=== PATIENT | female | born 1950 | race African-American/Black ===

== ENCOUNTER 2020-05-01 12:38 | Inpatient (IN) | payer OTHER ==
[2020-05-01] MEDS ORDERED: SODIUM CHLORIDE 1,000 ML IV STA ×2 (12:49→18:01)
[2020-05-01] MEDS ORDERED: ONDANSETRON 4 MG/2 ML VIAL IVPUSH ONE (12:49)
--- NOTE | 2020-05-01 12:49 | PDOC ---
Rapid Medical Evaluation Time Seen by Provider: 05/01/20 12:45 Medical Evaluation: 05/01/20 12:46 The patient presents to the ER for dyspghia, vomiting and dehydration. She was sent by Dr. Ramirez to be admitted. She states that she has a thyroid nodule which was diagnosed at [place]. Exam: epigastric discomfort Orders: labs, EKG, fluids, cxr; defer other imaging to provider Pt to proceed to the ER for further evaluation Discharge Disposition - Diagnosis Vomiting - Referrals - Patient Instructions - Post Discharge Activity
[2020-05-01] MEDS ORDERED: PANTOPRAZOLE SODIUM 40 MG VIAL IVPUSH ONE (14:31)
--- NOTE | 2020-05-01 15:07 | PDOC ---
History of Present Illness - General History Source: Patient Exam Limitations: No Limitations - History of Present Illness Initial Comments: 05/01/20 15:02 70-year-old female presents to the emergency room for evaluation of dysphasia weight loss, and weakness. Patient states over the past 4 months has lost 30 pounds and has been to [facility] for evaluation and was given PPIs and was told she had a hiatal hernia that needed to be followed up. Patient otherwise has no complaints of headache, chest pain, shortness of breath, fever or chills. Patient also has no complaints of abdominal pain dysuria or diarrhea. Patient does state intermittent dizziness with standing especially in the evening hours. Patient states when she drinks it feels like it stuck and shortly after intake will vomit. Patient also states the same for solids patient was also told she had a thyroid nodule based on ultrasound but denies any recommended follow-up Is this a multiple visit Asthma Patient?: No Timing/Duration: getting worse Severity: moderate Associated Symptoms: reports: loss of appetite, weakness <Leticia Aldana - Last Filed: 05/01/20 19:27> <Jake Grayson - Last Filed: 05/11/20 13:19> - General Chief Complaint: Dysphagia Stated Complaint: SENT BY PCP/VOMITING.NAUSEA Time Seen by Provider: 05/01/20 12:45 Past History - Travel History Traveled outside of the country in the last 30 days: No Close contact w/someone who was outside of country & ill: No - Medical History Asthma: Yes Cardiac Disorders: Yes (angina) COPD: No GI Disorders: Yes (GERD) HTN: Yes Hypercholesterolemia: Yes Psychiatric Problems: Yes (Anxiety) Thyroid Disease: Yes (thyroid nodules) - Immunization History Immunization Up to Date: Yes - Psycho-Social/Smoking History Patient Lives Alone: No Lives with/in: spouse/SO Smoking History: Never smoked - Substance Abuse Hx (Audit-C & DAST Scrn) How often the patient has a drink containing alcohol: Never Score: In Men: 4 or > Positive; In Women: 3 or > Positive: 0 Screen Result (Pos requires Nsg. Audit-10AR): Negative <Leticia Aldana - Last Filed: 05/01/20 19:27> <Jake Grayosn - Last Filed: 05/11/20 13:19> - Medical History Allergies/Adverse Reactions: Allergies Allergy/AdvReac Type Severity Reaction Status Date / Time amlodipine [From Norvasc] Allergy Verified 05/01/20 12:54 amoxicillin Allergy Verified 05/01/20 12:54 atorvastatin [From Lipitor] Allergy Verified 05/01/20 12:54 latex Allergy Verified 05/01/20 12:54 omeprazole Allergy Verified 05/01/20 12:54 Penicillins Allergy Verified 05/01/20 12:54 prochlorperazine Allergy Verified 05/01/20 12:54 [From Compazine] propranolol Allergy Verified 05/01/20 12:54 shellfish derived Allergy Verified 05/01/20 12:54 Sulfa (Sulfonamide Allergy Verified 05/01/20 12:54 Antibiotics) lactose AdvReac Verified 05/04/20 13:09 Review of Systems - Review of Systems Able to Perform ROS?: No Is the patient limited Kazakh proficient: No Constitutional: Yes: Loss of Appetite, Weakness, Weight Stable HEENTM: No: Symptoms Reported Respiratory: No: Symptoms reported Cardiac (ROS): No: Symptoms Reported ABD/GI: No: Symptoms Reported : No: Symptoms Reported Musculoskeletal: No: Symptoms Reported Integumentary: No: Symptoms Reported Neurological: No: Symptoms reported Endocrine: No: Symptoms Reported Hematologic/Lymphatic: No: Symptoms Reported <Leticia Aldana - Last Filed: 05/01/20 19:27> *Physical Exam - Vital Signs Last Vital Signs Temp Pulse Resp BP Pulse Ox 98.1 F 86 20 140/79 100 05/01/20 12:54 05/01/20 12:54 05/01/20 12:54 05/01/20 12:54 05/01/20 12:54 - Physical Exam General Appearance: Yes: Appropriately Dressed, Thin. No: Apparent Distress HEENT: negative: Pale Conjunctivae Neck: positive: Supple Respiratory/Chest: positive: Lungs Clear, Normal Breath Sounds. negative: Res piratory Distress, Accessory Muscle Use Cardiovascular: positive: Regular Rhythm, Regular Rate. negative: Murmur Gastrointestinal/Abdominal: positive: Soft. negative: Tenderness Extremity: positive: Normal Inspection Integumentary: positive: Normal Color, Dry, Warm Neurologic: positive: Motor Strength 5/5 (ambulatory) <Leticia Aldana - Last Filed: 05/01/20 19:27> - Vital Signs Last Vital Signs Temp Pulse Resp BP Pulse Ox 98.7 F 79 18 151/91 100 05/04/20 14:05 05/04/20 14:05 05/04/20 14:05 05/04/20 14:05 05/04/20 14:05 <Jake Grayson - Last Filed: 05/11/20 13:19> Heart Score/ECG Review - ECG Intrepretation Rhythm: Regular Rhythm (nsr 79, with pvc) <Leticia Aldana - Last Filed: 05/01/20 19:27> ED Treatment Course - LABORATORY CBC & Chemistry Diagram: 05/01/20 15:48 05/01/20 15:50 - RADIOLOGY Radiology Studies Ordered: Category Date Time Status NECK SOFT TISSUE [RAD] Stat Radiology 05/01/20 13:42 Ordered <Leticia Aldana - Last Filed: 05/01/20 19:27> - LABORATORY CBC & Chemistry Diagram: 05/04/20 09:44 05/04/20 09:44 - ADDITIONAL ORDERS Additional order review: 05/01/20 15:50 Urine Culture - Final Urine - Urine Clean Catch Normal Urogenital Aishwarya 05/01/20 15:48 RBC 5.16 MCV 78.4 L MCHC 31.1 L RDW 19.5 H MPV 8.9 Neutrophils % 51.2 Lymphocytes % 37.0 Monocytes % 8.8 Eosinophils % 1.1 Basophils % 1.9 - Medications Given in the ED: ED Medications Discontinued Medications Generic Name Dose Route Start Last Admin Trade Name Freq PRN Reason Stop Dose Admin Diphenhydramine HCl 25 mg 05/01/20 23:24 05/01/20 23:55 Benadryl Oral Solution - PO 05/01/20 23:25 25 mg ONCE ONE Administration Diphenhydramine HCl 25 mg 05/02/20 11:00 05/04/20 10:42 Benadryl Oral Solution - PO 25 mg TID PRN Administration ALLERGIES Sodium Chloride 1,000 mls @ 1,000 mls/hr 05/01/20 12:49 05/01/20 15:27 Normal Saline - IV 05/01/20 13:48 1,000 mls/hr ASDIR STA Administration Ceftriaxone Sodium 1 gm/ 50 mls @ 100 mls/hr 05/01/20 17:22 05/01/20 17:40 Dextrose IVPB 05/01/20 17:51 100 mls/hr ONCE ONE Administration Sodium Chloride 1,000 mls @ 1,000 mls/hr 05/01/20 18:01 05/01/20 19:38 Normal Saline - IV 05/01/20 19:00 1,000 mls/hr ASDIR STA Administration Sodium Chloride 1,000 mls @ 75 mls/hr 05/01/20 19:45 05/03/20 04:45 Normal Saline - IV 75 mls/hr ASDIR ELVIE Administration Ceftriaxone Sodium 1 gm/ 50 mls @ 100 mls/hr 05/02/20 10:00 05/04/20 09:52 Dextrose IVPB 100 mls/hr DAILY ELVIE Administration Protocol Potassium Chloride 10 meq in 100 mls @ 100 mls/hr 05/02/20 09:30 05/02/20 12:42 Potassium Chloride 10 Meq Premix Ivpb - IVPB 05/02/20 12:29 100 mls/hr Q60M ELVIE Administration Famotidine/Sodium Chloride 20 mg in 50 mls @ 100 mls/hr 05/02/20 22:00 04/06 10/24 09:51 Pepcid 20 Mg Premixed Ivpb - IVPB 100 mls/hr BID ELVIE Administration Potassium Chloride/Sodium Chloride 20 meq in 1,000 mls @ 75 mls/hr 05/03/20 12:45 05/04/20 04:28 1/2ns+20meq Kcl IV 75 mls/hr ASDIR ELVIE Administration Lorazepam 0.5 mg 05/01/20 23:44 05/01/20 23:55 Ativan Injection - IVPUSH 05/01/20 23:45 0.5 mg ONCE ONE Administration Lorazepam 0.5 mg 05/02/20 11:03 05/02/20 22:09 Ativan Injection - IM 0.5 mg Q6H PRN Administration ANXIETY Lorazepam 0.5 mg 05/03/20 20:34 05/03/20 21:10 Ativan Injection - IVPUSH 0.5 mg Q6H PRN Administration ANXIETY Melatonin 5 mg 05/01/20 20:15 05/01/20 21:48 Melatonin PO 05/01/20 20:16 Not Given ONCE ONE Mometasone Furoate 1 puff 05/02/20 22:00 05/02/20 12:23 Asmanex 220mcg - IH 1 puff BID ELVIE Administration Mometasone Furoate 1 puff 05/02/20 22:00 05/03/20 21:10 Asmanex 220mcg - IH Not Given HS ELVIE Nitroglycerin 0.3 mg 05/02/20 10:00 05/02/20 14:34 Nitro-Dur Patch - TD 0.3 mg DAILY ELVIE Administration Nitroglycerin 0.3 mg 05/02/20 15:30 05/04/20 09:53 Nitro-Dur Patch - TD 0.3 mg DAILY ELVIE Administration Ondansetron HCl 4 mg 05/01/20 12:49 05/01/20 15:27 Zofran Injection IVPUSH 05/01/20 12:50 4 mg ONCE ONE Administration Ondansetron HCl 4 mg 05/02/20 11:03 05/04/20 08:12 Zofran Injection IVPUSH 4 mg Q8H PRN Administration NAUSEA Pantoprazole Sodium 40 mg 05/01/20 14:31 05/01/20 15:27 Protonix Iv IVPUSH 05/01/20 14:32 40 mg ONCE ONE Administration Pantoprazole Sodium 40 mg 05/04/20 12:00 05/04/20 12:25 Protonix - PO Not Given DAILY ELVIE Potassium Chloride 40 meq 05/04/20 12:30 05/04/20 13:40 Potassium Chloride Oral Liquid PO 05/04/20 12:31 40 meq ONCE ONE Administration <Jake Grayson - Last Filed: 05/11/20 13:19> Medical Decision Making - Medical Decision Making 05/01/20 15:10 Chief complaint weight loss, poor appetite vomiting weakness over the past 4 months. Recently told she had a thyroid nodule along with a hiatal hernia and increased acid reflux Exam: Patient appears thin otherwise normal vital signs no abdominal tenderness distention or other acute findings. Plan: Labs, EKG, fluids thyroid stimulating hormone, and soft tissue neck. Will contact Dr. Ramirez who is requesting admission 05/01/20 17:24 called placed to pcp. I v ceftriaxone ordered. + UTI, u cx sent 05/01/20 17:25 Laboratory Tests 05/01/20 05/01/20 05/01/20 15:48 15:48 15:48 WBC 7.0 Hgb 12.6 Hct 40.5 RDW 19.5 H Plt Count 342 Absolute Neuts (auto) 3.6 Lymphocytes % 37.0 Monocytes % 8.8 PT with INR Pending INR Pending Sodium Potassium Chloride Carbon Dioxide Anion Gap BUN Est GFR (CKD-EPI)NonAf Lactic Acid Calcium Alkaline Phosphatase Total Protein Albumin Lipase TSH Urine Protein 1+ H Urine Ketones 1+ H Urine Nitrite Positive H Urine Bilirubin 2+ H Urine Urobilinogen 4.0 e.u/dl H Ur Leukocyte Esterase 1+ H Urine WBC (Auto) 81 U Epithel Cells (Auto) >36 05/01/20 05/01/20 15:50 15:50 WBC Hgb Hct RDW Plt Count Absolute Neuts (auto) Lymphocytes % Monocytes % PT with INR INR Sodium 140 Potassium 3.8 Chloride 106 Carbon Dioxide 21 Anion Gap 13 BUN 4.8 L Est GFR (CKD-EPI)NonAf 93.00 Lactic Acid Pending Calcium 9.7 Alkaline Phosphatase 136 H Total Protein 8.1 Albumin 3.7 Lipase 33 L TSH 0.01 L Urine Protein Urine Ketones Urine Nitrite Urine Bilirubin Urine Urobilinogen Ur Leukocyte Esterase Urine WBC (Auto) U Epithel Cells (Auto) 05/01/20 18:03 Laboratory Tests 05/01/20 05/01/20 05/01/20 15:48 15:48 15:50 WBC 7.0 Hgb 12.6 Hct 40.5 Neutrophils % 51.2 Lactic Acid Calcium 9.7 Magnesium 2.4 Total Bilirubin 1.0 AST 31 Alkaline Phosphatase 136 H Total Protein 8.1 Albumin 3.7 Lipase 33 L TSH 0.01 L Urine Protein 1+ H Urine Ketones 1+ H Urine Nitrite Positive H Urine Bilirubin 2+ H Ur Leukocyte Esterase 1+ H Urine WBC (Auto) 81 Urine RBC (Auto) 2 Urine Casts (Auto) 40 U Epithel Cells (Auto) >36 05/01/20 15:50 WBC Hgb Hct Neutrophils % Lactic Acid 4.5 H* Calcium Magnesium Total Bilirubin AST Alkaline Phosphatase Total Protein Albumin Lipase TSH Urine Protein Urine Ketones Urine Nitrite Urine Bilirubin Ur Leukocyte Esterase Urine WBC (Auto) Urine RBC (Auto) Urine Casts (Auto) U Epithel Cells (Auto) Pt ordered for ivf, blood cx, and 2nd lactic acid, Elevation maybe from starvation and dehydration. Pt given IV cef for uti. Will admit to hospitalist 05/01/20 18:29 Case discussed with "suleiman " [facility] team and accepted to service <Leticia Aldana - Last Filed: 05/01/20 19:27> - Medical Decision Making The patient was seen and evaluated in conjunction with DOUGLAS Aldana under my direct supervision, ancillary studies were reviewed. I independently int erviewed and evaluated the patient and I agree with the plan as outlined by DOUGLAS Aldana. <Jake Grayson - Last Filed: 05/11/20 13:19> Discharge - Discharge Information Problems reviewed: Yes - Admission Yes <Leticia Aldana - Last Filed: 05/01/20 19:27> <Jake Grayson - Last Filed: 05/11/20 13:19> - Discharge Information Clinical Impression/Diagnosis: Vomiting, Recent unintentional weight loss over several months, Dehydration, UTI (urinary tract infection), Elevated lactic acid level Disposition: HOME
[2020-05-01] MEDS ORDERED: PANTOPRAZOLE SODIUM 40 MG/100 ML BAG IVPB ONE (15:26)
[2020-05-01 16:56] LABS: BASO % 1.9 % (0-2.0); EOS % 1.1 % (0-4.5); HEMATOCRIT 40.5 % (32.4-45.2); HEMOGLOBIN 12.6 GM/dL (10.7-15.3); MCH 24.4 pg (25.7-33.7); MCHC 31.1 g/dl (32.0-36.0); MEAN CELL VOLUME 78.4 fl (80-96); MEAN PLT VOLUME 8.9 fl (7.5-11.1); MONO % 8.8 % (3.8-10.2); NEUT % 51.2 % (42.8-82.8); PLATELET COUNT 342 K/MM3 (134-434); RBC 5.16 M/mm3 (3.60-5.2); RDW 19.5 % (11.6-15.6)
[2020-05-01 17:00] LABS: EPI CELLS >36 /uL (0-25.1); HYALINE CASTS 40 /uL (0-3.1); URINE APPEARANCE CLOUDY; URINE BILIRUBIN 2+ (NEGATIVE); URINE COLOR DK YELLOW; URINE GLUCOSE (UA) NEGATIVE (NEGATIVE); URINE KETONE 1+ (NEGATIVE); URINE LEUK ESTERASE 1+ (NEGATIVE); URINE NITRITE POSITIVE (NEGATIVE); URINE PROTEIN 1+ (NEGATIVE); URINE RBC 2 /uL (0-23.9); URINE UROBILINOGEN 4.0 E.U/dl mg/dL (0.2-1.0); URINE WBC 81 /uL (0-25.8)
[2020-05-01 17:13] LABS: ALBUMIN 3.7 g/dl (3.4-5.0); BLOOD UREA NITROGEN 4.8 mg/dL (7-18); CALCIUM 9.7 mg/dL (8.5-10.1); CREATININE 0.6 mg/dL (0.55-1.3); MAGNESIUM 2.4 mg/dL (1.8-2.4); POTASSIUM 3.8 mmol/L (3.5-5.1); TOT PROT 8.1 g/dl (6.4-8.2)
[2020-05-01] MEDS ORDERED: CEFTRIAXONE 1 GM in DEXTROSE 5%-WATER - 50 ML IVPB ONE (17:22)
--- NOTE | 2020-05-01 19:42 | HP ---
CHIEF COMPLAINT:weight loss,difficulty swallowing ,anorexia and weakness PCP:Dr. Ramirez HISTORY OF PRESENT ILLNESS: 70-year-old female with a past medical history of anigina, hypertension, asthma , acid reflux and hiatal hernia who presented to the emergency room for evaluation of dysphasia, weight loss of 30 pounds in 2 months and weakness. Patient states over the past 2 months she has lost 30 pounds and she has been to [facility] for evaluation about 2 weeks ago and she was given PPIs and she was told she has a hiatal hernia that needed to be followed up. Patient otherwise has no current complaints of a headache, chest pain, shortness of breath, fever or chills. Patient also has no complaints of abdominal pain dysuria or diarrhea at this time. Patient does state intermittent dizziness with standing especially in the evening hours. Patient states when she drinks it feels like it gets stuck and shortly after intake will vomit. Patient also states the same for solids. Patient was also told she had a thyroid nodule based on ultrasound but denies any recommended follow-up. She reports she only takes only a clear diet due to her diffciculty swallowing. ER coursenotable for: (1) UA w/ positive nitrite, 1+ leukoesterase. WBC 7.0, currently afebrile, no hypotension. She received a dose of IV Ceftriaxone 1 gm. Urine and blood cultures are pending. (2) Elevated lactic acid level 4.5 , repeat lactic acid level 1.1 after receiving IVF (3) TSH- .01 (low) Recent Travel: no PAST MEDICAL HISTORY: angina hypertension asthma acid reflux PAST SURGICAL HISTORY: none Social History: Smoking:no Alcohol:no Drugs: no Family History Father had diabetes and throat cancer. Mother had hypertension and colon cancer. Allergies amlodipine [From Norvasc] Allergy (Verified 05/01/20 12:54) amoxicillin Allergy (Verified 05/01/20 12:54) atorvastatin [From Lipitor] Allergy (Verified 05/01/20 12:54) latex Allergy (Verified 05/01/20 12:54) omeprazole Allergy (Verified 05/01/20 12:54) Penicillins Allergy (Verified 05/01/20 12:54) prochlorperazine [From Compazine] Allergy (Verified 05/01/20 12:54) propranolol Allergy (Verified 05/01/20 12:54) Sulfa (Sulfonamide Antibiotics) Allergy (Verified 05/01/20 12:54) HOME MEDICATIONS: nitropatch q24 flovent albuterol diltiazem REVIEW OF SYSTEMS CONSTITUTIONAL: Absent: fever, chills, diaphoresis, generalized weakness, malaise, loss of appetite, weight loss HEENT: Absent: rhinorrhea, nasal congestion, throat pain, throat swelling, difficulty swallowing, mouth swelling, ear pain, eye pain, visual changes CARDIOVASCULAR: Absent: chest pain, syncope, palpitations, irregular heart rate, lightheadedness, peripheral edema RESPIRATORY: Absent: cough, shortness of breath, dyspnea with exertion, orthopnea, wheezing, stridor, hemoptysis GASTROINTESTINAL: Absent: abdominal pain, abdominal distension, nausea, vomiting, diarrhea, constipation, melena, hematochezia GENITOURINARY: Absent: dysuria, frequency, urgency, hesitancy, hematuria, flank pain, genital pain MUSCULOSKELETAL: Absent: myalgia, arthralgia, joint swelling, back pain, neck pain SKIN: Absent: rash, itching, pallor HEMATOLOGIC/IMMUNOLOGIC: Absent: easy bleeding, easy bruising, lymphadenopathy, frequent infections ENDOCRINE: Absent: unexplained weight gain, unexplained weight loss, heat intolerance, cold intolerance NEUROLOGIC: Absent: headache, focal weakness or paresthesias, dizziness, unsteady gait, seizure, mental status changes, bladder or bowel incontinence PSYCHIATRIC: Absent: anxiety, depression, suicidal or homicidal ideation, hallucinations. PHYSICAL EXAMINATION Vital Signs - 24 hr 05/01/20 05/01/20 12:54 14:10 Temperature 98.1 F Pulse Rate 86 Respiratory 20 Rate Blood Pressure 140/79 O2 Sat by Pulse 100 100 Oximetry (%) Laboratory Results - last 24 hr 05/01/20 05/01/20 05/01/20 15:48 15:48 15:48 WBC 7.0 RBC 5.16 Hgb 12.6 Hct 40.5 MCV 78.4 L MCH 24.4 L MCHC 31.1 L RDW 19.5 H Plt Count 342 MPV 8.9 Absolute Neuts (auto) 3.6 Neutrophils % 51.2 Lymphocytes % 37.0 Monocytes % 8.8 Eosinophils % 1.1 Basophils % 1.9 Nucleated RBC % 0 PT with INR Cancelled INR Cancelled Sodium Potassium Chloride Carbon Dioxide Anion Gap BUN Creatinine Est GFR (CKD-EPI)AfAm Est GFR (CKD-EPI)NonAf Random Glucose Lactic Acid Calcium Magnesium Total Bilirubin AST ALT Alkaline Phosphatase Total Protein Albumin Lipase TSH Urine Color Dk yellow Urine Appearance Cloudy Urine pH 6.0 Ur Specific [place] 1.031 Urine Protein 1+ H Urine Glucose (UA) Negative Urine Ketones 1+ H Urine Blood Negative Urine Nitrite Positive H Urine Bilirubin 2+ H Urine Urobilinogen 4.0 e.u/dl H Ur Leukocyte Esterase 1+ H Urine WBC (Auto) 81 Urine RBC (Auto) 2 Urine Casts (Auto) 40 U Epithel Cells (Auto) >36 05/01/20 05/01/20 15:50 15:50 WBC RBC Hgb Hct MCV MCH MCHC RDW Plt Count MPV Absolute Neuts (auto) Neutrophils % Lymphocytes % Monocytes % Eosinophils % Basophils % Nucleated RBC % PT with INR INR Sodium 140 Potassium 3.8 Chloride 106 Carbon Dioxide 21 Anion Gap 13 BUN 4.8 L Creatinine 0.6 Est GFR (CKD-EPI)AfAm 107.79 Est GFR (CKD-EPI)NonAf 93.00 Random Glucose 92 Lactic Acid 4.5 H* Calcium 9.7 Magnesium 2.4 Total Bilirubin 1.0 AST 31 ALT 16 Alkaline Phosphatase 136 H Total Protein 8.1 Albumin 3.7 Lipase 33 L TSH 0.01 L Urine Color Urine Appearance Urine pH Ur Specific [place] Urine Protein Urine Glucose (UA) Urine Ketones Urine Blood Urine Nitrite Urine Bilirubin Urine Urobilinogen Ur Leukocyte Esterase Urine WBC (Auto) Urine RBC (Auto) Urine Casts (Auto) U Epithel Cells (Auto) ASSESSMENT/PLAN: 70-year-old female with a past medical history of anigina, hypertension, asthma , acid reflux and hiatal hernia who presented to the emergency room for evaluation of dysphasia, weight loss of 30 pounds in 2 months and weakness. She was found to have a UTI and TSH consistent with hyperthyroidism. She is being admitted to the Medicine Service for further medical management and evaluation by Gastroenterology and Endocrinology. 1. uti currently afebrile, WBC normal, initial lactic acid level 4.5, repeat 1.1 with IVF urine and blood culture pending c/w IV Ceftriaxone 1 gm daily consider ID consult 2. hyperthroidism TSH 0.01 has a thyroid nodule + weight loss no tachycardia pending free t3 and t4 labs in am Endocrinology- Dr. Raya consulted 3. dysphagia, abdominal pain, hiatal hernia GI consulted- Dr. Junior c/w with full liquid diet as tolerating and IVF NS @75cc/hr 4. hypertension controlled (not on meds) 5. hx angina currently asymptomatic c/w transdermal nitropatch q24hr 6. asthma no acute exacerbation c/w albuterol nebulaizer as needed prn Records from recent hospitalization at [facility] and [facility] will need to be obtained in the am for review of prior studies done recently. DVT Prophylaxis SCD's FEN IVF NS @75cc/hr BMP daily, replete electrolytes as needed full liquid diet Visit type - Medication Review Med list reviewed for High Risk Meds patients 65 and older: Yes - Emergency Visit Emergency Visit: Yes ED Registration Date: 05/01/20 Care time: The patient presented to the Emergency Department on the above date and was hospitalized for further evaluation of their emergent condition. - New Patient This patient is new to me today: Yes Date on this admission: 05/02/20 - Critical Care Critical Care patient: No
[2020-05-01] MEDS: SODIUM CHLORIDE 1,000 ML IV SCH (19:58)
[2020-05-01] MEDS ORDERED: MELATONIN 5 MG TABLETS PO ONE (20:15)
[2020-05-01] MEDS ORDERED: ALBUTEROL SO4 0.083% IH SOL 2.5 MG/3 ML VIAL.NEB. NEB PRN (20:45)
[2020-05-01] MEDS ORDERED: ALBUTEROL SO4 HFA INHALER IH PRN (21:01)
[2020-05-01] MEDS ORDERED: MELATONIN 5 MG TABLETS ONE (21:42)
[2020-05-01] MEDS ORDERED: diphenhydrAMINE HCL 12.5 MG/5 ML UNIT-DOSE CUPS PO ONE (23:24)
[2020-05-01] MEDS ORDERED: LORazepam 2 MG/ML SDV VIAL IVPUSH ONE (23:44)
[2020-05-02 00:14] VITALS: BMI 21.5
[2020-05-02 08:34] LABS: HEMATOCRIT 33.7 % (32.4-45.2); HEMOGLOBIN 10.6 GM/dL (10.7-15.3); MCH 24.1 pg (25.7-33.7); MCHC 31.6 g/dl (32.0-36.0); MEAN CELL VOLUME 76.3 fl (80-96); MEAN PLT VOLUME 8.2 fl (7.5-11.1); PLATELET COUNT 317 K/MM3 (134-434); RBC 4.41 M/mm3 (3.60-5.2); RDW 19.2 % (11.6-15.6); WHITE BLOOD COUNT 5.8 K/mm3 (4.0-10.0)
[2020-05-02 09:14] LABS: CALCIUM 8.6 mg/dL (8.5-10.1); CREATININE 0.5 mg/dL (0.55-1.3); MAGNESIUM 2.1 mg/dL (1.8-2.4)
[2020-05-02 09:16] LABS: BLOOD UREA NITROGEN 2.4 mg/dL (7-18); POTASSIUM 2.9 mmol/L (3.5-5.1)
--- NOTE | 2020-05-02 09:21 | EKG ---
Test Reason : Blood Pressure : / mmHG Vent. Rate : 065 BPM Atrial Rate : 065 BPM P-R Int : 156 ms QRS Dur : 078 ms QT Int : 418 ms P-R-T Axes : 047 -07 -15 degrees QTc Int : 434 ms SINUS RHYTHM WITH OCCASIONAL PREMATURE VENTRICULAR COMPLEXES OTHERWISE NORMAL ECG NO PREVIOUS ECGS AVAILABLE Confirmed by MD ANTONIO, YESY ([id number]) on 05/02/2020 9:20:32 AM Referred By: Confirmed By:YESY ALVAREZ MD
[2020-05-02] MEDS ORDERED: PT OWN MED DRAWER 7, Y5N ONE ×2 (09:25→14:06)
[2020-05-02] MEDS ORDERED: cefTRIAXone SODIUM 1 GM VIAL ONE (09:26)
[2020-05-02] MEDS ORDERED: DEXTROSE 5%-WATER - 50 ML IVPB ONE (09:26)
[2020-05-02] MEDS: KCL 10 MEQ IVPB 10 MEQ/100 ML INFUS.BAG IVPB SCH ×3 (09:33→12:42)
[2020-05-02] MEDS: CEFTRIAXONE 1 GM in DEXTROSE 5%-WATER - 50 ML IVPB SCH (09:33)
--- NOTE | 2020-05-02 10:21 | PN ---
Progress Note (short form) - Note Progress Note: 70 yo lady H GERD, anxiety, asthma, high cholesterol, HTN, MAURICIO, s/p thyroid surgery for benign nodule in 1980s has had long history of difficulty swallowing solids, pills on 02.22.20 had EGD at [facility] for esophageal dysmoltility and Schatzki ring, s/p balloon dilation and botulism toxin injection since then unable to eat and drink , vomits food/drink up within minutes of swallowing it since then has had severeal hospital visits: 02.26.20 er visit for dyspnea after EGD-CT neck showed thyroid nodules, CT chest with iv contrast was negative other than small hiatal hernia 03.07.[address] [place] [address] abd unremarkable 03.09.20-03.14.20 [facility] for same symptoms, but no work up was done due to acute asthma exacerbation 03.29.20 [place] hospital admission-HIDA scan negative, EGD again done-small hiatal hernia, multiple gastric polyps biopsied mild chronic gastritis and carditis, reflux esophagitis, all negative for metaplasia, dysplasia 04.24.20 thyroid us bilateral solid nodules max 2.8 cm, thyroid cyst 4.5x5mm now back since unable to swallow and everything comes up lost about 30 pounds in past months CBC, BMP 05/02/20 07:48 05/02/20 07:48 Vital Signs Period Temp Pulse Resp BP Sys/Black Pulse Ox Last 24 Hr 97.6 F-98.6 F 62-86 18-20 112-140/69-79 98-100 s1s2 rrr lungs cta abd soft non tender, upon pressing on epigastrium patient vomited clear yellow gastric material with some curdled material no edema, positive pulses aaox3 anxious but not terribly imp esophageal dysmoitility? achalasia esophagram requested give zofran before test GI follow up prn johann, h1 dale clear liquids for now hyperthyroidism endo consult requested hypokalemia replete
[2020-05-02] MEDS ORDERED: LORazepam 2 MG/ML SDV VIAL IM PRN (11:03)
[2020-05-02] MEDS: ONDANSETRON 4 MG/2 ML VIAL IVPUSH PRN (11:29)
[2020-05-02] MEDS: diphenhydrAMINE HCL 12.5 MG/5 ML UNIT-DOSE CUPS PO PRN ×2 (14:11→22:10)
[2020-05-02] MEDS: NITROGLYCERIN 0.3 MG/HOUR TD PATCH TD SCH ×3 (14:15→14:35)
--- NOTE | 2020-05-02 17:27 | CON.GI ---
Consult Consult Specialty:: Gi - History of Present Illness History of Present Illness: 70 y/o F with PMH of Achalasia s/p Botox and balloon dilation last February at [facility]. The reports are not available for review. She has perisistetn dysphagia , nausea and vomiting. Yesterday she tolerated clear liquids. - Smoking History Smoking history: Never smoked Home Medications - Allergies Allergies/Adverse Reactions: Allergies Allergy/AdvReac Type Severity Reaction Status Date / Time amlodipine [From Norvasc] Allergy Verified 05/01/20 12:54 amoxicillin Allergy Verified 05/01/20 12:54 atorvastatin [From Lipitor] Allergy Verified 05/01/20 12:54 latex Allergy Verified 05/01/20 12:54 omeprazole Allergy Verified 05/01/20 12:54 Penicillins Allergy Verified 05/01/20 12:54 prochlorperazine Allergy Verified 05/01/20 12:54 [From Compazine] propranolol Allergy Verified 05/01/20 12:54 shellfish derived Allergy Verified 05/01/20 12:54 Sulfa (Sulfonamide Allergy Verified 05/01/20 12:54 Antibiotics) - Home Medications Home Medications: Ambulatory Orders Famotidine [Pepcid -] 40 mg PO DAILY 05/01/20 Metoclopramide HCl 5 mg PO ASDIR 05/01/20 Physical Exam-GI Vital Signs: Vital Signs Temperature 97.7 F 05/02/20 14:24 Pulse Rate 69 05/02/20 14:24 Respiratory Rate 20 05/02/20 14:24 Blood Pressure 119/66 05/02/20 14:24 O2 Sat by Pulse Oximetry (%) 99 05/02/20 14:24 Constitutional: Yes: Well Nourished Eyes: Yes: Conjunctiva Clear, Occular Prosthesis Neck: Yes: Supple Cardiovascular: Yes: Regular Rate and Rhythm Respiratory: Yes: CTA Bilaterally ...Palpate: Yes: Soft. No: Firm/Rigid, Guarding, Hepatomegaly, Mass, Pulsatile Mass, Splenomegaly, Tenderness Labs: CBC, BMP 05/02/20 07:48 05/02/20 07:48 INR, PTT INR Cancelled 05/01/20 15:48 Problem List - Problems (1) Achalasia Assessment/Plan: R> will need to review previous endoscopy reports, if she failed both Botox and balloon dilation may need surgical evaluation for Hellers myotomy Code(s): K22.0 - ACHALASIA OF CARDIA (2) Dehydration Code(s): E86.0 - DEHYDRATION
[2020-05-02] MEDS ORDERED: MOMETASONE FUROATE 220 MCG/IH INHALER IH SCH (22:00)
[2020-05-02] MEDS: FAMOTIDINE 20 MG/50 ML IVPB 20 MG/50 ML MG IVPB SCH (22:09)
[2020-05-02] MEDS: MOMETASONE FUROATE 220 MCG/IH INHALER IH SCH (22:41)
[2020-05-02] MEDS: SODIUM CHLORIDE 1,000 ML IV SCH (22:41)
[2020-05-03] MEDS: SODIUM CHLORIDE 1,000 ML IV SCH (04:45)
[2020-05-03 08:40] LABS: BASO % 0.9 % (0-2.0); EOS % 3.7 % (0-4.5); HEMATOCRIT 34.2 % (32.4-45.2); HEMOGLOBIN 10.4 GM/dL (10.7-15.3); LYMPH % 36.8 % (8-40); MCH 23.7 pg (25.7-33.7); MCHC 30.3 g/dl (32.0-36.0); MEAN CELL VOLUME 78.1 fl (80-96); MEAN PLT VOLUME 8.2 fl (7.5-11.1); MONO % 9.3 % (3.8-10.2); NEUT % 49.3 % (42.8-82.8); PLATELET COUNT 285 K/MM3 (134-434); RBC 4.38 M/mm3 (3.60-5.2); RDW 19.5 % (11.6-15.6); WHITE BLOOD COUNT 6.3 K/mm3 (4.0-10.0)
[2020-05-03 09:03] LABS: ALBUMIN 2.6 g/dl (3.4-5.0); BILIRUBIN,TOTAL 1.2 mg/dL (0.2-1); CALCIUM 8.4 mg/dL (8.5-10.1); CREATININE 0.4 mg/dL (0.55-1.3); POTASSIUM 3.2 mmol/L (3.5-5.1)
[2020-05-03 09:04] LABS: TOT PROT 5.8 g/dl (6.4-8.2)
[2020-05-03] MEDS ORDERED: PT OWN MED DRAWER 7, Y5N ONE (09:40)
[2020-05-03] MEDS ORDERED: DEXTROSE 5%-WATER - 50 ML IVPB ONE (09:40)
[2020-05-03] MEDS ORDERED: cefTRIAXone SODIUM 1 GM VIAL ONE (09:40)
[2020-05-03] MEDS: FAMOTIDINE 20 MG/50 ML IVPB 20 MG/50 ML MG IVPB SCH ×2 (09:45→21:10)
[2020-05-03] MEDS: CEFTRIAXONE 1 GM in DEXTROSE 5%-WATER - 50 ML IVPB SCH (09:46)
[2020-05-03] MEDS: NITROGLYCERIN 0.3 MG/HOUR TD PATCH TD SCH (09:46)
--- NOTE | 2020-05-03 12:43 | PN ---
Progress Note (short form) - Note Progress Note: 70 yo lady PMH GERD, anxiety, asthma, high cholesterol, HTN, MAURICIO, s/p thyroid surgery for benign nodule in CBC, BMP 05/03/20 07:55 05/03/20 07:55 Vital Signs Period Temp Pulse Resp BP Sys/Black Pulse Ox Last 24 Hr 97.7 F-98.6 F 66-75 18-20 103-119/64-76 98-99 s1s2 rrr lungs cta abd soft non tender no edema, positive pulses aaox3 anxious but not terribly imp esophageal dysmoitility? achalasia esophagram report still pending prn rosalio helps will get records from [facility] regarding initial egd report and procedure hyperthyroidism endo consult requested hypokalemia replete tentative dc tomorrow if no further procedure planned and able to drink liquids with close outpt follow up
[2020-05-03] MEDS: diphenhydrAMINE HCL 12.5 MG/5 ML UNIT-DOSE CUPS PO PRN ×2 (14:05→21:10)
[2020-05-03] MEDS: SODIUM CHLORIDE 0.45%/POT 20 MEQ/1,000 ML INFUS.BAG IV SCH (14:12)
--- NOTE | 2020-05-03 16:24 | PN.GI ---
GI Progress Note Subjective: tolerating clear liquids, no nausea and vomiting, requested medical records from [facility] - Objective Vital Signs: Vital Signs Temperature 97.8 F 05/03/20 14:44 Pulse Rate 63 05/03/20 14:44 Respiratory Rate 05/03/20 14:44 Blood Pressure 131/68 05/03/20 14:44 O2 Sat by Pulse Oximetry (%) 100 05/03/20 14:44 Constitutional: Well Nourished Eyes: Yes: Conjunctiva Clear HENT: Yes: Atraumatic Neck: Yes: Supple Cardiovascular: Yes: Regular Rate and Rhythm Respiratory: Yes: CTA Bilaterally ...Palpate: Yes: Soft. No: Firm/Rigid, Guarding, Hepatomegaly, Tenderness Labs: CBC, BMP 05/03/20 07:55 05/03/20 07:55 INR, PTT INR Cancelled 05/01/20 15:48 Problem List - Problems (1) Achalasia Assessment/Plan: R> await medical records which was requested today Code(s): K22.0 - ACHALASIA OF CARDIA (2) Dehydration Assessment/Plan: continue IV hydration Code(s): E86.0 - DEHYDRATION
[2020-05-03] MEDS ORDERED: LORazepam 2 MG/ML SDV VIAL IVPUSH PRN (20:34)
[2020-05-03] MEDS: MOMETASONE FUROATE 220 MCG/IH INHALER IH SCH (21:10)
--- NOTE | 2020-05-03 22:35 | CONSULT ---
Consult Consult Specialty:: Endocrine Referred by:: Lucila BEGUM Reason for Consultation:: abnormal thyroid function - History of Present Illness Chief Complaint: nausea vomiting difficulty swallowing History of Present Illness: 70 y female,pmh thyroid nodule,achalasia,sp >30 lb weight loss,htn,asthma,angina,admitted with nausea vomiting and difficulty swallowing,found to have abnormal tfts,she states she had part of the thyroid removed and found to have a nodule on the thyroid in the past. denies family history of thyroid cancer.denies heat intolerance,or tremors. - Smoking History Smoking history: Never smoked Home Medications - Allergies Allergies/Adverse Reactions: Allergies Allergy/AdvReac Type Severity Reaction Status Date / Time amlodipine [From Norvasc] Allergy Verified 05/01/20 12:54 amoxicillin Allergy Verified 05/01/20 12:54 atorvastatin [From Lipitor] Allergy Verified 05/01/20 12:54 latex Allergy Verified 05/01/20 12:54 omeprazole Allergy Verified 05/01/20 12:54 Penicillins Allergy Verified 05/01/20 12:54 prochlorperazine Allergy Verified 05/01/20 12:54 [From Compazine] propranolol Allergy Verified 05/01/20 12:54 shellfish derived Allergy Verified 05/01/20 12:54 Sulfa (Sulfonamide Allergy Verified 05/01/20 12:54 Antibiotics) - Home Medications Home Medications: Ambulatory Orders Famotidine [Pepcid -] 40 mg PO DAILY 05/01/20 Metoclopramide HCl 5 mg PO ASDIR 05/01/20 Review of Systems - Review of Systems Constitutional: reports: Lethargy, Unintentional Wgt. Loss Eyes: reports: No Symptoms HENT: reports: No Symptoms Neck: reports: Swollen Glands Cardiovascular: reports: Shortness of Breath Respiratory: reports: Exercise Intolerance, SOB Gastrointestinal: reports: Bloating, Dysphagia, Indigestion, Vomiting Genitourinary: reports: No Symptoms Breasts: reports: No Symptoms Reported Musculoskeletal: reports: Muscle Weakness Integumentary: reports: No Symptoms Neurological: reports: Headache, Weakness Endocrine: reports: Unexplained Weight Loss Physical Exam Vital Signs: Vital Signs Temperature 98.4 F 05/03/20 21:09 Pulse Rate 77 05/03/20 21:09 Respiratory Rate 18 05/03/20 21:09 Blood Pressure 113/66 05/03/20 21:09 O2 Sat by Pulse Oximetry (%) 98 05/03/20 21:09 Neck: Yes: Trachea Midline, Tenderness Labs: CBC, BMP 05/03/20 07:55 05/03/20 07:55 Problem List - Problems (1) Thyroid nodule Problems reviewed: Yes Code(s): E04.1 - NONTOXIC SINGLE THYROID NODULE (2) Thyroid nodule Code(s): E04.1 - NONTOXIC SINGLE THYROID NODULE (3) Achalasia Code(s): K22.0 - ACHALASIA OF CARDIA (4) Dehydration Code(s): E86.0 - DEHYDRATION (5) Elevated lactic acid level Code(s): R79.89 - OTHER SPECIFIED ABNORMAL FINDINGS OF BLOOD CHEMISTRY (6) Recent unintentional weight loss over several months Code(s): R63.4 - ABNORMAL WEIGHT LOSS (7) UTI (urinary tract infection) Code(s): N39.0 - URINARY TRACT INFECTION, SITE NOT SPECIFIED Assessment/Plan Current Active Problems nontoxic thyroid nodule hyperthyroidism of hyperemises Achalasia (Acute) Dehydration (Acute) Elevated lactic acid level (Acute) Recent unintentional weight loss over several months (Acute) UTI (urinary tract infection) (Acute) Vomiting (Acute) Abnormal Lab Results 05/03/20 05/03/20 07:55 07:55 Hgb 10.4 L MCV 78.1 L MCH 23.7 L MCHC 30.3 L RDW 19.5 H Sodium 146 H Potassium 3.2 L Chloride 114 H BUN 1.0 L* Creatinine 0.4 L Calcium 8.4 L Total Bilirubin 1.2 H AST 12 L ALT 12 L Total Protein 5.8 L Albumin 2.6 L Laboratory Results - last 24 hr 05/01/20 05/02/20 05/03/20 21:30 07:48 07:55 WBC 6.3 RBC 4.38 Hgb 10.4 L Hct 34.2 MCV 78.1 L MCH 23.7 L MCHC 30.3 L RDW 19.5 H Plt Count 285 MPV 8.2 Absolute Neuts (auto) 3.1 Neutrophils % 49.3 Lymphocytes % 36.8 Monocytes % 9.3 Eosinophils % 3.7 D Basophils % 0.9 Nucleated RBC % 0 Sodium Potassium Chloride Carbon Dioxide Anion Gap BUN Creatinine Est GFR (CKD-EPI)AfAm Est GFR (CKD-EPI)NonAf Random Glucose Calcium Total Bilirubin AST ALT Alkaline Phosphatase Total Protein Albumin Free T3 3.2 COVID-19 (SUDHIR) Not detected 05/03/20 07:55 WBC RBC Hgb Hct MCV MCH MCHC RDW Plt Count MPV Absolute Neuts (auto) Neutrophils % Lymphocytes % Monocytes % Eosinophils % Basophils % Nucleated RBC % Sodium 146 H Potassium 3.2 L Chloride 114 H Carbon Dioxide 21 Anion Gap 11 BUN 1.0 L* Creatinine 0.4 L Est GFR (CKD-EPI)AfAm 123.17 Est GFR (CKD-EPI)NonAf 106.27 Random Glucose 80 Calcium 8.4 L Total Bilirubin 1.2 H AST 12 L ALT 12 L Alkaline Phosphatase 99 Total Protein 5.8 L Albumin 2.6 L Free T3 COVID-19 (SUDHIR) Laboratory Tests 05/01/20 05/02/20 05/02/20 15:50 07:48 07:48 TSH 0.01 L Free T4 1.18 Free T3 3.2 plan: once vomiting subsides repeat tsh free t4 as outpatient follow up sono neck outpatient euthyroid
[2020-05-04] MEDS: SODIUM CHLORIDE 0.45%/POT 20 MEQ/1,000 ML INFUS.BAG IV SCH (04:28)
[2020-05-04] MEDS: ONDANSETRON 4 MG/2 ML VIAL IVPUSH PRN (08:12)
--- NOTE | 2020-05-04 09:09 | PN ---
Progress Note (short form) - Note Progress Note: 70 yo lady PMH GERD, anxiety, asthma, high cholesterol, HTN, MAURICIO, s/p thyroid surgery for benign nodule in Vital Signs Period Temp Pulse Resp BP Sys/Black Pulse Ox Last 24 Hr 97.8 F-98.5 F 63-77 18-20 113-131/65-69 98-100 s1s2 rrr lungs cta abd soft non tender no edema, positive pulses aaox3 anxious but not terribly imp esophageal dysmoitility? achalasia esophagram shows GERD, small hiatal hernia with possible schatzki ring jose luis santamaria helps will get records from [facility] regarding initial egd report and procedure-called them again today hyperthyroidism endo consult appreciated, will follow as outpt hypokalemia repleted continue oral K at home tentative dc today after discussion with gi tolerating liquids without vomiting will need close follow up
[2020-05-04] MEDS ORDERED: PT OWN MED DRAWER 7, Y5N ONE (09:47)
[2020-05-04] MEDS ORDERED: cefTRIAXone SODIUM 1 GM VIAL ONE (09:47)
[2020-05-04] MEDS ORDERED: DEXTROSE 5%-WATER - 50 ML IVPB ONE (09:47)
[2020-05-04] MEDS: FAMOTIDINE 20 MG/50 ML IVPB 20 MG/50 ML MG IVPB SCH (09:51)
[2020-05-04] MEDS: CEFTRIAXONE 1 GM in DEXTROSE 5%-WATER - 50 ML IVPB SCH (09:52)
[2020-05-04] MEDS: NITROGLYCERIN 0.3 MG/HOUR TD PATCH TD SCH (09:53)
[2020-05-04] MEDS: diphenhydrAMINE HCL 12.5 MG/5 ML UNIT-DOSE CUPS PO PRN (10:42)
[2020-05-04 10:59] LABS: EOS % 5.6 % (0-4.5); HEMATOCRIT 34.5 % (32.4-45.2); HEMOGLOBIN 10.6 GM/dL (10.7-15.3); LYMPH % 30.1 % (8-40); MCH 24.2 pg (25.7-33.7); MCHC 30.9 g/dl (32.0-36.0); MEAN CELL VOLUME 78.4 fl (80-96); MEAN PLT VOLUME 8.5 fl (7.5-11.1); NEUT % 53.3 % (42.8-82.8); PLATELET COUNT 281 K/MM3 (134-434); RDW 19.1 % (11.6-15.6); WHITE BLOOD COUNT 5.9 K/mm3 (4.0-10.0)
[2020-05-04 11:32] LABS: ALBUMIN 2.8 g/dl (3.4-5.0); ALK PHOS 105 U/L (45-117); ANION GAP 8 MMOL/L (8-16); BILIRUBIN,TOTAL 0.4 mg/dL (0.2-1); CALCIUM 8.6 mg/dL (8.5-10.1); CHLORIDE 112 mmol/L (98-107); CO2 22 mmol/L (21-32); CREATININE 0.5 mg/dL (0.55-1.3); GLUCOSE,RANDOM 85 mg/dL (74-106); POTASSIUM 3.2 mmol/L (3.5-5.1); SGOT/AST 43 U/L (15-37); SGPT/ALT 26 U/L (13-61); SODIUM 143 mmol/L (136-145)
--- NOTE | 2020-05-04 11:49 | PN ---
Progress Note (short form) - Note Progress Note: Barium esophagram revealed a small hiatal hernia and possible schatzkis ring R> agree with possible discharge soft diet maintain on Pantoprazole 40mg bid and Reglan 5mg 30 min ac Problem List - Problems (1) Achalasia Code(s): K22.0 - ACHALASIA OF CARDIA (2) Dehydration Code(s): E86.0 - DEHYDRATION
[2020-05-04 11:58] LABS: BLOOD UREA NITROGEN < 1.0 mg/dL (7-18)
[2020-05-04] MEDS: PANTOPRAZOLE 40 MG TABLET PO SCH ×2 (12:17→12:25)
[2020-05-04] MEDS ORDERED: POTASSIUM CHLORIDE ORAL LIQUID 20 MEQ/15 ML PO ONE (12:30)
--- NOTE | 2020-05-04 12:31 | DS ---
Physical Examination Vital Signs: Vital Signs Temperature 97.7 F 05/04/20 09:43 Pulse Rate 76 05/04/20 09:43 Respiratory Rate 18 05/04/20 09:43 Blood Pressure 135/79 05/04/20 09:43 O2 Sat by Pulse Oximetry (%) 100 05/04/20 09:43 Constitutional: Yes: Calm, Thin Eyes: Yes: EOM Intact HENT: Yes: Normocephalic Neck: Yes: Trachea Midline Cardiovascular: Yes: Regular Rate and Rhythm Respiratory: Yes: CTA Bilaterally Gastrointestinal: Yes: Normal Bowel Sounds, Soft Labs: CBC, BMP 05/04/20 09:44 05/04/20 09:44 Discharge Summary Problems reviewed: Yes Reason For Visit: UTI Current Active Problems Achalasia (Acute) Dehydration (Acute) Elevated lactic acid level (Acute) Recent unintentional weight loss over several months (Acute) Thyroid nodule (Acute) Thyroid nodule (Acute) UTI (urinary tract infection) (Acute) Vomiting (Acute) Hospital Course: admitted for inability to eat and dehydration due to esophageal dysmoitility? achalasia feels better after iv hydration and diet is at full liquids at present esophagram shows GERD, small hiatal hernia with possible schatzki ring prn zofran helps will get records from [place] regarding initial egd report and procedure-can dc home with close outpt folow up and possible repeat egd hyperthyroidism-will need to recheck and monitor hypokalemia-repleted, continue oral K at home - Instructions Referrals: Yvonne Ramirez MD [Primary Care Provider] - Disposition: HOME - Home Medications Comprehensive Discharge Medication List: Ambulatory Orders Famotidine [Pepcid -] 40 mg PO DAILY 05/01/20 Ondansetron Oral Solution [Zofran Oral Solution -] 4 mg PO TID PRN #50 ml 05/04/20 Potassium Chloride [Potassium Chloride Oral Liquid] 20 meq PO ONCE #30 cup 05/04/20
[2020-05-04 14:06] VITALS: BP 151/91; PULSE 79; TEMP 98.7
[2020-05-04] MEDS ORDERED: METOCLOPRAMIDE HCL 10 MG TABLET (FP) PO SCH (16:30)
== END 2020-05-04 15:05 | disposition home or self-care (01) | DRG 392 ==
LOC: JER 12:38 → JERBED 18:34 → J6S 22:54
PROVIDERS: ADMIT Internal Medicine; ATTEND Internal Medicine
DX: K22.0 Achalasia of cardia (principal); N39.0 Urinary tract infection, site not specified; R63.4 Abnormal weight loss; Z68.21 Body mass index [BMI] 21.0-21.9, adult; K44.9 Diaphragmatic hernia without obstruction or gangrene; K21.9 Gastro-esophageal reflux disease without esophagitis; F41.9 Anxiety disorder, unspecified; E04.1 Nontoxic single thyroid nodule; E86.0 Dehydration; J45.909 Unspecified asthma, uncomplicated; I20.9 Angina pectoris, unspecified; E05.90 Thyrotoxicosis, unspecified without thyrotoxic crisis or storm; R13.10 Dysphagia, unspecified; G47.33 Obstructive sleep apnea (adult) (pediatric); E78.00 Pure hypercholesterolemia, unspecified; K22.2 Esophageal obstruction; E87.6 Hypokalemia; R79.89 Other specified abnormal findings of blood chemistry
CPT/HCPCS: 36415; 70360-TC-FY; 71046-TC-FY; 74220-TC-FY; 80048; 80053; 81003; 83605; 83690; 83735; 84439; 84443; 84481; 85025; 85027; 87040; 87086; 93005; 93010; 97116-GP; 97161-GP; 99285-25; J3480; U0003

== ENCOUNTER 2020-06-30 07:34 | Observation (INO) | payer OTHER ==
--- NOTE | 2020-06-30 07:49 | PDOC ---
History of Present Illness - General Chief Complaint: Chest Pain Stated Complaint: BACK/CHEST PAIN Time Seen by Provider: 06/30/20 07:49 Past History - Medical History Allergies/Adverse Reactions: Allergies Allergy/AdvReac Type Severity Reaction Status Date / Time amlodipine [From Norvasc] Allergy Verified 05/01/20 12:54 amoxicillin Allergy Verified 05/01/20 12:54 atorvastatin [From Lipitor] Allergy Verified 05/01/20 12:54 latex Allergy Verified 05/01/20 12:54 omeprazole Allergy Verified 05/01/20 12:54 Penicillins Allergy Verified 05/01/20 12:54 prochlorperazine Allergy Verified 05/01/20 12:54 [From Compazine] propranolol Allergy Verified 05/01/20 12:54 shellfish derived Allergy Verified 05/01/20 12:54 Sulfa (Sulfonamide Allergy Verified 05/01/20 12:54 Antibiotics) lactose AdvReac Verified 05/04/20 13:09 Home Medications: Ambulatory Orders Famotidine [Pepcid -] 40 mg PO DAILY 05/01/20 Ondansetron Oral Solution [Zofran Oral Solution -] 4 mg PO TID PRN #50 ml 05/04/20 Potassium Chloride [Potassium Chloride Oral Liquid] 20 meq PO ONCE #30 cup 05/04/20 Asthma: Yes Cardiac Disorders: Yes (angina) COPD: No GI Disorders: Yes (GERD) HTN: Yes Hypercholesterolemia: Yes Psychiatric Problems: Yes (Anxiety) Thyroid Disease: Yes (thyroid nodules) - Immunization History Immunization Up to Date: Yes - Psycho-Social/Smoking History Smoking History: Never smoked Have you smoked in the past 12 months: No - Substance Abuse Hx (Audit-C & DAST Scrn) How often the patient has a drink containing alcohol: Never Score: In Men: 4 or > Positive; In Women: 3 or > Positive: 0 Screen Result (Pos requires Nsg. Audit-10AR): Negative In the last yr the pt used illegal drug/Rx for NonMed reason: No Score: Yes response is considered Positive: 0 Screen Result (Positive result requires Nsg. DAST-10): Negative *Physical Exam - Vital Signs Last Vital Signs Temp Pulse Resp BP Pulse Ox 98.5 F 100 H 20 165/96 100 06/30/20 07:37 06/30/20 07:37 06/30/20 07:37 06/30/20 07:37 06/30/20 07:37
[2020-06-30] MEDS ORDERED: ACETAMINOPHEN 1000 MG/100 ML VIAL (NON FORMULARY) IVPB ONE ×2 (08:23→22:33)
--- NOTE | 2020-06-30 09:22 | PDOC ---
History of Present Illness - General Chief Complaint: Chest Pain Stated Complaint: BACK/CHEST PAIN Time Seen by Provider: 06/30/20 07:49 - History of Present Illness Initial Comments: 70 YOF h/o htn, asthma, achalasia, GERD w/ CP and back pain since 4 hours. Pain is located at sternum with radiation to back in between shoulder blades, described as feeling of tightness or spasms, 07/14, took aspirin and nitro w/o relief. Denies fever, chills, N/V/D, blood in urine, blood in stool. Constitutional: No Weight Change, No Fever, No Chills, No Night Sweats, No Fatigue, No Malaise ENT/Mouth: No Hearing Changes, No Ear Pain, No Nasal Congestion, No Sinus Pain, No Hoarseness, No sore throat, No Rhinorrhea, No Swallowing Difficulty Eyes: No Eye Pain, No Swelling, No Redness, No Foreign Body, No Discharge, No Vision Changes Cardiovascular: + Chest Pain, No SOB, No PND, No Dyspnea on Exertion, No Orthopnea, No Claudication, No Edema, No Palpitations Respiratory: No Cough, No Sputum, No Wheezing, No Smoke Exposure, No Dyspnea Gastrointestinal: No Nausea, No Vomiting, No Diarrhea, No Constipation, No Pain, No Heartburn, No Anorexia, No Dysphagia, No Hematochezia, No Melena, No Flatulence, No Jaundice Genitourinary: No Dysmenorrhea, No DUB, No Dyspareunia, No Dysuria, No Urinary Frequency, No Hematuria, No Urinary Incontinence, No Urgency, No Flank Pain, No Urinary Flow Changes, No Hesitancy Musculoskeletal: No Arthralgias, No Myalgias, No Joint Swelling, No Joint Stiffness, + Back Pain, No Neck Pain, No Injury History Skin: No Skin Lesions, No Pruritis, No Hair Changes, No Breast/Skin Changes, No Nipple Discharge Neuro: No Weakness, No Numbness, No Paresthesias, No Loss of Consciousness, No Syncope, No Dizziness, No Headache, No Coordination Changes, No Recent Falls Psych: No Anxiety/Panic, No Depression, No Insomnia, No Personality Changes, No Delusions, No Rumination, No SI/HI/AH/VH, No Social Issues, No Memory Changes, No Violence/Abuse Hx., No Eating Concerns Heme/Lymph: No Bruising, No Bleeding, No Transfusions History, No Lymphadenopathy Endocrine: No Polyuria, No Polydipsia, No Temperature Intolerance Past History - Medical History Allergies/Adverse Reactions: Allergies Allergy/AdvReac Type Severity Reaction Status Date / Time amlodipine [From Norvasc] Allergy Verified 05/01/20 12:54 amoxicillin Allergy Verified 05/01/20 12:54 atorvastatin [From Lipitor] Allergy Verified 05/01/20 12:54 latex Allergy Verified 05/01/20 12:54 omeprazole Allergy Verified 05/01/20 12:54 Penicillins Allergy Verified 05/01/20 12:54 prochlorperazine Allergy Verified 05/01/20 12:54 [From Compazine] propranolol Allergy Verified 05/01/20 12:54 shellfish derived Allergy Verified 05/01/20 12:54 Sulfa (Sulfonamide Allergy Verified 05/01/20 12:54 Antibiotics) lactose AdvReac Verified 05/04/20 13:09 Home Medications: Ambulatory Orders Ondansetron Oral Solution [Zofran Oral Solution 4 MG/5 ML -] 4 mg PO TID PRN #50 ml 05/04/20 Acetaminophen [Tylenol .Regular Strength -] 650 mg PO Q4H PRN tablet 07/01/20 Famotidine [Pepcid] 40 mg PO DAILY #1 bottle 07/01/20 Ondansetron Oral Solution [Zofran Oral Solution -] 4 mg PO Q6H #1 bottle 07/01/20 Asthma: Yes Cardiac Disorders: Yes (angina) COPD: No GI Disorders: Yes (GERD) HTN: Yes Hypercholesterolemia: Yes Psychiatric Problems: Yes (Anxiety) Thyroid Disease: Yes (thyroid nodules) - Immunization History Immunization Up to Date: Yes - Psycho-Social/Smoking History Smoking History: Never smoked Have you smoked in the past 12 months: No - Substance Abuse Hx (Audit-C & DAST Scrn) How often the patient has a drink containing alcohol: Never Score: In Men: 4 or > Positive; In Women: 3 or > Positive: 0 Screen Result (Pos requires Nsg. Audit-10AR): Negative In the last yr the pt used illegal drug/Rx for NonMed reason: No Score: Yes response is considered Positive: 0 Screen Result (Positive result requires Nsg. DAST-10): Negative *Physical Exam - Vital Signs Last Vital Signs Temp Pulse Resp BP Pulse Ox 98.5 F 88 20 143/92 100 06/30/20 07:37 06/30/20 08:00 06/30/20 08:00 06/30/20 08:00 06/30/20 08:00 - Physical Exam General Appearance: Yes: Nourished, Appropriately Dressed, Moderate Distress HEENT: positive: EOMI, ARNALDO, Normal ENT Inspection, Normal Voice, Symmetrical, TMs Normal, Pharynx Normal Respiratory/Chest: positive: Lungs Clear, Normal Breath Sounds Cardiovascular: positive: Regular Rhythm, Regular Rate, S1, S2 Gastrointestinal/Abdominal: positive: Flat, Soft, Other (belching with palpation of abdomen) ED Treatment Course - LABORATORY CBC & Chemistry Diagram: 07/01/20 07:05 07/01/20 07:05 - RADIOLOGY Radiology Studies Ordered: Category Date Time Status CHEST PA & LAT [RAD] Stat Radiology 06/30/20 08:23 Ordered Medical Decision Making - Medical Decision Making 70 YOF h/o htn, asthma, achalasia with chest and back pain - HR 100, vitals wnl - exam unremarkable - will do EKG, CBC, CMP, cardiac profile, CXR, CTA, maalox, pepcid, tylenol, viscous lidocaine, lido patch reassess: - labs unremarkable - EKG shows normal sinus rate and rythm - CTA reveals uterine fibroids, no acute pathology accounting for current sx - patients pain is still not well controlled - will admit patient for intractable pain 06/30/20 14:43 Discharge - Discharge Information Problems reviewed: Yes Clinical Impression/Diagnosis: Achalasia, Thyroid nodule Disposition: HOME - Follow up/Referral - Patient Discharge Instructions - Post Discharge Activity
[2020-06-30] MEDS ORDERED: ACETAMINOPHEN 650 MG/20.3 ML ORAL SOLUTION (CUPS) PO ONE (09:24)
[2020-06-30] MEDS ORDERED: LIDOCAINE VISCOUS 2% ORAL/TOP 20 ML UNIT-DOSE CUP MM ONE ×2 (09:26→10:07)
[2020-06-30] MEDS ORDERED: MAG HYDROX/AL HYDROX/SIMETH 30 ML UNIT-DOSE CUP PO ONE (09:26)
[2020-06-30] MEDS ORDERED: LIDOCAINE 5% TOPICAL PATCH TP ONE (09:27)
[2020-06-30] MEDS ORDERED: diazePAM CARPU-JECT 10 MG/2 ML DISP.SYRIN IM ONE (09:36)
[2020-06-30] MEDS ORDERED: LIDOCAINE VISCOUS 2% ORAL/TOP 20 ML UNIT-DOSE CUP ONE (09:48)
[2020-06-30] MEDS ORDERED: diazePAM CARPU-JECT 10 MG/2 ML DISP.SYRIN ONE (09:48)
[2020-06-30] MEDS ORDERED: ACETAMINOPHEN 650 MG/20.3 ML ORAL SOLUTION (CUPS) ONE (09:48)
[2020-06-30] MEDS ORDERED: MAG HYDROX/AL HYDROX/SIMETH 30 ML UNIT-DOSE CUP ONE (09:49)
[2020-06-30] MEDS ORDERED: LIDOCAINE 5% TOPICAL PATCH ONE (09:49)
[2020-06-30 09:57] LABS: BASO % 0.7 % (0-2.0); HEMATOCRIT 33.9 % (32.4-45.2); LYMPH % 25.2 % (8-40); MCH 25.1 pg (25.7-33.7); MCHC 32.6 g/dl (32.0-36.0); MEAN PLT VOLUME 8.2 fl (7.5-11.1); MONO % 8.9 % (3.8-10.2); NEUT % 63.2 % (42.8-82.8); PLATELET COUNT 283 K/MM3 (134-434); RDW 19.2 % (11.6-15.6); WHITE BLOOD COUNT 7.8 K/mm3 (4.0-10.0)
[2020-06-30 09:59] LABS: INR 1.18 (0.83-1.09); PROTHROMBIN TIME (PATIENT) 13.9 SEC (9.7-13.0)
[2020-06-30 10:02] LABS: ACTIVATED PTT 37.5 SECONDS (25.2-36.5)
[2020-06-30 10:23] LABS: ALBUMIN 3.5 g/dl (3.4-5.0); ALK PHOS 113 U/L (45-117); ANION GAP 10 MMOL/L (8-16); BILIRUBIN,TOTAL 0.8 mg/dL (0.2-1); BLOOD UREA NITROGEN 5.7 mg/dL (7-18); CHLORIDE 109 mmol/L (98-107); CO2 21 mmol/L (21-32); CREATININE 0.5 mg/dL (0.55-1.3); GLUCOSE,RANDOM 93 mg/dL (74-106); POTASSIUM 3.3 mmol/L (3.5-5.1); SGOT/AST 20 U/L (15-37); SGPT/ALT 16 U/L (13-61); SODIUM 140 mmol/L (136-145); TOT PROT 7.2 g/dl (6.4-8.2)
--- NOTE | 2020-06-30 12:16 | PDOC ---
Attending Attestation - Resident Resident Name: KellyChikaJoão - ED Attending Attestation I have performed the following: I have examined & evaluated the patient, The case was reviewed & discussed with the resident, I agree w/resident's findings & plan, Exceptions are as noted - HPI HPI: 06/30/20 12:03 70 F with h/o htn, asthma, achalasia, GERD presenting to ED w/ CP and back pain. Pt states that her pain started this morning at 3am. She states that her chest pain feels like the pain she chronically has due to her achalasia. However, pt reports the back pain is new. She denies any falls or injuries. Denies weakness/numbness in any extremity. States that she feels like she is having a muscle spasm in her back. The pain is worse with certain movements and positions. Denies SOB. - Physicial Exam PE: 06/30/20 12:16 See resident exam - Medical Decision Making 06/30/20 12:16 70 F with chest and back pain. Likely 2/2 achalasia. Possible msk pain. Dissection is unlikely as pt has equal pulses, no tearing chest pain. - Labs, trop - Consider CTA chest 06/30/20 13:52 Labs wnl Trop negative CTA negative for dissection Discharge - Discharge Information Problems reviewed: Yes Clinical Impression/Diagnosis: Achalasia, Thyroid nodule, Chest pain Disposition: HOME - Follow up/Referral - Patient Discharge Instructions - Post Discharge Activity
[2020-06-30] MEDS ORDERED: SODIUM CHLORIDE 0.9% 500 ML INFUS.BAG IV ONE (13:12)
[2020-06-30] MEDS ORDERED: KETOROLAC TROMETHAMINE 30 MG/1 ML VIAL IVPUSH ONE (13:12)
[2020-06-30] MEDS ORDERED: KETOROLAC TROMETHAMINE 30 MG/1 ML VIAL ONE (13:31)
[2020-06-30 15:07] LABS: LIPASE 33 U/L (73-393)
--- OUTSIDE RECORDS SUMMARY | 2020-06-30 15:44 | XMS ---
:[address] [facility] Care Team Providers Name Role Phone Vj LAFLEUR, Mariia Campbell Unavailable Unavailable Jaciel LAFLEUR, Physician H Unavailable Unavailable Lindy-Stanton Unavailable Unavailable Lindy-Stanton Unavailable Unavailable Mikaela Green MD Unavailable Unavailable Sue Unavailable Unavailable Jonathan Unavailable Jonathan Unavailable Jonathan Unavailable Jonathan Unavailable Jonathan Unavailable Jonathan Unavailable Iamele Unavailable Unavailable Iamele Unavailable Unavailable Iamele Unavailable Unavailable Wally LAFLEUR Unavailable Unavailable Efrain LAFLEUR, GKeaton Unavailable Unavailable Wilmer No, Physician Y Unavailable Unavailable Morejon Unavailable Unavailable Cassy LAFLEUR, Physician E Unavailable Unavailable ADAMS Unavailable Unavailable ADAMS Unavailable Unavailable ADAMS Unavailable Unavailable ADAMS Unavailable Unavailable ADAMS Unavailable Unavailable ADAMS Unavailable Unavailable Tanya Dodge PA-C Unavailable Unavailable Patria LAFLEUR, Physician Unavailable Unavailable Other Unavailable Unavailable Ziyad LAFLEUR, Physician J Unavailable Unavailable Tanya Alvarez MD Unavailable Unavailable Varunok, Rudy Unavailable Unavailable Varunok, Rudy Unavailable Unavailable Varunok, Rudy Unavailable Unavailable Varunok, Rudy Unavailable Unavailable Varunok, Rudy Unavailable Unavailable Varunok, Rudy Unavailable Unavailable Varunok, Rudy Unavailable Unavailable Varunok, Rudy Unavailable Unavailable Varunok, Rudy Unavailable Unavailable Varunok, Rudy Unavailable Unavailable Varunok, Rudy Unavailable Unavailable Varunok, Rudy Unavailable Unavailable Varunok, Rudy Unavailable Unavailable Varunok, Rudy Unavailable Unavailable Varunok, Rudy Unavailable Unavailable Varunok, Rudy Unavailable Unavailable Varunok, Rudy Unavailable Unavailable Varunok, Rudy Unavailable Unavailable Varunok, Rudy Unavailable Unavailable JOSEPH, DO Unavailable Unavailable JOSEPH, DO Unavailable Unavailable JOSEPH, DO Unavailable Unavailable JOSEPH, DO Unavailable Unavailable JOSEPH, DO Unavailable Unavailable JOSEPH, DO Unavailable Unavailable Rawley Unavailable Unavailable SARGIOS, N Unavailable Unavailable SARGIOS, N Unavailable Unavailable SARGIOS, N Unavailable Unavailable SARGIOS, N Unavailable Unavailable SARGIOS, N Unavailable Unavailable SARGIOS, N Unavailable Unavailable SARGIOS, N Unavailable Unavailable SARGIOS, N Unavailable Unavailable SARGIOS, N Unavailable Unavailable SARGIOS, N Unavailable Unavailable JOSEPH Unavailable Unavailable JOSEPH Unavailable Unavailable JOSEPH Unavailable Unavailable JOSEPH Unavailable Unavailable JOSEPH Unavailable Unavailable Keena Epperson MD Unavailable Unavailable MD JAMES Unavailable Unavailable MD JAMES Unavailable Unavailable MD JAMES Unavailable Unavailable MD JAMES Unavailable Unavailable MD JAMES Unavailable Unavailable MD JAMES Unavailable Unavailable MD JAMES Unavailable Unavailable MD JAMES Unavailable Unavailable MD JAMES Unavailable Unavailable INTMD BIANCA Unavailable Unavailable INTMD BIANCA Unavailable Unavailable INTMD BIANCA Unavailable Unavailable MD JAMES Unavailable Unavailable Deacon LAFLEUR RKeaton Unavailable Unavailable Brant Ba MD Unavailable Unavailable Patria Unavailable Unavailable Wally LAFLEUR, Physician Jimmy Unavailable Unavailable Ariel Unavailable Unavailable JUHI LAFLEUR MD Unavailable Unavailable Ede DO, P. Unavailable Unavailable Ede DO, P. Unavailable Unavailable Ede DO, P. Unavailable Unavailable Ronen BREWSTER Physician A Unavailable Unavailable Tanya Coffey MD Unavailable Unavailable Yesenia HENDERSON MD, MD Unavailable Unavailable Momeni Unavailable Unavailable Momeni Unavailable Unavailable Momeni Unavailable Unavailable Momeni Unavailable Unavailable Momeni Unavailable Unavailable Momeni Unavailable Unavailable Momeni Unavailable Unavailable Momeni Unavailable Unavailable Momeni Unavailable Unavailable Momeni Unavailable Unavailable Momeni Unavailable Unavailable Momeni Unavailable Unavailable Momeni Unavailable Unavailable Momeni Unavailable Unavailable Momeni Unavailable Unavailable Momeni Unavailable Unavailable Momeni Unavailable Unavailable Damir, J DO Unavailable Unavailable Damir, J DO Unavailable Unavailable Damir, J DO Unavailable Unavailable Damir, J DO Unavailable Unavailable Jonathan Unavailable Jonathan Unavailable Jonathan Unavailable Jonathan Unavailable Jonathan Unavailable Jonathan Unavailable Huchital Unavailable Unavailable Aba LAFLEUR, Physician U Unavailable Unavailable Chito LAFLEUR, Physician Z Unavailable Unavailable Helft Unavailable Unavailable Rhianna LAFLEUR, Physician Unavailable Unavailable BRYAN LAFLEUR MD Unavailable Unavailable STAS LAFLEUR MD Unavailable Unavailable Chriss Unavailable Unavailable Chriss Unavailable Unavailable Chriss Unavailable Unavailable Chriss Unavailable Unavailable Chriss Unavailable Unavailable Chriss Unavailable Unavailable Chriss Unavailable Unavailable Chriss Unavailable Unavailable Chriss Unavailable Unavailable Chriss Unavailable Unavailable Chriss Unavailable Unavailable Chriss Unavailable Unavailable Chriss Unavailable Unavailable Chriss Unavailable Unavailable Chriss Unavailable Unavailable U DO, S DO Unavailable Unavailable ER Unavailable Unavailable Huchital Unavailable Unavailable Chriss Unavailable Unavailable Chriss Unavailable Unavailable Chriss Unavailable Unavailable Chriss Unavailable Unavailable Chriss Unavailable Unavailable Chriss Unavailable Unavailable Chriss Unavailable Unavailable Chriss Unavailable Unavailable Chriss Unavailable Unavailable Chriss Unavailable Unavailable Chriss Unavailable Unavailable Chriss Unavailable Unavailable Chriss Unavailable Unavailable Chriss Unavailable Unavailable Chriss Unavailable Unavailable Stevenson LAFLEUR Unavailable Unavailable Ariel Hoyos MD, A. Unavailable Unavailable Mino Franco MD Unavailable Unavailable Sue LAFLEUR, Physician R. Unavailable Unavailable MD Neida Unavailable Unavailable MD Neida Unavailable Unavailable MD Neida Unavailable Unavailable MD Neida Unavailable Unavailable HHHVCC Unavailable Unavailable John MEYERS MD, MD Unavailable Unavailable REYES CANDY DIPPER, M Unavailable Unavailable REYES CANDY DIPPER, M Unavailable Unavailable REYES CANDY DIPPER, M Unavailable Unavailable REYES CANDY DIPPER, M Unavailable Unavailable REYES CANDY DIPPER, M Unavailable Unavailable REYES CANDY DIPPER, M Unavailable Unavailable REYES CANDY DIPPER, M Unavailable Unavailable REYES CANDY DIPPER, M Unavailable Unavailable REYES CANDY DIPPER, M Unavailable Unavailable Fabián Unavailable Unavailable MD Earl Unavailable Unavailable MD Earl Unavailable Unavailable MD Earl Unavailable Unavailable MD Earl Unavailable Unavailable MD Earl Unavailable Unavailable SHEIKH MIQUEL MD Unavailable Unavailable [place] Unavailable Unavailable [place] Unavailable Unavailable [place] Unavailable Unavailable [place] Unavailable Unavailable [place] Unavailable Unavailable [place] Unavailable Unavailable [place] Unavailable Unavailable [place] Unavailable Unavailable [place] Unavailable Unavailable [place] Unavailable Unavailable [place] Unavailable Unavailable [place] Unavailable Unavailable [place] Unavailable Unavailable [place] Unavailable Unavailable [place] Unavailable Unavailable [place] Unavailable Unavailable Re-disclosure Warning The records that you are about to access may contain information from federally- assisted alcohol or drug abuse programs. If such information is present, then the following federally mandated warning applies: This information has been disclosed to you from records protected by federal confidentiality rules (42 CFR part 2). The federal rules prohibit you from making any further disclosure of this information unless further disclosure is expressly permitted by the written consent of the person to whom it pertains or as otherwise permitted by 42 CFR part 2. A general authorization for the release of medical or other information is NOT sufficient for this purpose. The Federal rules restrict any use of the information to criminally investigate or prosecute any alcohol or drug abuse patient.The records that you are about to access may contain highly sensitive health information, the redisclosure of which is protected by Article 27-F of the [facility] Public Health law. If you continue you may haveaccess to information: Regarding HIV / AIDS; Provided by facilities licensed or operated by the [facility] Office of Mental Health; or Provided by the [facility] Office for People With Developmental Disabilities. If such information is present, then the following [facility] mandated warning applies: This information has been disclosed to you from confidential records which are protected by state law. State law prohibits you from making any further disclosure of this information without the specific written consent of the person to whom it pertains, or as otherwise permitted by law. Any unauthorized further disclosure in violation of state law may result in a fine or assisted sentence or both. A general authorization for the release of medical or other information is NOT sufficient authorization for further disclosure. Allergies and Adverse Reactions Type Description Substance Reaction Status Data Source(s) Food allergy Cranberry Cranberry [facility] Food allergy Grapes Grapes [facility] Drug allergy Lipitor Lipitor [facility] Drug [facility] Zithromax Zithromax [facility] Drug allergy Compazine Compazine [facility] Drug allergy sulfa drugs sulfa drugs [facility] Environmental Latex Latex [facility] Food allergy shellfish shellfish [facility] Drug allergy omeprazole omeprazole [facility] Drug allergy penicillin penicillin [facility] Drug allergy amoxicillin amoxicillin [facility] Drug allergy propranolol propranolol [facility] lysol Shortness of [facility] [facility]ath [facility] Drug allergy cranberry cranberry Itching U [facility] Drug allergy pneumococcal pneumococcal Hives U [facility] vaccine vaccine [facility] Drug allergy Bleach (Sodium Bleach (Sodium [facility] Hypochlorite) Breath [facility] Food allergy Cranberry Cranberry [facility] Food allergy Grapes Grapes [facility] Drug allergy Lipitor Lipitor [facility] Drug allergy [facility] Drug allergy Zithromax Zithromax [facility] Drug allergy Compazine Compazine [facility] Drug allergy sulfa drugs sulfa drugs [facility] Environmental Latex Latex [facility] Food allergy shellfish shellfish [facility] Drug allergy omeprazole omeprazole [facility] Drug allergy penicillin penicillin [facility] Drug allergy amoxicillin amoxicillin [facility] Drug allergy propranolol propranolol [facility] Food allergy Cranberry Cranberry [facility] Food allergy Grapes Grapes [facility] Drug allergy Lipitor Lipitor [facility] Drug allergy [facility] Drug allergy Zithromax Zithromax [facility] Drug allergy Compazine Compazine [facility] Drug allergy sulfa drugs sulfa drugs [facility] Environmental Latex Latex [facility] Food allergy shellfish shellfish [facility] Drug allergy omeprazole omeprazole [facility] Drug allergy penicillin penicillin [facility] Drug allergy amoxicillin amoxicillin [facility] flu vaccines Hives U [facility] Drug allergy shellfish derived shellfish derived Anaphylaxis U [facility] Drug allergy latex latex Anaphylaxis U [facility] Drug allergy atorvastatin atorvastatin Rash U [facility] Drug allergy amlodipine amlodipine Rash U [facility] Drug allergy azithromycin azithromycin Rash U [facility] Drug allergy omeprazole omeprazole Rash U [facility] Drug allergy prochlorperazine prochlorperazine Rash U [facility] Drug allergy Sulfa (Sulfonamide Sulfa (Sulfonamide Anaphylaxis U [facility] Antibiotics) Antibiotics) [facility] Drug allergy Penicillins Penicillins Anaphylaxis U [facility] Drug allergy No Known Allergies No Known Allergies [facility] Drug allergy azithromycin azithromycin [facility] Drug allergy azithromycin azithromycin [facility] Drug allergy azithromycin azithromycin [facility] Drug allergy penicillins penicillins [facility] Environmental Latex Exam Gloves Latex Exam Gloves [place] Allergy [facility] Drug allergy penicillins penicillins [facility] Environmental Latex Exam Gloves Latex Exam Gloves Nuvance Allergy [facility] Drug allergy penicillins penicillins [facility] Environmental Latex Exam Gloves Latex Exam Gloves Nuvance Allergy [facility] [id number] Synonym(s): RUBBER Weal Active [place] LATEX [INCI]; Health LATEX; POLYMER OF System CIS-1,4-POLYISOPRE NE: MOLECULAR WEIGHT 100,000 TO 1,000,000 WITH A FEW PERCENT OF OTHER MATERIALS; PROTEINS, FATTY ACIDS, RESINS AND INORGANICS; NATURAL RUBBER; LATEX [VANDF]; NATURAL RUBBER [HSDB]; NATURAL RUBBER LATEX; SORVA/SORVINHA; RUBBER [NM]; NATURAL LATEX; RUBBER [MART.]; NATURAL RUBBER [WHO-DD]; RUBBER LATEX [id number] Compazine Other See Active [facility] seizure Drug allergy flu vaccines flu vaccines [facility] Drug allergy flu vaccines flu vaccines [facility] Drug allergy flu vaccines flu vaccines [facility] Drug allergy Sulfa Drug allergy itch Active eCW3 ([facility]) Drug allergy Azithromycin Azithromycin Unknown Active eCW3 ([facility]) Drug allergy Penicillin Drug allergy rash Active eCW3 ([facility]) Drug allergy Compazine Drug allergy Unknown Active eCW3 ([facility]) Propensity to latex No known allergies hand rash Active eCW 3 ([place] adverse (situation) [facility] Care) Drug allergy Omeprazole Omeprazole diarrhea, Active eCW3 ([place] muscle ache [facility]) Drug allergy Norvasc Amlodipine Unknown Active eCW3 ([facility]) Drug allergy Lipitor atorvastatin Unknown Active eCW3 ([facility]) Drug allergy Sulfa Drug allergy itch Active eCW3 ([facility]) Drug allergy Penicillin Drug allergy rash Active eCW3 ([facility]) Drug allergy Compazine Drug allergy Unknown Active eCW3 ([facility]) Propensity to latex No known allergies hand rash Active eCW 3 ([place] adverse (situation) [facility] reactions [facility]) Drug allergy Sulfa Drug allergy itch Active eCW3 ([facility]) Drug allergy Penicillin Drug allergy rash Active eCW3 ([facility]) Drug allergy Compazine Drug allergy Unknown Active eCW3 ([facility] Care) Propensity to latex No known allergies hand rash Active eCW 3 ([place] adverse (situation) [facility] reactions [facility]) [id number] Aggrenox Unknown Active [facility] [id number] Flonase Unknown Active [facility] [id number] Hydrochlorothiazide Unknown Active [facility] [id number] Metoprolol Unknown Active [facility] [id number] Vasotec Unknown Active [facility] [id number] Kenalog Weal Active [facility] [id number] Enalapril Weal Active [facility] [id number] Norvasc Weal Active [facility] [id number] Lipitor Weal Active [facility] [id number] sulfacetamide sodium Weal Active [facility] [id number] penicillin Weal Active [facility] Drug allergy Omeprazole Omeprazole diarrhea, Active eCW3 ([place] muscle ache [facility]) Propensity to latex No known allergies hand rash Active eCW 3 ([place] adverse (situation) [facility] reactions Care) Drug allergy Compazine Drug allergy Unknown Active eCW3 ([facility]) Drug allergy Penicillin Drug allergy rash Active eCW3 ([facility] on [facility]) Drug allergy Sulfa Drug allergy itch Active eCW3 ([facility] on [facility]) Propensity to latex No known allergies hand rash Active eCW 3 ([place] adverse (situation) [facility] reactions Care) Drug allergy Compazine Drug allergy Unknown Active eCW3 ([facility]) Drug allergy Penicillin Drug allergy rash Active eCW3 ([facility] on [facility]) Drug allergy Sulfa Drug allergy itch Active eCW3 ([facility]) Encounters Encounter Providers Location Date Indications Data Source(s ) Outpatient Attender: Xiang 03/14/2020 Luke Banerjee 02:30:00 PM [facility] EDT - 03/14/2020 11:59:00 PM EDT Patient discharged. Inpatient Attender: MD Kellie Al 5T-5T 03/08/2020 [facility] [place] Edd[place]ielle 12:22:00 PM EDT - PAIN Rakesh LockwoodAttender: Doctor 03/14/2020 Son rodriguez OtherAdmitter: MD Hopkins 03:20:00 PM EDT Mikaela MullinsoConsultant: Cait Iamele ASTHMA & ABD PAIN Patient discharged. Inpatient Attender: OPAL ADAMS 03/03/2020 DYSPHAGIA, [place] MDAttender: Joey 04:47:00 AM EDT UNSPECIFIED [facility] Earl MDAdmitter: JOSEPH - 03/06/2020 [facility] BRYAN MDConsultant: Juan 05:35:00 PM EDT VarunokConsultant: MARY ADAMS DYSPHAGIA, UNSPECIFIED Patient discharged. Inpatient Attender: MORENO 02/26/2020 DYSPHAGIA, [place] MDAttender: 07:02:00 PM EDT - UNSPECIFIED Regional ROMARIO MEYERS 03/02/2020 [facility] MDAttender: SAMIA U 06:10:00 PM EDT DOAttender: GIOVANNY REYNAGA MDAdmitter: GIOVANNY REYNAGA MDReferrer: OPAL ADAMS MDConsultant: DOM FRANCO MD DYSPHAGIA, UNSPECIFIED Patient discharged. Emergency Attender: ERAttender: 02/26/[facility]43[facility] - 02/26/2020 Jaylen Vazquez MDAdmitter: Mariia 05:41:00 AM EDT [facility] Patient discharged. Inpatient Attender: Physician Hewitt 02/20/[facility]03[facility] Guillen M.[facility].Attender: Luis SANTOT - 02/25/2020 Arturo ADAMS-CAttender: Sidney 01:30:00 PM EDT [facility] NicktalAttender: ERAdmitter: Physician Marcelina Guillen M.D.Casino Manager: Isabel Pedersonultant: Berlin Epperson MD Patient discharged. Outpatient Attender: Alice 02/19/2020 04:40:00 PM NEXTGEN ([facility] PandyaAdmitter: [place] EDT [facility]) Outpatient Attender: Alice 02/18/2020 12:00:00 AM NEXTGEN ([facility] PandyaAdmitter: [place] EDT [facility]) Outpatient Attender: Xiang Banerjee 02/17/2020 09:15:00 AM [facility] EDT - 02/17/2020 Heart Ce nter 11:59:00 PM EDT Patient discharged. Outpatient 02/16/2020 12:00:00 AM NE XTGEN ([facility] EDT [facility] 12:00:00 AM NEXTGEN ([facility] PandyaAdmitter: [place] EDT [facility] dical - [facility]) Outpatient Attender: Physician 02/15/2020 03:00:00 PM [facility] Pedro Dale MD EDT - 02/15/2020 [facility] 11:59:00 PM EDT Patient discharged. [facility] 02/15/2020 02:46:00 PM NEXTGEN ([facility] PandyaAdmitter: [place] EDT [facility]) Inpatient Attender: [facility] 02/15/2020 03:01:10 AM [facility] JonathanAttender: NATALIIA EDT - 02/19/2020 Arturo JOSEPH DOAttender: Physician 04:53:00 PM EDT [facility] Jamaal Grissom MDAttender: ERAdmitter: Alice CastilloConsultant: SKYLER INTWALA MDConsultant: Jesse MuñozConsultant: Physician Lazaro Lo MDConsultant: Tree BaConsultant: Tree Ba MDConsultant: SAMI JOSEPHConsultant: Berlin Epperson MDConsultant: Physician Aristides Rogers MDConsultant: Reg George Jr. MDConsultant: Reg GeorgeConsultant: Dom Franco MD Patient discharged. Outpatient 02/14/2020 11:48:00 AM EDT - [facility] 02/14/2020 11:59:00 PM EDT Patient discharged. Emergency Attender: Joe Mera 02/13/2020 04:41:00 AM [facility] Attfior: EDT - 02/13/2020 Antoinette Vazquez ERAdmitter: Joe Mera 08:40:00 AM EDT [facility] DO Patient discharged. Emergency Attender: Gabriela Worthy 02/11/2020 07:36:00 A M [facility] KATIEttender: EDT - 02/11/2020 Antoinette Vazquez ERAdmitter: Gabriela 09:54:00 AM EDT [facility] Deacon LAFLEUR Patient discharged. Outpatient 02/09/2020 03:24:00 PM EDT - [facility] 02/09/2020 11:59:00 PM EDT Patient discharged. Unlisted evaluation 02/07/2020 08:05:00 NETSMART (Family and management service PM EDT [employer] [facility].) Outpatient Attender: Aristides 02/07/2020 02:15:00 [facility] 11:59:00 PM EDT Patient discharged. Outpatient Attender: Xiang Banerjee 02/07/2020 11:45:00 AM [facility] EDT - 02/07/2020 11:59:00 [facility] [place] Patient discharged. Emergency Attender: Amanuel 02/07/2020 10:37:00 AM [facility] AimeeAttender: EDT - 02/07/2020 Arturo Vazquez ERAdmitter: Amanuel Yu 11:34:00 AM EDT [facility] Patient discharged. Emergency Attender: Brie 02/06/2020 02:21:43 PM [facility] OswaldoParrish WILSONttender: EDT - 02/06/2020 Arturo Vazquez MD ERAdmitter: Brie 07:43:00 PM EDT [facility] OswaldoParrish LAFLEUR Patient discharged. Emergency Attender: Elsy May 02/06/2020 06:39:22 AM [facility] Attender: EDT - 02/06/2020 Antoinette Vazquez ERAdmitter: Elsy May DO 11:24:00 AM EDT Medical Center Patient discharged. Emergency Attender: ROMARIO MEYERS 02/03/2020 06:58:00 AN [facility] MDConsultant: MCCAIN AM EDT - 02/03/2020 [facility] SHEIKH MIQUEL 01:35:00 PM EDT ANXIETY Patient discharged. Emergency Attender: Neal Gamino 02/02/2020 01:48:27 P Raffy [facility] MDAttender: EDT - 02/02/2020 Antoinette Vazquez ERAdmitter: Neal 04:40:00 PM EDT [facility] Stevenson LAFLEUR Patient discharged. Emergency Attender: Sidney 01/31/2020 07:33:01 N [facility] NicktalAttender: Sidney EDT - [facility] 04:18:00 AM [facility] ERAdmitter: Sidney McclainConsultant: Physician Jerrell Hardwick DO Patient discharged. Outpatient Attender: Xiang Banerjee 01/31/2020 07:48:00 AM [facility] EDT - 01/31/2020 11:59:00 [facility] PM EDT Patient discharged. Outpatient Attender: Clary 12/20/2019 09:14:31 AM [facility] Jean-PierreAdmitter: [facility] - 12/20/2019 [facility] 11:59:00 PM EDT Medical enter Patient discharged. Outpatient Attender: YOLA QUIROZ 12/09/2019 07:57:00 AM [facility] FNPAdmitter: [facility] - 12/10/2019 [facility] 11:59:00 PM [facility] Patient discharged. Outpatient Attender: [id number] [facility] 11/22/2019 12:27:17 PM I ([facility]) Patient admitted. Emergency Attender: 10/07/2019 08:55:00 [facility] - ERAdmitter: ER PM [facility] Outpatient [facility] 07/04/2019 12:00:00 e CW3 ([facility] A28 AM EDT - 07/04/2019 [facility] 12:00:00 AM EDT Care) S Attender: Clary 06/23/2019 03:18:00 [facility] Jean-PierreAdmitter: PM EDT [facility] Ad[facility] cancelled. Disregard status an d admitted date. S Attender: Clary 05/30/2019 09:39:00 [facility] MorejonAdmitter: Clary Morejon [facility] Admission cancelled. Disregard status an d admitted date. Outpatient [facility] 05/14/2019 eCW3 ([facility] A28 12:00:00 AM EDT - [facility] 05/14/2019 Care) 12:00:00 AM EDT ([place] Laura) Dental [facility] 04/12/2019 eC W3 ([facility] A28 12:00:00 AM EDT - [facility] 04/12/2019 Care) 12:00:00 AM EDT S Attender: Clary 04/08/2019 Luke MorejonAdmitter 12:14:35 PM EDT [place] [facility] : Clary Morejon [facility] enter Admission cancelled. Disregard status an d admitted date. S Attender: Physician Rafael 03/15/2019 09:02:16 AM [facility]T [facility] Physician [facility] Rafael Madera MD Admission cancelled. Disregard status an d admitted date. Outpatient Attender: Physician 03/11/2019 11:48:42 AM [facility] Rafael Madera MDAdmitter: EDT - 03/15/2019 [facility] 11:59:59 PM EDT [facility] Patient discharged. S 01/29/2019 03:32:02 [facility] EDT [facility] Outpatient Attender: Darrel 01/07/2019 08:56:41 [facility] Efrain MDAdmitter: AM EDT - 01/07/2019 [place] [facility] Zuniga MD 11:59:59 PM EDT [facility] Outpatient [facility] 01/06/2019 12:00:00 e CW3 ([facility] A28 AM EDT - 01/06/2019 [facility] 12:00:00 AM EDT Care) Emergency Attender: 12/02/2018 01:01:00 [facility] - ERAttender: PM EST - 12/08/2018 Antoinettejohn Gamino 10:50:00 AM EST [facility] MDAttender: Physician Asim Troncoso MDAdmitter: ERConsultant: Xiang BanerjeeConsultant: Jesse MuñozConsultant: Jayro Carrasquillo MDConsultant: JUAN MANUEL DURANOSConsultant: Tara MaloneyConsult ant: Darrel Skeltonvonniealexandra MDConsultant: Physician Amanuel Lackey MDConsultant: Physician Jewell [place] MDConsultant: Silas TrevizomConsultant: Physician Silas [place] MDConsultant: Clari Lo MD Outpatient [facility] 11/25/2018 12:00:00 e CW3 ([facility] A28 AM EST - 11/25/2018 [facility] 12:00:00 AM EST Care) Emergency Attender: 11/21/2018 05:23:00 [facility] - ERAttender: Luis AM EST - 11/21/2018 Arturo Dodge 09:30:00 AM [facility] enter PA-CAdmitter: ER Emergency Attender: 11/17/2018 03:35:00 [facility] - ERAttender: Daniel PM EST - 11/17/2018 Arturo Alvarez MDAdmitter: 06:40:00 PM [facility] ER Immunizations Vaccine Date Status Description Data Source(s) New in 2011. completed influenza, injectable, quadr ivalent, preservative free Not Administered [place] IIV4 System Comments: patient stated she allergic re action to previous flu shot. Patient was offered Flu Blok but refused both.Not Ad ministered Reason: .Refusal Medications Medication Brand Start Product Dose Route Administrative Pharmacy [facility] Indications Reaction Description Data Name Date Form Instructions Instructions Source(s) Prednisone predni [id number] active Predni SONE [facility] 20 MG Oral SONE 2019 {tab( Health Tablet 20 mg 01:35: s)} System predniSONE oral 56 PM 20 mg oral tablet EDT tablet Ondansetron Zofran [id number] active Zofra n [facility] 4 MG Oral 4 mg 2019 {tab( Health Tablet oral 01:23: s)} System [Zofran] tablet 00 PM Zofran 4 mg EDT oral tablet Prednisone predni [id number] aborted Predn iSONE [facility] 20 MG Oral SONE 2019 {tab( Health Tablet 20 mg 01:21: s)} System predniSONE oral 09 PM 20 mg oral tablet EDT tablet 24 HR dilTIAZem 03/14/2020 1 [id number] active dilTIAZem 360 mg/24 hours oral capsule, extended release; 1 cap(s) orally once a day Ordered: 14-Mar-2020 Start: 14-Mar-2020 [facility] Diltiazem 360 mg/24 01:11:05 PM {cap(s)} Quantity: 0 [facility] Hydrochloride hours oral EDT Refil ls: 0 System 360 MG capsule, Extended extended Release Oral release Capsule dilTIAZem 360 mg/24 hours oral capsule, extended release buspirone busPIRone 03/14/2020 1 [id number] active busPIRone 15 mg oral tablet; 1 tab(s) orally 3 times a day Ordered: 14-Mar-2020 Start: 14-Mar-2020 [facility] hydrochloride 15 mg oral 01:10:15 PM {tab(s)} Quantity: 0 [facility] 15 MG Oral tablet EDT Refills: 0 System Tablet busPIRone 15 mg oral tablet potassium [id number] 02/26/2020 20.0 Oral Nu [place] chloride 20 05:24:00 AM meq 20 mEq, = 15 mL, Oral, Daily, # 600 mL, 0 Refill(s), [facility] [address] 15 mL Oral Daily Health - mEq/15 mL EDT [place] oral liquid [facility] Loratadine 1 Claritin 5 02/26/2020 10.0 mg Oral [place] MG/ML Oral mg/5 mL 05:24:00 AM 10 mg, = 10 mL, Oral, Daily, # 100 mL, 0 Refill(s), Pharmacy: [facility] 10 mL Oral Daily,x10 day(s) Health - Solution oral syrup EDT [place] Claritin 5 Brothers mg/5 mL oral Medical syrup Center Diltiazem diltiazem 02/25/2020 120.0 Oral [place] Hydrochloride 120 mg 12:10:00 PM mg 120 mg, = 1 tab, Oral, Once, # 1 tab, 0 Refill(s), Pharmacy: [facility]/pharmacy #[id number], 1 tab Oral Once Health - 120 MG Oral oral EDT Arturo Tablet tablet [place] diltiazem 120 Medica l mg oral Center tablet pantoprazole Protonix 02/24/2020 40.0 mg Oral [place] 40 MG Delayed 40 mg oral 04:50:00 PM 40 mg, = 1 tab, Oral, BID, # 28 tab, 0 Refill(s), Pharmacy: [facility]/pharmacy #[id number], 1 tab Oral BID,x14 day(s) Health - Release Oral delayed EDT [place] ar Tablet release [place] Protonix 40 tablet Medica l mg oral Center delayed release tablet aspirin [id number] 02/20/2020 Chew 81.0 mg Oral N uvance 05:24:00 PM able 81 mg, Oral, Daily, 0 Refill(s) Health - EDT Tabl Arturo et [facility] nitroglycerin [id number] 02/20/2020 1.0 Topical [place] 0.6 mg/hr 05:23:00 PM = 1 patc h(es), TOP, Daily, 0 Refill(s) Health - transdermal EDT [place] [facility] Medical release [place] Ondansetron 4 ondansetro 02/20/2020 4.0 mg Oral [place] MG n 4 mg 05:22:00 PM 4 mg, = 1 tab, Oral, TID, 0 Refill(s), allow tablet to dissolve on tongue Health - Disintegratin oral EDT [place] g Oral Tablet tablet, Bro thers ondansetron 4 disintegra Medical mg oral ting Center tablet, disintegratin g Lorazepam 1 lorazepam 02/20/2020 1.0 mg Oral [place] MG Oral 1 mg oral 05:22:00 PM 1 mg, = 1 tab, Oral, Daily, 0 Refill(s), as needed for anxiety Health - Tablet tablet EDT [place] lorazepam 1 Brothers mg oral Medical tablet [place] Alprazolam Xanax 0.25 02/19/2020 Tabl 0.25 mg Oral N[place]ance 0.25 MG Oral mg oral 03:56:00 PM et 0.25 mg, = 1 tab, Oral, TID, # 7 tab, 0 Refill(s), Pharmacy: [facility]/pharmacy #[id number], 1 tab Oral TID Health - Tablet Xanax tablet EDT [place] 0.25 mg oral [facility] s [facility] Pantoprazole [id number] 02/15/2020 40.0 mg Oral [place] 06:54:00 AM 40 mg, Oral, BID, 0 Refill(s) Health - EDT Arturo [facility] metoclopramid [id number] 02/15/2020 10.0 mg Oral Nuvance e 06:54:00 AM 10 mg, Oral, TID, 0 Refill(s) [facility]rum oral [id number] 02/15/2020 Oral Nuv[place] liquid 06:54:00 AM 1 dose, Ora l, Daily, 0 Refill(s) [facility] simvastatin [id number] 02/15/2020 40.0 mg Oral [place] 06:54:00 AM 40 mg, Oral, QHS, 0 Refill(s) [facility] Sertraline 25 Zoloft 02/15/2020 1.0 Oral acti NETSMART MG Oral 04:00:00 AM Tablet ve ([facility] Tablet [employer]T Services, [Zoloft] [employer] Diazepam 2 MG Valium 02/15/2020 2.0 Oral acti NETSMART Oral Tablet 04:00:00 AM Tablet ve ([facility] [Valium] [employer] Diazepam 2 MG Valium 2 02/11/2020 2.0 mg Oral [place] Oral Tablet mg oral 09:05:00 AM 2 mg, = 1 tab, Oral, QID, # 12 tab, 0 Refill(s), Spasm, Pharmacy: [facility]/pharmacy #[id number], 1 tab Oral QID,x3 day(s),PRN:Spasm Health - Valium 2 mg tablet EDT Arturo oral tablet [facility] Losartan losartan 02/07/2020 25.0 mg Oral [place] Potassium 25 25 mg oral 03:36:00 PM 25 mg, = 1 tab, Oral, Daily, # 90 tab, 1 Refill(s), Pharmacy: [facility]/pharmacy #[id number], 1 tab Oral Daily Health - MG Oral tablet EDT Arturo Tablet [place] losartan 25 Medical mg oral Center tablet Propranolol propranolo 02/07/2020 10.0 mg Oral [place] Hydrochloride l 10 mg 02:40:00 PM 10 mg, = 1 tab, Oral, BID, # 60 tab, 0 Refill(s), Pharmacy: [facility]/pharmacy #[id number], 1 tab Oral BID Health - 10 MG Oral oral EDT [place] Tablet tablet [place] propranolol Medical 10 mg oral Center tablet lansoprazole lansoprazo 02/06/2020 30.0 mg Oral [place] 30 MG le 30 mg 06:18:00 PM 30 mg, = 1 tab, Oral, Daily, # 7 tab, 0 Refill(s), Pharmacy: [facility]/pharmacy #[id number], 1 tab Oral Daily Health - Disintegratin oral EDT Arturo g Oral Tablet tablet, Bro thers lansoprazole disintegra M edical 30 mg oral ting Center tablet, disintegratin g Ondansetron 4 Zofran ODT 02/06/2020 4.0 mg Oral [place] MG 4 mg oral 06:16:00 PM 4 mg, = 1 tab, Oral, TID, # 10 tab, 0 Refill(s), Nausea/Vomiting, Pharmacy: [facility]/pharmacy #[id number], 1 tab Oral TID,PRN:Nausea/Vomiting Health - Disintegratin tablet, EDT Vas modesto g Oral Tablet disintegra George Zofran ODT 4 ting Medical mg oral Center tablet, disintegratin g Metoclopramid Metoclopra 02/06/2020 10.0 acti Metoclopramid eCW3 e 1 MG/ML mide HCl 12:00:00 AM {ml_bef ve e HCl 10 ([facility] Oral Solution 10 MG/10ML EDT ore_mea MG /10ML [place] Metoclopramid ls} Health e HCl 10 Care) MG/10ML Metoclopramid Metoclopra 02/06/2020 10.0 acti Metoclopramid eCW3 e 1 MG/ML mide HCl 12:00:00 AM {ml_bef ve e HCl 10 ([facility] Oral Solution 10 MG/10ML EDT ore_mea MG /10ML [place] Metoclopramid ls} Health e HCl 10 Care) MG/10ML Metoclopramid Metoclopra 02/06/2020 10.0 acti Metoclopramid eCW3 e 1 MG/ML mide HCl 12:00:00 AM {ml_bef ve e HCl 10 (Witt Oral Solution 10 MG/10ML EDT ore_mea MG /10ML [place] Metoclopramid ls} Health e HCl 10 Care) MG/10ML Diazepam 2 MG Valium 2 02/02/2020 4.0 mg Oral [place] Oral Tablet mg oral 04:23:00 PM 4 mg, = 2 tab, Oral, BID, # 6 tab, 0 Refill(s), for anxiety, only if needed. do not take wit other benzodiazepoimes, or alcohol, Pharmacy: [facility]/pharmacy #[id number], 2 tab Oral BID,x3 day(s),PRN:for anxiety,I Health - Valium 2 mg tablet EDT n str:only if needed. do not take wit other benzo... Arturo oral tablet [facility] Sucralfate Carafate 1 02/01/2020 1.0 g Oral [place] 100 MG/ML g/10 mL 03:53:00 AM 1 gm, = 10 mL, Oral, QID, X 10 day(s), # 400 mL, 0 Refill(s), Pharmacy: [facility]/pharmacy #[id number], 10 mL Oral QID,x10 day(s) Health - Oral oral EDT [place] Suspension suspension Bro thers Carafate 1 Medical g/10 mL oral Center suspension Azithromycin Zithromax 01/31/2020 12.5 acti Z ithromax 200 eCW3 40 MG/ML Oral 200 MG/5ML 12:00:00 AM {ml} ve MG/5ML ([facility] Suspension EDT [place] [Zithromax] Health Zithromax 200 Care) MG/5ML Azithromycin Zithromax 01/31/2020 12.5 acti Z ithromax 200 eCW3 40 MG/ML Oral 200 MG/5ML 12:00:00 AM {ml} ve MG/5ML ([place] Suspension EDT [place] [Zithromax] Health Zithromax 200 Care) MG/5ML Azithromycin Zithromax 01/31/2020 12.5 acti Z ithromax 200 eCW3 40 MG/ML Oral 200 MG/5ML 12:00:00 AM {ml} ve MG/5ML ([place] Suspension EDT [place] [Zithromax] Health Zithromax 200 Care) MG/5ML Losartan losartan 01/23/2020 25.0 mg Oral [place] Potassium 25 25 mg oral 02:01:00 PM 25 mg, = 1 tab, Oral, Daily, # 30 tab, 0 Refill(s), Pharmacy: [facility]/pharmacy #[id number], 1 tab Oral Daily Health - MG Oral tablet EDT Arturo Tablet Brothers losartan 25 Medical mg oral Center tablet Cholecalcifer Vitamin D3 01/23/2020 2000.0 Oral [place] ol 1999 intl 09:02:00 AM [iU] 2,000 IntUnit, = 1 tab, Oral, Daily, 0 Refill(s) Health - Oral Tablet units oral EDT Va ssar Vitamin D3 tablet Brother s 1999 intl Medical units oral Center tablet Cholecalcifer Vitamin D 01/18/2020 1.0 acti Vitamin D 50 eCW3 ol 1999 UNT 50 MCG 12:00:00 AM {tablet ve M CG (1999) ([facility] Oral Tablet (1999) EDT } Claire er Vitamin D 50 Health MCG (1999) Care) Cholecalcifer Vitamin D 01/18/2020 1.0 acti Vitamin D 50 eCW3 ol 1999 UNT 50 MCG 12:00:00 AM {tablet ve M CG (1999) ([facility] Oral Tablet (1999) EDT } [place] er Vitamin D 50 Health MCG (1999) Care) Cholecalcifer Vitamin D 01/18/2020 1.0 acti Vitamin D 50 eCW3 ol 1999 UNT 50 MCG 12:00:00 AM {tablet ve M CG (1999) ([facility] Oral Tablet (1999) EDT } [place] er Vitamin D 50 Health MCG (1999) Care) 120 ACTUAT Flovent 10/11/2019 1.0 acti Flove nt HFA eCW3 Fluticasone HFA 110 12:00:00 AM {puff} ve 1 10 MCG/ACT (Witt propionate MCG/ACT EST [place] 0.11 Health MG/ACTUAT Care) Metered Dose Inhaler [Flovent] Flovent HFA 110 MCG/ACT 120 ACTUAT Flovent 10/11/2019 1.0 acti Flove nt HFA eCW3 Fluticasone HFA 110 12:00:00 AM {puff} ve 1 10 MCG/ACT (Witt propionate MCG/ACT EST [place] 0.11 Health MG/ACTUAT Care) Metered Dose Inhaler [Flovent] Flovent HFA 110 MCG/ACT 120 ACTUAT Flovent 10/11/2019 1.0 acti Flove nt HFA eCW3 Fluticasone HFA 110 12:00:00 AM {puff} ve 1 10 MCG/ACT (Witt propionate MCG/ACT EST [place] 0.11 Health MG/ACTUAT Care) Metered Dose Inhaler [Flovent] Flovent HFA 110 MCG/ACT 200 ACTUAT Ventolin 10/11/2019 1.0 acti Vent xavi HFA eCW3 Albuterol HFA 108 12:00:00 AM {puff_a ve 10 8 (90 Base) (Witt 0.09 (90 Base) EST s_neede MCG/ACT Rive r MG/ACTUAT MCG/ACT d} Health Metered Dose Care) Inhaler [Ventolin] Ventolin HFA 108 (90 Base) MCG/ACT 200 ACTUAT Ventolin 10/11/2019 1.0 acti Vent xavi HFA eCW3 Albuterol HFA 108 12:00:00 AM {puff_a ve 10 8 (90 Base) (Witt 0.09 (90 Base) EST s_neede MCG/ACT Rive r MG/ACTUAT MCG/ACT d} Health Metered Dose Care) Inhaler [Ventolin] Ventolin HFA 108 (90 Base) MCG/ACT 200 ACTUAT Ventolin 10/11/2019 1.0 acti Vent xavi HFA eCW3 Albuterol HFA 108 12:00:00 AM {puff_a ve 10 8 (90 Base) (Witt 0.09 (90 Base) EST s_neede MCG/ACT Rive r MG/ACTUAT MCG/ACT d} Health Metered Dose Care) Inhaler [Ventolin] Ventolin HFA 108 (90 Base) MCG/ACT Methocarbamol Robaxin-75 10/08/2019 1500.0 Oral [place]uvance 750 MG Oral 0 oral 05:20:00 AM mg 1,500 mg, = 2 tab, Oral, TID, # 22 tab, 0 Refill(s), Pharmacy: [facility]/pharmacy #[id number], 2 tab Oral TID,x7 day(s) Health - Tablet tablet EST Arturo Robaxin-750 [place] oral tablet [facility] Lidoderm 5% [id number] 10/08/2019 1.0 Topical [place] topical film 05:19:00 AM 1 patch(es), TOP, Daily, # 30 patch(es), 0 Refill(s), Pain, Pharmacy: [facility]/pharmacy #[id number], 1 patch(es) TOP Daily,x7 day(s),PRN:Pain Health - EST [facility] Ibuprofen 600 ibuprofen 10/08/2019 600.0 Oral Nuvance MG Oral 600 mg 05:19:00 AM mg 600 mg, = 1 tab, Oral, q6hr (specified start), # 21 tab, 0 Refill(s), for pain, Pharmacy: [facility]/pharmacy #[id number], 1 tab Oral q6hr (specified start),PRN:for pain Health - Tablet oral EST Arturo ibuprofen 600 tablet Brot hers mg oral Medical tablet Center Vitamin D UNK 07/13/2019 acti Vitamin D eCW3 (Ergocalcifer 12:00:00 AM ve (Erg ocalcifer (Witt ol) [id number] EDT ol) [id number] [place] [facility] Care) Albuterol Albuterol 05/14/2019 3.0 acti Albu terol eCW3 0.83 MG/ML Sulfate 12:00:00 AM {ml_as_ ve S ulfate (2.5 ([facility] Inhalant (2.5 EDT needed} MG/3ML) [place] Solution MG/3ML) 0.083% Health Albuterol 0.083% Care) Sulfate (2.5 MG/3ML) 0.083% Diphenhydrami Diphenhist 04/01/2019 25.0 mg Oral [place]uv[place] ne 25 mg oral 03:21:00 PM 25 mg, = 1 tab, Oral, BID, 0 Refill(s), as needed Health - Hydrochloride tablet EDT [place] ar 25 MG Oral [facility] Medical Diphenhist 25 Center mg oral tablet lansoprazole [id number] 04/01/2019 30.0 mg Oral [place] 30 mg oral 03:21:00 PM 30 mg, = 1 cap, Oral, Daily, 0 Refill(s) Health - delayed EDT [facility] simvastatin [id number] 04/01/2019 Tabl 40.0 mg Oral Nuvance 03:21:00 PM et 40 mg, Oral, Daily, 0 Refill(s) Health - EDT [facility] buspirone busPIRone 04/01/2019 15.0 mg Oral [place] hydrochloride 15 mg oral 03:21:00 PM 15 mg, = 1 tab, Oral, TID, 0 Refill(s) Health - 15 MG Oral tablet [facility] [place] Tablet [place] busPIRone 15 Medical mg oral Center tablet aspirin [id number] 03/11/2019 Chew 81.0 mg Oral N uvance 09:59:00 AM able 81 mg, Oral, Daily, 0 Refill(s) [facility] Tabl [facility] Ventolin HFA [id number] 03/11/2019 2.0 Inhalati Nuvance 09:59:00 AM on 2 puff(s), IN H, QID, 0 Refill(s) [facility] Claritin 5 Claritin 5 01/06/2019 acti Cl aritin 5 eCW3 MG/5ML MG/5ML 12:00:00 AM ve MG/5ML ([facility]) Claritin 5 Claritin 5 01/06/2019 acti Cl aritin 5 eCW3 MG/5ML MG/5ML 12:00:00 AM ve MG/5ML ([facility]) Claritin 5 Claritin 5 01/06/2019 acti Cl aritin 5 eCW3 MG/5ML MG/5ML 12:00:00 AM ve MG/5ML ([facility]) Claritin 5 Claritin 5 01/06/2019 acti Cl aritin 5 eCW3 MG/5ML MG/5ML 12:00:00 AM ve MG/5ML ([facility]) Simethicone simethicon 12/08/2018 Oral 40.0 mg Oral [place]uv[place] 66.7 MG/ML e 40 10:26:00 AM Solu 40 mg, = 0.6 mL, Oral, TID, X 5 day(s), # 30 mL, 0 Refill(s), Gas, Pharmacy: [facility]/pharmacy #[id number], 0.6 mL Oral TID,x5 day(s),PRN:Gas Health Oral mg/0.6 mL EST tion Arturo Suspension [facility] simethicone liquid Medica l 40 mg/0.6 mL Center oral liquid POLYETHYLENE polyethyle 12/08/2018 17.0 g Oral [place] GLYCOL 3350 ne glycol 10:26:00 AM 17 gm =, Oral, Daily, X 12 day(s), # 12 EA, 0 Refill(s), Pharmacy: [facility]/pharmacy #[id number], 17 gm Oral Daily,x12 day(s) Health - 142 MG/ML 3350 oral EST [place] Oral Solution powder for Brothers polyethylene reconstitu M edical glycol 3350 [facility] oral powder for reconstitutio n pantoprazole Protonix 12/08/2018 Pack 40.0 mg Oral [place] 40 MG Oral 40 mg oral 08:55:00 AM et 40 mg, = 1 EA, Oral, BID, # 60 abs, 0 Refill(s), Pharmacy: [facility]/pharmacy #[id number], 1 EA Oral BID,x30 day(s) Health - Granules granule, EST Arturo Protonix 40 enteric Broth ers mg oral coated Medical granule, Center enteric coated Metoclopramid Reglan 10 12/08/2018 Tabl 10.0 mg Oral [place]uvance e 10 MG Oral mg oral 08:55:00 AM et 10 mg, = 1 tab, Oral, Before meals, X 30 day(s), # 90 tab, 0 Refill(s), Pharmacy: [facility]/pharmacy #[id number], 1 tab Oral Before meals,x30 day(s) Health - Tablet Reglan tablet EST [place] ar 10 mg oral Brothers tablet Medical Center Blood Blood 11/25/2018 acti Blood eCW3 Pressure Pressure 12:00:00 AM ve Press ure ([facility] Monitor - Monitor - EST Monitor [facility]) Blood Blood 11/25/2018 acti Blood eCW3 Pressure Pressure 12:00:00 AM ve Press ure (Microtask Monitor - Monitor - EST Monitor - [facility]) Blood Blood 11/25/2018 acti Blood eCW3 Pressure Pressure 12:00:00 AM ve Press ure ([place] Monitor - Monitor - EST Monitor [facility]) Nebulizer - Nebulizer 11/25/2018 acti Ne bulizer - eCW3 - 12:00:00 AM ve ([facility]) Nebulizer - Nebulizer 11/25/2018 acti Ne bulizer - eCW3 - 12:00:00 AM ve ([facility]) Nebulizer - Nebulizer 11/25/2018 acti Ne bulizer - eCW3 - 12:00:00 AM ve ([facility]) Blood Blood 11/25/2018 acti Blood eCW3 Pressure Pressure 12:00:00 AM ve Press ure ([place] Monitor - Monitor - EST Monitor [facility]) Nebulizer - Nebulizer 11/25/2018 acti Ne bulizer - eCW3 - 12:00:00 AM ve ([facility]) Nebulizer - Nebulizer 11/25/2018 acti Ne bulizer - eCW3 - 12:00:00 AM ve ([facility]) Blood Blood 11/25/2018 acti Blood eCW3 Pressure Pressure 12:00:00 AM ve Press ure ([place] Monitor - Monitor - EST Monitor - [facility]) Prednisone 20 predniSONE 11/21/2018 40.0 mg Oral Nuvance MG Oral 20 mg oral 09:17:00 AM 40 mg, = 2 tab, Oral, Daily, X 5 day(s), # 10 tab, 0 Refill(s), with food or milk, Pharmacy: [facility]/pharmacy #[id number], 2 tab Oral Daily,x5 day(s),Instr:with food or milk Health - Tablet tablet EST Arturo predniSONE 20 [place] rs mg oral Medical tablet Center pantoprazole Protonix 10/07/2018 acti Pr otonix 40 eCW3 40 MG Delayed 40 mg 12:00:00 AM ve mg (Witt Release Oral EST [place] Tablet Health [Protonix] Care) Protonix 40 mg pantoprazole Protonix 10/07/2018 susp Pr otonix 40 eCW3 40 MG Delayed 40 mg 12:00:00 AM ende mg (Witt Release Oral EST d [place] Tablet Health [Protonix] Care) Protonix 40 mg pantoprazole Protonix 10/07/2018 acti Pr otonix 40 eCW3 40 MG Delayed 40 MG 12:00:00 AM ve MG (Witt Release Oral EST [place] Tablet Health [Protonix] Care) Protonix 40 MG pantoprazole Protonix 10/07/2018 acti Pr otonix 40 eCW3 40 MG Delayed 40 MG 12:00:00 AM ve MG (Witt Release Oral EST [place] Tablet Health [Protonix] Care) Protonix 40 MG pantoprazole Protonix 10/07/2018 acti Pr otonix 40 eCW3 40 MG Delayed 40 MG 12:00:00 AM ve MG (Witt Release Oral EST [place] Tablet Health [Protonix] Care) Protonix 40 MG Albuterol 1 Albuterol 04/08/2018 1.0 acti Al buterol eCW3 MG/ML Sulfate (5 12:00:00 AM {ml_as_ ve Sul fate (5 (Witt Inhalant MG/ML) EDT needed} MG/ML) 0.5% [place] Solution 0.5% Health Albuterol Care) Sulfate (5 MG/ML) 0.5% Diphenhydrami Diphenhydr 03/05/2018 acti DiphenhydrAMI eCW3 ne AMINE HCl 12:00:00 AM ve NE HCl 2 5 MG (Witt Hydrochloride 25 MG EDT [place] 25 MG Oral Health Capsule Care) DiphenhydrAMI NE HCl 25 MG Diphenhydrami Diphenhydr 03/05/2018 acti DiphenhydrAMI eCW3 ne AMINE HCl 12:00:00 AM ve NE HCl 2 5 MG (Witt Hydrochloride 25 MG EDT [place] 25 MG Oral Health Capsule Care) DiphenhydrAMI NE HCl 25 MG Diphenhydrami Diphenhydr 03/05/2018 acti DiphenhydrAMI eCW3 ne AMINE HCl 12:00:00 AM ve NE HCl 2 5 MG (Witt Hydrochloride 25 MG EDT [place] 25 MG Oral Health Capsule Care) DiphenhydrAMI NE HCl 25 MG Diphenhydrami Diphenhydr 03/05/2018 acti DiphenhydrAMI eCW3 ne AMINE HCl 12:00:00 AM ve NE HCl 2 5 MG (Witt Hydrochloride 25 MG EDT [place] 25 MG Oral Health Capsule Care) DiphenhydrAMI NE HCl 25 MG Diphenhydrami Diphenhydr 03/05/2018 acti DiphenhydrAMI eCW3 ne AMINE HCl 12:00:00 AM ve NE HCl 2 5 MG (Witt Hydrochloride 25 MG EDT [place] 25 MG Oral Health Capsule Care) DiphenhydrAMI NE HCl 25 MG Loratadine 10 Claritin 01/27/2018 susp C laritin 10 eCW3 MG Oral 10 mg 12:00:00 AM ende mg (Hud son Tablet EDT d [place] [Claritin] Health Claritin 10 Care) mg Prednisone 50 predniSONE 01/10/2018 50.0 mg Oral Nuvance MG Oral 50 mg oral 08:46:00 PM 50 mg, = 1 tab, Oral, Daily, # 5 tab, 0 Refill(s), Pharmacy: [facility]/pharmacy #[id number], 1 tab Oral Daily,x5 day(s) Health - Tablet tablet EDT Arturo predniSONE 50 [place] rs mg oral Medical tablet Center Nitroglycerin Nitroglyce 12/22/2017 acti Nitroglycerin eCW3 0.6 MG/HR rin 0.6 12:00:00 AM ve 0.6 M G/HR ([facility]itt MG/HR [facility]) Nitroglycerin Nitroglyce 12/22/2017 acti Nitroglycerin eCW3 0.6 MG/HR rin 0.6 12:00:00 AM ve 0.6 M G/HR ([facility]/HR [facility] [place] Nitroglycerin Nitroglyce 12/22/2017 acti Nitroglycerin eCW3 0.6 MG/HR rin 0.6 12:00:00 AM ve 0.6 M G/HR ([facility] [place]) Nitroglycerin Nitroglyce 12/22/2017 acti Nitroglycerin eCW3 0.6 MG/HR rin 0.6 12:00:00 AM ve 0.6 M G/HR ([facility] [place]) Nitroglycerin Nitroglyce 12/22/2017 acti Nitroglycerin eCW3 0.6 MG/HR rin 0.6 12:00:00 AM ve 0.6 M G/HR ([facility] [place]) Vitamin D Vitamin D 11/17/2017 susp Rachel min D eCW3 2000 UNIT 2000 UNIT 12:00:00 AM ende 200 0 UNIT ([facility]) lansoprazole [id number] 09/22/2017 30.0 mg Oral [place] 30 mg oral 02:11:00 PM 30 mg, = 1 cap, Oral, Daily, # 30 cap, 0 Refill(s), [facility]acy: [id number], 1 cap Oral Daily Health - delayed EST Arturo release [facility] 24 HR diltiazem 09/22/2017 360.0 Oral Nu noriega Diltiazem 360 mg/24 02:11:00 PM mg 360 mg, = 1 cap, Oral, Daily, # 30 cap, 0 Refill(s), Pharmacy: [facility]/pharmacy #[id number], 1 cap Oral Daily Health - Hydrochloride hours oral EST Arturo 360 MG capsule, [place] Extended extended Medical Release Oral release Cent er Capsule diltiazem 360 mg/24 hours oral capsule, extended release Albuterol albuterol 09/22/2017 2.5 mg Nebulize [place] 0.83 MG/ML 2.5 mg/3 02:11:00 PM d 2.5 mg, = 3 mL, NEB, q6hr (specified start), # 25 EA, 0 Refill(s), for wheezing, Pharmacy: [facility]/pharmacy #[id number], 3 mL NEB q6hr (specified start),PRN:for wheezing Health - Inhalant mL EST inhalati Arturo Solution (0.083%) on Brother s albuterol 2.5 inhalation Medical mg/3 mL solution Center (0.083%) inhalation solution nitroglycerin [id number] 09/22/2017 1.0 Topical [place] 0.6 mg/hr 02:10:00 PM = 1 patch(es), TOP, Daily, # 30 patch(es), 0 Refill(s), Pharmacy: [facility]/pharmacy #[id number], 1 patch(es) TOP Daily Health - transdermal EST [place] film, [place] extended Medical release Center buspirone busPIRone 09/08/2017 1 [id number] abor Bu sPIRone [facility] hydrochloride 15 mg oral 12:08:36 PM {tab(s) nayeli Hydrochloride Health 15 MG Oral tablet EST } System Tablet busPIRone 15 mg oral tablet It is very important that you take or us e this exactly as directed. Do not skip doses or discontinue unless directed by your doctor.May cause drowsiness or dizziness.May cause drowsiness. Alcohol may intensify this effect. Use care when operating dangerous machinery.Obtain med ica advice before taking any non-prescription drugs as some may affec t the action of this medication. BuSpar 09/08/2017 15 [id number] aborted BuSpar; 15 milligram(s) orally 3 times a day, As Needed for anxiety Ordered: 08-Sep-2017 Start: 08-Sep-2017 End: 08-Oct-2017 [facility] 12:07:52 PM mg Quantity: 60 Chiki Fernandez Status: Discontinued Health EST Refills: 0 System Ibuprofen ibuprofen 09/08/2017 1 [id number] aborted Ibuprofen [facility] 600 MG Oral 600 mg oral 12:07:42 PM {tab(s)} Health Tablet tablet EST System ibuprofen 600 mg oral tablet Do not take this drug if you are pregnan t.It is very important that you take or use this exactly as directed. Do not skip d oses or discontinue unless directed by your doctor.May cause drowsiness or dizziness .Obtain medical advice before taking any non-prescription drugs as some may affec t the action of this medication.Take with food or milk. Prednisone 20 Deltasone 09/07/2017 2 [id number] aborted Deltasone [facility] MG Oral 20 mg oral 09:23:08 PM {tab(s)} Health Tablet tablet EST System [Deltasone] Deltasone 20 mg oral tablet It is very important that you take or us e this exactly as directed. Do not skip doses or discontinue unless directed by your doctor.Obtain medical advice before taking any non-prescription drugs as callie e may affect the action of this medication.Take with food or milk. Azithromycin Zithromax 07/17/2017 1 [id number] completed Zithromax [facility] 250 MG Oral 250 mg 10:15:37 AM {tab(s)} Health Tablet oral EDT System [Zithromax] tablet Zithromax 250 mg oral tablet Do not take dairy products, antacids, or iron preparations within one hour of this medication.Finish all this medication un less otherwise directed by prescriber. 24 HR Nitro-Dur 07/17/2017 1 [id number] aborted Nitro-Dur 0.6 mg/hr transdermal film, extended release; 1 patch transdermally once a day Ordered: 17-Jul-2017 Start: 17-Jul-2017 End: 13-Nov-2017 [facility] Nitroglycerin 0.6 mg/hr 10:12:05 AM {PATCH} Quantity: 30 Inderjit Hallman Status: Discontinued Health 0.6 MG/HR transdermal EDT Refills: 3 Generic Substitution Allowed System Transdermal film, Co mments: Do not drink alcoholic beverages when taking this medication.For external use only.It is very important that you take or use this exactly as directed. Do not skip doses or discontinue unless directed b Patch extended [Nitro-Dur] release Nitro-Dur 0.6 mg/hr transdermal film, extended release Do not drink alcoholic beverages when ta anabell this medication.For external use only.It is very important that you take or use t his exactly as directed. Do not skip doses or discontinue unless directed by your d octor.Remove old patch prior to applying a new patch. lansoprazole lansoprazole 07/17/2017 1 [id number] active Lansoprazole [facility] 30 MG Delayed 30 mg oral 10:11:55 AM {cap(s)} Health Release Oral delayed EDT Syst em Capsule release lansoprazole capsule 30 mg oral delayed release capsule 24 HR DilTIAZem 07/17/2017 1 [id number] aborted Dil TIAZem [facility] Diltiazem Hydrochloride 10:11:44 AM {cap(s)} (Eqv-Tiazac) Health Hydrochloride ER 360 mg/24 EDT System 360 MG hours oral Extended capsule, Release Oral extended Capsule release DilTIAZem Hydrochloride ER 360 mg/24 hours oral capsule, extended release It is very important that you take or us e this exactly as directed. Do not skip doses or discontinue unless directed by your doctor.Some non-prescription drugs may aggravate your condition. Read all labe ls carefully. If a warning appears, check with your doctor before taking.Swallow w hole. Do not crush. Diphenhydramine Benadryl 07/17/2017 1 [id number] active Benadryl [facility] Hydrochloride 25 25 mg 10:11:25 AM {cap(s)} Health MG Oral Capsule oral EDT Syst em [Benadryl] capsule Benadryl 25 mg oral capsule May cause drowsiness. Alcohol may inten sify this effect. Use care when operating dangerous machinery.Obtain medical advic e before taking any non-prescription drugs as some may affect the action of this medic ation. Aspirin Aspirin 07/17/2017 1 [id number] aborted Aspirin Enter[facility] Coated 81 mg oral delayed release tablet; 1 tab(s) orally once a day Ordered: 17-Jul-2017 Start: 17-Jul-2017 End: 13-Nov-2017 [facility] 81 MG Enteric 10:11:17 AM {tab(s)} Quant ity: 30 Inderjit Hallman Status: Discontinued Health Delayed Coated EDT Refills: 3 Generic Substitution Allowed System Release 81 mg Oral oral Tablet delayed Aspirin release Enteric tablet Coated 81 mg oral delayed release tablet Swallow whole. Do not crush.Take with f ood or milk. Simvastatin Zocor 40 07/17/2017 1 {tab(s)} [id number] active Zocor [facility] 40 MG Oral mg oral 10:11:05 AM Health Tablet tablet EDT System [Zocor] Zocor 40 mg oral tablet Avoid grapefruit and grapefruit juice wh ile taking this medication.Do not take this drug if you are .It is very impo rtant that you take or use this exactly as directed. Do not skip doses or disconti nue unless directed by your doctor.Obtain medical advice before taking any non-pre scription drugs as some may affect the action of this medication.Take with food or mil k. Ventolin HFA [id number] 07/17/2017 2 [id number] active Ventolin [facility] 90 mcg/inh 10:10:35 AM {puff(s)} HF A Health inhalation EDT System aerosol For inhalation only.It is very important that you take or use this exactly as directed. Do not skip doses or disconti nue unless directed by your doctor.Obtain medical advice before taking any non-pre scription drugs as some may affect the action of this medication.Shake well before use . Albuterol albuterol 07/07/2017 3 mL [id number] aborted Albuterol [facility] 0.83 MG/ML 2.5 mg/3 mL 10:03:08 AM [place] [facility] Inhalant (0.083%) EDT System Solution inhalation albuterol solution 2.5 mg/3 mL (0.083%) inhalation solution For inhalation only.It is very important that you take or use this exactly as directed. Do not skip doses or disconti nue unless directed by your doctor.Obtain medical advice before taking any non-pre scription drugs as some may affect the action of this medication. montelukast montelukast 07/07/2017 1 [id number] active Singulair [facility] 10 MG Oral 10 mg oral 09:51:14 AM {tab(s)} Health Tablet tablet EDT System montelukast 10 mg oral tablet It is very important that you take or us e this exactly as directed. Do not skip doses or discontinue unless directed by your doctor. Azithromycin Azithromycin 07/07/2017 1 [id number] aborted Azithromycin [facility] 500 MG Oral 3 Day Dose 09:50:18 AM {tab(s)} 3 Day Dose Health Tablet Pack 500 mg EDT Pack System Azithromycin oral tablet 3 Day Dose Pack 500 mg oral tablet Do not take dairy products, antacids, or iron preparations within one hour of this medication.Finish all this medication un less otherwise directed by prescriber. Codeine Phosphate 2 promethazine-codeine 06/26/2017 10 [id number] active promethazine-codeine 6.25 mg-10 mg/5 mL oral syrup; 10 milliliter(s) orally every 6 hours Ordered: 07-Jul-2017 Start: 26-Jun-2017 End: 12-Jul-2017 Marino mike MG/ML / Promethazine 6.25 mg-10 mg/5 mL 10:45:12 AM mL Quantity: 200 Raymon Penaloza Generic Substitution Allowed Health Hydrochloride 1.25 oral syrup EDT Refills: 0 Comments: Caution federal law prohibits the transfer of this drug to any person other than the person for whom it was prescribed.May cause drowsiness. Alcohol may intensify this effect. Use care when operating System MG/ML Oral Solution promethazine-codeine 6.25 mg-10 mg/5 mL oral syrup Caution federal law prohibits the transf er of this drug to any person other than the person for whom it was prescribed.May ca use drowsiness. Alcohol may intensify this effect. Use care when operating [employer].Obtain medical advice before taking any non-prescription drugs as callie e may affect the action of this medication. benzonatate benzonatate 06/26/2017 1 [id number] aborted benzonatate 100 mg oral capsule; 1 cap(s) orally 3 times a day, As Needed -PRN COUGH Ordered: 07-Jul-2017 Start: 26-Jun-2017 [facility] 100 MG Oral 100 mg oral 10:08:39 AM {cap(s)} Quantity: 21 Iftikhar-Claudiagh, Ali Status: Discontinued Health Capsule capsule EDT Refills: 3 Generic Substitution Allowed System benzonatate 100 mg oral capsule May cause drowsiness. Alcohol may inten sify this effect. Use care when operating dangerous machinery.Swallow whole. Do n ot crush. Azithromycin azithromycin 06/26/2017 5 [id number] completed Azithromycin [facility] 40 MG/ML Oral 200 mg/5 mL 10:04:30 AM mL Health Suspension oral liquid EDT Sy stem azithromycin 200 mg/5 mL oral liquid Do not take dairy products, antacids, or iron preparations within one hour of this medication.Expires Fin marilyn all this medication unless otherwise directed by prescriber.Shake well before use. Bisacodyl 5 bisacodyl 5 05/21/2017 1 [id number] completed Bisacodyl [facility] MG Delayed mg oral 11:27:30 AM {tab(s)} Health Release delayed EDT System Oral Tablet release bisacodyl 5 tablet mg oral delayed release tablet Swallow whole. Do not crush. POLYETHYLENE GoLYTELY oral 05/21/2017 240 [id number] completed GoLYTELY [facility] GLYCOL 3350 59 powder for 11:10:34 AM mL Health MG/ML / reconstitution EDT Sy stem Potassium Chloride 0.01 MEQ/ML / Sodium Bicarbonate 0.02 MEQ/ML / Sodium Chloride 0.025 MEQ/ML / sodium sulfate 0.04 MEQ/ML Oral Solution GoLYTELY oral powder for reconstitution Dilute this medication with liquid befor e administration.It is very important that you take or use this exactly as directed . Do not skip doses or discontinue unless directed by your doctor. hydrocortisone Anusol-HC 25 05/14/2017 1 [id number] completed Anusol-HC [facility] acetate 25 MG mg rectal 12:53:32 PM {SUPP(s)} Health Rectal suppository EDT System Suppository [Anusol HC] Anusol-HC 25 mg rectal suppository For rectal use only.Keep in refrigerator . Do not freeze. 24 HR nitroglycerin 05/14/2017 1 [id number] completed nitroglycerin 0.6 mg/hr transdermal film, extended release; 1 patch transdermal once a day Ordered: 14-May-2017 Start: 14-May-2017 End: 11-Aug-2017 [facility] Nitroglycerin 0.6 mg/hr 12:03:48 PM {PATCH} Quantity: 30 Bull, Leslie Status: Completed Health 0.6 MG/HR transdermal EDT Refills: 2 Generic Substitution Allowed System Transdermal film, extended Comments: Do not drink alcoholic beverages when taking this medication.For external use only.It is very important that you take or use this exactly as directed. Do not skip doses or discontinue unless directed b Patch release nitroglycerin 0.6 mg/hr transdermal film, extended release Do not drink alcoholic beverages when ta anabell this medication.For external use only.It is very important that you take or use t his exactly as directed. Do not skip doses or discontinue unless directed by your d octor.Remove old patch prior to applying a new patch. Hydrocortisone Anusol-HC 05/14/2017 1 [id number] complet ed Anusol-HC 2.5% topical cream; Apply topically to affected area 2 times a day Ordered: 07-Jul-2017 Start: 14-May-2017 End: 06-Aug-2017 [facility] 25 MG/ML 2.5% 11:53:42 AM {sheri} Quantity : 1 Raymon Hays Status: No Longer Active Health Topical Cream topical EDT Refills: 0 Generic Substitution Allowed System Anusol-HC 2.5% cream topical cream For external use only. Docusate Diocto 10 05/14/2017 10 mL [id number] active Diocto [facility] Sodium 10 mg/mL 11:52:26 AM He alth System MG/ML Oral oral EDT Suspension liquid Diocto 10 mg/mL oral liquid Medication should be taken with plenty o f water. Azithromycin Azithromycin 04/17/2017 1 [id number] comple nayeli Azithromycin 5 Day Dose Pack; 1 tab(s) orally once a day use as instructed; first day 2 tabs Ordered: 17-Apr-2017 Start: 17-Apr-2017 End: 22-Apr-2017 [facility] Azithromycin 5 Day Dose 09:42:54 AM {tab(s)} Quantity: 6 Chiki Fernandez Status: No Longer Active Health 5 Day Dose Pack EDT Refills: 0 System Pack Acetaminophen Tylenol 325 04/04/2017 2 [id number] aborte d Tylenol 325 mg oral tablet; 2 tab(s) orally every 8 hours, As Needed Ordered: 04-Apr-2017 Start : 04-Apr-2017 [facility] 325 MG Oral mg oral 04:46:11 PM {tab(s)} Quantity: 30 Felix Tam Status: Discontinued Health Tablet tablet EDT Refills: 0 Generic Substitution Allowed System [Tylenol] Tylenol 325 mg oral tablet This product contains acetaminophen. Do not use with any other product containing acetaminophen to prevent possible liver damage. doxycycline doxycycline 04/04/2017 1 [id number] aborted Vibramycin [facility] hyclate 100 hyclate 100 04:44:32 PM {cap(s)} Health MG Oral mg oral EDT System Capsule capsule doxycycline hyclate 100 mg oral capsule Avoid prolonged or excessive exposure to direct and/or artificial sunlight while taking this medication.Do not take this drug if you are .Finish all this medication unless otherwise directed by prescriber.Medication should be taken with plenty of water. Ibuprofen IBU 400 03/05/2017 1 {tab(s)} [id number] aborted IBU [facility] 400 MG Oral mg oral 11:36:15 AM Health Tablet [Ibu] tablet EDT Syste m IBU 400 mg oral tablet Do not take this drug if you are pregnan t.It is very important that you take or use this exactly as directed. Do not skip d oses or discontinue unless directed by your doctor.May cause drowsiness or dizziness .Obtain medical advice before taking any non-prescription drugs as some may affec t the action of this medication.Take with food or milk. albuterol [id number] 03/05/2017 2 [id number] aborted Proventil [facility] CFC free 90 11:36:02 AM {puff(s)} H FA Health mcg/inh EDT System inhalation aerosol Cyclobenzap cyclobenzapr 02/25/2017 1 {tab(s)} [id number] aborte d Cyclobenza [facility] rine ine 10 mg 08:43:59 AM vasquez He alth hydrochlori oral tablet EDT Hydroc hlor System de 10 MG leonela Oral Tablet cyclobenzap rine 10 mg oral tablet May cause drowsiness. Alcohol may inten sify this effect. Use care when operating dangerous machinery.Obtain medical advic e before taking any non-prescription drugs as some may affect the action of this medic ation. Ibuprofen ibuprofen 01/30/2017 1 [id number] completed ibuprofen 400 mg oral tablet; 1 tab(s) orally 3 times a day, As Needed - PRN PAINtake with food Ordered: 30-Jan-2017 Start: 30-Jan-2017 End: 09-Feb-2017 [facility] 400 MG 400 mg 02:51:14 PM {tab(s)} Quant ity: 30 Nakul sEcamilla Status: No Longer Active Health Oral oral EDT Refills: 0 Gene liz Substitution Allowed System Tablet tablet Commen ts: Do not take this drug if you are .It is very important that you take or use this exactly as directed. Do not skip doses or discontinue unless directed by your doctor.May cause drowsiness or diz ibuprofen 400 mg oral tablet Do not take this drug if you are pregnan t.It is very important that you take or use this exactly as directed. Do not skip d oses or discontinue unless directed by your doctor.May cause drowsiness or dizziness .Obtain medical advice before taking any non-prescription drugs as some may affec t the action of this medication.Take with food or milk. Diphenhydramine diphenhydrAMINE 01/30/2017 1 [id number] completed DiphenhydrAMINE [facility] Hydrochloride 50 50 mg oral 02:51:07 PM {tab(s)} Hydrochloride Health MG Oral Tablet tablet EDT Sys tem diphenhydrAMINE 50 mg oral tablet May cause drowsiness. Alcohol may inten sify this effect. Use care when operating dangerous machinery.Obtain medical advic e before taking any non-prescription drugs as some may affect the action of this medic ation. Albuterol 0.833 MG/ML ipratropium-albuterol 01/30/2017 3 [id number] completed ipratropium-albuterol 0.5 mg-2.5 mg/3 mLinhalation solution; 3 milliliter(s) inhaled 4 times a day as needed Ordered: 30-Jan-2017 Start: 30-Jan-2017 End : 06-Feb-2017 [facility] / Ipratropium [place] 0.5 mg-2.5 mg/3 02:50:27 PM mL Quantity: 90 Nakul Escamilla Status: No Longer Active Health 0.167 MG/ML Inhalant mLinhalation solution EDT Refills: 0 Generic Substitution Allowed System Solution Commen ts: For inhalation only.It is very important that you take or use this exactly as directed. Do not skip doses or discontinue unless directed by your doctor.Obtain medical advice before taking any non-presc ipratropium-albuterol 0.5 mg-2.5 mg/3 mLinhalation solution For inhalation only.It is very important that you take or use this exactly as directed. Do not skip doses or disconti nue unless directed by your doctor.Obtain medical advice before taking any non-pre scription drugs as some may affect the action of this medication. Meclizine meclizine 11/27/2016 1 [id number] completed meclizine 25 mg oral tablet; 1 tab(s) orally 2 times a day, As Needed for dizziness Ordered: 27-Nov-2016 Start: 27-Nov-2016 End: 26-Mar-2017 [facility] Hydrochloride 25 mg oral 05:14:06 PM {tab(s)} Quantity: 60 Vandana, Toan Status: No Longer Active Health 25 MG Oral tablet EST Refills: 3 Generic Substitution Allowed System Tablet meclizine 25 mg oral tablet May cause drowsiness. Alcohol may inten sify this effect. Use care when operating dangerous machinery. Cholecalciferol Aqueous 11/27/2016 3 [id number] completed Aqueous [facility] 400 UNT/ML Oral Vitamin D 05:13:57 PM mL Vitamin D Health Solution Aqueous 400 intl EST System Vitamin D 400 units/mL intl units/mL oral liquid oral liquid Multivitamin Multiple 11/27/2016 10 [id number] completed Vi-Sunitha [facility] preparation Vitamins 05:13:48 PM mL Health Multiple Vitamins oral liquid EST System oral liquid Calcium Carbonate Calcium 11/27/2016 1 [id number] completed Calcium [facility] 1250 MG Oral Oyster 05:09:08 PM {ta [address] ter Health Tablet Calcium Shell 1250 EST b(s Sandy l System Oyster Shell 1250 mg (500 mg )} mg (500 mg elemental elemental calcium) calcium) oral oral tablet tablet Budesonide 0.16 Symbicort 11/27/2016 2 [id number] completed Symbicort [facility] MG/ACTUAT / 160 mcg-4.5 05:08:53 PM {pu Health formoterol mcg/inh EST ff( System fumarate 0.0045 inhalation s)} MG/ACTUAT Metered aerosol Dose Inhaler Symbicort 160 mcg-4.5 mcg/inh inhalation aerosol Check with your doctor before becoming p regnant.For inhalation only.Rinse mouth thoroughly after use. lansoprazole lansoprazole 11/27/2016 1 [id number] completed Lansoprazole [facility] 30 MG Delayed 30 mg oral 05:08:43 PM {cap(s)} Health Release Oral delayed EST Syst em Capsule release lansoprazole capsule 30 mg oral delayed release capsule It is very important that you take or us e this exactly as directed. Do not skip doses or discontinue unless directed by your doctor.Obtain medical advice before taking any non-prescription drugs as callie e may affect the action of this medication.Swallow whole. Do not crush. Take medication on an empty stomach 1 hour before or 2 to 3 hours after a meal unle ss otherwise directed by your doctor. Simvastatin simvastatin 11/27/2016 1 [id number] completed Simvastatin [facility] 40 MG Oral 40 mg oral 05:08:36 PM {tab(s)} Health Tablet tablet EST System simvastatin 40 mg oral tablet Avoid grapefruit and grapefruit juice wh ile taking this medication.Do not take this drug if you are .It is very impo rtant that you take or use this exactly as directed. Do not skip doses or disconti nue unless directed by your doctor.Obtain medical advice before taking any non-pre scription drugs as some may affect the action of this medication.Take with food or mil k. 24 HR Minitran 0.6 11/27/2016 1 [id number] completed Minitran [facility] Nitroglycerin mg/hr 05:08:26 PM {PATCH} Health 0.6 MG/HR transdermal EST Sys tem Transdermal film, Patch extended [Minitran] release Minitran 0.6 mg/hr transdermal film, extended release Do not drink alcoholic beverages when ta anabell this medication.For external use only.It is very important that you take or use t his exactly as directed. Do not skip doses or discontinue unless directed by your d octor.Remove old patch prior to applying a new patch. 24 HR Cardizem 11/27/2016 1 [id number] completed Ca rdizem [facility] Diltiazem CD 360 05:08:16 PM {cap(s)} CD Health Hydrochloride mg/24 EST Syste m 360 MG hours Extended oral Release Oral capsule, Capsule extended [Cardizem] release Cardizem CD 360 mg/24 hours oral capsule, extended release It is very important that you take or us e this exactly as directed. Do not skip doses or discontinue unless directed by your doctor.Some non-prescription drugs may aggravate your condition. Read all labe ls carefully. If a warning appears, check with your doctor before taking.Swallow w hole. Do not crush. Cholecalciferol Mathur D 11/27/2016 0.027 [id number] aborted Mathur [facility] 14736 UNT/ML Oral 1000 intl 05:08:04 PM mL D Health Solution Mathur units/drop EST System D 1000 intl oral units/drop oral solution solution Multi-Delyn [id number] 11/27/2016 5 [id number] complete d Multi-Delyn oral liquid; 5 milliliter(s) orally once a dayDispense 16 oz bottle Ordered: 27-Nov-2016 Start: 27-Nov-2016 End: 26-Mar-2017 [facility] oral liquid 05:07:57 PM mL Quanti ty: 1 Vandana Toan Status: No Longer Active Health EST Refills: 3 System fluticasone [id number] 11/27/2016 1 [id number] completed Fluticasone [facility] 50 mcg/inh 05:03:53 PM {spray(s)} P ropionate Health nasal spray EST System For the nose.It is very important that y ou take or use this exactly as directed. Do not skip doses or discontinue unless dir ected by your doctor. Azithromycin azithromycin 11/27/2016 1 [id number] completed Azithromycin [facility] 500 MG Oral 500 mg oral 05:03:07 PM {tab(s)} Health Tablet tablet EST System azithromycin 500 mg oral tablet Do not take dairy products, antacids, or iron preparations within one hour of this medication.Finish all this medication un less otherwise directed by prescriber. Azithromycin azithromycin 11/07/2016 1 [id number] completed Azithromycin [facility] 500 MG Oral 500 mg oral 02:39:31 PM {tab(s)} Health Tablet tablet EST System azithromycin 500 mg oral tablet Do not take dairy products, antacids, or iron preparations within one hour of this medication.Finish all this medication un less otherwise directed by prescriber. Levofloxacin Levaquin 10/16/2016 1 [id number] completed Levaquin [facility] 750 MG Oral 750 mg 03:33:51 PM {tab(s)} Health Tablet oral EST System [Levaquin] tablet Levaquin 750 mg oral tablet Avoid prolonged or excessive exposure to direct and/or artificial sunlight while taking this medication.Do not take dairy products, antacids, or iron preparations within one hour of this medication.Finis h all this medication unless otherwise directed by prescriber.May cause drowsin ess or dizziness.Medication should be taken with plenty of water. buspirone busPIRone 10/16/2016 1 [id number] completed BusPIRone [facility] hydrochloride 15 mg oral 03:25:31 PM {tab(s)} Hydrochloride Health 15 MG Oral tablet EST System Tablet busPIRone 15 mg oral tablet It is very important that you take or us e this exactly as directed. Do not skip doses or discontinue unless directed by your doctor.May cause drowsiness or dizziness.May cause drowsiness. Alcohol may intensify this effect. Use care when operating dangerous machinery.Obtain med ical advice before taking any non-prescription drugs as some may affec t the action of this medication. 60 ACTUAT Advair 10/16/2016 1 [id number] aborted Ad vair [facility] Fluticasone Diskus 250 03:25:01 PM {puff(s)} Diskus Health propionate mcg-50 mcg EST Sys tem 0.25 inhalation MG/ACTUAT / powder salmeterol 0.05 MG/ACTUAT Dry Powder Inhaler Advair Diskus 250 mcg-50 mcg inhalation powder Check with your doctor before becoming p regnant.For inhalation only.Obtain medical advice before taking any non-prescriptio n drugs as some may affect the action of this medication.Rinse mouth thoroughly after use. Meclizine meclizine 10/16/2016 1 [id number] completed meclizine 12.5 mg oral tablet; 1 tab(s) orally 3 times a day, As Needed Ordered: 16-Oct-2016 Start : 16-Oct-2016 End: 15-Nov-2016 [facility] Hydrochloride 12.5 mg 03:24:09 PM {tab(s)} Quantity: 90 Iman Cabrera Status: No Longer Active Health 12.5 MG Oral oral EST Refills: 0 Generic Substitution Allowed System Tablet tablet meclizine 12.5 mg oral tablet May cause drowsiness. Alcohol may inten sify this effect. Use care when operating dangerous machinery. Sodium Deep 10/16/2016 2 {spray(s)} [id number] completed Deep [facility] Chloride Sea 03:23:34 PM Sea Heal th 0.111 Nasal EST Nasal System MEQ/ML 0.65% [place] Nasal nasal [place] spray [Deep Sea] Deep Sea Nasal 0.65% nasal spray For the nose. Dextromethorphan Robitussin 09/04/2016 10 [id number] comp leted Robitussin DM To Go 20 mg-200 mg/10 mL oral liquid; 10 milliliter(s) orally 3 times a day Ordered: 04-Sep-2016 Start: 04-Sep-2016 End: 11-Sep-2016 [facility] Hydrobromide 2 DM To Go 20 02:07:40 PM mL Quantity: 210 Jhon De León Status: No Longer Active Health MG/ML / mg-200 EST Refills: 0 Generic Substitution Allowed System Guaifenesin 20 mg/10 mL MG/ML Oral oral liquid Solution Robitussin DM To Go 20 mg-200 mg/10 mL oral liquid Check with your doctor before becoming p regnant.Medication should be taken with plenty of water. lansoprazole lansoprazole 09/04/2016 1 [id number] completed Lansoprazole [facility] 30 MG Delayed 30 mg oral 02:03:31 PM {cap(s)} Health Release Oral delayed EST Syst em Capsule release lansoprazole capsule 30 mg oral delayed release capsule It is very important that you take or us e this exactly as directed. Do not skip doses or discontinue unless directed by your doctor.Obtain medical advice before taking any non-prescription drugs as callie e may affect the action of this medication.Swallow whole. Do not crush. Take medication on an empty stomach 1 hour before or 2 to 3 hours after a meal unle ss otherwise directed by your doctor. Meclizine meclizine 09/04/2016 1 [id number] completed meclizine 25 mg oral tablet; 1 tab(s) orally 3 times a day , as needed Ordered: 04-Sep-2016 Star t: 04-Sep-2016 End: 11-Sep-2016 [facility] Hydrochloride 25 mg oral 02:01:21 PM {tab(s)} Quantity: 21 Jhon De León Status: No Longer Active Health 25 MG Oral tablet EST Refills: 0 Generic Substitution Allowed System Tablet meclizine 25 mg oral tablet May cause drowsiness. Alcohol may inten sify this effect. Use care when operating dangerous machinery. Zithromax [id number] 09/04/2016 1 [id number] completed Zithromax [facility] Z-[place] 250 01:57:52 PM {tab(s)} Z-Pa k Health mg oral EST System tablet Do not take dairy products, antacids, or iron preparations within one hour of this medication.Finish all this medication un less otherwise directed by prescriber. lansoprazole 30 lansoprazole 30 08/18/2016 1 [id number] abort ed Lansoprazole [facility] MG mg oral tablet, 02:55:50 PM {tab(s)} Health Disintegrating disintegrating EST System Oral Tablet lansoprazole 30 mg oral tablet, disintegrating It is very important that you take or us e this exactly as directed. Do not skip doses or discontinue unless directed by your doctor.Obtain medical advice before taking any non-prescription drugs as callie e may affect the action of this medication.Take medication on an empty s tomach 1 hour before or 2 to 3 hours after a meal unless otherwise directed by your d octor. 24 HR Diltiazem Cardizem 07/21/2016 1 [id number] aborted Cardizem [facility] Hydrochloride [place] 360 12:14:36 PM {tab(s)} LA Health 360 MG Extended mg/24 EDT Sys tem Release Oral hours oral Tablet tablet, [Cardizem] extended Cardizem [place] 360 release mg/24 hours oral tablet, extended release It is very important that you take or us e this exactly as directed. Do not skip doses or discontinue unless directed by your doctor.Some non-prescription drugs may aggravate your condition. Read all labe ls carefully. If a warning appears, check with your doctor before taking.Swallow w hole. Do not crush. buspirone busPIRone 07/21/2016 1 [id number] completed BusPIRone [facility] hydrochloride 15 mg oral 12:14:02 PM {tab(s)} Hydrochloride Health 15 MG Oral tablet EDT System Tablet busPIRone 15 mg oral tablet 24 HR nitroglycerin 07/21/2016 1 [id number] completed nitroglycerin 0.2 mg/hr transdermal film, extended release; 1 patch transdermal once a day Ordered: 21-Jul-2016 Start: 21-Jul-2016 End: 20-Aug-2016 [facility] Nitroglycerin 0.2 mg/hr 12:13:54 PM {PATCH} Quantity: 30 Naomie Avalos Status: No Longer Active Health 0.2 MG/HR transdermal EDT Refills: 0 Generic Substitution Allowed System Transdermal film, extended Comments: Do not drink alcoholic beverages when taking this medication.For external use only.It is very important that you take or use this exactly as directed. Do not skip doses or discontinue unless directed b Patch release nitroglycerin 0.2 mg/hr transdermal film, extended release Do not drink alcoholic beverages when ta anabell this medication.For external use only.It is very important that you take or use t his exactly as directed. Do not skip doses or discontinue unless directed by your d octor.Remove old patch prior to applying a new patch. Diphenhydramine Allergy Relief 07/21/2016 10 [id number] c ompleted Allergy Relief [facility] Hydrochloride 2.5 (Diphenhydramine 12:13:39 PM mL (diphenhydramine Health MG/ML Oral HCl) 12.5 mg/5 mL EDT H Cl) System Solution Allergy oral liquid Relief (Diphenhydramine HCl) 12.5 mg/5 mL oral liquid May cause drowsiness. Alcohol may inten sify this effect. Use care when operating dangerous machinery.Obtain medical advic e before taking any non-prescription drugs as some may affect the action of this medic ation. Dextromethorphan Robitussin 07/21/2016 10 [id number] comp leted Robitussin DM To Go 20 mg-200 mg/10 mL oral liquid; 10 milliliter(s) orally every 6 hours, As Needed Ordered: 21-Jul-2016 Start: 21-Jul-2016 End: 10-Aug-2016 [facility] Hydrobromide 2 DM To Go 20 12:09:20 PM mL Quantity: 1 Naomie Avalos Status: No Longer Active Health MG/ML / mg-200 EDT Refills: 0 Generic Substitution Allowed System Guaifenesin 20 mg/10 mL MG/ML Oral oral liquid Solution Robitussin DM To Go 20 mg-200 mg/10 mL oral liquid Check with your doctor before becoming p regnant.Medication should be taken with plenty of water. Azithromycin Azithromycin 07/21/2016 1 [id number] completed Azithromycin [facility] 250 MG Oral 5 Day Dose 12:08:19 PM {tab(s)} 5 Day Dose Health Tablet Pack 250 mg EDT Pack System Azithromycin oral tablet 5 Day Dose Pack 250 mg oral tablet Do not take dairy products, antacids, or iron preparations within one hour of this medication.Finish all this medication un less otherwise directed by prescriber. Flonase [id number] 04/11/2016 1 [id number] completed Flonase [facility] 50 11:31:04 AM {spray(s)} He alth mcg/inh EDT System nasal spray For the nose.It is very important that y ou take or use this exactly as directed. Do not skip doses or discontinue unless dir ected by your doctor. Ventolin HFA [id number] 03/31/2016 2 [id number] aborted Ventolin [facility] 90 mcg/inh 02:19:10 PM {puff(s)} HF A Health inhalation EDT System aerosol For inhalation only.It is very important that you take or use this exactly as directed. Do not skip doses or disconti nue unless directed by your doctor.Obtain medical advice before taking any non-pre scription drugs as some may affect the action of this medication.Shake well before use . Diphenhydramine Benadryl 03/31/2016 1 [id number] aborted Benadryl [facility]ide 25 25 mg 02:18:53 PM {tab(s)} Health MG Oral Tablet oral EDT Syste m [Benadryl] tablet Benadryl 25 mg oral tablet May cause drowsiness. Alcohol may inten sify this effect. Use care when operating dangerous machinery.Obtain medical advic e before taking any non-prescription drugs as some may affect the action of this medic ation. buspirone busPIRone 03/31/2016 1 [id number] aborted BusPIRone [facility] hydrochloride 15 mg oral 02:18:39 PM {tab(s)} Hydrochloride Health 15 MG Oral tablet EDT System Tablet busPIRone 15 mg oral tablet It is very important that you take or us e this exactly as directed. Do not skip doses or discontinue unless directed by your doctor.May cause drowsiness or dizziness.May cause drowsiness. Alcohol may intensify this effect. Use care when operating dangerous machinery.Obtain med [facility] advice before taking any non-prescription drugs as some may affec t the action of this medication. 24 HR nitroglycerin 03/31/2016 1 [id number] aborted nitroglycerin 0.6 mg/hr transdermal film, extended release; 1 patch transdermal once a day Ordered: 31-Mar-2016 Start: 31-Mar-2016 End: 28-Jun-2016 [facility] Nitroglycerin 0.6 mg/hr 02:18:32 PM {PATCH} Quantity: 1 Marcin Mueller Status: Discontinued Health 0.6 MG/HR transdermal EDT Refills: 2 Generic Substitution Allowed System Transdermal film, extended Comments: Do not drink alcoholic beverages when taking this medication.For external use only.It is very important that you take or use this exactly as directed. Do not skip doses or discontinue unless directed b Patch release nitroglycerin 0.6 mg/hr transdermal film, extended release Do not drink alcoholic beverages when ta anabell this medication.For external use only.It is very important that you take or use t his exactly as directed. Do not skip doses or discontinue unless directed by your d octor.Remove old patch prior to applying a new patch. Aspirin aspirin 03/31/2016 1 {tab(s)} [id number] aborted Halfprin [facility] 81 MG 81 mg 02:17:53 PM Health Oral oral EDT System Tablet tablet aspirin 81 mg oral tablet Take with food or milk. Meclizine meclizine 02/28/2016 1 [id number] aborted meclizine 25 mg oral tablet; 1 tab(s) orally 2 times a day Ordered: 28-Feb-2016 Start: 28-Feb-20 16 End: 27-May-2016 [facility] Hydrochloride 25 mg oral 11:22:14 AM {tab(s)} Quantity: 60 Stas Muñiz Status: Discontinued Health 25 MG Oral tablet EDT Refills: 2 Generic Substitution Allowed System Tablet meclizine 25 mg oral tablet May cause drowsiness. Alcohol may inten sify this effect. Use care when operating dangerous machinery. Sodium Deep 12/31/2015 2 {spray(s)} [id number] aborted Deep [facility] Chloride Sea 12:54:54 PM Sea Heal th 0.111 Nasal EDT Nasal System MEQ/ML 0.65% [place] Nasal nasal [place] spray [Deep Sea] Deep Sea Nasal 0.65% nasal spray For the nose. Prednisone predniSONE 12/31/2015 2 [id number] aborted PredniSONE [facility] 20 MG Oral 20 mg oral 12:54:20 PM {tab(s)} Health Tablet tablet EDT System predniSONE 20 mg oral tablet It is very important that you take or us e this exactly as directed. Do not skip doses or discontinue unless directed by your doctor.Obtain medical advice before taking any non-prescription drugs as callie e may affect the action of this medication.Take with food or milk. Loratadine Alavert 12/31/2015 1 {tab(s)} [id number] completed Alavert [facility] 10 MG Oral 10 mg 12:53:40 PM H ealth Tablet oral EDT System [Alavert] tablet Alavert 10 mg oral tablet May cause drowsiness. Alcohol may inten sify this effect. Use care when operating dangerous machinery.Obtain medical advic e before taking any non-prescription drugs as some may affect the action of this medic ation. Docusate Colace 12/24/2015 1 {cap(s)} [id number] completed Colace [facility] Sodium 100 100 mg 10:04:03 AM Health MG Oral oral EDT System Capsule capsule [Colace] Colace 100 mg oral capsule Medication should be taken with plenty o f water. Meclizine meclizine 12/24/2015 1 [id number] aborted meclizine 25 mg oral tablet; 1 tab(s) orally 2 times a day, As Needed Ordered: 24-Dec-2015 Start : 24-Dec-2015 End: 22-Mar-2016 [facility] Hydrochloride 25 mg oral 10:03:43 AM {tab(s)} Quantity: 60 Deysi Govea Status: Discontinued Health 25 MG Oral tablet EDT Refills: 2 Generic Substitution Allowed System Tablet meclizine 25 mg oral tablet May cause drowsiness. Alcohol may inten sify this effect. Use care when operating dangerous machinery. Diphenhydramine Benadryl 12/24/2015 1 [id number] aborted Benadryl [facility] Hydrochloride 25 25 mg 10:03:05 AM {tab(s)} Health MG Oral Tablet oral EDT Syste m [Benadryl] tablet Benadryl 25 mg oral tablet May cause drowsiness. Alcohol may inten sify this effect. Use care when operating dangerous machinery.Obtain medical advic e before taking any non-prescription drugs as some may affect the action of this medic ation. Hydralazine hydrALAZINE 12/14/2015 1 [id number] aborted HydrALAZINE [facility] Hydrochloride 10 mg oral 11:35:39 AM {tab(s)} Hydrochloride Health 10 MG Oral tablet EST System Tablet hydrALAZINE 10 mg oral tablet It is very important that you take or us e this exactly as directed. Do not skip doses or discontinue unless directed by your doctor.Some non-prescription drugs may aggravate your condition. Read all labe ls carefully. If a warning appears, check with your doctor before taking. Simvastatin simvastatin 12/14/2015 1 [id number] aborted Simvastatin [facility] 40 MG Oral 40 mg oral 11:35:11 AM {tab(s)} Health Tablet tablet EST System simvastatin 40 mg oral tablet Avoid grapefruit and grapefruit juice wh ile taking this medication.Do not take this drug if you are .It is very impo rtant that you take or use this exactly as directed. Do not skip doses or disconti nue unless directed by your doctor.Obtain medical advice before taking any non-pre scription drugs as some may affect the action of this medication.Take with food or mil k. Diltiazem diltiazem 12/14/2015 360 aborted diltiazem 24 hour extended release; 360 milligram(s) once a day Ordered: 14-Dec-2015 Start: 14-Dec-19 End: 10-Jun-2016 [facility] diltiazem 24 hour 11:35:05 AM mg Quant ity: 30 Naomie Avalos Status: Discontinued Health 24 hour extended EST Refills: 5 System extended release release Albuterol albuterol 12/14/2015 3 mL C aborted albuterol 2.5 mg/3 mL (0.083%) inhalation solution; 3 milliliter(s) inhaled 4 times a day, As Needed - PRN WHEEZING Ordered: 14-Dec-2015 Start: 14-Dec-2015 End: 10-Jun-2016 [facility] 0.83 MG/ML 2.5 mg/3 11:34:48 AM 3 Ronald ntity: 100 Naomie Avalos Status: Discontinued Health Inhalant mL EST 8 Refills: 5 Generic Substitution Allowed System Solution (0.083%) 2 Co mments: For inhalation only.It is very important that you take or use this exactly as directed. Do not skip doses or discontinue unless directed by your doctor.Obtain medical advice before taking a [place] non-presc albuterol inhalation 1 2.5 mg/3 solution 6 mL (0.083%) inhalation solution For inhalation only.It is very important that you take or use this exactly as directed. Do not skip doses or disconti nue unless directed by your doctor.Obtain medical advice before taking any non-pre scription drugs as some may affect the action of this medication. Dextromethorphan Hydrobromide dextromethorphan-guaiFENesin 11/28/2015 5 [id number] completed dextromethorpha n-guaiFENesin 5 mg-100 mg/5 mL oral liquid; 5 milliliter(s) orally every 6 hours, As Needed for cough Ordered: 28-Nov-2015 Start: 28-Nov-2015 End: 08-Dec-2015 [facility] 1 MG/ML / Guaifenesin 20 5 mg-100 mg/5 mL oral liquid 12:04:28 PM mL Quantity: 100 Toan Ross Status: No Longer Active Health MG/ML Oral Solution EST Refil ls: 0 Generic Substitution Allowed System dextromethorphan-guaiFENesin 5 mg-100 mg/5 mL oral liquid Medication should be taken with plenty o f water. Zithromax [id number] 11/28/2015 0 [id number] completed Zithromax [facility]-[place] 250 11:52:19 AM Z-[place] He alth mg oral EST System tablet Do not take dairy products, antacids, or iron preparations within one hour of this medication.Finish all this medication un less otherwise directed by prescriber. benzonatate benzonatate 11/04/2015 1 [id number] aborted benzonatate 200 mg oral capsule; 1 cap(s) orally 3 times a day Ordered: 04-Nov-2015 Start: 04-Nov-2015 [facility] 200 MG Oral 200 mg oral 06:24:53 PM {cap(s)} Quantity: 30 Audie Jose M Mejia Status: Discontinued Health Capsule capsule EST Refills: 0 Generic Substitution Allowed System benzonatate 200 mg oral capsule May cause drowsiness. Alcohol may inten sify this effect. Use care when operating dangerous machinery.Swallow whole. Do n ot crush. Azithromycin Azithromycin 11/04/2015 1 [id number] completed Azithromycin [facility] 500 MG Oral 3 Day Dose 06:24:17 PM {tab(s)} 3 Day Dose Health Tablet Pack 500 mg EST Pack System Azithromycin oral tablet 3 Day Dose Pack 500 mg oral tablet Do not take dairy products, antacids, or iron preparations within one hour of this medication.Finish all this medication un less otherwise directed by prescriber. Hydrochlorothiazide hydrochlorothiazide 10/29/2015 1 [id number] completed Hydrochlorothiazide [facility] 12.5 MG Oral Tablet 12.5 mg oral tablet 03:08:11 PM {tab(s)} Health hydrochlorothiazide EST System 12.5 mg oral tablet Azithromycin Azithromycin 10/17/2015 1 [id number] comple nayeli Azithromycin 5 Day Dose Pack 250 mg oral tablet; 2 tabs po x first day,then 1 tab po x next 4 days Ordered: 17-Oct-2015 Start: 17-Oct-2015 End: 22-Oct-2015 [facility] 250 MG Oral 5 Day Dose 02:28:10 PM {dose} Quantity: 1 Best Lo Status: No Longer Active Health Tablet Pack 250 mg EST Refills: 0 Generic Substitution Allowed System Azithromycin oral tablet 5 Day Dose Pack 250 mg oral tablet Do not take dairy products, antacids, or iron preparations within one hour of this medication.Finish all this medication un less otherwise directed by prescriber. Calcium calcium 10/16/2015 1 [id number] completed calcium carbonate 500 mg (200 mg elemental calcium) oral tablet, chewable; 1 tab(s) orally once a day Ordered: 16-Oct-2015 Start: 16-Oct-2015 End: 13-Jan-2016 [facility] Carbonate carbonate 11:55:25 AM {tab(s)} Quantity: 30 Marcelo Méndez Status: No Longer Active Health 500 MG 500 mg EST Refills: 2 Generic Substitution Allowed System Chewable (200 mg Tablet elemental calcium calcium) carbonate oral 500 mg tablet, (200 mg chewable elemental calcium) oral tablet, chewable Chew tablets before swallowing Cholecalciferol cholecalciferol 10/16/2015 3 [id number] compl eted Enfamil [facility] 400 UNT/ML Oral 400 intl 11:54:53 AM mL [facility] Solution units/mL oral EST Sy stem cholecalciferol liquid 400 intl units/mL oral liquid pantoprazole pantoprazole 10/16/2015 1 [id number] aborte d pantoprazole 40 mg oral delayed release tablet; 1 tab(s) orally once a day Ordered: 16-Oct-2015 Start: 16-Oct-2015 End: 13-Jan-2016 [facility] 40 MG Delayed 40 mg oral 11:54:10 AM {tab(s)} Quantity: 30 Marcelo Méndez Status: Discontinued Health Release Oral delayed EST Refills: 2 System Tablet release pantoprazole tablet 40 mg oral delayed release tablet Albuterol albuterol-ipr 10/15/2015 3 mL [id number] complete albuterol- ipratropium 2.5 mg-0.5 mg/3 mL inhalation solution; 3 milliliter(s) inhaled 2 times a day as needed Ordered: 15-Oct-2015 Start: 15-Oct-2015 End: 12-Jan-2016 [facility] 0.833 MG/ML / atropium 2.5 12:38:14 PM d Quantity: 60 Manoj, Sorayajulia Status: No Longer Active Health Ipratropium mg-0.5 mg/3 EST Refill s: 2 Generic Substitution Allowed System [place] 0.167 mL inhalation Comments: For inhalation only.It is very important that you take or use this exactly as directed. Do not skip doses or discontinue unless directed by your doctor.Obtain medical advice before taking a [place] non-presc MG/ML solution Inhalant Solution albuterol-ipr atropium 2.5 mg-0.5 mg/3 mL inhalation solution For inhalation only.It is very important that you take or use this exactly as directed. Do not skip doses or disconti nue unless directed by your doctor.Obtain medical advice before taking any non-pre scription drugs as some may affect the action of this medication. Docusate Sodium docusate-senna 10/15/2015 2 [id number] aborte d Senna S [facility] 50 MG / 50 mg-8.6 mg 12:00:00 AM Health sennosides, [facility] oral tablet EST System 8.6 MG Oral Tablet docusate-senna 50 mg-8.6 mg oral tablet Ondansetron 8 MG ondansetron 8 mg 10/15/2015 1 [id number] com pleted Ondanse [facility] Disintegrating oral tablet, 12:00:00 AM {t [facility] Oral Tablet disintegrating EST ab Hyd roch System ondansetron 8 mg (s loride oral tablet, )} disintegrating Clonazepam 0.5 MG clonazePAM 0.5 10/15/2015 1 [id number] comp leted KlonoPI [facility] Oral Tablet mg oral tablet 12:00:00 AM {t N Health clonazePAM 0.5 mg EST ab Sy stem oral tablet (s )} Hydrochlorothiazi hydrochlorothiaz 10/15/2015 1 [id number] co mpleted Hydroch [facility] de 12.5 MG Oral leonela 12.5 mg oral 12:00:00 AM {c lorothi Health Capsule capsule EST ap azide System hydrochlorothiazi (s de 12.5 mg oral )} capsule Psyllium psyllium psyllium 6 g 10/15/2015 1 [id number] comple nayeli Konsyl [facility] 6 g oral powder oral powder for 12:00:00 AM {P Health for reconstitution EST KT Syste m reconstitution (S )} Amoxicillin 500 MG / amoxicillin-clavulanate 10/15/2015 1 [id number] completed amoxicillin-clavulanate 500 mg-125 mg oral tablet; 1 tab(s) orally 3 times a day Ordered: 15-Oct-2015 Start: 15-Oct-2015 End: 20-Oct-2015 [facility] Clavulanate 125 MG Oral 500 mg-125 mg oral 12:00:00 AM {tab(s)} Quantity: 15 Chayo Aranda Status: No Longer Active Health Tablet tablet EST Refills: 0 System amoxicillin-clavulanate 500 mg-125 mg oral tablet Docusate docusate 10/05/2015 5 mL [id number] aborted D ocusate [facility] Sodium 10 10 mg/mL 07:10:40 PM [facility] MG/ML Oral oral EST System Suspension liquid docusate 10 mg/mL oral liquid Medication should be taken with plenty o f water. Sodium Nasal 09/06/2015 2 completed Nasal Saline; 2 spray(s) 2 times a day Ordered: 06-Sep-2015 Start: 06-Sep-2015 End: 04-Dec-2015 [facility] Chloride Saline 12:28:25 PM {spray(s)} Q uantity: 120 Marcelo Méndez Status: No Longer Active Health Nasal EST Refills: 2 System Product Nasal Saline Ibuprofen IBU 600 09/06/2015 1 {tab(s)} [id number] aborted IBU [facility] 600 MG Oral mg oral 12:25:05 PM Health Tablet [Ibu] tablet EST Syste m IBU 600 mg oral tablet Do not take this drug if you are pregnan t.It is very important that you take or use this exactly as directed. Do not skip d oses or discontinue unless directed by your doctor.May cause drowsiness or dizziness .Obtain medical advice before taking any non-prescription drugs as some may affec t the action of this medication.Take with food or milk. lansoprazole lansoprazole 09/06/2015 1 [id number] aborted Lansoprazole [facility] 30 MG Delayed 30 mg oral 12:16:54 PM {cap(s)} Health Release Oral delayed EST Syst em Capsule release lansoprazole capsule 30 mg oral delayed release capsule It is very important that you take or us e this exactly as directed. Do not skip doses or discontinue unless directed by your doctor.Obtain medical advice before taking any non-prescription drugs as callie e may affect the action of this medication.Swallow whole. Do not crush. Take medication on an empty stomach 1 hour before or 2 to 3 hours after a meal unle ss otherwise directed by your doctor. Diphenhydramine Benadryl 09/06/2015 1 [id number] aborted Benadryl [facility] Hydrochloride 25 25 mg 12:13:04 PM {tab(s)} Health MG Oral Tablet oral EST Syste m [Benadryl] tablet Benadryl 25 mg oral tablet May cause drowsiness. Alcohol may inten sify this effect. Use care when operating dangerous machinery.Obtain medical advic e before taking any non-prescription drugs as some may affect the action of this medic ation. 200 ACTUAT ProAir HFA 09/06/2015 2 [id number] completed ProAir HFA 90 mcg/inh inhalation aerosol; 2 puff(s) inhaled 4 times a day Ordered: 06-Sep-2015 St art: 06-Sep-2015 End: 02-Feb-2016 [facility] Albuterol 90 mcg/inh 12:05:37 PM {puff(s)} Quantity: 120 Marcelo Méndez Status: No Longer Active Health 0.09 inhalation EST Refills: 4 Generic Substitution Allowed System MG/ACTUAT aerosol Co mments: For inhalation only.It is very important that you take or use this exactly as directed. Do not skip doses or discontinue unless directed by your doctor.Obtain medical advice before taking any non-presc Metered Dose Inhaler [ProAir] ProAir HFA 90 mcg/inh inhalation aerosol For inhalation only.It is very important that you take or use this exactly as directed. Do not skip doses or disconti nue unless directed by your doctor.Obtain medical advice before taking any non-pre scription drugs as some may affect the action of this medication.Shake well before use . 24 HR nitroglycerin 09/06/2015 1 [id number] aborted nitroglycerin 0.2 mg/hr transdermal film, extended release; 1 patch transdermal once a daym prn Ordered: 06-Sep-2015 Start: 06-Sep-2015 End: 02-Feb-2016 [facility] Nitroglycerin 0.2 mg/hr 12:05:30 PM {PATCH} Quantity: 30 Marcelo Méndez Status: Discontinued Health 0.2 MG/HR transdermal EST Refills: 4 Generic Substitution Allowed System Transdermal film, extended Comments: Do not drink alcoholic beverages when taking this medication.For external use only.It is very important that you take or use this exactly as directed. Do not skip doses or discontinue unless directed b Patch release nitroglycerin 0.2 mg/hr transdermal film, extended release Do not drink alcoholic beverages when ta anabell this medication.For external use only.It is very important that you take or use t his exactly as directed. Do not skip doses or discontinue unless directed by your d octor.Remove old patch prior to applying a new patch. Spironolactone spironolactone 09/06/2015 1 [id number] aborted Spironolactone [facility] 25 MG Oral 25 mg oral 12:05:17 PM {tab(s)} Health Tablet tablet EST System spironolactone 25 mg oral tablet It is very important that you take or us e this exactly as directed. Do not skip doses or discontinue unless directed by your doctor.May cause drowsiness or dizziness. 24 HR Diltiazem diltiazem 08/27/2015 1 [id number] aborted Cardizem [facility] Hydrochloride 360 mg/24 02:11:12 PM {cap(s)} CD Health 360 MG Extended hours oral EST System Release Oral capsule, Capsule extended diltiazem 360 release mg/24 hours oral capsule, extended release It is very important that you take or us e this exactly as directed. Do not skip doses or discontinue unless directed by your doctor.Some non-prescription drugs may aggravate your condition. Read all labe ls carefully. If a warning appears, check with your doctor before taking.Swallow w hole. Do not crush. Meclizine meclizine 08/15/2015 1 [id number] aborted meclizine 25 mg oral tablet; 1 tab(s) orally 3 times a day Ordered: 15-Aug-2015 Start: 15-Aug-20 End: 13-Oct-2015 [facility] Hydrochloride 25 mg oral 11:47:55 AM {tab(s)} Quantity: 90 Mesfin Navarrete Status: Discontinued Health 25 MG Oral tablet EST Refills: 1 Generic Substitution Allowed System Tablet meclizine 25 mg oral tablet May cause drowsiness. Alcohol may inten sify this effect. Use care when operating dangerous machinery. Sodium [place] Sal[place] 08/15/2015 2 {gtt} [id number] completed [place] [facility] Chloride 0.65% 11:21:09 AM Saline H ealth 0.111 nasal EST Nasal System MEQ/ML solution Nasal Solution [[place] Sal[place] Nasal] [place] Saline 0.65% nasal solution For the nose. 24 HR Metoprolol 08/15/2015 1 [id number] aborted Me toprolol [facility] metoprolol Succinate 11:13:38 AM {tab(s)} Succinate Health succinate 25 ER 25 mg EST ER Sys tem MG Extended oral Release Oral tablet, Tablet extended Metoprolol release Succinate ER 25 mg oral tablet, extended release It is very important that you take or us e this exactly as directed. Do not skip doses or discontinue unless directed by your doctor.May cause drowsiness. Alcohol may intensify this effect. Use care whe n operating dangerous machinery.Some non-prescription drugs may aggravate you r condition. Read all labels carefully. If a warning appears, check with your docto r before taking.Swallow whole. Do not crush.Take with food or milk.This drug m ay impair the ability to drive or operate machinery. Use care until you become fa miliar with its effects. Nasonex [id number] 08/15/2015 2 {spray(s)} [id number] aborted Nasonex [facility] 50 11:08:34 AM Health mcg/inh EST System nasal spray For the nose.It is very important that y ou take or use this exactly as directed. Do not skip doses or discontinue unless dir ected by your doctor.Shake well before use. Meclizine meclizine 08/10/2015 1 [id number] completed meclizine 25 mg oral tablet; 1 tab(s) orally 4 times a day, As Needed for dizziness Ordered: 10-Aug-2015 Start: 10-Aug-2015 End: 15-Aug-2015 [facility] Hydrochloride 25 mg oral 07:56:10 PM {tab(s)} Quantity: 20 Oscar Bunn Status: No Longer Active Health 25 MG Oral tablet EST Refills: 0 Generic Substitution Allowed System Tablet meclizine 25 mg oral tablet May cause drowsiness. Alcohol may inten sify this effect. Use care when operating dangerous machinery. Acetaminophen 300 MG / acetaminophen-codeine 07/31/2015 1 [id number] completed acetaminophen-codeine 300 mg-30 mg oral tablet; 1 tab(s) orally every 6 hours, As Needed - PRN PAIN - PRN PAIN or TEMP > 100.4 Deg F Ordered: 31-Jul-2015 Start: 31-Jul-2015 End: 07-Aug-2015 [facility] Codeine Phosphate 30 300 mg-30 mg oral 03:03:43 PM {tab(s)} Quantity: 28 Chiki Fernandez Status: No Longer Active Health MG Oral Tablet tablet EDT Refills: 0 Generic Substitution Allowed System acetaminophen-codeine Comments: Caution federal law prohibits the transfer of this drug to any person other than the person for whom it was prescribed.May cause drowsiness. Alcohol may intensify this effect. Use care when operating 300 mg-30 mg oral tablet Caution federal law prohibits the transf er of this drug to any person other than the person for whom it was prescribed.May ca use drowsiness. Alcohol may intensify this effect. Use care when operating dangero us machinery.This product contains acetaminophen. Do not use with any oth er product containing acetaminophen to prevent possible liver damage.Using more of this medication than prescribed may cause serious breathing problems. Amoxicillin 875 MG / amoxicillin-clavulanate 07/31/2015 875 C38 [id number] completed Amoxicillin-Clavulanate [facility] Clavulanate 125 MG Oral 875 mg-125 mg oral 03:03:16 PM mg Health Tablet tablet EDT System amoxicillin-clavulanate 875 mg-125 mg oral tablet Finish all this medication unless otherw ise directed by prescriber.Take with food or milk. Ventolin [id number] 07/13/2015 2 [id number] completed Ventolin [facility] HFA 90 11:04:01 AM {puff(s)} HFA H ealth mcg/inh EDT System inhalation aerosol For inhalation only.It is very important that you take or use this exactly as directed. Do not skip doses or disconti nue unless directed by your doctor.Obtain medical advice before taking any non-pre scription drugs as some may affect the action of this medication.Shake well before use . 24 HR Cardizem 07/13/2015 1 [id number] completed Ca rdizem [facility] Diltiazem CD 360 11:01:29 AM {cap(s)} CD Health Hydrochloride mg/24 EDT Syste m 360 MG hours Extended oral Release Oral capsule, Capsule extended [Cardizem] release Cardizem CD 360 mg/24 hours oral capsule, extended release It is very important that you take or us e this exactly as directed. Do not skip doses or discontinue unless directed by your doctor.Some non-prescription drugs may aggravate your condition. Read all labe ls carefully. If a warning appears, check with your doctor before taking.Swallow w hole. Do not crush. Diphenhydramine Allergy 07/13/2015 1 [id number] completed Allergy [facility] Hydrochloride 25 25 mg 10:40:28 AM {tab(s)} Health MG Oral Tablet oral EDT Syste m Allergy 25 mg tablet oral tablet May cause drowsiness. Alcohol may inten sify this effect. Use care when operating dangerous machinery.Obtain medical advic e before taking any non-prescription drugs as some may affect the action of this medic ation. Calcium Carbonate calcium (as 07/13/2015 1 [id number] aborted Os-Tc [facility] 1250 MG / carbonate)-vitamin 10:38:35 AM {tab(s)} 500 + D Health Cholecalciferol D 500 mg-400 intl EDT System 0.01 MG Chewable units oral tablet, Tablet calcium (as chewable carbonate)-vitamin D 500 mg-400 intl units oral tablet, chewable Take with food or milk. buspirone busPIRone 07/13/2015 1 [id number] completed BusPIRone [facility] hydrochloride 15 mg oral 10:36:21 AM {tab(s)} Hydrochloride Health 15 MG Oral tablet EDT System Tablet busPIRone 15 mg oral tablet It is very important that you take or us e this exactly as directed. Do not skip doses or discontinue unless directed by your doctor.May cause drowsiness or dizziness.May cause drowsiness. Alcohol may intensify this effect. Use care when operating dangerous machinery.Obtain med ical advice before taking any non-prescription drugs as some may affec t the action of this medication. Erythromycin erythromycin 07/13/2015 1 [id number] completed Erythromycin [facility] 500 MG Oral 500 mg oral 10:34:32 AM {tab(s)} Base Health Tablet tablet EDT System erythromycin 500 mg oral tablet Finish all this medication unless otherw ise directed by prescriber.Take medication on an empty stomach 1 hour before or 2 to 3 hours after a meal unless otherwise directed by your doctor. Claritin-D 07/13/2015 1 completed Cla ritin-D 24 Hour; 1 once a day prn Ordered: 13-Jul-2015 Start: 13-Jul-2015 End: 23-Jul-2015 [facility] 24 Hour 10:34:00 AM Quantity: 10 [place], Min Status: No Longer Active Health EDT Refills: 0 System Simvastatin simvastatin 07/13/2015 1 [id number] aborted Simvastatin [facility] 40 MG Oral 40 mg oral 10:33:52 AM {tab(s)} Health Tablet tablet EDT System simvastatin 40 mg oral tablet Avoid grapefruit and grapefruit juice wh ile taking this medication.Do not take this drug if you are .It is very impo rtant that you take or use this exactly as directed. Do not skip doses or disconti nue unless directed by your doctor.Obtain medical advice before taking any non-pre scription drugs as some may affect the action of this medication.Take with food or mil k. lansoprazole lansoprazole 07/13/2015 1 [id number] aborted Lansoprazole [facility] 30 MG Delayed 30 mg oral 10:33:44 AM {cap(s)} Health Release Oral delayed EDT Syst em Capsule release lansoprazole capsule 30 mg oral delayed release capsule It is very important that you take or us e this exactly as directed. Do not skip doses or discontinue unless directed by your doctor.Obtain medical advice before taking any non-prescription drugs as callie e may affect the action of this medication.Swallow whole. Do not crush. Take medication on an empty stomach 1 hour before or 2 to 3 hours after a meal unle ss otherwise directed by your doctor. POLYETHYLENE ClearLax oral 05/01/2015 238 [id number] completed ClearLax [facility] GLYCOL 3350 142 powder for 03:26:04 PM g Health MG/ML Oral reconstitution EDT System Solution [ClearLax] ClearLax oral powder for reconstitution Dilute this medication with liquid befor e administration.It is very important that you take or use this exactly as directed . Do not skip doses or discontinue unless directed by your doctor. POLYETHYLENE polyethylene 05/01/2015 17 [id number] completed Polyethylene [facility] GLYCOL 3350 142 glycol 3350 03:25:09 PM g Glycol 3350 Health MG/ML Oral oral powder for EDT System Solution reconstitution polyethylene glycol 3350 oral powder for reconstitution Dilute this medication with liquid befor e administration.It is very important that you take or use this exactly as directed . Do not skip doses or discontinue unless directed by your doctor. Erythromycin erythromycin 04/10/2015 1 [id number] completed Erythromycin [facility] 500 MG Oral 500 mg oral 10:04:45 AM {tab(s)} Base [facility] Tablet tablet EDT System erythromycin 500 mg oral tablet Finish all this medication unless otherw ise directed by prescriber.Take medication on an empty stomach 1 hour before or 2 to 3 hours after a meal unless otherwise directed by your doctor. Azithromycin azithromycin 04/05/2015 1 [id number] completed Azithromycin [facility] 500 MG Oral 500 mg oral 06:47:17 PM {tab(s)} Health Tablet tablet EDT System azithromycin 500 mg oral tablet Do not take dairy products, antacids, or iron preparations within one hour of this medication.Finish all this medication un less otherwise directed by prescriber. Sodium sodium 04/05/2015 1 {spray(s)} [id number] completed Simply [facility] Chloride chloride 06:22:53 PM Salin e Health 0.154 0.9% nasal EDT System MEQ/ML spray Nasal [place] sodium chloride 0.9% nasal spray For the nose. Oxymetazoline Afrin 04/05/2015 2 [id number] completed Afrin [facility] hydrochloride 0.05% 06:20:10 PM {spray(s)} Health 0.5 MG/ML Nasal nasal EDT Sys tem [place] [Afrin] spray Afrin 0.05% nasal spray For the nose. Azithromycin azithromycin 04/05/2015 1 [id number] completed Azithromycin [facility] 250 MG Oral 250 mg oral 06:17:35 PM {tab(s)} Health Tablet tablet EDT System azithromycin 250 mg oral tablet Do not take dairy products, antacids, or iron preparations within one hour of this medication.Finish all this medication un less otherwise directed by prescriber. Azithromycin azithromycin 04/05/2015 1 [id number] aborted Azithromycin [facility] 500 MG Oral 500 mg oral 06:14:00 PM {tab(s)} Health Tablet tablet EDT System azithromycin 500 mg oral tablet Do not take dairy products, antacids, or iron preparations within one hour of this medication.Finish all this medication un less otherwise directed by prescriber. Diphenhydramine diphenhydrAMINE 03/29/2015 1 [id number] completed DiphenhydrAMINE [facility] Hydrochloride 50 50 mg oral 11:13:40 AM {tab(s)} Hydrochloride Health MG Oral Tablet tablet EDT Sys tem diphenhydrAMINE 50 mg oral tablet May cause drowsiness. Alcohol may inten sify this effect. Use care when operating dangerous machinery.Obtain medical advic e before taking any non-prescription drugs as some may affect the action of this medic ation. Flonase [id number] 03/29/2015 1 [id number] completed Flonase [facility] 50 11:11:15 AM {spray(s)} He alth mcg/inh EDT System nasal spray For the nose.It is very important that y ou take or use this exactly as directed. Do not skip doses or discontinue unless dir ected by your doctor. Docusate Doc-Q-Lace 03/09/2015 10 [id number] completed Doc-Q-Lace 10 mg/mL oral liquid; 10 milliliter(s) orally 2 times a day Ordered: 10-Apr-2015 Start: 09-Mar-2015 End: 08-Jul-2015 [facility] Sodium 10 10 mg/mL 09:53:57 AM mL Yovanny tity: 600 Maximo Rojas Status: No Longer Active Health MG/ML Oral oral liquid EDT Refills : 2 Generic Substitution Allowed System Suspension Doc-Q-Lace 10 mg/mL oral liquid Medication should be taken with plenty o f water. Albuterol albuterol 03/09/2015 3 [id number] aborted albuterol 2.5 mg/3 mL (0.083%) inhalation solution; 3 milliliter(s) inhaled 4 times a day, As Needed - PRN WHEEZING Ordered: 10-Apr-2015 Start: 09-Mar-2015 End: 08-Jul-2015 [facility] 0.83 MG/ML 2.5 mg/3 mL 09:50:15 AM mL Quantity: 100 Maximo Rojas Status: Discontinued Health Inhalant (0.083%) EDT Refills: 2 Generic Substitution Allowed System Solution inhalation Comments: For inhalation only.It is very important that you take or use this exactly as directed. Do not skip doses or discontinue unless directed by your doctor.Obtain medical advice before taking a [place] non-presc albuterol solution 2.5 mg/3 mL (0.083%) inhalation solution For inhalation only.It is very important that you take or use this exactly as directed. Do not skip doses or disconti nue unless directed by your doctor.Obtain medical advice before taking any non-pre scription drugs as some may affect the action of this medication. Spironolactone spironolactone 03/09/2015 1 [id number] complet ed Spironolactone [facility] 50 MG Oral 50 mg oral 09:47:49 AM {tab(s)} Health Tablet tablet EDT System spironolactone 50 mg oral tablet It is very important that you take or us e this exactly as directed. Do not skip doses or discontinue unless directed by your doctor.May cause drowsiness or dizziness. Docusate Doc-Q-Lax 03/09/2015 1 [id number] aborted Doc-Q-Lax [facility] Sodium 50 MG 50 mg-8.6 09:39:54 AM {tab(s)} Health / sennosides, mg oral EDT Sys tem [facility] 8.6 MG tablet Oral Tablet Doc-Q-Lax 50 mg-8.6 mg oral tablet Medication should be taken with plenty o f water. buspirone busPIRone 03/09/2015 1 [id number] completed BusPIRone [facility] hydrochloride 15 mg oral 09:39:45 AM {tab(s)} Hydrochloride Health 15 MG Oral tablet EDT System Tablet busPIRone 15 mg oral tablet It is very important that you take or us e this exactly as directed. Do not skip doses or discontinue unless directed by your doctor.May cause drowsiness or dizziness.May cause drowsiness. Alcohol may intensify this effect. Use care when operating dangerous machinery.Obtain med ica advice before taking any non-prescription drugs as some may affec t the action of this medication. Metronidazole Flagyl 01/08/2015 1 {tab(s)} [id number] aborted Flagyl [facility] 500 MG Oral 500 mg 02:17:26 PM Health Tablet [Flagyl] oral EDT Syst em Flagyl 500 mg tablet oral tablet Do not drink alcoholic beverages when ta anabell this medication.Finish all this medication unless otherwise directed by prescriber.May discolor urine or feces. Azithromycin azithromycin 01/08/2015 1 [id number] aborted Azithromycin [facility] 500 MG Oral 500 mg oral 02:16:41 PM {tab(s)} Health Tablet tablet EDT System azithromycin 500 mg oral tablet Do not take dairy products, antacids, or iron preparations within one hour of this medication.Finish all this medication un less otherwise directed by prescriber. Flonase [id number] 01/06/2015 1 [id number] aborted Flonase 50 mcg/inh nasal spray; 1 spray(s) nasal 2 times a day Ordered: 06-Jan-2015 Start: End: 13-Jan-2015 [facility] 50 07:14:14 AM {spray(s)} Quantit y: 1 Yves Tee Status: Discontinued Health mcg/inh EDT Refills: 0 G eneric Substitution Allowed System nasal spray For the nose.It is very important that y ou take or use this exactly as directed. Do not skip doses or discontinue unless dir ected by your doctor. Prednisone predniSONE 01/06/2015 1 [id number] aborted PredniSONE [facility] 50 MG Oral 50 mg oral 07:13:07 AM {tab(s)} Health Tablet tablet EDT System predniSONE 50 mg oral tablet It is very important that you take or us e this exactly as directed. Do not skip doses or discontinue unless directed by your doctor.Obtain medical advice before taking any non-prescription drugs as callie e may affect the action of this medication.Take with food or milk. Erythromycin erythromycin 01/06/2015 1 [id number] aborted Erythromycin [facility] 500 MG Oral 500 mg oral 06:43:22 AM {tab(s)} [facility] Tablet tablet EDT System erythromycin 500 mg oral tablet Finish all this medication unless otherw ise directed by prescriber.Take medication on an empty stomach 1 hour before or 2 to 3 hours after a meal unless otherwise directed by your doctor. Ibuprofen IBU 600 01/06/2015 1 {tab(s)} [id number] aborted IBU [facility] 600 MG Oral mg oral 06:42:04 AM Health Tablet [Ibu] tablet EDT Syste m IBU 600 mg oral tablet Do not take this drug if you are pregnan t.It is very important that you take or use this exactly as directed. Do not skip d oses or discontinue unless directed by your doctor.May cause drowsiness or dizziness .Obtain medical advice before taking any non-prescription drugs as some may affec t the action of this medication.Take with food or milk. Clindamycin clindamycin 11/24/2014 1 [id number] completed Cleocin [facility] 150 MG Oral 150 mg oral 09:41:27 AM {cap(s)} HCl Health Capsule capsule EST System clindamycin 150 mg oral capsule Finish all this medication unless otherw ise directed by prescriber.Medication should be taken with plenty of water. Clindamycin clindamycin 11/24/2014 1 [id number] completed Cleocin [facility] 300 MG Oral 300 mg oral 09:40:27 AM {cap(s)} HCl Health Capsule capsule EST System clindamycin 300 mg oral capsule Finish all this medication unless otherw ise directed by prescriber.Medication should be taken with plenty of water. Prednisone predniSONE 11/24/2014 1 [id number] completed PredniSONE [facility] 50 MG Oral 50 mg oral 09:40:08 AM {tab(s)} Health Tablet tablet EST System predniSONE 50 mg oral tablet It is very important that you take or us e this exactly as directed. Do not skip doses or discontinue unless directed by your doctor.Obtain medical advice before taking any non-prescription drugs as callie e may affect the action of this medication.Take with food or milk. Naproxen Naprosyn 11/24/2014 1 [id number] completed Naprosyn 500 mg oral tablet; 1 tab(s) orally 2 times a day with food Ordered: 10-Apr-2015 Start: 24-Nov-2014 End: 24-Apr-2015 [facility] 500 MG 500 mg 09:39:38 AM {tab(s)} Quant ity: 10 Maximo Rojas Status: No Longer Active Health Oral oral EST Refills: 2 Gene liz Substitution Allowed System Tablet tablet Naprosyn 500 mg oral tablet Check with your doctor before becoming p regnant.May cause drowsiness or dizziness.Obtain medical advice before t aking any non-prescription drugs as some may affect the action of this medication.Galdino e with food or milk. Metronidazole MetroGel-Vaginal 11/16/2014 1 co mpleted MetroGel-Vaginal; 1 application vaginally once a day (in the evening) Ordered: 16-Nov-2014 Star t: 16-Nov-2014 End: 05-Dec-2014 [facility] Topical Product 01:30:09 PM {sheri} Q uantity: 7 Jefe Aleman Status: No Longer Active Health MetroGel-Vaginal EST Refills: 3 System Spironolactone spironolactone 11/10/2014 1 [id number] complet ed Spironolactone [facility] 50 MG Oral 50 mg oral 03:48:35 PM {tab(s)} Health Tablet tablet EST System spironolactone 50 mg oral tablet It is very important that you take or us e this exactly as directed. Do not skip doses or discontinue unless directed by your doctor.May cause drowsiness or dizziness. 24 HR nitroglycerin 11/10/2014 1 [id number] aborted nitroglycerin 0.2 mg/hr transdermal film, extended release; 1 patch transdermal once a day Ordered: 10-Nov-2014 Start: 10-Nov-2014 End: 07-Feb-2015 [facility] Nitroglycerin 0.2 mg/hr 03:09:27 PM {PATCH} Quantity: 30 Maite Fernandez Status: Discontinued Health 0.2 MG/HR transdermal EST Refills: 2 Generic Substitution Allowed System Transdermal film, extended Comments: Do not drink alcoholic beverages when taking this medication.For external use only.It is very important that you take or use this exactly as directed. Do not skip doses or discontinue unless directed b Patch release nitroglycerin 0.2 mg/hr transdermal film, extended release Do not drink alcoholic beverages when ta anabell this medication.For external use only.It is very important that you take or use t his exactly as directed. Do not skip doses or discontinue unless directed by your d octor.Remove old patch prior to applying a new patch. Ibuprofen IBU 600 11/10/2014 1 {tab(s)} [id number] completed IBU [facility] 600 MG Oral mg oral 03:08:36 PM Health Tablet [Ibu] tablet EST Syste m IBU 600 mg oral tablet Do not take this drug if you are pregnan t.It is very important that you take or use this exactly as directed. Do not skip d oses or discontinue unless directed by your doctor.May cause drowsiness or dizziness .Obtain medical advice before taking any non-prescription drugs as some may affec t the action of this medication.Take with food or milk. Diphenhydramine diphenhydrAMINE 11/10/2014 1 [id number] compl eted Twilite [facility] Hydrochloride 50 50 mg oral 03:06:20 PM {tab(s)} Health MG Oral Tablet tablet EST Sys tem diphenhydrAMINE 50 mg oral tablet May cause drowsiness. Alcohol may inten sify this effect. Use care when operating dangerous machinery.Obtain medical advic e before taking any non-prescription drugs as some may affect the action of this medic ation. buspirone busPIRone 11/10/2014 1 [id number] completed BusPIRone [facility] hydrochloride 15 mg oral 03:05:25 PM {tab(s)} Hydrochloride Health 15 MG Oral tablet EST System Tablet busPIRone 15 mg oral tablet It is very important that you take or us e this exactly as directed. Do not skip doses or discontinue unless directed by your doctor.May cause drowsiness or dizziness.May cause drowsiness. Alcohol may intensify this effect. Use care when operating dangerous machinery.Obtain med ica advice before taking any non-prescription drugs as some may affec t the action of this medication. Aspirin Aspirin 11/10/2014 1 [id number] aborted Aspirin Enteric Coated; 1 tab(s) orally once a day Ordered: 09-Mar-2015 Start: 10-Nov-2014 End: 06-Jun-2015 [facility] Aspirin Enteric 03:05:08 PM {tab(s)} Ronald ntity: 30 Mesfin Navarrete Status: Discontinued Health Enteric Coated EST Refills: 2 System Coated Spironolactone Aldactone 11/10/2014 1 [id number] completed Aldactone [facility] 50 MG Oral 50 mg oral 03:04:49 PM {tab(s)} Health Tablet tablet EST System [Aldactone] Aldactone 50 mg oral tablet albuterol [facility] [id number] 11/10/2014 2 [id number] completed Proventil [facility] free 90 mcg/inh 1 03:04:26 PM {puff(s)} HFA Health inhalation EST System aerosol For inhalation only.It is very important that you take or use this exactly as directed. Do not skip doses or disconti nue unless directed by your doctor.Obtain medical advice before taking any non-pre scription drugs as some may affect the action of this medication.Shake well before use . Calcium calcium-vitamin 11/10/2014 1 [id number] completed Os-Tc [facility] Carbonate 1250 D 500 mg-200 03:04:14 PM {tab(s)} Calcium+D3 Health MG / intl units oral EST Syst em Cholecalciferol tablet 200 UNT Oral Tablet calcium-vitamin D 500 mg-200 intl units oral tablet Calcium calcium-vitamin 08/30/2014 1 [id number] completed Os-Tc [facility] Carbonate 1250 D 500 mg-200 11:41:55 AM {tab(s)} Calcium+D3 Health MG / intl units oral EST Syst em Cholecalciferol tablet 200 UNT Oral Tablet calcium-vitamin D 500 mg-200 intl units oral tablet Ibuprofen 600 MG IBU 600 mg oral 08/30/2014 1 [id number] comp leted IBU [facility] Oral Tablet tablet 11:37:24 AM {tab(s)} Health [Ibu] IBU 600 mg EST Sys tem oral tablet Do not take this drug if you are pregnan t.It is very important that you take or use this exactly as directed. Do not skip d oses or discontinue unless directed by your doctor.May cause drowsiness or dizziness .Obtain medical advice before taking any non-prescription drugs as some may affec t the action of this medication.Take with food or milk. albuterol [id number] 08/30/2014 2 [id number] completed Proventil [facility] free 90 11:33:50 AM {puff(s)} H FA Health mcg/inh EST System inhalation aerosol For inhalation only.It is very important that you take or use this exactly as directed. Do not skip doses or disconti nue unless directed by your doctor.Obtain medical advice before taking any non-pre scription drugs as some may affect the action of this medication.Shake well before use . lansoprazole lansoprazole 08/30/2014 1 [id number] completed Lansoprazole [facility] 30 MG Delayed 30 mg oral 11:33:04 AM {cap(s)} Health Release Oral delayed EST Syst em Capsule release lansoprazole capsule 30 mg oral delayed release capsule It is very important that you take or us e this exactly as directed. Do not skip doses or discontinue unless directed by your doctor.Obtain medical advice before taking any non-prescription drugs as callie e may affect the action of this medication.Swallow whole. Do not crush. Take medication on an empty stomach 1 hour before or 2 to 3 hours after a meal unle ss otherwise directed by your doctor. Simvastatin simvastatin 08/30/2014 1 [id number] completed Simvastatin [facility] 40 MG Oral 40 mg oral 11:31:54 AM {tab(s)} Health Tablet tablet EST System simvastatin 40 mg oral tablet Avoid grapefruit and grapefruit juice wh ile taking this medication.Do not take this drug if you are .It is very impo rtant that you take or use this exactly as directed. Do not skip doses or disconti nue unless directed by your doctor.Obtain medical advice before taking any non-pre scription drugs as some may affect the action of this medication.Take with food or mil k. Diphenhydramine diphenhydrAMINE 08/30/2014 1 [id number] compl eted Twilite [facility] Hydrochloride 50 50 mg oral 11:30:06 AM {tab(s)} Health MG Oral Tablet tablet EST Sys tem diphenhydrAMINE 50 mg oral tablet May cause drowsiness. Alcohol may inten sify this effect. Use care when operating dangerous machinery.Obtain medical advic e before taking any non-prescription drugs as some may affect the action of this medic ation. Aspirin Aspirin 08/30/2014 1 [id number] completed Aspirin Enteric Coated; 1 tab(s) orally once a day Ordered: 30-Aug-2014 Start: 30-Aug-2014 End: 27-Nov-2014 [facility] Aspirin Enteric 11:27:41 AM {tab(s)} Ronald ntity: 30 Deandre Sage Status: No Longer Active Health Enteric Coated EST Refills: 2 System Coated Spironolactone Aldactone 08/30/2014 1 [id number] completed Aldactone [facility] 50 MG Oral 50 mg oral 11:24:03 AM {tab(s)} Health Tablet tablet EST System [Aldactone] Aldactone 50 mg oral tablet 24 HR Diltiazem Cardizem 08/30/2014 1 [id number] completed Cardizem [facility] Hydrochloride 360 mg/24 11:23:38 AM {tab(s)} [facility] 360 MG Extended hours oral EST System Release Oral tablet, Tablet Cardizem extended 360 mg/24 hours release oral tablet, extended release Codeine codeine-gu 10/24/2013 10 mL [id number] completed Codeine [facility] Phosphate 2 aiFENesin 12:04:50 PM P hosphate- Health MG/ML / 10 mg-200 EST GuaiFENesi S ystem Guaifenesin 40 mg/5 mL n MG/ML Oral liquid Solution codeine-guaiFEN esin 10 mg-200 mg/5 mL liquid Azithromycin azithromyc 10/24/2013 1 I20000 completed Azithromyc [facility] 500 MG Oral in 500 mg 12:01:56 PM {tab(s)} in Health Tablet tablet EST System azithromycin 500 mg tablet Erythromycin Justice-Tab 07/03/2013 1 [id number] completed Justice-Tab 500 mg oral delayed release tablet; 1 tab(s) orally 4 times a day x 7 days Ordered: 03-Jul-2013 Start: 03-Jul-2013 End: 09-Jul-2013 [facility] 500 MG 500 mg 11:02:45 AM {tab(s)} Quant ity: 28 Sheldon Steinberg Status: No Longer Active Health Delayed oral EDT Refills: 0 G eneric Substitution Allowed System Release Oral delayed Tablet release [Justice-Tab] tablet Justice-Tab 500 mg oral delayed release tablet Finish all this medication unless otherw ise directed by prescriber.Swallow whole. Do not crush. Ibuprofen ibuprofen 03/28/2013 1 [id number] completed ibuprofen 600 mg oral tablet; 1 tab(s) orally 4 times a day as needed with food Ordered: 28-Mar-2013 Start: 28-Mar-2013 End: 28-Mar-2013 [facility] 600 MG 600 mg 11:28:12 AM {tab(s)} Quant ity: 30 Jayro Herbert Status: No Longer Active Health Oral oral EDT Refills: 0 Gene liz Substitution Allowed System Tablet tablet Commen ts: Do not take this drug if you are .It is very important that you take or use this exactly as directed. Do not skip doses or discontinue unless directed by your doctor.May cause drowsiness or diz ibuprofen 600 mg oral tablet Do not take this drug if you are pregnan t.It is very important that you take or use this exactly as directed. Do not skip d oses or discontinue unless directed by your doctor.May cause drowsiness or dizziness .Obtain medical advice before taking any non-prescription drugs as some may affec t the action of this medication.Take with food or milk. Simethicone 66.7 Gas Relief active Gas Relief eCW3 ([facility] MG/ML Oral Drops Infants Drops [facility] Suspension Gas 20 MG/0.3ML 20 MG/0.3ML Care) Relief Drops Infants 20 MG/0.3ML Ibuprofen 600 MG Ibuprofen 600 active Ibuprofen 600 eCW3 ([facility] Oral Tablet MG MG [facility]) Aspirin 81 MG Aspirin 81 mg active Aspirin 81 mg eCW3 ([facility] Chewable Tablet [facility] Aspirin 81 mg Care) BuSpar 15 MG UNK active BuSpar 15 MG eCW3 ([facility]) Vitamin A & D Vitamin A & D active Vitamin A & D eCW3 ([facility] 5000-400 UNIT 5000-400 UNIT 50 00-400 UNIT [facility]) Aspirin 81 MG Aspirin 81 mg active Aspirin 81 mg eCW3 ([place] Chewable Tablet Rive r [facility] Aspirin 81 mg Care) Ibuprofen 600 MG Ibuprofen 600 suspended Ibuprofen 600 eCW3 ([place] Oral Tablet MG [facility]) Simethicone 66.7 Gas Relief active Gas Relief eCW3 ([place] MG/ML Oral Drops Infants Drops Infants [facility] Suspension Gas 20 MG/0.3ML 20 MG/0.3ML Care) Relief Drops Infants 20 MG/0.3ML 24 HR Diltiazem Diltiazem HCl active Diltiazem HCl eCW3 ([place] Hydrochloride 360 ER Beads 360 ER Beads 360 [facility] MG Extended MG MG Care) Release Oral Capsule Diltiazem HCl ER Beads 360 MG Simvastatin 40 MG simvastatin 40 1 C38 completed Simvastatin [facility] Oral Tablet mg oral tablet {[address] simvastatin 40 mg (s)} Sy stem oral tablet Albuterol 0.83 Albuterol 3.0 active Alb uterol eCW3 ([facility] MG/ML Inhalant Sulfate (2.5 {ml_ Florez lfate (2.5 [facility] Solution MG/3ML) 0.083% as_n MG/3ML ) Care) Albuterol Sulfate eede 0.083% (2.5 MG/3ML) d} 0.083% BuSpar 15 MG UNK active BuSpar 15 MG eCW3 ([facility]) Metoclopramide 10 Reglan 10 mg active Reglan 10 mg eCW3 ([facility] MG Oral Tablet [facility] [Reglan] Reglan Care ) 10 mg BuSpar 15 MG UNK active BuSpar 15 MG eCW3 ([facility]) Simvastatin 40 MG Zocor 40 mg active Zocor 40 mg eCW3 ([facility] Oral Tablet [facility] [Zocor] Zocor 40 Car e) mg 24 HR Diltiazem Diltiazem HCl active Diltiazem HCl eCW3 ([facility] Hydrochloride 360 ER Beads 360 ER Beads 360 [facility] MG Extended MG MG Care) Release Oral Capsule Diltiazem HCl ER Beads 360 MG BuSpar 15 MG UNK active BuSpar 15 MG eCW3 ([place] [facility]) Aspirin 81 MG Aspirin 81 mg active Aspirin 81 mg eCW3 ([place] Chewable Tablet [facility] Aspirin 81 mg Care) Simvastatin 40 MG Zocor 40 MG active Zocor 40 MG eCW3 ([facility] Oral Tablet [facility] [Zocor] Zocor 40 Car e) MG Ibuprofen 600 MG Ibuprofen 600 suspended Ibuprofen 600 eCW3 ([facility] Oral Tablet MG MG [facility]) Aspirin 81 MG Aspirin 81 mg active Aspirin 81 mg eCW3 ([place] Chewable Tablet [facility] Aspirin 81 mg Care) Albuterol 0.83 Albuterol 3.0 active Alb uterol eCW3 ([facility] MG/ML Inhalant Sulfate (2.5 {ml_ Florez lfate (2.5 [facility] Solution MG/3ML) 0.083% as_n MG/3ML ) Care) Albuterol Sulfate eede 0.083% (2.5 MG/3ML) d} 0.083% Simethicone 66.7 Gas Relief active Gas Relief eCW3 ([facility] MG/ML Oral Drops Infants Drops Infants [facility] Suspension Gas 20 MG/0.3ML 20 MG/0.3ML Care) Relief Drops Infants 20 MG/0.3ML Albuterol 0.83 Albuterol 3.0 active Alb uterol eCW3 ([facility] MG/ML Inhalant Sulfate (2.5 {ml_ Florez lfate (2.5 [facility] Solution MG/3ML) 0.083% as_n MG/3ML ) Care) Albuterol Sulfate eede 0.083% (2.5 MG/3ML) d} 0.083% Ibuprofen 600 MG Ibuprofen 600 suspended Ibuprofen 600 eCW3 ([facility] Oral Tablet MG MG [facility]) Albuterol 0.83 Albuterol 3.0 active Alb uterol eCW3 ([facility] MG/ML Inhalant Sulfate (2.5 {ml_ Florez lfate (2.5 [facility] Solution MG/3ML) 0.083% as_n MG/3ML ) Care) Albuterol Sulfate eede 0.083% (2.5 MG/3ML) d} 0.083% Aspirin 81 MG Aspirin 81 mg active Aspirin 81 mg eCW3 ([place] Chewable Tablet [facility] Aspirin 81 mg Care) 120 ACTUAT Flovent HFA 1.0 active Flove nt HFA eCW3 ([facility] Fluticasone 110 MCG/ACT {puf 110 MC G/ACT [facility] propionate 0.11 f} Care ) MG/ACTUAT Metered Dose Inhaler [Flovent] Flovent HFA 110 MCG/ACT Simvastatin 40 MG Zocor 40 MG active Zocor 40 MG eCW3 ([facility] Oral Tablet [facility] [Zocor] Zocor 40 Car e) MG Motrin 0 [id number] completed Motrin; or ally Ordered: 03-May-2014 Status: No Longer Active [facility] Quantity: 0 [email or web address], [employer] Refills: 0 System BuSpar 15 MG UNK suspended BuSpar 15 MG eCW3 ([facility]) BuSpar 0 completed BuSpar Ordere d: 03-May-2014 Status: No Longer Active [facility] Quantity: 0 [email or web address], [facility] Refills: 0 200 ACTUAT VENTOLIN HFA 2.0 {puffs} active VENTOLIN HFA eCW3 Albuterol 0.09 108 (90 Base) 1 08 (90 Base) ([facility] MG/ACTUAT MCG/ACT MCG/ACT Rive r Metered Dose Health Inhaler Care) [Ventolin] VENTOLIN HFA 108 (90 Base) MCG/ACT lansoprazole Prevacid 1 [id number] aborted Prevacid 30 mg oral delayed release capsule; 1 cap(s) orally once a day Ordered: 03-May-2014 Status: Discontinued [facility] 30 MG Delayed 30 mg {cap(s)} Quanti ty: 0 [email or web address], [employer] [facility] Release Oral oral Refills: 0 System Capsule delayed [Prevacid] release Prevacid 30 capsule mg oral delayed release capsule Benadryl 0 [id number] complete Benadryl; orally Ordered: 03-May-2014 Status: No Longer Active [facility] d Quantity: 0 [email or web address], [facility] Refills: 0 System Simethicone 66.7 Gas Relief active Gas Relief eCW3 ([facility] MG/ML Oral Drops Infants Drops [facility] Suspension Gas 20 MG/0.3ML 20 MG/0.3ML Care) Relief Drops Infants 20 MG/0.3ML 24 HR Diltiazem Diltiazem HCl active Diltiazem HCl eCW3 ([place] Hydrochloride 360 ER Beads 360 ER Beads 360 [facility] MG Extended Release MG MG Care) Oral Capsule Diltiazem HCl ER Beads 360 MG Simvastatin 40 MG Zocor 40 MG active Zocor 40 MG eCW3 ([facility] Oral Tablet [Zocor] [facility] Zocor 40 MG Care) Albuterol Sulfate Albuterol 2.0 active Albuterol eCW3 ([facility] HFA 108 (90 Base) Sulfate HFA {puff Sulfate HFA [facility] MCG/ACT 108 (90 Base) s_as_ 108 (90 Base) Care) MCG/ACT neede MCG/ACT d} 24 HR Diltiazem Diltiazem HCl active Diltiazem HCl eCW3 ([place] Hydrochloride 360 ER Beads 360 ER Beads 360 [facility] MG Extended Release MG MG Care) Oral Capsule Diltiazem HCl ER Beads 360 MG 200 ACTUAT VENTOLIN HFA 2.0 active VENT XAVI HFA eCW3 ([facility] Albuterol 0.09 108 (90 Base) {puff 108 (90 Base) [facility] MG/ACTUAT Metered MCG/ACT s} MCG/ ACT Care) Dose Inhaler [Ventolin] VENTOLIN HFA 108 (90 Base) MCG/ACT Simvastatin 40 MG Zocor 40 mg active Zocor 40 mg eCW3 ([facility] Oral Tablet [Zocor] [facility] Zocor 40 mg Care) 24 HR Diltiazem Diltiazem HCl active Diltiazem HCl eCW3 ([facility] Hydrochloride 360 ER Beads 360 ER Beads 360 [facility] MG Extended Release MG MG Care) Oral Capsule Diltiazem HCl ER Beads 360 MG lansoprazole 30 MG Prevacid 30 MG 1.0 active Prevacid 30 MG eCW3 ([facility] Delayed Release {caps [facility] Oral Capsule [facility]le} Care) [Prevacid] Prevacid 30 MG Insurance Providers Payer name Policy type Policy ID Covered Covered constitution party's Policy P chio / Coverage constitution party ID relationship to Andrade Inf ormation type andrade MEDICAID [id number] SP [id number] MEDICARE [id number] SP [id number] Medicare Part Medicare [id number] 1 [id number] Medicare Part Medicare [id number] 1 [id number] B Outpatient Medicaid Medicaid [id number] Medicaid Medicaid [id number] MCAID [id number] Self [id number] MCARE [id number] Self [id number] MEDICAID [id number] SP [id number] MEDICARE PART [id number] SP [id number] MEDICAID [id number] SP [id number] MCAID [id number] Self [id number] MCARE [id number] Self [id number] MEDICARE PART [id number] SP [id number] MEDICAID [id number] SP [id number] MCAID [id number] Self [id number] MCARE [id number] Self [id number] [id number] MCAID [id number] Self [id number] MCARE [id number] Self [id number] A37 MCAID [id number] Self [id number] MCARE [id number] Self [id number] [id number] MCAID [id number] Self [id number] MCARE [id number] Self [id number] A37 [id number] [id number] Self [id number] MCARE [id number] Self [id number] [id number] MCAID [id number] Self [id number] MCARE [id number] Self [id number] [id number] MCAID [id number] Self [id number] MCARE [id number] Self [id number] A37 MCAID [id number] Self [id number] MCARE [id number] Self [id number] A37 MCAID [id number] Self [id number] MCARE [id number] Self [id number] A37 MCAID [id number] Self [id number] MCARE [id number] Self [id number] A37 MCAID [id number] Self [id number] MCARE [id number] Self [id number] [id number] Problems, Conditions, and Diagnoses Code Display Name Description Problem Type Effective Data Dates Source(s) R13.10 Dysphagia Dysphagia 51668-5 03/08/2020 [facility] 12:00:00 AM Health System EDT R10.13 Epigastric pain Epigastric pain 88018-1 03/08/2020 [facility] determined by determined by 12:00:00 AM Health System examination examination EDT R63.4 Weight loss Weight loss 56976-7 03/08/2020 [facility] 12:00:00 AM Health System EDT D25.9 Uterine leiomyoma Uterine leiomyoma 55843-6 03/08/2020 [facility] 12:00:00 AM Health System EDT [id number] Adjustment disorder Adjustment disorder Complaint 020 NETSMART with mixed anxiety with mixed anxiety 07:40:00 PM (Family and depressed mood and depressed mood [facility]T [facility] [employer] [id number] Generalized anxiety Generalized anxiety Complaint 020 NETSMART disorder disorder 02:15:00 PM (Family EDT - Services, 02/21/2020 Inc.) 04:00:00 AM EDT R13.10 Dysphagia, Dysphagia, Problem 02/06/2020 eCW3 ([facility] unspecified type unspecified type 12:00:00 AM [facility] EDT Care) Z90.09 History of partial History of partial Problem 9 eCW3 ([facility] thyroidectomy thyroidectomy 12:00:00 AM [facility] EDT Care) Z90.09 History of partial History of partial Problem 9 eCW3 ([facility] thyroidectomy thyroidectomy 12:00:00 AM [facility] EDT Care) J45.20 Mild intermittent Mild intermittent Problem 07/04/2019 eCW3 ([facility] asthma without asthma without 12:00:00 AM [facility] complication complication EDT Care) J45.20 Mild intermittent Mild intermittent Problem 07/04/2019 eCW3 ([facility] asthma without asthma without 12:00:00 AM [facility] complication complication EDT Care) J45.20 Intermittent Intermittent Problem 05/14/2019 eCW3 ([place] asthma, unspecified asthma, unspecified 12:00:0 0 AM [facility] asthma severity, asthma severity, EDT Ca re) unspecified whether unspecified whether complicated complicated R92.8 Abnormal Abnormal Problem 01/06/2019 eCW3 ([facility] mammography mammography 12:00:00 AM [facility] EDT Care) J32.9 Sinusitis, Sinusitis, Problem 11/25/2018 eCW3 ([facility] unspecified unspecified 12:00:00 AM [facility] chronicity, chronicity, EST Care) unspecified unspecified location location J45.30 Mild persistent Mild persistent Problem 11/25/2018 eCW3 ([facility] asthma without asthma without 12:00:00 AM [facility] complication complication EST Care) F45.8 Aerophagia Aerophagia Problem 11/25/2018 eCW3 ([facility] 12:00:00 AM [facility] EST Care) J32.9 Sinusitis, Sinusitis, Problem 11/25/2018 eCW3 ([facility] unspecified unspecified 12:00:00 AM [facility] chronicity, chronicity, EST Care) unspecified unspecified location location J45.30 Mild persistent Mild persistent Problem 11/25/2018 eCW3 ([facility] asthma without asthma without 12:00:00 AM [facility] complication complication EST Care) F45.8 Aerophagia Aerophagia Problem 11/25/2018 eCW3 ([facility] 12:00:00 AM [facility] EST Care) J45.30 Mild persistent Mild persistent Problem 11/25/2018 eCW3 ([facility] asthma without asthma without 12:00:00 AM [facility] complication complication EST Care) E55.9 Vitamin D Vitamin D Problem 04/08/2018 eCW3 ([facility] deficiency deficiency 12:00:00 AM [facility] EDT Care) G47.30 Sleep apnea in Sleep apnea in Problem 04/08/2018 eCW3 ( [place] adult adult 12:00:00 AM [facility] EDT Care) E55.9 Vitamin D Vitamin D Problem 04/08/2018 eCW3 ([facility] deficiency deficiency 12:00:00 AM [facility] EDT Care) R92.8 Abnormal finding on Abnormal finding on Problem 018 eCW3 ([facility] mammography mammography 12:00:00 AM [facility] EDT Care) G47.30 Sleep apnea in Sleep apnea in Problem 04/08/2018 eCW3 ( [facility] adult adult 12:00:00 AM [facility] EDT Care) E55.9 Vitamin D Vitamin D Problem 04/08/2018 eCW3 ([facility] deficiency deficiency 12:00:00 AM [facility] EDT Care) K21.9 Gastroesophageal Gastroesophageal Problem 01/27/2018 eC W3 ([facility] reflux disease reflux disease 12:00:00 AM [facility] without esophagitis without esophagitis EDT Care) K21.9 Gastroesophageal Gastroesophageal Problem 01/27/2018 eC W3 ([facility] reflux disease reflux disease 12:00:00 AM [facility] without esophagitis without esophagitis EDT Care) K21.9 Gastroesophageal Gastroesophageal Problem 01/27/2018 eC W3 ([facility] reflux disease reflux disease 12:00:00 AM [facility] without esophagitis without esophagitis EDT Care) I10 Essential (primary) Essential (primary) Problem 018 eCW3 ([facility] hypertension hypertension 12:00:00 AM [facility] EST Care) E78.5 Hyperlipidemia, Hyperlipidemia, Problem 11/16/2017 eCW3 ([facility] unspecified unspecified 12:00:00 AM [facility] hyperlipidemia type hyperlipidemia type EST Care) F41.9 Anxiety Anxiety Problem 11/16/2017 eCW3 ([facility] 12:00:00 AM [facility] EST Care) I20.8 Stable angina Stable angina Problem 11/16/2017 eCW3 ([place] pectoris pectoris 12:00:00 AM [facility] EST Care) I10 Essential (primary) Essential (primary) Problem 018 eCW3 ([facility] hypertension hypertension 12:00:00 AM [facility] EST Care) E78.5 Hyperlipidemia, Hyperlipidemia, Problem 11/16/2017 eCW3 ([facility] unspecified unspecified 12:00:00 AM [facility] hyperlipidemia type hyperlipidemia type EST Care) I20.8 Stable angina Stable angina Problem 11/16/2017 eCW3 ([place] pectoris pectoris 12:00:00 AM [facility] EST Care) F41.9 Anxiety Anxiety Problem 11/16/2017 eCW3 ([facility] 12:00:00 AM [facility] EST Care) I10 Essential (primary) Essential (primary) Problem 018 eCW3 ([facility] hypertension hypertension 12:00:00 AM [facility] EST Care) I20.8 Stable angina Stable angina Problem 11/16/2017 eCW3 ([place] pectoris pectoris 12:00:00 AM [facility] EST Care) E78.5 Hyperlipidemia, Hyperlipidemia, Problem 11/16/2017 eCW3 ([place] unspecified unspecified 12:00:00 AM [facility] hyperlipidemia type hyperlipidemia type EST Care) J45.31 Mild persistent Mild persistent Problem 10/12/2017 eCW3 ([place] asthma with acute asthma with acute 12:00:00 AM [facility] exacerbation exacerbation EST Care) J45.31 Mild persistent Mild persistent Problem 10/12/2017 eCW3 ([place] asthma with acute asthma with acute 12:00:00 AM [facility] exacerbation exacerbation EST Care) J45.31 Mild persistent Mild persistent Problem 10/12/2017 eCW3 ([place] asthma with acute asthma with acute 12:00:00 AM [facility] exacerbation exacerbation EST Care) E78.5 Hyperlipidemia Hyperlipidemia 19357-1 07/13/2015 [facility] 12:00:00 AM [facility] EDT I10 Hypertension Hypertension 71732-0 07/13/2015 [facility] 12:00:00 AM [facility] EDT J01.90 Acute sinusitis Acute sinusitis 84493-4 07/13/2015 [facility] 12:00:00 AM [facility] EDT 401.9 UNSPECIFIED HTN (hypertension) Diagnosis 05/29/2020 [facility] ESSENTIAL 01:30:34 PM [place] HYPERTENSION [facility] E78.5 Hyperlipidemia, Hyperlipidemia Diagnosis 05/29/2020 [facility] [place] unspecified 01:30:34 PM [facility] I10 Essential (primary) Hypertension Diagnosis 05/29/2020 S - [facility] hypertension 01:30:34 PM [facility] 300.00 ANXIETY STATE Anxiety Diagnosis 05/29/2020 [facility] [place] UNSPECIFIED 01:30:34 PM [facility] J01.90 Acute sinusitis, Acute sinusitis Diagnosis 05/29/2020 [facility] [place] unspecified 01:30:34 PM [facility] E43 Unspecified severe Severe Diagnosis 03/08/2020 S - [facility] protein-calorie protein-calorie 07:02:00 PM [facility] non malnutrition malnutrition [facility] J45.901 Unspecified asthma Asthma with acute Diagnosis 03/08/2020 S - [facility] with (acute) exacerbation 07:02:00 PM [place] exacerbation [facility] R10.9 Unspecified Abdominal pain Diagnosis 03/08/2020 S - [place] abdominal pain 07:02:00 PM [facility] Z53.09 Procedure and Procedure or Diagnosis 03/08/2020 S - [place] treatment not treatment not 07:02:00 PM Rakesh carried out because carried out because EDT Hospital of other of other contraindication contraindication B96.89 Other specified Other specified Diagnosis 03/08/2020 [facility] - [place] bacterial agents as bacterial agent as 07:02:00 PM Rakesh the cause of cause of disease EDT Hospit al diseases classified classified elsewhere elsewhere I20.8 Other forms of Other forms of Diagnosis 03/08/2020 [facility] - [place] angina pectoris ang[facility] F32.9 Major depressive Major depressive Diagnosis 03/08/2020 [facility] - [place] disorder, single disorder with 07:02:00 PM Misael on episode, single episode T Hospital unspecified Z79.82 skilled nursing (current) skilled nursing current Diagnosis 0 S - [facility] use of aspirin use of aspirin 07:02:00 PM [facility] n T [facility] D25.9 Leiomyoma of Uterine leiomyoma Diagnosis 03/08/2020 S - [place] uterus, unspecified 07:02:00 PM [facility] on T Hospital Z91.040 Latex allergy Allergy to latex Diagnosis 03/08/2020 S - [place] status 07:02:00 PM [facility] E87.6 Hypokalemia Hypokalemia Diagnosis 03/08/2020 [facility] - [place] 07:02:00 PM [facility] K21.9 Gastro-esophageal Gastroesophageal Diagnosis 03/08/2020 [facility] - [place] reflux disease reflux disease 07:02:00 PM [place] without esophagitis without esophagitis T [facility] K29.70 Gastritis, Gastritis without Diagnosis 03/08/2020 S - [place] unspecified, bleeding 07:02:00 PM Rakesh without bleeding T [facility] R10.13 Epigastric pain Epigastric pain Diagnosis 03/08/2020 S - [place] determined by 07:02:00 PM [place] examination T [facility] R13.10 Dysphagia, Dysphagia Diagnosis 03/08/2020 S - [place] unspecified 07:02:00 PM [facility] K44.9 Diaphragmatic Diaphragmatic Diagnosis 03/08/2020 S - [place] [facility] hernia without hernia without 07:02:00 PM [place] obstruction or obstruction and EDT Hospi rose gangrene without gangrene Z68.21 Body mass index Body mass index Diagnosis 03/08/2020 [facility] (BMI) 21.0-21.9, (BMI) of 21.0 to 07:02:00 PM [place] adult 21.9 in adult EDT Hospital ASTHMA & ABD PAIN ASTHMA & ABD PAIN Diagnosis 03/08/2020 [facility] 07:02:00 PM [facility] F41.9 Anxiety disorder, Anxiety disorder Diagnosis 03/08/2020 [facility] - [place] unspecified 07:02:00 PM [facility] Z88.2 Allergy status to History of allergy Diagnosis 03/08/2020 [facility] sulfonamides status to sulfonamides 07:02:00 PM [facility] Z88.0 Allergy status to History of allergy Diagnosis 03/08/2020 S - [place] penicillin to penicillin 07:02:00 PM [facility] R93.89 Abnormal findings Abnormal findings Diagnosis 03/08/2020 [facility] on diagnostic on diagnostic 07:02:00 PM [place] imaging of other imaging of other EDT spital specified body specified body structures structures R63.4 Abnormal weight Weight loss Diagnosis 03/08/2020 [facility] [place] [facility] loss 12:00:00 AM [facility] Z88.2 Allergy status to ALLERGY STATUS TO Diagnosis [facility] sulf[facility] SULFONAMIDES [facility] Z88.7 Allergy status to ALLERGY STATUS TO [facility] SER[facility] AND VACCINE 11:34:00 AM [facility] status STATUS EDT Hospital [facility] Z88.0 Allergy status to ALLERGY STATUS TO Diagnosis 03/04/2020 [facility] penicillin PENICILLIN 11:34:00 [facility] Z91.040 Latex allergy LATEX ALLERGY [facility]:34[facility]00 AM [facility] [place] Z88.1 Allergy status to ALLERGY STATUS TO Diagnosis 03/04/2020 [facility] other antibiotic OTHER ANTIBIOTIC 11:34:00 AM R egional agents status AGENTS STATUS EDT [facility] Z88.8 Allergy status to ALLERGY STATUS TO Diagnosis 03/04/2020 [facility] other drugs, OTH DRUG/MEDS/BIOL 11:34:00 AM Reg ional medicaments and SUBST [facility]US [facility] substances status Z85.850 Personal history of PERSONAL HISTORY OF Diagnosis [place] malignant neoplasm MALIGNANT NEOPLASM 11:34:00 AM Regional thyroid THYROID EDT Hospital [facility] 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 [place] use of aspirin USE OF ASPIRIN 11:34:00 AM Regio nal EDT [facility] Z79.899 Other senior care OTHER PHOTOGRAMMETRIST Diagnosis 03/04/2020 [facility] (current) drug (CURRENT) DRUG 11:34:00 AM Regio nal therapy THERAPY EDT [facility] E87.6 Hypokalemia HYPOKALEMIA Diagnosis 03/04/2020 [place] 11:34:00 AM [facility] EDT [facility] E86.0 Dehydration DEHYDRATION Diagnosis 03/04/2020 [place] 11:34:00 AM [facility] EDT [facility] I10 Essential (primary) ESSENTIAL (PRIMARY) Diagnosis [place] hypertension HYPERTENSION 11:34:00 AM [facility] EDT [facility] F41.9 Anxiety disorder, ANXIETY DISORDER, Diagnosis 03/04/2020 [facility] unspecified UNSPECIFIED 11:34:00 AM [facility] EDT [facility] K22.2 Esophageal ESOPHAGEAL Diagnosis 03/04/2020 [facility] obstruction OBSTRUCTION 11:34:00 AM [facility] EDT [facility] 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 03/04/2020 [facility] esophagitis ESOPHAGITIS 11:34:00 AM [facility] EDT [facility] R13.10 Dysphagia, DYSPHAGIA, Diagnosis 02/26/2020 [facility] unspecified UNSPECIFIED 07:02:00 PM [facility] EDT [facility] R13.10 Dysphagia, Dysphagia, Diagnosis 02/20/2020 [place] unspecified unspecified 06:39:00 PM Health - EDT [facility] K21.9 Gastro-esophageal GASTRO-ESOPHAGEAL Diagnosis 02/03/2020 [facility] reflux disease REFLUX DISEASE 06:58:00 AM Regio nal without esophagitis WITHOUT ESOPHAGITIS EDT [facility] E78.5 Hyperlipidemia, HYPERLIPIDEMIA, Diagnosis 02/03/2020 [facility] unspecified UNSPECIFIED 06:58:00 AM [facility] EDT [facility] F41.8 Other specified OTHER SPECIFIED Diagnosis 02/03/2020 [facility] anxiety disorders ANXIETY DISORDERS 06:58:00 AM [facility] [place] Z12.31 Encounter for Encounter for Diagnosis 12/20/2019 [place] screening mammogram screening mammogram 09:14:0 0 AM [facility] malignant for malignant EDT [place] neoplasm of breast neoplasm of breast [facility] J45.909 Unspecified asthma, Unspecified asthma, Diagnosis 019 [place] uncomplicated uncomplicated 09:07:07 AM Health - EDT [facility] R06.02 Shortness of breath Shortness of breath Diagnosis 019 [place] 08:02:31 AM Health - EDT [facility] K31.84 Gastroparesis Gastroparesis Diagnosis 12/02/2018 [place] 01:01:00 PM [facility] R07.9 Chest pain, Chest pain, Diagnosis 11/17/2018 [place] unspecified unspecified 03:35:00 PM [facility] Surgeries/Procedures Procedure Description Date Indications Data Source(s) Standard chest X-ray 03/14/2020 [facility] (procedure) 07:09:00 AM System EDT - 03/14/2020 07:09:00 AM EDT CBC w/Auto Differential- MV 03/13/2020 [facility] Only 06:00:00 AM System EDT - 03/13/2020 06:01:00 AM EDT US Pelvic Doppler US Pelvic 03/09/2020 [facility] Doppler 03:01:00 PM System EDT - 03/09/2020 03:01:00 PM EDT US Abdomen Complete US 03/09/2020 [facility] Abdomen Complete 03:01:00 PM System EDT - 03/09/2020 03:01:00 PM EDT XR Chest Single AP view XR 03/08/2020 [facility] Chest Single AP view 07:51:00 PM System EDT - 03/08/2020 07:51:00 PM EDT Electrocardiographic 03/08/2020 [facility] procedure (procedure) 07:43:09 PM System EDT - 03/08/2020 01:10:[address] Abdomen and Pelvis with IV 03/08/2020 [facility] and Gastrografin Contrast & 05:41:[address] Abdomen and Pelvis EDT - with IV and Gastrografin 03/08/2020 [facility] Recons 05:41:00 PM EDT EGD - SN (None) 02/22/2020 [facility] - 12:01:00 PM [facility] auto-populated from documented surgical case EGD - SN (None) 02/15/2020 02:44:00 PM EDT [facility] auto-populated from documented surgical case EGD - SN (None) 12/02/2018 06:34:00 PM EST [facility] auto-populated from documented surgical case XR Chest PA and Left Lateral XR 06/26/2017 09:12:00 AM [facility] Chest PA and Left Lateral EDT - 06/26/2017 System 09:12:00 AM EDT XR Lumbar Spine AP + Lateral XR 04/04/2017 03:37:00 PM [facility] Lumbar Spine AP + Lateral EDT - 04/04/2017 System 03:37:00 PM EDT XR Chest PA and Left Lateral XR 04/04/2017 03:37:00 PM [facility] Chest PA and Left Lateral EDT - 04/04/2017 System 03:37:00 PM EDT XR Chest AP and Left Lateral XR 02/25/2017 06:58:00 AM [facility] Chest AP and Left Lateral EDT - 02/25/2017 System 06:58:00 AM EDT Electrocardiographic procedure 02/25/2017 06:19:00 AM [facility] (procedure) EDT - 02/25/2017 System 06:35:00 AM EDT US Breast Unilateral-Left US 11/18/2016 11:39:00 AM [facility] Breast Unilateral-Left EST - 11/18/2016 S ystem 11:39:00 AM EST US Breast Unilateral-Right US 11/18/2016 11:39:00 AM [facility] Breast Unilateral-Right EST - 11/18/2016 System 11:39:00 AM EST MG Mammography Diagnostic-Right MG 11/18/2016 10:24:00 AM [facility] Mammography Diagnostic-Right EST - 11/18/2016 System 10:24:00 AM EST MG Mammography Screening- 11/18/2016 09:38:00 AM [facility] Bilateral EST - 11/18/2016 System 09:43:33 AM EST MG Mammography Screening Left 11/18/2016 09:38:00 AM [facility] EST - 11/18/2016 System 09:38:00 AM EST XR Elbow Complete-Right XR Elbow 11/07/2016 03:31:00 P M [facility] Complete-Right EST - 11/07/2016 System 03:31:00 PM EST Radiography of nasal sinuses 11/07/2016 03:31:00 PM [facility] (procedure) EST - 11/07/2016 System 03:31:00 PM EST XR Elbow AP + Lateral-Right 11/07/2016 03:31:00 PM [facility] EST - 11/07/2016 System 03:31:00 PM EST Venipuncture 10/10/2016 09:43:33 AM [facility] EST - 10/10/2016 System 11:00:05 AM EST XR Chest PA and Left Lateral XR 09/12/2016 10:23:00 AM [facility] Chest PA and Left Lateral EST - 09/12/2016 System 10:23:00 AM EST Computerized tomography, bone 09/12/2016 10:19:00 AM [facility] density study (procedure) EST - 09/12/2016 System 10:19:00 AM EST Electrocardiographic procedure 07/24/2016 07:59:00 PM [facility] (procedure) EDT - 07/24/2016 System 08:10:00 PM EDT Venipuncture 03/31/2016 03:24:52 PM [facility] EDT - 03/31/2016 System 05:00:06 PM EDT US Doppler Venous, Lower 03/31/2016 02:46:00 PM [facility] Extremity-Left US Doppler Venous, EDT - 03/31/2016 System Lower Extremity-Left 02:46:00 PM EDT Venipuncture 02/21/2016 07:26:45 AM [facility] EDT - 02/21/2016 System 09:00:04 AM EDT Hepatitis C Viral RNA Quantitative 02/21/2016 07:26:00 AM [facility] Hepatitis C Viral RNA Quantitative EDT - 02/21/2016 System 07:26:00 AM EDT Hepatitis C Viral RNA Hepatitis C 02/21/2016 07:26:00 AM [facility] Viral RNA EDT - 02/21/2016 System 07:26:00 AM EDT US Breast Unilateral-Right US 02/14/2016 08:31:00 AM [facility] Breast Unilateral-Right EDT - 02/14/2016 System 08:31:00 AM EDT US Breast Unilateral-Left US 02/08/2016 09:02:00 AM [facility] Breast Unilateral-Left EDT - 02/08/2016 S ystem 09:02:00 AM EDT MG Mammography Screening- 02/08/2016 08:46:00 AM [facility] Bilateral MG Mammography EDT - 02/08/2016 System Screening- Bilateral 08:46:00 AM EDT XR Chest PA and Left Lateral XR 12/31/2015 11:20:00 AM [facility] Chest PA and Left Lateral EDT - 12/31/2015 System 11:20:00 AM EDT Electrocardiographic procedure 12/31/2015 10:51:00 AM [facility] (procedure) EDT - 12/31/2015 System 11:19:00 AM EDT US Doppler Venous, Lower 12/20/2015 08:54:00 AM [facility] Extremities-Bilateral US Doppler EDT - 12/20/2015 System Venous, Lower 08:54:00 AM EDT Extremities-Bilateral US Abdomen Complete US Abdomen 12/20/2015 08:54:00 AM [facility] Complete EDT - 12/20/2015 System 08:54:[address] Angiogram Aortic Arch Panel 12/14/2015 03:51:00 PM [facility] [id number] CT Angiogram Aortic Arch EST - 12/14/2015 System Panel [id number] 03:51:00 PM EST Venipuncture 11/28/2015 12:58:11 PM [facility] EST - 11/28/2015 System 02:00:05 PM EST Standard chest X-ray (procedure) 11/21/2015 03:37:00 A M [facility] EST - 11/21/2015 System 03:37:00 AM EST Electrocardiographic procedure 11/21/2015 02:55:02 AM [facility] (procedure) EST - 11/21/2015 System 04:29:14 AM EST XR Chest PA and Left Lateral XR 11/04/2015 05:09:00 PM [facility] Chest PA and Left Lateral EST - 11/04/2015 System 05:09:00 PM EST XR Chest AP and Left Lateral 11/04/2015 04:43:56 PM [facility] EST - 11/04/2015 System 04:43:00 PM EST US Renal US Renal 10/12/2015 03:30:00 PM [facility] EST - 10/12/2015 System 03:30:00 PM EST Echocardiography, real-time with 10/11/2015 07:40:00 P M [facility] image documentation with M-mode EST - 10/12/2015 System recording, complete (procedure) 11:27:00 AM EST Cortisol, Serum 10/11/2015 [facility] - 10[facility]2015 System 06:15:00 AM EST Metanephrines Urine 10/11/2015 12:00:00 AM [facility] EST - 10/12/2015 System 02:31:00 PM EST US Renal US Renal 10/10/2015 06:01:00 PM [facility] EST - 10/10/2015 System 06:01:00 PM EST Lactic Acid, Plasma *[place] 10/10/2015 04:29:20 PM [facility] ONLY* EST - 10/11/2015 System 06:21:00 AM EST XR Chest PA and Left Lateral XR 10/10/2015 02:06:00 PM [facility] Chest PA and Left Lateral EST - 10/10/2015 System 02:06:00 PM EST Electrocardiographic procedure 08/26/2015 07:30:00 AM [facility] (procedure) EST - 08/26/2015 System 10:36:00 AM EST Echocardiography, real-time with 08/25/2015 07:32:00 P M [facility] image documentation with M-mode EST - 08/26/2015 System recording, complete (procedure) 11:58:00 AM EST XR Chest Single AP view XR Chest 08/25/2015 05:11:00 P M [facility] Single AP view EST - 08/25/2015 System 05:11:00 PM EST Electrocardiographic procedure 08/25/2015 04:51:10 PM [facility] (procedure) EST - 08/25/2015 System 05:01:00 PM EST Computerized axial tomography of 08/10/2015 06:15:00 P M [facility] brain (procedure) EST - 08/10/2015 System 06:15:00 PM EST US Breast Unilateral-Left US 07/03/2015 10:27:00 AM [facility] Breast Unilateral-Left EDT - 07/03/2015 S ystem 10:27:00 AM EDT US Breast Unilateral-Right US 07/03/2015 10:27:00 AM [facility] Breast Unilateral-Right EDT - 07/03/2015 System 10:27:00 AM EDT MG Mammography Diagnostic-Right MG 07/03/2015 09:49:00 AM [facility] Mammography Diagnostic-Right EDT - 07/03/2015 System 09:49:00 AM EDT XR Esophagram Barium XR Esophagram 04/23/2015 08:57:00 AM [facility] Barium EDT - 04/23/2015 System 08:57:00 AM EDT XR Esophagram Gastrografin 04/23/2015 08:57:00 AM [facility] EDT - 04/23/2015 System 08:57:00 AM EDT Venipuncture 2015 07:25:44 AM [facility] EDT - 2015 System 09:00:07 AM EDT XR Neck Soft Tissue XR Neck Soft 04/11/2015 02:11:00 P M [facility] Tissue EDT - 04/11/2015 System 02:11:00 PM EDT XR Ankle Complete 3 Views-Left XR 03/14/2015 09:07:00 AM [facility] Ankle Complete 3 Views-Left EDT - 03/14/2015 System 09:07:00 AM EDT XR Foot AP + Lateral + 03/14/2015 09:07:00 AM [facility] Oblique-Left XR Foot AP + Lateral EDT - 03/14/2015 System + Oblique-Left 09:07:00 AM EDT Electrocardiographic procedure 03/14/2015 08:43:00 AM [facility] (procedure) EDT - 03/14/2015 System 08:44:00 AM EDT Computed tomography of soft 01/06/2015 04:52:00 AM [facility] tissues of neck (procedure) EDT - 01/06/2015 System 04:52:00 AM EDT US Breast Bilateral US Breast 10/18/2014 09:00:00 AM [facility] Bilateral EST - 10/18/2014 System 09:00:00 AM EST MG Mammography Diagnostic-Right MG 10/18/2014 08:54:00 AM [facility] Mammography Diagnostic-Right EST - 10/18/2014 System 08:54:00 AM EST MG Mammography Screening- 09/05/2014 02:39:00 PM [facility] Bilateral MG Mammography EST - 09/05/2014 System Screening- Bilateral 02:39:00 PM EST Venipuncture 08/25/2014 08:31:15 AM [facility] EST - 08/25/2014 System 10:00:04 AM EST Venipuncture 01/09/2014 08:26:30 AM [facility] EDT - 01/09/2014 System 12:00:00 AM EDT XR Chest PA and Left Lateral XR 11/01/2013 03:12:00 PM [facility] Chest PA and Left Lateral EST - 11/01/2013 System 03:12:00 PM EST Bordetella Pertussis Antigen 10/24/2013 11:54:50 AM [facility] EST - 10/24/2013 System 12:04:00 PM EST US Doppler Venous, Lower 04/05/2013 02:59:00 PM [facility] Extremity-Left US Doppler Venous, EDT - 04/05/2013 System Lower Extremity-Left 02:59:00 PM EDT XR Knee 2 Views-Left XR Knee 2 04/05/2013 02:56:00 PM [facility] Views-Left EDT - 04/05/2013 System 02:56:00 PM EDT XR Pelvis SP Complete XR Pelvis SP 03/28/2013 09:33:00 AM [facility] Complete EDT - 03/28/2013 System 09:33:00 AM EDT XR Hip 2 Views-Left XR Hip 2 03/28/2013 09:33:00 AM [facility] Views-Left EDT - 03/28/2013 System 09:33:00 AM EDT Electrocardiographic procedure 03/06/2013 07:48:16 AM [facility] (procedure) EDT - 03/06/2013 System 08:20:00 AM EDT XR Chest Single AP view XR Chest 03/06/2013 07:48:00 A M [facility] Single AP view EDT - 03/06/2013 System 07:48:00 AM EDT Electrocardiographic procedure 03/02/2013 01:24:04 PM [facility] (procedure) EDT - 03/02/2013 System 01:30:00 PM EDT XR Chest Single AP view XR Chest 03/02/2013 01:24:00 P M [facility] Single AP view EDT - 03/02/2013 System 01:24:00 PM EDT US Breast Bilateral US Breast 01/11/2013 08:18:00 AM [facility] Bilateral EDT - 01/11/2013 System 08:18:00 AM EDT MG Mammography Screening- 01/11/2013 08:17:00 AM [facility] Bilateral MG Mammography EDT - 01/11/2013 System Screening- Bilateral 08:17:00 AM EDT Electrocardiographic procedure 01/11/2013 07:32:00 AM [facility] (procedure) EDT - 01/11/2013 System 11:20:00 AM EDT Computerized axial tomography of 11/30/2012 10:20:00 A M [facility] brain (procedure) EST - 11/30/2012 System 10:20:[address] Maxillofacial without Contrast 11/30/2012 10:18:[address] [facility] CT Maxillofacial without Contrast EST - 11/30/2012 System 10:18:00 AM EST US Breast Unilateral-Right US 05/14/2012 05:04:00 PM [facility] Breast Unilateral-Right EDT - 05/14/2012 System 05:04:00 PM EDT US Breast Bilateral 05/14/2012 05:04:00 PM [facility] EDT - 05/14/2012 System 05:19:25 PM EDT US Pelvis Transvaginal US Pelvis 05/07/2012 03:49:00 P M [facility] Transvaginal EDT - 05/07/2012 System 03:49:00 PM EDT US Pelvis Non-obstetric 05/07/2012 03:49:00 PM [facility] EDT - 05/07/2012 System 04:11:57 PM EDT US Breast Bilateral US Breast 05/07/2012 03:48:00 PM [facility] Bilateral EDT - 05/07/2012 System 03:48:00 PM EDT Electrocardiographic procedure 10/17/2011 11:12:00 AM [facility] (procedure) EST - 10/17/2011 System 11:14:00 AM EST MG Mammography Screening- 10/17/2011 08:44:00 AM [facility] Bilateral MG Mammography EST - 10/17/2011 System Screening- Bilateral 08:44:00 AM EST thyroid nodule removed [facility] Results ID Date Data Source [id number] 05/01/2020 09:30:00 PM EDT [facility] Name Value Range Interpretation Description Data Sup porting Code Source(s) Document(s ) SARS [facility] coronavirus 2 RNA This lab was ordered by [facility] and reported by [facility]. ID Date Data Source [id number] 04/16/2020 08:18:00 PM EDT [facility] Name Value Range Interpretation Description Data Sup porting Code Source(s) Document(s ) SARS [facility] coronavirus 2 RNA This lab was ordered by Nereida Shukla and reported by [facility]. ID Date Data Source [id number] 03/19/2020 03:08:00 PM EDT [facility] Name Value Range Interpretation Description Data Sup porting Code Source(s) Document(s ) SARS [facility] coronavirus 2 RNA This lab was ordered by Nereida Shukla and reported by [facility]. ID Date Data Source [id number] 03/17/2020 04:10:48 PM EDT [facility] System Name Value Range Interpretation Description Data Sup porting Code Source(s) Document(s ) Leukocytes 8.9 Normal (applies WBC Count [facility] [#/volume] in {10^3_uL to non-numeric Health Unspecified } results) System specimen by Automated count Erythrocytes 4.72 Normal (applies RBC Count [facility] [#/volume] in {10^6_uL to non-numeric Health Blood by } results) System Automated count Hemoglobin 13.3 Normal (applies Hemoglobin [facility] [Mass/volume] in {gm/dL} to non-numeric Health Blood results) System Hematocrit 41.3 % Normal (applies Hematocrit [facility] [Volume to non-numeric Health Fraction] of results) System Blood Erythrocyte mean 87.5 fl Normal (applies MCV [facility] corpuscular to non-numeric Health volume [Entitic results) System volume] by Automated count Erythrocyte mean 28.2 pg Normal (applies [facility] corpuscular to non-numeric Health hemoglobin results) System [Entitic mass] by Automated count Erythrocyte mean 32.2 Below low normal [facility] corpuscular {gm/dL} Health hemoglobin System concentration [Mass/volume] by Automated count Erythrocyte 14.1 % Normal (applies RDW-CV [facility] distribution to non-numeric Health width [Entitic results) System volume] by Automated count Platelets 343 Normal (applies Platelet [facility] [#/volume] in {10^3_uL to non-numeric Count Health Plasma by } results) System Automated count Platelet mean 9.4 fl Normal (applies MPV [facility] volume [Entitic to non-numeric Health volume] in Blood results) System by Automated count Monocytes 0.6 Normal (applies Monocyte # [facility] [#/volume] in {10^3_uL to non-numeric Health Blood by Manual } results) System count Eosinophils 0.35 Above high normal Eosinophil # [facility] [#/volume] in {10^3_uL Health Blood } System Neutrophils 5.8 Normal (applies Neutrophil # [facility] [#/volume] in {10^3_uL to non-numeric Health Body fluid } results) System Basophils 0.03 Normal (applies Basophil # [facility] [#/volume] in {10^3_uL to non-numeric Health Blood by } results) System Automated count Lymphocyte 2.1 Normal (applies Lymphocyte # [facility] percent {10^3_uL to non-numeric Health differential } results) System count (procedure) Neutrophils/100 65.2 % Normal (applies Neutrophil % [place] [facility] leukocytes in to non-numeric Health Blood by results) System Automated count Monocytes/100 6.8 % Normal (applies Monocyte % [facility] leukocytes in to non-numeric Health Blood results) System Eosinophils/100 3.9 % Above high normal Eosinophil % [facility] leukocytes in Health Unspecified System specimen Basophils/100 0.3 % Normal (applies Basophil % [facility] leukocytes in to non-numeric Health Unspecified results) System specimen by Manual count Lymphocytes 23.8 % Normal (applies Lymphocyte % [facility] [#/volume] in to non-numeric Health Blood by results) System Automated count ID Date Data Source [id number] 03/17/2020 04:10:48 PM EDT [facility] Name Value Range Interpretation Description Data Sup porting Code Source(s) Document(s ) Thyrotropin 1.078 Normal (applies Thyroid [facility] [Mass/volume] {mIU/mL} to non-numeric Stimulating Health Sy stem in Serum or results) Hormone, Serum Plasma ID Date Data Source [id number] 03/17/2020 04:10:48 PM EDT [facility] Name Value Range Interpretation Description Data Sup porting Code Source(s) Document(s ) Sodium 139 Normal (applies Sodium, Serum [facility] [Moles/volume] in mmol/L to non-numeric Health Serum or Plasma results) System Potassium 4.3 Normal (applies Potassium, [facility] [Mass/volume] in mmol/L to non-numeric Serum Health Serum or Plasma results) System Chloride 106 Normal (applies Chloride, [facility] [Moles/volume] in mmol/L to non-numeric Serum Health Serum or Plasma results) System Carbon dioxide, 20.0 Below low normal CO2, Serum [facility] total mmol/L [facility] [Moles/volume] in System Serum or Plasma TotalProtein 7.0 Normal (applies Total Protein [facility] mg/dl to non-numeric Health results) System Glucose 91 Normal (applies Glucose, [facility] [Mass/volume] in mg/dL to non-numeric Serum Health Serum or Plasma results) System Urea nitrogen 9 mg/dl Normal (applies Blood Urea [facility] [Mass/volume] in to non-numeric Nitrogen, Health Serum or Plasma results) Serum System Creatinine 0.70 Normal (applies Creatinine, [facility] [Mass/volume] in mg/dl to non-numeric Serum Health Serum or Plasma results) System Alkaline 149 Above high Alkaline [facility] phosphatase {IU/L} normal Phosphatase, Health isoenzymes Serum System [Enzymatic activity/volume] in Serum or Plasma by Heat stability Bilirubin.total 0.4 Normal (applies Bilirubin, [facility] [Mass/volume] in mg/dl to non-numeric Serum Total Health Serum or Plasma results) System DirectBilirubin 0.2 Normal (applies Direct [facility] mg/dl to non-numeric Bilirubin Health results) System Aspartate 18 Normal (applies Aspartate [facility] aminotransferase {IU/L} to non-numeric Transaminase, Heal th [Enzymatic results) Serum System activity/volume] in Serum or Plasma by With P-5'-P Albumin 3.8 Below low normal Albumin, [facility] [Mass/volume] in {gm/dl} Serum Health Serum or Plasma System I.Phosphorus 3.5 Normal (applies I. Phosphorus [facility] mg/dl to non-numeric Health results) System Alanine 13 Normal (applies Alanine [facility] aminotransferase {IU/L} to non-numeric Aminotransfer Heal th [Enzymatic results) ase, Serum System activity/volume] in Serum or Plasma Calcium 9.2 Normal (applies Calcium, [facility] [Mass/volume] in mg/dl to non-numeric Total Serum Health Serum or Plasma results) System A/GRatio 1.19 Normal (applies A/G Ratio [facility] to non-numeric Health results) System Urate 4.9 Normal (applies Uric Acid, [facility] [Mass/volume] in mg/dl to non-numeric Serum Health Serum or Plasma results) System Anion gap in Serum 13.00 Above high Anion Gap [facility] or Plasma mmol/L normal Health System Glomerular 84.13 Normal (applies GFR [facility] filtration to non-numeric Health rate/1.73 sq results) System M.predicted [Volume Rate/Area] in Serum or Plasma by Creatinine-based formula (CKD-EPI) eGFR will provide clinicians with a more accurate indicator of renal function then the serum creatinine. The eGFR is automa tically calculated from an empiric formula (endorsed by the [employer] ion) which incorporates age, sex, and race.Clinicians may notice surprisingly low GFR's with serum creatinine valueswithin normal range- particularly in elderly wo men (with low muscle mass).In the hospital setting, the eGFR should add an element of safety in drug dosing, in assessing the risk of IV contrast administration, and in assessing vascular risk.The NKF staging system is as follows:Normal: eGFR >90 with no kidney markersStage 1: eGFR >90 with kidney markers*Stage 2: eGFR 60- 89Stage 3: eGFR 30-59Stage 4: eGFR 15-29Stage 5: eGFR <15 (usually requir ing dialysis)*Markers include: Proteinuria, Hematuria, abnormal imaging-studies, or other blood or urine test abnormalities ID Date Data Source [id number] 03/17/2020 04:10:48 PM EDT [facility] Name Value Range Interpretation Description Data Sup porting Code Source(s) Document(s ) TroponinIQuantitative 0.01 Normal (applies Troponin I [facility] ng/ml to non-numeric Quantitative Health results) System ID Date Data Source [id number] 03/17/2020 04:10:48 PM EDT [facility] Name Value Range Interpretation Description Data Sup porting Code Source(s) Document(s ) aPTT in Blood 28.2 Normal (applies Activated [facility] by Coagulation {Seconds to non-numeric Partial Health assay } results) Thromboplastin System Time ID Date Data Source [id number] 03/17/2020 04:10:48 PM EDT [facility] Name Value Range Interpretation Description Data Sup porting Code Source(s) Document(s ) Prothrombintim 11.20 Normal (applies Prothrombin [facility](PT) {seconds to non-numeric time (PT) Health System } results) INR in Blood 1.07 Normal (applies INR Result [facility] by Coagulation {Ratio} to non-numeric Health Sys tem assay results) Normal = 0.7-1.1Therapeutic = 2.0-3.0Mec hanical Heart = 3.0-4.5 ID Date Data Source [id number] 03/17/2020 04:10:48 PM EDT [facility] Name Value Range Interpretation Description Data Sup porting Code Source(s) Document(s ) Basophil%. 1 % Normal (applies Basophil %. [facility] to non-numeric Health System results) Polys 66 % Normal (applies Polys [facility] to non-numeric Health System results) Bands 1 % Below low normal Bands [facility] Lymphocyte%. 23 % Normal (applies Lymphocyte %. [facility] to non-numeric [facility] System results) Platelets Adequate Normal (applies Platelet Count [facility] [#/volume] to non-numeric Estimate Health System in Blood by results) Estimate Monocyte%. 7 % Normal (applies Monocyte %. [facility] to non-numeric [facility] System results) Eosinophils% 2 % Normal (applies Eosinophils %. [facility] . to non-numeric [facility] System results) NORM Yes Normal (applies NORM [facility] to non-numeric Health System results) ID Date Data Source [id number] 03/17/2020 04:10:48 PM EDT [facility] Name Value Range Interpretation Description Data Sup porting Code Source(s) Document(s ) Leukocytes 13.4 Above high normal WBC Count [facility] [#/volume] in {10^3_uL Health Unspecified } System specimen by Automated count Erythrocytes 5.27 Above high normal RBC Count [facility] [#/volume] in {10^6_uL Health Blood by } System Automated count Hemoglobin 14.9 Normal (applies Hemoglobin [facility] [Mass/volume] in {gm/dL} to non-numeric Health Blood results) System Hematocrit 45.1 % Normal (applies Hematocrit [facility] [Volume to non-numeric Health Fraction] of results) System Blood Erythrocyte mean 85.6 fl Normal (applies MCV [facility] corpuscular to non-numeric Health volume [Entitic results) System volume] by Automated count Erythrocyte mean 28.3 pg Normal (applies MCH [facility] corpuscular to non-numeric Health hemoglobin results) System [Entitic mass] by Automated count Erythrocyte mean 33.0 Normal (applies MCHC [facility] corpuscular {gm/dL} to non-numeric Health hemoglobin results) System concentration [Mass/volume] by Automated count Erythrocyte 14.2 % Normal (applies RDW-CV [facility] distribution to non-numeric Health width [Entitic results) System volume] by Automated count Platelets 399 Normal (applies Platelet [facility] [#/volume] in {10^3_uL to non-numeric Count Health Plasma by } results) System Automated count Platelet mean 8.9 fl Normal (applies MPV [facility] volume [Entitic to non-numeric Health volume] in Blood results) System by Automated count ID Date Data Source [id number] 03/17/2020 04:10:48 PM EDT [facility] Name Value Range Interpretation Description Data Sup porting Code Source(s) Document(s ) Sodium 135 Below low normal Sodium, Serum [facility] [Moles/volume] in mmol/L Health Serum or Plasma System Potassium 5.3 Above high Potassium, [facility] [Mass/volume] in mmol/L normal Serum Health Serum or Plasma System Chloride 101 Normal (applies Chloride, [facility] [Moles/volume] in mmol/L to non-numeric Serum Health Serum or Plasma results) System Carbon dioxide, 20.0 Below low normal CO2, Serum [facility] total mmol/L [facility] [Moles/volume] in System Serum or Plasma TotalProtein 8.7 Above high Total Protein [facility] mg/dl normal Health System Glucose 111 Above high Glucose, [facility] [Mass/volume] in mg/dL normal Serum Health Serum or Plasma System Urea nitrogen 12 Normal (applies Blood Urea [facility] [Mass/volume] in mg/dl to non-numeric Nitrogen, Health Serum or Plasma results) Serum System Creatinine 0.90 Normal (applies Creatinine, [facility] [Mass/volume] in mg/dl to non-numeric Serum Health Serum or Plasma results) System Alkaline 188 Above high Alkaline [facility] phosphatase {IU/L} normal Phosphatase, Health isoenzymes Serum System [Enzymatic activity/volume] in Serum or Plasma by Heat stability Bilirubin.total 0.9 Normal (applies Bilirubin, [facility] [Mass/volume] in mg/dl to non-numeric Serum Total Health Serum or Plasma results) System DirectBilirubin 0.4 Normal (applies Direct [facility] mg/dl to non-numeric Bilirubin Health results) System Aspartate 15 Normal (applies Aspartate [facility] aminotransferase {IU/L} to non-numeric Transaminase, Heal th [Enzymatic results) Serum System activity/volume] in Serum or Plasma by With P-5'-P Albumin 4.7 Normal (applies Albumin, [facility] [Mass/volume] in {gm/dl} to non-numeric Serum Health Serum or Plasma results) System I.Phosphorus 4.4 Normal (applies I. Phosphorus [facility] mg/dl to non-numeric Health results) System Alanine 7 Normal (applies Alanine [facility] aminotransferase {IU/L} to non-numeric Aminotransfer Heal th [Enzymatic results) ase, Serum System activity/volume] in Serum or Plasma Calcium 10.2 Normal (applies Calcium, [facility] [Mass/volume] in mg/dl to non-numeric Total Serum Health Serum or Plasma results) System A/GRatio 1.18 Normal (applies A/G Ratio [facility] to non-numeric Health results) System Urate 5.3 Normal (applies Uric Acid, [facility] [Mass/volume] in mg/dl to non-numeric Serum Health Serum or Plasma results) System Anion gap in Serum 14.00 Above high Anion Gap [facility] or Plasma mmol/L normal Health System Glomerular 62.93 Normal (applies GFR [facility] filtration to non-numeric Health rate/1.73 sq results) System M.predicted [Volume Rate/Area] in Serum or Plasma by Creatinine-based formula (CKD-EPI) eGFR will provide clinicians with a more accurate indicator of renal function then the serum creatinine. The eGFR is automa tically calculated from an empiric formula (endorsed by the National Kidney [employer] ion) which incorporates age, sex, and race.Clinicians may notice surprisingly low GFR's with serum creatinine valueswithin normal range- particularly in elderly wo men (with low muscle mass).In the hospital setting, the eGFR should add an element of safety in drug dosing, in assessing the risk of IV contrast administration, and in assessing vascular risk.The NKF staging system is as follows:Normal: eGFR >90 with no kidney markersStage 1: eGFR >90 with kidney markers*Stage 2: eGFR 60- 89Stage 3: eGFR 30-59Stage 4: eGFR 15-29Stage 5: eGFR <15 (usually requir ing dialysis)*Markers include: Proteinuria, Hematuria, abnormal imaging-studies, or other blood or urine test abnormalities ID Date Data Source [id number] 03/17/2020 04:10:48 PM EDT [facility] Name Value Range Interpretation Description Data Sup porting Code Source(s) Document(s ) Bacteria NO GROWTH Culture [facility] identified in Bacteria Blood Health Syst em Blood by [facility] culture ID Date Data Source [id number] 03/17/2020 04:10:48 PM EDT [facility] Name Value Range Interpretation Description Data Sup porting Code Source(s) Document(s ) Bacteria NO GROWTH Culture [facility] identified in Bacteria Blood Health Syst em Blood by [facility] culture ID Date Data Source [id number] 03/17/2020 04:10:48 PM EDT [facility] Name Value Range Interpretation Description Data Source(s ) Supporting Code Document(s ) ReninLev 22.15 Above high normal Renin Level, [facility] el,Serum ng/mL/h Serum Health System Test performed by: [facility] [address] [id number] Test Performed at: [facility], [facility], [address] [place] [address] Dr. Tylor vigil ID Date Data Source [id number] 03/17/2020 04:10:48 PM EDT [facility] Name Value Range Interpretation Description Data Sup porting Code Source(s) Document(s ) Aldosterone 2 ng/dL Normal (applies Aldosterone, [facility] [Mass/volume] to non-numeric Serum Health Syst em in Serum or results) Plasma --1 hour post XXX challenge Unable to flag abnormal result(s), p lease refer to reference range(s) below: Adult Reference Ranges for Aldosterone, LC/MS/MS: Upright 8:00 - 10:00 am < or = 28 ng/dL Upright 4:00 - 6:00 pm < or = 21 ng/dL Supine 8:00 - 10:00 am 3 - 16 ng/dL This test was performed at: [facility] [address] [address] Test Performed at: [employer] [facility], [address] [place] [id number] Hardeep Slater M.D., Ph.D. ID Date Data Source [id number] 03/17/2020 04:10:48 PM EDT [facility] Name Value Range Interpretation Description Data Sup porting Code Source(s) Document(s ) Leukocytes 11.6 Above high normal WBC Count [facility] [#/volume] in {10^3_uL Health Unspecified } System specimen by Automated count Erythrocytes 5.28 Above high normal RBC Count [facility] [#/volume] in {10^6_uL Health Blood by } System Automated count Hemoglobin 14.8 Normal (applies Hemoglobin [facility] [Mass/volume] in {gm/dL} to non-numeric Health Blood results) System Hematocrit 45.1 % Normal (applies Hematocrit [facility] [Volume to non-numeric Health Fraction] of results) System Blood Erythrocyte mean 85.4 fl Normal (applies MCV [facility] corpuscular to non-numeric Health volume [Entitic results) System volume] by Automated count Erythrocyte mean 28.0 pg Normal (applies MCH [facility] corpuscular to non-numeric Health hemoglobin results) System [Entitic mass] by Automated count Erythrocyte mean 32.8 Below low normal MCHC [facility] corpuscular {gm/dL} Health hemoglobin System concentration [Mass/volume] by Automated count Erythrocyte 14.2 % Normal (applies RDW-CV [facility] distribution to non-numeric Health width [Entitic results) System volume] by Automated count Platelets 416 Above high normal Platelet [facility] [#/volume] in {10^3_uL Count Health Plasma by } System Automated count Platelet mean 9.1 fl Normal (applies MPV [facility] volume [Entitic to non-numeric Health volume] in Blood results) System by Automated count Monocytes 0.8 Normal (applies Monocyte # [facility] [#/volume] in {10^3_uL to non-numeric Health Blood by Manual } results) System count Eosinophils 0.17 Normal (applies Eosinophil # [facility] [#/volume] in {10^3_uL to non-numeric Health Blood } results) System Neutrophils 8.0 Normal (applies Neutrophil # [facility] [#/volume] in {10^3_uL to non-numeric Health Body fluid } results) System Basophils 0.03 Normal (applies Basophil # [facility] [#/volume] in {10^3_uL to non-numeric Health Blood by } results) System Automated count Lymphocyte 2.6 Normal (applies Lymphocyte # [facility] percent {10^3_uL to non-numeric Health differential } results) System count (procedure) Neutrophils/100 69.0 % Normal (applies Neutrophil % [place] leukocytes in to non-numeric Health Blood by results) System Automated count Monocytes/100 6.9 % Normal (applies Monocyte % [facility] leukocytes in to non-numeric Health Blood results) System Eosinophils/100 1.5 % Normal (applies Eosinophil % [place] leukocytes in to non-numeric Health Unspecified results) System specimen Basophils/100 0.3 % Normal (applies Basophil % [facility] leukocytes in to non-numeric Health Unspecified results) System specimen by Manual count Lymphocytes 22.3 % Normal (applies Lymphocyte % [facility] [#/volume] in to non-numeric Health Blood by results) System Automated count ID Date Data Source [id number] 03/17/2020 04:10:48 PM EDT [facility] Name Value Range Interpretation Description Data Sup porting Code Source(s) Document(s ) Thyrotropin 0.811 Normal (applies Thyroid [facility] [Mass/volume] {mIU/mL} to non-numeric Stimulating Health Sy stem in Serum or results) Hormone, Serum Plasma ID Date Data Source [id number] 03/17/2020 04:10:48 PM EDT [facility] Name Value Range Interpretation Description Data Sup porting Code Source(s) Document(s ) Sodium 133 Below low normal Sodium, Serum [facility] [Moles/volume] in mmol/L Health Serum or Plasma System Potassium 5.2 Above high Potassium, [facility] [Mass/volume] in mmol/L normal Serum Health Serum or Plasma System Chloride 103 Normal (applies Chloride, [facility] [Moles/volume] in mmol/L to non-numeric Serum Health Serum or Plasma results) System Carbon dioxide, 17.0 Below low normal CO2, Serum [facility] total mmol/L Health [Moles/volume] in System Serum or Plasma TotalProtein 8.3 Above high Total Protein [facility] mg/dl normal Health System Glucose 152 Above high Glucose, [facility] [Mass/volume] in mg/dL normal Serum Health Serum or Plasma System Urea nitrogen 14 Normal (applies Blood Urea [facility] [Mass/volume] in mg/dl to non-numeric Nitrogen, Health Serum or Plasma results) Serum System Creatinine 0.90 Normal (applies Creatinine, [facility] [Mass/volume] in mg/dl to non-numeric Serum Health Serum or Plasma results) System Alkaline 179 Above high Alkaline [facility] phosphatase {IU/L} normal Phosphatase, Health isoenzymes Serum System [Enzymatic activity/volume] in Serum or Plasma by Heat stability Bilirubin.total 1.2 Normal (applies Bilirubin, [facility] [Mass/volume] in mg/dl to non-numeric Serum Total Health Serum or Plasma results) System DirectBilirubin 0.5 Above high Direct [facility] mg/dl normal Bilirubin Health System Aspartate 14 Normal (applies Aspartate [facility] aminotransferase {IU/L} to non-numeric Transaminase, Heal th [Enzymatic results) Serum System activity/volume] in Serum or Plasma by With P-5'-P Albumin 4.4 Normal (applies Albumin, [facility] [Mass/volume] in {gm/dl} to non-numeric Serum Health Serum or Plasma results) System I.Phosphorus 5.5 Above high I. Phosphorus [facility] mg/dl normal Health System Alanine 8 Normal (applies Alanine [facility] aminotransferase {IU/L} to non-numeric Aminotransfer Heal th [Enzymatic results) ase, Serum System activity/volume] in Serum or Plasma Calcium 10.1 Normal (applies Calcium, [facility] [Mass/volume] in mg/dl to non-numeric Total Serum Health Serum or Plasma results) System A/GRatio 1.13 Normal (applies A/G Ratio [facility] to non-numeric Health results) System Urate 6.0 Normal (applies Uric Acid, [facility] [Mass/volume] in mg/dl to non-numeric Serum Health Serum or Plasma results) System Anion gap in Serum 13.00 Above high Anion Gap [facility] or Plasma mmol/L normal Health System Glomerular 62.93 Normal (applies GFR [facility] filtration to non-numeric Health rate/1.73 sq results) System M.predicted [Volume Rate/Area] in Serum or Plasma by Creatinine-based formula (CKD-EPI) eGFR will provide clinicians with a more accurate indicator of renal function then the serum creatinine. The eGFR is automa tically calculated from an empiric formula (endorsed by the National Kidney [employer] ion) which incorporates age, sex, and race.Clinicians may notice surprisingly low GFR's with serum creatinine valueswithin normal range- particularly in elderly wo men (with low muscle mass).In the hospital setting, the eGFR should add an element of safety in drug dosing, in assessing the risk of IV contrast administration, and in assessing vascular risk.The NKF staging system is as follows:Normal: eGFR >90 with no kidney markersStage 1: eGFR >90 with kidney markers*Stage 2: eGFR 60- 89Stage 3: eGFR 30-59Stage 4: eGFR 15-29Stage 5: eGFR <15 (usually requir ing dialysis)*Markers include: Proteinuria, Hematuria, abnormal imaging-studies, or other blood or urine test abnormalities ID Date Data Source [id number] 03/17/2020 04:10:48 PM EDT [facility] System Name Value Range Interpretation Description Data Source(s ) Supporting Code Document(s ) LacticAc 1.66 Normal (applies to Lactic Acid, [facility] id,Plasm {mEq/L} non-numeric Plasma *[facility] RAK[facility]* CAMILA Y* ID Date Data Source [id number] 03/17/2020 04:10:48 PM EDT [facility] Name Value Range Interpretation Description Data Sup porting Code Source(s) Document(s ) Leukocytes 9.5 Normal (applies WBC Count [facility] [#/volume] in {10^3_uL to non-numeric Health Unspecified } results) System specimen by Automated count Erythrocytes 5.21 Above high normal RBC Count [facility] [#/volume] in {10^6_uL Health Blood by } System Automated count Hemoglobin 14.5 Normal (applies Hemoglobin [facility] [Mass/volume] in {gm/dL} to non-numeric Health Blood results) System Hematocrit 45.6 % Normal (applies Hematocrit [facility] [Volume to non-numeric Health Fraction] of results) System Blood Erythrocyte mean 87.5 fl Normal (applies MCV [facility] corpuscular to non-numeric Health volume [Entitic results) System volume] by Automated count Erythrocyte mean 27.8 pg Normal (applies MCH [facility] corpuscular to non-numeric Health hemoglobin results) System [Entitic mass] by Automated count Erythrocyte mean 31.8 Below low normal MCHC [facility] corpuscular {gm/dL} Health hemoglobin System concentration [Mass/volume] by Automated count Erythrocyte 14.3 % Normal (applies RDW-CV [facility] distribution to non-numeric Health width [Entitic results) System volume] by Automated count Platelets 372 Normal (applies Platelet [facility] [#/volume] in {10^3_uL to non-numeric Count Health Plasma by } results) System Automated count Platelet mean 9.2 fl Normal (applies MPV [facility] volume [Entitic to non-numeric Health volume] in Blood results) System by Automated count Monocytes 1.0 Above high normal Monocyte # [facility] [#/volume] in {10^3_uL Health Blood by Manual } System count Eosinophils 0.28 Normal (applies Eosinophil # [facility] [#/volume] in {10^3_uL to non-numeric Health Blood } results) System Neutrophils 4.8 Normal (applies Neutrophil # [facility] [#/volume] in {10^3_uL to non-numeric Health Body fluid } results) System Basophils 0.05 Normal (applies Basophil # [facility] [#/volume] in {10^3_uL to non-numeric Health Blood by } results) System Automated count Lymphocyte 3.3 Normal (applies Lymphocyte # [facility] percent {10^3_uL to non-numeric Health differential } results) System count (procedure) Neutrophils/100 50.9 % Normal (applies Neutrophil % [place] [facility] leukocytes in to non-numeric Health Blood by results) System Automated count Monocytes/100 10.6 % Above high normal Monocyte % [place] leukocytes in [facility] Blood System Eosinophils/100 3.0 % Normal (applies Eosinophil % [place] leukocytes in to non-numeric Health Unspecified results) System specimen Basophils/100 0.5 % Normal (applies Basophil % [place] leukocytes in to non-numeric [facility] Unspecified results) System specimen by Manual count Lymphocytes 35.0 % Normal (applies Lymphocyte % [place] [#/volume] in to non-numeric Health Blood by results) System Automated count ID Date Data Source [id number] 03/17/2020 04:10:48 PM EDT [facility] Name Value Range Interpretation Description Data Sup porting Code Source(s) Document(s ) Sodium 136 Below low normal Sodium, Serum [facility] [facility] [Moles/volume] in mmol/L Health Serum or Plasma System Potassium 4.8 Normal (applies Potassium, [facility] [Mass/volume] in mmol/L to non-numeric Serum Health Serum or Plasma results) System Chloride 101 Normal (applies Chloride, [facility] [Moles/volume] in mmol/L to non-numeric Serum Health Serum or Plasma results) System Carbon dioxide, 25.0 Normal (applies CO2, Serum [facility] [facility] total mmol/L to non-numeric Health [Moles/volume] in results) System Serum or Plasma TotalProtein 7.7 Normal (applies Total Protein [place] mg/dl to non-numeric Health results) System Glucose 112 Above high Glucose, [facility] [Mass/volume] in mg/dL normal Serum Health Serum or Plasma System Urea nitrogen 15 Normal (applies Blood Urea [place] [Mass/volume] in mg/dl to non-numeric Nitrogen, Health Serum or Plasma results) Serum System Creatinine 0.97 Normal (applies Creatinine, [facility] [Mass/volume] in mg/dl to non-numeric Serum Health Serum or Plasma results) System Alkaline 165 Above high Alkaline [facility] phosphatase {IU/L} normal Phosphatase, Health isoenzymes Serum System [Enzymatic activity/volume] in Serum or Plasma by Heat stability Bilirubin.total 1.0 Normal (applies Bilirubin, [place] [Mass/volume] in mg/dl to non-numeric Serum Total Health Serum or Plasma results) System DirectBilirubin 0.4 Normal (applies Direct [place] mg/dl to non-numeric Bilirubin [facility] results) System Aspartate 16 Normal (applies Aspartate [facility] aminotransferase {IU/L} to non-numeric Transaminase, [facility]al [facility] [Enzymatic results) Serum System activity/volume] in Serum or Plasma by With P-5'-P Albumin 4.2 Normal (applies Albumin, [facility] [Mass/volume] in {gm/dl} to non-numeric Serum Health Serum or Plasma results) System I.Phosphorus 5.5 Above high I. Phosphorus [facility] mg/dl normal [facility] System Alanine 7 Normal (applies Alanine [facility] aminotransferase {IU/L} to non-numeric Aminotransfer [facility] [Enzymatic results) ase, Serum System activity/volume] in Serum or Plasma Calcium 9.8 Normal (applies Calcium, [facility] [Mass/volume] in mg/dl to non-numeric Total Serum [facility] Serum or Plasma results) System A/GRatio 1.20 Normal (applies A/G Ratio [facility] to non-numeric Health results) System Urate 6.2 Normal (applies Uric Acid, [facility] [Mass/volume] in mg/dl to non-numeric Serum Health Serum or Plasma results) System Anion gap in Serum 10.00 Normal (applies Anion Gap [place] or Plasma mmol/L to non-numeric Health results) System Glomerular 57.72 Normal (applies GFR [facility] filtration to non-numeric Health rate/1.73 sq results) System M.predicted [Volume Rate/Area] in Serum or Plasma by Creatinine-based formula (CKD-EPI) eGFR will provide clinicians with a more accurate indicator of renal function then the serum creatinine. The eGFR is automa tically calculated from an empiric formula (endorsed by the [employer]) which incorporates age, sex, and race.Clinicians may notice surprisingly low GFR's with serum creatinine valueswithin normal range- particularly in elderly wo men (with low muscle mass).In the hospital setting, the eGFR should add an element of safety in drug dosing, in assessing the risk of IV contrast administration, and in assessing vascular risk.The NKF staging system is as follows:Normal: eGFR >90 with no kidney markersStage 1: eGFR >90 with kidney markers*Stage 2: eGFR 60- 89Stage 3: eGFR 30-59Stage 4: eGFR 15-29Stage 5: eGFR <15 (usually requir ing dialysis)*Markers include: Proteinuria, Hematuria, abnormal imaging-studies, or other blood or urine test abnormalities ID Date Data Source [id number] 03/17/2020 04:10:48 PM EDT [facility] Name Value Range Interpretation Description Data Source(s ) Supporting Code Document(s ) CREATINI 0.97 Normal (applies to CREATININE, 24 [place],24HRU non-numeric HR URINE [facility] System RINE results) VMA,24HR 9.4 Normal (applies to VMA, 24HR URINE [place] URINE {mg/24_ho non-numeric Health System ur} results) Creatini 0.97 Below low normal Creatinine, [facility] ne,Urine Urine. Health System . ID Date Data Source [id number] 03/17/2020 04:10:48 PM EDT [facility] Name Value Range Interpretation Description Data Sup porting Code Source(s) Document(s ) Leukocytes 9.0 Normal (applies WBC Count [facility] [#/volume] in {10^3_uL to non-numeric Health Unspecified } results) System specimen by Automated count Erythrocytes 5.26 Above high normal RBC Count [place] [#/volume] in {10^6_uL [facility] Blood by } System Automated count Hemoglobin 14.7 Normal (applies Hemoglobin [facility] [Mass/volume] in {gm/dL} to non-numeric Health Blood results) System Hematocrit 45.6 % Normal (applies Hematocrit [facility] [Volume to non-numeric Health Fraction] of results) System Blood Erythrocyte mean 86.7 fl Normal (applies MCV [place] corpuscular to non-numeric Health volume [Entitic results) System volume] by Automated count Erythrocyte mean 27.9 pg Normal (applies MCH [place] corpuscular to non-numeric Health hemoglobin results) System [Entitic mass] by Automated count Erythrocyte mean 32.2 Below low normal MCHC [place] corpuscular {gm/dL} Health hemoglobin System concentration [Mass/volume] by Automated count Erythrocyte 13.9 % Normal (applies RDW-CV [facility] distribution to non-numeric Health width [Entitic results) System volume] by Automated count Platelets 360 Normal (applies Platelet [facility] [#/volume] in {10^3_uL to non-numeric Count Health Plasma by } results) System Automated count Platelet mean 9.1 fl Normal (applies MPV [facility] volume [Entitic to non-numeric Health volume] in Blood results) System by Automated count Monocytes 0.6 Normal (applies Monocyte # [facility] [#/volume] in {10^3_uL to non-numeric Health Blood by Manual } results) System count Eosinophils 0.36 Above high normal Eosinophil # [place] [#/volume] in {10^3_uL Health Blood } System Neutrophils 5.1 Normal (applies Neutrophil # [place] [#/volume] in {10^3_uL to non-numeric Health Body fluid } results) System Basophils 0.02 Normal (applies Basophil # [facility] [#/volume] in {10^3_uL to non-numeric Health Blood by } results) System Automated count Lymphocyte 2.9 Normal (applies Lymphocyte # [facility] percent {10^3_uL to non-numeric Health differential } results) System count (procedure) Neutrophils/100 56.8 % Normal (applies Neutrophil % [place] leukocytes in to non-numeric Health Blood by results) System Automated count Monocytes/100 6.9 % Normal (applies Monocyte % [place] leukocytes in to non-numeric [facility] Blood results) System Eosinophils/100 4.0 % Above high normal Eosinophil % [place] [facility] in [facility] Unspecified System specimen Basophils/100 0.2 % Normal (applies Basophil % [place] leukocytes in to non-numeric Health Unspecified results) System specimen by Manual count Lymphocytes 32.1 % Normal (applies Lymphocyte % [place] [#/volume] in to non-numeric Health Blood by results) System Automated count ID Date Data Source [id number] 03/17/2020 04:10:48 PM EDT [facility] Name Value Range Interpretation Description Data Sup porting Code Source(s) Document(s ) Sodium 136 Below low normal Sodium, Serum [place] [facility] [Moles/volume] in mmol/L Health Serum or Plasma System Potassium 5.1 Above high Potassium, [facility] [Mass/volume] in mmol/L normal Serum Health Serum or Plasma System Chloride 99 Normal (applies Chloride, [facility] [Moles/volume] in mmol/L to non-numeric Serum Health Serum or Plasma results) System Carbon dioxide, 26.0 Normal (applies CO2, Serum [place] total mmol/L to non-numeric Health [Moles/volume] in results) System Serum or Plasma TotalProtein 7.8 Normal (applies Total Protein [place] mg/dl to non-numeric Health results) System Glucose 112 Above high Glucose, [facility] [Mass/volume] in mg/dL normal Serum Health Serum or Plasma System Urea nitrogen 11 Normal (applies Blood Urea [place] [facility] [Mass/volume] in mg/dl to non-numeric Nitrogen, Health Serum or Plasma results) Serum System Creatinine 0.87 Normal (applies Creatinine, [facility] [Mass/volume] in mg/dl to non-numeric Serum Health Serum or Plasma results) System Alkaline 156 Above high Alkaline [facility] phosphatase {IU/L} normal Phosphatase, Health isoenzymes Serum System [Enzymatic activity/volume] in Serum or Plasma by Heat stability Bilirubin.total 0.7 Normal (applies Bilirubin, [place] [Mass/volume] in mg/dl to non-numeric Serum Total Health Serum or Plasma results) System DirectBilirubin 0.3 Normal (applies Direct [place] mg/dl to non-numeric Bilirubin Health results) System Aspartate 19 Normal (applies Aspartate [facility] aminotransferase {IU/L} to non-numeric Transaminase, [facility] [Enzymatic results) Serum System activity/volume] in Serum or Plasma by With P-5'-P Albumin 4.3 Normal (applies Albumin, [facility] [Mass/volume] in {gm/dl} to non-numeric Serum Health Serum or Plasma results) System I.Phosphorus 4.8 Above high I. Phosphorus [facility] mg/dl normal [facility] System Alanine 15 Normal (applies Alanine [facility] aminotransferase {IU/L} to non-numeric Aminotransfer [facility] [Enzymatic results) ase, Serum System activity/volume] in Serum or Plasma Calcium 10.2 Normal (applies Calcium, [facility] [Mass/volume] in mg/dl to non-numeric Total Serum Health Serum or Plasma results) System A/GRatio 1.23 Normal (applies A/G Ratio [facility] to non-numeric Health results) System Urate 6.7 Normal (applies Uric Acid, [facility] [Mass/volume] in mg/dl to non-numeric Serum Health Serum or Plasma results) System Anion gap in Serum 11.00 Normal (applies Anion Gap [place] or Plasma mmol/L to non-numeric Health results) System Glomerular 65.44 Normal (applies GFR [facility] filtration to non-numeric Health rate/1.73 sq results) System M.predicted [Volume Rate/Area] in Serum or Plasma by Creatinine-based formula (CKD-EPI) eGFR will provide clinicians with a more accurate indicator of renal function then the serum creatinine. The eGFR is automa tically calculated from an empiric formula (endorsed by the [employer]) which incorporates age, sex, and race.Clinicians may notice surprisingly low GFR's with serum creatinine valueswithin normal range- particularly in elderly wo men (with low muscle mass).In the hospital setting, the eGFR should add an element of safety in drug dosing, in assessing the risk of IV contrast administration, and in assessing vascular risk.The NKF staging system is as follows:Normal: eGFR >90 with no kidney markersStage 1: eGFR >90 with kidney markers*Stage 2: eGFR 60- 89Stage 3: eGFR 30-59Stage 4: eGFR 15-29Stage 5: eGFR <15 (usually requir ing dialysis)*Markers include: Proteinuria, Hematuria, abnormal imaging-studies, or other blood or urine test abnormalities ID Date Data Source [id number] 03/17/2020 04:10:48 PM EDT [facility] System Name Value Range Interpretation Description Data Sup porting Code Source(s) Document(s ) Leukocytes 14.1 Above high normal WBC Count [facility] [#/volume] in {10^3_uL Health Unspecified } System specimen by Automated count Erythrocytes 4.91 Normal (applies RBC Count [facility] [#/volume] in {10^6_uL to non-numeric Health Blood by } results) System Automated count Hemoglobin 13.8 Normal (applies Hemoglobin [facility] [Mass/volume] in {gm/dL} to non-numeric Health Blood results) System Hematocrit 42.5 % Normal (applies Hematocrit [facility] [Volume to non-numeric Health Fraction] of results) System Blood Erythrocyte mean 86.6 fl Normal (applies MCV [facility] [facility] corpuscular to non-numeric Health volume [Entitic results) System volume] by Automated count Erythrocyte mean 28.1 pg Normal (applies MCH [place] [facility] corpuscular to non-numeric Health hemoglobin results) System [Entitic mass] by Automated count Erythrocyte mean 32.5 Below low normal [facility] [place] corpuscular {gm/dL} Health hemoglobin System concentration [Mass/volume] by Automated count Erythrocyte 13.9 % Normal (applies RDW-CV [facility] distribution to non-numeric Health width [Entitic results) System volume] by Automated count Platelets 276 Normal (applies Platelet [facility] [#/volume] in {10^3_uL to non-numeric Count Health Plasma by } results) System Automated count Platelet mean 8.8 fl Normal (applies MPV [facility] volume [Entitic to non-numeric Health volume] in Blood results) System by Automated count Monocytes 0.6 Normal (applies Monocyte # [facility] [#/volume] in {10^3_uL to non-numeric Health Blood by Manual } results) System count Eosinophils 0.02 Below low normal Eosinophil # [place] [#/volume] in {10^3_uL Health Blood } System Neutrophils 12.6 Above high normal Neutrophil # [place] [#/volume] in {10^3_uL Health Body fluid } System Basophils 0.03 Normal (applies Basophil # [facility] [#/volume] in {10^3_uL to non-numeric Health Blood by } results) System Automated count Lymphocyte 0.9 Below low normal Lymphocyte # [place] percent {10^3_uL [facility] differential } System count (procedure) Neutrophils/100 89.3 % Normal (applies Neutrophil % [place] leukocytes in to non-numeric Health Blood by results) System Automated count Monocytes/100 4.1 % Below low normal Monocyte % [place] leukocytes in [facility] Blood System Eosinophils/100 0.1 % Below low normal Eosinophil % [place] [facility] leukocytes in [facility] Unspecified System specimen Basophils/100 0.2 % Normal (applies Basophil % [place] leukocytes in to non-numeric Health Unspecified results) System specimen by Manual count Lymphocytes 6.3 % Below low normal Lymphocyte % [place] [#/volume] in Health Blood by System Automated count ID Date Data Source [id number] 03/17/2020 04:10:48 PM EDT [facility] System Name Value Range Interpretation Description Data Sup porting Code Source(s) Document(s ) Sodium 135 Below low normal Sodium, Serum [facility] [facility] [Moles/volume] in mmol/L Health Serum or Plasma System Potassium 4.8 Normal (applies Potassium, [facility] [Mass/volume] in mmol/L to non-numeric Serum Health Serum or Plasma results) System Chloride 101 Normal (applies Chloride, [facility] [Moles/volume] in mmol/L to non-numeric Serum Health Serum or Plasma results) System Carbon dioxide, 19.0 Below low normal CO2, Serum [facility] total mmol/L [facility] [Moles/volume] in System Serum or Plasma TotalProtein 7.4 Normal (applies Total Protein [facility] mg/dl to non-numeric Health results) System Glucose 164 Above high Glucose, [facility] [Mass/volume] in mg/dL normal Serum Health Serum or Plasma System Urea nitrogen 7 mg/dl Normal (applies Blood Urea [facility] [facility] [Mass/volume] in to non-numeric Nitrogen, Health Serum or Plasma results) Serum System Creatinine 0.76 Normal (applies Creatinine, [facility] [Mass/volume] in mg/dl to non-numeric Serum Health Serum or Plasma results) System Alkaline 136 Above high Alkaline [facility] phosphatase {IU/L} normal Phosphatase, Health isoenzymes Serum System [Enzymatic activity/volume] in Serum or Plasma by Heat stability Bilirubin.total 0.5 Normal (applies Bilirubin, [place] [Mass/volume] in mg/dl to non-numeric Serum Total Health Serum or Plasma results) System DirectBilirubin 0.3 Normal (applies Direct [place] mg/dl to non-numeric Bilirubin Health results) System Aspartate 21 Normal (applies Aspartate [facility] aminotransferase {IU/L} to non-numeric Transaminase, [facility]al [facility] [Enzymatic results) Serum System activity/volume] in Serum or Plasma by With P-5'-P Albumin 4.1 Normal (applies Albumin, [facility] [Mass/volume] in {gm/dl} to non-numeric Serum Health Serum or Plasma results) System I.Phosphorus 2.2 Below low normal I. Phosphorus [facility] mg/dl [facility] Alanine 19 Normal (applies Alanine [facility] aminotransferase {IU/L} to non-numeric Aminotransfer [facility] [Enzymatic results) ase, Serum System activity/volume] in Serum or Plasma Calcium 9.7 Normal (applies Calcium, [facility] [Mass/volume] in mg/dl to non-numeric Total Serum Health Serum or Plasma results) System A/GRatio 1.24 Normal (applies A/G Ratio [facility] to non-numeric Health results) System Urate 4.7 Normal (applies Uric Acid, [facility] [Mass/volume] in mg/dl to non-numeric Serum Health Serum or Plasma results) System Anion gap in Serum 15.00 Above high Anion Gap [facility] or Plasma mmol/L normal Health System Glomerular 76.47 Normal (applies GFR [facility] filtration to non-numeric Health rate/1.73 sq results) System M.predicted [Volume Rate/Area] in Serum or Plasma by Creatinine-based formula (CKD-EPI) eGFR will provide clinicians with a more accurate indicator of renal function then the serum creatinine. The eGFR is automa tically calculated from an empiric formula (endorsed by the [employer]) which incorporates age, sex, and race.Clinicians may notice surprisingly low GFR's with serum creatinine valueswithin normal range- particularly in elderly wo men (with low muscle mass).In the hospital setting, the eGFR should add an element of safety in drug dosing, in assessing the risk of IV contrast administration, and in assessing vascular risk.The NKF staging system is as follows:Normal: eGFR >90 with no kidney markersStage 1: eGFR >90 with kidney markers*Stage 2: eGFR 60- 89Stage 3: eGFR 30-59Stage 4: eGFR 15-29Stage 5: eGFR <15 (usually requir ing dialysis)*Markers include: Proteinuria, Hematuria, abnormal imaging-studies, or other blood or urine test abnormalities ID Date Data Source [id number] 03/17/2020 04:10:48 PM EDT [facility] Name Value Range Interpretation Code Description Data [place] rce(s) Supporting Document(s ) Lipase 6 U/L Below low normal Lipase, Serum [facility] [Enzymatic [facility] System activity/vo lume] in Serum or Plasma ID Date Data Source [id number] 03/17/2020 04:10:48 PM EDT [facility] Name Value Range Interpretation Description Data Sup porting Code Source(s) Document(s ) Amylase 98 {IU/L} Normal (applies to Amylase, Serum [facility] [Enzymatic non-numeric Health System activity/vo results) lume] in Serum or Plasma ID Date Data Source [id number] 03/17/2020 04:10:48 PM EDT [facility] Name Value Range Interpretation Description Data Sup porting Code Source(s) Document(s ) Leukocytes 9.6 Normal (applies WBC Count [facility] [#/volume] in {10^3_uL to non-numeric Health Unspecified } results) System specimen by Automated count Erythrocytes 4.72 Normal (applies RBC Count [facility] [#/volume] in {10^6_uL to non-numeric Health Blood by } results) System Automated count Hemoglobin 13.2 Normal (applies Hemoglobin [facility] [Mass/volume] in {gm/dL} to non-numeric Health Blood results) System Hematocrit 41.4 % Normal (applies Hematocrit [facility] [Volume to non-numeric Health Fraction] of results) System Blood Erythrocyte mean 87.7 fl Normal (applies MCV [facility] [facility] corpuscular to non-numeric Health volume [Entitic results) System volume] by Automated count Erythrocyte mean 28.0 pg Normal (applies MCH [facility] [facility] corpuscular to non-numeric Health hemoglobin results) System [Entitic mass] by Automated count Erythrocyte mean 31.9 Below low normal [facility] [place] corpuscular {gm/dL} Health hemoglobin System concentration [Mass/volume] by Automated count Erythrocyte 14.6 % Above high normal RDW-CV [facility] distribution Health width [Entitic System volume] by Automated count Platelets 397 Normal (applies Platelet [facility] [#/volume] in {10^3_uL to non-numeric Count Health Plasma by } results) System Automated count Platelet mean 8.8 fl Normal (applies MPV [facility] volume [Entitic to non-numeric Health volume] in Blood results) System by Automated count Monocytes 0.6 Normal (applies Monocyte # [facility] [#/volume] in {10^3_uL to non-numeric Health Blood by Manual } results) System count Eosinophils 0.16 Normal (applies Eosinophil # [facility] [facility] [#/volume] in {10^3_uL to non-numeric Health Blood } results) System Neutrophils 6.8 Normal (applies Neutrophil # [facility] [facility] [#/volume] in {10^3_uL to non-numeric Health Body fluid } results) System Basophils 0.02 Normal (applies Basophil # [facility] [#/volume] in {10^3_uL to non-numeric Health Blood by } results) System Automated count Lymphocyte 2.1 Normal (applies Lymphocyte # [facility] percent {10^3_uL to non-numeric Health differential } results) System count (procedure) Neutrophils/100 70.1 % Normal (applies Neutrophil % [place] leukocytes in to non-numeric Health Blood by results) System Automated count Monocytes/100 6.3 % Normal (applies Monocyte % [facility] [facility] leukocytes in to non-numeric [facility] Blood results) System Eosinophils/100 1.7 % Normal (applies Eosinophil % [place] leukocytes in to non-numeric Health Unspecified results) System specimen Basophils/100 0.2 % Normal (applies Basophil % [facility] [facility] leukocytes in to non-numeric Health Unspecified results) System specimen by Manual count Lymphocytes 21.7 % Normal (applies Lymphocyte % [facility] [#/volume] in to non-numeric Health Blood by results) System Automated count ID Date Data Source [id number] 03/17/2020 04:10:48 PM EDT [facility] Name Value Range Interpretation Description Data Sup porting Code Source(s) Document(s ) Sodium 143 Normal (applies Sodium, Serum [facility] [Moles/volume] in mmol/L to non-numeric Health Serum or Plasma results) System Potassium 4.5 Normal (applies Potassium, [facility] [Mass/volume] in mmol/L to non-numeric Serum Health Serum or Plasma results) System Chloride 111 Above high Chloride, [facility] [Moles/volume] in mmol/L normal Serum Health Serum or Plasma System Carbon dioxide, 22.0 Normal (applies CO2, Serum [facility] total mmol/L to non-numeric Health [Moles/volume] in results) System Serum or Plasma TotalProtein 7.0 Normal (applies Total Protein [facility] mg/dl to non-numeric Health results) System Glucose 96 Normal (applies Glucose, [facility] [Mass/volume] in mg/dL to non-numeric Serum Health Serum or Plasma results) System Urea nitrogen 7 mg/dl Normal (applies Blood Urea [facility] [Mass/volume] in to non-numeric Nitrogen, Health Serum or Plasma results) Serum System Creatinine 0.70 Normal (applies Creatinine, [facility] [Mass/volume] in mg/dl to non-numeric Serum Health Serum or Plasma results) System Alkaline 118 Normal (applies Alkaline [facility] phosphatase {IU/L} to non-numeric Phosphatase, Health isoenzymes results) Serum System [Enzymatic activity/volume] in Serum or Plasma by Heat stability Bilirubin.total 0.4 Normal (applies Bilirubin, [facility] [Mass/volume] in mg/dl to non-numeric Serum Total Health Serum or Plasma results) System DirectBilirubin 0.2 Normal (applies Direct [facility] mg/dl to non-numeric Bilirubin Health results) System Aspartate 17 Normal (applies Aspartate [facility] aminotransferase {IU/L} to non-numeric Transaminase, Heal th [Enzymatic results) Serum System activity/volume] in Serum or Plasma by With P-5'-P Albumin 3.8 Below low normal Albumin, [facility] [Mass/volume] in {gm/dl} Serum Health Serum or Plasma System I.Phosphorus 4.0 Normal (applies I. Phosphorus [facility] mg/dl to non-numeric Health results) System Alanine 14 Normal (applies Alanine [facility] aminotransferase {IU/L} to non-numeric Aminotransfer Heal th [Enzymatic results) ase, Serum System activity/volume] in Serum or Plasma Calcium 9.3 Normal (applies Calcium, [facility] [Mass/volume] in mg/dl to non-numeric Total Serum Health Serum or Plasma results) System A/GRatio 1.19 Normal (applies A/G Ratio [facility] to non-numeric Health results) System Urate 5.2 Normal (applies Uric Acid, [facility] [Mass/volume] in mg/dl to non-numeric Serum Health Serum or Plasma results) System Anion gap in Serum 10.00 Normal (applies Anion Gap [place] m[facility] or Plasma mmol/L to non-numeric Health results) System Glomerular 84.07 Normal (applies GFR [facility] filtration to non-numeric Health rate/1.73 sq results) System M.predicted [Volume Rate/Area] in Serum or Plasma by Creatinine-based formula (CKD-EPI) eGFR will provide clinicians with a more accurate indicator of renal function then the serum creatinine. The eGFR is automa tically calculated from an empiric formula (endorsed by the National Kidney [employer] ion) which incorporates age, sex, and race.Clinicians may notice surprisingly low GFR's with serum creatinine valueswithin normal range- particularly in elderly wo men (with low muscle mass).In the hospital setting, the eGFR should add an element of safety in drug dosing, in assessing the risk of IV contrast administration, and in assessing vascular risk.The NKF staging system is as follows:Normal: eGFR >90 with no kidney markersStage 1: eGFR >90 with kidney markers*Stage 2: eGFR 60- 89Stage 3: eGFR 30-59Stage 4: eGFR 15-29Stage 5: eGFR <15 (usually requir ing dialysis)*Markers include: Proteinuria, Hematuria, abnormal imaging-studies, or other blood or urine test abnormalities ID Date Data Source [id number] 03/17/2020 04:10:48 PM EDT [facility] Name Value Range Interpretation Description Data Sup porting Code Source(s) Document(s ) TroponinIQuantitative 0.01 Normal (applies Troponin I [facility] ng/ml to non-numeric Quantitative Health results) System ID Date Data Source [id number] 03/17/2020 04:10:48 PM EDT [facility] Name Value Range Interpretation Description Data Sup porting Code Source(s) Document(s ) Cortisol 13.5 Normal (applies Cortisol, [facility] [Mass/volume {mcg/dL} to non-numeric Serum Health Syste m ] in Serum results) or Plasma REFERENCE RANGE Cortisol AM 4.0 - 22.0 mcg/dL Cortisol PM 3.0 - 17.0 mcg /dL Test Performed at: [facility], [place] [address] Zach Hough M.D. ID Date Data Source [id number] 03/17/2020 04:10:48 PM EDT [facility] Name Value Range Interpretation Description Data Source(s ) Supporting Code Document(s ) TotalVol 2500.00 Normal (applies to Total Volume [facility] ume(mL) mL non-numeric (mL) Health System results) This test was performed at:[facility] [address] [id number] Pe rformed at:[facility], [address] [place] [id number] Slater M.D., Ph.D. [id number] see noteResults Normal Epinephrine 2 4 Hr [facility] are below the (applies to Urine Health reportable non-numeric System range for results) thisanalyte, which is 2.0 mcg/L. [id number] 26.00 Normal Norepinephrine 2 4 [facility] {mcg/24_h} (applies to Hr Urine Health non-numeric System results) CalculatedTotal(E+NE) 26.00 Normal Calculated Total M [facility] {mcg/24_h} (applies to (E+NE) Health non-numeric System results) [id number] 140.00 Normal Dopamine 24 Hour [facility] {mcg/24_h} (applies to Urine Health non-numeric System results) This test was performed at:[facility] [id number] Pe rformed at:[employer] [facility] [address] [address]Pqmrldpmohit Slater M.D., Ph.D. ID Date Data Source [id number] 03/17/2020 04:10:48 PM EDT [facility] Name Value Range Interpretation Description Data Sup porting Code Source(s) Document(s ) TotalVol 24.00 Normal (applies to Total Volume... [place] mike ume... non-numeric Health System results) Metaneph 127.00 Normal (applies to Metanephrines [facility] rinesUri non-numeric Urine. Health System ne. results) Normetan 290.00 Normal (applies to Normetaneprine, [place] mike eprine,U {mcg24_h} non-numeric Urine Health System rine results) Metaneph 417.00 Normal (applies to Metanephrines, [facility] rines,To non-numeric Total Urine Health System talUrine results) ID Date Data Source [id number] 03/17/2020 04:10:48 PM EDT [facility] Name Value Range Interpretation Description Data Sup porting Code Source(s) Document(s ) Leukocytes 9.5 Normal (applies WBC Count [facility] [#/volume] in {10^3_uL to non-numeric Health Unspecified } results) System specimen by Automated count Erythrocytes 5.20 Normal (applies RBC Count [facility] [#/volume] in {10^6_uL to non-numeric Health Blood by } results) System Automated count Hemoglobin 14.6 Normal (applies Hemoglobin [facility] [Mass/volume] in {gm/dL} to non-numeric Health Blood results) System Hematocrit 44.8 % Normal (applies Hematocrit [facility] [Volume to non-numeric Health Fraction] of results) System Blood Erythrocyte mean 86.2 fl Normal (applies MCV [facility] corpuscular to non-numeric Health volume [Entitic results) System volume] by Automated count Erythrocyte mean 28.1 pg Normal (applies MCH [facility] corpuscular to non-numeric Health hemoglobin results) System [Entitic mass] by Automated count Erythrocyte mean 32.6 Below low normal MCHC [facility] corpuscular {gm/dL} Health hemoglobin System concentration [Mass/volume] by Automated count Erythrocyte 14.8 % Above high normal RDW-CV [facility] distribution Health width [Entitic System volume] by Automated count Platelets 368 Normal (applies Platelet [facility] [#/volume] in {10^3_uL to non-numeric Count Health Plasma by } results) System Automated count Platelet mean 9.8 fl Normal (applies MPV [facility] volume [Entitic to non-numeric Health volume] in Blood results) System by Automated count Monocytes 0.7 Normal (applies Monocyte # [facility] [#/volume] in {10^3_uL to non-numeric Health Blood by Manual } results) System count Eosinophils 0.33 Above high normal Eosinophil # [facility] [#/volume] in {10^3_uL Health Blood } System Neutrophils 5.4 Normal (applies Neutrophil # [facility] [#/volume] in {10^3_uL to non-numeric Health Body fluid } results) System Basophils 0.04 Normal (applies Basophil # [facility] [#/volume] in {10^3_uL to non-numeric Health Blood by } results) System Automated count Lymphocyte 3.0 Normal (applies Lymphocyte # [facility] percent {10^3_uL to non-numeric Health differential } results) System count (procedure) Neutrophils/100 57.1 % Normal (applies Neutrophil % [place] m[place] leukocytes in to non-numeric Health Blood by results) System Automated count Monocytes/100 7.6 % Normal (applies Monocyte % [facility] leukocytes in to non-numeric Health Blood results) System Eosinophils/100 3.5 % Above high normal Eosinophil % [facility] leukocytes in Health Unspecified System specimen Basophils/100 0.4 % Normal (applies Basophil % [facility] leukocytes in to non-numeric Health Unspecified results) System specimen by Manual count Lymphocytes 31.4 % Normal (applies Lymphocyte % [facility] [#/volume] in to non-numeric Health Blood by results) System Automated count ID Date Data Source [id number] 03/17/2020 04:10:48 PM EDT [facility] Name Value Range Interpretation Description Data Sup porting Code Source(s) Document(s ) Sodium 138 mmol/L Normal (applies Sodium, [facility] [Moles/volume] in to non-numeric Serum Health Serum or Plasma results) System Potassium Cancelled Potassium, [facility] [Mass/volume] in specimen Serum Health Serum or Plasma grossly System hemolysed Chloride 103 mmol/L Normal (applies Chloride, [facility] [Moles/volume] in to non-numeric Serum Health Serum or Plasma results) System Carbon dioxide, 20.0 mmol/L Below low CO2, Serum [facility] total normal Health [Moles/volume] in System Serum or Plasma TotalProtein 9.8 mg/dl Above high Total [facility] normal Protein Health System Glucose 93 mg/dL Normal (applies Glucose, [facility] [Mass/volume] in to non-numeric Serum Health Serum or Plasma results) System Urea nitrogen 9 mg/dl Normal (applies Blood Urea [facility] [Mass/volume] in to non-numeric Nitrogen, Health Serum or Plasma results) Serum System Creatinine 0.84 mg/dl Normal (applies Creatinine, [facility] [Mass/volume] in to non-numeric Serum Health Serum or Plasma results) System Alkaline 144 {IU/L} Above high Alkaline [facility] phosphatase normal Phosphatase, Health isoenzymes Serum System [Enzymatic activity/volume] in Serum or Plasma by Heat stability Bilirubin.total 0.4 mg/dl Normal (applies Bilirubin, [facility] [Mass/volume] in to non-numeric Serum Total Health Serum or Plasma results) System DirectBilirubin 0.1 mg/dl Normal (applies Direct [facility] to non-numeric Bilirubin Health results) System Aspartate 60 {IU/L} Above high Aspartate [facility] aminotransferase normal Transaminase Health [Enzymatic , Serum System activity/volume] in Serum or Plasma by With P-5'-P Albumin 4.5 {gm/dl} Normal (applies Albumin, [facility] [Mass/volume] in to non-numeric Serum Health Serum or Plasma results) System I.Phosphorus 5.7 mg/dl Above high I. [facility] normal Phosphorus Health System Alanine 22 {IU/L} Normal (applies Alanine [facility] aminotransferase to non-numeric Aminotransfe Healt h [Enzymatic results) rase, Serum System activity/volume] in Serum or Plasma Calcium 10.3 mg/dl Above high Calcium, [facility] [Mass/volume] in normal Total Serum Health Serum or Plasma System A/GRatio 0.85 Normal (applies A/G Ratio [facility] to non-numeric Health results) System Urate 4.7 mg/dl Normal (applies Uric Acid, [facility] [Mass/volume] in to non-numeric Serum Health Serum or Plasma results) System Anion gap in Serum 15.00 Above high Anion Gap [facility] or Plasma mmol/L normal Health System Glomerular 68.11 Normal (applies GFR [facility] filtration to non-numeric Health rate/1.73 sq results) System M.predicted [Volume Rate/Area] in Serum or Plasma by Creatinine-based formula (CKD-EPI) eGFR will provide clinicians with a more accurate indicator of renal function then the serum creatinine. The eGFR is automa tically calculated from an empiric formula (endorsed by the National Kidney [employer] ion) which incorporates age, sex, and race.Clinicians may notice surprisingly low GFR's with serum creatinine valueswithin normal range- particularly in elderly wo men (with low muscle mass).In the hospital setting, the eGFR should add an element of safety in drug dosing, in assessing the risk of IV contrast administration, and in assessing vascular risk.The NKF staging system is as follows:Normal: eGFR >90 with no kidney markersStage 1: eGFR >90 with kidney markers*Stage 2: eGFR 60- 89Stage 3: eGFR 30-59Stage 4: eGFR 15-29Stage 5: eGFR <15 (usually requir ing dialysis)*Markers include: Proteinuria, Hematuria, abnormal imaging-studies, or other blood or urine test abnormalities ID Date Data Source [id number] 03/17/2020 04:10:48 PM EDT [facility] Name Value Range Interpretation Description Data Sup porting Code Source(s) Document(s ) TroponinIQuantitative 0.00 Normal (applies Troponin I [facility] ng/ml to non-numeric Quantitative Health results) System ID Date Data Source [id number] 03/17/2020 04:10:48 PM EDT [facility] Name Value Range Interpretation Description Data Sup porting Code Source(s) Document(s ) Leukocytes 8.7 Normal (applies WBC Count [facility] [#/volume] in {10^3_uL to non-numeric Health Unspecified } results) System specimen by Automated count Erythrocytes 4.83 Normal (applies RBC Count [facility] [#/volume] in {10^6_uL to non-numeric Health Blood by } results) System Automated count Hemoglobin 13.5 Normal (applies Hemoglobin [facility] [Mass/volume] in {gm/dL} to non-numeric Health Blood results) System Hematocrit 41.5 % Normal (applies Hematocrit [facility] [Volume to non-numeric Health Fraction] of results) System Blood Erythrocyte mean 85.9 fl Normal (applies MCV [facility] corpuscular to non-numeric Health volume [Entitic results) System volume] by Automated count Erythrocyte mean 28.0 pg Normal (applies MCH [facility] corpuscular to non-numeric Health hemoglobin results) System [Entitic mass] by Automated count Erythrocyte mean 32.5 Below low normal MCHC [facility] corpuscular {gm/dL} Health hemoglobin System concentration [Mass/volume] by Automated count Erythrocyte 14.4 % Normal (applies RDW-CV [facility] distribution to non-numeric Health width [Entitic results) System volume] by Automated count Platelets 323 Normal (applies Platelet [facility] [#/volume] in {10^3_uL to non-numeric Count Health Plasma by } results) System Automated count Platelet mean 8.7 fl Normal (applies MPV [facility] volume [Entitic to non-numeric Health volume] in Blood results) System by Automated count Monocytes 0.7 Normal (applies Monocyte # [facility] [#/volume] in {10^3_uL to non-numeric Health Blood by Manual } results) System count Eosinophils 0.36 Above high normal Eosinophil # [facility] [#/volume] in {10^3_uL Health Blood } System Neutrophils 5.1 Normal (applies Neutrophil # [facility] [#/volume] in {10^3_uL to non-numeric Health Body fluid } results) System Basophils 0.05 Normal (applies Basophil # [facility] [#/volume] in {10^3_uL to non-numeric Health Blood by } results) System Automated count Lymphocyte 2.5 Normal (applies Lymphocyte # [facility] percent {10^3_uL to non-numeric Health differential } results) System count (procedure) Neutrophils/100 58.9 % Normal (applies Neutrophil % [place] m[place] leukocytes in to non-numeric Health Blood by results) System Automated count Monocytes/100 7.7 % Normal (applies Monocyte % [facility] leukocytes in to non-numeric Health Blood results) System Eosinophils/100 4.1 % Above high normal Eosinophil % [facility] leukocytes in Health Unspecified System specimen Basophils/100 0.6 % Normal (applies Basophil % [facility] leukocytes in to non-numeric Health Unspecified results) System specimen by Manual count Lymphocytes 28.7 % Normal (applies Lymphocyte % [facility] [#/volume] in to non-numeric Health Blood by results) System Automated count ID Date Data Source [id number] 03/17/2020 04:10:48 PM EDT [facility] Name Value Range Interpretation Description Data Sup porting Code Source(s) Document(s ) Sodium 141 Normal (applies Sodium, Serum [facility] [Moles/volume] in mmol/L to non-numeric Health Serum or Plasma results) System Potassium 4.0 Normal (applies Potassium, [facility] [Mass/volume] in mmol/L to non-numeric Serum Health Serum or Plasma results) System Chloride 109 Above high Chloride, [facility] [Moles/volume] in mmol/L normal Serum Health Serum or Plasma System Carbon dioxide, 22.0 Normal (applies CO2, Serum [facility] total mmol/L to non-numeric Health [Moles/volume] in results) System Serum or Plasma TotalProtein 6.8 Normal (applies Total Protein [facility] mg/dl to non-numeric Health results) System Glucose 102 Normal (applies Glucose, [facility] [Mass/volume] in mg/dL to non-numeric Serum Health Serum or Plasma results) System Urea nitrogen 6 mg/dl Below low normal Blood Urea [facility] [Mass/volume] in Nitrogen, Health Serum or Plasma Serum System Creatinine 0.73 Normal (applies Creatinine, [facility] [Mass/volume] in mg/dl to non-numeric Serum Health Serum or Plasma results) System Alkaline 127 Above high Alkaline [facility] phosphatase {IU/L} normal Phosphatase, Health isoenzymes Serum System [Enzymatic activity/volume] in Serum or Plasma by Heat stability Bilirubin.total 0.4 Normal (applies Bilirubin, [facility] [Mass/volume] in mg/dl to non-numeric Serum Total Health Serum or Plasma results) System DirectBilirubin 0.1 Normal (applies Direct [facility] mg/dl to non-numeric Bilirubin Health results) System Aspartate 17 Normal (applies Aspartate [facility] aminotransferase {IU/L} to non-numeric Transaminase, Heal th [Enzymatic results) Serum System activity/volume] in Serum or Plasma by With P-5'-P Albumin 3.7 Below low normal Albumin, [facility] [Mass/volume] in {gm/dl} Serum Health Serum or Plasma System I.Phosphorus 3.1 Normal (applies I. Phosphorus [facility] mg/dl to non-numeric Health results) System Alanine 15 Normal (applies Alanine [facility] aminotransferase {IU/L} to non-numeric Aminotransfer Heal th [Enzymatic results) ase, Serum System activity/volume] in Serum or Plasma Calcium 9.4 Normal (applies Calcium, [facility] [Mass/volume] in mg/dl to non-numeric Total Serum Health Serum or Plasma results) System A/GRatio 1.19 Normal (applies A/G Ratio [facility] to non-numeric Health results) System Urate 5.5 Normal (applies Uric Acid, [facility] [Mass/volume] in mg/dl to non-numeric Serum Health Serum or Plasma results) System Anion gap in Serum 10.00 Normal (applies Anion Gap [place] mike or Plasma mmol/L to non-numeric Health results) System Glomerular 80.07 Normal (applies GFR [facility] filtration to non-numeric Health rate/1.73 sq results) System M.predicted [Volume Rate/Area] in Serum or Plasma by Creatinine-based formula (CKD-EPI) eGFR will provide clinicians with a more accurate indicator of renal function then the serum creatinine. The eGFR is automa tically calculated from an empiric formula (endorsed by the National Kidney [employer] ion) which incorporates age, sex, and race.Clinicians may notice surprisingly low GFR's with serum creatinine valueswithin normal range- particularly in elderly wo men (with low muscle mass).In the hospital setting, the eGFR should add an element of safety in drug dosing, in assessing the risk of IV contrast administration, and in assessing vascular risk.The NKF staging system is as follows:Normal: eGFR >90 with no kidney markersStage 1: eGFR >90 with kidney markers*Stage 2: eGFR 60- 89Stage 3: eGFR 30-59Stage 4: eGFR 15-29Stage 5: eGFR <15 (usually requir ing dialysis)*Markers include: Proteinuria, Hematuria, abnormal imaging-studies, or other blood or urine test abnormalities ID Date Data Source [id number] 03/17/2020 04:10:48 PM EDT [facility] System Name Value Range Interpretation Description Data Sup porting Code Source(s) Document(s ) TroponinIQuantitative 0.00 Normal (applies Troponin I [facility] ng/ml to non-numeric Quantitative Health results) System ID Date Data Source [id number] 03/17/2020 04:10:48 PM EDT [facility] [place] [facility] System Name Value Range Interpretation Description Data Sup porting Code Source(s) Document(s ) Creatine 67 {IU/L} Normal (applies Creatine [facility] kinase.MB to non-numeric Kinase, Serum Health Syst em [Mass/volume results) ] in Serum or Plasma ID Date Data Source [id number] 03/17/2020 04:10:48 PM EDT [facility] [place] [facility] System Name Value Range Interpretation Description Data Sup porting Code Source(s) Document(s ) TroponinIQuantitative 0.00 Normal (applies Troponin I [facility] ng/ml to non-numeric Quantitative Health results) System ID Date Data Source [id number] 03/17/2020 04:10:48 PM EDT [facility] alth System Name Value Range Interpretation Description Data Sup porting Code Source(s) Document(s ) TroponinIQuantitative 0.00 Normal (applies Troponin I [facility] ng/ml to non-numeric Quantitative Health results) System ID Date Data Source [id number] 03/17/2020 04:10:48 PM EDT [facility] System Name Value Range Interpretation Description Data Sup porting Code Source(s) Document(s ) HepatitisCRati 0.02 {Ratio} Normal (applies Hepatitis C [facility] o to non-numeric Ratio Health results) System HepatitisBSurf DNRTest Normal (applies Hepatitis B [facility] aceAntigenNeut Performed to non-numeric [facility] at:[employer] results) Antigen Neut [facility], [place], [place] Rickie Hough M.D. HepatitisBCore Non Normal (applies Hepatitis B [facility] AntibodyIgM ReactiveReferen to non-numeric [facility] ce Range: Non results) Antibody IgM System Reactive Hepatitis A NonreactiveRefe Normal (applies Hepatitis A [facility] IgM antibody rence Range: to non-numeric IgM Antibody Health test NonreactiveTest results) System (procedure) Performed at:[facility], [place], [place] [address]PsslsrxsElizabeth Hough M.D. HepatitisBSurf Non Normal (applies Hepatitis B [facility] aceAntigen. ReactiveReferen to non-numeric [facility] ce Range: Non results) Antigen. System Reactive HepatitisCVira Non Normal (applies Hepatitis C [facility] lAntibody ReactiveReferen to non-numeric [facility] ce Range: Non results) Antibody System Reactive ID Date Data Source [id number] 03/17/2020 04:10:48 PM EDT [facility] Name Value Range Interpretation Description Data Sup porting Code Source(s) Document(s ) Sodium 139 Normal (applies Sodium, Serum [facility] [Moles/volume] in mmol/L to non-numeric Health Serum or Plasma results) System Potassium 4.7 Normal (applies Potassium, [facility] [Mass/volume] in mmol/L to non-numeric Serum Health Serum or Plasma results) System Chloride 108 Above high Chloride, [facility] [Moles/volume] in mmol/L normal Serum Health Serum or Plasma System Carbon dioxide, 19.0 Below low normal CO2, Serum [facility] total mmol/L Health [Moles/volume] in System Serum or Plasma TotalProtein 7.3 Normal (applies Total Protein [facility] mg/dl to non-numeric Health results) System Glucose 98 Normal (applies Glucose, [facility] [Mass/volume] in mg/dL to non-numeric Serum Health Serum or Plasma results) System Urea nitrogen 10 Normal (applies Blood Urea [facility] [Mass/volume] in mg/dl to non-numeric Nitrogen, Health Serum or Plasma results) Serum System Creatinine 0.80 Normal (applies Creatinine, [facility] [Mass/volume] in mg/dl to non-numeric Serum Health Serum or Plasma results) System Alkaline 135 Above high Alkaline [facility] phosphatase {IU/L} normal Phosphatase, Health isoenzymes Serum System [Enzymatic activity/volume] in Serum or Plasma by Heat stability Bilirubin.total 0.5 Normal (applies Bilirubin, [facility] [Mass/volume] in mg/dl to non-numeric Serum Total Health Serum or Plasma results) System DirectBilirubin 0.2 Normal (applies Direct [facility] mg/dl to non-numeric Bilirubin Health results) System Aspartate 17 Normal (applies Aspartate [facility] aminotransferase {IU/L} to non-numeric Transaminase, Heal th [Enzymatic results) Serum System activity/volume] in Serum or Plasma by With P-5'-P Albumin 4.2 Normal (applies Albumin, [facility] [Mass/volume] in {gm/dl} to non-numeric Serum Health Serum or Plasma results) System I.Phosphorus 3.4 Normal (applies I. Phosphorus [facility] mg/dl to non-numeric Health results) System Alanine 13 Normal (applies Alanine [facility] aminotransferase {IU/L} to non-numeric Aminotransfer Heal th [Enzymatic results) ase, Serum System activity/volume] in Serum or Plasma Calcium 9.7 Normal (applies Calcium, [facility] [Mass/volume] in mg/dl to non-numeric Total Serum Health Serum or Plasma results) System A/GRatio 1.35 Normal (applies A/G Ratio [facility] to non-numeric Health results) System Urate 4.3 Normal (applies Uric Acid, [facility] [Mass/volume] in mg/dl to non-numeric Serum Health Serum or Plasma results) System Anion gap in Serum 12.00 Normal (applies Anion Gap [place] mike or Plasma mmol/L to non-numeric Health results) System Glomerular 72.01 Normal (applies GFR [facility] filtration to non-numeric Health rate/1.73 sq results) System M.predicted [Volume Rate/Area] in Serum or Plasma by Creatinine-based formula (CKD-EPI) eGFR will provide clinicians with a more accurate indicator of renal function then the serum creatinine. The eGFR is automa tically calculated from an empiric formula (endorsed by the National Kid[employer] ion) which incorporates age, sex, and race.Clinicians may notice surprisingly low GFR's with serum creatinine valueswithin normal range- particularly in elderly wo men (with low muscle mass).In the hospital setting, the eGFR should add an element of safety in drug dosing, in assessing the risk of IV contrast administration, and in assessing vascular risk.The NKF staging system is as follows:Normal: eGFR >90 with no kidney markersStage 1: eGFR >90 with kidney markers*Stage 2: eGFR 60- 89Stage 3: eGFR 30-59Stage 4: eGFR 15-29Stage 5: eGFR <15 (usually requir ing dialysis)*Markers include: Proteinuria, Hematuria, abnormal imaging-studies, or other blood or urine test abnormalities ID Date Data Source [id number] 03/17/2020 04:10:48 PM EDT [facility] Name Value Range Interpretation Description Data Sup porting Code Source(s) Document(s ) aPTT in Blood 28.2 Normal (applies Activated [facility] by Coagulation {Seconds to non-numeric Partial Health assay } results) Thromboplastin System Time ID Date Data Source [id number] 03/17/2020 04:10:48 PM EDT [facility] Name Value Range Interpretation Description Data Sup porting Code Source(s) Document(s ) Prothrombintim 10.10 Normal (applies Prothrombin [facility](PT) {seconds to non-numeric time (PT) Health System } results) INR in Blood 1.00 Normal (applies INR Result [facility] {Ratio} to non-numeric Health Sys tem assay results) Normal = 0.7-1.1Therapeutic = 2.0-3.0Mec hanical Heart = 3.0-4.5 ID Date Data Source [id number] 03/17/2020 04:10:48 PM EDT [facility] Name Value Range Interpretation Description Data Sup porting Code Source(s) Document(s ) Leukocytes 12.2 Above high normal WBC Count [facility] [#/volume] in {10^3_uL Health Unspecified } System specimen by Automated count Erythrocytes 5.12 Normal (applies RBC Count [facility] [#/volume] in {10^6_uL to non-numeric Health Blood by } results) System Automated count Hemoglobin 13.6 Normal (applies Hemoglobin [facility] [Mass/volume] in {gm/dL} to non-numeric Health Blood results) System Hematocrit 42.4 % Normal (applies Hematocrit [facility] [Volume to non-numeric Health Fraction] of results) System Blood Erythrocyte mean 82.8 fl Normal (applies MCV [facility] corpuscular to non-numeric Health volume [Entitic results) System volume] by Automated count Erythrocyte mean 26.6 pg Normal (applies MCH [facility] corpuscular to non-numeric Health hemoglobin results) System [Entitic mass] by Automated count Erythrocyte mean 32.1 Below low normal MCHC [facility] corpuscular {gm/dL} Health hemoglobin System concentration [Mass/volume] by Automated count Erythrocyte 14.6 % Above high normal RDW-CV [facility] distribution Health width [Entitic System volume] by Automated count Platelets 371 Normal (applies Platelet [facility] [#/volume] in {10^3_uL to non-numeric Count Health Plasma by } results) System Automated count Platelet mean 9.1 fl Normal (applies MPV [facility] volume [Entitic to non-numeric Health volume] in Blood results) System by Automated count Monocytes 0.7 Normal (applies Monocyte # [facility] [#/volume] in {10^3_uL to non-numeric Health Blood by Manual } results) System count Eosinophils 0.15 Normal (applies Eosinophil # [facility] [#/volume] in {10^3_uL to non-numeric Health Blood } results) System Neutrophils 8.7 Above high normal Neutrophil # [facility] [#/volume] in {10^3_uL Health Body fluid } System Basophils 0.04 Normal (applies Basophil # [facility] [#/volume] in {10^3_uL to non-numeric Health Blood by } results) System Automated count Lymphocyte 2.5 Normal (applies Lymphocyte # [facility] percent {10^3_uL to non-numeric Health differential } results) System count (procedure) Neutrophils/100 71.8 % Normal (applies Neutrophil % [place] mike leukocytes in to non-numeric Health Blood by results) System Automated count Monocytes/100 5.8 % Below low normal Monocyte % [facility] leukocytes in [facility] Blood System Eosinophils/100 1.2 % Normal (applies Eosinophil % [place] mike leukocytes in to non-numeric Health Unspecified results) System specimen Basophils/100 0.3 % Normal (applies Basophil % [facility] leukocytes in to non-numeric [facility] Unspecified results) System specimen by Manual count Lymphocytes 20.9 % Below low normal Lymphocyte % [facility] [#/volume] in Health Blood by System Automated count ID Date Data Source [id number] 03/17/2020 04:10:48 PM EDT [facility] Name Value Range Interpretation Code Description Data Mairana rce(s) Supporting Document(s ) HbA1C 5.5 % Normal (applies to HbA1C [facility] non-numeric results) System ID Date Data Source [id number] 03/17/2020 04:10:48 PM EDT [facility] Name Value Range Interpretation Description Data Source(s ) Supporting Code Document(s ) 25Hydrox 37 ng/mL Normal (applies to 25 Hydroxy [facility] yVitamin non-numeric Vitamin D Health System D results) 25Hydrox 37 ng/mL Normal (applies to 25 Hydroxy D3 [facility] yD3 non-numeric [facility] System results) 25Hydrox < 4 Normal (applies to 25 Hydroxy D2 [facility] yD2 non-numeric [facility] System results) 25-OHD3 indicates both endogenous produc tion andsupplementation. 25-OHD2 is an indicator of exogenoussources such as di et or supplementation. Therapy is based onmeasurement of Total 25-OHD, with leve ls <20 ng/mL indicativeof Vitamin D deficiency, while levels between 20 ng/m L and30 ng/mL suggest insufficiency. Optimal levels are> or = 30 ng/mL.Test Performed at:[facility] [employer], [place], [place] [address]Yzcqpdgvradha vigil M.D. ID Date Data Source [id number] 03/17/2020 04:10:48 PM EDT [facility] Name Value Range Interpretation Description Data Sup porting Code Source(s) Document(s ) Color YELLOW Normal (applies Color [facility] to non-numeric [facility] results) System Appearance of CLEAR Normal (applies Urine [facility] Urine to non-numeric Appearance Health results) System Specific gravity 1.015 Normal (applies Urine Specific [facility] of Urine to non-numeric [facility] results) System pH.. 8.5 Above high pH.. [facility] {pH_units} normal [facility] System Glucose,UA NEGATIVE Normal (applies Glucose, UA [facility] to non-numeric Health results) System Protein NEGATIVE Normal (applies Protein [facility] [Mass/volume] in to non-numeric Health Serum or Plasma results) System BilirubinUrine NEGATIVE Normal (applies Bilirubin [facility] to non-numeric Urine Health results) System Urobilinogen 2.0 mg/dL Normal (applies Urobilinogen [facility] [Mass/volume] in to non-numeric UA Health Urine results) System Ketones NEGATIVE Normal (applies Ketones UA [facility] [Mass/volume] in to non-numeric Health Urine results) System Nitrate+Nitrite NEGATIVE Normal (applies Nitrite [facility] [Mass/volume] in to non-numeric Health Unspecified results) System specimen Leukocyte NEGATIVE Normal (applies Leukocyte [facility] esterase to non-numeric Esterase Health [Units/volume] results) Concentration System in Urine Leukocytes 2 {/HPF} Normal (applies White Blood [facility] [#/volume] in to non-numeric Cells Health Unspecified results) System specimen by Automated count RedBloodCells 1 {/HPF} Normal (applies Red Blood [facility] to non-numeric Cells Health results) System Epithelial cells 5 {/HPF} Normal (applies Epithelial [facility] [Presence] in to non-numeric Cells Health Unspecified results) System specimen by Wet preparation Bacteria 1+ Abnormal Bacteria [facility] [Presence] in (applies to Health Unspecified non-numeric System specimen results) UrineBlood NEGATIVE Normal (applies Urine Blood [facility] to non-numeric Health results) System ID Date Data Source [id number] 03/17/2020 04:10:48 PM EDT [facility] Name Value Range Interpretation Description Data Sup porting Code Source(s) Document(s ) Leukocytes 8.6 Normal (applies WBC Count [facility] [#/volume] in {10^3_uL to non-numeric Health Unspecified } results) System specimen by Automated count Erythrocytes 4.97 Normal (applies RBC Count [facility] [#/volume] in {10^6_uL to non-numeric Health Blood by } results) System Automated count Hemoglobin 12.5 Normal (applies Hemoglobin [facility] [Mass/volume] in {gm/dL} to non-numeric Health Blood results) System Hematocrit 41.2 % Normal (applies Hematocrit [facility] [Volume to non-numeric Health Fraction] of results) System Blood Erythrocyte mean 82.9 fl Below low normal MCV [facility] corpuscular Health volume [Entitic System volume] by Automated count Erythrocyte mean 25.2 pg Below low normal MCH [facility] corpuscular Health hemoglobin System [Entitic mass] by Automated count Erythrocyte mean 30.3 Below low normal MCHC [facility] corpuscular {gm/dL} Health hemoglobin System concentration [Mass/volume] by Automated count Erythrocyte 14.8 % Above high RDW-CV [facility] distribution normal Health width [Entitic System volume] by Automated count Platelets 342 Normal (applies Platelet Count [facility] [#/volume] in {10^3_uL to non-numeric Health Plasma by } results) System Automated count Platelet mean 9.6 fl Normal (applies MPV [facility] volume [Entitic to non-numeric Health volume] in Blood results) System by Automated count Monocytes 0.8 Normal (applies Monocyte # [facility] [#/volume] in {10^3_uL to non-numeric Health Blood by Manual } results) System count Eosinophils 0.71 Above high Eosinophil # [facility] [#/volume] in {10^3_uL normal Health Blood } System Neutrophils 4.2 Normal (applies Neutrophil # [facility] [#/volume] in {10^3_uL to non-numeric Health Body fluid } results) System Basophils 0.06 Normal (applies Basophil # [facility] [#/volume] in {10^3_uL to non-numeric Health Blood by } results) System Automated count Lymphocyte 2.9 Normal (applies Lymphocyte # [facility] percent {10^3_uL to non-numeric Health differential } results) System count (procedure) Neutrophils/100 49.0 % Below low normal Neutrophil % [facility] leukocytes in Health Blood by System Automated count Monocytes/100 8.7 % Normal (applies Monocyte % [facility] leukocytes in to non-numeric Health Blood results) System Eosinophils/100 8.2 % Above high Eosinophil % [facility] leukocytes in normal Health Unspecified System specimen Basophils/100 0.7 % Normal (applies Basophil % [facility] leukocytes in to non-numeric Health Unspecified results) System specimen by Manual count Lymphocytes 33.2 % Normal (applies Lymphocyte % [facility] [#/volume] in to non-numeric Health Blood by results) System Automated count ImmatureGranuloc 0.2 % Normal (applies Immature [facility] ytes% to non-numeric Granulocytes % Health results) System Nucleated 0.0 Normal (applies NRBC % [facility] erythrocytes {/100_WB to non-numeric Health [#/volume] in C} results) System Body fluid ImmatureGranuloc 0.02 Normal (applies Immature [facility] ytes# {10^3_uL to non-numeric Granulocytes # Health } results) System NRBC# 0.00 Normal (applies NRBC # [facility] {10^3_uL to non-numeric Health } results) System ID Date Data Source [id number] 03/17/2020 04:10:48 PM EDT [facility] Name Value Range Interpretation Description Data Sup porting Code Source(s) Document(s ) Thyrotropin 0.580 Normal (applies Thyroid [facility] [Mass/volume] {mIU/mL} to non-numeric Stimulating Health Sy stem in Serum or results) Hormone, Serum Plasma ID Date Data Source [id number] 03/17/2020 04:10:48 PM EDT [facility] Name Value Range Interpretation Description Data Sup porting Code Source(s) Document(s ) Sodium 140 Normal (applies Sodium, Serum [facility] [Moles/volume] in mmol/L to non-numeric Health Serum or Plasma results) System Potassium 4.8 Normal (applies Potassium, [facility] [Mass/volume] in mmol/L to non-numeric Serum Health Serum or Plasma results) System Chloride 108 Above high Chloride, [facility] [Moles/volume] in mmol/L normal Serum Health Serum or Plasma System Carbon dioxide, 24.0 Normal (applies CO2, Serum [facility] total mmol/L to non-numeric Health [Moles/volume] in results) System Serum or Plasma TotalProtein 7.4 Normal (applies Total Protein [facility] mg/dl to non-numeric Health results) System Glucose 97 Normal (applies Glucose, [facility] [Mass/volume] in mg/dL to non-numeric Serum Health Serum or Plasma results) System Urea nitrogen 10 Normal (applies Blood Urea [facility] [Mass/volume] in mg/dl to non-numeric Nitrogen, Health Serum or Plasma results) Serum System Creatinine 0.78 Normal (applies Creatinine, [facility] [Mass/volume] in mg/dl to non-numeric Serum Health Serum or Plasma results) System Alkaline 171 Above high Alkaline [facility] phosphatase {IU/L} normal Phosphatase, Health isoenzymes Serum System [Enzymatic activity/volume] in Serum or Plasma by Heat stability Bilirubin.total 0.6 Normal (applies Bilirubin, [facility] [Mass/volume] in mg/dl to non-numeric Serum Total Health Serum or Plasma results) System DirectBilirubin 0.2 Normal (applies Direct [facility] mg/dl to non-numeric Bilirubin Health results) System Aspartate 17 Normal (applies Aspartate [facility] aminotransferase {IU/L} to non-numeric Transaminase, Heal th [Enzymatic results) Serum System activity/volume] in Serum or Plasma by With P-5'-P Albumin 4.2 Normal (applies Albumin, [facility] [Mass/volume] in {gm/dl} to non-numeric Serum Health Serum or Plasma results) System I.Phosphorus 3.4 Normal (applies I. Phosphorus [facility] mg/dl to non-numeric Health results) System Alanine 11 Normal (applies Alanine [facility] aminotransferase {IU/L} to non-numeric Aminotransfer Heal th [Enzymatic results) ase, Serum System activity/volume] in Serum or Plasma Calcium 9.5 Normal (applies Calcium, [facility] [Mass/volume] in mg/dl to non-numeric Total Serum Health Serum or Plasma results) System A/GRatio 1.31 Normal (applies A/G Ratio [facility] to non-numeric Health results) System Urate 4.2 Normal (applies Uric Acid, [facility] [Mass/volume] in mg/dl to non-numeric Serum Health Serum or Plasma results) System Anion gap in Serum 8.00 Normal (applies Anion Gap [place] mike or Plasma mmol/L to non-numeric Health results) System Glomerular 74.00 Normal (applies GFR [facility] filtration to non-numeric Health rate/1.73 sq results) System M.predicted [Volume Rate/Area] in Serum or Plasma by Creatinine-based formula (CKD-EPI) eGFR will provide clinicians with a more accurate indicator of renal function then the serum creatinine. The eGFR is automa tically calculated from an empiric formula (endorsed by the National Kidney [employer] ion) which incorporates age, sex, and race.Clinicians may notice surprisingly low GFR's with serum creatinine valueswithin normal range- particularly in elderly wo men (with low muscle mass).In the hospital setting, the eGFR should add an element of safety in drug dosing, in assessing the risk of IV contrast administration, and in assessing vascular risk.The NKF staging system is as follows:Normal: eGFR >90 with no kidney markersStage 1: eGFR >90 with kidney markers*Stage 2: eGFR 60- 89Stage 3: eGFR 30-59Stage 4: eGFR 15-29Stage 5: eGFR <15 (usually requir ing dialysis)*Markers include: Proteinuria, Hematuria, abnormal imaging-studies, or other blood or urine test abnormalities ID Date Data Source [id number] 03/17/2020 04:10:48 PM EDT [facility] System Name Value Range Interpretation Description Data Sup porting Code Source(s) Document(s ) Triglyceride 83 mg/dl Normal (applies Triglycerides, [facility] [Mass/volume] to non-numeric Serum Health in Serum or results) System Plasma Optimal = < 100 mg/dLBoderline High = 15 0 - 199 mg/dLHigh = 200 - 499 mg/dLVery High = > 500 mg/dL Cholesterol 184 mg/dl Normal (applies Cholesterol, Serum [facility] [Mass/volume] in to non-numeric Health S ystem Serum or Plasma results) <200 mg/dL = [id number] - 239 md/dL = Borderline>240 mg/dL = High Risk Cholesterol in HDL 64.0 mg/dL Normal (applies HDL Cholestero l, [facility] [Mass/volume] in to non-numeric Serum Health S ystem Serum or Plasma results) Cholesterol in LDL 103.4 mg/dL Normal (applies Low Density [facility] [Mass/volume] in to non-numeric Lipoprotein, Healt h System Serum or Plasma results) Calculated OPTIMAL: LESS THAN 100 mg/dLNEAR OPTIMAL : 100 - 129 mg/dLBODERLINE HIGH: 130 - 150 mg/dL Cholesterol in VLDL 16.6 Normal (applies to VLDL, Serum [facility] [Mass/volume] in Serum non-numeric results) System or Plasma CHDRisk 2.88 Normal (applies to CHD Risk [facility] non-numeric results) System ID Date Data Source [id number] 03/17/2020 04:10:48 PM EDT [facility] Name Value Range Interpretation Code Description Data Mariana rce(s) Supporting Document(s ) HbA1C 5.5 % Normal (applies to HbA1C [facility] non-numeric results) System ID Date Data Source [id number] 03/17/2020 04:10:48 PM EDT [facility] Name Value Range Interpretation Description Data Source(s ) Supporting Code Document(s ) Blood,Oc POSITIVE Normal (applies to Blood, Occult [facility] cultFece non-numeric Feces [facility] System s results) ID Date Data Source [id number] 03/17/2020 04:10:48 PM EDT [facility] Name Value Range Interpretation Description Data Sup porting Code Source(s) Document(s ) Prothrombintim 10.50 Normal (applies Prothrombin [facility](PT) {seconds to non-numeric time (PT) Health System } results) INR in Blood 1.02 Normal (applies INR Result [facility] by Coagulation {Ratio} to non-numeric Health Sys tem assay results) Normal = 0.7-1.1Therapeutic = 2.0-3.0Mec hanical Heart = 3.0-4.5 ID Date Data Source [id number] 03/17/2020 04:10:48 PM EDT [facility] Name Value Range Interpretation Description Data Sup porting Code Source(s) Document(s ) Leukocytes 6.4 Normal (applies WBC Count [facility] [#/volume] in {10^3_uL to non-numeric Health Unspecified } results) System specimen by Automated count Erythrocytes 4.77 Normal (applies RBC Count [facility] [#/volume] in {10^6_uL to non-numeric Health Blood by } results) System Automated count Hemoglobin 11.9 Below low normal Hemoglobin [facility] [Mass/volume] in {gm/dL} Health Blood System Hematocrit 38.6 % Normal (applies Hematocrit [facility] [Volume to non-numeric Health Fraction] of results) System Blood Erythrocyte mean 80.9 fl Below low normal MCV [facility] corpuscular Health volume [Entitic System volume] by Automated count Erythrocyte mean 24.9 pg Below low normal MCH [facility] corpuscular Health hemoglobin System [Entitic mass] by Automated count Erythrocyte mean 30.8 Below low normal [facility] corpuscular {gm/dL} Health hemoglobin System concentration [Mass/volume] by Automated count Erythrocyte 15.9 % Above high RDW-CV [facility] distribution normal Health width [Entitic System volume] by Automated count Platelets 338 Normal (applies Platelet Count [facility] [#/volume] in {10^3_uL to non-numeric Health Plasma by } results) System Automated count Platelet mean 9.1 fl Normal (applies MPV [facility] volume [Entitic to non-numeric Health volume] in Blood results) System by Automated count Monocytes 0.5 Normal (applies Monocyte # [facility] [#/volume] in {10^3_uL to non-numeric Health Blood by Manual } results) System count Eosinophils 0.23 Normal (applies Eosinophil # [facility] [#/volume] in {10^3_uL to non-numeric Health Blood } results) System Neutrophils 3.4 Normal (applies Neutrophil # [facility] [#/volume] in {10^3_uL to non-numeric Health Body fluid } results) System Basophils 0.04 Normal (applies Basophil # [facility] [#/volume] in {10^3_uL to non-numeric Health Blood by } results) System Automated count Lymphocyte 2.3 Normal (applies Lymphocyte # [facility] percent {10^3_uL to non-numeric Health differential } results) System count (procedure) Neutrophils/100 52.2 % Below low normal Neutrophil % [facility]ash [facility] leukocytes in Health Blood by System Automated count Monocytes/100 8.1 % Normal (applies Monocyte % [facility] leukocytes in to non-numeric Health Blood results) System Eosinophils/100 3.6 % Normal (applies Eosinophil % [place] mike leukocytes in to non-numeric Health Unspecified results) System specimen Basophils/100 0.6 % Normal (applies Basophil % [facility] leukocytes in to non-numeric Health Unspecified results) System specimen by Manual count Lymphocytes 35.2 % Normal (applies Lymphocyte % [facility] [#/volume] in to non-numeric Health Blood by results) System Automated count ImmatureGranuloc 0.3 % Normal (applies Immature [facility] ytes% to non-numeric Granulocytes % Health results) System Nucleated 0.0 Normal (applies NRBC % [facility] erythrocytes {/100_WB to non-numeric Health [#/volume] in C} results) System Body fluid ImmatureGranuloc 0.02 Normal (applies Immature [facility] ytes# {10^3_uL to non-numeric Granulocytes # Health } results) System NRBC# 0.00 Below low normal NRBC # [facility] {10^3_uL Health } System ID Date Data Source [id number] 03/17/2020 04:10:48 PM EDT [facility] Name Value Range Interpretation Description Data Sup porting Code Source(s) Document(s ) Sodium 140 Normal (applies Sodium, Serum [facility] [Moles/volume] in mmol/L to non-numeric Health Serum or Plasma results) System Potassium 4.4 Normal (applies Potassium, [facility] [Mass/volume] in mmol/L to non-numeric Serum Health Serum or Plasma results) System Chloride 109 Above high Chloride, [facility] [Moles/volume] in mmol/L normal Serum Health Serum or Plasma System Carbon dioxide, 23.0 Normal (applies CO2, Serum [facility] total mmol/L to non-numeric Health [Moles/volume] in results) System Serum or Plasma TotalProtein 7.4 Normal (applies Total Protein [facility] mg/dl to non-numeric Health results) System Glucose 106 Above high Glucose, [facility] [Mass/volume] in mg/dL normal Serum Health Serum or Plasma System Urea nitrogen 11 Normal (applies Blood Urea [facility] [Mass/volume] in mg/dl to non-numeric Nitrogen, Health Serum or Plasma results) Serum System Creatinine 0.80 Normal (applies Creatinine, [facility] [Mass/volume] in mg/dl to non-numeric Serum Health Serum or Plasma results) System Alkaline 156 Above high Alkaline [facility] phosphatase {IU/L} normal Phosphatase, Health isoenzymes Serum System [Enzymatic activity/volume] in Serum or Plasma by Heat stability Bilirubin.total 0.4 Normal (applies Bilirubin, [facility] [Mass/volume] in mg/dl to non-numeric Serum Total Health Serum or Plasma results) System DirectBilirubin 0.2 Normal (applies Direct [facility] mg/dl to non-numeric Bilirubin Health results) System Aspartate 14 Normal (applies Aspartate [facility] aminotransferase {IU/L} to non-numeric Transaminase, Heal th [Enzymatic results) Serum System activity/volume] in Serum or Plasma by With P-5'-P Albumin 4.0 Normal (applies Albumin, [facility] [Mass/volume] in {gm/dl} to non-numeric Serum Health Serum or Plasma results) System I.Phosphorus 3.5 Normal (applies I. Phosphorus [facility] mg/dl to non-numeric Health results) System Alanine 9 Normal (applies Alanine [facility] aminotransferase {IU/L} to non-numeric Aminotransfer Heal th [Enzymatic results) ase, Serum System activity/volume] in Serum or Plasma Calcium 9.7 Normal (applies Calcium, [facility] [Mass/volume] in mg/dl to non-numeric Total Serum Health Serum or Plasma results) System A/GRatio 1.18 Normal (applies A/G Ratio [facility] to non-numeric Health results) System Urate 4.2 Normal (applies Uric Acid, [facility] [Mass/volume] in mg/dl to non-numeric Serum Health Serum or Plasma results) System Anion gap in Serum 8.00 Normal (applies Anion Gap [place] mike or Plasma mmol/L to non-numeric Health results) System Glomerular 71.78 Normal (applies GFR [facility] filtration to non-numeric Health rate/1.73 sq results) System M.predicted [Volume Rate/Area] in Serum or Plasma by Creatinine-based formula (CKD-EPI) eGFR will provide clinicians with a more accurate indicator of renal function then the serum creatinine. The eGFR is automa tically calculated from an empiric formula (endorsed by the National [employer] ion) which incorporates age, sex, and race.Clinicians may notice surprisingly low GFR's with serum creatinine valueswithin normal range- particularly in elderly wo men (with low muscle mass).In the hospital setting, the eGFR should add an element of safety in drug dosing, in assessing the risk of IV contrast administration, and in assessing vascular risk.The NKF staging system is as follows:Normal: eGFR >90 with no kidney markersStage 1: eGFR >90 with kidney markers*Stage 2: eGFR 60- 89Stage 3: eGFR 30-59Stage 4: eGFR 15-29Stage 5: eGFR <15 (usually requir ing dialysis)*Markers include: Proteinuria, Hematuria, abnormal imaging-studies, or other blood or urine test abnormalities ID Date Data Source [id number] 03/17/2020 04:10:48 PM EDT Tory gerardo System Name Value Range Interpretation Description Data Sup porting Code Source(s) Document(s ) Color YELLOW Normal (applies Color [facility] to non-numeric Health results) System Appearance of CLEAR Normal (applies Urine [facility] Urine to non-numeric Appearance Health results) System Specific gravity 1.010 Normal (applies Urine Specific [place] [facility] of Urine to non-numeric [facility] results) System pH.. 6.0 Normal (applies pH.. [facility] {pH_units} to non-numeric Health results) System Glucose,UA NEGATIVE Normal (applies Glucose, UA [facility] to non-numeric Health results) System Protein NEGATIVE Normal (applies Protein [facility] [Mass/volume] in to non-numeric Health Serum or Plasma results) System BilirubinUrine NEGATIVE Normal (applies Bilirubin [facility] to non-numeric Urine [facility] results) System Urobilinogen 0.2 mg/dL Normal (applies Urobilinogen [facility] [Mass/volume] in to non-numeric UA Health Urine results) System Ketones NEGATIVE Normal (applies Ketones UA [facility] [Mass/volume] in to non-numeric Health Urine results) System Nitrate+Nitrite NEGATIVE Normal (applies Nitrite [facility] [Mass/volume] in to non-numeric Health Unspecified results) System specimen Leukocyte NEGATIVE Normal (applies Leukocyte [facility] esterase to non-numeric Esterase Health [Units/volume] results) Concentration System in Urine Leukocytes 4 {/HPF} Normal (applies White Blood [facility] [#/volume] in to non-numeric Cells Health Unspecified results) System specimen by Automated count RedBloodCells 2 {/HPF} Normal (applies Red Blood [facility] to non-numeric Cells Health results) System Epithelial cells 2 {/HPF} Normal (applies Epithelial [facility] [Presence] in to non-numeric Cells Health Unspecified results) System specimen by Wet preparation Bacteria 0 {/HPF} Abnormal Bacteria [facility] [Presence] in (applies to Health Unspecified non-numeric System specimen results) UrineBlood TRACE-LYSE Abnormal Urine Blood [facility] D (applies to Health non-numeric System results) ID Date Data Source [id number] 03/17/2020 04:10:48 PM EDT [facility] System Name Value Range Interpretation Description Data Sup porting Code Source(s) Document(s ) HepatitisCRati 0.01 {Ratio} Normal (applies Hepatitis C [facility] to non-numeric Ratio Health results) System HepatitisCVira Non Normal (applies Hepatitis C [facility] lAntibody ReactiveReferen to non-numeric Viral [facility] ce Range: Non results) Antibody System ReactiveHCV antibody was non-reactive. There is no laboratoryevide nce of HCV infection.In most cases, no further action is required. However,if recent HCV exposure is suspected, a test for HCV RNA(test code 660045A) is suggested.Test Performed at:[facility], [place], [place] [id number] Hough M.D. ID Date Data Source [id number] 03/17/2020 04:10:48 PM EDT [facility] System Name Value Range Interpretation Description Data Sup porting Code Source(s) Document(s ) Leukocytes 10.5 Normal (applies WBC Count [facility] [#/volume] in {10^3_uL to non-numeric Health Unspecified } results) System specimen by Automated count Erythrocytes 5.41 Above high RBC Count [facility] [#/volume] in {10^6_uL normal Health Blood by } System Automated count Hemoglobin 12.8 Normal (applies Hemoglobin [facility] [Mass/volume] in {gm/dL} to non-numeric Health Blood results) System Hematocrit 41.6 % Normal (applies Hematocrit [facility] [Volume to non-numeric Health Fraction] of results) System Blood Erythrocyte mean 76.9 fl Below low normal MCV [facility] corpuscular Health volume [Entitic System volume] by Automated count Erythrocyte mean 23.7 pg Below low normal MCH [facility] corpuscular Health hemoglobin System [Entitic mass] by Automated count Erythrocyte mean 30.8 Below low normal MCHC [facility] corpuscular {gm/dL} Health hemoglobin System concentration [Mass/volume] by Automated count Erythrocyte 19.9 % Above high RDW-CV [facility] distribution normal Health width [Entitic System volume] by Automated count Platelets 304 Normal (applies Platelet Count [facility] [#/volume] in {10^3_uL to non-numeric Health Plasma by } results) System Automated count Platelet mean 10.6 fl Above high MPV [facility] volume [Entitic normal Health volume] in Blood System by Automated count Monocytes 0.8 Normal (applies Monocyte # [facility] [#/volume] in {10^3_uL to non-numeric Health Blood by Manual } results) System count Eosinophils 0.09 Normal (applies Eosinophil # [facility] [#/volume] in {10^3_uL to non-numeric Health Blood } results) System Neutrophils 7.3 Normal (applies Neutrophil # [facility] [#/volume] in {10^3_uL to non-numeric Health Body fluid } results) System Basophils 0.01 Normal (applies Basophil # [facility] [#/volume] in {10^3_uL to non-numeric Health Blood by } results) System Automated count Lymphocyte 2.3 Normal (applies Lymphocyte # [facility] percent {10^3_uL to non-numeric Health differential } results) System count (procedure) Neutrophils/100 69.3 % Normal (applies Neutrophil % [place] mike leukocytes in to non-numeric Health Blood by results) System Automated count Monocytes/100 7.7 % Normal (applies Monocyte % [facility] leukocytes in to non-numeric [facility] Blood results) System Eosinophils/100 0.9 % Normal (applies Eosinophil % [place] leukocytes in to non-numeric Health Unspecified results) System specimen Basophils/100 0.1 % Normal (applies Basophil % [facility] leukocytes in to non-numeric Health Unspecified results) System specimen by Manual count Lymphocytes 21.3 % Normal (applies Lymphocyte % [facility] [#/volume] in to non-numeric Health Blood by results) System Automated count ImmatureGranuloc 0.7 % Normal (applies Immature [facility] ytes% to non-numeric Granulocytes % Health results) System Nucleated 0.0 Normal (applies NRBC % [facility] erythrocytes {/100_WB to non-numeric Health [#/volume] in C} results) System Body fluid ImmatureGranuloc 0.07 Normal (applies Immature [facility] ytes# {10^3_uL to non-numeric Granulocytes # Health } results) System NRBC# 0.00 Below low normal NRBC # [facility] {10^3_uL Health } System ID Date Data Source [id number] 03/17/2020 04:10:48 PM EDT [facility] Name Value Range Interpretation Description Data Source(s ) Supporting Code Document(s ) Lipase 20 U/L Normal (applies to Lipase, Serum [facility] [Enzymatic non-numeric Health System activity/vo results) lume] in Serum or Plasma ID Date Data Source [id number] 03/17/2020 04:10:48 PM EDT [facility] Name Value Range Interpretation Description Data Sup porting Code Source(s) Document(s ) Sodium 141 Normal (applies Sodium, Serum [facility] [Moles/volume] in mmol/L to non-numeric Health Serum or Plasma results) System Potassium 3.2 Below low normal Potassium, [facility] [Mass/volume] in mmol/L Serum Health Serum or Plasma System Chloride 108 Above high Chloride, [facility] [Moles/volume] in mmol/L normal Serum Health Serum or Plasma System Carbon dioxide, 14.0 Below low normal CO2, Serum [facility] total mmol/L Health [Moles/volume] in System Serum or Plasma TotalProtein 7.3 Normal (applies Total Protein [facility] mg/dl to non-numeric Health results) System Glucose 120 Above high Glucose, [facility] [Mass/volume] in mg/dL normal Serum Health Serum or Plasma System Urea nitrogen 8 mg/dl Normal (applies Blood Urea [facility] [Mass/volume] in to non-numeric Nitrogen, Health Serum or Plasma results) Serum System Creatinine 0.60 Below low normal Creatinine, [facility] [Mass/volume] in mg/dl Serum Health Serum or Plasma System Alkaline 123 Normal (applies Alkaline [facility] phosphatase {IU/L} to non-numeric Phosphatase, [facility] isoenzymes results) Serum System [Enzymatic activity/volume] in Serum or Plasma by Heat stability Bilirubin.total 1.2 Normal (applies Bilirubin, [facility] [Mass/volume] in mg/dl to non-numeric Serum Total Health Serum or Plasma results) System DirectBilirubin 0.6 Above high Direct [facility] mg/dl normal Bilirubin Health System Aspartate 18 Normal (applies Aspartate [facility] aminotransferase {IU/L} to non-numeric Transaminase, Heal th [Enzymatic results) Serum System activity/volume] in Serum or Plasma by With P-5'-P Albumin 3.9 Normal (applies Albumin, [facility] [Mass/volume] in {gm/dl} to non-numeric Serum Health Serum or Plasma results) System I.Phosphorus 1.9 Below low normal I. Phosphorus [facility] mg/dl [facility] System Alanine 17 Normal (applies Alanine [facility] aminotransferase {IU/L} to non-numeric Aminotransfer Heal th [Enzymatic results) ase, Serum System activity/volume] in Serum or Plasma Calcium 8.8 Normal (applies Calcium, [facility] [Mass/volume] in mg/dl to non-numeric Total Serum Health Serum or Plasma results) System A/GRatio 1.15 Normal (applies A/G Ratio [facility] to non-numeric Health results) System Urate 3.8 Normal (applies Uric Acid, [facility] [Mass/volume] in mg/dl to non-numeric Serum Health Serum or Plasma results) System Anion gap in Serum 19.00 Above high Anion Gap [facility] or Plasma mmol/L normal Health System Glomerular > 90 Normal (applies GFR [facility] filtration to non-numeric Health rate/1.73 sq results) System M.predicted [Volume Rate/Area] in Serum or Plasma by Creatinine-based formula (CKD-EPI) eGFR will provide clinicians with a more accurate indicator of renal function then the serum creatinine. The eGFR is automa tically calculated from an empiric formula (endorsed by the National Kid[employer] ion) which incorporates age, sex, and race.Clinicians may notice surprisingly low GFR's with serum creatinine valueswithin normal range- particularly in elderly wo men (with low muscle mass).In the hospital setting, the eGFR should add an element of safety in drug dosing, in assessing the risk of IV contrast administration, and in assessing vascular risk.The NKF staging system is as follows:Normal: eGFR >90 with no kidney markersStage 1: eGFR >90 with kidney markers*Stage 2: eGFR 60- 89Stage 3: eGFR 30-59Stage 4: eGFR 15-29Stage 5: eGFR <15 (usually requir ing dialysis)*Markers include: Proteinuria, Hematuria, abnormal imaging-studies, or other blood or urine test abnormalities ID Date Data Source [id number] 03/17/2020 04:10:48 PM EDT Tory Hidalgo [facility] System Name Value Range Interpretation Description Data Source(s ) Supporting Code Document(s ) Troponin 0.03 Normal (applies to Troponin I [facility] IQuantit ng/mL non-numeric Quantitative - Health System ative-MV results) MV Only Only ID Date Data Source [id number] 03/17/2020 04:10:48 PM EDT [facility] System Name Value Range Interpretation Description Data Sup porting Code Source(s) Document(s ) Prothrombintim 16.40 Above high normal Prothrombin [place] mike e(PT) {seconds time (PT) Health System } INR in Blood 1.57 Above high normal INR Result [facility] by Coagulation {Ratio} Health System assay Normal = 0.7-1.1Therapeutic = 2.0-3.0Mec hanical Heart = 3.0-4.5 ID Date Data Source [id number] 03/17/2020 04:10:48 PM EDT [facility] Name Value Range Interpretation Description Data Sup porting Code Source(s) Document(s ) 36571-7 NEGATIVE Testing Normal (applies COVID-19.. [facility] was performed to non-numeric Health Syst em using Chavez ID results) NOW COVID-19, an isothermal nucleic acid amplification technology for the qualitative detection of nucleic acid from the SARS-CoV-2 viral RNA in respiratory specimens. The ID NOW COVID-19 test has been approved by the Food and Drug Administration (FDA) under an Emergency Use Authorization for use by authorized laboratories. Reference Range: NEGATIVE . ID Date Data Source [id number] 03/17/2020 04:10:48 PM EDT [facility] Name Value Range Interpretation Description Data Sup porting Code Source(s) Document(s ) Leukocytes 10.9 Above high WBC Count [facility] [#/volume] in {10^3_uL normal Health Unspecified } System specimen by Automated count Erythrocytes 5.07 Normal (applies RBC Count [facility] [#/volume] in {10^6_uL to non-numeric Health Blood by } results) System Automated count Hemoglobin 12.0 Normal (applies Hemoglobin [facility] [Mass/volume] in {gm/dL} to non-numeric Health Blood results) System Hematocrit 40.1 % Normal (applies Hematocrit [facility] [Volume to non-numeric Health Fraction] of results) System Blood Erythrocyte mean 79.1 fl Below low normal MCV [facility] corpuscular Health volume [Entitic System volume] by Automated count Erythrocyte mean 23.7 pg Below low normal MCH [facility] corpuscular Health hemoglobin System [Entitic mass] by Automated count Erythrocyte mean 29.9 Below low normal MCHC [facility] corpuscular {gm/dL} Health hemoglobin System concentration [Mass/volume] by Automated count Erythrocyte 19.3 % Above high RDW-CV [facility] distribution normal Health width [Entitic System volume] by Automated count Platelets 351 Normal (applies Platelet Count [facility] [#/volume] in {10^3_uL to non-numeric Health Plasma by } results) System Automated count Platelet mean 10.1 fl Normal (applies MPV [facility] volume [Entitic to non-numeric Health volume] in Blood results) System by Automated count Monocytes 1.0 Above high Monocyte # [facility] [#/volume] in {10^3_uL normal Health Blood by Manual } System count Eosinophils 0.19 Normal (applies Eosinophil # [facility] [#/volume] in {10^3_uL to non-numeric Health Blood } results) System Neutrophils 7.4 Normal (applies Neutrophil # [facility] [#/volume] in {10^3_uL to non-numeric Health Body fluid } results) System Basophils 0.00 Normal (applies Basophil # [facility] [#/volume] in {10^3_uL to non-numeric Health Blood by } results) System Automated count Lymphocyte 2.3 Normal (applies Lymphocyte # [facility] percent {10^3_uL to non-numeric Health differential } results) System count (procedure) Neutrophils/100 67.7 % Normal (applies Neutrophil % [place] m[place] leukocytes in to non-numeric Health Blood by results) System Automated count Monocytes/100 9.3 % Above high Monocyte % [facility] leukocytes in normal Health Blood System Eosinophils/100 1.7 % Normal (applies Eosinophil % [place] leukocytes in to non-numeric Health Unspecified results) System specimen Basophils/100 0.0 % Normal (applies Basophil % [facility] leukocytes in to non-numeric Health Unspecified results) System specimen by Manual count Lymphocytes 20.7 % Below low normal Lymphocyte % [facility] [#/volume] in Health Blood by System Automated count ImmatureGranuloc 0.6 % Normal (applies Immature [facility] ytes% to non-numeric Granulocytes % Health results) System Nucleated 0.0 Normal (applies NRBC % [facility] erythrocytes {/100_WB to non-numeric Health [#/volume] in C} results) System Body fluid ImmatureGranuloc 0.07 Normal (applies Immature [facility] ytes# {10^3_uL to non-numeric Granulocytes # Health } results) System NRBC# 0.00 Below low normal NRBC # [facility] {10^3_uL Health } System ID Date Data Source [id number] 03/17/2020 04:10:48 PM EDT [facility] Name Value Range Interpretation Description Data Sup porting Code Source(s) Document(s ) Sodium 136 Below low normal Sodium, Serum [facility] [Moles/volume] in mmol/L Health Serum or Plasma System Potassium 4.2 Normal (applies Potassium, [facility] [Mass/volume] in mmol/L to non-numeric Serum Health Serum or Plasma results) System Chloride 106 Normal (applies Chloride, [facility] [Moles/volume] in mmol/L to non-numeric Serum Health Serum or Plasma results) System Carbon dioxide, 20.0 Below low normal CO2, Serum [facility] total mmol/L [facility] [Moles/volume] in System Serum or Plasma TotalProtein 6.4 Normal (applies Total Protein [facility] mg/dl to non-numeric Health results) System Glucose 154 Above high Glucose, [facility] [Mass/volume] in mg/dL normal Serum Health Serum or Plasma System Urea nitrogen 4 mg/dl Below low normal Blood Urea [facility] [Mass/volume] in Nitrogen, Health Serum or Plasma Serum System Creatinine 0.60 Below low normal Creatinine, [facility] [Mass/volume] in mg/dl Serum Health Serum or Plasma System Alkaline 112 Normal (applies Alkaline [facility] phosphatase {IU/L} to non-numeric Phosphatase, Health isoenzymes results) Serum System [Enzymatic activity/volume] in Serum or Plasma by Heat stability Bilirubin.total 1.0 Normal (applies Bilirubin, [facility] [Mass/volume] in mg/dl to non-numeric Serum Total Health Serum or Plasma results) System DirectBilirubin 0.6 Above high Direct [facility] mg/dl normal Bilirubin Health System Aspartate 16 Normal (applies Aspartate [facility] aminotransferase {IU/L} to non-numeric Transaminase, Heal th [Enzymatic results) Serum System activity/volume] in Serum or Plasma by With P-5'-P Albumin 3.6 Below low normal Albumin, [facility] [Mass/volume] in {gm/dl} Serum Health Serum or Plasma System I.Phosphorus 2.9 Normal (applies I. Phosphorus [facility] mg/dl to non-numeric Health results) System Alanine 15 Normal (applies Alanine [facility] aminotransferase {IU/L} to non-numeric Aminotransfer Heal th [Enzymatic results) ase, Serum System activity/volume] in Serum or Plasma Calcium 8.3 Below low normal Calcium, [facility] [Mass/volume] in mg/dl Total Serum Health Serum or Plasma System A/GRatio 1.29 Normal (applies A/G Ratio [facility] to non-numeric Health results) System Urate 3.4 Normal (applies Uric Acid, [facility] [Mass/volume] in mg/dl to non-numeric Serum Health Serum or Plasma results) System Anion gap in Serum 10.00 Normal (applies Anion Gap [place] m[place] or Plasma mmol/L to non-numeric Health results) System Glomerular > 90 Normal (applies GFR [facility] filtration to non-numeric Health rate/1.73 sq results) System M.predicted [Volume Rate/Area] in Serum or Plasma by Creatinine-based formula (CKD-EPI) eGFR will provide clinicians with a more accurate indicator of renal function then the serum creatinine. The eGFR is automa tically calculated from an empiric formula (endorsed by the National Kid[employer] ion) which incorporates age, sex, and race.Clinicians may notice surprisingly low GFR's with serum creatinine valueswithin normal range- particularly in elderly wo men (with low muscle mass).In the hospital setting, the eGFR should add an element of safety in drug dosing, in assessing the risk of IV contrast administration, and in assessing vascular risk.The NKF staging system is as follows:Normal: eGFR >90 with no kidney markersStage 1: eGFR >90 with kidney markers*Stage 2: eGFR 60- 89Stage 3: eGFR 30-59Stage 4: eGFR 15-29Stage 5: eGFR <15 (usually requir ing dialysis)*Markers include: Proteinuria, Hematuria, abnormal imaging-studies, or other blood or urine test abnormalities ID Date Data Source [id number] 03/17/2020 04:10:48 PM EDT Tory gerardo System Name Value Range Interpretation Code Description Data Mariana rce(s) Supporting Document(s ) [id number] 124.96 Normal (applies to [id number] [facility] non-numeric results) Health Sy stem tHbWB 3292.41 Normal (applies to tHbWB [facility] non-numeric results) Health Sy stem %HbA1C 5.62 % Normal (applies to %HbA1C [facility] non-numeric results) Health Sy stem ID Date Data Source [id number] 03/17/2020 04:10:48 PM EDT [facility] Name Value Range Interpretation Description Data Sup porting Code Source(s) Document(s ) Leukocytes 10.8 Above high WBC Count [facility] [#/volume] in {10^3_uL normal Health Unspecified } System specimen by Automated count Erythrocytes 5.07 Normal (applies RBC Count [facility] [#/volume] in {10^6_uL to non-numeric Health Blood by } results) System Automated count Hemoglobin 12.2 Normal (applies Hemoglobin [facility] [Mass/volume] in {gm/dL} to non-numeric Health Blood results) System Hematocrit 39.8 % Normal (applies Hematocrit [facility] [Volume to non-numeric Health Fraction] of results) System Blood Erythrocyte mean 78.5 fl Below low normal MCV [facility] corpuscular Health volume [Entitic System volume] by Automated count Erythrocyte mean 24.1 pg Below low normal MCH [facility] corpuscular Health hemoglobin System [Entitic mass] by Automated count Erythrocyte mean 30.7 Below low normal MCHC [facility] corpuscular {gm/dL} Health hemoglobin System concentration [Mass/volume] by Automated count Erythrocyte 19.6 % Above high RDW-CV [facility] distribution normal Health width [Entitic System volume] by Automated count Platelets 354 Normal (applies Platelet Count [facility] [#/volume] in {10^3_uL to non-numeric Health Plasma by } results) System Automated count Platelet mean 10.7 fl Above high MPV [facility] volume [Entitic normal Health volume] in Blood System by Automated count Monocytes 0.9 Normal (applies Monocyte # [facility] [#/volume] in {10^3_uL to non-numeric Health Blood by Manual } results) System count Eosinophils 0.26 Normal (applies Eosinophil # [facility] [#/volume] in {10^3_uL to non-numeric Health Blood } results) System Neutrophils 7.2 Normal (applies Neutrophil # [facility] [#/volume] in {10^3_uL to non-numeric Health Body fluid } results) System Basophils 0.01 Normal (applies Basophil # [facility] [#/volume] in {10^3_uL to non-numeric Health Blood by } results) System Automated count Lymphocyte 2.4 Normal (applies Lymphocyte # [facility] percent {10^3_uL to non-numeric Health differential } results) System count (procedure) Neutrophils/100 66.6 % Normal (applies Neutrophil % [place] m[place] leukocytes in to non-numeric Health Blood by results) System Automated count Monocytes/100 8.3 % Normal (applies Monocyte % [facility] leukocytes in to non-numeric Health Blood results) System Eosinophils/100 2.4 % Normal (applies Eosinophil % [place] m[place] leukocytes in to non-numeric Health Unspecified results) System specimen Basophils/100 0.1 % Normal (applies Basophil % [facility] leukocytes in to non-numeric Health Unspecified results) System specimen by Manual count Lymphocytes 22.0 % Normal (applies Lymphocyte % [facility] [#/volume] in to non-numeric Health Blood by results) System Automated count ImmatureGranuloc 0.6 % Normal (applies Immature [facility] ytes% to non-numeric Granulocytes % Health results) System Nucleated 0.0 Normal (applies NRBC % [facility] erythrocytes {/100_WB to non-numeric Health [#/volume] in C} results) System Body fluid ImmatureGranuloc 0.07 Normal (applies Immature [facility] ytes# {10^3_uL to non-numeric Granulocytes # Health } results) System NRBC# 0.00 Below low normal NRBC # [facility] {10^3_uL Health } System ID Date Data Source [id number] 03/17/2020 04:10:48 PM EDT [facility] gerardo System Name Value Range Interpretation Description Data Sup porting Code Source(s) Document(s ) Sodium 139 Normal (applies Sodium, Serum [facility] [Moles/volume] in mmol/L to non-numeric Health Serum or Plasma results) System Potassium 3.8 Normal (applies Potassium, [facility] [Mass/volume] in mmol/L to non-numeric Serum Health Serum or Plasma results) System Chloride 106 Normal (applies Chloride, [facility] [Moles/volume] in mmol/L to non-numeric Serum Health Serum or Plasma results) System Carbon dioxide, 17.0 Below low normal CO2, Serum [facility] total mmol/L [facility] [Moles/volume] in System Serum or Plasma TotalProtein 6.5 Normal (applies Total Protein [facility] mg/dl to non-numeric Health results) System Glucose 87 Normal (applies Glucose, [facility] [Mass/volume] in mg/dL to non-numeric Serum Health Serum or Plasma results) System Urea nitrogen 3 mg/dl Below low normal Blood Urea [facility] [Mass/volume] in Nitrogen, Health Serum or Plasma Serum System Creatinine 0.70 Normal (applies Creatinine, [facility] [Mass/volume] in mg/dl to non-numeric Serum Health Serum or Plasma results) System Alkaline 114 Normal (applies Alkaline [facility] phosphatase {IU/L} to non-numeric Phosphatase, Health isoenzymes results) Serum System [Enzymatic activity/volume] in Serum or Plasma by Heat stability Bilirubin.total 1.4 Above high Bilirubin, [facility] [Mass/volume] in mg/dl normal Serum Total Health Serum or Plasma System DirectBilirubin 0.8 Above high Direct [facility] mg/dl normal Bilirubin [facility] Aspartate 13 Normal (applies Aspartate [facility] aminotransferase {IU/L} to non-numeric Transaminase, [facility] [Enzymatic results) Serum System activity/volume] in Serum or Plasma by With P-5'-P Albumin 3.7 Below low normal Albumin, [facility] [Mass/volume] in {gm/dl} Serum Health Serum or Plasma System I.Phosphorus 1.9 Below low normal I. Phosphorus [facility] mg/dl [facility] Alanine 19 Normal (applies Alanine [facility] aminotransferase {IU/L} to non-numeric Aminotransfer [facility] [Enzymatic results) ase, Serum System activity/volume] in Serum or Plasma Calcium 9.0 Normal (applies Calcium, [facility] [Mass/volume] in mg/dl to non-numeric Total Serum Health Serum or Plasma results) System A/GRatio 1.32 Normal (applies A/G Ratio [facility] to non-numeric Health results) System Urate 3.5 Normal (applies Uric Acid, [facility] [Mass/volume] in mg/dl to non-numeric Serum Health Serum or Plasma results) System Anion gap in Serum 16.00 Above high Anion Gap [facility] or Plasma mmol/L normal Health System Glomerular 82.98 Normal (applies GFR [facility] filtration to non-numeric Health rate/1.73 sq results) System M.predicted [Volume Rate/Area] in Serum or Plasma by Creatinine-based formula (CKD-EPI) eGFR will provide clinicians with a more accurate indicator of renal function then the serum creatinine. The eGFR is automa tically calculated from an empiric formula (endorsed by the [employer]) which incorporates age, sex, and race.Clinicians may notice surprisingly low GFR's with serum creatinine valueswithin normal range- particularly in elderly wo men (with low muscle mass).In the hospital setting, the eGFR should add an element of safety in drug dosing, in assessing the risk of IV contrast administration, and in assessing vascular risk.The NKF staging system is as follows:Normal: eGFR >90 with no kidney markersStage 1: eGFR >90 with kidney markers*Stage 2: eGFR 60- 89Stage 3: eGFR 30-59Stage 4: eGFR 15-29Stage 5: eGFR <15 (usually requir ing dialysis)*Markers include: Proteinuria, Hematuria, abnormal imaging-studies, or other blood or urine test abnormalities ID Date Data Source [id number] 03/17/2020 04:10:48 PM EDT [facility] Name Value Range Interpretation Description Data Sup porting Code Source(s) Document(s ) Leukocytes 10.3 Normal (applies WBC Count [facility] [#/volume] in {10^3_uL to non-numeric Health Unspecified } results) System specimen by Automated count Erythrocytes 4.71 Normal (applies RBC Count [facility] [#/volume] in {10^6_uL to non-numeric Health Blood by } results) System Automated count Hemoglobin 11.1 Below low normal Hemoglobin [facility] [Mass/volume] in {gm/dL} Health Blood System Hematocrit 37.9 % Normal (applies Hematocrit [facility] [Volume to non-numeric Health Fraction] of results) System Blood Erythrocyte mean 80.5 fl Below low normal MCV [facility] corpuscular Health volume [Entitic System volume] by Automated count Erythrocyte mean 23.6 pg Below low normal MCH [facility] corpuscular Health hemoglobin System [Entitic mass] by Automated count Erythrocyte mean 29.3 Below low normal MCHC [facility] corpuscular {gm/dL} Health hemoglobin System concentration [Mass/volume] by Automated count Erythrocyte 19.9 % Above high RDW-CV [facility] distribution normal Health width [Entitic System volume] by Automated count Platelets 360 Normal (applies Platelet Count [facility] [#/volume] in {10^3_uL to non-numeric Health Plasma by } results) System Automated count Platelet mean 10.2 fl Normal (applies MPV [facility] volume [Entitic to non-numeric Health volume] in Blood results) System by Automated count Monocytes 1.0 Above high Monocyte # [facility] [#/volume] in {10^3_uL normal Health Blood by Manual } System count Eosinophils 0.47 Above high Eosinophil # [facility] [#/volume] in {10^3_uL normal Health Blood } System Neutrophils 6.2 Normal (applies Neutrophil # [facility] [#/volume] in {10^3_uL to non-numeric Health Body fluid } results) System Basophils 0.01 Normal (applies Basophil # [facility] [#/volume] in {10^3_uL to non-numeric Health Blood by } results) System Automated count Lymphocyte 2.6 Normal (applies Lymphocyte # [facility] percent {10^3_uL to non-numeric Health differential } results) System count (procedure) Neutrophils/100 60.2 % Normal (applies Neutrophil % [place] leukocytes in to non-numeric Health Blood by results) System Automated count Monocytes/100 9.5 % Above high Monocyte % [facility] leukocytes in normal Health Blood System Eosinophils/100 4.6 % Above high Eosinophil % [facility] leukocytes in normal Health Unspecified System specimen Basophils/100 0.1 % Normal (applies Basophil % [facility] leukocytes in to non-numeric Health Unspecified results) System specimen by Manual count Lymphocytes 24.8 % Normal (applies Lymphocyte % [facility] [#/volume] in to non-numeric Health Blood by results) System Automated count ImmatureGranuloc 0.8 % Normal (applies Immature [facility] ytes% to non-numeric Granulocytes % Health results) System Nucleated 0.0 Normal (applies NRBC % [facility] erythrocytes {/100_WB to non-numeric Health [#/volume] in C} results) System Body fluid ImmatureGranuloc 0.08 Normal (applies Immature [facility] ytes# {10^3_uL to non-numeric Granulocytes # Health } results) System NRBC# 0.00 Below low normal NRBC # [facility] {10^3_uL Health } System ID Date Data Source [id number] 03/17/2020 04:10:48 PM EDT [facility] Name Value Range Interpretation Description Data Sup porting Code Source(s) Document(s ) Sodium 140 Normal (applies Sodium, Serum [facility] [Moles/volume] in mmol/L to non-numeric Health Serum or Plasma results) System Potassium 3.9 Normal (applies Potassium, [facility] [Mass/volume] in mmol/L to non-numeric Serum Health Serum or Plasma results) System Chloride 110 Above high Chloride, [facility] [Moles/volume] in mmol/L normal Serum Health Serum or Plasma System Carbon dioxide, 20.0 Below low normal CO2, Serum [facility] total mmol/L Health [Moles/volume] in System Serum or Plasma TotalProtein 5.6 Below low normal Total Protein [facility] mg/dl [facility] Glucose 98 Normal (applies Glucose, [facility] [Mass/volume] in mg/dL to non-numeric Serum Health Serum or Plasma results) System Urea nitrogen 6 mg/dl Below low normal Blood Urea [facility] [Mass/volume] in Nitrogen, Health Serum or Plasma Serum System Creatinine 0.60 Below low normal Creatinine, [facility] [Mass/volume] in mg/dl Serum Health Serum or Plasma System Alkaline 104 Normal (applies Alkaline [facility] phosphatase {IU/L} to non-numeric Phosphatase, [facility] isoenzymes results) Serum System [Enzymatic activity/volume] in Serum or Plasma by Heat stability Bilirubin.total 0.8 Normal (applies Bilirubin, [facility] [Mass/volume] in mg/dl to non-numeric Serum Total Health Serum or Plasma results) System DirectBilirubin 0.5 Above high Direct [facility] mg/dl normal Bilirubin [facility] System Aspartate 12 Normal (applies Aspartate [facility] aminotransferase {IU/L} to non-numeric Transaminase, [facility] [Enzymatic results) Serum System activity/volume] in Serum or Plasma by With P-5'-P Albumin 3.3 Below low normal Albumin, [facility] [Mass/volume] in {gm/dl} Serum Health Serum or Plasma System I.Phosphorus 4.8 Above high I. Phosphorus [facility] mg/dl normal Health System Alanine 18 Normal (applies Alanine [facility] aminotransferase {IU/L} to non-numeric Aminotransfer [facility] [Enzymatic results) ase, Serum System activity/volume] in Serum or Plasma Calcium 8.5 Normal (applies Calcium, [facility] [Mass/volume] in mg/dl to non-numeric Total Serum Health Serum or Plasma results) System A/GRatio 1.43 Normal (applies A/G Ratio [facility] to non-numeric Health results) System Urate 2.8 Normal (applies Uric Acid, [facility] [Mass/volume] in mg/dl to non-numeric Serum Health Serum or Plasma results) System Anion gap in Serum 10.00 Normal (applies Anion Gap [place] or Plasma mmol/L to non-numeric Health results) System Glomerular > 90 Normal (applies GFR [facility] filtration to non-numeric Health rate/1.73 sq results) System M.predicted [Volume Rate/Area] in Serum or Plasma by Creatinine-based formula (CKD-EPI) eGFR will provide clinicians with a more accurate indicator of renal function then the serum creatinine. The eGFR is automa tically calculated from an empiric formula (endorsed by the [employer]) which incorporates age, sex, and race.Clinicians may notice surprisingly low GFR's with serum creatinine valueswithin normal range- particularly in elderly wo men (with low muscle mass).In the hospital setting, the eGFR should add an element of safety in drug dosing, in assessing the risk of IV contrast administration, and in assessing vascular risk.The NKF staging system is as follows:Normal: eGFR >90 with no kidney markersStage 1: eGFR >90 with kidney markers*Stage 2: eGFR 60- 89Stage 3: eGFR 30-59Stage 4: eGFR 15-29Stage 5: eGFR <15 (usually requir ing dialysis)*Markers include: Proteinuria, Hematuria, abnormal imaging-studies, or other blood or urine test abnormalities ID Date Data Source [id number] 03/17/2020 04:10:48 PM EDT [facility] System Name Value Range Interpretation Description Data Sup porting Code Source(s) Document(s ) 42305-2 NEGATIVE Testing Normal (applies COVID-19.. [facility] was performed to non-numeric Health Syst em using [facility] ID results) NOW COVID-19, an isothermal nucleic acid amplification technology for the qualitative detection of nucleic acid from the SARS-CoV-2 viral RNA in respiratory specimens. The ID NOW COVID-19 test has been approved by the Food and Drug Administration (FDA) under an Emergency Use Authorization for use by authorized laboratories. Reference Range: NEGATIVE . ID Date Data Source [id number] 03/17/2020 04:10:48 PM EDT [facility] Name Value Range Interpretation Description Data Sup porting Code Source(s) Document(s ) Type O Normal (applies Type [facility] to non-numeric Health results) System D Ab [Titer] in Positive Normal (applies Rh [facility] Serum or Plasma to non-numeric Health results) System AntibodyScreen Negative Normal (applies Antibody [facility] to non-numeric Screen Health results) System ID Date Data Source [id number] 03/17/2020 04:10:48 PM EDT [facility] Name Value Range Interpretation Description Data Sup porting Code Source(s) Document(s ) Sodium 139 Normal (applies Sodium, Serum [facility] [Moles/volume] in mmol/L to non-numeric Health Serum or Plasma results) System Potassium 3.5 Below low normal Potassium, [facility] [Mass/volume] in mmol/L Serum Health Serum or Plasma System Chloride 109 Above high Chloride, [facility] [Moles/volume] in mmol/L normal Serum Health Serum or Plasma System Carbon dioxide, 18.0 Below low normal CO2, Serum [facility] total mmol/L Health [Moles/volume] in System Serum or Plasma TotalProtein 5.9 Below low normal Total Protein [facility] mg/dl [facility] System Glucose 109 Above high Glucose, [facility] [Mass/volume] in mg/dL normal Serum Health Serum or Plasma System Urea nitrogen 5 mg/dl Below low normal Blood Urea [facility] [Mass/volume] in Nitrogen, Health Serum or Plasma Serum System Creatinine 0.60 Below low normal Creatinine, [facility] [Mass/volume] in mg/dl Serum Health Serum or Plasma System Alkaline 108 Normal (applies Alkaline [facility] phosphatase {IU/L} to non-numeric Phosphatase, Health isoenzymes results) Serum System [Enzymatic activity/volume] in Serum or Plasma by Heat stability Bilirubin.total 0.6 Normal (applies Bilirubin, [facility] [Mass/volume] in mg/dl to non-numeric Serum Total Health Serum or Plasma results) System DirectBilirubin 0.3 Normal (applies Direct [facility] mg/dl to non-numeric Bilirubin Health results) System Aspartate 13 Normal (applies Aspartate [facility] aminotransferase {IU/L} to non-numeric Transaminase, [facility] [Enzymatic results) Serum System activity/volume] in Serum or Plasma by With P-5'-P Albumin 3.3 Below low normal Albumin, [facility] [Mass/volume] in {gm/dl} Serum Health Serum or Plasma System I.Phosphorus 2.3 Below low normal I. Phosphorus [facility] mg/dl [facility] System Alanine 16 Normal (applies Alanine [facility] aminotransferase {IU/L} to non-numeric Aminotransfer Heal [Enzymatic results) ase, Serum System activity/volume] in Serum or Plasma Calcium 8.1 Below low normal Calcium, [facility] [Mass/volume] in mg/dl Total Serum Health Serum or Plasma System A/GRatio 1.27 Normal (applies A/G Ratio [facility] to non-numeric Health results) System Urate 2.9 Normal (applies Uric Acid, [facility] [Mass/volume] in mg/dl to non-numeric Serum Health Serum or Plasma results) System Anion gap in Serum 12.00 Normal (applies Anion Gap [place] or Plasma mmol/L to non-numeric Health results) System Glomerular > 90 Normal (applies GFR [facility] filtration to non-numeric Health rate/1.73 sq results) System M.predicted [Volume Rate/Area] in Serum or Plasma by Creatinine-based formula (CKD-EPI) eGFR will provide clinicians with a more accurate indicator of renal function then the serum creatinine. The eGFR is automa tically calculated from an empiric formula (endorsed by the [employer]) which incorporates age, sex, and race.Clinicians may notice surprisingly low GFR's with serum creatinine valueswithin normal range- particularly in elderly wo men (with low muscle mass).In the hospital setting, the eGFR should add an element of safety in drug dosing, in assessing the risk of IV contrast administration, and in assessing vascular risk.The NKF staging system is as follows:Normal: eGFR >90 with no kidney markersStage 1: eGFR >90 with kidney markers*Stage 2: eGFR 60- 89Stage 3: eGFR 30-59Stage 4: eGFR 15-29Stage 5: eGFR <15 (usually requir ing dialysis)*Markers include: Proteinuria, Hematuria, abnormal imaging-studies, or other blood or urine test abnormalities ID Date Data Source [id number] 03/17/2020 04:10:48 PM EDT [facility] Name Value Range Interpretation Description Data Sup porting Code Source(s) Document(s ) aPTT in Blood 25.2 Normal (applies Activated [facility] by Coagulation {Seconds to non-numeric Partial Health assay } results) Thromboplastin System Time ID Date Data Source [id number] 03/17/2020 04:10:48 PM EDT [facility] Name Value Range Interpretation Description Data Sup porting Code Source(s) Document(s ) Sodium 141 Normal (applies Sodium, Serum [facility] [Moles/volume] in mmol/L to non-numeric Health Serum or Plasma results) System Potassium 3.4 Below low normal Potassium, [facility] [Mass/volume] in mmol/L Serum Health Serum or Plasma System Chloride 110 Above high Chloride, [facility] [Moles/volume] in mmol/L normal Serum Health Serum or Plasma System Carbon dioxide, 19.0 Below low normal CO2, Serum [facility] total mmol/L Health [Moles/volume] in System Serum or Plasma TotalProtein 6.0 Below low normal Total Protein [facility] mg/dl [facility] System Glucose 108 Above high Glucose, [facility] [Mass/volume] in mg/dL normal Serum Health Serum or Plasma System Urea nitrogen 3 mg/dl Below low normal Blood Urea [facility] [Mass/volume] in Nitrogen, Health Serum or Plasma Serum System Creatinine 0.60 Below low normal Creatinine, [facility] [Mass/volume] in mg/dl Serum Health Serum or Plasma System Alkaline 107 Normal (applies Alkaline [facility] phosphatase {IU/L} to non-numeric Phosphatase, [facility] isoenzymes results) Serum System [Enzymatic activity/volume] in Serum or Plasma by Heat stability Bilirubin.total 0.5 Normal (applies Bilirubin, [facility] [Mass/volume] in mg/dl to non-numeric Serum Total Health Serum or Plasma results) System DirectBilirubin 0.4 Normal (applies Direct [facility] mg/dl to non-numeric Bilirubin Health results) System Aspartate 11 Normal (applies Aspartate [facility] aminotransferase {IU/L} to non-numeric Transaminase, [facility]al [facility] [Enzymatic results) Serum System activity/volume] in Serum or Plasma by With P-5'-P Albumin 3.5 Below low normal Albumin, [facility] [Mass/volume] in {gm/dl} Serum Health Serum or Plasma System I.Phosphorus 2.8 Normal (applies I. Phosphorus [facility] mg/dl to non-numeric Health results) System Alanine 12 Normal (applies Alanine [facility] aminotransferase {IU/L} to non-numeric Aminotransfer Heal th [Enzymatic results) ase, Serum System activity/volume] in Serum or Plasma Calcium 8.6 Normal (applies Calcium, [facility] [Mass/volume] in mg/dl to non-numeric Total Serum Health Serum or Plasma results) System A/GRatio 1.40 Normal (applies A/G Ratio [facility] to non-numeric Health results) System Urate 3.0 Normal (applies Uric Acid, [facility] [Mass/volume] in mg/dl to non-numeric Serum Health Serum or Plasma results) System Anion gap in Serum 12.00 Normal (applies Anion Gap [place] or Plasma mmol/L to non-numeric Health results) System Glomerular > 90 Normal (applies GFR [facility] filtration to non-numeric Health rate/1.73 sq results) System M.predicted [Volume Rate/Area] in Serum or Plasma by Creatinine-based formula (CKD-EPI) eGFR will provide clinicians with a more accurate indicator of renal function then the serum creatinine. The eGFR is automa tically calculated from an empiric formula (endorsed by the [employer] ion) which incorporates age, sex, and race.Clinicians may notice surprisingly low GFR's with serum creatinine valueswithin normal range- particularly in elderly wo men (with low muscle mass).In the hospital setting, the eGFR should add an element of safety in drug dosing, in assessing the risk of IV contrast administration, and in assessing vascular risk.The NKF staging system is as follows:Normal: eGFR >90 with no kidney markersStage 1: eGFR >90 with kidney markers*Stage 2: eGFR 60- 89Stage 3: eGFR 30-59Stage 4: eGFR 15-29Stage 5: eGFR <15 (usually requir ing dialysis)*Markers include: Proteinuria, Hematuria, abnormal imaging-studies, or other blood or urine test abnormalities ID Date Data Source [id number] 03/17/2020 04:10:48 PM EDT [facility] [place] [facility] System Name Value Range Interpretation Description Data Sup porting Code Source(s) Document(s ) Triglyceride 119 Normal (applies Triglycerides, [facility] [Mass/volume] mg/dl to non-numeric Serum Health in Serum or results) System Plasma Optimal = < 100 mg/dLBoderline High = 15 0 - 199 mg/dLHigh = 200 - 499 mg/dLVery High = > 500 mg/dL Cholesterol 174 mg/dl Above high Cholesterol, Serum [facility] [Mass/volume] in normal System Serum or Plasma <200 mg/dL = [id number] - 239 md/dL = Borderline>240 mg/dL = High Risk Cholesterol in HDL 57.0 mg/dL Normal (applies HDL Cholestero l, [facility] [Mass/volume] in to non-numeric Serum Health S ystem Serum or Plasma results) CHDRisk 3.05 Normal (applies CHD Risk [facility] to non-numeric Health System results) Cholesterol in LDL 93.2 mg/dL Normal (applies Low Density [facility] [Mass/volume] in to non-numeric Lipoprotein, Healt h System Serum or Plasma results) Calculated OPTIMAL: LESS THAN 100 mg/dLNEAR OPTIMAL : 100 - 129 mg/dLBODERLINE HIGH: 130 - 150 mg/dL Cholesterol in VLDL 23.8 Normal (applies to VLDL, Serum [facility] [Mass/volume] in Serum non-numeric results) System or Plasma ID Date Data Source [id number] 03/17/2020 04:10:48 PM EDT [facility] Name Value Range Interpretation Description Data Sup porting Code Source(s) Document(s ) Creatine 75 {IU/L} Normal (applies Creatine [facility] kinase.MB to non-numeric Kinase, Serum Health Syst em [Mass/volume results) ] in Serum or Plasma ID Date Data Source [id number] 03/17/2020 04:10:48 PM EDT [facility] Name Value Range Interpretation Description Data Sup porting Code Source(s) Document(s ) Erythrocytes 4.83 Normal (applies RBC Count [facility] [#/volume] in {10\\S\\6_ to non-numeric Health Blood by uL} results) System Automated count Leukocytes 8.1 Normal (applies WBC Count [facility] [#/volume] in {10\\S\\3_ to non-numeric Health Unspecified uL} results) System specimen by Automated count Erythrocyte mean 84.9 fl Normal (applies MCV [facility] corpuscular to non-numeric Health volume [Entitic results) System volume] by Automated count Hematocrit 41.0 % Normal (applies Hematocrit, [facility] [Volume to non-numeric Whole Blood Health Fraction] of results) System Blood Hemoglobin 12.6 Normal (applies Hemoglobin, [facility] [Mass/volume] in {gm/dL} to non-numeric Whole Blood Health Blood results) System Erythrocyte mean 30.7 Below low normal MCHC [facility] corpuscular {gm/dL} Health hemoglobin System concentration [Mass/volume] by Automated count Erythrocyte 14.0 % Normal (applies RDW [facility] distribution to non-numeric Health width [Entitic results) System volume] by Automated count Erythrocyte mean 26.1 pg Normal (applies MCH [facility] corpuscular to non-numeric Health hemoglobin results) System [Entitic mass] by Automated count Platelets 309 Normal (applies Platelet [facility] [#/volume] in {10\\S\\3_ to non-numeric Count Health Plasma by uL} results) System Automated count Platelet mean 9.1 fl Normal (applies MPV [facility] volume [Entitic to non-numeric Health volume] in Blood results) System by Automated count Eosinophils 0.4 Normal (applies Eosinophil [facility] [#/volume] in {10\\S\\3} to non-numeric Count Blood Health Blood results) System Monocytes 0.5 Normal (applies Monocyte [facility] [#/volume] in {10\\S\\3_ to non-numeric Count Health Blood by Manual uL} results) System count Lymphocyte 3.0 Normal (applies Lymphocyte [facility] percent {10\\S\\3_ to non-numeric Absolute Health differential uL} results) System count (procedure) Basophils 0.03 Normal (applies Basophil [facility] [#/volume] in {10\\S\\3_ to non-numeric Count Health Blood by uL} results) System Automated count Neutrophils 4.3 Normal (applies Absolute [facility] [#/volume] in {10\\S\\3_ to non-numeric Neutrophil Health Body fluid uL} results) Count System Monocytes/100 5.7 % Below low normal Monocyte % [facility] leukocytes in Health Blood System Eosinophils/100 4.3 % Above high normal Eosinophil % [facility] leukocytes in Health Unspecified System specimen Neutrophils/100 52.9 % Normal (applies Neutrophil % [place] leukocytes in to non-numeric Health Blood by results) System Automated count Lymphocytes 36.7 % Normal (applies Lymphocyte % [facility] [#/volume] in to non-numeric Health Blood by results) System Automated count Basophils/100 0.4 % Normal (applies Basophil % [facility] leukocytes in to non-numeric Health Unspecified results) System specimen by Manual count ID Date Data Source [id number] 03/17/2020 04:10:48 PM EDT [facility] Name Value Range Interpretation Description Data Sup porting Code Source(s) Document(s ) Sodium 141 mmol/L Normal (applies Sodium, [facility] [Moles/volume] to non-numeric Serum Health in Serum or results) System Plasma Chloride 107 mmol/L Normal (applies Chloride, [facility] [Moles/volume] to non-numeric Serum Health in Serum or results) System Plasma Potassium 4.7 mmol/L Normal (applies Potassium, [facility] [Mass/volume] to non-numeric Serum Health in Serum or results) System Plasma Carbon dioxide, 23.0 mmol/L Normal (applies CO2, Serum [place] total to non-numeric Health [Moles/volume] results) System in Serum or Plasma TotalProtein 7.5 mg/dl Normal (applies Total [facility] to non-numeric Protein Health results) System Urea nitrogen 13 mg/dl Normal (applies Blood Urea [facility] [Mass/volume] to non-numeric Nitrogen, Health in Serum or results) Serum System Plasma Glucose 92 mg/dL Normal (applies Glucose, [facility] [Mass/volume] to non-numeric Serum Health in Serum or results) System Plasma Creatinine 0.80 mg/dl Normal (applies Creatinine, [facility] [Mass/volume] to non-numeric Serum Health in Serum or results) System Plasma Alkaline 152 {IU/L} Above high Alkaline [facility] phosphatase normal Phosphatase, Health isoenzymes Serum System [Enzymatic activity/volume ] in Serum or Plasma by Heat stability Aspartate 17 {IU/L} Normal (applies Aspartate [facility] aminotransferas to non-numeric Transaminase Health e [Enzymatic results) , Serum System activity/volume ] in Serum or Plasma by With P-5'-P Bilirubin.total 0.3 mg/dl Normal (applies Bilirubin, [facility] [Mass/volume] to non-numeric Serum Total Health in Serum or results) System Plasma I.Phosphorus 3.0 mg/dl Normal (applies I. [facility] to non-numeric Phosphorus Health results) System Albumin 4.3 {gm/dl} Normal (applies Albumin, [facility] [Mass/volume] to non-numeric Serum Health in Serum or results) System Plasma Alanine 17 {IU/L} Normal (applies Alanine [facility] aminotransferas to non-numeric Aminotransfe Health e [Enzymatic results) rase, Serum System activity/volume ] in Serum or Plasma Calcium 9.9 mg/dl Normal (applies Calcium, [facility] [Mass/volume] to non-numeric Total Serum Health in Serum or results) System Plasma Anion gap in 11.00 mmol/L Normal (applies Anion Gap [facility] Serum or Plasma to non-numeric Health results) System A/GRatio 1.34 Normal (applies A/G Ratio [facility] to non-numeric Health results) System Urate 5.0 mg/dl Normal (applies Uric Acid, [facility] [Mass/volume] to non-numeric Serum Health in Serum or results) System Plasma Glomerular Greater than Normal (applies GFR [facility] filtration 60 eGFR will to non-numeric Health rate/1.73 sq provide results) System M.predicted clinicians [Volume with a more Rate/Area] in accurate Serum or Plasma indicator of by renal function Creatinine-base then the serum d formula creatinine. (CKD-EPI) The eGFR is automatically calculated from an empiric formula (endorsed by the [employer]) which incorporates age, sex, and race.Clinician s may notice surprisingly low GFR's with serum creatinine valueswithin normal range- particularly in elderly women (with low muscle mass).In the hospital setting, the eGFR should add an element of safety in drug dosing, in assessing the risk of IV contrast administration , and in assessing vascular risk.The NKF staging system is as follows:Normal : eGFR >90 with no kidney markersStage 1: eGFR >90 with kidney markers*Stage 2: eGFR 60-89Stage 3: eGFR 30-59Stage 4: eGFR 15-29Stage 5: eGFR <15 (usually requiring dialysis)*Xiang ers include: Proteinuria, Hematuria, abnormal imaging-studie s, or other blood or urine test abnormalities ID Date Data Source [id number] 03/17/2020 04:10:48 PM EDT Tory gerardo System Name Value Range Interpretation Description Data Sup porting Code Source(s) Document(s ) Cholesterol 170 Normal (applies Cholesterol, [facility] [Mass/volume] mg/dl to non-numeric Serum Health Syst em in Serum or results) Plasma <200 mg/dL = [id number] - 239 md/dL = Borderline>240 mg/dL = High Risk Triglyceride 81 mg/dl Normal (applies Triglycerides, Serum [facility] [Mass/volume] in to non-numeric Health S yste Serum or Plasma results) Optimal = < 100 mg/dLBoderline High = 15 0 - 199 mg/dLHigh = 200 - 499 mg/dLVery High = > 500 mg/dL Cholesterol in LDL 98.8 mg/dL Normal (applies Low Density [facility] [Mass/volume] in to non-numeric Lipoprotein, Healt h System Serum or Plasma results) Calculated OPTIMAL: LESS THAN 100 mg/dLNEAR OPTIMAL : 100 - 129 mg/dLBODERLINE HIGH: 130 - 150 mg/dL Cholesterol in HDL 55.0 mg/dL Normal (applies HDL Cholestero l, [facility] [Mass/volume] in to non-numeric Serum Health S yste Serum or Plasma results) Cholesterol in VLDL 16.2 Normal (applies VLDL, Serum [facility] [Mass/volume] in to non-numeric Health S yste Serum or Plasma results) CHDRisk 3.09 Normal (applies CHD Risk [facility] to non-numeric Health System results) ID Date Data Source [id number] 03/17/2020 04:10:48 PM EDT [facility] System Name Value Range Interpretation Description Data Source(s ) Supporting Code Document(s ) Cytology See report Normal (applies to Cytology,Thinpr [facility] ,Thinpre non-numeric ep Pap Health System pPap results) ID Date Data Source [id number] 03/17/2020 04:10:48 PM EDT [facility] System Name Value Range Interpretation Description Data Sup porting Code Source(s) Document(s ) Human papilloma See Normal (applies Human [facility] virus DNA report to non-numeric Papilloma [facility] [Presence] in results) Virus DNA System Unspecified Detection specimen by Probe and signal amplification method ID Date Data Source [id number] 03/17/2020 04:10:48 PM EDT [facility] System Name Value Range Interpretation Description Data Sup porting Code Source(s) Document(s ) Deprecated Micro Result Normal (applies Aerobic [facility] Bacteria Final Culture to non-numeric Culture, Health identified Reading results) Urine System in Urine by Note::"MULTIPL Aerobe E BACTERIAL culture MORPHOTYPES PRESENT, POSSIBLE CONTAMINATION, SUGGEST RECOLLECTION IF CLINICALLY INDICATED". ID Date Data Source [id number] 03/17/2020 04:10:48 PM EDT [facility] System Name Value Range Interpretation Description Data Sup porting Code Source(s) Document(s ) N.Gono DNR Test Performed Normal (applies N. [place] mike rrhoea at: [facility] to non-numeric Gonorrhoeae Health [facility], One results) [place] [address] Yaz Hayes M.D. Chlamy Not Normal (applies Chlamydia, [facility] yecenia,DN DetectedReference to non-numeric DNA Probe Health AProbe Range: Not Detected results) System Effective April 21, 2012 test code 281A, Chlamydia trachomatis/Neisser ia gonorrhoeae, Endocervical or Male Urethra, DNA Dual Probe with Reflex will no longer be offered. The planisher of the test reagents will stop production of the assay as well as specimen collection devices mid-Summer of 2011. We recommend ordering test code 15128M, Chlamydia trachomatis/Neisser ia gonorrhoeae DNA, SDA which is a nucleic acid amplified assay superior in terms of sensitivity and is also the methodology recommended by the Centers for Disease Control and Prevention. C.Trac DNR Normal (applies C. [facility] homati to non-numeric Trachomatis Health sDNAPr results) DNA Probe System obe ID Date Data Source [id number] 03/17/2020 04:10:48 PM EDT [facility] System Name Value Range Interpretation Description Data Sup porting Code Source(s) Document(s ) Color YELLOW Normal (applies Color [facility] to non-numeric Health results) System Specific 1.020 Normal (applies Urine [facility] gravity of to non-numeric Specific Health Urine results) Dafter System Appearance of CLEAR Normal (applies Urine [facility] Urine to non-numeric Appearance Health results) System pH.. 8.5 Above high normal pH.. [facility] {pH_units} [facility] System Glucose,UA NEGATIVE Normal (applies Glucose, UA [facility] to non-numeric Health results) System Negative Protein NEGATIVE Normal (applies Protein [facility] [Mass/volume] in to non-numeric Health S yste Serum or Plasma results) BilirubinUrine NEGATIVE Normal (applies Bilirubin Urine [facility] to non-numeric Health System results) Urobilinogen 1.00 {eu/dL} Normal (applies Urobilinogen UA [facility] [Mass/volume] in to non-numeric Health S yste Urine results) Nitrate+Nitrite NEGATIVE Normal (applies Nitrite [facility] [Mass/volume] in to non-numeric Health S yste Unspecified specimen results) Negative Ketones [Mass/volume] NEGATIVE Normal (applies to Ketones U A [facility] in Urine non-numeric results) System Negative Leukocyte esterase NEGATIVE Normal (applies Leukocyte Carleen ase [facility] [Units/volume] in to non-numeric Concentration Hea lt System Urine results) Negative Leukocytes [#/volume] 0-1 Normal (applies White Blood [facility] in Unspecified specimen to non-numeric Cells H ealth System by Automated count results) RedBloodCells 0-1 Normal (applies Red Blood Cells [facility] to non-numeric Health System results) Epithelial cells few Normal (applies Epithelial Cells [facility] [Presence] in to non-numeric Health Syst em Unspecified specimen by results) Wet preparation Bacteria [Presence] in large Normal (applies Bacteria [facility] Unspecified specimen to non-numeric Heal th System results) AmorphousCrystals mod Normal (applies Amorphous [facility] to non-numeric Crystals Health System results) UrineBlood NEGATIVE Normal (applies Urine Blood [facility] to non-numeric Health System results) ID Date Data Source [id number] 03/17/2020 04:10:48 PM EDT [facility] System Name Value Range Interpretation Description Data Sup porting Code Source(s) Document(s ) Leukocytes 10.3 Normal (applies WBC Count [facility] [#/volume] in {10\\S\\3_ to non-numeric Health Unspecified uL} results) System specimen by Automated count Erythrocytes 5.10 Normal (applies RBC Count [facility] [#/volume] in {10\\S\\6_ to non-numeric Health Blood by uL} results) System Automated count Hemoglobin 13.8 Normal (applies Hemoglobin, [facility] [Mass/volume] in {gm/dL} to non-numeric Whole Blood Health Blood results) System Hematocrit 42.9 % Normal (applies Hematocrit, [facility] [Volume to non-numeric Whole Blood Health Fraction] of results) System Blood Erythrocyte mean 84.1 fl Normal (applies MCV [facility] corpuscular to non-numeric Health volume [Entitic results) System volume] by Automated count Erythrocyte mean 27.1 pg Normal (applies MCH [facility] corpuscular to non-numeric Health hemoglobin results) System [Entitic mass] by Automated count Erythrocyte mean 32.2 Below low normal MCHC [facility] corpuscular {gm/dL} Health hemoglobin System concentration [Mass/volume] by Automated count Erythrocyte 14.3 % Normal (applies RDW [facility] distribution to non-numeric Health width [Entitic results) System volume] by Automated count Platelet mean 9.4 fl Normal (applies MPV [facility] volume [Entitic to non-numeric Health volume] in Blood results) System by Automated count Platelets 341 Normal (applies Platelet [facility] [#/volume] in {10\\S\\3_ to non-numeric Count Health Plasma by uL} results) System Automated count Monocytes 0.7 Normal (applies Monocyte [facility] [#/volume] in {10\\S\\3_ to non-numeric Count Health Blood by Manual uL} results) System count Eosinophils 0.2 Normal (applies Eosinophil [facility] [#/volume] in {10\\S\\3} to non-numeric Count Blood Health Blood results) System Neutrophils 6.3 Normal (applies Absolute [facility] [#/volume] in {10\\S\\3_ to non-numeric Neutrophil Health Body fluid uL} results) Count System Basophils 0.03 Normal (applies Basophil [facility] [#/volume] in {10\\S\\3_ to non-numeric Count Health Blood by uL} results) System Automated count Neutrophils/100 61.5 % Normal (applies Neutrophil % [place] mike leukocytes in to non-numeric Health Blood by results) System Automated count Lymphocyte 3.0 Normal (applies Lymphocyte [facility] percent {10\\S\\3_ to non-numeric Absolute Health differential uL} results) System count (procedure) Eosinophils/100 2.3 % Normal (applies Eosinophil % [place] mike leukocytes in to non-numeric Health Unspecified results) System specimen Basophils/100 0.3 % Normal (applies Basophil % [facility] leukocytes in to non-numeric Health Unspecified results) System specimen by Manual count Monocytes/100 6.6 % Normal (applies Monocyte % [facility] leukocytes in to non-numeric Health Blood results) System Lymphocytes 29.3 % Normal (applies Lymphocyte % [facility] [#/volume] in to non-numeric Health Blood by results) System Automated count ID Date Data Source [id number] 03/17/2020 04:10:48 PM EDT [facility] System Name Value Range Interpretation Description Data Sup porting Code Source(s) Document(s ) Sodium 141 Normal (applies Sodium, Serum [facility] [Moles/volume] in mmol/L to non-numeric Health Serum or Plasma results) System Potassium 5.1 Above high Potassium, [facility] [Mass/volume] in mmol/L normal Serum Health Serum or Plasma System Chloride 106 Normal (applies Chloride, [facility] [Moles/volume] in mmol/L to non-numeric Serum Health Serum or Plasma results) System Carbon dioxide, 24.0 Normal (applies CO2, Serum [facility] total mmol/L to non-numeric Health [Moles/volume] in results) System Serum or Plasma TotalProtein 8.0 Normal (applies Total Protein [facility] mg/dl to non-numeric Health results) System Glucose 101 Normal (applies Glucose, [facility] [Mass/volume] in mg/dL to non-numeric Serum Health Serum or Plasma results) System Urea nitrogen 14 Normal (applies Blood Urea [facility] [Mass/volume] in mg/dl to non-numeric Nitrogen, Health Serum or Plasma results) Serum System Creatinine 1.00 Normal (applies Creatinine, [facility] [Mass/volume] in mg/dl to non-numeric Serum Health Serum or Plasma results) System Bilirubin.total 0.5 Normal (applies Bilirubin, [facility] [Mass/volume] in mg/dl to non-numeric Serum Total Health Serum or Plasma results) System Alkaline 162 Above high Alkaline [facility] phosphatase {IU/L} normal Phosphatase, Health isoenzymes Serum System [Enzymatic activity/volume] in Serum or Plasma by Heat stability Aspartate 12 Normal (applies Aspartate [facility] aminotransferase {IU/L} to non-numeric Transaminase, Heal th [Enzymatic results) Serum System activity/volume] in Serum or Plasma by With P-5'-P Albumin 4.2 Normal (applies Albumin, [facility] [Mass/volume] in {gm/dl} to non-numeric Serum Health Serum or Plasma results) System I.Phosphorus 4.5 Normal (applies I. Phosphorus [facility] mg/dl to non-numeric Health results) System Alanine 8 Normal (applies Alanine [facility] aminotransferase {IU/L} to non-numeric Aminotransfer Heal th [Enzymatic results) ase, Serum System activity/volume] in Serum or Plasma A/GRatio 1.11 Normal (applies A/G Ratio [facility] to non-numeric Health results) System Calcium 10.5 Above high Calcium, [facility] [Mass/volume] in mg/dl normal Total Serum Health Serum or Plasma System Urate 4.7 Normal (applies Uric Acid, [facility] [Mass/volume] in mg/dl to non-numeric Serum Health Serum or Plasma results) System Anion gap in Serum 11.00 Normal (applies Anion Gap [place] mike or Plasma mmol/L to non-numeric Health results) System Glomerular 56.23 Normal (applies GFR [facility] filtration to non-numeric Health rate/1.73 sq results) System M.predicted [Volume Rate/Area] in Serum or Plasma by Creatinine-based formula (CKD-EPI) eGFR will provide clinicians with a more accurate indicator of renal function then the serum creatinine. The eGFR is automa tically calculated from an empiric formula (endorsed by the National Kidney [employer] ion) which incorporates age, sex, and race.Clinicians may notice surprisingly low GFR's with serum creatinine valueswithin normal range- particularly in elderly wo men (with low muscle mass).In the hospital setting, the eGFR should add an element of safety in drug dosing, in assessing the risk of IV contrast administration, and in assessing vascular risk.The NKF staging system is as follows:Normal: eGFR >90 with no kidney markersStage 1: eGFR >90 with kidney markers*Stage 2: eGFR 60- 89Stage 3: eGFR 30-59Stage 4: eGFR 15-29Stage 5: eGFR <15 (usually requir ing dialysis)*Markers include: Proteinuria, Hematuria, abnormal imaging-studies, or other blood or urine test abnormalities ID Date Data Source [id number] 03/17/2020 04:10:48 PM EDT Tory gerardo System Name Value Range Interpretation Description Data Sup porting Code Source(s) Document(s ) Triglyceride 82 mg/dl Normal (applies Triglycerides, [facility] [Mass/volume] to non-numeric Serum Health in Serum or results) System Plasma Optimal = < 100 mg/dLBoderline High = 15 0 - 199 mg/dLHigh = 200 - 499 mg/dLVery High = > 500 mg/dL Cholesterol 185 mg/dl Normal (applies Cholesterol, Serum [facility] [Mass/volume] in to non-numeric Health S ystem Serum or Plasma results) <200 mg/dL = [id number] - 239 md/dL = Borderline>240 mg/dL = High Risk Cholesterol in HDL 49.0 mg/dL Normal (applies HDL Cholestero l, [facility] [Mass/volume] in to non-numeric Serum Health S ystem Serum or Plasma results) Cholesterol in LDL 119.6 mg/dL Normal (applies Low Density [facility] [Mass/volume] in to non-numeric Lipoprotein, Healt h System Serum or Plasma results) Calculated OPTIMAL: LESS THAN 100 mg/dLNEAR OPTIMAL : 100 - 129 mg/dLBODERLINE HIGH: 130 - 150 mg/dL Cholesterol in VLDL 16.4 Normal (applies to VLDL, Serum [facility] [Mass/volume] in Serum non-numeric results) System or Plasma CHDRisk 3.78 Normal (applies to CHD Risk [facility] non-numeric results) System ID Date Data Source [id number] 03/17/2020 04:10:48 PM EDT [facility] System Name Value Range Interpretation Description Data Sup porting Code Source(s) Document(s ) Creatine 64 {IU/L} Normal (applies Creatine [facility] kinase.MB to non-numeric Kinase, Serum Health Syst em [Mass/volume results) ] in Serum or Plasma ID Date Data Source [id number] 03/17/2020 04:10:48 PM EDT [facility] System Name Value Range Interpretation Description Data Sup porting Code Source(s) Document(s ) INR in Blood Cancelled INR Result [facility] by Coagulation Health assay System Prothrombintim Cancelled Prothrombin [facility] e(PT) hemolysed time (PT) Health System ID Date Data Source [id number] 03/17/2020 04:10:48 PM EDT [facility] System Name Value Range Interpretation Description Data Sup porting Code Source(s) Document(s ) Leukocytes 10.0 Normal (applies WBC Count [facility] [#/volume] in {10\\S\\3_ to non-numeric Health Unspecified uL} results) System specimen by Automated count Erythrocytes 5.13 Normal (applies RBC Count [facility] [#/volume] in {10\\S\\6_ to non-numeric Health Blood by uL} results) System Automated count Hemoglobin 13.8 Normal (applies Hemoglobin, [facility] [Mass/volume] in {gm/dL} to non-numeric Whole Blood Health Blood results) System Hematocrit 42.9 % Normal (applies Hematocrit, [facility] [Volume to non-numeric Whole Blood Health Fraction] of results) System Blood Erythrocyte mean 83.6 fl Normal (applies MCV [facility] corpuscular to non-numeric Health volume [Entitic results) System volume] by Automated count Erythrocyte mean 26.9 pg Normal (applies MCH [facility] corpuscular to non-numeric Health hemoglobin results) System [Entitic mass] by Automated count Erythrocyte 14.3 % Normal (applies RDW [facility] distribution to non-numeric Health width [Entitic results) System volume] by Automated count Erythrocyte mean 32.2 Below low normal MCHC [facility] corpuscular {gm/dL} Health hemoglobin System concentration [Mass/volume] by Automated count Platelets 317 Normal (applies Platelet [facility] [#/volume] in {10\\S\\3_ to non-numeric Count Health Plasma by uL} results) System Automated count Platelet mean 9.9 fl Normal (applies MPV [facility] volume [Entitic to non-numeric Health volume] in Blood results) System by Automated count Monocytes 0.7 Normal (applies Monocyte [facility] [#/volume] in {10\\S\\3_ to non-numeric Count Health Blood by Manual uL} results) System count Eosinophils 0.3 Normal (applies Eosinophil [facility] [#/volume] in {10\\S\\3} to non-numeric Count Blood Health Blood results) System Basophils 0.04 Normal (applies Basophil [facility] [#/volume] in {10\\S\\3_ to non-numeric Count Health Blood by uL} results) System Automated count Neutrophils 6.0 Normal (applies Absolute [facility] [#/volume] in {10\\S\\3_ to non-numeric Neutrophil Health Body fluid uL} results) Count System Lymphocyte 2.9 Normal (applies Lymphocyte [facility] percent {10\\S\\3_ to non-numeric Absolute Health differential uL} results) System count (procedure) Neutrophils/100 60.3 % Normal (applies Neutrophil % [place] mike leukocytes in to non-numeric Health Blood by results) System Automated count Monocytes/100 7.3 % Normal (applies Monocyte % [facility] leukocytes in to non-numeric Health Blood results) System Eosinophils/100 2.8 % Normal (applies Eosinophil % [place] mike leukocytes in to non-numeric Health Unspecified results) System specimen Basophils/100 0.4 % Normal (applies Basophil % [facility] leukocytes in to non-numeric Health Unspecified results) System specimen by Manual count Lymphocytes 29.2 % Normal (applies Lymphocyte % [facility] [#/volume] in to non-numeric Health Blood by results) System Automated count ID Date Data Source [id number] 03/17/2020 04:10:48 PM EDT [facility] System Name Value Range Interpretation Description Data Sup porting Code Source(s) Document(s ) Sodium 141 mmol/L Normal (applies Sodium, [facility] [Moles/volume] in to non-numeric Serum Health Serum or Plasma results) System Chloride 104 mmol/L Normal (applies Chloride, [facility] [Moles/volume] in to non-numeric Serum Health Serum or Plasma results) System Potassium Cancelled Potassium, [facility] [Mass/volume] in spec. Serum Health Serum or Plasma hemolyzed System Carbon dioxide, 17.0 mmol/L Below low CO2, Serum [facility] total normal Health [Moles/volume] in System Serum or Plasma Glucose 104 mg/dL Normal (applies Glucose, [facility] [Mass/volume] in to non-numeric Serum Health Serum or Plasma results) System TotalProtein 9.2 mg/dl Above high Total [facility] normal Protein Health System Creatinine 0.90 mg/dl Normal (applies Creatinine, [facility] [Mass/volume] in to non-numeric Serum Health Serum or Plasma results) System Urea nitrogen 12 mg/dl Normal (applies Blood Urea [facility] [Mass/volume] in to non-numeric Nitrogen, Health Serum or Plasma results) Serum System Bilirubin.total 0.5 mg/dl Normal (applies Bilirubin, [facility] [Mass/volume] in to non-numeric Serum Total Health Serum or Plasma results) System Alkaline 163 {IU/L} Above high Alkaline [facility] phosphatase normal Phosphatase, Health isoenzymes Serum System [Enzymatic activity/volume] in Serum or Plasma by Heat stability Aspartate 35 {IU/L} Normal (applies Aspartate [facility] aminotransferase to non-numeric Transaminase Healt h [Enzymatic results) , Serum System activity/volume] in Serum or Plasma by With P-5'-P Albumin 4.4 {gm/dl} Normal (applies Albumin, [facility] [Mass/volume] in to non-numeric Serum Health Serum or Plasma results) System I.Phosphorus 3.8 mg/dl Normal (applies I. [facility] to non-numeric Phosphorus Health results) System Calcium 9.9 mg/dl Normal (applies Calcium, [facility] [Mass/volume] in to non-numeric Total Serum Health Serum or Plasma results) System Alanine 15 {IU/L} Normal (applies Alanine [facility] aminotransferase to non-numeric Aminotransfe Healt h [Enzymatic results) rase, Serum System activity/volume] in Serum or Plasma A/GRatio 0.92 Normal (applies A/G Ratio [facility] to non-numeric Health results) System Anion gap in Serum 20.00 Above high Anion Gap [facility] or Plasma mmol/L normal Health System Urate 4.5 mg/dl Normal (applies Uric Acid, [facility] [Mass/volume] in to non-numeric Serum Health Serum or Plasma results) System Glomerular 63.46 Normal (applies GFR [facility] filtration to non-numeric Health rate/1.73 sq results) System M.predicted [Volume Rate/Area] in Serum or Plasma by Creatinine-based formula (CKD-EPI) eGFR will provide clinicians with a more accurate indicator of renal function then the serum creatinine. The eGFR is automa tically calculated from an empiric formula (endorsed by the National [employer] ion) which incorporates age, sex, and race.Clinicians may notice surprisingly low GFR's with serum creatinine valueswithin normal range- particularly in elderly wo men (with low muscle mass).In the hospital setting, the eGFR should add an element of safety in drug dosing, in assessing the risk of IV contrast administration, and in assessing vascular risk.The NKF staging system is as follows:Normal: eGFR >90 with no kidney markersStage 1: eGFR >90 with kidney markers*Stage 2: eGFR 60- 89Stage 3: eGFR 30-59Stage 4: eGFR 15-29Stage 5: eGFR <15 (usually requir ing dialysis)*Markers include: Proteinuria, Hematuria, abnormal imaging-studies, or other blood or urine test abnormalities ID Date Data Source [id number] 03/17/2020 04:10:48 PM EDT [facility] System Name Value Range Interpretation Description Data Sup porting Code Source(s) Document(s ) TroponinIQuantitative 0.01 Normal (applies Troponin I [facility] ng/ml to non-numeric Quantitative Health results) System ID Date Data Source [id number] 03/17/2020 04:10:48 PM EDT [facility] System Name Value Range Interpretation Description Data Sup porting Code Source(s) Document(s ) Creatine 100 Normal (applies Creatine [facility] kinase.MB {IU/L} to non-numeric Kinase, Serum Health Syst em [Mass/volume results) ] in Serum or Plasma ID Date Data Source [id number] 03/17/2020 04:10:48 PM EDT [facility] Name Value Range Interpretation Description Data Sup porting Code Source(s) Document(s ) Leukocytes 9.9 Normal (applies WBC Count [facility] [#/volume] in {10\\S\\3_ to non-numeric Health Unspecified uL} results) System specimen by Automated count Erythrocytes 4.68 Normal (applies RBC Count [facility] [#/volume] in {10\\S\\6_ to non-numeric Health Blood by uL} results) System Automated count Hemoglobin 12.7 Normal (applies Hemoglobin, [facility] [Mass/volume] in {gm/dL} to non-numeric Whole Blood Health Blood results) System Hematocrit 39.3 % Normal (applies Hematocrit, [facility] [Volume to non-numeric Whole Blood Health Fraction] of results) System Blood Erythrocyte mean 83.8 fl Normal (applies MCV [facility] corpuscular to non-numeric Health volume [Entitic results) System volume] by Automated count Erythrocyte mean 27.1 pg Normal (applies MCH [facility] corpuscular to non-numeric Health hemoglobin results) System [Entitic mass] by Automated count Erythrocyte mean 32.3 Below low normal [facility]C [facility] corpuscular {gm/dL} Health hemoglobin System concentration [Mass/volume] by Automated count Erythrocyte 14.2 % Normal (applies RDW [facility] distribution to non-numeric Health width [Entitic results) System volume] by Automated count Platelet mean 7.3 fl Below low normal MPV [facility] volume [Entitic Health volume] in Blood System by Automated count Platelets 297 Normal (applies Platelet [facility] [#/volume] in {10\\S\\3_ to non-numeric Count Health Plasma by uL} results) System Automated count Monocytes 0.8 Below low normal Monocyte [facility] [#/volume] in {10\\S\\3_ Count Health Blood by Manual uL} System count Eosinophils 0.1 Normal (applies Eosinophil [facility] [#/volume] in {10\\S\\3} to non-numeric Count Blood Health Blood results) System Basophils 0.00 Normal (applies Basophil [facility] [#/volume] in {10\\S\\3_ to non-numeric Count Health Blood by uL} results) System Automated count Neutrophils 7.7 Below low normal Absolute [facility] [#/volume] in {10\\S\\3_ Neutrophil Health Body fluid uL} Count System Lymphocyte 1.3 Below low normal Lymphocyte [facility] percent {10\\S\\3_ Absolute Health differential uL} System count (procedure) Neutrophils/100 77.6 % Above high normal Neutrophil % [facility] leukocytes in Health Blood by System Automated count Monocytes/100 7.7 % Normal (applies Monocyte % [facility] leukocytes in to non-numeric Health Blood results) System Eosinophils/100 1.4 % Normal (applies Eosinophil % [place] mike leukocytes in to non-numeric Health Unspecified results) System specimen Basophils/100 0.3 % Normal (applies Basophil % [facility] leukocytes in to non-numeric Health Unspecified results) System specimen by Manual count Lymphocytes 13.0 % Below low normal Lymphocyte % [facility] [#/volume] in Health Blood by System Automated count ID Date Data Source [id number] 03/17/2020 04:10:48 PM EDT [facility] Name Value Range Interpretation Description Data Sup porting Code Source(s) Document(s ) Sodium 137 Normal (applies Sodium, Serum [facility] [Moles/volume] in mmol/L to non-numeric Health Serum or Plasma results) System Potassium 4.3 Normal (applies Potassium, [facility] [Mass/volume] in mmol/L to non-numeric Serum Health Serum or Plasma results) System Chloride 106 Normal (applies Chloride, [facility] [Moles/volume] in mmol/L to non-numeric Serum Health Serum or Plasma results) System Carbon dioxide, 21.6 Normal (applies CO2, Serum [facility] total mmol/L to non-numeric Health [Moles/volume] in results) System Serum or Plasma TotalProtein 7.5 Normal (applies Total Protein [facility] mg/dl to non-numeric Health results) System Glucose 123 Above high Glucose, [facility] [Mass/volume] in mg/dL normal Serum Health Serum or Plasma System Urea nitrogen 14 Normal (applies Blood Urea [facility] [Mass/volume] in mg/dl to non-numeric Nitrogen, Health Serum or Plasma results) Serum System Creatinine 0.96 Normal (applies Creatinine, [facility] [Mass/volume] in mg/dl to non-numeric Serum Health Serum or Plasma results) System Alkaline 133 Above high Alkaline [facility] phosphatase {IU/L} normal Phosphatase, Health isoenzymes Serum System [Enzymatic activity/volume] in Serum or Plasma by Heat stability Bilirubin.total 0.4 Normal (applies Bilirubin, [facility] [Mass/volume] in mg/dl to non-numeric Serum Total Health Serum or Plasma results) System Aspartate 25 Normal (applies Aspartate [facility] aminotransferase {IU/L} to non-numeric Transaminase, Heal th [Enzymatic results) Serum System activity/volume] in Serum or Plasma by With P-5'-P Albumin 4.3 Normal (applies Albumin, [facility] [Mass/volume] in {gm/dl} to non-numeric Serum Health Serum or Plasma results) System Alanine 14 Normal (applies Alanine [facility] aminotransferase {IU/L} to non-numeric Aminotransfer Heal th [Enzymatic results) ase, Serum System activity/volume] in Serum or Plasma I.Phosphorus 3.1 Normal (applies I. Phosphorus [facility] mg/dl to non-numeric Health results) System Calcium 9.5 Normal (applies Calcium, [facility] [Mass/volume] in mg/dl to non-numeric Total Serum Health Serum or Plasma results) System A/GRatio 1.34 Normal (applies A/G Ratio [facility] to non-numeric Health results) System Urate 5.6 Normal (applies Uric Acid, [facility] [Mass/volume] in mg/dl to non-numeric Serum Health Serum or Plasma results) System Anion gap in Serum 9.40 Normal (applies Anion Gap [place] miek or Plasma mmol/L to non-numeric Health results) System Glomerular 58.90 Normal (applies GFR [facility] filtration to non-numeric Health rate/1.73 sq results) System M.predicted [Volume Rate/Area] in Serum or Plasma by Creatinine-based formula (CKD-EPI) eGFR will provide clinicians with a more accurate indicator of renal function then the serum creatinine. The eGFR is automa tically calculated from an empiric formula (endorsed by the National Kidney [employer] ion) which incorporates age, sex, and race.Clinicians may notice surprisingly low GFR's with serum creatinine valueswithin normal range- particularly in elderly wo men (with low muscle mass).In the hospital setting, the eGFR should add an element of safety in drug dosing, in assessing the risk of IV contrast administration, and in assessing vascular risk.The NKF staging system is as follows:Normal: eGFR >90 with no kidney markersStage 1: eGFR >90 with kidney markers*Stage 2: eGFR 60- 89Stage 3: eGFR 30-59Stage 4: eGFR 15-29Stage 5: eGFR <15 (usually requir ing dialysis)*Markers include: Proteinuria, Hematuria, abnormal imaging-studies, or other blood or urine test abnormalities ID Date Data Source [id number] 03/17/2020 04:10:48 PM EDT [facility] Name Value Range Interpretation Description Data Sup porting Code Source(s) Document(s ) TroponinIQuantitative 0.02 Normal (applies Troponin I [facility] ng/ml to non-numeric Quantitative Health results) System ID Date Data Source [id number] 03/17/2020 04:10:48 PM EDT [facility] Name Value Range Interpretation Description Data Sup porting Code Source(s) Document(s ) C.Trac Not Normal (applies C. [facility] homati DetectedReference to non-numeric Trachomatis Healt h sAmp Range: Not Detected results) Amp System N.Gono Not Normal (applies N. Gonorrhea [facility] rrheab DetectedReference to non-numeric by [facility] Health yLCR Range: Not Detected results) System This test was performed using the BD ProbeT[employer](TM) Chlamydia trachomatis and Neisseria gonorrhoeae Amplified DNA Assays. Test Performed at: [facility] [employer] [facility], [place] [address] Yaz Hayes M.D. ID Date Data Source [id number] 03/17/2020 04:10:48 PM EDT [facility] Name Value Range Interpretation Description Data Sup porting Code Source(s) Document(s ) ReportStatus FINAL Normal (applies Report Status [facility] to non-numeric Health results) System STATEMENTOFA SEE Normal (applies STATEMENT OF [facility] DEQUACY NOTESATISFAC to non-numeric ADEQUACY Health TORY FOR results) System EVALUATION NUMBEROFSLID 1 Normal (applies NUMBER OF SLIDES Vikash [facility] ES to non-numeric Health results) System INTERPRETATI SEE Normal (applies INTERPRETATION/RE [facility] ON/RESULT1 NOTENegative to non-numeric SULT 1 Health for results) System intraepithel ial lesion or malignancy. GENERALCATEG DNR Normal (applies GENERAL [facility] ORIZATION to non-numeric CATEGORIZATION Health results) System INTERPRETATI DNR Normal (applies INTERPRETATION/RE [facility] ON/RESULT2 to non-numeric SULT 2 Health results) System CYTOTECHNOLO SEE NOTEEMA, Normal (applies EMR ANALYST [facility] GIST CT(ASCP) to non-numeric Health results) System COMMENTCYTO DNR Normal (applies COMMENT CYTO [facility] to non-numeric Health results) System REVIEWCYTOTE DNR Normal (applies REVIEW [facility] CHNOLOGIST to non-numeric EMR ANALYST Health results) System HPVHIGHRISK NOT Normal (applies HPV HIGH RISK [facility] DETECTEDRefe to non-numeric Health rence Range: results) System Not DetectedTest ed for High Risk types 16,18,31,33, 35,39,45,51, 52,56,58,59, 68.The analytical performance characterist ics of thisassay, when used to test Surepath or Vaginalspeci mens, have been determined by [employer].Methodo logy: Hybrid Capture with signalamplif ication. Test Performed at: [facility], [place] [address] Yaz Hayes M.D. PATHOLOGIST. DNR Normal (applies PATHOLOGIST. Mina re to non-numeric Health results) System ID Date Data Source [id number] 03/17/2020 04:10:48 PM EDT [facility] Name Value Range Interpretation Description Data Sup porting Code Source(s) Document(s ) Color YELLOW Normal (applies Color [facility] to non-numeric Health System results) Appearance of CLEAR Normal (applies Urine [facility] Urine to non-numeric Appearance Health System results) Specific 1.020 Normal (applies Urine Specific [facility] gravity of to non-numeric [facility] Urine results) Glucose,UA NEGATIVE Normal (applies Glucose, UA [facility] to non-numeric Health System results) Negative pH.. 6.5 {pH_units} Normal (applies pH.. [facility] to non-numeric Health System results) Protein NEGATIVE Normal (applies Protein [facility] [Mass/volume] in to non-[facility] Health S yste Serum or Plasma results) BilirubinUrine NEGATIVE Normal (applies Bilirubin Urine [facility] to non-numeric Health System results) Urobilinogen 0.20 {eu/dL} Normal (applies Urobilinogen UA [facility] [Mass/volume] in to non-[facility] Health S yste Urine results) Ketones NEGATIVE Normal (applies Ketones UA [facility] [Mass/volume] in to non-[facility] Health S yste Urine results) Negative Nitrate+Nitrite NEGATIVE Normal (applies to Nitrite [place] [facility] [Mass/volume] in non-numeric results) Sy stem Unspecified specimen Negative Leukocyte esterase TRACE Normal (applies to Leukocyte Es terase [facility] [Units/volume] in non-numeric Concentration Health System Urine results) Negative Leukocytes 2-5 Normal (applies to White Blood Cells [facility] [#/volume] in non-numeric Health System Unspecified specimen results) by Automated count RedBloodCells 2-5 Normal (applies to Red Blood Cells [facility] non-numeric Health System results) Epithelial cells few Normal (applies to Epithelial Lico ls [facility] [Presence] in non-numeric Health System Unspecified specimen results) by Wet preparation Bacteria [Presence] few Normal (applies to Bacteria [facility] in Unspecified non-numeric Health System specimen results) UrineBlood TRACE-LYSE Normal (applies to Urine Blood [facility] D non-numeric Health System results) ID Date Data Source [id number] 03/17/2020 04:10:48 PM EDT [facility] Name Value Range Interpretation Description Data Sup porting Code Source(s) Document(s ) Leukocytes 11.2 Above high normal WBC Count [facility] [#/volume] in {10\\S\\3_ Health Unspecified uL} System specimen by Automated count Hemoglobin 13.6 Normal (applies Hemoglobin, [facility] [Mass/volume] in {gm/dL} to non-numeric Whole Blood Health Blood results) System Erythrocytes 5.18 Normal (applies RBC Count [facility] [#/volume] in {10\\S\\6_ to non-numeric Health Blood by uL} results) System Automated count Hematocrit 43.4 % Normal (applies Hematocrit, [facility] [Volume to non-numeric Whole Blood Health Fraction] of results) System Blood Erythrocyte mean 26.3 pg Normal (applies MCH [facility] corpuscular to non-numeric Health hemoglobin results) System [Entitic mass] by Automated count Erythrocyte mean 83.8 fl Normal (applies MCV [facility] corpuscular to non-numeric Health volume [Entitic results) System volume] by Automated count Erythrocyte mean 31.3 Below low normal [facility] corpuscular {gm/dL} Health hemoglobin System concentration [Mass/volume] by Automated count Erythrocyte 14.6 % Above high normal RDW [facility] distribution Health width [Entitic System volume] by Automated count Platelets 345 Normal (applies Platelet [facility] [#/volume] in {10\\S\\3_ to non-numeric Count Health Plasma by uL} results) System Automated count Platelet mean 9.2 fl Normal (applies MPV [facility] volume [Entitic to non-numeric Health volume] in Blood results) System by Automated count Monocytes 0.7 Normal (applies Monocyte [facility] [#/volume] in {10\\S\\3_ to non-numeric Count Health Blood by Manual uL} results) System count Eosinophils 0.5 Above high normal Eosinophil [facility] [#/volume] in {10\\S\\3_ Count Blood Health Blood uL} System Neutrophils 6.1 Normal (applies Absolute [facility] [#/volume] in {10\\S\\3_ to non-numeric Neutrophil Health Body fluid uL} results) Count System Basophils 0.1 Normal (applies Basophil [facility] [#/volume] in {10\\S\\3_ to non-numeric Count Health Blood by uL} results) System Automated count Lymphocyte 3.9 Normal (applies Lymphocyte [facility] percent {10\\S\\3_ to non-numeric Absolute Health differential uL} results) System count (procedure) Neutrophils/100 54.9 % Normal (applies Neutrophil % [place] mike leukocytes in to non-numeric Health Blood by results) System Automated count Eosinophils/100 4.0 % Above high normal Eosinophil % [facility] leukocytes in Health Unspecified System specimen Monocytes/100 6.1 % Normal (applies Monocyte % [facility] leukocytes in to non-numeric Health Blood results) System Basophils/100 0.4 % Normal (applies Basophil % [facility] leukocytes in to non-numeric Health Unspecified results) System specimen by Manual count Lymphocytes 34.6 % Normal (applies Lymphocyte % [facility] [#/volume] in to non-numeric Health Blood by results) System Automated count ID Date Data Source [id number] 03/17/2020 04:10:48 PM EDT [facility] Name Value Range Interpretation Description Data Sup porting Code Source(s) Document(s ) Sodium 145 Normal (applies Sodium, Serum [facility] [Moles/volume] in mmol/L to non-numeric Health Serum or Plasma results) System Chloride 108 Above high Chloride, [facility] [Moles/volume] in mmol/L normal Serum Health Serum or Plasma System Potassium 4.6 Normal (applies Potassium, [facility] [Mass/volume] in mmol/L to non-numeric Serum Health Serum or Plasma results) System Carbon dioxide, 23.0 Normal (applies CO2, Serum [facility] total mmol/L to non-numeric Health [Moles/volume] in results) System Serum or Plasma TotalProtein 7.9 Normal (applies Total Protein [facility] mg/dl to non-numeric Health results) System Glucose 113 Above high Glucose, [facility] [Mass/volume] in mg/dL normal Serum Health Serum or Plasma System Urea nitrogen 9 mg/dl Normal (applies Blood Urea [facility] [Mass/volume] in to non-numeric Nitrogen, Health Serum or Plasma results) Serum System Creatinine 0.80 Normal (applies Creatinine, [facility] [Mass/volume] in mg/dl to non-numeric Serum Health Serum or Plasma results) System Alkaline 155 Above high Alkaline [facility] phosphatase {IU/L} normal Phosphatase, Health isoenzymes Serum System [Enzymatic activity/volume] in Serum or Plasma by Heat stability Bilirubin.total 0.4 Normal (applies Bilirubin, [facility] [Mass/volume] in mg/dl to non-numeric Serum Total Health Serum or Plasma results) System Aspartate 14 Normal (applies Aspartate [facility] aminotransferase {IU/L} to non-numeric Transaminase, Heal th [Enzymatic results) Serum System activity/volume] in Serum or Plasma by With P-5'-P I.Phosphorus 3.6 Normal (applies I. Phosphorus [facility] mg/dl to non-numeric Health results) System Albumin 4.2 Normal (applies Albumin, [facility] [Mass/volume] in {gm/dl} to non-numeric Serum Health Serum or Plasma results) System Alanine 13 Normal (applies Alanine [facility] aminotransferase {IU/L} to non-numeric Aminotransfer Heal th [Enzymatic results) ase, Serum System activity/volume] in Serum or Plasma Calcium 10.2 Normal (applies Calcium, [facility] [Mass/volume] in mg/dl to non-numeric Total Serum Health Serum or Plasma results) System A/GRatio 1.14 Normal (applies A/G Ratio [facility] to non-numeric Health results) System Urate 4.7 Normal (applies Uric Acid, [facility] [Mass/volume] in mg/dl to non-numeric Serum Health Serum or Plasma results) System Glomerular 72.61 Normal (applies GFR [facility] filtration to non-numeric Health rate/1.73 sq results) System M.predicted [Volume Rate/Area] in Serum or Plasma by Creatinine-based formula (CKD-EPI) eGFR will provide clinicians with a more accurate indicator of renal function then the serum creatinine. The eGFR is automa tically calculated from an empiric formula (endorsed by the National Kidney Found[employer] ion) which incorporates age, sex, and race.Clinicians may notice surprisingly low GFR's with serum creatinine valueswithin normal range- particularly in elderly wo men (with low muscle mass).In the hospital setting, the eGFR should add an element of safety in drug dosing, in assessing the risk of IV contrast administration, and in assessing vascular risk.The NKF staging system is as follows:Normal: eGFR >90 with no kidney markersStage 1: eGFR >90 with kidney markers*Stage 2: eGFR 60- 89Stage 3: eGFR 30-59Stage 4: eGFR 15-29Stage 5: eGFR <15 (usually requir ing dialysis)*Markers include: Proteinuria, Hematuria, abnormal imaging-studies, or other blood or urine test abnormalities Anion gap in Serum 14.00 mmol/L Above high normal Anion Gap [facility] or Plasma System ID Date Data Source [id number] 03/17/2020 04:10:48 PM EDT [facility] [place] [facility] Name Value Range Interpretation Description Data Sup porting Code Source(s) Document(s ) Influenza Negative Normal (applies Influenza A [facility] virus A Ag to non-numeric Antigen, Serum Health [Presence] in results) System Unspecified specimen Influenza Negative Normal (applies Influenza B [facility] virus B Ag to non-numeric Virus Antigen, Health [Presence] in results) serum System Unspecified specimen Method: ChromatographicNote: Because the sensitivity of rapid flu test varies with the type of antigen and type of specimen , it could produce false negative results. Viral (cell) culture testing should be c onsidered to confirm the results and to assist in detecting other viruses that c an produce similar clinical symptoms. ID Date Data Source [id number] 03/17/2020 04:10:48 PM EDT [facility] System Name Value Range Interpretation Code Description Data Mariana rce(s) Supporting Document(s ) Microalbu 6 Normal (applies to Microalbumin, [facility] min,Urine non-numeric Urine. Health System . results) UNITS: mcg/mg Creat The ADA defi kacie abnormalities in albumin excretion as follows: Category: Result (mcg/mg creatinine) Normal <30 Microalbum inuria 30-299 Clinical albuminuria > or = 300 The A DA recommends that at least two of three specimens collected within a 3-6 month period be abnormal before considering a patient to be within a yecenia gnostic category. Microalbumin 1.0 mg/dL Normal (applies Microalbumin, Urine [facility] [Mass/volume] in to non-numeric Health S ystem Urine results) Reference Range: Not Established Creatinine,Urine. 168.00 mg/dL Normal (applies Creatinine, [facility] to non-numeric Urine. Health System results) Test Performed at: [employer] , [address] Abigail, M.D. ID Date Data Source [id number] 03/17/2020 04:10:48 PM EDT [facility] [place] [facility] Name Value Range Interpretation Description Data Sup porting Code Source(s) Document(s ) D31,2 58 pg/mL Normal (applies D3 1,25 [facility] 5 to non-numeric Health results) System D2,12 Less than 8 Vitamin D3, Normal (applies D2, 125 [facility] 5 1,25(OH)2 indicates both to non-numeric Health endogenousproduction and results) Syste m supplementation. Vitamin D2, 1,25(OH)2is an indicator of exogeous sources, such as diet orsupplementation. Interpretation and therapy are basedon measurement of Vitamin D,1,25(OH)2, Total.This test was developed and its performancecharacteristi cs have been determined by [employer] [place], [place].Performance characteristics refer to theanalytical performance of the test. This test was performed at: [employer] [address] Test Performed at: [facility] [employer] [facility], [address] [place] [address] Selvin Gibson MD,PhD 1,25D 58 pg/mL Normal (applies 1,25Dihydrox [facility] ihydr to non-numeric y Vit-D Health oxyVi results) System t-D ID Date Data Source [id number] 03/17/2020 04:10:48 PM EDT [facility] [place] [facility] Name Value Range Interpretation Description Data Sup porting Code Source(s) Document(s ) 25Hydrox 18 ng/mL Below low normal 25 Hydroxy [facility] yVitamin Vitamin D Health System D 25Hydrox 18 ng/mL Normal (applies 25 Hydroxy D3 [facility] yD3 to non-numeric Health System results) 25Hydrox Less than 4 Normal (applies 25 Hydroxy D2 [facility] yD2 25-OHD3 to non-numeric Health System indicates results) both endogenous production and supplementati on. 25-OHD2 is an indicator of exogenous sources such as diet or supplementati on. Therapy is based on measurement of Total 25-OHD, with levels <20 ng/mL indicative of Vitamin D deficiency, while levels between 20 ng/mL and 30 ng/mL suggest insufficiency . Optimal levels are > or = 30 ng/mL. Test Performed at: [employer] [facility], [place] [address] Yaz Hayes M.D. ID Date Data Source [id number] 03/17/2020 04:10:48 PM EDT [facility] Name Value Range Interpretation Description Data Sup porting Code Source(s) Document(s ) Leukocytes 8.3 Normal (applies WBC Count [facility] [#/volume] in {10^3_uL to non-numeric Health Unspecified } results) System specimen by Automated count Hemoglobin 13.8 Normal (applies Hemoglobin, [facility] [Mass/volume] in {gm/dL} to non-numeric Whole Blood Health Blood results) System Erythrocytes 5.15 Normal (applies RBC Count [facility] [#/volume] in {10^6_uL to non-numeric Health Blood by } results) System Automated count Hematocrit 43.9 % Normal (applies Hematocrit, [facility] [Volume to non-numeric Whole Blood Health Fraction] of results) System Blood Erythrocyte mean 85.2 fl Normal (applies MCV [facility] corpuscular to non-numeric Health volume [Entitic results) System volume] by Automated count Erythrocyte mean 31.4 Below low normal [facility] corpuscular {gm/dL} Health hemoglobin System concentration [Mass/volume] by Automated count Erythrocyte mean 26.8 pg Normal (applies [facility]CH [facility] corpuscular to non-numeric Health hemoglobin results) System [Entitic mass] by Automated count Erythrocyte 14.6 % Above high normal RDW [facility] distribution Health width [Entitic System volume] by Automated count Platelets 323 Normal (applies Platelet [facility] [#/volume] in {10^3_uL to non-numeric Count Health Plasma by } results) System Automated count Monocytes 0.5 Normal (applies Monocyte [facility] [#/volume] in {10^3_uL to non-numeric Count Health Blood by Manual } results) System count Platelet mean 9.4 fl Normal (applies MPV [facility] volume [Entitic to non-numeric Health volume] in Blood results) System by Automated count Eosinophils 0.2 Normal (applies Eosinophil [facility] [#/volume] in {10^3_uL to non-numeric Count Blood Health Blood } results) System Basophils 0.0 Normal (applies Basophil [facility] [#/volume] in {10^3_uL to non-numeric Count Health Blood by } results) System Automated count Lymphocyte 2.9 Normal (applies Lymphocyte [facility] percent {10^3_uL to non-numeric Absolute Health differential } results) System count (procedure) Neutrophils 4.7 Normal (applies Absolute [facility] [#/volume] in {10^3_uL to non-numeric Neutrophil Health Body fluid } results) Count System Neutrophils/100 56.5 % Normal (applies Neutrophil % [place] m[place] leukocytes in to non-numeric Health Blood by results) System Automated count Monocytes/100 6.3 % Normal (applies Monocyte % [facility] leukocytes in to non-numeric Health Blood results) System Basophils/100 0.2 % Normal (applies Basophil % [facility] leukocytes in to non-numeric Health Unspecified results) System specimen by Manual count Eosinophils/100 1.9 % Normal (applies Eosinophil % [place] leukocytes in to non-numeric Health Unspecified results) System specimen Lymphocytes 35.1 % Normal (applies Lymphocyte % [facility] [#/volume] in to non-numeric Health Blood by results) System Automated count ID Date Data Source [id number] 03/17/2020 04:10:48 PM EDT [facility] System Name Value Range Interpretation Description Data Sup porting Code Source(s) Document(s ) Potassium 4.7 Normal (applies Potassium, [facility] [Mass/volume] in mmol/L to non-numeric Serum Health Serum or Plasma results) System Sodium 141 Normal (applies Sodium, Serum [facility] [Moles/volume] in mmol/L to non-numeric Health Serum or Plasma results) System Chloride 105 Normal (applies Chloride, [facility] [Moles/volume] in mmol/L to non-numeric Serum Health Serum or Plasma results) System Carbon dioxide, 23.0 Normal (applies CO2, Serum [facility] total mmol/L to non-numeric Health [Moles/volume] in results) System Serum or Plasma TotalProtein 7.7 Normal (applies Total Protein [facility] mg/dl to non-numeric Health results) System Glucose 89 Normal (applies Glucose, [facility] [Mass/volume] in mg/dL to non-numeric Serum Health Serum or Plasma results) System Urea nitrogen 12 Normal (applies Blood Urea [facility] [Mass/volume] in mg/dl to non-numeric Nitrogen, Health Serum or Plasma results) Serum System Alkaline 161 Above high Alkaline [facility] phosphatase {IU/L} normal Phosphatase, Health isoenzymes Serum System [Enzymatic activity/volume] in Serum or Plasma by Heat stability Creatinine 0.90 Normal (applies Creatinine, [facility] [Mass/volume] in mg/dl to non-numeric Serum Health Serum or Plasma results) System Bilirubin.total 0.6 Normal (applies Bilirubin, [facility] [Mass/volume] in mg/dl to non-numeric Serum Total Health Serum or Plasma results) System Aspartate 14 Normal (applies Aspartate [facility] aminotransferase {IU/L} to non-numeric Transaminase, Heal th [Enzymatic results) Serum System activity/volume] in Serum or Plasma by With P-5'-P Albumin 4.1 Normal (applies Albumin, [facility] [Mass/volume] in {gm/dl} to non-numeric Serum Health Serum or Plasma results) System I.Phosphorus 3.5 Normal (applies I. Phosphorus [facility] mg/dl to non-numeric Health results) System Calcium 9.8 Normal (applies Calcium, [facility] [Mass/volume] in mg/dl to non-numeric Total Serum Health Serum or Plasma results) System Alanine 11 Normal (applies Alanine [facility] aminotransferase {IU/L} to non-numeric Aminotransfer Heal th [Enzymatic results) ase, Serum System activity/volume] in Serum or Plasma A/GRatio 1.14 Normal (applies A/G Ratio [facility] to non-numeric Health results) System Urate 4.6 Normal (applies Uric Acid, [facility] [Mass/volume] in mg/dl to non-numeric Serum Health Serum or Plasma results) System Anion gap in Serum 13.00 Above high Anion Gap [facility] or Plasma mmol/L normal Health System Glomerular 63.28 Normal (applies GFR [facility] filtration to non-numeric Health rate/1.73 sq results) System M.predicted [Volume Rate/Area] in Serum or Plasma by Creatinine-based formula (CKD-EPI) eGFR will provide clinicians with a more accurate indicator of renal function then the serum creatinine. The eGFR is automa tically calculated from an empiric formula (endorsed by the National Kidney [employer] ion) which incorporates age, sex, and race.Clinicians may notice surprisingly low GFR's with serum creatinine valueswithin normal range- particularly in elderly wo men (with low muscle mass).In the hospital setting, the eGFR should add an element of safety in drug dosing, in assessing the risk of IV contrast administration, and in assessing vascular risk.The NKF staging system is as follows:Normal: eGFR >90 with no kidney markersStage 1: eGFR >90 with kidney markers*Stage 2: eGFR 60- 89Stage 3: eGFR 30-59Stage 4: eGFR 15-29Stage 5: eGFR <15 (usually requir ing dialysis)*Markers include: Proteinuria, Hematuria, abnormal imaging-studies, or other blood or urine test abnormalities ID Date Data Source [id number] 03/17/2020 04:10:48 PM EDT Tory gerardo System Name Value Range Interpretation Description Data Sup porting Code Source(s) Document(s ) Triglyceride 85 mg/dl Normal (applies Triglycerides, [facility] [Mass/volume] to non-numeric Serum Health in Serum or results) System Plasma Optimal = < 100 mg/dLBoderline High = 15 0 - 199 mg/dLHigh = 200 - 499 mg/dLVery High = > 500 mg/dL Cholesterol 184 mg/dl Normal (applies Cholesterol, Serum [facility] [Mass/volume] in to non-numeric Health S ystem Serum or Plasma results) <200 mg/dL = [id number] - 239 md/dL = Borderline>240 mg/dL = High Risk Cholesterol in HDL 50.0 mg/dL Normal (applies HDL Cholestero l, [facility] [Mass/volume] in to non-numeric Serum Health S ystem Serum or Plasma results) Cholesterol in LDL 117 mg/dL Normal (applies Low Density [facility] [Mass/volume] in to non-numeric Lipoprotein, Healt h System Serum or Plasma results) Calculated OPTIMAL: LESS THAN 100 mg/dLNEAR OPTIMAL : 100 - 129 mg/dLBODERLINE HIGH: 130 - 150 mg/dL Cholesterol in VLDL 17 Normal (applies to VLDL, Serum [facility] [Mass/volume] in Serum non-numeric results) System or Plasma CHDRisk 3.68 Normal (applies to CHD Risk [facility] non-numeric results) System ID Date Data Source [id number] 03/17/2020 04:10:48 PM EDT [facility] System Name Value Range Interpretation Description Data Sup porting Code Source(s) Document(s ) ReportStatus FINAL Normal (applies Report Status [facility] to non-numeric Health System results) NUMBEROFSLIDES 1 Normal (applies NUMBER OF [facility] to non-numeric SLIDES Health System results) Previously released as 1 on 08/17/2014, 02:04 PM by P - Previously released as 1 on 08/17/2014, 02:02 PM by P - Previously r eleased as 1 on 08/17/2014, 02:00 PM by P - Previously released as 1 on 08/17/2014, 01:57 PM by P - Previously released as 1 on 08/17/2014, 01:55 PM by P - STATEMENTOFADEQUACY SEE NOTESatisfactory for Normal STATE MENT [facility] evaluation.Endocervical/transformation (applies to OF Health zone componentpresent. Previously non-numeric ADEQ UACY System released as (1) on 08/17/2014, 02:04 PM results) by P - (1) - SEE NOTESatisfactory for evaluation.Endocervical/transformation zone componentpresent.Previously released as (2) on 08/17/2014, 02:02 PM by P - (2) - SEE NOTESatisfactory for evaluation.Endocervical/transformation zone componentpresent.Previously released as (3) on 08/17/2014, 02:00 PM by P - (3) - SEE NOTESatisfactory for evaluation.Endocervical/transformation zone componentpresent.Previously released as (4) on 08/17/2014, 01:57 PM by P - (4) - SEE NOTESatisfactory for evaluation.Endocervical/transformation zone componentpresent.Previously released as (5) on 08/17/2014, 01:55 PM by P - (5) - SEE NOTESatisfactory for evaluation.Endocervical/transformation zone componentpresent. GENERALCATEGORIZATIO DNR Previously released as (1) on Nor mal GENERAL [facility] N 08/17/2014, 02:04 PM by P - (1) - (applies to [facility] DNRPreviously released as (2) on non-numeric TION System 08/17/2014, 02:02 PM by P - (2) - results) DNRPreviously released as (3) on 08/17/2014, 02:00 PM by P - (3) - DNRPreviously released as (4) on 08/17/2014, 01:57 PM by P - (4) - DNRPreviously released as (5) on 08/17/2014, 01:55 PM by P - (5) - DNR INTERPRETATION/RESUL SEE NOTENegative for intraepithelial Normal INTERPRETA [facility] T1 lesion or malignancy. Previously (applies to TION/ RESUL Health released as (1) on 08/17/2014, 02:04 PM non-numeri c T 1 System by P - (1) - SEE NOTENegative for results) intraepithelial lesion or malignancy.Previously released as (2) on 08/17/2014, 02:02 PM by P - (2) - SEE NOTENegative for intraepithelial lesion or malignancy.Previously released as (3) on 08/17/2014, 02:00 PM by P - (3) - SEE NOTENegative for intraepithelial lesion or malignancy.Previously released as (4) on 08/17/2014, 01:57 PM by P - (4) - SEE NOTENegative for intraepithelial lesion or malignancy.Previously released as (5) on 08/17/2014, 01:55 PM by P - (5) - SEE NOTENegative for intraepithelial lesion or malignancy. INTERPRETATION/RESUL DNR Previously released as (1) on Nor mal INTERPRETA [facility] T2 08/17/2014, 02:04 PM by P - (1) - (applies to TION /RESUL Health DNRPreviously released as (2) on non-numeric T 2 System 08/17/2014, 02:02 PM by P - (2) - results) DNRPreviously released as (3) on 08/17/2014, 02:00 PM by P - (3) - DNRPreviously released as (4) on 08/17/2014, 01:57 PM by P - (4) - DNRPreviously released as (5) on 08/17/2014, 01:55 PM by P - (5) - DNR COMMENTCYTO DNR Previously released as (1) on Normal COMM ENT [facility] 08/17/2014, 02:04 PM by P - (1) - (applies to CYTO Health DNRPreviously released as (2) on non-numeric System 08/17/2014, 02:02 PM by P - (2) - results) DNRPreviously released as (3) on 08/17/2014, 02:00 PM by P - (3) - DNRPreviously released as (4) on 08/17/2014, 01:57 PM by P - (4) - DNRPreviously released as (5) on 08/17/2014, 01:55 PM by P - (5) - DNR EMR ANALYST SEE NOTECMP, CT(ASCP) Previously [facility] ([facility] on 08/17/2014, 02:04 PM (applies t o LOGIST Health by P - (1) - SEE NOTECMP, non-numeric System CT(ASCP)Previously released as (2) on results) 08/17/2014, 02:02 PM by P - (2) - SEE NOTECMP, CT(ASCP)Previously released as (3) on 08/17/2014, 02:00 PM by P - (3) - SEE NOTECMP, CT(ASCP)Previously released as (4) on 08/17/2014, 01:57 PM by P - (4) - SEE NOTECMP, CT(ASCP)Previously released as (5) on 08/17/2014, 01:55 PM by P - (5) - SEE NOTECMP, CT(ASCP) REVIEWCYTOTECHNOLOGI DNR Previously released as (1) on Nor mal REVIEW [facility] ST 08/17/2014, 02:04 PM by P - (1) - (applies to CYTO TECHNO Health DNRPreviously released as (2) on non-numeric LOGIS T System 08/17/2014, 02:02 PM by P - (2) - results) DNRPreviously released as (3) on 08/17/2014, 02:00 PM by P - (3) - DNRPreviously released as (4) on 08/17/2014, 01:57 PM by P - (4) - DNRPreviously released as (5) on 08/17/2014, 01:55 PM by P - (5) - DNR PATHOLOGIST. DNR Previously released as (1) on Normal PAT HOLOGIS [facility] 08/17/2014, 02:04 PM by P - (1) - (applies to T. Health DNRPreviously released as (2) on non-numeric System 08/17/2014, 02:02 PM by P - (2) - results) DNRPreviously released as (3) on 08/17/2014, 02:00 PM by P - (3) - DNRPreviously released as (4) on 08/17/2014, 01:57 PM by P - (4) - DNRPreviously released as (5) on 08/17/2014, 01:55 PM by P - (5) - DNR HPV Not DetectedReference Range: NOT Normal HPV [facility] DETECTEDREFERENCE RANGE: NOT (applies to Health DETECTEDThis test was performed using non-numeric System the APTIMA HPV Assay([employer] results) This assay detects E6/E7 viralmessenger RNA (mRNA) from 14 high-risk HPV types(16,18,31,33,35,39,45,51,52,56,58, 59,66,68). Test Performed at: [facility], [place] [address] Yaz Hayes M.D. Previously released as (1) on 08/17/2014, 02:04 PM by P - (1) - Not DetectedReference Range: NOT DETECTEDREFERENCE RANGE: NOT DETECTEDThis test was performed using the APTIMA HPV Assay([employer]). This assay detects E6/E7 viralmessenger RNA (mRNA) from 14 high-risk HPV types(16,18,31,33,35,39,45,51,52,56,58, 59,66,68). Test Performed at: [facility], [place] [address]Shahnaz Hayes M.D.Previously released as (2) on 08/17/2014, 02:02 PM by P - (2) - Not DetectedReference Range: NOT DETECTEDREFERENCE RANGE: NOT DETECTEDThis test was performed using the APTIMA HPV Assay([employer]). This assay detects E6/E7 viralmessenger RNA (mRNA) from 14 high-risk HPV types(16,18,31,33,35,39,45,51,52,56,58, 59,66,68). Test Performed at: [facility], [place] [address] Yaz Hayes M.D.Previously released as (3) on 08/17/2014, 02:00 PM by P - (3) - Not DetectedReference Range: NOT DETECTEDREFERENCE RANGE: NOT DETECTEDThis test was performed using the APTIMA HPV Assay([employer]). This assay detects E6/E7 viralmessenger RNA (mRNA) from 14 high-risk HPV types(16,18,31,33,35,39,45,51,52,56,58, 59,66,68). Test Performed at: [facility], [place] [address] Yaz Hayes M.D.Previously released as (4) on 08/17/2014, 01:57 PM by P - (4) - Not DetectedReference Range: NOT DETECTEDREFERENCE RANGE: NOT DETECTEDThis test was performed using the APTIMA HPV Assay([employer]). This assay detects E6/E7 viralmessenger RNA (mRNA) from 14 high-risk HPV types(16,18,31,33,35,39,45,51,52,56,58, 59,66,68). Test Performed at: [facility], [place] [address] Yaz Hayes M.D.Previously released as (5) on 08/17/2014, 01:55 PM by - (5) - Not DetectedReference Range: NOT DETECTEDREFERENCE RANGE: NOT DETECTEDThis test was performed using the APTIMA HPV Assay([employer]). This assay detects E6/E7 viralmessenger RNA (mRNA) from 14 high-risk HPV types(16,18,31,33,35,39,45,51,52,56,58, 59,66,68). Test Performed at: [facility], [place] [address] Yaz Hayes M.D. ID Date Data Source [id number] 03/17/2020 04:10:48 PM EDT [facility] System Name Value Range Interpretation Description Data Sup porting Code Source(s) Document(s ) Leukocytes 8.9 10 Normal (applies WBC Count [facility] [#/volume] in to non-numeric Health Unspecified results) System specimen by Automated count Erythrocytes 5.33 10 Above high normal RBC Count [facility] [#/volume] in Health Blood by System Automated count Hemoglobin 14.6 Normal (applies Hemoglobin [facility] [Mass/volume] in {gm/dL} to non-numeric Health Blood results) System Hematocrit 45.4 % Normal (applies Hematocrit [facility] [Volume to non-numeric Health Fraction] of results) System Blood Erythrocyte mean 27.4 pg Normal (applies MCH [facility] corpuscular to non-numeric Health hemoglobin results) System [Entitic mass] by Automated count Erythrocyte mean 85.2 fl Normal (applies MCV [facility] corpuscular to non-numeric Health volume [Entitic results) System volume] by Automated count Erythrocyte mean 32.2 Below low normal MCHC [facility] corpuscular {gm/dL} Health hemoglobin System concentration [Mass/volume] by Automated count Erythrocyte 14.3 % Normal (applies RDW-CV [facility] distribution to non-numeric Health width [Entitic results) System volume] by Automated count Platelets 365 10 Normal (applies Platelet [facility] [#/volume] in to non-numeric Count Health Plasma by results) System Automated count Platelet mean 9.9 fl Normal (applies MPV [facility] volume [Entitic to non-numeric Health volume] in Blood results) System by Automated count Monocytes 0.5 10 Normal (applies Monocyte # [facility] [#/volume] in to non-numeric Health Blood by Manual results) System count Eosinophils 0.32 10 Above high normal Eosinophil # [facility] [#/volume] in Health Blood System Neutrophils 4.7 10 Normal (applies Neutrophil # [facility] [#/volume] in to non-numeric Health Body fluid results) System Basophils 0.04 10 Normal (applies Basophil # [facility] [#/volume] in to non-numeric Health Blood by results) System Automated count Lymphocyte 3.4 10 Normal (applies Lymphocyte # [facility] percent to non-numeric Health differential results) System count (procedure) Neutrophils/100 52.8 % Normal (applies Neutrophil % [place] m[place] leukocytes in to non-numeric Health Blood by results) System Automated count Monocytes/100 5.6 % Below low normal Monocyte % [facility] leukocytes in Health Blood System Eosinophils/100 3.6 % Above high normal Eosinophil % [facility] leukocytes in Health Unspecified System specimen Basophils/100 0.4 % Normal (applies Basophil % [facility] leukocytes in to non-numeric Health Unspecified results) System specimen by Manual count Lymphocytes 37.6 % Normal (applies Lymphocyte % [facility] [#/volume] in to non-numeric Health Blood by results) System Automated count ID Date Data Source [id number] 03/17/2020 04:10:48 PM EDT [facility] System Name Value Range Interpretation Description Data Sup porting Code Source(s) Document(s ) Thyrotropin 0.844 Normal (applies Thyroid [facility] [Mass/volume] to non-numeric Stimulating Health Sy stem in Serum or results) Hormone, Serum Plasma ID Date Data Source [id number] 03/17/2020 04:10:48 PM EDT [facility] System Name Value Range Interpretation Description Data Sup porting Code Source(s) Document(s ) Sodium 139 Normal (applies Sodium, Serum [facility] [Moles/volume] in mmol/L to non-numeric Health Serum or Plasma results) System Potassium 4.4 Normal (applies Potassium, [facility] [Mass/volume] in mmol/L to non-numeric Serum Health Serum or Plasma results) System Chloride 109 Above high Chloride, [facility] [Moles/volume] in mmol/L normal Serum Health Serum or Plasma System Carbon dioxide, 18.0 Below low normal CO2, Serum [facility] total mmol/L Health [Moles/volume] in System Serum or Plasma TotalProtein 8.7 Above high Total Protein [facility] mg/dl normal Health System Glucose 79 Normal (applies Glucose, [facility] [Mass/volume] in mg/dL to non-numeric Serum Health Serum or Plasma results) System Urea nitrogen 11 Normal (applies Blood Urea [facility] [Mass/volume] in mg/dl to non-numeric Nitrogen, Health Serum or Plasma results) Serum System Creatinine 0.90 Normal (applies Creatinine, [facility] [Mass/volume] in mg/dl to non-numeric Serum Health Serum or Plasma results) System Alkaline 169 Above high Alkaline [facility] phosphatase {IU/L} normal Phosphatase, Health isoenzymes Serum System [Enzymatic activity/volume] in Serum or Plasma by Heat stability Bilirubin.total 0.8 Normal (applies Bilirubin, [facility] [Mass/volume] in mg/dl to non-numeric Serum Total Health Serum or Plasma results) System DirectBilirubin 0.3 Normal (applies Direct [facility] mg/dl to non-numeric Bilirubin Health results) System Aspartate 14 Normal (applies Aspartate [facility] aminotransferase {IU/L} to non-numeric Transaminase, Heal th [Enzymatic results) Serum System activity/volume] in Serum or Plasma by With P-5'-P Albumin 4.4 Normal (applies Albumin, [facility] [Mass/volume] in {gm/dl} to non-numeric Serum Health Serum or Plasma results) System I.Phosphorus 2.4 Below low normal I. Phosphorus [facility] mg/dl Health System Calcium 10.0 Normal (applies Calcium, [facility] [Mass/volume] in mg/dl to non-numeric Total Serum Health Serum or Plasma results) System Alanine 9 Normal (applies Alanine [facility] aminotransferase {IU/L} to non-numeric Aminotransfer Heal th [Enzymatic results) ase, Serum System activity/volume] in Serum or Plasma A/GRatio 1.02 Normal (applies A/G Ratio [facility] to non-numeric Health results) System Urate 4.4 Normal (applies Uric Acid, [facility] [Mass/volume] in mg/dl to non-numeric Serum Health Serum or Plasma results) System Anion gap in Serum 12.00 Normal (applies Anion Gap [place] m[place] or Plasma mmol/L to non-numeric Health results) System Glomerular 63.15 Normal (applies GFR [facility] filtration to non-numeric Health rate/1.73 sq results) System M.predicted [Volume Rate/Area] in Serum or Plasma by Creatinine-based formula (CKD-EPI) eGFR will provide clinicians with a more accurate indicator of renal function then the serum creatinine. The eGFR is automa tically calculated from an empiric formula (endorsed by the National Kidney Foundat ion) which incorporates age, sex, and race.Clinicians may notice surprisingly low GFR's with serum creatinine valueswithin normal range- particularly in elderly wo men (with low muscle mass).In the hospital setting, the eGFR should add an element of safety in drug dosing, in assessing the risk of IV contrast administration, and in assessing vascular risk.The NKF staging system is as follows:Normal: eGFR >90 with no kidney markersStage 1: eGFR >90 with kidney markers*Stage 2: eGFR 60- 89Stage 3: eGFR 30-59Stage 4: eGFR 15-29Stage 5: eGFR <15 (usually requir ing dialysis)*Markers include: Proteinuria, Hematuria, abnormal imaging-studies, or other blood or urine test abnormalities ID Date Data Source [id number] 03/17/2020 04:10:48 PM EDT Tory gerardo System Name Value Range Interpretation Description Data Sup porting Code Source(s) Document(s ) Triglyceride 97 mg/dl Normal (applies Triglycerides, [facility] [Mass/volume] to non-numeric Serum Health in Serum or results) System Plasma Optimal = < 100 mg/dLBoderline High = 15 0 - 199 mg/dLHigh = 200 - 499 mg/dLVery High = > 500 mg/dL Cholesterol 169 mg/dl Normal (applies Cholesterol, Serum [facility] [Mass/volume] in to non-numeric Health S [employer] Serum or Plasma results) <200 mg/dL = [id number] - 239 md/dL = Borderline>240 mg/dL = High Risk Cholesterol in HDL 50.0 mg/dL Normal (applies HDL Cholestero l, [facility] [Mass/volume] in to non-numeric Serum Health S English [employer] Serum or Plasma results) Cholesterol in LDL 99.6 mg/dL Normal (applies Low Density [facility] [Mass/volume] in to non-numeric Lipoprotein, Healt h System Serum or Plasma results) Calculated OPTIMAL: LESS THAN 100 mg/dLNEAR OPTIMAL : 100 - 129 mg/dLBODERLINE HIGH: 130 - 150 mg/dL Cholesterol in VLDL 19.4 Normal (applies to VLDL, Serum [facility] [Mass/volume] in Serum non-numeric results) System or Plasma CHDRisk 3.38 Normal (applies to CHD Risk [facility] non-numeric results) System ID Date Data Source [id number] 03/17/2020 04:10:48 PM EDT [facility] System Name Value Range Interpretation Description Data Sup porting Code Source(s) Document(s ) Bacteria NO GROWTH Culture [facility] identified in Bacteria Blood Health Syst em Blood by [facility] culture ID Date Data Source [id number] 03/17/2020 04:10:48 PM EDT [facility] System Name Value Range Interpretation Description Data Sup porting Code Source(s) Document(s ) Bacteria NO GROWTH Culture [facility] identified in Bacteria Blood Health Syst em Blood by [employer] culture ID Date Data Source [id number] 03/17/2020 04:10:48 PM EDT [facility] System Name Value Range Interpretation Description Data Sup porting Code Source(s) Document(s ) Leukocytes 9.7 10 Normal (applies WBC Count [facility] [#/volume] in to non-numeric Health Unspecified results) System specimen by Automated count Erythrocytes 4.90 10 Normal (applies RBC Count [facility] [#/volume] in to non-numeric Health Blood by results) System Automated count Hemoglobin 13.6 Normal (applies Hemoglobin [facility] [Mass/volume] in {gm/dL} to non-numeric Health Blood results) System Hematocrit 43.1 % Normal (applies Hematocrit [facility] [Volume to non-numeric Health Fraction] of results) System Blood Erythrocyte mean 88.0 fl Normal (applies MCV [facility] corpuscular to non-numeric Health volume [Entitic results) System volume] by Automated count Erythrocyte mean 27.8 pg Normal (applies MCH [facility] corpuscular to non-numeric Health hemoglobin results) System [Entitic mass] by Automated count Erythrocyte mean 31.6 Below low normal [facility] corpuscular {gm/dL} Health hemoglobin System concentration [Mass/volume] by Automated count Erythrocyte 14.2 % Normal (applies RDW-CV [facility] distribution to non-numeric Health width [Entitic results) System volume] by Automated count Platelets 317 10 Normal (applies Platelet [facility] [#/volume] in to non-numeric Count Health Plasma by results) System Automated count Platelet mean 9.8 fl Normal (applies MPV [facility] volume [Entitic to non-numeric Health volume] in Blood results) System by Automated count Monocytes 0.5 10 Normal (applies Monocyte # [facility] [#/volume] in to non-numeric Health Blood by Manual results) System count Eosinophils 0.76 10 Above high normal Eosinophil # [facility] [#/volume] in Health Blood System Neutrophils 5.5 10 Normal (applies Neutrophil # [facility] [#/volume] in to non-numeric Health Body fluid results) System Basophils 0.04 10 Normal (applies Basophil # [facility] [#/volume] in to non-numeric Health Blood by results) System Automated count Lymphocyte 3.0 10 Normal (applies Lymphocyte # [facility] percent to non-numeric Health differential results) System count (procedure) Neutrophils/100 56.5 % Normal (applies Neutrophil % [place] m[place] leukocytes in to non-numeric Health Blood by results) System Automated count Monocytes/100 5.0 % Below low normal Monocyte % [facility] leukocytes in Health Blood System Eosinophils/100 7.8 % Above high normal Eosinophil % [facility] leukocytes in Health Unspecified System specimen Basophils/100 0.4 % Normal (applies Basophil % [facility] leukocytes in to non-numeric Health Unspecified results) System specimen by Manual count Lymphocytes 30.3 % Normal (applies Lymphocyte % [facility] [#/volume] in to non-numeric Health Blood by results) System Automated count ID Date Data Source [id number] 03/17/2020 04:10:48 PM EDT [facility] Name Value Range Interpretation Description Data Sup porting Code Source(s) Document(s ) Sodium 144 Normal (applies Sodium, Serum [facility] [Moles/volume] in mmol/L to non-numeric Health Serum or Plasma results) System Potassium 4.5 Normal (applies Potassium, [facility] [Mass/volume] in mmol/L to non-numeric Serum Health Serum or Plasma results) System Chloride 108 Above high Chloride, [facility] [Moles/volume] in mmol/L normal Serum Health Serum or Plasma System Carbon dioxide, 23.0 Normal (applies CO2, Serum [facility] total mmol/L to non-numeric Health [Moles/volume] in results) System Serum or Plasma TotalProtein 7.9 Normal (applies Total Protein [facility] mg/dl to non-numeric Health results) System Glucose 102 Normal (applies Glucose, [facility] [Mass/volume] in mg/dL to non-numeric Serum Health Serum or Plasma results) System Urea nitrogen 9 mg/dl Normal (applies Blood Urea [facility] [Mass/volume] in to non-numeric Nitrogen, Health Serum or Plasma results) Serum System Creatinine 0.80 Normal (applies Creatinine, [facility] [Mass/volume] in mg/dl to non-numeric Serum Health Serum or Plasma results) System Alkaline 134 Above high Alkaline [facility] phosphatase {IU/L} normal Phosphatase, Health isoenzymes Serum System [Enzymatic activity/volume] in Serum or Plasma by Heat stability Bilirubin.total 0.3 Normal (applies Bilirubin, [facility] [Mass/volume] in mg/dl to non-numeric Serum Total Health Serum or Plasma results) System DirectBilirubin 0.1 Normal (applies Direct [facility] mg/dl to non-numeric Bilirubin Health results) System Aspartate 15 Normal (applies Aspartate [facility] aminotransferase {IU/L} to non-numeric Transaminase, Heal th [Enzymatic results) Serum System activity/volume] in Serum or Plasma by With P-5'-P Albumin 4.3 Normal (applies Albumin, [facility] [Mass/volume] in {gm/dl} to non-numeric Serum Health Serum or Plasma results) System I.Phosphorus 3.5 Normal (applies I. Phosphorus [facility] mg/dl to non-numeric Health results) System Alanine 12 Normal (applies Alanine [facility] aminotransferase {IU/L} to non-numeric Aminotransfer Heal th [Enzymatic results) ase, Serum System activity/volume] in Serum or Plasma Calcium 9.7 Normal (applies Calcium, [facility] [Mass/volume] in mg/dl to non-numeric Total Serum Health Serum or Plasma results) System A/GRatio 1.19 Normal (applies A/G Ratio [facility] to non-numeric Health results) System Urate 4.4 Normal (applies Uric Acid, [facility] [Mass/volume] in mg/dl to non-numeric Serum Health Serum or Plasma results) System Anion gap in Serum 13.00 Above high Anion Gap [facility] or Plasma mmol/L normal Health System Glomerular 72.26 Normal (applies GFR [facility] filtration to non-numeric Health rate/1.73 sq results) System M.predicted [Volume Rate/Area] in Serum or Plasma by Creatinine-based formula (CKD-EPI) eGFR will provide clinicians with a more accurate indicator of renal function then the serum creatinine. The eGFR is automa tically calculated from an empiric formula (endorsed by the National Kidney [employer] ion) which incorporates age, sex, and race.Clinicians may notice surprisingly low GFR's with serum creatinine valueswithin normal range- particularly in elderly wo men (with low muscle mass).In the hospital setting, the eGFR should add an element of safety in drug dosing, in assessing the risk of IV contrast administration, and in assessing vascular risk.The NKF staging system is as follows:Normal: eGFR >90 with no kidney markersStage 1: eGFR >90 with kidney markers*Stage 2: eGFR 60- 89Stage 3: eGFR 30-59Stage 4: eGFR 15-29Stage 5: eGFR <15 (usually requir ing dialysis)*Markers include: Proteinuria, Hematuria, abnormal imaging-studies, or other blood or urine test abnormalities ID Date Data Source [id number] 03/17/2020 04:10:48 PM EDT [facility] System Name Value Range Interpretation Description Data Source(s ) Supporting Code Document(s ) Microalb 15 Normal (applies to Microalbumin: [facility] umin:CRR {mcg/mg_C non-numeric CR Ratio Health System atio re} results) UNITS: mcg/mg Creat The ADA defi kacie abnormalities in albumin excretion as follows: Category: Result (mcg/mg creatinine) Normal <30 Microalbuminuria 30-299 Clinical albuminuria > or = 300 The ADA recommends that at least two of three specimens collected within a 3-6 month period be abnormal before considering a p atient to be within a diagnostic category. Microalbumin 5.3 mg/dL Normal (applies Microalbumin, Urine [facility] [Mass/volume] in to non-numeric Health S ystem Urine results) Reference Range: Not Established The ADA defines abnormalities in albumin excretion as follows: Category: Result (mcg/mg creatinine) No rmal <30 Microalbuminuria 30-299 Clinical albuminuria > or = 300 The ADA recommends that at least two o f three specimens collected within a 3-6 month period be abnormal before considering a patient to be within a diagnostic category. Test Performed at: [employer], [place] [address] Zach Hough M.D. Creatinine,Urine. 345.00 mg/dL Above high Creatinine, Urine. [facility] [facility] Test Performed at: [employer], [place] [address] Zach Hough M.D. ID Date Data Source [id number] 03/17/2020 04:10:48 PM EDT [facility] System Name Value Range Interpretation Description Data Source(s ) Supporting Code Document(s ) [id number] 1.20 Normal (applies to T4 Free [facility] alysis ng/dL non-numeric Dialysis Health System results) This test was performed at: [employer] [address] Test Performed at: [facility], [address] [place] [address] Hardeep jung M.D., Ph.D. ID Date Data Source [id number] 03/17/2020 04:10:48 PM EDT [facility] System Name Value Range Interpretation Description Data Source(s ) Supporting Code Document(s ) 25Hydrox 19 ng/mL Below low normal 25 Hydroxy [facility] yVitamin Vitamin D Health System D 25Hydrox 19 ng/mL Normal (applies to 25 Hydroxy D3 [facility] yD3 non-numeric Health System results) 25Hydrox < 4 Normal (applies to 25 Hydroxy D2 [facility] yD2 non-numeric Health System results) 25-OHD3 indicates both endogenous produc tion and supplementation. 25- OHD2 is an indicator of exogenous source s such as diet or supplementation. Therapy is based on measurement of Total 25 -OHD, with levels <20 ng/mL indicative of Vitamin D deficiency, while levels b etween 20 ng/mL and 30 ng/mL suggest insufficiency. Optimal levels are > or = 30 ng/mL. Test Performed at: [facility] [employer], [place] [address] Zach Hough M.D. ID Date Data Source [id number] 03/17/2020 04:10:48 PM EDT [facility] System Name Value Range Interpretation Description Data Sup porting Code Source(s) Document(s ) Color YELLOW Normal (applies Color [facility] to non-numeric Health results) System Appearance of CLEAR Normal (applies Urine [facility] Urine to non-numeric Appearance Health results) System Specific gravity > =1.030 Normal (applies Urine Specific [facility] of Urine to non-numeric [facility] results) System pH.. 6.0 Normal (applies pH.. [facility] {pH_units} to non-numeric Health results) System Glucose,UA NEGATIVE Normal (applies Glucose, UA [facility] to non-numeric Health results) System Protein 30 mg/dl Normal (applies Protein [facility] [Mass/volume] in to non-numeric Health Serum or Plasma results) System BilirubinUrine SMALL Abnormal Bilirubin [facility] (applies to Urine Health non-numeric System results) Urobilinogen 1.0 mg/dL Normal (applies Urobilinogen [facility] [Mass/volume] in to non-numeric UA Health Urine results) System Ketones 15 Abnormal Ketones UA [facility] [Mass/volume] in {Tr_to_Lg} (applies to Health Urine non-numeric System results) Nitrate+Nitrite NEGATIVE Normal (applies Nitrite [facility] [Mass/volume] in to non-numeric Health Unspecified results) System specimen Leukocyte MODERATE Abnormal Leukocyte [facility] esterase (applies to Esterase Health [Units/volume] non-numeric Concentration System in Urine results) Leukocytes 10-20 Normal (applies White Blood [facility] [#/volume] in to non-numeric Cells Health Unspecified results) System specimen by Automated count RedBloodCells 5-10 Normal (applies Red Blood [facility] to non-numeric Cells Health results) System Epithelial cells mod Normal (applies Epithelial [facility] [Presence] in to non-numeric Cells Health Unspecified results) System specimen by Wet preparation Mucus mod Normal (applies Mucus [facility] to non-numeric Health results) System Bacteria few Normal (applies Bacteria [facility] [Presence] in to non-numeric Health Unspecified results) System specimen UrineBlood MODERATE Normal (applies Urine Blood [facility] to non-numeric Health results) System ID Date Data Source [id number] 03/17/2020 04:10:48 PM EDT [facility] Name Value Range Interpretation Description Data Sup porting Code Source(s) Document(s ) Leukocytes 11.3 Above high normal WBC Count [facility] [#/volume] in {10^3_uL Health Unspecified } System specimen by Automated count Erythrocytes 5.22 Above high normal RBC Count [facility] [#/volume] in {10^6_uL Health Blood by } System Automated count Hemoglobin 14.4 Normal (applies Hemoglobin [facility] [Mass/volume] in {gm/dL} to non-numeric Health Blood results) System Hematocrit 44.0 % Normal (applies Hematocrit [facility] [Volume to non-numeric Health Fraction] of results) System Blood Erythrocyte mean 84.3 fl Normal (applies MCV [facility] corpuscular to non-numeric Health volume [Entitic results) System volume] by Automated count Erythrocyte mean 27.6 pg Normal (applies MCH [facility] corpuscular to non-numeric Health hemoglobin results) System [Entitic mass] by Automated count Erythrocyte mean 32.7 Below low normal [facility] corpuscular {gm/dL} Health hemoglobin System concentration [Mass/volume] by Automated count Erythrocyte 14.4 % Normal (applies RDW-CV [facility] distribution to non-numeric Health width [Entitic results) System volume] by Automated count Platelets 367 Normal (applies Platelet [facility] [#/volume] in {10^3_uL to non-numeric Count Health Plasma by } results) System Automated count Platelet mean 9.4 fl Normal (applies MPV [facility] volume [Entitic to non-numeric Health volume] in Blood results) System by Automated count Monocytes 0.7 Normal (applies Monocyte # [facility] [#/volume] in {10^3_uL to non-numeric Health Blood by Manual } results) System count Eosinophils 0.11 Normal (applies Eosinophil # [facility] [#/volume] in {10^3_uL to non-numeric Health Blood } results) System Neutrophils 7.0 Normal (applies Neutrophil # [facility] [#/volume] in {10^3_uL to non-numeric Health Body fluid } results) System Basophils 0.02 Normal (applies Basophil # [facility] [#/volume] in {10^3_uL to non-numeric Health Blood by } results) System Automated count Lymphocyte 3.4 Normal (applies Lymphocyte # [facility] percent {10^3_uL to non-numeric Health differential } results) System count (procedure) Neutrophils/100 62.3 % Normal (applies Neutrophil % [place] leukocytes in to non-numeric Health Blood by results) System Automated count Monocytes/100 6.5 % Normal (applies Monocyte % [facility] leukocytes in to non-numeric Health Blood results) System Eosinophils/100 1.0 % Normal (applies Eosinophil % [place] leukocytes in to non-numeric Health Unspecified results) System specimen Basophils/100 0.2 % Normal (applies Basophil % [facility] leukocytes in to non-numeric Health Unspecified results) System specimen by Manual count Lymphocytes 30.0 % Normal (applies Lymphocyte % [facility] [#/volume] in to non-numeric Health Blood by results) System Automated count ID Date Data Source [id number] 03/17/2020 04:10:48 PM EDT [facility] Name Value Range Interpretation Description Data Sup porting Code Source(s) Document(s ) Thyrotropin 1.099 Normal (applies Thyroid [facility] [Mass/volume] to non-numeric Stimulating Health Sy stem in Serum or results) Hormone, Serum Plasma ID Date Data Source [id number] 03/17/2020 04:10:48 PM EDT [facility] Name Value Range Interpretation Description Data Sup porting Code Source(s) Document(s ) Sodium 140 Normal (applies Sodium, Serum [facility] [Moles/volume] in mmol/L to non-numeric Health Serum or Plasma results) System Potassium 5.1 Above high Potassium, [facility] [Mass/volume] in mmol/L normal Serum Health Serum or Plasma System Chloride 106 Normal (applies Chloride, [facility] [Moles/volume] in mmol/L to non-numeric Serum Health Serum or Plasma results) System Carbon dioxide, 18.0 Below low normal CO2, Serum [facility] total mmol/L Health [Moles/volume] in System Serum or Plasma TotalProtein 8.4 Above high Total Protein [facility] mg/dl normal Health System Glucose 103 Normal (applies Glucose, [facility] [Mass/volume] in mg/dL to non-numeric Serum Health Serum or Plasma results) System Urea nitrogen 15 Normal (applies Blood Urea [facility] [Mass/volume] in mg/dl to non-numeric Nitrogen, Health Serum or Plasma results) Serum System Creatinine 1.10 Normal (applies Creatinine, [facility] [Mass/volume] in mg/dl to non-numeric Serum Health Serum or Plasma results) System Alkaline 164 Above high Alkaline [facility] phosphatase {IU/L} normal Phosphatase, Health isoenzymes Serum System [Enzymatic activity/volume] in Serum or Plasma by Heat stability Bilirubin.total 0.9 Normal (applies Bilirubin, [facility] [Mass/volume] in mg/dl to non-numeric Serum Total Health Serum or Plasma results) System DirectBilirubin 0.3 Normal (applies Direct [facility] mg/dl to non-numeric Bilirubin Health results) System Aspartate 15 Normal (applies Aspartate [facility] aminotransferase {IU/L} to non-numeric Transaminase, Heal th [Enzymatic results) Serum System activity/volume] in Serum or Plasma by With P-5'-P Albumin 4.8 Normal (applies Albumin, [facility] [Mass/volume] in {gm/dl} to non-numeric Serum Health Serum or Plasma results) System I.Phosphorus 3.3 Normal (applies I. Phosphorus [facility] mg/dl to non-numeric Health results) System Alanine 11 Normal (applies Alanine [facility] aminotransferase {IU/L} to non-numeric Aminotransfer Heal th [Enzymatic results) ase, Serum System activity/volume] in Serum or Plasma Calcium 10.5 Above high Calcium, [facility] [Mass/volume] in mg/dl normal Total Serum Health Serum or Plasma System A/GRatio 1.33 Normal (applies A/G Ratio [facility] to non-numeric Health results) System Urate 5.7 Normal (applies Uric Acid, [facility] [Mass/volume] in mg/dl to non-numeric Serum Health Serum or Plasma results) System Anion gap in Serum 16.00 Above high Anion Gap [facility] or Plasma mmol/L normal Health System Glomerular 50.00 Normal (applies GFR [facility] filtration to non-numeric Health rate/1.73 sq results) System M.predicted [Volume Rate/Area] in Serum or Plasma by Creatinine-based formula (CKD-EPI) eGFR will provide clinicians with a more accurate indicator of renal function then the serum creatinine. The eGFR is automa tically calculated from an empiric formula (endorsed by the National Kidney Found[employer] ion) which incorporates age, sex, and race.Clinicians may notice surprisingly low GFR's with serum creatinine valueswithin normal range- particularly in elderly wo men (with low muscle mass).In the hospital setting, the eGFR should add an element of safety in drug dosing, in assessing the risk of IV contrast administration, and in assessing vascular risk.The NKF staging system is as follows:Normal: eGFR >90 with no kidney markersStage 1: eGFR >90 with kidney markers*Stage 2: eGFR 60- 89Stage 3: eGFR 30-59Stage 4: eGFR 15-29Stage 5: eGFR <15 (usually requir ing dialysis)*Markers include: Proteinuria, Hematuria, abnormal imaging-studies, or other blood or urine test abnormalities ID Date Data Source [id number] 03/17/2020 04:10:48 PM EDT [facility] System Name Value Range Interpretation Description Data Sup porting Code Source(s) Document(s ) Triglyceride 94 mg/dl Normal (applies Triglycerides, [facility] [Mass/volume] to non-numeric Serum Health in Serum or results) System Plasma Optimal = < 100 mg/dLBoderline High = 15 0 - 199 mg/dLHigh = 200 - 499 mg/dLVery High = > 500 mg/dL Cholesterol 188 mg/dl Normal (applies Cholesterol, Serum [facility] [Mass/volume] in to non-numeric Health [place] Serum or Plasma results) <200 mg/dL = [id number] - 239 md/dL = Borderline>240 mg/dL = High Risk Cholesterol in HDL 57.0 mg/dL Normal (applies HDL Cholestero l, [facility] [Mass/volume] in to non-numeric Serum Health S [place] Serum or Plasma results) Cholesterol in LDL 112.2 mg/dL Normal (applies Low Density [facility] [Mass/volume] in to non-numeric Lipoprotein, Healt h System Serum or Plasma results) Calculated OPTIMAL: LESS THAN 100 mg/dLNEAR OPTIMAL : 100 - 129 mg/dLBODERLINE HIGH: 130 - 150 mg/dL Cholesterol in VLDL 18.8 Normal (applies to VLDL, Serum [facility] [Mass/volume] in Serum non-numeric results) System or Plasma CHDRisk 3.30 Normal (applies to CHD Risk [facility] Health non-numeric results) System ID Date Data Source [id number] 03/17/2020 04:10:48 PM EDT [facility] System Name Value Range Interpretation Code Description Data Mariana rce(s) Supporting Document(s ) HbA1C 5.9 % Normal (applies to HbA1C [facility] Health non-numeric results) System ID Date Data Source [id number] 03/17/2020 04:10:48 PM EDT [facility] System Name Value Range Interpretation Description Data Sup porting Code Source(s) Document(s ) Deprecated Micro Result Normal (applies Aerobic [facility] Bacteria Final Culture to non-numeric Culture, Health identified Reading results) Urine System in Urine by Note::"MULTIPL Aerobe E BACTERIAL culture MORPHOTYPES PRESENT, POSSIBLE CONTAMINATION, SUGGEST RECOLLECTION IF CLINICALLY INDICATED". ID Date Data Source [id number] 03/17/2020 04:10:48 PM EDT [facility] Name Value Range Interpretation Description Data Sup porting Code Source(s) Document(s ) Color YELLOW Normal (applies Color [facility] to non-numeric Health results) System Appearance of CLEAR Normal (applies Urine [facility] Urine to non-numeric Appearance Health results) System Specific gravity 1.015 Normal (applies Urine Specific [facility] of Urine to non-numeric [facility] results) System pH.. 8.0 Normal (applies pH.. [facility] {pH_units} to non-numeric Health results) System Glucose,UA NEGATIVE Normal (applies Glucose, UA [facility] to non-numeric Health results) System Protein NEGATIVE Normal (applies Protein [facility] [Mass/volume] in to non-numeric Health Serum or Plasma results) System BilirubinUrine NEGATIVE Normal (applies Bilirubin [facility] to non-numeric Urine Health results) System Urobilinogen 0.2 mg/dL Normal (applies Urobilinogen [facility] [Mass/volume] in to non-numeric UA Health Urine results) System Ketones NEGATIVE Normal (applies Ketones UA [facility] [Mass/volume] in to non-numeric Health Urine results) System Nitrate+Nitrite NEGATIVE Normal (applies Nitrite [facility] [Mass/volume] in to non-numeric Health Unspecified results) System specimen Leukocyte NEGATIVE Normal (applies Leukocyte [facility] esterase to non-numeric Esterase Health [Units/volume] results) Concentration System in Urine UrineBlood NEGATIVE Normal (applies Urine Blood [facility] to non-numeric Health results) System ID Date Data Source [id number] 03/17/2020 04:10:48 PM EDT [facility] Name Value Range Interpretation Description Data Sup porting Code Source(s) Document(s ) Leukocytes 9.2 Normal (applies WBC Count [facility] [#/volume] in {10^3_uL to non-numeric Health Unspecified } results) System specimen by Automated count Erythrocytes 4.94 Normal (applies RBC Count [facility] [#/volume] in {10^6_uL to non-numeric Health Blood by } results) System Automated count Hemoglobin 14.0 Normal (applies Hemoglobin [facility] [Mass/volume] in {gm/dL} to non-numeric Health Blood results) System Hematocrit 42.7 % Normal (applies Hematocrit [facility] [Volume to non-numeric Health Fraction] of results) System Blood Erythrocyte mean 86.4 fl Normal (applies MCV [facility] corpuscular to non-numeric Health volume [Entitic results) System volume] by Automated count Erythrocyte mean 28.3 pg Normal (applies MCH [facility] corpuscular to non-numeric Health hemoglobin results) System [Entitic mass] by Automated count Erythrocyte mean 32.8 Below low normal [facility] [facility] corpuscular {gm/dL} Health hemoglobin System concentration [Mass/volume] by Automated count Erythrocyte 14.3 % Normal (applies RDW-CV [facility] distribution to non-numeric Health width [Entitic results) System volume] by Automated count Platelets 357 Normal (applies Platelet [facility] [#/volume] in {10^3_uL to non-numeric Count Health Plasma by } results) System Automated count Platelet mean 8.9 fl Normal (applies MPV [facility] volume [Entitic to non-numeric Health volume] in Blood results) System by Automated count Monocytes 0.6 Normal (applies Monocyte # [facility] [#/volume] in {10^3_uL to non-numeric Health Blood by Manual } results) System count Eosinophils 0.19 Normal (applies Eosinophil # [facility] [#/volume] in {10^3_uL to non-numeric Health Blood } results) System Neutrophils 5.6 Normal (applies Neutrophil # [facility] [#/volume] in {10^3_uL to non-numeric Health Body fluid } results) System Basophils 0.02 Normal (applies Basophil # [facility] [#/volume] in {10^3_uL to non-numeric Health Blood by } results) System Automated count Lymphocyte 2.8 Normal (applies Lymphocyte # [facility] percent {10^3_uL to non-numeric Health differential } results) System count (procedure) Neutrophils/100 61.4 % Normal (applies Neutrophil % [place] leukocytes in to non-numeric Health Blood by results) System Automated count Monocytes/100 6.1 % Normal (applies Monocyte % [facility] leukocytes in to non-numeric Health Blood results) System Eosinophils/100 2.1 % Normal (applies Eosinophil % [place] leukocytes in to non-numeric Health Unspecified results) System specimen Basophils/100 0.2 % Normal (applies Basophil % [facility] leukocytes in to non-numeric Health Unspecified results) System specimen by Manual count Lymphocytes 30.2 % Normal (applies Lymphocyte % [facility] [#/volume] in to non-numeric Health Blood by results) System Automated count ID Date Data Source [id number] 03/17/2020 04:10:48 PM EDT [facility] Name Value Range Interpretation Description Data Sup porting Code Source(s) Document(s ) Sodium 142 Normal (applies Sodium, Serum [facility] [Moles/volume] in mmol/L to non-numeric Health Serum or Plasma results) System Potassium 4.8 Normal (applies Potassium, [facility] [Mass/volume] in mmol/L to non-numeric Serum Health Serum or Plasma results) System Chloride 107 Normal (applies Chloride, [facility] [Moles/volume] in mmol/L to non-numeric Serum Health Serum or Plasma results) System Carbon dioxide, 21.0 Below low normal CO2, Serum [facility] total mmol/L [facility] [Moles/volume] in System Serum or Plasma TotalProtein 7.9 Normal (applies Total Protein [facility] mg/dl to non-numeric Health results) System Glucose 100 Normal (applies Glucose, [facility] [Mass/volume] in mg/dL to non-numeric Serum Health Serum or Plasma results) System Urea nitrogen 8 mg/dl Normal (applies Blood Urea [facility] [Mass/volume] in to non-numeric Nitrogen, Health Serum or Plasma results) Serum System Creatinine 0.74 Normal (applies Creatinine, [facility] [Mass/volume] in mg/dl to non-numeric Serum Health Serum or Plasma results) System Alkaline 147 Above high Alkaline [facility] phosphatase {IU/L} normal Phosphatase, Health isoenzymes Serum System [Enzymatic activity/volume] in Serum or Plasma by Heat stability Bilirubin.total 0.4 Normal (applies Bilirubin, [facility] [Mass/volume] in mg/dl to non-numeric Serum Total Health Serum or Plasma results) System DirectBilirubin 0.2 Normal (applies Direct [facility] mg/dl to non-numeric Bilirubin Health results) System Aspartate 14 Normal (applies Aspartate [facility] aminotransferase {IU/L} to non-numeric Transaminase, Heal th [Enzymatic results) Serum System activity/volume] in Serum or Plasma by With P-5'-P Albumin 4.4 Normal (applies Albumin, [facility] [Mass/volume] in {gm/dl} to non-numeric Serum Health Serum or Plasma results) System I.Phosphorus 3.4 Normal (applies I. Phosphorus [facility] mg/dl to non-numeric Health results) System Alanine 8 Normal (applies Alanine [facility] aminotransferase {IU/L} to non-numeric Aminotransfer Heal th [Enzymatic results) ase, Serum System activity/volume] in Serum or Plasma Calcium 10.0 Normal (applies Calcium, [facility] [Mass/volume] in mg/dl to non-numeric Total Serum Health Serum or Plasma results) System A/GRatio 1.26 Normal (applies A/G Ratio [facility] to non-numeric Health results) System Urate 4.6 Normal (applies Uric Acid, [facility] [Mass/volume] in mg/dl to non-numeric Serum Health Serum or Plasma results) System Anion gap in Serum 14.00 Above high Anion Gap [facility] or Plasma mmol/L normal Health System Glomerular 78.92 Normal (applies GFR [facility] filtration to non-numeric Health rate/1.73 sq results) System M.predicted [Volume Rate/Area] in Serum or Plasma by Creatinine-based formula (CKD-EPI) eGFR will provide clinicians with a more accurate indicator of renal function then the serum creatinine. The eGFR is automa tically calculated from an empiric formula (endorsed by the [employer] ion) which incorporates age, sex, and race.Clinicians may notice surprisingly low GFR's with serum creatinine valueswithin normal range- particularly in elderly wo men (with low muscle mass).In the hospital setting, the eGFR should add an element of safety in drug dosing, in assessing the risk of IV contrast administration, and in assessing vascular risk.The NKF staging system is as follows:Normal: eGFR >90 with no kidney markersStage 1: eGFR >90 with kidney markers*Stage 2: eGFR 60- 89Stage 3: eGFR 30-59Stage 4: eGFR 15-29Stage 5: eGFR <15 (usually requir ing dialysis)*Markers include: Proteinuria, Hematuria, abnormal imaging-studies, or other blood or urine test abnormalities ID Date Data Source [id number] 03/17/2020 04:10:48 PM EDT [facility] Name Value Range Interpretation Description Data Sup porting Code Source(s) Document(s ) TroponinIQuantitative 0.01 Normal (applies Troponin I [facility] ng/ml to non-numeric Quantitative Health results) System ID Date Data Source [id number] 03/17/2020 04:10:48 PM EDT [facility] Name Value Range Interpretation Description Data Sup porting Code Source(s) Document(s ) Creatine 56 {IU/L} Normal (applies Creatine [facility] kinase.MB to non-numeric Kinase, Serum [facility] Syst em [Mass/volume results) ] in Serum or Plasma ID Date Data Source [id number] 03/17/2020 04:10:48 PM EDT [facility] Name Value Range Interpretation Description Data Sup porting Code Source(s) Document(s ) Prothrombintim 10.00 Normal (applies Prothrombin [facility](PT) {seconds to non-numeric time (PT) Health System } results) INR in Blood 0.96 Normal (applies INR Result [facility] by Coagulation {Ratio} to non-numeric Health Sys tem assay results) Normal = 0.7-1.1Therapeutic = 2.0-3.0Mec hanical Heart = 3.0-4.5 ID Date Data Source [id number] 03/17/2020 04:10:48 PM EDT [facility] Name Value Range Interpretation Description Data Sup porting Code Source(s) Document(s ) Leukocytes 8.9 Normal (applies WBC Count [facility] [#/volume] in {10^3_uL to non-numeric Health Unspecified } results) System specimen by Automated count Erythrocytes 5.03 Normal (applies RBC Count [facility] [#/volume] in {10^6_uL to non-numeric Health Blood by } results) System Automated count Hemoglobin 14.2 Normal (applies Hemoglobin [facility] [Mass/volume] in {gm/dL} to non-numeric Health Blood results) System Hematocrit 44.1 % Normal (applies Hematocrit [facility] [Volume to non-numeric Health Fraction] of results) System Blood Erythrocyte mean 87.7 fl Normal (applies MCV [facility] corpuscular to non-numeric Health volume [Entitic results) System volume] by Automated count Erythrocyte mean 28.2 pg Normal (applies MCH [facility] corpuscular to non-numeric Health hemoglobin results) System [Entitic mass] by Automated count Erythrocyte mean 32.2 Below low normal MCHC [facility] corpuscular {gm/dL} Health hemoglobin System concentration [Mass/volume] by Automated count Erythrocyte 14.1 % Normal (applies RDW-CV [facility] distribution to non-numeric Health width [Entitic results) System volume] by Automated count Platelets 348 Normal (applies Platelet [facility] [#/volume] in {10^3_uL to non-numeric Count Health Plasma by } results) System Automated count Platelet mean 9.1 fl Normal (applies MPV [facility] volume [Entitic to non-numeric Health volume] in Blood results) System by Automated count Monocytes 0.7 Normal (applies Monocyte # [facility] [#/volume] in {10^3_uL to non-numeric Health Blood by Manual } results) System count Eosinophils 0.36 Above high normal Eosinophil # [facility] [#/volume] in {10^3_uL Health Blood } System Neutrophils 5.5 Normal (applies Neutrophil # [facility] [#/volume] in {10^3_uL to non-numeric Health Body fluid } results) System Basophils 0.02 Normal (applies Basophil # [facility] [#/volume] in {10^3_uL to non-numeric Health Blood by } results) System Automated count Lymphocyte 2.4 Normal (applies Lymphocyte # [facility] percent {10^3_uL to non-numeric Health differential } results) System count (procedure) Neutrophils/100 61.6 % Normal (applies Neutrophil % [place] leukocytes in to non-numeric Health Blood by results) System Automated count Monocytes/100 7.6 % Normal (applies Monocyte % [facility] leukocytes in to non-numeric Health Blood results) System Eosinophils/100 4.0 % Above high normal Eosinophil % [facility] leukocytes in [facility] Unspecified System specimen Basophils/100 0.2 % Normal (applies Basophil % [facility] leukocytes in to non-numeric Health Unspecified results) System specimen by Manual count Lymphocytes 26.6 % Normal (applies Lymphocyte % [facility] [#/volume] in to non-numeric Health Blood by results) System Automated count ID Date Data Source [id number] 03/17/2020 04:10:48 PM EDT [facility] Name Value Range Interpretation Description Data Sup porting Code Source(s) Document(s ) Natriuretic < 10.0 Normal (applies B-Type [facility] peptide B to non-numeric Natriuetic Health System [Mass/volume] results) Peptide in Serum or Plasma ID Date Data Source [id number] 03/17/2020 04:10:48 PM EDT [facility] Name Value Range Interpretation Description Data Sup porting Code Source(s) Document(s ) Sodium 142 Normal (applies Sodium, Serum [facility] [Moles/volume] in mmol/L to non-numeric Health Serum or Plasma results) System Potassium 4.4 Normal (applies Potassium, [facility] [Mass/volume] in mmol/L to non-numeric Serum Health Serum or Plasma results) System Chloride 106 Normal (applies Chloride, [facility] [Moles/volume] in mmol/L to non-numeric Serum Health Serum or Plasma results) System Carbon dioxide, 22.0 Normal (applies CO2, Serum [facility] total mmol/L to non-numeric Health [Moles/volume] in results) System Serum or Plasma TotalProtein 8.2 Normal (applies Total Protein [facility] mg/dl to non-numeric Health results) System Glucose 111 Above high Glucose, [facility] [Mass/volume] in mg/dL normal Serum Health Serum or Plasma System Urea nitrogen 9 mg/dl Normal (applies Blood Urea [facility] [Mass/volume] in to non-numeric Nitrogen, Health Serum or Plasma results) Serum System Creatinine 0.75 Normal (applies Creatinine, [facility] [Mass/volume] in mg/dl to non-numeric Serum Health Serum or Plasma results) System Alkaline 153 Above high Alkaline [facility] phosphatase {IU/L} normal Phosphatase, Health isoenzymes Serum System [Enzymatic activity/volume] in Serum or Plasma by Heat stability Bilirubin.total 0.3 Normal (applies Bilirubin, [facility] [Mass/volume] in mg/dl to non-numeric Serum Total Health Serum or Plasma results) System DirectBilirubin 0.1 Normal (applies Direct [facility] mg/dl to non-numeric Bilirubin Health results) System Aspartate 20 Normal (applies Aspartate [facility] aminotransferase {IU/L} to non-numeric Transaminase, Heal th [Enzymatic results) Serum System activity/volume] in Serum or Plasma by With P-5'-P Albumin 4.4 Normal (applies Albumin, [facility] [Mass/volume] in {gm/dl} to non-numeric Serum Health Serum or Plasma results) System I.Phosphorus 3.4 Normal (applies I. Phosphorus [facility] mg/dl to non-numeric Health results) System Alanine 16 Normal (applies Alanine [facility] aminotransferase {IU/L} to non-numeric Aminotransfer Heal th [Enzymatic results) ase, Serum System activity/volume] in Serum or Plasma Calcium 10.1 Normal (applies Calcium, [facility] [Mass/volume] in mg/dl to non-numeric Total Serum Health Serum or Plasma results) System A/GRatio 1.16 Normal (applies A/G Ratio [facility] to non-numeric Health results) System Urate 4.7 Normal (applies Uric Acid, [facility] [Mass/volume] in mg/dl to non-numeric Serum Health Serum or Plasma results) System Anion gap in Serum 14.00 Above high Anion Gap [facility] or Plasma mmol/L normal Health System Glomerular 77.70 Normal (applies GFR [facility] filtration to non-numeric Health rate/1.73 sq results) System M.predicted [Volume Rate/Area] in Serum or Plasma by Creatinine-based formula (CKD-EPI) eGFR will provide clinicians with a more accurate indicator of renal function then the serum creatinine. The eGFR is automa tically calculated from an empiric formula (endorsed by the National [employer] ion) which incorporates age, sex, and race.Clinicians may notice surprisingly low GFR's with serum creatinine valueswithin normal range- particularly in elderly wo men (with low muscle mass).In the hospital setting, the eGFR should add an element of safety in drug dosing, in assessing the risk of IV contrast administration, and in assessing vascular risk.The NKF staging system is as follows:Normal: eGFR >90 with no kidney markersStage 1: eGFR >90 with kidney markers*Stage 2: eGFR 60- 89Stage 3: eGFR 30-59Stage 4: eGFR 15-29Stage 5: eGFR <15 (usually requir ing dialysis)*Markers include: Proteinuria, Hematuria, abnormal imaging-studies, or other blood or urine test abnormalities ID Date Data Source [id number] 03/17/2020 04:10:48 PM EDT [facility] Name Value Range Interpretation Description Data Sup porting Code Source(s) Document(s ) TroponinIQuantitative 0.00 Normal (applies Troponin I [facility] ng/ml to non-numeric Quantitative Health results) System ID Date Data Source [id number] 03/17/2020 04:10:48 PM EDT [facility] Name Value Range Interpretation Description Data Sup porting Code Source(s) Document(s ) Triglyceride 97 mg/dl Normal (applies Triglycerides, [facility] [Mass/volume] to non-numeric Serum Health in Serum or results) System Plasma Optimal = < 100 mg/dLBoderline High = 15 0 - 199 mg/dLHigh = 200 - 499 mg/dLVery High = > 500 mg/dL Cholesterol 209 mg/dl Above high Cholesterol, Serum [facility] [Mass/volume] in normal System Serum or Plasma <200 mg/dL = [id number] - 239 md/dL = Borderline>240 mg/dL = High Risk Cholesterol in HDL 67.0 mg/dL Normal (applies HDL Cholestero l, [facility] [Mass/volume] in to non-numeric Serum Health S ystem Serum or Plasma results) Cholesterol in LDL 122.6 mg/dL Normal (applies Low Density [facility] [Mass/volume] in to non-numeric Lipoprotein, Healt h System Serum or Plasma results) Calculated OPTIMAL: LESS THAN 100 mg/dLNEAR OPTIMAL : 100 - 129 mg/dLBODERLINE HIGH: 130 - 150 mg/dL Cholesterol in VLDL 19.4 Normal (applies to VLDL, Serum [facility] [Mass/volume] in Serum non-numeric results) System or Plasma CHDRisk 3.12 Normal (applies to CHD Risk [facility] non-numeric results) System ID Date Data Source [id number] 03/17/2020 04:10:48 PM EDT [facility] Name Value Range Interpretation Code Description Data Mariana rce(s) Supporting Document(s ) HbA1C 6.1 % Normal (applies to HbA1C [facility] non-numeric results) System ID Date Data Source [id number] 03/17/2020 04:10:48 PM EDT [facility] Name Value Range Interpretation Description Data Sup porting Code Source(s) Document(s ) TroponinIQuantitative 0.01 Normal (applies Troponin I [facility] ng/ml to non-numeric Quantitative Health results) System ID Date Data Source [id number] 03/17/2020 04:10:48 PM EDT [facility] Name Value Range Interpretation Description Data Sup porting Code Source(s) Document(s ) Color YELLOW Normal (applies Color [facility] to non-numeric Health results) System Appearance of CLEAR Normal (applies Urine [facility] Urine to non-numeric Appearance Health results) System Specific gravity 1.010 Normal (applies Urine Specific [facility] of Urine to non-numeric [facility] results) System pH.. 7.0 Normal (applies pH.. [facility] {pH_units} to non-numeric Health results) System Glucose,UA NEGATIVE Normal (applies Glucose, UA [facility] to non-numeric Health results) System Protein NEGATIVE Normal (applies Protein [facility] [Mass/volume] in to non-numeric Health Serum or Plasma results) System BilirubinUrine NEGATIVE Normal (applies Bilirubin [facility] to non-numeric Urine Health results) System Urobilinogen 0.2 mg/dL Normal (applies Urobilinogen [facility] [Mass/volume] in to non-numeric UA Health Urine results) System Ketones NEGATIVE Normal (applies Ketones UA [facility] [Mass/volume] in to non-numeric Health Urine results) System Nitrate+Nitrite NEGATIVE Normal (applies Nitrite [facility] [Mass/volume] in to non-numeric Health Unspecified results) System specimen Leukocyte SMALL Abnormal Leukocyte [facility] esterase (applies to Esterase Health [Units/volume] non-numeric Concentration System in Urine results) Leukocytes 0-2 Normal (applies White Blood [facility] [#/volume] in to non-numeric Cells Health Unspecified results) System specimen by Automated count RedBloodCells 0-2 Normal (applies Red Blood [facility] to non-numeric Cells Health results) System Epithelial cells 0-2 Normal (applies Epithelial [facility] [Presence] in to non-numeric Cells Health Unspecified results) System specimen by Wet preparation UrineBlood NEGATIVE Normal (applies Urine Blood [facility] to non-numeric Health results) System ID Date Data Source [id number] 03/17/2020 04:10:48 PM EDT [facility] Name Value Range Interpretation Description Data Sup porting Code Source(s) Document(s ) Amphetamine Negative Normal (applies Amphetamine [facility] [Mass/volume] to non-numeric Level, Urine Health in Urine results) System Cut-off = 1000 ng/mL Barbiturates Negative Normal (applies to Barbiturate [facility] [Mass/volume] in non-numeric Screen, Urine Health System Urine by Screen results) method Cut-off = 200 ng/mL Benzodiazepines Negative Normal (applies Benzodiazepines, [facility] [Mass/volume] in to non-numeric Urine Health S yste Urine results) Cut-off = 200 ng/mL Cocaine Negative Normal (applies Cocaine [facility] metabolites.other to non-numeric Metabolite Health System [Mass/volume] in Urine results) Screen, Urine Cut-off = 300 ng/mL Methadone Negative Normal (applies to Methadone Level, [facility] [Mass/volume] in non-numeric Urine System Urine results) Cut-off = 300 ng/mL [id number],Urine Negative Normal (applies to Opiate 300, [facility] non-numeric results) Urine System Cut-off = 300 ng/mL Phencyclidine Negative Normal (applies Phencyclidine, Urine [facility] [Mass/volume] in to non-numeric Health S yste Urine results) Cut-off = 25 ng/mL THC Negative Normal (applies to non-numeric resul ts) [facility] Cutt-off = 50These results are for medic al treatment only. The positive findings are unconfirmed. Request confirmatory/quanti tative test if needed. ID Date Data Source [id number] 03/17/2020 04:10:48 PM ED[facility] Name Value Range Interpretation Description Data Source(s ) Supporting Code Document(s ) 25Hydrox 31 ng/mL Normal (applies to 25 Hydroxy [facility] yVitamin non-numeric Vitamin D Health System D results) 25Hydrox 31 ng/mL Normal (applies to 25 Hydroxy D3 [facility] yD3 non-numeric Health System results) 25Hydrox Less than Normal (applies to 25 Hydroxy D2 [facility] yD2 4 non-numeric Health System results) ID Date Data Source [id number] 03/17/2020 04:10:48 PM EDT [facility] Name Value Range Interpretation Description Data Sup porting Code Source(s) Document(s ) Erythrocytes 4.88 Normal (applies RBC Count [facility] [#/volume] in {10\\S\\6_ to non-numeric Health Blood by uL} results) System Automated count Leukocytes 10.1 Normal (applies WBC Count [facility] [#/volume] in {10\\S\\3_ to non-numeric Health Unspecified uL} results) System specimen by Automated count Erythrocyte mean 27.5 pg Normal (applies MCH [facility] corpuscular to non-numeric Health hemoglobin results) System [Entitic mass] by Automated count Erythrocyte mean 87.1 fl Normal (applies MCV [facility] corpuscular to non-numeric Health volume [Entitic results) System volume] by Automated count Hemoglobin 13.4 Normal (applies Hemoglobin, [facility] [Mass/volume] in {gm/dL} to non-numeric Whole Blood Health Blood results) System Hematocrit 42.5 % Normal (applies Hematocrit, [facility] [Volume to non-numeric Whole Blood Health Fraction] of results) System Blood Erythrocyte 14.1 % Normal (applies RDW [facility] distribution to non-numeric Health width [Entitic results) System volume] by Automated count Erythrocyte mean 31.5 Below low normal [facility] corpuscular {gm/dL} Health hemoglobin System concentration [Mass/volume] by Automated count Platelets 323 Normal (applies Platelet [facility] [#/volume] in {10\\S\\3_ to non-numeric Count Health Plasma by uL} results) System Automated count Platelet mean 9.8 fl Normal (applies MPV [facility] volume [Entitic to non-numeric Health volume] in Blood results) System by Automated count Monocytes 0.5 Normal (applies Monocyte [facility] [#/volume] in {10\\S\\3_ to non-numeric Count Health Blood by Manual uL} results) System count Eosinophils 0.3 Normal (applies Eosinophil [facility] [#/volume] in {10\\S\\3} to non-numeric Count Blood Health Blood results) System Neutrophils/100 61.2 % Normal (applies Neutrophil % [place] leukocytes in to non-numeric Health Blood by results) System Automated count Neutrophils 6.2 Normal (applies Absolute [facility] [#/volume] in {10\\S\\3_ to non-numeric Neutrophil Health Body fluid uL} results) Count System Lymphocyte 3.0 Normal (applies Lymphocyte [facility] percent {10\\S\\3_ to non-numeric Absolute Health differential uL} results) System count (procedure) Basophils 0.03 Normal (applies Basophil [facility] [#/volume] in {10\\S\\3_ to non-numeric Count Health Blood by uL} results) System Automated count Monocytes/100 5 % Below low normal Monocyte % [facility] leukocytes in Health Blood System Basophils/100 0 % Normal (applies Basophil % [facility] leukocytes in to non-numeric Health Unspecified results) System specimen by Manual count Eosinophils/100 3 % Above high normal Eosinophil % [facility] leukocytes in Health Unspecified System specimen Lymphocytes 30 % Normal (applies Lymphocyte % [facility] [#/volume] in to non-numeric Health Blood by results) System Automated count ID Date Data Source [id number] 03/17/2020 04:10:48 PM EDT [facility] Name Value Range Interpretation Description Data Sup porting Code Source(s) Document(s ) Chloride 103 Normal (applies Chloride, [facility] [Moles/volume mmol/L to non-numeric Serum Health Syst em ] in Serum or results) Plasma Potassium 4.7 Normal (applies Potassium, [facility] [Mass/volume] mmol/L to non-numeric Serum Health Syst em in Serum or results) Plasma Sodium 141 Normal (applies Sodium, Serum [facility] [Moles/volume mmol/L to non-numeric Health Syst em ] in Serum or results) Plasma Urea nitrogen 13 mg/dl Normal (applies Blood Urea [facility] [Mass/volume] to non-numeric Nitrogen, Health Syst em in Serum or results) Serum Plasma Glucose 94 mg/dL Normal (applies Glucose, Serum [facility] [Mass/volume] to non-numeric Health Syst em in Serum or results) Plasma Creatinine 0.80 Normal (applies Creatinine, [facility] [Mass/volume] mg/dl to non-numeric Serum Health Syst em in Serum or results) Plasma Carbon 24.0 Normal (applies CO2, Serum [facility] dioxide, mmol/L to non-numeric Health System total results) [Moles/volume ] in Serum or Plasma Anion gap in 14.00 Above high normal Anion Gap [facility] Serum or mmol/L Health System Plasma Calcium 9.9 Normal (applies Calcium, Total [facility] [Mass/volume] mg/dl to non-numeric Serum Health Syst em in Serum or results) Plasma ID Date Data Source [id number] 03/17/2020 04:10:48 PM EDT [facility] Name Value Range Interpretation Description Data Sup porting Code Source(s) Document(s ) Albumin 4.4 Normal (applies Albumin, [facility] [Mass/volume] in {gm/dl} to non-numeric Serum Health Serum or Plasma results) System Aspartate 17 Normal (applies Aspartate [facility] aminotransferase {IU/L} to non-numeric Transaminase, Heal th [Enzymatic results) Serum System activity/volume] in Serum or Plasma by With P-5'-P Bilirubin.total 0.5 Normal (applies Bilirubin, [facility] [Mass/volume] in mg/dl to non-numeric Serum Total Health Serum or Plasma results) System Alanine 8 Normal (applies Alanine [facility] aminotransferase {IU/L} to non-numeric Aminotransfer Heal th [Enzymatic results) ase, Serum System activity/volume] in Serum or Plasma DirectBilirubin 0.2 Normal (applies Direct [facility] mg/dl to non-numeric Bilirubin Health results) System Alkaline 175 Above high Alkaline [facility] phosphatase {IU/L} normal Phosphatase, Health isoenzymes Serum System [Enzymatic activity/volume] in Serum or Plasma by Heat stability TotalProtein 7.9 Normal (applies Total Protein [facility] mg/dl to non-numeric Health results) System ID Date Data Source [id number] 03/17/2020 04:10:48 PM EDT [facility] Name Value Range Interpretation Description Data Sup porting Code Source(s) Document(s ) Prothrombintim 12.60 Above high normal Prothrombin Mar[facility] mike e(PT) {seconds time (PT) Health System } INR in Blood 1.20 Above high normal INR Result [facility] by Coagulation {Ratio} Health System assay Normal = 0.7-1.1Therapeutic = 2.0-3.0Mec hanical Heart = 3.0-4.5 ID Date Data Source [id number] 03/17/2020 04:10:48 PM EDT [facility] Name Value Range Interpretation Description Data Source(s ) Supporting Code Document(s ) B-TypeNa 20.9 Normal (applies to B-Type [facility] triuetic pg/mL non-numeric [facility] Peptide- results) Peptide - MV MVOnly Only ID Date Data Source [id number] 03/17/2020 04:10:48 PM EDT [facility] Name Value Range Interpretation Description Data Sup porting Code Source(s) Document(s ) Leukocytes 11.0 Above high WBC Count [facility] [#/volume] in {10^3_uL normal Health Unspecified } System specimen by Automated count Erythrocytes 4.62 Normal (applies RBC Count [facility] [#/volume] in {10^6_uL to non-numeric Health Blood by } results) System Automated count Hemoglobin 11.2 Below low normal Hemoglobin [facility] [Mass/volume] in {gm/dL} Health Blood System Hematocrit 35.9 % Below low normal Hematocrit [facility] [Volume Health Fraction] of System Blood Erythrocyte mean 77.7 fl Below low normal MCV [facility] corpuscular Health volume [Entitic System volume] by Automated count Erythrocyte mean 24.2 pg Below low normal MCH [facility] corpuscular [facility] hemoglobin System [Entitic mass] by Automated count Erythrocyte mean 31.2 Below low normal MCHC [facility] corpuscular {gm/dL} Health hemoglobin System concentration [Mass/volume] by Automated count Erythrocyte 19.7 % Above high RDW-CV [facility] distribution normal Health width [Entitic System volume] by Automated count Platelets 381 Normal (applies Platelet Count [facility] [#/volume] in {10^3_uL to non-numeric Health Plasma by } results) System Automated count Platelet mean 10.3 fl Normal (applies MPV [facility] volume [Entitic to non-numeric Health volume] in Blood results) System by Automated count Monocytes 0.8 Normal (applies Monocyte # [facility] [#/volume] in {10^3_uL to non-numeric Health Blood by Manual } results) System count Eosinophils 0.15 Normal (applies Eosinophil # [facility] [#/volume] in {10^3_uL to non-numeric Health Blood } results) System Neutrophils 7.8 Normal (applies Neutrophil # [facility] [#/volume] in {10^3_uL to non-numeric Health Body fluid } results) System Basophils 0.02 Normal (applies Basophil # [facility] [#/volume] in {10^3_uL to non-numeric Health Blood by } results) System Automated count Lymphocyte 2.1 Normal (applies Lymphocyte # [facility] percent {10^3_uL to non-numeric Health differential } results) System count (procedure) Neutrophils/100 71.0 % Normal (applies Neutrophil % [facility] mike leukocytes in to non-numeric Health Blood by results) System Automated count Monocytes/100 7.5 % Normal (applies Monocyte % [facility] leukocytes in to non-numeric Health Blood results) System Eosinophils/100 1.4 % Normal (applies Eosinophil % [facility] mike leukocytes in to non-numeric Health Unspecified results) System specimen Basophils/100 0.2 % Normal (applies Basophil % [facility] leukocytes in to non-numeric Health Unspecified results) System specimen by Manual count Lymphocytes 19.4 % Below low normal Lymphocyte % [facility] [#/volume] in Health Blood by System Automated count ImmatureGranuloc 0.5 % Normal (applies Immature [facility] ytes% to non-numeric Granulocytes % Health results) System Nucleated 0.0 Normal (applies NRBC % [facility] erythrocytes {/100_WB to non-numeric Health [#/volume] in C} results) System Body fluid ImmatureGranuloc 0.06 Normal (applies Immature [facility] ytes# {10^3_uL to non-numeric Granulocytes # Health } results) System NRBC# 0.00 Below low normal NRBC # [facility] {10^3_uL Health } System ID Date Data Source [id number] 03/17/2020 04:10:48 PM EDT [facility] Name Value Range Interpretation Description Data Sup porting Code Source(s) Document(s ) Magnesium 1.6 Normal (applies Magnesium, [facility] [Mass/volume] {mEq/L} to non-numeric Serum Health Syst em in Serum or results) Plasma ID Date Data Source [id number] 03/14/2020 07:09:00 AM EDT [facility] STUDY: X-RAY CHESTREASON FOR EXAM: Haim marsh, 69 years old. intermittent coughwith thick sputum, N/V;TECHNIQUE: portable APCOMPARISON: March. __FINDINGS:The trachea is midline.The cardiac,mediastinal and pulmonary vascul ar shadows arenormal. Aorta is calcified.There is no focal consolidatio nor significant effusion.Osseous structures appearintact. IMPRESSION:Normal x-ray examination of thechest. No significant changeElect ronically Signed:Sachin Ramirez, at 8:43 [phone], Service florez pport , [phone] Name Value Range Interpretation Code Description Data Mariana rce(s) Supporting Document(s ) ID Date Data Source [id number] 03/12/2020 02:45:00 PM EDT [facility] Name Value Range Interpretation Code Description Data Mariana rce(s) Supporting Document(s ) COVID-19.. [facility] This lab was ordered by [facility] and reported by [facility]. ID Date Data Source [id number] 03/09/2020 03:01:00 PM EDT [facility] Examination:Complete sonogram of the fe male pelvis, nonobstetric.Indication:Female, 69 years old. pelvic mass;Technique:Tra nsvaginal grayscale and Doppler sonography of thefemalepelvis.Comparison:CT scan of [facility] abdomen03/08/2020 Findings:Uterus: 10. 5 x 7.5 x 11 cm. Multiplecalcified andnoncalcified i ntramural, subserosal, submucosal fibroids areseen, the largest measuring 3.8 x 3.5 cm.The endometrium measures 1.7 cm in thickness.Right ovary: Not visualizedLef t ovary: NotvisualizedAdnexa: No mass seen.Free fluid: None seen.Additional findings:None. IMPRESSION:Enlarged uterus with multiplefibroid-like masses and athicken ed endometrium. An endometrial carcinoma cannotbeexcluded.Ovaries not visualized. Electronically Signed:Hood Witt,at 15:57 EDTTel , Service support , [phone] Name Value Range Interpretation Code Description Data Mariana rce(s) Supporting Document(s ) ID Date Data Source [id number] 03/09/2020 03:01:00 PM EDT [facility] Examination:Abdominal sonogramIndication :Female, 69 years old. Nausea -T- Vomiting;Technique:Transabdominal ultras ound was performed with real-time andstatic bueno scaleimaging.Comparison:03/08/2020 CT of t he abdomen andpelvis ____Findings:Liver: Normal in size and echotexture,measuring 11 cmlongitudinall y.Gallbladder: Sludge filled, normal in size. No wall thicknessorpericholecystic fluid.Common Bile Duct : 5 mm caliber.Pancreas: Normal echotexture of the head andbody. Tail notwell visualiz ed.Spleen: Normal in size and echotexture, measuring 7 x 3 x 4cm.Right Kidney: Normal in size and e chotexture, measuring 9 cm inlength.Left Kidney: Normal insize and echotexture, measuring 9.5 cm inlength.Aorta: 2.2 cm caliber upper abdominalsegmentI.V.C.: Patent intrahep atic segmentAdditional findings:None IMPRESSION:Sludge-filledgallblad derElectronically Signed:Hood Witt, at 15:51 EDTTel ,Service support , [phone] Name Value Range Interpretation Code Description Data Mariana rce(s) Supporting Document(s ) ID Date Data Source [id number] 03/08/2020 07:51:00 PM EDT [facility] Chest radiograph (one view)CLINICAL INF ORMATION: dysphagia;TECHNIQUE: Portable view of the chest was obtained.FINDINGS: No previous examinations are available for review.The lungs are clear. Nopleural a bnormality is seen.The heart size is normal. The mediastinum appears intact.IMPRESSIO N:No evidence of active chest disease.Electronically Signed:Asim lucero, at 20:13EDTTel , Service support , [phone] Name Value Range Interpretation Code Description Data Mariana rce(s) Supporting Document(s ) ID Date Data Source [id number] 03/08/2020 05:41:00 PM EDT [facility] CT Abdomen and Pelvis with IV contrastCL INICAL INFORMATION: Generalized abdominal pain. TECHNIQUE:Contiguous axial 5 mm i mages were obtained from a single helicalacquisition through the abdomen a ndpelvis during theintravenous administration of 100 ml of Omnipaque 300. Oralcontrast was also administered.Sagittal and coronalreformatted images were also obta ined. This scan was performedusing automatic exposurecontrol (radiation dose reductio nsoftware) to obtain a diagnostic image quality scan with patientdose as asreaso nably achievable. The DLP is 583 mGy-cm.FINDINGS: No previous examination s are available forreview.The lung bases are clear. There is a moderate hiatal herni a.The liver demonstrateshomogeneous attenuation without focallesion or abnor mal enhancement. Hepatic size and contours aremaintained.Hepatic and portal veins a re patent and displaced. The intrahepatic ducts are not dilated. There ismilddila tation of the common bile duct and pancreatic duct. Nofocal pancreatic lesions are se en. Thegallbladder is intactwithout calcified calculi or wall thickening. T he spleen isnormal in size.Theadrenal glands are intact. There is mild righthydronep hrosis. Left kidney appears unremarkable..Nosuspicious renal mass is found. No renal, ureteral, or bladderstones are seen. The bladder isunremarkable. The uterus isenlarged and demonstrates multiple fibroids some which arecalcifie d. There issuggestion of a 3 cm endometrial massversus submucosal fibroid.No enlarge d lymph nodes are found. Noascites is present.There is mild thickening of the ascending, transverse, anddescending colon.. No boweldilatation is seen. No signific antinfiltration is found adjacent to bowel. No obstruction,perforation orabscess is recognized. 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 There are no worrisome osseous lesions.IMPRESS ION:Moderate hiatal hernia. Mild dilatation of thecommon bile duct and pancreatic du ct. Abdominal ultrasoundmaybe obtained. Mild right hydronephrosis likely related to anenlarged myomatous uterus. Suggestion of anendometrial massversus submucosal f ibroid. Pelvic ultrasound is recommended. Mild thickening of theascending, transve rse and descendingcolon which may be related to underdistention. Mild colitis isnote xcluded.Electronically Signed:Asim Marcus, at 18:34 EDTTel , Servicesupport , [phone] Name Value Range Interpretation Code Description Data Mariana rce(s) Supporting Document(s ) ID Date Data Source [id number] 03/08/2020 05:38:00 PM EDT [facility] Name Value Range Interpretation Code Description Data Mariana rce(s) Supporting Document(s ) COVID-19.. [facility] This lab was ordered by [facility] and reported by [facility]. ID Date Data Source [id number] 03/08/2020 02:05:00 AM EDT [facility] Name Value Range Interpretation Description Data Sup porting Code Source(s) Document(s ) SARS [facility] coronavirus 2 RNA This lab was ordered by Nereida márquez/Zach and reported by [facility]. ID Date Data Source [id number] 02/26/2020 05:14:00 AM EDT [facility] Patient Name: JAVED GARCIAGOODJHONATAN ANEMRN: [id number] Computed TomographyACCESSIO N EXAM DATE/TIME PROCEDURE ORDERING PROVIDER [facility]-20- [id number] 02/26/2020 05:[address] Soft Tissue Neck Laurenceglzoe LAFLEUR, Auth (V erified) W Mariia Reed son For Exam(CT Soft Tissue Neck W) Other (Add Reason to Special Instructions)Repo rtPROCEDURE: Computed Tomography Soft Tissue Neck With ContrastCLINICAL HISTORY: Nec k Pain, Trouble Swallowing After Esophageal DilationCOMPARISON: None.TECHNIQUE:Comp uted Tomography of the soft tissues of the neck was performed following the intrave nous administration of contrast. Two dimensional reformatted imaging was obta ined in sagittal and coronal planes.FINDINGS:CRANIAL VAULT:The visual ized intracranial soft tissues are unremarkable.SKULL BASE/MASTOIDS:The sku ll base structures and mastoid air cells are unremarkable.ORBITS:The visualized orbit al soft tissues are unremarkable.PARANASAL SINUSES/NASAL FOSSA:The visualized paran melanie sinuses are clear.The visualized nasal fossa structures are unremarkable.SALIVA RY:The salivary glands are symmetric.ORAL CAVITY/PHARYNX/LARYNX:The oropharynx, ba se of tongue, and floor of mouth structures are within normal limits.The hypopharynx , larynx and subglottic airway are within normal limits.THYROID:The right lobe of the thyroid gland is asymmetrically larger. The patient has a prior CT neck from 01/06 at which time the right lobe of the thyroid was also similarly asymmetricall y larger, with nodularity which is not well visualized currently likely due to diffe rences in technique.LYMPH NODES/VASCULATURE:There is no suspicious cervical lymphadenopathy.The vasculature is normal in caliber and enhancement.BONES: There are degenerative changes in the cervical spine including severe disc spa ce narrowing at C5-C6.TRACHEA/LUNG APICES:The visualized portions of the trachea and l mary apices are unremarkable.IMPRESSION:No acute process identified in the soft tis sues of the neck.Thank you for allowing us to participate in the evaluation of this pa tient. Final Dictated: Yas Hines MD 02/26/20 05:09Signed: Yas Woods MD 02/26/20 05:14Transcribed by: NAC Name Value Range Interpretation Code Description Data Mariana rce(s) Supporting Document(s ) ID Date Data Source [id number] 02/26/2020 05:09:00 AM EDT [facility] Patient Name: JHONATAN OROZCO ANEMRN: [id number] Computed TomographyACCESSIO N EXAM DATE/TIME PROCEDURE [facility] [id number] 02/26/2020 05:[address] Chest W Vj LAFLEUR, Auth (Phillip adkins) Mariia CampbellReason For Exam(CT Chest W) Other (Add Reason to Special Instructions)ReportPROCEDURE: C omputed Tomography Chest With ContrastCLINICAL HISTORY: Chest Pain Af ter Esophageal DilationCOMPARISON: None.TECHNIQUE:Computed Tomography of th e chest was performed with intravenous administration of contrast. Two dimensio nal reformatted imaging was obtained in sagittal and coronal planes.FINDINGS:ERICH T OF NECK:The right lobe of the thyroid gland is asymmetrically larger, nonspecific.ARGELIA NGS/PLEURA:There is mild respiratory motion artifact.There is a minimal scattered at electasis.There is no evidence of pneumonia.There is no pleural effusion o r pneumothorax.TRACHEA/BRONCHI:The trachea and central bronchi are patent.LYMPH NOD ES:There is no significant axillary, mediastinal or hilar lymphadenopathy.HEA RT/VASCULATURE:The heart is normal in caliber. The pericardium is unremarkabl e.Coronary artery calcification is not present. Please note that mild coronary artery calcification can be obscured by the presence of IV contrast and non-gated te chnique.The thoracic aorta is normal in course and caliber.ESOPHAGUS:There is a small hiatal hernia. There is no detectable periesophageal fat stranding or fluid.TARUN KACIE:The bones are grossly unremarkable.UPPER ABDOMEN:There is a 1.4 cm hyperenhancing nodule in the left lateral segment of the liver on axial image 44 which is unchang ed from 12/14/2015 and therefore considered benign and statistically most likely a h epatic hemangioma. Other etiologies including hepatic adenoma or focal nodular hyperpl eda could also be considered.IMPRESSION:Small hiatal herni a.No acute process identified in the chest.Thank you for allowing us to parti cipate in the evaluation of this patient. Final Dictated: Yas Lucas MD 02/26/20 05:03Signed: Donny LAFLEUR, Yas Brink 02/26/20 05:09 Transcribed by: NAC Name Value Range Interpretation Code Description Data Mariana rce(s) Supporting Document(s ) ID Date Data Source [id number] 02/26/2020 02:55:00 AM EDT [facility] Added by Discern Rule GLB_ADD_GFR_CMP Name Value Range Interpretation Code Description Data Mariana rce(s) Supporting Document(s ) eGFR-AA >90 >=60 NO [facility] mL/min/[address] The MDRD 4-Variable IDMS traceable Equat ion for non- individuals is used to calculate the estimated glomerul ar filtration rate (GFR). To estimate the GFR for Americans, multiply the prov ided GFR result by 1.16. The MDRD 4-Variable IDMS traceable Equation is validated in individuals 18 years of age or older. It is less accurate in patients with extremes of muscle mass, restriction of dietary protein, ingestion of creatine, extra-re nal metabolism of creatinine, or treatment with medications that affect renal tubul ar creatinine secretion.GFR Categories in Chronic Kidney Disease (CKD)GFR Category : GFR (mL/min/1.73 m2): Interpretation: G1 90 or greater Normal or high* G2 60-89 Mild decrease*G3a 45-59 Mild to moderate [id number] 30-44 Moderate to severe decreaseG4 15-29 Severe decreaseG5 14 or less Kidney failure eGFR-SUDHIR >90 mL/min/1.73m2 >=60 NO [facility] The MDRD 4-Variable IDMS traceable Equat ion for non- individuals is used to calculate the estimated glomerul ar filtration rate (GFR). To estimate the GFR for Americans, multiply the prov ided GFR result by 1.16. The MDRD 4-Variable IDMS traceable Equation is validated in individuals 18 years of age or older. It is less accurate in patients with extremes of muscle mass, restriction of dietary protein, ingestion of creatine, extra-re nal metabolism of creatinine, or treatment with medications that affect renal tubul ar creatinine secretion.GFR Categories in Chronic Kidney Disease (CKD)GFR Category : GFR (mL/min/1.73 m2): Interpretation: G1 90 or greater Normal or high* G2 60-89 Mild decrease*G3a 45-59 Mild to moderate [id number] 30-44 Moderate to severe decreaseG4 15-29 Severe decreaseG5 14 or less Kidney failure ID Date Data Source [id number] 02/26/2020 03:23:00 AM EDT [facility] Name Value Range Interpretation Code Description Data Mariana rce(s) Supporting Document(s ) INR 1.3 ratio 0.9-1.2 [facility] Indications INRProphylaxis of venous thromo-embolism: Non-hip surgery..... ..........................1.5 - 2.5 Hip surgery................................. ..2.0 - 3.0Deep Vein Thrombosis or Pulmonary Embolism........2.0 - 3.0Prevention of s ystemic embolism in valvular heart disease, tissue prosthetic heart valvesor acute NM.......................................2.0 - 3.5Prevention of embolism in mechanical heartvalves or recurrent systemic embolism.............3.0 - 4.5 PT 14.6 second(s) 10.2-12.9 [facility] ID Date Data Source [id number] 02/26/2020 03:03:00 AM EDT [facility] Name Value Range Interpretation Description Data Sup porting Code Source(s) Document(s ) Glucose Lvl 126 65-99 [place] mg/dL [facility] BUN 2.6 6.0-20.0 [place] mg/dL [facility] Creatinine 0.63 0.40-1.0 [place] mg/dL 0 [facility] BUN/Creat 4.1 7.0-29.0 [place] Ratio ratio [facility] Sodium Lvl 139 136-145 [place] mmol/L [facility] Potassium Lvl 3.3 3.5-5.1 [place] mmol/L [facility] Chloride 109 98-107 [place] mmol/L [facility] CO2 19 23-29 [place] mmol/L [facility] AGAP 11 5-15 NO [facility] Calcium Lvl 9.4 8.6-10.0 [place] mg/dL [facility] Total Protein 6.9 6.0-8.3 [place] gm/dL [facility] Albumin Lvl 3.6 3.5-5.0 [place] gm/dL [facility] Glob 3.3 2.0-4.5 [place] gm/dL [facility] A/G Ratio 1.1 1.0-2.2 [place] ratio [facility] Bili Total 0.9 0.3-1.2 [place] mg/dL [facility] Alk Phos 115 IU/L 38-126 NO [facility] AST 24 IU/L 15-41 NO [facility] ALT 15 IU/L 7-40 NO [facility] ID Date Data Source [id number] 02/26/2020 02:57:00 AM EDT [facility] Name Value Range Interpretation Description Data Sup porting Code Source(s) Document(s ) Neut Auto 67.1 % 50.0-80.0 NO [facility] Lymph Auto 20.2 % 14.0-44.0 NO [facility] [place] Auto 9.3 % 0.0-12.0 NO [facility] Eos Auto 2.3 % 0.0-7.0 NO [facility] Baso Auto 1.1 % 0.0-3.0 NO [facility] Neut 4.7 2.0-8.4 [place] Absolute x10(3)/[facility] Lymph 1.4 0.6-4.8 [place] Absolute x10(3)/[facility] [place] 0.7 0.0-1.1 [place] Absolute x10(3)/[facility] Eos Absolute 0.2 0.0-0.5 [place] x10(3)/[facility] Baso 0.1 0.0-0.3 [place] Absolute x10(3)/[facility] ID Date Data Source [id number] 02/26/2020 02:57:00 AM EDT [facility] Name Value Range Interpretation Description Data Sup porting Code Source(s) Document(s ) WBC 7.1 4.0-10.5 [place] x10(3)/[facility] RBC 4.99 3.80-5.20 [place] x10(6)/[facility] Hgb 11.8 11.4-15.1 [place] gm/dL [facility] Hct 37.0 % 36.0-46.0 NO [facility] MCV 74 fL 80-98 [facility] MCH 23.7 pg 26.0-34.0 [facility] MCHC 31.9 32.0-36.0 [place] gm/dL [facility] RDW 19.2 % 11.0-15.0 [facility] Platelet 291 150-400 NO Health System x10(3)/[facility] MPV 7.9 fL 8.5-13.0 [facility] ID Date Data Source [id number] 02/26/2020 02:44:00 AM EDT [facility] Patient Name: JHONATAN OROZCO ANEMRN: [id number] General DiagnosticACCESSION EXAM DATE/TIME PROCEDURE ORDERING PROVIDER [id number] 02/26/2020 02:25 EDT XR Chest Portable Vj LAFLEUR, Auth (Ve rified) Mariia Mckeon on For Exam(XR Chest Portable) CoughReportPROCEDURE: Radiograph Portab le Chest 1 ViewCLINICAL HISTORY: CoughCOMPARISON: Chest radiograph 2019TECHNIQUE:Anteroposterior radiographic view of the chest was performed.FINDINGS :The lungs are clear.There is no evidence for pleural effusion.There is no evidence fo r pneumothorax.The heart is unremarkable.The mediastinum and hilar soft tissues are u nremarkable.The bony thorax is unremarkable.There is oral contrast in t he colon in the left upper quadrant. This was also present previously.IMPRESSION:No ev idence of acute pulmonary process.Oral contrast in the splenic flexure of the c olon, also present on prior radiograph 02/18/2020. Correlate for delayed colonic transit or interval administration of oral contrast.Thank you for allowing us to pa rticipate in the evaluation of this patient. Final Dictated: Yas Lucas MD 02/26/20 02:41Signed: Yas Hines MD 02/26/20 02:44 Transcribed by: NAC Name Value Range Interpretation Code Description Data Mariana rce(s) Supporting Document(s ) ID Date Data Source [id number] 02/26/2020 05:27:00 AM EDT [facility] [id number]} [facility] Patient: MARIELA ROME Age: 69 years Sex: Female : 1950 Associated Diagnoses: Dysphagia Author : Pablo Montaño Basic Information History source: Patient, EMS. Arrival mo de: Ambulance. History limitation: None. Additional information: Chief Complaint from Nursing Triage Note : Chief Complaint 02/26/2020 1:47 EDT Chief Complaint Chief Complaint . History of Present Illness 69 y.o.f pt w/ a PMHx of GERD, HLD, HTN, MAURICIO, asthma, and anxiety presents to the ED via EMS for evaluatio n of trouble swallowing and SOB secondary to mucus accumulation in her throat with as sociated right sided neck tenderness that onset earlier this month. The patient lema s been unable to swallow or cough up the sputum collection in her throat. The pat josefina has been evaluated several times in the ED this month due to the symptoms in the aforementioned. The patient denies headache, fever, dizziness, LOC, chills, sweats, n umbness, tingling, congestion, chest pain, abdominal pain, nausea, vomiting, diarrh ea, urinary issues, and any other associated symptoms. FULL PPE WAS WORN DURING EACH ENCOUNTER WITH THE PATIENT Review of Systems Constitutional symptoms: No fev er, no chills, no sweats, no weakness, no fatigue. Skin symptoms: No rash, Eye symptoms: Vision unchanged. ENMT symptoms: No sore throat, no nasal congestion. Re spiratory symptoms: Shortness of breath, cough, Sputum production: Yellow. Cardi ovascular symptoms: No chest pain, no palpitations. Gastrointestinal symptoms : No abdominal pain, no nausea, no vomiting, no diarrhea. Genitourinary symptoms: N o dysuria, no hematuria, no excessive urination, no urinary incontinence, no u rinary retention. Musculoskeletal symptoms: Muscle pain (Right sided neck pain), No back pain, Neurologic symptoms: No headache, no dizziness, no altered level of consciousness, no numbness, no tingling, no weakness. Psychiatric symptoms: Neg ative except as documented in HPI. Endocrine symptoms: Negative except as documented in HPI. Hematologic/Lymphatic symptoms: Negative except as documented in HPI. Al lergy/immunologic symptoms: Negative except as documented in HPI. Health Status All ergies: Allergic Reactions (Selected)Severity Not DocumentedAmoxici llin- No reactions were documented.Azithromycin ophthalmic- No r eactions were documented.Compazine- No reactions were documented.Cranberry- No reactions were documented.Flu vaccines- Pneumonia.Grapes- No reactions were docu mented.Latex- No reactions were documented.Latex Exam Gloves MISC- No re actions were documented.Lipitor- No reactions were documented.Norvasc- Tachycardia.Ome prazole- No reactions were documented.Penicillin- Rash.Propranolol- Asthma.Shellfish- Rash.Sulfa drugs- Rash.Zithromax- No reactions were docume nted.. Medications: (Selected) Documented MedicationsDocumentedVentolin HFA: 2 puf f(s), INH, QID, 0 Refill(s)Vitamin D3 2000 intl units oral tablet: 2,000 IntUnit, 1 tab, Oral, Daily, 0 Refill(s)aspirin: 81 mg, Oral, Daily, 0 Refill(s)busPIRone 15 mg oral tablet: 15 mg, 1 tab, Oral, TID, 0 Refill(s)lorazepam 1 mg oral tablet: 1 m g, 1 tab, Oral, Daily, PRN: as needed for anxiety, 0 Refill(s)nitroglycerin 0.6 mg /hr transdermal film, extended release: 1 patch(es), TOP, Daily, 0 Refill(s)ondans etron 4 mg oral tablet, disintegratin mg, 1 tab, Oral, TID, allow tablet to dissol ve on tongue, 0 Refill(s), per nurse's notes. Immunizations: Per nurse's notes. Past Medical/ Family/ Social History Medical history: No active or resolved past med ical history items have been selected or recorded., GERD, HLD, HTN, MAURICIO, asthma, and anxiety . Surgical history: EGD - SN (None) on 02/22/2020 at 69 Years.Comments :02/22/2020 12:28 EDKylie Barajas RN-populated from documented surg ical caseEGD - SN (None) on 02/15/2020 at 69 Years.Comments:02/15/2020 14:56 EDPerfecto Rosas RN-populated from documented surgical caseEGD - SN (None) on 12/02/2018 at 68 Years.Comments:12/02/2018 18:54 ELIESER Isaacs RN, Kiersten Walterciera lateal from documented surgical casethyroid nodule removed.. Family history: Cancer MotherFatherBrotherSister. Social history: single. Problem list: Active Problems ( 10)Acid reflux Angina pectoris Anxiety Asthma Chest pain Hyperlipidemia Hypertension O bstructive sleep apnea Pre-operative cardiovascular examination Shortness of breath , per nurse's notes. Physical Examination Vital Signs Vital Signs 02/26/2020 1:47 EDT Temperature Oral 98.9 DegF Systolic Blood Pressure 146 m mHg HI Diastolic Blood Pressure 96 mmHg >HHI Heart Rate Monitored 94 bpm Respi ratory Rate 18 br/min . Measurements 02/26/2020 1:47 EDT Clinical Weight 59 kg Body Mass Index Measured 24.56 kg/m2 Body Mass Index Measured 24.56 kg/m2 Height/ Length Measured 155 cm . Basic Oxygen Information 02/26/2020 1:47 EDT SpO2 100 % Oxygen Therapy Room air . General: Alert, anxious, no acute distress . Skin: War m, dry, normal for ethnicity. Head: Normocephalic, atraumatic. Neck: Suppl e, trachea midline, no tenderness. Eye: Pupils are equal, round and reactive to light, extraocular movements are intact. Ears, nose, mouth and throat: Oral muco sa moist, no pharyngeal erythema or exudate. Cardiovascular: Regular rate and rhythm , No murmur, Normal peripheral perfusion, No edema. Respiratory: Lungs are clear to auscultation, breath sounds are equal, Symmetrical chest wall expansion, Respir ations: Tachypneic, Cough: Mild, productive (yellow sputum). Gastrointestinal: Sof t, Nontender, Non distended. Back: Normal range of motion. Musculoskeletal: Yamileth l ROM, no deformity. Neurological: Alert and oriented to person, place, time, and situation, No focal neurological deficit observed, normal speech observed. Psych iatric: Cooperative, appropriate mood and affect. Medical Decision Making Docume nts reviewed: Emergency department nurses' notes, emergency department records, luis or records. Orders Launch Order Profile (Selected) Inpatient OrdersOrderedNS Jackson us: 1,000 mL, IV Infusion, OnceSaline Lock: Ordered (Dispatched)ABO/Rh: Antibody Scr een Gel: CBC w/ Auto Diff: Comprehensive Metabolic Panel: PT/INR: Ordered (Exam O rdered)CT Chest W: CT Soft Tissue Neck W: XR Chest (CXR) Portable: . Results review: Lab results : Lab View 02/26/2020 2:30 EDT WBC 7.1 x10(3)/mcL RBC 4.99 x10(6)/mcL Hgb 11.8 gm/dL Hct 37.0 % MCV 74 fL LOW MCH 23.7 pg LOW MCHC 31.9 gm/dL LOW RDW 19.2 % HI Platelet 291 x10(3)/mcL MPV 7.9 fL LOW Neut Auto 67.1 % Lymph Au to 20.2 % [place] Auto 9.3 % Eos Auto 2.3 % Baso Auto 1.1 % Neut Absolute 4.7 x10 (3)/mcL Lymph Absolute 1.4 x10(3)/mcL [place] Absolute 0.7 x10(3)/mcL Eos Absolute 0. 2 x10(3)/mcL Baso Absolute 0.1 x10(3)/mcL INR 1.3 ratio HI PT 14.6 second(s) HI Glucose Lvl 126 mg/dL HI BUN 2.6 mg/dL LOW Creatinine 0.63 mg/dL eGFR-AA >90 mL/min/1.73m2 eGFR-SUDHIR >90 mL/min/1.73m2 BUN/Creat Ratio 4.1 ratio LOW Sodium L vl 139 mmol/L Potassium Lvl 3.3 mmol/L LOW Chloride 109 mmol/L HI CO2 19 mmol/L LOW AGAP 11 Calcium Lvl 9.4 mg/dL ALT 15 IU/L AST 24 IU/L Alk Phos 115 IU/L To rose Protein 6.9 gm/dL Albumin Lvl 3.6 gm/dL Glob 3.3 gm/dL A/G Ratio 1.1 ratio Osvaldo i Total 0.9 mg/dL . Radiology results: Interpretation: Reason For ExamCoughRep ortPROCEDURE: Radiograph Portable Chest 1 ViewCLINICAL HISTORY: CoughCOMPARISON: Chest radiograph 02/18/2020TECHNIQUE:Anteroposterior radio graphic view of the chest was performed.FINDINGS:The lungs are clear.T here is no evidence for pleural effusion.There is no evidence for pneumo thorax.The heart is unremarkable.The mediastinum and hilar soft tissues are u nremarkable.The bony thorax is unremarkable.There is oral contrast in t he colon in the left upper quadrant. This was also present previously.IMPRESSION:No ev idence of acute pulmonary process.Oral contrast in the splenic flexure of the c olon, also present on prior radiograph 02/18/2020. Correlate for delayed colonic transit or interval administration of oral contrast.Thank you for allowing us to pa rticipate in the evaluation of this patient.Signature Line Final D ictated: Yas Hines MD 02/26/20 02:41Signed: Yas Hines MD 02/26/20 02:44Transcribed by: Scott document has an image Result type: XR Chest PortableResult date: February 26, 2020 2:25 EDTResult status: Auth (Verified)Result title: XR Chest PortablePerformed by: Yas Hines MD on February 26, 2020 2:41 EDTVer ified by: Yas Hines MD on February 26, 2020 2:44 EDTEncounter info: [id number], [facility] [place] . Radiology results: Interpretation: Reason For Ex amOther (Add Reason to Special Instructions)ReportPROCEDURE: Computed Tomography Soft Tissue Neck With ContrastCLINICAL HISTORY: Neck Pain, Tr ouble Swallowing After Esophageal DilationCOMPARISON: None.TECHNIQUE:Comp uted Tomography of the soft tissues of the neck was performed following the intrave nous administration of contrast. Two dimensional reformatted imaging was obta ined in sagittal and coronal planes.FINDINGS:CRANIAL VAULT:The visual ized intracranial soft tissues are unremarkable.SKULL BASE/MASTOIDS:The sku ll base structures and mastoid air cells are unremarkable.ORBITS:The visualized orbit al soft tissues are unremarkable.PARANASAL SINUSES/NASAL FOSSA:The visualized paran melanie sinuses are clear.The visualized nasal fossa structures are unremarkable.SALIVA RY:The salivary glands are symmetric.ORAL CAVITY/PHARYNX/LARYNX:The oropharynx, ba se of tongue, and floor of mouth structures are within normal limits.The hypopharynx , larynx and subglottic airway are within normal limits.THYROID:The right lobe of the thyroid gland is asymmetrically larger. The patient has a prior CT neck from 01/06 at which time the right lobe of the thyroid was also similarly asymmetricall y larger, with nodularity which is not well visualized currently likely due to diffe rences in technique.LYMPH NODES/VASCULATURE:There is no suspicious cervical lymphadenopathy.The vasculature is normal in caliber and enhancement.BONES: There are degenerative changes in the cervical spine including severe disc spa ce narrowing at C5-C6.TRACHEA/LUNG APICES:The visualized portions of the trachea and l mary apices are unremarkable.IMPRESSION:No acute process identified in the soft tis sues of the neck.Thank you for allowing us to participate in the evaluation of this pa tient.Signature Line Final Dictated: Yas Hines MD 0 02/26/20 05:09Signed: Yas Hines MD 02/26/20 05:14Transcribed by: NACREPREYNALDO TThis document has an image Result type: CT Soft Tissue Neck WResult date: February 25 020 5:01 EDTResult status: Auth (Verified)Result title: CT Soft Tissue N freddie WPerformed by: Yas Hines MD on February 26, 2020 5:09 EDTVerified by: Yas Hines MD on February 26, 2020 5:14 EDTEncounter info: [id number], [facility] [place] . Radiology results: Interpretation: Reason For ExamOther (A dd Reason to Special Instructions)ReportPROCEDURE: Computed Tomography Chest With Contrast CLINICAL HISTORY: Chest Pain After Esophageal Di lationCOMPARISON: None.TECHNIQUE:Computed Tomography of the chest was performed wi th intravenous administration of contrast. Two dimensional reformatted imaging was obtained in sagittal and coronal planes.FINDINGS:ROOT OF NECK: The right lobe of the thyroid gland is asymmetrically larger, nonspecific.LUNGS/PLEURA:There i s mild respiratory motion artifact.There is a minimal scattered atelectasis.There is n o evidence of pneumonia.There is no pleural effusion or pneumothorax.TRACHEA/BRONCHI :The trachea and central bronchi are patent.LYMPH NODES:There is no significa nt axillary, mediastinal or hilar lymphadenopathy.HEART/VASCULATURE:The he art is normal in caliber. The pericardium is unremarkable.Coronary artery calcificati on is not present. Please note that mild coronary artery calcification can be obs cured by the presence of IV contrast and non-gated technique.The thoracic aorta i s normal in course and caliber.ESOPHAGUS:There is a small hiata l hernia. There is no detectable periesophageal fat stranding or fluid.TARUN KACIE:The bones are grossly unremarkable.UPPER ABDOMEN:There is a 1.4 cm hyperenhancing nodule in the left lateral segment of the liver on axial image 44 which is unchang ed from 12/14/2015 and therefore considered benign and statistically most likely a h epatic hemangioma. Other etiologies including hepatic adenoma or focal nodular hyperpl eda could also be considered.IMPRESSION:Small hiatal herni a.No acute process identified in the chest.Thank you for allowing us to parti cipate in the evaluation of this patient.Signature Line Final D ictated: Yas Hines MD 02/26/20 05:03Signed: Yas Hines MD 02/26/20 05:09Transcribed by: Scott document has an image Result type: CT Chest WResult date: February 26, 2020 5:01 EDTResult status: Auth (Verified)Result title: CT Chest WPerformed by: Yas Hines MD on February 26, 2020 5:03 EDTVerifie d by: Yas Hines MD on February 26, 2020 5:09 EDTEncounter info: [id number], [facility] [place], [place] . Notes: FULL PPE WAS WORN DURING EACH ENCOUNTER WITH THE PATIENT . Reexamination/ Reevaluation Time: 02/26/2020 05:21:00 . Vital signs per reji hudson's notes Course: improving. Pain status: decreased. Assessment: exam improved. No ally: Patient is lying in bed well-appearing and with improved symptoms. The patient states she is swallowing better and she is able to tolerate her secretions. Discuss ed lab results and imaging results with the patient and informed her of the unremark able findings. Discussed plan to d/c the patient home with a rx for Claritin and potassium chloride and instructed the patient to follow up w/ her PCP and GI MD in 3-5 days. Additional verbal discharge instructions discussed with patient incl uding strict return precautions. Patient understands and agrees with plan of care . All questions answered.. Impression and Plan Diagnosis Dysphagia - [id number] R13. 10, Discharge Plan Condition: Improved, Stable. Disposition: Discharged: Time 02/26/2020 05:27:00, to home. Prescriptions: Launch Meds List (Selected) Prescription sPrescribedClaritin 5 mg/5 mL oral syrup: 10 mg, 10 mL, Oral, Daily, for 10 day(s), 1 00 mL, 0 Refill(s)potassium chloride 20 mEq/15 mL oral liquid: 20 mEq, 15 mL, Or al, Daily, 600 mL, 0 Refill(s). Patient was given the following educational material s: Dysphagia (Adult). Follow up with: Jesse Muñoz Within 3 to 5 days Please follow -up with your GI doctor for further evaluation and additional treatment of y our difficulty swallowing. In the meantime we recommend trialing Claritin, 10mL onc e a day to see if this helps dry up some of the mucus in your secretions. Additiona lly your potassium level was low, we do recommend taking 15 mL's of potassium on ce a day. Please return to the emergency department if you develop worsening symp toms, unable to swallow, unable to eat or drink, return of your trouble breathing, any new symptoms or any other concerns.; Clary Morejon Within 3 to 5 days. Couns eled: Patient, Regarding diagnosis, Regarding diagnostic results, Regarding treatment plan, Regarding prescription, Patient indicated understanding of instructions. Addendum Attestation: Scribe Attestation: Pablo Montaño, 02/26/2020 01:55:00, Scr ibing for and in the presence of,, Mariia Zabala MD02/26/2020 02:22:04 Comm ent by: Odalys Daily reg was done verbaly w/ shannon lan consent to all in cluding telehealth, Ins pcp and pharmacuy verified.no to pt portal Odalys Daily [address] [place] [address] [id number] edicaid AJIT [id number] sign ed by Pablo Montaño 02/26/2020 05:27 EDT Vj LAFLEUR Mariia HookerKeaton Name Value Range Interpretation Code Description Data Mariana rce(s) Supporting Document(s ) ID Date Data Source [id number] 02/24/2020 02:26:00 PM EDT [facility] Name Value Range Interpretation Code Description Data Supporting Source(s) Document(s ) Discharge Luke [id number] QKJeL [facility] - [id number] G9iag [place] [id number] eXBlL [place] 2J2jPTaE6J 5cGUv Medical Cg4osM3BBL NlRm9 Passadumkeag yjW1BDZq9Q XRpY2 KfUW7bl2Nv bmcvV 4smON5xfGM uY29k qN2eJn8UZJ 5kb2J qCjIgMCBvY moKPD wvRmlsdGVy L0ZsY XMzAVUeo3W lL0xl ufp4cLUjUP 4+c3R yZWFtCnicK +QCAA GyNUcNBP1c c3RyZ WFtCmVuZG9 iagoz YFZqd0QjJn w8L0Z ofZCgor4Hr GF0ZU UgG75cTQ6B ZW5nd GggNzA+PnN 0cmVh zBp6lBXF2A rk0o/ INFQwNFAIS eNyCu EyVDAAQkMF I1MLP XNTBQtDPQs jhZBc Oc0UxGVHHN OF/DQ TC58JVS1ZE K5ALg M4dI8MFyBh ZHN0c mVhbQplbmR vYmoK FLKoSI1ufk o8PC9 ExIe6FAQmB mxhdG VEZWNvZGUv TGVuZ 5JrDROpHy8 zdHJl XT8NrVne2C IAAO4 AfAplbmRzd HJlYW 3CPZ6sk8Ng CjUgM CBvYmoKPDw vRmls aGKsM2DsNI RlRGV vw7VhO8ubz md0aC A3MD4+c3Ry ZWFtC nicUwjkKuT Sj8g0 UuP3UBiX51 IK4TJ UMABCQwUjU ws9c1 UFF4T9VbQJ kFwuj ERT9KZOB9T 8NAVj zZAsLtcQrk AuALT XZyOWLG0wz 3RyZW LcVnLwEA4p ago2I RObb7CdCla 8L0Zp fMAgsb9UzO F0ZUR nE06rKJ0HI W5ndG ggMTA+PnN0 cmVhb Fd2ySsfFnL A7gB8 KyHbLVK4vy VhbQp lbmRvYmoKN yAwIG 3oylt9XH9N aWx0Z XIvRmxhdGV EZWNv ZGUvTGVuZ3 RoIDY 4Fp7gvGOxY W0KeJ oSQVQh3RAF yDRQM DRQCEnjcgr hMlQw AEJDBSNTCz 1zUwU HAc2PP8GZK C6NgM F2XST8kjvC sWZIF pdrCFcgFwC 0Rg3Q SmClJVI6am VhbQp lbmRvYmoKO CAwIG 7vgjh5HQ4R YWdlT N1sIT2Qs5R Ob25l F63jmCTpHE kgMCB XX2W5pSAtW 2F0YW jiBz7ZbVBa aW5lc yAxMCAwIFI vUGFn ZXMgMTEgMC BSL1Z pZXdlclByZ WZlcm UpG5LqJNHj IDAgU j4+CmVuZG9 iagox ZSLtLO5syo o8PC9 LaWRzWzEzI DAgUl 1eKGorYU3C YWdlc z9Wy6AhqZV zL0lU BUKePz5eHp cpPj4 CTJ2jl5PxN jEwID Qko5QsYjo5 L0Nvd Y39VQNpSta yc3Qg MTQgMCBSL0 xhc3Q gMTQgMCBSP j4KZW 2tf4FcOjE9 IDAgb 2JqClsvSUN DQmFz ZWQgMTYgMC BSXQp lbmRvYmoKM TYgMC BvYmoKPDwv Rmlsd DJaX3ZrUZW lRGVj j1AnI7bgoc d0aCA aRPw3H63hQ z4+c3 RyZWFtCnic nZZ3V FPZFofPvTe 9UJIQ tvTAk4nKCm gNvUi RLioxCRBKw JAAIj ZEVHBEUZGm CDIo4 SDfN0SvDsq FAVGx 6wQZRNRxcB Qblkl krRnfvHnvz ZvfH/ d+a5+9z91n 733Wu gCQ/IMFwkx YCYAM xYwQ4vrInO 2LZ2A HAQzwAANsA OBws7 NCFvhGApkC fNiMb JkT+Be9ug4 g+fsq 0z+MwQD/n5 S5WSI xAFCYjOfy+ NlcGR tZTN6LpHG1 T8mYt jRNzjBKziJ ZgjJW c3YeFGx53f llDzn uBpB7Oewyr uJl8O TcJ+ONORK+ jJFgG DidIPt2Ep9 mY4N0 SYZAxm/ksR l8TjY AKJLcLuZzU 2RsLW OSKDKCLeN5 AOBIy V/v3i0VhJ0 Tyw/F zsxaLhIkp4 gZJlx Dxt7MN5cra 89N54 qEsKZMP33y 4jHYm RlZHOFyAGb P/FkU dO0EfjO49F g5ODB tLW2+KNR/X fybkv g4qv1Ka+4Z RB/4w /ZXfpkNALC mZbXZ +odtaRUAXe sBULv 8c38oPhFRh r51Dn 2sBqp9DeHH 4ixnK 4bl8SfNKB2 rKS/o 7/mfIq9JM9 zPUr7 d7+VhePOTO JJ0MU PrS41vgrWI xMjO4 rG3WIhua/g fB/51 HhYR/CS+iC +URUT EyfymVEq1X 8gTiA WZQoZA+J+a +A/D/ vUPeDdR5ir R0JZY AqUhGkB+Hg AoKhE mOBpjG2Kga QvGRw G3pWdSaAlj +8+C/ n1XuEz+yBY kf45j V5YkkKOAvq ya/Fo CNCAARUAD6 kAb6A JOxJN4nKN2 AA/gA wJBKIgEcWA x4IIU kAFEIBcUgL WgGJS HiLUfjHG0r BE0gz ZwGHSBY+A0 OAcug ctgBNwBUjA OnoAp 8ArMQBCEhc gQFVK HdCBDyByyh ViQG+ QDBUMRUByU CCVDQ kgCFUDroFK oHKqG 0qBg0XqlPV QaugA JW7vbVRxX+ hV6By MwCabBWrAR bAWzY G09KH7DI1L J8DI4 Uw1Jd4UIqU N8EO6 CZ4VG5TJAJ j+Bpx KAFJR5kbdw ERbCR kKReCQJESG rkBKk OzwY8oFcrI +5iki Fn3jwJBLMB TFQTJ HEhg3KyqKo lqFWo TajqlEHUJ2 oPtRV 1ChqCvURTU Zros3 VzncMrIx6S Z2LLk ZXoJvQHeiz 6BH0O CsKBbYoA2i xjhh/ TBwmFbMCsx mzG9O OOYUZxoxhp rFYrD rWHOuKDcVy sGJsM zMIvjC4Qyf FO459 shOolJS1GF 9cPE6 DP5TM4OlhR 3BXcB A6DdwT0xEp jA/F8 /QW4FL0Kpy Pfgg/ im2jTNXMWk 6ESEI jNZ6kkcYKX Eu4S3 bCIZC3iY2N cKKAu IZYSTxEPE8 cJb4l UUhmJDYpgS QhbSH pJ34o6TZ1D JPJRm ZBvtoWMX4A biafI c3ui6MnVtb qBCjw LMTj5Xr4Vm xReKa YZyIH8OLap JivWK E5OYWV9cyE XslIi f6HSBdqISD 0VOmG 0rQyVdlGOV Q5Q3m zcovyBeVHF CzFiO QW5UQNFMsz ZyhjV COcV8ECurR 11Ebq Bgn9YAPbhe XQUmm wuM8sc0MsY YqKnU x7Ck2Beriv FSkdo RvRA+jp9DL 6Yfp1 +jtVLVVPVb 7qJtU 65Ajyc7Vss Hmo8d FV4RwKLlAi qTPUf sLL1Zjsi7g f00Bp mGmEa+Rq7N E4q/F 1Is8Naouuq JI5h+ bp6vZ3aCMi NFdo7 aOa0PjZ7pp y08rS qtI6o/VUm6 7toZ2 ghMD0wWawD lXHTU pbc4GadU9p hgrDk 1GLgLC7YwU 0NXX9 mFZ15psZqs N6xnp XzqK47Oy38 An6LP 0k/L93iqmS BjoGI CEBXv1Rmb2 xhizD WNDarl6Ci9 2MjWK WLqi3RF3tR jMOMM 43bjW+a0I2 cTdZZ jZcus7CO1j yTTPd bXrZDDazN0 sxqzE bMofNHcwF5 rvNhy 6AFj3WKdsT ixtME tOTmcNsZY5 a0i2D LQstuyyfWR lYxVt ts+q3+mhtb 51u3W o0y5HpI3iH aNNj8 3ttsQ6Ncft 22lzy XN+5q+d2z3 1uZ27 Aj9nzd5Lxj h9iv8 G+1/6Dg6OD yKHNY dLRwDHRsdb xBovG HwEcPr92Il t5Oa1 1Hod97siUD ex82P sPM0VXogoU y6N5x hP43cyzvrf quXJc 059cehi0WF e9blJ 7CPmUj4E3I w99D5 1Lc6tGh9pg qudBz 5nr8t4zyz0 v12xn 9kr2KW/E28 +7xHv Qh+AS0BTcy 99Xzz sYl5F1xc/e b4XfK X+0f5D/Nv8 bAVoB 1YQbyEuXe4 CVgX1 BpKAFQdVBD 4LNgk XBPSFwSGDI 9pC78 w3nC+d3hYL QgNDt offCjMOWhX 0fjgk AC21JsvquC 1EQ0b +AumDJgpYF ryK9I oyn63OGDNv ieqMV kqSue8Cfc7 jHlMd JG34xP4Jlr tOIE8 Y0o9Xso+Ob 4qcX+ wgljIC2wN9 hOOH6 IuNFeYsuLN ZYnL7 4+BLFJZwlR xLRiT GJLYnvOaGc Bs700 oCltUunuGz uLu4T ngdvB2+S78 ov508 woYvPQk9Po k3enj vT9z9KozDW wBZUC 56n+qfWpb5 OC03b n/HgTBc2NJ OXkZh lRHcRrsp1S rUz8z GJc5wjmwMx y5yX7 Ac1CAeHTVG D2Yuy u8U02c/UgM REsl4 sshIFS1YvQ jc690 csfc4dn9M4 2fJNy yfyffO/XoF awV3R T7LxfVUxdB Xnyvp A0Ozos4vV0 68uWj 2+xm/NgbWE tWlrf zw6JzygtRk uZl1P rOrMhyDr2W 7rW4s UttPDFzw5o KjbiN hc3Zx0hr6c qk0fS 8psJ5dxXyo K32/m al06gj0ApC 992pK 0ZbDMoWzPV sxW4d xg15c5NKkI Ls8vH 4wgvm3aK2I HyY6X N7nteNZtS4 G3i7B LsktaGVzZX WVQtb YhoNFT8YsE V017r CjfifbMz7l 7r+zx 1VMMq8RCRx dur2D vzXq/+s4Go 4aKfZ d1GjcjUfN8 9n/N+ ef1SpQdcRm DfuF+ 2FRNV61Hfw 3NLZo sVo7ys9X96 mDCwc vfeH/T3cZs q2+nt 3fgIzxgzh9 /m/jt 3iXRq0rFdH 60fWf 6VQ6ApbJtM +pc3j kLhvFp1J1z Hj4ae MS9e5Oo30x L7/cf 8z5Jm2msqA kJwom gE58R6m+cP pV16u wr4MIacDq9 75yJP JIpA0pb4Dt Q2fPn fM+i6atbQ4 ne9fy oR01Wpw3eM ey65H Cpc8B+oOMH +x86B b4CT6hfy6s vO13u WG48mNTV+5 XTV72 ogkhDeX8Av PyR4e tR12/eSLgh vcm7+ ehW+q3nt3N uz9xZ cxd9t+Se0r 2K+5r 3G340/bFd6 iA9Pu j6MzDdeQZ0 Y9yxJ z9l//R+vOg h+WHF lZ6G8gBxA0 cmfSc gW766nIxO0 pOZp8 U/K/9c+8zk 2Xe/e GwvWCJ6Cb9 c9PzT r5tfqL/Y/9 LuZe9 21CD0ScikE l6XvF F/c+At623/ u5h3E rC798HrLj+ Yfuj5 ZWPw2hoYI6 9+A/e E8/uQCE7nk 3RyZW LsKsHuFR7s agoxN oYvLF9ugux 8PC9D b9edhlRvXC NlL0R ldmljZUdyY XkvSG LrA5c2QPX4 L1N1Y eF4xFAnBH8 hZ2Uv RmlsdGVyL0 ZsYXR yLYQtt7DiQ 1R5cG BeBT8cbgFp dC9Xa CM1jSCgXQV vQml0 v1UpvuEevG BvbmV xsPD4S3wwr md0aC AyOD4+c3Ry ZWFtC qph3mIpFNZ AAMKg /qlnDB+gAA AAAAA jRayrht6ZN W5kc3 RyZWFtCmVu ZG9ia goxOCAwIG9 iago8 FT7Xm9icrf NwYWN kZl0AK1EQF XNlZC AxNiAwIFJd L0hla WdodCAyOS9 TdWJ0 rEPwV5elXI dlL0Z biARavd3Yi GF0ZU TeH75kQU1G eXBlL 3iXIokmH8J vRGVj n1AlEHTobX M8PC9 Ya7a5mS1sQ DE4Mi 5Te1rmsyJd My9Qc jEfxOU4o0M gMTUv Bsu0j8Yhcm NvbXB szqNlbHY9H j4vV2 lkdGggMTgy L1NNY GHnNAG4PZS gUi9C aXRzUGVyQ2 9tcG9 hFJ68UOwmK W50ZX Hup7fgdFRv dHJ1Z Y0TWR2qvUg gNDA0 NT4+c3RyZW FtCnj y2NfFXCWP9 sdv4i MqVgO8Qelw mrVlc 8EljhPjxEh CjIor rnJ4SjU9VZ 0CGgI oqLQGoQM9c qqAgD yD1GfPQfTE wyYBZ VERUFFBQEC URWCq biJy8YLN3I 9+x3f c4tJddj5M8 frVvf 507yt4v2eN RQ/K+ csbyYa7TYX 1WMXk xJXyh6+uf9 dv18W pC7SxF5NvH 9x7+K jn/4gE1vhO 9E2DP Denice++wHfC4 xC9M3 PTVpmVdPz7 O+RpE SheZUzEu6f IjaRK I/Y54QDUjD 2HEs/ fD5lMoFTIQ 44yQo LDNCT2LXvV 7OLLi 9/tdIUKeCJ hMU6S SLvHVrt3hr x6sPh sOkozDNec6 2gDWW 8TNN/eBDB1 B02eo Qg8h+4xHJL a1lC3 VEkN59hDum 09jCv Edy3lM4jop 5mppX tdryLKgzQZ 8PJO7 dMo4SamH0g xpedf /qm1q/2COE qVQw9 HXJK6Xvc+r 2XeQE UKeAngDmeQ GROea M6ZvshSoVi EImn8 Mueller+GmLQyxM JoMSO SA+/81GRPy XmVMc 1IAIu9xStK hca10 qupp7SoCns 6+zl4 5xy8WNAcBY Q+RC7 nVZP03+mg+ zPcYc kZUHooHABC Vqam6 F1AZk/wwgM GA6zd X/9zcFiKFm 7EWEd rIQtDnoZAT mDXO/ 9sYAmOUBKv T2jvb L8LNzpomSJ CALkS /7YMr4t8z2 11aQj xrg9LWo54j G+dDg 2PukDtNsye 5g0BG goJNRWPHX5 8PMKd sl90qfuSf2 5YsRo frnDvMIzbV CmCUA Zfrr7/2yXV Ggx5O KyAqLCJhGt uH/Ie tebkiRSMeM GSJ3a +tBgQxzPGH ByNoI wSHE1MNI5y 9xPsx pCTCVst0+9 SUROf 1/hci/d0pH ZOX+G FBjISdxzEd mz9lC iLh6NDFa8Z oE+si wfS6tl1Jnn NU+AU VwpJfdgrL/ snzsp mrHcmgo9c1 n9FeL vQ18dnm4hK EGFSZ pjxV2LqJSi tHDPd FbfF8tC2Xz galk0 KcbbgvKLam WHxEj 7tcH6N6p5I yB4da w/q1HT5JS6 bndIT Jph5oQUNmb PVi+7 zToMoDoRlh 1Ii7z mvzWfNL+BJ Rc8Us JFJRwjdg+9 9ptlI ghl/PuYkmX E5RYM H8Nv1ClXEV orb5v vC/Drd0f3d faxmb Jd1Zyhv0b3 WCS/Q gOPGWgj4zi vaPtP 3OHLRPYy1f gwmEw LI95R1u/rq DrWVt vfCHHwjTRi GYLSO uEFvRssRl3 OKaFp 7gBM5TKXii CBOcP a9XdUJ0ZRa j89Mc QkCedxWC8i HFCdi fx3TwNWA+I vPis6 78JzoMmHa+ 2qeRL xdXyIBKYUP yVeZy pdTK+Plugt Va4/l RPsxAC2Uvo p5jTi TeGInLzTjN 2PFZn IrUcCZVo79 PeiCT DGXe1eCKQT Cj+OT hszfIgrPaV NynQc sEZGYFeKco Bc69V q2dLp8HmrY PgY5p V26pYjo2+m R8uE4 THH9soZ18Q 0Afae FWVBDtA8FT WUPHc DSTDBFdYwO jp6Ri 0aK/fAQUXI DrHZJ DFz9KmEOe0 d5QkO gc3neof8oL /Re1w SANdHszxIK wI2vB rrxmRLvGLv jpmiM zbFgyqjPHL eBLXi Sa+oMpetid k4MWY pHDN1yYoT3 XnZ91 QYPSs8kMJF wPkDz KaWm8bflXR x8k3b 1QQj0Eocah Fee6g TubGpVY9qG Ihu2q hgTwC3XS3V TjLOd /Xx7Ws5hJt b4utv GUh1VX+WOZ rcVjB 2LwLfwiAyc 5oPvD CHWJMetDvo OmGoh j+ukJ6aDlB ZBclC IDoZQfI1Zl /FA1q nI++EAyiUx +Nl+M TlS/JzWQXZ nDhoJ cIhQkhj64E aARnr fkmKI7QECP RoQRm ggpK/9yqH9 RL/JS DxlG8pDRzt vtBvw 9NSMnw6PSQ +Es+3 pKI3sUpxGV HpKHp qRgRG/7lER BBObO GC+XkJckwj CyOfI k6O/hckTzz PeNrX 1vRl8lFEca lpWpf lIgq/iabqO fRqhV 02biCIMMlf 74nBN 6lJYS7ljbP mKDGD ftTJdNIb5k NoEpD 3rdV4M2hNC V3ket WiqJIbE3et H/sKq HexIiMJFfn eEwxO tUkkFSS8YS /uab3 4E1D1f5/+V JHBUQ qkm/EtX7SA mE7rg 5X5U51XSHy SbxcD R/wzvq72Nk kP4fI FMZ9z7iGD3 FEjVV ccX/or5V36 1AMQp LlpBvTE4jH 52Dat NgeZwvlRGS 7Qwp2 4/qCf+4U9l 1cdfA sHqwMRArLa 8QyXA DXxQd3HODC +gzpf QVoR2cw++n e9Zlz V0hjUq97d4 iJlvG GI5at37qOm B7fxD LK62wJ+3TR wJMlO v2iy6Z+6YP d4+BR +cUXoCWIBu PofUl 5opweUA0BA gQ+11 rq4J3vQfeI 3XL6F SJCZJZVSd8 6EVmH 91/5h2Omjp IZXMR xqL2dhkVDh UdEiB my1PhO3z93 wSkNT KnxEUvxH5U qUwKR t4hnL2VLXN Ryf7S Y7bsQhPZA9 8xOFE AvHVRKyX3p jDAuu KSD1rZRu5F tpPVS As3K/ZF4Xj XY+FLOREZ 1kuK/rW2Tb aRYB4 9e8KWaIO/Z HvJKE DCG6TeX6eH YJBci H7vdA9NTRs Hbi6S KvAj/s51n+ y7uOJ j9XLIRvobA 4xqEi KPPJTRSdFE QKvnq N23zlk6xIQ JiBaN E7bv+CzMJo 4Yuqj L0UezsdNh7 WUReQ O7jmilcVbG 6MckJ iTJBIBD8hf u28L4 dymiwtppOR eFmmC ut3TAgRdVY hlzsp m6duWsn2xG ak8S1 L9SWtlora5 /ivS1 dnulvMXIi0 tgkBZ HNtolYNiFT zyAPM vW7dvD+ERh PxqZG JzgOfNTyfc E41iN fgqZphtt/H MNfNy JZmn7TDToF x+2to 63YFJTfNdo TjqQJ WpoMYbbet4 HYjb8 ZBrqwh9fcm 8jag9 FIeCJvt/5g jJzDn GHsjRWuNsd tgHlf AJGNKMPXxU Y4l3V yKCl0AC7XD TekCD UcDB0kQ4Ap V7wwI meaWDZqn5r LEJkF pXXyd/rarb sTlwv g/rMlPE8zo WvqzZ y/y3K0gzr0 vMiJm RBqXHF59uQ jvrx1 EWUKXvqqtL Kqey/ lRWxEXkSL4 xte1D Ssw5wHbTCx uGK1O 2rFgsd1vwf PRWSH H9pItFNJLi ETqyi 8aaO5tvXgC p/Ywl nKUfK6As1j o8FyV yAM3afPbVm PnohN xn97xOTA3C 1ygqg WqUjtfNYxY uPknH En09VGfC5h JFAcR CeQ4HISptN I9Jft Iu3nfZcT1H k5Jfe 61QFZ2YY5j he0WN aqrXB6h0eF MoIub 1Ye8CiyGfB wBZvA zUGGUI0l9/ Xb92E dUJTUFGQ7D PO3hY i+O5NYp7bE 1zOc+ uvwtjskviQ i3zue z2VSajcG4G rW5jo evzhiYyNzU alNjc 1NQNLI24ka wEwu4 fPos7OF6oX S8RyR /jzxWuUDnN EgsTy PJk8/i2/W3 rorZc llI3FdPp8T 8o0qH AN3IrVX9At ol9Ii Wuuk7/Tiug iiUoW GzUsxXD5yf 0QcFN VYeSWSVQow FJUcC X9JIOuGjVk JoQcU aEjBLDYLlP VGjrB YjEjpsEnv9 0eT5F 6XAqXAsC8C JDlV7 junCt09Y01 ySKst ggcaXlH4JK GG7JD tA5JBHXt8A nG1xt 5jUCnhgyWe WNZos y16O6if9Vn 7I+ds CZY+ZFUaXq XC/AE TAb5sg8Pu0 9IRcQ vIEyNCCxxO i6itP dUTZiT8fuW JwOu8 h1py4DBAzm 56p7Z epl07n/XLP U32md LYXnD7Pt9Z VNH2G EKkU+Lez36 MwA6G IGX1/G0xV2 Q1pqz 3ugddFk/Gl bIamY jo8b+xiJbf Y0dnl IH6joSjrWi ItBpu LwhGXjwT0j 94gp4 DWVHx3wMsa PDHLf yxnw5/h5Ok 7D1zv scDubKa7kK 9QB5U rcktrcTpzD xvUCK f+22xLee8C W/R/c pLAxWytIlo A6Ibm jgzmG0yMRL TfyxT BT2lA5YuTg L8YeL gH7OlwINg6 OqqBi sl/4bET1/t jcb5N 1pYqtTfeKk Dt0Ar co7t8acG5T cfP2k T6BEi8TogM m7xnl MvCrSgLLQi 47JL8 EemWhxBmCS p8Ino 0JNssWNn77 Df2sV ny7Bd19AxC agy9d HsFhvA0ILU wqUsA LZkeq2EnQW rVHGd cjITPsYpPT 2ofy1 8l6SRF0hw2 jAQG6 wTgMiAGZQr 5Q+k2 5NIwcqRyLR iXSiv rCuravCPK1 Jc4Y1 MuIm7BhdQo BaMNt 2CecErvPBp e69kO YKMqUjDNyp TvnOI uK3zhN5hEe fQT+W AOvlkXAleu qFF8D EWMHr21LT3 ppA2W DCoDPErLx0 0sdBZ axPWd/FubS Mc9cl nqx1OJVdlL Z1Kbs cYO62bLyx/ u9zC6 e2r1XwJJ/f Euy2o DgF3OQtGD9 Jg/NW G5obMAWCk9 pB4eA ELBhx2kuuG eCOK4 ILflU90H7p zA+ab dqfUkWV8CU /TKRQ Fx/2L/dwBU jHL6v TR944xzYBA 3Hl4i WQQFWVQ33S Qq1G8 9ZaZM5Ssy3 /2Pa2 tDSlWJ/xxl xpddZ X/zmMXFYyP A1ihn 3QGyg2W6if E7iVx AqY9bY6z63 RvMA0 +Q8mvgk263 HgysC yga6/3t2Sl NTS3y CbMfp0CmEs gPNlo b0hHR+9U0Y N/BwP +p3PWgZL6+ IRVUy /qs4lu5IeW 7oLHq 68TT2gRGdG pMIfe 0Db3ktqHQO eMPpE TY6coEo7kq GTxjr iCcxMtLmig bqNAx semVqfARCf 46Kjx /sWFCfd4Ve KuwkQ RPFT9mT3x0 uoUBb 5mI/MQmOAG c+mtT a8McI6Le5t fqM6a auRjdjRNe1 0g/P0 uaILoa5Z0T T2770 T/KRf7LRrd F97fZ H1+DyWzr80 vtKxt H9UmLrY3CC qbW3Z Dqs016rLNd Qp13C JFeY7VcClc upfx7 N8/uWZcN3f GWHn8 eHz/Jm1pVf 17i3l o/U4z8vPgz Fh9r9 nUOvln1/5X 76Nmb qQLDG1rbMp v0l1C WMgGZTdYwF t3MPa +yLGvsUzc5 ZzRd+ 8B9+zvHdMs Gb3Rn NMr0Rx9oJ+ oWX0N fiZnrD+UVN f4dFT uhHryjwlLv eF9K4 Pmf8n9ZXRC Sz8i1 217GZ1ANZj Y6Y+/ zNWiIlfvEd EraWt qW2A+by89J TVPlr gbrFhbUK56 QJeK/ 1nUUg1eGMM gSxIx Bzm2brYw0A 8/9cQ fD/rsFQn5o K4MYJ fGYqId9xjd aRX2z tkhuQ5x0fi 7wqru 6BQI90Vutw v3HpV BJkT2rfj5O k0KaL ozxW508pz1 FpFXd dyoeghKVJy V6LGO nchsa3/6Fp G3h+R R3/rP1oTPw MaKge K2nirDCoiD 3wSZr NA/0lpSiz1 kvEXk 0CHNZ68FyQ XAdQg Rww4wQLdSb mRLTv Kb0v+3iLwu mfKgO euePKnbh3b frJ7/ R0rnBg4ZUH 5kc3R yZWFtCmVuZ G9iag hhZCObDM1g ago8P S4Lsq06zWu 8L1Mv VHJhbnNwYX JlbmN 2Q6oyrAM6N S9LIG WwmHDaQ0WV IDE1I DAgUj4+L0N vbnRl bnRzWzYgMC BSIDI pFOGjCsG0A DAgUl 7vYUpqOF6K YWdlL 3Wsg902hhU lczw8 J5NqrS8uX4 BhY2U 0II5EYTYbz Wx0Uk pQWDC1TCBr Uj4+L 8Dbv1AXMLZ gWy9Q FHGhM0RoyU QgL0l tYWdlQiAvS W1hZ2 YUYA7NnADt ZUldL 1mUWcmjV5Z 8PC90 NvM9LNQ6IR AyMSA fAALtjN5sE DEyND cgMTggMCBS Pj4vR u2xgIx0J6w lQm8g MjIgMCBSL0 hlbHY gMjMgMCBSL 1hpMC QyULYuSm5N ZU9iI ZH2GIXmLr9 UaVJv MCC6GNJpVb 4+Pj4 vJPGbIP09P DEzID DeBi6ILAHe YUJve FswIDAgNjE yIDc5 Ml0+Pgplbm RvYmo KMTMgMCBvY moKPD mkJ3ybg8cz OSAwI FIgMjYgMCB SIDI3 CPGoVr8mYL lwZS9 NBLyqfm8Nm 3VudC WxL3TisoCh dCAxM SAwIFI+Pgp lbmRv YmoKMjEgMC BvYmo TBVrsZ0Kem XA8PC 6ND1DkYW1s cGFyZ N2vzX0LY6p vSUND QmFzZWQgMT YgMCB SXT4+L1N1Y nR5cG RpQt2tkH9N aWx0Z XIvRmxhdGV EZWNv YWPmZJY9iw l4WzE gMCAwIDEgM CAwXS 7KpAOwJ4eK YmplY 0OnYp6knQA 5cGUg AV7SUZGjsF JjZXM 4BP2Kqd5uD 2V0Wy 1EYDIdONU1 dC9Jb WFnZUMvSW1 hZ2VC P9xyJJfnAA 0vWE9 cczQncOv7B 2ltMT YmBuV0JZP8 IDAgU j4+Mt2zRxA veFsw IDAgMTgyID I5XS9 DUN5bsUliV jA+Pn B6asHlbSw7 nNPPz IZ4FPHzAYy wyQcA FBgDDAplbm RzdHJ eKC2HRX4cu 2JqCj ZcVEIwc1It Cjw8L 8PcnOHsrp0 GbGF0 QVXyX08cAI 9MZW5 ndGggMzIxN z4+c3 RyZWFtCnic xVtbb 6z0SX3tZmT gDzsG PcsVBi9T1Z l1XMS r82sccjfMP pboGT CrdGHG7ag/ fQ8pi aSuHkkBmiC xbuQ5 ZIiiAUNS7u 3BjqY g+Jg3hpIag mJrlm mtzeh6aq+/ yLbYw JrhKstE+fs v9HP2 ZSV2YEx4ar ga1hH D9HFwztLkL fF/x6 9u5ILiHqg8 3bzwc Ug1y7DbHwR Cymb/ q9D4030wd/ 6tbP7 5t4TbYu33e Oiuap s/bH3WK5w7 NbefG G6Nrku2GZl jE31X MGqQsVXsMB JXvp/ zlDaoaUe6o yyG1m WheaQcwzYQ xr0ES a5i8OdO9W6 zxUYL G927J4Bh17 OS7cg abx9qQQT3A lTd3p D1P2nh8k0d 6NPqa zb09toYP1l hTw8P e4z6k6q3JY 1e3l1 9XvXyYermX Nn8dg vrBBT5B1E7 NIDs6 Of6mSpZB9M LSHXz GHl+P1km5T lUlw/ XQ/1zc19nH 9XEEg I7RtNQ6TqU 1ovQX OFZTiWvtzN FA2V5 YLeDurJcfb pFPJ4 pJlok+Xb3t SBHDm kIKsOmMMvP /6yus IPwsL54bx3 ox1kc cVn0zRA3fX vm7uH zUCiyaIidR Wt9o/ +1WptuG/x6 Obw8B 42Acti7df3 T9cDS GXsttR6S5e I7Fxr SUL/tQG6aS WR5t7 48qDE3ykjP kuI4q qVNpPBEDgk N4wZa ZCKofMtJym /vlv3 UIfXCGucwY Nkmdi 9eaH7fJ29o 8EiXB 10APc2IzS5 5GbnY kYmWc0LDnS Momxe oCmrL8g0Pb Yarm9 SnZ1YHU9k5 1Y9qg LDboGuphqU xwptd qDMnqHz6em js4Sd b3xUiIl5/h AF8EI z7yoLjOTqC xi8sr KMK6stXXh7 ncfX2 dRf6O/4pn/ cAkID 4ksjzOCAcM JR5kj 9KQLP5uJ/m A9YZK Jt1mFcd9b1 nioUW SltPz5awR4 I+z5E PjRO+EgApY lEZAY 0UnwLAaqJ1 qjZVC UfihwcqRh7 mDxHx UlJThN/F2k fiRRk D8w5a5C+92 NsSWc GCbaOrs9me e/zqC 6VQ67mXaKp o9rkO VqoOmqMJjm Bj17V XbAZMa0U62 4wAFO b9oz6KUCwz IbmH5 3JoNUDDpmr YDoKn 60LTR2O8X1 N/5x2 7NFUaaE7sl wOBvL R3fAW95dp2 Rfh1x j8ZAWTKFmy 0VXNd Za+EeVPX3l Omukp U3RU/ourr4 v9I2c HUr8o/lBhM wOL/n s9dxqewR2b uuDrH jorZDJgNfV XWlME CxUR7e0UVh iFR6a 7jOjbnOZIf VqyxM RXbvXyaBlY tGAjp CLHJ+e1Mjm Wx7ev ZoBE6gyzL5 0KelF XNaDZ1Pe6z TeO0r w1SPMYBYW8 DGeIV 77rSYcxtl1 PZTzQ XXiPXwVNh+ c3v96 iWIo6fp+6H 4AL6C RTHeWUtqdm zKK9p hQdw+o+7m5 WAklA NPXbNw4wQ2 L27/p ynFH0YDglg OjWvI 2VH6cdR+vd PsFjI cxfx702g+k oIv6/ cKaBEUa6MI HwJB3 InrNOEsmEO jcfV0 28PT/c8C36 md6fV LWg+9VUUh9 tkz8q 4E47nk5/XD GZ8OF orjiW62tG8 fCdya jq4tIGe+HL Gy6A6 mcEFOXieyk 7lvW3 Yog69KK7c0 wLL+u 0620CPabR7 mzCQV cBIAUdrYvP yEq0+ 29rC3CT481 Rtzgt KQ09O4pnA4 HqMeR GnV/YNc7Uv 0Umud htOU40Hpmd funi3 Zx4UbnZfWG AUL7f TWM233/dHA iZIKP mCfF/Re2ZS eGsJS 3y1MqTxtm+ o5Mqk Nrcd24EOn3 OX+NT 0adIGILLEu qGKf0 sD9vN8uDos F8N1A eE45kWerMe eGRap F649h5w4x5 Rw8YT 1Hof9mct4Q DPhXX LlR+953zfw Ct3wc mvRzqbJ1Wx HLsJp 0uNtdifC3d DbJXn RYrxaaBs19 uR0Us Q7U6JzZ03t wOOTi Od/9D6N1nr Ef7Ix hBugVPdLM+ +8NP4 1K+7v5MThx nMcUI pxugON0Zue CjMhN 9/LRcneKds j2cv9 bG8qgoHWiA b8eQA 3Mt3E1QJLl qJIpz gqzLHMs7DH W2NyL /geSlNLrGc J55V0 Ck5xIkDwqk KJWG6 s64mwGiLJX lRG4G HZMcwonF7F vBvU5 R4ixKQb5bw U9Km2 si0fnwR6uI XfQaf 08RiLOV93o PXJus UvNedScLtI Cg9Ce QHIWVJfIz5 X3S5Z S7FjdYmUBE hhyCx 1x7cqsEk4h NWkpS 5vdw2g88nM +bMsZ vtJdR4E22h K8nZw Vs3HOx2l5+ xMtA/ PA+ayioifH ZOYbk pRLD8pgE4z wh1IO waUzMhyp/H wn1F/ BtnATiMzjZ XGMAh 3L4fnqxIwC PO6az V8/v+iSt0x Z1nUz 9OmbpvTjep 9PF4p mkK2tcwfiA aEbpo jEZVuYsluv xV41E H3HyMANkPB YakI2 c6qDd5NPGJ tvr5Z u50AiHdrBi iGV87 UuZvjpbkx4 EtHsx ICM52txx26 Or8K9 jPg5oL5CC6 KjQGa Gg0LtmMocE Cvm9p VZWW9uOboz tI2Tv UiIyr3rvvr NjZUT 1oGhOVpMKK bqaDq lVEtXdv8WH xBgK4 Xr3YMywnEj jDecq S3KyF+6Ici Fi+Pr RAKBn1cQbQ IQZAj 2ESOHHlOLm 8KlLE Q60c9avVTS 2z2Rn ChufbUOqu2 k5YSg HX42BGjRyA yZeB1 4Sw2NxsWux s1LYz BV+OjpObIL tYdJe qSUHVCvB0G gk1zz pU4rV7DEuK pE9cG H2DrOIOjXf rHY8L dt7z5ooRwo qFjwD kpGRMYNQer NmBYT t46mQlKH2J 8TW85 5/o25kzqcx IX6UB CB1H54GN0y X390B 0QxgW8N9S9 A3Vgf 8dgVPXwdvV UnpPr xSt1T6c+Benji XDAWH BNgak2lZJ4 4YeDw Be/EAa9GxD TZMj2 +D5UHsJUiL BVP5H YpoGPoxRkj k1yta Ba3WA0ITTv B7WQF hCya4Tmbqd Yfnsv Hx7BmHOSJR LVWgz 4KKPeea3X5 Tdl5V ojPgHUCE3K P3xil FgI6S4KBtX pGO6L pvoKN8odlu NqZZL pAdS/I78TN KEmhw SbdYo1OuMN IXZG5 6mAil3fG8t 2eniw J4Te5X9uOm tMauX I0S5xWxJBK dUst5 pjD2z8mzAm t3Vlz eTxhX2cxbJ M4kRw tdpFnXEyYz TnWGW ppJXgN8jdl i4xwR 1nOfd5omJS 8ipkg HcU0hj5hS6 zEObN eC5pj7sXVP qKN3x OAM2/8zsoq PvxeY u+zxRlLCLV 6lXQ6 c/tm7qiwwy B9YyR iOaNREqQwh Pi6Oh uZKH9fxuIY m7COH XTdy9gCPzl KxsT4 UtUG4CMSzK pj4cj kUB+SOE6oF EzAkw F67nB7NGqq K6zDi TL2fzsRd+o OePhR OpFImZCzUp pmJLe hleLTeCC3s tOsJ1 XTdiKtbYyJ Yxtry HhkW1R0OB9 JyYuT Zz5SaFDztB QGiSt uBnkMSkCEx lSYEK 2+pSoeigPx NhlJa BY1xbcv+n9 KCmUE WEDr9TjEDH HIiaa VYdivSz/Ci luoCO pJ8xVSJYAt xHbBF zdo1EHes/J T4lNw LAy8cebIVs uTy2Z CX8PLZm0YQ 5oytO j9ZV/DPpC9 ffFbt Wvf5XiY0Rh hs2Il zJqlJt9QKE H+KL7 mRifH8fC2z rwFXy CW4yiTkDkB PhzFn uMz6/tqnXW snHxM vGSB+7xpRM Tfldd rhebGUaR6m 85M4h Yet75Kwyoa fXM9s 9UoutIkHcS Pgdya ZmXeMv1H2F /bAZj fpynscXtgs jIpOA fBo5MC8QAy q7sJQ IzFR0hiYVx 09M41 H4LQ+DVGJc nMeVt vC5xZee234 5Q7m/ XyMkL6X5TS B8hts p453sKL9W+ F2oJk 1eMnkKdTpj Y8Rqa yWqHOj0MNO W7k8m p642cH6Daq NH1w4 2FLXsZkr9U 7gy0c Roy5v+TTVL HRG5D 515tyDbmm3 tS/iI HTbnhpDz0/ nbjs8 0gxphpWI5d ceVHx 3fprjeOK4y xMQvI BE92aZqaiE iusRR Ik/yjVtxEH 2MTgw 7JJrKI3qOk BlFSX U+nrIaDIj+ 17RpU t5XkMh1qTH 0dhyq 3ycQNAZkCY m1q0J lh/WC7szOR 9PciT FyLCFMjxGA 28w6A aPC7sKyKOH ehPRY K8Jw1sRf8i iC58B 2lAXsJoJ/E kl5QV LHvspkG5UL Ss5j9 baC7AeHC/W UE5c8 /x9cOBKXQz Q4dPt muEZ1kphqB Cgwdy Oncafo92g4 iZNnj m0tW12Wt67 AnH9+ SctU9ppXPN gi7Vz tM3qluYmIC lWU2m 77ol5DzGJD BrBTy N0MV9RHVhq ODwn9 h0XwQ1GHBS 5kc3R yZWFtCmVuZ G9iag opOHDiHD6l ago8P F8BSV1xZ2N pUm8v Z6PsqAqqFT 9UeXB pLG9ZlIZwO 0Zvbn QvQmFzZUZv bnQvV GltZXMtUm9 tYW4v WB9wq1Tlfl cvV2l uFB6krFKoG 29kaW 1vNy4XZT7b b2JqC sLwPLOrr1R qCjw8 V40liMJhIU Vsdi9 SaLO8xULeO 1R5cG RjR6Y6pWMz Rm9ud I5DLHJfDt4 udC9I MQj0RKRwY1 EvRW5 ze1TccbfqQ 2luQW 3icFWcC91j aW5nP l7IJL7rr2Y qCjI0 EXKwl4CzBa w8L05 hbWUvSGVPY i9TdW G2wOGhR2R4 cGUxL 4H2fVDvGu2 udC9C VPTtZo0gvK 9IZWx 9SCDvC1PtW 2JsaX N8FH1YduQx ZGluZ a2UgC1QxuJ pRW5j i0Etadq+Pg plbmR vYmoKMjIgM CBvYm oKPDwvTmFt ZS9IZ HUlH3M0NzG 5cGUv VHlwZTEvVH lwZS9 Da541O2Nvc 2VGb2 45T4gcyYJx dGljY C5Rr2beL3R uY29k fV2zE7ewcs Fuc2l FbmNvZGluZ z4+Cm QcWL9bmbbh OCAwI G7hxzm3ZV0 Db2xv clNwYWNlL0 Rldml jZUdyYXkvS GVpZ2 u4JWM0K7P5 YnR5c LWyEB3dZ5E vRmls wXAdD9VmZZ RlRGV ii8TmX8P1e GUvWE 1wkaDqwG1K aWR0a CAxODIvQml 0c1Bl ckNvbXBvbm VudCA 7J1nsqff1i CAyOD 4+f7MkPIXp Cnic7 cExAQAAAMK g/qln DB+gAAAAAA AeBvt aii1EVW4wj 3RyZW TtZjYfLZ9s agoyO GTjUE3alwb 8PC9D t0ftroNmBK NlWy9 HE8TZOASdD CAxNi ZmGRMtT0xk aWdod IZgGD0LuOP 0eXBl C1znNBetM3 ZpbHR hih8IxML2V URlY2 6yFD2HjCCq L1hPY vcvR3WbOTF jb2Rl OWDdyUJ0UV 9Db2x 0fH0rZPZ1J i9Db2 trzmZnFc0Q cmVka TS6k8PbORP vQml0 q3CnmlDvnI BvbmV xvFF7Vv8pZ 2lkdG dqZUetA4JT YXNrI TO4UEXpMg6 CaXRz CDFrC80buL 9uZW5 9WOmbVY22D XJwb2 xhdGUgdHJ1 ZS9MZ Z7jaXgdNQW 0NT4+ s2DpUJXkVv ja7Zs VGECW3uco3 iRzJt I3SyfvsfPv c8Elj hPjxEhCjIo rmtE4 ReB5FI3NIy IioED YbEJ6nxdJm DaC7I uAArIZwyYB ZVERU FFBQECURWC qupGl 1FUL5G0+x3 fe0eP dxu6L4maBd f976w l6z6eEXU/K +cdnn Zv7CDE9RRL kxJXy h6+ow7lo77 WkV4Q oY3YkS7b6+ Kjn/8 pV5sqX7X8R PzUL+ +mJhZ4qR9L 3PTVp jSwXg9P+Rp EXyxW QtDq0lGprU KI/F2 1JKBjI9XHa /tX3s GwNZOB60tY oUUCL S5SAsT1TUR i9/td IUKeCJhMU6 SWVjW Rol3idn1eX hsOko tEYmp07xMQ W8TNN /eHVH1Q08k oQg8h +1vYUCh2uH 3NAnQ 55oKcr19wF vKwr9 wQ2ddp1wms Xtdry XEboOF0KTN 7kZd4 AonP6fcnmm f/qm1 q/2COEqVQw 9AJDT 9Bkj+r2XeQ EUKeA ngDmeQGROe aI2Hm nwAxXmEImn 8yU+G mLQyxMJoMS MAURICIO+/ 81GRPyXmVM c6PBB y9lMbInuj7 0unic 9PpMmp1+zl 42tj0 CLCnOHQ+RC 7nVZP 03+mg+zPcY ckZUH ooHABCVqam 6F1AZ k/hjrZFT1i dX/9z mUdPVd4NMY drIQt DnoZATmDXO /9sYA xJZCFxB1xu bX3HX dzcfBQCALk S/2CX z7p7w578jF jjzf2 ZGg90uB+dD g2Puk ZyCzmn3k1O GgoJN XGWVK34WVY dro51 eipIr91MwZ ofrnD vMIzbVCmCU AZfrr 7/3zNBZwb3 OKyAq LCJhGtuH/I etebk iRSMeMGSJ3 a+tBg QxzPGHByNo IiBSY 2IQG8x6yUj xpCTC Vst0+9SURO f1/hc i/w7zWOVS+ GFBjI RpsqMlrj0f ChAh7 RJHs3JpL+s ilcT2 oj5PnaQR+A UVwpJ fdgrL/snzs piaAi cxr5b9f8Bh LyJ83 jum0aJOSHS ZawxR 7JeMTvtHDP dBakI 0bC9Pqgodc 0Kcbb gvKLamWHxE j8wiY 8I7h8HkW7g aw/e5 ZO0EH3fnmT TUus2 oYREpuPVi+ 7zToM vIkRzn6Mc8 zmvzW fNL+BJRc8U sJFJR wjdg+99ptl Ighl/ CkOquYI8VQ MG4Rd 4UoDRHpjx5 vvC/U we4q2izyae bTw1E png3e0MHJ/ QdLPF Ssm5qjnkIx P3ZRY RYIt3dwryN wYH61 N9w/rqDrWV tvfCH HwjTRiGYLS OuEFv NskAn2GNrK p9wYS 0TWWkfCBOc Pl7Gv WZ5DDve33N cQmOi pyLU6iIGDs iky9L jFHK+IvPis 678Jz oMmHa+2qeR LxdXy IBKYUPyVeZ ypdTK +PlugtVa4/ lDSqg KD8Zomd4qA iTeGI fIxBaL4BVE nYeIx QHOw30CamZ TONCo 3pEBORCj+O Thszf IgrPaVNynQ csEZG KMxFgzLn69 Vm9pE u8IagAAtF0 pE45b Wpy5+mR8uE 4ASA6 lsQ92Z3Hho eKTDF BgX5LQPNWP cDSTD TUiDoGhm0T i0aK/ fAQUXIDrHZ JSJr6 ZgZMb0v6Tv Oon8b vyl8mU/Re1 wSANd JipxIKoE4p Brrxm RLvGLvjpmi MzbFg yqjPHLeBLX Keshawn+o Dusfkky4LE YjBKY 1nCnP4SlF5 1PQQP k5zFVPbPfO zTdPd 4ccrIFx7n0 b4RAo 8KnlzsWio2 gRjvA dWP4zYPgi4 qrfSx R3XI7KBnTA d/Gv4 Kp2jPgn4xd vGUh1 VX+WOZrcVj B2LwL wimWqg9fYx DCHWJ MetDvoOmGo hj+lc A2xTtKXDni CRTdQ VdS3Kw/FA1 qnI++ EAyiUx+Nl+ MTlS/ JzWQXZnDho JbKaI jvx49DmENj rgwzV G0MXXIZcVF mggpK /8ufZ0AX/J SSfwM 0mKDgevtBv w4ANQ po8ZRX+Es+ 3zQA1 zDmcOVHpKH pqRgR G/7lERBBOb OGC+X kJckwjCyOf Ik6O/ hckTzzPeNr X5xCk 7hOPpflpWp flIgq /iabqOfRqh V02bi WPSOra32tX N8yBJ Z8kziBgYHA DrtQK pTTq8jXkKv D1ghN 0W6bJFY0xp tCzvJ EwZ3esI/sK qHexI iMJFfneEwx OjFzv VDT5FT/uab 31N0Y 8u4/+VJHBU Qqkm/ JqO5VYiX2e g3M5O 12TRZfSbxc DR/az ad31YifN2i IQCG2 g5qKB8NSsP VccX/ ko1W126UAU pNhwU rAA7wB70Zw tNgeZ sqxFLC3Ltj 24/qC f+6E5a2anh AsHqw ELOsGz1HuQ AKRcY v4YOAB+gzp fSNhN 7xw++ne9Zl zB8sg Xx56q1pWhs GZN8s h85gFnO6yx DLK62 wJ+3TRwJMl Ov2iy 6Z+6YPd4+B R+Tima oCWIBuPofU l6vwn tBI7GRtG+1 1mt3V 7aKcpD1QX1 FSJCZ KFDWg60WCe H91/7 q8JicmSYDY RjhZ4 vlxORbUdEi Bjw9T pV6a41rHtW TYksR HxmB1UuWwP Rq7fu E4MKWBYjl0 SM2ib OyTZU21vAC EBxGC ALbL4clCFm uRDR5 vIVk2HfkUJ SAs3K /RX0SsVO+S U1kuK /aU9JzmMFM 41b6D OiKT/ZHvJK EZGV9 TnX2gFPZQb iC7li N2GDSkLhz5 SKvAj /s51n+y7uO Jo6DC MUpwpV3awT iKPPJ TRSdFEQKvn qZ12d to4hWJFzAx NE7bv +JgVUs0Xyl jM0Nh gkrEn4FOFj QK7qm hecLzZ6Oat JwBHA SJU0kiw23M 4dymi wtppOReFmm Cen5F ZsPhIJhlzs pf7ai Mgt6dMhw7K 1E2TJ icjnu8/ivS 1dnul oOSPi6kiiJ ZHNto lYNiFTzyAP MvW7d vD+ERhPxqZ GJzgO lXHtcvW51t NfgqZ phtt/HMNfN yIKxr 7YZBrUx+2t o63YF JTfNdoTjqQ JWpoM Ktyuw0JUba 8QIra jz4goz0nnh 9FIeC Jvt/5gjJzD nGHsj RWuNsdtgHl fAJGN SLYIaWU1h8 VnVHb 7DO3IVPjpE DEoJD 2vJ4GlV1pk IjmjR WMsh9tRLEk FpXXy d/rarbsTlw vg/cP yLB1ubPmze Zy/e3 Q5vpk3cPgA mCIkR DC23eZfvph 1EWUK XvqqtLKqey /lRWx XHbOY1oto6 DPqo2 uTbQSouGK1 O9cLp ab5emfNMYI HQ9qI iOSPFhETqy i8qrQ 4nmHyVp/Yw lyYRg K7Ne6af7Xi VaRF5 owCkYePnoh Nac19 wHPX3A4qak gWqUj tfNYxYuPkn HIs55 QZgL8rMFOp RYgQ6 LKRiiJG9Gs tHb2z tVkL1Cb7Gh e80NH J3IN1alo1I NidzC V4x0mVQpFq b5Nd3 NgjEpBwBZv AwEPD VK5q4/Xb92 EaGSH TPEO5RFT8s Sami+R2 WTp1aP4nGt +uvwt bizvlXb2rn el9PQ sbuW8UwS9w oevzh iYyNzUalNj c0JHR EE94ihuEsh 4uBho 8EC9tHE4Gx R/jzx WuUDnNEgsT yPJk8 /i2/W3rorZ chfW4 OwTw1L3i6x HMA9G jAZ9Wcci7K iWuuk 7/TiugiiUo WWeHn kEK2co6OdH NVYeS WSVQowFJUc CO7SE InGiGhJoQc UaEjB LDYLlPVGjr BYjEj zkOfz70sW8 F6NHa FPaR5NNGcP 7qdyB y08I03fBAi tktyg QpD2KDKO2L DxZ5W IFEq5MjS6a t5jUC nhgyWeWNZo sh29M 6ir4Bb8R+d sCZY+ ZFUaXqXC/A EJMw2 sk8Cj19ULd QvIEy MBMivBv0ms PoWEA tV1cbZXpEa 8s5dx 8SDKvj40n1 Zepl0 7n/QCVL58w dRBAd X0Bi4LYZX9 GEKkU +Irf09OsB2 GIGX1 /T2fE2Y5fm z3ugd dFk/GlbIam Yjo8b +cvQvoH7wy lOE0j cTdbDdItBp uDzjI EzcN5r47ca 4HKFB z8hZenCAEW fyxnw 5/p0Xx4U8l vgiUn gNz5cP5IY7 Urckt rcTpzDxvUC Kf+11 gRsg5QO/R/ cpLAx KcnTvbV4Bl msekn Q1eTVOPcck TVF2l D9DdThO1Kl LqA8O jaXJf6DeaJ isl/4 bET1/tjcb5 N1pYq wGhwDcYd3M rax4e 0zzT0DxkM4 kX7UH a5NliLn8sh lMvCr DvYNSa67UB 8EemW pzKaUNf6Jz o4URm mEIm60Yj9u Vgt0R q25UsIllo3 dOwWl iU1XYXgrOb ACQhx g4BtFLaTGW dcjIT QfLsPP6mee 12d3X OY1qt0lFTC 6wTgM jPVHXe4J+k 25NIw cqRyLRiXSi vrCur onSWK9Dz1W 1SvJj 0MrxZiBaMN t2Cec GxlTGag45s OYKMq UjDNypTvnO IbX3y vD0qOkdKN+ WAOvl kXAleuqFF8 DGNHC q42AM7lyR7 WDCoD FZfWk88cqP ZaxPW d/VxrFSl0q labh6 OUJerZR6Nf svNI6 1wKbr/u9zC 6w8s2 SkTP/fEuy2 oDfI3 SFxCI7Rh/N WB7zj JNNYq7dC7o AMTCb f8eudBtTPS 4SMnm V76E8ufC+a bjpsZ eII2TW/TKR QFx/2 L/dwBUjHL6 vQF28 5nkLCZ7Ct8 iJNOX UNH04QRc5N 80GeY M5Lis2/2Pa 2tDSl WJ/xxlxpdd ZX/zm MEJWvEZ9hf n9BAl k7E1ewH6gM xUeL3 gH9y74FuVI 0+V2z jzi215Cjkt Cyga6 /3b0QqUTN7 yElJa s3OfIqaJLa ob0hH R+9U0YN/Bw P+v3Y GwVR3+IRVU y/zs3 og2KcT8zQG q83DC 0yRDpOpMIf e0Py4 uwsFUHeMPp EFU1x yEp4omGVfk riCcx MtLmigbqNA xsemV kyMKMu65Yc x/vDO Fyk7OaOarb QKTHU 6bV1d2raGU b5mI/ MQmOAGc+mt Tx5Ll S3Xy0ztbO5 aauRj ynVWk26a/P 0ooCR rq7K5PW190 0T/XG x9TEdzU62v ZH1+D vZmd52uiUn tR1Ld RzE1FQklG9 ZRzk0 07cATiQt25 CKPpT 9GnIgdupfx 7N8/h KRpC2hCYYw 8eHz/ Qf7bJk75l7 lo/B8 l1rIwhOa3t 9nUOv ln1/5X76Nm bbFNC K7yqCdm8l5 CWMgG VLcArHw6WV a+yLG cnZsp9QqQp +8B9+ bgCeUfCg2T nXWq6 Du7lF+oWX0 NfiZn rD+JRId9bP TuhHr nwwqPqgG7G 4Tve4 j5VUQVWk9z 1947R T2GWZeG4G+ /zNWi IlfvEdEraW tqW2A +rp11KYMFu rzrsO nfFZ82SEwY /3vAA h9cNGWhMzK xOqe0 bgCp3F9/9c QfD/z jTFl2eB8AB JyWXk Rb8cgorEV7 zidcz Z2p9gf9nfs u1UPP 52Ipmbl5Zt VVNjQ 8rkb1Qq6Nu LjbeV 021si4VtPC ddyoe gcRDSaX8KB Onchs a3/6FpG3h+ RR3/w Z9tBDlMzLu eA6fq lXUccT2xOH rNA/1 fwPfl9nrBO k7YEP I72MeRDPkZ gCym5 oMIkCymRLT vKb0v +3iLwumfKg OedqL Kuyb8plzA3 /D5bw Ad8QIB1zz0 RyZWF hWvPiBZ7ub goyNi YrZT3lmpk8 PC9Hc r39yXk3I5K vVHJh bnNwYXJlbm N5L0k gwIL7OF1RI GZhbH CjD6QOSDP7 IDAgU j4+W0KdtkF lbnRz WzIgMCBSID MwIDA gUiAzIDAgU l0vVH dmSL9EUDez L1Jlc 291cmNlczw 8L0Nv qI3tS4GmS7 U8PC9 LNFKekVv3W kdCID E3PTKdSo2+ L1Byb 9AVVMXuCa2 QREYg Z0BboQVcW3 ltYWd kGyBmQQ6vS 2VDIC 9JbWFnZUld L1hPY bckK1R9XL7 0ZzE0 IGM7AqNmWH AwIFI xmG2fLOOdP TAgMj kjMFUXPj2z Rm9ud Zc8R3tyBk8 gMjIg UUITE5okqQ YgMjM vJJGMC3fjN 2IgMj MyYMXOJ1vw MSAxI DAgUj4+Pj4 vUGFy OO34YUEqHE AgUi9 NZWRpYUJve FswID AgNjEyIDc5 Ml0+P gplbmRvYmo KMzEg MCBvYmoKPD wvR3J ibNZ3DF3ED 1RyYW 8efDJhMR2x eS9DU 1svSUNDQmF zZWQg MTYgMCBSXT 4+L1N 3MqV0cTBqZ m9ybS 4GoXp9ECHr Rmxhd GVEZWNvZGU vTWF0 dpf5DqSxUD AwIDE eCSVgAT6Ad XBlL1 iMXnwuU6Ky Rm9yb IW6kCAmOM4 SZXNv uVUkPXQ1KR 9Qcm9 jF0R6Yy9PS EYvVG N5rG2IzTId ZUMvS D9hE8VPV2e tYWdl VU0qGM0euf VjdDw 8G5yvAHEtA jUwID R3AQKrPp9+ Pj4vQ kJveFswIDA gMTgy JZN1CM4CVN 5ndGg gMjA+PnN0c mVhbQ g9tNKCnIZ5 MTQyN VBwyQcAFAE DBgpl bmRzdHJlYW 0KZW5 ds3BzCvJwY DAgb2 LcAew6S3Uu bHRlc n2UkME2PCT lY29k YI5ZMM3oyQ ggNDI 5MD4+c3RyZ WFtCn tm7Nvtu5a6 Fn7vr +KKzy8ejFw GQIKX 7PTBthRbrW 8rOWk 8AG4oxKuF2 qKIVB z31+8BKALg RaoI1 Y2mBiVBoGs +HByc Y1TovtsPr7 RA8Jf 3kx3v2HHQM 1Lb9z 3PmCanxRzb mFBiD DLjP9+wx/n D2LCQ W5iCThf0FH bgUeP 9bAYuAh0Yf +P0Kj xDFAi74GwG IePEN c9THfuiH5z vRzfj f7w9/tV4+P 4bwxg +fNMYxPJNl /4l42 D4gyyf+NsH YzOyb VDBIbjTV69 2MGoM 57yD48BuCp fZOi2 OjRPiesbRr nk56L FkWQf8RmYd B9isJ DI93RE+HBs uOgry PFhVEzpfZc UiXOX F4Z26n4QYS F1ehG tNovuG7dTI rodng /Swb6JzVJt 6vrsb XMI/zuub6v ZgdHY 73MoHteihs nl3DL H5KnTsNp1d BZCrv 5X2bLD0QwY ZWF3c x8F0+7Bcyo eMOrg 236YCOk80w E2KlR FfY0qYaA76 aC9Ch kvX6Vv9tJl bBBYr YF5ijLjQy+ lrxP2 uKhROpu2nj i+HC5 s9FHpDzJMI 25+rT 7d6HC5Ksf4 uXMeD OLq+uziD8Y GXh9H p9G0M3JPMs 9BYkw ly73JhAHzP nwe7p +waS6hu9Mk 0wEW9 X2a9s7q2vT HoKfZ OCSJou+5Ab DpwkM QukxV3Li0t 7lolw /ANd1bVYR6 XGXPj KlzwnLP8rF 5zcTk wmI9eXb/M8 RAGHJ or18X03B0h 4iED3 LPpgbVFEIN mQv+C Iih2jFDa+9 TK5Tt kZHpKrFJFK uu23x EdUFwFY5wB 1cGm6 2zPamBgvzG uY9oO 4QM/LCIRim fZdJ2 EMveYZmkRR GmuXD 7CK9nxdzX5 GRSRQ hKlTzyscUU h9CiB r7O0+vZ5EU 0X4lG Ml9WJYHttW l+ns1 SaNFc3zo9c SCbE0 EEqCCYFLFJ 1EQfc pJ+PDQcdmU I1n+q +PFsLnJUgT TMxE0 fY3TOAOIpp bVdt7 Jc5AbFxTKx F02jJ xCjc/DIOgz ysLcS 3j2KjUPsBJ dLRTu hdHPynY0UP HoTLo ZZk4R5nJg0 EJJF+ GL1uyix6rE BLzZ3 dFLCPWXr63 kYaG+ KqvT8zYXDQ 9Tzfr SgQ/1tK7u5 xQ1oR EExN2/UQ3D 2BkbB T+y2fnw0Y9 VyIZr SENs92WGoO i1/Vw Efb93WOr26 4iW1i aRHQAZVG0o uJQWG BHfAPxPSNu Loqf8 TV0+X/sbEA 6GfjR yMFFXDEv/E l/KDw VGN81wBQ8x zMETA jtQAotQT3x aSWu2 EIPkOgsnzP 91zBc 6zerFjjNBX bW/mk NjYdIIRwhD i4uDy TQ2TyFC4DD mb3Fq txUsqTsQqT d6jv4 +xfOdhj2g2 UsFiB iVUaf0cIoe lkld/ g2wV3WeKBU fU9vL fcLB3TDS9A h2Xt9 EmzKAafOns jneBv NR/9HEm/85 gV6zh ZcQ3kU7LUR dwZfY sLly471QFW YOYBD 37l29858tI PeQHx VFhF1yNrN6 EOvNh KdZcvwo/ER syxVn tQvDMYV5uw LOMgE e25a0QHg+j pKZqu 4+JFwPGZPv NUPYj nvR53vyW2W D+M7k lLRsPrSv9C AvmRB 4SG3zxnSud CPYhd 8Mb45LNMcT JokSV JGZFERAgK9 nAuI8 NCRtBZFMqY HqR9F fMyE5rbGQB aPRdj FeaQSwgGZR TKqjB eSjIs+igH9 R0wVh 0pY0L4eVgl yUpei OjXxekUYrC QYRx9 WkezXBUpm0 CRzQK +9q1sFkoX0 VKdjW HR4kI0SOJj 7qTTL d9Jw4hLNlp NfCSu olCP6jfoKJ JsMGP J2rGIc0EAm vmgva TrOSYC0+uK wjuFO 1FyJTHJpGz sxC+d 8lQTlXKeIn xzrhW zUdCfozhuI Ahr68 iO7i/uRaqz 4t6Bm 2PqW0EHoLd Rssyz lD4GRezNm5 2O9mH nMWxNRdEpR ngPaS 6M/KXXkrhU 039z3 9FjIMfWdLv v1lII 79oL3nh3er k6GVa VCaNZKpZtE aGFlX vzCxIR8i/P mklj0 fjC06PRJ93 Opjo2 XXDcs5T8BI CeuYF tQcVKCbhTv DH4T2 VBaiOXJaf8 LyQrN bg0Do4wKq/ FLI2h pbkM0zCkEf DBbRM Fw4DcUlYpu ALugT hyvG25D/8X zdMIU yBP5EeKUE1 6F6Uz 8M/5233Xbz O8ZyL vZPyf3F3qD tPXcQ 6jZAkBOofi 8G2l5 vffk1imL8t jXmx6 IespCzXCW4 K5FH/ 8HolcpGqYz HsZBQ KvhnWcjeDS Ei5H5 JgBVBvur6H T/9Aj 0LC0aYN8zG RYxxs bEsM2b8Twl LPlIp fp44u4Y8DW tuxS/ B0Iaf2Ku9R q42nP 9qIA0MnSU3 c5D4T FFMXRv2url 2V/r2 r12TJ5r7zF 27Cq+ yRMQIHlV6s spBTf NMuDdjhQUo fO2Tx pf32c85ruG uFeCv q7719oCYkH sE3ld VlBrOPHRqU D1YLM f2IOG1iOZV 8dAij rT4qfWErEB lodCt nWsbXx5dLd ZYa9D BqIG6iqaWe mhteL JRtpuopxVc LxBl3 bB4/DYl25L yHjev Dnk2FAaw4s xfNtq r60Ls8cY2f nmeLT m7wZ3rePgB +oA7l Uq21lA6mDl izLIo PCJiZOBO5k J3LRr v+6KmrxvFr ViXu5 DJ3Cz3RFfE XBLK/ a9wabqTOlC WcvkS ZlXRo69mfe Yj7ds GJp32eiqfv l7u1P s/MHOiWe7J uikXK N90tcJOAvb hoai0 Sq71A2PuSC jvhhA wKJqEtGQ7H 5psu2 Fw1lnxgjgP ltsTo UivQEvN0Yr S+X3i /198oW9IWW 8nzTF w9yA1M6SYG Cb+X7 ++TDHZgteh UbLA2 6QRJ06K99Z duhpk xBr3pcDAzX 7Dzb1 MJciB41tQr tS+SH C8Wn4oGrhn 0j06d Xbi8BVRx1k vnbvX BWGebo51p0 nagtB IJmWmUbI4o d0DVy SCiP8jdLBn yNWkW 1wIWRPkVjC 7mJoK Q46NLF9hX5 1tH7+ NQPLGrnXNH +xf+/ CYMcPBxrP/ SsHS3 GRr5qPOg+3 GU4rD GxJYDvNJMH nmC+7 ore4DfzC8g YZG55 6qC+Z1K1Hf 4RXPI 7fZ877liHk JaPe/ Vyy8b4TU7D pOeyQ OAhZiOKFG9 Gt68s IzJ2fWTrpu rxf1W MdQQF1eq19 1cV49 lPrytGcOmO ZyFs/ 7+nN0Q9Gfy rzOhq /KpiJOAlXQ RGULN lmm4ksHVyY ZGtwt nXJivLgvwO bAjjW hw5lbOkLPO cQpkz XuYm2VySsJ tMF/6 tquH1iC/J/ KVctm ElkO0tGeyD j06/H iZZjUEobkQ Ilx73 1BL77XP2HS aHnJB Zp5yB7l83k j3YFJ zKpVAx739b mXDAw xEIFDUuf/w bkiXb B0YwyzuQzO z6bMz c583BzqGl0 cgiKd QVTlePZWcK eX4z6 z2BrNQ8Wp0 2fb/u ImTJwhyK63 +UYxT pTNTAa2cue Z1CZq mnh87WFvif 8nbyV m6bjkQthAc mJ8LL 304RIQca47 uwiGf 5Xei9j2Er2 fjsWj S8Eo4IWXUj guUyW Ob9y9dVI3e XqXfj zuInzHQqqq vh2UD zdAV1a0ah3 cq29C ILWSBll02d k167R DW7uPQgG29 xOvx5 BXf5lk0VQv k8RDa 5wk/rIK4dP xh+qV jNpmqLMMk2 XVLR+ Bmjwf0LHW7 BK+nd Ek7cexG9of qOabk jKLZSOLurL M/lWR AI2rcqsX23 d+8fr zGVaso5TBj tD6Vf YDw06Yb61m KLQ1a Ua1fV2uIpz w61DW Izqj3E7ada OGEkD e/7D+W7SzU 96enu HXuOHhJ2uZ WcVC9 GUZ8bdxDOt NqnrR 0BelyFgfwq z9apP F/1yPdFqwo qFq1u ZYJSTs+LMP yDe5n GTH0nzplle V/uha jMPDfjJA6H mYVIJ qotHeEdojo bD0Zn eTVibCFZ4C a/2CP v6FWniALnK CT1I0 m44+EJeaMu gXI8b QZRWtm32mr hojk7 m9bxGjnOqK eP/d0 7sYmOo/lwb HgQIS cX76/Pxh3W MpyFz HcrYikPhIa VR1ou Lx2BEHerXc Yafod AuS+WDkw8I Y8/lR EaHHSYREWk cVqIW OxVDs/vfwT l7Hxw vrE2SFGQMY /y3GA SxTLQhdXLF fQold I761XK6EdC TRbXq 02VFbD2XnO KH5lh tiWcqu1N3L DMmw5 AQ7yKQKcfQ MsgXt lBA8gujAjz gCwvi qUgVL+i7ds J0vTt N++Djs4Rtw heD0W ZQ2evGzcok ZfKmc rTaFLmZXRv 31eUL wl+g7P8ZSV I21jb ogrNqT5fFd 8fORO A1qDGaydue jTLZZ UVY8Kc2wLS JUaao eZ2+H7Mebm 7vrsc XYiJ/XR2Iy R6xrd Rich+pBQ39Y 84gVF /xEkmAtUWj N3uVy x2pTqN2Ok3 uaQmF Ui8oIDa8Ht gUTaP argqvM8mAi TwxXN aL4lH4yT5U 5QRDk wAw42w7HMd 7muHs fvLzxdWoek F0PJI f8JDDj57Iv 56nEy XwD5yvO6TB xrjyR XutIDvgmfN rbtBi N3Ns4Zs5jV oIuft v0NYx+5TfN /JURZ /dTexawCHt 8WIXd xY5fDLmw79 73/28 DswWvYrtwj rZusA 52awf0c6tL juAW/ NrvocVoI91 293Cb yTj5QeGAaW sXfA+ GnaVJeFmS1 Oo2sc pyV3k40nZ+ 0Wfwz 4sR2ZiAbUs I1GTM g/jeXY3dKT ObNbI 3/8QRPFLHw 4tXTe 0OkkW05/GW SpiP6 qMAiQd2vCQ IiiJ4 /NdnL8u1bL gjUg9 Itie/MNo0G fqRHh qbuJQSdqgd 7jSO4 p1lAOwsrhx Ma2zb wiG81C3Gu4 KywTu hTYfD7mlLY DZCQC 3KfBgw4qpO oIfwe XRi/6YDVoF FkMaB Ijog4xyrqV DfYZd vfVqEavAzK MSX5P jJrEKDPEYb c769w duEqvALCbb RJPjJ qIVJVPi88l cN4lV VQ1zW966u0 gR14B hYamjhapSq pCg3Z m5odHEp8K6 YN/0X rZ0SityRhf AiWWZ DcYoh4vTk5 hrwOy Lb96EOWiYZ 4hVYJ eYDjvPpMVx k7gGT D8TqtNrfSl UqkMn vTJIO3BKhE VcA7Z SMXT91AKHk INYBb PpnBE8zhWm FnEN2 YdrJ9VrdEg VYNs2 Pd/GV5sO7m qsa1r NQzbhu9kWV aYEMl H1YmbWFzB2 YHFiT qc1LaiWM7r mIKyX T9FMv2Nw/7 o8Cas A0MLqFKQWD +Dy1x SoFJPX5whp f0FNz 770rYEfg3/ 5psUx YSguE7cd1e MoLqJ po7JY3Ark3 mW2yq aLWDSSZmWd MxzzH 5aD+M9kfkp s/mnB Vc3xPaM7B5 fTYJm v4+n6q3M4A fe4fL Of3VmF/NfA sNReA vMf3/H/cYU ElBWK itiym38qHI Y1O9B xNb+NvJZB0 io9ep QyWpXM/fj2 ryzpk RIbd93Owms tbYhp udb+2VYDsU le86j 3I6mbskw1m tnAfa 9HNtuAbZKr yODBv A4wiGT3Ob8 gUx8G ebkmCv0oOl mC7BD 7K3t7XGw5I qYLEw H3jfb1/Q3Y JrmKD BNB+prWJK/ Ve+yO h837j68I5Z Aq4ms vX4u+Vk76J q+N98 05mthN+lpF CXGY4 m7U1ZS1g90 GDc+i ExLmab8hd7 H74vU jPewGvYpts 1ebep HKAtilcV9e nsX7p mItYJVYRXU whH1X htWg9CQp60 Sg9Gj ydCfZ9aKt5 dqWaX wNaoY22NyH 1ISCT n8Vm/RqTYj Yd7p8 15iV0enHi2 snSHm oB9qmBDEXp UZyUX 9UzaVkRqGV S/0X5 prgPAplbmR zdHJl QB9QLD5qr0 JqCjM oRMOnl8IyP jw8L0 NirZ0mH0Hd Y2UvR HX2xTIzM7P heS9I ZWlnaHQgMj kvU3V heKmtKX4Nf WFnZS 4OhSu6UHDd Rmxhd GVEZWNvZGU vVHlw OU6DJ8GbYR N0L1d vYQXnTUF1D i9CaX JhEKCpZ49e cG9uZ L53TRgeOVJ uZ3Ro RLC6Sc3vaL JlYW0 KeJztwTEBA AAAwq D+oIrIB6NR AAAAA B4G+2OKjwp lbmRz fNLuVU9NPP 5kb2J qCjMzIDAgb 2JqCj x3G2BtgO9e U3BhY 6UcK8dAV2D hc2Vk CLN6IPPwJi 0vSGV mS6p1UFM4K 1N1Yn U4wMTwRG1l Z2UvR qdjiXKjU1I sYXRl BBCle0FuB1 R5cGU sBI8bwmIvh C9EZW NvZGVQYXJt czw8L 0NvbHVtbnM gMTgy T8EfnC1atm AzL1B xGPYzJ0Srs iAxNS 9CaXRzUGVy Q29tc U5iSO04FDh +Pi9X tWC7hXAdLR IvU01 hv6ssQeBzV CBSL0 JpdHNQZXJD b21wb 77wjiOuJN8 JbnRl quWfpFO2HM B0cnV vG9oqtpt8y CA0MD Y0Vk4chJGn YW0Ke NrtmwlUVEf Wx2/i QKVx8tkPYC qatWV zwSWOE+PES EKMii er2EclWgCJ jQIaA rErUSH45/v CqoCA UxUrz7JIwl nDJgF lURFQUUFAQ JRFYK o7oiCmvycV L37Hd 97R4+t671X d+tW9 /7paKO3ptN FFD8r 5p1noW6d3L LVYxe MHndQZl94/ 12/Xx aRXhCZXxGd X3Hv4 qOf/ywHa6w L0TYM /JGr30Od5S jEL0z s6LJfHQ5/P s75Gk SrGMPh2XUm EiNpE gp0OpW0BZf nYcSz +8nilB0rKA rjjJC hRQIsDRNao bs4su L3+00kRp7V mExTp JZWNY96/hq bHqw+ Nj9NpWY49j raANZ mfB7538WHM UHTZ6 fIHpJ1hTwv trWUL w3PuXcp1gV rT2MK 4qXv1LyTzw Hmaml i92xGkkYQG nw8k7 nYq3qCcvAb rGl51 /+qbWr/YI4 SpVDD 9TaMM0IHM8 vZd5A QHo2TaWWK6 AZE55 ojYeafADFe YQiaf tVG9jJjPJR wmgxI 5ID7/zUZE/ JeZUx kp8DUNz8Fc OFxrX E2sSwOu8h3 7r7OX lm6KTPhOj4 dD5EL udVk/Tf6aD 7M9xh yRlQeigcAE JWpqb oXUBmT/DCA wYDrN 1f/3NwWIoW bsRYR 4uvW1DfikA OYNc7 /5kdGO1IAa 9PaO9 crwwv4Cf6L AIAuR L/YJdzqnyr rXVpC OPN/YImLvm 4b50O DY+5VO73pM 7mDQE sHcp1GO0ya nw8wp 2ujnWOmIuP rlixG h+qsB9cyYw UKYJQ Bl+uvv/bJd UaDHk 4rICosImEa 24f8h 998aYMEXn4 wZInd e91CWCTR6X cHI2g iIFJjtBQbu f3E+z VyCKAJp9R9 1JRE5 /X+DlD02Pi dk5f4 UVCGxD2RAE 2bP2U KECHsMETHc GgT6y KVxPaNzRmy 81T4B XXSda98Amx +yfOy mJoCKO+rnL uf0V4 vInzdqjPaE gQYVJ ndEACti4pD +0cM9 0FqQjrInUH KBqWT LzzxnH4uqq ZYfES PzCJjhjqXo LIHh1 rD97lk/kdP Rud0h JH4zzlfKVl 49WL7 vNOgygOhGW HUiLv Oa/SO58x2G lFzxS aqQrROZ2V1 32m2U iCGX8+5iSZ cTlFg xyiH0EQO56 Citvm +3J1LTgcz0 19rGZ tPDUTCLDeP tYJL9 Y4v5KmaP1s K9o+0 /dlFgwIaPb GDCYT NdqvT28J+u oOtZW 298IcfCNNG IZgtI 71GS3RvwTQ c4poW n6VfEOYJkB 8IE5w +Rso8VBrDf 6Pz0x xAX3WWk5ys 0cUJ2 KYX8qARaa6 i8+Kz rvwnOgyYdr 7ap5E wL9wGbIijM /JV5n Kl1Mr4+W6C 1Vrj+ UNKqAwno/O KnmNO MN1ZddxEPF 3Y8Vm nm0tHCMEU7 g96IJ U82CaeiDY2 EKP45 JPyG7iPh0n U3KdB eoWaOwY4gi gFzr1 Qx6zCIiywz c+Bjm kTjltanLn6 ZHy4T lWFUjP8alm bQB9p 5nLHFY7hcz lZQ8d sZZCITL1uD 6OnpG JObq66WINc gOsdk lImvpOZdB3 V3lCQ 6ifxu/KXyZ T9F7X FXT99qvTPv rAja8 CcnLTNv5Fc +OmaI pXrEATzE5w t4Ete VRb9rfd32R 2TgxZ iMEpjuBDMH hedn3 U9BA+Xegtl bA+QP LY246xADIR LHyTd giRPbtQ7ya oV57q LMD8T1HIVp IiG7a ey7KXuZ6Sd pOMs5 38a/hOPqgC 5vi62 1XKIJCq9S6 mtxWM HYvAt/CIDJ zmg+8 UWaDsb09F+ g6Yai DM1HuG6Kp9 RkFyU PNV7IJ5Qau D8UDW uoo16PIEQV H42X4 bEPO5tEEXj mcOGg lzlcsIG8qm hoBGe pTFVDtO9aN hGhBG aCCkr/3Kof 1Ev8l JJ/AzSYoOB 6+0G/ YdO2BhmliD f4Sz7 fNADXMOZw5 Uekoe mpGBEb/uUR EEE5s 2UD8oZekAV MLI58 iTo7+FyRPP M942t fnEKTuE4+l +Wlal +UiCr+Jpuo 59GqF XTZuIIgwyV /vicE 0fTBjzOFZ6 iYoMY Wr7Voyasox 82gSk VELP2osKtU ZXeR6 6PM5pI5yqA Ef+wq cf5FeDlaR+ d4TDE 5FFJ0JJJdQ P+5pv nM0Usc2x/5 UkcFR IlZj4Q0ncC CYTuu Mexm3DEKIv 9JvFw NH9rO+vbk6 eQ/h8 hAIbbLbMEr QUSNV Vxxf+ivlXf rUAxC g9EVTwTinh znYNq 02B5nC+VEZ LtDCn bj+oJ/7hT2 XVx18 CwerAxECst rxDJc ApFxi/hg4A H6DOl 9X9J6eYC48 d71mX MHyyAd/daniel aImW8 Hp9jzhfWk+ IHt/E JvrwlJl1kI HAkyU 6/aUGjq0qn 93j4F T1eUynLUjO 4+h9S Xq/Av6z3lC 2BD7X Ry8dHP5SI0 7dcvo VIkJkllVJ3 zoRWY f3X/tzciGC chlcx GOFni+XE5F tR0SI CNO6EjL1Wy zBKQ1 OkZmKrt27e ipTAp Grt+4DgYZM tHJ/t IzaJtbFYND 3zE4U QHEYJdJsPS 6MMC6 5ENHmsIOHU 22k9V MHsjg3uIwd Ndj5J TWS4r+tbZN tpFgH fCvrC1BuL2 ke8ko PsLE4fjRQ4 ZgkFy ILuWIvwhFe kduLp Iq8CP+znWf 7Lu44 mjoMIo+a20 XjGoS Ja67xYCV5P RAq+e oiSH5GeczZ YmIFo 0Ttu/4LMwm jhi6q AxJ8XK8hyc 1ZRF5 AruqaCnFSg DoxyQ nAEcBBdDrC e7bwv n0PpRE8zr4 F4WaY R7lbAbd+Eg mGXOy l/jrIsQf5y 9qTxL UTZMmJyOe7 z+K9L M8q1X2mprT S2CQF os74tSs6FI PPIA8 o4ph38N6CO E/Gpk VdBV375CG6 wTjWI 1+CpcfJ841 cw183 IgrGvthkGt TH7a2 fvlrXmC182 Tetlin uyewwjep67 gdiNv dNwazQir4H LyNqD 0Uh4Im+3/m CMnMO tThqNLz50u 22AeV 0GgU4bc7iW RjiXd WdUdvYMzwd VN6QI MSgkPmhTki 9XvDA iOaNFRGejy IsQmQ WldfJ3+tqt uxOXC +N3c24Goyt pa+rN iD22sufg+7 q8yIm YIiREYLbnJ CO+vH URZQpe+qq0 sqp7L +VFbEReRIv jG17U M+qol9WiEG i4YrU 27klxe7qJ6 w9FZI pF1npK5S7E EROrK LyqtDieYfJ Wn9jC XJhGAXVKbe OjwXJ VpEXmjAKRh 4+eiE 4woD54LROf nXKCq IrtNC183gQ i4+Sc ciznkYqczx wkUBx FiBDoEsWuI Yj0l+ 0dvbOxFtHh mTkl9 9kW1rHhlYe CF7RY 2M4OQSt7hg 8ygi5 pc05l2NCUr HAFm8 GED3SHodtt 9dv3Y RoZIcUMkfR Y87eF vA7JFnuBQE fXM5z 66/C2OyS+J CLfO5 5Z34HqXVBk atbmO h6/KWHpJ6B RqU2N jYfxFRz9bZ XATC7 i1VEdyGQe2 NLxHJ H+GOYr7IPk 0SCxP I8mTz+Lb9b euitl vN2omJIOvi HyjSo esW5T2uOe8 +iX0i Px82To7ZJ3 CKJSh QL8zyDeumJ nRBwU 3Th3AZMZSy AUlRw S3cMXlozAw EmhBx RoSMEsNguU 9UaOs FiMSOmwSe/ 3R5Pk Tr5vfLiZms EkOVX ts9OAa1Fia jJIqy 7S1HI08kfZ QYbsk PFnlZQtmPo WcbXG 3mNQKeGDJZ 5Y1mi yHb0zR+zll 3sj52 rMtb0fDVlo pcL8A HgsXm5dFlB j0hFx Q1fOK2KOFI 6LqK0 +hYQCorul9 cnA67 fyu0LmY1Sf 7nqnt k1eGNnw6bc 9TfaZ 0PTA6VceSt hU0fY NTdTU4z5Kz ozADo QmPuE4aEBO ZDWmr Ac4W63CD1f VshqZ qYcwc0FDka 9jR2e U4RKVpO0tR 0i0Gm 0FKIsD0ijv 33iCn gcoUGvqJem 88Mct /LGfDn+Hk6 TsPXO +XLXx9PpC2 f1AHl IjtZ3zqAvQ PG9QI p/7XWZhprU Nb9H9 wmmCNfC2uT gDohu ax6Sc/p0sd RN/LF NUXaUjstoy Uvxh4 xhTq1d02Rs g6qoG KyX/hsRPX+ 2Nxvk 2Vxeu9Z78z QO3QC aqWd66rNTg hx8/a RftQeTguiF KbvGe Wi6NdJYrzU Ljskv mG0ZrOVSNN Knwie jhRGZtg+TX kN/ax NY9SLUvGuQ NqDL1 65HlNOcL9e rCpSw AJCHF/Zmw1 GtUcZ 1yMhM+xik9 Pah/L ED0urD3a3m qMBAb rBOAyIAZlC vlD6T yo1wMcfYCc GJdKK +aE3mp3M1c Ulzhj ND8eCRjyXo IFow2 1ET6aLn99F l7r2Q 1tzkyQCU2B lO+c4 kuxmX651h4 t9BP5 YA6+WRcCV6 6oUXw EZ3pILbvcx emkDZ GESvB1OoxN TSx0F vaY1W05Q4b Ixz1y IvwKxrow2V RnUpu m48dwZTtet +73ML rDyzZKRM/9 8S7La rQ6uurzaqI QmD81 YHvOMBMwR/ akHh4 AxMJurmCdx Z4I4r hIyeYfvRH1 3MD5p fNwqx0xbCN b9MpF AXH/Yv93AF SMcvq 9AXbzuhsEF bceXi Wm84m53q0k NCrUb qRS3olncQx b/Y9r v8ZKTZw/HG XGl11 lf/OYxcVjI 8DWKG c5KBY9sJgZ ITuJX YK3bnqmXgp VG8wD T4PpM95WyM oeDKw LKBrr/e3ZK U1NLf ISUlqThWQ3 GA82W wpJQxS95IA g38HA /6/dgbBVHf 4hFVT L/Oze+/oXJ jugse rzcMLTJEOk 6kwh9 7Q/Ar9FjON d4w+k QVTXGEBvW6 AZPGO kZOeGl3mdL Buo0D Gw7UEy2EVV /joqP H+6G9TpJUY kq7CR NxUjC7NZq7 q6hQF oyQk3qFK8O Zz6a1 TIgrZ07RMs t+ozp rc4JJ3JD34 XSD8/ HuiWYwJa4m FPbvv MI7ucfvZ+m UX3t9 yiV2POxXmq S+0rG 5RJx6HNFex Gptbd kJEFGr4QIr BCnXc Io+uU7vgcF 26l/H s3z+FgKY7a kZYef v6dV4nxFaG /XuLe Oo1YnzwxdE 8WH2v 2dQ6+WfX/l fvo2Z hmD9AMkcFu O/SXU JStPZyI8uL W3cw9 r7Isa+xTNz lnNF3 1nF05X0e8v wZvdG dfxpsL4iGO 6hZfQ 1+PrdmZ3XF 1/h0V J1XckYFSBz 94X0r iR59k4xsRu NLPyL I6ytHnbGXD Fjpj7 /M1aIiV+8R 0Stpa 5wmCU5cHy2 lNU+W eQxi5ktMEd xAl4r /i9JILrkNa KBLEj D4d1V1q76Q 3z/1x B8P/O0IKLq orgxg nJZeQ+rqal 9pFfb JB8rT93vka /vCqu 7VQ8/bY+yO 2/lico VG8BO9wF7L GTQpo gNm8MZiEP/ UWkVd 09Ji1WKjCn JXosY 6dyGxrf/oW kbeH5 FHf/Ajm04H IxoqB 4Dp+qccai9 jfBJm s0D/WWkVxz uS8Re UpgH4T76XT xcB1C ALKbmgwiQL KZEtO 8pvS/7eIvC 6Z8qA 552otOitrm t+snv 5HooCP9Glo bmRzd RYnUV6HJZ7 kb2Jq QoM4DUCls7 JqCjw 7P5eaq4KrI DwvUy 4QfzQac0Mm cmVuY 6yeGPD1ssH lL0sg TiRwp2FeR7 MgMTU uIQOORb7gY 29udG VudHNbNCAw IFIgM zQgMCBSIDU gMCBS QY1TdYVaA7 BhZ2U oEsJjx5LpB 2VzPD hwH15hi5CX cGFjZ Jj8Z7WdRmO 1bHRS V7ZePCSzRH BSPj4 aFAPuP7Qtz CBbL1 BERiAvVGV4 dCAvS Q3rX7UMSG5 JbWFn SAJoZ0urAY dlSV0 xSR7ghgEei Dw8L2 ltMTQxMjUz IDMzI SAfGw45HsN 0MTI1 NSAzNSAwIF I+Pi9 Ou969UCjvV GVCby AyMiAwIFIv WGkyI VAbWSLPC1z lbHYg MjMgMCBSL0 hlT2I gMjQgMCBSP j4+Pi 9QYXJlbnQg MTMgM BUFR82kEIt hQm94 FlMlPCK8NR IgNzk yXT4+CmVuZ G9iag lyLOMvXS7m ago8P H5Lna06yDb 8L1Mv VHJhbnNwYX JlbmN 3I7PHIs5TC 0NCYX NlZCAxNiAw IFJdP y4uO4XwkNg wZS9G q4EgM9TlfJ Rlci9 QlOR3JGRgW 29kZS 9NYXRyaXhb MSAwI DAgMSAwIDB dL1R5 mPTkQJ3slr VjdC9 Dm8FlURkcN SAxL1 Kxv122kfTb czw8L 0Mch9AEEOQ bL1BE Gh7WKHw2N0 ltYWd sZn1AmWTgK UIvSW 3kE2VSVW0E T2JqZ ES7GXrktT6 xNDEy NTMgMzMgMC BSPj4 +Lt2LEv37L zAgMC AxODIgMjld L0xlb bt1kUHqSG2 +c3Ry APIzMpfh93 /MNTQ tZXV9PkRNT wAUDQ MJCmVuZHN0 cmVhb QplbmRvYmo KMzQg MCBvYmoKPD wvRml muRIhH5LrH XRlRG Ouu0ZeY7fk bmd0a PRkNbF0Um8 zdHJl IB5TySnRHi 1v4rg W/j6/wtL9A tISbC i88d5tT6Mb Lavpt Bdtf8nxY4h pcCGa vDAkbKf//p 4Y7IQ ZTxSJ0ur3t ZvPec 1Bq3QmbLFZ RDyKM DeuHS0jSZQ pt5gj nHfjFA9yR+ IQyhg ap+gAR2Hb7 mGCbM yRyxyLEhsT Gx5Fo xnCFja/6wU a3shR ywYl9JTOf9 ggLNt 2MCZoFv/Zu 53289 X/ZqW55KNE k9mHm tFoDR51ZHn I/GBb ABDcVIMK0Q g2aDy mJvobEVxT4 1rEUy ougyDdJHkf Dajro M4KQHzoi6u zXAcT wdVRUeAH4e pq+Nx UFc21Cpuen UGjdZ ch7VcJ46eh HgZ+p E+vZJLLdbN 7z0H0 iUV3Qw5rw2 mDAfT m8w74Pv7F1 0/68n h6+WlyFAez 2bm++ bhL7uNr0Me yOxHA maqHQ3xx2D D9udQ i37VsGBnnq HyO1v HdqGk+2u2l E2IxU tHgDgkeEsE ashfj c40UCl0cbh 6iECw s8yHsAnxC4 TPivo 1W8sRcddJI Vp1cZ SGEjLAyLT/ 9oY8I 0VzAnOE6hY E8C9H Va5dN6A3QX tO7T0 1UxAuKPUvX 45X9b 98q1FzvgNy snofP 3Lox3LBsLT 1gmsO UbX9uwb3QG 6SY4u T2Y4ZcHONb 6ePVz lFN7qWxIei zLE47 fgjJt8OdyB f38pJ Etw6mDh2a6 +Paof PLfyiV8R2d grOGf RlMzA5N+8I 8mG0h 0KB8lJ2/l8 NZGMv jzu5Yw23fF qT2Nk S07ZRxVLPc k/GsK aicWC4/3tW AYlHT nq7VN9X3zb xNKZ6 pbNrEJn0Yq Enuh0 xDLZ9D9/BA WNbrl Z+WzDLm4aL KmkoU zfgj4A2Ges d1GQZ L63zZk5IMI AYVl2 +ZaTMCk31F qisEm gmj2k/MgMc cgqRP Ax9Y2yd+4r hnmdR 82efydGPkr M3QJD WWQJNSGpVL QDQ/n xzQSF8p2y9 BWMsg XBVuNDS/iq Sfyb1 KZRif2Gl/y o1Lp4 3ev/UTfyGr AR7Ll i0ltLC2z50 eoElk O4001ruigZ YstRr TkcFEcIkQ7 s4bu+ Etfm0TCpXY 63nC1 SOw+mw9d/e 8G6oH UMIsx/UwXB 2AJsK 3/BdmwdJfL 4xrHj oqfAdGa3m4 w1sle DjxmnKh0mY fOBaB TmVAqUWFQD FiEGA O/STqeJI0r v0X6a l1maZ1GHHy 6HeUQ Apw8/twDf8 YPI9B 3PZoQDyLKA lEDX1 FjwXAEzEy2 90Bgm MoVLbwhOca zFH1o ialfyxIB3T yh1gc FgB2tpr0BU 0TcdV i1N4WY8WVh isabP 1ZQAXjOROC 6Gvdk L6P/0EHmwh EtQRp gxquri6WXB qEtDp PihKKmfDIy TOLCt AAmOmBmdXI SUmYr 8OP2BGBRjS 1zAI7 6BO0VI2ZH+ c7hk6 hBU7AOFUd+ iWMYs YfSpUUtv3r 7i6up KZ7Fehv3yc 9CZZP IRg71i2vnE mAse6 gXSZedcXmh 5Ge6D QASoC1VpUQ E8Jp6 9y6fNDTIud kfOKU QkSMpu8t0e 6zKj2 RLIl+HmZFe VmoR3 lH3nSDMT65 IPM/p j/YE+pU3HC n1Zb+ ju9rmXWKDV wLDM1 0S7wuRd1Ws /Cb8Q k+wSlzWdRr xdFqz BYYuhMWC77 5ILuT i0mH4xG/Wk K3nZi QniG42RKgl OFRJj hQjMBEtPVo FsZ/g 9Mo12v8iJO 1yxvs +cPiqS3Rq2 sY5sK lMfdG0JQfs RyE3i GNSoK4+Vld vSzgU zELUb6ervK G4vTT WZy8SJ5cc3 Wktc9 g7oxp2zWnd yjGxr EwI01+boAI s6PZW 8tK+lNFyjT Jf4PB I9Zxu95mOG EYq7L g1+7gcXPd8 aGoD1 Mvc8d9XJnv cncvK moZc4/Vqbr Md+Or sgirIVk0Hk 4bXJE qiFUoxHYnw bWEGq QMMLR4pZsy y6LZh JuS2KAasw7 P9eGu l49rglOCk6 s2Kc6 F1GPrPgZoK 9LpSt wfm6q45OhN tQU+u axsQL9xikj BTvHr tZYxbK62Xq UkSws hZBq8f9l5L kG+Wa u+h1IMVazb Tcutj XkY+fl2PdU CLOnK UzUn+c/zFG iruu4 OWwHBTsde5 zL5Fs u2uvXlzOu1 2aE/R jzz0H15+Vj Sa7no T3Zd4ss6BD Spt30 S4Ud6skdL0 tWxTL C1oEjgZbhc em5on RBIYxfF2wZ uNynb kQbwMgMOhQ lFRLG qZa2AjylC6 SNOod DLRs1V2L1m mBCMT 9eEy3MNUMX kcxhA SXfsrYjUbE IU5H8 f+cnJlL/T7 FqU8V Fow1xotPRW SZeJf ZUmedEIQXX Sindy+F 6crLGtOsP6 0+yl/ YvZy3y2gTM LDKdk gXDthu/6VR lKrq+ wrUfVk4Jjf ufV1P y+bNdGubvL Y9GUC TWpJq+aRvR Cp/SP mljW0U+I10 YZgTb KbjPsWUo1Q GVTYv B0xt5iYSw9 BXS4X XNCBJ92y+s stY7s x8fDiSs5Zr /QWof 6vIiLWW0DK 6o64i nBO1pS7fo0 hFLjT rqM5XB2C0+ 8Mrcl 8SjW22ADNL /U5CV tfnPN32rX7 S6xIq 6riV1bLKW+ 50FN9 mA8Gzx9Drd tt/Vw uHBF7bLwwI jpVtW C8a3DyTtq5 ru7X7 XhJ3KtlfGG /0D88 luq9bVQbPV QJ1qT +2EXgnvaER 8AQ0A xpQj7QD4yr 3AnAG C0zrgfa5mX ReAvh +5kHvQjoVo 5s0bp Ymoe2wJmor ssnxg uHVQDHLdRw F6k/y g9dMei6Fg/ KVYFn sZTJPsyBdb Nish+c 3RBUA1be2Z RfkCr LbT9+jHoRl hXhRi NqR4/10suc CuPin chH2bLQKdZ d+9Gb b8wub5YtBF 1Upwj xPCRVJulf0r zxxEIR0D10 H4b6u rVvXP8HqSh g5Jwk Uaq37J+ON2 NHpUT wuWg8IaU40 EfloN Sc1JUf4dWy T3MHh 3r+e2t9QFq npWRv 3AUDJyVlJd p5V9/ 1Em79Mm/c1 uY/R5 2MBY8dLry3 H8H/d 0gxaHFJ2vh 3RyZW LpDxXeTN3g agoxM sVbEP1kcnt 8PD4+ OyAkUN6czu o5IDA iz0UcTnw8V 0Rlc3 UqVLS0MRHc Uj4+C yHpXM6vbsf zNyAw ZB8loxl1BV 9EWzI 0WGThFx1WH VogMz VkOLA1ZT88 bGxdP r7XGN0hx1Z qCjM4 NOBeq6FfFr w8L0R bMjYgMCBSL 1hZWi GaHqV7EJSa bnVsb F0+PgplbmR vYmoK MzkgMCBvYm oKPDw vRFsyNiAwI FIvWF wuTHR1DDPw NCBud WxsXT4+CmV uZG9i hwj7AGWrJH 9iago 0YY2SNyW2B DAgUi 9YWVogMzYg MzgzI N69eIkiUv9 KZW5k y1YnRaSdNW Agb2J sKgc4G3KrB jcgMC NCE3rAXwZ6 MyA0N DYgbnVsbF0 +Pgpl bmRvYmoKND IgMCB vYmoKPDwvR FsyNy AwIFIvWFla IDM2I YB6DdIsxAh sXT4+ EhSnNR8lzl o0MyA aEP1jrpw3W C9EWz A7MVJfNa6C WVogM zYgNDQwIG5 1bGxd Ea0MUX3nd1 JqCjQ 0PRUlg4RmD jw8L0 RbMjcgMCBS L1hZW iAzNiAzODM gbnVs bF0+Pgplbm RvYmo KNDUgMCBvY moKPD wvRFsyNiAw IFIvW GmpYME8PPF xNCBu dWxsXT4+Cm VuZG9 mzvl4OeMcH G9iag l3IY0NTgT2 IDAgU v0TBKunIhE gNDAz JB36gOcnHu 4KZW5 bd5WwWkQ9S DAgb2 NrMlj6L4Am MjYgM JXGQ4lYLwD zNiAy MjMgbnVsbF 0+Pgp lbmRvYmoKN DggMC BvYmoKPDwv RFsxO SAwIFIvWFl aIDM2 IDQwNSBudW xsXT4 +JpHnGM0ob go0OS HoAI0grye9 PC9EW gP7WBYpKm3 YWVog SCViBJD6VF 51bGx eIl4GTV5wl 2JqCj SlGZKkf0Sv Cjw8L 0RbMjcgMCB SL1hZ FqP5WuN5VM cgbnV sbF0+Pgplb mRvYm oKNTEgMCBv YmoKP DwvRFsyNyA wIFIv MWozTLL3SC YwOSB udWxsXT4+C mVuZG 1svaa7VtQd IG9ia or0AV1MXuZ 2IDAg Cn0NLKwuNm YgNjg mGP34uEaiP j4KZW 7kx8RbCtLh IDAgb 4JgSga3V1S bMjYg JBCQX5mBSh AzNiA zOTEgbnVsb F0+Pg plbmRvYmoK NTQgM CBvYmoKPDw vRFsy NiAwIFIvWF laIDM 3XEC3MLKsz WxsXT 4+SaEcJA6o ago1N XXyBG0lmgx 8PC9E GnR1APPbKz 9YWVo gMzYgNDAyI G51bG ufVt1PXD1g b2JqC yM0IVLcn2D qCjw8 C7AmRZwdGD BSL1h XOiBwGlC4X TAgbn VsbF0+Pgpl bmRvY moKNTcgMCB vYmoK PDwvRFsyNi AwIFI iWTymXQS9N DY4MC BudWxsXT4+ CmVuZ X5xrga5RCX wIG9i wcw7VB0SAv I3IDA qXx1USMypP zYgNj E6NA60gPuz Pj4KZ U3hj0AqQqM 5IDAg f3QoBtq4S0 RbMTk jZYJQW7lXT iAzNi F8SPjvebHb bF0+P gplbmRvYmo KNjAg MCBvYmoKPD wvRFs yNyAwIFIvW FlaID Y2ZNN6QUZh dWxsX T4+CmVuZG9 iago2 HAFnEN3qmd o8PC9 KYdZ3KCHqD i9YWV ogMzYgNjgw IG51b IlqNv7ZDG2 kb2Jq CjYyIDAgb2 JqCjw 1Q3XdXcAxN CBSL1 nYPpB2XzV0 Nzggb nVsbF0+Pgp lbmRv YmoKNjMgMC BvYmo KPDwvRFsxO SAwIF IvWFlaIDM2 IDMzM SBudWxsXT4 +CmVu NL8qpmk8LJ AwIG9 jnst9CV0EV zI3ID WnTl6VEWgb MzYgN zR4ZN31nOe dPj4K PK8ju2XvUo Y1IDA jj3DrFjs5D 0RbMj IvCNSJV4fX WiAzN wB5JTVidnI sbF0+ PgplbmRvYm oKNjY gMCBvYmoKP DwvRF syNiAwIFIv WFlaI PB8TSUjNRW udWxs XT4+CmVuZG 9iago 6JoYbHJ8uc go8PC 2UWgV6DGHr Ui9YW VogMzYgNDA 1IG51 yVhpZo8ZOW 5kb2J wYnT5BYSlh 2JqCj u6U4TkRdSy MCBSL 1hZWiAzNiA 0MTQg bnVsbF0+Pg plbmR vYmoKNjkgM CBvYm oKPDwvRFsy NiAwI FIvWFlaIDM 2IDQx NCBudWxsXT 4+CmV qAQ9ncdq5A CAwIG 9yrub4TJ5G WzI2I NRnYi8DRTu gNDMg RHM0GN69dJ xdPj4 PII8pi3XlO jcxID Eke8OwBkz7 L0RbM qOcVYIAT2w ZWiAz UnQ6AKSasm VsbF0 +PgplbmRvY moKNz IgMCBvYmoK PDwvR FsyNyAwIFI vWFla SBS9TZDuSX BudWx sXT4+CmVuZ G9iag x0VaQwQC9w ago8P V4BHwG7LTS gUi9Y WVogMzYgMz kxIG5 9dBgcFj5ZZ W5kb2 CgBpi2ITDy b2JqC jf2K4AcFhQ gMCBS F7gXMeCiQj A0MTQ gbnVsbF0+P gplbm RvYmoKNzUg MCBvY moKPDwvRFs yNiAw IFIvWFlaID M2IDM 5MSBudWxsX T4+Cm HqVP1udiv1 NiAwI K6olyu2JU6 EWzE5 JLBhTi3MZV ogMzY bYJZnTY73t GxdPj 3CGV2cx1Sc CjM2I HXmn5IdBzg 8L05h bWVzWyhfOT U0NDA wYTYtYWVkN C00Nz O7EKT5YUJa ZmZiN QYfZKV3SHj kKSAz NyAwIFIoX2 U4NjR aBznrKFN4C jUtND g6TC1fIsip LWViY yqlCKt0ECE 0NSkg MzggMCBSKF 81OTE oDrY6Sk3kS WFjLT QxYjMtYWQ1 Ny1mZ eA5IbPxQVQ hYzMp OEI7TQNxFe hfZGM 5O7U3ONcoH TJlYi 00ZDYzLWEz MzgtN TljNGNhZDI 4YmY1 VOK4OHJpKL IoXzA aNgY4JFR1B TVjMz IpGPd3VQ1f NmJjL WFjZDNiNTJ mNjcy OSkgNDEgMC BSKF9 sZmw1EHDfJ y0wYj VkLTRmNDYt YTQyO M68RNDiDXD 4NmNj ZmUpIDQyID AgUih fMzExNTEyM TAtZD z9GJ75YjSt LTk2O DMtODJmODA wOTI1 VuDyUIA2Ok AwIFI lBqY2KlUYR TFBLT C6BYTnUWBy My1CQ TkyLTkyNUY 0NzYx MTZGQykgND QgMCB BGM1mYOo9O WE0ZC 05ZWYxLTQw MDgtY JGiLU8uGMC 1N2Rj NjVjOTApID Q1IDA zZnikU4B9I mE2Zj JoJWFxYc64 YTE0L TljZTEtZmJ hZWM2 XLHwVwq6MA A0NiA wIFIoXzNlN 2VjMD UoJIG8Elzb NGQ4M Z74YyVkJMB jNGFl NmMzNmFiMi kgNDc sQJMOJK3mR WFiYT W7Fi7qInL2 LTQxZ DktYjZjNS0 1ZDk3 KPY4UwW0V0 UpIDQ 4IDAgUihfM WQyMm NhZmMtZGI3 Ny00Z NguISD3BqY tZTI2 OlSnNNI3BU I2KSA 0OSAwIFIoX zM3Yj JlMWFiLTJm MmYtN GX9RU6mZDU 0LTk4 DsE1THBnDj lmYik gNTAgMCBSK F80ZD J0OlI7JK1x ODcyL NP2DfWaKKB jMS01 RROyVWE5FC M4NjA pIDUxIDAgU ihfOW RlZDViZWMt MzdhO R65LlDsWWT mZTQt MWJjOGUxOD E3ODg 3TKK4QuArS FIoX2 AwJOw3OrVl LTIxZ TUtNDFiYy1 iODQ5 GNmsPiL4Gp BhOTd kZCkgNTMgM CBSKF 3wWiOeGTA4 MS04N fhvSMN3YdV tYWNj VJ3uJeN7Or QwZTZ eZHBmVRR5Z DAgUi suAnJ4HKyu NDYtY yNlYj75EhH 5LWI1 ZjktYzhlMm Y3OWM rJdfeFZB3G SAwIF IoZmFmMjQ5 MDctM 1BnXb71LTD zLWE2 CjZcRjY9ZI RiYTk 8GcQsOTV0D iAwIF IoXzkzOGYw MjVkL TRjZDItNDU 5Ny05 YTAyLThmNT JhMGN eLKN9XodlZ TcgMC FFSS0yVCU8 MzU4O G8aBTEkBII hY2Mt VJDeLW0rZj U3MGI zNTZmNzcpI DU4ID CpStzSW21H LSBEa FWayQCgE6N gU3Vt bWFyeSkgNT kgMCB JUZ19RLD1M zkzYy 2gNUjgRBN3 YmUtO AC0Mc4nMEX yY2Iw MTIzYjMpID YwIDA gUihfNWRmZ DE5ZW GiUKOcXM00 OGI4L So1FIPyXGO yMzA4 EVWwVrR8RV A2MSA cKKUoQok5C zdhYj VrESG3AbIk NDA2Y g6dJsR1MAX wZDY5 LvY9Fhs2Gn kgNjI vQUFDRV53L GEyYW DqXj2cYLRf LTQ3O BKcHlS7SJ2 2ODRj NmUyMWZiZW EpIDY zIDAgUihfN jkzM2 MyYTYtNjQ5 NS00Z CX7ZPxrJPC tYzEw WAC5FoB5GD MzKSA 2NCAwIFIoX zlhOW YwNjAwLTg3 ODQtN FX0Oe7uOtD wLTM0 HJGqJEu1Ls EwMik gNjUgMCBSK F81NG PbKNTvKA0z NzZmL TQxODQtOWV hOS1k CoH6KcOwUY NmZDc rUKM5UPFbK ihfND FlODgxYWUt ODBhM k78ICVhSZX hMzAt Z8ZhO2RyTD g4NWY oPCX2SkCgM FIoX2 UzYTJiMGMz LTgzM 6FeHPR0HJ3 4YTNh ALI0FzK4N2 Y2OWU xNykgNjggM CBSKF 19YvTsGKH0 NC1iM jYwLTRmNzk tODBi TE0xAsR0FG RmMGY 8PxYqKKY5J DAgUi prR9PqNdZg YTgtO CWsHZ95MvS iLThl MGQtNDNhNm Y4MmQ dNUCpJDX6Y CAwIF ZwZ9KoGIS3 ZWViL HD5AAWhEIN lYy04 P3B8LZD9Mq BmNDl iCAH7SItdA zEgMC IDAY79SGq6 Yjk4M U73TSxwAJN 4Nzkt VLS3CF8zM8 EyOTQ 4YjAwMjIpI DcyID AgUihfNWU4 NDhlN 9FbAqGwIw3 0NDVk LThjZTMtNj U3YTU hKxe4YwTsJ SA3My TaYIXoR3R5 OTIzM sWkLFG2C3I tNDIy DA4bWTBsMX FmZTU yMTEzNDAwZ CkgNz AmFNBDFB75 NzI5M RJ8QU4mAvM kLTRk OTItODVmMS 1hOWY zNmQyYmRmM GMpID x6JMKqYjzq MjM3Z YFlXx1wPAM hLTQ1 NGPlGFR0Fd 05Yzc 3LgLuWyL0O 2MpID p6TXHsGh2+ Pgplb mRvYmoKMTQ gMCBv YmoKPDwvRG VzdCh XQ25NRGTPe XNjaG HjS6NdB0Dz bWFye SkvUGFyZW5 0IDEw NWIrRw9DjI RsZTx mPFJuCKU1G DAwNj kwMDczMDA2 MzAwN jgwMDYxMDA 3MjAw LyexJVY1LZ AyMDA yVYClCFa9R DA2ZD AwNmQwMDYx MDA3M jAwNzk+Pj4 KZW5k s8VgQox8OL Agb2J yLkf8F74rX ERhdG UoRDoyMDIw MDUyM dQ6NgEiSz3 wNCcw UYiaP2NyQW F0aW9 nOSO1KSqMK jIwMj AwNTIzMTQy MTI3K f66AsWgNpd vUHJv ZHVjZXIoSW JleCB QWKTjB2CkM XRvci Y9GokbYM5g NS84N LD4TWgFYBF BXVAv ZxumzV9nnW ZpZWQ gdXNpbmcga VRleH JwYy7nHipm YnkgM VQzWFQpPj4 KZW5k w0VdXjvcPL YKMCA 3OAowMDAwM DAwMD LeDWT7BFC8 IGYgC jAwMDAwMDA wMTUg MDAwMDAgbi AKMDA wMDAwMDEwM yAwMD AwMCBuIAow MDAwM RUtELy0LMO wMDAw YA8yNhQpXI AwMDA zMTUgMDAwM DAgbi AKMDAwMDAw MDM5M SAwMDAwMCB uIAow MDAwMDAwNT I3IDA uARAwYU0pE jAwMD YnHBN5MNVr MDAwM DAgbiAKMDA wMDAw MDczOCAwMD AwMCB uIAowMDAwM DI5ND gzIDAwMDAw IG4gC jAwMDAwMDA 5MTkg MDAwMDAgbi AKMDA cSLOaWLv5V CAwMD AwMCBuIAow MDAwM VB7MZYhOIA wMDAw NK9zAnCpOV AwMDg 1MTcgMDAwM DAgbi AKMDAwMDAz MzI0O SAwMDAwMCB uIAow MDAwMDAwOT czIDA uTVEzCT0qP jAwMD AwMDEwMDgg MDAwM DAgbiAKMDA wMDAw ExD3WxTaFJ AwMCB uIAowMDAwM DAzOD YwIDAwMDAw IG4gC jAwMDAwMDg xNjgg MDAwMDAgbi AKMDA gJQGxYHc1L yAwMD AwMCBuIAow MDAwM UL3OJs6KDL wMDAw XE3iNdRyHN AwMTI 0ODAgMDAwM DAgbi AKMDAwMDAx MjI3N CAwMDAwMCB uIAow MDAwMDEyMz czIDA iMHUsMS6fG jAwMD AwMTIxNzMg MDAwM DAgbiAKMDA wMDAx SzH4OSCiXG AwMCB uIAowMDAwM DI2NT UxIDAwMDAw IG4gC jAwMDAwMTI 1ODQg MDAwMDAgbi AKMDA oOVIeFvk0G yAwMD AwMCBuIAow MDAwM XJ6RtGcQVO wMDAw XM5oCyFjXX AwMTc 0MTIgMDAwM DAgbi AKMDAwMDAy MjA2M CAwMDAwMCB uIAow MDAwMDIyMj QzIDA pLIEtAS1lC jAwMD AwMjcxNzcg MDAwM DAgbiAKMDA wMDAy Pdz3AMFqIK AwMCB uIAowMDAwM DMxMz s8JPBvCQAu IG4gC jAwMDAwMjk 1MTYg MDAwMDAgbi AKMDA hEKYhCHK0Y yAwMD AwMCBuIAow MDAwM DQ0OwAtDEP wMDAw DO7wYaQrYM AwMjk 2NTcgMDAwM DAgbi AKMDAwMDAy OTcwN CAwMDAwMCB uIAow GEMgINS9Nc UxIDA uOJQkQX1rT jAwMD CkWti2IPsr MDAwM DAgbiAKMDA wMDAy LZx6KLKeDN AwMCB uIAowMDAwM DI5OD kyIDAwMDAw IG4gC jAwMDAwMjk 5Mzkg MDAwMDAgbi AKMDA pTLUkCUm2H iAwMD AwMCBuIAow MDAwM DMwMDMzIDA wMDAw BQ8iQpPaPA AwMzA wODAgMDAwM DAgbi AKMDAwMDAz MDEyN yAwMDAwMCB uIAow MDAwMDMwMT c0IDA mMLJpZV4hN jAwMD AwMzAyMjEg MDAwM DAgbiAKMDA wMDAz NTN1JOQkSW AwMCB uIAowMDAwM DMwMz M3VVIwOJGg IG4gC jAwMDAwMzA zNjIg MDAwMDAgbi AKMDA wMDAzMDQwO SAwMD AwMCBuIAow MDAwM KOyXAQ5CGX wMDAw OT8sNmWpGN AwMzA 1MDMgMDAwM DAgbi AKMDAwMDAz MDU1M CAwMDAwMCB uIAow MDAwMDMwNT k3IDA wKUToQL1hA jAwMD IrXeJ1PHWn MDAwM DAgbiAKMDA wMDAz RCR3WRDbVC AwMCB uIAowMDAwM DMwNz A0CHCeGRGj IG4gC jAwMDAwMzA 3ODUg MDAwMDAgbi AKMDA wMDAzMDgzM iAwMD AwMCBuIAow MDAwM VSvQYm5JLQ wMDAw MG5bNqPaXO AwMzA 5MjYgMDAwM DAgbi AKMDAwMDAz MDk3M yAwMDAwMCB uIAow MDAwMDMxMD IwIDA zJMVpQL9yU jAwMD AwMzEwNjcg MDAwM DAgbiAKMDA wMDAz MTExNCAwMD AwMCB uIAowMDAwM DMxMT YxIDAwMDAw IG4gC jAwMDAwMzE yMDgg MDAwMDAgbi AKMDA qLBWjSGZ1M SAwMD AwMCBuIAow MDAwM DMxMzAyIDA wMDAw LB4eMtEtEA AwMzE zNDkgMDAwM DAgbi AKMDAwMDAz MzM5N CAwMDAwMCB uIAp0 cmFpbGVyCj w8L0l vVi5aDqghS CBSL0 zOGPn1AJmq MjEyZ jBiNTlhOGN iYjAx HFD2JOR5ZJ JiZDl mMGQ+PGUzN jhiYT FaLEU5MFKy MmE1Z GJiNjNkZjM xMjQ4 VLPdUe1vAv 9vdCA 8UPOxKy8Sv XplID s7Dl4Oq0Fs cnR4c mVmCjMzNTc 0CiUl [id number]== ID Date Data Source {[id number] 02/22/2020 12:18:00 PM EDT [facility] [id number]} [facility] Patient: MARIELA ROME Age: 69 years Sex: Female : 1950 Associated Diagnoses: None Author: Hood Brooks CRNA Basic Information Allergies: Allergic Reactions (Selecte d)Severity Not DocumentedAmoxicillin- No reactions were documented.Azithromycin o phthalmic- No reactions were documented.Compazine- No reactions were documented.Cranberry- No reactions were documented.Flu vaccines- Pneumonia.Grape s- No reactions were documented.Latex- No reactions were documented.Latex Exam Barb ves MISC- No reactions were documented.Lipitor- No reactions were do cumented.Norvasc- Tachycardia.Omeprazole- No reactions were documented.Penicillin- Ra sh.Propranolol- Asthma.Shellfish- Rash.Sulfa drugs- Rash.Zithromax- No reactions were documented.. Medications Current medications: (Selected) Inpatient Medic ationsOrderedAtivan: 0.5 mg, 0.25 mL, IV, q6hr, PRN: AnxietyBotox (obsolete): 200 unit, 2 EA, ENDO, OnceCardizem: 10 mg, 2 mL, IV, Once, PRN: Elevated Heart [id number] wi th 0.45% NaCl 1,000 mL: 50 mL/hr, IV Infusion, Stop: 03/22/20 16:20:00 EDTNit ro-Dur: 0.6 mg, 1 patch(es), TD, DailyProtonix IV: 40 mg, IV, [id number] Flush 0.9%: 5 mL, IV, DailySaline Flush 0.9%: 5 mL, IV, q12hr, PRN: Otherheparin : 5,000 unit, 1 mL, Subcutaneous, [id number] MedicationsDocumentedDilt iazem Hydrochloride ER 360 mg/24 hours oral capsule, extended release: 360 mg, 1 cap , Oral, Daily, 0 Refill(s)Pantoprazole: 40 mg, Oral, BID, 0 Refill(s)Ventolin HFA: 2 puff(s), INH, QID, 0 Refill(s)Vitamin D3 2000 intl units oral tablet: 2,000 IntUn it, 1 tab, Oral, Daily, 0 Refill(s)aspirin: 81 mg, Oral, Daily, 0 Refill(s)busPIRone 15 mg oral tablet: 15 mg, 1 tab, Oral, TID, 0 Refill(s)lorazepam 1 mg oral tablet: 1 mg, 1 tab, Oral, Daily, PRN: as needed for anxiety, 0 Refill(s)losartan 25 mg oral tablet: 25 mg, 1 tab, Oral, Daily, 30 tab, 0 Refill(s)nitroglycerin 0.6 mg/hr transde rmal film, extended release: 1 patch(es), TOP, Daily, 0 Refill(s)ondansetron 4 mg oral tablet, disintegratin mg, 1 tab, Oral, TID, allow tablet to dissolve on t ongue, 0 Refill(s)simvastatin: 40 mg, Oral, QHS, 0 Refill(s). VS/Measurements Vital Signs 02/22/2020 10:44 EDT Temperature Oral 97.8 DegF Systolic Blood Pressure 111 m mHg Diastolic Blood Pressure 72 mmHg Mean Arterial Pressure, Cuff 85 mmHg Heart R ate Monitored 82 bpm 02/22/2020 5:50 EDT Temperature Oral 97.9 DegF Systolic Blo od Pressure 126 mmHg Diastolic Blood Pressure 83 mmHg Mean Arterial Pressure , Cuff 97 mmHg Blood Pressure Site Right arm Heart Rate Monitored 77 bpm Respirator y Rate 20 br/min 02/22/2020 2:28 EDT Temperature Oral 98.1 DegF Systolic Blo od Pressure 111 mmHg Diastolic Blood Pressure 71 mmHg Mean Arterial Pressure , Cuff 84 mmHg Blood Pressure Site Right arm Heart Rate Monitored 77 bpm Respirator y Rate 20 br/min 02/21/2020 21:39 EDT Temperature Oral 97.6 DegF Systolic Blo od Pressure 104 mmHg Diastolic Blood Pressure 66 mmHg Mean Arterial Pressure , Cuff 79 mmHg Heart Rate Monitored 85 bpm Respiratory Rate 18 br/min , Vital Sig ns (last 24 hrs) Last Charted Temp Oral 97.8 Deg F (FEBRUARY 21 10:44)Resp Rate 20 br/min (FEBRUARY 21 05:50)SBP 111 mmHg (FEBRUARY 21:44)DBP 72 mmHg (FEBRUARY 21:)SpO2 100 % (FEBRUARY 21:) Past Medical Hi story/Problems: All ProblemsAngina pectoris / [id number] / ConfirmedAnxiety / [id number] / ConfirmedAsthma / [id number] / ConfirmedChest pain / [id number] / Confirm edShortness of breath / [id number] / ConfirmedPre-operative cardiovascular ex amination / Z01.810 / ConfirmedAcid reflux / [id number] / ConfirmedHyperlipidemia / [id number] / ConfirmedHypertension / [id number] / ConfirmedObstructive sleep apnea / [id number] / Confirmed. Procedure history: EGD - SN (None) on 02/15/2020 at 69 Years.Comme nts:02/15/2020 14:56 BOBBY - Perfecto Del Angel RN-populated from documented surgical caseEGD - SN (None) on 12/02/2018 at 68 Years.Comments:12/02/2018 18:54 ELIESER Isaacs RN, Kiersten Walter-populated from documented surgical casethyroid nodule r emoved.. Social History Social and Psychosocial AiwoowOtjmmcn45/28/2020 Lema s the patient smoked? Never smoker Concerns about tobacco use in household: No2019 Has the patient smoked? Never smoker Concerns about tobacco use in household: No02/13/2020 Has the patient smoked? Never smoker Concerns about tobacco use in ho usehold: No02/20/2020 Has the patient smoked? Never smoker Concerns about tob acco use in household: NoBlood Zbvosbtswz65/28/2020 Blood Management L evel Accepts blood02/06/2020 Blood Management Level Level 2: Blood Conserva ti02/15/2020 Blood Management Level Accepts blood02/20/2020 Blood Management Level Level 2: Blood Conservati. Results review: Lab results (data) 02/22/2020 5:48 EDT WB C 5.0 x10(3)/mcL RBC 4.55 x10(6)/mcL Hgb 11.0 gm/dL LOW Hct 34.5 % LOW MCV 76 fL LOW MCH 24.2 pg LOW MCHC 31.9 gm/dL LOW RDW 19.3 % HI Platelet 269 x10(3) /mcL MPV 8.0 fL LOW Neut Auto 45.6 % LOW Lymph Auto 37.0 % [place] Auto 13.0 % HI Eos Auto 3.8 % Baso Auto 0.6 % Neut Absolute 2.3 x10(3)/mcL Lymph Absolute 1.9 x10(3)/mcL [place] Absolute 0.7 x10(3)/mcL Eos Absolute 0.2 x10(3)/mcL Baso Absolu te 0.0 x10(3)/mcL Glucose Lvl 93 mg/dL BUN <1.0 mg/dL LOW Creatinine 0.53 mg/dL eGFR-AA >90 mL/min/1.73m2 eGFR-SUDHIR >90 mL/min/1.73m2 BUN/Creat Ratio 0.5 ratio LOW Sodium Lvl 140 mmol/L Potassium Lvl 4.2 mmol/L Chloride 110 mmol/L HI CO2 24 mmol/L AGAP 6 Calcium Lvl 8.9 mg/dL 02/21/2020 4:51 EDT WBC 5.5 x10(3)/mcL R BC 4.71 x10(6)/mcL Hgb 11.2 gm/dL LOW Hct 35.0 % LOW MCV 74 fL LOW MCH 23.8 pg LOW MCHC 32.1 gm/dL RDW 18.8 % HI Platelet 301 x10(3)/mcL MPV 7.9 fL LOW Neut Auto 55.1 % Lymph Auto 30.3 % [place] Auto 10.8 % Eos Auto 3.2 % Baso Auto 0.6 % Neut Absolute 3.0 x10(3)/mcL Lymph Absolute 1.7 x10(3)/mcL [place] Absolute 0 .6 x10(3)/mcL Eos Absolute 0.2 x10(3)/mcL Baso Absolute 0.0 x10(3)/mcL Glucose Lv l 126 mg/dL HI BUN 3.1 mg/dL LOW Creatinine 0.53 mg/dL eGFR-AA >90 mL/mi n/1.73m2 eGFR-SUDHIR >90 mL/min/1.73m2 BUN/Creat Ratio 5.9 ratio LOW Sodium L vl 141 mmol/L Potassium Lvl 4.5 mmol/L Chloride 111 mmol/L HI CO2 23 mmol/L AGAP 7 Calcium Lvl 9.1 mg/dL ALT 16 IU/L AST 16 IU/L Alk Phos 115 IU/L Total Pr otein 6.4 gm/dL Albumin Lvl 3.2 gm/dL LOW Glob 3.2 gm/dL A/G Ratio 1.0 ratio Osvaldo i Total 0.8 mg/dL Magnesium 1.7 mg/dL 02/20/2020 17:01 EDT Rapid COVID-19 Negat alfie Rapid COVID-19 Interp Rapid COVID-19 Interp COVID Source [employer] Swab 02/20/2020 1 6:58 EDT WBC 7.1 x10(3)/mcL RBC 5.11 x10(6)/mcL Hgb 12.1 gm/dL Hct 37.8 % MCV 74 fL LOW MCH 23.6 pg LOW MCHC 31.9 gm/dL LOW RDW 19.3 % HI Platelet 315 x10(3)/mcL MPV 7.8 fL LOW Neut Auto 57.9 % Lymph Auto 28.4 % [place] Auto 9.7 % E os Auto 2.4 % Baso Auto 1.6 % Neut Absolute 4.1 x10(3)/mcL Lymph Absolute 2.0 x10(3)/mcL [place] Absolute 0.7 x10(3)/mcL Eos Absolute 0.2 x10(3)/mcL Baso Absolu te 0.1 x10(3)/mcL INR 1.3 ratio HI PT 14.6 second(s) HI APTT 39.5 second(s) HI Glucose Lvl 140 mg/dL HI BUN 2.8 mg/dL LOW Creatinine 0.57 mg/dL eGFR-AA >90 mL/m in/1.73m2 eGFR-SUDHIR >90 mL/min/1.73m2 BUN/Creat Ratio 5.0 ratio LOW Sodium L vl 138 mmol/L Potassium Lvl 3.3 mmol/L LOW Chloride 107 mmol/L CO2 21 mmol/L LOW AGAP 11 Calcium Lvl 9.5 mg/dL ALT 17 IU/L AST 18 IU/L Alk Phos 124 IU/L Total Pr otein 7.0 gm/dL Albumin Lvl 3.6 gm/dL Glob 3.4 gm/dL A/G Ratio 1.1 ratio Bili Tot al 0.9 mg/dL Magnesium 1.6 mg/dL 02/19/2020 6:28 EDT WBC 5.8 x10(3)/mcL RBC 4.60 x1 0(6)/mcL Hgb 10.8 gm/dL LOW Hct 34.8 % LOW MCV 76 fL LOW MCH 23.4 pg LOW M CHC 31.0 gm/dL LOW RDW 19.0 % HI Platelet 276 x10(3)/mcL MPV 8.0 fL LOW Neut A uto 49.6 % LOW Lymph Auto 32.5 % [place] Auto 12.8 % HI Eos Auto 4.4 % Baso Auto 0 .7 % Neut Absolute 2.9 x10(3)/mcL Lymph Absolute 1.9 x10(3)/mcL [place] Absolute 0 .7 x10(3)/mcL Eos Absolute 0.3 x10(3)/mcL Baso Absolute 0.0 x10(3)/mcL Glucose Lv l 98 mg/dL BUN <1.0 mg/dL LOW Creatinine 0.48 mg/dL eGFR-AA >90 mL/min/1.73m2 e GFR-SUDHIR >90 mL/min/1.73m2 BUN/Creat Ratio -999.0 ratio LOW Sodium Lvl 140 mmol/L Potassium Lvl 3.2 mmol/L LOW Chloride 108 mmol/L HI CO2 22 mmol/L LOW AGAP 10 Calcium Lvl 8.6 mg/dL ALT 15 IU/L AST 20 IU/L Alk Phos 98 IU/L Total Protein 5. 8 gm/dL LOW Albumin Lvl 2.8 gm/dL LOW Glob 3.0 gm/dL A/G Ratio 0.9 ratio LOW Bili Total 0.5 mg/dL 02/18/2020 5:03 EDT WBC 5.1 x10(3)/mcL RBC 4.77 x10(6)/mcL Hgb 11.3 gm/dL LOW Hct 36.3 % MCV 76 fL LOW MCH 23.7 pg LOW MCHC 31.1 gm/dL LOW RDW 19.1 % HI Platelet 313 x10(3)/mcL MPV 7.9 fL LOW Neut Auto 57.0 % Lymph Au to 27.5 % [place] Auto 10.6 % Eos Auto 4.2 % Baso Auto 0.7 % Neut Absolute 2.9 x10 (3)/mcL Lymph Absolute 1.4 x10(3)/mcL [place] Absolute 0.5 x10(3)/mcL Eos Absolute 0. 2 x10(3)/mcL Baso Absolute 0.0 x10(3)/mcL Glucose Lvl 109 mg/dL HI BUN <1.0 mg/d L LOW Creatinine 0.59 mg/dL eGFR-AA >90 mL/min/1.73m2 eGFR-SUDHIR >90 mL/min/1.73m 2 BUN/Creat Ratio 0.2 ratio LOW Sodium Lvl 142 mmol/L Potassium Lvl 3.6 mmol/L Ch loride 109 mmol/L HI CO2 25 mmol/L AGAP 8 Calcium Lvl 9.0 mg/dL ALT 16 IU/L AST 22 IU/L Alk Phos 104 IU/L Total Protein 6.1 gm/dL Albumin Lvl 3.1 gm/dL LOW Glob 3.0 gm/dL A/G Ratio 1.0 ratio Bili Total 0.7 mg/dL Magnesium 1.7 mg/dL 02/17/2020 5:39 EDT WBC 5.5 x10(3)/mcL RBC 4.51 x10(6)/mcL Hgb 10.7 gm/dL LOW Hct 34. 1 % LOW MCV 76 fL LOW MCH 23.6 pg LOW MCHC 31.3 gm/dL LOW RDW 18.7 % HI Pl atelet 299 x10(3)/mcL MPV 7.7 fL LOW Neut Auto 56.5 % Lymph Auto 28.7 % [place] Aut o 10.5 % Eos Auto 3.4 % Baso Auto 0.9 % Neut Absolute 3.1 x10(3)/mcL Lymph Abs olute 1.6 x10(3)/mcL [place] Absolute 0.6 x10(3)/mcL Eos Absolute 0.2 x10(3)/mcL Baso Absolute 0.0 x10(3)/mcL Glucose Lvl 112 mg/dL HI BUN <1.0 mg/dL LOW Crea tinine 0.56 mg/dL eGFR-AA >90 mL/min/1.73m2 eGFR-SUDHIR >90 mL/min/1.73m2 BUN/Creat Ra tara 0.4 ratio LOW Sodium Lvl 140 mmol/L Potassium Lvl 3.4 mmol/L LOW Chloride 110 mmol/L HI CO2 24 mmol/L AGAP 7 Calcium Lvl 8.8 mg/dL 02/16/2020 5:07 EDT WBC 6.8 x10(3)/mcL RBC 4.66 x10(6)/mcL Hgb 11.0 gm/dL LOW Hct 35.4 % LOW MCV 76 fL LOW MCH 23.7 pg LOW MCHC 31.2 gm/dL LOW RDW 19.1 % HI Platelet 309 x10(3) /mcL MPV 7.9 fL LOW Neut Auto 68.6 % Lymph Auto 20.5 % [place] Auto 8.6 % Eos Auto 1.6 % Baso Auto 0.7 % Neut Absolute 4.7 x10(3)/mcL Lymph Absolute 1.4 x10(3 )/mcL [place] Absolute 0.6 x10(3)/mcL Eos Absolute 0.1 x10(3)/mcL Baso Absolute 0 .0 x10(3)/mcL Glucose Lvl 90 mg/dL BUN 1.9 mg/dL LOW Creatinine 0.62 mg/dL eGFR- AA >90 mL/min/1.73m2 eGFR-SUDHIR >90 mL/min/1.73m2 BUN/Creat Ratio 3.1 ratio LOW Sodium Lvl 140 mmol/L Potassium Lvl 3.9 mmol/L Chloride 107 mmol/L CO2 20 mmol/L LOW AGAP 13 Calcium Lvl 9.1 mg/dL ALT 12 IU/L AST 16 IU/L Alk Phos 106 I U/L Total Protein 6.5 gm/dL Albumin Lvl 3.2 gm/dL LOW Glob 3.3 gm/dL A/G Ratio 1. 0 ratio Bili Total 1.0 mg/dL Magnesium 1.8 mg/dL 02/15/2020 13:09 EDT Type and Cross Match Completed N/A Type and Screen Completed N/A 02/15/2020 6:26 EDT UA [place] r Yellow UA Appear Clear UA pH 5.5 UA Spec Grav 1.010 UA Glucose Negative mg/dL U A Ketones 80 (3+) mg/dL UA Urobilinogen 0.2 EU/mL UA Bili Negative UA Blood Negati ve UA Protein Negative mg/dL UA Nitrite Negative UA Leuk Est Negative 02/15/2020 5:29 EDT pH [place] 7.31 pCO2 [place] 30 mmHg LOW pO2 [place] 72 mmHg HCO3 [place] 15.1 mmol/L L OW BE(B) [place] -9.8 mmol/L LOW CO2 Totl [place] 16 LOW sO2m [place] 97 % vol HI [employer] Name: KATIA Draw Date: [id number] Draw Time: 519 Analyzed Date 02/15/2020 Analyzed Time 52702/15/2020 4:34 EDT Rapid COVID-19 Negative Rapid COVID-19 Interp Rapid CO VID-19 Interp COVID Source [employer] Swab 02/15/2020 4:05 EDT WBC 9.6 x10(3)/mcL RBC 5.13 x1 0(6)/mcL Hgb 12.2 gm/dL Hct 38.8 % MCV 76 fL LOW MCH 23.8 pg LOW MCHC 31.5 gm/ dL LOW RDW 18.9 % HI Platelet 362 x10(3)/mcL MPV 7.4 fL LOW Neut Auto 70.8 % Lymph Auto 18.7 % [place] Auto 8.5 % Eos Auto 0.5 % Baso Auto 1.5 % Neut Absolute 6.8 x10(3)/mcL Lymph Absolute 1.8 x10(3)/mcL [place] Absolute 0.8 x10(3)/mcL Eos Absolute 0.0 x10(3)/mcL Baso Absolute 0.1 x10(3)/mcL INR 1.2 ratio PT 14.5 s econd(s) HI Glucose Lvl 97 mg/dL BUN 3.5 mg/dL LOW Creatinine 0.74 mg/dL eGFR- AA >90 mL/min/1.73m2 eGFR-SUDHIR 78 mL/min/1.73m2 BUN/Creat Ratio 4.7 ratio LOW Sodium Lvl 137 mmol/L Potassium Lvl 3.7 mmol/L Chloride 104 mmol/L CO2 17 mmol/L LOW AGAP 16 HI Calcium Lvl 9.3 mg/dL Phosphorus 2.8 mg/dL ALT 16 IU/L AST 30 IU/L Alk Phos 140 IU/L HI Total Protein 7.7 gm/dL Albumin Lvl 4.0 gm/dL Glob 3.7 gm/dL A/G Ratio 1.1 ratio Bili Total 1.5 mg/dL HI Lactic Acid Lvl 1.8 mmol/L Lipase Lvl 31 IU/L Magnesium 1.9 mg/dL Troponin-I <0.03 ng/mL 02/06/2020 1 4:34 EDT WBC 9.1 x10(3)/mcL RBC 5.15 x10(6)/mcL Hgb 12.1 gm/dL Hct 38.3 % MCV 74 fL LOW MCH 23.6 pg LOW MCHC 31.7 gm/dL LOW RDW 18.3 % HI Platelet 387 x10(3)/mcL MPV 7.1 fL LOW Neut Auto 68.6 % Lymph Auto 20.8 % [place] Auto 8.9 % E os Auto 0.9 % Baso Auto 0.8 % Neut Absolute 6.3 x10(3)/mcL Lymph Absolute 1.9 x10(3)/mcL [place] Absolute 0.8 x10(3)/mcL Eos Absolute 0.1 x10(3)/mcL Baso Absolu te 0.1 x10(3)/mcL INR 1.2 ratio PT 14.2 second(s) HI Glucose Lvl 118 mg/dL HI BUN 6.1 mg/dL Creatinine 0.67 mg/dL eGFR-AA >90 mL/min/1.73m2 eGFR-SUDHIR 88 m L/min/1.73m2 BUN/Creat Ratio 9.1 ratio Sodium Lvl 139 mmol/L Potassium Lvl 4.2 mmol/L Chloride 109 mmol/L HI CO2 22 mmol/L LOW AGAP 8 Calcium Lvl 9.5 mg/ dL ALT 12 IU/L AST 17 IU/L Alk Phos 129 IU/L HI Total Protein 7.6 gm/dL Album in Lvl 4.0 gm/dL Glob 3.6 gm/dL A/G Ratio 1.1 ratio Bili Total 0.6 mg/dL Troponi n-I <0.03 ng/mL ABO/Rh O POS ABSC Gel Negative ABSC 02/06/2020 8:55 EDT UA Color Dk Yellow UA Appear Cloudy UA pH 7.0 UA Spec Grav 1.026 UA Glucose Negative mg/ dL UA Ketones 80 (3+) mg/dL UA Urobilinogen 1.0 EU/mL UA Bili Small (1+) UA Blood Negative UA Protein Negative mg/dL UA Nitrite Negative UA Leuk Est Negative UA WBC 0-5 /HPF UA RBC 2-5 /HPF UA Bacteria None Seen /HPF UA Epithelial Moderate / HPF UA Mucous Moderate /LPF 02/06/2020 7:50 EDT WBC 7.2 x10(3)/mcL RBC 4.98 x10(6)/ mcL Hgb 11.9 gm/dL Hct 36.8 % MCV 74 fL LOW MCH 23.8 pg LOW MCHC 32.2 gm/dL RDW 18.2 % HI Platelet 393 x10(3)/mcL MPV 7.0 fL LOW Neut Auto 65.5 % Lymph Au to 22.5 % [place] Auto 10.3 % Eos Auto 0.9 % Baso Auto 0.8 % Neut Absolute 4.7 x10 (3)/mcL Lymph Absolute 1.6 x10(3)/mcL [place] Absolute 0.7 x10(3)/mcL Eos Absolute 0. 1 x10(3)/mcL Baso Absolute 0.1 x10(3)/mcL INR 1.3 ratio HI PT 14.6 second(s) HI Glucose Lvl 123 mg/dL HI BUN 7.9 mg/dL Creatinine 0.73 mg/dL eGFR-AA >90 mL/mi n/1.73m2 eGFR-SUDHIR 80 mL/min/1.73m2 BUN/Creat Ratio 10.9 ratio Sodium Lvl 1 37 mmol/L Potassium Lvl 3.1 mmol/L LOW Chloride 104 mmol/L CO2 21 mmol/L LOW AGAP 12 Calcium Lvl 9.4 mg/dL ALT 13 IU/L AST 17 IU/L Alk Phos 111 IU/L Total Pr otein 7.6 gm/dL Albumin Lvl 3.9 gm/dL Glob 3.7 gm/dL A/G Ratio 1.1 ratio Bili Tot al 0.7 mg/dL Lipase Lvl 21 IU/L LOW Troponin-I <0.03 ng/mL 02/02/2020 14:40 E DT WBC 9.8 x10(3)/mcL RBC 5.00 x10(6)/mcL Hgb 11.7 gm/dL Hct 37.5 % MCV 75 fL L OW MCH 23.5 pg LOW MCHC 31.4 gm/dL LOW RDW 18.6 % HI Platelet 370 x10(3)/mcL MPV 7.4 fL LOW Neut Auto 68.7 % Lymph Auto 22.9 % [place] Auto 7.0 % Eos Auto 0 .8 % Baso Auto 0.6 % Neut Absolute 6.7 x10(3)/mcL Lymph Absolute 2.2 x10(3)/mc L [place] Absolute 0.7 x10(3)/mcL Eos Absolute 0.1 x10(3)/mcL Baso Absolute 0.1 x10(3) /mcL Glucose Lvl 123 mg/dL HI BUN 9.6 mg/dL Creatinine 0.82 mg/dL eGFR-AA 83 mL/min/1.73m2 eGFR-SUDHIR 69 mL/min/1.73m2 BUN/Creat Ratio 11.7 ratio Sodium Lvl 1 35 mmol/L LOW Potassium Lvl 4.1 mmol/L Chloride 103 mmol/L CO2 18 mmol/L LOW AGAP 14 Calcium Lvl 9.5 mg/dL ALT 15 IU/L AST 32 IU/L Alk Phos 121 IU/L Total Pr otein 7.8 gm/dL Albumin Lvl 3.9 gm/dL Glob 3.9 gm/dL A/G Ratio 1.0 ratio Bili Tot al 1.0 mg/dL Troponin-I <0.03 ng/mL 01/31/2020 22:28 EDT UA Color Yellow UA Appear Clear UA pH 6.5 UA Spec Grav 1.016 UA Glucose Negative mg/dL UA Ketones 40 (2+) mg/dL UA Urobilinogen 1.0 EU/mL UA Bili Negative UA Blood Negative UA Pro tein Negative mg/dL UA Nitrite Negative UA Leuk Est Negative 01/31/2020 22:00 EDT WB C 11.9 x10(3)/mcL HI RBC 5.64 x10(6)/mcL HI Hgb 13.1 gm/dL Hct 42.3 % MCV 75 f L LOW MCH 23.2 pg LOW MCHC 30.9 gm/dL LOW RDW 18.7 % HI Platelet 427 x10(3) /mcL HI MPV 7.1 fL LOW Neut Auto 71.5 % Lymph Auto 19.6 % [place] Auto 6.7 % Eos Auto 0.7 % Baso Auto 1.5 % Neut Absolute 8.5 x10(3)/mcL HI Lymph Absolute 2.3 x 10(3)/mcL [place] Absolute 0.8 x10(3)/mcL Eos Absolute 0.1 x10(3)/mcL Baso Absolute 0 .2 x10(3)/mcL Glucose Lvl 134 mg/dL HI BUN 8.2 mg/dL Creatinine 0.73 mg/dL eGFR-A A >90 mL/min/1.73m2 eGFR-SUDHIR 79 mL/min/1.73m2 BUN/Creat Ratio 11.1 rati o Sodium Lvl 139 mmol/L Potassium Lvl 4.1 mmol/L Chloride 106 mmol/L CO2 21 mmol /L LOW AGAP 12 Calcium Lvl 10.0 mg/dL ALT 11 IU/L AST 18 IU/L Alk Phos 138 IU/L HI Total Protein 8.7 gm/dL HI Albumin Lvl 4.4 gm/dL Glob 4.3 gm/dL A/G Ratio 1.0 ratio Bili Total 0.7 mg/dL . Assessment Review of Systems Constitutional: No fev ers, infections or nightime sweating. Cardiovascular: No changes in METS or an ginal symptoms from baseline. Pulmonary: No changes in shortness of breath, cough, d yspnea on exertion or auxillary oxygen requirements from baseline. Gastrointe stinal: No change in reflux symptoms from baseline. Hematologic: No changes in b ruising or bleeding from baseline. Musculoskeletal: No changes in cervical motion instability, myalgias, or extremity range of motion from baseline. Physica l Exam Cardiovascular: Regular rate/rhythm. Respiratory: Lungs clear to auscultation bilaterally. Airway Assessment Dentition: Risks of possible dental trauma discusse d with patient and/or guardian. Agrees to proceed with anesthesia as planned.. T eeth: Loose, lower incisor. Airway: No abnormalities noted. Mallampati Classi fication: III. Anesethesia Evaluation Anesthesia History: Patient History No S ignificant History, Family History No Significant History. Pre-op Informatio n Reviewed: All current medications, pertinent results/ documents reviewed. Risks / Benefits: Risks, benefits, and alternatives discussed with patient/guar nandini who wishes to proceed with plan.. Functional Information: Sleep Apnea. M ental Status: Alert and Oriented X3. NPO: 6 hours. Discussed Anesthesia Plan (s): MAC. ASA Classification: III.02/20/2020 14:12:36 Comment by: Laurence Witt pt gave verbal consent -----Laurence Witt[address] [id number] [facility] [id number] DONEcons doneR13.10Dysphagia, unspecifie d0.000.00 Name Value Range Interpretation Code Description Data Mariana rce(s) Supporting Document(s ) ID Date Data Source [id number] 02/22/2020 07:31:00 AM EDT [facility] Name Value Range Interpretation Description Data Sup porting Code Source(s) Document(s ) Neut Auto 45.6 % 50.0-80.0 LO [facility] Lymph Auto 37.0 % 14.0-44.0 NO [facility] [place] Auto 13.0 % 0.0-12.0 HI [facility] Eos Auto 3.8 % 0.0-7.0 NO [facility] Baso Auto 0.6 % 0.0-3.0 NO [facility] Neut 2.3 2.0-8.4 NO [place] Absolute x10(3)/[facility] Lymph 1.9 0.6-4.8 NO [place] Absolute x10(3)/[facility] [place] 0.7 0.0-1.1 NO [place] Absolute x10(3)/[facility] Eos Absolute 0.2 0.0-0.5 NO [place] x10(3)/[facility] Baso 0.0 0.0-0.3 NO [place] Absolute x10(3)/[facility] ID Date Data Source [id number] 02/22/2020 07:31:00 AM EDT [facility] Name Value Range Interpretation Description Data Sup porting Code Source(s) Document(s ) WBC 5.0 4.0-10.5 NO [place] x10(3)/[facility] RBC 4.55 3.80-5.20 NO [place] x10(6)/[facility] Hgb 11.0 11.4-15.1 LO [place] gm/dL [facility] Hct 34.5 % 36.0-46.0 [facility] MCV 76 fL 80-98 LO [facility] MCH 24.2 pg 26.0-34.0 [facility] MCHC 31.9 32.0-36.0 LO [place] gm/dL [facility] RDW 19.3 % 11.0-15.0 [facility] Platelet 269 150-400 [facility] x10(3)/[facility] MPV 8.0 fL 8.5-13.0 [facility] ID Date Data Source [id number] 02/22/2020 07:28:00 AM EDT [facility] Added by Discern Rule GLB_ADD_GFR_BMP Name Value Range Interpretation Code Description Data Mariana rce(s) Supporting Document(s ) eGFR-AA >90 >=60 [facility] mL/min/[address] The MDRD 4-Variable IDMS traceable Equat ion for non- individuals is used to calculate the estimated glomerul ar filtration rate (GFR). To estimate the GFR for Americans, multiply the prov ided GFR result by 1.16. The MDRD 4-Variable IDMS traceable Equation is validated in individuals 18 years of age or older. It is less accurate in patients with extremes of muscle mass, restriction of dietary protein, ingestion of creatine, extra-re nal metabolism of creatinine, or treatment with medications that affect renal tubul ar creatinine secretion.GFR Categories in Chronic Kidney Disease (CKD)GFR Category : GFR (mL/min/1.73 m2): Interpretation: G1 90 or greater Normal or high* G2 60-89 Mild decrease*G3a 45-59 Mild to moderate [id number] 30-44 Moderate to severe decreaseG4 15-29 Severe decreaseG5 14 or less Kidney failure eGFR-SUDHIR >90 mL/min/1.73m2 >=60 [facility] The MDRD 4-Variable IDMS traceable Equat ion for non- individuals is used to calculate the estimated glomerul ar filtration rate (GFR). To estimate the GFR for Americans, multiply the prov ided GFR result by 1.16. The MDRD 4-Variable IDMS traceable Equation is validated in individuals 18 years of age or older. It is less accurate in patients with extremes of muscle mass, restriction of dietary protein, ingestion of creatine, extra-re nal metabolism of creatinine, or treatment with medications that affect renal tubul ar creatinine secretion.GFR Categories in Chronic Kidney Disease (CKD)GFR Category : GFR (mL/min/1.73 m2): Interpretation: G1 90 or greater Normal or high* G2 60-89 Mild decrease*G3a 45-59 Mild to moderate [id number] 30-44 Moderate to severe decreaseG4 15-29 Severe decreaseG5 14 or less Kidney failure ID Date Data Source [id number] 02/22/2020 07:28:00 AM EDT [facility] Name Value Range Interpretation Description Data Sup porting Code Source(s) Document(s ) Glucose Lvl 93 mg/dL 65-99 NO [facility] BUN <1.0 6.0-20.0 LO [place] mg/dL [facility] Creatinine 0.53 0.40-1.0 NO [place] mg/dL 0 [facility] BUN/Creat 0.5 7.0-29.0 LO [place] Ratio ratio [facility] Sodium Lvl 140 136-145 NO [place] mmol/L [facility] Potassium Lvl 4.2 3.5-5.1 NO [place] mmol/L [facility] Chloride 110 98-107 HI [place] mmol/L [facility] CO2 24 23-29 NO [place] mmol/L [facility] AGAP 6 5-15 NO [facility] Calcium Lvl 8.9 8.6-10.0 NO [place] mg/dL [facility] ID Date Data Source [id number] 02/21/2020 12:30:00 PM EDT [facility] Name Value Range Interpretation Code Description Data Supporting Source(s) Document(s ) Physician Luke [id number] QKJeL [id number] [id number] [place] [id number] 5cGUv [facility] [id number] NlRm9 Passadumkeag bjM0JFBp6L XRpY2 RuJP8xe4Tb bmcvV 9npNU0ilMC uY29k xQ0iRj4STI 5kb2J qCjIgMCBvY moKPD wvRmlsdGVy L0ZsY XMvRVYza5S lL0xl gti2iWBpUU 4+c3R yZWFtCnicK +QCAA LqXZuHEX1x c3RyZ WFtCmVuZG9 iagoz FAZfa3EkVz w8L0Z wlIMbjk8Dx GF0ZU DhT44dHK0P ZW5nd GggNzA+PnN 0cmVh vKs9oDFC5H rk0o/ INFYwNFAIS eNyCu EyVDAAQkMF I1MLP XNTBQtDPQs jhZBc Cy7PeKBBIA OF/DQ PQ99WIZ5LV K5ALg F8EF6DKrZn ZHN0c mVhbQplbmR vYmoK VIUpMH4fax o8PC9 EhZj7NSScG mxhdG VEZWNvZGUv TGVuZ 2QnYAEjRy0 zdHJl MX2WvZud0M IAAO4 AfAplbmRzd HJlYW 9RKH0tp8Sl CjUgM CBvYmoKPDw vRmls gUYyU5RrCV RlRGV xb1KrR5cjw md0aC A3MD4+c3Ry ZWFtC nicUwjkKuT Sj8g0 LwC5SKkO22 IK4TJ UMABCQwUjU ws9c1 VLX0Q4RmQO kFwuj OYY8HDLK0T 8NAUT zZAsLtcQrk AuALT bMpHBPS1yi 3RyZW XiOdDrGD0h ago2I CEkg6DkSaq 8L0Zp aRWkof3LkT F0ZUR rK03lIN4FS W5ndG ggMTA+PnN0 cmVhb Ff6qAofLhM A7gB8 DtChSHL4cc VhbQp lbmRvYmoKN yAwIG 1ddcl0DN2Q aWx0Z XIvRmxhdGV EZWNv ZGUvTGVuZ3 RoIDc cUh4wqDOrV W0KeJ jJADWw0BCE yDRUM DRQCEnjcgr hMlQw AEJDBSNTCz 1zUwU ZHn0HQ7EIH C6NgM W3GSUonbu0 BRPNk Bds1tStAX8 AtJcN 0wplbmRzdH JlYW0 FJV4vm9BlS jggMC BvYmoKPDwv Rmlsd EIaM4PdIFS lRGVj g6MrZ0vlfb d0aCA xMD4+c3RyZ WFtCn icK+QCAADu AHwKZ J3le6OpCVB tCmVu DG3tmbi8LN Agb2J xLep9P8Jim HRlci 4QnXG3EBXa Y29kZ K0HOK9hbHt gNjk+ DvV4znWhmG p4nFM G1Mtx8n/IN FAwNF AISeNyCuEy VDAAQ bNSM9ETUOK TBQtD PQsjhZBcLo 2AxPR UoHh+moKJZ kgWl2 sIVyAXALRQ DdEKZ A6ye4UgRGM tCmVu HN9pswsjLC AwIG9 mcaq4HJ7VJ WdlTW 5jRF2He1SM b25lL 05hbWVzIDE xIDAg Dw9ZdZLcM1 NhdGF yi4fsD2P4h GluZX MgMTIgMCBS L1BhZ 2VzIDEzIDA gUi9W fLL0MPHEeo VmZXJ lbmNlcyAxN CAwIF I+PgplbmRv YmoKM TMgMCBvYmo KPDwv N6ron9dyLG AwIFJ zP8T5wHEtD GFnZX AxS946luQj NC9JV FhUKDIuMS4 3KT4+ OaQoDJ8aqz oxMiA jMG8bsym3G C9Db3 FhnAUeX8So cnN0I PH5YSCqKg9 MYXN0 PEY3INKrYg 4+CmV iMW6qhcjiB yAwIG 8gfozfV4hW Q0Jhc 2JhBJC3HNV gUl0K WB6be0IzSa E4IDA nm2RgKqo6A 0ZpbH Zgcm2FhHQ5 ZURlY 03oOG9TZF7 ndGgg AbV5Qt5CFB M+PnN 0smLebCb5m J2Wd1 QY2IqJc153 vVCSE TvC7OklJxE IDb1I wY3fBPsLQl CQACI 2RFRwRFGRp ggyKO RDb5QNcZIM hQFRs esEGUTUcXA UG5ZJ AV4Q95x474 2b3x/ 3fmufvc/dZ +991r oAkPyDBcJM WAmAD KFYFOHnxYi Ni2dg XqOO1GZKpQ DgcLO tVks7MvUJM nzYjG yZE/gXvboO IPn7K tM/jMEA/5+ UuVki FUEMkVpk4p jZXBk RtZw7M8qts 0/JmL S6Gt6yXw1a WYIyV vTq4kwfaRh ZZQ85 2iIQCZwOd8 7iZfD n3KvqmKhLg oyRYB aT8uc9uFH+ JmODd CrSUIYg6MB ZfE42 MVfQ8M3no0 NkbC1 uvwqzkr7ij QDgSM yf5AHzNTgU E8sPx i3LOy8NLFu IGSZc N0lZxnRU1y /PTee LxcwwDjeNI +Ix2J kZWRzhcgBm z/xZF JzoCzXaS8u 4OTgw oL6qrsaXw2 38m5L 3dpZehH/uG UQf+M H3A32IXPMq pmW12 fqHbWkVAF3 rAVC7 /BtCPB9Qwu K+dQ5 5bE85tC4Pb OIsZy qz6BfaNkWy aykv6 O/6nw5/Q19 8z1K+ 3e/lYXjzkz iSdDF DXjduZnqmR MTIzu Jw+Jaha0e3 Hwf+d H7FRddttvl vlEVE r4VUABeMaL vIE4g FmUKGQPifm vgPw/ 8u2fdMqac4 EdCWW AKlIRpAfh4 AKCoR CIa0SJjE39 0Lxkc D+f0R4QzXr fvPgv 59V7hM/sgW JH+OY 7oZYkmOUa6 smvxa AjQgAEVAA+ pAG+g TT9EPtpAYa AAP4A MCQSiIBHFg MeCCF JABRCAXFIC 1oBiU ae5kY9rIwt ARNIM 8jNm9hKAjL DgHLo HLYATcAVIw Dp6AK fAKzEAQhIX IEBVS z9QnC6wcth VYkBv kAwVDEVAcl AglQ0 MNLfIO16LD qByqh ajlGkbn0Gs 0GroA NDM1vOMtGr oVegc jMAmmwVqwE WwFs2 BPOAiOhBfB yfAyO I5nbigDoXZ DfBDu hE/Dl+ARWA o/gac RgBAROqKLM BEWwk ZCkXgkCREh q5ASp AJpQNqQHqQ fuYpI kafIWxQGRU UxUEy TP5scHYFtc pahVq S8s3tZU5Ba qD7UV nJxlpv0QG9 Ga6LN 3f2vOHCgPe mdiy5 NZ9Hq9T0ac +gR9D b5OVjKlUUD MY4Yf 0wcJhWzArM ZsxvT jjmFGcaMYa axWKw 93nrqag2Vc rBibD F9JmlJiaD1 BTuOf LMi3zOpjwc fXDxO iCvEVeBacC dwV3A OxPx6Jl9A3 4wPxf Pwy/Fl+EZ8 D34IP 46fISgTjAm uhEhC KmEtoZLQRj hLuEt 7PALG3QbGn HCigL sPZFg9KXbK HCW+J GKFVwZ9NOG kIW0h 2DluSb7odG CTyUZ uE5D0FTfyC m4mny WvX83JaGdW KgQo8 TSNQ1SqcPv cUXim xRx4RPDAJL yYr1i heERxSPGpE l7JSI mtxFFapVSj dFTph rX9SbTPFqh UOUN5 z0VT1cLeXz QsxYj iQ+CNleh7Y GcoY1 PUvd2wC6uT ddRG6 ccxPU2DG5A F0FJp xcMjhGD8RI WKip1 OcNcpJi3Ab RUpHa Ry1KPs2hOc +mH6d rf0WE1SF1I +6ibV NtUrqq/V5q h5qPH GKcVi5MyG3 qkz1H 8Y00C1hWco 39NAa ZhphGvkauz ROKvx tG8xswvz9n ySOYf k3AqNUa80M zRXaO 9QYJOt6vQY 8tPK0 mdDDsO8QCo u7aGd qr1D+4T2pA 5Vx01 OnLIJ61ARY 4YKw5 PUzhca4EXp dDV1/ WQbdzY1y3i zesZ6 JYaWai942/ QJ+iz 9JP0d+r36U wY6Bi EGBQatBrcN 8YYsw nPIFSy1gi+ NjI1i sQQGiSl2Xm YzDjD AP820xikYL nE3WW bSYHLNFGPK Mk0z3 S175Jy5nuz LMasx QoMAjO9OOf a7zYc e2PCURtUGO osbTB DDv3qOwBOS WtItg p6XCdzst6f ZWMVb bbPqt/pobW +dbt1 ofceGYhNoU 2jTY/ ZjhDsr16oJ 9tpc8 lzfuavnds9 9bmdu o3sjP0qVxd ofYr/ Bvtf+g4Ojg 8ihzW WN1kAu2uGH 8QaLx ymvhTwom3A 7eTmt jfdj3UvBsH nsfNj 7PeavZ3jRz 8ujec bz+DKl4993 6rlyX AjqfR5Dg1D 3vW5S e803riwL+w MPfQ+ bZ1DZuBfyR 6rnQc 3fLiCpEx0E r9dsZ /PI7fbkqDr Pu8R7 0IfiE+VT7X PfV88 98uyLq5iV1 m+F3y l/tH+Q/zb/ GwFaA ifU3uOvLCa AlYF9 QaSgBUHVQQ +CzYJ OoM2rcBvbc PaQu/ KW3xbaa0UG 0IDQ7 eH4qgsRfwO 9H44J AucfMF2KEH NRENG /gLpgyYKWB a8ivS JTYm5ArUQT onqjF jRLoznoH0g 4x5TH SGOtYlfGXo rTiBP Sstyy69Jgc +KnF/ ze2EpzCSS+ oTjh+ iLjRXmLLiz WWJy+ +PgSxSWcJU cS0Yk uwE0E7sfoy AbO9N EKisBOy7nd 7i7uE 54Hbwdvku/ KL+dP GZkohXu4Pe ZN3p4 8meKeUpHyV MAWVA uep/qn1qW+ TgtN2 5/8GH7nbS5 Dl5GY cVRIEaYJ+z K1M/M ng7HCg9lep Mucl+ 1cNiUKEjVl Q9mLs giKEMgP4PK ERLJe TjrqcuAM7e Y3Ovd MjtNhQP5mo dnyTc fr9c1yc22B WsFd0 RwdF6V1KNE l58r6 NaSilgn4K+ uvLlo 3thLpeUF8l LVpa3 4pvE4cK5d8 LmZdT 2SC1CmnaxW +61uL XXzKvRv9gI yo24j fLYu9zFzck qpNH0 z3XMwGzSgo St9v5 m6++JXNV5V ffdqS tGWwzKFsz1 bMVuH O42naog8wG y7PLx /zVqH7igrz R8mOl tzJ9NgVDXr Rt4uw Z0QHGnci3P 1lULW 80k25MnFRs VdNe6 7e8ang99a0 u6/s8 bbVWjiPM1s 3bq9g 7816v/rOBq OGin2 JpVn5KeMYY /Z/zf t5sSwuvpZd w37hf riHlZZ6rK9 NzS2a LWWtcKukdf JgwsH L33h/093Gb Ktvp7 eXHgKHJIce f5v47 gGSOCx9j8X OtH1n +J1kE9MyqG PqXN4 66MAXKh5G3 x4+Gn x5f0koe+N7 y+/3H 5H8JcRh0Us ZCcKJ ohOfTuafnD 6Vder s8kJEU62Ib u+ciT 1zrS+8b/Bs 0Nnz5 5dYwjc10M5 53vX8 sGkCX20xFZ 3suuR wqXPAfqDjB /sfOg YdBjuHHIe6 Lztd7 uemN4dgczl V01e9 e154QjKq6k j8keH hObro9uh2G b3Ju/ krLxib40xl bs/cW XMXfbfkntK 9ivua 9xt+NP2xXe ogPT7 qPTrwYMGDO 2PcsS c/Zf/0frzo Iflhx PGOZFDw88s HJn0n Lz9e+Hj8Sd aTmaf FPyv/XPvM5 Nl3v3 b1SxDUIcU+ XPT80 6+bX6i/2P/ S7mXv dNj0/VcZr2 Zel7x Ig8ZbMuun/ 7uYdx Mzue+x7ys/ mH7o+ Xf82a5mnB+ ffgP3 qDM4FyFwBM N0cmV hbQplbmRvY moKMT kgMCBvYmoK PDwvQ 53rl8XKjDF jZS9E WHImR1LXbd F5L0h laWdodCAyO S9TdW C1wGBbI5xm YWdlL 5SxoKLfzb7 GbGF0 QQNwM21gTD 9UeXB tR6hIUghtF 3QvV2 lkdGggMTgy L0xlb zh3fTOcTY3 CaXRz NMMyE69bhA 9uZW5 0IDg+PnN0c mVhbQ l8pR7LEPSU AADCo G4qZngzbDJ AAAAA Bic4N5aTEw VuZHN 0cmVhbQplb mRvYm oKMjAgMCBv YmoKP XshW76ng9K TcGFj ZVsvSUNDQm FzZWQ gMTggMCBSX S9TdW L9yAMoA1yh YWdlL 0hlaWdodCA yOS9G vIf4LJQcIm xhdGV EZWNvZGUvV HlwZS 1MF7QlDWZ4 L0RlY 75wCXLmsh7 zPDwv R22ifJ9wpv AxODI eA24qq9QcW DMvUH NxXGgwmM0q IDE1L 0JpdHNQZXJ Db21w c35kgxVgOE 4+L1d rGPOkHAL4F i9TTW FzayAxOSAw IFIvQ pp6o7UurzR vbXBv vrHdhBY4V1 ludGV hwF6sAUSmL HRydW DvUQVfZ3Ke IDQwN DU+DxF6cpL hbQp4 6o1vTNZGO2 bHb+I kcybRuEZZG pq1ZX EUNH3I13AS QoyKK 5rROBpiNBG NAhoC EyKQ26TH+8 KqgIA 2guyLgAKyG cMmAW VREVBRQUBA lEVgq rqRpemGRtE vfsd3 6qJq26svCc 361b3 /e+sJPW/M0 UUPyv bNI3dAbhi4 tVjF5 TWP3jynfo/ Xb9fF pFeEJlfEZ1 fce/i o5//LAdrrA vRNgz 81C/vsB3wu MQvTN d73nQhKF3+ zvkaR L3kMlE7Lj4 SI2kS uFwdeA9A2D dhxLP 8P13AtyAec uOMkK CLCbkFW9zg uziy4 nh2RVVDppu YTFOk rlU5w0q+Gp serD4 bDpKMwzXnO toA1l aXfQu8mNcc QdNnq EIPIfuMRyS 2tZQt lZK7Ngar3m tPYwr ysK/cGNmps eZqaV 0Kd7rsnY8L fDyTu 7ZDuUufcY0 saXnX /1voip8sga KlUMP QCQ0/QZI/q 9l3kB FThdG8A9ks BkTnm oAi9y3XLK2 hCJp/ AxEskd7MmW CaDEj kgPv/NRkT8 l5lTH MhrIRz5h0w 4XGtd Bv3hYJsuqv uvs5e ReB8Cffvym 0PkQu 51WT9N/poP sz3GH ADLE5GSyUK lampu epGHZC0BFA BgOs3 V//l4ZSokP uxFhH hpJOW93ASN 5g1zv /bGAJjlASr 09o72 93v11s8VuG AgC5E p9tc0CbnBk tdWkI 4839giYu+b hvnQ4 Cd5iI0GgYj uYNAR oKCTUVjx1+ fDzCn a1LlR1Ix8+ uWLEa C24q0mXO61 QpglA GX66+/9sl1 RoMeT isgKiwiYRr bh/yH aUv0FqCqMe Bkid2 vrQYEMczxh wcjaC HzStV0ETi4 /cT7M aQkwlbLdPv UlETn 6p5JXk2wPO 2Tl/h hQYyEnccxH Zs/ZQ oQIewwRMdw aBPrI tFU7l3GUvS zVPgF MqPZS4NNf/ 7J87K JaqQz53lfn 5/RXi 9wuK3rZ1kD BBhUm WsMUeyXjE7 7Rwz3 QWpCOsidQc oGpZN UyN50Yhd2q lh8RI /MImOGOpeg sgeHW sP3uWT+R09 G53SE 1LrNqGERKb j1Yvu 323BCD8GJS dSIu8 1e57zyF/gS UXPFL FFDZqV1ETf fabZS VVAma3sCGf xOUWD MbBXcf0jlm KK2+b 2wd0EKcHsN X2sZm 33YKCRkR9+ 1gkv0 PMlrA0YEfi r2j7T 85XICKkc2h YMJhM GB+tTfclb g7pdy0B42Z hmC0j kjGo2tJNMt zimha eqXVwH8bkT wgTnD 5exr1U+EF3 o/PTH EJjopmziOb RxQnY qAkG8iIpur Lz4rO u/Xm8AAz3d tqnkS 4NV7nKKsZE 8lXmc nKIzyb2dmC VWuP5 M7igCOco76 qeY04 g2fcXa275k djxWZ 2HiMVBkYPe D3ogk arAyB4AWXd Qo/jk 8dV9kKCd5o Tcp0H LBGRmBXinK AXOvV ObiZZB2I9l z4GOa PAIM4nbdoq kfLhO AEgOpXRtu1 tAH2n ikwxRnmOmW VlDx3 V2cetXPCUB o6ekY lKgx5yFEWf A6x2S Uia+k5l0Hd XeUJD qJ/D14dqJg P0Xtc ZjURT1D6VZ sCNrw c54XyN2zc4 46Zoj C3wSNqfkfd 3gS14 kmvqDKXrYn ZODFm ObDmA8RTlj F52fd B4IU0m3J8Q sD5A8 83H4olWVMJ sfJN2 +EGNKKCj7r hXnuo GE1fMlAomY iIbtq k85lRdKt/C k4yzn fxr+E4+qAL m+Lrb xlIdVV/ljm a3FYw xt8W63WbJu OaD7w bn6oFBqG19 DphqI Y/pXEPcyXR GQXJQ aK6JGXCref PxQNa pyPvhAMolM fjZfj D7Lwxc2kT5 Zw4aC WymiJcnePG GgEZ6 9CB8DqkPUB EaEEZ oIKSv/cqh/ [place]/Mueller gs7OCXuk8M r7Qb8 OADUKaPGUV /hLPt 79SFwn8mIl R6Sh6 akYERv+5RE QQTmz echg3ZXCDY wsjny BTiz8UCL89 z3ja1 +lYlG3Ej9M 5aVqX 6BMWg6za6v n0aoV dRt4soGDDK ++JwT fMgSRtIJby Jigxg 36QRkrv6XO zaBKQ 8DVSm8OkgU ld5Hr Df5hPyPe8M R/7Cq j4lBLnJFO4 3hMMT qul63D2+RU /7mm9 9TdGPLuP/l SRwVE KpJvxLV+0g JhO64 FdDMhrw4VC 0m8XA 6o6l439xBz 5D+Hy EAhtstswSt BRI1V XHF/6K+Vd+ tQDEK TYcFKkytqz Odg2r FFOotT7FLv u0MKd uP6gn/uFPZ dXHXw NP5nYUPSx5 vEMlw CkXGL+GDgA foM6X 5gSHo3uXkm 3vWZc wfLIB3+Nqd oiZbx mTfLKutGj4 ge38Q pesckMnt78 cCTJT y6zwohvybZ 3ePgU biIY2YsuRp j6H1J ur3V6sruym YEPtd Lxo1rYDRxy t1y+h UiQmSWVUnf OhFZh /df+3NyIYJ yGVzE V7UpP7aNbF 1HRIg A3FI6dABj/ MEpDU 8APFEt0lnY KlMCk to09nVKhxj 0cn+0 iVsz8uPs7S fMThR HeDze5jd9G owwLr rN1kqmb9mE baT1U kAYin0OcA7 12Pkl WJErj99cc0 2kWAe NW+gzoik/2 R7ySh GRlfSKEdnh mCQXI gu5Yi/CEV6 R24uk irwI/7OdZ/ su7ji wZokjp2qaJ eMahI yxiaH5CzXZ ECr56 mddnY6+6UB iYgWj RO27/gszCa OGLqo dGLSfo3iuz VlEXk Zk2rjJkTXB OjHJC xLJtVO0EmI 7tvC+ HcposLaaTk XhZpg engine lathe set up operator tool+DNaR4DZ YZc7K X+2oiorPbD 2pPEt DBraXfN81w P4r0t GJ2nirKiKi LYJAW RzbaJWDYhU 88gDz L1u3bw/hEY T8amR lx3UhkL4t3 BONYj C6IhuCfjlc zDXzc iCsa+2GQa1 Mftra Qx5ZWS7nCp E46kC FbiNFG07tx B2I2/ GJX9itmaH9 vI2oP GSOfmg9q+Y Iycw5 eb6P2NvyeQ bYB5X xXNvCvZ76K GOJd1 C7F30jtIZ6 U3pAg xKCQ+aFOSL 1e8MC L7d9SMQ4GF ixCZB mQ05ue67u0 7E5cL 7V9I44gifo lr6s2 sl4jatAq3p rzIiZ giJERgtuck I768d ODxMw10lgO yqnsv 4BDdYD6Wf+ MbXtQ f7pEml48Bz LhitT kGQ4p7aqBo D0Vkh 0PaiIjkjxY RE6so cXt8DL9s1x af2MJ cmEYBdUpt4 6PBcl WkReaMApGH j56IT WnNfXlEkuW dcoKo VnqO6AhKBL Lj5Jx yLOeRipzPH CRQHE TMYEfMny3c iPSX7 L04x1YU2gG ZOSX3 bVAZ2KaouT IXtFj Jlfyrk4e7Z zKCLm +TXdzYIxKQ cAWbw MAAg2RqplS 12/dh FrmrxKxN6Y jzt4W Bcthvb72ZM 9cznP gb2XF7WF4c It87n adL0Uubh/F q1uY6 Ck46WlQcv9 GpTY3 WUP8DUaj6d cBMLu CaMeQNSD8K 0vEck q902TiiU0a RILE8 tyYFD0oa1m 66K2X GX0tO6RAck fKNKh zAPRn10+jn 6JfSI lrrpO/04ro IolKF rde39D1fB9 dEHBT VWHklklUKM BSVHA ld0vSRbxdy SaEHF VsKxKy9E7O 1Ro6w AAwB6bKP2/ dHk+R knQ1oAcOVz SQ5Ve 6ncgbPdCuO MkirL ZLcoDnmewl BhuyQ 0PzRhG1H+h Zxtcb tT9Qy8MFxr ljWaL YqkXIM1WXX eyPnb AmWPmRVGl6 lwvwB CTMNrXNF4+ PSEXE LyBMjQgscT ouorT 6EuIDsl8T6 ycDrv LOXcfEDUaL ueqe2 XqZdO5/1yz 1N9pn UQQHVOzIfC FTR9h fAtAYc8j3+ jMAOh oUy8cwjUWv kNaas 97oHXRZPxp WyGpm I6PG/sYiW3 2NHZ5 PyLJ5P0Wu6 SLQab m45lM8z7/L feIKe ByhQa+ol6b zwxy3 9wV3Iz4oGu Ow9c7 5MqS0jlpVz /UAeV E2JQl5Z2ux 8b1Ai n/tdZmGmtQ 1v0f3 KSwMVsrSJa AOiG5 rHpJz+nSx1 E38sU 3YciVLs8tX S/GHi 6gPDqXTQZu DqqgY rJf+GxE9f7 Y3G+T wtWHeF00hi A7dAK 2seHvbMgPG HHz9p F+0K8WY9EJ pu8Z5 HAkv3gVr6A uOyS/ BHplocQZgk qfCJ6 NIVLk7J8Jq Q39rF HNdCTu2bDX 2oMvX AzYeqw9TgG sKlLA XwSpR7pzWR a1Rxn KCvEz3KFY8 9qH8t oxa6flcPwc owEBu zL6JSdOlOU +UPpN uTSMHKkci0 Yl0or 8upd6uxayo SXOGN AjpF3VP8TB gWjDb ojfbUD4hbr XuvZD mCjKlIwzcq U75zi K168iEinZN 30E/l hIp3KNjOQc qhRfA xiUhgiv4Rk 6aQNl xidAlhFm7m NLHQW YpJ2aaubv9 jHPXJ Xi1plaITaQ GdSm7 LzSOtcCm6/ 7vcwu sPLNkpEz/3 xLstq H4wNuNzaWQ CYPzV se31mNzHH8 qQeHg YAxx7oNO6J ngjiu EjJ5h+9EfX cwPmm 98yQSzISg4 v0ykU Bcf9i/3cAV Ixy+r 0KplP0HrZE tx5eI iTTlzjifeA 0KtRv MNveGXP4sZ v9j2t tA1eMvu7mL caXXW V/85jFxWMj wNYoZ /QQJbvFeJI hO4lc TTk759vKYZ UbzAN Htwi1zWwbA h4MrA apOmh26myw TU0t8 hJSWpOFZDc YDzZa D5FQ8euRFK DfwcD /n94CmOUw/ iEVVM v87N77+hcm O6Cx6 iSkzmHbV5T qTCH3 eQ3tOiVGQY 3jD6R WTHcTMB8jd Bk8Y6 5njUGGQ2oa G6jQM bHplanwEQn +Oio8 l5bqw946uV SrsJE Gol8JgyI3l rqFAW +ZiPzEJjgB nPprU 5sX7AkEOOJ 36jOm hdhZ2N0NKp dIPz9 ZLFrQ1ffkv U9u+9 E/3dwNEq9E Rfe32 C9gp6ni2/N L7Ssb HjW8OYiLdw am1t2 Uc5NN/ZBDI EKddw ij6U/RpyIH bqX8e huX8MKyoox Rlh5/ Hh8/yZtaVX 9e4t5 yZumGJOw50 xYfa/ P1Sb7G2i+V ++jZm 2jEAiFDRT9 79JdQ arVEuM1XBP bdzD2 zqobk2GP4L Wc0Xf xFbrn9q6DV Bm90Z 59exb7s0Oz qFl9D X4mZ6w/lFT X+HRU 2rN61y9TN6 3hfSu P25xAzRU9G 0s/It ccN9EYaWKC WOmPv 3nLflPE8rH RK2lr orbeTk2kCO U1T5a 867DmpxFN/ ECXiv 97wAI+WlSU oEsSM TqntHqzbdT fP/XE Hw/87Qgouq iuDGC eln5I2hplF 2kV9s 4pMNdmGP9T +8Kq7 iVCt0sa9E2 b9x6V CPV3QO2Jdh ZNCmi 594irhJTC2 RaRV3 XcqHoISlSc leixj p3IbGt/+lema Rt4fk Ud/8CObTgc jGioH hDk4bshgO0 N8Ema hHZ5ZgVOJE 5LxF5 M0ONgbuWSp FwHUI AspuaDCJAs pkS07 ym9L/t4i8L pnyoD dafy43Y0nz 36ye/ w+Q9OrpBmX uZHN0 cmVhbQplbm RvYmo KMjEgMCBvY moKPD yeC2ZfkNV6 PC9TL 5RhZC3txTX yZW5j qD6VLSDsyD UvSyB wUVuvDD7OH yAxNy AwIFI+Pi9D b250Z L74n4m9REU gUiAy MiAwIFIgOS AwIFJ mN3T9gECaR GFnZS 9SZXNvdXJj ZXM8P V1Jp1gaqzV wYWNl PDwvRGVmYX VsdFJ HQiAxNyAwI FI+Pi 9Yio4eU3U0 IFsvU KMKBY5SPIq 0IC9J bWFnZUIgL0 ltYWd gPuYdTO6gS 2VJXS 8Or245QCyu SGVCb yAyMyAwIFI vSGVs diAyNCAwIF IvWGk wIDEgMCBSL 0hlT2 IgMjUgMCBS Pj4vW A4xzgNtfVr 8L3Rn PYR6GrMjVL I2IDA kOa0xxDZ7T DY5OS AyMCAwIFI+ Pj4+L 1BhcmVudCA xNSAw IFIvTWVkaW FCb3h bMCAwIDYxM iA3OT OkFe1CQQ9s b2JqC eD0EUCmo5R qCjw8 K7dxOYNpMp EgMCB GLGS4LPEzW iAyOC AwIFIgMjkg MCBSX I2GbSEoF7J hZ2Vz Q0BuqS81JL QvUGF dAZ18OJKnN DAgUj 4+RhXdGM1o agoyN aDoRR5cutp 8PC9H zf43wUs1C6 MvVHJ hbnNwYXJlb mN5L0 ZUIa3XT0MA YXNlZ CAxOCAwIFJ dPj4v A4YvqZgdDS 9Gb3J mT6QwwGHsj i9GbG R9FWElG07u ZS9Ue UMiB0rNAch lY3Qv JLY8syx1Tm EgMCA wIDEgMCAwX S9Gb3 JtVHlwZSAx L1Jlc 291cmNlczw 8L1By f0QCIFElC8 BERi9 NCRs0J6ayE WdlQy 9JbWFnZUIv SW1hZ 0LGTZ4OI7Q qZWN0 IPwesP5tSB Q2OTk gMjAgMCBSP j4+Pi 3ATr96EnJt MCAxO WTbKmbxS3s lbmd0 aCAyMD4+c3 RyZWF tCnic08/MN TQ1Mb C6DAHALrSI bgMbC hKlPKA6mcO hbQpl bmRvYmoKMj IgMCB vYmoKPDwvR mlsdG QxQ6CbOYZb RGVjb 0AiL9lrytm 0aCA0 MhV1Uq2rtG JlYW0 RaVk6PCgb7 7i13/ dXcOZOp/Y0 pgG+u Z14HptGNs2 jRy3t djo3/YBQsM S7FKm S7Aoqg71Fl IDg0w JecARK5QJr wnkfg Pf4NvVlwQQ 4Y/ia 7dg35ttFin u+73l asL/Mtti2X IS1Ra U99rr59+LH WDORo 1j3jMkAJGr En2rv 4urPLe901L qXH+n 1TQHq9567X dIufN 04BZLf0/v/ O7t9/ J8fz/+jrf/ +g6Yt 0m06bHu+7t qvggf Vi5r4OO6yZ ePItH XEPI9baB7V MOqgc XXsFSiugiD J4+xc uoXjXixd0x tBp6H wYGfBSL4nl HYS6Z 4qhl/ONRed kTQlx 0dw60rg70D jWr+/ nEuoJMS79u rGGT1 Oi/zEfl1os xbvl+ l65sBG4Ym+ fvEB/ ha0vqs/Xtx c3S1H 6bBN+1TZ/H QO3Jz RPYnoCzuAX PU9tu yaoUdKNrR+ 8xCRY BxtIeVTsC7 u30/Z oykPHWPdxg IG9xK jS+vuD6pT5 KnCc7 xaXt/ONQM2 i4DeT s4H07hwBtS wrtno BZb2a79KvV SQhrB j3X9Q6f0b2 StsOA gqoN7uBz7t SRR9u r++AvxAy/r m/m7K QHxOxV6Wy3 Vt/rX mzXQt/noxz Z6HTv G3t5xjmXXk CdYsh +3rKWjsS+x dGshA 47oDselEJI ub1fX En4eGv9ru3 jxPdw xFDI/0kDA3 bqGzr EArA4Hl8ba 3i3Hs AFfWk7TDoC wTY0g pJiPiKQgeG HtgbS JVeM7GG8TV y3W4p +Dncwr4JpB QEb9U XB5pN9u+/W a5WE9 vypK62lnEc gCx38 Qo2LZkLEqJ u5CH4 j7V1Xvk9U5 BEmck jFPh/VO4gR +ETbw +kCwUloTxU xHWCk Wl7VT5rV2O 9bfPu wVC4O6xxYb ICWgg iYvGL7SbUN WcLD7 YyXwx8VVaW 1YZbF Q2VzQEKV+f aw460 0baQlP9pGW zOEe+ TR29N4HvAT xlFCj blSf8swQP8 w3VTT jSIDwwMXI3 f4goS EquP7Cj8x7 SEmVc lPnH4d2sAy lScYM F9QOglgH/J /zVZ0 gS7c/n9VvL dC9M0 NT3Ov7bYVU X+75b SaNSfoPxP7 ICslj G7449QXv+l JK7/1 ItrRcYhqFb voewo 19BFvezeH1 dwfq3 NAxCwnm+Tu I0j7I euaJ/1z3HZ Ql+m+ 5PZ8tUgQlN MsP3t b1mw/4CRmz ovhbV 78p/ovrX5f 8jbQe gn7V/aTFog MP/Pn 3Sl3i4RZRp 5asL7 Wp4tWSQqt/ aihE4 w8msxIoS2Z XEKdP 3fM/lNEfih zVpxZ cy5NS5jYdr DiyEa YFQ3HsoyDU LYtu3 iRkgdrZYtY tSnox JJM5raZ/Xn 6lR2t //QQHzHYg6 CjJFK 5n2EmxHN2E UimZi +JS29k8qpf Vf/3y 7vFvzXPLqd ipbQK djlDPKVkhz T0K8Y vUdJNO/3Fw vm0QS gnKxJd0aZk 5vXmT /RCoGozp/8 1JUR/ ZJyB+Xq58/ AbMQM /fLt7Db01A Qfl69 IIATabgqtj 9vItR w6pKdYEvIh dZTSD cQXybkYENR cZIOL h9/un+85TH yjr2b H0Af11BvTE uS1uV vN0vlRdKJi uzD+t Mr/YqG0MIz +IK4P Tbd9lk7vYV V1Ymo 31hWrmbbUL MjuyH 4hUyFrWBeH oKAwV R7Pyl6pAmH evEHH DwEB7v+OGJ e33aH PXofnLhUhG jrCJh FYWDbj46C4 zWUgH aStPfJRHp7 vQvp0 /xIjk1ew7+ IoKTI akXqaMiIzB 3ZXbI tXN41lnMS6 mQmvi I3beXRI4iI 5FBGs FeHEv2J3GY HShGy Nq46ug1yFV 0eI6E sdBUviWF9l Da/5Z hJUwgEJBaK EloA+ a7G3wyHlFU VxVFT MQ0MsAKGcd ksEHL UuW0hRSiGh eqO4y MwcUlxbngV R1q2z akReJsQyJb yX+2L thDyn5g5FN bvmt2 J+I0LESFCi DyFil UG29A4XlWk gfQR9 om2inxgbGm fMsaZ pumE4Vkblb a2DV9 4dkR28kIBi PF6hq uIeV1BvQkl puGpS 1S1JsGKVpg XsFgO scNqigk7Tp UO3oC 8lkebt9Yqn FyR3R X9AeYrGCOK HIS92 cxCIZ56A7Q PGuXi P5yJqX6Gnn tdWJ4 F1ZKOEkRql ar0rL lBrQuwvViE aummZ tdJqe4v0xb BNmSD siUQ4WuY94 tFqDa wImHDPcDd9 aJFgP MwLXt+8tAG LmMRr NozmmqPGUP VHw7j rWgbMmZh+V DFM7M sIzap7raI/ 0UnVv 2IbzPVtW4H W3GwE GBHYgjWkW9 JaHUH Zm+7RVwR6v keswe 6zSn2LcHbr thhB3 PbssoNcQ4A qbuwu +vFjNjVHeR CwqwI x8hokD0z3D G+Ot2 99aKlYyi/D FMVuI ylfwzTrGgy Y5baM stOygT/4Uh T1khm r2+iKKZpKm XsjqH 7YOycopdNx 0YQv7 3yoImUsYuT j+YVq P196bVz+l4 kEc/v u9YjuB5tm7 2DY1d SdiN66MySg +Vj55 xMTcLOB1EI 0ap1H 0tf7TwXTaS +PaRZ RH4gEhhcT/ 6axNs qFv6twYkbu byBpN xzPobZz6Pi QOsJA i4NYTeKk8w SJAoP 3KtkU9OPhy 7x5H5 HuPD/NlOKN E1YBk AttmKO5MHV shx0k OFIIQfLUxm 5GBOR u6N0r7BAwD 7CiJT VB0ve1CNeZ 9pWpe RY/Uuo3jNB 0JgFy 5qtb/tDluz Tvgg2 dRLHgxWDIs MsVo2 SsoggJVerH h+Khm 17wHgUhtBc LFESb 2O3540wqcm UaFh+ ol4A1TQmWy dJljW Up3CkMNFAg lcVOq 9+2cRuvsRM 31H0a QfS6OE+Demi di7tV XvxkkNjK9e bEZup XKWayYaug+ E4bM8 uDwin+2hTf HddVN M52oJEgkR0 wyeTA seXS9pIYFg 8Fl9K gmDHr47DSK RlnZ3 pYUOF116BV umabN e0oXLIwvUt q/W9a J1Pigu6TFJ oejM1 1qmSPBNU52 Lkf9u XqGNYJz1mQ sJF// NkQdFl3Av6 ePy+x 1WnFM05nCM /HpPk cNqfSkgONC 7Vhf+ +4UAuPKgyy N0lcn fgzz99mCti oFAd6 bDXKIFQXmv yeHI8 0y/4sExNMR 7WVyD bzfPqsXk8Y PW6af UkaxvDLMAq DjtDC aQHKpfo98l iz0LT 8Quotyfcda IVuVR rGvytPZEiI w1ZtB bk54kRXVl9 sSMZz t4SMsoq8gc MG8OE kyhrBVMoj2 lhpJ2 Az6XziwEoq yolw6 POrNe7p5tR lzWGV Z3w1TYOka7 U5WUE 98PCY3DHoK fPpyZ RrGb7tWAEP PIj1X VNLIEOBtCu ZTZiC 1cxg2WTUO6 7jbJO V21Qi8cUBs PCexM meZqJmtJVI NHIeV KGYNAM8l8u LZ3uG GuYh/7rK+1 NQz5H 8tVdU6Gqvw nTTEq LQqTmt2Zw5 IdnGS ZsZntdrA9f ScW0+ KUK2zr2wUU yUiif lL9o0ZC7jJ haaxy CrqFuIgLCL bWlY/ aLY0kDCFCD Zkz8K MKTR4CsQkt Qy4sF I0R+Xo4CW3 +trTE aqGUUvSRfC b8Ex5 LunIXkpn9G q5l4o a8qAsnhKla IhxQ3 3sHFihikhO cP3FV 22kQFVa21E w23l5 81pC7TkdoY RJelA RnSJmwV0EX muOpg ywOrv3UIkp 5hdcz /dTYDFLHQl lYYbn qfossuhXeE uhwd2 tZaVmsSlew ijqI5 g40CjcYsdL 480G5 ApFhw66g1R YG9xu 0EnHTo3Evj bcHdx l7YyRkKl9c bg3uJ 0z6RBNvQql dgKhO 9sDyFTHrDc mKr0F 2SLxxieY6o 6BjFu Z6ToX4lUC+ e35wx HNZqxUUEWZ jlL/E s3J38yLHEW lbCdH QQRscW6S4a 7tjlt Z4l/mfRMkv Zn2Ko jpcHgKT2mQ qUm6U 6KClPVvS/r fGeIF BoIOeNvYSq UYWJO 1cfm3zvnpD 8b6Ez pu4HqrPYzY eNZZE twcAqz6Jlg BaX2l f3urYLkhH9 oMRLf 9dlJW+HpmJ BMig/ fyCZJf7xZW LzIpg O8ZFV+cUya hKGzM bLqjNzinI8 /dBh7 6qYFmLCW4V lJgzy eF3dssanJx 0dkVQ M4bbTEDiH1 ENb5P +0BXyiZui6 JuS7P bNhco5/BfD lSKBP yNflIi18OX 0r/KP aiUik9qdSA f4C0C DQkzopZrOB OUyo0 qdqZpazeYN dSNNU OGZrBTDe1X ia2BB JQ/iWwEJ1j qVjgb z70VIwRMuW 0GwxG /8+Nv4TnsQ QVXqJ ZkyhvQ2L+7 mh+ZE 2KMBigEAqW DQl2C acbAO8iFEU tnSVK hRC2ijDRkd w607R 11/TmZqDjs HtwRB oltH95gyX4 gaMLR 3iI60kemTO n1OM4 aiRqr8Bpkb 1ln8D RhdOaWiMdd P10Rv xMHjoD7bMi D96ns IRGnRjgT1y 9PDen R9NbghcxJA 49+1J 5Uja5GWH/K Uyzy4 cy/R0TuZi2 z569b o3v52f/Ir1 SR3It VFLAmuK9Cc YKnnq WNozClfFS9 /E2YX FHeNBe6ZVi AFLgO F+NPcd7EnZ TtVdB k+cd6VOU// 62hBv G+HHJacKLY wo82a NBpYGsyf+2 LGBWR 7cq6bMwOns xpsQi 0vb6kxsk4e bEsqN 3biX76G8T8 pZuV7 V0/jhwvOVt SXdUe 8Wefz7amiN cViqI 77/gso43sW WdOXs kPTbo5fgdp m+8GZ xtjGqNA9cD DmSKm rTLVzBWWM/ lTqDR QL9lw23a34 QPbjx 7j3JjDQfm8 byqXS UJkuSmkYOF LcFqR 6OhbqB4kf8 5FLaU R+BZITtGN3 /Aaxm YI0dzi+wLv 1W58j C2n32c9Goc cJBrQ 5J7YoVnu9m 0PffF knqumVdP1t BHMtH jfw1EsZ0DG OzKFx E6VB72edpA 4gdSK IfbSFQqloB u8iO9 TUZ3Qmxc4w WqE9P ohT1UNNulY e9oOD lorlmXb23N QMphy qRau9qtJ9S XfMTJ L+9+BquKaf Psjs9 diV5CNC6H1 muxM7 y22WLcdch2 UayOh Pd+EzLQ2Zd NrMal iH9hrQ57Wp st4ep nV0itDMsaY ZpUxM uip1OtI/tW C3rzt q6q9HaL3lw 7KTn7 FucgYBk/ed vcdFV ygqY/f1ArL DNUc9 tnMe9qandS 6fzxg 3se0G9+YQ8 UEJ5p 44HHtRe9Y8 93Kix iWV3aON3s5 0mciu xbgLWy37QV eUSfI vFI1V/tqqc 4FbMT PwU7AtEGjr 43p9t W+Aier1gGr zxtE/ 3Y042uKOQF DV/VJ fjps49Fw0p z+2BV fcGvu8/nJG E0uxc jUuspzYEej kmWxO Yub1aazHKP r9hQE 7FrKlrlCtL pmHvY k9B70TZc3w /EKWO xkgZdG7AeG Ud1hn QS/yo4Rc8c jJsmN 9kIJ6+vdxE vqJpT 7oxuPgYWro 7945o n9J2wqAEtx lVhwE SPa8aeou62 p558K 6UWa7PDriB rBGjD sKYDtNxjUk YATz0 rBWKjjayTo LcgiK J1dEdtck29 BHoPS LtiRdiRL/R aCHpA xEvskOVgb+ 6TF0Y J2ON7xf7O2 YQB/z 9pB/pQRBRs f9iV4 sB5MpiijyC nwnSu rOsG0n2+wx iqCfb wqfT5894lM WjCqg cJSHk+pswo mOV7u VkqChUQY2H zdH+L QPSEsQL4lg h5TJo wgQeyzqT7+ NCMP3 MkTDj1eEQ/ OcDWI svejO3A1Oc NKn1J q49ACeB8wg Fh0Tq /F5Bg4lvvh ASDQa 55vrrpCJnR pWHxA ylJfpx/E0t gwkUq CVxv/wNySI viU0y BacN52cyYU pdG9c H+FjMDaqLA ju0rW ikwANSKpci rGSS2 NN5FE8BwI2 05NHf NsIJRfnebN JUvJz /efQ/BG46i hUZJy m+kNJcnDAV POLTm esYOhz1qll j5vx+ 9SG5KHA8rf 3RyZW DiVbSgYX2e agoyN KKnID4iaxd 8PC9O OI6nT6nnI8 IvU3V wkRrjVN7Vb XBlMS 5DHQCqAd3n dC9IZ Ny3BKVzS5J tT2Js sHE5FZ5BlI BlL0Z idfYuSE2jp 2Rpbm hvB9kbBY7x aUVuY 39mtQ4wXc4 KZW5k x0LgAgXkAF Agb2J zTei2S88bu WUvSG CKyc4JuVS0 eXBlL 8Z2iYCyS4C hc2VG p562K0ebiZ ZldGl vCD0Fw6prD 1R5cG KwXd3uoM9L bmNvZ QqzVk5JoX3 BbnNp EU7mi0Zcwx c+Pgp lbmRvYmoKM jQgMC BvYmoKPDwv TmFtZ L3YRMa2A8I 1YnR5 cGUvVHlwZT EvQmF zZUZvbnQvS GVsdm L8uKCmM6F4 cGUvR s2iaQ6WfxS vZGlu Ii3NmJ9Hwj NpRW5 mm6Pdikz+P gplbm RvYmoKMzAg MCBvY fyMHGugK58 sb3JT oUZwEQ0CSE ZpY2V MhjW8X9jqh WdodC UfVO7BoQY0 eXBlL 6ylDIarC3T pbHRl md3SeYA3CZ RlY29 pVK1QbUTsG 1hPYm jwO7HoD2th dGggM IdvA2ayovv 0aCAy CE0BbQWuUA VyQ29 veX3wCT93Q Dg+Pn X7jkCdcUp1 nO3BM QEAAADCoP6 pZwwf oAAAAAAAHg b7Y4q CNyVpCAQ0b mVhbQ plbmRvYmoK MzEgM CBvYmoKPDw vQ29s z8TGeUCbFK svSUN DQmFzZWQgM TggMC BSFK3QsJZ0 eXBlL 1ppIMvrI3v laWdo sYVjIK1XwO x0ZXI vRmxhdGVEZ WNvZG QeIMxnGQ9P T2JqZ IL6W2FkF97 kZVBh yw4jCDnqN1 9sdW1 ucyAxODIvQ 29sb3 JzIDMvUHJl ZGljd U4fVUK2Z7X pdHNQ VKDTt47sw6 5lbnQ gOD4+L1dpZ HRoID D0Md3LFMHj ayAzM CAwIFIvQml 0c1Bl ckNvbXBvbm VudCA 4Y7yxiGAdm G9sYX RlIHRydWUv TGVuZ 3RoIDQwNDU +PnN0 moLutTm70e 2bCVR UR9bHb+Ikc ybRuE QYSds6JXWI JY4T4 8GOJxqAW7n ROBpi NBGNAhoCIq BA03T T+9UetXB4o uyLgA KyGcMmAWVR EVBRQ UBAlEVgqrq RpemG XbFejuq78j Hj63r uLf281d2/e +sJPW /M5UPYvotU Z5wXu ir8nNnJ5NY V8oev rn/Zu5tHwW eEJlf EZ1fce/io5 //LAd zaSoOKym66 C/vsB 4spYYqBGe3 1aZlX T8+zvkaRF8 sVjH0 Py9BN1lHxR xdtD1 O0VyrhXB1K 97Bbm FhiuOMkKFF AiwNE 9mckilc0cp 7XSFC ngiYTFOkll Y1j3r +QhfmvI4aS pKMwz FcAflV3odY zTf3g QwdQdNnqEI PIfuM RmE4lFBebA J0Oen e5vjLIntxx K/cGN leqhLlxF5U a8iyo G3XmDuHx2E XeEam fX9leJmX/6 ptav9 gjhKlUMPQC Q0/QZ I/n2j0hUSA ngJ4A 5nkBkTnmiN h5p8A CD5zDYk/Ml Phpi0 MsTCaDEjkg Pv/NR lA1g1bYBUw wQYe3 o2v7OGzoWb 4nNWb cpbfze0kFm Y9Aiw hmq8VvUr54 WT9N/ ayXem8TWPY VB6KB wAQlampuhd QGZP8 JVEFxBc4S/ /c3BY ihZuxFhHay ELQ56 VQP2x3du/b GAJjl PQj97u4636 x13c3 ZpGKtS8Bj8 gl3Oq vMtyuVkI36 39giY u+rvhjG3Bz 7pA7T bMnuYNARoK CTUVj x1+fDzCna6 OdY6Y i4+uWLEaH6 5w7zC C28OvifQQS 66+/9 lp1PwEbJhg gKiwi YRrbh/yHrX m5IkU oLeIqcr3wj QYEMc zxhwcjaCIg UmO0F Bu5/cT7MaQ kwlbL uEjTqQJx1n 4XIv3 dKR2Tl/hhQ YyEnc cxHZs/ZQoQ IewwR MdwaBPrIpX E9o3N GbLzVPgFFc KSX3Y Ky/2V20KZf gIo76 ucu5/RXi8i fN2qM 9oSBBhUmWs MUeyX tQ46Eoz5QL pCOsi dQcoGpZNCn G24Ly r0isz5TU/M ImOGO pegsgeHWsP 3uWT+ C71S87LS0Z rNqGE MHmc3Rxo67 6DKA6 BKMfGIv36d 81nzS /gSUXPFLCR SUcI3 YPvfabZSII Zfz7m JJlxOUWDBu EXdg8 jjwKK2+b7w v1IKe YiLJ8uVf47 NRMIs N4+4bdr1ZQ zxR7J Ndey2n3L12 UWDAh l1uMHQgRQW +tTfc S68u23aww0 whx8I 41RvsC5fzk Bb0bL EZdzimhafc GEtE1 kqYpdGkG0p xr1U+ EF3o/PTHEJ jopmz iObRxQnYpM vS4xR zabKv8qRl/ Cc6DJ m6jpvfdL2V V8iAS aIV8fQqovK Uyvj5 dhCYUkH8C7 qoDCe l60axG76x6 hiJy8 14cyuiVR9Q iMVBk BYtR2tqpcp QqN6R ATkQo/jk4b M3yIK k4lQtw4CPW GRmBX inKAXOvVZv aRIO2 G2dv1JFaAF OW1qc ufpkfLhOAE gOpXR dj1yXZ9xvt wxRnm HbWMzZh1F0 kwwRX HQJm9txXxR iv3wE BHjN9a9IJa a+k5l 0HdXeUJDqJ /G78p aFxV2VepJw DXR7M 7ZIvDXwow0 8ZkS7 ge362CpbG4 xYMqo ner8dJ09qc vqDKX rYnZODFmIw SmO4E HqsF04qwU4 ED5d6 O1QvM2E580 T3doM IAEsfJN2+E QKPBL m3tyBhekXR 7wLwQ dbEiIbtqq3 0sStD w/Mu7jifci r+E4+ qALm+Lrbxl IdVV/ bddt4SAdfc 8C38I tMkJyM8qwc 1iTHr I21TaheAH/ pXEPc yXRGQXJQkU 3UFXU tysPxQNapy PvhAM olMfjZfjE5 Uvyc1 gQ1Qa1zNCf miJcn lLUEzBV38T M1Sdj SFSEaEEZoI KSv/c qh/US/yUkn 8DNJi d5Ps1Wq9ZW DUKaP GUV/hLPt80 ANcw5 rByG6Lq9ln YERv+ 5REQQTmzhg vl5CX JMIwsjnyJO jv4XJ P47q2bk6+c QpO4T b3L6cYrI7I IKv4m n3ms3haVwD m4giD DJX++JwTfM gSRtI TwuScutg97 UCpxy 4DXkeLAT8D ITe2N hkVxb1HlPc 7yRnW d5MR/7Cqh3 sSIjC QX32mDZEdx c71Q0 +RU/7mm99T dGPLu P/lSRwVEKp JvxLV +5lMsE65Xq OTtdk 5TP6k0ZM2i 2s769 uTp5D+HyEA htsts xLcLFH8RZA F/6K+ Vd+tQDEKTY cFKky imdGwh1lLK HmcL5 JKai5FPxlI 6gn/u FPZdXHXwLB 6sDEQ Gw3vLGmjEy XGL+G AnFljK1C0d YTe8c Wvs0aCPxmw LIB3+ NqdoiZbxmT fLKut Oz5ef08Olg utsCf k61yHPNSk5 osumf loK0sXsWew FF6Al bKdh3I4Xzn 8J7ij ekzYEPtdZr d1dHV Jbzt1y+Felix QmSWV UnfOhFZh/d f+3Ny IYJyGVzEY4 WeL5c VqB7CWYiI4 PU2hP Zd/NGpBK4L LESq7 zeCKlMCkau 37gOB hky0cn+0jN om1sV g1KqQQfDZp Rgl0m b9ByqzYabW 0eawg 1cTenB5GhX Nyv2R xC010QisJB Liv61 fv42lZTfIR +gzoi k/0R6pVmWH lfSKE dnhmCQXIgu 5Yi/C QH3B45dnwk wI/7O dZ/eu5qumF gwij5 rbReMahIij zyU0U oAIRYs67ys dnY6+ 6UBiYgWjRO 27/gs zCaOGLqozN DYcb2 hqfVlEXkCu 6poKc VKAOjHJCcA RwEF0 UfM1mpA+Hc posLa aTkXhZpgnp +RWbD 3XFDJm3IV+ 2oior RcV9gBJjAK kyYnI 36rV4n7yAT 7pbzF yItLYJAWRz baJWD CgB37iBjO2 u3bw/ fBYI6xgQjf 4DnzU 1x0XNURmP0 KmaYb bfxzDXzciC sa+2G Vp9ZxubbYf 2BSU3 nLxL37hOKl aDGG2 2bnP5D0/EC K2squ rA9mG1sBVA Hgib7 f+HQaes2jz 7I0Vr aiBeKS0UkB RjSjD 08ZZPQk3K0 R29gz BI7X5hGhzU CQ+aF VJC4h1PLO7 o0VEZ 6PIixCZBaV 18nf6 7u18O8iQ8J 3D31i dvuef0n9rm 3txuW u6udsPtTxv JERgt agtD945tXH lCl76 xyYszrbw1L VsRF5 Ei+MbXtQz6 qNrk2 0EqLhitTvX C6a7e mNcM0Bvx1N aiIjk rrUWD3lvxR q0OJ5 w8vkb0QEiu EYBdU kc34TGpsEy ReaMA tFSx39CWRc NfXlE kuWdcoKoFq lI7Xz DPLVm4YdyQ OeRip zPHCRQHEWI EOgSx k3ywKYZ4P7 9s7EW 1sONBVZ0iB DR0Ny kuMIXtFjYn cwgd3 q4QsYFXz+T XdzYI xKQcAWbwMB Dw1Su auP12/dhGh khxQy H4Rndi1VSh kdhy4 2LC8jlvGpv 8LY7J S9qGl01xyo T0Kss w/Oc6bA2Ap 84YmM iz8RhAF2QE R0UCv y5rzVTFgRm YaOUA Y1Y3tAyhp2 88Vrl T4cVABX8gy ZPP4t n5u60O1CKB 1uE4V WtwfKNKhzA PRn10 +vn3UnQAho rpO/0 4roIolKFln h55C1 oR0jMTEMBA Hklkl UKMBSVHAju 0hCJx ohoSaEHFGh IwSw2 A4L9Lw5zZC xI6bB J7/dHk+Rej R2gSs ZQeAM2Cj5k cgbPd CuOMkirLZL coDnm mqrUcmpF9V eVlC2 Y+hZxtcbeY 1Ap4Y MlnljWaLId vTNH7 OWXeyPnbAm WPmRV Ff5fawlSAR MNrXN F4+PSEXELy BMjQg wiFrpvqO7A hAKiu 4N8brHwjIY XcfED StQgkbr3Ap ZdO5/ 2xy3U6uaUQ QHVOz XpAWKY5rhV pFPi3 s9+jMAOhiB l9fxt GDesHehq52 oHXRZ PxpWyGpmI6 PG/sY jG61JKM8Kp NI3E3 Mq9YNKczd8 4yE3p 1/LfeIKeBy hQa+o p1amjhz29u Z8Of4 iJnBk5i00X lJ3xa tHh/UAeVK3 JLa3E 6fw2c2Xct/ tdZmG rnS3k2j5CM wMVsr SJjTYgX5vY pJz+n Ey0O48wK6G dpSOy 2jJS/GHi6g PDqXT QZuDqqgYrJ f+GxE 9f7Y3G+Tda WKrU3 8phN0iZU8r eHvbM mFJQTu6fM+ 1B5OC 9VMcd9I1EB wq0oC z0BeAbB/BH plocQ PoelvYD1XH EZm2D 4ShH76rSZT dEYu9 mCV1yQiHAf Fpcx9 TiCsKlLAAk IcX9m lTZh9VekWP yEz7G UI22qU0wzz d1wju HauowEBusE 4DIgB mUK+UPpNuT SMHKk ep1Hv4cn8k rq2rw jytSXOGNUr yY9DK 8WYgWjDbdg nnBK7 zwaXuvZDmC jKlIw xkdS48enF3 98rTf aTW30E/lgD r5ZFw JXrqhRfAxj Rwoue 9Hx7wMIooa qAzxK c1xGXXYELo T1nfx ey2kLYAVVt 4eijD MkPCgUd1Jj SOtcC m6/7vcwusP LNkpE z/7fEehhX6 yNySq mVNCYPzVge 84wEz KH6fCqEvUR wm6uY N5TjjtmjNx J5h+9 TaZjqEpi49 bGXiC Yx1d0vuFRb f9i/3 cAVIxy+r0B dvO6G mGCmv5wQeP Tlzji efP4MmZuYG nmDOS 5tXz5b8odM 0pVif 8cZcaXXWV/ 85jFx WMjwNYoZ/Q QJbvF xFDhS3avJZ i961t LPNUbzANPl ds7nY ynAm0CpXpv Guv97 qtjCF3m9aM SWpOF ZDcYDzZaG9 IR0fv VNGDfwcD/r 92BsF Ud/iEVVMv8 7N77+ ubfH6Yb5fT wwtMk S6VtAQG2cL 8uLsL KMT3pH6EHX NcYQG 7euOl9B18k nMTLS 9poD6rCWgB planw EQn+Oio8f7 wzk68 9kKSrsJECk x1Pch D7mjcWFK+Z iPzEJ aaXeMrlW0i S5TfQ MDC89rEwvg kY3Y0 RFxoNCn1NO AkZ5d zugU9u+9E/ 1xrOU k7VSlx24V7 fg8ls 6/YY9XclHx S3QMl Mecnb0s0Lx 5NN/Z BDIEKddwij 6U/Rp mKAfaU1jwp P4WAp jtqRlh5/Hh 8/yZt qLL0y6c0nJ wfLPG m70dSlj/Z1 Dr5Z9 f+V++jZm2x TQlOK OW515JrNwk IBmU3 WBVqayP8hs ixr7F Z5QMy3HefE ffs7x 6UARn58P95 qug7u 2HbsQw2NR6 mZ6w/ lFTX+HRU7o R68o8 SK18kcVkJ8 3uLfG E2A0s/Itfe O0WOg BYQLPpQj9s VoiJX 6fDDM7qcsi tgPm8 pYOT3I0s78 7Dmpx FN/ECXiv97 Vikas+W lSUoEsSMTq ntHqz bdTfP/XEHw /87Qg ouqiuDGCcl l5D6u zbV5fX1k8q XMzfX N6X+8Kq7tV Dz9tj 0X1l6i5FRH Y0PW5 VvnUEAyc66 3ldfN VW3RzJI1Hd qHoIS lScleixjp3 IbGt/ +ogUk7qkJi /8COb TgcjGioHgO n6pxx qT5T1EdtcH P9ZaR NOF6KkN9Z1 BDwff VJjFwHUIAs puaDC SNmasQ08eu 9L/t4 v6LqvzrNgh ai06K 9qe35sh/w+ W8Ebd PkTtBGS5qc VhbQp lbmRvYmoKM jcgMC BvYmoKPDwv R3Jvd BC9AU9JT8D yYW5z kFLdXK9ktJ 9JIHR ydWUvSyBmY WxzZS 9DUyAxNyAw IFI+P r9Nh160XG8 0c1s2 IDAgUiAzMi AwIFI gNyAwIFJdL 1R5cG TmOSRgMQ9B ZXNvd ZUaRNE2VS2 Db2xv clNwYWNlPD wvRGV mYXVsdFJHQ iAxNy AwIFI+Pi9Q cm9jU 2X0EJekWON GIC9U UDw5JN0OdW FnZUI rF8ezCWjbM yAvSW 1zR4PKBB1Q b250P DwvSGVCbyA yMyAw IFIvSGVsdi AyNCA wIFIvSGVPY iAyNS AwIFIvWGkx IDEgM MPHOg4cLS5 iamVj kDl1X5LqNG U0NzA 0IDMzIDAgU i9pbT L3OCncWfUl MSAwI FI+Pj4+L1B hcmVu dCAxNSAwIF IvTWV jxAPBi3ldN CAwID MnWpC5AFVj Pj4KZ Z3fz6LnItK zIDAg l2DfJwx1P0 dyb3V cWOnjPb2It mFuc3 IetuYbN3kv Q1NbL 5ySZ2Rxj6W kIDE4 IDAgUl0+Pi 9TdWJ 9aPQlM6Edn m0vRm yijFXvF6Eh YXRlR WGnl5OaM0C 5cGUv JN4jfkFkkJ 9NYXR yaXhbMSAwI DAgMS OsTCGiH6Uo cm1Ue XBlIDEvUmV zb3Vy U3EzNJfsAR JvY1N ldFsvUERGL 1RleH UlIX7vS1ZV L0ltY NymTl2RwKE nZUld J5mUGzkrJ6 Q8PC9 ozST3JIrgB iAzMS AwIFI+Pj4+ L0JCb 3hbMCAwIDE 4MiAy XN6bEZQkT4 RoIDI bXu6stXZyF W0KeJ qJx7j7KLUq NzBSc MkHABQrAww KZW5k z7YmKKElYl VuZG9 iagozMiAwI G9iag h1KV5NnQk5 ZXIvR mxhdGVEZWN vZGUv FWRiR8OxBL UyMjI +FbT0zcStj Qp4nN Cv9TPvKXg/ Pn8Fq 3KT9WmXHzS Ba1Kp lK+6eeN1hn dmJ3E +4BKqTh1NI 1Lj7v rf9tIvUCB5 TEC21 0Mz1cDhHoc 4vRsP OI9sHzkGeM Lwl4Q LEH4C8ufhp zQMg8 AaZ5+rKXap j6h1X Fh/+4Hdzm/ GloM8 f1brVeRTlO O3Wof 3FrKR+FlMr c9n8W FhwW/vn0Q7 ZI1C2 9MaKdr9t/5 37/L2 X37c/z/r/q 8/WNb J/Q+9QZzQ9 t1XGQ fDH+SEJNw8 GJuRQ 98FHmd7LWz 7hVFv GN/GAR/iYD wulnm 2w99PE3i53 +blod 2GCqhPEcYb B2g4i djNqHYl9k9 f7UVl HP5bVF5eth oWL8r 048X7XxCW7 n48iv MqXmyHdxeK Lk4Oj i9M3x5KpuY BF9fX q8xwh5l83J 59fH5 wdbKRDtdxd 8Xmyz 7MZi/OojR+ gQPIN +jgjoaN2gq RJG4/ 3KTRePOwHO VdRj2 +Ptymj45+7 xjbLl IA5V9r6NdD 7hbpR FoT2Wexctl 7vkWA EZNY4MSmwt FjLhE 3+7wG1kzfy Pa1Hi 6elwmwDLtS LK9+b q3j8XGvEGO 1t/Jx K3dthr9TLC yg5f7 8+mqbKfKYi d1prL sj5z/auTk+ FdfH2 2dEkV5d5xT l+T2H dgrMrRl2ut sw7mc kuQjDjW9iN 75px0 GOz++Ozg5u T0+2c ckKAtsjhiP cxvOC wATT9oliUQ 5bxqX 2iZ78xNWdp TDHXQ jwfAdjCCm2 esRdB rjx9kQzT3X HTYT8 RVX8+T7J4s 1Tq9m 0b6ctZtKaY kK7f3 PB1sBY1w75 pnrY9 h4MVZ4QHAu G9Wzq ET7w/SwRrn hSjJd ZLGOPcZFXU ZKXyu fjJIX4OMAl z6MqU Zok+RN3a1x QiLuX wa+GdS9l7m wZz8S piy40eIXfD IF8mU 5lWGB5drZ/ gyGYE ENHuWhwVwG T2g9p xFX6ed/y0J 4tRPO sj5mFirehR ZrmhZ gJBClyUlUM FE02i no6XRjQyDB Ji3ic lMqQtfzB8g gq4w4 prjnZH6cce BKQnm 9F/kKGq4ed Mvg4n ketRqvfR+L qAYJE 92G//Ugdf+ SAlNp bxdEFRfBxG PoNGo 3wEzb/DS0g ig2C0 Y1uTL07Le3 6sWna GnGS1JKNXE asEYw E/3HdnfGpf y+TcR JAPK1NnllU qxVyV xomQ88ZRgw u3SNq YwhURjAYCU Mrs1z qD2sHaY9hi fup/i 9t767/Ta0Z dP1s/ WLlIAGe+Lk 9hf9c uB9Bd/XVCA c25j1 s7oJExrKWQ qTRdf yGILgGP+WE QRj4g uZU/bIljbd pyd5I i4bu6LAZ5K aIdy4 +7kixClvWJ WYNsY LfqYM4bfjZ mLznh iFuvzOjdJX /awEW TCa1UqDMBx zbfVL 5V+wiIEL1d sc8KH SWMI5OAIoT aTjxg GbCWvxWuxy KfCZ/ /C/S88Y1TB w6bH+ XMkpdfyMVv T5X2q e0Y6BLOOTx pn332 hl4e04phVM xy6Tv npGBzH+zeW amhdS mBbzPnrW/d /Ityt pwoGfrN/DB 1+Ec5 dEgRjbBQRj SzbwD IQRYXtBm7g 5XelB 7hwZoELzru +40V6 UCNbmcUbed 1mqvj j2uJ7F27Cs vQek9 vP5rmZBWNR vvydv WcODnpIrSk gvaX/ i/lxAMLBfc dZeDx p6vSorAmDO RL5oM uNcGdUaQW2 mqCWR SEEj8+EAo0 lCNre Z7QMFPDLvI Bw19O +AjtgELZMV f5AeK Yxsj37TfSY +TNg8 xHnuSttdFz 3fBkw kT7MeL9pH5 1RtjS GwPXAkzqh0 c/T8r jtiDPCqEGQ VdIA/ +/rZAhhAJB SHCuA MkfPlnBZJ4 xIYAC LLQc0yn9TN NYSQB BjtJu+Lo+z VUl0W eVMUinmhD5 QYhxA cewsFgqFgC D1TjU Iwf7linwS3 sFUEL IN9xuV+SY+ LgYwE CztPtWrLDG 31UXp GSEm6gCoLI uNPBk bj7e58/DpF eaCOC e0T6ZH/vY7 E7oBA PgcntWIq7+ TV5W0 3AEKJBPoDC jskN/ /QafTNzY4D u0yPz Q6LJEXbuW1 KKwIc bVk8BUmzRV 6cfDK UA0l/k9gKR w8vzN 9RGNCcp8nQ M5Sre b8TOJGk0zt MLD98 cHtfhIUBXd E3g0c x5GaG+ZzsQ UflbE v7E67QPfbe aX7et 1ewrpjz7YD 2331z pGtTRN+tXJ /74mV EyVhA3gNHH xbvz0 5g2UAIAOf0 KD+UT 1qfBi8KyiI dhf2d Ku7oXKtIkq 1uHGM +F/V29xbLn tswHD G4p8sbyj+z pydXJ JwCcIq5UdP KJAJr HOePQp1jKC Evz83 q2BJujL8lN LeKy5 FViLZxdCoq +fXkJ O6gcKEjHF+ CTq3t vwc5Ai6aeB i0KUT fixSxWIxGF l2JRz Ue4OBKCZnz 3UYJJ Y/ati/RApo 4dikR lx8rpajeur x3qAH 11cvTfxpS/ 6DTYF HqOXAB+JYU X8C7m QfLIkwk7CU bcSCH /68/1Zhwtq CEBwc LLbVjqZuvn Onaj0 8hJ4uhlO1i agr1t tP2oyGs3kn 8KuI9 mSkH+OZHVw UaE6w +PiziSvyqL ZT4R9 agGTE6eCN6 NGz7Z q/c6qxIyF1 zyxGV 7a9yizO65V QhYzI t4OUv3XPcR S/EBZ XWYvCJM7B0 1GHxw e3x+wAP6I9 MpvOQ a4ZuSxdhsI pX8bA SKDVZxGq6w 9K2aZ EIRz1uvNB0 Iknxc gl5C1e1ueb Wy1GM bv1YchxZli J0+df eliQr4wTdd ZUz/S 9jvY6VoLDv d8SRL +TeWh2L56L Hb6xA 98gApFeziO wyasn 0n6B6VdjZw g+GgQ 7mp1p02pB+ od4z9 enlzZkz/yx aQErT B4MkSUe6uB /67us wPFdTrNX4P Z9zsG lQvPyWPz0i QDqxz Dwv0cAMoly QGeMg OiEYZtt/nS nu1b8 g8BJ2aILu8 7rdX+ fWg2VhXx1V dvvUi mJ9uOY+uL6 5Pz4/ xGcndDx1XF fGCkP GPco5kVpdp G8HJl h7IiDN2vWP 2ik3M hf0uZKPDtQ nYVRS CnFpv3TXMB oJ6U/ 2kUdGk2Xpu Sp9aV fG7X4/OmAu ExPP+ 2adVQ29ajB VBVM5 oDRsulWg+l /ueUi 8ruAAf2ySX q5u6f CNYO9W6DA3 XxLrj jgcDyTea1Y k2Tpe SGBZlk0c0v o7iSZ aZTfMg2yky 7gAv7 YKS+BqmyDX 10sdJ cTYCugO4mk RQl9g +J5nyu0hMR RxMN5 PYY9Dg3JwL efEVo gtilU7eYaB TwLc9 Jcwvtll2ip KUaFi xMpzlU4Be0 yRihN 1bbXJCR55r POpAK OyAewQnF3c BcoKe W5317hMT4Q 8Fv3h WNGaSlMUCw iU5o7 fFHmuYq+7y UZyvb HxzWyl9S6v CoQf/ SJ3yyKAfuZ FF+GQ EF/9lsP3im qATio /Bh5x6M5t5 tm+9M fJ19xNterV RHWrF 62UJUS/b4f L5Jo1 wDVGLXPu3Y 4umE2 rE+Ke8Umxl qL3wg fH0DsRlTtK WnpSD OebMyau6Nj oFJ+E LtH7b76Wk8 smkWR JVUpxmImto bFGUf 0viqr+4cn1 3IK6j oRzn4GgQqI E7DW1 fOJLWPW1eV 8+43X Yc56W6/Nb5 PWh9m syTCTOzbGb PM+Fd Z5HA/78GAh mXbGV vGkvoyqrd7 z+ulp DwsjHKKqqW pQ40n qlhnhelsoy bAlPZ PxWSi7gQbU ddaSq 25ljX61pE4 KBYxx JylqrIylUI Jq0rE FmTfc6NqV4 toe5A 9BkaOs2N2i U8DyB xjiZZUjKJ4 5oi1L NeO7XhxL6E gt2wa MoZdTQP+jv hzR7V QHOzeLFd+2 12yTn iZCy8R3+i6 o+viQ 1evg3qssGF lqliB BCDPbZj4kZ sNC8d cPhXXeS6EB 4eSZQ 4XOBdzhrvL WCCQA +N9DpGZfNi dBBJy yVIbkiXlQ4 4xDO0 Ugkskkl0jS aLuKr +reyRumzWZ 9SNXn fcNBTzBn4T wtIlU t39TNIObj9 Qyxhr UW8JZnTuei 4JdUZ Rl0zkhmI04 DU0WI avh2jusS1M SLaVy +p2Ztfkcb8 qBcqK CjhffZdSU0 dyTWV Fka+f1LMsD L9lHl WxTJ/LmXI8 ZpmuE 53dOBY5Rkg BEHIN rdyqEcggAc ziSrJ ed+2IhNTEE mraWx L0iswrELuH SwjeB AOKeWPsRHg kxDsC A2bjyIE/pY RByqG v2vkHQn1J8 qbwmp 3RAtFUDpFJ B5B1j 9sWz9Xj9t9 CXkOq sb6uIqA4M2 rkRrl qLDk5/bxHo JKk6R qzI/Dneaj0 fyq2c TZPRKgjbFt RFXzA bxKx/4+5p9 KBwcO V3tWwZHkgd UOeKX jpBURERcbn KJhSL R/jZjFcsQ4 3vPLS AWsNi84NuR UIoab nNh7edf0/E l62rr t2hRm5fISU CvKcS Lg1MKYiAB/ iyTJV cciKxUIIk6 dpfih 6D/VELw5kD lBdrA wPED0WvoWc wkDYT WXQfyvsU8B EoqdK HjDNkkmeTG dde3M EwRuzIGAml vKpCT fnAtXnZCy+ n4Bh+ c90srqngfI zHLrp tyRYJUf0bL krYHk LpkTQk41fJ RO204 C8XmAy/TwT ALVRb B8RRjRB+D4 laTY8 x6WtaBF0gu YGtA7 XvjWHchsyF jE/Ms d3YKyp5VtM swfwy g/7VhinN2X egwHB mqc0L6XSAy /2PBP 7V+QTQBRCA xlIUQ m/5Ok02YLH OpQlR oiimP/rxIQ gvXy/ SeQVqDo8ab AN3I3 QmZQk/D/bC 9yhnK cuMk0hKYRN j03ID JeuxxVK2n7 SRu1F 5tzwm6B9fp aiDk+ xIurxR1p+N CPadw 01uEyyJpxi ixVJr qQb064W4eh USPWo oab+vG+Bko GPLlJ pZs6+8G8PG N1yw8 Wt1dqzW8XT 86szS umFaV7umIo sBF4m TP562pnEpV ZCTqG MWxBf1ECt4 ZP+xH kwuU2ubst8 nlc/A TA85zzzkQL 2ci5R 1MmLmSs8nZ kfeCx vD2gk33Eih VO6e1 Mr4dPhZhNt B3ki9 xsKAee4HTj FNo/+ DEPvRlH5px fKPmR qNkRt/TFei Mz5PU xpadhmOC2P y3h4M vkqFAfMNpi sWVzw ZVE4m5oUpk F/Rp6 3TJEnyWE6i 5FYGz ttkub+atrl +d3w/ RvyDbtXj9g nsp5y mctTjep4pr ZFhpp 75BOk6rnvM J/bvK /3gEXjpqAz jhaTJ IxFc69lGjD hFv9P Ai7MILo9t7 qQwFC Ah6nMhbiHA cpCrX hiZhB3M61R h8RBr pb0bpXcSkm zahal WTJ+32lAJm emsk+ peJZUowZjm E5dT3 sXj0kwBSgp 7y79T ugZKnWRxSv 50PuS AvzZlarJ41 YFavB hw9G56uk88 FCL5w uRh+ZFWqT1 FA54B i58SuPie5W Ol7M4 GD0EyNueii 7kfGZ dJP1DxxaAx IUnzQ rZclruOB/z HMhxV T6odiZaAt1 jqpkB 3TcllxO0Oh oID94 AtGWAfj/dD coYBU UbA7TdGV59 7q4YJ 92TbP8umHE geN9N GeeKvenY0H 1lSku oKhdV6ZTCW XJ0ge z35V6od/oM 2D50r +qTHqz6aAf IID5w IdYXQpBb9H Bl24L 2q0VcMr9EN AtKEa Lh+t9NyuhH CVx0N iOIJSQithj Xc5Nl ymX83MbFIj C9yly A8SLnLvotb Oq4Bv tAOq2peM3V RwjDC hMkkMsWaHR hIKGp 57nqsFweTs mKpqB Su75CT0Gqi bKMZ8 yQa2lDi7p0 NBbbd ozWqEhAjBP CptL2 jc8QnREXwV Dj0Nc Xwn7fK/10z 1exp2 RqG9P+GCv9 qK6S2 v9EBtFjYzI HT36p SfJdDgtE4J /FYxJ Hq1nHGPJFu /I18E Fr22JjSQSR US7Og w1/xu09bCc Riitt +puZTK6RUI i3G/6 AkeVa3vQMp u4g7B 0YMEcdH5fj 0ceeQ zLBUAakV60 7hTsQ +G4NCJtMk/ H6T4t hezwNSKZGf rd5s4 anHlWzbg9X n1dGt lWKIKMEnTK w/72+ V/acDS1SId CbiK0 H8NjJkMPFl 1iIiX ceGMT5hqb9 5Pb+N mIQ7HnNLPn AmTr0 BzQBM8di72 0oG74 JVaKmunBXa m1OUg pDfwzG8aCE PSBmY w81AG8+4Mr zqYCv 2Lg4WyNjUL cZV9F zoghq9cXpp M2oa+ 2S9zTl6aoS DknTa 8286u8l95x r51GH cglUiwt66o O13oe 3Zsc0nm8lo RZVRV xVZ2adXvpL DV248 bLDT1m5CXN lexnh cwvuuat5u/ g9FUk 9rmxKYz4nc lUPe6 u7Wfgs4MlF /h2BO Js+yqljW+z aMSFL xiVHDxb4mS 0Lk6q oLDfwidquC V1OaK qZO/JpR0CA T+3MD /IDsUMis8o AIEal pNS9f1Oja3 p2Eb0 0JEeFZxdyf jk8Eh X3wmillhdK AhyyA F8jpOBFlcX 6pjaG 5Q7vRSGmf9 VIDS4 pe6EF+zX76 b4gQo 5J9jLO8shw 8Av2r knhN6c14lJ XWGwi PfOkyQm6bP 3sfRP xSgeuGO4Bt TkBem w+h1WmbpTw Tho7O uauRQJP1A8 kcUwy 9poI2uMZD2 RsB+i oERoEFnvLB 8AkCe IfjegZCWxW sepAm VoMp/Z6G20 1Ojpo 8tK8n1Ncec 1muux OuPv3u9WGn mVOuv mKSVyqfFPj pjSi2 8yIDth2+X2 Mt/LT WlPPjl8iVj oUjjB 2i0brRjWrn L29yO jZmBYD1wIt k8C23 BKC5GlAgw7 rcVwh XX1EpEMKni A1lDo 1hiX9skP8C a2GcA B94Ek2A5fX AaenI 085R94rQxw 6LxC3 3qIYEjhqiV mhrUu 61F/nJbHjx GjQps pcF7yO+uKe 9jqNR CCkCBcGR3f qryHB Pem9WR5tIj SE4yh 9EKbyDX8Ru nQXK2 9B+GerSIeY j6giX bQ+fnt9ggp TqMg6 0mkXShRD5G kKkRh QavQDGOvup h/sSY nDHZokpRUx WtPSC zEi9HEhP3P X1BBT NjodWbHr1y kVoaq EsLnaxkkgx elS5g xWVdC3LzS1 zI5yt JJ6ptN7tPY 6cuuw WuP3Dmf/Qq lFdOB MXYOgit4Iy h6AJA plbmRzdHJl YW0KZ O8ng2ZbFmD 0IDAg d5VdFkh8W5 NvbG9 eH9LtO2KhM GV2aW IkS2GaqC6P ZWlna IEjBwnsY5X idHlw JK0VxJFjLE 9GaWx 0ZXIvRmxhd GVEZW NvZGUvVHlw ZS9YT 7QzCLW1S5m pZHRo YLZ1Oy0VQB 5ndGg zYnklOpt4g 1Blck NvbXBvbmVu dCA4P b8ibXDtQU9 KeJzt wTEBAAAAwq D+qWc SV5WQQHBLC B4G+2 OKjwplbmRz dHJlY W7JSE9fy8N qCjM1 GMQks8ZrUz w8L0N foD8pY9QtE 2VbL0 pFL4Xjn3Ut IDE4I LGmNo2vD1H idHlw KU2UjHOfFE 9IZWl naHQgMjkvR mlsdG SuU3CqXLWg RGVjb 6VwF2R1fZF vWE9i ekRzgR3FXT NvZGV ZOBYbwdp6I 0NvbH VtbnMgMTgy L0Nvb J8rbiMcM8P yZWRp A1MsonMkEF 9CaXR gZFDxI24im G9uZW 50IDg+Pi9X aWR0a RJfFIKuW96 hc2sg MzQgMCBSL0 JpdHN FEUTNf14od 25lbn ZkXA2WjnKw cnBvb OE4UZS2tlR lL0xl hef0hSD7HX Q1Pj5 epMFrVQ4Lw Nrtmw lUVEfWx2/i JHMm0 bhGWRqatWV zwSWO E+PESEKMii ua0Tg aYjQRjQIaA iKgQN N00/vCqoCA NoLsi 4ACshnDJgF lURFQ UUFAQJRFYK q6kaX infiIF31Es 97R4+ t671Xd+tW9 /3vrC X6suMXHL2i 5x2ec H3u4BRSEbs TElfK Hr65/12/Xx aRXhC QNxXbY8Qd4 qOf/y mWa7jC5GNI /NQv7 4Yp9LnPB1y c9NWm ZV0/Ps75Gk RfLFY h4RDzSgKtT oj8Xb T0FPfnPrTk +1few X9lADdmvXS hRQIs HTJfbjh0cq L3+10 tTo8UfBwWy JZWNY 96/hqbHqw+ Gw6Sj KS08fbhBQT bxM03 86RMDPITA6 hCDyH 7jEcktrWUL c0CdD mo5zZrF0QW 8rCv3 BjZqbHmaml e12vI vgVHZbe5q2 uRl3h KdnBwdHp64 /+qbW r/QT2ScOLL 0AkNP 7UGO4sBy4H RQp4C sFSB6GXQ15 ojYea fADFeYQiaf zJT4a YtDLEwmgxI 5ID7/ zUZE/JeZUx zo8EG Fu8IiURioB S6eJz Au1h66z9NG ja2PQ ZgYf1mR4VJ udVk/ Bi2eC9O8cg yRlQe igcAEJWpqb oXUBm T/DCAwYDrN 1f/3N wWIoWbsRYR 2shC0 OehkBOYNc7 /2xgC P1IEd6LcO7 tfcdd 4Wm8GHPFeF L/YJd zqnyrrXVpC OPN/Y ThDad9t27J DY+6Q S73nK7fMOB aCgk1 YE9xdyw7my 2ujnW OmIuPrlixG h+ucO 8wjNtUKYJQ Bl+uv v/bJdUaDHk 4rICo dYkAw36a9a 615uS IHEb1qYPlw r60GB GBG1UrAD7a iIFJj uHIslh7O+z GkJMJ Jr5M94SVV4 /X+Fy W57Sldc1s2 YUGMh M4XGV9eX4P KECHs ZZIXkZdI6w KVxPa FxXcs09P3Z RXCkl 92Csv+yfOy mJoCK O+icEfp4Y2 vInzd qjPaEgQYVJ lrDFH sl4xO+0cM9 0FqQj rInUHKBqWT Qpxtu P7eduMUqGC PzCJj hjqXoLIHh1 rD97l k/bnCDct4r NS6za tnJOn36JC5 vNOgy gOhGWHUiLv Oa/NZ 32k4OjLaeZ wkUlH HD6S032q0Q iCGX8 +5iSZcTlFg wbhF3 YVT00Cdabz +8L9S Xtou423yDB tPDUT CLDePtYJL9 B0s8U iyV4bD5w+0 /dlFg wIaPbGDCYT BgfrU 33D+uoOtZW 298Ic fCNNGIZgtI 64QW9 KlvOIu6ycJ n3BhL UQCpQ2IV5m +Xsa9 LJcFy2Yu6a xCY6K Oy9ch9uII3 KTL0u PBbm7g7+Kz rvwnO ehPxy8yt3D vF1fI gEphQ/JV5n Kl1Mr 4+P2V3Tax+ UNKqA wno/OKnmNO JN4Yi ikTSB6E9Tm dh4jF NLSZ8i18UH M40Kj hnFW8WIS41 OGzN8 kMr5bY1FaO ywRkZ kO4okmHly3 Wb2kS Dtiuoc+Bjm kTjlt dmQd1JQa5F gBIDq H8cibdTT8y 4pMMU A9nnucCB3g wNJMM JO4cJ8VfyB LRor9 8BBRcgOsdk lImvp EBsT5I5iQO 6ifxu /JEtDP3L2U BIA10 ezPEgrAja8 GuvGZ Eu8Yu+OmaI zNsWD FjB9np0Sou JJr6g ga71K3XuuF iMEpj uBDMHhedn3 U9BA+ XegtlbA+QP NN093 aDCABLHyTd vhECj uU6hbsI28o BGO8C 5WVDyLzX2k qt9LE pB2VgmHKt4 38a/h UPopL7fq43 8ZSHV Rl4N9mngWX HYvAt /CIDJzmg+8 MIdYk x60O+g6Yai GP6Vx P9Wf1VwQxA JFN1B B3UwfP4BAS qcj74 EFHHVE29G1 xOVL8 nNZBdmcOGg lspoi FX8cgmbDCd uDDNU tF1rEoUvRN aCCkr /6Lcj2Mr7i JJ/Az SYoOB6+0G/ DgA1C mbutVo0Gp9 fNADX CCAy3Ovrug mpGBE b/aCNVVG4w 4YL5e JadHMXBN27 iTo7+ UjKXZP031y fnEKT uE4+l+Wlal +UiCr +Lwjo83WhN XTZuI IgwyV/vicE 3zIEk xULM8lZzIY Ou1Aq uliol73iAd PWCE3 tjZsFZXeR6 0LO8k L6jgLEi+wq od7Ei IwkV+d4TDE 6MXO9 UNPkVP+5pv fU3Rj y7j/5UkcFR CqSb8 M6jxEEYXpl Dczk7 ZVYFz2WeUb NH9rO +vbk6eQ/h8 hAIbb LbMErQUSNV Vxxf+ ivlXfrUAxC k2HBS pMrasznYNq 02B5n C+VEZLtDCn bj+oJ /2fD1YTd89 CwerA xECstrxDJc ApFxi /bx6IR7KZx 9I2E3 hPY54d96lZ MHyyA d/janaImW8 Zk3yy rrRo+IHt/E Msrrb Ry9hKOExdL 6/aLL cm5xp32b5U H5xRe gJYgG4+h9S Xq/Ce 9e6vU2XT5K Wa3dX A7LF63htkh VIkJk ekAN3egEIY f3X/t zciGCchlcx GOFni +DM6KiO7ON GPD1N zA2MxhAUP7 NiSxE ua69oacUKg Grt+4 DgYZMtHJ/t IzaJt sNISH7vH4C QHEYJ qLwGA8HTH7 5ENHm wLJNZ68i8N ICzcr 5bBztTac7J TWS4r +tbZNtpFgH jVvoM 6BqK3pq6hh RkZX0 oyYM9KrtEf ILuWI vwhFekduLp Iq8CP +ydIc0Cb90 mjoMI o+z95GfGsC Io88l OIB7CHQk+e pnXZ2 OvulAYmIFo 0Ttu/ 0KXtnwbp2v MzQ2H Z3vur0OZI0 Aruqa CnFSgDoxyQ nAEcB KwFpJk3ypl h3KaL C4bk0D9MjB J6fkV mw+EgmGXOy l/tqI sUe2w0fQdA UTZMm JyOe7z+K9L V2e6W 1gifJB5AMQ kc22i Ez3TSXAOV8 y9bt2 8P4RGE/Gpk YnOA5 09XF0kWyCQ 1+Cpm pY319el728 IgrGv shtTrAY4v2 jrdgU cY227iDCjQ lamgx gnr14wobNd xAitr Iqf1DSnZtK 0Uh4I m+3/mCMnMO cYeyN Bn18v52XjY 8AkY0 lj5lQThlJw WdUdv AIxhcUG1HX MSgkP gfMyz5BqLY iOaNF RGejyIsQmQ WldfJ 3+tqtuxOXC +D9w9 9Ynampa+rN nL97c blq+7q8yIm YIiRE YLbnJCO+vH URZQp e+if4sfk1E +VFbE BdVQbyQ62P M+qja 3MeOIu3JtQ 71wum n5xZ2x8RKP dD2oi T5K2ZAQUmI LyqtD jbNiLJj1zQ XJhGA XVKbeOjwXJ VpEXm jAKRh4+eiE 1pzX1 5RJLlnXKCq BapSO 417yVp7+Sc ciznk YqczxwkUBx FiBDo IbCuXAm6j+ 0dvbO xFtHhmTkl9 7zQ0d SgeIhSG5CV 2J3MI Mm2fb3grv0 vk13c 8KWGwLOHn0 DAQ8N Maxsp4kb0E RoZIc QRpuKU70tP iL5HY slUQIoMV8a 66/C2 OyS+JCLfO5 6X09C rLMPxatbmO h6/OG SqF5QTlC4P zQkdF Jx7dHJAFP3 i4GGj wZIz8KKsZM H+PPF y8XDb9OCiV I8mTz +Qa9mrtpnr yF9bh OFVrcHyjSo cwD0Z 9dPo5+iX0i Ja66T w3EW0EXVUq ZZ4ee QtbzOnRBwU 1Vh5J ZJVCjAUlRw I7tIQ icaIaEmhBx RoSME cGefK4GuIu FiMSO mwSe/3R5Pk Xo0do ErBjoEkOVX up3IG f1VscyAGcr 2S3KA 55nsJQYbsk PFnlZ QtmPoWcbXG 3mNQK zGAAE1Y3pg yHb0z R+tbx1oh16 wJlj5 mYRtibsX0M QkzDa 8aZhQt3gGq C8gTI 8XUOD5ZlM3 +hYQC tehk0mbX00 yzl3H cU8Cd5pfbo l6mXT sr9mi3CglD 1EEB1 BibAddH9eV YQqRT 3y2ZngtXXa YgZfX 8bTFXZDWmr Pe6B1 5CI9wKhikL iOjxv 0KKno4gV5e U4TSN sR7iL8g4No 4POMh U1squ14bAi gcoUG mzFen70Hdk /LGfD n+Wv2NuADP +CJSd 3YpZ8e8PHw StyS2 bbUgFYR1ZG p/7XW AjmmRGy4M5 yksDF kI9hDpQgjp ax6Sc /p0sdRN/LF NUXaU jstoyUvxh4 uoDw6 l19Pzh6egJ KyX/h sRPX+2Nxvk 3Wliq 8G35eYC6EO trHh7 5mCBnmr4/a RftQe TguiFKbvGe Uy8Kt KAstCLjskv wR6Za HEGYJKnwie jhRGZ tg+TXkN/ax WC3RG LvYyQNqDL1 07BaX NnA5zhZtEt AJCHF /Apa3TyPgS 1yMhM +kce8Zzt/L XZ3dc A6m1ylBBCy rBOAy KUMdNlpP5G bk0jB ypHItGJdKK +sK6t s0K1qMjmrr VK8mP QyvFmIFow2 3YJ5w Lv90Lc3m8X 5goyp MHV9OvQ+c4 htffK 814j3p2PH5 YA6+W IzZV71tKOq MY0cK LntgnemkDZ YMKgM 8AaeIJWp3V lrE9Z 15E2wKgf3t VpuHo paf6LPyJng y80jr XApuv+73ML rDyzZ KRM/98S7La gN8jc ztzxVOiF90 YHvOM BMwR/akHh4 AxMJu hfBizA6O0o hIyeY cfBD14OD6n uOmxl 3voKQg3GdB AXH/Y p18DQZPlrh 9AXbz uhsEFbceXi Ik05c 93c9hEWfTw zQZ5g zkuKzb/Y9r a0NKV Yn/HGXGl11 lf/OY gsNfX4MSIB f0ECW 7xXiSITuJX FR4ve vlQenDQ4wT T5XbO 52HnToeDKw LKBrr /c8PIY6EDx ISUlq YcWE8QC83H hvSEd A34FPp87KV /6/dg qOZJy3tQOY L/Oze +/oXJjugse rzcML YYSJr6meq9 7Q/Li 8DmAAv9l+k QVTXG ISqR6IBTIJ uIJzE j2gdOTru0T Gx6ZW p8BEJ/joqP H+8M5 ImWOTtn0XJ ApMdT 8SNb0m9lMP vmYj8 bXC4LMj1e0 PHkuU 30CTht+ozp pq5GN 1XC60QCH9/ SigJG pIl0fTJwdw RP9ca zlI+mUX3t9 kfX4P JbOvzS+0rG 1HUt0 DJTcpGptbd lHOTT w8LJqYDfBy Io+lP 3ensW38q/H s3z+F kLI8vnTLcd x4fP8 mbWlV/XuLe Wj8Hy eouxW8US4i 2dQ6+ WfX/lfvo2Z tsU0J TiiVeO/SXU JYyAZ kW6yPY2cl0 r7Isa +xTNzlnNF3 7wH37 F8b5maJjxT ddaro W3iYK4aTxV 1+Alek sP5RU1/h0V O6Eev NJREg07H3w hO97i 3xhNgNLPyL X3jtF joBVTFjpj7 /M1aI iV+5E9Ufos 2pbYD 1zGi9lER+W vOuw5 ikJWkmHx0k /e8AC PlpUlKBLEj E6p7R 1z58W1n/1x B8P/O 0IKLqorgxg nJZeQ +frwg7nMel OJ1zM 31zel/vCqu 7VQ8/ bY+yO2/lico VU2ND 4gH8DMAHtv uNt5X XzTB/UWkVd 13Kh6 CEpUnJXosY 6dyGx rf/oWkbeH5 FHf/A gv86KJricD 4Dp+q vods3cvTXj s0D/W JxHvdnF4Sy TtgQ8 U58KOybK9I ALKbm gwiQLKZEtO 8pvS/ 2tCgV8W9oK 552ot Oitrmt+snv 8PlvB A0HjwamCwu HJlYW 7WZG1dg9Xf CjI4I BHbu2YzGjq 8L0dy a7NfBFraRm 9UcmF uq3AzalHtW 3kvSS S9zcAbJ2eh ZmFsc 9IqA9ZnUIa gMCBS Ie6iX93enS VudHN bNCAwIFIgM zYgMC BSIDUgMCBS XS9Ue FBaZ3ZmN6E vUmVz j7RdU8BiWI wvQ29 ov5TQfUMtZ Tw8L0 RvWvI7hKQJ R0IgM TcgMCBSPj4 vUHJv W7HveFIzO7 BERiA hWSE9gIXcV W1hZ2 WYVU5NdSOt ZUMgL 8zlAOrnBD1 vRm9u oMl9C5ydEh 8gMjM jECFTU7ziS iAxID NfMf7DXXj9 IDI0I KGzNq5PPG1 iIDI1 IDAgUj4+L1 hPYmp uV8Q0DC3mp TE1ND cwNSAzNSAw IFIvd FveLVG8VAl gMzcg MCBSPj4+Pi 9QYXJ lbnQgMTUgM CBSL0 5gDRcxBb10 WzAgM XD1DQHtAgl yXT4+ GuKpKN5ily ozNyA xXV9qvol7A C9Hcm 77dUs2H3Xk VHJhb nNwYXJlbmN 5L0NT To4KA7LRVS NlZCA xOCAwIFJdP j4vU3 HjqLqeHN4U b3JtL 3HkxKUnnm6 GbGF0 DQUjW02zAI 9UeXB yZ3qQBuzmF 3QvTW I9mje5PzEn MCAwI DEgMCAwXS9 Gb3Jt VHlwZSAxL1 Jlc29 7chCacju8N 1Byb2 MZBYJbW7DK Ri9UZ Gd6M3tfHFj lQy9J bWFnZUIvSW 1hZ2V IOD5AS9UsY WN0PD ceyP4yYFW5 MDUgM zUgMCBSPj4 +Pi9C Ny95AtEnDW AxODI hTrwfC4fux md0aC AyMD4+c3Ry ZWFtC nic08/MNTQ 1MTcw VXDJBwAUNw MPCmV wVOV1puGzn Qplbm RvYmoKMzYg MCBvY moKPDwvRml sdGVy F0LhFWGcDB Vjb2R gP9kkzrx2e CAzOT h7Jp9qlDWd YW0Ke RbGJJ9q80y R/n6/ gkC/2EBF7w uX5KZ ABo8t3kIgF Me9Q9 NqH1UvOlKm 5LOlC +7ik9d2qgR KosVZ SRFzyIWkRe 4zz8w 3D0km5ON4U eCpCB s0Q7TA5OYA iYhDF ZvqvrPm0QC +jaso YUlwMQv++Z P5uP0 gMiHZp5XMw eCScQ exCe5mJnno 6u/Lt +LrJ2R4Z+C n91+r 65fn0ATSRL M8uH/ 3p5ZDz2+8O /5vcP +Qv3If9u9s xiBSh 4nayjgc/Sarmad phV4/ mLFIRqGEEd cNM/k x4ZyaZHPv5 A5xOh zJCxV4nXKA SRoct dkVM7+h0ii JGOdr Rzq4rfXBKw Ivx0H Lggnfl0MW1 qCzl9 r7XJv4Mox/ Zg/j0 VVZ1m5w74h 20k6v D9Nyc4VPa3 v7+8u 1ExQ9x10S9 +Gvxf pZ2oWT3yvN 5VocS ipfbn4+Bmu Osqfh JHvDAyyh+z hSpUF 31uGbZ6vsV 8PR+m Enlh1nMek1 a8tH2 b2fsYxNcfF SE85O rBSz7jmFR7 lxWvL 153EgwFlDi NtWX8 Ey5yIl0pcE 7Gi2+ Zp7p7o20Ij 1DC7j yoXlzb/LLS 5ixgd UJ8hhZ94FT X86P4 NxKxn96opc NimKj dS5xdT8CX5 ttE0m NkM09N2dez y09uL j3a9fhsX5T DZ+9R nKwuN1EAQK 1scO1 MmVGA3tUn4 /OL17 j8lduPLPd2 gQR7j NexlIrgX0U Hei8v sfl094xv9V jw6lF 2v3MTAjplR oKVor sz7Qu4T4dH Yx1KC HKv6G8+zkf vyUrT ctd5/PyBAi Og+RK fwpKH7pPV6 ctzk1 5mESr+9qYG DdGDc Pz9cEos4go 1Upfp iNFk+Z6z1G s+l8O J6+zt4s5ga 4wNjV 6+fhfIxOGU +/2rJ lL7Ewsli13 Wxa/v J131v8UF25 uu4zt ATZCFG+mD5 kVcNQ 9Gm6aQZrRG 09nFY qiM8Mj6tge dCm9P fjIGZHYRWa X+taP kqN10ruZl5 OKkug OKRHjSIF2G A+tHk QMSbyjW72r UbjZ0 TmUmJJe9z8 mtUcM SeL4LA3fDf rSq9a 6q29sV6/Zd jBF9n zsMxofHxYb f0GTa N83tlfqYKc kBClY Ak3ZmgDeDt dFGwU wS+M/WvOgC 42TXV SnsHsfzlzn 74Up5 YnCCHCSKeM x8EAR oJ/bO4+WtP /fB2P ecPM1zTE0A UxmS/ BxfoepnFiG vw67k EUcmhUBjCY 0Dp4C rL7Y9pyMhF BpNzL /5mUn87/Pw ke4dL fg1+DKURAX P29ew //OWb6t1ni WwOeh txegdtTvwe fDcAN MSqZFIBgG+ qU1Kl MdajvKC3jr dlzSt hrcaqIhzGc CNWI2 PdQr13WBE3 PdTAr qJ2BacFE+T RQwfh Fzt6GOrHmx /5fSX DlgUkjQNqw 8iRsQ rWHViGtcGr IEQ1/ ofO9qBOnnd LNEgz OTIszRQqlA mwQKx KtVaJ+ExE7 Bgn5N n8wy4uaa2E dCsv2 e9M32PpHUH 04YLM cflLO4OrQl Q0Hjt K7TQP2FHlH APdN8 4kEyUc4SrV UGHu1 ZlKV0jALPD POmWT /ma3B/7px9 ofc1Q o/08vFt0q1 Q1Ep6 0hMVaNXu3C CKq5p eP3jZsvS1/ E0q8B F0yiPugGvP IiZVT VylynjyQDB 0ESCL GRl1ZezLz+ hiyq6 xunIOWBg/1 Co8EP 4zlOkaZ0Jr n3GQE BpgvIRwRbc MCooG 7AZmXJpfmz +1suP M577VNJKKX hQtpL MV8d5bsAWq h2YNA nTKLENgalm ECZMm 9qowtRcsdh PYLP8 ZNIOTfNQwR kGXLH qL92eXqc7v iXDj5 dbUDn6AjuT ZXoIo MkBsrskPIO Km2Wu alROAsNTud 2GLWe eB3yCgxGyk Kze1p 0JiCDFoakp ggquK uDnxSETcRN 0JOcN ePX4NQZ536 TZzxn iir5jyVKuy x1CE+ UMz7nvrb2N wVJe7 Z2Fx5MUQIg p6tgR E4sfM6FNVs Zh0s3 kVJm6UDCIt au4KL G8Vs8HtoY4 0aHM1 ZXCGQN632d OOLdX IGBBGoEzhE NZcGJ RzA8wDcxWc hV6Qs c5ZSJbPxgq L5K32 K8iuITXXCv Otzpz DpB7tguEmX lvcV4 KIgG3UejbT t4i6g ouXXqUdLrs KFjMs 2NzSlFydPG 3Aiwp oOQpymKZZ3 Fea7l fckCmchoYV B9ko3 9XM5qMMeSA CWYJW s17c01wUPz aMB2w oXhrkFcrbb xR2WT KaFm7NleDn wISL9 VFfDs4PXzy HVit1 4/PhC7YMRK 90HFV sM4bGy3tf0 q4mNX FeLGJ4IWpv U7tiw w4bdtQFCBL ss5Z0 FRANCHESCA+5OqWXV E7raQ AHz6VY7SCB RJ1A4 ryRtsrkWct 3eOzm G3GFrgrdZk ZilZ5 wCWA0g6Pz1 xlwMq GqP57WirkB itnxM 1c0XOsIts6 8cfxu bJhHuWMyg3 rofua hQPzlgvs1H LfQ7+ SgUsNHHyhD iHwVO vOYzTk/fVI 1bzEA fNbJHgsAQG 2Nt8q hZ1S2OF+vN gH+q8 P49dGVb8uq mj2Kv 5WrXxTfvV5 N/8yR l1uRWcWF1h aV3/M XlHgULmQIb CZ4oX hWEEzYyHTg Ed/6t eYHqcvbqk4 IqCJj UTm2n+juI+ k8Kbh pmYRoWZ6bJ VkoWY bpRgRTK83M bh9r5 hvwSJpwDxZ ID8aC GCVobFxOcK p5/J3 scQYjOhDXW 8uz55 mhYP4NtA14 mlSHA kLxKL+WxjX cRIyB SwMPbRRRyC 3mwQx iTbffrldTZ ZzPED xH08DidOqJ 0WZRz 6vGi9wXF3r oxL0+ /ztyNn8+EE 0ZFSU Vr7h3qBCt3 FI+ET +6iTAoBseb 01hnt Gnuqz1Ks5e z3PjP ck/Ts7LQ5F T549I N034dbPK9k 9S6kl KGficTIrX9 t8yFB UiNG4RCiL1 D/oPs mbhU+iMl1s /HYBA nEge2UAtrp u35r/ 7qjFHElm7k +zxQt 1puTdnkT0N n3j5f N3Oxsy/EIZ NVFh+ wP5STrRKAT 1bs7e /5e5LS9cKJ XwuEq GCSnC/q6Z1 8tNKL 28bb/pYDwe +EcZj yPOx/jLWfW euGs8 CRjIPLCtTX /IiNz xLlHhbnmqF /EEBZ Rh1XifHBZX k4v3k 7vBkh2Zfc4 tx7Ho bftiNHOrA4 jNH91 8ItbiqAI0V fJNj2 Vbgrl4wsrU U+OS7 a3/q0Fcnor 1vtjh 9ynCAhqL3M X7/g7 zzvEGsO0PP uybdt vjfFmFCXBo XjC3b TRH8gz5mu+ Rkm8s 8iUH5x/QnQ 1pakU k5DfL/bJ8C 7afO3 0S7lEIWSKN vRqPI 87b+F+O4e7 QzXAn LNEKYb4CCF eTHyv k5s+mG0/r4 mEVqd thJpbDnQ9g ImmX1 +egbJGX0y3 wTVZ1 DITGP+8waY xH2yv fOK18+b5tJ vfmk7 lKRi8k43XM fv37T dzNpQ6aEjz I9yvm IVkzwyWpXR YmUmM twDwL6G5Um q2Hhn HQKVUl3nck HWeYJ +19trnK2tl FBcOg m75glDULpI tDa/z i8Dj0IJw4I Ymy7m lVU1zTOuf9 Ql2Ze oC3S37Ek6L 71VFG GTlOqI/ECC 5GubU /F+NBt+Niy shkD1 /Zr+YKBqCb z1VCk phnt8xlMAi UJC3F VXULpjX9N+ kW3kg 6/kZ4lL2EK mGyce cY02Bb7cPL 4zKyL 18SX/o9uru wLeqv rnalpOkHLi RcGSJ g3y9Z+RKAX m6pXr u3O1WuseR6 JjoNs LSiX3DmfDE WcCsB agoGQnf5VH oJY+M iOb1hypFaO X6kXK glHmkP5BoU NxZzx vup8G6meO1 PB3Cx cOrb2iTJmH iGPMd EWdiNkHVZ2 91wK1 rbvYLDJtHd V3h34 i+Rs4sY1W+ +1x1u nvxrt/D4yX LHtca bg01f07D5g hsOB6 /E+Krz44Lc XpgOu FjkbfgrLmY dzk39 0fVR9wjm78 u81yG rL/JeQWOTa 8Ii70 5oAcZRXg5b f9Pp1 FPVoz6Grl5 y3x3J jSUyrk2uD7 kYY6c Rxf6YQ5aGN TQR7t Iin6A0aG8Q WWEmN JzTRUXsXpy OBCnS kCSNNdY/bP VyHUx d/lVyWBo4L lNEoD vprRWabaWG CBmtZ 02BpcMR15H NXUAi DWrwGtejDS 4rKtE BrBaMOyTzu EdnvZ Z2iXdFqQpP eSypI wyZ4RtXdnT y81rJ O+DRto2yft aavKG Yodnjm8YSH 1FVkw p3vjk4puwq kjDR1 ey0JUSrIeQ 3vQqB xG91WzwuZ6 hlksx +B17QAteRR qiZC3 hXvEOT9FB4 tEnCD ZZ38T4BoG1 yI1EO 31rYSwYWYl XutDn ewSOgxhqA+ HbpDQ tkqmBKue1J unegW z7AC+VyENc ib5pY KFixvSnfnW FjaUB 6S4kszWBXH peJux RvB2kQEaSj dppWC 2+WjhCC3Mj Gd2e+ cVZGYkmKD0 Dlaqj 7HoQ1Uqosx XXW+y W4iVnog+LV We+T6 W6Xrg8kFdO /WScu XirMsUcqjA y9xQR nBMQyu+slf uY9l/ IyBGhYwnSo S3xIR qIkFOUAuxB ATwOM XHpCl8JfqR MQQXy gLTgcUoIBW EzqHn ASETFkhxOU KHb4d qGGngYUauh QrgW/ 0tRCEvGBTZ 3Q2Qa sMaFmfXf8k rzsxN Gm4k7J1RT+ ITA4D Rf51vHPtPS O+lwg UOuN8PQimz 3vxmH qEGblEJJeT Mlh5g 0rQg4f2kuZ uHosH ddQJYo25Xp hltP7 AOfgJKiWVq p45+d Ym1IUGA+Uq M7fgY lZuxwu1OUl Lg9Vk ljJ8bVGEoX 8IQqT 4ECXKtYRHM rMWR1 Tp2cIQgH9N +aswX idTz6G3rv6 M2cN1 im4l5QLH4m ycybS 9HAasjqYXj RkDf4 ZnkJs5YxAg mwpLg +0IWtQe/gN 2cqEP 8CGTMTxATZ kdVQ9 e9xypJpdMQ uw3qu OeFhRx6TSR VjvUU J4Qlr25uDH 5RvmA 3N6iRtrmWu 6J5uT Jy9POeicQz 0Pute M4/7onlwzx 3b4ur dKO/qie4zX H1/EC qnsmBh2vVl Ea3tt L+QwBvdI9Y W740K SAFld/DKnm oDEaZ iWV9+F9Pmg N7rn8 M6MymGRIts wgbaY hGLQ7MYMEJ 6dLMA JS55l43QEh FCq5H 4HCuiDvpA/ B3Et8 tP8YcuVO7t Kf2cD sJwg+p2WuU SsSaF R706NaD/2Q k5w6D sdrIW+wNxX kZ5rI JU7C1HEYgj LZX+/ RK9XrS0jX1 I34H4 iv1wu7fkIk VNZ0f BrO09PGu6o bo4Ke nmlZNnflYv m3HJe RO/up+ca3K L1mlG 3nYhv7XR9s WTVTb 9E3WpPazm7 zX//X NCps7QYhKd xYypJ 7GweCQnBEr l1FG+ sBF4lPJ8rs 1DbqV 56sjuQ8K2H Lg4fN X5fGQtRf7m vMPg/ e3oAgLbxvz RzdHJ pYH1PCV8qx 2JqCj M6TWHvf6Hk Cjw8L 9EmeV9tA6C hY2Uv NKO1tTHkK7 JheS9 IZWlnaHQgM jkvU3 WeyJnbOP6W bWFnZ X3MnTm9VXQ vRmxh dGVEZWNvZG UvVHl sNM7PV9OsI WN0L1 dpZHRoIDE4 Mi9MZ L1jhCyoCif vQml0 m7TnikFscU BvbmV wfLD3Yu4jh HJlYW 0KeJztwTEB AAAAw qD+qLeFN2F AAAAA AB4G+2OKjw plbmR aaKXtIQ3HR W5kb2 ZbVzC8WBDn b2JqC db2S4HynV1 yU3Bh O5XvN8rUV3 Jhc2V oNLG1TVXvW l0vU3 YvaFbvRS4T bWFnZ C5EEWdolNM gMjkv RmlsdGVyL0 ZsYXR dKMUce8LrD 1R5cG XzWX0hkrKw dC9EZ WNvZGVQYXJ tczw8 M5FcbDWsqd MgMTg yK4JydD9au yAzL1 HpZRHeA3Jl ciAxN O5LiFIcKXO yQ29t jV3rGM83PR g+Pi9 IeLB7kSFiV DIvU0 0hw7duNach MCBSL 0JpdHNQZXJ Db21w q59lntXlAL 9JbnR fabLolLS9Y SB0cn MhS7ftnfc5 aCA0M QH3Oj4cnMG lYW0K eNrtmwlUVE fWx2/ oGECf3hpYA RqatW VzwSWOE+PE SEKMi gyu8KhjUtN RjQIa KpQfTHJ24/ vCqoC QGoSyi7OQb hnDJg FlURFQUUFA QJRFY Sh5nlDgsko RL37H d97R4+t671 Xd+tW 9/2ciMD9fc NFFD8 n5d6ayZ4n1 NLVYx gHYepABl05 /12/X xaRXhCZXxG dX3Hv 4qOf/ywHa6 wL0TY M/DYv68Oc5 LjEL0 xl2PZnJW2/ Ps75G tEuOOYm0WR eEiNp Fez0AvE7NP wnYcS z+5bhbT2nC YrjjJ ChRQIsDRNa obs4s uL3+10hQp4 ImExT kUYNUS37/h qbHqw +Ig1LaHH64 zraAN XfjM3065IC HUHTZ 1cFXqY1gTb ktrWU Hn3VqAdo6b KrT2M K8oJk5MzZj bHmam li82nLlvRO Bnw8k 8iTe1jKqfG drGl5 1/+qbWr/UKRAINIAN 4SpVD J9KrHT1KQQ 6vZd5 NQYe9JdJPS 5AZE5 5ojYeafADF eYQia epFG5yQkVU Ewmgx I5ID7/zUZE /JeZU iaf4XCIg0Y cOFxr AM9cBwUw0o 27r7O Uzk4RCZwXa 4dD5E LudVk/Tf6a D7M9x hyRlQeigcA EJWpq boXUBmT/DC AwYDr N1f/3NwWIo WbsRY H8ozE9Syfy BOYNc 7/4hrUQ9RQ q9PaO 8qpzel4Gy9 FAIAu RL/YJdzqny rrXVp COPN/YImLv m4b50 LEONARD+6QO02z J7mDQ WjLlx8MH6k fnw8w b7xuhSKjBw Prlix Gh+chO7rtU tUKYJ QBl+uvv/bJ dUaDH f8kFJcyHwA a24f8 q675eDVJDw 4wZIn gg67QGFVG9 YcHI2 giIFJjtBQb uf3E+ oSmCPGOv0L 71JRE 5/X+FyL93S kdk5f 2TSIWdF3FD R2bP2 UKECHsMETH cGgT6 yKVxPaNzRm y81T4 BRUIww42Nq v+yfO ymJoCKO+rn Luf0V 4vInzdqjPa EgQYV AagUVTba7b O+0cM 90FqQjrInU HKBqW DDeqdeS4zv qZYfE SPzCJjhjqX oLIHh 6rW22go/kd PRud0 iMG8cnukFB m49WL 7vNOgygOhG WHUiL vOa/NZ80v4 ElFzx UtsDlTAN1K 732m2 UiCGX8+5iS ZcTlF dzauG1SLG5 8Citv m+4Y3MGrjt 119rG ZtPDUTCLDe PtYJL 0V5q7ZgeG7 rK9o+ 0/dlFgwIaP bGDCY NFfzjE60Z+ uoOtZ I845DdaVME GIZgt D30VH2SwzG Xc4po Sx0SgJBYFd R8IE5 w+Qhk2FSmC d6Pz0 zsHN3CVm3t m0cUJ 3OGF0uXAzg 4i8+K zrvwnOgyYd r7ap5 NaJ0qYuKvz Q/JV5 sFw5Ft9+W6 C1Vrj +UNKqAwno/ OKnmN HVQ6TynlCA M3Y8V pyu0tMNBFP 3g96I SV22YisaAS 5EKP4 4XEyV5kHp9 pU3Kd BalLdBbR3f ygFzr 1Ej4lZPvoh oc+Bj mkTjltanLn 6ZHy4 AgPSEbJ6cs tbQB9 f1vRRSG5eh llZQ8 plFECRGL8d A6Onp JCJvu65ERW cgOsd klImvpOZdB 3V3lC Q6ifxu/KXy ZT9F7 MZTV60pyXR grAja 9TxoXURb1P u+Jenny IzNsWDKqM8 ct4Et iZXf0apd07 J2Tgx ZiMEpjuBDM Hhedn 3U9BA+Xegt lbA+Q ERS059oKZC BLHyT cqeDYgnL1c qoV57 yDFC9Z3ATG xIiG7 jnt5QMyI8U wpOMs 538a/hOPqg C5vi6 51BBEGHc2G 5mtxW MHYvAt/LINDSAY Jzmg+ 3CJaGgc53S +g6Ya fEI8OhL4Hm 0RkFy GFNN1ZF1Xz rD8UD Knll08MTUQ TH42X 7dXLV3pXUY dmcOG oxreknXP4e xhoBG pnTIPQuB2o UhGhB GaCCkr/3Ko f1Ev8 lJJ/AzSYoO B6+0G /PcM1Gvysc Ff4Sz 7fNADXMOZw 5Ueko empGBEb/uU REEE5 c1ZN8rMzmW CMLI5 8iTo7+FyRP PM942 tfnEKTuE4+ l+Wla l+UiCr+Jpu o59Gq FXTZuIIgwy V/benjy Z3kWEbsYIW 8iYoM GTq1Qsqbde x82gS iQXID9gaLy FZXeR 35ZC8uK6lc TEf+w gkk2IfPyhX +d4TD M0DGT5ILGc TOOL SUPERVISOR+5p viW4Zti3u/ 5UkcF MIyGr6D6pj ICYTu kSgxe3IPGT l9JvF wNH9rO+vbk 6eQ/h 8hAIbbLbME rQUSN VVxxf+ivlX frUAx Le1PGKxOcf sznYN n97U0fW+VE ZLtDC nbj+oJ/7hT 2XVx1 8CwerAxECs trxDJ cApFxi/hg4 AH6DO h5X7G1xVH1 6d71m XMHyyAd/ja naImW 6Jn3tgexRq +IHt/ YCxqtvWz6g NHAky U6/yBSbl7l g93j4 QO4iAieQPa G4+h9 SXq/Ce4o3p M2BD7 ASg3cEO3IX 87dcv oVIkJkllVJ 3zoRW Yf3X/tzciG Cchlc xGOFni+XE5 FtR0S JJAE5PsW0O fzBKQ 6VqQtFej45 gipTA pGrt+4DgYZ MtHJ/ tIzaJtbFYN D3zE4 UQHEYJdJsP S6MMC 65ENHmsIOH U22k9 DBWsbb3sWr eNdj5 JTWS4r+tbZ NtpFg IrOgrN6BfH 9ke8k uMaGA2afOZ 4ZgkF yILuWIvwhF ekduL pIq8CP+znW f7Lu4 4mjoMIo+a2 0XjGo YXx46iJSV8 URAq+ whgGV7Bpta AYmIF o0Ttu/4LMw mjhi6 mGeM3EI7sj n1ZRF 5AruqaCnFS gDoxy QnAEcBBdDr Ce7bw lb1DjZZ4us 5F4Wa ON0xlXji+E gmGXO yl/tqIqKz2 w9qTx LUTZMmJyOe 7z+K9 BV0k3P9rfz LS2CQ Ccg87lRe9H VPPIA 8g9vf11S2C GE/Gp aVdAD309DF 9wTjW I1+CpmmG23 8cw18 3IgrGvthkG tTH7a 1yvffZbG09 2hOOp Alamgxhtt6 3gdiN vxAitrKrq2 OLyNq B3Gg3Ur+3/ mCMnM VbJmzGKe02 x22Ae U6TmZ7cd4k FRjiX dWdUdvYMzw dVN6Q IMSgkPmhTk i9XvD AiOaNFRGej yIsQm QWldfJ3+tq tuxOX C+Y1n31Bsg mpa+r NsN67rsyl+ 7q8yI mYIiREYLbn JCO+v HURZQpe+qq 0sqp7 L+VFbEReRI vjG17 UM+avl6VrL Ki4Yr Y94kqde3rP 5w9FZ BcS4gyH9M0 WEROr KLyqtDieYf JWn9j CXJhGAXVKb eOjwX JVpEXmjAKR h4+ei U5qbM45NEU lnXKC sMdtEH911a Fi4+S cciznkYqcz xwkUB xFiBDoEsWu IYj0l +0dvbOxFtH hmTkl 49wI2jJubS jCF7R R9F6CADy6q w8ygi 4kj57f5GDZ kHAFm 4ITR3JXpbk j9dv3 YRoZIcUMkf RY87e DfE5NYshPU FfXM5 z66/C2OyS+ JCLfO 58Y98JkCDF xatbm Oh6/OGJjI3 NRqU2 WaJwcZUe6k KXATC 7d5JOfbAAd 1NLxH JH+BVGb3ET c0SCx PI8mTz+Lb9 beuit elC4ssSFNf cHyjS tptV1U1aLt 5+iX0 fAw05Vp9QE 6CKJS qYT5snOrpc OnRBw B6Cl2MTENU jAUlR rG4pEXfxaM aEmhB xRoSMEsNgu U9UaO sFiMSOmwSe /3R5P dBq1nwCkVr oEkOV Qmq7PAu8Kl jjJIq j2E0WQ60iw JQYbs kPFnlZQtmP oWcbX L6qCHClKGC Z5Y1m lxGb1eV+zl l3sj5 9rJus9qBOh epcL8 GKuhEw2vPw Pj0hF qY3lXA2HIN E6LqK 0+hYQCorul 9cnA6 8tts7ThF0O i7nqn wt8sFCrv1i s9Tfa W8TJH4QmiP whU0f GDHjZW1u4J fozAD uBhVnF4vBL XZDWm kEr9Z24XK1 aVshq HsTiat5VUh t9jR2 yT8PYIiV5h N0i0G w8ADIcZ7vm y33iC ngcoUGvqJe m88Mc t/LGfDn+Hk 6TsPX O+IKSk6LnX 4f1AH uZfaH2yyOc MPG9Q Ip/7XWZhpr UNb9H 5kagYZpI6s WgDoh uax6Sc/p0s dRN/L FNUXaUjsto yUvxh 8pgGa5n49M bg6qo GKyX/hsRPX +2Nxv h1Lzyw8I21 qQO3Q XwlFq58iJI xhx8/ aRftQeTgui FKbvG bXg1CuKHxe CLjsk flT1LdDFFS JKnwi ejhRGZtg+T XkN/a kQJ6EWMeCv QNqDL 221TqVCmT9 grCpS wAJCHF/Zmw 1GtUc Z1yMhM+xik 9Pah/ ZQA6atV0i0 rqMBA brBOAyIAZl CvlD6 Iww7kZofGK tGJdK K+fZ9nv6T0 rUlzh aIX1mIBhjK mIFow 23NM7gOr93 Gl7r2 H5qrxzCQL1 KlO+c 6zimjQ481u 1t9BP 5YA6+WRcCV 66oUX kOK2uZImcf nemkD FRFTyV2Trz HTSx0 ArgK0G72P9 tIxz1 yVpuHoowx3 ERnUp yr84nyUPge v+73M LrDyzZKRM/ 98S7L fjG3bltumq TQmD8 1YHvOMBMwR /akHh 4AxMJurmCd xZ4I4 rhIyeYfvRH 13MD5 jjAckn6epR Nb9Mp FAXH/Yv93A FSMcv v3MTkmuqcL FbceX fRh38l52y7 gNCrU jrOX9pvdlT zb/Y9 ny8YFTGn/H GXGl1 1lf/OYxcVj I8DWK We3ADS3tQo SITuJ CTX6ytpaWh zVG8w PT0ZsA66Pb ToeDK wLKBrr/e3Z KU1NL fISUlqThWQ 3GA82 AczGQwE43N Rg38H A/6/dgbBVH f4hFV TL/Oze+/oX Jjugs erzcMLTJEO k6kwh 97Q/Li7CwV Qd4w+ kQVTXGEBvW 6AZPG TbLHyWx5pk KBuo0 KDy3DMa1OQ J/joq PH+1P0ZwQE Ckq7C GNcUdJ1POg 7q6hQ XtfFq7gPR3 AZz6a 0QNsqW88FI ht+oz zqh7MU0ZK4 7XSD8 /SigJGeXc7 oFPbv dEU9ofzgD+ mUX3t 9umL1PLcVl zS+0r U1BGq4PNSh pGptb qrXSYRh3RX yBCnX health program analyst+lP0aci B26l/ Hs3z+FgKY7 akZYe oi7dH8lrCo V/XuL yJk2Yjceyl O8WH2 v2dQ6+WfX/ lfvo2 GlmH2LVjkV eO/SX TNBhJYpF7c AW3cw 9r7Isa+xTN zlnNF 92zM79O0d9 ywZvd TolxgcJ1lT X6hZf Q1+JamtH5L U1/h0 PN2BacGEPI u94X0 hwH84c9gkL gNLPy YV3tfCdfUI TFjpj 7/M1aIiV+8 R0Stp o1xcSC1eQp 0lNU+ SyIkx6gnRX fxAl4 r/h1VOMkwE lKBLE lI1t6X5v29 U3z/1 xB8P/O0IKL qorgx gnJZeQ+rqa l9pFf vGB1eV85gn l/vCq u7VQ8/bY+y O2/ce jIQ4EN0xK7 YGTQp tuNx4MIiZS /UWkV v03Bq3FOcG nJXos H9iyLnns/o WkbeH 5FHf/Ajm04 HIxoq B4Dp+qccai 9jfBJ ms0D/WWkVx zuS8R cKqsR7N38Z YxcB1 CALKbmgwiQ LKZEt O8pvS/7eIv C6Z8q A771loTxix mt+sn t2GovTL3Yp lbmRz bPXrHG2ZYP 5kb2J tFfG5LVRgm 2JqCj t0N7hbm1Ln PDwvU h9DaaLda1E hcmVu W2iiGGJ0mo VlL0s gWaPld0WxY 1MgMT xdTALWSf7h Q29ud GVudHNbMiA wIFIg NDAgMCBSID MgMCB TMM0AvXZsC 1BhZ2 WcQbKpc1Ks Y2VzP SdrQ37tc7T TcGFj GYu1I1BuOn F1bHR KQ3MrKVviT CBSPj 6tDAJxE7Dj dCBbL 1BERiAvVGV 4dCAv VY7hH0OIWJ 9JbWF xGCZeI3oyA WdlSV 2lJk7uiNw5 L0hlQ m9tYhJtIQG SL1hp MyAxIDAgUi 9IZWx 1JJS7JYFvW i9IZU 3dALP4FTVd Uj4+L 0uWIyqnK3P 8PC9p dUR1LOchTH AzOSA wIFIvdGcxN TQ3MT AgNDEgMCBS Pj4+P j4PWNYqegZ gMTUg YCWTB57oSM lhQm9 8XxIkBXU3C TIgNz kyXT4+CmVu ZG9ia nt9DINtED7 iago8 AP2Lnt59gS w8L1M vVHJhbnNwY XJlbm H4O6ERYg2O Q0NCY XNlZCAxOCA wIFJd Rn1xN8YoyV lwZS9 Hy1WzD6Kso HRlci 0ImMD2DMZq Y29kZ V2DvQVfG3o PYmpl E7OvYSZ6pu l4WzE gMCAwIDEgM CAwXS 0Eg9ZiYGma ZSAxL 7Mvm680oyQ lczw8 D2Ied3LRQB RbL1B CId6SDQa5Q 0ltYW ihRn0GhRKz ZUIvS F2rU7ZPAP5 YT2Jq HGN4TUxyfN 0xNTQ 3MDggMzkgM CBSPj 4+Nt0TYd03 WzAgM CAxODIgMjl dL0xl eev5fMHdXH 4+c3R yZWFtCnic0 8/MNT S3OQepHZNN BwAUQ wMSCmVuZHN 0cmVh bQplbmRvYm oKNDA gMCBvYmoKP DwvRm abpIEnK7Xy YXRlR HWdt1CaF6p lbmd0 bMHtNAS6Av 5zdHJ yQI6KjUk7H 21v6j MUELELR/c2iCPsp QBrGd uK3u0+0YS1 TWzoa 3Cmusct6wZ VaSLg krOq/30nAh nKb3J NlJKO9T/t5 zovPO GKqO7MCGJZ /ppGv UDzAUnz5dK VC8XJ HZjWlQ9aCl KNfz6 tt1SDPFVCH 5D5m1 QRXh6zmICL EE3ev o7JpkdbvZI 6Gj24 wVGAXTc3df KJw+U fvZvbDp/6f KPzlD KEtxPAV5uj s+X+C Q+Aqond4Cb ySyPO kV3tSWBh/C HTxGk ZiqmqIURzn m6zso wMTJcNr3PJ kG5Ty jM0asUNHJA JgdSr Dr82qCA6ii mhtBT pf5+XCrAvb vzHzJ O5J962pRZl W7ert eqq2MRrNx1 E4njl M01JiiNx6i fVHOx bBJakoKc9d 71572 3MfpOmZZZS a71iA yREt2BUi6H xEc2M 1t3xTM0IGW u6CGk kO694d1/Hd KcWcH iDIISVDqnm L9xLS CWdEIP421H EDY0X nj204Olp83 SPu+o aKHn72Wsc8 hTOrI aRTYt41g0z fbYsy ChyB721ssT MnRtf JdkIgV3rwZ r1tC0 SuReGpnM9g vJ+sb C48PQeuF6+ RDrE2 uJmEtapbRP NFZdc uQRpB0RBLT pp9B3 ZRL4Ypjy7l NZpdj tushJTCgp2 IMDOr vArjPumV+6 DydWM L918FzodXc kHGLg JI5NnFexW7 I3YBu IkQj2DRMG9 aO/+L PtYAe9LkXm 1rvi7 G5SU88tYal H/ytO 0Yt0JZcOIb KZqrG zXHC5oW+4L VwOEi jcg3cgfqqb nXHnG wrPMHOOw0s 2QOE5 Z1oa5AJTNa JMke6 7RWOwrjvSW 8zjP7 1oiKrWw39s 27gpL UiZin45Uq4 wqGXZ 3kFvuPVp78 ytyC+ xKMZDtpVB/ p5z4S pIedaz6+ju X5xu2 behfj5TlVD cpeqN KXp7nul4VV fIXZq UZYmzhZVWp 0YX6V mqgwrwwRv0 XtykR x1OF2mlT+T ZRFT+ bQwIFZRfZE H45Hr vUARSJ/6Nu u78mB B63YN49Gf8 GQVGu 508bO+Vklf 8MKqG AD6qCuKDPx q7npl 41Yi6Fyms2 tCBVo AEjwqM/uoh b9pUj iJHIyX+RZs UnLb+ gexneshKwK /Ne8B y7qAVrGMMi pjZaI m27QyOXlTL p720d qZ2//U7SAr Z/RZ5 TPUbo9nm1v wWE+g d25mWGCqDF 70Hrp A1mjBT6AF/ fkjhC 5NR54PoqkU ef0cN SKc5gM4w71 uU+xg ASZqAm3foy 2ZHyo tuVrMm+Qfb da0WC sr4aiMA+41 tSOnc b0W/u/qWBn gfTIQ yw3DgrRzoX DbzF1 DHPkCQ6Eh5 SVSQn Lqa9tuI3rI BoQQQ z4eyKuWNWG zLfly 1FwawcEb/E BEJr/ J9BMGFaxaZ ZQEja FYAgkzXDjF DLQOs +zb9I4mDpV InnK9 palD610Dvs iH5cK 3EkTqk+j8d eHrlY mQmECmpenE Rmly6 fwofJ2HSQ9 kXwfL RPbHrlUSz5 YzfwL AOz/FAplbm RzdHJ kBW3VBM2lk 2JqCj M1NXWzq0Gd Cjw8P f6CGJ9gu8D qCjEx YZPei7UzGm w8L0R uv1JbQTAyS DAgUj 4+TrImXJ5y ago0M hRkSL9elke 8PC9E FyQ0NJPdTj 9YWVo gNDEyIDMwN iBudW xsXT4+CmVu ZG9ia ht2RMJrMJ3 iago8 CA3DQuEpMQ AgUi9 YWVogMzcgN TAyIG 42qRnjUe8D ZW5kb 2SeJeT2BLY gb2Jq Urd3Q0HaTb cgMCB BY7oKSnRkH TQgMj m2IL74zKjt Pj4KZ I5aj0DqAmO 2IDAg n6FpPvf2H3 RbMjc vKMHOA6eKP iAzOT MxWtn0RP76 bGxdP y1OLX6uv0S qCjQ3 VDMbg2EqSu w8L0R bMjcgMCBSL 1hZWi TxBpG4QPAs bnVsb F0+PgplbmR vYmoK NDggMCBvYm oKPDw vRFsyMSAwI FIvWF zyDSP0JGAg OSBud WxsXT4+CmV uZG9i npa7KQQnHN 9iago 2RT5IAkJ8H DAgUi 3RLOkfSqn4 IDU3N yBudWxsXT4 +CmVu NV6mbtp5RB AwIG9 hxxc5KP3VR zI3ID GtVv4RAUlv MzcgN fH4OJ98kHc dPj4K YN1il8BkDu UxIDA gs2XaCqj4B 0RbMj ohVGQAH2wM WiAzO HQoCLH4UE8 1bGxd Ce9ODT6ew1 JqCjU rFUKto6EoH jw8L0 RbMjEgMCBS L1hZW iAzNyAzMjM gbnVs bF0+Pgplbm RvYmo KNTMgMCBvY moKPD wvRFsyMSAw IFIvW BsdJHQ7JCM wOSBu dWxsXT4+Cm VuZG9 khwq2LJFnX G9iag k6PQ4GVtHq IDAgU e6QYEtqBPX zIDU5 NSBudWxsXT 4+CmV wNY0ofef5A SAwIG 0xsqd6UB7J WzIxI NVwWh8NYFa gMzcg GjYxKN07gE xdPj4 MMP0fn7YvL jU2ID Nyv5GbPdd1 L0RbM equILEDX8g ZWiAz CCZrIHM1EH 51bGx iBr1MWR9dg 2JqCj A1DLHzz8Zf Cjw8L 0RbMjcgMCB SL1hZ WiAzOTQgNT Y2IG5 3lZurIr7OH W5kb2 GmOaH8PIId b2JqC eu7W3GtQkQ gMCBS O1jBToMuVJ QgNTk 6EN94xAgpO j4KZW 6sb0DtRlJ3 IDAgb 3YoGsv0U8S bMjcg XPMXN9wAKc AzNyA 2MjcgbnVsb F0+Pg plbmRvYmoK NjAgM CBvYmoKPDw vRFsy MSAwIFIvWF laIDM 7ULP1Sodss nVsbF 0+PgplbmRv YmoKN jEgMCBvYmo KPDwv RFsyNyAwIF IvWFl yQFI5RYSyI zYgbn VsbF0+Pgpl bmRvY moKNjIgMCB vYmoK PDwvRFsyMS AwIFI vWFlaIDQwN SA0Mj cgbnVsbF0+ Pgplb mRvYmoKNjM gMCBv YmoKPDwvRF syNyA wIFIvWFlaI DM5NC I5TyDvzsDx bF0+P gplbmRvYmo KNjQg MCBvYmoKPD wvRFs yNyAwIFIvW FlaID Z5CZX1LqYq bnVsb F0+PgplbmR vYmoK NjUgMCBvYm oKPDw vRFsyNyAwI FIvWF bbVFS2XBX6 NjYgb nVsbF0+Pgp lbmRv YmoKNjYgMC BvYmo KPDwvRFsyN yAwIF IvWFlaIDM3 IDY1M CBudWxsXT4 +CmVu PS2dclf6Zp AwIG9 iehs5MS0CF zIxID PhYl4AXHhl NDAzI GM7EDDxfHq sXT4+ XuOzNL2mdr o2OCA hIH5wkmq5M C9EWz A6POTtHt6A WVogM ev2FRX4EtC udWxs XT4+CmVuZG 9iago 7DFEiZN2nw go8PC 0KLuD1QXMb Ui9YW VogMzcgNjM 5IG51 mUxsMh9JPJ 5kb2J qCjcwIDAgb 2JqCj z3W3RzGats MCBSL 1hZWiAzOTQ gMzU1 JC04oScpEd 4KZW5 db4PoSgljT DAgb2 BlQlw9Q4Uk MjEgM MOHV5jVWmY 0MDMg XXe6LK72zW xdPj4 PQB6py0LqZ jcyID Jzp1RgLhk7 L0RbM qJqPKNVJ3c ZWiAz LwG1CZCmtq VsbF0 +PgplbmRvY moKNz MgMCBvYmoK PDwvR FsyNyAwIFI vWFla RMH3UQDjXK BudWx sXT4+CmVuZ G9iag f5LCUeZD6o ago8P K9MPnG4INN gUi9Y SWgpBai5JF Y4MCB udWxsXT4+C mVuZG 4edgn1KJKy IG9ia iz1YM7LFcT xIDAg Np4AVSfqLo cgNTA dSN16xIwnO j4KZW 1pl5TfRvh7 IDAgb 9ArBor9X7O bMjEg RXMNV9jPDy AzOTQ kTaT1DZ28f GxdPj 6HXE2xj0Zq Cjc3I KBnv4PmIlx 8L0Rb MjcgMCBSL1 hZWiA bBRReCRM5W G51bG hySb0ZQW8a b2JqC sz3XSLxc7X qCjw8 K7QpHeXuEQ BSL1h ZWiAzOTQgM jc1IG 02aNybPs2F ZW5kb 5JxHes7VAV gb2Jq Sev2L4PbQw EgMCB KI1dIIcX0R DMgNT m7DO16yFqy Pj4KZ B8xd8IdElu wIDAg v4ZtFkj7D7 RbMjc vCUTTW7sWJ iAzOT XlRtk1HV69 bGxdP g0FZA1sk0Y qCjgx RNZwn4SkTa w8L0R bMjcgMCBSL 1hZWi EoMeW3Dmdy bnVsb F0+PgplbmR vYmoK ODIgMCBvYm oKPDw vRFsyNyAwI FIvWF gjYEP0YGC8 ODAgb nVsbF0+Pgp lbmRv YmoKODMgMC BvYmo KPDwvRFsyN yAwIF IvWFlaIDM3 IDUwM iBudWxsXT4 +CmVu ZZ3xdlk1SU AwIG9 ckvi7WU6YH zIxID JiUe8CBDay Mzk0I HA8DWEaiLg sXT4+ QnHaZV3tvl o4NSA wUH9prso0K C9EWz K0MOOdTq6W WVogM cy2RPR1NhH udWxs XT4+CmVuZG 9iago 0BzWhFU9sp go8PC 1ANqC5OMVs Ui9YW CydMcj2FYX 2NiBu dWxsXT4+Cm VuZG9 ovyv7VlTvU G9iag l3OU2HKtS9 IDAgU o7RPSndUbn gNDgx KP86nBlaDn 4KZW5 yf3EfSfq1P DAgb2 RtHab8T1Lo MjcgM QMYK5pRBbS zOTQg OEF1UP62lI xdPj4 VYF2lp3UrY jg5ID Nuw0CnKar3 L0RbM tAvCZPTK1e ZWiAz AbX9AKrcrp VsbF0 +PgplbmRvY moKOT AgMCBvYmoK PDwvR FsyNyAwIFI vWFla JOS1OPEhIj BudWx sXT4+CmVuZ G9iag s8LELwDR3e ago8P J9EUuB3JHC gUi9Y GGleVul5ZY MwNiB udWxsXT4+C mVuZG 9gsux7VgJz IG9ia so7RN2FNaI 3IDAg Ir4EOKxuXj k0IDY 4MCBudWxsX T4+Cm PqCP0tnon3 MyAwI P5nalk5PL4 EWzIx FQZhAw1EQK ogMzc kMQF6VI23i GxdPj 4RSZ9jk6Ur Cjk0I NDkb0XyBip 8L0Rb MjcgMCBSL1 hZWiA xJpL4EUOti nVsbF 0+PgplbmRv YmoKO TUgMCBvYmo KPDwv RFsyMSAwIF IvWFl qSYKmZuP9W TUgbn VsbF0+Pgpl bmRvY moKOTYgMCB vYmoK PDwvRFsyNy AwIFI iKMeyFMM5O DY1MC BudWxsXT4+ CmVuZ B9qowr3EhT wIG9i yvs3HQ9ZHw IxIDA gHg0QMLrjL zcgNT DhNQ34gHfr Pj4KZ R8wn4JuWew 4IDAg o5JmZtn9H3 RbMjE fWHZDR2mTR iAzNy E6RZWwoaNd bF0+P gplbmRvYmo KOTkg MCBvYmoKPD wvRFs yMSAwIFIvW FlaID WgIFU8Kqsh bnVsb F0+PgplbmR vYmoK MTAwIDAgb2 JqCjw 4X2ZwVjglL CBSL1 tPSiC7BMGc MzA2I P57vIvpBc4 KZW5k b6IbHbVoUO AwIG9 vsiz9IX2KZ zIxID RbWm0FDVhe Mzk0I DYwOSBudWx sXT4+ XvHxWT6wgw oxMDI gMCBvYmoKP DwvRF syMSAwIFIv WFlaI LP7ISYmCGx gbnVs bF0+Pgplbm RvYmo KMTAzIDAgb 2JqCj e1X7OgEkbe MCBSL 1hZWiAzNyA 0ODEg bnVsbF0+Pg plbmR qRtpDEHV9G DAgb2 EuTaa6N1Lb MjcgM UEHB8qOUvQ zNyA2 NTAgbnVsbF 0+Pgp lbmRvYmoKM TA1ID Bsm1LoMik8 L0RbM pirRNSZU1b ZWiAz YbK9Ogxmsi VsbF0 +PgplbmRvY moKMT H5YYRlb7Dd Cjw8L 0RbMjcgMCB SL1hZ WiAzOTQgNT Y2IG5 0tTsnAx1PJ W5kb2 JqCjEwNyAw IG9ia wa6DO3UQkY 3IDAg Gt5QRAgkNj k0IDU 2NiBudWxsX T4+Cm VtKW3mqdgp MDggM CBvYmoKPDw vRFsy NyAwIFIvWF laIDM 3IDYzOSBud WxsXT 4+OoHwDN7b agoxM DkgMCBvYmo KPDwv RFsyMSAwIF IvWFl aVWYrYOL7B jcgbn VsbF0+Pgpl bmRvY moKMTEwIDA gb2Jq Jmz4C7EwWs EgMCB XB7qBKlX5F DMgNT c6AD56fMox Pj4KZ R5ma6CrJtS xMSAw QG1tbgp9FP 9EWzI 9HXKdIp8SR VogMz xbRuizXR06 bGxdP w2HTR3kv4I qCjEx JnAwXW2gvi o8PC9 CLzA1POUkZ i9YWV wsLcd1NSC4 MCBud WxsXT4+CmV uZG9i agoxMTMgMC BvYmo KPDwvRFsyN yAwIF IvWFlaIDM5 NCA1N jYgbnVsbF0 +Pgpl bmRvYmoKMT E0IDA oi2BnGhv4F 0RbMj HqJHHZF3gH WiA0M NJnVEd8EQ0 1bGxd Uf2VVI6zu7 JqCjE kHOWwEV4vr go8PC 9EWzIxIDAg Ui9YW JfmTpz1DWY wOSBu dWxsXT4+Cm VuZG9 iagoxMTYgM CBvYm oKPDwvRFsy NyAwI FIvWFlaIDM 3IDYz OSBudWxsXT 4+CmV tVM8olofpN TcgMC BvYmoKPDwv RFsyM SAwIFIvWFl aIDM2 IDcwOCBudW xsXT4 +SmReDZ8ky goxMT ggMCBvYmoK PDwvR FsyNyAwIFI vWFla EEW2IUK9JR BudWx sXT4+CmVuZ G9iag oxMTkgMCBv YmoKP DwvRFsyMSA wIFIv FWekNDV5AB A2MDk gbnVsbF0+P gplbm RvYmoKMTIw IDAgb 5UpOjl3I8W bMjEg DVCPZ8kABg A0MDM nMRi9MP15k GxdPj 7GKA3yj1Ue CjEyM BMyER8sesq 8PC9E FwV1LVEjMv 9YWVo uWtb9WKO2A iBudW xsXT4+CmVu ZG9ia goxMjIgMCB vYmoK PDwvRFsyNy AwIFI vWFlaIDQxM iAzMD YgbnVsbF0+ Pgplb mRvYmoKMTI zIDAg b6DfKxk8R3 RbMjc tOJHPO1rBG iAzOT OxWRV4UB30 bGxdP l6LLB6ti2O qCjEy DCRbWN2iqr o8PC9 XJbZ4VVKmW i9YWV ogNDEyIDMw NiBud WxsXT4+CmV uZG9i agoxMjUgMC BvYmo KPDwvRFsyN yAwIF IvWFlaIDM5 NCAzN zYgbnVsbF0 +Pgpl bmRvYmoKMT I2IDA ck2GbZdq2O 0RbMj bfLDBYU5lS WiAzO BZwApY0LK5 1bGxd Wy2MWO3vl6 JqCjE zQeEkSS6ax go8PC 9EWzIxIDAg Ui9YW VogMzcgNTA yIG51 qFboMz8MPK 5kb2J qCjEyOCAwI G9iag b8ID1PFrL7 IDAgU q0JDRfbFvt gNjM5 MD42mSnaNr 4KZW5 lx6XgDdQtV SAwIG 2gxse0DW3N WzIxI DNzLe7ECLu gMzcg RbJxJV38tE xdPj4 TWU5cm8YwB jEzMC HdES8qfmo2 PC9EW nD0TGMzKs5 YWVog MzcgNDkxIG 51bGx zCe8KEP1fj 2JqCj ZbKSMlYV1g ago8P G5UMoY1WFF gUi9Y WVogMzcgND UzIG5 4eLkvOr4JJ W5kb2 JqCjEzMiAw IG9ia do4KI0EJnM 3IDAg Kl4XYMrhXj cgNjM 2KQ97cLtiD j4KZW 3lk4LyNxGk MyAwI A7zspc1RT7 EWzI3 UHNmXd5YNQ ogMzc tJuyqJM45m GxdPj 1ASW5fo7Zr CjEzN UVfQG9goqq 8PC9E WzIxIDAgUi 9YWVo pYtmfIeL7I G51bG zoAt0LBZ9k b2JqC jEzNSAwIG9 iago8 VO4NEbYbCK AgUi9 YWVogMzcgM zEyIG 56eUutYd7J ZW5kb 2JqCjEzNiA wIG9i dnv9JC4XLf I3IDA jTz4TLMuvE zcgNj w1QS69rOue Pj4KZ O9xl9EzQjG zNyAw MH2xric9DY 9EWzI 8ZTHbNy5KT VogMz l9AHM4NdAq dWxsX T4+CmVuZG9 iagox MzggMCBvYm oKPDw vRFsyNyAwI FIvWF rkOAA0ASJ8 MSBud WxsXT4+CmV uZG9i agoxMzkgMC BvYmo KPDwvRFsyN yAwIF IvWFlaIDM3 IDY1M CBudWxsXT4 +CmVu AU0xnlxxRS AgMCB vYmoKPDwvR FsyMS AwIFIvWFla IDQwM yR2CVLuveJ sbF0+ PgplbmRvYm oKMTQ lCNMht0QuK jw8L0 RbMjEgMCBS L1hZW pOmMxP9OFy gbnVs bF0+Pgplbm RvYmo KMTQyIDAgb 2JqCj k4E8NsNcKq MCBSL 1hZWiAzNyA 1NDAg bnVsbF0+Pg plbmR vYmoKMTQzI DAgb2 WlObq3T2Lr MjEgM HRPJ1eXLcV zOTQg SgN3SN08dM xdPj4 RUP0pj0VxC jE0NC IeGE1ykkq0 PC9EW zIxIDAgUi9 YWVog UCThFTP1KM BudWx sXT4+CmVuZ G9iag oxNDUgMCBv YmoKP DwvRFsyNyA wIFIv KJorOOU3RH YyNyB udWxsXT4+C mVuZG 4bvyg5ZkNs IG9ia ut5LC2NKC7 lc1so Z5LvGWMtOo RmLTk wNWYtNDRkM y05ZG R4YEBjIKYw YTZmM 0Q2XKzpWCI gMCBS EB1rOPCaVN FhYS0 wODdkLTRhZ jMtYm ZyXw6wPCBa Y2MxN zkyMmEpIDQ 0IDAg LjyxVqR3Lj ZlNTk sZgniSM15B Tk3LW B9TMKpXzDr NDkyZ WNjODQyKSA 0NSAw KVYmK0A1EQ E5MWZ hWLJ1EyVeJ GY2Yi 09FNPoNBA1 ZGUyM zBkNDJmOSk gNDYg CBKFYU77JS VkYWN xEB61RtplX TRlNG PwEROoQD31 MjQ2M dX2TeJmJBL pIDQ3 IDAgUihfYj YwM2J vYxSiHrH4M S00OW QyLThmZTEt NmFjN uLoJVD0MOU jKSA0 OCAwIFIoX2 E4OTh vRCTyBBZ6L 2EtND T1AQ9cQyTr LTBlZ YL0SAF6Lsw yZikg NDkgMCBSKF 82Yjk 0MBYiJN90M GMxLT H4UteySTBm ZC0xN lciEMI9RGE xMTgp IDUwIDAgUi hfZTh vYYD4MCWoS TZlNC 61VwVqCOe3 NTEtZ GFjOTVjNGF mZDA4 VCC0GLNnAF IoXzI zNWRkOTllL TM4MD UoDWGhKZ81 NWZiL RcdBBm0DVM 4YTdl MikgNTIgMC BSKF9 aJBWwKFR6M y1kNT GsSYS0AOil YTNiM p1kCQQvObE yMGEx P5UpYGQdZA AgUih pGXP9HeRxD DItMG OlWO49PUDa LTljZ DAtZmMzNjQ yMjRk KxE9VUX8MA AwIFI zZ3S1SsWwU jRmLT FmNzYtNDJl OS1iN yV4ZDRbLME wZjY3 MOD5GPjuAZ UgMCB KWJ2pAIBaO WY3Yi 1iZjcwLTQw ZmYtY Bo6Od2dPMd wMzMy MzQxMzcpID U2IDA bXgywCSH1N zhmOG WtBlDaQf75 NjQzL WIzNzktNTl lZGQ2 Cme8ILZ2RH A1NyA rBLCtM1AaJ TgxMj P8WNGeI5Lg NDk0M h42NKJtCKY 1Y2I3 MTBlZDYwOC kgNTg mQPNQKX5lX ThlYz YuUH3dNdLl LTQ0Z IVvJSZ2PU7 1MzQx TvP9ZNW0RL kpIDU 5IDAgUihfM 2RkZG ExYzUtYTVl OC00M DcwLWJjZWQ tZGYx KRU2WaO5Ik U3KSA 2MCAwIFIoX 2Q3ZG JiNDVjLWJj NTYtN CKlRH19NEU jLTJm MMY2EGNfTJ IwMyk gNjEgMCBSK F9iMT OmMGq2Ij73 YWUwL TQwODgtOWR iOC00 ZDIyZTBiY2 EwYmQ pIDYyIDAgU ihfZT JiZjAxNGUt NGI4M R94SmJlIMh jMzYt PWJmKQo4Mj ZkYmZ lDHW9ThSnP FIoX2 PgQOX4UQT2 LTA2M ALnDWU7Qp4 4OTI3 CQH8Gme8P6 NjNTc 0YSkgNjQgM CBSKF 3kAIZ6GTY2 Ny1hY zMzLTQyODE tODY0 KY4kCiOxYV JlOGQ 8YoLkWNY4Q DAgUi voQFt1SeQs N2QtZ ZVcOg29WHQ 2LWI2 FIpqPrI3Bc gzMjZ yKFZmYMC7W iAwIF GlQ6T8NSOi MTA3L Pc8AfVqTXZ xMy05 MBvsSAE3Jm E4ZmZ hMjdkYykgN jcgMC LWVK4dGBjr OTU3N a08GSd3TSQ 5YzIt LJEuBq35LE ZmYjU 3ZGIzNzUpI DY4ID AgUihfZGY0 MTZlM tNjQLS3Lk2 0MjJm ZAH5ApWxRE E3YTN iFhNfLKB6S SA2OS AwIFIoXzc5 YzkxM 2FjLWNjZmQ tNDFj XI69BPUsGJ c0Y2U zMmFhMWEzN CkgNz LwRLDGWE2v ZDg1Y qUrIa7mX2C 5LTQ4 YmUtYTgyYS 1jYTk 3NzlmMmVhO TgpID cxIDAgUihf MjkxM VYjO0TbPrR xZi00 GwRuZYV3OV ItZGM 0VUf5CXEvU WMxKS D9LrQdPFJa X2RhZ jBiZDZjLTc 2YjAt RLX4JZ7lRp VlLTg fGfS3VXBcN mUxZS kgNzMgMCBS KF9hM bI7JBW9IC2 mNjEz LTQxNDctOG Q1OC1 wZdFrEMI8S jZiZm LsRFh0DITv UihfN zRlMWFiNzE tYTYx RC29EBT6NZ kwZjk tOTYyNjkxN mQ0OG F5RXR0MZAa IFIoX 2R1N3D7JZR 0LTNh RVOcVSI7IG 05MzY xETUhTFU9G TFjZT hjZSkgNzYg MCBSK Y0kKZLuCEG 4NS0y OGJhLTQwMm ItOGU bAl5lQVOtJ WFmYj RkNGQpIDc3 IDAgU uyhX1EhAFv 4MmIt UpM3Nk71QE NmLWI 4N0LuJOZ8E TY5MT E6CQraCLZ4 OCAwI FIoXzYwOTV kMTY4 EPGvY3TwMO VlMC1 fDuQ1ZDKoN jg2NT Z3MbM4EFot NzkgM JMNCO3uEEA 1Zjk1 Vp32A6V1DF RlZTE mPTPzQz41P jI4Yz Z0RvHoCYLv IDgwI DAgUihfMGN mYTU5 ZDUtZDMyYS 00MjM 4KYG2XpQiZ jdjZj B9CpCxTDI3 KSA4M JNhDWJwC6D 3NDhm BVRcWDG4Me YtNDR uRb36AbK0T ThjZW YlHAFuH7Lt MikgO DIgMCBSKF8 0MDAw GGO7Ct81Ru MwLTR jNDgtYTdlM C01N2 TbYFG1DDtk MTApI DgzIDAgUih fZTIx YmIyODctOD g2Mi0 4R0RzFZg3N TUtZT U9ZSfnFvI1 YzUyK VB3DBBdXXD oXzM2 WrH0P4AkRP IyODM cDPIbJy92W DE3LT DxAVE5YvSg YmFhM CkgODUgMCB SKF80 FuL7Qpq3Ig 1mYTk 1DTW9OJZlJ TUzNS 38EII6RZVb NTM1Z DOvFRk7UJB gUihf WAQ4HTX6Cz QtZTJ rKk84VSVwC WIzMz YtNjhjMWY3 ZmNkZ nWvYDL1PwM wIFIo MwI8QAIeFp gwLWR tAWMyJFH0H y04YT P6USSyQMqc YjJkN ThkMykgODg gMCBS EU50IlZxJa QxMC0 1NjMzLTRhM zQtYj ObZW5bHVR7 MzUwO ON1VeKnSJa 5IDAg DzzpWYP1Gx M2ZTc lYNR6Td51I Tk2LW Y2SPqsHcIl OGM3Z mFlYTdmKSA 5MCAw IFIoXzljNT A5Mzk fPYT0F1QcX GI4Zi 05ZDQxLTBj NjkwN GRkNWViZCk gOTEg HGLTKL82Ba dlZjU sMi43BggjD TQ0ND HdEaZtTK6l ZjkxZ nMmTxO9GLP pIDky IDAgUihfNz UyYjA 5R3CbGRO6I C00M2 OxJKs1Azhe ODgwN XLmHWc7AYD 5KSA5 MyAwIFIoXz A3ZjR aKrS5EKK0R 2QtNG S6ZO03GcQf LWI3O Hx2QaYjFMF 4Yikg OTQgMCBSKF 80ZDA 5GhdlGb2aS jE2LT QzNzgtOWUw NS0zO Iy6VdOdLQQ jZGMp LRe6FFKpCz hfZTR jNzFhMDEtM WYzZS 00NmNkLTll NGQtM WMwNTkyZDg 5NDM5 SIG8TiSoZG IoX2I zMTNmZGMzL WY4Yz OsSOHaEw78 NDVmL RO0TLxjBZZ 0YjBi ZSkgOTcgMC BSKF8 1NDFlNGJlY y03MG ZjLTRhMmQt ODBlN o15YmVqAmq 3ZDBm LxOjVAw6ZD AgUih uLoB8KQM1A zMtNz oxDH83FTBw LTgxY HQgXiXjU1A 0MDhi Bws1LPF7GD AwIFI zIzh8XVM8N GZkLT J7CnAuPEK6 ZS04M SWxIGVyE9L iNWE5 NjUzYikgMT AwIDA gUihfMzVkM Dc4OT nvCkFfAr24 M2NmL ThlNTgtMTY xMzA1 NGMzNTljKS AxMDE lYKQRJN80F TI4NG PdSm74B9Fn LTQwO GMtODhkMC0 xNjFl IGY7JYuzQY ApIDE wMiAwIFIoX zFkND keNfl5SJG2 OWMtN SIrOo8pZMM hLWIw ZePqTdO2EH dlNik gMTAzIDAgU ihfZj JiNDMzYTUt NmJhY B24MJBcZTd 3MzEt NJY5UCR4TO ZjYWU 2KSAxMDQgM CBSKF 2mKvDwSar3 ZC1hZ yd2NAGzNSV tYWU2 Xo34PgN3NL BjMGZ lZDYpIDEwN SAwIF LtV7A1LYKt NzcyL TVkZTctNGU 0Yy1h HGH6NOp6CK E4NjI 4ODMyNykgM TA2ID AgUihfZTVk OWMxY kvlVhX1QW4 0YWVl LWIxNjYtYj IxNzc 6X5G9LvZtO SAxMD jgPSJHLA6k YWQxO VQfNw9cSgM zLTRj QeJrXyS4Bn 00MjA 4OGZhZDJmN mMpID EwOCAwIFIo X2FkY zUzYTRmLTZ lODgt URJ8GN35UF hjLTQ 4YmZjODIzO GZiYS khFYB3YMMo UihfY jFlOTliMTc tNTc5 KL32CmJ2FF JmMGQ gRcRxOAC7O jBmOW ExKSAxMTAg MCBSK R8uXMHfQnA 2Mi01 NzdiLTRjND YtOTM 6PP0gTrFvX zBkYm RkOTQpIDEx MSAwI FIoXzhmMTl jYTRm ILU5JKnfHA I2Ni1 hGUMlUAX2W Dc1NT YqH7IqNLfi MTEyI DAgUihfNzU wMGFj PYfwGmO2QA 00ZTA eFAy4E5JoR WZiYW A9GEXpODNg KSAxM TMgMCBSKF9 jOWE1 ZQH6KG7jPM EwLTR rM7TdDFQhZ C01ND VgGUJ5L0X1 MWQpI DExNCAwIFI oX2U0 OKr7LXddVM I4MWU vGBKoPN01D WI3LT djSCY1MKFg ZWIxZ VnkSWW9KCA gUihf KkjlEUR3Ht YtNTQ 3Lw07Rjb5W Tk5Zm EtNDhiNDJi ZDkyY TJmKSAxMTY gMCBS KX5GRVynGS h5c2l jaWFuIENvb nN1bH QpIDExNyAw IFIoX 8K8ZWMePvW 2LTVj YmUtNDJiZC 1iZjh hMTH6HnFfK 2EyYT kxMikgMTE4 IDAgU ihfNTdjOTR lMzYt XpXrSO70WQ k4LWF hZmItNmIwN WFlOW QzMDAzKSAx MTkgM JMNPF0wAby zNTli Oj19A8MwYV Q1ZjA bARG9Kh0fD 2ZlYj lfFXQ0PGZs IDEyM CAwIFIoXzZ mNjgy SOT6MCLvN7 QtNDd gLj94OFt0B TkxZD IxMTkxYWE4 YykgM TIxIDAgUih fNGMx ZDRjNDUtNz QxMy0 4WCI7MQAfI WItM2 AaIOe0GgWr ZWM0K SAxMjIgMCB SKF84 YjEwYmYyYS 0yZTk kOLF9CAZtH jkzMy 1hOTNkZDNl OWI0M TIpIDEyMyA wIFIo XzZhYTJkNj BmLTQ 1YzctNDkxZ i05Nj gyLWEyOGI3 MThmY zkyOSkgMTI 0IDAg UihfMzJhNW U1ZTk jAzDdCj70I GNhLT ljNmItNzk3 NDVhN zgyZDAzKSA xMjUg YGBIDH2aZx Q0Mzk mEk1mDkZuR TRmYT acXxn5IH02 N2Y1O QYhMDQ8CTI pIDEy NiAwIFIoX2 NlNzd iFQY5CYU5D GEtNG P7SZ0mYKCr LTVlM TFjOWQzMTM wOSkg NNE8ZVYeXn hfYTh mYzAwYWEtZ WY3Yi 06QFX8IUp8 NDctZ VB3Eyv4KcF kNzY2 KSAxMjggMC BSKF8 0ROS9NHEyW C1hZj VmLTQzYTkt YWIxN K95YBJ2EgW kNzZl YjUpIDEyOS AwIFI vRdR1PYn7K DE4LT b8Z3PuNEae ZC05N GRkLWRjMmN lN2Mz MmIzMCkgMT MwIDA gUihfYTYxO WFkOW BbZcCcFE10 MGQ1L WIwNTYtZTU 5MjE1 OGJkMjNhKS AxMzE gDITOPJ38S zhiNz MjQD5iEOYg LTRjZ TYtYmJjNy1 jMTJh ODFkMzNiNG YpIDE zMiAwIFIoX 2E3ZD QwMDIzLWEw MjItN EKxUc59QwA lLWYw SPx7M3Z1Op Y0Yyk gMTMzIDAgU ihfMj T7HoNuNsVi MzM2Y E15RkVnVYl wNjgt KBg2PxN0R2 MyNTA 0KSAxMzQgM CBSKF 18IQT1FBx7 MS04N DhlTXM6HTA tYjFi Ij98ZFXgAP kzNWM 3ZDcpIDEzN SAwIF IoXzQyNjM1 MGY3L WMyOWItNDg 3MS1h Eyt4DLw4J9 IxZjd iODZkNCkgM TM2ID AgUihfNGM3 MTVlN OEdJTI9YY9 0NzA5 TQl7JdMoIB YxODV iIPU7SjO2Z SAxMz ieTTDZCK68 ZDEyZ GZsME52EQX lLTRk RDObJWH9XC 04NjF jMzdlZDRkZ mEpID EzOCAwIFIo Xzg0O GUyNzJiLTc 1N2Mt YLV4EW82LH g2LTh lZTcwNjIyZ DUxOC nmZOR2ELAx UihfZ JL6NWJ5BPQ tMzdm Ce23PMnpOF FiYTk tNWQwYzNiN mQ1YW QxKSAxNDAg MCBSK W98KSMpTlU 3Ni00 MGVkLTQwZW QtYTE 9Nv5vFCRoD jRkZG YyMjcpIDE0 MSAwI HSfTaV2YWP kNDRk LTMwZDQtND E0YS1 iNjgxLTZlZ jEwNj zuNTX8Sawx MTQyI QDkVxqsN2M 3MWFi EVBgW4X0Xe 00NzM 9HZj9BpFxM jEzNm C3R3GuDPQ2 KSAxN DMgMCBSKF8 2N2U3 VEDhIS77HD FhLTQ 5ZjktYTRhO C1mOD Q2K7E2BVTw MzIpI YZ3WDPqYBA oXzEy GrF4TYEcAK E1ODI cTJXfDE56X WMxLT i7AwTyIFXs ZDY0O MexQGH4PGC gUl0+ PgplbmRvYm oKMTY gMCBvYmoKP DwvRG VzfCyEB46A LVBoe OEbO5owpoW Db25z wDi2WU3VsK RsZTx mNBKgZLG9D DAwNj ibSWm2IGB6 MzAwN jkwMDYzMDA 2OTAw NjEwMDZlMD AyMDA wNDMwMDZmM DA2ZT AwNzMwMDc1 MDA2Y zAwNzQ+L1B hcmVu dCAxMiAwIF I+Pgp lbmRvYmoKM TQ2ID Oys3RwYdg5 L01vZ ERhdGUoRDo yMDIw MDUxOTEyMz kyMS0 wNCcwMCcpL 0NyZW B8mU0aJMG0 ZShEO jIwMjAwNTE 5MTIz GDZxQq50Fm AwJyk vUHJvZHVjZ XIoSW JleCBQREYg Q3JlY BYfnoP3Zbo uMC4x UE17HCZ0EQ tKQVZ BXVAvUjsgb W9kaW ZpZWQgdXNp bmcga VRleHQgMi4 xLjcg YnkgMVQzWF QpPj4 LUO4na3CfU nhyZW YKMCAxNDcK MDAwM DAwMDAwMCA 2NTUz NSBmIAowMD AwMDA zOYL9GHHiN DAwIG 4gCjAwMDAw MDAxM DMgMDAwMDA gbiAK MDAwMDAwMD E3OSA wMDAwMCBuI AowMD AwMDAwMzE1 IDAwM TNwPV1dArC wMDAw MDAzOTEgMD AwMDA gbiAKMDAwM DAwMD UyNyAwMDAw MCBuI AowMDAwMDA wNjAz IDAwMDAwIG 4gCjA mKHBzJGE2X zkgMD AwMDAgbiAK MDAwM DAwMDgxNSA wMDAw MCBuIAowMD AwMDA wOTUwIDAwM DAwIG 4gCjAwMDAw Mzk3M zMgMDAwMDA gbiAK MDAwMDAwMT EzMyA wMDAwMCBuI AowMD AwMDAxMDY4 IDAwM SKvZJ5zRcX wMDAw Pir0ZAIfVN AwMDA gbiAKMDAwM DAwOD cxOSAwMDAw MCBuI AowMDAwMDQ 5NTA5 IDAwMDAwIG 4gCjA wMDAwMDExO DcgMD AwMDAgbiAK MDAwM DAwMTIyMiA wMDAw MCBuIAowMD AwMDA zODkxIDAwM DAwIG 4gCjAwMDAw MDQwN zQgMDAwMDA gbiAK MDAwMDAwOD M4MiA wMDAwMCBuI AowMD CwCYX6CVu1 IDAwM GSjLU9rPzU wMDAw NJB9KiesDS AwMDA gbiAKMDAwM DAxMz p9ThMfRGTa MCBuI AowMDAwMDE zNTMy IDAwMDAwIG 4gCjA wQWMcOKc9I DcgMD AwMDAgbiAK MDAwM DAxODMzMyA wMDAw MCBuIAowMD AwMDI 4NzQxIDAwM DAwIG 4gCjAwMDAw Mzc5M DMgMDAwMDA gbiAK MDAwMDAxMz g0MiA wMDAwMCBuI AowMD DsYVL4YAU8 IDAwM NUsBD8kVnV wMDAw OIk8BNzyYY AwMDA gbiAKMDAwM DAxOD L5WMAlDLLj MCBuI AowMDAwMDI 0MjUw IDAwMDAwIG 4gCjA lWDZmCbA4T zMgMD AwMDAgbiAK MDAwM SZsJWF5MxX wMDAw MCBuIAowMD AwMDI 3AYl0BRCsQ DAwIG 4gCjAwMDAw MzM0M TIgMDAwMDA gbiAK MDAwMDAzMz U5NSA wMDAwMCBuI AowMD GjUPX8OHO9 IDAwM YXtWQ1iCxB wMDAw MzgyNDAgMD AwMDA gbiAKMDAwM DA0ND cxMSAwMDAw MCBuI AowMDAwMDM 5NzY3 IDAwMDAwIG 4gCjA xAHJhNur3C TUgMD AwMDAgbiAK MDAwM NFsYLr6AfO wMDAw MCBuIAowMD AwMDM 5OTEwIDAwM DAwIG 4gCjAwMDAw Mzk5N TggMDAwMDA gbiAK XLTpXVD2OD AwNSA wMDAwMCBuI AowMD AwMDQwMDUy IDAwM BQpXV9gFpP wMDAw NDAxMDAgMD AwMDA gbiAKMDAwM DA0MD I1NnOiZKBg MCBuI AowMDAwMDQ wMTk1 IDAwMDAwIG 4gCjA wMDAwNDAyN DIgMD AwMDAgbiAK MDAwM TP1KSM6CPX wMDAw MCBuIAowMD AwMDQ fNzR9YLXdN DAwIG 4gCjAwMDAw NDAzO DQgMDAwMDA gbiAK XYUjBEJ5PS QzMiA wMDAwMCBuI AowMD AwMDQwNDgw IDAwM VYcSW5dAqS wMDAw VBU4RhqqOS AwMDA gbiAKMDAwM DA0MD R0PHXqRVUz MCBuI AowMDAwMDQ wNjIz IDAwMDAwIG 4gCjA dWVHzNKX7O zEgMD AwMDAgbiAK MDAwM BT4OJfhZUH wMDAw MCBuIAowMD AwMDQ qLzP0BTVeW DAwIG 4gCjAwMDAw NDA4M TUgMDAwMDA gbiAK TXWjJLF9RQ g2MyA wMDAwMCBuI AowMD AwMDQwOTEw IDAwM VJoWS0oOvD wMDAw LAN5WKwnAY AwMDA gbiAKMDAwM DA0MT AwNiAwMDAw MCBuI AowMDAwMDQ xMDUz IDAwMDAwIG 4gCjA wMDAwNDExM DEgMD AwMDAgbiAK MDAwM VD7LWP2UEA wMDAw MCBuIAowMD AwMDQ mIDh8YXPlX DAwIG 4gCjAwMDAw NDEyN DMgMDAwMDA gbiAK AFKqEVC8KY I5MSA wMDAwMCBuI AowMD AwMDQxMzM4 IDAwM KMhXK1oMtY wMDAw NDEzODYgMD AwMDA gbiAKMDAwM DA0MT QzNCAwMDAw MCBuI AowMDAwMDQ xNDgy IDAwMDAwIG 4gCjA nFSBjLIC6D zAgMD AwMDAgbiAK MDAwM TZ0MLS2FOY wMDAw MCBuIAowMD AwMDQ xFuA2HMPaQ DAwIG 4gCjAwMDAw NDE2N zMgMDAwMDA gbiAK AJEhZPA6NN cyMCA wMDAwMCBuI AowMD AwMDQxNzY4 IDAwM JCbCQ0rQrF wMDAw CVX7GCTgML AwMDA gbiAKMDAwM DA0MT l2VRNnYSWk MCBuI AowMDAwMDQ xOTEx IDAwMDAwIG 4gCjA pFWLlXCO6L TkgMD AwMDAgbiAK MDAwM SU1WvDiJpH wMDAw MCBuIAowMD AwMDQ yMDUzIDAwM DAwIG 4gCjAwMDAw NDIxM DEgMDAwMDA gbiAK FRPzOGJ5Hd E0OSA wMDAwMCBuI AowMD AwMDQyMTk2 IDAwM WQqKK2dHiR wMDAw NDIyNDMgMD AwMDA gbiAKMDAwM DA0Mj U7HRUaVXCq MCBuI AowMDAwMDQ yMzM4 IDAwMDAwIG 4gCjA wMDAwNDIzO DUgMD AwMDAgbiAK MDAwM YP1PySgGvH wMDAw MCBuIAowMD AwMDQ yNDgwIDAwM DAwIG 4gCjAwMDAw NDI1M jkgMDAwMDA gbiAK QMJvGDX8Cu U3OCA wMDAwMCBuI AowMD AwMDQyNjI3 IDAwM KPpHB5yYrV wMDAw XQC5KyTdVS AwMDA gbiAKMDAwM DA0Mj cyMyAwMDAw MCBuI AowMDAwMDQ yNzcx IDAwMDAwIG 4gCjA rGAAtQGH9R jAgMD AwMDAgbiAK MDAwM EX9Fex7YAR wMDAw MCBuIAowMD AwMDQ qOBQ5TTLwV DAwIG 4gCjAwMDAw NDI5N jYgMDAwMDA gbiAK ZODbVVI0Qd AxNSA wMDAwMCBuI AowMD AwMDQzMDYz IDAwM SNpPS2mSuG wMDAw NDMxMTIgMD AwMDA gbiAKMDAwM DA0Mz G9GWXgIKNo MCBuI AowMDAwMDQ zMjEw IDAwMDAwIG 4gCjA wMDAwNDMyN TkgMD AwMDAgbiAK MDAwM ZD1TfAtMcX wMDAw MCBuIAowMD AwMDQ kTaP9XZPcX DAwIG 4gCjAwMDAw NDM0M DMgMDAwMDA gbiAK ZHLvIKN9St Q1MiA wMDAwMCBuI AowMD AwMDQzNTAx IDAwM QKoRB9pQwT wMDAw VSD2SVLnHI AwMDA gbiAKMDAwM DA0Mz P7UDDfSAOp MCBuI AowMDAwMDQ zNjQ4 IDAwMDAwIG 4gCjA mNNOjGAJ2Q TcgMD AwMDAgbiAK MDAwM VV4Opf8FbL wMDAw MCBuIAowMD AwMDQ kPch6KXLrE DAwIG 4gCjAwMDAw NDM4N DMgMDAwMDA gbiAK APEfNUO7Pb g5MSA wMDAwMCBuI AowMD AwMDQzOTM5 IDAwM UGeNL6mFbX wMDAw EMM0VZkoGL AwMDA gbiAKMDAwM DA0ND AzNSAwMDAw MCBuI AowMDAwMDQ 0MDgz IDAwMDAwIG 4gCjA wMDAwNDQxM zEgMD AwMDAgbiAK MDAwM KV9UZS6MME wMDAw MCBuIAowMD AwMDQ 8LzS8NPArS DAwIG 4gCjAwMDAw NDQyN zUgMDAwMDA gbiAK CYWbVIW3JO MyNCA wMDAwMCBuI AowMD IzWTG9Bvff IDAwM ZOsLD6uXiD wMDAw GVG0CxIsRU AwMDA gbiAKMDAwM DA0ND F1VGJxAKCc MCBuI AowMDAwMDQ 0NTE3 IDAwMDAwIG 4gCjA vPEMbVXZ4M jUgMD AwMDAgbiAK MDAwM VR2IDUrPGG wMDAw MCBuIAowMD AwMDQ 0NjYzIDAwM DAwIG 4gCjAwMDAw NDk2N TMgMDAwMDA gbiAK dHJhaWxlcg o8PC9 QyuMiXNZ9B iAwIF IvSUQgWzxi ZDhmN qDnG6E7Vcq zNWI1 YmExODBkNG VkYzN mQyDyWO14X jEzNz d0ELFaZabx NTA0Z OY3FKRyKME mYjkw EpU6S6Z+XS 9Sb29 0IDEwIDAgU i9TaX whMYE8Uy9+ CnN0Y CB2vNLbWss 0OTgz NAolJUVPRg o= ID Date Data Source [id number] 02/21/2020 06:36:00 AM EDT [facility] Added by Discern Rule GLB_ADD_GFR_CMP Name Value Range Interpretation Code Description Data Mariana rce(s) Supporting Document(s ) eGFR-AA >90 >=60 NO [facility] mL/min/1.[address] [place] [address] The MDRD 4-Variable IDMS traceable Equat ion for non- individuals is used to calculate the estimated glomerul ar filtration rate (GFR). To estimate the GFR for Americans, multiply the [facility] ided GFR result by 1.16. The MDRD 4-Variable IDMS traceable Equation is validated in individuals 18 years of age or older. It is less accurate in patients with extremes of muscle mass, restriction of dietary protein, ingestion of creatine, extra-re nal metabolism of creatinine, or treatment with medications that affect renal tubul ar creatinine secretion.GFR Categories in Chronic Kidney Disease (CKD)GFR Category : GFR (mL/min/1.73 m2): Interpretation: G1 90 or greater Normal or high* G2 60-89 Mild decrease*G3a 45-59 Mild to moderate fxxcxzfeY1t 30-44 Moderate to severe decreaseG4 15-29 Severe decreaseG5 14 or less Kidney failure eGFR-SUDHIR >90 mL/min/1.73m2 >=60 NO [place] [facility] The MDRD 4-Variable IDMS traceable Equat ion for non- individuals is used to calculate the estimated glomerul ar filtration rate (GFR). To estimate the GFR for Americans, [facility] the [facility] result by 1.16. The MDRD 4-Variable IDMS traceable Equation is validated in individuals 18 years of age or older. It is less accurate in patients with extremes of muscle mass, restriction of dietary protein, ingestion of creatine, extra-re nal metabolism of creatinine, or treatment with medications that affect renal tubul ar creatinine secretion.GFR Categories in Chronic Kidney Disease (CKD)GFR Category : GFR (mL/min/1.73 m2): Interpretation: G1 90 or greater Normal or high* G2 60-89 Mild decrease*G3a 45-59 Mild to moderate cftgxpvrG8f 30-44 Moderate to severe decreaseG4 15-29 Severe decreaseG5 14 or less Kidney failure ID Date Data Source [id number] 02/21/2020 06:36:00 AM EDT [facility] Name Value Range Interpretation Description Data Sup porting Code Source(s) Document(s ) Glucose Lvl 126 65-99 [place] mg/dL [facility] BUN 3.1 6.0-20.0 [place] mg/dL [facility] Creatinine 0.53 0.40-1.0 [place] mg/dL 0 [facility] BUN/Creat 5.9 7.0-29.0 [place] Ratio ratio [facility] Sodium Lvl 141 136-145 [place] mmol/L [facility] Potassium Lvl 4.5 3.5-5.1 [place] mmol/L [facility] Chloride 111 98-107 [place] mmol/L [facility] CO2 23 23-29 [place] mmol/L [facility] AGAP 7 5-15 [place] [facility] Calcium Lvl 9.1 8.6-10.0 [place] mg/dL [facility] Total Protein 6.4 6.0-8.3 [place] gm/dL [facility] Albumin Lvl 3.2 3.5-5.0 [place] gm/dL [facility] Glob 3.2 2.0-4.5 [place] gm/dL [facility] A/G Ratio 1.0 1.0-2.2 [place] ratio [facility] Bili Total 0.8 0.3-1.2 [place] mg/dL [facility] Alk Phos 115 IU/L 38-126 NO [facility] AST 16 IU/L 15-41 NO [facility] ALT 16 IU/L 7-40 NO [facility] ID Date Data Source [id number] 02/21/2020 06:34:00 AM EDT [facility] Name Value Range Interpretation Description Data Sup porting Code Source(s) Document(s ) Magnesium 1.7 mg/dL 1.6-2.6 NO [facility] ID Date Data Source [id number] 02/21/2020 06:04:00 AM EDT [facility] Name Value Range Interpretation Description Data Sup porting Code Source(s) Document(s ) Neut Auto 55.1 % 50.0-80.0 NO [facility] Lymph Auto 30.3 % 14.0-44.0 NO [facility] [place] Auto 10.8 % 0.0-12.0 [facility] Eos Auto 3.2 % 0.0-7.0 NO [facility] Baso Auto 0.6 % 0.0-3.0 NO [facility] Neut 3.0 2.0-8.4 NO [place] Absolute x10(3)/[facility] Lymph 1.7 0.6-4.8 NO [place] Absolute x10(3)/[facility] [place] 0.6 0.0-1.1 NO [place] Absolute x10(3)/[facility] Eos Absolute 0.2 0.0-0.5 [place] x10(3)/[facility] Baso 0.0 0.0-0.3 [place] Absolute x10(3)/[facility] ID Date Data Source [id number] 02/21/2020 06:04:00 AM EDT [facility] Name Value Range Interpretation Description Data Sup porting Code Source(s) Document(s ) WBC 5.5 4.0-10.5 [place] x10(3)/[facility] RBC 4.71 3.80-5.20 [place] x10(6)/[facility] Hgb 11.2 11.4-15.1 [place] gm/dL [facility] Hct 35.0 % 36.0-46.0 [facility] MCV 74 fL 80-98 [facility] MCH 23.8 pg 26.0-34.0 [facility] MCHC 32.1 32.0-36.0 [place] gm/dL [facility] RDW 18.8 % 11.0-15.0 [facility] Platelet 301 150-400 [place] x10(3)/[facility] MPV 7.9 fL 8.5-13.0 [facility] ID Date Data Source [id number] 02/23/2020 07:05:00 PM EDT [id number] Patient: MARIELA ROME Age: 69 years Sex: Female : 1950 Associated Diagnoses: Swallowing disor jaelyn Author: Kim LAFLEUR, Daniel Jackson Basic Information Time seen: 02/20/2020, 13:13. History source: Patient. Arrival mode: Private vehicle, walking. History limita tion: None. Additional information: Chief Complaint from Nursing Triage Note : Chi ef Complaint 02/20/2020 13:12 EDT Chief Complaint had endoscopy on 02/02 3 and again today. unable to eat, cannot even tolerate water. saw dr epperson. not ab le to get medications in, only nitropatch (Modified) . History of Present Illness 69 year old female with a medical history of anxiety, asthma, HLD, and HTN presents t o the ED for the evaluation of throat spasms and decreased PO intake. The patient was admitted on 02/14 for dysphagia and being unable to tolerate PO. She had an endosc opy on 02/14 which showed abnormal esophageal motility. She was discharged yesterday b jess Epperson and scheduled for an endoscopy with Botox injection today, wh ich was unsuccessful. She was referred to come back to the ED for further manageme nt as she is still unable to tolerate PO. She reports that she vomits immediately any time she tries to eat or drink. Patient denies fever, chills, chest pain, shortn ess of breath, lightheadedness, abdominal pain, diarrhea, diaphoresis, syncope, ur inary symptoms or any other symptoms at this time. PCP: Clary Grajeda: [employer] Constitutional symptoms: No fever, no chills, no sweats. Skin sympt oms: No jaundice, no rash. Eye symptoms: Vision unchanged. ENMT symptoms: Throat pain, No ear pain, Respiratory symptoms: No shortness of breath, no orthopnea. C ardiovascular symptoms: No chest pain, no palpitations. Gastrointestinal symptoms : Nausea. Genitourinary symptoms: No dysuria, no hematuria. Musculoskeletal symptoms: No back pain, Neurologic symptoms: No headache, no dizziness. Health Status Allergies: Allergic Reactions (Selected)Severity Not DocumentedAmoxici llin- No reactions were documented.Azithromycin ophthalmic- No r eactions were documented.Compazine- No reactions were documented.Cranberry- No reactions were documented.Flu vaccines- Pneumonia.Grapes- No reactions were docu mented.Latex- No reactions were documented.Latex Exam Gloves MISC- No re actions were documented.Lipitor- No reactions were documented.Norvasc- Tachycardia.Ome prazole- No reactions were documented.Penicillin- Rash.Propranolol- Asthma.Shellfish- Rash.Sulfa drugs- Rash.Zithromax- No reactions were docume nted.. Past Medical/ Family/ Social History Medical history: Reviewed as documented in chart. Surgical history: EGD - SN (None) on 02/15/2020 at 69 Years.Comments: 020 14:56 EDT - Perfecto Del Angel RN-populated from documented surgical caseEGD - SN (None) on 12/02/2018 at 68 Years.Comments:12/02/2018 18:54 Kiersten Jones RN-populated from documented surgical casethyroid nodule r emoved.. Family history: CancerMotherFatherBrotherSister. Social history: . Problem list: Active Problems (10)Acid reflux Angina pectoris Anxiety Asthma Chest pain Hyperlipidemia Hypertension Obstructive sleep apnea Pre -operative cardiovascular examination Shortness of breath . Physical Examinat ion Vital Signs Vital Signs 02/20/2020 16:45 EDT Temperature Oral 98. 1 DegF Systolic Blood Pressure 130 mmHg Diastolic Blood Pressure 92 mmHg >HHI Mean Arterial Pressure, Cuff 104 mmHg Heart Rate Monitored 68 bpm Respiratory Rate 18 br/min 02/20/2020 13:17 EDT Temperature Oral 98.1 DegF Systolic Blood Pressure 130 mmHg Diastolic Blood Pressure 86 mmHg Mean Arterial Pressure, Cuff 101 mmHg H eart Rate Monitored 101 bpm HI Respiratory Rate 18 br/min . General: Alert, No acu te distress. Skin: Warm, dry, intact. Head: Normocephalic, atraumatic. Eye: Pupils are equal, round and reactive to light, normal conjunctiva. Ears, nose, mouth and throat: Oral mucosa moist, no pharyngeal erythema or exudate, No uvula r swelling. Cardiovascular: Normal peripheral perfusion. Respiratory: [place] th sounds are equal, Symmetrical chest wall expansion. Gastrointestinal: Non diste nded. Musculoskeletal: No deformity. Neurological: Alert and oriented to per son, place, time, and situation, No focal neurological deficit observed. Psychiat liz: Cooperative, appropriate mood and affect. Medical Decision Making Differ ential Diagnosis: Throat pain, Anxiety, Throat spasms. Rationale: The patient is a 69 year old female that presents to the ED for the evaluation of throat spasms a nd decreased PO intake. Mariela Garciagood was evaluated in the ED on 02/02 05/24 for the symptoms described in the HPI. Patient was evaluated in the context of the global COVID-19 pandemic, which necessitated consideration that the disha ent might be at risk for infection with the SARS-CoV-2 virus that causes COVID-19. I nstitutional protocols and algorithms that pertain to the evaluation of patients at risk for COVID-19 are in a state of rapid change based on information released by multiple regulatory bodies including the CDC and Federal and State Organizations. The se policies and algorithms were followed during the patient's care in the ED, inc luding PPE. O The plan is to order a blood work up and a rapid COVID and reassess t he patient frequently. The patient understands and agrees with the plan of care. . Documents reviewed: Emergency department nurses' notes. Orders Launch Order Profile (Selected) Inpatient OrdersOrdered (In-Lab).Glomerular Filtra tion Rate: APTT: CBC w/ Auto Diff: Comprehensive Metabolic Panel: Different ial, Automated: Magnesium Level: PT/INR: Rapid COV19: . Results review: Lab resu lts : Lab View 02/20/2020 17:01 EDT Rapid COVID-19 Interp Rapid COVID-19 Negativ e COVID Source [employer] Swab 02/20/2020 16:58 EDT WBC 7.1 x10(3)/mcL RBC 5.11 x10(6)/mcL Hgb 12.1 gm/dL Hct 37.8 % MCV 74 fL LOW MCH 23.6 pg LOW MCHC 31.9 gm/dL LOW RDW 19.3 % HI Platelet 315 x10(3)/mcL MPV 7.8 fL LOW Neut Auto 57.9 % Lymph Au to 28.4 % [place] Auto 9.7 % Eos Auto 2.4 % Baso Auto 1.6 % Neut Absolute 4.1 x10 (3)/mcL Lymph Absolute 2.0 x10(3)/mcL [place] Absolute 0.7 x10(3)/mcL Eos Absolute 0. 2 x10(3)/mcL Baso Absolute 0.1 x10(3)/mcL INR 1.3 ratio HI PT 14.6 second(s) HI APTT 39.5 second(s) HI Glucose Lvl 140 mg/dL HI BUN 2.8 mg/dL LOW Creatinin e 0.57 mg/dL eGFR-AA >90 mL/min/1.73m2 eGFR-SUDHIR >90 mL/min/1.73m2 BUN/Creat Ra tara 5.0 ratio LOW Sodium Lvl 138 mmol/L Potassium Lvl 3.3 mmol/L LOW Chloride 107 mmol/L CO2 21 mmol/L LOW AGAP 11 Calcium Lvl 9.5 mg/dL ALT 17 IU/L AST 18 IU/L Alk Phos 124 IU/L Total Protein 7.0 gm/dL Albumin Lvl 3.6 gm/dL Glob 3.4 g m/dL A/G Ratio 1.1 ratio Bili Total 0.9 mg/dL Magnesium 1.6 mg/dL . Reexaminat ion/ Reevaluation Time: 02/20/2020 18:09:00 . Vital signs Basic Oxygen Information 02/02 16:45 EDT SpO2 100 % 02/20/2020 13:17 EDT SpO2 99 % 02/19/2020 15:48 EDT SpO2 9 9 % 02/19/2020 7:49 EDT SpO2 100 % 02/19/2020 0:07 EDT SpO2 98 % Notes: Patient was r eassessed. I discussed the ED course, lab results, and diagnosis of dysphagia with patient. I conveyed that, given the aforementioned, patient would likely req uire admission/observation in the hospital for further care. Time was given to answ er questions and address concerns. She voiced understanding and was agreeable to plan of care and admission/observation.. Impression and Plan Diagnosis Swallowing disorder - [id number] R13.10, Discharge Calls-Consults - 02/20/2020 17:35:00 , Yesenia miner MD, CHING Deutsch, phone call, consult, Discussed patient and patient's conditio n. He requested the patient is admitted to medicine for hydration. He will likely d o an EGD tomorrow.. - 02/20/2020 18:00:00 , Torrie LAFLEUR, Nathalia Wren, Hospitalist, ph one call, consult, Discussed patient and patient's condition including their hist ory, presentation, and ED course. Discussed plan for patient to remain in the hospit al. Agrees to take patient into their care.. Plan Condition: Stable. Disposition: Ad reynaldo time 02/20/2020 18:09:00, Nathalia Brownlee MD Counseled: Patient, Juanin g diagnosis, Regarding treatment plan, Patient indicated understanding of instr uctions. Addendum Attestation: Scribe Attestation: Daina Love, 02/20/2020 17: 16:00, Scribing for and in the presence of,, Daniel Alvarez MD, Provider Attestati on: I personally performed the services described in the documentation, reviewed and edited the documentation which was dictated to the scribe in my presence an d it accurately records my words and actions., Daniel Alvarez MD02/20/2020 14:12:36 Comment by: Laurence Witt pt gave verbal consent Laurence Witt[address] [id number] Memorial [id number] DONEcons doneR13.10Dysphagia, unspecifie d0.000.00Electronically signed by Daniel Alvarez MD 02/21/2020 00:31 EDTElectronically signed by Daina Love 02/20/2020 18:27 EDTElectronically signed by Daina Love 02/23/2020 19:05 EDT Name Value Range Interpretation Code Description Data Mariana rce(s) Supporting Document(s ) ID Date Data Source [id number] 02/20/2020 06:01:00 PM EDT [facility] Name Value Range Interpretation Code Description Data Mariana rce(s) Supporting Document(s ) Rapid Negative [facility] COVID-19 [facility] ID NOW COVID-19 assay performed on the [employer] ID NOW Instrument is a rapid molecular in vitro diagnostic test utilizing an is othermal nucleic acid amplification technology intended for the qualitative detection of nucleic acid from the SARS-CoV-2 viral RNA. CD:[id number] [facility] CD:[id number] [facility] GLB_RAPID_COV_SOURCE ID Date Data Source [id number] 02/20/2020 05:37:00 PM EDT [facility] Name Value Range Interpretation Code Description Data Mariana rce(s) Supporting Document(s ) APTT 39.5 27.4-38.2 [facility]() [facility] ID Date Data Source [id number] 02/20/2020 05:37:00 PM EDT [facility] Name Value Range Interpretation Code Description Data Mariana rce(s) Supporting Document(s ) INR 1.3 ratio 0.9-1.2 [facility] Indications INRProphylaxis of venous thromo-embolism: Non-hip surgery..... ..........................1.5 - 2.5 Hip surgery................................. ..2.0 - 3.0Deep Vein Thrombosis or Pulmonary Embolism........2.0 - 3.0Prevention of s ystemic embolism in valvular heart disease, tissue prosthetic heart valvesor acute NM.......................................2.0 - 3.5Prevention of embolism in mechanical heartvalves or recurrent systemic embolism.............3.0 - 4.5 PT 14.6 second(s) 10.2-12.9 HI [facility] ID Date Data Source [id number] 02/20/2020 05:30:00 PM EDT [facility] Name Value Range Interpretation Description Data Sup porting Code Source(s) Document(s ) Magnesium 1.6 mg/dL 1.6-2.6 NO [facility] ID Date Data Source [id number] 02/20/2020 05:30:00 PM EDT [facility] Name Value Range Interpretation Description Data Sup porting Code Source(s) Document(s ) Glucose Lvl 140 65-99 [place] mg/dL [facility] BUN 2.8 6.0-20.0 LO [place] mg/dL [facility] Creatinine 0.57 0.40-1.0 [place] mg/dL 0 [facility] BUN/Creat 5.0 7.0-29.0 [place] Ratio ratio [facility] Sodium Lvl 138 136-145 [place] mmol/L [facility] Potassium Lvl 3.3 3.5-5.1 [place] mmol/L [facility] Chloride 107 98-107 [place] mmol/L [facility] CO2 21 23-29 [place] mmol/L [facility] AGAP 11 5-15 NO [facility] Calcium Lvl 9.5 8.6-10.0 [place] mg/dL [facility] Total Protein 7.0 6.0-8.3 [place] gm/dL [facility] Albumin Lvl 3.6 3.5-5.0 [place] gm/dL [facility] Glob 3.4 2.0-4.5 [place] gm/dL [facility] A/G Ratio 1.1 1.0-2.2 NO [place] ratio [facility] Bili Total 0.9 0.3-1.2 [place] mg/dL [facility] Alk Phos 124 IU/L 38-126 NO [facility] AST 18 IU/L 15-41 NO [facility] ALT 17 IU/L 7-40 NO [facility] ID Date Data Source [id number] 02/20/2020 05:25:00 PM EDT [facility] Name Value Range Interpretation Description Data Sup porting Code Source(s) Document(s ) Neut Auto 57.9 % 50.0-80.0 NO [facility] Lymph Auto 28.4 % 14.0-44.0 NO [facility] [place] Auto 9.7 % 0.0-12.0 NO [facility] Eos Auto 2.4 % 0.0-7.0 NO [facility] Baso Auto 1.6 % 0.0-3.0 NO [facility] Neut 4.1 2.0-8.4 [place] Absolute x10(3)/[facility] Lymph 2.0 0.6-4.8 [place] Absolute x10(3)/[facility] [place] 0.7 0.0-1.1 NO [place] Absolute x10(3)/[facility] Eos Absolute 0.2 0.0-0.5 [place] x10(3)/[facility] Baso 0.1 0.0-0.3 [place] Absolute x10(3)/[facility] ID Date Data Source [id number] 02/20/2020 05:25:00 PM EDT [facility] Tech was advised by RN to wait until pt gets a room and a line for blood work02/20/2020 14:42:49 EDT [facility] Name Value Range Interpretation Description Data Sup porting Code Source(s) Document(s ) WBC 7.1 4.0-10.5 [place] x10(3)/[facility] RBC 5.11 3.80-5.20 [place] x10(6)/[facility] Hgb 12.1 11.4-15.1 [place] gm/dL [facility] Hct 37.8 % 36.0-46.0 NO [facility] MCV 74 fL 80-98 [facility] MCH 23.6 pg 26.0-34.0 [facility] MCHC 31.9 32.0-36.0 [place] gm/dL [facility] RDW 19.3 % 11.0-15.0 [facility] Platelet 315 150-400 [place] x10(3)/[facility] MPV 7.8 fL 8.5-13.0 [facility] ID Date Data Source [id number] 02/20/2020 05:22:00 PM EDT [facility] Added by Discern Rule GLB_ADD_GFR_CMP Name Value Range Interpretation Code Description Data Mariana rce(s) Supporting Document(s ) eGFR-AA >90 >=60 NO [facility] mL/min/1.[address] The MDRD 4-Variable IDMS traceable Equat ion for non- individuals is used to calculate the estimated glomerul ar filtration rate (GFR). To estimate the GFR for Americans, multiply the prov ided GFR result by 1.16. The MDRD 4-Variable IDMS traceable Equation is validated in individuals 18 years of age or older. It is less accurate in patients with extremes of muscle mass, restriction of dietary protein, ingestion of creatine, extra-re nal metabolism of creatinine, or treatment with medications that affect renal tubul ar creatinine secretion.GFR Categories in Chronic Kidney Disease (CKD)GFR Category : GFR (mL/min/1.73 m2): Interpretation: G1 90 or greater Normal or high* G2 60-89 Mild decrease*G3a 45-59 Mild to moderate agbchnatG3a 30-44 Moderate to severe decreaseG4 15-29 Severe decreaseG5 14 or less Kidney failure eGFR-SUDHIR >90 mL/min/1.73m2 >=60 NO [facility] The MDRD 4-Variable IDMS traceable Equat ion for non- individuals is used to calculate the estimated glomerul ar filtration rate (GFR). To estimate the GFR for Americans, multiply the prov ided GFR result by 1.16. The MDRD 4-Variable IDMS traceable Equation is validated in individuals 18 years of age or older. It is less accurate in patients with extremes of muscle mass, restriction of dietary protein, ingestion of creatine, extra-re nal metabolism of creatinine, or treatment with medications that affect renal tubul ar creatinine secretion.GFR Categories in Chronic Kidney Disease (CKD)GFR Category : GFR (mL/min/1.73 m2): Interpretation: G1 90 or greater Normal or high* G2 60-89 Mild decrease*G3a 45-59 Mild to moderate [id number] 30-44 Moderate to severe decreaseG4 15-29 Severe decreaseG5 14 or less Kidney failure ID Date Data Source {[id number] 02/20/2020 01:19:00 PM EDT [id number]: MARIELA ROME Age: 69 years Sex: Female : 1950 Associated Diagnoses: None Author: Luis Parrish PA-C Basic Information Vital Signs Vital Signs 02/20/2020 13:17 EDT Temperature Oral 98.1 DegF Systolic Blood Pressure 130 mmHg Diasto lic Blood Pressure 86 mmHg Mean Arterial Pressure, Cuff 101 mmHg Heart Rate Alicia tored 101 bpm HI Respiratory Rate 18 br/min 02/19/2020 15:48 EDT Temperature Oral 98. 3 DegF Systolic Blood Pressure 109 mmHg Diastolic Blood Pressure 74 mmHg Mean A rterial Pressure, Cuff 85 mmHg Blood Pressure Site Right arm Heart Rate Alicia tored 95 bpm Respiratory Rate 18 br/min 02/19/2020 7:49 EDT Temperature Oral 98.5 DegF Systolic Blood Pressure 149 mmHg HI Diastolic Blood Pressure 92 mmHg >HHI Mean Arterial Pressure, Cuff 111 mmHg Heart Rate Monitored 92 bpm Respiratory Rate 20 br/min 02/19/2020 0:07 EDT Temperature Oral 97.9 DegF Systolic Blood Pressure 104 m mHg Diastolic Blood Pressure 67 mmHg Mean Arterial Pressure, Cuff 80 mmHg Blood P ressure Site Right arm Heart Rate Monitored 92 bpm Respiratory Rate 16 br/min . Elvia surements 02/20/2020 13:12 EDT Clinical Weight 59 kg Body Mass Index Measured 24.56 kg /m2 Body Mass Index Measured 24.56 kg/m2 Height/Length Measured 155 cm . Basic Ox ygen Information 02/20/2020 13:17 EDT SpO2 99 % 02/19/2020 15:48 EDT SpO2 99 % 0 7:49 EDT SpO2 100 % 02/19/2020 0:07 EDT SpO2 98 % . History of Present Illness Chief Complaint PT had endoscopy recently, and still having difficulty swallowing. La unch Order Profile (Selected) Inpatient OrdersOrderedED Consult to Utilization M anagement: ED PIT Process Initiated: Prior Admission in Last 30 Days: Ordered (Disp atched)APTT: CBC w/ Auto Diff: Comprehensive Metabolic Panel: Magnesium Level: PT/INR : Future (On Hold)Complete PFT.: Follow Up Lab: [facility] Digital Diagnostic Bilateral W C AD: [facility] Digital Screen Bilateral W CAD: Routine Exercise Treadmill: US Breast Co mplete OSVALDO: US Breast Complete OSVALDO: XR Chest (CXR) 2 Views: . Physical Examination General: Alert, general appearrance in no acute distress, Not ill-appearing, Skin : Intact, no rash. Neurological: No focal neurological deficit observed, normal mo tor observed, normal speech observed. Focused Exam: non labored breathing.Elec tronically signed by Luis Dodge PA-C 02/20/2020 13:19 EDT Name Value Range Interpretation Code Description Data Mariana rce(s) Supporting Document(s ) ID Date Data Source [id number] 02/19/2020 04:40:00 PM EDT [facility] Name Value Range Interpretation Code Description Data Supporting Source(s) Document(s ) [facility] TRCVXh0gNk QKJeL [facility] - ow0TCAUPnW G9iag [place] k0LC8IiHV8 eXBlL [place] 3F7uCNeE0I 5cGUv Medical Cp1wyI0JRZ NlRm9 [place] exJ9IRTz1H XRpY2 YqIB2cf8Uz bmcvV 4jxXE7mmLU uY29k wO5uMw5WIQ 5kb2J qCjIgMCBvY moKPD wvRmlsdGVy L0ZsY JAqOVFsm6Y lL0xl onm4fRAxBW 4+c3R yZWFtCnicK +QCAA OgCAlSGE8i c3RyZ WFtCmVuZG9 iagoz AUJxf4JzCk w8L0Z yaTXfid5Hy GF0ZU HqA68lFL2K ZW5nd GggNzA+PnN 0cmVh lRn9wSEY8B rk0o/ INFQwNFAIS eNyCu EyVDAAQkMF I1MLP XNTBQtDPQs jhZBc Il2PqFPQHB OF/DQ NQ84SQA3OK K5ALg O4wk6IQuMf ZHN0c mVhbQplbmR vYmoK CNBjGM4sur o8PC9 DvIx1DAWtA mxhdG VEZWNvZGUv TGVuZ 2ExKQHyLp9 zdHJl OS6KoPxn7J IAAO4 AfAplbmRzd HJlYW 1NFP2oa3Fj CjUgM CBvYmoKPDw vRmls fZPtS0CsXO RlRGV en8IqE3cbw md0aC A2OT4+c3Ry ZWFtC nicUwjkKuT Sj8g0 BRJ5KDcY21 IK4TJ UMABCQwUjU ws9c1 XDJ7P7AoLE kFwuj KGE3SVtiG1 agolm SBaXawhXIB cAtFA N0QirwoQen HJlYW 8QBM4ps9Nz CjYgM CBvYmoKPDw vRmls kRDvG8ZkML RlRGV gz1OjX8vdp md0aC AxMD4+c3Ry ZWFtC Sakina+QCAAD uAHwK UV7fo2UhOZ FtCmV dAG3pndv0O DAgb2 KlWpn1K9Yt bHRlc d6NeAP2LUD lY29k BZ1GHW8qsB ggNzA +JtS2buJmw Qp4nF SK3Jux4w/I NFYwN FAISeNyCuE yVDAA TfIHS9FBPJ NTBQt DPQsjhZBcL o2AxP RUBROF/DQF E82QL L0CKL0BLcM 1JQ3X PpWmOFQ7he VhbQp lbmRvYmoKO CAwIG 4uedd9LI2U aWx0Z XIvRmxhdGV EZWNv ZGUvTGVuZ3 RoIDE cGb6tgXZwW W0KeJ ud0SXDCX5U fAplb mRzdHJlYW0 KZW5k j5FbOltnJY BvYmo KPDwvRmlsd GVyL0 ZsYXRlRGVj b2RlL 9uioca2bBP 3MD4+ b7IqCWDzWt icUwj yKhHEj6b5D jA0UA nX35MC8XAK MABCQ gWyOmu5r8W FC0M9 CyOFkFwujY DE9FQ SE8L4HBYGq ZAsLt cQrkAuALTe DdUKZ S3oq6MlGCB tCmVu SN3gxcaiVX AwIG9 smdz9CE0ZJ WdlTW 5xAL7Hb8BV b25lL 05hbWVzIDE xIDAg Bk8MwNCdB2 NhdGF ab5poK3G6p GluZX MgMTIgMCBS L1BhZ 2VzIDEzIDA gUi9W fAK4CESCsr VmZXJ lbmNlcyAxN CAwIF I+PgplbmRv YmoKM TMgMCBvYmo KPDwv H5grg0bfFQ AwIFJ qF6Y8sPMnE GFnZX HpI722bhMo NC9JV FhUKDIuMS4 3KT4+ RcQcJO5lrz oxMiA sJP6lgpd2W C9Db3 JkdHIqY5Ee cnN0I ZA2RKYnCx7 MYXN0 SYD4IDKwNf 4+CmV sMB3yjhxgX yAwIG 9rzmrcA0rU Q0Jhc 8PgCAB1QJA gUl0K TW0nh7PaBh E4IDA ja2XrDma5R 0ZpbH Hacv7YuXQ6 ZURlY 46yIN7NSH5 ndGgg IeY2Ek6ISA M+PnN 3cdVovNc8d J2Wd1 TF2JhHb312 vVCSE RdI5FxwDzU IDb1I nB3pOToSJn CQACI 2RFRwRFGRp ggyKO ZEb9LBwKYF hQFRs esEGUTUcXA UG5ZJ JL5I40s842 2b3x/ 3fmufvc/dZ +991r oAkPyDBcJM WAmAD KFYFOHnxYi Ni2dg CqZT3OJSxL DgcLO gTdz5YnGLU nzYjG yZE/gXvboO IPn7K tM/jMEA/5+ UuVki XVGHfJds7b jZXBk IuDw4G6giq 0/JmL F5Ez2bNs4a WYIyV mDe2enscZd ZZQ85 9qNMFBgDm9 7iZfD t6SkmqEqVr oyRYB tI6kw2zFQ+ JmODd TbSMXZn7MS ZfE42 SAdX0X8xf5 NkbC1 tslfgbi2ld QDgSM no0SFfHXrM E8sPx u6XBn2DBLp IGSZc E3yEyeGS0n /PTee LxcwwDjeNI +Ix2J kZWRzhcgBm z/xZF VbjQdXsH2c 4OTgw yZ8cofmBk1 38m5L 3dpZehH/uG UQf+M M9Y51AKIRd pmW12 fqHbWkVAF3 rAVC7 /FbQIS0Hay K+dQ5 8uQ80pL8Vr OIsZy uj0BstZpTz aykv6 O/6nw5/Q19 8z1K+ 3e/lYXjzkz iSdDF DXjduZnqmR MTIzu Jw+Wjpj9b5 Hwf+d S3XNcnonqw vlEVE f5YQYWaUwD vIE4g FmUKGQPifm vgPw/ 7v2vwLucu3 EdCWW AKlIRpAfh4 AKCoR JVh0IOyR16 0Lxkc D+g5Q1NbTx fvPgv 59V7hM/sgW JH+OY 7jOKqjPBg2 smvxa AjQgAEVAA+ pAG+g YA4UPavERw AAP4A MCQSiIBHFg MeCCF JABRCAXFIC 1oBiU zl0sT2zGpc ARNIM 0sXs2tCSwM DgHLo HLYATcAVIw Dp6AK fAKzEAQhIX IEBVS a8TnS5ulfx VYkBv kAwVDEVAcl AglQ0 QXUbNZ33RS qByqh ziaYxwn5Tg 0GroA UXD9bXSxOu oVegc jMAmmwVqwE WwFs2 BPOAiOhBfB yfAyO U5bdrgRlIK DfBDu hE/Dl+ARWA o/gac RgBAROqKLM BEWwk ZCkXgkCREh q5ASp AJpQNqQHqQ fuYpI kafIWxQGRU UxUEy TD2usZPBef pahVq L4g9hEC3Bs qD7UV iLghwl1SG3 Ga6LN 9x4oCBTmQm mdiy5 EJ3Gy1N3fr +gR9D l3PGaJqDQI MY4Yf 0wcJhWzArM ZsxvT jjmFGcaMYa axWKw 91unsrj9Gr rBibD C5QdiLbeY3 BTuOf MMw9wPugqi fXDxO iCvEVeBacC dwV3A LdTa8Jb3U3 4wPxf Pwy/Fl+EZ8 D34IP 46fISgTjAm uhEhC KmEtoZLQRj hLuEt 5FUKG4OlWl HCigL cOSYs3ILvF HCW+J DDIAwT6PYP kIW0h 4EsmEj0loQ CTyUZ fG0P9HAtxI m4mny WcX18DtRyK KgQo8 QIFD2WzyPl cUXim tZt5DCVLZF yYr1i heERxSPGpE l7JSI mtxFFapVSj dFTph iV3PzMKSjy UOUN5 n4UT6yRqHa QsxYj iQ+YYcyb0W GcoY1 TFdi6lG0iV ddRG6 nqsPA3CZ1P F0FJp kmXjuEO4LE WKip1 VwUwePe6Ba RUpHa By4DOt5dGz +mH6d gq5MI8GM1X +6ibV NtUrqq/V5q h5qPH RNkXk4HoK7 qkz1H 5O27I3zFnj 39NAa ZhphGvkauz ROKvx yB9bbqvp3l ySOYf g6XrLLi29G zRXaO 2YWZIu6cWP 8tPK0 zkPNpF9ARl u7aGd qr1D+4T2pA 5Vx01 OqMEN49YMA 4YKw5 CCvvhs3ZYj dDV1/ SAifsF2h7l zesZ6 RMsXdd396/ QJ+iz 9JP0d+r36U wY6Bi EGBQatBrcN 8YYsw uASYAn7dk+ NjI1i wQGIpLv4Kk YzDjD RC824kqdWM nE3WW bSYHLNFGPK Mk0z3 Q620Vi1qbm LMasx AjOUyI0HZo a7zYc q2YVSSsGCZ osbTB EEw1wOdEDS WtItg b7BOnmxz1l ZWMVb bbPqt/pobW +dbt1 ofceGYhNoU 2jTY/ DfvFco42bS 9tpc8 lzfuavnds9 9bmdu d4ceU2aRhs ofYr/ Bvtf+g4Ojg 8ihzW KF8cOo5oAD 8QaLx mrqcBctk0Q 7eTmt sfkb4EjUlB nsfNj 0QiqsI9kNg 8ujec bz+AJr9723 6rlyX WxeeL0Sr7E 3vW5S h863ouoM+w MPfQ+ uV7GFlHpcO 6rnQc 6sVaUeXx5A r9dsZ /YO0nsfpIc Pu8R7 0IfiE+VT7X PfV88 16edAc7nY1 m+F3y l/tH+Q/zb/ GwFaA kwK5uCfLQv AlYF9 QaSgBUHVQQ +CzYJ JjU7xvJbhc PaQu/ YY9unet6HS 0IDQ7 zJ7hvaOubP 9H44J IckqHT3GPR NRENG /gLpgyYKWB a8ivS ZCOb2DxDZD onqjF aGQvwlbX4x 4x5TH SGOtYlfGXo rTiBP Rwmvf68Xah +KnF/ ew3CwpNGZ+ oTjh+ iLjRXmLLiz WWJy+ +PgSxSWcJU cS0Yk yaZ8J6ulkv AbO9N SPzsCMo1qh 7i7uE 54Hbwdvku/ KL+dP AUcfgMs1Aq ZN3p4 8meKeUpHyV MAWVA uep/qn1qW+ TgtN2 5/7PL2vsR5 Dl5GY cVRIEaYJ+z K1M/M oo0HCz1zfm Mucl+ 1cNiUKEjVl Q9mLs mhVEVbM1AQ ERLJe BsyybcLT3t Y3Ovd SihSmMD5al dnyTc ti1h1wu81L WsFd0 LerK1U9PXG l58r6 XcMyihv5W+ uvLlo 0ncIzfKT3s LVpa3 1zjF4vD8s9 LmZdT 4OT6DvlfnF +61uL UAdZnPd1zQ yo24j bBEy7uCuup qpNH0 h7IQyKdJrb St9v5 m6++JXNV5V ffdqS tGWwzKFsz1 bMVuH Q57dcht9wD y7PLx /lJiK0faza R8mOl vyT7BnCTUk Rt4uw A0GQAkcg1X 1lULW 56u97NsGPc VdNe6 0w4dwd12v2 u6/s8 yhLDfxPA8e 3bq9g 7816v/rOBq OGin2 GxJf3SfTGJ /Z/zf y0oJoulsRe w37hf yxNnJE0iP5 NzS2a LWWtcKukdf JgwsH L33h/093Gb Ktvp7 eXHgKHJIce f5v47 jLDUFv8b7A OtH1n +Q6lH4QzbZ PqXN4 28ZONYa3J2 x4+Gn l9z3vdd+N7 y+/3H 2C6UaRp1Sa ZCcKJ ohOfTuafnD 6Vder e9sDRQ59Rp u+ciT 1zrS+8b/Bs 0Nnz5 5gRrva24V7 53vX8 uGrEL18yVC 3suuR wqXPAfqDjB /sfOg YdBjuHHIe6 Lztd7 gabT0hdlnn V01e9 q546IqTt0f j8keH aKcvy4md3T b3Ju/ wgYdia27th bs/cW XMXfbfkntK 9ivua 9xt+NP2xXe ogPT7 qPTrwYMGDO 2PcsS c/Zf/0frzo Iflhx CTZFNKz75x HJn0n Lz9e+Hj8Sd aTmaf FPyv/XPvM5 Nl3v3 e5GhEISyV+ XPT80 6+bX6i/2P/ S7mXv dNj0/VcZr2 Zel7x Mr0FaRzpj/ 7uYdx Mzue+x7ys/ mH7o+ Pc33s2rfJ+ ffgP3 cXY1TcBfVV N0cmV hbQplbmRvY moKMT kgMCBvYmoK PDwvQ 72pa1KDwBD jZS9E WEZaY6DJfl F5L0h laWdodCAyO S9TdW B3kAJqI4bh YWdlL 7PayWDzjx3 GbGF0 KLCuI32sZN 9UeXB eN4dTBxokH 3QvV2 lkdGggMTgy L0xlb ph3bCBuUU9 CaXRz ENZpT06ipE 9uZW5 0IDg+PnN0c mVhbQ j1kG3MUTVX AADCo K1rTglkeII AAAAA Mgv2W2nMFq VuZHN 0cmVhbQplb mRvYm oKMjAgMCBv YmoKP EhvK36rq1F TcGFj ZVsvSUNDQm FzZWQ gMTggMCBSX S9TdW J2aRVcB3kz YWdlL 0hlaWdodCA yOS9G bWv5FWPdHz xhdGV EZWNvZGUvV HlwZS 6OE2UhHVA1 L0RlY 72kHVHqpr2 zPDwv S81leT4kqa AxODI oA97ol9RtL DMvUH GxBXpqyO8k IDE1L 0JpdHNQZXJ Db21w r58xazJdGV 4+L1d zCYNdUIE6R i9TTW FzayAxOSAw IFIvQ xa5e0TxzrS vbXBv mdHzlIV8D9 ludGV keD5zVTAuS HRydW WbPDAdW9Vj IDQwN DU+MxU1ctM hbQp4 3i3lIADXU6 bHb+I kcybRuEZZG pq1ZX MEZN1T13GQ QoyKK 5rROBpiNBG NAhoC MvEO73TW+8 KqgIA 2guyLgAKyG cMmAW VREVBRQUBA lEVgq rqRpemGRtE vfsd3 3uYm39xdUd 361b3 /e+sJPW/M0 UUPyv kJE3tNjks7 tVjF5 BQK2yzgjs/ Xb9fF pFeEJlfEZ1 fce/i o5//LAdrrA vRNgz 81C/vsB3wu MQvTN c33dGkSX2+ zvkaR M5xJbG6Xx0 SI2kS oDdtaS0X7D dhxLP 7R15KzfDgj uOMkK SDJypWJ5dq uziy4 rw8XIHGohs YTFOk vmL4r6g+Gp serD4 bDpKMwzXnO toA1l gSrXn4pAdz QdNnq EIPIfuMRyS 2tZQt dLV8Upvi6c tPYwr ysK/cGNmps eZqaV 2Nu7uteE3W fDyTu 5GGhDwnaH3 saXnX /8fabh9ulb KlUMP QCQ0/QZI/q 9l3kB PUjlU6X8bt BkTnm rDs6f4IWY9 hCJp/ FgPxkh6JgR CaDEj kgPv/NRkT8 l5lTH UckOXp1c3y 4XGtd Wz9vRYnnpx uvs5e HiE4Rcejsk 0PkQu 51WT9N/poP sz3GH ORKB7GMqKY lampu ycUHSP6OUM BgOs3 V//j1RFitD uxFhH reMPY51QHS 5g1zv /bGAJjlASr 09o72 57p88q0SpR AgC5E b0cn8KzlGo tdWkI 4839giYu+b hvnQ4 Ji3zP4SjEc uYNAR oKCTUVjx1+ fDzCn q4EgU2Zt6+ uWLEa K29u7tBM03 QpglA GX66+/9sl1 RoMeT isgKiwiYRr bh/yH wTv6ZbNbOm Bkid2 vrQYEMczxh wcjaC IwWxK3NEp3 /cT7M aQkwlbLdPv UlETn 7i1ZFk3lTG 2Tl/h hQYyEnccxH Zs/ZQ oQIewwRMdw aBPrI lHC6t9XHgB zVPgF WlVTO2LAa/ 7J87K DdnFp34twi 5/RXi 7zoQ5nO5gJ BBhUm WsMUeyXjE7 7Rwz3 QWpCOsidQc oGpZN RkB90Iqz9e lh8RI /MImOGOpeg sgeHW sP3uWT+R09 G53SE 1LrNqGERKb j1Yvu 570ZPV6IMS dSIu8 9z29tvY/gS UXPFL MHQChC7TGq fabZS NUSth8iURm xOUWD McBPqt4bjk KK2+b 9yd1CPkQtI X2sZm 97ZNWKsI7+ 1gkv0 LGoeR1RZrn r2j7T 07UJOZhs1d YMJhM GB+tTfclb t8moh7I22L hmC0j gkHq9fJXJp zimha gnYIeQ5wkM wgTnD 5exr1U+EF3 o/PTH EJjopmziOb RxQnY fBwF4oZvbv Lz4rO u/Qg9TKs8n tqnkS 4AH1aFNjJX 8lXmc zVMqnz2yxI VWuP5 N5xmEDre36 qeY04 d7jdDl094l djxWZ 2HiMVBkYPe D3ogk oeTfT4KRUp Qo/jk 4oG4nNFu7l Tcp0H LBGRmBXinK AXOvV IxeUFS5I3y z4GOa JLGE8rnyab kfLhO AEgOpXRtu1 tAH2n ikwxRnmOmW VlDx3 M5qapVNELE o6ekY tHtz6vMHCj A6x2S Uia+k5l0Hd XeUJD qJ/E18tkYu P0Xtc LxCMP7U2YF sCNrw u90UlU4kb2 46Zoj C9vHUzkron 3gS14 kmvqDKXrYn ZODFm GdExP9JOzq F52fd T6EH3p3B9I sD5A8 44E6ykJFAB sfJN2 +IZUPPCx1j hXnuo RG5gDpXcgP iIbtq a37cXiMz/C k4yzn fxr+E4+qAL m+Lrb xlIdVV/ljm a3FYw jw6L31CpLj OaD7w vc9cWBcY02 DphqI Y/pXEPcyXR GQXJQ mU3MDTWzme PxQNa pyPvhAMolM fjZfj E3Bxuh2gT4 Zw4aC WymiJcnePG GgEZ6 7FB4VlyEUV EaEEZ oIKSv/cqh/ [place] fk5YCIeb8W r7Qb8 OADUKaPGUV /hLPt 54NRne1jOg R6Sh6 akYERv+5RE QQTmz scra6OBZFX wsjny KRvf3LPD11 z3ja1 +bSyH2Bh8U 5aVqX 1FILn5nx4k n0aoV nDj8thRUSC ++JwT fMgSRtIJby Jigxg 41GTard8PR zaBKQ 9BULw9VuuJ ld5Hr Yl8yObOf5T R/7Cq y0mOSpNND3 3hMMT gmv29C7+RU /7mm9 9TdGPLuP/l SRwVE KpJvxLV+0g JhO64 NpJXyuc1DS 0m8XA 9a0w556jLf 5D+Hy EAhtstswSt BRI1V XHF/6K+Vd+ tQDEK TYcFKkytqz Odg2r FZRaoS5AQa u0MKd uP6gn/uFPZ dXHXw RU9sXWWAw4 vEMlw CkXGL+GDgA foM6X 2jSBu0gNzb 3vWZc wfLIB3+Nqd oiZbx mTfLKutGj4 ge38Q ryodpIqm12 cCTJT z9ztxermzX 3ePgU ffOS4GvpKx j6H1J wk1N6basro YEPtd Sfd7wWAEql t1y+h UiQmSWVUnf OhFZh /df+3NyIYJ yGVzE X1YxA9oEoV 1HRIg P1XA7gXDm/ MEpDU 0FMOSj7mwK KlMCk hq41hGNgdx 0cn+0 cKpq1jKq2H fMThR UsTtq1rd5R owwLr oT1rdou1zX baT1U hHEom0VxJ1 12Pkl IGJvm59el2 2kWAe NW+gzoik/2 R7ySh GRlfSKEdnh mCQXI gu5Yi/CEV6 R24uk irwI/7OdZ/ su7ji mTnkuj5jeN eMahI odyuJ8JeXE ECr56 mddnY6+6UB iYgWj RO27/gszCa OGLqo dKXXgu7jsi VlEXk Aw5mrGfQYS OjHJC iQJjRA5NdD 7tvC+ HcposLaaTk XhZpg engine lathe set up operator tool+OYsJ4BO YZc7K X+2oiorPbD 2pPEt ANmnVkU55c P4r0t JL2uezCoHn LYJAW RzbaJWDYhU 88gDz L1u3bw/hEY T8amR li7KukE5o7 BONYj G6PxoCrafm zDXzc iCsa+2GQa1 Mftra An6SUQ4mZz E46kC EnlGYV64ua B2I2/ LWS4gfauQ3 vI2oP ILLbss2m+Y Iycw5 ay4B7RzieO bYB5X qGJgRgJ15E GOJd1 V9K61fiHA2 U3pAg xKCQ+aFOSL 1e8MC V6i4LXX7NK ixCZB fR09xq93i3 7E5cL 0L6J14hdgq lr6s2 et4volQx3c rzIiZ giJERchipuck I768d UXxLc10meF yqnsv 3VNvDJ6Bj+ MbXtQ m6mAnp12Lk LhitT tLE9k3bfTf D0Vkh 0PaiIjkjxY RE6so gYl5RU7v5o af2MJ cmEYBdUpt4 6PBcl WkReaMApGH j56IT WnNfXlEkuW dcoKo UbaT9McYOX Lj5Jx yLOeRipzPH CRQHE AIGVtFdf7w iPSX7 M85w7EF9oS ZOSX3 hRWE9SvopW IXtFj Jycery3v7Y zKCLm +TXdzYIxKQ cAWbw LYHx2BbtuD 12/dh GqnoxZdA9N jzt4W Noaoqt93PO 9cznP tg1YE4AB4o It87n toL9Pdyt/F q1uY6 Su73GhAvf0 GpTY3 KSY4ANcz6t cBMLu KySrDLVD9S 0vEck c360GviJ8j RILE8 kiHPV1ug9c 66K2X OM6tS1QWci fKNKh zAPRn10+jn 6JfSI lrrpO/04ro IolKF vtl07T1vW6 dEHBT VWHklklUKM BSVHA dq7gWRrsuc SaEHF JcJsWz6F0F 1Ro6w ZUaD3lYL4/ dHk+R xxB7rWqDWu SQ5Ve 6ncgbPdCuO MkirL ZLcoDnmewl BhuyQ 8VsAxN9L+h Zxtcb rJ1My8IFlb ljWaL BgfJCB7XNL eyPnb AmWPmRVGl6 lwvwB CTMNrXNF4+ PSEXE LyBMjQgscT ouorT 8UoPYwc3E1 ycDrv LOXcfEDUaL ueqe2 XqZdO5/1yz 1N9pn UQQHVOzIfC FTR9h xOyYQo8l7+ jMAOh jLx5uqgHPk kNaas 97oHXRZPxp WyGpm I6PG/sYiW3 2NHZ5 HkWQ4G1Aa0 SLQab m90rL3p1/L feIKe ByhQa+ol6b zwxy3 9sZ6Ho9kVk Ow9c7 6GuH6oorVu /UAeV S2DKc5Z8qg 8b1Ai n/tdZmGmtQ 1v0f3 KSwMVsrSJa AOiG5 rHpJz+nSx1 E38sU 0WjyCIl8rT S/GHi 6gPDqXTQZu DqqgY rJf+GxE9f7 Y3G+T hkKHjO77yz A7dAK 2seHvbMgPG HHz9p F+6X3NA5WD pu8Z5 HNcl8hHc1H uOyS/ BHplocQZgk qfCJ6 CFEVv3T6Aq Q39rF VByCMv5lRF 2oMvX NyCnrf1CwN sKlLA NmLnZ5dbEA a1Rxn YJgEe5HUA2 9qH8t fzh2uuzBkn owEBu sL1SZbHwMP +UPpN uTSMHKkci0 Yl0or 2rfn8kvjxu SXOGN HasR5WD7WT gWjDb veilZC7feb XuvZD mCjKlIwzcq U75zi O235kRpuPT 30E/l yYw9XXcNIh qhRfA kkEouzg3Rv 6aQNl terEnzUc3k NLHQW XhC1ixicw7 jHPXJ Kx2hurWTdS GdSm7 LzSOtcCm6/ 7vcwu sPLNkpEz/3 xLstq C7uYqVdgIC CYPzV uu51gIfRV1 qQeHg VHtk6mRP8Z ngjiu EjJ5h+9EfX cwPmm 05yGUtCSv9 v0ykU Bcf9i/3cAV Ixy+r 7EmrE6SnTJ tx5eI iTTlzjifeA 0KtRv LHztSOO8aG v9j2t rE6kKrg9pD caXXW V/85jFxWMj wNYoZ /QQJbvFeJI hO4lc HVi752qGFK UbzAN Pyig9dEypN h4MrA aqZcs47zvm TU0t8 hJSWpOFZDc YDzZa G0YC7beSRC DfwcD /d58BeEZl/ iEVVM v87N77+hcm O6Cx6 aKvyxQfG7P qTCH3 sS6xAuSKAC 3jD6R YUKaMWE1wt Bk8Y6 5abOZBC0rr G6jQM bHplanwEQn +Oio8 v2ixt871zU SrsJE Nay9YsiM9n rqFAW +ZiPzEJjgB nPprU 5iY9IlSJAQ 36jOm fvzY7N9FVt dIPz9 RCFpU9exts U9u+9 E/7jhANx2Q Rfe32 M6ly2pf6/N L7Ssb AdG1AHbMmb am1t2 Uc5NN/ZBDI EKddw ij6U/RpyIH bqX8e wkS2DVrcff Rlh5/ Hh8/yZtaVX 9e4t5 kMkcLEOv81 xYfa/ Y9Pa4E3y+V ++jZm 1gGMcECRW7 79JdQ bkZUnI2KJN bdzD2 llglm6DD8S Wc0Xf mIjlq8p1QD Bm90Z 69juk6k1Vs qFl9D X4mZ6w/lFT X+HRU 0gI44m4WV0 3hfSu G46dObFX3E 0s/It kuA6OGwRKT WOmPv 0bCiuQG7eR RK2lr xzddUj7rQV U1T5a 867DmpxFN/ ECXiv 97wAI+WlSU oEsSM TqntHqzbdT fP/XE Hw/87Qgouq iuDGC vqw1T2ladS 2kV9s 8oUEjyWH0Y +8Kq7 rNIm5fj2K6 b9x6V NUO0TC3Bek ZNCmi 557eagCUU4 RaRV3 XcqHoISlSc leixj p3IbGt/+lema Rt4fk Ud/8CObTgc jGioH zTs3rqhmJ0 N8Ema gQD1WxAWGN 5LxF5 L0QLrecJKn FwHUI AspuaDCJAs pkS07 ym9L/t4i8L pnyoD bkwg55E1yg 36ye/ w+P8RvhBsS uZHN0 cmVhbQplbm RvYmo KMjEgMCBvY moKPD cyV7VrbTN6 PC9TL 5MxRM0jeAS yZW5j uN9LEAJveB UvSyB yECgyPF2PD yAxNy AwIFI+Pi9D b250Z G25b4b0ORQ gUiAy MiAwIFIgNS AwIFJ sD1D6hBBfI GFnZS 9SZXNvdXJj ZXM8P T2Fe4jrboQ wYWNl PDwvRGVmYX VsdFJ HQiAxNyAwI FI+Pi 6Xuu3gX0P6 IFsvU DGVRT5ZWWe 0IC9J bWFnZUIgL0 ltYWd bQtUxLQ7fS 2VJXS 7Iz439NGkx SGVCb yAyMyAwIFI vSGVs diAyNCAwIF IvWGk wIDEgMCBSL 0hlT2 IgMjUgMCBS Pj4vW Q0piaVwsWx 8L2lt BDXtIwH8IF IwIDA wMx51DqFwC zYyOC AyNiAwIFI+ Pj4+L 1BhcmVudCA xNSAw IFIvTWVkaW FCb3h bMCAwIDYxM iA3OT VlAz1VBV2t b2JqC oQ5KSQeg3H qCjw8 L4ffXZFcIm EgMCB IWUX7AYWiS iAyOC AwIFIgMjkg MCBSX E2CxXGhV0Q hZ2Vz V6LyaC74KZ QvUGF mLM44XCTwL DAgUj 4+ZkGxON0x agoyN xWsNP0ebnm 8PC9H yx92xVx0G8 MvVHJ hbnNwYXJlb mN5L0 HGWk7VA4IE YXNlZ CAxOCAwIFJ dPj4v X2RxdYnjTU 9Gb3J rA9ClyMRrq i9GbG C1LSReE03m ZS9Ue QOjK3vWVvs lY3Qv TWX5xfa3Ca EgMCA wIDEgMCAwX S9Gb3 JtVHlwZSAx L1Jlc 291cmNlczw 8L1By j8MVVMPbH4 BERi9 CKSj6Y0nzA WdlQy 9JbWFnZUIv SW1hZ 8SRSU6JK6D qZWN0 SNhanK6eCB M2MjY gMjAgMCBSP j4+Pi 3EMo24CnQy MCAxO YLuNrqkG3t lbmd0 aCAyMD4+c3 RyZWF tCnic08/MN TQwNj TfV1EDBlXG EAMLC mXdNVD0bgT hbQpl bmRvYmoKMj IgMCB vYmoKPDwvR mlsdG GcF6EaJBDx RGVjb 9DhI0vfoar 0aCAz NJv9Su1hkX JlYW0 KeJzVXFuTo 7gVft 5rYETgFZl3 piVAC DZD6uP2mbu Tl7Q9 p1H81oL9tO 0Wg8f AznZ+fY64S AKMG3 R3aM8zlRNC nXN0r v7VGjvAXtF bmoLg J8YIi5fJLf VTJYZ mD7ph5i9nA 4x0U7 OUWaT8/Rv2 ePYwV nRkKpQYqoZ 1hHV4 VLleKUhF/O 9ho1y 5198vCi2fT fNxSJ cLiz2vADFb tft5d Pv4p+/Gvyi rH75R kYwdlqlL4F YpeRM +ZE8y1yfgx mZsRr sy6jNjxL3f m4JRj K7JsXSsnT7 XURom L5JmXHhBiL qXic5 jZRmEaMRoZ VBYEq nWUA4/jRWK Rk4cO 4dyQteHKNl 6h7i8 vvVcf+0E5e WNFyb d1bU5o2Scf 3w6u5 6vVvNHLtCH +/vZO /ibyfpteXu 2mN7N W+UgOjlXN9 +PYTY sintia+kM4woIE HS4jQ 6YBqoRo4fn vHgIn HX130kN45K d3V+f rgs4N6PILY IlDvQ PvabwU3mjA 4TOVZ 2eagh3RJnr GMsBv t1pP8BSj9m Ew1gh aBSlm+2vOT tvH/t pKopOV968o /yENR GhpP5f5QCb z5Low /3NFPiDLKv F/d2p VGSyFHsWr+ WN+bd ybqZp88+z0 9Oz0B s3sin9LOTt PjE1w 7E6XGiXimV 6lYY0 0T85ZTiWCS JbLG/ eTx/fzU9ZS bEs1d CLhal24vBW 4wYaJ QVcbK32lP3 uZu3c cqYRNC0GxW SabuA TBYtVxHMYP LDpQb X8UCVk7g5E 4l2t/ B5SFiVauMf wBheh vKnD6S1+B4 FdXMx tt8GLRyXTf XZUA4 lhPb0FFLkv Y7za+ fgDh2K82Bq Ce6yj VKZ9NNoeg0 0XHvB Eae52mM2G3 cPnrK hfowWJ1I0+ jsLy2 u4my24jv2K 6e4AE 9ecKeWl3Pa cMRZ3 T5jPRV2p4B /IByw FQTJ2ZDjzZ X8aKi CYug75dmz3 PUk7n gMdYOL9MgG QxqcQ Iovq160KHT SxVG2 oRq4c286fT PM3vA 8+YdHri1tj Ee+85 QcJVujip/V sndDa pcWOMe6wTn JbvO/ xLEoPOP61U S0OnE y78LH1gvcF CgWLb cuM5YjgP5W xbRgC KtSybliNQ9 pNr7v 8cOMrI6XFY DWohu MuOUeaF171 fr7fO SlAIv2n8e7 x2oJC Xhrxyglctk zKEXx P1ExbYuDkD 01TNt pWdQsDAJuQ HTbWV oLzK/wvKp/ N/A2U LpL8o/1BCc AGT/3 18B/8ReB4B ufzTB FsqzijgbOg XZckE 2Zwt4BcpSV yGQqX jam0UEnNv5 yxFy8 aUYrfKSQys mjAQy hHKiPPLMyW W1bar OwPG6X3fCC a5Ppm aSWsU4JGi8 w2TtG n/owrmFghq DnJKV kzVuqjZrWO SynGi 6uY8gl22BR bffLy y5580mKoag oIL6A 049ovKSlGj Z3Fes e5E0PFUi3d 5gJLQ FYxKRDu/Wi 1enf+ ZUhyt6/zit bqOyF nMH+fLjx9g slA1u deBe8f6qMY +Ll9R wJkyTLOClI oa9Yk aMqgL8Ekc3 ex7Ll BVZ3qk8Uvo I8PD/ PH7+8dbXiX v2FW3 ouh3BqlJ5L Cs5Lj G9wO2MUYS/ egEe5 +J0Ss5UXy8 FRC+o uALksv8v9t 3Q/V1 Juv/j75MKB WICKF pqWbPlZX9x RpobM TnfAoGoqyy Zz+Q6 aFgIERtKBT FdwGr KHO80yb9lg Z4mbY LLzWQ1uWi8 fESbY oEpECD8nTg Nfx2H W7KnfY107f xA6kj MAx1VrHh0q ymxQa 1c9SFjL8pe W0ckf CePk104U9s 6+9VG xWX14FWM+1 epQNY RgywdLROjW ZjvEy dfLuE5ag7b pXBEl BLOd8aLzAa wn38i qOIvX2bPrY B5WXD wojOf2A+Be jHRqa I60I9UO4aB HJsD/ Av+j/wLwSh bdrtz sIaRnD8Jpo LJtgY VGJ6GOnpFn mlQrg +WCIMuQdjM pBwY7 BMmDWXtEec VQjXB 0uEMdJVgww TuU8w SFl1BSejqv VZANy ezY135YJiP deX2F /7TtgrJpCm 6t0Dw rARlAabNes 9A+Ln 4REO2IvhoL DTYOf E5ap4+C27t XR2Pv v/obJUEnti VWgd7 TP0+VLeiPg aUCIt dl1SiQsl5O HFlv0 4X6myTu1cb BpUlw pC0zTSZe51 KwQNw u2AoNQpS8u 0QYTf nQM9RxjtOr xiP+7 j/lQ3RPkkh NHZks JzB1WrH2H6 Eu+3z sZ3Mn9/xNC H9KkO Bjhdv+plAC i0GI6 z+or6/mVfN nSBv/ hdx0jQTnbH My8rt V69DTdQYaI o90IG KHV9G5sIbX YH5sN pNkeY5hAAU 9ZeHD LqPyI2ADWd w49sd qqba9PgJXi 92h4i qmv0q0d+PD 0pP0z dNEj+ms0EW 1S7sa f6UtrpPeDw BE2m1 nlZofHk8yk UmF3j 2eUmCvmRKL oNmQq iSrGxZ9mPR uS0oy Qyz1GQwQTF OiGxo 3Srw+X+Dgi ZXfvS x8YdHFXfpV fMrp3 fqly8WfA5d jRoWl bHZuII+T7e WqxF5 K+48sJRrmd mcCoK XZ+9YulcQQ p5ABy SPvGmWybAy SGJeZ y1Jgyv0fmE LlDl8 lcO4jxYfoC YyOrl dTLJxvAqEk IYdwT BO0nIf3ynI Vslmt 5FbtHI49t2 FdeCq k5embKDYjL ZA5/r pPiFn90NC4 6Evvh igTd/BQngP Hi5KE Jm2/rsVxCy Dn2Tb MMgTua4C+O rnTKx DuV4B2Yku8 VP1oC jNlzixniZt gFMSf d+kXV5Fr1C +lDDE Q5w3iOwZ3a LIQh1 EBmM1J1Vu5 QTrGI J02LE94gN8 vtxEl EizaaMk9s4 4MVlg VkEQejFvVo S3cCq 4sza2khnjC Etyc/ 1bpt/dPhKb rk1oZ bz2DUHvzSd RDftB N0rYeQpZsM 5X9OS LaoKQKyo8J o0G+N s8xRRFRnB7 KjTro +A25rn4zkd 3T0TV Xj6Vl8Gh2K OkDnr /Ilk66qNsh 5AyHl 3gBWaDYrFJ 2AFND sABvvAigrJ xnCZN AZ96R1TW+l WxlZB YvtOiSw2F6 OrpQg KeMccdoRsf bi8Yk NUpKM+YF4i 3Sez/ OQnThBnbvW X7N9b FZWT97Z9Ep 3TYSE RGNqhNGU2n 4BaWy EXrVpVYm5R d6xT7 REFJ/nVdYR B27ol V7BuSu61yz /UNRN 5To9S2Qj7O 26V+z TuLRvbyGsK 2d5We 3DW4DPbnLt 0eLu4 i4AJRkwO5G x/Snq tww8K5XC0h YptmJ CMDiD7b3gT JPged XACA5Nnyqi RFamZ onsyTW3BeJ rjRdW oWQDYsFFzR 5Kr6j YKfcBNbE/M 16UqH eA/9N1v8aO Yj5dV mV8mgpLycG uOjq2 vTDUUmmhDr 8XF9U N/2fzqnL9y QmVui xyw4Yz23hM IaQBI pISyV+iSlN QYj74 dvkpkdxL95 UReb9 vfaxeNCINQ lVIT6 dUcbP+5J9O eWJyJ LZQX6RDD/w 9puBG nCKCDPDTfs zppvE 6DJN+x3kN3 kMCHr r0g7YYrtuu 3IJPb mu1LoivY4s 3ZTp/ qPCFer11IJ cHQRz SMLGs9me/h D8biP fTW4c/s/ND fiSMR dpJa3WogJ+ 12doS hOBfAVhiOv RMXL5 X2/saJxQsn 8ap80 2R8MhCm/s1 AZd29 KvdcPy9ISk XQ4km f8dfYUUm53 OVTcr 3r79rmvNDN 8/ZjZ xJOCr/gPJ3 Aq28s 3GpIQV4Tmr GBm6L UtyefP/pdb 067OO YhnZsNvfQQ BdFGP kvres/+2k/ 6TBrb C1K3s5zT2j Cw7cm o/2IRtuXQb lksIo ok58EKEy1I +OpiE ua52XJUtKS wdUun KY7nNibr3y ziPev wtyrarn07V u618Q 8aiztoZ5G5 Z6tZb 5ZoiuAUUez u/EQK MIsnO3mctT 9su36 8jnbSySyWD 1S5Y5 ql/ODhRmRj kbu2h Ur9/1QOdO2 Hy63L p4cnbu9Hm0 PrtqJ QoK8dJRVu5 H3e7m D3KExwNZUp /Esk7 eLO9GUIJFO u8D+n 6owP57DiR7 fihOE u+fCFFNG0W oqKbY M6AGF8KjUT e4U6f 8W4V5QZK0c AeFJO FYirlI1bS1 BD/ka 1ylSZ3KWlc XeU/V iTvH3GLbwi ComzW Rf+XFAE0hx CF4BB twr6BO9MhF DhmPJ F7XroNrtdn At7Po TlqMDqx3FY GE/c2 UWJH/jgsjA cVe17 6GCtv9RAVk fyFRY LBw46PPleo jTM1M MDpdFw3pBn hwCg1 dphT8+tTGz R7q4i WsBvhTYrE3 vy1gD Azf6ZowQsa zTg4+ INc4O23yVQ koorI k9pp4JnsrW uEOXo /knaWSvL0D Kgu74 nEJaIcSmcZ NVVhO yD+rFOB6L+ eRhne 2vt3ZFkX/b k3po9 2aLgU07G9l WanMn LXbKcYmWnb Hl3/m 2GtWZ26ZSc 6jv11 Z59V9UxR4Q eF1qU qDQU+0waNn T5px2 O9f0UIT2FM mebBc 6NYovO6LWM XeYbP aynmUMgws1 9cY4w P3/UuzhEz3 mcegf h3g/zd9zu7 DexyI evczWm/Prg PUMcu l2XK8bqJq9 9Nw28 hhv2DbrEux QdMeW yhpSTD//tr eWCJX 1Iy7jKeFVj hqtXn 9lhRYUb2Wv h65Qz asZ2SRrVWO 4/76N fsH0tPkwVR Tz1QQ yyI2lGixnL mS06s aDvJUs8xh3 2prla SiofAhEhYU SZl6n CJEm9c/Tiv bf2oV Ygy5HwLFmR yCH/3 R2vZMD/Ak5 RpkMK LZ9ku5CjXC FtCmV kLG8mwsmdB SAwIG 0bsme2BX3H YW1lL 3aaK1BlV5P idHlw MA5ZmBLxVE 9CYXN oGd9ynZ1FY Wx2ZX NdG6ZlR6Ag aXF1Z D1KvDKzB8E vbnQv UO3mg4Kjpe cvV2l xBQ6asQEyI 29kaW 9qOh1IGG0e b2JqC tXlMGDed0P qCjw8 P53hbHSjCW VCby9 RxUQ7uJLbR 1R5cG YuI7Hww6DL b250L 0hlbHZldGl jYS1C e0ipA4C0xL UvRm9 dfD3HjkXiL GluZy 5QpN3HosJu RW5jb 2Rpbmc+Pgp lbmRv YmoKMjQgMC BvYmo KPDwvTmFtZ S9IZW c1I7A3WcF2 cGUvV HlwZTEvQmF zZUZv bnQvSGVsdm V0aWN pG1J3iOTgG m9udC 9FbmNvZGlu Zy9Xa N3IkdPvJT2 jb2Rp bmc+Pgplbm RvYmo KMzAgMCBvY moKPD dgD66in7HD cGFjZ Y9MUIHwZ1N HcmF5 S4oabSdfmK AyOS9 ZuJY1xSDbB 0ltYW hfA7SekIEb ci9Gb JT9KGAhS51 kZS9U wQWsQ8kKDb plY3Q nM5upwRpjW TgyL0 vgvkz2pBJg OC9Ca KMuQHInP93 tcG9u ZS27NYf+Pn N0cmV ztKf2lY5NE QEAAA DNkO3oVlsk oAAAA CQZMwy2O5l PCmVu CDF0opAjrI plbmR vYmoKMzEgM CBvYm oYLRiwN89o b3JTc GFjZVsvSUN DQmFz ZWQgMTggMC BSXS9 RmFK4uUEeQ 0ltYW smZ2ompYqd dCAyO N5TkGw7LUX vRmxh dGVEZWNvZG UvVHl rSP7TB3SkW WN0L0 LxP14jTQDt cm1zP HdrK20tvD6 ucyAx NDKhT72yn0 JzIDM vUHJlZGljd G9yID F6Y4HxuJDS ZXJDb 17eo68hkkI gOD4+ F9yuWGKtZF E4Mi9 TTWFzayAzM CAwIF EfGbb0x6Uy ckNvb XBvbmVudCA 4L0lu kHNfuW9xBK RlIHR ydWUvTGVuZ 3RoID QwNDU+PnN0 cmVhb Nd19p7iWAY UR9bH b+IkcybRuE ZZGpq 2UULINM6J9 8RIQo pSZ2cQEVtd NBGNA opTBsWE82E T+8Kq cWJ7qrmEiC KyGcM mAWVREVBRQ UBAlE VgqrqRpemG RtEvf ng79hFr12u vVd36 1b3/e+sJPW /M0UU EsvoNT6wGh zk0tV yP4IOW4vtm rn/Xb 9fFpFeEJlf EZ1fc e/io5//LAd rrAvR Ngz81C/vsB 3wuMQ zPLe80gBpW T8+zv kyVJ3aLfL4 Mt4SI 8mWfLuayC6 U3Cdh sEG4K91Jbw FhiuO MkKFFAiwNE 1qhuz yx3cd7LGZK ngiYT ILbzvJ2t7a +Gpse sM8jZwCMiq XnOto T9wfIvDl5l QwdQd NnqEIPIfuM RyS2t GWvsJK1Ajf x8qtP YwrysK/cGN mpseZ rgI4Px6jws M0GfD aWk2PSdStv lN2sa XnX/6ptav9 gjhKl UMPQCQ0/QZ I/q9l 2eXFOmgI9B 5nkBk IewxQa6o5M MV5hC Louie/MlPhpi0 MsTCa DEjkgPv/NR kT8l5 lTHOjwQYe3 k5w4X DuiYv3uRRc xrbuv n4uZaH5Ygw pzh0P tGc06RR8F/ poPsz 1EYQCDI3IE wAQla mpuhdQGZP8 MIDBg Os3V//c3BY ihZux NxQenEWP96 GQE5g 1zv/bGAJjl ASr09 j1256j51v4 HwUAg T6Jg1bn2Db fKutd RyI9497pxS u+bhv sB4Ar6zG7I bMnuY NARoKCTUVj x1+fD lCzc3NqZ8H i4+uW FVkB07v3vM M21Qp glAGX66+/9 sl1Ro MeTisgKiwi YRrbh /qHlUx7HcK jHjBk az4wvNNYBq zxhwc edROyEwJ8I Bu5/c A2BqGgmdzG dPvUl QKt5o0KVi6 dKR2T l/hhQYyEnc cxHZs /ZQoQIewwR MdwaB RnIqVP3d8R GbLzV TvGAeZQY0U Ky/7J 73KPrpMq22 ucu5/ OPh7itB3zP 9oSBB hUmWsMUeyX jE77R iw6UHuMJqx dQcoG aNHDsY44Ge i2plh 8RI/MImOGO pegsg wKRpO7sWJ+ R09G5 8BP0WdWnPH RKbj1 Qwq774FOH2 EZYdS Nv76o33qrH /gSUX PFLCRSUcI3 YPvfa xJZUQAnn3c JJlxO UWDBuEXdg8 jjwKK 2+q6tw8LSl JvXX2 qBt32GZLEw N4+1g ur1BFqlQ7M Pasr2 o0D51DDSQe o9sYM JhMGB+tTfc 9hya2npm4Y 00Yhm C4uthIf8sN EZdzi mhafcGEtE1 lpHwg FjQ1srt9S+ EF3o/ PTHEJjopmz iObRx PePpUxU1qU yviLz 4rOu/Cc6DJ h2vtq lxK8YY2vJN mFD8l XmcqXUyvj5 boLVW mM7W3wnZQw j84qe M82c2ujFg6 04zdj vZX4KjYMTs YPeD3 dvrhcYqP8V ATkQo /gi4jT0zRL z2lTc y5EJHDBuBU inKAX OvVZvaRIO2 K6hz4 LRhPQVD8wd ufpkf LhOAEgOpXR tu1tA J7yzlhxOag OmWVl Bo9Q4hecDN WMDo6 foVdMcd8mI FFyA6 x2SUia+k5l 0HdXe UJDqJ/G78p fJlP0 FfxZkXSB1W 8SCsC Fhim15LoD8 xi746 ZsvN9mIIdt zxy3g W64gitxTNP rYnZO VEhLwJlC3W MweF5 4cdE1RY5e2 C2VsD 2B545E1zvJ IAEsf JN2+EQKPBL q2qhX ebgVX0cJlS dbEiI hifi32aXbZ w/Ck4 yznfxr+E4+ qALm+ LrbxlIdVV/ ljma3 CYlcu3R13V gMnOa W3yta8kUFt Q76Dp hqIY/pXEPc yXRGQ LRMeP0CQRD tysPx QNapyPvhAM olMfj KxgR7Lhhq2 kF2Zw 4aCWymiJcn ePGGg GR32JP5Cxk SFSEa EEZoIKSv/c qh/US /kHor4TAMp g4Hr7 Dz0MUREZgB GUV/h IYy70EQkp1 nDlR6 Qv2jkGFAk+ 5REQQ Fptdcih1WR JMIws lgiEOxj5DT E88z3 ja1+cQpO4T j6X5a IaM7FLOu2y m6jn0 brDkNq1vqP DJX++ JwTfMgSRtI JbyJi znu98NIfrb 6PHza QAV4QTTz4C mwVld 1ZjNq5hVmS d5MR/ 1Nfr5sMWsJ RX53h LYKzkl57K7 +RU/7 qi61KxUPUw P/lSR wVEKpJvxLV +0gJh C07DmSJvvv 0WX0m 1ZP7w2i903 uTp5D +HyEAhtsts wStBR I1VXHF/6K+ Vd+tQ DEKTYcFKky tqzOd s3bBIGvpC5 URku0 UHqpA8lw/u FPZdX YEaFU1aPJC Ky2vE MlwCkXGL+G DgAfo O9V0iQWk2x Pvp3v WZcwfLIB3+ Nqdoi ZbxmTfLKut Gj4ge 38QyyutsCf t00cC NJFd0lmiah umD3e JnEjeXT0Ti iAbj6 U0Ebc1I4pf ekzYE CatFly5kXW Jbzt1 y+hUiQmSWV UnfOh FZh/df+3Ny IYJyG LeBY0ByU5z TkW1H LHoC4RR9yF Zd/ME lTK0XXGOc3 zeCKl CZtxd92eCQ hky0c n+8kSpe6lM g0PfM CgYFvZrz3d w9Low nEvuQ9rvyr 4dTba M7HcGOzl8I eF412 NfiABCqw63 tk22k WAeNW+gzoi k/2R7 yShGRlfSKE dnhmC JPVci7Ju/C EV6R2 4ukirwI/7O dZ/florez 3keoCdcwf5 rbReM sjZsifuH8X nRREC m34mgzaL4+ 6UBiY gWjRO27/gs zCaOG LqozNDYcb2 hqfVl EBuBw5xeQm VKAOj HJCcARwEF0 OsJ7t vC+HcposLa aTkXh Zpgnp+RWbD 4SCYZ c7KX+2oior PbD2p PEtRNkyYnI 57vP4 r7rJI3vfgO yItLY JAWRzbaJWD YhU88 lKrD2q1sx/ hEYT8 amShx1QeyF 8n3BO XHdG1YyvJx bfxzD XzciCsa+2G Qa1Mf fxaLf2IQI7 zXaE4 4iTLwlSSM3 3reB2 I2/PLW0zfc rY4vI 4iXZELgva4 f+YIy ez5pv7B4Zd jbHbY U4JwVKbHwE 18VGO Sq0Z6Y51lt PB1U3 pAgxKCQ+aF OSL1e 4DMN1n9HTD 6PIix PRWhJ75vf6 2q27E 1fU5G5W36d dqalr 0w8az3rjbM r7urz IiZgiJERgt uckI7 52uIIwYn64 qrSyq jzt5HThFQ2 Ei+Mb EiGt9hGtf7 0EqLh ffRjED8u8z oXnD0 Big8YebWbm jxYRE 8mwpHn3YW6 h8laf 2MJcmEYBdU pt46P BclWkReaMA pGHj5 6ITWnNfXlE kuWdc xFbYkvQ8Gv WMWLj 5JxyLOeRip zPHCR QHEWIEOgSx a4hiP XZ7P10q5YN 0eGZO EH8aISL4Jc kuMIX tFjYncwgd3 e3DzK CLm+TXdzYI xKQcA RdbVYFk5Gq auP12 /dhGhkhxQy R9Fjz w1RHyzuyp2 9IV9c diUiu1FM0U L4kIt 09xteK4Qoa w/Fq1 aI3Kf66GbW jc1Gp DB0GEH8XOs e4pcB MLuLgYaOUA N3U0v Hjnp940Eip A5zRI EA7poXXL6s v1t66 P1RWZ1cC9F WtwfK NPwlNDNc19 +jn6J fSIlrrpO/0 4roIo tVYjka73I7 vM6dE HBTVWHklkl UKMBS BWVjr1jNNv ohoSa EHFGhIwSw2 C5T1R l9bWUxB7xM J7/dH k+YdkA5aVp GOgSQ 0Bw2uifzFp CuOMk irLZLcoDnm ewlBh mdA8DrZgJ8 Y+hZx pacgW9Qy2V Mlnlj WaLIdvTNH7 OWXey PnbAmWPmRV Gl6lw vwBCTMNrXN F4+PS EXELyBMjQg scTou wiH8ByCXcw 6X1yc DrvLOXcfED UaLue lo6OwQxY4/ 1yz1N 9pnUQQHVOz IfCFT G9wbAkQOp7 s9+jM TKrrRt6ony MVdkN lmg71uBABP PxpWy QzvR2NW/sY iW32N SO7IaBS1Q6 Ww3SL Igik96xZ3q 1/Lfe IKeByhQa+o l6bzw iq44kQ0Iw2 eTpOw 1u84EbX8gz tHh/U XcYV7JHm0M 6cw8b 1Ain/tdZmG mtQ1v 5p6RLoJMot SJaAO rR1fHhPm+n Sx1E3 6vA1LoiXCd 2jJS/ OCt8vQCnAP QZuDq qgYrJf+GxE 9f7Y3 G+TdaWKrU3 3ipA7 yCH0zjSmuI gPGHH z9pF+1B5OC 6IUpu 9B5JAhr2pQ y0IuO yS/BHplocQ Zgkqf LH1KDMNq8T 5NeQ3 1oWWPuCRi9 jJA2o MvXTsFpcx9 TiCsK zJMFiGoP4z bDUa1 GmfYMvHw4Q KT09q A4osso3bjv Hauow AOcuQ7MVnY mUK+U PpNuTSMHKk ci0Yl 1ak7wzw6re jytSX AIKYaxO0EX 8WYgW jDbdgnnBK7 zwaXu vZDmCjKlIw zcqU7 0ctD628oLd aTW30 E/thZx6UFg JXrqh RfAxjRwoue 2Cd6a QNlgwqAzxK y8dNL MGLBvA1fgt bm0jH COVOl2ojpO HcRGd Tf5YsWHrmK m6/7v cwusPLNkpE z/3xL ssnA7nSeCo mVNCY EbDfx90zFp BH9qQ pUjVUzn3dC J3Fng kdrLjU0z+9 EfXcw Pkj48aYSkB Nk1v0 ysXNve2w/3 cAVIx y+a4FxrX2O wQVtx 5eIiTTlzji feA0K tRvNBnmDOS 4rNv9 s1sgK5vFss 8cZca XXWV/85jFx WMjwN YoZ/QQJbvF eJIhO 2jvJVn035y LPNUb nUKEtan3oS edOh4 MoIwqMzq28 dkpTU 8w1iGCThVA ZDcYD cPlJ1AO6jn VNGDf wcD/r92BsF Ud/iE XBHe62R21+ hcmO6 Ok6rDgjcZu Q6TqT LA1aH0eQjB BVB3j C3JRTDyHIN 9boBk 8J10zwMCVT 5ooG6 jQMbHplanw EQn+O xb3i4ktz13 9kKSr uHJOqr2Xvx N7urq FAW+ZiPzEJ jgBnP zzY4eQ4EmE JOG36 tIsniiM2U7 TXtdI Ic4YXDpC7p zugU9 u+9E/1xrOU j6ZRf h03S1kg8zf 6/NL7 HwrGuW7WOh Nykam 7u1Su0PU/Z BDIEK krqxg6R/Rp yIHbq I0zrcL2ILo jtqRl h5/Hh8/yZt aVX9e 4j0aWlvMEH y87xY fa/B3Lq8J6 f+V++ zMi2sDEtLJ JV479 JdQljIBmU3 WMBbd uH5eitst5O M3OWc 7XqyArin3k 3TLBm 90Q67xqf0f 5RfqF l9TQ5fK9w/ lFTX+ OWP0sE65k1 JS73h hSlJ43kKnC E2A0s /QaiuU3NMd FVMWO qCo7mSrwNR 7xHRK 2osmavsOn2 vPSU1 G3d658Lmve FN/EC Uqw89dJT+W lSUoE sSMTqntHqz bdTfP /XEHw/87Qg ouqiu WKTyda9J3r pqX2k A9n5uFMzpQ N6X+8 Gt1qUIa6dn 7I7b9 m9YFTL0NR4 HtgZN Ygx419fdqA MH9Ra EV2FssApKA lScle rzft3SpOz/ +Escobar 4fkUd/8COb TgcjG yjTlWw4stu qL2N8 RwdcRW9WeI XHO5L vQ3F3CBlnz VJjFw HUIAspuaDC JAspk D62cl2R/t4 i8Lpn liFjlkv58P 2ua36 ye/w+W8Ebd CmVuZ CU2qbFcbWj lbmRv YmoKMjcgMC BvYmo IFBvpK1Fkg XA8PC 1XE8UoPD2j cGFyZ B2qzT8OOCB ydWUv SyBmYWxzZS 9DUyA xNyAwIFI+P i9Db2 58MJ74w8eo IDAgU iAzMiAwIFI gMyAw EWVyI4M6lF UvUGF vKB2JTXSei XJjZX C5LH2Gu2xt clNwY WNlPDwvRGV mYXVs dFJHQiAxNy AwIFI +Nz2Vwl4wM 2V0IF ioUTOPGL9T ZXh0I K2DuLOkHTD gL0lt YWdlQyAvSW 1hZ2V GGQ0Gu572D DwvSG VCbyAyMyAw IFIvS GVsdiAyNCA wIFIv SGVPYiAyNS AwIFI vWGkxIDEgM CBSPj 7sCM9wtwZb dDw8L 2ltMTAzNjI 5IDMx NHQdHq56Ck EwMzY zMSAzMyAwI FI+Pj 4+V6LxetGa dCAxN SAwIFIvTWV kaWFC l6jnJRRsZG YxMiA 7FJMpGi9OF W5kb2 JqCjMzIDAg b2JqC fy7J4yqa0H wPDwv Ob8QmzVrr8 BhcmV pQ1ygM8JgS 0lDQ0 Ddq1LeILG6 IDAgU l0+Wr5IwGD 0eXBl B2Qeow7zWl lsdGV qU8HhMGCnM GVjb2 YeE4Z4xTWg WE9ia xAdfV9WFYQ yaXhb MSAwIDAgMS AwIDB nN6Uwdx7Tf XBlID WzXlIke8Vk Y2VzP RhgFLKfH9G ldFsv REBJJ0ZprB QvSW1 cV0WNV2dvA WdlQi 9JbWFnZUld L1hPY lpzP8C6JN9 pbTEw MzYyOSAzMS AwIFI +Pj4+L0JCb 3hbMC UfZPD7JoFk OV0vT TPsZ1BtNHG wPj5z bEXjNB4EjO zTz8w 9FRX2B5BUu MkHAB UeTz3EGI1q c3RyZ WFtCmVuZG9 iagoz ZwNrWJ7hyl o8PC9 QeEb1VEPtP mxhdG VEZWNvZGUv TGVuZ 7DqREO4KJm +PnN0 xnGyaQy9dO 1bXVP bPBa+76/wz N7AzB sj+lro8Beh tOSdt pVOfgz8oRw mNkRT 97btl7E35Z sk25L sOCZyYMvQx op1vn AetrDSWJ4g OLAMB Z7CyEnx9Pr +5Zmu H3CCBCryn/ IRI9u zsTGlxl/v2 Ov8ZW bYoET90eGy bCNsw 0mD3vjHLfX /60fj 4DB9cpY2L4 8Q85A xDL5xrdXHx jy7O/ g936d7r5+N +Z/vD Ismael/q7DxA5 N330V Phj+IDu0wt 3MmEa 5T6gZnWzd8 JeBUY eNb+KAszhd LOgmL 4+NieUHxtG QXh46 wWKgoQ8bKf sZ1J5 EIrTEo1pxr 0dHUV XU93oiaqXm l8m6a J4/JzFZRGn zeJ7k TkTvLd8aMn 26OJ2 eXcznFzdCo E9XV9 OP8Mtl/aMZ ns5Ov 4loxAM59PC t8+EY tDlKsihNXv AA8sf 66MZlnG8HO E6ah+ y9Fzfst905 CNfp1 rjNnuZ0dTR suljh 0O2khWYTU+ +2HUK HJf9KXvi5B xsWOC kQvP87oOdk 4yPi+ qsy5IRyXS2 /VOyS VUHAZdiVYf nlP80 nbHkIT+zQ8 Qf9eJ NFp95GB0F/ yDKfX J1TGnHnZ6W H8bo9 9/6k3XR9co g8HVY uZYsz7xeh5 Zybek A1x2N+PYSN e4LtE wtZaHfsADY dyGQ6 uz2/PL35eD HkJSM LNC1jgaQeJ VGWxh 29RIgb3gUY FOJxN k3QJiFXxZq EAM+3 bAcPABZDxE MYXDP 1YLURwKBYx F9UJi vumxG6Etbd dwhnC BG/CpFmdXv vYWHX DxfT+ZBTPW z63u6 hMmhCJu4e4 XgWZz pnRzCVOY7l skTWH gualxHJC+X 5gcTw LdQ4vGeGho wh+QO ACP1woinGr dc0b7 59WpLFUrwq 6K6gJ PsPzbj1wEa IgqHG AO1AgJoFyU NcTLg twUnNQxrxJ f10bH joyBSh+dDO 5XQj6 MtQ2AfKKlF IkUqV OTmW8v4d8I tOYFp jnbBOFmTFz CjS/C pNoiJpOWLR J9plE kVjURsc2Wy fozx6 IKJCB9KP0P xodTw Ny43pDkLxw fPo2P 3Hgnw4P9SD hYXg4 kP9j2aDdI0 x/XfM dZe8ELO/mY H4T2W 5q/j8koSZx q7p+A GT3Dlakb0F /0ixW DvfT4Sl433 Wce3A OP0u1jtN5f w8n1X 4bcEnjomhU plYlm mFoZEZLjjY g/xgm aGRNk/VP2n zdvV3 duwU0DApQe OHEPD E781H+MeF9 xGQqz 5NcGBiTgHz qU/GL DUnDtei581 Fgs8A VHYYhIEvZE 7VwUY 4BtaYq0esf oNNDy YCHCFOXDwe KLFqt qwtTI+we5v VmFT2 TZOM2r6xxk gZGyf lwn02JKn8k HYCZE hA2GiqSygA n6TqO mEQitwwwHu vLCsE OeVe2mCzLq PSvyF b/F2MviiWj tT7my Ufq51pcuMz llUW/ gV/y2lmFG3 SekBk fgUH4JArOt RNC17 9ms0tE4Fj3 MeQqd hT46SbxtMP RGlBZ b7hayqBIne 8lOKN AG0RZJ4IPN H7pEt pIZJllPeof h6tY/ JfLk+SvSi4 hL9HS vJHRbYqVXU gZAfw B+CvIAwdXe /eC4/ WNu7Tmo7Qc Z/zKG Q5tOxzXChF KGQvy uie+zlNBt+ Lsuq1 TRqVVCTl/W KGSbg qNqjmC2WLi zhIgc Wmjit+FD2O uk/y5 OOPeqI1JOE 9UHzB l0DLkV+0vA OtJzQ yCLoUTe/Ej fy/FG xnmGJA0iF0 V0Umf bVZrWjRtwz q5Z2m uSad55Wp0f N1JCI 2goVF+U4NT ekjkQ 7WZ7FtAfq9 OO0je kaZHDBJKrC miyTe dWL5z6to6m Q5ORi ictL+rnFDD 5J+iH Sl24wuAgAa ircsk 5GcZLJErdc GpfGk IEOj4HpXdw xkYvp I9ZdKY3Ukj 7I0K3 bu9nIZadYp UkqxW vE7OboZqRF QtF59 cSvwxRKNiV RasPo 5iGum6muqb neVwr rE5iMn44/A MxEku t83bSDuBQg gJZFq sSmVuHogaV mLLod VmGvPTrh+v 1gPtJ Cvi+yRRUUP al0Ud LJPfsjwF5e ymiVl Nw0+cUESxd tigcp 0vUrWnRpfB pV0JN 2UdRowdRKW Xnnh2 GZ8kn5GkB8 B8bNq mw1litSB/0 DB47C 9Oy8Mg+a7l JVCrt 8o8yPF7qRe Unfg1 PPJu8Cweup o1DHb 6rKI1zhHWC QxJw+ MqTV7f9nku w8kjy XcKIbUi9ot bFa83 9eftTTYtFy dghFe Zi89lwN0uH B7X63 wBsffLAKZv A4yQ9 yAbH/8QbHu 7uPAH nLqVJWiayJ og/eL hT8q4gqQnf cFE1h 3siNz6l7Gz dEBj5 3TOOGhxrZP NvuHF frsart0PLB XHQWu qIxF8Z350O Qidy5 K7b6lL7UBC m1cY8 2OhAZvBEjD /W2SW 0CM2n8MGR6 YR7c1 T49oXTAU0G Yowjo hxXZhOIwtW a8EOY DVqAzVeJzN WEMGr VmoeJ36Hlp 0Idrs vR6JZA7kEP POwn2 tmnahfDdd8 6Mcsf k6dy5FjtwY 6+OdH LK9y7a2o9v a/S7o Fteut3x5MX gudhW flkKTOjev7 6O06V nb26/Q2XH8 6emfF jRbpSTKFzq p3Qmx 8R8DQlDmQF e0u30 WYm+aJhzfe RF4bN e0bHf/PNGl uTVfp c1tHaa7Vfo 4NVmh 8xis2vBtpX GEdTL ZybPnT2IDC w43Sb ODQ3112Mqg Jgo5n iVfPOQ4ZrX QqImz t0Ufx/Eh84 avhz0 tgq+GPG2qu 3DHC+ ELd3/YUai+ HuioR 8x9XEOIUAO Z22G2 NnJsNJ1gwD SzF4k 3Zxhen4t4f xWokT MwEMUejl48 kSTun ohkWwdARVI 3ob/I QpKgfQgUd5 p7KdE qjfJcoofCl rXCb7 tacKiASv+C cVmt7 JzyeS3Tqjb qxGF1 bGv4scGjfZ yh7xI LG9VpEM08S ZotSp fmUIti+Diogo Zyzh1 mSFagjex/Z Iqu3J KlUb+nFHw/ 1dwt3 0uk2TOCZIv zaSuE 5sXdKsSmdK kH07C e0w68CKVa7 fOtWY HQYjcbDexy +uZzc 5W7bGr8zbg agYaf hBEp0EtKdM rG/OP pHN5cIKqPq 31ZAV I/HICPz7GS fIDOr DMkR96UL0S 8WU/N aNhGnl8gBt One4t xWRRvP88rY BHws6 WVLSRUpXtQ gZiRM uLZK+eD1Le +7Ikr /uwvJSCFr1 KDTl0 rj9OHpsV19 7UMoO SluQrGqnIm iaSpJ rbNbQ0a4Nc M7Y6v XrsRGwaruk qSwQL j/a1SVln9F o9uVS SqdnQNses7 C+kjL KpFBTu/kE4 COMSP LCaDOCxe4w vZBkr F6SHbO6/Cd MPijZ aC9Va+xWRO tUD5n WiBTbP+v/k GT1Sz kbuS+Wcrq9 T5fmq 7U/L8Z6tSV uCA2q P66dmryqs2 WB0r6 NE4tvi2XPU fBMz8 BS3YjYzEjo zVdpg lUXKOd6b6d 0u/Nb e5z+YcS3Cb Soh6C WxlbONvUuA ZW67c YE1YZ4h468 qG8Ra ZYgvwWcR3y 9S0Cl 7iET+2C2ff uBNvV T4CG4wYK0/ EGUy3 lqwQYjUf26 9gNs5 Xq0A1EI9v8 4scem YIn7PEaETA dLpkV kMXs6ph27y UDhue eYbJ9yHSeG vDEVh rtRD3bTZCI pFwc3 lVryaLEoSF GS7g2 f0oSejqr7A 6IUUT UiXlBvJLFL shqqu Q2bmZHOPgf mjjfy dori/2aLeWw tRzv9 DlnLBoJAbQ G9pRt jzlY5D58pE wy/7i MXqnAn5uoy k9+ba +5U4Cbl5lr af992 ebwfM7sQTQ UTWOu MyK4gC9NZF svlFU u8wFoLkImC nYttS Xu0r6KWDxc teLIC ch4T6ITFRj +SS0L QEUoPX3KqS MqJcN w3lyBNT26c HZthH F7UPX1UA7J EBdk4 foZfqpmKSr Vh411 oJPPX96BHR kSGoq 5J46uup4S8 4LZIF ryJea5KPaz K6kle h7abeTK4w0 +RjnK cSRjf5Gqfk Dcg3N wo3IcklGM/ uSUrK HpvkySMtiX LzDiC PoEeWoe7NF x3Qag plbmRzdHJl YW0KZ Y7ck5WiPaZ 0IDAg k4OfRvt3K0 NvbG9 eK3XmF4GkQ GV2aW QpH7DztE3H ZWlna XBgUfrbW4R idHlw WR9VyJMcQN 9GaWx 0ZXIvRmxhd GVEZW NvZGUvVHlw ZS9YT 9UbXAX6K0e pZHRo YRY2Xi1CGZ 5ndGg mHbeqDjy8t 1Blck NvbXBvbmVu dCA4P h0xfYQkHL7 KeJzt wTEBAAAAwq D+qWc AK8LVVAFAS B4G+2 OKjwplbmRz dHJlY N4QRK7ax5G qCjM1 XSWtj6EoKn w8L0N jcQ9eK3LaX 2VbL0 aUH1Idb7Rf IDE4I FPkPf6kM2E idHlw NF3QgQMeEI 9IZWl naHQgMjkvR mlsdG HiY1OeIYPp RGVjb 7WvC7Y3mTJ vWE9i ygTpcX7PFW NvZGV QXWPdepw1J 0NvbH VtbnMgMTgy L0Nvb U7tnfCrL8Y yZWRp U0SlerNyAR 9CaXR qLSCtZ87xk G9uZW 50IDg+Pi9X aWR0a NVfWPCrB44 hc2sg MzQgMCBSL0 JpdHN AEVQGf56ea 25lbn EdRU2MhdRz cnBvb NT5UQI7gtT lL0xl ukh7qRE4MI Q1Pj5 kiDZpUO6Tf Nrtmw lUVEfWx2/i JHMm0 bhGWRqatWV zwSWO E+PESEKMii ua0Tg aYjQRjQIaA iKgQN N00/vCqoCA NoLsi 4ACshnDJgF lURFQ UUFAQJRFYK q6kaX neixFZ45Tr 97R4+ t671Xd+tW9 /3vrC B1hqWHVT4c 5x2ec M0h5TZCAsv TElfK Hr65/12/Xx aRXhC TFjAoE9Ib1 qOf/y yGm2kO3MLA /NQv7 2Nz8VqFR1l c9NWm ZV0/Ps75Gk RfLFY g0GBxWuXtX oj8Xb T3HHuuFeKg +1few J7hBQesrAZ hRQIs FIOpguj8nb L3+10 fXz6BbZlFk JZWNY 96/hqbHqw+ Gw6Sj LO53sbhNFI bxM03 96WYUVVBV3 hCDyH 7jEcktrWUL c0CdD vw4sZcD6TV 8rCv3 BjZqbHmaml e12vI gtWBMux3d0 uRl3h JpnXbfIg18 /+qbW r/BT4SyQBJ 0AkNP 3LHW9pBz1V RQp4C oBPH4MCF81 ojYea fADFeYQiaf zJT4a YtDLEwmgxI 5ID7/ zUZE/JeZUx zo8EG Aq3KnPBkjK S6eJz Sx2d02o4HU ja2PQ PgVx3uJ7UM udVk/ Pm9qH2O7yk yRlQe igcAEJWpqb oXUBm T/DCAwYDrN 1f/3N wWIoWbsRYR 2shC0 OehkBOYNc7 /2xgC Z3WCe4XiY9 tfcdd 5Zw5VOQIrG L/YJd zqnyrrXVpC OPN/Y UoQsg2c92H DY+6Q F71gE6uNHK aCgk1 EY4wvxi2ju 2ujnW OmIuPrlixG h+ucO 8wjNtUKYJQ Bl+uv v/bJdUaDHk 4rICo mNoQi08y1t 615uS HUMq2iNKgz r60GB JAM9ZhGD9c iIFJj jRHtgj4Q+z GkJMJ Og9R26VIB6 /X+Fy N79Wdlk0k4 YUGMh Q8GXT1pC7Q KECHs YADAqRbC2w KVxPa ZqGjj05L6K RXCkl 92Csv+yfOy mJoCK O+zaXfp3A9 vInzd qjPaEgQYVJ lrDFH sl4xO+0cM9 0FqQj rInUHKBqWT Qpxtu X8pcbZSgFP PzCJj hjqXoLIHh1 rD97l k/idDYbj6k NS6za ghVHa24WQ0 vNOgy gOhGWHUiLv Oa/NZ 87p1NfIetQ wkUlH ED9U878p4Y iCGX8 +5iSZcTlFg wbhF3 IXN49Likcf +8L9S Bawc524eEA tPDUT CLDePtYJL9 B0s8U jrL9qF2v+0 /dlFg wIaPbGDCYT BgfrU 33D+uoOtZW 298Ic fCNNGIZgtI 64QW9 CgcYNk7egL n3BhL QDDiY5RP5n +Xsa9 DRbZa8Xt6v xCY6K Ku4hu5kUE5 KTL0u SVlt7o5+Kz rvwnO phBlw2sx5G vF1fI gEphQ/JV5n Kl1Mr 4+Q2Q0Zwv+ UNKqA wno/OKnmNO JN4Yi niISD4R5Rr dh4jF QEHE3o03MQ M40Kj wrRN8FOL42 OGzN8 qNq0yP5ZuQ ywRkZ hK8phtYod4 Wb2kS Dtiuoc+Bjm kTjlt nmXs2EFy9D gBIDq E2npsfPH7k 4pMMU M2cxnbVP5k wNJMM FX6yF6FqgA LRor9 8BBRcgOsdk lImvp GZwN1R5zYG 6ifxu /QJqLA0W2J BIA10 ezPEgrAja8 GuvGZ Eu8Yu+OmaI zNsWD QjM8ab9Mog JJr6g mq74U0QiyN iMEpj uBDMHhedn3 U9BA+ XegtlbA+QP NN093 aDCABLHyTd vhECj qB2rjaV85g BGO8C 0CEIuAaB4r qt9LE hM7VghGIg9 38a/h AJaiN2da72 8ZSHV Wg5S6diiCS HYvAt /CIDJzmg+8 MIdYk x60O+g6Yai GP6Vx N1Iy0VcKzU JFN1B H7PfyX3LDU qcj74 EKXLFP00L1 xOVL8 nNZBdmcOGg lspoi KH5aqlhGOp uDDNU qB4eFoKcAZ aCCkr /2Lel3He9k JJ/Az SYoOB6+0G/ DgA1C fsfeEk0Br5 fNADX UWVw1Jiuvc mpGBE b/yLFEYK6l 4YL5e VhzLSEGC11 iTo7+ NmAHAZ651v fnEKT uE4+l+Wlal +UiCr +Xkgy13PoB XTZuI IgwyV/vicE 3zIEk pMQX3wIfGJ Ou1Aq aakkv44nCc PWCE3 tjZsFZXeR6 0LO8k J3xcAOx+wq od7Ei IwkV+d4TDE 6MXO9 UNPkVP+5pv fU3Rj y7j/5UkcFR CqSb8 G7rkBHHEqm Dczk7 ULQBj5OmEo NH9rO +vbk6eQ/h8 hAIbb LbMErQUSNV Vxxf+ ivlXfrUAxC k2HBS pMrasznYNq 02B5n C+VEZLtDCn bj+oJ /9gP4RCd92 CwerA xECstrxDJc ApFxi /tz1SF2BWk 9I2E3 pAT53f04nX MHyyA d/janaImW8 Zk3yy rrRo+IHt/E Msrrb Ad1uEADfnE 6/aLL al4gq59g2X H5xRe gJYgG4+h9S Xq/Ce 8e8uR9BL0A Wa3dX W7PU66rgcw VIkJk yeWN9dbXNM f3X/t zciGCchlcx GOFni +XA4OgZ2QR GPD1N vH6CseFKV2 NiSxE iq66fxzFNo Grt+4 DgYZMtHJ/t IzaJt iSQLH6wR5K QHEYJ qRxPU4FSX6 5ENHm oNIXR16x8Y ICzcr 5gPbxZpg0Q TWS4r +tbZNtpFgH jVvoM 3YvT7as4sc RkZX0 yyLU4ZceYb ILuWI vwhFekduLp Iq8CP +qhCq0Cm60 mjoMI o+r04KeVhV Io88l FOK6MTUk+e pnXZ2 OvulAYmIFo 0Ttu/ 1EHapodr3w MzQ2H X3xmp1VKQ5 Aruqa CnFSgDoxyQ nAEcB GtTqJu0fno h3KaL L7yf2U6NpM J6fkV mw+EgmGXOy l/tqI hZd0p7fItA UTZMm JyOe7z+K9L V2e6W 6tylEY0WFA kc22i Lx2DXWXEF1 y9bt2 8P4RGE/Gpk YnOA5 40DL0cJxTQ 1+Cpm qY850gq667 IgrGv lyeAiUU6f4 jrdgU xR246zGAxL lamgx nnw60nzvBo xAitr Zff7PLcIuH 0Uh4I m+3/mCMnMO cYeyN Qi66w08YnF 8AkY0 js9eDHgvVg WdUdv ZGqiwRO8KF MSgkP vpSjz9XmQF iOaNF RGejyIsQmQ WldfJ 3+tqtuxOXC +D9w9 9Ynampa+rN nL97c blq+7q8yIm YIiRE YLbnJCO+vH URZQp e+cj4rrp1C +VFbE PlKGrpZ28J M+qja 1IvGXe6LvJ 71wum p0yM1n0FGR dD2oi M1V0BZTVeI LyqtD nyLeUCo9pU XJhGA XVKbeOjwXJ VpEXm jAKRh4+eiE 1pzX1 5RJLlnXKCq BapSO 144zJy1+Sc ciznk YqczxwkUBx FiBDo ZqUuOHr7q+ 0dvbO xFtHhmTkl9 7zQ0d GjbHsIJ7ZI 2J3MI Kt2cb8fzw2 vk13c 7BLDdVXDm7 DAQ8N Bdwst9vy0Z RoZIc UYeqJT18vC iL5HY akYTIePN0u 66/C2 OyS+JCLfO5 6X09C rLMPxatbmO h6/OG AoV7ESyT3T zQkdF Yo7iVVBAV6 i4GGj vUXl0BReVH H+PPF d2IVe6BWrY I8mTz +Tu1sibxxm yF9bh OFVrcHyjSo cwD0Z 9dPo5+iX0i Ja66T b5QD2ATJDi ZZ4ee QtbzOnRBwU 1Vh5J ZJVCjAUlRw I7tIQ icaIaEmhBx RoSME iKjqH0KkUy FiMSO mwSe/3R5Pk Xo0do ErBjoEkOVX up3IG k4JkqiTDyv 2S3KA 55nsJQYbsk PFnlZ QtmPoWcbXG 3mNQK cUCGP3H5nf yHb0z R+hqm9sh07 wJlj5 fBNecsuU3U QkzDa 5sFhXh7fEo C8gTI 3HOPW9VcT4 +hYQC vktd9jpY56 yzl3H vD9Tf8usul l6mXT hd8xj2IgzI 1EEB1 SwgOwkZ4xQ YQqRT 8o8SbkxIHk YgZfX 8bTFXZDWmr Pe6B1 5ET2dUpvlR iOjxv 4KNyq3rW6t U4TSN yU0gE0z1Kf 4POMh G8ncy16qWz gcoUG yaPci03Nyr /LGfD n+Gn9YlGCH +CJSd 4PlV8o1ISq StyS2 naAuBPD8MY p/7XW RufqYEo5X4 yksDF lZ3yOlIzgq ax6Sc /p0sdRN/LF NUXaU jstoyUvxh4 uoDw6 e80Ijj2qsY KyX/h sRPX+2Nxvk 3Wliq 6I29iVM8AP trHh7 7tUFarg8/a RftQe TguiFKbvGe Uy8Kt KAstCLjskv wR6Za HEGYJKnwie jhRGZ tg+TXkN/ax WC3RG LvYyQNqDL1 07BaX MjB8inYlJs AJCHF /Uiw8PrMjO 1yMhM +uuu5Frv/L XZ3dc P3a2dzNBMc rBOAy EUEhXxyU2M bk0jB ypHItGJdKK +sK6t w2W8jKvxjl VK8mP QyvFmIFow2 3YJ5w Bw99Qt4y4A 5goyp JKO2VcT+c4 htffK 994o3p3TO0 YA6+W AnQP26pSZf MY0cK LntgnemkDZ YMKgM 4TjeKKWj7R lrE9Z 56B5sUtq3p VpuHo nsg5IYbDgo y80jr XApuv+73ML rDyzZ KRM/98S7La gN8jc ydjgVIvW49 YHvOM BMwR/akHh4 AxMJu gnFfrB8W2j hIyeY laZN75EJ9x uOmxl 7rgBYc9QyA AXH/Y r15WKPWsei 9AXbz uhsEFbceXi Ik05c 93z7pUDmFw zQZ5g zkuKzb/Y9r a0NKV Yn/HGXGl11 lf/OY npFyS6CVOB f0ECW 7xXiSITuJX FR4ve jnGxjEP0yJ T5XbO 52HnToeDKw LKBrr /p0PGX6CQg ISUlq LtZL4PC54T hvSEd W79KTs22UN /6/dg aVFFf8pHIZ L/Oze +/oXJjugse rzcML IJAEg2wrf1 7Q/Li 5VdXNg7y+k QVTXG UBhR2HEETQ uIJzE g8yrWPfi0M Gx6ZW p8BEJ/joqP H+8M5 CxCXTpi2EJ ApMdT 7IXb9b6rWW vmYj8 tOW4BAi6k6 PHkuU 30CTht+ozp pq5GN 2UE83LZB8/ SigJG cOh0yKWjhi RP9ca zlI+mUX3t9 kfX4P JbOvzS+0rG 1HUt0 DJTcpGptbd lHOTT n3WVoGUpNi Io+lP 6yheX42r/H s3z+F vQR2pjBVot x4fP8 mbWlV/XuLe Wj8Hy pypgO7IP5f 2dQ6+ WfX/lfvo2Z tsU0J TiiVeO/SXU JYyAZ wL8uJJ7lu9 r7Isa +xTNzlnNF3 7wH37 B8c9urMnoJ ddaro R3rQU7hCmL 1+Alek sP5RU1/h0V O6Eev ZZWXy73H4l hO97i 3xhNgNLPyL X3jtF joBVTFjpj7 /M1aI iV+3C4Ztbo 2pbYD 1cLx9lUZ+W vOuw5 rrWTdwCl8o /e8AC PlpUlKBLEj E6p7R 0a68O2g/1x B8P/O 0IKLqorgxg nJZeQ +looz9pRoe OJ1zM 31zel/vCqu 7VQ8/ bY+yO2/lico VU2ND 9gR7OUECgx uNt5X XzTB/UWkVd 13Kh6 CEpUnJXosY 6dyGx rf/oWkbeH5 FHf/A rl11FYlqzQ 4Dp+q rtve9moKNe s0D/W GbCqlvL2Nu TtgQ8 J90ZRlbC3W ALKbm gwiQLKZEtO 8pvS/ 1lWhT1G4iH 552ot Oitrmt+snv 8PlvB G8PgnhdWpu HJlYW 0FAH6uy7Gu CjI4I YZpe3EwHxk 8L0dy o5QyRGfmFs 9UcmF sf5QxnvZpD 3kvSS U1xtYlV8af ZmFsc 1WjM6TbVHu gMCBS Pg1uT21qoO VudHN bOCAwIFIgM zYgMC BSIDkgMCBS XS9Ue IGmV1AqS8A vUmVz l5NiA0WcDT wvQ29 ut3TGsJSqQ Tw8L0 EbSgY4sCJO R0IgM TcgMCBSPj4 vUHJv H1JkrIIzN0 BERiA fSDK6zDSzL W1hZ2 RFYF2LePIg ZUMgL 7hnNBfsIE3 vRm9u tZw3P3ttEz 8gMjM hAJZKH5zuA iAxID PaIn5UGYk4 IDI0I JXzBg2ZOW7 iIDI1 IDAgUj4+L1 hPYmp mZ8O3AH6tv TEwMz YzMiAzNSAw IFIvd WxcJXO9BwN gMzcg MCBSPj4+Pi 9QYXJ lbnQgMTUgM CBSL0 4yJNvqBz49 WzAgM NL3PCHyRuh yXT4+ PbSjTK8vgl ozNyA nGQ1lmxw0P C9Hcm 46hHc1B0Lv VHJhb nNwYXJlbmN 5L0NT Zz1GN1QOAR NlZCA xOCAwIFJdP j4vU3 ZtdVdqQI7H b3JtL 9DlxDZimi8 GbGF0 MCFcA56wON 9UeXB cI1dXBgrzC 3QvTW V7fwn2MeQe MCAwI DEgMCAwXS9 Gb3Jt VHlwZSAxL1 Jlc29 6ioXaggo9R 1Byb2 LAMZPdD3PQ Ri9UZ Us9X0fzWLj lQy9J bWFnZUIvSW 1hZ2V VCK3ZY9IbG WN0PD hrlA1oGML9 MzIgM zUgMCBSPj4 +Pi9C Zl92HeHtDU AxODI fCawwC8aep md0aC AyMD4+c3Ry ZWFtC nic08/MNTQ wNjM2 UnDJBwAUBQ MICmV bXRG3ouZkg Qplbm RvYmoKMzYg MCBvY moKPDwvRml sdGVy X7JeSLBkUL Vjb2R qJ1uvsxy6f CAxOD D8Xf5rdXNf YW0Ke Es8Mfwct4X Ufs+v 2Jm+SDMV3g u7sOm TbKmxWttyL bWdTN MLVK0mmZPx Aur63 /cAYkGKoQH Fikcx IJZzzne+c1 uM0N+ IuBRh+KES2 dLiyK ER3ntRcrhF m4t4R TATzEajEP3 yLr09 f7arpaRrvE 1RwjB cfRv0uHAhK fPZrd DFtboMEXw7 fzLrM CmFlyJgM2W mmz96 tw/fve//ie Y/vUN uJR90CURXi +HfRA 0Vv8yOWgdC pRYx2 4EzaH3F/w8 i+EiM GfL7QjFbRF IkiPt fTS0Z7CrxY vg0Ua 4ZWfH8kFV3 J7Hld aNqAi44tPk Fkbcr DZadrkMu2o Li/FY b6lVgp3BmD cRq1w zvKRrdjIej y/F8P b1oEx1Nc8Y P8Ml0 /a40PFtA25 a1enD UW5Ajek0O2 1Mbz1 f/4wHsdPex zQuDH iB9RSIFxq1 t6sVm SU0gdHH8pA pH1v7 vkRakSTH5B wRfEM lJPXYYnwqe cAu8X wlBntX10N2 jr4Rk 7Sfu98lf13 Jktf6 wf7AxDFWMC C9pef exOCJUYDJg 0nYa/ XiSRjfTqyH IB13m k+ldUyoSaY o9Sdb fXfyB0EqPA MejZv CrzYSjFl8V 5hnUD abZIvXrKWL 4BWEX XDDdwq2kKI cKGU1 cH7vXnh/jJ i8h17 BL0MxyEU8W NI3bu BeXSeXvREX mdDKq pb4dL9r7VX HhUGa ThoKVVsRTB Nyn5k A9hylGR6Y/ L1YXc 65P5mgg1pp FMlDE nSrKKFl2W2 G9Pxm G0h6KCdVnN H1XA4 SumGfn8LLz gudrb ZjgYtomA1G 2Hosw fO1yYFUcQ3 2EG3R Pv6dzdSoQe PCUlb HPBIL4CrM9 GBTfP q/2Kb2pXn/ dQkug GqYMt2UnEJ Owr5P ZFQLNhBHtB WbBLA YnFSe+l4X0 cx8J3 YZKVP7Rk2v YmOfs zNIgNJZAk1 IaFSv QaFlPbeIg2 7VoVy dy2NAcGbjU mt/6y ggKlKCDs3i 2rTw/ NpBOGtG/9Q Jvpao RYzjaW3V02 bpnjj 6lTeKnfnFq M2fAg XMMZo81WLI DpHT2 hJmBX1L7v8 ZAF+u 53teU5OyrR 276uF 6hTZRNZ4aj Yrg6A OzU3DiFL7p 1t1sZ aGbJZpNZB4 C8fKF vNcFbrnDSD v9Q8Y FtEehUBpRa VEq0Q RwcLCA/UEs ivzjL f/nF3fn/Pl rDo5/ V5jvUMlwaa fgAvz jcj+Fx+dGA uBbJn dVdjb9vwra 4lTpy 5uwVgmMoVE y60nW Kdw15EwDtd qZQu1 ZPbhNLwEIo Rzh7u Nb8WiIerGb DZV5R 2dnmHYBdn4 RVMF5 wKUlxrZumX /r/VY CNB/wjgjTp ShzrW WBx4yywSbB kLaGY I5d0aTQKXT MAGY/p KZDXmpE/UL vqVo2 sJZ1LdIBqC abcVt F33i4uQvhy cH+t/ IEnznjquK1 AmKhl lP06BAlB5O dLgb2 WJiPWjDmO9 iNrYA qRRkDNK1mv 3BY1L SfrBsQq1of 7CYPC cGeK5pc9V0 aPyKn Y3XDGYGcvc vZZ/v 3wBUg9Lc1s EjzVU xcLSpyTIqF C2A77 h4OvwcOLFl 5j747 DsWHTQRmVh dyR2W 1m150r3F0G ohuH+ zwQh0ZcPpV ddtgd ykQhMjN5Ws s8G0U hyMM55ob9s E6jVJ yWq3lcJzET ITSRc cq6tx0CBe9 K/bJS Vs3AaotC5W OUdoD E1+qx9v2w/ A6WW7 6q4sgYSeTW ED4Ex q7MVAlPXt7 8nNzf jkdlE+PVhN rn70M pGzCyHnCEM bAnlk 9QPapjbd6N hNvE3 xVIB70y2xR hFKoo OmtxgeVFS4 CqdAl tn0XXfa2uc b78pH T8ArmVoHyk ZhX64 qq5qWiUoAY 9AKKe B+dXXfF5Oq gT7PU 9cSTkOfmtn M7cjJ vhoWD3BaNr NAx2H B3AGcDgMXY PFwTx 4nPADVczN+ wXZTv offA9ytsPq amsa9 LcdeNxWChY d2foW PFGTR45h0d nS0KI w77wo47e5o LU7Un o086dXOVpa D1msX 4am3msxgM/ aKObY 46k9LTQeGA 0uNzr DHRhRk2Or3 VE6kB Ba2cWf/WIO S/pMb gxi67898Ea ztTBO c3FryF47hv J9uXe bQV53dI2iv tGmlz wJ1Jn9n/bM 1taiF F4iBr7KHbo Ud+Rr dQ5+o0LGsD xDEqb R6LmGwtYvM QzrhX nz/S8MjEEi qOA65 9dg5SLodLX XcEKz C56SQTe1Fk WlnHs v/LQpx14HG flG8q bQNhK56XSe 3oVpd fQLL1UV6M6 S3ytD Td2p0qBfLm he2sw w2P4tbYts5 ijrOj sgkrnDj8Ll QgHad aSlahpu0Fx PWVtB h3H+3rx8AP nXyjt +5/hjlig97 Sdlte wXTE77O7AZ BRDpy LQGWPJMqSp /ReP7 Ok6ik/AgTt cRrC0 cojcB7YEO9 fR+dJ b50X3F76vu 251mo Ody9ejd/Hr 8cGB3 A8GJlZyeQc MLTAI o3/y1Q+udR oLT11 eAQfudxuuP s8nV8 MbUH/DE8P5 jlo2a S89/7zQbqg plbmR slLCwOH0HH W5kb2 YcGvK3TGPv b2JqC gb4L6VrmN6 yU3Bh P2RtCMR1gZ NlR3J slC4DSClqx HQgMj dhQ4IhgAce ZS9Jb UCiCG3ScAu 0ZXIv RmxhdGVEZW NvZGU hYXntXR3MQ 2JqZW L7W3olXSNy IDE4M d2SUK0rlOt gMjgv Zji8l2Koes NvbXB cktWtoSD5E j5zdH QwNB7JgDon wTEBA AAAwqD+qWc MH6AA JPTBFB5E+2 OKjwp lbmRzdHJlY W0KZW 3kf6RfOfZ3 IDAgb 2TaGtj6Y5C vbG9y F5TcC1ZpK5 lDQ0J eq9YuOIO1E DAgUl 9oP1LpeRem ZS9Jb NCmRG5UZBj naHQg MjkvRmlsdG VyL0Z sYXRlRGVjb 2RlL1 Z6uHJpWR9o amVjd K4AGJMbHAK QYXJt xvc0U0YtcX VtbnM wXAgeJ1Khs G9ycy RgG4RdJSTx Y3Rvc pZlHC3YpVJ zUGVy U11ytV7fSH 50IDg +Oi0QcQI4v CAxOD XwX20iu9jd MzggM MFOJ6NtvFB QZXJD j55dw15mjs QgOC9 JbnRlcnBvb GF0ZS E2neHvW9km bmd0a FC0HHC0Fi0 zdHJl LE0BtBvgsh lUVEf Wx2/iJHMm0 bhGWR qatWVzwSWO E+PES TMWugcn9Hk aYjQR jQIaAiKgQN N00/v CqoCANoLsi 4ACsh nDJgFlURFQ UUFAQ HPWFGj4sbO phkbR E84Bo06Y8+ t671X d+tW9/3vrC T1vzN AUE9k3w7wu F7s5N LVYxeTElfK Hr65/ 12/XxaRXhC ZXxGd Q6Ss1mXr/y wHa6w L0TYM/NQv7 7Ad8L fZL6rg6SUo ZV0/P a05JbZnSMD x9DLe RmShZdj0Dh Q9VNw nYcSz+1few W5hYY rjjJChRQIs DRNao rg3lhE3+10 hQp4I mExTpJZWNY 96/hq bHqw+Gw6Sj MM15z onKSMxvC28 94EMH NGZZ7mEEaT 7jEck daPKQj5JvB np8fK uM2QQ5fPj8 BjZqb Gvdwgz97vD sqDNB pz1w7gKc9n GppTd rGl51/+qbW r/YI4 IlEZQ9KsRI 0GSP6 jWw2XCAk6C eAOZ5 JOE81lnHda fADFe PHdxnmQJ3a YtDLE avevO5VY4/ zUZE/ EnAWgia9KP Ht5Oc EXfiGA8cLn Vm8a2 7t0ANhn2JT IsKc4 rM6BYhnDc/ Tf6aD 1W6sdiDiOs igcAE JWpqboXUBm T/DCA yQPwM6r/3N wWIoW fwEOY6vaQ8 OehkB OYNc7/2xgC Y5QEq 3SrM3cilfe 3Nx8F AIAuRL/YJd zqnyr rXVpCOPN/Y ImLvm 9v23WAZ+6Q O02zJ 4jCYBpFcj7 FY8df hn2il7mltY OmIuP rlixGh+ucO 8wjNt UKYJQBl+uv v/bJd PrWWx6bWQd sImEa 33s4x521tA JFIx4 aKEdtc54SD DHM8Y jYZ1xxCZNo tBQbu f3E+zGkJMJ Wy3T7 1JRE5/X+Fy L93Sk bo1g7KNMVf J3HMR 8rB8ITQAFn METHc ZyK0kUWeMz NzRmy 15I5QYEJvh 92Csv +yfOymJoCK O+rnL hx1T5cTjab qjPaE gQYVJlrDFH sl4xO +9fU47WtFj rInUH KBqWTQpxtu C8otq ZYfESPzCJj hjqXo MFKr0oX41f k/kdP Gdd3xRY8zc hhESm 07JB6kJNio gOhGW HUiLvOa/NZ 80v4E lFzxSwkUlH CN2D7 10r9BeMUS4 +5iSZ cTlFgwbhF3 YPI48 Citvm+8L9S Cnib1 19rGZtPDUT CLDeP iBKR7X7h8S eyT2r K9o+0/dlFg wIaPb GDCYTBgfrU 33D+u bVyFX628Cp fCNNG XNstH27WE7 GyxGX d5caIx5JzQ RNZaR 8IE5w+Xsa9 VPhBd 1Xh3iiKX9L Zs4jm 0dRO6MSI3h MUcr4 i8+KzrvwnO gyYdr 6fo6YqX4pX gEphQ /BD1zTa4Lm 4+W6C 1Vrj+UNKqA wno/O BzwOMMU8Cl cvNOM 9C9Rcdb8hK QZGD3 r67SXE27Nr ekQE5 MBP55HYjQ4 iCs9p A0QcGybBjN gV4py iAwv0Bx6mA Dtiuo c+BjmkTjlt anLn6 KMw7RkLDTc V0bbt nCK6o1sTOV Z5jpl wPF9vqPLAC EV1jA 6HdlAZUlx9 8BBRc gOsdklImvp OZdB3 I5dEG9bdyl /KXyZ Z9W3AAEX57 ezPEg oEse4HbpFM Eu8Yu +OmaIzNsWD KqM8c n9SxuUCr4s yl62J 2TgxZiMEpj uBDMH shfs8Y7RS+ Xegtl bA+JFTY424 aDCAB LHyTdvhECj wS6tq rF93cFHO4X 8EHWx AtS7wht9HK rQ8Pw cRCz185v/h OPqgC 0ec573DSSP Vf5Y5 mtxWMHYvAt /CIDJ zmg+8MIdYk x60O+ o3TxsDV6Rt D3Ml0 FvYlWKAO9D V1Lcr C1BTWlbb13 QDKJT Q76H2nGYY7 nNZBd mcOGglspoi XJ3jx hoBGeuDDNU nY0hU hGhBGaCCkr /3Kof 1Ey5lBZ/Az SYoOB 6+0G/DgA1C mjxlF v0Uq7sUKSK MOZw5 UekoempGBE b/uUR EYC4i1AN8b QlyTC HCR24jFb9+ FyRPP L179aehRPW uE4+l +Wlal+UiCr +Jpuo 59GqFXTZuI IgwyV /fnrC3iQWp bSCW8 tAeYLGv5Vw ccujx 92pZqHODY5 tjZsF PPfW52PA3c Z1neT Ef+xqvd8Iq IwkV+ y8AWY8MTL4 UNPkV P+2njeK3Ea y7j/5 UkcFRCqSb8 S1ftI CYTuuDczk7 XZNFl 1EfXeBS4bN +vbk6 eQ/m9eKBhk LbMEr QUSNVVxxf+ ivlXf zOXrDs0DFV pMras yeNDq41R8l C+VEZ LtDCnbj+oJ /7hT2 TEb88VozpB xECst rxDJcApFxi /hg4A P0WSs5I2N4 vHD76 i46gRXWloF d/daniel aEwQ2Rq4lz rrRo+ IHt/EMsrrb An7dN HAkyU6/aLL pn7pg 31b4BE8fCy gJYgG 4+h9SXq/Ce 4o3pM 8AE5RBl2hC R1SW8 7dcvoVIkJk llVJ3 nqLAPc9E/t zciGC chlcxGOFni +XE5F eB4EAHWM6A oT2Xf jJES1WjZyH qu83g ipTApGrt+4 DgYZM tHJ/tIzaJt bFYND 7yW2ECIIAD dJsPS 5OTZ17WEZf sIOHU 80o4RYGrqd 9kXhe Olb6XUUX9v +tbZN tpFgHjVvoM 6IpP9 ri4ycNnLM1 ihHZ4 ZgkFyILuWI vwhFe tzvOcSp7PD +znWf 0Zm99azeZQ o+a20 DpTjAUv31r NFJ0U RAq+epnXZ2 OvulA TnADg8Ccs/ 4LMwm ewt9mPsW3C G9oan 1PLG3Pewtf CnFSg DoxyQnAEcB BdDrC x2nrvn7QyL C2mk5 X7UaGJ9ssM mw+Eg mGXOyl/tqI qKz2w 9qTxLUTZMm JyOe7 z+B9IF6p7Z 8xciL O5BDVhn60p Vg2IV LEXF2w9on3 8P4RG E/GpkYnOA5 81PJ9 wTjWI1+Cpm mG238 xe482BkaQo thkGt MI4f7gznyI lN812 hOOpAlamgx htt63 gdiNvxAitr Krq2O PkDhE7Ni4S m+3/m CMnMOcYeyN Fa42x 15ZiF0WnM3 ow9fF RjiXdWdUdv YMzwd TS9QCRXoxH mhTki 9XvDAiOaNF RGejy IsQmQWldfJ 3+tqt uxOXC+D9w9 9Ynam pa+hKvR49b blq+7 u8qCcGKeXZ YLbnJ CO+vHURZQp e+qq0 sqp7L+VFbE ReRIv jG17UM+qja 5NtBK i5YsT66pcp u3qF5 j8THUaO2lj I5I8W EROrKLyqtD ieYfJ Hj5mBSNjAY XVKbe OjwXJVpEXm jAKRh 4+lnW8mcA5 5RJLl nXKCqBapSO 181jF i4+Scciznk Yqczx wkUBxFiBDo EsWuI Yj0l+0dvbO xFtHh aCqh14eJ8r DcpLj IS3ID3O0LU Hd3tw 5cus9wt51t 2CMSk QAPq4POW3W Urmrj 7dy2KSiRDh UMkfR Y83nMiP7MH cuPSF rRN0l76/C2 OyS+J RIeO84L31V rLMPx atbmOh6/OG JjI3N BvD1MvFojG Ar3uK ZYCO2h7OWn lADd1 NLxHJH+PPF a5QOc 0KIyFK4kLm +Lb9b irltulX2cn OFVrc YteSrekU9G 9dPo5 +tJ8sTl40T v9OK6 CCQTbQH6nx QtbzO nMTsC6Ev1U ZJVCj ADpGiI9sDT icaIa EmhBxRoSME sNguU 9UaOsFiMSO mwSe/ 7K8QqUy3id ErBjo AlIXSrk8MQ z3Qrj wAZgu9R6FP 55nsJ QYbskPFnlZ QtmPo PgvBP8gZJA eGDJZ 0T1qezPp6o R+zll 3sd88mLrt6 kVRpe pxN4XYhbMh 1zReP b1wDwP3kET 0ILHE 6LqK0+hYQC orul9 fgB80fcu8W xA1Gi 6peory3aVP uf9cs 6MkhH5DLW8 TsyHw xT5nNLQnLO 4t7Pf ozADoYgZfX 8bTFX PBXpvDw3O4 0WT8a VshqZiOjxv 7GIlt 6dY3uK6TCO xN1sN 3g9Aj1OWBh N6dfy 33iCngcoUG vqJem 88Mct/LGfD n+Hk6 TsPXO+CJSd 8WrR4 l3RTmSdaH8 txOnM PG9QIp/7XW ZhprU Je5N2yfaAJ bK0iW gBuktfe1Ae /p0sd RN/LFNUXaU jstoy Njli2kvLs1 l00Gb t3clKMlV/h sRPX+ 0Usxk8Kabb 1N94q NX0DXiiPf1 2zIDx hx8/aRftQe TguiF ZadSkRl9Ih KAstC FlbceeN5Zj HEGYJ KnwiejhRGZ tg+TX kN/gfOK2UL LvYyQ ZbQE241TpD MfU4g rCpSwAJCHF /Zmw1 CbNxV2pQlM +xik9 Pah/LXZ3dc I7h2r qMBAbrBOAy IAZlC asX1Soi0eV ypHIt GJdKK+sK6t q8I8r KrnolYG6jK QyvFm KHam75LX3y Su88G h6p6Q6ywux SMM3K lO+y1riqpP 032k1 v0IR9NG3+W RcCV6 9uXCuCM1nX Lntgn emkDZYMKgM 8SsvH HCg3CukS1S 38W5t Ein1rBjaIv owx3E OqRgna36pa XApuv +73MLrDyzZ KRM/9 7V8TydN8pf kqplT HuV70RFkKE BMwR/ yaNw1CkRTi rmCdx L5N3btFasR fvRH1 0FM4qtDzcn 4gjZN w6JoBTMB/Y v93AF PTeev2FAif uhsEF okyGyHh20s 44n3g KSlYifJB7l zkuKz b/C3es9YIN Yn/HG GNv39bx/OY xcVjI 0BHDKf4UIJ 7xXiS MQzQQAT4ev tbSzz AZ5pRO6ScR 52HnT oeDKwLKBrr /e3ZK P5BDdVWXjc ThWQ3 DU89YwzSYg H71TR g38HA/6/dg bBVHf 4hFVTL/Oze +/oXJ jugserzcML TJEOk 6pom74X/Li 7CwVQ d4w+kQVTXG EBvW6 AZPGOuIJzE y0uaK Vdq8WQr9UM p8BEJ /joqPH+8M5 OvPZC sl7AJKnIsQ 3ITe7 d3xHNwgDp5 xCY4A Yf0s4KLykU 30CTh t+tedjr1PN 2NE17 XSD8/SigJG eXc7o OQcsjVZ3sb zlI+m UQ7t9fbH5A JbOvz S+3bM3UEq2 DJTcp GptbdlHOTT f2QQy BCnXcIo+lP 0aciB 26l/Hs3z+F gKY7a ePMpso7bX6 mbWlV /IkGiVg7Lt zxsvO 8TK0y5sR0+ WfX/l kfk6BdjB7A TiiVe O/SXUJYyAZ lN1jA P9gm1m4Grw +xTNz fqZU98rC12 O8d0y wZvdGddaro O7uUX 6hZfQ1+Alek sP5RU 1/t3OY4Uzw KPCUu 14R0kkW89b 3xhNg YDIxLD0wrT joBVT Fjpj7/M1aI iV+8R 0Cuhx3qtZU 5vLz0 lNU+WvOuw5 qcRTf xAl4r/e8AC PlpUl GATGzX6z2D 6s23U 3z/1xB8P/O 0IKLq orgxgnJZeQ +rqal 5jNexJL1rQ 31zel /yJlw9UP3/ bY+yO 2/haqSU4DE 1uR7Y QYQjfmPd9Y XzTB/ GQfBh52Wf3 CEpUn ONlmF6puCz rf/oW hkuU6QTv/A jm04H YxrhR3Le+q ccai9 jePNhp9S/W WkVxz zD3BgRdaQ4 H31SY eoR6GVGWta gwiQL VEXhH3npR/ 7eIvC 3G3hF103us Oitrm t+fkl1UatI G3Qpl bmRzdHJlYW 0KZW5 ce8FkUwS1B DAgb2 FzWri1Z4ks b3VwP FunVo1KkfU uc3Bh heNdT6crVU B0cnV iC6hoEzWmk 2UvQ1 MgMTcgMCBS Pj4vQ 29udGVudHN bNiAw IFIgNDAgMC BSIDc iMEZRYB1Qs XBlL1 IjI9VdCgRe b3VyY 6AxHAcxG51 sb3JT sIEkXSv5X6 RlZmF 2dXAAM9LpH TcgMC DYQg9gJMIm Y1Nld TQyA8VUSoW vVGV4 yYXfGV6mM4 VCIC9 JbWFnZUMgL 0ltYW ecKJ7nZs8p dDw8L 7chGq7eBrO gMCBS Q9zaSfYdAP AgUi9 HUWf0BIO7R DAgUi 0FMX9qCJK8 IDAgU j4+T3pURcz lY3Q8 IN71DoGlXl YzNyA 0MSAwIFIva W0xMD R5LyUtQwui MCBSP j4+Qt0JKJI lbnQg MTUgMCBSL0 1lZGl rMj64HjAhF CA2MT IgNzkyXT4+ CmVuZ Q1uxmf6GCT wIG9i tnr2WH1Mij 91cDw 0T5CvTARjh nNwYX VpnuE2E6XT Wy9JQ 0NCYXNlZCA xOCAw IMSlJr4eV2 VidHl pZC6Zn5XsX 0ZpbH Poxq3UxMM0 ZURlY 55wBW1UmQU lL1hP EbecZ4VbPQ F0cml 4WzEgMCAwI DEgMC RbUG2Vh0Ws VHlwZ CWcM7Xbt27 1cmNl aaa1K4Mkm7 NTZXR xT8YMAz4WU Xh0L0 hvMHpaIj8F bWFnZ FPsWP7kQ4Y JXS9Y B3XjMQD2WC wvaW0 gIVH4FnCwV zkgMC BSPj4+Pi9C Qm94W zAgMCAxODI gMjld W9jlgmt8bC AyMD4 +e7NjRFSfH nic08 /MNTQwNjM2 VXDJB wAUEQMLCmV uZHN0 cmVhbQplbm RvYmo KNDAgMCBvY moKPD wvRmlsdGVy L0ZsY FKdKTHow6X lL0xl lwx6eVVhJB MxPj5 phBIbYJ7Nl JzVWm 1zmzgQ/t5f oZn7Y s+ciSQQSLl Pju02 viZxzvFdp9 N2bih SxXEwaTU5t 39/Cx aNHHQQIU9t MmkMQ eyzu8++SUX oGyKc IgzfVCBDaA xZ1NS YIQTnyFmdR QuCdV K72DUGk9aT H08eJ kjHJrKYoVG iY6LD o+igjgEU8s 9mgc4 d8WCW9X+ze 7UOo5 4YoE2QuJDP 6lPne vrLefcLmv3 +BqHR 5H2yVX8oSj sROQS +dB2iBMvUc 6Qbmg 9Mh7M41vMD e2Isj rGCUL1wfw8 fdVGP Ssa9gdBboP tR3GC IGfXIjU2EP ONNJf gCXPbu9NQs bzKFL jZBtJSbMLu +lnPX bk0elkT0JH 6qzds M3mErE0zDz WajqQ H5LKcF25JI gvXX7 VGj4D7TbqE gOmtr y4ok5SLaF2 Ynf+A XhMJ1ncVdy abSns di7cranUDl iZXbS E8HOlxkEt/ /dkI0 RgoSrDOCz4 hgpNx 1NFv8ttmuc z12EQ Ii5sPhQx+Z Qm/Oi NsuYrgTbBf Lf1Jx io717HWGms refMw +CRev2pNIB VX6sR Yyz1fzV/IB y2w8u alKRWacYlv JuhuY i8K7hvPSp5 fV6nH dLckVr5ixa NQVqh sz3Ma4PycZ 0c8op axeQ5SjRdz Zju8G l/1zd7VDsl Dnmkk bSpjKdRCnc QN3oj rbaJqHAV3E h+XSo iSGlt3OyEc VDVJR uQCH9UlUrm weRJs LNWiu+GdH8 mzmrm D3vuq59adK ilgpR xQgAp6rrVo Xo+Gs evtq6OxitZ sBwWJ MkqzCCf2Bo 5auKs MgfZfdVM57 OIEf2 f8xFs3i6Rl 84Ob1 bv2HoxDQ72 8nZS0 vOdJyYng22 LO/Pi ufB4qqBn2n Q0sgn YLJt/5cqoZ hVyeT OxTeVXEp3p WCuwi xqY22hgCAF 11k4o 6mqHn/NJcH W/Wej BrfT1wWtAC ypSIJ uNhr1PVYVn hGmzp iXx43SWbZs fm1J+ 1QPnGEcwja pbS9S Aq0DRk3d9p 3F7Lo 2BDh31uDP+ /b6tP yaYe73Q5tF d3q6c BSrZKODALB IkJYO 5ojwH1y/Ut WQBfL etVkKMv4Bu 03+bp qbb4ehLwAb THc7Y QgHum1qc2l pb1ZK NPcbVerRDs wyOMz pVLJo1JTow v8p8B 7hkagU+lRq lEh0A oxcLAJ+YFq AnnZV ucCp82J//X QEl79 kI4aSfheqn /pO/j Q3DgEi5m/9 QjXSP VZufh2KVou wCMxM pipUkDwGQq VLrjg bcVjIP5n6B I1Gex SnMwgmgkLo Rzh5O XqsiXiotlW T8EcA Gy3EZStxZb MFZQ3 mMVxt0kX1R P/HzS x5xW7I5Wer MTS9q Ifjh8oPeYH XEIxE 5wcHVlUgAT ATA9E VmVO+kyNrF /Zy2Y yHOdYUb4PT VdQPw bmXUiYI6AA 9f3Wd +SXsjf4ohy 3HTcK DxSBZbBSwR /aaSa D8XU7JyJ7k kPyZ1 BEtmlqrKEg DBLQl mLoOV/Xkky YQEiB iagraLbMau RabiP JTb3Bz7ixW o4Lpq 4DhZsaBqce Sssvq wYQXzB9Hl2 nkNfv 3uV4b1BzWV kOUGU 2ovOE95TG8 OjG43 FCyRpKmEbD CKhrL iQ9DVB383N KztK5 jamR91e7VW 0MkLm akbSusjptR sH+8K yS5huYyJif ZQRGA eET3WisLpa kMPjz YsmMEoB0y2 T07uf KXI6m/duPC YHP6x nX18uCFjBY Q0D9I 03o+T+pBAa nGold y1/wfpvA5S oR9pO St5R7hwWFI Jv5d7 lg5wTiLfND SE3iF HnYgNREGuX hskKd ErNYrdXIF6 hhdAX jcrInmBJYv iTqff pZgF0EFgpy J356s O8ofhBCn8u YFBht olE5KWl0z9 gHdRL HlEI+zitXt r/Y2g l4YwyYrXpz WSd0P BpdiPIofkl Pwdzf MFx/prMqUR /nr0G w8N3I/d7KS 3WMRw qHMPTSca1j zqtdD 0GeQbIHS1H dDyaD fv63qJv41W bT93W XvX7A8X4IL q0bQu P1a/VV4C8U O2W2b af2/QpbkzC S+DWb 0JjzNjh3F9 Qw5Rp t1FuOk+1ka OSe7F TseJ0IgXDU jG8hV oMLj6OfkZ1 4Mnx9 6tEEDf31Nf l7Obk fjI1vUAwti JVX3U 0/Ufa3FhvQ dMxPU JuwL482UAb po6ny mo5Yvd1zP8 j5HjV 0p3c/aNnLE 7iriO FLOZfzV/c/ teJz5 tgY0ZGlAw0 YW8Zu YBTYUXmd22 e2UfF j7g2VVbncO xntKC J8LpKd8iTd 2UVN4 8D7ICWMMKh pUF61 V5oE3ACabi MI46D mktPoCrG4A DCvDL /UURFyJolV 1F/bl hXwWoi4ggQ MoGLE XsnzmrCIiG sGzw9 mae6jGb0H3 Bt50o i2KanWx5S9 Qnfh5 j96xeHZ7iL ZIgy+ T6Aqsku61z clEsv aa1/qIUljH DJdeu hux5M5yd5l 9N721 tjk8O2rRd9 5NPwf Un/DHQplbm RzdHJ aWO1NUN5cd 2JqCj N9XBVbd1Dn Cjw8P h2IHK4fa4D qCjEx PDDqd4DgZb w8L0R dw0LwUZCcC DAgUj 4+FlFpSC3d ago0M sXdND1bdjk 8PC9E WzIxIDAgUi 9YWVo gMzYgNTEwI G51bG ynKb8NKR3d b2JqC dR9QUAwr7G qCjw8 O4FvQnGpWZ BSL1h ZWiAzNiAzM zYgbn VsbF0+Pgpl bmRvY moKNDUgMCB vYmoK PDwvRFsyNy AwIFI kLCimEHT4U DY4MC BudWxsXT4+ CmVuZ X6oqqy8PrJ wIG9i usg2VE8LWd IxIDA xIo1HARqjO zYgMz F8CI30cQff Pj4KZ H8vd0HiWaW 3IDAg v3DgKjz4L0 RbMjk sKVUJW5mBQ iAzNi V1CLBprsAr bF0+P gplbmRvYmo KNDgg MCBvYmoKPD wvRFs yOSAwIFIvW FlaID D9EOT5EJMr dWxsX T4+CmVuZG9 iago0 RGEeSV6tep o8PC9 EWzIxIDAgU i9YWV ogMzYgMzM2 IG51b DbtRg5DIG8 kb2Jq CjUwIDAgb2 JqCjw 6X3ZrWbfyT CBSL1 hZWiAzNiA2 ODAgb nVsbF0+Pgp lbmRv YmoKNTEgMC BvYmo KPDwvRFsyM SAwIF IvWFlaIDM2 IDMzN iBudWxsXT4 +CmVu PH3herg8Tk AwIG9 ealu1IG6MK zI3ID AnFh6FYFji MzYgN eqpCS99mYm dPj4K TY0wc2VlYq UzIDA uw8LfXos0H 0RbMj TqZFOFK6qS WiAzN kA4QTPexcN sbF0+ PgplbmRvYm oKNTQ gMCBvYmoKP DwvRF syMSAwIFIv WFlaI MW6ANM9ZkM udWxs XT4+CmVuZG 9iago 6OPOwUC4dk go8PC 3WWfW9ZTLp Ui9YW VogMzYgNjg wIG51 zEybDr8GGB 5kb2J gAaY8IPHcp 2JqCj t6E6UpAhNd MCBSL 1hZWiAzNiA zMzYg bnVsbF0+Pg plbmR vYmoKNTcgM CBvYm oKPDwvRFsy MSAwI FIvWFlaIDM 2IDYx MCBudWxsXT 4+CmV oAH4cofo1X CAwIG 7woiv8ME8G WzIxI TThEf5MUVu gMzYg OtAxRM31cH xdPj4 FHW2xx0SrD jU5ID Gmh2OpSzw8 L0RbM uRrXDVNZ0c ZWiAz JuF5JQByuo VsbF0 +PgplbmRvY moKNj AgMCBvYmoK PDwvR FsyNyAwIFI vWFla LJM2VDB9At BudWx sXT4+CmVuZ G9iag y9HBClES9q ago8P G0FNwU3TTM gUi9Y WVogMzYgMz U2IG5 0iScqBo3NT W5kb2 JqCjYyIDAg b2JqC yy4V9SgMwW gMCBS A1fHUjOhHi A1MTA gbnVsbF0+P gplbm RvYmoKNjMg MCBvY moKPDwvRFs yOCAw IFIvWFlaID QzIDU 4NyBudWxsX T4+Cm IpDF3raez8 NCAwI P1nrxr0IF6 EWzIx LVLaKm7JIR ogMzY jZtZnVO89o GxdPj 1MNJ0wv2Ec CjY1I MRrr5CnNqf 8L0Rb MjEgMCBSL1 hZWiA 0MyAzNDcgb nVsbF 0+PgplbmRv YmoKN jYgMCBvYmo KPDwv RFsyMSAwIF IvWFl nGAB3BUPgX CBudW xsXT4+CmVu ZG9ia yg9LoWnBP6 iago8 NM0RXcWaZG AgUi9 YWVogMzYgN TEwIG 91lUgbBt3M ZW5kb 7LtYdR3TNA gb2Jq Wqv3T2WpKv cgMCB QF1pSXwPnF iA2OD AgbnVsbF0+ Pgplb mRvYmoKNjk gMCBv YmoKPDwvRF syNyA wIFIvWFlaI DM2ID B8ZPXndXae XT4+C mMhMD7wpdp 3MCAw HU4hcuq8KG 9EWzI fDHUoTe5UV VogMz LmYfAlMY61 bGxdP h8MOJ0ti7F qCjcx LJNel6AsSp w8L0R bMjEgMCBSL 1hZWi AzNiAzNjMg bnVsb F0+PgplbmR vYmoK NzIgMCBvYm oKPDw vRFsyNyAwI FIvWF zpAHJ2LDUf NiBud WxsXT4+CmV uZG9i dxy3HoEvVC 9iago 3KD3INfNeZ DAgUi 9YWVogMzYg NTI0I Z78jImpKo5 KZW5k a5PlIsb8RJ Agb2J kSad7B9VkO jcgMC MTC4gRFhT3 MyA2M jEgbnVsbF0 +Pgpl bmRvYmoKNz UgMCB vYmoKPDwvR FsyNy AwIFIvWFla IDM2I AY8FhJvyEs sXT4+ IqTdKO8zwp o3NiA dXB1qvkp3T C9EWz CsZBEtVo0R WVogM zYgNjEwIG5 1bGxd Rl4TSM9ju8 JqCjc 8DKPoh6NlE jw8L0 RbMjEgMCBS L1hZW iAzNiAzMjQ gbnVs bF0+Pgplbm RvYmo KNzggMCBvY moKPD wvRFsyOSAw IFIvW FlaIDQzIDQ yMiBu dWxsXT4+Cm VuZG9 glgq5WTJyP G9iag k8BB7ZVwTe IDAgU g3XBZnxKdD gNzA4 SX72nCxeNt 4KZW5 cw7HmYrzcO DAgb2 BgGqu5N6Qd MjkgM JBUM4pAOlK 0MyAz MjIgbnVsbF 0+Pgp lbmRvYmoKO DEgMC BvYmoKPDwv RFsyN yAwIFIvWFl aIDM2 IHJ7XsDofA xsXT4 +PiDaZR3ln go4Mi ZfCU1gmbb9 PC9EW zIxIDAgUi9 YWVog KTYuHZM6GY 51bGx bMl9AHV4ys 2JqCj ypJXJov6Qy Cjw8L 0RbMjcgMCB SL1hZ WiAzNiAzND YgbnV sbF0+Pgplb mRvYm oKODQgMCBv YmoKP DwvRFsyMSA wIFIv HNdhAYY2UP MyNCB udWxsXT4+C mVuZG 8fwjz5XACk IG9ia qo6RT9YFuA xIDAg Tp1RWRrgIr YgMzY iVR42kUfiN j4KZW 8iq5VxEzy3 IDAgb 1EfYsz1C7T bMjkg ARXKS0eARq A0MyA 1MDUgbnVsb F0+Pg plbmRvYmoK ODcgM CBvYmoKPDw vRFsy OSAwIFIvWF laIDM 9WPD3FQDhl WxsXT 4+HbQfZE2l ago4O BZjZN0pghx 8PC9E BpO1NOZdCo 9YWVo gMzYgNjgwI G51bG tkGk0JKT8b b2JqC sj5EXSii6N qCjw8 Q1RiQaddVG BSL1h HFrHsYgG3C DAgbn VsbF0+Pgpl bmRvY moKOTAgMCB vYmoK PDwvRFsyMS AwIFI aBSrnBGQ4P DUyNC BudWxsXT4+ CmVuZ F2uyck4AMU wIG9i kcr4FF3ZVe I3IDA cAv0CLCjjC DMgMz SuPZ33zJxq Pj4KZ D5ig0RvGay yIDAg m4LnLbj7N6 RbMjE cEUCGD8qDF iA0My S6GrWamwIa bF0+P gplbmRvYmo KOTMg MCBvYmoKPD wvRFs yMSAwIFIvW FlaID E9NRBeOcJi dWxsX T4+CmVuZG9 iago5 FYCoWY2ase o8PC9 EWzIxIDAgU i9YWV ogMzYgMzM2 IG51b QfgBo4XQM1 kb2Jq Jww9RLKjl2 JqCjw 1M5AiIlndN CBSL1 eICuY6EkSa NTkgb nVsbF0+Pgp lbmRv YmoKOTYgMC BvYmo KPDwvRFsyO SAwIF IvWFlaIDM2 IDY4M CBudWxsXT4 +CmVu TB9dfin8Ux AwIG9 hdde9RD9UA zIxID CkVu3RFEiv MzYgN FE8FO74eAj dPj4K UK8eb1XpJn k4IDA fw3IzBdo8E 0RbMj StCTKFE9vV WiAzN iAzMjQgbnV sbF0+ PgplbmRvYm oKOTk gMCBvYmoKP DwvRF syMSAwIFIv WFlaI MC2XJVjEwK udWxs XT4+CmVuZG 9iago xMDAgMCBvY moKPD wvRFsyNyAw IFIvW LweXTT5SLN 4MCBu dWxsXT4+Cm VuZG9 iagoxMDEgM CBvYm oKPDwvRFsy OSAwI FIvWFlaIDQ zIDM2 MSBudWxsXT 4+CmV sDD7xgjlhJ DIgMC BvYmoKPDwv RFsyO SAwIFIvWFl aIDQz JSS0LOXiqE xsXT4 +QvHdKN2nu goxMD MgMCBvYmoK PDwvR FsyNyAwIFI vWFla EZN6FBW0RR BudWx sXT4+CmVuZ G9iag oxMDQgMCBv YmoKP DwvRFsyMSA wIFIv IFxxSHP7AL I0MiB udWxsXT4+C mVuZG 9iagoxMDUg MCBvY moKPDwvRFs yMSAw IFIvWFlaID M2IDY xMCBudWxsX T4+Cm LsPK0vsjwr MDYgM CBvYmoKPDw vRFsy MSAwIFIvWF laIDM 2IDUxMCBud WxsXT 4+DnEsHB7l agoxM DcgMCBvYmo KPDwv RFsyMSAwIF IvWFl dEUW4MMTyE iBudW xsXT4+CmVu ZG9ia goxMDggMCB vYmoK PDwvRFsyMS AwIFI vXPspWNN1J DU3OS BudWxsXT4+ CmVuZ D2vheviLXn gMCBv YmoKPDwvRF syMSA wIFIvWFlaI DM2ID Q4RRLqsSde XT4+C hQsIO0arvk xMTAg MCBvYmoKPD wvRFs yMSAwIFIvW FlaID Q0MGCkCiGl dWxsX T4+CmVuZG9 iagox MTEgMCBvYm oKPDw vRFsyNyAwI FIvWF lkICQ9GES8 MCBud WxsXT4+CmV uZG9i agoxMTIgMC BvYmo KPDwvRFsyM SAwIF IvWFlaIDM2 IDUxM CBudWxsXT4 +CmVu AB7imdfxYS MgMCB vYmoKPDwvR FsyNy AwIFIvWFla IDM2I TY4DVJzaSk sXT4+ PqWzGP2fdq oxMTQ gMCBvYmoKP DwvRF syNyAwIFIv WFlaI OQ4IIM5HDX udWxs XT4+CmVuZG 9iago 9HsUoEC2bo go8PC 4SMT4cc7ee XzIzY SN2EEyiPLS yZGIt OWG1QF30R7 MzLTE 4GROwTFW7Y zExOC kgNDMgMCBS KF81Y ob9YsrqXM9 kN2Q4 LTRlZjEtYm Q4NS1 jXHJvQAK1S GE0ZT LkQTR2GOTj UihfM 2NiYzNhOTE tZTUz OR78F5W9MC I3MWQ uNTR0UqOaY jZhMz HeCOJ9IEWd IFIoX tD3ViPjEgt xLTcx ZRqkKSt9AF 1iMjc uVFTjBGD9J WM2Yj MyMykgNDYg MCBSK F82TxEtIjL 4YS01 DzC5HJIpM8 QtODU 5Ki34JVYcN DNkND cyMDYpIDQ3 IDAgU olsISRrQ2G lN2Yt USVdSX35XN gzLTh lMjItMWMyM GJhMT HhGHJ2ACF8 OCAwI NGjFyU7MPU iYWRi UDQ7LeMoEC I5Zi0 5AAX3HZMoP WQ3N2 G1CBNiPWhp NDkgM MDMCS45RPU 0NzA5 KE4nSDEhXA Q4ODc zRNZ2Tr7qV GI0Y2 Z9VkOuBhHb IDUwI DAgUihfMTA xNDhh MnVqKLO2VD 00Yjg yLTlmNzgtZ DdiZT nfToC8KEGb KSA1M OZvIYZfI3C mYTg0 MzcxLWZiMz ktNGU mVp29MzAbD TNkMD RiNDljOGIz ZCkgN TIgMCBSKF9 kZTcx TuX7RY7pHH QwLTR mNzctYTIwO S03MT k7LKU9VGE5 ODQpI DUzIDAgUih fODNj OFTpY5YnON M1My0 0MaCnEZp9Q mItYm QzNmYxMDQ2 ZWYzK GA0OZPtYLQ oXzFh RIHgRLP2YE k1YjQ vXAR5Zv94X WQxLT M4MJs3Mse3 YjYyM CkgNTUgMCB SKF8x NPB8ZYs6JB 1jNjQ 2LTQwYTctO DNiNC 40NNT7PMe0 ZjdlM 2EqZDP6DFG gUihf YjFlYWVjND ktOWM 5PT23HqwgS WI3Nj ItODIyNjU3 NmViM QRgBQH0YgG wIFIo Q0UwCqVgHv I5LTB kZTYtNGMyY S04OW B0ADN5VFVz Yzk4N lF1YBkqWWb gMCBS BT77XJv6AI FkZC1 bYNScKNI8R DUtYT cwJl4kRjO9 ZDhiO BM5HOWvXMZ 5IDAg VyveUcm2Xm hiMzc mRPcyQX00M TQ4LT q2IBBxTxJh YTA4Z wVxHVU5NIO 2MCAw IFIoXzkyNj AxOWQ 4KNg2BMukN DM2MC 2hVDe7PSKx NDIxO MXjAeM1APx gNjEg XDHYHZ3vUX U2OGM sWT8tVcXiY TRiNz HbCAC4ER73 OTc3Z XIcKPN8GwD pIDYy IDAgUihfMj FlNmE xZWYtMGZjN S00NT IzLWIwNDQt MTMxM iE8TuK9STb 1KSA2 MyAwIFIoXz AyNTI yQSU3UILmA DEtND T0JQ86Q6U2 LTJkY TBjZmMzMjh iYSkg NjQgMCBSKF 8wMDN oADsuDW9aM GZlLT RjYTctYWEy ZC05N GEzNWRkZWE 3ZjQp GHE8JJPhDh hfYjU zZDVkMWEtM TIzYy 59QNK0MCar MjctZ oQ0LFReWoR 0YzI0 AZU8AzSpTB IoXzF fW6BnKVOvW WZhYj blWUo8FH0g Y2Y0L PPpShR4PKG 4ZDli MikgNjcgMC BSKF9 kODAyNWUyM C02Yj O5ONM2Rypr ODYyO W51ILYuGEO 5MzMx TcPlGNU5VK AgUih hJ9OgWyctA zktNz OzEK18U6Tp LTgxN xifRPdwK1I xYTgz DGf0AKL7ES AwIFI yNeOzR9LmH DFmLT EwZmQtNDQz Ny04Z Nx5XGUrR5Y jOTM0 ZjliYykgNz AgMCB OBD2iGlo8P TQ0ZC 9mCUN9SBNs ZWEtY TX4Hv21ACo 1NTRm M3UzCUYhMX cxIDA gUihfNWIxM DkzND RvZOR0ZW24 MDdiL XV9NFGqICz 4ZTkz STi2AAGqCQ A3MiA aUUKkL2C1S jU3MT YnXUK8WJgj NGFmY y82PQYeJTQ hMjJm Plu1VwdvZU kgNzM yEPNKNR1xW TVlZW FqMh01LuB0 LTQzZ GQtODdmOS1 iYWZl ZIJ9YHMqMB kpIDc 0IDAgUihfN WI2Zj czFAybJ7E4 ZC00M pRrFXY4BTn tZGFl P5E8XrxjGe Y5KSA 3NSAwIFIoX 2Q1Zj YyMDIwLTVi ZTktN UKqJt3zGSV kLTgz YWFkZjQxNG ZlZSk gNzYgMCBSK F9mMz FpA9K7Rx4j MDQ4L TQzZDYtOGE 1MC03 ZmJhZjUwMz I1MjY wVXu3AIYiQ ihfM2 FhYWZlNjct ZThhY p88WJW7ADR kNDQt EFa9KaYlGf VjMmQ 3VYY2DVGrJ FIoTU bSQn5tDUpa Y2hhc qpuMYO3dV1 hcnkp QZe2AJAcZo hfYjF lMzhlNzEtZ mU5Yi 00MmRmLWEz M2EtY pA8RhXvRbZ lZjA5 GPF0ZSGoZG IoX2E aTSV0BsTkP WI2Nj wrNSegJs59 Yzg3L CY6VLMzOyD jZjU5 OCkgODEgMC BSKF9 fRRC2DLe5J C01N2 UwLTRiYTct YjEzY l7fSUY9T8T lY2Vk MDApIDgyID AgUih xPIN4WJC9O zUtYT IqRW58RBq7 LTlmO TctMTRiODE 2MTdl NlExDHM5Hl AwIFI oXzdhMjlhN zc2LT h2RhGpVUJr MS05O EC5JHKuNnk 2MWU4 NDAyMykgOD QgMCB DYZ6uLvGlJ 2MxNS 3pP3QbHCJn NGEtY sQ2Wr3fZeI jNTEz YzJlZGEpID g1IDA gUihfYjkxN DY4Yj TiBOZtAp02 Y2I4L Dw4ZLAjXGD jNDYy MGMxYjRkKS A4NiA zTKWbTsf2V DQ2NT kyLTMyNzAt NDNhY t0xYvn9IAA 5OTdm VOCyQ0P3FA kgODc pVZIQQZ16N WQxND N1YC89H2Ls LTRjN OSoCvN9Oj8 mYTlj QCB2FDZyFQ MpIDg 4IDAgUihfY WExNm YzNjItMDY2 Yy00Z Us2IRjiJ5W tYjYx YjcyNzhkOT VmKSA 4OSAwIFIoX zAyOW RjOWQzLTUx ODItN NAnVk4rSMx zLTE2 QEV8DIV9OX M4OSk gOTAgMCBSK F84MD A9QoQjXg9y Y2I4L UJ0KZrjLZY 0ZC1k JQOzZHN6TW Q3MTU pIDkxIDAgU ihfYj VvLkK0VrSw OTFhY d60EZa2CDW yMmMt MQM5DUZyIR k2N2V tHDC3LnUaP FIoXz SqUKj0JkD4 LWU4N BbzQJR2KG3 4ODE2 JRv6SvVmE8 FjNTZ iMikgOTMgM CBSKF 80KbLiMnk7 ZS0wM jViLTQxYTU tODFk De4nShUkFO QzMGV fFAEyXXx3Y DAgUi clHUWeV1S0 NWEtO IIkAw11VwH 4LWFi R6PzDDIgHr BlOTQ yGBPkDHV5N SAwIF IoXzkxMmMw ZWY2L TQwNzctNGF mNC05 QPI4WNGjMl EyODB mNDcxNykgO TYgMC QREF6rFNL0 Y2Q2M T4rMEA7GSX 0NjUt DHAkDH4uYE ZjYWV mZjFmMTMpI Dk3ID AgUihfYWU4 MzNhN oqeHfH9OQ7 0YTM5 LWIwNWItZT YxOTJ mQEulYNC4N SA5OC AwIFIoXzdk M2RkM 3H8SXN6Rjn tNDQ3 MP31BHVxQO EzYTV bVGj0FibzY ikgOT dnMHXHDE4n MTA0N cHyAJ9hEGx kLTQy YxLzREG6TR 00NTk tURPvNow3K DApID EwMCAwIFIo Xzk3O GZhNDhmLTI zNzkt QPX4Au35Kd BmLWJ iOSOkFNE5S GJjZi kgMTAxIDAg UihfM WYyODQyNjg tNmQ1 Ql34XOR7ZO JlMDI qPTi1YEAdC DMwZj A1YEKaIFFy MCBSK B6hHgT0CSK mMS04 HLM9XXV5N9 UtOTM kJR66DKYtO TQyMT r6NrNpZNLi MyAwI TWfM8Q0Pky 5ZTk5 LWFmMGMtND M2Mi0 2QdSuQTH6P zhkOD skYvF7DCmg MTA0I DAgUihfMzN jYmYz AYQuCjW1Du 00YTM 2LThiYTctY zNlZD JlZDdhMjFh KSAxM DUgMCBSKF8 3ZTg0 PIFhAI6tLH U3LTQ 5OGEtODQxZ i1kMD g7BcS3WzUh YjApI DEwNiAwIFI oXzFk HgMuPCB6SI cxMTM dFCE4RT3mT DEwLT DvP8EeMwZ5 NTAyY hjfYOM4WHL gUihf OTMzZjRjNm QtODY uUm02XKvoF Tk2MT AtZDQzZTZm ZGJmN jNjKSAxMDg gMCBS BF5oVEL8Xy ExZi0 kFkeeSNY0A GYtOD U8OS25ZyCl NzFkN MAqB6LuZYP wOSAw WNVhMcI5Lt E2ZjB mLTUyNmYtN DllYi 36OZHkDYo2 YjYxM FQmCZH9Evs gMTEw IDAgUihfMz kxOWJ tW7EmJFU2V C00ND QlGZD9BKUt NTgyM QEkGSC6NDO hKSAx MTEgMCBSKF 81YzQ 1UnJxHQ0wH mNmLT Y1KHQbKSUy Yi0xZ DQwZmRkMjV hM2Yp IDExMiAwIF IoXzZ pECT8OLTqB TFhMz JlZASqPz7v MDdjL JRmDCY5VuU iZmI5 ZCkgMTEzID AgUih fMTIzMzVlM jgtNT etJd05XhTn LWE2Y TktZGJlNTh kYTll MjIzKSAxMT QgMCB SXT4+CmVuZ G9iag zxGlCnBF6z ago8P J8QTHD3QI7 LTUct HITnt9DuOE JnZSB WvB9nJPE8J S9UaX RsZTxmZWZm MDA0N DAwNjkwMDc zMDA2 MzAwNjgwMD YxMDA 3MjAwNjcwM DY1MD AyMDAwNTMw MDc1M GS1ZYMmAhD wMDYx YHB7WxHeLk k+L1B hcmVudCAxM iAwIF I+PgplbmRv YmoKM EM9SLUoi6B qCjw8 D43bWNSalE UoRDo yMDIwMDUxN zE2ND kcPB3fCOfc MCcpL 1UuKRX7vN1 uRGF0 ZShEOjIwMj AwNTE 5NLF4WlYjL y00Jz AwJykvUHJv ZHVjZ XIoSWJleCB QREYg L4WeUJXbnc A0Ljk eFA5oNA66H DM4IF tKQVZBXVAv Ujsgb E9riNDzXGN gdXNp bmcgaVRleH QgMi4 xLjcgYnkgM VQzWF SvBu9GRT9u b2JqC nhyZWYKMCA xMTYK MDAwMDAwMD AwMCA 2NTUzNSBmI AowMD AwMDAwMDE1 IDAwM SMzLP4oChF wMDAw MDAxMDMgMD AwMDA gbiAKMDAwM DAwMD C7IQVpNNNt MCBuI AowMDAwMDA wMzE1 IDAwMDAwIG 4gCjA wMDAwMDAzO TEgMD AwMDAgbiAK MDAwM DAwMDUyNiA wMDAw MCBuIAowMD AwMDA wNjAyIDAwM DAwIG 4gCjAwMDAw MDA3M zggMDAwMDA gbiAK MDAwMDAwMD gxNCA wMDAwMCBuI AowMD AwMDAwOTUw IDAwM UEwQU0iCsB wMDAw MzUyMzMgMD AwMDA gbiAKMDAwM DAwMT EzMyAwMDAw MCBuI AowMDAwMDA xMDY4 IDAwMDAwIG 4gCjA wMDAwMzUyM TIgMD AwMDAgbiAK MDAwM DAwODcxOSA wMDAw MCBuIAowMD AwMDQ cNAD0XKXiQ DAwIG 4gCjAwMDAw MDExO DcgMDAwMDA gbiAK MDAwMDAwMT IyMiA wMDAwMCBuI AowMD AwMDAzODkx IDAwM QAzLB0yKgI wMDAw MDQwNzQgMD AwMDA gbiAKMDAwM DAwOD K6ZiUqLMNv MCBuI AowMDAwMDA 5MDk2 IDAwMDAwIG 4gCjA qWUNaSZB9N jkgMD AwMDAgbiAK MDAwM QYfRor7TnP wMDAw MCBuIAowMD AwMDE yNjYyIDAwM DAwIG 4gCjAwMDAw MDg4M DcgMDAwMDA gbiAK MDAwMDAxNz Q2MyA wMDAwMCBuI AowMD QtXLA9ReG8 IDAwM RJrPV1dJgA wMDAw EvX8GQIaTB AwMDA gbiAKMDAwM DAxMj c1PjOwFCGt MCBuI AowMDAwMDE zMTU1 IDAwMDAwIG 4gCjA wMDAwMTgwO DkgMD AwMDAgbiAK MDAwM DAxNzgwMCA wMDAw MCBuIAowMD AwMDI zWEZ4QWBwJ DAwIG 4gCjAwMDAw MjEzM jggMDAwMDA gbiAK MDAwMDAyNj I2MiA wMDAwMCBuI AowMD RdVLQ3SWex IDAwM JWrZG1lPdR wMDAw MjgxOTUgMD AwMDA gbiAKMDAwM DAyOD E4KQEbQBCu MCBuI AowMDAwMDM zMzEy IDAwMDAwIG 4gCjA wMDAwMzMwM jMgMD AwMDAgbiAK MDAwM JDkEJO6OhO wMDAw MCBuIAowMD AwMDM 6GrP1LXPeH DAwIG 4gCjAwMDAw MzUzM TQgMDAwMDA gbiAK MDAwMDAzNT M2MSA wMDAwMCBuI AowMD MtJLE1DHR3 IDAwM RFnQM7dIcD wMDAw CpX1XJAhVU AwMDA gbiAKMDAwM DAzNT UwMiAwMDAw MCBuI AowMDAwMDM 1NTQ5 IDAwMDAwIG 4gCjA jSBEzAjD7R TYgMD AwMDAgbiAK MDAwM LUbTKK6EwN wMDAw MCBuIAowMD AwMDM 1NjkwIDAwM DAwIG 4gCjAwMDAw MzU3M zcgMDAwMDA gbiAK MDAwMDAzNT c4NCA wMDAwMCBuI AowMD MiBQX0QBNg IDAwM XRiSP2zMxQ wMDAw YiN2OnnrMK AwMDA gbiAKMDAwM DAzNT kyNSAwMDAw MCBuI AowMDAwMDM 1OTcy IDAwMDAwIG 4gCjA wMDAwMzYwM TkgMD AwMDAgbiAK MDAwM ZPiZiF2WhE wMDAw MCBuIAowMD AwMDM 2MTEzIDAwM DAwIG 4gCjAwMDAw MzYxN jAgMDAwMDA gbiAK MDAwMDAzNj IwNyA wMDAwMCBuI AowMD WxMZR5JiZ8 IDAwM LTiQW8yAcP wMDAw MzYzMDEgMD AwMDA gbiAKMDAwM DAzNj S9NTZdXCQr MCBuI AowMDAwMDM 2Mzk1 IDAwMDAwIG 4gCjA oCHPiPlL1M DIgMD AwMDAgbiAK MDAwM AHcJfM0EFW wMDAw MCBuIAowMD AwMDM 6VOO5HQDbF DAwIG 4gCjAwMDAw MzY1O DMgMDAwMDA gbiAK MDAwMDAzNj YzMCA wMDAwMCBuI AowMD ZhOWZ0Xcy3 IDAwM NNlCY3jTvS wMDAw YoR8DcRjZO AwMDA gbiAKMDAwM DAzNj i1YEYcNKSw MCBuI AowMDAwMDM 2ODE4 IDAwMDAwIG 4gCjA sUWTxBzF8P jUgMD AwMDAgbiAK MDAwM DAzNjkxMiA wMDAw MCBuIAowMD AwMDM 9MPB0GBBlS DAwIG 4gCjAwMDAw MzcwM DYgMDAwMDA gbiAK MDAwMDAzNz A1MyA wMDAwMCBuI AowMD MdABX7OLZt IDAwM RTcRW8lWiH wMDAw MzcxNDcgMD AwMDA gbiAKMDAwM DAzNz K5WOObGVCs MCBuI AowMDAwMDM 3MjQx IDAwMDAwIG 4gCjA wMDAwMzcyO DggMD AwMDAgbiAK MDAwM DAzNzMzNSA wMDAw MCBuIAowMD AwMDM 3MzgyIDAwM DAwIG 4gCjAwMDAw Mzc0M jkgMDAwMDA gbiAK MDAwMDAzNz Q3NiA wMDAwMCBuI AowMD FuPZH6FFPo IDAwM NDkRO7mKiT wMDAw Ryl9QzQxYF AwMDA gbiAKMDAwM DAzNz YxNyAwMDAw MCBuI AowMDAwMDM 3NjY0 IDAwMDAwIG 4gCjA rURMnHop0N TEgMD AwMDAgbiAK MDAwM NZkJes0RCK wMDAw MCBuIAowMD AwMDM 9VXW1NDFgC DAwIG 4gCjAwMDAw Mzc4N TIgMDAwMDA gbiAK MDAwMDAzNz g5OSA wMDAwMCBuI AowMD WpCDM3JYS2 IDAwM DIuGT7gLvV wMDAw Zqk6USUjAJ AwMDA gbiAKMDAwM DAzOD I1TyYfFXGk MCBuI AowMDAwMDM 4MDkw IDAwMDAwIG 4gCjA wMDAwMzgxM zggMD AwMDAgbiAK MDAwM VHnMIE3RtA wMDAw MCBuIAowMD AwMDM 9RqD7XOEqF DAwIG 4gCjAwMDAw MzgyO DIgMDAwMDA gbiAK MDAwMDAzOD MzMCA wMDAwMCBuI AowMD LxXZQ1Fhp1 IDAwM ILnYE4uFqG wMDAw Tah2SjYcQC AwMDA gbiAKMDAwM DAzOD Z3VIJkNXTi MCBuI AowMDAwMDM 4NTIy IDAwMDAwIG 4gCjA mAXWmYvu0P zAgMD AwMDAgbiAK MDAwM DAzODYxOCA wMDAw MCBuIAowMD AwMDQ yMTUzIDAwM DAwIG 4gCnRyYWls ZXIKP FhmCE3xbdQ xMTUg FWGGJ7cNOZ s8MzE uIac8UKB7M Tg3NT FhZWQyOGEw ZTEzN DVmYTQwZTU +PGZh QPUoYSN1JA c3MDU 0MzJkNzVhN jc4Yj BlYzFkOTY1 Pl0vU y6uxXFvRRV wIFIv G7r4RUUdFA Y+Pgp zdGFydHhyZ WYKND IzMzQKJSVF T0YK ID Date Data Source [id number] 02/19/2020 07:22:00 AM EDT [facility] Name Value Range Interpretation Description Data Sup porting Code Source(s) Document(s ) Glucose Lvl 98 mg/dL 65-99 NO [facility] BUN <1.0 6.0-20.0 [place] mg/dL [facility] Creatinine 0.48 0.40-1.0 [place] mg/dL 0 [facility] BUN/Creat -999.0 7.0-29.0 [place] Ratio ratio [facility] Sodium Lvl 140 136-145 [place] mmol/L [facility] Potassium Lvl 3.2 3.5-5.1 [place] mmol/L [facility] Chloride 108 98-107 [place] mmol/L [facility] CO2 22 23-29 [place] mmol/L [facility] AGAP 10 5-15 [facility] Calcium Lvl 8.6 8.6-10.0 [place] mg/dL [facility] Total Protein 5.8 6.0-8.3 [place] gm/dL [facility] Albumin Lvl 2.8 3.5-5.0 [place] gm/dL [facility] Glob 3.0 2.0-4.5 [place] gm/dL [facility] A/G Ratio 0.9 1.0-2.2 [place] ratio [facility] Bili Total 0.5 0.3-1.2 [place] mg/dL [facility] Alk Phos 98 IU/L 38-126 NO [facility] AST 20 IU/L 15-41 NO [facility] ALT 15 IU/L 7-40 [facility] ID Date Data Source [id number] 02/19/2020 07:22:00 AM EDT [facility] Added by Discern Rule GLB_ADD_GFR_CMP Name Value Range Interpretation Code Description Data Mariana rce(s) Supporting Document(s ) eGFR-AA >90 >=60 NO [facility] mL/min/1.[address] The MDRD 4-Variable IDMS traceable Equat ion for non- individuals is used to calculate the estimated glomerul ar filtration rate (GFR). To estimate the GFR for Americans, multiply the prov ided GFR result by 1.16. The MDRD 4-Variable IDMS traceable Equation is validated in individuals 18 years of age or older. It is less accurate in patients with extremes of muscle mass, restriction of dietary protein, ingestion of creatine, extra-re nal metabolism of creatinine, or treatment with medications that affect renal tubul ar creatinine secretion.GFR Categories in Chronic Kidney Disease (CKD)GFR Category : GFR (mL/min/1.73 m2): Interpretation: G1 90 or greater Normal or high* G2 60-89 Mild decrease*G3a 45-59 Mild to moderate [id number] 30-44 Moderate to severe decreaseG4 15-29 Severe decreaseG5 14 or less Kidney failure eGFR-SUDHIR >90 mL/min/1.73m2 >=60 NO [facility] The MDRD 4-Variable IDMS traceable Equat ion for non- individuals is used to calculate the estimated glomerul ar filtration rate (GFR). To estimate the GFR for Americans, multiply the prov ided GFR result by 1.16. The MDRD 4-Variable IDMS traceable Equation is validated in individuals 18 years of age or older. It is less accurate in patients with extremes of muscle mass, restriction of dietary protein, ingestion of creatine, extra-re nal metabolism of creatinine, or treatment with medications that affect renal tubul ar creatinine secretion.GFR Categories in Chronic Kidney Disease (CKD)GFR Category : GFR (mL/min/1.73 m2): Interpretation: G1 90 or greater Normal or high* G2 60-89 Mild decrease*G3a 45-59 Mild to moderate [id number] 30-44 Moderate to severe decreaseG4 15-29 Severe decreaseG5 14 or less Kidney failure ID Date Data Source [id number] 02/19/2020 06:37:00 AM EDT [facility] Name Value Range Interpretation Description Data Sup porting Code Source(s) Document(s ) Neut Auto 49.6 % 50.0-80.0 LO [facility] Lymph Auto 32.5 % 14.0-44.0 NO [facility] [place] Auto 12.8 % 0.0-12.0 HI [facility] Eos Auto 4.4 % 0.0-7.0 NO [facility] Baso Auto 0.7 % 0.0-3.0 NO [facility] Neut 2.9 2.0-8.4 NO [place] Absolute x10(3)/[facility] Lymph 1.9 0.6-4.8 NO [place] Absolute x10(3)/[facility] [place] 0.7 0.0-1.1 NO [place] Absolute x10(3)/[facility] Eos Absolute 0.3 0.0-0.5 [place] x10(3)/[facility] Baso 0.0 0.0-0.3 NO [place] Absolute x10(3)/[facility] ID Date Data Source [id number] 02/19/2020 06:37:00 AM EDT [facility] Name Value Range Interpretation Description Data Sup porting Code Source(s) Document(s ) WBC 5.8 4.0-10.5 [place] x10(3)/[facility] RBC 4.60 3.80-5.20 [place] x10(6)/[facility] Hgb 10.8 11.4-15.1 [place] gm/dL [facility] Hct 34.8 % 36.0-46.0 [facility] MCV 76 fL 80-98 [facility] MCH 23.4 pg 26.0-34.0 [facility] MCHC 31.0 32.0-36.0 LO [facility] gm/dL [facility] RDW 19.0 % 11.0-15.0 [facility] Platelet 276 150-400 NO [facility] x10(3)/[facility] MPV 8.0 fL 8.5-13.0 [facility] ID Date Data Source [id number] 02/18/2020 04:59:00 PM EDT [facility] Patient Name: JHONATAN OROZCO ANEMRN: [id number] General DiagnosticACCESSION EXAM DATE/TIME PROCEDURE ORDERING PROVIDER [id number] 02/18/2020 16:42 EDT XR Chest Portable Jonathan LAFLEUR, Alice Auth (Ve rified) N.Reason For Exam (XR Chest Portable) Dyspnea SOBReportPROCEDURE: Radiograph Portable Chest 1 ViewCLINICAL HISTORY: PainSCRIPT INFORMATION: painCOMPARISON: Chest x-ra y 02/15/2020TECHNIQUE:Anteroposterior radiographic view of the chest was perfo rmed.FINDINGS:The lungs are clear.There is no evidence for pleural effusion.There is n o evidence for pneumothorax.The heart is unremarkable.The mediastinum and hilar s oft tissues are unremarkable.The bony thorax is unremarkable.IMPRESSION:Clear lungs.T genesis you for allowing us to participate in the evaluation of this patient. Fin al Dictated: Rolan Michel MD 02/18/20 16:57Signed: João Michel MD 02/18/20 16:59Transcribed by: ADM Name Value Range Interpretation Code Description Data Mariana rce(s) Supporting Document(s ) ID Date Data Source [id number] 02/18/2020 07:12:00 AM EDT [facility] Added by Discern Rule GLB_ADD_GFR_CMP Name Value Range Interpretation Code Description Data Mariana rce(s) Supporting Document(s ) eGFR-AA >90 >=60 NO [facility] mL/min/1.[address] The MDRD 4-Variable IDMS traceable Equat ion for non- individuals is used to calculate the estimated glomerul ar filtration rate (GFR). To estimate the GFR for Americans, multiply the prov ided GFR result by 1.16. The MDRD 4-Variable IDMS traceable Equation is validated in individuals 18 years of age or older. It is less accurate in patients with extremes of muscle mass, restriction of dietary protein, ingestion of creatine, extra-re nal metabolism of creatinine, or treatment with medications that affect renal tubul ar creatinine secretion.GFR Categories in Chronic Kidney Disease (CKD)GFR Category : GFR (mL/min/1.73 m2): Interpretation: G1 90 or greater Normal or high* G2 60-89 Mild decrease*G3a 45-59 Mild to moderate [id number] 30-44 Moderate to severe decreaseG4 15-29 Severe decreaseG5 14 or less Kidney failure eGFR-SUDHIR >90 mL/min/1.73m2 >=60 NO [facility] The MDRD 4-Variable IDMS traceable Equat ion for non- individuals is used to calculate the estimated glomerul ar filtration rate (GFR). To estimate the GFR for Americans, multiply the prov ided GFR result by 1.16. The MDRD 4-Variable IDMS traceable Equation is validated in individuals 18 years of age or older. It is less accurate in patients with extremes of muscle mass, restriction of dietary protein, ingestion of creatine, extra-re nal metabolism of creatinine, or treatment with medications that affect renal tubul ar creatinine secretion.GFR Categories in Chronic Kidney Disease (CKD)GFR Category : GFR (mL/min/1.73 m2): Interpretation: G1 90 or greater Normal or high* G2 60-89 Mild decrease*G3a 45-59 Mild to moderate [id number] 30-44 Moderate to severe decreaseG4 15-29 Severe decreaseG5 14 or less Kidney failure ID Date Data Source [id number] 02/18/2020 07:12:00 AM EDT [facility] Name Value Range Interpretation Description Data Sup porting Code Source(s) Document(s ) Glucose Lvl 109 65-99 [place] mg/dL [facility] BUN <1.0 6.0-20.0 [place] mg/dL [facility] Creatinine 0.59 0.40-1.0 [place] mg/dL 0 [facility] BUN/Creat 0.2 7.0-29.0 [place] Ratio ratio [facility] Sodium Lvl 142 136-145 [place] mmol/L [facility] Potassium Lvl 3.6 3.5-5.1 [place] mmol/L [facility] Chloride 109 98-107 [place] mmol/L [facility] CO2 25 23-29 [place] mmol/L [facility] AGAP 8 5-15 [facility] Calcium Lvl 9.0 8.6-10.0 [place] mg/dL [facility] Total Protein 6.1 6.0-8.3 [place] gm/dL [facility] Albumin Lvl 3.1 3.5-5.0 [place] gm/dL [facility] Glob 3.0 2.0-4.5 [place] gm/dL [facility] A/G Ratio 1.0 1.0-2.2 [place] ratio [facility] Bili Total 0.7 0.3-1.2 [place] mg/dL [facility] Alk Phos 104 IU/L 38-126 NO [facility] AST 22 IU/L 15-41 NO [facility] ALT 16 IU/L 7-40 NO [facility] ID Date Data Source [id number] 02/18/2020 07:09:00 AM EDT [place] [facility] Name Value Range Interpretation Description Data Sup porting Code Source(s) Document(s ) Magnesium 1.7 mg/dL 1.6-2.6 NO [facility] ID Date Data Source [id number] 02/18/2020 06:19:00 AM EDT [facility] Name Value Range Interpretation Description Data Sup porting Code Source(s) Document(s ) WBC 5.1 4.0-10.5 [place] x10(3)/[facility] RBC 4.77 3.80-5.20 [place] x10(6)/[facility] Hgb 11.3 11.4-15.1 [facility] gm/dL [facility] Hct 36.3 % 36.0-46.0 NO [facility] MCV 76 fL 80-98 [facility] MCH 23.7 pg 26.0-34.0 [facility] MCHC 31.1 32.0-36.0 [facility] gm/dL [facility] RDW 19.1 % 11.0-15.0 [facility] Platelet 313 150-400 [facility] MPV 7.9 fL 8.5-13.0 [facility] ID Date Data Source [id number] 02/18/2020 06:19:00 AM EDT [facility] Name Value Range Interpretation Description Data Sup porting Code Source(s) Document(s ) Neut Auto 57.0 % 50.0-80.0 NO [facility] Lymph Auto 27.5 % 14.0-44.0 NO [facility] [place] Auto 10.6 % 0.0-12.0 [facility] Eos Auto 4.2 % 0.0-7.0 NO [facility] Baso Auto 0.7 % 0.0-3.0 NO [facility] Neut 2.9 2.0-8.4 NO [place] Absolute x10(3)/[facility] Lymph 1.4 0.6-4.8 NO [place] [facility] x10(3)/[facility] [place] 0.5 0.0-1.1 NO [place] [facility] x10(3)/[facility] Eos Absolute 0.2 0.0-0.5 [place] x10(3)/[facility] Baso 0.0 0.0-0.3 NO [place] Absolute x10(3)/[facility] ID Date Data Source [id number] 02/17/2020 06:24:00 AM EDT [facility] Added by Discern Rule GLB_ADD_GFR_BMP Name Value Range Interpretation Code Description Data Mariana rce(s) Supporting Document(s ) eGFR-AA >90 >=60 NO [facility] mL/min/1.[address] [place] [address] The MDRD 4-Variable IDMS traceable Equat ion for non- individuals is used to calculate the estimated glomerul ar filtration rate (GFR). To estimate the GFR for Americans, multiply the [facility] GFR result by 1.16. The MDRD 4-Variable IDMS traceable Equation is validated in individuals 18 years of age or older. It is less accurate in patients with extremes of muscle mass, restriction of dietary protein, ingestion of creatine, extra-re nal metabolism of creatinine, or treatment with medications that affect renal tubul ar creatinine secretion.GFR Categories in Chronic Kidney Disease (CKD)GFR Category : GFR (mL/min/1.73 m2): Interpretation: G1 90 or greater Normal or high* G2 60-89 Mild decrease*G3a 45-59 Mild to moderate [id number] 30-44 Moderate to severe decreaseG4 15-29 Severe decreaseG5 14 or less Kidney failure eGFR-SUDHIR >90 mL/min/1.73m2 >=60 NO [facility] The MDRD 4-Variable IDMS traceable Equat ion for non- individuals is used to calculate the estimated glomerul ar filtration rate (GFR). To estimate the GFR for Americans, multiply the [facility] G[facility] result by 1.16. The MDRD 4-Variable IDMS traceable Equation is validated in individuals 18 years of age or older. It is less accurate in patients with extremes of muscle mass, restriction of dietary protein, ingestion of creatine, extra-re nal metabolism of creatinine, or treatment with medications that affect renal tubul ar creatinine secretion.GFR Categories in Chronic Kidney Disease (CKD)GFR Category : GFR (mL/min/1.73 m2): Interpretation: G1 90 or greater Normal or high* G2 60-89 Mild decrease*G3a 45-59 Mild to moderate [id number] 30-44 Moderate to severe decreaseG4 15-29 Severe decreaseG5 14 or less Kidney failure ID Date Data Source [id number] 02/17/2020 06:24:00 AM EDT [facility] Name Value Range Interpretation Description Data Sup porting Code Source(s) Document(s ) Glucose Lvl 112 65-99 [place] mg/dL [facility] BUN <1.0 6.0-20.0 [place] mg/dL [facility] Creatinine 0.56 0.40-1.0 [place] mg/dL 0 [facility] BUN/Creat 0.4 7.0-29.0 [place] Ratio ratio [facility] Sodium Lvl 140 136-145 [place] mmol/L [facility] Potassium Lvl 3.4 3.5-5.1 [place] mmol/L [facility] Chloride 110 98-107 [place] mmol/L [facility] CO2 24 23-29 [place] mmol/L [facility] AGAP 7 5-15 NO vance [facility] Calcium Lvl 8.8 8.6-10.0 [place] mg/dL [facility] ID Date Data Source [id number] 02/17/2020 06:17:00 AM EDT [facility] Name Value Range Interpretation Description Data Sup porting Code Source(s) Document(s ) Neut Auto 56.5 % 50.0-80.0 NO [facility] Lymph Auto 28.7 % 14.0-44.0 NO [facility] [place] Auto 10.5 % 0.0-12.0 NO [facility] Eos Auto 3.4 % 0.0-7.0 NO [facility] Baso Auto 0.9 % 0.0-3.0 NO [facility] Neut 3.1 2.0-8.4 NO [place] Absolute x10(3)/[facility] Lymph 1.6 0.6-4.8 NO [place] Absolute x10(3)/[facility] [place] 0.6 0.0-1.1 NO [place] Absolute x10(3)/[facility] Eos Absolute 0.2 0.0-0.5 [place] x10(3)/[facility] Baso 0.0 0.0-0.3 NO [place] Absolute x10(3)/[facility] ID Date Data Source [id number] 02/17/2020 06:17:00 AM EDT [facility] Name Value Range Interpretation Description Data Sup porting Code Source(s) Document(s ) WBC 5.5 4.0-10.5 [place] x10(3)/[facility] RBC 4.51 3.80-5.20 [place] x10(6)/[facility] Hgb 10.7 11.4-15.1 [place] gm/dL [facility] Hct 34.1 % 36.0-46.0 LO [facility] MCV 76 fL 80-98 [facility] MCH 23.6 pg 26.0-34.0 [facility] MCHC 31.3 32.0-36.0 [facility] gm/dL [facility] RDW 18.7 % 11.0-15.0 [facility] Platelet 299 150-400 NO [facility] x10(3)/[facility] MPV 7.7 fL 8.5-13.0 [facility] ID Date Data Source [id number] 02/16/2020 05:40:00 PM EDT [facility] Patient Name: JHONATAN OROZCO ANEMRN: [id number] General DiagnosticACCESSION EXAM DATE/TIME PROCEDURE ORDERING PROVIDER [id number] 02/16/2020 16:43 EDT XR Abdomen 1 View Riley CANDY DIPPER, Auth (Veri fied) Portable PaulinaReason For Exam(XR Abdomen 1 View Portable) Bowel ObstructionReportPROCEDURE: Radiograph Abdomen 1 ViewCLINICAL HISTORY: Bowel ObstructionSCRIPT INFORMATION: Bowel Obs tructionCOMPARISON: 01/07/2019TECHNIQUE:A single supine radiographic view of the a susie was performed.FINDINGS:The bowel gas pattern is nonspecific with no obstructi on identified.Enteric contrast in the transverse colon. Trace amount of enteri c contrast in distal small bowel of the pelvis. Evaluation for free air is limit ed on supine view.The visualized lung bases are clear.IMPRESSION:Nonspecific nonobst ructive bowel gas pattern.Thank you for allowing us to participate in the evalua tion of this patient. Final Dictated: Albertina Tam MD 0 02/16/20 17:38Signed: Albertina Tam MD 02/16/20 17:40Transcribed by: SRINIVASA Name Value Range Interpretation Code Description Data Mariana rce(s) Supporting Document(s ) ID Date Data Source [id number] 02/16/2020 10:43:00 AM EDT [facility] Patient Name: JHONATAN OROZCO ANEMRN: [id number] General DiagnosticACCESSION EXAM DATE/TIME PROCEDURE ORDERING PROVIDER [id number] 02/16/2020 09:15 EDT XR DRE Epperson MD, [place] [facility] (Verified) A.Reason Fo r Exam(XR ESOPHOGUS) DysphagiaReportPROCEDURE: Radiograph Eso phagusCLINICAL HISTORY: DysphagiaSCRIPT INFORMATION: dysphagiaCOMPARISON: None. TECHNIQUE:Images following the ingestion of barium under real-time fluoroscopic guid ance were performed. The study is limited, as the patient became nauseated during t he procedure and requested to stop.FINDINGS:The esophagus is normal in course, caliber and mucosal contour.Tertiary contractions are noted.No gastroesophage al reflux is observed.No hiatal hernia is present.QUALITY MEASURE:Total Fluoroscop y Procedure Exposure Time: 2.7 minutesNumber of Fluoroscopy Images: 10IMPRESSION:Limi nayeli study. Tertiary contractions noted. No evidence for hiatal hernia or Schatzki's ring.Thank you for allowing us to participate in the evaluation of this pa tient. Final Dictated: Hood Renee MD 02/16/20 10:40Signed: Hood Hopkins MD 02/16/20 10:42Transcribed by: JANNA Name Value Range Interpretation Code Description Data Mariana rce(s) Supporting Document(s ) ID Date Data Source [id number] 02/16/2020 06:54:00 AM EDT [facility] Name Value Range Interpretation Description Data Sup porting Code Source(s) Document(s ) Magnesium 1.8 mg/dL 1.6-2.6 NO [facility] ID Date Data Source [id number] 02/16/2020 06:54:00 AM EDT [facility] Name Value Range Interpretation Description Data Sup porting Code Source(s) Document(s ) Glucose Lvl 90 mg/dL 65-99 NO [facility] BUN 1.9 6.0-20.0 [place] mg/dL [facility] Creatinine 0.62 0.40-1.0 [place] mg/dL 0 [facility] BUN/Creat 3.1 7.0-29.0 [place] Ratio ratio [facility] Sodium Lvl 140 136-145 [place] mmol/L [facility] Potassium Lvl 3.9 3.5-5.1 [place] mmol/L [facility] Chloride 107 98-107 [place] mmol/L [facility] CO2 20 23-29 [place] mmol/L [facility] AGAP 13 5-15 NO [facility] Calcium Lvl 9.1 8.6-10.0 [place] mg/dL [facility] Total Protein 6.5 6.0-8.3 [place] gm/dL [facility] Albumin Lvl 3.2 3.5-5.0 [place] gm/dL [facility] Glob 3.3 2.0-4.5 [place] gm/dL [facility] A/G Ratio 1.0 1.0-2.2 [place] ratio [facility] Bili Total 1.0 0.3-1.2 [place] mg/dL [facility] Alk Phos 106 IU/L 38-126 NO [facility] AST 16 IU/L 15-41 NO [facility] ALT 12 IU/L 7-40 NO [facility] ID Date Data Source [id number] 02/16/2020 06:48:00 AM EDT [facility] Added by Discern Rule GLB_ADD_GFR_CMP Name Value Range Interpretation Code Description Data Mariana rce(s) Supporting Document(s ) eGFR-AA >90 >=60 NO [facility] mL/min/1.[address] The MDRD 4-Variable IDMS traceable Equat ion for non- individuals is used to calculate the estimated glomerul ar filtration rate (GFR). To estimate the GFR for Americans, multiply the prov ided GFR result by 1.16. The MDRD 4-Variable IDMS traceable Equation is validated in individuals 18 years of age or older. It is less accurate in patients with extremes of muscle mass, restriction of dietary protein, ingestion of creatine, extra-re nal metabolism of creatinine, or treatment with medications that affect renal tubul ar creatinine secretion.GFR Categories in Chronic Kidney Disease (CKD)GFR Category : GFR (mL/min/1.73 m2): Interpretation: G1 90 or greater Normal or high* G2 60-89 Mild decrease*G3a 45-59 Mild to moderate [id number] 30-44 Moderate to severe decreaseG4 15-29 Severe decreaseG5 14 or less Kidney failure eGFR-SUDHIR >90 mL/min/1.73m2 >=60 NO [facility] The MDRD 4-Variable IDMS traceable Equat ion for non- individuals is used to calculate the estimated glomerul ar filtration rate (GFR). To estimate the GFR for Americans, multiply the prov ided GFR result by 1.16. The MDRD 4-Variable IDMS traceable Equation is validated in individuals 18 years of age or older. It is less accurate in patients with extremes of muscle mass, restriction of dietary protein, ingestion of creatine, extra-re nal metabolism of creatinine, or treatment with medications that affect renal tubul ar creatinine secretion.GFR Categories in Chronic Kidney Disease (CKD)GFR Category : GFR (mL/min/1.73 m2): Interpretation: G1 90 or greater Normal or high* G2 60-89 Mild decrease*G3a 45-59 Mild to moderate [id number] 30-44 Moderate to severe decreaseG4 15-29 Severe decreaseG5 14 or less Kidney failure ID Date Data Source [id number] 02/16/2020 06:45:00 AM EDT [facility] Name Value Range Interpretation Description Data Sup porting Code Source(s) Document(s ) Neut Auto 68.6 % 50.0-80.0 NO [facility] Lymph Auto 20.5 % 14.0-44.0 NO [facility] [place] Auto 8.6 % 0.0-12.0 NO [facility] Eos Auto 1.6 % 0.0-7.0 NO [facility] Baso Auto 0.7 % 0.0-3.0 NO [facility] Neut 4.7 2.0-8.4 NO [place] Absolute x10(3)/[facility] Lymph 1.4 0.6-4.8 NO [place] Absolute x10(3)/[facility] [place] 0.6 0.0-1.1 NO [place] Absolute x10(3)/[facility] Eos Absolute 0.1 0.0-0.5 [place] x10(3)/[facility] Baso 0.0 0.0-0.3 NO [place] [facility] x10(3)/[facility] ID Date Data Source [id number] 02/16/2020 06:45:00 AM EDT [facility] Name Value Range Interpretation Description Data Sup porting Code Source(s) Document(s ) WBC 6.8 4.0-10.5 [place] x10(3)/[facility] RBC 4.66 3.80-5.20 [place] x10(6)/[facility] Hgb 11.0 11.4-15.1 [place] gm/dL [facility] Hct 35.4 % 36.0-46.0 LO [facility] MCV 76 fL 80-98 LO [facility] MCH 23.7 pg 26.0-34.0 [facility] MCHC 31.2 32.0-36.0 [place] gm/dL [facility] RDW 19.1 % 11.0-15.0 [facility] Platelet 309 150-400 NO [place] x10(3)/[facility] MPV 7.9 fL 8.5-13.0 LO [facility] ID Date Data Source [id number] 02/15/2020 04:37:00 PM EDT [facility] [id number]} [facility] Patient: MARIELA ROME Age: 69 years Sex: Female : 1950 Associated Diagnoses: None Author: Jeramy dove Jr, MD, [facility] Procedure Assessment Anesthesia Post Anesthesia Ev aluation: Mental Status: Patient Participation: Awake. Airway Paten cy: Satisfactory. Oxygen:: Room Air. Vital Signs: Vitals from Flowsheet 15:20 EDT Heart Rate Monitored 84 bpm Respiratory Rate 18 br/min Systolic Blood Pressure 130 mmHg (Modified) Diastolic Blood Pressure 83 mmHg (Modified) Mean Arterial Pressure, Cuff 99 mmHg (Modified) Blood Pressure Site Right arm SpO2 100 % . Juan Score From Flowsheet: Juan Score: 02/15/2020 15:20 EDT 10 . Hydration Status: Satisfactory. Nausea/Vomiting: None noted. 0 04:10:27 Comment by: Michelle Albrecht all info up to date, insurance active, ok to tx and bill insurance Michelle Mendes [address] [place] [address] [id number] [facility] JAVED [id number] [id number], unspecified0.000.00 Name Value Range Interpretation Code Description Data Mariana rce(s) Supporting Document(s ) ID Date Data Source [id number] 02/17/2020 04:29:00 PM EDT [facility] [place], [place] [address]Phone: Fax: [phone] Borden M.D., Director of PathologySURGICAL PATHOLOGY REPORTPatien t: MARIELA OROZCO LAccession #: [id number]: 02/15/2020 14:54Rec eived: 02/15/2020 15:45Reported: 02/16/2020 11:02Clinical Diagnosis and HistoryDysph agia.Specimen(s) ReceivedA:Random gastric bxB:Gastric polyp bxC:Distal esophagus b xD:Mid esophagus bxFINAL MICROSCOPIC DIAGNOSISA. Stomach, biopsy:- Chronic ga stritis. - Negative for helicobacter organisms.- Negative for intestinal meta plasia. B. Stomach, body, biopsy:- Consistent with fundic gland polyp. C. 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 - Negative for dysplasia. D. Esophagus, mid, biopsy:- Fragments of benign esophageal squamous mucosa with mild chronic inflammation. - Negative for reflux esop hagitis. - Negative for Yee's esophagus. - Negative for dysplasia. Case CommentCa se interpreted at [facility], [address] [place], [place] [address]Electronically Signed By: Braulio Singh/Time Reported: 02/16/2020 11:02:13Gross DescriptionA. Labeled with the patient's name, date of , random gastric biopsy and received in formalin are three fischer tissues that rang e from 0.3 x 0.1 x 0.1 cm to 1.1 x 0.1 x 0.1 cm. Submitted in toto in one cassette.B . Labeled with the patient's name, date of , biopsy gastric polyp and recei maykel in formalin are two fischer tissues that average 0.9 x 0.3 x 0.1 cm. Submitted i n toto in one cassette.C. Labeled with the patient's name, date of , dista l esophagus biopsy and received in formalin are three white-red tissues that average 0.5 x 0.2 x 0.1 cm. Submitted in toto in one cassette.D. Labeled with the pat ient's name, date of , mid esophagus biopsy and received in formalin are four white-red tissues that average 0.2 x 0.2 x 0.1 cm. Submitted in toto in one casset te.ax/02/15/2020Cherelle ADAMS, ([facility]) Name Value Range Interpretation Code Description Data Mariana rce(s) Supporting Document(s ) ID Date Data Source {[id number] 02/15/2020 03:47:00 PM EDT [facility] [employer] [facility] [id number]} [facility] Patient: MARIELA ROME Age: 69 years Sex: Female : 1950 Associated Diagnoses: None Author: Kecia Tipton CRNA Assessment Review of Systems Constitutional: No fevers, infec tions or nightime sweating. Cardiovascular: No changes in METS or anginal symptoms f rom baseline. Pulmonary: No changes in shortness of breath, cough, dyspnea on e xertion or auxillary oxygen requirements from baseline. Gastrointestinal: No change in reflux symptoms from baseline. Hematologic: No changes in bruising or b leeding from baseline. Musculoskeletal: No changes in cervical motion instability, myalgias, or extremity range of motion from baseline. Physical Exam Cardiovascular : Regular rate/rhythm, No murmur/ gallop. Respiratory: Lungs clear to auscultation bilaterally, Breath Sounds Equal. Airway Assessment Dentition: Risks of possible dental trauma discussed with patient and/or guardian. Agrees to proceed with anesthe nora as planned., Poor. Teeth: Chipped, Missing, Loose. Airway: No abnormaliti es noted, Decreased ROM neck/mandible. Mallampati Classification: III. Aneset hesia Evaluation Anesthesia History: Patient History No Significant History, Family H istory No Significant History. Pre-op Information Reviewed: All current medica tions, pertinent results/ documents reviewed. Risks / Benefits: Risks, benefits, and alternatives discussed with patient/guardian who wishes to proceed with plan.. Ment al Status: Alert and Oriented X3. NPO: Since midnight. Discussed Anesthesia P chio (s): MAC. ASA Classification: II.02/15/2020 04:10:27 Comment by: Michelle Albrecht all info up to date, insurance active, ok to tx and bill insurance ---- Michelle Albrecht [id number] 1 [id number] [facility] [id number] Dysphagia, [id number] Name Value Range Interpretation Code Description Data Mariana rce(s) Supporting Document(s ) ID Date Data Source [id number] 02/15/2020 12:15:00 PM EDT [facility] Name Value Range Interpretation Code Description Data Supporting Source(s) Document(s ) Physician Luke MarquezIYVMTw7dKa QKJeL [facility] - im0VMGBIsX G9iag [place] f6JZ8QgAH4 eXBlL [place] 1L0rFKdT8T 5cGUv Medical Ov1tjS0IPX NlRm9 [facility] wiE2IMTu1E XRpY2 RnYV5fq7Gl bmcvV 6muKZ9ydAC uY29k vA3aIy3GKA 5kb2J qCjIgMCBvY moKPD wvRmlsdGVy L0ZsY WEvFNInn6X lL0xl hep4wOPxWC 4+c3R yZWFtCnicK +QCAA NuEXsTQS5h c3RyZ WFtCmVuZG9 iagoz LFPir7SaVp w8L0Z feHLjtc7Ot GF0ZU MiE98eFV4D ZW5nd GggNjk+PnN 0cmVh iMy0tFYA7I rk0o/ INFAwNFAIS eNyCu EyVDAAQkMF I1MLP XNTBQtDPQs jhZBc Bn8JlSKAlR h+Michelle fHsdZf6mKM yAXAL SUXdFRBH0u c3RyZ WFtCmVuZG9 iago0 FHVxd9BlJv w8L0Z dyWNood9Sm GF0ZU ElM34dTV0S ZW5nd GggMTA+PnN 0cmVh hEh8uWvqBl AA7gB 4VhNmELT2x mVhbQ plbmRvYmoK NSAwI R3ucle5NE5 GaWx0 ZXIvRmxhdG VEZWN vZGUvTGVuZ 3RoID pdMt5ljUIf YW0Ke TvTIFOz5SH PyDRU MDRQCEnjcg rhMlQ wAEJDBSNTC z1zUw IQQf8RO3LU XC6Ng PK2DCTlsno 0BWPN sNcu8nFmMJ 4AtI0 F8bnnhzGcu HJlYW 0WBP9nr0Zs CjYgM CBvYmoKPDw vRmls wEXmX4FgSJ RlRGV iv4AiD3ymg md0aC AxMD4+c3Ry ZWFtC Sakina+QCAAD uAHwK KS0dw0XwKH FtCmV dZV7jlpb3K DAgb2 XgOqv8R3Qw bHRlc f4MgUQ4DOU lY29k ZG1CUR0vrF ggNzA +BoO0qeUxu Qp4nF VX1Wmz7j/I NFIwN FAISeNyCuE yVDAA VyDSR9ZTBI NTBQt DPQsjhZBcL o2AxP RUBWOF/DQF Y82QL V6DOV8BIpW 01A3U JkYeYHX2es VhbQp lbmRvYmoKO CAwIG 9nhpy9QF7H YWdlT U0uQL1Ad4Y Ob25l Z35nmDCeOQ kgMCB QZ1D7vXUaY 2F0YW aeUz6YqONr aW5lc yAxMCAwIFI vUGFn ZXMgMTEgMC BSL1Z pZXdlclByZ WZlcm TaM4MlZTQs IDAgU j4+CmVuZG9 iagox FTJcRA1cni o8PC9 LaWRzWzEzI DAgUl 9fYYveFA9J YWdlc e1Vz4QocHY zL0lU KMIfLo6fAl cpPj4 BAI1wm7ToW jEwID Jzv2BhQpg4 L0Nvd H95KSWhStz yc3Qg MTQgMCBSL0 xhc3Q gMTQgMCBSP j4KZW 3gg6PlAlP3 IDAgb 2JqClsvSUN DQmFz ZWQgMTYgMC BSXQp lbmRvYmoKM TYgMC BvYmoKPDwv Rmlsd WVsD3YgFXB lRGVj p9IrN6yavt d0aCA eLBs4F19kD z4+c3 RyZWFtCnic nZZ3V FPZFofPvTe 9UJIQ fbCTg5vKRq gNvUi RLioxCRBKw JAAIj ZEVHBEUZGm CDIo4 DYeX8ZoPth FAVGx 6wQZRNRxcB Qblkl krRnfvHnvz ZvfH/ d+a5+9z91n 733Wu gCQ/IMFwkx YCYAM cGmH1neCtM 2LZ2A HAQzwAANsA OBws7 NCFvhGApkC fNiMb JkT+Be9ug4 g+fsq 0z+MwQD/n5 S5WSI xAFCYjOfy+ NlcGR rIBS2LrTI2 T8mYt jRNzjBKziJ ZgjJW o9KqSGh94r llDzn kWeS7Cmlcc uJl8O TcJ+ONORK+ jJFgG IwtQAf5Fz9 mY4N0 SYZAxm/ksR l8TjY AKJLcLuZzU 2RsLW OSKDKCLeN5 AOBIy V/y3e8WhF5 Tyw/F zsxaLhIkp4 gZJlx Tho1NL6mlt 89N54 hBuGQKN88a 4jHYm RlZHOFyAGb P/FkU qY7AwjJ78K g5ODB tLW2+KNR/X fybkv m8ab7Iz+4Z RB/4w /ZXfpkNALC mZbXZ +odtaRUAXe sBULv 2k39uQxMEr r51Dn 6lTbq9JyDR 4ixnK 2sz5LbDWH7 rKS/o 7/blAu9TF3 zPUr7 d7+VhePOTO JJ0MU AcD59qiaON xMjO4 kL9OGvlc/g fB/51 HhYR/CS+iC +URUT BihgfRGj8M 8gTiA WZQoZA+J+a +A/D/ oQRoTwS3ff R0JZY AqUhGkB+Hg AoKhE qJIuxW9New QvGRw U6qHbMgWon +8+C/ n1XuEz+yBY kf45j Q6UdlWJNjx ya/Fo CNCAARUAD6 kAb6A ZCvJZ9aJY1 AA/gA wJBKIgEcWA x4IIU kAFEIBcUgL WgGJS DoDLudJF7d BE0gz ZwGHSBY+A0 OAcug ctgBNwBUjA OnoAp 8ArMQBCEhc gQFVK HdCBDyByyh ViQG+ QDBUMRUByU CCVDQ kgCFUDroFK oHKqG 0jFq0XmlWH QaugA LP3kdEQbB+ hV6By MwCabBWrAR bAWzY V53JV6IP0G J8DI4 Aa0Uf1OUoZ N8EO6 CF9KF7OBZT j+Bpx OBQJE5mqom ERbCR kKReCQJESG rkBKk XjsM2wNmdI +5iki Cz9xfMLRMY TFQTJ MPtr7WfnGf lqFWo TajqlEHUJ2 oPtRV 1ChqCvURTU Zros3 IxkhJmXe8P Z2LLk ZXoJvQHeiz 6BH0O OlHHwCuI7f xjhh/ TBwmFbMCsx mzG9O OOYUZxoxhp rFYrD rWHOuKDcVy sGJsM jBWglG0Lrt FO459 mvMxkMI8FP 9cPE6 TY2PJ4IpuC 3BXcB X0MdmD6tGj jA/F8 /FT0GJ8Kfh Pfgg/ xe0kTAHEHa 6ESEI pJU1oeeCPY Eu4S3 dGBJS9zZ8G cKKAu IZYSTxEPE8 cJb4l UUhmJDYpgS QhbSH tF12i4ZG1R JPJRm VYrpjARF6J biafI z8qt0GrWel qBCjw XGEy5Dr2Qm xReKa QAqHH7GAyf JivWK N7HVUB2ovK XslIi x7ZBHwgQYB 0VOmG 0rQyVdlGOV Q5Q3m zcovyBeVHF CzFiO TC2HLGPDeq ZyhjV YOzH5FRurW 11Ebq Tac9IUMmpn XQUmm mkI6ae8TkA YqKnU z4Ne7Bqsmi FSkdo RvRA+jp9DL 6Yfp1 +jtVLVVPVb 7qJtU 46Mbdn3Tqw Hmo8d HM7YiPSsIt qTPUf qJP7Txzc3e f00Bp mGmEa+Rq7N E4q/F 6Yk1Cwdvil JI5h+ mo3rB4sIQl NFdo7 oRn2WwV5iv y08rS qtI6o/VUm6 7toZ2 ehCZ6oXcvA lXHTU wqh7ZmsH8o hgrDk 4BJvOK7CiT 0NXX9 qDL46kwMib N6xnp JlaD08Jn81 An6LP 0k/T22ykdE BjoGI BJPFz4Nar7 xhizD GNLkjx3Ad0 2MjWK BQzs9HZ8nH jMOMM 43bjW+a0I2 cTdZZ zLogl7CQ2w yTTPd bXrZDDazN0 sxqzE bMofNHcwF5 rvNhy 8QMi5PSwkQ ixtME tOTmcNsZY5 a0i2D LQstuyyfWR lYxVt ts+q3+mhtb 51u3W u8w7QcL5wL aNNj8 2bvhF7Hjxg 22lzy XN+5q+d2z3 1uZ27 Sy2pei9Ilg h9iv8 G+1/6Dg6OD yKHNY dLRwDHRsdb xBovG OyUwUk19Ij t5Oa1 1Cvy91ihFH ex82P qCL7CQllnJ y6N5x nY95wiurqb quXJc 802icvb4CL e9blJ 4XDxCi0A8I w99D5 4Zw2jXk4gd qudBz 3ay5m0yda7 v12xn 9kr2KW/E28 +7xHv Qh+LI9PWll 99Xzz ySv2L1as/e b4XfK X+0f5D/Nv8 bAVoB 8UWptZoVs4 CVgX1 BpKAFQdVBD 4LNgk XBPSFwSGDI 9pC78 w3nC+d3hYL QgNDt offCjMOWhX 0fjgk CP07MzrdnH 1EQ0b +AumDJgpYF ryK9I ncy17TFMJa ieqMV muEfg8Hnx2 jHlMd GL15vT6Lep tOIE8 W9k5Cci+Ob 4qcX+ vekyAM0aN7 hOOH6 IuNFeYsuLN ZYnL7 4+BLFJZwlR xLRiT GJLYnvOaGc Bs700 oCltUunuGz uLu4T ngdvB2+S78 ov508 ugDqCLh2Sk k3enj yG3r0FxyXJ wBZUC 56n+qfWpb5 OC03b n/YgQHr2AE OXkZh uXHeWefq8M rUz8z USw5ycslHa y5yX7 Vu9YToMCUS D2Yuy u8U02c/UgM REsl4 xchYSF9KfK jc690 kmit6nr6G3 2fJNy yfyffO/XoF awV3R G1RuvKIcoI Xnyvp W9Jlsw6sL7 68uWj 2+xm/NgbWE tWlrf qj7JnyxxMa uZl1P aIdNhdXs5M 7rW4s IpsRVOzy8x KjbiN oi4Cc9fi4n qk0fS 1nrU7maMpg K32/m dw14rl8HrJ 992pK 0ZbDMoWzPV sxW4d rb60p0BUoW Ls8vH 9izxf6sJ8Q HyY6X P2agmJGiR3 G3i7B LsktaGVzZX WVQtb QnzBIQ3QwB V017r DqnsurOb1q 7r+zx 4QCPt4QTWz dur2D vzXq/+s4Go 4aKfZ l5XxbzFaH2 9n/N+ cc9DxYzbYm DfuF+ 2UKOJ17Hec 3NLZo kQb5nm8H15 mDCwc vfeH/T3cZs q2+nt 1niYcqcyc1 /m/jt 8eNLg1xVuI 60fWf 7NX6LwkDyO +pc3j aZqtLu4Y3e Hj4ae LQ3j8Tk81s L7/cf 6b5Mg8aboK kJwom fO63J1n+cP pV16u ix2BTwkFl1 75yJP MNbT5sq3Tm Q2fPn fM+e1mufV5 ne9fy bX68Hto8fD ey65H Cpc8B+oOMH +x86B l9KJ0tzv2j vO13u OS37nUAD+5 XTV72 vwytXjX9Ys PyR4e tR12/eSLgh vcm7+ ehW+q3nt3N uz9xZ cxd9t+Se0r 2K+5r 3G340/bFd6 iA9Pu q3BaIiwXM0 Y9yxJ z9l//R+vOg h+WHF wC9G9mZlH7 cmfSc rP189mVkX6 pOZp8 U/K/9c+8zk 2Xe/e BeyPOY9Fw2 c9PzT r5tfqL/Y/9 LuZe9 50XQ1GeczM l6XvF F/c+At623/ u5h3E dI162LoVi+ Yfuj5 QMZb1lqCX7 9+A/e E8/dRLX7yq 3RyZW TeTfGfAX8s agoxN tKlOA8itdm 8PC9D x5muqkNaPW NlL0R ldmljZUdyY XkvU3 HsiGvoON8A bWFnZ X2KFZmrvUM gMjkv RmlsdGVyL0 ZsYXR rYRQes3JfB 1R5cG NmOD9qidEq dC9Xa AK9eJFmTJN vQml0 z3CsxjItsX BvbmV ztKF2X0ypi md0aC AyOD4+c3Ry ZWFtC edn3xJbLTY AAMKg /qlnDB+gAA AAAAA gGqzrly3BY W5kc3 RyZWFtCmVu ZG9ia goxOCAwIG9 iago8 UQ0Wn3wxjd NwYWN rKs3YT3UBI XNlZC AxNiAwIFJd L1N1Y xP8wMUoHU8 hZ2Uv YNKqU1y1QJ I5L0Z poBYlbk5Qc GF0ZU HqX72oIC7Y eXBlL 4hZPjuhO2U vRGVj b6FiXHCvaN M8PC9 Ek6r3wE6aA DE4Mi 8Yg8fkxnAt My9Qc xNbeBX4x0S gMTUv Qef8o5Mqiy NvbXB hakSssMH8S j4vV2 lkdGggMTgy L1NNY BEoNHL9PMH gUi9J bnRlcnBvbG F0ZSB 7jkIwN3mun md0aC E9VUZ4W1At dHNQZ XAUi48hh97 lbnQg OD4+c3RyZW FtCnj u2VjNDPZS6 sdv4i JeZyE3Dxkn mrVlc 8EljhPjxEh CjIor fnC5OlS6HC 0CGgI xpAWYhKU0e qqAgD aV0MmCVeAK wyYBZ VERUFFBQEC URWCq nnIg9HXU2S 9+x3f f1wTvay0U6 frVvf 031uw5m8nR RQ/K+ euwlIe1CBY 1WMXk xJXyh6+uf9 dv18W oB5IcP9DjA 9x7+K jn/7cX8vrE 9E2DP Denice++wHfC4 xC9M3 PTVpmVdPz7 O+RpE HteRVnAs6i IjaRK I/K77SQWtQ 2HEs/ oR7fYbYTRR 44yQo XJSRG8HEhL 7OLLi 9/tdIUKeCJ hMU6S VBqZRcs9jj x6sPh sOkozDNec6 2gDWW 8TNN/eBDB1 B02eo Qg8h+4xHJL a1lC3 BBlN14hOfg 09jCv Mes3bL5rqz 5mppX tdryLKgzQZ 8PJO7 kTe0BzvU5j xpedf /qm1q/2COE qVQw9 RFJA5Zvm+r 2XeQE UKeAngDmeQ GROea C5TkcsRcGy EImn8 Mueller+GmLQyxM JoMSO SA+/81GRPy XmVMc 4IXGa4lXnU hca10 kltr3ZrMkv 6+zl4 4nc5JRDnJG Q+RC7 nVZP03+mg+ zPcYc kZUHooHABC Vqam6 F1AZk/wwgM GA6zd X/9zcFiKFm 7EWEd rIQtDnoZAT mDXO/ 9sYAmOUBKv T2jvb S6HCotfkQQ CALkS /1BLu5y4v3 11aQj kux6MGp93q G+dDg 2PukDtNsye 5g0BG goJNRWPHX5 8PMKd kx20eeuIm9 5YsRo frnDvMIzbV CmCUA Zfrr7/2yXV Ggx5O KyAqLCJhGt uH/Ie tebkiRSMeM GSJ3a +tBgQxzPGH ByNoI oBIJ3MGQ6b 9xPsx pCTCVst0+9 SUROf 1/hci/d0pH ZOX+G FBjISdxzEd mz9lC rSr3DPHs1O oE+si xwT6lo4Ufy NU+AU VwpJfdgrL/ snzsp tmPjhqa3x8 n9FeL fB88grt3yM EGFSZ sznO6BlYJo tHDPd QmnW8hZ3Or galk0 KcbbgvKLam WHxEj 5ipW7N3t6K yB4da w/a8NS2BG7 bndIT Ttu9lZBWem PVi+7 zToMoDoRlh 1Ii7z mvzWfNL+BJ Rc8Us JFJRwjdg+9 9ptlI ghl/PuYkmX E5RYM E9Gn8YbGZC orb5v vC/Vwg4e3n faxmb Qz5Juzn8h5 WCS/Q sGIYXdb7gv vaPtP 2JBIVZBl2f gwmEw IR39N2y/rq DrWVt vfCHHwjTRi GYLSO uEFvRssRl3 OKaFp 6wSY1WNMpo CBOcP w2JkIY7BRl j89Mc ZwRdmwTR7m HFCdi cl2CjSFC+I vPis6 78JzoMmHa+ 2qeRL xdXyIBKYUP yVeZy pdTK+Plugt Va4/l IKwiFG9Nba p5jTi TeGInLzTjN 2PFZn VjKjBTGx64 PeiCT YWKt7hAFGU Cj+OT hszfIgrPaV NynQc sEZGYFeKco Bc69V c8eIw2OasU PgY5p D51pOuc5+m R8uE4 WBL9rgM46O 0Afae QYSQTyJ3HP WUPHc DSTDBFdYwO jp6Ri 0aK/fAQUXI DrHZJ OUk4BmQNc8 d5QkO sr1touk7gD /Re1w SANdHszxIK wI2vB rrxmRLvGLv jpmiM zbFgyqjPHL eBLXi Sa+oMpetid k4MWY yPJX5rJeM2 XnZ91 XLXBt2uDXA wPkDz MxBn6gunMY x8k3b 0SUh7Bbqke Fee6g WftHvQC6iI Ihu2q kpDiQ9UJ1D TjLOd /Dt5Yp0jSe b4utv GUh1VX+WOZ rcVjB 2LwLfwiAyc 5oPvD CHWJMetDvo OmGoh j+hgV1tLvE ZBclC AGdDWkF6Oz /FA1q nI++EAyiUx +Nl+M TlS/JzWQXZ nDhoJ uRcMvtz71Z aARnr ipePG2KUJV RoQRm ggpK/9yqH9 RL/JS OqoH3bNAow vtBvw 6ZHDwa8MFO +Es+3 tZR5uLniNL HpKHp qRgRG/7lER BBObO GC+XkJckwj CyOfI k6O/hckTzz PeNrX 9eEu6nTMvf lpWpf lIgq/iabqO fRqhV 02biCIMMlf 74nBN 4lHSN9iqwL mKDGD cdIVaYRm9j NoEpD 4naJ6N0wEL V3ket UxjETdU0em H/sKq HexIiMJFfn eEwxO rAmqNAX9TL /uab3 0L6K0c6/+V JHBUQ qkm/EtX7SA mE7rg 5T1R21DKUs SbxcD R/mvpi29Av kP4fI OVE3c3oPV0 FEjVV ccX/or5V36 1AMQp CpmEfEO1rY 52Dat NgeZwvlRGS 7Qwp2 4/qCf+4U9l 1cdfA sHqwMRArLa 8QyXA VLeVm4ZLSV +gzpf ETkX5zy++n e9Zlz L5bnKd12u6 iJlvG TB0ku14sTz B7fxD LK62wJ+3TR wJMlO v2iy6Z+6YP d4+BR +cUXoCWIBu PofUl 4lrcmTH7PA gQ+11 fj9S8cZpbX 3XL6F SJCZJZVSd8 6EVmH 91/6d5Rmoa IZXMR koM0ytvILs UdEiB lz3MaV8m93 wSkNT LevBFelO0K qUwKR o5kjO8DRCB Ryf7S E6frMzWUJ5 8xOFE AfUZMWbZ0e jDAuu VZO8lDBd3O tpPVS As3K/ZF4Xj XY+FLOREZ 1kuK/rW2Tb aRYB4 3v3YRbDS/Z HvJKE UVN7VtI9iD YJBci I3orI3FSQv Hbi6S KvAj/s51n+ y7uOJ m1SMGCersO 4xqEi KPPJTRSdFE QKvnq W11ziq9iIS JiBaN E7bv+CzMJo 4Yuqj E4VazbrRf6 WUReQ F4jhflxFgU 6MckJ aGMRDPN0dy u28L4 dymiwtppOR eFmmC fm3EFcXePC hlzsp k1kxWep6wQ ak8S1 S5RWeakhm0 /ivS1 dnulvMXIi0 tgkBZ HNtolYNiFT zyAPM vW7dvD+ERh PxqZG JzgOfNTyfc E41iN fgqZphtt/H MNfNy XBne1SJEkL x+2to 63YFJTfNdo TjqQJ WpoMYbbet4 HYjb8 LFgmjz2rzm 8jag9 FIeCJvt/5g jJzDn GHsjRWuNsd tgHlf AJGNKMPXxU Y4l3V oEYk3OD8LT TekCD KhEI9yM7Yd V7wwI czhFKBjv8g LEJkF pXXyd/rarb sTlwv g/gWeDJ0zb WvqzZ y/e1D9vev6 vMiJm ZGqYBN54mT jvrx1 EWUKXvqqtL Kqey/ lRWxEXkSL4 xte1D Zkd3uKqOXb uGK1O 1hSxiw9zim PRWSH M2zZySATFs ETqyi 6hqP1zeCuX p/Ywl gAAvK6Oo1e o8FyV tCJ9stCjKw PnohN kn05jFAP5B 1ygqg WqUjtfNYxY uPknH Hv07EOxT6i JFAcR GzS3PIVfiA I9Jft Gy9qoBpH6P k5Jfe 59PDI7BA4i he0WN bwiIR5x3qW MoIub 8Ro1VupIfO wBZvA tAVGLG8s7/ Xb92E sXPOYJGW7L PO3hY i+F9EKd1mH 1zOc+ uvwtjskviQ i3zue n0CGidmW8P rW5jo evzhiYyNzU alNjc 1PHUSL67sk wEwu4 uGjw5XC5rQ S8RyR /jzxWuUDnN EgsTy PJk8/i2/W3 rorZc kqW7KpUr9Z 8o0qH DK9EhGA2Lr ol9Ii Wuuk7/Tiug iiUoW CqRnvOV4ac 0QcFN VYeSWSVQow FJUcC V8UNAfZdVa JoQcU aEjBLDYLlP VGjrB YjEjpsEnv9 0eT5F 9KEfFMeA0W JDlV7 ctaMt49R00 ySKst ejfwRdE7AQ GG7JD dL3OCMEq7I nG1xt 5jUCnhgyWe WNZos b99R9en2Gs 7I+ds CZY+ZFUaXq XC/AE ORy5pd7Yf3 9IRcQ vIEyNCCxxO i6itP mJOKbM5xqG JwOu8 d4bj4JVNhb 56p7Z epl07n/XLP U32md NFFzB0Wg0J VNH2G EKkU+Lez36 MwA6G IGX1/G0xV2 Q1pqz 3ugddFk/Gl bIamY jo8b+xiJbf Y0dnl DV1qiJwgUn ItBpu NnkXXvfU3u 94gp4 EJBLn2pWrx PDHLf yxnw5/h5Ok 7D1zv cuYouFu2vN 9QB5U rcktrcTpzD xvUCK f+26yZph5F W/R/c pLAxWytIlo A6Ibm kdnkV5pCZR TfyxT OE2mB9GrOb L8YeL dV1BomPJn6 OqqBi sl/4bET1/t jcb5N 1pYqtTfeKk Dt0Ar cf4d1hmQ7F cfP2k N2EYj5EnyN m7xnl MvCrSgLLQi 47JL8 EemWhxBmCS p8Ino 8BSskZLr28 Df2sV tf2Wf54UbG agy9d NxRocE5PRO wqUsA BXzmy5VoPZ rVHGd cjITPsYpPT 2ofy1 6e0ZAW8bu5 jAQG6 wTgMiAGZQr 5Q+k2 5NIwcqRyLR iXSiv rCuravCPK1 Jc4Y1 EyWq7CewLr BaMNt 2CecErvPBp e69kO YKMqUjDNyp TvnOI cX2fgS3hQb fQT+W AOvlkXAleu qFF8D WKQGx02SV6 ppA2W DCoDPErLx0 0sdBZ axPWd/FubS Mc9cl pen5EBKfpQ Z1Kbs pLZ30pCfm/ u9zC6 v1e9FxKB/f Euy2o UxD2NWmXV3 Jg/NW A0ahDECKs8 pB4eA WYTzw7kmdO eCOK4 IEgmA37X4k zA+ab rniKhSM3PI /TKRQ Fx/2L/dwBU jHL6v NE491qdDVM 3Hl4i OLALEIQ80W Qq1G8 8DmNA4Oor7 /2Pa2 tDSlWJ/xxl xpddZ X/zmMXFYyP A1ihn 5AJev8W7xb E7iVx MrE4rO5p16 RvMA0 +K4iqbj494 HgysC yga6/3t2Sl NTS3y CpMzy0IhIq gPNlo b0hHR+9U0Y N/BwP +d3GHbHM2+ IRVUy /nw4lq9IyE 7oLHq 56IX1zEKiE pMIfe 9Gi8pjmOSY eMPpE RG8wqPo0sk GTxjr iCcxMtLmig bqNAx semVqfARCf 46Kjx /vDBChk7Wr KuwkQ VIMU2nV4l8 uoUBb 5mI/MQmOAG c+mtT l4SjK4Gx7n fqM6a auRjdjRNe1 0g/P0 ayNEuz1Y8M T2770 T/ECf5OWce F97fZ H1+DyWzr80 vtKxt T0YsDrY0AU qbW3Z Rhp405gOUz Qp13C SPtV1JsPul upfx7 N8/qVHhQ3q GWHn8 eHz/Jm1pVf 17i3l o/F2i3fSao Fh9r9 nUOvln1/5X 76Nmb kHYDQ1awKc v0l1C WMgGZTdYwF t3MPa +yLGvsUzc5 ZzRd+ 8B9+zvHdMs Gb3Rn TBj8El5zI+ oWX0N fiZnrD+UVN f4dFT uhHryjwlLv eF9K4 Pnl2f5UOKE Sz8i1 326YG5ZRUx Y6Y+/ zNWiIlfvEd EraWt qW2A+by89J TVPlr vmzPnmWS48 QJeK/ 5eRWh6uLIO gSxIx Wid1ryUq4A 8/9cQ fD/oyRYj8n K4MYJ qPZhCs7uot aRX2z rtmyK3y4od 7wqru 3ONS77Yelb v3HpV KNwC6hkt2P k0KaL sssN637pc4 FpFXd dyoeghKVJy V6LGO nchsa3/6Fp G3h+R R3/wS7sCBn MaKge Q8xxoFFxiQ 3wSZr NA/4ysRjq9 kvEXk 1EPXZ62SdZ XAdQg Yzu8sDSyAq mRLTv Kb0v+3iLwu mfKgO nqmRWtfr6l frJ7/ U4sjXa0NIX 5kc3R yZWFtCmVuZ G9iag dzEDHnTP3k ago8P V0Csh74fRl 8L1Mv VHJhbnNwYX JlbmN 8I0yaoNS3Y S9LIG ImcOFdT6HM IDE1I DAgUj4+L0N vbnRl bnRzWzIgMC BSIDI wIDAgUiAzI DAgUl 9vBGbiZK7Q YWdlL 1Qmv523ckN lczw8 S7PunX9hA2 BhY2U 1MM1QTDFjo Wx0Uk kCLRB8SQLb Uj4+L 9Kjm1NROGS gWy9Q GSPuL1DubW QgL0l tYWdlQiAvS W1hZ2 VHJA6LrUUe ZUldL 6HkcbH8VW2 IZUJv IDIxIDAgUi 9IZWx 2IDIyIDAgU i9YaT AgMSAwIFIv SGVPY iAyMyAwIFI +Pi9Y I7NwHEQ2VU wvaW0 lSjh8NGCbO CAwIF IvdGcxMzg3 MCAyN CAwIFI+Pj4 +L1Bh cmVudCAxMy AwIFI vTWVkaWFCb 3hbMC AwIDYxMiA3 OTJdP d9PGG5pm9C qCjEz MXLic3CnIf w8L0t pZHNbMTkgM CBSID E7WNUwFgUz NiAwI NHsK8A3fHK vUGFn KXYlI638ck QgMy9 QYXJlbnQgM TEgMC PERl2AKX9y b2JqC xA1NFLgu4S qCjw8 B7lmq1OuTN wvUy9 VigAie2Ynq mVuY3 ofW0ZsQ3uQ Q0Jhc 4LbMHQ6HZR gUl0+ Fo1UdTL2zO BlL0Z qrk4yHcxlz GVyL0 ZsYXRlRGVj b2RlL 2Y9gANkDF4 iamVj bL0MRKCejV hbMSA wIDAgMSAwI DBdL0 Clzk0LhIPj IDEvU wCgh4OfM5R zPDwv BPDyR3VxlI svUER KO3XlmPGjJ W1hZ2 VZM4vlROhb Qi9Jb JGlBFdtE0z PYmpl R7M8BF4xqQ EzODY 8AXH6YKGeY j4+Pj 3eCILaU2Zy IDE5L 2UTx4zdOPC wIDE4 MiAyOV0+Pn N0cmV hcTg7xTZCs DU0tj CzUHDJBwAR gQLjC kXyJSY8rhX hbQpl bmRvYmoKMj AgMCB vYmoKPDwvR mlsdG QjP1WbKIBt RGVjb 0XvE7wyxgt 0aCA0 AIKbHv3ryA JlYW0 KeJzdXVlz2 7iWfu 9fwbpTPWXX tGmAO lSXMxTg9qX LS0r6 Uu1hdbAunY cUqYh kEvevnwMuA EiKMg ElmczElVgL gXPw4 dBpWYA38EK GPUND 6VV8ayIoha Yajm5 vjw15Nms4f 1fY9F ykXafaH7/Q p8tns ZJuJ1GiOmc wibAJ U9jNWa5rhY 3drbT gK4XMytEo7 pm1Q9 hFf7spsBEU Fpv/O rmd/cub0// WFn// TdVpp023WE xfd+1 sOmzKO8N7y j9MjI 3QnUYPCX3O iT9rG OWXgAn9CtF XYZgW PW3obIwhw4 0cGpe DjiPlWbZt2 NYggX yfsu7yHixz qrnoJ ZkmQTxG1XP X5muy g7g0c6UWuU HcvL0 iSU52h+E9h qN3k4 wxu4ddSGth ht7d3 1+/eg4lp10 1H19P L+3oe5aIbl 0sNr+ fwmhOyCaIy SszgF z1OiplNzAu EixJ8 +YhDsJhsiX Kx1C9 vd50pH6V+d 4x1m0 sUHDPMTrHv o2HsU ZyHIJdm4Cz 5VQzY LICkNuDc+X 4prpE PJxqNjpJi9 X6Y0W ObLMIpgzbX Czv/r L0nR8A6NSM t9yD8 3gUR+/ury6 APvCy rX4lQDORPi WxR9G aXzn/3ozNc Xz2+v sz2Ts5oK93 vp0uS yqFOW1w5Vp eQ8Y+ x+e2aPo1KV tgm44 ewc3jH60df N5ODs 9B8nc9DwiE mJFtS rX2tE3xndV +FSRj o3hIb0XV5U IYj2H AcTFykeUct IjHEH fhq4TZUuBC WjL5C 0Dafrh3RGs o1fQd B4jJTOvjp5 DfvJl mUs7DekD62 xn2ao Vn36Ef8NRl lIQX6 8jE4mVtXpw CfY8w TfIgSjLh/X O0hAc ibq+3QR4JT aLkuT UvknTF7ccA vk6T5 vma9ufem6b Zv1tw MPswWY7yQ1 Ichtp Anc6zdQRB2 SBhDe R1SZVmFx2K Jf3lV WJDaz9H99l ty9OC 9bNjTZOUjQ ScFD6 ejHODb4ZTu q5meb qsOmn9TdDm CiNT8 9uYBBlpTUS 4j7Ub NuA7z6V9KG 3bIAl WNSobj9XHe hUtfh 6wV4/USXw8 bd5ap tivqnZzA9M RhoXg Os61heTv0Q fo+Ad ojIyiao4wy EDlT4 Xc/VPdtGlg GIZu+ I1TlvNIvPY XuXbX 5dBfsiiMAj bmqzT JijjvsSvqd 91zXO rgt/k+s3QM jsoZE VT3F0qgOsb vUMSG 4tmg5807UJ dPV// G2hq6/qL9q SUgAQ 49H6jCe4c5 HkF31 wcr9Yg03KH XTb9o h6epCO1t22 0Zgtd us2ww6m2J2 RyLHz xrwR4nctz4 tC2sO 9EOrNIlC2z vj+RY fD5YTeXJy3 Nh1c4 qPCmrMHjH9 n3cfK bGaX/+9wLM ZiDuC AxsTdMiq2x tP9rH qbhMDB++Rr 6HVb3 yq/r7u7wC7 yUvbg 95C+h4inKL smXS3 CYUz8e9B02 0h+nV hDuSEBOcNP 7s5Hw wxRU1D6St2 6qzgO o8n34vj5jB JvP37 2UqOKVFyN0 X1egb VN6XRwXhHO 4uyuk woPM7iXqSV 8x542 i4U8WQ5rMB DjYEF JzJ2NT8+/3 sltnI O/puXFSDjq c+TfI vZQQXULekN sRNqu FkXiRJ+e0L m6HSO dFPAalXfcJ XcPPw cUto+vZOFb QjSf9 xrmOqtr0FO LI556 /3InOW5aev Fgza4 iG6Ccb22FG XP6Dy wVzYzccxtQ O2u1/ E77gYs6j52 jqCQS Ns6v63dyW0 ayh12 nHbLtMDDu/ VOiLP pyfaKdiCzT aGICN vJKojKgOYO 7KzZF iN8PM7ub+r B33z5 795wyOclW5 66Zid EBOzeCbj/v k6YJ8 KscUTIcwYB k+l8M zcJI54foh0 w1MWD s6QxMvb+Uh 0+Joaquin WeerNEpWzZ uvBov SdibQdD753 CtE+h IzYZq64/gI Fr0kr iuyY+GbEMm tSR27 JKQTOzj9IB tl+6A NOpk8hNgth 2xP11 sQs7/xmK5D sQqsd inHXGhaIUx ILBCK rwnTZ6LjvS ysbA+ Ii99uen7uQ SBhnG RGv4BRiQZG 9GxLg o/M50qoo1P MgumM 8r9HjHKdcX Pkt4x PxScO5QveY LEkZM ukfQeCvNal 1re0F kaOjhx/WAW bWEe+ 6HQNKnN8jE 32Gos zk7uSGUCCp 62WQp cQFiDfUOS1 11js2 AKKtoTVaHX cbSya DIheEARRoy 2H2HG jxnLzz4UCp EWOe4 1HdlOPY0Zw lXqWs TX1UTtUmay U7ktp 2aCD0G2eJI 1z5et cBMzdz8FWE N3XYF r31fVh+Bhavin g7bZZ 6oPahsHnbH Nj7M0 7qrEcvuqMS sRd/R BCTPVsWlv8 a0bSG hkyPRPtEog GAgDn oVqzNqjYaE 6jtyS RuOTJIvShN nh1ve fsELaEt4ET gp+k8 XB6xRfTFMm 23WwI fbLNy8A2BQ veIIx e8K37YjBUZ vp6JZ LGXzp3Ktdq YlyIR gLBX2ykaam iSg4C 4PdMkrjdMX AC6uA cjOuZg0QVo XcXXd s99eeyn895 4XPm0 6I5WfhCAnb 7TxyT WDL24Nvaww 2ydim RAGS6DiYTy XHRbv elZkAZtJug 3pmPs sx6NUu2MXs DFJo3 IR5XpJnxqt 5X8GN N/fZQBjyKP irHAR ewqbuWRk2s JQvgy h+is0iwXK4 Z3AAW Z1Mj9tPh7h sAS+4 VUuSRERwmm pkJQC mtUS1nYDpO Fqt8z MfmD7QWtje uWX01 19R/+NwLew 4UaeO P49NvIvy6A LqtGG f9qghYnXwo z/cXf gv1WyuId+Z fUxKm lwf42Wm2MB YWFhR +RLQYUFrzu 6TAen cClPF7TXl5 JMIbh re4W6enrFv ysVH6 VZITKs0X3y XKC32 bnYEx3LPiz fcM83 7yw7zuqCzu +CQgr OIGKbmUL3N Bmm9C NxSTSMy51H KTAvl UIR1VPLEsi 9+SSk olD4z6l3kr 57IMo w86TYXX2YY LvOSE eWtz51EH2O a85FA LxxFoe8bPP Em6Mp EPrJUh6g8P Q5CbF HGW7zA4zUu gDLBN oMiADL5OeU kC9bw iYRBIWBOkT YEHhv xqqSYTRYPv Vf18i SIZxv2Tc6a ACC+L PMIonPUWH9 uOdtm 0JpXU1CdeJ I9Id2 1zPERSavDX uN29G TNgc51Nr04 G4uhD gaiEgmyVse 9xu0Y ylCGotdYDH XgO9t DyJTvWCYgm VXu0e l2uBtEKMES X7Kcb LAaWDV8AiS Q01M1 hXTTKI/ygq 6UIH7 XhXeF96JAO YLyIJ H881u3EPyt K57x4 pa/NvnUKeH OQNbk WHMVqVSo8R xjlAw Mrq5/yNZ9v suSSq btSFP/UKvk jzzlE 66DZEUymaH YqqZk XarE8cY1sa x+jjK wLmL3W4m02 0ZhAi hCmW0vv0UL YfuZD jLuWUHcBWD mYiBK eKVryzXlc5 WlO8F +8WVy0VPIW 8XPni TLNGSZYzIw uDW3k 88xCBrpeNH rINq1 96O2cLra6A 3SSAh ybgVR3NbED UmUoX Uw9UstFWtQ uPFkB gEhWF4XjSL 2FHXA cDYtxU8vAK Py5t+ ol2MIh4KYj 1/WhN QuggxnyFZc 0m/Bi KosOTXm6hD qOHha phv6/V5UE+ rB8RC irvg6rjryn dgPAp y95Iu3vUXw +i3L0 zSWgMLwLUU 98RZG mEeOE5LQPN 7AZM+ VmC1fgZAnL jahPM PgJWOtZIHg 5Ii05 BrgiijomBu IVXOa q3pMdiGn0i GWgLs s9WOAslnXU RVVw2 3FVLHfSJ8t yQfF9 21GknQQ4vO ESzVX xgtk5RtVAi gxFFX DQ/YSrqOAJ xf3IE 1jdZK/9Jle kjLko kZWglcbKyq LO1Ls OuLQMTckWA bhmgx mfboDqIPuz ZP4NV Jd1g4w24hS jLJMz Kfe+XCQ5Og mBN6j K0Oid630Pm /gzlj W+A2WXt/d9 kLfjq 39wsHB0pDf 9y0Te 9ByMKMqBwP bQCOO yddgIxNuGA ASRg6 ovRwe7S9IR mAYPD 0P4UjVMBAn e4P9L nuVra5hmYR K2D39 loc6a3X6KC zb77P WiT8Ow03hE S7v6b pgSLyxc3Yh opEhf kspSB7bBDz 1OCvF 6l/Cu98MFB NLdGd ifExbcWDA9 /boqN JU8LMaj8g4 j14Ri qPT8csIlsw sgkP0 hrovHVp8ZT K+J2b xHg0H/c7fW Ojx5L 2vpT31gmvV 1w1Qr 9TfbfIew3x wRUaZ KpJsmY7xhG cEQYK x7SJk//8AE duGjs H0tSC8+Mf3 FULP1 LFbbfKLGOr u/1UU DcvVXeSWpx AEH3j 9BTA2QGvfs Y2G0x sKn6VwwMCv O1pQK 8kEhpmwKFb WWKyw QuD6TmTtQy cgpSE 6SKsvabpVl 6lwmo bxcwFCS3+o aeccX j7Io/JNWez iCG6/ TatyLJFLUB 2nJ+c /J3GVbgLAw 5j0/N ZTf1m4rDaq mh0DM t/nH232VBS wysDn A58yMpg9w9 GDwaV Iedqd8970t 0gOIB sMu+fSZIJA 2fYpz Y+rnwwlzwD Nb3cM 6SRl2ShdIO ALqHY XmGHqvvVzw WOYWH vuLQ8kfc2e vi88N vadby7e1lL WHVh2 mv8yCBiXsn RX0Cs +JfikDw2qs 4t3LC 3k4E5f8ZJi l0V53 ioubjJQwlY ZT5Ql SNyOSyxg4b LKcpq PwcvM21BxO kg2HB dslk2osxBo ZMiaY 8ZeTSsrHP2 Cduap WLoPD6XiK7 dDGS4 fAcexL4eU2 u39+8 UN4/E2jYS6 ySrdF aZZIMMLuPf 2WIey s93h8Zm/9i DGU/n /SHx9wucRs SeJID 3nXn7gtRZx ORkGu dUwc3GZjMu VUZ4N NYlfNjBbS6 CxDZr 9pSpTLpNzx XRTf+ uN0mSmnDIP d/YF6 5n3uGWjIwJ t27CN fKxdreV5Ui GCdxM sUuSW76sD8 bQ6iX fFuJ+R1jQ2 Tarun+rV NrVmOdrqTI UbCDF upznwfZ4G1 +jZ/K VdBbvR17LU 3M2gj +z0dWCXxtp WJOUP 4hH3GRLheA +Maz2 poMkzcQDFM VT2fh J3Ikqa/Bkx g1xp6 KjtYm2rd+d 3O3TW ZGUU87llut WmSKv XI3UFEhnQQ UVBny hbzBP2tceY jgx8B 49Xt/SaT0L rCrZp OfO8kPsjXx tu6Y3 wqHbwW7zP+ 0ku2H bbXYQS2w7+ xFPSt u21WbpU/nD NHr9t E9j+N7oYx4 HaHT7 xR8xPYNbmh 7yMUy g55TDcoqH/ OjzH4 eodDsSqViu bvt4b OnVEBWpnZB ddQlJ wZ8teutR8z /A+J8 /DNTBPV4af Jdss6 Z0emC9dxoC r9S5S QuZrGXr/OT AEoUo p0V3DCCqnl /vk+p r24w4jkoBn AAaHY eD0FNewS57 XoTc5 9wU73f7+mM ZVz5s eJGsooRVTW 9JWEs sSy0rU6aTf bmjJ+ /XAtFq5T+U WaRa5 nhRVan/SGY tX7VY 8apbOfVj+X ZVKxN v9hwU+7GsO 6rliT e9s1Q/lnFb qfzw/ qekogs7ctq WC6eF A3o+58eOyV ItN3z IacR457qN4 htXOF NIAHA3Iu+m ajFhc 1ED9aDyN9c cDNVK w/maBcqtWi B2PqI 3Zw8bJDlYo uNgYb FYcMAJojcG jT0eM Hi8vEXfAtR tBwtG Ya7vSxbY0f iCv7N Mgu6P34+KI I6eX4 KC7NYQy6rN 3yKKN D1xGe+fHZp ExxAH OJKOfrfvXj /tcxw zblHCiJ9Nj j+tuA sbH2YTp1lL VCKWk DzYPTal1iU TkLjV t4tOTM+DqX c4b+O w8bYSfmzc0 3bixb DHrxlwOSx5 mu1a/ BvutIkL88Z Orlp6 mMnefr1klE xBxrn agNvpfBK0b 0Zob5 aq5fiuOtGH R0J7f laTSEs9usB pHz1I 0kVX5wM0HK NaY4n g8q2NU1ZIo OzXTz m6gzhpE6E8 1LfMs z8llo1chr1 JhG16 x4bNCY+HQ+ 0gSxB XheRFTnYpy 3kCq5 57O1l2Rc4F Z1gK1 9CFI/CDT81 K+Vl8 ctbj7/ERxq N8aOU GXGGUczX31 /V4yo +sz+5U2FM+ jfLtE J/e3XTB/mN 6rTIY 5RZd77BAFC n9IEl Z5OQu2bI0h LiPH6 sK84qshIfM KHCrd sLjoglxAs4 o2jvT H+hVgcLWar moWgc x1cRY/fwHn +x6CN 29AWRvhV02 bfTB/ +EnqaEU8yR f9TLM HqazNOkcms B7JqH I3CBxmnenI CmP4z VH2BkX/ih0 FdWwY aHhwwmHryJ pXZ7C NOCJftnK2D QqC3F F3cCU570Df 6a8Yq TsZ6qk9m3D RXHAf rnpIZ+Jres ZYtAi HT3XGepSBb zUJ0r YTe+d46d0Y /IbQo 47aUX8E+W7 9Oy66 Le97YJ2qQ+ 6/62M Pxw5YbupTD bldhW /cAhTSBO6g 4EHv5 R/1naRBZgp +N3Bq TmE5XtYR/R hl+Zp Us2qcCmeiL grT4E 6yOPn1YgUK Je[facility] [place] eot2sPR8WN dP/XF xY1x0yHr4T 4sWMr rtqj+FfG2l bdF5y ny6hgd+lcr WOWG+ PX8FC+RfGo Y/A0L sT/LwH/hhC Xp3fj m6UUihPfqf g2aNZ MJs+F1LlNg QXTUF xtH9pK+trk NlFEZ ixn97BWqZW pKOj/ AQlIZeYKZW 5kc3R yZWFtCmVuZ G9iag qnKcNqWJ4m ago8P Y7WBZ6fH8u lT2Iv E3AleNznIX 9UeXB jNV4PtEMfN 0Zvbn QvQmFzZUZv bnQvS AFnjmW4fQN hLU9i bGlxdWUvRW 5jb2R dltkuM4atM W5zaU NmR59lmL3m Pj4KZ A9gv5QiSyJ yIDAg o1FbDjn6N3 5hbWU nLYMacw7Df WJ0eX NnC9C0aBAv L1R5c HEeIi3kqU5 CYXNl Xz2kkJ6JMR x2ZXR eJ7InBB6ze 2Rpbm usP3lqUP7b aUVuY 85lqY6xUy0 KZW5k q0VaQeGfFE Agb2J uYdp0B28wi WUvSG VYfa7AiRT8 eXBlL 2O6eXIhV1U 5cGUv Sk8spT2IFF NlRm9 ruM7GDXl5K XRpY2 CgFb3qOI9K bmNvZ RjdPh8SaI9 BbnNp MT2vz0Ztvi c+Pgp lbmRvYmoKM jcgMC BvYmoKPDwv Q29sb 7TAuXPiEL9 EZXZp F6VSyzM3Q8 N1YnR 7pQKyKS0pV 2UvSG BiF6x8TFQ5 L0Zpb FQejo1EiYL 0ZURl S65aLE4MaJ BlL1h ZAbvtD8XoD 2lkdG kdCHmzY3Sf dHNQZ XNSa26aq34 lbnQg MO3YVZ0rrD ggMjg +JjE3nxSfs Qp4nO 3BMQEAAADC oP6pZ wwfoAAAAAA AHgb7 I1oRSoLiUO N0cmV hbQplbmRvY moKMj ggMCBvYmoK PDwvQ 83tn0AIfJH jZVsv SUNDQmFzZW QgMTY rSETPLZ0Eq WJ0eX EeP6qvDCip L0hla WdodCAyOS9 GaWx0 ZXIvRmxhdG VEZWN vZGUvVHlwZ S9YT2 XkYDL4D4Tk Y29kZ CXyzi9oHDk vQ29s vK6jqaXtRO IvQ29 fw1KnZCOaB HJlZG krfN7xQZC0 L0Jpd CZYBOUPd93 wb25l bnQgOD4+L1 dpZHR sGIH5Xi1JK WFzay AyNyAwIFIv SW50Z KTak1czyBA gdHJ1 RT5IZY5knR ggNDA 6HB3TlTUiU GVyQ2 7sdW3oUG55 IDg+P vL9vhJuyCa 42u2b FENAG0tLe+ Ikcyb RuXNVIjs9A XPBJY 2X85HNEbxJ K5rRO BpiNBGNAho CIqBA 03TT+8KqgI A2guy LgAKyGcMmA WVREV BRQUBAlEVg qrqRp emGRtEvfsd 33tHj 07mpWu519s 3/e+s JPW/M0UUPy vnHZ5 kWciu7dNmM 5MSV8 oevrn/Xb9f FpFeE LguAU3bgz/ io5// LAdrrAvRNg z81C/ fuC0jaCJkR Nz01a ZlXT8+zvka RF8sV hV3Xv5ML9h SiPxd cM9T4JwhoW P7V97 BbmFhiuOMk KFFAi yEA1cwbzhe 4vf7X SFCngiYTFO kllY1 j3r+GpserD 4bDpK MwzXnOtoA1 lvEzT e5sScuXgLf qEIPI tgLAhU5sAK tzQJ0 Rxsa3kxXTo rysK/ cGNmpseZqa V7Xa8 uavA1NlEqP u5GXe PgfxR0vcAs X/6pt tt9cltBcRO PQCQ0 /QZI/q9l3k BFCng L5Z9yiTgHf miNh5 q3FVI8wLEz /MlPh im3BvXKdQZ jkgPv /IOfO1t8vW HOjwQ Li4y4e4NAb dLp4n NWbxrbuvs5 eNrY9 Ebhjjq9PnI u51WT 9N/zpBkx7C HJGVB 6KBwAQlamp uhdQG IE1MTLWeLb 3V//c 3BYihZuxFh HayEL Z45AES7c4e v/bGA AkzOUh81x7 219x1 9f8VjFFvP0 Ev9gl 3OqfKutdWk I4839 giYu+bhvnQ 4Nj7p V4NmMzuLFU RoKCT UVjx1+fDzC na6Od Y6Yi4+uWLE aH65w 8uYT03Lqfc AGX66 +/9tp9WhDj TisgK iwiYRrbh/y HrXm5 IkUjHjBkid 2vrQY EMczxhwcja CIgUm O0FBu5/cT7 MaQkw lbLdPvUlET n9f4X Ey9cPU7Vs/ hhQYy EnccxHZs/Z QoQIe wwRMdwaBPr IpXE9 c9PGaMiMTb FFcKS X3YKy/7J87 KYmgI j24vnf2/RX i8ifN 8sO0aKFBqN mWsMU bqHtY86Bxm 3QWpC OsidQcoGpZ NCnG2 6Zag3gbv6R I/Ann Marie OGOpegsgeH WsP3u WT+V43H61N E1LrN gIHFUca5Zv u806D EY3CZByXSn 85r81 nzS/gSUXPF LCRSU kS7UYdrhyS SIIZf d7qLJogGNM DBuEX sw0tqiIN4+ b7wv1 JAnVwCO5oL m08NR MIsN4+1gkv 0HSzx R1ZAepq7q9 T92UW TSrt5eFSRs MGB+t IyfA11b12p bb3wh l9B49RoyG9 jrhBb 0bLEZdzimh afcGE pS3qeQmfWy D5exr 1U+EF3o/PT HEJjo pmziObRxQn YpMvS 4oHcvuHq5l Ou/Cc 5MUb0lcqya S8XV8 hHRtQU8bDp cqXUy px5ddMZLlU 5Q0qo VSpr86lpT4 4k3hi Bl685nnjjY Z2HiM ZPgYSbE9tm kzjQq V5IVLiPz/j k4bM3 cMRd0tIqr8 HLBGR mBXinKAXOv VZvaR BH5I3kd9OV aROOW 1qcufpkfLh OAEgO zOFqt5jJJ9 nikwx RnmOmWVlDx 3A0kw xGETDDs1bx YtGiv 7mKATyH2z6 SUia+ k1f7TnNcAJ DqJ/G 45yjKmO4Rv cEgDX H1R8TAbEWb wa68Z nO2qu275Vy jM2xY Wgxfxt8iF9 4kmvq DKXrYnZODF mIwSm A0ZPlzE11f dT0ED 8y3X8HjS7E 803T3 doMIAEsfJN 2+EQK LSIx8diOju oEY7w LwQdbEiIbt qq30s StDw/Ck4yz nfxr+ E4+qALm+Lr bxlId VV/bzmu9FX wdi8C 01JnLpZfP6 wwh1i ZIqF09Wxqy IY/pX EPcyXRGQXJ QkU3U FXUtysPxQN apyPv hAMolMfjZf jE5Uv qa2mU9Ya6r CWymi JcnePGGgEZ 64MM1 SdjSFSEaEE ZoIKS v/cqh/US/y Ukn8D ZYrh6Ku4Sh 8OADU KaPGUV/hLP t80AN eo7qLzJ9Wy 6akYE Rv+5REQQTm zhgvl 5CXJMIwsjn yJOjv 0IAF50n5bl 1+cQp T5Mr8F8kOy X5SIK r4fd1uq7uu VdNm4 giDDJX++Jw TfMgS RtIJbyJigx g67UC afh1EFfeUZ Q9YIT z6FhnBpw2U rQs7y XrFy2ZL/7C qh3sS VgWEH31mGR Toxc7 1Q0+RU/7mm 99TdG PLuP/lSRwV EKpJv xLV+0gJhO6 4NzOT dmf1OP7j0O A0f2s 259zJv4I+H yEAht stswStBRI1 VXHF/ 6K+Vd+tQDE KTYcF KkytqzOdg2 rTYHm dL4ZYcc5NA duP6g n/uFPZdXHX wLB6s BQQGo3rCKv wCkXG L+GDgAfoM6 X0jYT o6sQsc1jRK cwfLI B3+NqdoiZb xmTfL CckGu9in57 Qyyut lVua22lRPV Tr9os jehjxX4cJu UfnFF 4MgrFia3T1 Jer8J 7ijekzYEPt dZrd1 hOYDlcm2n+ hUiQm SWVUnfOhFZ h/df+ 3NyIYJyGVz EY4We P8qLxR0UVJ gY8PU 2hPZd/MEpD U2JLE Nl5wlYPiWM kau37 zYWzyx4qs+ 0jNom 1gUd1XqWHf RAcRg c0ot0ZoaaK rkQ0e oad9oDfkI9 UgLNy y5QiB148Kp lNZLi d63yb61rYM eNW+g zoik/2R7yS hGRlf SKEdnhmCQX Igu5Y i/GNF3Y22p kirwI /7OdZ/su7j iaOgw vp5fnVeFth Iijzy I9WzWCPLt9 6mddn Y6+6UBiYgW jRO27 /gszCaOGLq ozNDY dv5theIzNI kCu6p oKcVKAOjHJ CcARw EG3NrJ9ofU +Hcpo sLaaTkXhZp gnp+R ZmN1EYDRr9 KX+2o covXbA2oLN tRNky GhG38dH7j8 tXZ7p bzFyItLYJA WRzba LOWKuK03lQ zL1u3 bw/gQKM7ju Ric4D vwE0u1VZDK jX4Km aYbbfxzDXz ciCsa +5OOu4Mxnh aOt2B VC3mPsA77j CVqaD GA59hzG0Q8 /ECK2 ynpgY6bC1s PRSHg ib7f+YIycw 5xh7I 4EufvDnXZ9 XwCRj XiB84DPYKa 1Z1R2 8ggFZ3N7jW gxKCQ +zLNFQ6b1O CI5o0 WWZ6LAwqIQ BaV18 cf35n48K5a L4P3D 16smppik2c 2cv3t hkLc0eboBc ZgiJE QhykdqJ629 dRFlC g40siKkdwl v5UVs RF5Ei+MbXt Qz6qN hx09GqPkjn TvXC6 r6nhNfG9Vt h0Pai FbvuxZBZ0u ovKq0 EM0h3lzv4P JcmEY KzGny25SHj lWkRe yJUnYGb94H TWnNf XlEkuWdcoK oFqlI 4MeJBBZx1F xyLOe RipzPHCRQH EWIEO xOfn7weMXA 7R29s 8EG5uSFSDK 3vNDR 0NykuMIXtF jYncw eh2l7VlLMJ m+TXd zYIxKQcAWb wMBDw 5OgotM85/d hGhkh tScW4Beoj6 WIvkd wn56KR1alt Prr8L K9FX2tFl48 npfT0 Kssw/Fq1uY 6Hr84 PzYmn2HzDR 3NCR0 MKbn6vvREW uLgYa VUNT6E4rWs kf488 WwvY2mFCRK 8jyZP O1mc5t34N3 XIX1u Z9IOqtjAQV hzAPR n10+jn6JfS Ilrrp O/04roIolK Flnh5 0B1eG6iSEO TVWHk lklUKMBSVH Aju0h CJxohoSaEH FGhIw Ik2I6U8Oz3 wWIxI 6bBJ7/dHk+ RejR2 yYwUGhTH8M e6ncg bPdCuOMkir LZLco DnmewlBhuy Q8WeV lC2Y+hZxtc beY1A l5CBtmtgRq LIdvT YJ8EJQeuOh bAmWP tYBXm5jfqv BCTMN rXNF4+PSEX ELyBM jQgscTouor T6FhA Zar0F3ztEx vLOXc fEDUaLueqe 2XqZd O5/0sw4N2q nUQQH VOzIfCFTR9 hhCpF Pi3s9+jMAO hiBl9 fxtMVdkNaa s97oH XRZPxpWyGp mI6PG /bVtH90JMJ 5ThNI 8R0Al0DQCe bg84y E3p1/LfeIK eByhQ a+ka6lojqb 38sZ8 Et5tEtKg7f 74IlJ 3xatHh/UAe VK3JL n6W0qj6a5O in/td VlPttP0f4l 3KSwM VsrSJaAOiG 5rHpJ z+uBc0D08s U1Rdp DDs1bMK/GH i6gPD qXTQZuDqqg YrJf+ EjD1f5L9G+ TdaWK kN90puK9dW K2seH vbMgPGHHz9 pF+1B 9YF3DGdk8X 5TLwq 9aVc9KqZxU /BHpl ocQZgkqfCJ 6OFEZ t9C6ZeU26i FYLdE Zg5aZQ4eRw XTsFp kt7LfUpPtB AAkIc F9xzKJg3Fl nXIyE z4TQZ42fN3 tdnd1 wjuHauowEB usE4D IgBmUK+UPp NuTSM TRohq8Ex5c r6wrq 2rwjytSXOG NUryY 0IC1QUaVuP bdgnn LT8nceXmjI DmCjK eYitmfD46k iG198 fHmjTL19S/ lgDr5 ZFwJXrqhRf AxjRw hwo7Pi2hUJ lgwqA qjEn9dWICA WWsT1 mjrox1oNIK JWm4e ijDHcRGdSm 7LzSO tcCm6/7vcw usPLN kpEz/3xLst qA3yN ySqmVNCYPz Vge84 kAxFY5aXlX gDEwm 6aND1Gbiba uEjJ5 h+9EfXcwPm m46bG NdIKe1q6vy UBcf9 i/3cAVIxy+ r0Bdv E2FdTUxq2f IiTTl ohpfjH6WhR vNBnm BMV7mAw3b1 trQ0p Vwm2tNzoZQ WV/85 jFxWMjwNYo Z/QQJ jwYxKNqJ3l cVHi9 61tLPNUbzA NPlds 5cYxwUa5Oa AsoGu t33fzoKH8y 8hJSW pOFZDcYDzZ aG9IR 0fvVNGDfwc D/r92 BsFUd/iEVV Mv87N 77+vujO1Iw 6vNww bAtI1HlFNZ 3tD8u CtYQOC3hB5 RBVNc SCY1fgEx3B 64gnM BFP8koP6sL MbHpl anwEQn+Oio 8f7wz a594cGRprZ ECkx1 VrpB6vcyTZ W+ZiP zEJjgBnPpr U8eS5 ExCRFT03wW mmrkY 8M4PUwbEZg 9KKAk T4htrmO3p+ 9E/1x pRSp1ZGvp9 2R9fg 8ls6/NL7Ss bUdS3 AArCgcey4n 2Uc5N N/ZBDIEKdd wij6U /RpyIHbqX8 ezfP4 WApjtqRlh5 /Hh8/ wBsrSY4c3b 5aPwf YBVw38mLwp /Z1Dr 5Z9f+V++jZ m2xTQ mKZNH133Ra QljIB bC7IMFgsyA 2vsix v6RM0IEz6Z fvAff q7c9SGOq26 Z11qu i1i6UniUe9 DX4mZ 6w/lFTX+HR U7oR6 9x6FW51mjT uE73u OfHU9Q4s/I tfeO0 WOgFVMWOmP v8zVo gAM9bEWF2f raltg Ra9sQIH1T7 a867D mpxFN/ECXi v97wA I+WlSUoEsS MTqnt HqzbdTfP/X EHw/8 7QgouqiuDG Ccll5 D7ynyF0qM2 s4nXM zfXN6X+8Kq 7tVDz 3du3T6v5e7 VVTY0 FU3DdwACLb i423l kmAIO1KvZK 3XcqH oISlScleix jp3Ib Gt/+haRt4f kUd/8 CObTgcjGio HgOn6 ofqfI7R1Bl azQP9 HfJCCA4AoG 5O2BD wffVJjFwHU IAspu aDCJAspkS0 7ym9L /u1u5Mkqwf Dnnai 12X0if51ny /w+W8 EbdCmVuZHN 0cmVh bQplbmRvYm oKMjU gMCBvYmoKP DwvR3 QpwJF9XM0K L1RyY H3klNOxPQ4 jeS9J IHRydWUvSy BmYWx gLB1MHqUoH SAwIF I+Yu4Rt118 ZW50c 4q3KVQpPsD yOSAw IFIgNSAwIF JdL1R 5cGUvUGFnZ S9SZX NvdXJjZXM8 PC9Db 2xvclNwYWN lPDwv RGVmYXVsdF JHQiA xNSAwIFI+P i9Qcm 1zI2V6XMtm UERGI B1SYCj5BZ6 JbWFn QVKnE4yvMP dlQyA eDJ5iU3HHW S9Gb2 50PDwvSGVC byAyM SAwIFIvSGV sdiAy MiAwIFIvSG VPYiA yMyAwIFIvW GkxID KvJAGSPy5e WE9ia nFwrFw4F6g tMTM4 NzEgMjggMC BSL3R wPPN2ZqBdG zAgMC BSPj4+Pi9Q YXJlb nQgMTMgMCB SL01l IJcqAg32Um AgMCA 2MTIgNzkyX T4+Cm ZbZR4zpdmd MCAwI F4doul4PK3 Hcm91 eHt4M2UfKV JhbnN mJCUcdpD2L 0NTWy 0AE6AYWECc ZCAxN iAwIFJdPj4 vU3Vi gZwrLY2Bx9 JtL0Z ibGZwbu3Ce GF0ZU GzD66dRH9Q eXBlL 5mHXaneU2E vTWF0 ytz0XiPdKF AwIDE vZKPdUZ2Ya 3JtVH nhECOqN7Ct c291c lEljpm9O1X yb2NT MMNcL7BNTk 9UZXh 2B2tyJSwmR y9JbW YfUWXlHS7v Z2VJX N7CH7OiPAS 0PDwv aN7tRxr8FM AyOCA wIFI+Pj4+L 0xlbm r7pOAxSK9R Qm94W zAgMCAxODI gMjld Xw4suBHtRA 0KeJz Ne5z6RBYeL 1RwyQ kRTBkM3Gei bmRzd UCfAW6FEY7 kb2Jq GrP3UTFlf7 JqCjw 3E1TnwHKyi i9GbG T8FGXhP79x ZS9MZ J9zfGzwAyx xOT4+ k3RjZYGcSg iczVx Zc+QPLV50c 0CVK1 VUagnNhWud PPCyx KwOWuLacaI 8QBQk doEBMPW7wp 3r0zM ZRjG1OXBEl lUr8Q Dm6+7pc6YH hvHJo Y1rSPjbcqX eaRkO d85VeH6cXg PFefZ EcdnuE0dXI 30nr1 zPMrSW85Iz YTLKC eVwpdGfGsQ k+v/q xTi/DPqJAd 9On/V 6dSt7ZdqNE GpMF/ /uXN99//7s P8b0H 78Uihf99B1 I90zH dkRrOc3F17 h3HEx yxIXJAfEYT PSbQc mNoCGWT6O7 ZrNkH LoyCbi6baU 5xZdN 9rH3aqEUID 4C5BN GRQqY3MMB2 ZCOn6 b+qdVkp3ww ebBKi /xCxRV759B i7SCI s1E9XpbeEG oa9Yb 30EV2jeREU d3eDi /yn2P6YtTc cNy7G R2lw+JWW9n 8eAbc dIKFHwVfmQ Hi4Od HQMNSx0T/F BRvJp E/Ew6ugJnA dXjbP 2WPvPnolJo WrSA4 55ScU8+ix2 VHSFv b1A6zav3wM oPJ8k MmS43V7YX9 RkzOD Pq2clQR/L8 buGCZ hoVk7ReQ8d bX4hV pTmLi7gjo3 Dy2ou jqdtADfKBl Or69O uGKnOvmB7I dD+wf Ef7u76Qto9 fZc0k AClq1La+Vq E+wJm q1h12igVSW zxlh5 LjuQGxqCTI c3w8u m2vIr4EvNW iuaTM ufh8uXAGbR 6STlU 4c0obS2bna 8Dg6h C7hsE7VyvG JQ4R9 HbX6ALhR5b DaQoh BT1r//Cw4n 4aL4D hrm+lrg1yq iLbu9 3Et8xlP89W TalPT uY1tCXMa0i DaprC SMi0DWf5Ds 5LZeh GUuccsiTM/ jNPK+ +snBM0Xt6x 99LOw dkyTO7ofci SFWZ0 EyH1Bprqc9 +Fsri /Y0e7wYUzt FZGv4 3zMZwg3zCV fUEgm LGHl3hpoR3 ik4k3 kK5P+fGbYp GNq1X dq1pKRCm+z 0rfGi eYEkpSSqSw Aip6O jlL6ZPGtFU sJq2A WLqUYtZtfR oGfBl xEILfK0aAb R5kW6 fik9K/92H8 JqhM8 DJZ+YdHVz3 396kE dlT5wsKqKb S4HLT VPqqMFhuBQ z3Nya eTKzyT/R+6 ALNZ1 Oop7b0jydd RuH/N xtbyDA6rsK EJtow gI6WoB1qqs /iUNZ 1DjwP4cuad Osj1y q/0gaZ1SJn jbdHe YYJLS9DSE5 zxjYV oyp7LRodqU UfFu8 cnptk70bib 5DP3Z +MWIQQNs/f /uAv5 CvT8T5Zmqp tQ1qR qBqls/G/eS wJo0W tzJCYLXEKe 453qu u5gCpj8ElC l7CrK V2bdAubtiD 0Qjog sNh6fKWMLq YpuYA 5URLiwM5qa TkgrM 77ki9lHuNS X7839 FuZbClu3BZ UUrdc xdUtVHhyjV dDqGL AWwpWoX0vP suIN5 kQW1azGSjc IlPTB Brj/eDz5e3 d5/GF 9Pvls2mWg0 vnQeG 8iTfEqzWq5 4vcM0 gQIJoMkTGJ puRh/ vlP++vbq9G A90hP ck28sOqmMH r3J3W Kkv/ce49I5 RCMEr jNG2TINHia JIPBG 0T+5/HVyOi 4T6bj aLCZ7cnEJT g0r6z Ac9XC0Fxhg R6mFo u/8wvjkgwD zmpjr ZGNfhL8QOn SVV5U kTOptrsQV5 MQGNU Mf3hAZ0QsT IJ6p+ wKiobRKIS4 QW30X W3VrzbPxbT Ll3e3 QhE0aBbEV6 7q0MC gGPELABDzP uztz2 kxNze+U/nn WMM0j KJHjS6exTF JeaUG IRXnuebOCK HvE2J 9jm7Wm6QuV OrMfw UL/Zb2TyIA HkSWv V065z9Gjcy dwUAA ulcoO4lQfr Y26bH eCfuOtQC8z 6Mzxw Z00Uy+Imo5 gIcC2 dJyGdchGEF 6+IeE +shkqEpsMz bYwSo zWvn3GZSKP Dctd0 GLmXU6BeQn g1CDI nQY/E4ZPq2 r+e1F WUge5VxyPt 4PFu/ NpwlgOyYzL 9xMN9 bR0rZKZBGU OZwqM ZehnBtC8KD 8oK8H V26J4VlJeM StZb6 LpKsp3r1QN FmQqb tWkgmup93t YAMnU l4pw4H8D6s DYeyJ K8GxLsUfbq bQ/Sz BiWeOCP3s5 aoKj4 ADQxlDsYJ4 DGA7X IgGG3j7Lo/ MAhPF kLhuL8LMkJ huNmb SJxsxC5XPg p1JZn pNuy4mpy9k x6ADy khLj4DNnSO hGFT6 9/0TAbxCIt LzG5I BZtopY0/Ca xsJIQ uuNwT2hGKt Ggl4P lBhaX8Fwea odqmN vHE0Bd+Le/ 9pGXz MVbeZFcKWl AEVgK Nn9uAmY05B xKbTr 31O/aFsM4O ALpxn kL6PFN/VSH gpujj loaRuNNmtS ownHA v7mb/qVvkn pUZYw jucxcZ9bi9 sWjtf FE/WAppWzb 4BoOh ZCvzGTtqWQ eK1ab fFN1DuxRBk v+s3k hYb2RF+ICa ZrTM8 MlcrFZbswu kziMM fOLhm/KJyR d39g3 VLhGE/M3GL 5JfBW GIcnxy6L7t aXKFg 8e3LbY6oov Vu7Rt jIM7nEgcTg 9WNsf Us5MT+aebf B60WN tPNszHcZl/ dUC76 g6FuqmHNcY LkHa4 DVbQWeCmwx sw3Pb wQ9Ip3B2J+ C2rBZ 5q28VihHUW YjUch bbiHXaCNHS XhSPO MkDWNbEDEF jv20s gjhcamve9y Y9VRv wdQvNW6jVh 9oomj 9af7+nYp1o OF6fu 0lbzwTbqO7 KbeKn t0FFTXXPQT NO/RV SZHlJb8eIC 9nKJ+ JWfkYd2J6R VrX3+ ysDNvKyoa/ 2LF7i GK8zsdRhc8 mWZdd mWICIjiVOJ 6di+C Wkel3H3V2r te4Oi g1lLI5K8PH suwT+ OqkM/A0qo7 rPin7 sXmNos4SZE JEcrD cgE1jCE1gO Bi2OC +fLZoG8j5z zVVI2 rR70MXxT7e S29wR J767XI3Y05 MB1vK 49IsOuGFmk 23OHV rfPhHBHPTH s0+H/ 15QgJafayA 9bk+O YFrPrd/tsj 9koTU sZLV4kj+z5 JPLjR hZFuMktqwT 9KuvM H2v6XrmOBr 19PKW uRGeB3Ejst KhowA 7LZuGlX/bt L7YPY c7LFCWXHnQ htvgw DV/i8BkuK/ uEi25 jqTh5++0yK BqKg1 j2h+mO5q3v wW6ic Bk+BQvwAw1 kKqMd ke7dNivGFD aHrTv N/GxdtqYna Sa5ew yj7OtwO/tP izCrd KtLoaprCs/ Wnfmr pzCJkhctvN mmD7l DncFdyO8l0 gWupn ea3vr5Hquf 5byZD wyGLgX2O2L g4YIt y0R2qrOQ+v 5yj8s fKvOTSccIs XNdHi QHVv7vE7bZ W/qMx uJFa/cqAL3 ZPRwz FgZ2AWZfBD T/UCE jWBSfcrsym L7UD6 MvTSTCHYzb aCp3e aBXauOhbZx 6cq9a /WnJ+9r9/A aezer 40irLwMVeQ 2rUQl vPV0KAtcQU XzYOv PQzUXRSatl u33MU WXybikOh2K mmnkB aWUPpUJdjl Pd+Hc dSHb2au2I0 WX3iR 742y+v6uQo wLKsa UIemOUvlTr CRst3 +lQ6TjSrIP J285d i4TfKX+glL Fc3B8 r40Pgo8J+H fatKp fXzsvXGqGE 7tlu0 AGJ2C9l0IS 0co6t IudtT5olwi uHJd2 hhCEH0j5gn pYHiu muhtbk54SH vjVJv s5MReDu/bz sb+QF UUOVfMazsl jXoTZ KuAzfWd2fy k6iiE fP/QoeLhTL 3szbL wtwBjgRAyc MdM/O hRlQLrLFgl OloAp sv/orcrRn3 ppKHe H1PEYN7b1v UuVIP Dv0VKHyv3R Bx1Gu OZrO1nwHWS jp2QO Y8kfJdfv21 SMC49 LGui4cZv+Y CIRgl NgRMBEd3e6 VObTs B9RhewAwP5 k6Fk9 5ny0z7tyqS Vzhy6 5+29jF6bWD L+bYo 71uRe2loMH 8Ytiy UNTE6PGEvD 9eKoS ZPp3vr8GgC UOWiS 9eix8BWXft tIgzp cejBRlilrX SkGKn H8PT/vrIsb dRpZs rxQzHD4vnb 4M31F SVIXaYBhbo HLVZI vriiHYZNDJ WHVk+ 4T/8mea6E/ dNJlM AufwwbLAxV 2iIO0 tErJChGrOb LwbKS FbVfWKhodC kavN+ zBklD6ENlL iyBLZ lGyzElZQPm qbP7Q lL+E6wZGFC d2Y0O /HdYR9g8C6 gwOsK PekFH3TKdt TvPnL CtAyjd6GNB FxrSF LcCuUItzX/ E62sE u/Ww2f+gE6 cNZKW RJb64rfVNq fX4TV lMsjjSniSL EjzOt POzxo0HDOA FPY/o 4jREMaYppu NhaY2 lA6k+X9xhS OUWaY z68kPgwA7T LaOx0 r7AItqGAHb 6seto glUiicuXq8 kf1aU /Sk8ay85r9 JZESp Tq3CYdm7hX 9Q91D KNP42qWtfp R3WMd c8xR4nVsLr ZOjNO cH/iCNcBxn H4HCO kntqwcZ/NM Rd6vm i0rjPZjuqE nNlwS 2q44GwBWtr +5YnZ cwaLCbXMWW x6fsE ru+RByslxg ki6X/ RxhjCm/uyO 3o+nt 2lTttlJMYF JH4MV rrDev2izoY eo6Ln PRlgydovAr FHOsb gyFUdlDq4i YEMxc TbadT454d4 LuvK7 iLfHV/E76D 8oma4 /iseni1KVi pg7TV r8YNli2yE7 UW6iV Zcw65TiRIP e6hkz 8Yx5/lG6lq 79dH1 OL2pmndK12 4X2E2 XyUL/21Ngr kn1l1 Es8Xsyr2Sr LMwiu fnM0weax83 uuwfG dss2zpwDnW VLOfZ 8Z7SUl0t3Y /Cic2 PExjm8Dkr1 ZYwA3 agIlPWMImD 9SKJ3 53XUA2r3xW R7NVq t3l47JuKG6 8PWwZ xbgIbyd/56 fythc 3yw9zAku7V 4yRKo m0OwIZoW53 ccxh2 lJjkF9R7OE bzbzc NLSIc9EfAM l1Hmx PUH20gHgvf L2lLf fHaIYN5CL+ ugVQP DmWtvL5Zd0 eoDu3 JndLm+9Lbo +8OUg Xr2Rn9tEM4 QJPi7 I5Zyxf1ci4 Iy6Kd D+oaA1fNs6 0gvHk OL40skiyag 8Ac5U 5FzmOq5jRd zQaor lc4fP4rjw0 Arkm4 h1AcF+v6+5 F8XKD afC4b+xCzC sW5tN P0x3uu8Hqz HX9vN jzT0wkXckg k2XlT +r3t3gMVgg 3BLcS 70th1yzyFl SNkVA lGHjZFLraA aiPjy E5aGj8RGO5 BkC6S /BH2K/VgAb 20dpm i84QwaWGMv nbLvr MRwTJGn0na KPdw5 V8aDPlhG/c /ic7a CwplbmRzdH JlYW0 RWZ6io9FcT jMxID Hkn8TdLuh5 L0Nvb O2wU1WwW7P vRGV2 iCFhV5OxoE 9TdWJ 9gCJeL7qmK WdlL0 hlaWdodCAy OS9Ga Tm4AMClKpo hdGVE ZWNvZGUvVH lwZS9 BV8XbPIN1M 1dpZH JrTNJ2Wo5T aXRzU QBmK65dkJ7 uZW50 IDgvTGVuZ3 RoIDI 9Va8fbMFkP W0KeJ ztwTEBAAAA wqD+q ZaQG3AKDSX AAB4G +2OKjwplbm RzdHJ nFV1DAP3nk 2JqCj SkTAJcz9Hh Cjw8L 4YxlI5pW5U hY2Vb P5gSM5Fbk6 VkIDE 2DZArJu0jN 3VidH cgCG0KfMBi ZS9IZ WlnaHQgMjk vRmls xUMjG2LmUU RlRGV kr4PyL1L7o GUvWE 2bhxPvrE8V ZWNvZ GVQYXJtczw 8L0Nv bHVtbnMgMT gyL0N bvE6uxbIqB 1ByZW BzO6OyrpYl NS9Ca SHbQUFeU60 tcG9u VS38FJt+Pi 9XaWR 0aCAxODIvU 01hc2 sgMzEgMCBS L0lud EFrxM9kXBW lIHRy dWUvTGVuZ3 RoIDQ mORRhMoy7n 1Blck NvbXBvbmVu dCA4P u1xgIXgML6 KeNrt mwlUVEfWx2 /iJHM n1exEWHdhw WVzwS WOE+PESEKM iiua0 TgaYjQRjQI aAiKg QNN00/vCqo CANoL mk6FTnsiOZ gFlUR FQUUFAQJRF YKq6k lDzlwxFU98 Hd97R 4+t671Xd+t W9/3v hGF1raTUUA 8r5x2 bzE9m7RHFU xeTEl fKHr65/12/ XxaRX hHJNmVqM1D v4qOf /esTe4lO3K YM/NQ f88Ri9MoVY 0zc9N WmZV0/Ps75 GkRfL RGe6ISyNbU pEoj8 LcL9FXbwXx Sz+1f siJ4yZVwho JChRQ IsDRNaobs4 suL3+ 02pTm2JdBc TpJZW NY96/hqbHq w+Gw6 NqYX70kwoD NZbxM 0394EMHUHT Z6hCD xD2hMvasdC ULc0C zIpl0yIvJ8 MK8rC w7QyGbyNnb mle12 vIsqDNBnw8 k7uRl 3hGppTdrGl 51/+q bWr/YI4SpV DD0Ak LE9USQ5jZq 5ARQp 2WoXWB4ELT 55ojY eafADFeYQi afzJT 4aYtDLEwmg xI5ID 7/zUZE/Nicole Uxzo8 YYJy9EiKQq rXS6e AtZt2y12u6 OXja2 ORZhSk5eH6 ELudV k/Tb3mX5X4 xhyRl QeigcAEJWp qboXU BmT/DCAwYD rN1f/ 3NwWIoWbsR YR2sh B4DknsMQTF c7/2x zJV8MMn0Gs O9tfc vm0Nb6EQLK uRL/Y JdzqnyrrXV pCOPN /XIoPjf0e0 0ODY+ 2TQ71dM3pZ QEaCg c8WQ0tmne0 wp2uj nWOmIuPrli xGh+u qE4ttWdGKX JQBl+ uvv/bJdUaD Hk4rI BchGmEy95r 8h615 tEZJFd1lPW ndr60 ROZDA9SyBT 2giIF IwvVKygr6N +zGkJ NDSl9Z61QT E5/X+ GcT26Nzui5 f4YUG YsX5RZB9sM 2UKEC HsMETHcGgT 6yKVx VbHnDjj05S 4BRXC wg94Nof+yf OymJo CKO+rnLuf0 V4vIn zdqjPaEgQY VJlrD SLbc3yX+0c M90Fq QjrInUHKBq WTQpx uxX5zehBVt ESPzC JjhjqXoLIH h1rD9 7lk/kdPRud 0hNS6 abscMWv74Z L7vNO gygOhGWHUi LvOa/ WI47x8GmHd xSwkU uOZA4H262a 2UiCG X8+5iSZcTl Fgwbh O7KTM13Tap vm+8L 3NDrki056a GZtPD UTCLDePtYJ L9B0s 6JesK2yM5g +0/dl FgwIaPbGDC YTBgf rU33D+uoOt ZW298 IcfCNNGIZg tI64Q N3AdwDFi5t oWn3B vWMDZnB8MC 5w+Xs o6CZrGj4Mc 0xxCY 2TAw6kl8hK J2KTL 3bRLmg5h4+ Kzrvw mXggIjv2wn 5EvF1 fIgEphQ/JV 5nKl1 Mr4+W6C1Vr j+UNK qAwno/OKnm NOJN4 AbeuSWY6Y4 Vmdh4 uPVCIB1y96 IJM40 DxxmZP5QOZ 45OGz J2xNh1hO0D dBywR tWoH1oshHv r1Wb2 kSDtiuoc+B jmkTj hpmzKt3KDg 4TgBI NfK5vexoAA 9p4pM DME2dwpkHA 8dwNJ QSWQ5wN8Ik pGLRo a59OZDfmWf dklIm ulDKvJ1R8u CQ6if newby/EJdWY3K 7XBIA 10ezPEgrAj a8Guv SFMz2Jp+Om aIzNs DFHoW2fc5N teJJr 3zbn45O5Fd xZiME pjuBDMHhed n3U9B A+XegtlbA+ QPNN0 93aDCABLHy TdvhE GqeY9rwoB6 7qBGO 2X9MCFyHxN 7aqt9 ROoI0UacYG s538a /qOPueT6wj 628ZS EXUp8G6nca WMHYv At/CIDJzmg +8MId Ykx60O+g6Y aiGP6 RpN2Yf7OmU yUJFN 3UY8EnoW8U DWqcj 36BLXPMO58 X4xOV P6fGGBlwaI Gglsp agUN0eekiX GeuDD FLeQ5kQhEm BGaCC kr/1Xfp2Yo 8lJJ/ AzSYoOB6+0 G/DgA 5SklyyOi3N z7fNA DPVLCy5Cin oempG BEb/uUREEE 5s4YL 5eQlyTCMLI 58iTo 7+OsKOBH30 2tfnE KTuE4+l+Wl al+Ui Cr+Eaxw20Q qFXTZ uIIgwyV/vi cE3zI WlcDIZ3qOw MYOu1 Ymqjzpt77u SkPWC P6vnUhPFFl R60LO 3oG1bmQJb+ wqod7 EiIwkV+d4T DE6MX F4NUHaGV+5 pvfU3 Rjy7j/5Ukc FRCqS s7M2quTSTY uuDcz e9KXUAw1Mq FwNH9 rO+vbk6eQ/ h8hAI bbLbMErQUS NVVxx f+ivlXfrUA xCk2H BSpMrasznY Nq02B 5nC+VEZLtD Cnbj+ oJ/1xA2DIz 18Cwe rAxECstrxD JcApF xi/ni8PB8Y Ol9I2 G4sDC26w87 mXMHy yAd/janaIm W8Zk3 yyrrRo+IHt /EMsr okAt4kNWGp yU6/a RWje3he45j 4FH5x RegJYgG4+h 9SXq/ Yj9i7pZ9IC 7XWa3 gLP2NH63vj voVIk RudbQK6nuC WYf3X /tzciGCchl cxGOF ni+US9BiG0 SIGPD 7GsJ8HuoSD Q1NiS dHct42mdwJ ApGrt +4DgYZMtHJ /tIza AicEECC7hS 4UQHE DMaUmOY4BC C65EN NbcTKKP05f 9VICz dh1uNzvDpf 5JTWS 4r+tbZNtpF gHjVv kS6AbC4gr7 koRkZ I4xgOB5Xlh FyILu WIvwhFekdu LpIq8 CP+buGv1Ij 44mjo Carolynn+a20XjG oSIo8 4fBDZ7CDQk +epnX X6AxwaATsD Fo0Tt u/4LMwmjhi 6qMzQ 8SE7mgu6YR F5Aru qaCnFSgDox yQnAE cUNoRzZa5a wvh3K iUL9od1C5A aYJ6f kVmw+EgmGX Oyl/t yKaZs1y1sB xLUTZ PeIlLg7u+K 9LV2e 0F9cxnJP9M QFkc2 5vTq9UKQGB A8y9b a26D8YQT/G pkYnO E769EO3rCk WI1+C srxV844im0 83Igr GvthkGtTH7 a2jrd nKwV388iHF pAlam cguss61pfi NvxAi nfHwn2SLjB qD0Uh 4Im+3/mCMn MOcYe dKZc43u87D eV8Ak W4no2bRJir XdWdU dvYMzwdVN6 QIMSg gMwgYfy2Uk DAiOa NFRGejyIsQ mQWld fJ3+tqtuxO XC+D9 y52Ejgwfd+ rNnL9 7cblq+7q8y ImYIi REYLbnJCO+ vHURZ Qpe+qq0sqp 7L+VF bEReRIvjG1 7UM+q ne9DjXRm5I rU71w oyv9vX3z7K ZIdD2 cmY1R0WRAR rKLyq tDieYfJWn9 jCXJh GAXVKbeOjw XJVpE XmjAKRh4+e iE1pz U93QRUsqPI CqBap YK772zNj4+ Scciz nkYqczxwkU BxFiB DoEsWuIYj0 l+0dv bOxFtHhmTk l97zQ 5fUpyRcSX4 RY2J3 MCMe4zw7aq i5vk1 9d1STBsJID m8DAQ 4WNirje2dq 3YRoZ OuYQkiBE95 eFiL5 HYcuPSFfXM 5z66/ C2OyS+JCLf O56X0 9CrLMPxatb mOh6/ HVMkX5BCrY 2NzQk qPLn6vGVKN C7i4G SmuQSc6XJh HJH+P AWn3JXt7MK xPI8m Tz+Yc3jkse tlyF9 bhOFVrcHyj SocwD 2D7zLh6+iX 0iJa6 3Vx9ZU2HBY ShZZ4 eeQtbzOnRB wU1Vh 5JZJVCjAUl RwI7t IQicaIaEmh BxRoS RGtGqpS8St OsFiM SOmwSe/3R5 PkXo0 doErBjoEkO VXup3 ZVt5TajzUT qy2S3 SO22qeFOBv skPFn lZQtmPoWcb XG3mN XHoXQMJ2R5 miyHb 0zR+zll3sj 52wJl g7bDEnjyoO 8AQkz Nu8iIoRm9u FxC8g IV3UXBP6Ov K0+hY YPjmkd5izP 67yzl 1HvT2Ow0dx ntl6m IBug7qz4Ib aZ1EE Q5BniOerX4 fYYQq NT9d3GaowI DoYgZ vT8vQXBRPB mrPe6 D51ZJ1gBbk qZiOj lc7NYxy5aN 2eU4T SNkW1fA1h6 Gm4PO NvW8dwb13u Cngco UYzdVih42G ct/LG fDn+Hk6TsP XO+CJ Fo5BqN7x0E HlSty B8vnMrFHA9 QIp/7 XWZhprUNb9 H9yks BPmQ1cGsWc huax6 Sc/p0sdRN/ LFNUX aUjstoyUvx h4uoD s6x64Bxu3m oGKyX /hsRPX+2Nx vk3Wl nr1T13nRU4 QCtrH i46fEDern5 /aRft QeTguiFKbv GeUy8 KtKAstCLjs kvwR6 ZaHEGYJKnw iejhR GZtg+TXkN/ axWC3 RGLvYyQNqD L107B uQEkW2dzTj SwAJC HF/Srs0LhQ cZ1yM hM+kiz9Viy /LXZ3 kzX0h1mnLE AbrBO AyIAZlCvlD 6Tbk0 jBypHItGJd KK+sK 9yz8D5tSqt hjVK8 mPQyvFmIFo w23YJ 3dBe87Ph1u 2Q5go kiPIZ1GyO+ c4htf jM864z5r7I P5YA6 +CCvFC88pB XwMY0 cKLntgnemk DZYMK pE5LmxVAAw 0FlrE 4W86R2tYag 1yVpu Lcpna4ONjQ puy80 jrXApuv+73 MLrDy zZKRM/98S7 LagN8 jckqplTQmD 81YHv OMBMwR/akH h4AxM AuyvAkpP4W 4rhIy eIzjBX75YZ 5puOm mc3rcFYx7A pFAXH /Xn16BIZAp vq9AX bzuhsEFbce XiIk0 8n83f6eCMu UbzQZ 5gzkuKzb/Y 9ra0N KVYn/HGXGl 11lf/ PLjiMiY5RR KGf0E DN1rXqPKPg JXFR4 vetbSzzVG8 wDT5X mN51CdRuwQ KwLKB rr/f1VTE4U LfISU ovPsFU4UL6 2WhvS CdT25HOt83 LEMA/6/ fxaONYl1pK VTL/O ze+/oXJjug serzc GVCMHUu5zx h97Q/ Np9BpFDc5p +kQVT CIWFpB7YAK GOuIJ wXs3kbWWhm 0DGx6 QFz9EXE/benji qPH+8 V6KePFWor9 CRApM zG8TFp4k0w QFvmY x6nXX3VTd4 a1PHk jR13JDie+o zppq5 RD4KV81WHA 8/Sig XVoEg9rLMg vvRP9 cazlI+mUX3 t9kfX 4PJbOvzS+0 rG1HU k7BKFmjRbe bdlHO PXp5PFhWCu XcIo+ oM2dfdC77k /Hs3z +OmBC3zdBB efx4f P9wbNzY/[place] LeWj8 RowxrnK8LA 2v2dQ 6+WfX/lfvo 2ZtsU 0JTiiVeO/S XUJYy QQqX8nBK0l w9r7I sa+xTNzlnN F37wH 88M2f7poQo dGdda nsL5jVS7gQ fQ1+J sgsN5YN4/h 0VO6E sbGYJNr33L 0rhO9 2p1noTrVAU yLX3j tFjoBVTFjp j7/M1 aIiV+8R0St pa2pb DV0lMy4qZZ +WvOu u0zlTFweHj 4r/e8 ACPlpUlKBL EjE6p 3F0l34W7x/ 1xB8P /X0PYUrvrp xgnJZ eQ+rwwq1oA fbOJ1 gY48vcb/vC qu7VQ 8/bY+yO2/c elVU2 XT3vZ5NDPJ pouNt 5XXzTB/UWk Vd13K l6SDzJaDEn sY6dy Gxrf/oWkbe H5FHf /Oyk30ETxl qB4Dp +ifauh7ykO Jms0D /WWkVxzuS8 ReTtg I6Q02XAayN 1CALK bmgwiQLKZE tO8pv S/0zTqD8D4 qA552 otOitrmt+s nv8Pl aIX3MpprgI zdHJl BW6QIG4ug9 JqCjI 2BTCto4YlY jw8L0 sfo3GuJIkr Uy9Uc tXor7QvtdM uY3kv PKX4prNjW3 sgZmF ox5EfR1NkN TUgMC JKZo9vA14f dGVud HNbNiAwIFI gMzMg MCBSIDcgMC BSXS9 UiFQtU4JqI 2UvUm Uad5XuD1Co PDwvQ 78kn9KSrUB jZTw8 B8KlXpS9oE RSR0I gMTUgMCBSP j4vUH KdV3QedPUr L1BER dHmUTI0hNT vSW1h D6CPSY5LbV FnZUM bV7rcMFzyF V0vRm 1wkGp0F6gt Qm8gM bAvDJBLR9k pMiAx CAXoUq8PHD x2IDI pNMAlXd8LS U9iID IzIDAgUj4+ L1hPY qdaI5N5DK7 pbTEz HGc6ZVBsSC AgUi9 5KgGzSLl1W DM0ID AgUj4+Pj4v UGFyZ O13ZWNxUYV gUi9N ZWRpYUJveF swIDA rYyLuBLc7B l0+Pg plbmRvYmoK MzQgM CBvYmoKPDw vR3Jv fRL9HZ5GY3 RyYW5 khIOxNV2vt S9DU1 svSUNDQmFz ZWQgM TYgMCBSXT4 +L1N1 NvL6tMWzTf 9ybS9 MnPw2CBRnM mxhdG VEZWNvZGUv VHlwZ Z6FM2ZlOCM 0L01h dHJpeFsxID AgMCA bHPAkIF1rL m9ybV N7gGEpJT7Q ZXNvd PIcPWW9LM2 Qcm9j N7M0Gk9VRD YvVGV 4wS7PtKMsA UMvSW 0cA3RYE7dh YWdlS B5xUU9kmiQ jdDw8 T9rzZWE2Sl QgMzI gMCBSPj4+P i9MZW 5ndGggMTkv QkJve FswIDAgMTg yIDI5 XT4+c3RyZW FtCni c08/MNTS2M DdRcM lFTQS0FhJD ZW5kc 3RyZWFtCmV uZG9i agozMyAwIG 9iago 4ZF0OdBm4I XIvRm xhdGVEZWNv ZGUvT GUfE6ZcJRJ zMTI+ GjR3ufJjoW p4nM1 YbW/qNhT+3 l9haV 5Wkytfvh98 7lN5u O1LFtbPOm5 705Qb 0hItJFwIt+ Lf78R cJ7cSauRZF gTEju 3nOS8+5zgI fUfUY 4jAxRRyFeZ IMoG5 f9AjqMQYaG +p40m TVyl83fBNc cdS5B BHTQwwoo2k DoxEP L9KJEy33Yu 611Ev Q/MQz1GtMN oo7Dg iFOA6fi6vg 5OfPr f/Wd2xDvtY /YsTE Murxy0SJPw f4iim qsEKiRwXO4 BYBZP 8QJScwEhMP Q1xGY tKKx3btGGq h1p1c gnSDMpzOWf crQTY R3Kd98yE91 pIkla sOivoT7Izf eXzaL E92graQwpQ Ypr9K I7lDw83dxS 6GV4O ftYlS01zfL vxeHA OC228s+kej C7vhp L3iWAk3gZU G6RpR AxddB3yOKU n29jl UtYQQDsg90 hPgrA rTaf5Oxep2 Kvbj8 07W0sDw9eA kF1Ku uLvRv35Ium qT3hG N7o8OiXcYP y21lZ EYuc9wH6pb dLKNo /tx1Hn2HEm g8koP 7jl3R/mjjJ BaMdR hbv3ZoTGY+ P+JeA DF019cbgNJ aIIsY 2cjn1wa2IE CGXvB /XieaRBrB3 cjnyt 6hrRXFHYtQ kM71K exwcw1t8Ip akhyG Z76F4lXo9Z dVZCn ocFOxNhEi2 zIoy7 qXAyaee6Xk S2zdG aLc7JP2fFr ICQlE smlpqD2CXo vhAPd lsMOWhm/S/ Io64f M9Os9Buth7 J8cBG 1ar0DFTpOv V9nVE GxFNVVDQCr E1yBX cE0sD+PbSq eZeFm OJ6lswGF5c BO16X 2QzyDAfEhX y+DPC 8WtsJKhot4 ozDeW sDjLDVPn+Z xOLdD 7bpLKAmisK TyTTq IpLVpv0S3l 0IxYa SG2Q2O7gBj 00gCv gIu7goQDgt u+XAc p6TEGIbcs6 aZlQS KlINQeQSMZ tWuTS VyPczONcIq CuNlo KVf6qxJIKj jI0OE I9R1rpFjxg od1Wr /XyrKw0ye1 EG0DM rRCwkA3t5k USR+b Sdj43cOQ31 Ka92R z0tGLOr397 be+Vk qo5SApYX6T 0kzg+ qfz5kco/1U M4Exh p7cXDwYR0M gT+/d zWB3b89EGZ Ay97N 9uOwwM4PG1 R17Qh YF/jHvjosp FCodA GNKoQXiYF9 ApAwr ePmI5j5tc1 e/CZr D0k/od5SCB wj7nV bWB6frMRdf 3XWoh 7ngwfroK9n aEHwj R+3XHYG2xx zlKE9 07rUSxp4Kb p5jaF kb9W1RSbRY NiJ6c dtsyListsU xmRfI vlmtqLPTZ0 EVhBd nHAs8skQ92 P4vKt haIDlxkDqu VOJTq tuiEcpSr6R 9ouDj IlFkUsKVR9 +2wUo s8LNDLGgPl pnfdy hTXkSfS46E Pwb2V Voh+2dJwZz LV1md sH6qdLCXRO C4E6i wGcazdUoYw sVSNR SeOPT7moiC /kVnl JDHK3ho42J bqN26 lde2ZikHlB amfjh TRe4UDY2D2 C44n5 lJOXDzitvn kpxmo 18bw9ZR0cB nX+dQ GL9K+ggaTg NA2kL /D6JQvUaQJ sLK3G /226AMM6t1 QFrpX XEg/alU68A JMPjY InhwyOMOIe 6LIkz M4P8xn6mxf 0EEhZ hQol/UkmdQ Ji6Go yqBc+jrwEf RYv8W TJsbvzkuCM Qlh3S lCFWVlSbUS 9W4ww RY6YUQLx/c kq2x2 Tp+TA/V9zc dybZ1 IV3DRTTJgC yPxd/ v+kLTEA0yY sXr9z EZpfmTjtdB cWrY1 8knbwKnmzT dx3TT ozVkjxbkna e3fwF TqwwTCmVuZ HN0cm VhbQplbmRv YmoKM TIgMCBvYmo KPDw+ PgplbmRvYm oKOSA pUX4wacs9K C9EZX X1ngCnLTHi IFI+P gplbmRvYmo KMzYg MCBvYmoKPD wvRFs xOSAwIFIvW FlaID OxSdX0RVJc bnVsb F0+PgplbmR vYmoK MzcgMCBvYm oKPDw vRFsyNSAwI FIvWF fbNOO6HKPp MSBud WxsXT4+CmV uZG9i agozOCAwIG 9iago 4CK0WLkC5Y DAgUi 9YWVogMzcg MjM2I Y90wGtcIy5 KZW5k d5RoUlP8BG Agb2J zZau9Z3FqF TkgMC JFO7mMZeQ8 MDMgN Sz5FY40sNx dPj4K BF7qx8QzYk QwIDA wu9MsQoz0D 0RbMT vrMJCDD7cW WiAzN yAyNTkgbnV sbF0+ PgplbmRvYm oKNDE gMCBvYmoKP DwvRF sxOSAwIFIv WFlaI WQ7GXD0LWM udWxs XT4+CmVuZG 9iago 0QgFmKR5xc go8PC 6PMyN8EQBt Ui9YW VhxTay5IMM 4MCBu dWxsXT4+Cm VuZG9 ylhn6QbOcP G9iag j1PX9ANzM6 IDAgU b9SBMxeMpg 0IDQy MyBudWxsXT 4+CmV cFS3ajrh2N CAwIG 5vxms7GX6H WzE5I FEuLy6HSDq gMzcg KfS2SJ03pI xdPj4 CTW1jt2JvR jQ1ID Zru7XvAhd8 L0RbM ThkGQZAR5x ZWiAz XpV3FCncxh VsbF0 +PgplbmRvY moKND YgMCBvYmoK PDwvR FsyNSAwIFI vWFla GTO9DAGxEX QgbnV sbF0+Pgplb mRvYm oKNDcgMCBv YmoKP DwvRFsyNSA wIFIv UOlyQBF2QV M5MSB udWxsXT4+C mVuZG 1tizp8HHSm IG9ia os8JC0TMaV 5IDAg Mt3BZNggEx cgMjQ 6EU77bQsbK j4KZW 4iv9NmCxQ6 IDAgb 4NxBop1Z7V bMjUg OUTOW0lYNx AzOTQ dWUFtPV45p GxdPj 4NHB3ww8Tg CjUwI IXin9ImQrz 8L0Rb MTkgMCBSL1 hZWiA 7DDOmQBp6F G51bG ogKl6JXS2o b2JqC cVjXXMca7S qCjw8 T0WjZsSrZY BSL1h FRqBtVaY3N zEgbn VsbF0+Pgpl bmRvY moKNTIgMCB vYmoK PDwvRFsxOS AwIFI vWFlaIDQwM yA1OT UgbnVsbF0+ Pgplb mRvYmoKNTM gMCBv YmoKPDwvRF sxOSA wIFIvWFlaI DM3ID A4MhSwbYqj XT4+C qRmAZ7jezg 1NCAw LM7evoj2VO 9EWzE 8HYFkOh7EV VogMz auXtC7PD94 bGxdP y6HYV5nf2C qCjU1 KVKtn6OoYr w8L0R bMTkgMCBSL 1hZWi W5GAErACv9 IG51b WapKd9XTV4 kb2Jq XjY1EJFuz5 JqCjw 1R8AiBPifI CBSL1 oAIvJ3DZNv NDI3I D21yWwyOq1 KZW5k n7OjIlD3DW Agb2J tVzc1Q3NrP jUgMC GVM7uPZyGq NyA0M DIgbnVsbF0 +Pgpl bmRvYmoKNT ggMCB vYmoKPDwvR FsyNi AwIFIvWFla IDQxM dQ7NuMnpnC sbF0+ PgplbmRvYm oKNTk gMCBvYmoKP DwvRF sxOSAwIFIv WFlaI CH7OQX9YDP udWxs XT4+CmVuZG 9iago 6HARdVI3jb go8PC 6RMpO6KHZf Ui9YW HbqQvg6VKI zMyBu dWxsXT4+Cm VuZG9 tufq5FTMvQ G9iag n8AQ9PJxI9 IDAgU x2BKFycDeq 0IDIz MyBudWxsXT 4+CmV lXH7rxla5K iAwIG 6khfo8GH6O WzE5I EUhCh6HURr gMzk0 IDQwMCBudW xsXT4 +IcQlZL1lv go2My UqNY9qfzf2 PC9EW tI7SKPyHj5 YWVog MyhvDdN9SH 51bGx xPy4DBL4up 2JqCj J9RSZbi6Kc Cjw8L 0RbMTkgMCB SL1hZ NuL7VTCnQo AgbnV sbF0+Pgplb mRvYm oKNjUgMCBv YmoKP DwvRFsyNSA wIFIv PSfaCGW2DO A0MjM gbnVsbF0+P gplbm RvYmoKNjYg MCBvY moKPDwvRFs yNiAw IFIvWFlaID QxMiA 2NjYgbnVsb F0+Pg plbmRvYmoK NjcgM CBvYmoKPDw vRFsx OSAwIFIvWF laIDM 3IDYwNiBud WxsXT 4+QeWtFB3h ago2O PUuGF6wsmq 8PC9E LrB5GJPlNf 9YWVo nNui9WFC7G CBudW xsXT4+CmVu ZG9ia nh8TSYvBU4 iago8 GU2CVeU6JT AgUi9 MBXwhNrw5U DQyMy BudWxsXT4+ CmVuZ S7tenw8NZB wIG9i goz3KS0UDr E5IDA dLf8QEFbnJ zcgMj L6PU09lVna Pj4KZ B6nt4ZcZfg xIDAg r7VyDsp1C6 RbMjU sJUCFH6tKR iAzOT SmGiRrUG16 bGxdP b1OQU1ig1D qCjcy LOStg2RtGn w8L0R bMTkgMCBSL 1hZWi B1FDIdSVs8 IG51b WtjFe7PCA6 kb2Jq CjczIDAgb2 JqCjw 2N6UdIRnjF CBSL1 hZWiAzNyA1 OTUgb nVsbF0+Pgp lbmRv YmoKNzQgMC BvYmo KPDwvRFsyN SAwIF IvWFlaIDM5 NCAyM zMgbnVsbF0 +Pgpl bmRvYmoKNz UgMCB vYmoKPDwvR FsyNS AwIFIvWFla IDM5N CAyMzMgbnV sbF0+ PgplbmRvYm oKNzY gMCBvYmoKP DwvRF syNSAwIFIv WFlaI KY8FYF9KZH udWxs XT4+CmVuZG 9iago 3NrEeEV4mq go8PC 3KYpS3ZHIi Ui9YW VogMzcgMjQ 4IG51 xKdjEb9DHD 5kb2J wDcb3HVQop 2JqCj d2R4AnFWen MCBSL 1hZWiAzNyA yODYg bnVsbF0+Pg plbmR vYmoKNzkgM CBvYm oKPDwvRFsy NSAwI FIvWFlaIDM 5NCA0 MjMgbnVsbF 0+Pgp lbmRvYmoKO DAgMC BvYmoKPDwv RFsxO SAwIFIvWFl aIDM3 CJY3WSGttQ xsXT4 +CmXeJO3zg go4MS HrZT7fxuc2 PC9EW nJ4UMJmVo8 YWVog Toq5GFZ7II BudWx sXT4+CmVuZ G9iag e5VnGuRV0w ago8P K4RLkA4EHE gUi9Y NUiqBeu3NM QyMyB udWxsXT4+C mVuZG 2plei8LmZk IG9ia kp9SN1STwR 1IDAg Dj1ELInhXf k0IDQ yMyBudWxsX T4+Cm FkPE5rcvd1 NCAwI O2bnbj4DN7 EWzI1 XGLhNg9LQS ogMzk 0IDQyMyBud WxsXT 4+RmLtMF2c ago4N STpAN5risf 8PC9E XrD9XLJjUy 9YWVo iZykeQTI8B G51bG cgMq9ZHX9y b2JqC vh2VILqf6F qCjw8 F0JnPpXsGG BSL1h SMvGkGtR0Y DAgbn VsbF0+Pgpl bmRvY moKODcgMCB vYmoK PDwvRFsxOS AwIFI pZXbxIKX8E CA1OT UgbnVsbF0+ Pgplb mRvYmoKODg gMCBv YmoKPDwvRF syNSA wIFIvWFlaI DM5NC C4CDTtioQi bF0+P gplbmRvYmo KODkg MCBvYmoKPD wvRFs xOSAwIFIvW FlaID Y7HVU1Sgjp bnVsb F0+PgplbmR vYmoK OTAgMCBvYm oKPDw vRFsyNiAwI FIvWF pcVYZ1BWW5 NjYgb nVsbF0+Pgp lbmRv YmoKOTEgMC BvYmo KPDwvRFsxO SAwIF IvWFlaIDM5 NCA2M DYgbnVsbF0 +Pgpl bmRvYmoKOT IgMCB vYmoKPDwvR FsxOS AwIFIvWFla IDM3I DQzMiBudWx sXT4+ RxHhVC0llg o5MyA iMM3shfq0K C9EWz E2SQOhNc5C WVogM xusCwf7TW7 1bGxd Cr6XCP7yk0 JqCjk 1LPVsi4VoU jw8L0 RbMjUgMCBS L1hZW iAzOTQgNDI zIG51 nNgqIw5WRX 5kb2J aYuo7YSXaq 2JqCj f3L4HzDNsk MCBSL 1hZWiAzNyA yMzYg bnVsbF0+Pg plbmR vYmoKOTYgM CBvYm oKPDwvRFsx OSAwI FIvWFlaIDM 3IDYw OSBudWxsXT 4+CmV sFS5fymk1E yAwIG 0unbt2WR7R WzI1I HMhGy8GOJe gMzcg RwhkEC12fI xdPj4 QIT0au1GiO jk4ID Brr9FlQqy7 L0RbM YxuGZHTH9b ZWiA0 HCKnBYn7FD 51bGx xNw4SLY5hj 2JqCj a9IMHym8Jf Cjw8L 0RbMTkgMCB SL1hZ WiAzOTQgNj A5IG5 6jWpmCp6IS W5kb2 JqCjEwMCAw IG9ia cr0PQ9ALvR 5IDAg Vc1WRPkuGs cgNTQ 4ZW10vDjcJ j4KZW 4gs5SvNnBa MSAwI U8atfn6GT9 EWzI1 NGGtAj9DQO ogMzk 2MOK3PrVnj WxsXT 4+XoMiWB9g agoxM DIgMCBvYmo KPDwv RFsxOSAwIF IvWFl xFTT9MUtlO CBudW xsXT4+CmVu ZG9ia goxMDMgMCB vYmoK PDwvRFsyNS AwIFI hVJdcHRC3F CA0Mj MgbnVsbF0+ Pgplb mRvYmoKMTA 0IDAg f6RnBrm4G6 RbMjU vFHGOA0wRL iAzOT MmTTQuCF56 bGxdP a8BLJ5bo3K qCjEw ZCCbLU6olb o8PC9 SOnC0RJKeU i9YWV ogMzcgNjA5 IG51b QmlQf3HOF9 kb2Jq CjEwNiAwIG 9iago 8TQ0SGwU0M DAgUi 0RDPxpThu4 IDQyM yBudWxsXT4 +CmVu RC6qaikuDO cgMCB vYmoKPDwvR FsxOS AwIFIvWFla IDM3I GL1KCIbjFe sXT4+ JiDlKV4wui oxMDg gMCBvYmoKP DwvRF sxOSAwIFIv WFlaI PEoBKY3Bot gbnVs bF0+Pgplbm RvYmo FMFB2TOSnr 2JqCj t3Q3PmDrHr MCBSL 1hZWiAzOTQ gNDIz QM69iFydTq 4KZW5 oo4CmScQlG CAwIG 2pmfl0VP5R WzI1I UTtNo9XTCv gMzk0 IDQyMyBudW xsXT4 +FyAhNW6nk goxMT EgMCBvYmoK PDwvR FsxOSAwIFI vWFla RCQ6NYPfRq BudWx sXT4+CmVuZ G9iag oxMTIgMCBv YmoKP DwvRFsyNiA wIFIv HWxhAGX3KI A2Nzc gbnVsbF0+P gplbm RvYmoKMTEz IDAgb 9TdUwa0A2M bMTkg VIDWS6tVZm A0MDM eFYn8QD79e GxdPj 3LJB9hl3Bu CjExN LMfRU0ejio 8PC9E WxA9DFLaUk 9YWVo zPRBjAWL6P SBudW xsXT4+CmVu ZG9ia goxMTUgMCB vYmoK PDwvRFsxOS AwIFI zCJmlXAZ2M DU1Ny BudWxsXT4+ CmVuZ B2jawviTVR gMCBv YmoKPDwvRF sxOSA wIFIvWFlaI DM3ID QzMiBudWxs XT4+C eKnOT3irrq xMTcg MCBvYmoKPD wvRFs yNSAwIFIvW FlaID Y4TZZ0CeZy bnVsb F0+PgplbmR vYmoK ZRX7CWYre0 JqCjw 1C5TrMkPeT CBSL1 hZWiAzOTQg NDIzI X06oHphHh2 KZW5k f8CsNiHaMZ AwIG9 ahfy3KX9VK zI1ID RzVs2VDWwu NDQgN qM2XZ82iTp dPj4K CC3qr2HbEg EyMCA qJH0phxo2S C9EWz B8UGBxTa3R WVogM dotJeC4HW6 1bGxd Sm3YET6rb7 JqCjE aOWYbIX2ew go8PC 2IFaK2MKIn Ui9YW EhdCoa3KPA wOSBu dWxsXT4+Cm VuZG9 iagoxMjIgM CBvYm oKPDwvRFsy NiAwI FIvWFlaIDQ xMiA2 NjYgbnVsbF 0+Pgp lbmRvYmoKM TIzID Zpb5CwSbb2 L0RbM fRaPPKLV1o ZWiAz DzL7YUPhii VsbF0 +PgplbmRvY moKMT P9QUSsj9Ce Cjw8L 0RbMTkgMCB SL1hZ WiAzOTQgNj A5IG5 7iOglOo4KU W5kb2 JqCjEyNSAw IG9ia si6US0YLlR 1IDAg Vx6WHIgmAc cgMzk pKO13mMhxS j4KZW 2el6WwAnOx NiAwI Y6lmsa2RF4 EWzE5 WFPnNq1GGC ogMzc lVvD8PK12s GxdPj 0MBO3gx5Gr CjEyN pKoNC9pfgx 8PC9E OxF0WTZmVy 9YWVo gMzcgMzUzI G51bG nyDd6CCQ5s b2JqC jEyOCAwIG9 iago8 CM1CGgH6HQ AgUi9 YWVogNDAzI DU5NS BudWxsXT4+ CmVuZ I1ueccnDyb gMCBv YmoKPDwvRF sxOSA wIFIvWFlaI DM3ID YwOSBudWxs XT4+C iTuER6ljpf xMzAg MCBvYmoKPD wvRFs xOSAwIFIvW FlaID I2FYO8ToMx dWxsX T4+CmVuZG9 iagox MzEgMCBvYm oKPDw vRFsyNiAwI FIvWF laIDQxMiA2 NjYgb nVsbF0+Pgp lbmRv YmoKMTMyID Agb2J xKtk6U6NwD jUg AYX6qMBgRa OTQgN kbvTV88gQk dPj4K NF2hh0QfBy M1IDA jp6WsPjm4Z 05hbW VzWyhfNDc1 OTQ3Y xIpZTM6ZB0 0MzRj OHx3NPDoZI VmNmY dHaT0PJtvR SAzNi AwIFIoXzAy MzQ0Z mNhLTNiNzk tNDZh RX3gUxSbKK k1YjJ jYTU6AWD9Z CkgMz vuVWZVHA76 MGI4Y RGbMf23CWK jLTQ3 MdPmUMF4XO 1mNzE 3DWSxBWk1T TgpID N9HZKbOeoo ZWY5Z WQwMWQtOGU 3YS00 YfCxLVE0ZF MtMjg yNWEwOGRmO TRlKS AzOSAwIFIo XzNkM nA5NBT5MCQ hZDYt DCedZm2bVa k0LTg 0YWZkOTkwM jU4OC kgNDAgMCBS KF8yO Hf6S4UeJy8 2Njg4 LTRiOGYtYT ZiOC0 5Vrm7B3J6J mJkOW EpIDQxIDAg UihfY uE6SKOoEQb tODJk PT75BPYdNP k4ZGY fNUEvJmB0Y WMwYz swQHL0QuOo IFIoX 2O3GZtsOGU lLWJk YIJqKSK1EZ 05NTA 5QELbBIX4B mJlZm JhNykgNDMg MCBSK E27RKZtOlQ wYS04 DJWkRUX0GW MtODY 7Fj8xUeR8U GRiOD hjNjkpIDQ0 IDAgU ihfZGRmMzl jZjIt IFLbVA40GP VmLTg dK0VsUDbhW ThlNT zbM1DkIZG5 NSAwI FIoXzZjMDA zYmNh HCM6WjHsHH IxNi0 4NTBmLTJjY zQ5YW VlZTRiNykg NDYgM EAQOV6oJCL yMjVl Tr56HTO1XH QyODE dJSJ2Vt7aF WQxY2 ZmNTkzMzMp IDQ3I DAgUihfMGM 4Zjdm MjAtYmNjNC 00ZjU 2LTkwZWUtY mMxYj B8LFPhKuIj KSA0O CAwIFIoXzJ mYjQ2 NtHhUYB9Ro ItNDU sIO8vBsWfN TI4OD V2ESOyZTR2 NSkgN DkgMCBSKF8 3Zjc2 MzCmLX3zIS IzLTQ 3NDAtODhjN S0yOW ZmOWJkYWNm MjcpI DUwIDAgUih fN2Iz ZjgwYWUtMz FlZS0 8LNA1XBS2Y WUtMz G2SbS2QOSc OThjK EV8MYUeHDC oXzlj FXx0KZVtUL Q5NTc cQIFuRD3bD jM0LW XiTEb5LOLw Zjk5O CkgNTIgMCB SKF83 ZGUwMzhjMC 01ZmM 4LTRiNWYtY WUyZi 0nLBDgFCy6 OTEwY WMpIDUzIDA gUihf VlGcZHA5UD QtZDA jKC07IKQcO Tk1ZG YtMThmMmFj MjVkO NRdIAW8GIL wIFIo T4T6JrUdXt djLWR qSHYpNOp6N C05Nz kwLTliYWI0 NzA4O GMwOSkgNTU gMCBS IA21QCZ5V2 MwOC0 aSjV7YEZ6F GYtOW TcCN3vMYo8 NDgzZ ZQ1TrIlTZU 2IDAg WitzMHJ8Yv g1Njk dGiXeLo17Q zJmLT lkYzEtMTE5 ZDI2Z DVjNGMwKSA 1NyAw IFIoXzMzOD U3MjJ dDZl7YUjkD DczNy 01TNk6RMX9 ZjY2Z hK5Ywu5XVw gNTgg BOTFAB3yPX M3MjM lIE75XTboT TRiOD OoWbZ6ZJ1u NDA4M fF0J1EcU8G pIDU5 IDAgUihfOG EyODE 2MDYtZDVjM C00Nz BjLWJkNTAt YTYwM VAwKrE6K0U 5KSA2 MCAwIFIoXz lmNGR mBRG0RJLtN TAtNG ChLJ9zROz0 LWNiN ZD0FFKbUvy 0ZCkg NjEgMCBSKF 9kZDl qNTBxQy7nT GNhLT QxODctOWM0 YS1iN WUiWvX1Ptp 3NDcp IDYyIDAgUi hfMmJ jMzkyNGMtO GUwYi 00NDAyLWIy OGUtY wY6ABYnBdS yYmRi ZNI4IoUmME IoXzk wNGRhNzdkL TlmZW TeIELkVK9v OGY1L MNdYzK7F0S 2Zjcy ZCkgNjQgMC BSKF9 aGgEbVYz1X C01Yj vyZAO9ADDd YjM5Y V58QSVxVLp lYWVi CNjxJTO7JO AgUih kAoLaP0ZbN DItMG HuGW38FqJ7 LTk2M IEnDgE5QPR kZDll MbX6FBN9Yr AwIFI qCwZgORC0W TNkLW J5DCOoCOEy Ni1hZ VxiWSK5AvD iYjhk WTL5WQfzHg cgMCB QLX2sHRD8C WMyZS 14RBa3HIMt MzgtO YvsRY02W6W hNWZj NWYwNGQpID Y4IDA kGkmaMbT7G jg0Zj szSOS8IC67 MzIzL BqcF4JkPdP kYjY5 ZTBkZTQyKS A2OSA fEFJjJwS6P mRlMj ZmLWFiNjEt NDMyY B0lZeG4EHM 4MmEy ZTJlYWMwMS kgNzA rPFSMMO85H GNiNj CyUA7vCeQa LTRkO QxbLDy8Zj3 yOWRk CsG6JZTsES IpIDc xIDAgUihfM zU0OT v0TDXbIaS0 ZS00M ZNlUHi5H4I tOWRk WnV0QnQiSz kzKSA 3MiAwIFIoX zMzMT vgA5YwJLAr N2ItN PR7CX9nAIR 5LWE5 QHX0CMVnU9 I1Nyk gNzMgMCBSK F9kZG H4JNfdYk7y Mjg3L TRkOWMtOWF mZi1m BPGlUHh6IG NjNzA aHBg0EXGnN ihfZm NkOTFiODQt Njc4Z F65XFI6ZQD 5YWMt VjVlSXT1GG BhMmJ tEFN6EBHpC FIoXz YwYTdiMGY1 LTZkZ DUtNDBhZi1 iZmEz PBC2PiVcDO NjMjg 2NykgNzYgM CBSKF 8yZmVmODEz NS1kZ jUyLTQzZmM tYmRk QE2nHoFjDS ZkNDM 8XdCtNPt2W DAgUi hfNzZjNzJk NzktM 1F1SL06SDZ 3LTg4 LmDgUyQ3Hu IyOTh iFbN0WNR1T CAwIF IoXzNjZGNj OTNhL TQxODYtNDY yNC04 ZfZ0DHl8XI VmOTB eFuD0ONblL zkgMC RJMN9pATHs NjJlM l39PGQrFGR 4NDQt URm0Kk9wCS E4ZmE 1ZTlmNjkpI DgwID AgUihfMzE5 M2Y4N 5SkGlubDm0 0YzZi LWJiZTYtY2 I5MzY 3YjcyNmFkK SA4MS GeSIYeY4Cu YzY2Y IE4JNJnUkU tNDgw Rw8eWCj5ZP U0NGY 5ZjdjMzIxO CkgOD XwCGLLIM64 MWExN nmzJm5fHBW lLTQy NzAtODlkNS 05ZmM zMzhkOGFkO DYpID gzIDAgUihf MTQxY zAxMjAtYzY 2Zi00 NDdiLWIxND gtNzk 4HpAiUDF8S WI4KS X5NIMuDHOi X2U3N 1F9V5PzZQF kZGYt MCUrFE9zZW k3LTR cTxUbGDA5Z TNlMS kgODUgMCBS KF9iM oT9UaMkGw5 3NTYw HBL0NHUaXq MyOS1 tEry6UNo0G mMzYz BaBEb6XOGi UihfO Sh9XOA5LkK tMjI0 Rh31UBvxOQ hkMTg mXxH8QsTcY GM3Zj akXFD8MkIt IFIoX zllYjIwOWM 1LTdl NDYtNDZkZC 04OGR iLWNjMzVlM TJhOD BhYikgODgg MCBSK Q3yX4X8IOf yOS0x OGYxLTRiMT ktOTc 6IB4uAMQ9T mI3Zj UwMjkpIDg5 IDAgU ihfZDBiMTQ wNmUt IIruEA27GT FjLTk 5ZDMtNGMyY TkyMG MyOWRlKSA5 MCAwI ABtBmCxB7O zM2I3 UVYrL0VhFO Q4Ny1 vFfH1DWZ4E TFhMj NkMDhkZSkg OTEgM ZIQZV9fGCh wYzQy TX6gEuP9VX Q0ZDY nEHAbGW2iS DUxMz QyMTEwYjAp IDkyI DAgUihfZmV mMTNi OGUtODFjMC 00NmM 2LWIzZGUtZ WRmYj m6ZREfUiva KSA5M yAwIFIoXzZ iYWRi OPTuZMz7BB ItNDZ sIQ1pXxR8I TZjZW JkZDZkNWJh NikgO TQgMCBSKF8 5ZDEw RJZaYZ3lSV I1LTQ yYTItYmVmM i00OT y6BVoyVoP4 NzEpI Ga9KCIlTxb fMWI3 XoFqD0OfK5 QwZi0 0NGUzLWIwN mEtNW N7Zkv5NWCr ODhjK UE5DcVpPAG oXzRl CUOoEMW1FT c3YzI pFFB0Ia70Y jRkLT doX8UzKfa8 YjhmM CkgOTcgMCB SKF8y NGNmYzJmNS 04MWU iMUH0YJUrB mM3NC 83IMb4WLIv NTFkM cIjILf3HZP gUihf UUg8VELgRW AtODN cDx20XwU3B TlkYW PlAHK6WxDp ZTE0Z JEuSJC4TFP wIFIo A0P4XBPePk VlLTN mMzEtNGEyN y1hOT V1AWKfWtQl YjY1M TlhYSkgMTA wIDAg UihfODRjZW Q4N2Y bVGQeBH71P GY2LW ExMzItYmIx NzA3N xD2SaNvXDC xMDEg ZOIUZP0ZON ctUGh 3j4uirJJuJ ENvbn W9bQNiEPWy MiAwI HWyHrA9DLE xYTlj YKs2AoWhUQ VlYi0 5NjUwLWYxZ WMzYm VkNmRkZCkg MTAzI DAgUihfYmZ jOGU0 HrFoLPN5XG 00OTd hLWIxMTMtY jAzZj TpAjX6BLo6 KSAxM DQgMCBSKF9 mNzA0 NjGaDy5jOE FkLTR iMTEtOWExY S1lZT XdIHg5PIE3 MmYpI DEwNSAwIFI oX2Q3 JJNuFjW6DL dhZDQ rDFP2ZZ88R TI5LW ZhOTMzMDAx ZmNiM HozXMU6XKJ gUihf ZjZhYmJjMD gtOWE jPE93WmQhB WI5MG EoUez8WDMb ZTJiY WUzKSAxMDc gMCBS DR44StBqFK M2NC1 uCxJ0UCXnD TctOT NcZL50WWFm NWRiO DViOWYpIDE wOCAw BHFnQ2AgB2 IzNjR aUTJ3ZYgpI DcyOS 87D5SkVCJg MGZlM PG2YYN7Waa gMTA5 IDAgUihfYz kyNjQ 3MDktMmNmO S00Mj JjLTkwMGMt NDhiM TllNTZlYWN iKSAx MTAgMCBSKF 9kYjF jJRKyGK7kE jdhLT S0XkvxAXBf MS00Z jEyNWVkYWI 1MzEp IDExMSAwIF IoX2E gMCIxKAQ1I TFkMG SmNFrhWT3u OGM1L TRmNWEzYjB jMTEy NCkgMTEyID AgUih zGmViGOJ3F TAtY2 O2MU38YlLw LTk5M IKcXjQ9HMs 2ZmU2 YTZhKSAxMT MgMCB BTZ3cECB6J jRjYi 3nCjOcXYC6 NmItO OWnJv5tHyH jMjY1 T7RrKGLoIN ExNCA wIFIoXzczZ jA0OG Z0USB5VKTa NDJlO L4aHfg4YEL mYTU3 Ced7KQTxVI kgMTE 1IDAgUihfY 2Y1M2 IzNmItYmFm OC00M ZDwDYA2GMQ tZWZm RZSiXzM2UE MzKSA xMTYgMCBSK F9kMm AlOBM7RG98 MGYxL TRkNzctYjc 3NC01 RjXdYAX3GG JjNDc pIDExNyAwI FIoXz VsMzV3PHE6 LThhO YCoWCA9BY9 4YzVm MTS0KxmhLV U2N2Y fLDerTBZ5X DAgUi scDBL1IDif YmItN YVzHV80Ipa 3LWEw MzMtMDRmYW NhNTV jMjFiKSAxM TkgMC UHDW6kARS1 MTEwM Y7rL1C1JPI yODMt RrL7Zb60Gp FkMmJ iMTllYmYpI DEyMC AwIFIoXzMz MWYxO DgxLTJkNWI tNGIy Uc79ClwlKR BjYzc 5EFj2NmZ0U CkgMT IxIDAgUihf NTQwO OB6HdVuUcE mNi00 Ifi1AVFbCb MtNDQ 6NOGcPXF6W GY4KS AxMjIgMCBS KF8zM Zf7JiXjON8 1MTI0 KGP1XyHsBm E2NC0 1MWEwNTIzN TVjM2 YpIDEyMyAw IFIoX zZiMDNlOGJ hLWZk NDQtNDZkNC 05OTV mLTZlZGFiM DlkOT E1VdalZKJ4 IDAgU ihfYTNlYjB lYjgt FiHoDu08WF NmLWE 2AVvcNOK8N DMzOT cwNDdhKSAx MjUgM VEEKR1nNPY yMjBi Co14DPZtDS QwMzQ sBDU6IZ20D WRhZD d9WbQwCFNq IDEyN uBrPIAzR5O 4MmJh BWO8JWL3NQ UtNGI 3XE7eJJf9K TVjNz QzZGVkZDQ3 ZSkgM BR8RRIgLgz fY2Zm SXF4CTHtG2 VlMi0 0MjgwLWFiM zMtND JkODdhZjEw Y2I0K SAxMjggMCB SKF8z YzZiZTJlMy 1hMDQ 0DTC2BoFtV ThhZi 9nIMH6FuVm YjkzN zYpIDEyOSA wIFIo R5NgCcAjD2 ViLTN tDkNxPUX1C y05Nz x7BXN0TGPw ZDdjN zBmYSkgMTM wIDAg UihfZDcyNm IyMDk mBgLcOW68J mU2LW FiNjgtNDFi M2YyO ThlNzBjKSA xMzEg KLPOOH1nIR MyMmN qEE0hEAvrH TQ1Y2 KuEUKoHO19 NTFhM 2FlZTUwOTk pIDEz MiAwIFJdPj 4KZW5 js1KfHlY3W DAgb2 CtMjm7B5Pm c3QoT PtKMi5BoZr zaWNp MV7yB63ch0 VsdCk kPLAaCH29N DEwID SxYk9IoCTx ZTxmZ NVvNUX6ZTL wNjgw KIv9KGB1Rd AwNjk jQVPbFQQ9L TAwNj EwMDZlMDAy MDAwN DMwMDZmMDA 2ZTAw FlQkZCn4WF A2YzA wNzQ+Pj4KZ W5kb2 JqCjEzMyAw IG9ia vz1OC9Ix7Q EYXRl HIR6DeHnRG A1MTM dOzL8UtIwM DQnMD VjLS4SjlNa dGlvb kRhdGUoRDo yMDIw MDUxMzEyMT kzNis tNCcwMCcpL 1Byb2 Z6N1PcGAtn ZXggU ERGIENyZWF 0b3Ig PU88SlLhOR UvODQ zOCBbSkFWQ V1QL1 U3FH0zNEtu aWVkI EWewN6zDHn UZXh0 KFYzCO48OR J5IDF DU3dIEX9+C mVuZG 1veku9vvEh CjAgM DU3HpNmNHQ wMDAw KEHyGmG3Ep UgZiA KMDAwMDAwM DAxNS AwMDAwMCBu IAowM DAwMDAwMTA zIDAw SEBaFO4iFz AwMDA wMDAxNzkgM DAwMD AgbiAKMDAw MDAwM DMxNCAwMDA wMCBu IAowMDAwMD AwMzk wIDAwMDAwI G4gCj AwMDAwMDA1 MjYgM DAwMDAgbiA KMDAw MDAwMDYwMi AwMDA wMCBuIAowM DAwMD ZgSyI7GJPi MDAwI S2pMsVtLFP wMjk2 MTkgMDAwMD AgbiA KMDAwMDAwM DkxOS AwMDAwMCBu IAowM DAwMDAwODU 0IDAw IDLjAP3iHr AwMDA rNqh4UMeoC DAwMD AgbiAKMDAw MDAwO DUwMyAwMDA wMCBu IAowMDAwMD M4ODA 2IDAwMDAwI G4gCj AwMDAwMDA5 NzMgM DAwMDAgbiA KMDAw MDAwMTAwOC AwMDA wMCBuIAowM DAwMD EtVwb1YVDp MDAwI M6vSxRuLBX wMDM4 NjAgMDAwMD AgbiA KMDAwMDAwO DE2OC AwMDAwMCBu IAowM SEyGGU8PFp xIDAw MYPgJP2jGs AwMDA dMZF9FYnzI DAwMD AgbiAKMDAw MDAxM zkwMCAwMDA wMCBu IAowMDAwMD EzNzk zIDAwMDAwI G4gCj AwMDAwMDg1 ODQgM DAwMDAgbiA KMDAw DFDwWZC6YE AwMDA wMCBuIAowM DAwMD W8BSg3UKTn MDAwI X4tDmTuAVX wMTQx MDMgMDAwMD AgbiA KMDAwMDAxN DI4Ni AwMDAwMCBu IAowM OKjVCW8NvJ 2IDAw VFNvWE4gOl AwMDA lYXf9CfjwY DAwMD AgbiAKMDAw MDAyM zEwNCAwMDA wMCBu IAowMDAwMD IzMjg 3IDAwMDAwI G4gCj AwMDAwMjgy MTcgM DAwMDAgbiA KMDAw MDAyNzkzMC AwMDA wMCBuIAowM DAwMD N5Rfw6QKBq MDAwI T8fYaMxUAH wMjk2 NTIgMDAwMD AgbiA KMDAwMDAyO TcwMC AwMDAwMCBu IAowM UHlAEX3YdG 3IDAw MPYaEG5dDf AwMDA kVui0VCSkE DAwMD AgbiAKMDAw MDAyO Ol9UgOzGNS wMCBu IAowMDAwMD I5ODg 5IDAwMDAwI G4gCj AwMDAwMjk5 MzYgM DAwMDAgbiA KMDAw CSVhHGn5HJ AwMDA wMCBuIAowM DAwMD MwMDMyIDAw MDAwI F4qApRjYSN wMzAw NzkgMDAwMD AgbiA KMDAwMDAzM DEyNi AwMDAwMCBu IAowM DAwMDMwMTc 0IDAw RBRlKA3xZq AwMDA wMzAyMjEgM DAwMD AgbiAKMDAw MDAzM GD4CZUpDBX wMCBu IAowMDAwMD MwMzE 2IDAwMDAwI G4gCj AwMDAwMzAz NjQgM DAwMDAgbiA KMDAw MDAzMDQxMS AwMDA wMCBuIAowM DAwMD VhEDT3VUZe MDAwI O9sCqPrINU wMzA1 MDYgMDAwMD AgbiA KMDAwMDAzM DU1My AwMDAwMCBu IAowM DAwMDMwNjA xIDAw EVEhGR6gGw AwMDA zFwT5FKskR DAwMD AgbiAKMDAw MDAzM NU1PuEnJZN wMCBu IAowMDAwMD MwNzQ 0IDAwMDAwI G4gCj AwMDAwMzA3 OTEgM DAwMDAgbiA KMDAw MDAzMDgzOS AwMDA wMCBuIAowM DAwMD BjOIe2LGUy MDAwI C7cXqKcNML wMzA5 MzUgMDAwMD AgbiA KMDAwMDAzM Dk4Mi AwMDAwMCBu IAowM DAwMDMxMDI 5IDAw ECOvRM2pGa AwMDA wMzEwNzcgM DAwMD AgbiAKMDAw MDAzM TEyNSAwMDA wMCBu IAowMDAwMD MxMTc yIDAwMDAwI G4gCj AwMDAwMzEy MjAgM DAwMDAgbiA KMDAw CZLcOSI8UB AwMDA wMCBuIAowM DAwMD EyIyZ6PSLb MDAwI C0oWoTqHXL wMzEz NjMgMDAwMD AgbiA KMDAwMDAzM TQxMS AwMDAwMCBu IAowM DAwMDMxNDU 4IDAw CROoAS8xCt AwMDA lOzR0XQYhB DAwMD AgbiAKMDAw MDAzM JQ2HDCjXLI wMCBu IAowMDAwMD MxNjA xIDAwMDAwI G4gCj AwMDAwMzE2 NDggM DAwMDAgbiA KMDAw EZJkRGM0JG AwMDA wMCBuIAowM DAwMD MxNzQzIDAw MDAwI F3bRxYqEAO wMzE3 OTAgMDAwMD AgbiA KMDAwMDAzM TgzOC AwMDAwMCBu IAowM DAwMDMxODg 2IDAw DYJnLG4sHp AwMDA nYsR3WgUrV DAwMD AgbiAKMDAw MDAzM Jd5QbZkPPN wMCBu IAowMDAwMD MyMDI 5IDAwMDAwI G4gCj AwMDAwMzIw NzYgM DAwMDAgbiA KMDAw MDAzMjEyNC AwMDA wMCBuIAowM DAwMD MyMTcyIDAw MDAwI S5qDcYbMBO wMzIy MjAgMDAwMD AgbiA KMDAwMDAzM jI2OC AwMDAwMCBu IAowM DAwMDMyMzE 2IDAw COVbCU1uXe AwMDA wMzIzNjMgM DAwMD AgbiAKMDAw MDAzM jQxMCAwMDA wMCBu IAowMDAwMD MyNDU 4IDAwMDAwI G4gCj AwMDAwMzI1 MDUgM DAwMDAgbiA KMDAw MEUtLhH5Py AwMDA wMCBuIAowM DAwMD InQSz2AVXs MDAwI W5kYmCvADD wMzI2 NDcgMDAwMD AgbiA KMDAwMDAzM jY5NS AwMDAwMCBu IAowM DAwMDMyNzQ zIDAw QREcPJ1pVb AwMDA bTqO5VZTkF DAwMD AgbiAKMDAw MDAzM ug1AQEsXOM wMCBu IAowMDAwMD MyODg 5IDAwMDAwI G4gCj AwMDAwMzI5 MzggM DAwMDAgbiA KMDAw IBLuBuu1Gi AwMDA wMCBuIAowM DAwMD UhZDD2BIUv MDAwI M6qLzRfFYH wMzMw ODMgMDAwMD AgbiA KMDAwMDAzM zEzMi AwMDAwMCBu IAowM DAwMDMzMTg xIDAw ARHrUN5dPy AwMDA wMzMyMzAgM DAwMD AgbiAKMDAw MDAzM cT2YGPjLLZ wMCBu IAowMDAwMD MzMzI 3IDAwMDAwI G4gCj AwMDAwMzMz NzYgM DAwMDAgbiA KMDAw MDAzMzQyNS AwMDA wMCBuIAowM DAwMD MzNDczIDAw MDAwI G1rReXaIBR wMzM1 MjEgMDAwMD AgbiA KMDAwMDAzM zU3MC AwMDAwMCBu IAowM DAwMDMzNjE 5IDAw GOTcEY9lKo AwMDA zMlZ1HayrO DAwMD AgbiAKMDAw MDAzM zcxNSAwMDA wMCBu IAowMDAwMD MzNzY 0IDAwMDAwI G4gCj AwMDAwMzM4 MTMgM DAwMDAgbiA KMDAw JQLsAto1GV AwMDA wMCBuIAowM DAwMD MzOTEwIDAw MDAwI P3aBvTxBBV wMzM5 NTggMDAwMD AgbiA KMDAwMDAzN DAwNi AwMDAwMCBu IAowM MWsQUD7ZOC 0IDAw TWBwXV1kOd AwMDA wMzQxMDMgM DAwMD AgbiAKMDAw MDAzN KB6GIVlKPZ wMCBu IAowMDAwMD M0MTk 5IDAwMDAwI G4gCj AwMDAwMzQy NDggM DAwMDAgbiA KMDAw ZUTlBXh4US AwMDA pPWWdAAf5e mFpbG YsEdj1G4nx Zm8gM TMzIDAgUi9 JRCBb RWR4TpGgRK ExYWI 0NmNjMjcwN jQzNj hhYmIxOGUy YTMwP mkpHJL1YUH kNDgz MTkxZTRjYz Q4ZTR jSFFoWCq1S TUyOT 2tL0Scq8Xl OCAwI NXqA9n9GOQ xMzQ+ PgpzdGFydH hyZWY KMzkxMzEKJ SVFT0 YK ID Date Data Source [id number] 02/15/2020 11:00:00 AM EDT [facility] Name Value Range Interpretation Code Description Data Supporting Source(s) Document(s ) Physician Luke MarquezSKBGOj1kGg [facility]Je[facility] rz0DWUBMpT G9iag [place] r1OW5VyFU5 [facility] 5Q0wNThR8I 5cGUv Medical Vr4ltU3NYT NlRm9 Passadumkeag hhV8CGFs2A XRpY2 MaKW6mw7Pt bmcvV 5htBV2deVW uY29k pX9cIx6UUE 5kb2J qCjIgMCBvY moKPD wvRmlsdGVy L0ZsY PXaBNYut5A lL0xl qtd9fBUtWP 4+c3R yZWFtCnicK +QCAA TtDOoMHU8t c3RyZ WFtCmVuZG9 iagoz QSFfl9WnNl w8L0Z pyDMndw4Mo GF0ZU LxN40vZT7I ZW5nd GggNzA+PnN 0cmVh hXp0pVYS0S rk0o/ INFIwNFAIS eNyCu EyVDAAQkMF I1MLP XNTBQtDPQs jhZBc Rv4KlMFJIL OF/DQ Nj26PQB3KW K5ALg C0/M1IThKx ZHN0c mVhbQplbmR vYmoK NYSyZO3ozt o8PC9 CuMy0JKClU mxhdG VEZWNvZGUv TGVuZ 2GzDYUtVf4 zdHJl JD5WkNxn9R IAAO4 AfAplbmRzd HJlYW 3BPF3it8Tf CjUgM CBvYmoKPDw vRmls bVErI8HhDH RlRGV ye3PtZ9rkq md0aC A3MD4+c3Ry ZWFtC nicUwjkKuT Sj8g0 CBJ7ZCpT01 IK4TJ UMABCQwUjU ws9c1 MNK3F6YsTP kFwuj ELU7ROCG9I 8NAVz zZAsLtcQrk AuALX KWe4BRJ2qc 3RyZW UtYcOyRE4e ago2I ZWgz0GdXtq 8L0Zp uHNzgk3IeG F0ZUR yL30jEC0NA W5ndG ggMTA+PnN0 cmVhb Ui1sFbvHcC A7gB8 YcZmHDS4cd VhbQp lbmRvYmoKN yAwIG 3uypn5LA4X aWx0Z XIvRmxhdGV EZWNv ZGUvTGVuZ3 RoIDc aVn5szYOmM W0KeJ eEKPTg3KLA yDRTM DRQCEnjcgr hMlQw AEJDBSNTCz 1zUwU IMh9BN5YEA C6NgM C1UGYqzjh1 BXPNk Yiv2bReIM1 AthgN 4AplbmRzdH JlYW0 TTP6la8ZkU jggMC BvYmoKPDwv Rmlsd YIjI3CzUPO lRGVj m3SeO3senh d0aCA xMD4+c3RyZ WFtCn icK+QCAADu AHwKZ T1ra5XxPCF tCmVu CK1sbgu2RA Agb2J xTxk9S4Aoh HRlci 2CjQU4OJTe Y29kZ G6TLY4rcNn gNzA+ BzR4ccHdcW p4nFM H1Crj9b/IN FYwNF AISeNyCuEy VDAAQ sXGW4YWYCA TBQtD PQsjhZBcLo 2AxPR UBROF/DQFc 82QLC 1KVG4YUgJ0 Qw3aC rAuQAU2rsE hbQpl bmRvYmoKMT AgMCB vYmoKPDwvR mlsdG RqB8VpABCx RGVjb 8EyX2hggdp 0aCAx MD4+c3RyZW FtCni cK+QCAADuA HwKZW 0ay9PjMUXl CmVuZ U0xbatwABO wIG9i oei9UQ9XwO x0ZXI vRmxhdGVEZ WNvZG LhLUPsJ7Bd IDY5P t5icPYvPD1 KeJxT MTRn4QLYzV RQMDR QCEnjcgrhM lQwAE MGMDMEBm2a UwULQ w8PH2NRMF6 NgMT0 AAX7bjlFlV ZIFpd aRBbjMrQ2o g3UCm TlMOL6duOa bQplb mRvYmoKMTI gMCBv YmoKPDwvRm lsdGV jJ9JpPSZoT GVjb2 MmA9xasyz6 aCAxM D4+j8JyKXV tCnic K+QCAADuAH wKZW5 qv9AeCNClF mVuZG 9iagoxMyAw IG9ia ji0MY7PdIw 0ZXIv RmxhdGVEZW NvZGU yLTFrO0JuY DcwPj 9wgYZpRX4R eJxTC YKm1QSMaWA UMDRQ CEnjcgrhMl QwAEJ SAOBCLv7lS wULQz 6HF5OMXF8B gMT0V EFiivf5RMF NkCwu 4oOeSD8GvT UN1gp lbmRzdHJlY W0KZW 2dy9AnHzM7 IDAgb 8LhCks7E0M pbHRl xh7RaTF9OA RlY29 pCW2CGT0oc GggMT A+RwL1mfIy bQp4n ErvElNW4mN 8CmVu PHJ6ezGmaB plbmR vYmoKMTUgM CBvYm oKPDwvRmls dGVyL 0ZsYXRlRGV jb2Rl V1jvmmh5qG A3MD4 +c5VtJGPuZ nicUw mtEgQFo1c6 UTA0U CpE84IB7AT UMABC DuWxEsu8q4 MFC0M 9CyOFkFwuj YDE9F WMT1N5DCHq zZAsL tcQrkAuALW KDdwK KX7dx0NvAI FtCmV xDW0uophoE iAwIG 3xaug8PE7I YWdlT Y4nCO2Hg4P Ob25l G99nfPEcSL E3IDA yBh1VuEQwT 0NhdG Oib0saR6H3 bGluZ XMgMTggMCB SL1Bh F7RgHLF6FC AgUi9 LtPE3BNIMh mVmZX JlbmNlcyAy MCAwI FI+PgplbmR vYmoK MTkgMCBvYm oKPDw yM1sgj6ojM SAwIF ZuF2B9jZHc UGFnZ XTvS316xqB gNy9J VFhUKDIuMS 43KT4 +AcPrCF7rl goxOC IuLC1nrvw4 PC9Db 9KgrJGbU2Q pcnN0 IDIyIDAgUi 9MYXN 0IDIyIDAgU j4+Cm ClQG4ccytd MyAwI L4ttrkqI8f DQ0Jh b7GaKQS8TB AgUl0 HIL6ja0XaT jI0ID Juk9NfNsa4 L0Zpb CQlay9JzBP 0ZURl H22zOR7IGO 5ndGg fOvG4Fr6ZR DM+Pn H4wmHejSy5 nJ2Wd 6EM6BhFm93 3vVCS RUmR8JvrQi JIDb1 CzV7uIJrQK sCQAC F7WTIdDGAK pggyK FJTx4RMsYF KhQFR sesEGUTUcX AUG5Z AHI3L98v79 82b3x /3fmufvc/d Z+991 roAkPyDBcJ MWAmA DKFYFOHnxY iNi2d fKkPH8VIZp ADgcL FtDbw7XiGO AnzYj GyZE/gXvbo OIPn7 KtM/jMEA/5 +UuVk iMQBQmIzn8 vjZXB jDcXu7S8pz t0/Jm IE0Pm7mGe2 iWYIy KaKf8mczbG aZZQ8 58zKEPBnLc 87iZf Xo9KopaYdH voyRY PgL6gy6nLO +JmOD aSbPMVEk1Z EZfE4 4ZVtW6M6bl 1NkbC 2aoantqx4o eQDgS Ujt1SSpJQc PE8sP cq1NKj3CLA eIGSZ qA8uZfdJW1 c/PTe eLxcwwDjeN I+Ix2 JkZWRzhcgB mz/xZ FHltGbIiO9 g4OTg reS0wlukTa 138m5 C9trPctL/u GUQf+ JV5D68CNCA wpmW1 2fqHbWkVAF 3rAVC 7/ZuSWZ7Gp rK+dQ 36aJ96sM0I xOIsZ rxb8CujBkF faykv 6O/6nw5/Q1 98z1K +3e/lYXjzk ziSdD FDXjduZnqm RMTIz uJw+Qzmn4f 4Hwf+ tE5ZQypgif gvlEV Ar8ABZZcNn VvIE4 gFmUKGQPif mvgPw /8o2ojYfwq 4EdCW WAKlIRpAfh 4AKCo RIRh7BNpM8 30Lxk cD+n0O2HdX nfvPg u34X8nK/sg WJH+O G2dRCfpYKa 7smvx aAjQgAEVAA +pAG+ xEO7JUsoTL uAAP4 AMCQSiIBHF gMeCC FJABRCAXFI C1oBi Sfd9yC3bSq aARNI Z3cSp6yHTt NDgHL oHLYATcAVI wDp6A KfAKzEAQhI XIEBV Qz4WmT3arh oVYkB vkAwVDEVAc lAglQ 7EONnRS88J SqByq rvwaFeiz1L h0Gro NOZS4lAXgH voVeg cjMAmmwVqw EWwFs 2BPOAiOhBf ByfAy AH3ilzyAgQ ADfBD uhE/Dl+ARW Ao/ga cRgBAROqKL MBEWw kZCkXgkCRE hq5AS pAJpQNqQHq QfuYp IkafIWxQGR UUxUE zCP3buLZYq opahV fR7n3iQG6T dqD7U LvDygfe5CW 1Ga6L X2y2uUNNxH hmdiy 7UE3Jj8Q0c s+gR9 Rg9MMpGaDO MMY4Y u6pfByYwZb MZsxv TjjmFGcaMY aaxWK f35qqgwx9D crBib YD5TokDgzN 7BTuO tBZu2jPovz hfXDx OiCvEVeBac CdwV3 NTkPc5Iu5X 74wPx fPwy/Fl+EZ 8D34I U29nCFrBlS muhEh CKmEtoZLQR jhLuE u6DXVW5XxO xHCig EjUGKg3TRj PHCW+ INVBPyZ7JP EkIW0 o4WsmHx4fu SCTyU GoG2C5LSyp Qm4mn jJcD09AnDs YKgQo 6RGMR5BuoG pcUXi yaHu7WMHDL KyYr1 iheERxSPGp El7JS ImtxFFapVS jdFTp msF3CjTYZc lUOUN 5r2RX9wNfT xQsxY jiQ+FRiij7 KGcoY 7QVtk8kR2r UddRG 5ebtPZ4RV9 YF0FJ mgkAuuUQ1D RWKip 0VpGkzNx2P cRUpH wYt0SDd8iX y+mH6 iua5GW5QH9 W+6ib VNtUrqq/V5 qh5qP TONuAw2MzQ 3qkz1 B0H00X3wEw p39NA aZhphGvkau zROKv cyM6fyutt8 pySOY gk9SlVMd07 IzRXa V8FSOMx9lJ W8tPK 4wrYHpE5LD uu7aG dqr1D+4T2p A5Vx0 9HqAKA03FU Y4YKw 4RHdbop2CK mdDV1 /ZYqkhV0x5 ozesZ 3ZSuJsr741 /QJ+i z9JP0d+r36 UwY6B iEGBQatBrc N8YYs euELEId4me +NjI1 deJMPyWu5X lYzDj ARP378nlgH NnE3W WbSYHLNFGP KMk0z 3P939Xy5tp dLMas oIrDJrP9ZH ea7zY px3OLDQyFD BosbT EVSd7yNfRI OWtIt ja0CLhewc6 kZWMV bbbPqt/pob W+dbt 1ofceGYhNo U2jTY /DgyWia72z G9tpc 8lzfuavnds 99bmd la8lkM6zZo mofYr /Bvtf+g4Oj g8ihz SZI8zBc9zU W8QaL xgpjbWadd0 I7eTm cmhaa1VqVj VnsfN s7RkwpC6rP i8uje cbz+NFn062 56rly TRujlJ4Tj0 S3vW5 Wk533dwcO+ wMPfQ +cN8GGoBwa Z6rnQ g4cOkWvGz3 Or9ds Z/FE8lywnC vPu8R 70IfiE+VT7 XPfV8 924mxYg2aB 3m+F3 yl/tH+Q/zb /GwFa AeiQ9dSfOW fAlYF 9QaSgBUHVQ Q+CzY WTcS8qkKqn yPaQu /VQ7neix2V C0IDQ 6hG8yptMnx V9H44 XHbbtMK2AB RNREN G/gLpgyYKW Ba8iv CXWXc5TpKG Jonqj FaMTopujX8 d4x5T HSGOtYlfGX orTiB RJdzvq95Ux m+KnF /tc7XjzBJS +oTjh +iLjRXmLLi zWWJy ++PgSxSWcJ UcS0Y ulfA7J4gfv nAbO9 VSKpyDXg6z s7i7u G34Hxvefhb /KL+d TRLwhwEw3R nZN3p 48meKeUpHy VMAWV Auep/qn1qW +TgtN 25/3BS2cmP 0Dl5G YcVRIEaYJ+ zK1M/ Kwe6SAc1tc pMucl +1cNiUKEjV lQ9mL grtVTLjD3A DERLJ eMprjllOT8 yY3Ov uJbuThJO2p udnyT yir7e9ct09 BWsFd 7RhlB8Q5GB Sl58r 1WuCbudg7X +uvLl t8khIvfGM5 hLVpa 99ppI2lO3z 5LmZd H6IW2Lykkc V+61u KWEdRzZh0i Gyo24 ykYEs4xZvu pqpNH 8t6XEgCmEo rSt9v 5m6++JXNV5 Vffdq StGWwzKFsz 1bMVu YT70bvwm2l Vy7PL x/iInB7gge jR8mO ntlI2MoBYG dRt4u eU7FLFiyt2 V1lUL R14c84WrPH jVdNe 85c0zqt39q 5u6/s 7owBBmqYH0 r3bq9 b0045i/Magnolia qOGin 0RbPs0AdLM N/Z/z cq1fJknliT pw37h zgbNmJU6oO 7NzS2 aLWWtcKukd fJgws HL33h/093G bKtvp 7eXHgKHJIc ef5v4 4oJRGTw8v8 COtH1 n+G4gN0Hbx BPqXN 927PBGBx0Y 6x4+G wk2k5ohv+N 7y+/3 J4M6SxSe6B jZCcK JohOfTuafn D6Vde ec0vNAE93D eu+ci T1zrS+8b/B s0Nnz 45nJwbd37I 953vX 0rLxXP49iF F3suu RwqXPAfqDj B/sfO gYdBjuHHIe 6Lztd 7fklL5kyng uV01e 5u720NoVk3 sj8ke DjOqmj1ug4 Ib3Ju /waLhjp48u zbs/c WXMXfbfknt K9ivu a9xt+NP2xX eogPT 7qPTrwYMGD O2Pcs Sc/Zf/0frz oIflh xSNKYTNc97 fHJn0 nLz9e+Hj8S daTma fFPyv/XPvM 5Nl3v 2p6YwVQGzX +XPT8 06+bX6i/2P /S7mX vdNj0/VcZr 2Zel7 zUn0EvLmpw /7uYd xMzue+x7ys /mH7o +Ds63f1ymI +ffgP 5aHB4OsGjX HN0cm VhbQplbmRv YmoKM jUgMCBvYmo KPDwv T14tj6VPgZ FjZS9 GYDCzH7BMu mF5L1 L7NqM7lIBk SW1hZ 8QyBIArZ3t 0IDI5 P1GqyMTmpn 9GbGF 2TZArH15fN S9UeX AeQ6uCTloi Y3QvV 2lkdGggMTg yL0Jp dHNQZXJDb2 1wb25 xszYkFO8CZ W5ndG ggMjg+PnN0 cmVhb Tv9mX6WGMO AAADC kP9gTwiayO AAAAA ONxd8C6sYP mVuZH Q0veAaqWbc bmRvY moKMjYgMCB vYmoK GLufD55ch8 JTcGF jZVsvSUNDQ mFzZW QgMjQgMCBS XS9Td GA9iAWfM3w tYWdl P7iqtFbuiT AyOS9 UsNk1AUKaB mxhdG VEZWNvZGUv VHlwZ G4OE3AeNPP 0L0Rl D80uBDVgih 1zPDw uE64snQ1de yAxOD YkO59wd4Nx IDMvU HJlZGljdG9 yIDE1 Y1FzsPTBST JDb21 iy60gwhEsV D4+L1 dpZHRoIDE4 Mi9TT WFzayAyNSA wIFIv BG32EGQdf0 xhdGU ogJV2GG0LU W5ndG akJET8LP4Z aXRzU GUoK22rqO0 uZW50 IDg+PnN0cm VhbQp 10w2wJHPCF 9bHb+ IkcybRuEZZ Gpq1Z ILKFB8Z16K IQoyK X5bXWMknZY GNAho YLyHF85TI+ 8KqgI S2wvdUrWKm GcMmA WVREVBRQUB AlEVg qrqRpemGRt Evfsd 62zMh49prJ d361b 3/e+sJPW/M 0UUPy niSD2jHvlg 0tVjF 6BDR7daohx /Xb9f FpFeEJlfEZ 1fce/ io5//LAdrr AvRNg z81C/vsB3w uMQvT Cq09zHgYR6 +zvka YS4jZrK2Ra 4SI2k DfZflrG7K1 CdhxL K5Q85DngWw iuOMk HRVGusMV2g huziy 7cj9GHDJkp iYTFO jvtM9w0s+G pserD 4bDpKMwzXn OtoA1 gtUnIi6oSt dQdNn qEIPIfuMRy S2tZQ ueIE5Nmsj8 qtPYw rysK/cGNmp seZqa W5Em1ezdA1 GfDyT j1AVcKjfjW 2saXn X/9tkud3pg hKlUM PQCQ0/QZI/ q9l3k OLPyvS5Q4s kBkTn udAd4o1AUE 5hCJp /ZjCddg2Ws TCaDE jkgPv/NRkT 8l5lT VKinUWt4j3 w4XGt gNp3mRPbht buvs5 xFtX2Tfdxo h0PkQ h28DW6V/po Psz3G THHZZ2TSvE Qlamp wrvAKSC4II DBgOs 3V//c3BYih ZuxFh JjtNPN33WH E5g1z v/bGAJjlAS r09o7 253h61k6Wq UAgC5 Xo4eh8CuwZ utdWk W4473cnDs+ bhvnQ 8Hj0rC5PkN nuYNA RoKCTUVjx1 +fDzC xc3GcF0Lx4 +uWLE gR91t5iLJ5 1Qpgl AGX66+/9sl 1RoMe TisgKiwiYR rbh/y AzSh9SqJjW jBkid 2vrQYEMczx hwcja DEhNbJ6DZu 5/cT7 MaQkwlbLdP vUlET y6v7APr0gI R2Tl/ hhQYyEnccx HZs/Z QoQIewwRMd waBPr BgMU7w8JZx LzVPg QOuFPK4WGb /7J87 XJjdCt26go u5/RX o8fgI1iQ2u SBBhU mWsMUeyXjE 77Rwz 3QWpCOsidQ coGpZ OOzY34Lpr5 plh8R I/MImOGOpe gsgeH BdY8wNP+R0 9G53S S5RnTnEMKG bj1Yv o606GCZ3QX YdSIu 22m94sbT/g SUXPF TICICkM0CE vfabZ BNYIvm3yIA lxOUW PCsXSef6kp wKK2+ x6ig0IBgNu XX2sZ d38HZNNdG2 +1gkv 7COocM3GQq sr2j7 Z22WQPBur1 sYMJh MGB+tTfcP6 6g61l uh1zdl2H87 YhmC0 tgaFw6cTNV dzimh hzcAPwY8pr HwgTn B2ttg9C+EF 3o/PT HEJjopmziO bRxQn CvOdQ8bMpb iLz4r Ou/Yj3SIy3 vtqnk K2HQ0dFTzP D8lXm esPRajk4im LVWuP 4P4xfOTyf1 4qeY0 6b4jfWn539 zdjxW Q2CoBGFzGT eD3og xaoVwC0MCS kQo/j l3bH6qUOz0 lTcp0 HLBGRmBXin KAXOv TLahVVL2V5 hz4GO gMLYJ3tpyh pkfLh OAEgOpXRtu 1tAH2 nikwxRnmOm WVlDx 5G4rfxSDIU Do6ek LhGzz2sQTE yA6x2 SUia+k5l0H dXeUJ DqJ/G78pfJ lP0Xt sZtNHD1I7Z CsCNr hf40GiI0pw 746Zo rE4cSMcjgt y3gS1 4kmvqDKXrY nZODF tUzFnE9NRc eF52f zD4QT0j5I4 VsD5A 884Z6fqZDO EsfJN 2+EQKPBLq2 qhXnu jIL8sQdXio EiIbt co16uNvHz/ Ck4yz nfxr+E4+qA Lm+Lr bxlIdVV/lj ma3FY znk6Y81EvT nOaD7 hym7eEXnB4 6Dphq IY/pXEPcyX RGQXJ EmA5WZFZht sPxQN apyPvhAMol MfjZf eQ8Sjps7oC 2Zw4a CWymiJcneP GGgEZ 27SI0MkuXI SEaEE ZoIKSv/cqh /US/y Rxw5PYGha3 Hr7Qb 8OADUKaPGU V/hLP k15REjt1yJ lR6Sh 6akYERv+5R EQQTm hrpvn7DHLS Iwsjn gSPcq1THK4 8z3ja 1+gEaU4Fp3 X5aVq L7ESOm4av7 jn0ao DpQq3rwOGY X++Jw TfMgSRtIJb yJigx o42MLcdi6N HzaBK R4UNUw0Fwl Vld5H aZo1vOoJm3 MR/7C bp7dMVvADN 53hMM Zvku19L6+R U/7mm 99TdGPLuP/ lSRwV EKpJvxLV+0 gJhO6 8DaXDxwn4J X0m8X W7a3x417eO p5D+H yEAhtstswS tBRI1 VXHF/6K+Vd +tQDE KTYcFKkytq zOdg2 yEEJrmI4RE ku0MK duP6gn/uFP ZdXHX zQK4hIWOHv 2vEMl wCkXGL+GDg AfoM6 V5rMEg5yPw p3vWZ cwfLIB3+Nq doiZb xmTfLKutGj 4ge38 QyyutsCft0 0cCTJ Ku3zshcfde D3ePg KzoLJ6IrxE bj6H1 Cgy6J0djva zYEPt nXaz1eXTPi zt1y+ hUiQmSWVUn fOhFZ h/df+3NyIY JyGVz TT1AqR8mVo W1HRI rV5UR5uISu /MEpD V6AUHHw2us CKlMC qds64iYLtn y0cn+ 9iWsk6mCm1 PfMTh CCtHiz4vb4 LowwL ytX0fsxb7y TbaT1 MvDRee4VgO 412Pk rRPGkl02cl 22kWA eNW+gzoik/ 2R7yS hGRlfSKEdn hmCQX Igu5Yi/CEV 6R24u kirwI/7OdZ /su7j vmBctsl2ei ReMah MwwlxM1PaA RECr5 1cjvxK2+6U BiYgW jRO27/gszC aOGLq ubEWQem5sv fVlEX yOl4wxUoPH AOjHJ CaKOjVD7Kc J7tvC +HcposLaaT kXhZp gnp+RWbD4S CYZc7 KX+2oiorPb D2pPE tCLwaFfJ10 vP4r0 iGF7syrOgI tLYJA WRzbaJWDYh U88gD fM7f4zg/hE YT8am Wtb7HjkW4y 3BONY sF7BpuItbf xzDXz ciCsa+2GQa 1Mftr qZf5LSX8mC aE46k TDhxNTD43q eB2I2 /MHL6yvoeU 4vI2o JWHHrcb1y+ YIycw 1tw3G2Rseb HbYB5 PbCZrEkU15 VGOJd 4M5N72yhYD 1U3pA gxKCQ+aFOS L1e8M OP1l7MFC3F IixCZ TyR04kx59o 27E5c P3C1F43kyx alr6s 3wv8bwpJg9 urzIi ZgiJERgtuc kI768 kMAbOg07ov Syqns d3FSsSV8Vf +MbXt Kl9kUys61D qLhit YePM1n7vtZ nD0Vk j2LqmAzxkf YRE6s cxAl0BR1m5 laf2M JcmEYBdUpt 46PBc lWkReaMApG Hj56I TWnNfXlEku WdcoK xWhgB8DgZS WLj5J xyLOeRipzP HCRQH EWIEOgSxa4 hiPSX 9G86w8LM9i GZOSX 7cJPJ9Frgd MIXtF nItlocd5j4 DzKCL m+TXdzYIxK QcAWb nURNc5Gckf P12/d hGhkhxQyR9 Fjzt4 FNyimxs75J V9czn Mie5TX5PL7 kIt87 eqfV3Scuv/ Fq1uY 4Gz99HuMvu 1GpTY 4QMA0ZApj1 pcBML uLgYaOUAN3 U0vEc jk726IjxZ2 zRILE 8hoBNU0dm4 t66K2 BAH3hC0IEy wfKNK mkBKBq91+j n6JfS IlrrpO/04r oIolK Xjrn41T0eB 6dEHB TVWHklklUK MBSVH Ogf1cUKdkj oSaEH GKdIjFv2U9 T1Ro6 kVUxX1mLD0 /dHk+ AjqP2dRuSB gSQ5V b8hoceWlBj OMkir LZLcoDnmew lBhuy I9OpIzH2G+ hZxtc xvH6Xc0EJq nljWa EYfgTJZ3FL XeyPn bAmWPmRVGl 6lwvw BCTMNrXNF4 +PSEX ELyBMjQgsc Touor M7CoAHzx3B 1ycDr vLOXcfEDUa Lueqe 9EkKrF8/1y z1N9p nUQQHVOzIf CFTR9 vjUqPYu2z8 +jMAO exVm3jneNX dkNaa t91hPGVVUi pWyGp mI6PG/sYiW 32NHZ 0QxGU5J2Kn 3SLQa vq42vO4i4/ LfeIK eByhQa+ol6 bzwxy 26xB1Ka2oN pOw9c 77CkW1evfV h/UAe EX6GVq5X2c w8b1A in/tdZmGmt Q1v0f 3KSwMVsrSJ aAOiG 5rHpJz+nSx 1E38s J3NozLVp2v JS/GH x5oRZaPVNH uDqqg YrJf+GxE9f 7Y3G+ KbzUOlT33v pA7dA P4zmDylNyT GHHz9 pF+0O1OU1B Upu8Z 3IOir4wOo6 IuOyS /BHplocQZg kqfCJ 6BQESw7V7Z eQ39r MUGgZNa2uY A2oMv ZTnJtpw2Zj CsKlL TDaZqZ2pvQ Ua1Rx gPKxVt4EVP 09qH8 zjqs6gmtLo uowEB ilS6UUeAeC K+UPp NuTSMHKkci 0Yl0o h3rnw9cflj tSXOG HBkvH6TF6K YgWjD vlzdkTV3ej aXuvZ DmCjKlIwzc qU75z hL955hQkrM W30E/ rnYj2AWkSN rqhRf XzlLkacf5W d6aQN lgwqAzxKy8 dNLHQ NWpI6jinne 0jHPX IIv7ihqZDs RGdSm 7JwKRywTl3 /7vcw usPLNkpEz/ 3xLst nK3dCmOrcW NCYPz Mzw22eIrUQ 9qQeH oAFai7rLG1 Fngji uEjJ5h+9Ef XcwPm y13kOLyGHy 1v0yk UBcf9i/3cA VIxy+ u2CxnF8GpB Vtx5e IiTTlzjife A0KtR aBOtaZBA7b Nv9j2 uiN9dNxi3n ZcaXX WV/85jFxWM jwNYo Z/QQJbvFeJ IhO4l aTHl878fYU NUbzA EDasb0dBrx Oh4Mr ZgmUen93ft pTU0t 8hJSWpOFZD cYDzZ nX5SP3sxVL GDfwc D/u10ZyGLk /iEVV Zv71Z02+hc mO6Cx 2pGjdpJtN2 TqTCH 1iO8fTwFLT B3jD6 LMNDyVXF5o oBk8Y 67dzMYDR6s oG6jQ MbHplanwEQ n+Oio 0t2zjn476d KSrsJ OWjd1NhcT6 urqFA W+ZiPzEJjg BnPpr Q4mY3IkFJR G36jO hwzgP6J7TF tdIPz 6IKQnY2fro gU9u+ 9E/8pbLOe1 ZRfe3 8W1mw1ql5/ NL7Ss wEdH2MSqGw kam1t 2Uc5NN/ZBD IEKdd wij6U/RpyI HbqX8 uknG0RIgze qRlh5 /Hh8/yZtaV X9e4t 9cPnsYSSn4 7xYfa /P0Yf1A6b+ V++jZ l5eYWbAALN 479Jd VwgGUhY9RR BbdzD 2nsnei4TR8 OWc0X cjVsmw2a0L LBm90 P15uxk8j0Z fqFl9 UW6jP2k/lF TX+HR E4sJ36x9MH 73hfS aF48mDnVQ6 A0s/I bqeS1JHdDU MWOmP r7wQhbPV1i HRK2l pogvsXc8fV SU1T5 d114HpdqRQ /ECXi v97wAI+WlS UoEsS MTqntHqzbd TfP/X EHw/87Qgou qiuDG Czlc7B7fxy X2kV9 e1gJLpgTE6 X+8Kq 1nALt6xh1K 7b9x6 EDMM7WB9Td gZNCm e850ogpUQZ 9RaRV 3XcqHoISlS cleix cy4ThRo/+h aRt4f kUd/8CObTg cjGio SaEb5vrrgE 2N8Em fkPA7TvUQQ O5LxF 5I6GHdieUM jFwHU IAspuaDCJA spkS0 7ym9L/t4i8 Lpnyo Wsiwx65C3n a36ye /w+C8AzzDp VuZHN 0cmVhbQplb mRvYm oKMjcgMCBv YmoKP SptG0PkqGC 8PC9T C9RhXQ9cxC FyZW5 osF3CPXOwp WUvSy ZcHSadMC8D UyAyM yAwIFI+Pi9 Db250 WQ74k7joOE AwIFI gMjggMCBSI DExID CpMf5jDRua ZS9QY NaqW5Krp84 1cmNl zwx5H6WlbA 9yU3B yD9Z6IQ1UY WZhdW p5VtkMENWp IDAgU j4+Q0Lhj8T TZXQg Dv7CPZSuK2 RleHQ uR5pxJNliC iAvSW 8sX3DMBK5Z bWFnZ DhrT8LsqfL 8PC9I TQEnJMA7TE AgUi9 XHIx5WCNbL DAgUi 9YaTAgMSAw IFIvS GVPYiAzMSA wIFIv VGlSbyAzMi AwIFI +Xm2VJ2JiB WN0PD wvdGcxNDAw OSAzM yAwIFIvaW0 xNDAw NyAyNiAwIF I+Pj4 +I7KsyfAev CAyMS AwIFIvTWVk aWFCb 3hbMCAwIDY xMiA3 FGOfUy1CAJ 5kb2J qCjIxIDAgb 2JqCj p0X3zwIELb MjcgM VKZVZW0GTN gUiAz NSAwIFIgMz YgMCB INDU4GJJvC iAzOC AwIFIgMzkg MCBSX D0GqVQdP8I hZ2Vz V0MgbQ00JV cvUGF rUT64TOI9T DAgUj 4+ObQkPL6d agozM wLdRK6uyrl 8PC9H yl52vMk2Y9 MvVHJ hbnNwYXJlb mN5L0 DSSs9EJ9KP YXNlZ CAyNCAwIFJ dPj4v L2UofObtCF 9Gb3J eP9CfaPNzu i9GbG B5ZXLhM68d ZS9Ue KKhW1sADmu lY3Qv FFF8qzt1Nx EgMCA wIDEgMCAwX S9Gb3 JtVHlwZSAx L1Jlc 291cmNlczw 8L1By f8MWYAOgK8 BERi9 CQZz1C1stB WdlQy 9JbWFnZUIv SW1hZ 9UWMP9WF6K qZWN0 JWfjhG3mNK AwNyA yNiAwIFI+P j4+L0 jjalh4aKCs OS9CQ p17KqRlXYF xODIg OqpmBq5ftZ JlYW0 TyVaDz1g6V DEwMF dwyQcAETYC 1Qplb mRzdHJlYW0 KZW5k i1WrFmI7VQ Agb2J bCbn3R5Qkm HRlci 1EyQJ7DFMe Y29kZ R7EWJ2hcUr gMjIx Nj4+c3RyZW FtCni czVpbc+I4F n7vX+ GqfYGqiZF8 V+8TA XeaHUKyQDL Vtb0P usOX7f1hbd lU9tf vkcGyuTlgs 1Ubii SDan7zV7oD ovypY FnQKEz8kiz ENRVb f8MJULZrIH /sZW/ GMXout4l11 xfxdP 4sVnRkKbZp qBrWE dbhSeV+Daniella VyXfy pvS+s/tYgb vzpVy ZdKpo2lhai ZV5+K /O4/RvX7v/ Vub/+ SSb7koJVWZ dqLZ5 EzoY/pBONH KemJB KL4FeBV1nS /ylYH GVowrun8Kd e168i bKucqfZjtK pk8tC 4Ho0igzdst GWwA5 MqNeYMmr0U Rt1aJ rSpBDoPomz FUvSY p6YzB1FlAg OWJSx aG44lBljm/ 3hvTu cd2IL3Ymcw fgA75 vD26fVj5R/ 4p7lw 1JHwex56dK pOiyk JyoNHOZ3j0 gwC4G mjPqsmDwH1 DtPNt djU9iCr/s6 f9Sv3 n2m8pWLRtY Pox4m Qt7kO4NsOs 9yCn1 9dBUNwKJgt 7VYWU RvbhHPXcVE nXjzt ax7GwbEWUa IsFma 5eRHMcKahf CdTgy 1JjsTML0mP n2gD7 zMR0+TulBk iRDbi nXvUW15nO2 yiBwP 22UyCFwFR7 wczXN S89zkDOLZV mTMHt Y7KgEVwcyQ 3NSSy TC1O2tgHx/ cOpQU c1TorHCWWX vHIow bqJOVQeXPD UvldD C7Nv7PR9yS hgHLx siGbFybEds QeBbi gbdxyEG+tD +asd6 ch+l7pPy06 lAuTU M427nlXw99 OK8D1 aGpnZ3zkzP wOaBr nHll8ZCsJu 5TsR9 6k1EDdHsWK xnlUV wAC1lNT/Ay X69px jyYwOTA14j uKJrZ NiD9TWZ639 fcW8l B5r6nMEpLX 1H5Jv HVBQj9kWE/ gqGYk KRpJBfMMgC pmAQ0 d+a2qiVtnm pNc7k fy+ZV9WqWY 6NYSg JFSilUxoAj /7xpY 1sxHFVrCkL CPL4W brCgqu0opd I9ILx OsW9eRAabR ke12n +nKF9pZRHP bE0Lj 01ki7H2FzQ JP7vF 7KFeZq7mXG 01RxM qbyjY1Kcr2 IxfE/ KfWQFVrOMQ u1iB8 tdWc0+L3dJ igaZp seSifM9tPx jBR+6 5r5j5t5B5l EqZB3 HEtcOlyF4n fFcdy xYF/j7fd4a KoVC5 E3HbQQkpvS AvUMS aSpSgmG0/g uLp7f 1TDxZV47ij SgQWY Mn39AE+THg ewXbb 1P68MNbvjD Ol78p PYUoub1Ht5 xiCMe QpnTjEsSXP QfViw Vq+pmD7LJ+ mgVUL VzQ5Xzibwp qS46r tbl1aHqG6e VqVu6 0+BasgvGUS gotrz Tg9xv+kgiU CwYGB 3RIOgdHN3k zSKU6 wciMHzD0Cd 5tW5Y VLB9bnb5Ed /7GuW dGlCX9vwTr pzW5F tGl7CpcqV3 cDtyw koSfoFPWs2 5uPPh W/JRfHWR1/ RXLyW MCVWbzuE5y 2MgZh IWdKxGfzrf SFEl5 mnyigJQ+Ps c+XvC AxseubKH0w bMydf nuaPsocOBG zy7oW 6S01BdimFo RrZao zUsL0Sxkh2 mpf7U SARMAD/bTU+9mV vc/B7 rWCOLgdVFe xDHZs 3hJuq1UFXi rMRg+ TcyI7TW3/A 6/ZLh T9L+HVD4NE pXoTR 6xgfvikBO3 0FP4m ETsmaa406Y voQPl 89yGgB66oS K169/ cEgxo1iQH3 1SQXB utXe47OenO M0CFO 38op88RarG YVxDj SUmVpRUtQZ pFtaf qyr5euOiDF JgJ+0 X7eBWOT0qC DOeov /Nkrfx3Fh2 E+ti2 TxH4p7k8Sm Hd9lB iOXiXUB/Z1 Wibkq II7rfXm17a yHE0e IPF2qVXPzG ogCzU aW52MCAWR5 oPxmJ 3+rQ5KkW6V bgsBk NxRu0hOjmL N+t/Q gP+CKG1d51 R0aBK WeFmMsnJZs Ineiv HEwcC4j5H6 YjTJT fT0Ynn4vQJ zrVfl nbE139nGw1 nwUUw 3UcJCmvyii 4Cp1+ jEArcXLuA0 0UnJT mmUtBhoqrR zT0qQ vhftb4aQeF N3iGJ /Y6uGC48EA Dqhx5 X7qYA3hF+t 5H6LB ApxGC4wfeK IzkCc WMkrc2RjV7 XxEcf 7LGQrKrdeU bluUQ u1fzIlnsUD Yw0s7 /s2Y4MJQ1P ztDep avOOuo2u35 wTvjt FEDdpGMZvC Q3Tky itEBum5IcO KY88d gU2Gmp4d67 xopgs m9sHznnaoy iHrat mI2uHQtpUI cTpSK kB9FutNr6b k0av7 hRzNKBmJ4C gAFKl Znb+yr9UYM kxglG qvAAJzK9UN tg6YU 5sDToecM2y 2bkGI U0Z2MkNUcP 0PBat aOTxMmhCAV Haan5 +gijqRo5Q3 opIlY fgzaWptS3N Sp2Ux Yd8n65tRoX tnHPu GxupbhmNkv T9aDz bTkzkfY6ve ZyzH7 O5+0kL9okC aeoin vA10NKnvZc k/modesto oOXzgGb5+e fFsDi jKH5nONDli 0AHa7 wnIF1KialW xDfKr p3ldC9GYIk sAur7 p/e6Fzezo2 h3xn9 akk1EmzwRU 89j15 90anoP8Zv0 yWDq9 i+v+rA40Be g4joW biysRrRGvl qxgBS XRTkAkc7Th GbbN/ bnkAf+sdPW VsRri W3KkVBfb/q +LIvl 10zbqo+mGy iHpOD w7oVYlN/Ls qOM8l D1vxz3UmOd 44pIy N+aTv55nOV blIJt Ml2g3RxacA n6uUh kh6WPRMuYu PrVYP vVV5ar7hTD s97vo +HE/XFVS6X pRlO/ eig22JQMPi V5os1 pbOEaauuDv 7gfbX +04DGYyzE0 RVZqY xwR7Ka5kpj /IfeZ Ht2T7jsJZy yMxTE mpd26j0Z6E O5q4h prSXXe0pUO 8kJUa +gIVWMUJy4 8qpys lWnl1yzfc3 o6PVl e41Jh9ADHI Ftnz5 tiyRYz4EkT /VMeQ /7xw4cYSwm 3Pgv6 vHvYNkiiTy iD+rL lbGQQMxF3i POn35 m8Ei/SLIFk dE3dK STCpKnDtZZ ombBy fZQlVBwfZX HEKob MLzG+/wKIk MWdCm BiBPA6tdPz bQplb mRvYmoKMzI gMCBv YmoKPDwvTm FtZS9 TuAJqH8P4P nR5cG UvVHlwZTEv VHlwZ N8Go910Q3Q hc2VG k854D8EknC VzLVJ pnHJuM3FoS 29kaW 6gI0qruaIc c2lFb mNvZGluZz4 +CmVu GW9vmhnrHL AwIG9 xkmr2LA2BZ W1lL0 jkB3MqH5Gh dHlwZ O5DmGLnDN9 UeXBl I2MjanVlKd FzZUZ vbnQvSGVsd mV0aW KnWM7bdBhm dWUvR J0fu1Ntfjf vV2lu WW3wgMWtS4 9kaW5 mPi9QCK3yn 2JqCj FkOSPqb7Rw Cjw8L 05hbWUvSGV sdi9T lHC7uWVsI0 R5cGU vY6M7iEMgC m9udC 1ZIPDgOw3r dC9IZ Hj9AXDzV7A vRW5j u4ClgtyiJ9 luQW5 wmIBcR73co W5nPj 7QNL9kt9Ny CjI5I GRhm8ShDwe 8L05h bWUvSGVCby 9TdWJ 6pWLeF6J9s GUxL1 V6bOBcHx5a dC9CY POyMo2nlU6 IZWx2 HIAjD4AmRd 9sZC9 FbmNvZGluZ y9XaW 2ZlaRkAB0i b2Rpb mc+PgplbmR vYmoK NDAgMCBvYm oKPDw bY22bs7SEn GFjZS 6PFMIsH1LH cmF5L 1R5JdJ6nFG vSW1h I8NeZREoJ9 h0IDI 4N3XctZScj i9GbG M1PTSxU01i ZS9Ue FSwH0dEFaj lY3Qv X0tdaFjpAO gyL0J pdHNQZXJDb 21wb2 3pnkShYW8I ZW5nd GggMjg+PnN 0cmVh nJo8mZ3NQI EAAAD AaR1tGqkwc AAAAA WOXjy8T4oK CmVuZ SO3cfHhvUg lbmRv YmoKNDEgMC BvYmo IMVxoZ31hd 3JTcG FjZVsvSUND QmFzZ WQgMjQgMCB SXS9T lRD6hBXgV2 ltYWd xG5ppjCgvm CAyOS 7NkBp7LIAw Rmxhd GVEZWNvZGU vVHlw DZ3MD4LoMD N0L0R qX78uFPNzr m1zPD tuW35bsR2l cyAxO NUsA53tf8M zIDMv UHJlZGljdG 9yIDE 7L4PxvZEYZ XJDb2 6ui74kfeJl OD4+L 1dpZHRoIDE 4Mi9T IYXtinC2CF AwIFI hGF19WJSbv 2xhdG UxjOD7DE0U ZW5nd EfrKYE2AJ9 CaXRz MSKxC63fpG 9uZW5 0IDg+PnN0c mVhbQ x99x8xFIJE R9bHb +IkcybRuEZ ZGpq1 KVCYCZ4K33 RIQoy OE2sGHQkaD BGNAh tDHwNQ72OL +8Kqg WU2vofFyTT yGcMm AWVREVBRQU BAlEV gqrqRpemGR tEvfs y12oJr24vp Vd361 b3/e+sJPW/ M0UUP uwdMD0eUnh k0tVj E2NJH7eceq n/Xb9 fFpFeEJlfE Z1fce /io5//LAdr rAvRN gz81C/vsB3 wuMQv LZc21lJyOB 8+zvk cUW5yDzU2M t4SI2 gZmCzhjM4D 3Cdhx TI3I94DzaG hiuOM kKFFAiwNE1 qhuzi i4se3EYTDo giYTF LegzC2z4f+ Gpser K8dJxODwcW nOtoA 8nnRlKo9lL wdQdN nqEIPIfuMR yS2tZ UljQN9Gmkb 8qtPY wrysK/cGNm pseZq gI5Bz2ujdT 0GfDy Nq8YLoRctj N2saX nX/5gifx3l jhKlU MPQCQ0/QZI /q9l3 pERQqwA2L2 nkBkT yibDy4o8PZ V5hCJ p/GfNopf1N sTCaD EjkgPv/NRk T8l5l MYEahEBj8f 5w4XG ecHu8gEMui rbuvs 4sLbI3Hcep zh0Pk Vm61AX3Y/p oPsz3 SZSQSO4GPi AQlam phipZLBW3K IDBgO s3V//c3BYi hZuxF aKowLZO55Q QE5g1 zv/bGAJjlA Sr09o 8313r61w8O wUAgC 3Ns0jq0Rsi KutdW iC2806zgXu +bhvn B0Zz2uY6Ae MnuYN ARoKCTUVjx 1+Humaira Qlk8EzY5Nr 4+uWL XaN41g0nNN 21Qpg lAGX66+/9s l1RoM eTisgKiwiY Rrbh/ gZjPm5DqPe HjBki q8lrMABYag xhwcj rGLsBkL2TV u5/cT 7MaQkwlbLd PvUlE Wx6e7EXe2m KR2Tl /hhQYyEncc xHZs/ ZQoQIewwRM dwaBP cVcDV1o8CV bLzVP qOZyHKI1KG y/7J8 0MZxxJv49y cu5/R Cv6hvR6gM7 oSBBh UmWsMUeyXj E77Rw j3LPvNHach QcoGp CHFiL35Qtm 2plh8 RI/MImOGOp egsge ONaQ3oCE+R 09G53 SO0KzEsIUR Kbj1Y fg013WTO9F ZYdSI n14w73gcR/ gSUXP YCGAUWoP2N Pvfab AIHLPsl4rD JlxOU BUQwKQdo8w jwKK2 +n4xi4HPcD vXX2s Vr87MXTGbD 4+1gk d0DZisJ4KH asr2j 1S42LCPOut 9sYMJ hMGB+tTfcP 66g61 ppr5jxq5W2 0YhmC 1aaeMz3dXT Zdzim frzhFYvJ4p pHwgT nV3btr7V+E F3o/P THEJjopmzi ObRxQ xRlRvH0fTa viLz4 rOu/Cc6DJh 2vtqn gR2YP0kXYv FD8lX pefJFgzb8h oLVWu G0G4flTYzc 84qeY 02v4hwFl82 4zdjx WD6VuOXJgS PeD3o vrzfFzN2AQ TkQo/ fu4fO9qLFt 2lTcp 0HLBGRmBXi nKAXO pWLybWPV1W 6hz4G WpFFYK5xor fpkfL hOAEgOpXRt u1tAH 2nikwxRnmO mWVlD n1H4hvdMBG MDo6e yNiAqb3sGS FyA6x 2SUia+k5l0 HdXeU JDqJ/G78pf JlP0X isZjNAL7Q7 SCsCN dfe59InS6j i746Z dlX0zEMscr xy3gS 14kmvqDKXr YnZOD AbTxKwY4WI weF52 hkW2OQ6r6S 2VsD5 C313M4ehXR AEsfJ N2+EQKPBLq 2qhXn wgYE5bWcNf bEiIb myl63pYdJj /Ck4y znfxr+E4+q Yousuf+L rbxlIdVV/l jma3F Lprg2P68Qh MnOaD 1yth2oUNcK 76Dph qIY/pXEPcy XRGQX NCiR0BZKRu ysPxQ NapyPvhAMo lMfjZ yrX1Wnzt7d F2Zw4 aCWymiJcne PGGgE C67AB2HgmS FSEaE EZoIKSv/cq h/US/ vOvo4RBVew 4Hr7Q x0PIRRRdUP UV/hL Di20ULde5k DlR6S a2vvJOUo+5 REQQT tcbybc9IYM MIwsj suJDco0OYJ 88z3j a1+hFuU0Nr 6X5aV rA2PPPn6gy 6jn0a aXsMz9njLL JX++J wTfMgSRtIJ byJig ma20TKsbe2 PHzaB UA6KNKc9Jp wVld5 XlJn6lFiZj 5MR/7 Ccc4wJHaNM X53hM RYrbf75H4+ RU/7m u06MdVNOoO /lSRw VEKpJvxLV+ 0gJhO 93SbVMryw8 WX0m8 KK4g0e392e Tp5D+ HyEAhtstsw StBRI 1VXHF/6K+V d+tQD EKTYcFKkyt qzOdg 7rDIGrhD4S Rku0M EhyN3ic/uF PZdXH RqOZ0zVTQC y2vEM lwCkXGL+GD gAfoM 8P1jUHt5mX vp3vW ZcwfLIB3+N qdoiZ bxmTfLKutG j4ge3 8QyyutsCft 00cCT ZDv3fytfse mD3eP gDtgRX7Whx Abj6H 3Ipi7D8tot kzYEP dfLoe1rUAB bzt1y +hUiQmSWVU nfOhF Zh/df+3NyI YJyGV oAN7DfX1tE kW1HR IoO9JX1wLF d/MEp QV8JOENa6i eCKlM Dudb37mWAb ky0cn +3pZyw8kMh 0PfMT kOHfAci3xb 9Loww LucK6lqfd7 dTbaT 1GxJUls3Mh F412P fmIMPrq77g k22kW AeNW+gzoik /2R7y ShGRlfSKEd nhmCQ XJvn3Jn/CE V6R24 ukirwI/7Od Z/su7 rplXmabs1y bReMa aPmzwxA1Ka RRECr 02djonD9+6 UBiYg WjRO27/gsz CaOGL zhkZVGpj2v qfVlE UsAi1svKdA KAOjH TGdQTsCS7L sJ7tv C+HcposLaa TkXhZ pgnp+RWbD4 SCYZc 7KX+2oiorP bD2pP EtRNkyYnI5 7vP4r 1cRR4qwhDp ItLYJ AWRzbaJWDY hU88g DxP5k6cz/h EYT8a xJsm1GoyM9 n3BON LoC1KqzCma fxzDX zciCsa+2GQ a1Mft jaIx0WHO7m XaE46 hKWtgTLV02 reB2I 2/FWE1xgxo Y4vI2 vPJELngs6l +YIyc u2zp7E6Vuq bHbYB 3NtXTpYkR5 8VGOJ r9U5P55pnP B1U3p AgxKCQ+aFO SL1e8 TSD3o3BMW6 PIixC UFaF27sg08 q27E5 zD5F2Q37ha qalr6 s1cx4jdqCz 7urzI iZgiJERgtu ckI76 8sZWnWo31u rSyqn vu2HBvUY3F i+MbX qGx9lFyt14 EqLhi uEiOI2q2cq XnD0V hf1BjrYlld xYRE6 qxaFq0PE7m 8laf2 MJcmEYBdUp t46PB clWkReaMAp GHj56 ITWnNfXlEk uWdco AbImrK1GvJ MWLj5 JxyLOeRipz PHCRQ HEWIEOgSxa 4hiPS N3Q56g1ZX8 eGZOS G8mUXX0Krv uMIXt JnBrofmk7u 3DzKC Lm+TXdzYIx KQcAW mwOGPg0Ncb uP12/ dhGhkhxQyR 9Fjzt 1OVntfnu05 IV9cz tBdc2FY4SO 4kIt8 1jbzD7Wxpx /Fq1u U9Zm11SbNm c1GpT C1CZC6AKhs 4pcBM LuLgYaOUAN 3U0vE mai482RbdI 5zRIL E6nhXSR8bb 1t66K 0IGG3nC1XU twfKN MgdTMSc85+ jn6Jf SIlrrpO/04 roIol GVtao03R4t M6dEH BTVWHklklU KMBSV GNcd8gQMrx hoSaE GWJiViNm8H 5T1Ro 7iHVjO4sRR 7/dHk +WpuO9tPjJ OgSQ5 Vu4zpynQlX uOMki rLZLcoDnme wlBhu pF5JmFnV2V +hZxt rkzD7Uh1AQ lnljW yONnzFKY1F WXeyP nbAmWPmRVG l6lwv wBCTMNrXNF 4+PSE XELyBMjQgs cTouo mB2TsEDsn7 X1ycD rvLOXcfEDU aLueq x0ZnGaG0/1 yz1N9 pnUQQHVOzI fCFTR 0igVnIZg4q 9+jMA QtfTf5lwdK VdkNa ys51uPTBNY xpWyG pmI6PG/sYi W32NH S5GlAR0R6J w3SLQ dso00wU6c2 /LfeI KeByhQa+ol 6bzwx z05hK2Di2s TpOw9 w79RqC1nuu Hh/UA cVH3KLk5J5 cw8b1 Ain/tdZmGm tQ1v0 v9WWgJXtrL JaAOi V1aHgDt+nS x1E38 cU1YwiXMx2 jJS/G Cx1pZFpHAI ZuDqq gYrJf+GxE9 f7Y3G +ToyIXtP19 ipA7d HA1rtEsxEe PGHHz 9pF+1B5OC6 IUpu8 U9XBoo0dKc 0IuOy S/BHplocQZ gkqfC W0RIXTp9R2 NeQ39 zYUJtCZc3e JA2oM tAIhFsjj1Z iCsKl SOHfFfN1dj DUa1R wjEZjPe6FN T09qH 0spmv2ldrD auowE AxmK3WAeCu +UP pNuTSMHKkc i0Yl0 zf3ezn3tus ytSXO CYPmiU3MY6 WYgWj HtsrqjUP1p waXuv ZDmCjKlIwz cqU75 rbG192lEzk TW30E /nbYp4JYqH XrqhR fAxjRwoue2 Cd6aQ NlgwqAzxKy 8dNLH JKGkH9eppt m0jHP DKRl1hnxUI cRGdS r8BpPPpdUw 6/7vc wusPLNkpEz /3xLs hfR7yCkIsr VNCYP uPuc36mQsX H9qQe EkFRxm1iHQ 3Fngj dnDwN8z+9E fXcwP yn40iQKuDR k1v0y vXJbv5b/3c AVIxy +t1UlwD0Ch QVtx5 eIiTTlzjif eA0Kt RvNBnmDOS4 rNv9j 3vsJ3wTqh9 cZcaX XWV/85jFxW MjwNY oZ/QQJbvFe JIhO4 ioDGz809sP PNUbz LOPhik4jBk dOh4M ePkpEdj53l kpTU0 l4iJPFfTNF DcYDz YzG3OO4ozB NGDfw cD/j62QzSX d/iEV SVw17V81+h cmO6C e2wCvofCxX 6TqTC W8eS3wZvIK VB3jD 1FRRYhBRF9 boBk8 Q74zcJVGE2 ooG6j QMbHplanwE Qn+Oi u7o9xkm869 kKSrs IWElx0GbsC 7urqF AW+ZiPzEJj gBnPp dW1vG4RhWQ OG36j BzqxoP5F7T XtdIP n5YJSaZ0dv ugU9u +9E/1xrOUj 6ZRfe 06J4ra7mj5 /NL7S zwSzB9ULxD ykam1 m7Af2VI/ZB DIEKd dwij6U/Rpy IHbqX 2mihP5OMxi tqRlh 5/Hh8/yZta VX9e4 b3eRegSMRz 87xYf a/D8Br3A7y +V++j Tp3tZDlEZT V479J pFwuGBdW6R MBbdz X9eyutm1MK 3OWc0 KgfHerw5r3 TLBm9 7H42tgi9c2 RfqFl 1OE3hS9j/l FTX+H SB2qT17w7Q S73hf VoN13pViKF 2A0s/ TrgjH9CGuG VMWOm Va8sYwaNE8 xHRK2 pfrujgLm7q PSU1T 9f792LiybN N/ECX qq72lPF+Wl SUoEs SMTqntHqzb dTfP/ XEHw/87Qgo uqiuD HEsbh5D4mn qX2kV 6d5vFXxlON 6X+8K j5zECs0yc2 I7b9x 0OJBS3EX2C tgZNC qw738pqaXW H9RaR Q3PolMlEWg Sclei sml8GsCk/+ haRt4 fkUd/8CObT gcjGi hGlGw1fwfk L2N8E uoaNN8QtCJ HO5Lx T0A8GTrftI JjFwH UIAspuaDCJ AspkS 07ym9L/t4i 8Lpny gQomgi16X3 ua36y e/w+W8EbdC mVuZH D8suJiyCnv bmRvY moKMzQgMCB vYmoK WYppL1FxhW A8PC9 VO7AwZP6io GFyZW 0dsE7KMYBq dWUvS yBmYWxzZS9 DUyAy MyAwIFI+Pi 9Db25 1ES35k5ohF iAwIF IgNDIgMCBS IDEzI AJcJo2aQEh wZS9Q HKbgZ0Lec2 91cmN aztp9I7Ria G9yU3 PaV0S4WJ5I ZWZhd Kn9ZjlRQUE zIDAg Uj4+L1Byb2 NTZXQ oZr5WANQfK 1RleH DuK3fhKZye QiAvS A6eU3MORX4 JbWFn XCglL4Maeb Q8PC9 DZUQkTGZ1E DAgUi 2MRYd8KLNv IDAgU v8BMG4tOPN xIDAg Cw9PdBAfTJ MyIDA fQj1FfBCxN SAwIF I+Xe7FW2Ef ZWN0P DwvdGcxNDA xMiA0 MyAwIFIvaW 0xNDA mIUT6EQAoM FI+Pj 4+N1LslqHh dCAyM SAwIFIvTWV kaWFC b9pbRWDgXW YxMiA 8WIAtRd1RG W5kb2 JqCjQzIDAg b2JqC sn5B7bcj3T wPDwv Wn4QreWcp3 BhcmV rZ4yuU2DkU 0lDQ0 Bqk8QpWVQ9 IDAgU l0+Nf5TbLZ 0eXBl B6Zssc6wAv lsdGV hH2FcSDIaP GVjb2 MmE6E4gTVt WE9ia jQtdJ6UYMB yaXhb MSAwIDAgMS AwIDB iC4Tfjh5Hb XBlID NwDvYca1Wf Y2VzP LlkJPIyV4V ldFsv SGOEV6MfnF QvSW1 jF8HZL8hsF WdlQi 9JbWFnZUld L1hPY cqrT6Y0DM9 pbTE0 MDEwIDQxID AgUj4 +Vf5cNJCwD 3RoID F3R5SXr4aq MCAwI AR4YjVcFH5 +PnN0 iuRpxXk2eN PPzDU 9OGL2LENEW wARHw LPCmVuZHN0 cmVhb QplbmRvYmo KNDIg MCBvYmoKPD wvRml esHJkZ5KtY XRlRG Clz7DnD8dj bmd0a QArJMb1Jc7 zdHJl SM7QoKb5Yb lv4zg Fce8kFcd+O EBbJn Ie3czWFr5W 5NrYs 1LW6QPBg6q ttA63 ijgc47rLHM R9SLG sbBIkFiWx7 vqqSF rTfmrYMzQE vwbRL FBrydt9qa1 R4nma V36bWmPENl RJov3 7G61deHl3K zmaa1 l8pV4XQSwU u5xrS DhpV96ff2/ sMtHg 6fxJzkPakO imaSG EtXn05+D28 R+/Xv ylzf/1SdOm 8097T Eyiu/a78MH wg0xi qPHnUYHH7h 3g2MQ m/FvDaI+Nq 2NPsB j7flLE+YU2 NFxPG 7Tp5aB+Angel Ltg3b amSwdSTSvX M5/Od Bh8JXWmtDY 4Uu0y RfszSrxrds Gfg0r XTBBP8K7y0 ePhLd TMeTy+l8Pn 2UAt3 c30++wJ+Q9 XN1e3 Y1vbi3jpMg dl/b/ KTU9hcOYJM 2hgeQ c90PWofN0C HRJas IPvR9e3dQV /fhOr m/bMtHszt1 jHUbK xzcEUYjTGz cbDuE +gkZ2Bh4nN 5oBji LQty2+soh5 vkR8X Rq7CkOYIs2 j5Id2 2QBuAzbdVj efauu gSGaWBNJ6a b6sZd EN/dXY+APs syv7+ /aoMjhENuL 1+zK+ Welm+MQeT1 pV89D QgK7uks4M9 ZuUc1 yuF/7sLFH2 BwZyE IPvMV7dIqX yfXs6 tt31gi5iKb a5+mO eVkID5TXXC xbaJD XoPKzYJkcX k+auU NjJQ42PCT3 GLlQj TzgZp4BP3d 9yLYA atBSxh/N2W geRKx XioI7aSuVU SKz+1 sZoi05Bs4d qoN11 5tnwgNg0dE r6JZj AChvoEAL1Y Lxi4j VvYefxDkN4 kwZPw VLeCGo6/WG 5oEyJ YifRFkTgWL Ygwge Q5K40Wvo+G v5qqS 7gZaA+YrJi 3jJZM OwrZPiDoZm QrKms Dasr2UN6GF kIqWf LzQHDXQZmk +7WJ4 Vuk4bo5nR9 ASalF qpnIFEy+bQ xq5me wweerTK2el bbkYJ 01kZ9EosFQ I/Jtp DAfSujqV88 fq3NK Aobme0fwo1 ymj1P nKT03zR+P2 iGlqm OzQhSvXWcL QhEVx SdJz0ddm6Y a5/ww efJe6JxSOI JH5Ly 90vtlOrCYZ h6Bbx TRl8MZFEK9 G7a6H 0xwv1TJO5G yVxVo J7hokowxim 4/IGf 1fuoaVjaFS GwMwg RIs0G/wLHL GhEy2 xBqHLCU8e/ g+1NZ B+3s0MDdvU R/49f eAST75ZXT9 8GmJP i6URHqZrtO kX8EQ ZbdPdCgTXU KdM4h XWeKST9c0L NDGnE rtRTtvCugM ToRoh OCuGv7fdax 3aFea IsCebVRuW9 uSigv SHGZcy2q4g 6aH/j xaPplDiD5F 2WbGr 92slhc3SOV 0TXkG SGOwrBsK5t ExaE8 vwdBdmEOsg sZSpC mgLw6zHW2D 8SQTU 1tsVgj8K+T SHBVq E9ztKfc46a 5oUeX 2HVZd+EiZx BRZ7o NhQygAJkIP MI0Ag SpIyrF5IR1 VgBDb RCTCCFvL/z cmzd7 62dz6pnAYK g2+3D 54sn82jH5r z0W83 j5yi7qwAOY nSCQF djTZhjqhtQ TuP4M zdp72KEL7B xl5n9 edrlrLDEIw TGYxF zaI0Lwg5PX yNNmt B14IBTAVKZ Wxe7R 964GFDljo9 N2nel jhYxcGTaEA Cn8Yy Z+himURBTG XG0cw MkjV2gooh7 GNyx3 YfqpvxC23c bRbbH gad5EotYM5 Ob25O DmcuATbPza kGF8E taJj+5u2tL x8nT9 Hv4BM0utLc VnsuD DZJRBUysH5 44f1i EK/qrRWQ0F F4zIr 0qWxqj/FUX kyD1V zzINRw0FVH lbJHR eaHbMSZdkN bC0AQ ozJg6zO7j9 zlWef c2LTMmYAWF o6+TO /7Bo3ZTUvd 07EPk tlzIVbdNhn eW1sX 5Na0TaWjjg YpoEH 4Wy7XZG9w2 0S7cb hCwjbF7QtQ nLKIp j/oImSdIsG 2z01p VWjoDGosVp IrDvk 8X2iPQw44a JdvIo eShYDEIoRl 3PJz3 U9E1gaTZZH sT1MF 4xLoQRj3ZO 9jkX/ SHHLBqZCTQ xr6NR TzhZJePQKV MqkUX g70CFQ6eoJ vd0Zn D8YTwqkyFt xlDV6 IyxU9XyBbf FA13C yqBUQi1vzl WADkH 5T/0BWfm// 3d9PT 7i55LXDwT/ sWScw oMJCbF9cJo /yg5t P0eKtjgK26 8Didz IZ108CPJlK 8TEiZ Ovq0kUBN5A kLjWQ 0ZoUlZ0slV 6W8R0 Feg9ZC+j5K qr2VM kbyoCrlead QMJyz gtWQKtwGoR RvGQC CUlWwo+3Eh sZ+mueller A9X04s/LyG UUYzX v1i4OLcNNK 2spZ8 S5SsHlfO/r UIYq8 ZyPULgv08w H63RM B67PTqMlnw pE7UL 4YDH7izYHB PvoiT NKJhkMsoKL dDt+K zZRfZDeKem 5pW7f kQbI0dzMMO JbiTH XFPJ6Cqjog 1y3HQ cVZD2Vlgzx oKEgM eHR8nWvEI2 Z/mX1 41HS36C++t l20dz qR3XqJ6tgm 8FTCw yvLQQOklwj qo05T Sn7nNTFDSy WzpbO NA9FwAfCq0 qyfxn 4bFcQCqUSd ZwBpG 3R3decURAH sYlcH V1x+/aA7kF N9oE1 uBlmvIUbj9 3G6td ZH61WFfCF2 7bCOI RM8CMPT1MT C/aDk NpVmOe8Bp4 t+KKF sNvpHNYbI+ ICnb5 fb6IYoy8YA Jr96F 3wlFtho2kH riukD VUxKxmyTjE Nr86k S8Ps3Y+77G jEZBd G0Dwe3fi9Y aKxaP Tsg2bfcMm8 FAVJD tjJ+aOOOzE I+eMl shqAwRReVt EUW2e 4lD30TfHrB laOsI GEH8CTW22u XarnE I0A1edJdfW Hy1Dt oToQK7PXuQ sieEN Newspaper Columnist+esvJGZt dvQSL NI+A1fVE6b zqU5p EVfCsRb+of jkjVU 5C5xcmCf/W ram8q 3r4FjCuebF mh3JK 9YOcA0bcji XycHQ pT6x/VLfUI 0Dxsi S+SrY9HR+8 GNXVs +hbGftRHwQ XKv8O njCxinunGn XFUol syqHuervfM YgDKh Z2gsfPZumh rqj4S 0pmHGVcQp2 BGPtF 4vi5DSIwcB lSG1y ZWpqXsVBhF AZbeF IJdTCbgfag +lTL7 JgZS4VYn9r Rj/fv dq2Qck8oI4 T7teZ NMFhG3AZ+F TxoxD TH6TOvG2ab iFvCN Xv6ukhqjyT hzuv/ +mAVA0NaVa RXjq5 QuC50S9LDQ 3dNcI J8AzY87f3l o/Dalton yegM9F9evt +HRWs mv9qMP3X68 /HAR2 Vh6sTz+6vx wEdhQ xDHDe84G/I IaEdL qZuEdJflUN CKhcL mkiCxSlaDy 5dCir /HhP/istCI HvIIl Heg8ErNa9Y +KJZL f8GC95t31/ hsUBR uMX1og4F4q 1Uhy1 nyrj20aafG S39tG hopNsFWO/j sliea SWyiaW674D 837AC PxWJ08ae6Y +WdSF 1SjnGu4T58 OI1jl oUSBZ6yDBR UnUz2 ceqgAgIRTh IdFbh NSF2r2x6/w NcIOd UHfZsLQA8t mVhbQ plbmRvYmoK NDQgM CBvYmoKPDw vQ29s n7HNnOXrFM 9EZXZ sN0XOecP1G 1N1Yn O6eDShXY1b Z2UvS IHqN0v9AAD 5L0Zp qYOeiw2TrI F0ZUR bK59qPD8Ph XBlL1 qQTwwdT1Tj V2lkd RbdVPvuJ8O pdHNQ GGUXv52nl9 5lbnQ rXD6RGK4xp GggMj g+EaP8ftPh bQp4n D0VODVAADS CoP6p ZwwfoAAAAA AAHgb 3V5zXUzHbG HN0cm VhbQplbmRv YmoKN DUgMCBvYmo KPDwv X65tt1QYbI FjZVs vSUNDQmFzZ WQgMj PpROSKUB6Z dWJ0e RNmG1eeVYe lL0hl aWdodCAyOS 9GaWx 0ZXIvRmxhd GVEZW NvZGUvVHlw ZS9YT 0BsJTE4K9K lY29k GHBjai6zIN wvQ29 myF5ibpNtA DIvQ2 9eu4PhGSYr UHJlZ SestM5tAEP 1L0Jp dHNQZXJDb2 1wb25 lbnQgOD4+L 1dpZH WzYOJ8Sh1K TWFza kJ7CQUjUQN vSW50 EVMmd7owaB UgdHJ 0QT5NYR9ww GggND Z8FX9RiNCe UGVyQ 38mcE9wYU3 0IDg+ JgC8qgGalR p42u2 gNKVPI4pYh +Ikcy bRuEZZGpq1 ZXPBJ K5T82WWLma KK5rR OBpiNBGNAh oCIqB A03TT+8Kqg IA2gu yLgAKyGcMm AWVRE VBRQUBAlEV gqrqR pemGRtEvfs d33tH z33vhKx204 b3/e+ sJPW/M0UUP yvnHZ 9zEbac8zHv F5MSV 8oevrn/Xb9 fFpFe BXlqOZ9pbq /io5/ /LAdrrAvRN gz81C /nzR5skNFz TNz01 aZlXT8+zvk aRF8s XwY2On0GS8 kSiPx rdN1Y5Wtat LP7V9 7BbmFhiuOM kKFFA tkGZ6kkhnq y4vf7 XSFCngiYTF OkllY 1j3r+Gpser D4bDp KMwzXnOtoA 1lvEz Kf5fVhoDnI nqEIP OeaNBlF9qB QtzQJ 2Mcpt9fbEX wrysK /cGNmpseZq aV7Xa 8vtjA4GqRf Tu5GX uIivnN7ovE nX/6p xeg3occCcQ MPQCQ 0/QZI/q9l3 kBFCn dI6M1tiQsX nmiNh 5z6NMJ0hXD p/MlP rzq8VtWAqD EjkgP v/NSjR0n9z THOjw PQl2n5l9XZ tdLp4 nNWbxrbuvs 5eNrY 7Qhvtei5Mr Qu51W T9N/poPsz3 GHJGV G7NOgFUtgo puhdQ DCY0FMBUnF s3V// k0GVhvKukS hHayE UQ73PIH9e9 zv/bG JXysJRu48t 7219x 83e8KzGHrW 5Ev9g g6RomApeyZ kI483 9giYu+bhvn Q4Nj7 qM2XtTagAI ARoKC TUVjx1+Humaira Cna6O dY6Yi4+uWL EaH65 t1pYF34Qvx lAGX6 6+/3ug1TcI eTisg KiwiYRrbh/ yHrXm 5IkUjHjBki d2vrQ YEMczxhwcj aCIgU oX5LGi5/cT 7MaQk wlbLdPvUlE Tn9f4 TGj7iGA4Dq /hhQY yEnccxHZs/ ZQoQI ewwRMdwaBP rIpXE 6z6UYkImLN gFFcK SX3YKy/7J8 7KYmg Fl97cft7/R Xi8if V7mW6tGZZv UmWsM LbgTqJ34Jv z3QWp COsidQcoGp ZNCnG 75Xgj3wzp4 RI/NM mOGOpegsge HWsP3 uWT+R09G53 SE1Lr SkYDDHrx7A vu806 AHR7DWHgUD u85r8 1nzS/gSUXP FLCRS YcR7LOyeok ZSIIZ dl2kZZekSL WDBuE Vul4rqqMB7 +b7wv 3OIuIhHT5z Zm08N RMIsN4+1gk v0HSz lM7IOkiy5x 7T92U WFUuk7uBDQ hMGB+ lFaxJ78m66 lbb3w tn0F34IscY 0jrhB r5hYNHmqdt hafcG VkY8rlRfqR nD5ex r1U+EF3o/P THEJj opmziObRxQ nYpMv X2mQpnmMj0 rOu/C p4TQo9ogqb kS8XV 3mAYeWO4hN mcqXU nwp7lqURAl P5Q0q pRQfi54twC 04k3h pSu499ezaz WZ2Hi ULSpKSaY2u gkzjQ qS9IYCnFp/ jk4bM 5bVNq5sSsz 0HLBG RmBXinKAXO vVZva XCZ3H2ju9Q OaROO O5xygofsbQ hOAEg AyZJto9gGM 2nikw xRnmOmWVlD x3A0k ooWPTPUx6k kYtGi z4lWSBsK3d 2SUia +h8i9NoUfA JDqJ/ Y76veIlK9L tcEgD JV7B5FKxMB rwa68 JdT0bn606O ojM2x RWjgede6lL 14kmv qDKXrYnZOD FmIwS gG4VSkcU38 fdT0E T9b1D0UnU6 A803T 3doMIAEsfJ N2+EQ JOZEi5hmQb uoEY7 wLwQdbEiIb tqq30 sStDw/Ck4y znfxr +E4+qALm+L rbxlI dVV/ljma3F Ywdi8 G04CmGhXvQ 7wwh1 tDTzP40Wkj qIY/p XEPcyXRGQX JQkU3 UFXUtysPxQ NapyP vhAMolMfjZ fjE5U cxt8aS3Fa6 aCWym iJcnePGGgE Z64MM 1SdjSFSEaE EZoIK Sv/cqh/US/ yUkn8 DPNjd6Rg7K b8OAD UKaPGUV/hL Pt80A Hdi6eZkK0Z h6akY ERv+5REQQT mzhgv q1CBYNRaup nyJOj k3MZD62n5i a1+cQ vL5Zr7Y7mF qX5SI Bb5yz6qq1j oVdNm 4giDDJX++J wTfMg SRtIJbyJig xg67U Ywff0XIdkQ KQ9YI Eu5XteTps4 HrQs7 rOvKz5VF/7 Cqh3s PPtWVR82qW MToxc 71Q0+RU/7m m99Td GPLuP/lSRw VEKpJ vxLV+0gJhO 64NzO Lxmi1IQ0n5 XA0f2 e679hIl7Y+ HyEAh tstswStBRI 1VXHF /6K+Vd+tQD EKTYc FKkytqzOdg 2rTYH icH4EGed7L KduP6 gn/uFPZdXH XwLB6 zEUBCf5vAY lwCkX GL+GDgAfoM 6X0jY Yg0mShy1jI ZcwfL IB3+NqdoiZ bxmTf XAqaGz1vg9 8Qyyu zpPct28zON JTr9o unhgjsZ2eG gUfnF A1VakOww1M 1Jer8 B4uwugzCTN tdZrd 4yCNOyns0g +hUiQ mSWVUnfOhF Zh/df +3NyIYJyGV zEY4W gP3hEcT4EN IgY8P U2hPZd/MEp DU2JL BRn6egQGuQ Ckau3 8qFAmkj8co +0jNo q9vTz3NeNA hRAcR rd6ja2Hpmx LrkQ0 zbjm7oPetW 1UgLN ss5MtM661Q klNZL lc35og24lZ AeNW+ gzoik/2R7y ShGRl fSKEdnhmCQ XIgu5 Sami/FUF4T92 ukirw I/7OdZ/su7 jiaOg bry3blBiGz hIijz rT8BzHGQDe 56mdd nY6+6UBiYg WjRO2 7/gszCaOGL qozND Ggl5gckOeO XkCu6 poKcVKAOjH JCcAR zNT1XzC3xi C+Hcp osLaaTkXhZ pgnp+ MNpC4JNROx 7KX+2 bvpmAgN1gN EtRNk cTpT55hW3a 0tXZ7 pbzFyItLYJ AWRzb yIPUDmT07a DzL1u 3bw/hEYT8a mRic4 XnhO6n5XOK YjX4K maYbbfxzDX zciCs a+7FCv7Kge raOt2 PVG5aSsZ38 kCVqa NUA41ihK6B 2/FREDDIE 8mgsjN5tL2 oPRSH gib7f+YIyc w5xh7 U3WckfIsIL 5XwCR oEiJ87RDYB d1Z1R 78vjPI9K8x AgxKC Q+nWYRF4x7 MCI5o 2BOA8DDfnY ZBaV1 7kj42z83X2 cL4P3 O04tazpfe1 s2cv3 qbtQc4zioC iZgiJ FPlijltG14 8dRFl We14goMobd sv5UV sRF5Ei+MbX tQz6q Ael58KaJzr tTvXC 5t0hbHwE4A kh0Pa iIjkjxYRE6 sovKq 6OL3o4dqj4 MJcmE YQrVpn47GD clWkR wxLKxQLk38 ITWnN fXlEkuWdco KoFql A6CbGIASg9 JxyLO eRipzPHCRQ HEWIE RcBxp8omOL X7R29 b9QU7sTWRO X3vND X8GlmtBTEh FjYnc uhg5u7PhDF Lm+TX dzYIxKQcAW bwMBD u6YvxuS70/ dhGhk kuPrR6Pnhw 4WIvk fxs31RC5wg nPrr8 PJ3BH0uUg7 7npfT 0Kssw/Fq1u Y6Hr8 4VvMot6ZuO Y3NCR 9SXvg8zrKB LuLgY mMWWE9V8oI ckf48 9RwcK2wIQQ E8jyZ AQ1mj8x29A 2XIX1 kQ4RJlguKO KhzAP Rn10+jn6Jf SIlrr pO/04roIol KFlnh 55I3pX8bYT BTVWH klklUKMBSV HAju0 hCJxohoSaE HFGhI vAp9Q2H8Eh 6wWIx I6bBJ7/dHk +RejR 4lOgWIsCY1 Ve6nc gbPdCuOMki rLZLc oDnmewlBhu yQ8We VlC2Y+hZxt cbeY1 Hj7IDwhmvX aLIdv OIP1YWWymA nbAmW SeGZDt1ota wBCTM NrXNF4+PSE XELyB MjQgscTouo rT6Fh KEwi5W9ptH rvLOX cfEDUaLueq e2XqZ dO5/1yz1N9 pnUQQ HVOzIfCFTR 9hhCp FPi3s9+jMA OhiBl 9fxtMVdkNa as97o HXRZPxpWyG pmI6P G/kBfH33MQ Z5ThN J0Q4Ru6BUH abg84 yE3p1/LfeI KeByh Qa+jb1dwgz y38sZ 9Ck5bQxMw2 c74Il R9trmPk/UA eVK3J Qt9P3pj2f5 Ain/t dPfUvzB2h1 f3KSw MVsrSJaAOi G5rHp Jz+wYn8P45 sU1Rd zSHb2vQS/G Hi6gP DqXTQZuDqq gYrJf +JhG4f0T5N +TdaW PxT45zyC0t AK2se HvbMgPGHHz 9pF+1 V5IP8LHni8 Z5TLw q5qEh0SdYz S/BHp locQZgkqfC J6OFE Ei3V3XqZ69 rFYLd GQb1nNK4yL vXTsF elh3BvXyYo LAAkI cA3rzJMv7Q xnXIy Yx5LWZ62xS 8tdnd 1wjuHauowE BusE4 DIgBmUK+UP pNuTS UUBctr4Ry0 or6wr e6uocbsXEZ GNUry U6QK3VSoYq Dbdgn yLR0vakPeo ZDmCj VkMtfkrR09 ziG19 4zXtmWF92F /lgDr 5ZFwJXrqhR fAxjR ielw5Tt8pI Nlgwq BocPv5lFIG QWWsT 4iiurc5iPV XJWm4 eijDHcRGdS m7LzS OtcCm6/7vc wusPL NkpEz/3xLs tqA3y NySqmVNCYP zVge8 3wNkUZ5gSd HgDEw k1pML6Gslz iuEjJ 5h+9EfXcwP mm46b AAbEKk8m6a kUBcf 9i/3cAVIxy +r0Bd gF0KgFCml1 eIiTT ioiasnC9Nk RvNBn iHEA8fVa3p 2trQ0 dWnd6vVqqC XWV/8 5jFxWMjwNY oZ/QQ JbvFeJIhO4 lcVHi 961tLPNUbz ANPld w4xUlaKz7V rAsoG eu15tjwIE7 t8hJS WpOFZDcYDz ZaG9I Y0xmLMURho cD/r9 2BsFUd/iEV VMv87 N77+hcmO6C x6vNw mfHzZ3StBM H3tD8 zIkCQPH5vQ 6RBVN iJLN4joOb8 Y64gn SJGK7yiF2n QMbHp lanwEQn+Oi o8f7w gz628gIXef JECkx 0OawY1lxsA AW+Zi PzEJjgBnPp rU8eS 1AbGUQZ65w Ommrk Q1L4IYewIZ z9KKA vS6brgeL2q +9E/1 nxLNk3RRuq 32R9f g8ls6/NL7S sbUdS 1LNwWlikn3 t2Uc5 NN/ZBDIEKd dwij6 U/RpyIHbqX 8ezfP 4WApjtqRlh 5/Hh8 /oAhuDW9p0 t5aPw nLPPg03sFh a/Z1D r5Z9f+V++j Zm2xT XjQOVO323P dQljI MqA9HXZstk D2vsi ec5LW5KVs3 XfvAf qb2x9RDTa1 0Z11q bb0j3BrcYp 9DX4m Z6w/lFTX+H RU7oR 99f4IQ01lr SuE73 eQbON4Z5k/ ItfeO 0WOgFVMWOm Pv8zV taKU9kQEC6 lralt eQn1eWBW1E 5a867 DmpxFN/ECX iv97w AI+WlSUoEs SMTqn tHqzbdTfP/ XEHw/ 87QgouqiuD GCcll 0M3aisG5iV 9s4nX GdtRQ9T+8K q7tVD w6uw6S9e4e 6VVTY 3CT7OcoXVI mi423 myrEKT5GkO V3Xcq HoISlSclei xjp3I bGt/+haRt4 fkUd/ 8CObTgcjGi oHgOn 4hhqvV6N5F mazQP 0RlSHXC5Zv F5O2B DwffVJjFwH UIAsp uaDCJAspkS 07ym9 L/l8d2Pgyh oDnna w44J3nx30m e/w+W 8EbdCmVuZH N0cmV hbQplbmRvY moKMz UgMCBvYmoK PDwvR 8JvzQT5TX9 TL1Ry XG2kfABhFT 5jeS9 JIHRydWUvS yBmYW nfTZ8OXyYp MyAwI FI+Gb1Mj77 0ZW50 l7izHXLwDf A0NiA wIFIgMyAwI FJdL1 P3tRPqUZTf ZS9SZ XNvdXJjZXM 8PC9D l3dbjqKkZD NlPDw vRGVmYXVsd FJHQi AyMyAwIFI+ Pi9Qc h6oK4W0OKn vUERG GP2BTQe5XS 9JbWF zXFAiG3jbH WdlQy MaJH9oO7QH XS9Gb 250PDwvSGV CbyAy OSAwIFIvWG kyIDE oLSVQL2zlc HYgMz BhPOJGG8ok T2IgM zEgMCBSPj4 vWE9i tjMzqRa0N2 ltMTQ wMTMgNDUgM CBSL3 RnMTQwMTUg NDcgM CBSPj4+Pi9 QYXJl bnQgMjEgMC BSL01 sNVljJo12G zAgMC T6SXIuEbbv XT4+C rRxTY9ggcj 0NyAw KE4izvb4FM 9Hcm9 2cLh7D8MjA HJhbn NwYXJlbmN5 L0NTW b2YJ7DHLQM lZCAy NCAwIFJdPj 4vU3V jbHqfSK9Wr 3JtL0 XgkJFcfq5D bGF0Z ZNuN29oJW5 UeXBl R3cMPwdnX9 QvTWF 6wip6AfDxZ CAwID UwGZKvSO0X b3JtV IoxVWUcQ3Z lc291 pbUpcdx3K0 Byb2N QFKPyM7WJL i9UZX z3Q0ivVSkx Qy9Jb WFnZUIvSW1 hZ2VJ NR3LB7WyKG N0PDw mnN2vIAMoG yA0NS AwIFI+Pj4+ L0xlb pd0hSBmKF7 CQm94 WzAgMCAxOD IgMjl dXc9lyJBeI W0KeJ uFx0g6NJQb NFZwy CqKLEfV7qb lbmRz kUKhEC9PYW 5kb2J jGlI0LOIsz 2JqCj k6N3NrqDAm ci9Gb XY9LDFmR02 kZS9M II3pjAgoKB AyMj4 +h7MlIOSgV nic3T 9kn6y3nb/n V7Dqa o5voevWwCv c3Qfb 3ogcnF3zqt M7db4 PjARLvFCkI lJJvL 9+GyAJgqQo EZCTy j7FwfSnMl7 +d6MB G8ZnA/vEQP CXBIY ckT0pBkm19 CDwfW A6Za0T2MhB MUap8 ccv7Gn+LDY s5Bqe L2kIBwws3E Rx+WQ gE4l/m4Vxf ksvUw O+wJfM51Uh FpiWZ SOEjafVf5/ cTf7t t9P/MZ7+8o thXD/ 90prECkzPe ZN5MP xBVkCC/snY iizbt GDGvmniLwZ GrWk8 E/n9ngpWWE 0m+al yQmvlUYn5P hcdN5 CrWm9d3L7B SkYi0 5eg6aXq6iM TMMvC NtNel55lI+ kmq97 f0Xk0C+Pq7 RVNcr zIT36vNNj/ fTG6v R76pe1BpK8 /PIxu 4B/W3E376O h8cX/ od5cbViqI5 vdTWM 0JXYUxPcAB 5Onz2 FfsOH2gKWt Vm8c4 hFZWg9s8cL yjh8t 9+etqA0uGk LA0g3 wQ5BeYCKnN O4SOJ Z7rV/R6PTU IMCsE so0RQuir8R Xi8dR v3Zh6ZJs/F dPRdR MEd9KDr+X9 n9UrT EsSf6nY6my y8SiM 1y7cFeU4uB vT+OF +ubgzrCj1v q7plf zn6fgaOeJe R/uX5 2OpxY9vche ESb1n abbL+HrMNM 45ts4 JXfsifzU3A TnJaD c7go2Y3Kth 45Lh+ 1SUTIrB9CM KzLiN KjCvbKag1k y8HY/ 1AofHY9z0B gHXw8 eUx2gTMk4u wSNbH pddRY9zAnP vzOn5 U7Si/Usr2H fMzLW ICO3+zRLW5 3r0tI +yMcT5tf+q gYmD1 ryuabuET/y 0jIQr xlpp7WeXkc csTfI wSjLp/Us0h wei2l +vwzyShkTJ C3drX PBXo9UUd3Q k+vbr LilnziDA8g pCAjq XDC3E4nKOK KWf5J 1zHGfM4HZh BkxzY BG6Py91Dl8 9NVx0 HmiRcJuk6c Qr4Gz R6BJBW3Lzs V5UTg Dekr9oH6+w fZPoM eZSI8VcpKI Y+XVM b3x7LOOxkk otDeN ckHS8l/p3Y RIuqM woXE4IzBhI n4fi1 XTTUb6Kh5r 25Z1Z KOZnMwS2CW E8HAR eSY1S+Albf 88IiG J9P/CqEYj/ LSj38 KArBh7vjGa 24CPs GmcwE/zgur vkS3/ NolkUijVfp Um2jf NBenE9X06R YwF+E +2y18VMxQa BZCQI gYVvBY3mPa zMwIi fu3DNsMt2+ D82lg D6q/F3IwEJ cMW/y L63jAO6ARP KV2fY NzGHgPnQr8 aUITg HU4vkNhWtC fgpK/ DJ7uU3f/KH FWp8T GQ5B06CdK7 XBoI3 Gqg6vIizua LZVk1 lxcA0pYgSF UFPhi yj9cBVWKvf 6WHa5 n3LQhcQhD3 B2Ycr 2kj3ndjjBL gKPD3 IFL8MOVPTm ykWjI XqqPxME1Zh Phcux 0Yekz/+F/C xCAD1 AlhO+V3MMH W8Xix aMDvjZdiOi RB85e vCbo+XYAM7 fOJpA c0EwrUNcm4 8fWp0 xkuwMctFiM 0ETAd 0zj3quox0A iR7GV j+E+P05KVw dxv+p aVW9R2C1Ev LWfUI kqcqetgBbI AS9g7 s39jB6Sq0C oaLKF OMF2e88EbW 0gwEO UJxdcJG448 8kFlt hA7FCrCiqn YZLmI ptK3cFhvGh Cx7qL i6WWfEs7Yu WIqCG tbBx8qLYfJ 2w7Id OhB7tQfeVD sRSB0 cNK7i80kwZ cjqoa HFSB5OTQb8 Ooclz /zR1YMNM1p aseEV AhHT/pWHPN tVuPm +sdLfK1Thh 3ucCD vJ1Liu7XGN GS6Dt gpepZXvh43 MlXWQ tIHzWcbK2y neVG8 eSHPwSjl2f Am0B0 WHxvnC2LYn DJdA+ 8jEKNDGujN c1nAM LK3tHGHvZJ htlOU 635L26TFdb PrCfz xuaMbyG/Z6 HMcJz TIlHffARoG OW4M1 agS0aocgNp 6/CkV bxL5EpkhuN BYJ8I sWJJ7C0ndT DJcVY OrLUB2Tjsz 45nrS rf9ozbHxM+ 0lLRP KJArfPRMbh cm3iO mvXENHQq7M L8TrM FlESfhOhcg QOukF JMADX7xrlA uRCK5 pldrSJINwZ /f32D aIZdhn34ME spV9X abiuTAbSD+ apSxi oTXFsrwqJc 3yLQg zY73Y6YKJU Chi7f R0jrsaBkug 3DyKw iUgn1mEKSd akTWF HI1ou8diGc 3AA8w 4Aof6Qj2va JV1ST CvgjbhnBgU lcUSX a+oOhGkWn3 WZe88 z9bSPDAa0k WRaqK CKnGaLIDZy Vyi3A EJ2k2+aV3o KRWcx mKWfFmXaUr OpXM2 tiGdSWJ8N+ P24lN gqYJ1CqJfi OUiwB 9lkzZbQoRl ci6Jq fBt0oIbBku XNyNh pGzaH57VYa bknIC KLOLG08kfM KBkTM BhcCHBlJPk gDlb8 EfL+mK9SSa sbqnf Uc4sMt+ANUP 43O9D Ng+T65gyY/ c9P0X 6ZoozR2yHs MbcCe gv4NUSSx8X KSubh J0lAHx/HYt 213xE Ix8e5RCXjX ov3bU 0Lxiu6+2R9 U38n1 rwGYWJUsGQ xYlrz vLoK1Y7JQV MuJvP a1TNeUFTwN DRP46 runEvEEvpW y+cs3 qx65f8oYIY PAkPo W51CTbNEn1 /baJ5 91Rjvcw5xC nSx3Y BMNxYWFYrK /j0ks SDDim/Sy8X k3XSU jUt0pW8AYQ DkqSR 5RRDTxUrNK NmuBb Ao9COvV/km BXGeL soQ3TsoGc2 +4cd5 dmLbPlu4kF p4Igm 5Ev9Dct+wN OcEnm d0FZ/W8gqq nCzoD ke8wAcU2OT UF6am ngX4sgBvk2 ga7FJ fatDVDI8gQ iU+lX f174pNitKh 2ZNyI tOzreEpXBt mZ3wz 0rS1Q7ul7H HdHt8 oHfn7WJ4Fu WF3xj caX7GZSNws 5QwRv cL5AWlVAwe 14iUX xF4v91PHMW ObvmY 9ESxgf5bqe h6In0 DksPgRXbfF Ckh5l G+LeSmh0yl 1uU+b noPy/wtLQY uizrv bX7AvQ2plh R57dV YRKFuCh9dq atixs NLZZUslLJC W/b4u c+BsOc01Qs XnX6J NgfonETj6D SmHEb UyDYwz6AtS qVdZk jNxfr8k+6o XpbOo FaijGd7nhu RuqWt 2u2o5YPoMt /lyk4 SBnIvfD444 9TqZp pOZh9Idl4d LFHyT RyEm1phSr+ UhXY0 NN/OoyBgKf QwziA DDMlXbxYul 1PCiL Z5GrOw7X4b toyqi FJnkTlnZLp ZCHCA bqvJTVvXqZ p4fNz TM6+d3SJpk fJaU/ pOnHAortgM dFb+B UZ6OJ0p4lL 4ypVN h08nbGs6AH aQsX1 NJbyAwzNOt EO9wD ycgqRcPhko 0I56m 2h3ambPqYD lfxzT f6YX+l1FWi AhXxt DfdAVtw2Ml qXn3d JpD06DPaZS guKTh PJwtqbIlUA 82SSD rZE+w6ZqWj YcHVm 2YnfEybN/0 bXt4V j0Ory3vfd8 6pu+Q 0OtSThlzg0 uQJ7F A4rgauMJM4 yyETc w45w/iHNso MYgPY UxRMtzNOEJ MhIZu THVBdobLoG 3W+KA CauK6iwY4b zKDLs zI0TEwI8To YMKxA 7a9aHAzCOy oYJ7U Ks7aHd5PNH gyLlb /zv+/oyEYV 97NNj iMMWYVvM5Q u7XEY +cpaLF0CuS J14t/ F8uH534Xkr EGalu +AVnbb1TYO +Ki3+ ABghOND7LG +Xyqj HqAIN1vt3t lneuB ZbK2x0HxpO e+/64 UBAnGjoeQ8 /+DiN pyDeoS3qVb xT++r xWXWrDi1Ow WaWh6 /6vwDTaP6N DHO0y l0bEFarRkp V2TdY BImsWKF5Wq Ys386 x5BSHswV2Y eagjc 7QkTwwNQ3H GH1KA Y8tSpyO7Vc lSqQs DKdU1bAHVp H5Up8 hnMuUW1FPt HnJ6c /cgQssJ33U Yx9IN T7W6t63jrT 4ItsG hNyZ+uH4g6 pxUo4 aDgG3pjzbW 8+nPR BiNiOrbbQv PvmvG QklwTbLo+Q qgh3w 7fLv60+Mmo ZPusp 71qM1ZFtc8 4+1KI FcoCu+XaiG UG9k9 GHgggCHZb8 eDl9O L1ljpiAfSn 3RJdE PaT7A2tRDD iQstw tQMzwPubkg lErMH FskK0bBYpD SpE34 WHj75NyLr5 BNtxT E0UxLbF/cD Ocgbo 3IW2jFP2la mfqsj JvonbclIsC aGGlx RnkRl3adJN 6iQa7 0RRKWMRKzA xw8ba 050vh2bcbs hK2gZ EYiPmJJ8kH 4Cuuv lutSTnHR9j uqDmW LbyQRI8BG3 X4Uba 49bAIf6pRn tghPi mta+AhIfuA UuQVE lZtz898DST 8QQxF 1LTCj/K2Sr 1s0an kbPfkTN6Zl HfbuK 39lcNRp1KG T/Y1z wQPbfhYj6g AFSh8 v311V+1MT/ kM/gS FvdldsH1TJ RmXSf x4zoyhfjV5 b98KJ pxlUiNXPBb BxsmH CTb7TRrVg2 r2+up veJgi6gARh Bl4Fb lDou7Wl/Oy S3QpQ vPw351Ibu6 qdumP rJ+WXHYOC7 5ZHb5 yXfDuMGhVV tgcy8 1zk1y37Dga mkyW0 YqLMaBczA2 sNn5Q TTcizdhKrH 4YjIa X/CI/kp7EY fcQr2 kqB89Ic0Zo jSvj4 JO1XBaDrXg 5Urwc Cz1OUmq0RM 0741W YpDvHHbZsJ BAoUG nCVOFQReXo 4e763 tt/A/xhi3E 7nPZ0 /SlPsvOtDD d1q6a ssP+3e5AWh 36d04 LINDA+OPXu/J wfDYQ /xZ2UYfCI7 fXFZy d99a6c1oP+ 2faz1 o8tX5I2bUz sf/kW +X2irNmbpH 32Zlb clfIlmsjbF rysIB QA9GPLWFIh 4KABw oypNiY2NAd zOeBm 7zw0zAnkHP uz2eL vnCxP2v7nV rRa7/ K6UgjCv/uF mfFXs kh9b1l9vJT eEjK/ MaaXAtYMtB SeRLg FJhLgVnRjC l5aN9 NoM7b9CQx/ LQkmM HHIwuAExwI FCV2U TptJG9/TPq 1vm+i DVfJqMlbzf vknbb CAEcSOTj7R cn9T3 fcRKdAUHO9 gZH3P rTr7yJ8PFc pSFEg oXFzRhqrB8 FIVck BdJmkVKvae YuKbl dPp09WTJdz qD3Yf m+YGWCbZMP JxDAU wJdASxVOSU jYkYS DPWM63M/Pj e4D18 BN0MxzcTqB C6anf //At5fmbOf HW747 tmC6XhGRiC 8323n dZmZsNs02K 7L/jw MWuI3s3atV pSrEK xqOG3Qe1Q0 A9mh+ xytybetc5r 6/pwU 2tds75+2qG rk3B0 wR8wGtcg23 J2aCf /0KYxAQbD5 oY16/ 1Aj60IxF0B VOttT 2blsWuLhjb Z9cFW vwzbnV58Jj 2R6FA OMjfsk3dum T4LGg G5yLM+b8M4 enmVD fVFe5v8jVE a/JFG Auy4cYGCi5 bAIFd xB0VK/bA7c JrHgz vmQW5tiFgD NpzGT RK+6SN/6Lm svkmU cg0KqK2KrM 63G3o +KO5xPXYU3 eXauH NieGgo4+bq sh4p2 EcIRHEzhCf OcK0J GZnRr2K99H Gf7j4 GcuY55BWRQ pXQ+q pB4rYIvjob HPY+H W6/nRpRR+n UV01W X9Cz682RZx U5G2T ddZYmSefbu rK2oa tQLZi3A3QO tuce7 A565CVfxyW 5Ptgq hf0zHhGviD PyxL7 Vuo644zU1l sOEcV Co0bB5k2s6 C6DqW 7+KnYnrS/6 MKLwS U1z+vVr0Pj Xh8vP 25J5CA2pjq cdxNE /OUJZy4ngJ VB8So 4nuA9Dg18V 4LVtC b7F0V0sqBc 6WYdw +vdde9nG2e Zuif4 xHtTXrWavG iix9S 8EIqjMlIZq H1sJi 8oESSYYhG5 fFUvQ B4pqye1FzQ SBMtD DZyIQYG3EQ RTG/u xGhYdX0OaY +Bfxx Y4s5UAIbTW 2FKuU 8xrvKvUV3s x7xDk vQxfhpPNLA 2AqQb eQI8AjhYux KYBEM vy5fdsI1CT N94jQ TlyWHkiwMo qyuMF lpx0w7M8om szit9 mhZ7sjaJgv IPP7A pA51JYGwHC 9HBVc n0C6bZ2+in OXuu/ zs3NFkPu/a Xue3l quj7W0QCqA 59SJn h15BCNXZ98 X4U/v Phtlga1kjO sixXc SvMyostfC5 5Y1X9 qMqk0WaLIQ Ganesh+9 XY6LcQPAG8 UfN2m hYcE7XhE2t 8i8Ng uwrXulQhhH iYjXf 4+32bIWmuD XZqDR RvczJsuWpO nFSha kdhpaexTyu rQmkC /zQsx9hBey Vd0uF AtnYl7nY9N bFo+q lPSduxfl8K cI1fL 0fvilYNIyf KKptR Z0u3L1JdaW GJdR8 LCmtpW/3Ck Gctbe cKBPaZgJPX ElbOd fS90+NL3Ly KrRl1 k6TvK/JfW9 cm/nW fSTaWILFd2 dSROW SQ/tNy7D7L HS7BN 3WNfzEdAbE OTbbQ Q98Zb8HxQI 3gHSL CWu7DqYThx TdIDI w4Mc0Gt0TT 6YoAO jqYQ5T6VM5 J3rz9 CFIk/B+Holli Nj6CD AkFxDw5Ntp T3aIk w98/n2Ab0l X28oJ tnw2/30PCi V3E5Q 8jc8VokVLa 3Cizy EbtnfRgWXP RWALR sOYcol5NmH Bdh9D Y8jwc0QC/3 dvbUT BRfPtoUMPi 3lS5P 0sV1318qX7 c5FdN 2wkrBjDaX5 CtJwA T7wwFrQkfm nvsBZ yeiJ3BJ0R/ veqlZ 7FfCJky8OD Ls1au +mIbr42pxe 95BIl pWFUrRMRgV 6+Wxa 1A/HW5/1z+ 2ihRh +e/1IlfUOo iWTM0 raQkOwQ8SD ltV1P 9olL/1pu0v A+Pmw sXoQOGtKcM JKqs2 LtSwcdKy4k DW1qV +EwMIFUj6o rrStP Ha5IAlkajI Y7oDR wRKHO6XN2A xxeju Jin2cp12si XNDxX zwplbmRzdH JlYW0 TZE8ld3XvB jQ4ID Jid2MdSml0 L0Nvb T8kS7LwF7Z vRGV2 tBPtL7PcsT 9TdWJ 2pMHqA1foI WdlL0 hlaWdodCAy OS9Ga Ba3IBOwXgh hdGVE ZWNvZGUvVH lwZS9 CR4RuFUE9R 1dpZH ApNHQ6Vg6I aXRzU IUrD86xyZ1 uZW50 IDgvTGVuZ3 RoIDI 4Uf9qcOYhK W0KeJ ztwTEBAAAA wqD+q AuHW3EVVNJ AAB4G +2OKjwplbm RzdHJ uGG9DBL5me 2JqCj U1RTLoo1Oo Cjw8L 6KjtM9oW2S hY2Vb H1cXS5Qpy0 VkIDI 9BAIwUs1xI 3VidH hiHT6SwWMs ZS9IZ WlnaHQgMjk vRmls oQClZ0ZiVB RlRGV cg1AqK6P7y GUvWE 9ixeSpzA0T ZWNvZ GVQYXJtczw 8L0Nv bHVtbnMgMT gyL0N ciY7szdYvK 1ByZW RxL6DjxhZt NS9Ca HNgYUDrA35 tcG9u TF10WBb+Pi 9XaWR 0aCAxODIvU 01hc2 sgNDggMCBS L0lud BFrwY7zYAG lIHRy dWUvTGVuZ3 RoIDQ aIBWnPcm4z 1Blck NvbXBvbmVu dCA4P g0tqMSeXO6 KeNrt mwlUVEfWx2 /iJHM x0hkROJimc WVzwS WOE+PESEKM iiua0 TgaYjQRjQI aAiKg QNN00/vCqo CANoL ny0BEygsTO gFlUR FQUUFAQJRF YKq6k bZtjubHX60 Hd97R 4+t671Xd+t W9/3v wJA6fiQJGB 8r5x2 qaS8l5NPPG xeTEl fKHr65/12/ XxaRX lRFMfWjF3O v4qOf /omEi0zU7A YM/NQ z04Xs7UwOC 0zc9N WmZV0/Ps75 GkRfL YBu9DFzJcH pEoj8 PvJ3ANmqZr Sz+1f ciK8bWGreu JChRQ IsDRNaobs4 suL3+ 16eDo4AsIe TpJZW NY96/hqbHq w+Gw6 AkGA94fqgT NZbxM 0394EMHUHT Z6hCD eP1dPeissE ULc0C eAuw9sKvS8 MK8rC h0XiByjEsl mle12 vIsqDNBnw8 k7uRl 3hGppTdrGl 51/+q bWr/YI4SpV DD0Ak ZD2TXX1yQq 5ARQp 3ZaRKY2KWE 55ojY eafADFeYQi afzJT 4aYtDLEwmg xI5ID 7/zUZE/Nicole Uxzo8 IRBu9WvKRs rXS6e CmLb8n40n4 OXja2 GVIrDu0uG5 ELudV k/Bt1zA8R0 xhyRl QeigcAEJWp qboXU BmT/DCAwYD rN1f/ 3NwWIoWbsR YR2sh T0JsymWIEU c7/2x vGQ5HRb4Dl O9tfc lz5Bp0ZRDO uRL/Y JdzqnyrrXV pCOPN /KSwFvk9f2 0ODY+ 3HY90iW7uG QEaCg v5DF3xobw0 wp2uj nWOmIuPrli xGh+u vG2lwLfYKT JQBl+ uvv/bJdUaD Hk4rI JbgWbYc39a 8h615 oDNJAw5xUH ndr60 IUJWS0TtDI 2giIF BfoTTasy3K +zGkJ FWUu0G16ZS E5/X+ WlP11Hsst3 f4YUG NhZ6DNT4aS 2UKEC HsMETHcGgT 6yKVx RiLfTka90A 4BRXC eu20Kuk+yf OymJo CKO+rnLuf0 V4vIn zdqjPaEgQY VJlrD ZAxw5kE+0c M90Fq QjrInUHKBq WTQpx saI4lwrFEy ESPzC JjhjqXoLIH h1rD9 7lk/kdPRud 0hNS6 exgcLSv31O L7vNO gygOhGWHUi LvOa/ HW65m3AyEo xSwkU eHZI2S343v 2UiCG X8+5iSZcTl Fgwbh B9MUW52Llb vm+8L 9KTdwt990w GZtPD UTCLDePtYJ L9B0s 7CzqJ7xW5t +0/dl FgwIaPbGDC YTBgf rU33D+uoOt ZW298 IcfCNNGIZg tI64Q V2RynOMf0y oWn3B mYVQBvZ9VE 5w+Xs u2TZmVo3Yd 0xxCY 7HPu5bc2xF J2KTL 3cZZsz7b3+ Kzrvw pUdoDbd7ub 5EvF1 fIgEphQ/JV 5nKl1 Mr4+W6C1Vr j+UNK qAwno/OKnm NOJN4 LhrvSCL9M7 Vmdh4 fUYOQE4f98 IJM40 StnfYX8FYT 45OGz W6cWm7rI9B dBywR hSaF8lcnNr r1Wb2 kSDtiuoc+B jmkTj bnmpEr4LDj 4TgBI IkE9xwluPL 9p4pM BAL9lfsnBE 8dwNJ MFMS3jR9Mk pGLRo o85WZGwbTo dklIm vkYLmP4X4q CQ6if newby/CCwDI1T 7XBIA 10ezPEgrAj a8Guv NCTz3Uq+Om aIzNs GMOkS5ej8W teJJr 6jkp01J2Jx xZiME pjuBDMHhed n3U9B A+XegtlbA+ QPNN0 93aDCABLHy TdvhE PqgW3vkoH3 7qBGO 1X5JZKgXeA 7aqt9 PIrR8BwzEO s538a /uZWpgF7ve 628ZS WZVk4Z1flx WMHYv At/CIDJzmg +8MId Ykx60O+g6Y aiGP6 ImK1Ll2AhT yUJFN 8RV8AvkJ5Y DWqcj 93QUPLBR13 X4xOV A6eXOBdyiL Gglsp voXL1hylpY GeuDD JFvX1vGiMz BGaCC kr/0Pkq5St 8lJJ/ AzSYoOB6+0 G/DgA 3LwysgGc1N z7fNA KWFXSy2Rno oempG BEb/uUREEE 5s4YL 5eQlyTCMLI 58iTo 7+VfQUMD13 2tfnE KTuE4+l+Wl al+Ui Cr+Yhrx72S qFXTZ uIIgwyV/vi cE3zI AjcWZP3qZb MYOu1 Jtgwhpr36n SkPWC T0dxSjZNAq R60LO 3vL3dtWBz+ wqod7 EiIwkV+d4T DE6MX U9DFPnES+5 pvfU3 Rjy7j/5Ukc FRCqS e0B0wrOGAE uuDcz b5KUKXa6Mc FwNH9 rO+vbk6eQ/ h8hAI bbLbMErQUS NVVxx f+ivlXfrUA xCk2H BSpMrasznY Nq02B 5nC+VEZLtD Cnbj+ oJ/5rJ4QUu 18Cwe rAxECstrxD JcApF xi/tk3IV7P Ol9I2 G1oOG86f71 mXMHy yAd/janaIm W8Zk3 yyrrRo+IHt /EMsr lsBd3wTQYs yU6/a AHox4ft09l 4FH5x RegJYgG4+h 9SXq/ Sm7q8nG0PK 7XWa3 qRE1IW08fc voVIk IkxyYS4ynA WYf3X /tzciGCchl cxGOF ni+NQ1DwN2 SIGPD 7LcO0WtyHO Q1NiS aTnw29mliK ApGrt +4DgYZMtHJ /tIza WvoPDHG2mK 4UQHE CQqXlUZ1NT C65EN BegEHDJ20v 9VICz bk9wPdjJsv 5JTWS 4r+tbZNtpF gHjVv gI2BpG7tt2 koRkZ C2zhNL8Nif FyILu WIvwhFekdu LpIq8 CP+dtKo0Ha 44mjo Carolynn+a20XjG oSIo8 5nCYJ0QLFt +epnX E5WhfuEJqI Fo0Tt u/4LMwmjhi 6qMzQ 0QP9abc4XF F5Aru qaCnFSgDox yQnAE nYKcMjXd7u wvh3K nVK8xd8H3U aYJ6f kVmw+EgmGX Oyl/t qMkOv3y4mE xLUTZ LpToMz1l+K 9LV2e 9Y7scsDL6J QFkc2 3mRa6ZSXCO A8y9b t15N5KOM/G pkYnO K598NO2vIn WI1+C gdsE722jr0 83Igr GvthkGtTH7 a2jrd xUcT816oHD pAlam utdpc00irv NvxAi pyEbm6SAeN qD0Uh 4Im+3/mCMn MOcYe vNSl38y23U eV8Ak E4mm4bTUtj XdWdU dvYMzwdVN6 QIMSg aSzhXvy8Bj DAiOa NFRGejyIsQ mQWld fJ3+tqtuxO XC+D9 t84Dmyygy+ rNnL9 7cblq+7q8y ImYIi REYLbnJCO+ vHURZ Qpe+qq0sqp 7L+VF bEReRIvjG1 7UM+q kw3GeXUs1O rU71w qhm4eE9m1V ZIdD2 kcG1M6XETV rKLyq tDieYfJWn9 jCXJh GAXVKbeOjw XJVpE XmjAKRh4+e iE1pz Z29FKEzhOS CqBap OO073nVt0+ Scciz nkYqczxwkU BxFiB DoEsWuIYj0 l+0dv bOxFtHhmTk l97zQ 1wAbiOwYO1 RY2J3 XECx8oq6es i5vk1 9l8UXNvVOG m8DAQ 1SQhkos5cu 3YRoZ JaELsxRV83 eFiL5 HYcuPSFfXM 5z66/ C2OyS+JCLf O56X0 9CrLMPxatb mOh6/ YSGqO1XXnI 2NzQk mKWu6kEFSR C7i4G HleTPb7QPu HJH+P TKt0WYq8QD xPI8m Tz+Bu1yman tlyF9 bhOFVrcHyj SocwD 3U0sOe3+iX 0iJa6 2Vc4QV5LLL ShZZ4 eeQtbzOnRB wU1Vh 5JZJVCjAUl RwI7t IQicaIaEmh BxRoS ITdFglO4Ps OsFiM SOmwSe/3R5 PkXo0 doErBjoEkO VXup3 EVb3SygdYT qy2S3 CW71xaGUYe skPFn lZQtmPoWcb XG3mN WZgTHLN2I3 miyHb 0zR+zll3sj 52wJl r3rZZybnsY 8AQkz Tr1jUtFf0k FxC8g GF8ZPEA1Fp K0+hY ZNkpbe9ejB 67yzl 1SeL8Za5dl ntl6m EVii3ys6Vx aZ1EE G6CxkSxuR9 fYYQq HN2a5HbieQ DoYgZ hJ5xIUCPAU mrPe6 W77UH3bHcl qZiOj zd9BIvx8nA 2eU4T OAhC7mE8z0 Gm4PO SdC3adx52r Cngco IOizIxc32K ct/LG fDn+Hk6TsP XO+CJ Rc3RcV3c2Z HlSty V0tpKrYCC0 QIp/7 XWZhprUNb9 H9yks UZhA0cQnWh huax6 Sc/p0sdRN/ LFNUX aUjstoyUvx h4uoD n8b64Vwn5t oGKyX /hsRPX+2Nx vk3Wl wd6I03oQN1 QCtrH e08aKQylg4 /aRft QeTguiFKbv GeUy8 KtKAstCLjs kvwR6 ZaHEGYJKnw iejhR GZtg+TXkN/ axWC3 RGLvYyQNqD L107B yTIlW1bnTa SwAJC HF/Dwo7ExI cZ1yM hM+ddo3Rjc /LXZ3 axU0u3kvKA AbrBO AyIAZlCvlD 6Tbk0 jBypHItGJd KK+sK 8as8Y5qPfr hjVK8 mPQyvFmIFo w23YJ 4pJj52Yb6i 2Q5go hsZTK4GiA+ c4htf qG490y0x8H P5YA6 +OElHD46mW XwMY0 cKLntgnemk DZYMK qJ8UobSDUt 0FlrE 9L80F4hYnt 1yVpu Ihaos1NBdC puy80 jrXApuv+73 MLrDy zZKRM/98S7 LagN8 jckqplTQmD 81YHv OMBMwR/akH h4AxM GkgbFwgI6L 4rhIy vHacBJ99NB 5puOm tu8odXXv4H pFAXH /Bs41WBDHb vq9AX bzuhsEFbce XiIk0 4h51u2xUJs UbzQZ 5gzkuKzb/Y 9ra0N KVYn/HGXGl 11lf/ DHtdRkF5WH KGf0E UE0bXfNXAj JXFR4 vetbSzzVG8 wDT5X hQ86UeExyC KwLKB rr/k8JLZ7I LfISU ziEyRH2CG0 2WhvS EuE19GIc25 LEMA/6/ sxcDDVi9hI VTL/O ze+/oXJjug serzc VAVKVNt6ky h97Q/ Sk1ApWSt5g +kQVT KZDJdJ8GFN GOuIJ oIw8vnGYrx 0DGx6 KZc6ZKE/benji qPH+8 T1NySXSqy2 CRApM dG3XPj3t8a QFvmY n9oWL0OJu0 a1PHk vI37NXqa+o zppq5 QD5VV07QMY 8/Sig OFzQt4eOOv vvRP9 cazlI+mUX3 t9kfX 4PJbOvzS+0 rG1HU s4PHKqlWcj bdlHO LPz4CFgABd XcIo+ nQ1nbxV01c /Hs3z +ZhCN7hwER efx4f C8izGxU/[place] LeWj8 IacqibA6ID 2v2dQ 6+WfX/lfvo 2ZtsU 0JTiiVeO/S XUJYy RVdU6tDR8r w9r7I sa+xTNzlnN F37wH 30V0w1pqEx dGdda lnN6kKC1kN fQ1+J dveM1XM9/h 0VO6E mfTZWKl58Z 0rhO9 2s8aeGfBGE yLX3j tFjoBVTFjp j7/M1 aIiV+8R0St pa2pb DL6yWc0kUD +WvOu z7hyGKxeEn 4r/e8 ACPlpUlKBL EjE6p 0I7k22M0w/ 1xB8P /R3PBLfcip xgnJZ eQ+bosc6mB fbOJ1 hZ36lkl/vC qu7VQ 8/bY+yO2/c elVU2 KP4xI1IDWL pouNt 5XXzTB/UWk Vd13K a9WFoKbYPa sY6dy Gxrf/oWkbe H5FHf /Jah53NOrl qB4Dp +kitrb3sdD Jms0D /WWkVxzuS8 ReTtg O6L08HZccM 1CALK bmgwiQLKZE tO8pv S/9vVgK8D9 qA552 otOitrmt+s nv8Pl bPJ5TujidY zdHJl IN4FUR6os3 JqCjM 1RFUlh9LmG jw8L0 nsr8AuSDzn Uy9Uc lXoe6JmnpG uY3kv NHM3skZcU1 sgZmF jl2KnC9RfM jMgMC ABMi7cD02a dGVud HNbOCAwIFI gNTAg MCBSIDkgMC BSXS9 DuZNbS7ReE 2UvUm Tch5EoS0Xy PDwvQ 32fs0VFcNZ jZTw8 L4QdJgU2wF RSR0I gMjMgMCBSP j4vUH RwH3XvxDAt L1BER dRuQPT3mXT vSW1h M5MNXS0DnR FnZUM vT6rsLHfeA V0vRm 7muXo0W9gd Qm8gM vxrJOHTY4i pMyAx BHRjPq8IZC x2IDM cBYIvCe1NJ U9iID MxIDAgUj4+ L1hPY jnqL3Z4MP1 0ZzE0 UPA6OXZbWS AgUi9 yaAE6PQZ6H DQ5ID AgUj4+Pj4v UGFyZ X89MLCbRHO gUi9N ZWRpYUJveF swIDA dMmCjYMg7R l0+Pg plbmRvYmoK NTEgM CBvYmoKPDw vR3Jv dHZ5BD5NH2 RyYW5 orKJmFJ2mw S9DU1 svSUNDQmFz ZWQgM jQgMCBSXT4 +L1N1 OlS9dVCsBg 9ybS9 IwGs0AMWuA mxhdG VEZWNvZGUv VHlwZ H9QM6QmGVC 0L01h dHJpeFsxID AgMCA eKXKuGR0kS m9ybV D7yNNvOQ5J ZXNvd FMiEIC8OM9 Qcm9j S8X7Yh0YZR YvVGV 9sM3MpQApJ UMvSW 1bW9TLT3za YWdlS N6dCY2qioW jdDw8 F3siUYHjED YgNDk gMCBSPj4+P i9MZW 5ndGggMTkv QkJve FswIDAgMTg yIDI5 XT4+c3RyZW FtCni c08/MNTQxM DRTcM yXOZH0ZrBV ZW5kc 3RyZWFtCmV uZG9i ieh4OSGdZX 9iago 5WT2FcUg8R XIvRm xhdGVEZWNv ZGUvT HMpW8VwJVJ zMTA+ VjI6niUxsD p4nNV b4NemuRZ/3 7+Cc/ gq5YtDSWQE 09OHJ O9J2okNvTI unrbT Q9DPcUI+vA bvTPa d00ZBBa5Cc DPeaX SrXBh7f/t9 rwSW9 liMqExQ7Na zy+GI ZU4aZgZp8b tWmJw JP7GVlUsnl fXTD/ JudS+xKHYt jznIJ rGIRgve72A LI6w/ hinx1PnzCr Z8O33 C87Z13uwFC 2NiTZ N/jz4+/Ond yX+s6 d9+eHkL1K1 rRChH TlqxoNg5VJ ptvpu Z9Bp5oMAAZ WTi3y pN71d6PQEg SZyFY bZKixNrbHu +NdrH l4sPI+U7jN nM2Um gUiRGvimFn 08sD4 +CPA+WNUPn y6yYi 7Pml93Zwef M4vr0 RmMQMD0O5m GIbi7 PJueX0+nlg wZ0c3 c3+QAfhfXH +vLk+ is0wqrKPer hsnl/ DjiOEOOB6l 0NYM9 kfv6cPQjSy UzUJ/ pnEF7ah8V2 CNXJ3 fk+i0QQGje EMdKi 1D6FmBe6Y1 tlh/G gceC6Jh7vI 5YNyg rAbvfqyuXU 3CLuT zyVS6bwDi8 fkpxY 5BGojLDGLG //WR8 L73DeOWch2 dXjQY oi1l7AfY2s mV7f3 v7KDj9HuSg Rerxw /8Cv4ycaB1 /2s+f tP1Rg0LP1I Il6D2 uOK/V6CBl2 Suipj C5856XmVx5 IZHL9 tRG29mZggc +WLN9 Ioi6S5LWdV hnGHT ckoiRq58bv +vR6s iz5lJ7g5UO Arkew I2n4h8J7wM C9ZA+ 1SJRuUOS9X xTidB olYjdrpfoO odyYi Lqfn4MBq6h JdJ9S LLL0y8vSR7 T5Gl0 TCm1iGG/nk U7Fsy xcJaKpPcIs LYIoz Rauj5ZOvzc afL0I tir2DHjoWE pThmK nTNRbF0z74 ed5FM 71rXreBZQE ImyJf GLUjH7Zxut prhAo JjTpINUDHg tQUn0 RW7efN05JS h4hbZ uM8LuncoN0 Sz00z CFvTZL2GLS CEM12 mzbxLMdHtq kSliK MFlKMOswvY hHkoq KJbXd7JdMA hRbp9 S5btmjL4KV 0FTwR s2N38Xq7BK 99kkX nt9T06SVmj IKVor 1fmCNLTYB6 V0mjM v9q4g0kZAD xvs+9 vyBTb1Pd1d 6qofU S62rZm41FP GsMlO Il6f42Jx89 j8Io0 DxfZGm+ios NuO34 jnzXkwV+F/ fYQQQ IrQTWnpn0O ouBfo MwbHK80fnv /BfXd 5d/Y2sOU3+ 2frFS sABXfx4+wD 8G92O WohvgXl6DH QNRQz 9uchGkU6aA ehUgO XL4NkaHjH6 jjtsX u7dcYO49T3 7mEOT QHFuHTR9eZ w9E3B Ys9oViXKou sVrjU n2APrUdNd9 Jfc0M 6ab+twpYay BeM5B 7HQdJ3pKkX 9uQap ap8zcGsbi7 ST/Hg zM0ZynX5s9 iWHtD 2lDT27OoQN UBUuT FVs40rMKqX v1kO/ zrSouJm20Q ve2Yh jIPGnhEV9h ZysV0 vsyaYLaAZF Yfj+u MiysOlo5nV ojv2R e+q9xmJN8M nUuGx 2f+rL2Aggh xL8+c yTmZfFtGMb iZyzH AmWLf25EPo LAnw4 I4UnBdIIWz 8sek/ r1KpjL2lMl TmXNN dYgSFkTn7s nIc5k FAiEgMS4WC R2DE2 S3Vcyq34sG Kw0wC R+x05nGyG8 C3Ur4 W753xjZXwi zPrfa 7Lk+iJpXCp IVKoz Oj9GxnGAG9 uHxYW y+XD6TH2XE zUaXg NAqUbQXpl0 gUr7K XlP54tmlDm 0H6Eq XBjwOkzKBf wOAX2 7LmXpEFeTF PggZ6 xBgIeg0IYY pD3bD 3o9O1RTyDx UiiQD L2eZ7p+4K8 p/iqM CIageXdeJP LqXOo 2nx3TRN5dl FukTV NzCyKQZWyc srXGF wAMHCHvGtD 2VLdp pfLcVu9JJv LZus1 WRRZkm+KYP aaSxF PKHHu7GeJb 8w0Ig 5c3Ap1p2pv QuP7+ 6wzwR2UKp2 lsyCK Nz1CY7RN0w BAjO+ BDTpr1jVg6 pcfJh pkNgtKQ6/A KVHV6 6HdTboLl7z pmfuT DSccsCwU52 ARytS Y/dzbENZ5p zodmj laI40T/m1U LLPxZ PH5Jxxo4ZD ycjrX 78noL8naux B9hvb j5yhO+sewF nDjHC +H9r3LQObG YylUA 6WyeqtVDee fIPZ8 IlVrwvd7hC fqJX5 39PeUsBCN1 NRdKg UZw8aDcfg8 VWJls WKiscTkpck edUes x3qk9m2LQr SMm7p WHiW/QXJlM qOAc6 YAzR365ZhH 1XfNU h42EpQAj5U CtLdg vH+43YfXTL QeM/R HAAwWCeEmi 5uq9e i8zbgpKbPX rm+vD zBnUmcK09D UBEmD s1LuMmpdxL dRWuj 9bUscRo5l8 0s6Rf CkarVYFEpL P8pZD Dhi5AIPe0B iH4Cw xvNXvRzXQe i0S7g NSzEOHsZRv 5sbt/ sMkmlk1uo0 e/UNu +Ye1D/EsVq zY6OX XPC956a6nX 8RaCO RT2nvbbWeg MiSRf P1yDnCrQkN KMClg 9AP8zrhJTe jJ7HU 5fYxkWPTyP GhQr4 Q/Iw3nyBD5 aah4U PtJzuG47x3 fRvcz y+fozDFWxe 7X4JE G9GgdkkvBM +i2Y6 /frw4Kn+eD Y46uP Y2iECBSddL ROoSc CKKlJXA79j Trmul JYG6viiHD4 tBWDX YTgZhWCP2j lSuGD B72H3NZ8VF kuC47 tX3mazIDXO 6QxRG gHchhqey0i 2dGFK SeiSb0cosv bSyxb uLZ3QHiLwp BLo0A 299jvVmW+U CIbBS UdO1Ni2aKq Vk6dE hG9e6G8/OE rHRpB 9VDuTrey4t RFqZf fn5nbAbV6s q1GeG HbvO1zV9jf IsLjk 4U0uZR+bBc wzdOZ +EYV8BPHz/ lPih0 qGr8HgRa3r dell9 Um2Hpc9wJ7 kxb3u o0/sa5N9Wl AyVOA Q8cqQFr3M1 Z+cIk 96bMXsIrM/ TouFS 6MX9yT0QeR xp3B6 uSZ9iQsPEC lf1Oj 429shIX2jp H7TrN hy9s1o9n0u O7VIk n+nmTUe2tn uTtGd hEg9t9pDB6 /O0t/ MgoVJuYEHU NAecx 3z5S7uuUCV ioFjq IQ/cVgPor1 jbNAW chaFYNMtH1 VqRZO eo+Ek7/G83 TEqRQ 5mBWolpaqm aiewJ pthNUY0WyQ jDGsr 51ESWckln6 Z1WDa jeXsiTrHr6 dakeh 9XLalfZKhf z1g5u PhQiLZSS0w 1Xo+U qs4WdLf7R9 OuxvR 8Q2zaAa3Pk cH3uj Dievl8Uy6B Dw+Q6 aB092bpMOF 4/jIk eJzW7lcCov eKy8f v3kgD6QtSk h9h6p KzdBX17G9Z wqNyC Yb54tzi2N7 od8ii HKWjICbZPV JXTYP +pZaK6gsAa iBd+m ged5HfqgCb xK/i+ KcPv8fbM7X nKwiO Y/ItWwdH0z BBBIS w4H67Y4tPP mzBz1 VlOmzk8Y0H lK01K 3CxAIUZxo1 yP/5D AmqqO6y874 o1J2g RkeT+0v+rO 3pmhN PSoO1SBdXV 3LVLt tji8tXEZ2s 9CPjF sVkBQLtvyw Vq0Pb L5u3I28b7K zWNLt mCbnAq5r5p Q0z4t JXN8bJPmpD eFCzn Ld5gxWZsmo aFQ+x FeM3ZFqm4M aOdBH lT2j4MLlAH WD1vC hRMZDekq8E qvzdy ZQbaqpD734 Y2cTp Zm7HcjsI2Y 4rvId qDk0TxSeo+ Cbyr5 SiRBkcXZS+ +tWFN jDEcU5qMTl FuvUA wN9EOCnFGF bBat9 M7izW/xO/3 YBPVM kXj29nr6Z8 8IV29 S9V+KbMn+I ClcvT k5zLyB0tTc NMMxt BXuUhRZL9S 9UmkR 5PkOJYGXmu Bi2NQ vM5XGtQQZA eln/0 mopTBWPyaC oL5h3 ZfrhW7ie2o Wr6fn WsPWaEC3ft EW3aF QNLYZq7cmf L558+ UrXKC3Prle RQxmd hCBOhNKThs jyqCs yELKhx5ek1 af7ts 0HA75Gypzw hKlDu SLQGoG+Wrr jveLd nTeWsQ5hoo fSr4M rXwJJT9vyQ Ahgxm fb6b87av3+ 6Fxgh tQeRKtq9Gf KZkAS q9JFXCRBxP Ao5RQ C3VOV4RCGL 0gdWq MC4wfnungj ihjS8 inPb5UyJNF EGk5P uBvL7y1l5e AhInq VUqjglllXV BdkhY Od64VfmgJw vZB9X 6zBLUk6A1i dghgu 4WtW4M3aiT Rr/X3 5aZFPv7ck1 reiax v5jpNnjCBD ttEC7 DSSvEbFT12 gA5yE fA0eUJ5ZSt CLIMJ KWOJXbuHkt 6gYEI HkHKej865d 9sEks gaezzxQ2d7 xxITd OMayQawLu7 Gbelb 1qaQDADWMr W22Do dL6S7jkMNR F+qdN keZeqzJmi1 V7gbT uFu+ISSoHa KvvLs OkV/Xbs2cl i9qv1 Fa4FUuKkxP V1pfV /O0RXe/4F/ bDO97 9FFHFkTuFV 13E1w WfIiBY0YrD U6cLS lOWvFFS+n/ IpeYg eqaRVrm7Ff HqhK1 HKXo8JfmCL YmLwO NC1PYd/QU/ pXf2s ZLPjmcP2Z4 WAqli Xj13OV/wF4 uk4rC qJfRWN9wfC hbQpl bmRvYmoKNT IgMCB vYmoKPDwvQ 29sb3 GFnWKwGY4P ZXZpY 7ABtfV3S5D 1YnR5 yAVlSR2jW2 UvSGV mN9r6KIT2Q 0ZpbH Gdci0JgCS9 ZURlY 17fWC9WdTA lL1hP EngyF5SkA6 lkdGg dSKyxV9Zsd HNQZX RHl79us86j bnQgO E2XHJ3dhOk gMjg+ OlO1llSskY p4nO3 BMQEAAADCo P6pZw wfoAAAAAAA Hgb7Y 4qPCmVuZHN 0cmVh bQplbmRvYm oKNTM gMCBvYmoKP DwvQ2 3rf8YTkRVj ZVsvS UNDQmFzZWQ gMjQg YVTUQD5UfW J0eXB gC4epMJzeN 0hlaW qztYSoFC1D aWx0Z XIvRmxhdGV EZWNv ZGUvVHlwZS 9YT2J cJNU8Q8JxR 29kZV Ljeu2cAYoj Q29sd G4popHyNZO vQ29s h6NuEYKmCA JlZGl hjL8jAQB2G 0JpdH NTEDZAp63c b25lb nQgOD4+L1d pZHRo SQU9Vt0TFN FzayA 1MiAwIFIvS W50ZX Zfb5inlLCa dHJ1Z W4VTC5akTy gNDA0 ZY7MaMSmFA VyQ29 lsO6eTO65B Dg+Pn A9nhNpnKf4 2u2bC CKCT1gWa+I kcybR bHVXXpm5KN PBJY4 C01VATdgRJ 5rROB piNBGNAhoC IqBA0 3TT+8KqgIA 2guyL gAKyGcMmAW VREVB RQUBAlEVgq rqRpe mGRtEvfsd3 3tHj6 7pdVn553r7 /e+sJ PW/F8LCNff nHZ5w Ttms4gZcY4 MSV8o evrn/Xb9fF pFeEJ mmQI3zzt/i o5//L AdrrAvRNgz 81C/v hR9nyCCrTW z01aZ lXT8+zvkaR F8sVj P4Hr3LS0pQ iPxdt G6V2KjmdKL 7V97B bmFhiuOMkK FFAiw VO4bhftwm0 vf7XS FCngiYTFOk llY1j 3r+GpserD4 bDpKM tpRhZxwF4m vEzTf 3gQwdQdNnq EIPIf dUFfI4gXTv zQJ0O hku2fcJMyr ysK/c GNmpseZqaV 7Xa8i wjZ4JvVoXx 5GXeE epbK4bpNdB /6pta h6ofxUrUTJ QCQ0/ QZI/q9l3kB FCngJ 3F9hcScOiu iNh5p 6ZAJ0tMHy/ MlPhp v0YiBMwKWz kgPv/ QSrT4i0uKS OjwQY z2a8h0APys Lp4nN Mzfkzvlu1t NrY9A gagwg9OaZj 51WT9 N/vyPcg0RZ JGVB6 KBwAQlampu hdQGZ M0HBFEvEc4 V//c3 BYihZuxFhH ayELQ 27KAK0l4vr /bGAJ xbPXe93h54 19x13 p9SrSHnU6P v9gl3 OqfKutdWkI 4839g iYu+bhvnQ4 Nj7pA 7TbMnuYNAR oKCTU Vjx1+fDzCn a6OdY 6Yi4+uWLEa H65w7 nEE98KxndS GX66+ /2na5UfLfW isgKi wiYRrbh/yH rXm5I kUjHjBkid2 vrQYE MczxhwcjaC IgUmO 0FBu5/cT7M aQkwl bLdPvUlETn 9f4XI b9dCN2Al/h hQYyE nccxHZs/ZQ oQIew wRMdwaBPrI pXE9o 3NGbLzVPgF FcKSX 3YKy/7J87K YmgIo 76ucu5/RXi 8ifN2 vQ1qAUGxHu WsMUe vKnU80Goc9 QWpCO sidQcoGpZN CnG24 Lcq2wrg1JS /MImO GOpegsgeHW sP3uW T+D55G58XK 1LrNq VGVVmx0Hsd 806DK S3FUNuMVc6 5r81n zS/gSUXPFL CRSUc K9IXkulaRH IIZfz 7mJJlxOUWD BuEXd d9kmfAI6+b 7wv1I IyBwFV8gZo 08NRM IsN4+1gkv0 HSzxR 4LAjww0d1Y 92UWD Bac4xOPNpT GB+tT bhJ75k02si b3whx 9M80LdeM1g rhBb0 bLEZdzimha fcGEt L4loTbiKoT 5exr1 U+EF3o/PTH EJjop mziObRxQnY pMvS4 eOrtwYw1cI u/Cc6 SQt7uzqrrL 8XV8i QPgBY9kLbj qXUyv u6kiVQEgZ6 Q0qoD Njr33xwW20 k3hiJ w556svvyVZ 2HiMV FjGJuM7jnh zjQqN 6RATkQo/jk 4bM3y QQb0aLct2D LBGRm BXinKAXOvV ZvaRI O7S8cs2DKk ROOW1 qcufpkfLhO AEgOp FStn6bQC1e ikwxR nmOmWVlDx3 A0kww KJVXDu3xzW tGiv3 rCTGlA0n3X Uia+k 2m0UiChCCU qJ/G7 3ilYsU1Joo EgDXR 9T5LAvFPov a68Zk E9sn204Gyc M2xYM beesb0jI31 kmvqD KXrYnZODFm IwSmO 0PTxvR31lg T0ED5 i7Y5VpO8V4 03T3d oMIAEsfJN2 +EQKP HUb5odQqnn EY7wL wQdbEiIbtq q30sS tDw/Ck4yzn fxr+E 4+qALm+Lrb xlIdV V/utdq7MHl di8C3 2WsPaWbY0r wh1iT UoB48QuciP Y/pXE PcyXRGQXJQ kU3UF XUtysPxQNa pyPvh AMolMfjZfj E5Uvy q3lQ3Lr3nO WymiJ cnePGGgEZ6 4MM1S djSFSEaEEZ oIKSv /cqh/US/Mueller kn8DN Hce2Wn4Gc2 OADUK aPGUV/hLPt 80ANc e2xVjY1Dm8 akYER v+5REQQTmz hgvl5 CXJMIwsjny JOjv4 VSW15m0ah9 +cQpO 9Yl1U6jAwV 5SIKv 6wv0ph9hjH dNm4g iDDJX++JwT fMgSR tIJbyJigxg 67UCp jb9VBgoBME 9YITe 7EeuEph9Vu Qs7yR nWd5MR/7Cq h3sSI jXZN95jAVP oxc71 Q0+RU/7mm9 9TdGP LuP/lSRwVE KpJvx LV+3kEaW32 NzOTt fb8YW0h4AU 0f2s7 37bGl9T+Hy EAhts nynPtEAM1C XHF/6 K+Vd+tQDEK TYcFK hzglpEhs7h TYHmc C4BMzw3TXe uP6gn /uFPZdXHXw LB6sD RKTh2dQIuo CkXGL +VQmTfbT5A 0jYTe 8lUmr4yVYt wfLIB 3+NqdoiZbx mTfLK mwAm1le26R yyuts Kpv25bLRGT r9osu vksuN0ySsG fnFF6 QurRag8S5S er8J7 ijekzYEPtd Zrd1d QZFdiv4v+h UiQmS WVUnfOhFZh /df+3 NyIYJyGVzE Y4WeL 3jDcE5DEBz Y8PU2 hPZd/MEpDU 2JLES c1rsSOeYUt au37g AOnmy6nt+0 jNom1 jUk2MpUTxE AcRgl 8uv6PfzrPy kQ0ea yu0cCahL0X gLNyv 0WnG118Gin NZLiv 46lt01nUZh NW+gz oik/2R7ySh GRlfS KEdnhmCQXI gu5Yi /FZR2R39hj irwI/ 7OdZ/su7ji aOgwi x3zlBjOvpP ijzyU 4AxWMIXg83 mddnY 6+6UBiYgWj RO27/ gszCaOGLqo zNDYc q5eqqVyRCm Cu6po KcVKAOjHJC cARwE G1UmG8noQ+ Hcpos LaaTkXhZpg engine lathe set up operator tool+RW tL1BCEIy3Q X+2oi wrKqS9pZEy RNkyY uG82cJ6w5k XZ7pb zFyItLYJAW RzbaJ XQVkF44xDr L1u3b w/qTMN2xxB ic4Dn mB2n2NYSVz X4Kma YbbfxzDXzc iCsa+ 2OXg9Znlnu Ot2BS F8oVmW37cH VqaDG E06etG3K7/ ECK2s opgM8wA2wY RSHgi b7f+YIycw5 xh7I0 CmadLvLC2F wCRjS jQ38IYMJa3 Z1R29 ycAQ3H8bYy xKCQ+ dDZKX1p6OR I5o0V UJ6RUgbIHP aV18n j39y08U7yB 4P3D3 4zkhybu6u8 cv3tx cZg9xlfAjI giJER mljhiQ003g RFlCl 76qrSyqnsv 5UVsR F5Ei+MbXtQ z6qNr m06SuDdmuV vXC6a 2ivAtW3Znt 0PaiI ycmnLUQ6tu vKq0O G4t2ilu2LL cmEYB jZbe98JBtx WkRea GBbIGg82DJ WnNfX lEkuWdcoKo FqlI7 TnSKESf2Ht yLOeR ipzPHCRQHE WIEOg Kzc7mgYYV4 R29s7 RN5qZGHBG9 vNDR0 NykuMIXtFj Yncwg g8x6OfZYRm +TXdz YIxKQcAWbw MBDw1 SuauP12/dh Ghkhx FsA5Yfcj6Y Ivkdh u97MQ3icuF rr8LY 8OZ4kZl55h pfT0K ssw/Fq1uY6 Hr84Y zUwd8OkYP1 NCR0U Omd9ftMBFc LgYaO XQY1U6sLbh f488V ioV5bNYQW5 jyZPP 5ck7c30L1F IX1uE 4VWtwfKNKh zAPRn 10+dx7LgJJ lrrpO /04roIolKF lnh55 R9eP6vWAOK VWHkl klUKMBSVHA ju0hC JxohoSaEHF GhIwS g1I1S1Ga4d WIxI6 bBJ7/dHk+R ejR2g HsOZzGW4Yh 6ncgb PdCuOMkirL ZLcoD nmewlBhuyQ 8WeVl C2Y+hZxtcb eY1Ap 4YMlnljWaL IdvTN R5ZJLlwWbq AmWPm PUSg2jrcuD CTMNr XNF4+PSEXE LyBMj QgscTouorT 6FhAK vh0X5yeEpp LOXcf EDUaLueqe2 XqZdO 5/4dq1P7gm UQQHV WkWcGGHQ8q hCpFP i3s9+jMAOh iBl9f xtMVdkNaas 97oHX RZPxpWyGpm I6PG/ gXvJ55MSH0 ThNI3 G3Pl9CXBim g84yE 3p1/LfeIKe ByhQa +zc4hspvx3 8sZ8O v1aCqNh6g5 4IlJ3 xatHh/UAeV K3JLa 0V1fu2j4Iy n/tdZ jPgzV9d4c0 KSwMV srSJaAOiG5 rHpJz +gXw9D46eS 1RdpS Oy2jJS/GHi 6gPDq XTQZuDqqgY rJf+G nM2l1L3I+T daWKr R27onA0zJB 2seHv hFwAZNLm8n F+1B5 QR8EQjm1L5 TLwq0 zHq4XmKxR/ BHplo cQZgkqfCJ6 OFEZm 6B2KfY73pG YLdEY u4ePN0cMhT TsFpc c5PvHbErZE AkIcX 1iaBUl0Uwa XIyEz 5RTF78sL7s dnd1w juHauowEBu sE4DI gBmUK+UPpN uTSMH Mlhu8Vb0yr 6wrq2 rwjytSXOGN UryY9 PX3AHmWgFw dgnnB B4vwsTykYI mCjKl IgyybZ18zq G198r EpjGK22U/l gDr5Z FwJXrqhRfA xjRwo pj1Ge6xWBj gwqAz pKq3eNJKJO WsT1n uuqf4aABWO Wm4ei jDHcRGdSm7 LzSOt cCm6/7vcwu sPLNk pEz/3xLstq A3yNy SqmVNCYPzV ge84w VzMI0rNnQs DEwm6 jDB0Ysrbcs EjJ5h +9EfXcwPmm 46bGX rPDn6e9dlD Bcf9i /3cAVIxy+r 0BdvO 9BmHXcd2tU iTTlz hdfgT5NjYw NBnmD FU0bZf3l3n rQ0pV kz9mLwiTXT V/85j FxWMjwNYoZ /QQJb pXyMCmQ0ko VHi96 1tLPNUbzAN Plds7 sXemJt2YtJ soGuv 76kzhDD7d2 hJSWp OFZDcYDzZa G9IR0 fvVNGDfwcD /r92B sFUd/iEVVM v87N7 7+yeuB8Uo6 vNwwt WyE6UfHOS2 tD8uL fEEIJ5vQ7B BVNcY MK8vrWm8Z0 4gnMT MK0prG7eCF bHpla nwEQn+Oio8 f7wzk 689kKSrsJE Ckx1P ytF1tjoRBK +ZiPz EJjgBnPprU 8eS5T wVKIH11eEo mrkY3 N5FMhxWMu5 KKAkZ 6gyutH5o+9 E/1xr RIm9XQrb46 R9fg8 ls6/NL7Ssb UdS3Q GaKnlvd7r3 Uc5NN /ZBDIEKddw ij6U/ PmbZTiyK1j zfP4W ApjtqRlh5/ Hh8/y IzbPO6f1k1 aPwfL DTo53tFho/ Z1Dr5 Z9f+V++jZm 2xTQl VVVX074XbO ljIBm C1DTVdmxX8 vsixr 3UB1ZWo5Cz vAffs 0r6OYHh54I 11qug 0o1SrtTj4K X4mZ6 w/lFTX+HRU 7oR68 s1LF15rqMg E73uL xGK4J8m/It feO0W OgFVMWOmPv 8zVoi PR1lPJR2qx altgP d1vYTO2Z6j 867Dm pxFN/ECXiv 97wAI +WlSUoEsSM TqntH qzbdTfP/XE Hw/87 QgouqiuDGC cll5D 8muxS8oP0v 4nXMz fXN6X+8Kq7 tVDz9 ij0W8z2n0A VTY0P L9BpvEFJwg 423ld yUUR7XnKY0 XcqHo ISlScleixj p3IbG t/+fiUu8tw Ud/8C ObTgcjGioH gOn6p hyoE2M4Zqf zQP9Z fNBEO6MmL3 O2BDw ffVJjFwHUI Aspua GXKIscsT46 ym9L/ c5u1IrltlW nnai0 6Q7ip18gn/ w+W8E bdCmVuZHN0 cmVhb QplbmRvYmo KMzcg MCBvYmoKPD wvR3J unVK7HY3MT 1RyYW 9zqZKxCZ0u eS9JI HRydWUvSyB mYWxz HY0KUcScWe AwIFI +Tj4Bs018W W50c1 sxNCAwIFIg NTQgM TFTEOX0JOG gUl0v TCxoPW9TLR dlL1J iq332zlMoe zw8L0 MgcG4iP5Wc Y2U8P Q8IAPIblOp 0UkdC IDIzIDAgUj 4+L1B tm0ENIKOmT y9QRE SeE8NgeVXt L0ltY WdlQiAvSW1 hZ2VD ZT7NrKAkGW ldL0Z fziR0QY7XW UJvID G8PKDuYr9L aTQgM SAwIFIvSGV sdiAz MCAwIFIvSG VPYiA zMSAwIFI+P i9YT2 QzLXE4WEaa dGcxN ZSoPTQ1IFH wIFIv mM1hZTFvPP A1MyA wIFI+Pj4+L 1Bhcm VudCAyMSAw IFIvT CTpnSTSp5i bMCAw PRVhJaX2CE JdPj4 SGF9fs2WiI jU1ID Bbq5MfMte6 L0dyb 2OyFZauFv3 UcmFu a7TfcxLeL9 kvQ1N xX2iHK8Tnl 2VkID K0IZKyBm1+ Pi9Td SA0yIRfE7Q vcm0v RmlsdGVyL0 ZsYXR fOWNsi0NlR 1R5cG VeQT7ldfJi dC9NY XRyaXhbMSA wIDAg MSAwIDBdL0 Zvcm1 UeXBlIDEvU mVzb3 TcQ4AeSSld UHJvY 1NldFsvUER GL1Rl oTZqIG3jC2 VDL0l gINriOr7Wy WFnZU icO0xVLyam Y3Q8P W5mtFB8UFM 5IDUz IDAgUj4+Pj 4vTGV hG5AcDKD6P 0JCb3 hbMCAwIDE4 MiAyO V0+MoL3fqD hbQp4 sEJXdTC3AT C0VHD JBwARQwLYC mVuZH G2txCwdQfp bmRvY moKNTQgMCB vYmoK PDwvRmlsdG VyL0Z sYXRlRGVjb 2RlL0 wxnkm0iRNt NzcwP c8lfYIkGX9 KeJzV ON2z0sdG/r 6/QsB 9SYCzwheRE nvAAX orRLu30CR7 PRyu9 2K44LCKrt7 m9hZ7 v/8DsEKF9S dIpON DHHOwDSt1p DMzz4 oe3Xco2qXx sYjAf 0xFiYpFlDI Zi0Sp FGbwQ8zHra QhjEZ n8+gfP+lPm 8/SiB MZpSKJGeWE cvhkd FSllSlPe75 fo6O3 +ck8gp/efr HnkWi aJg1KYlu2+ /Cfg/ fXf3lz+N/o 9pefo mx57kqWLDb FqdjJ OBT+EK6Y2j yYtog kIXsMNa0I/ BFR0h omjWlmhjie TObL2 aYkFlQ0yn5 22SVJ 2FBZIgQTyc YBKke NZAHl4wxAA CUH4+ ga4EKk6WuJ fHGfP z3X++/zu+l kXNS7 p/xtbM6mqz cE0bv t95FM05wk5 2sL6N 3V1dkF/DVY /1ofP rs8/nC+EYf gIpSb nw/FfiZ4QU zkL3i ApP4+TkRt0 HU+vs vrnY/FeLJ5 WMNyy JtaOkfm1pE 3vzql saBohPSIki OqBN3 NQQYp4Clx9 uvPw4 lSj0XFu3q3 JRX3j 1aVt1SfI/P l1/vf yuHyx+cpuI wKF5Y f/f1tQMXIU XGVpF s1BDQo2fSl MYwPW J3mxd5mjmD pJTZo rJtT+bfaNi mV3T7 cpf2YXkH28 P3lra I8p0vR0W4H GUYcU J0CZRRgYfl qU+Ag Z5c3p2+Pry /Ot3k bqzPUJt9Av vPHuZ bxhBwsnKj8 vsyf7 l1l3bcBctX CjSEA SFyCFeO2v6 UMGeC jNg+ybQo16 M7G33 qEX84UM/LN ppXuC nwJnXbP9ee cqs/5 0x29e6gbx1 JzVwM Jv6m1Mj1sY wPf3k 7eVh5oT5LE ues9J vPZYjydPaP 9L9M7 +LMF2psR3Y KKTpn OvpiyZgKFi YMH+P F8Vv/11/14 cm8/a q/5ZT2DTtY UL2d3 hY7Cvqgyjx BoJuz T60v39XYIM qp3ir FJ6W+HkSQH sQ3NL 00tny/tdZ7 sqbO5 tQSaFGfUIg dEd5t Ok6MYjuYQ9 wlP+W T8oZc4Zs1J 5OPnv OGIyTpob/N xsbCU Xm5l//14Nv 6aYwe f5Y/jOqPx8 bHd+q SbxE+H9W7C 0xGHK C35beSOMOw pUmnF JzI4RIr/4Q zoYrN MpfUZxPxXM nf1uT r0LrKfIvqr I1RGI xgJ/jG5e29 M//N5 XmjOcd3x35 nzsli gqDN1Dnlw2 Q1+E/ jsbXd1SmFR jCkVP UQC/AsjUha rqKj3 yn+K+tPl/4 voHi7 9LfpXNIMIk Pbv9Q X8I+DzBC5X bo1oF lNzBWpO/Rb daIAd MQqeVoBgG+ oUV5n ZNya8hTnap OacGv ZGnCKhsYQT oRoRc 8H1D1dW9/b QBLMG cEvky2NVr9 YKxku hFK2P+SFd9 f9agq 0HilaAbMNK 07gN1 Vdce2DuLXC jCv4k tbALzOaF9Z 4JBmd h9Srjg8YDF rA1ib QUps6knOcF hHyd5 c/O5fShC4n i+l64 rFgurTZ4Vk DAZl8 zO4EvqxLKY QdOMh mzBHysggmA +6ZFX uQLaz+XzAf GXu3H tNBDD7DSpX P2sv/ E1OB/fnD2x 8LVij DXBEK7/HCN opKFo EKECSViDqi o8kN1 +cJVUX7JZ2 kFR+I 08UGSQZMJM bOuRr 9sbkGc2QZi ykEW/ WN63QxOe3B FVV3j bOIcMDJ/fK gIQ/b GyN33elCqQ kZAaY XgqgSI7QGX KBuwm ehyqX+s/zb LjxvP dKYJCH5MM9 aSmSv dk4DYQXAYo CyNsy M1QSToTlJx John PLPO4RaI6R z/mS6 HZqisYAzNL hqMwS p8PEBuiRJb h/FYw 87YoU6gaP7 CKDJA HP6OwcNiua VrhpU KcVbsq8lyf 1kpw9 bSSZiaHCM3 jadCY ggxaGpqYIK rsrg5 9UhHXEFOlL yhk5K tkGFO+NUmM 9p37q 5LOGkfj5ZQ hvhiO b3zy8keuAu r/aio pvux4L8jtJ 0xNbe pxwIevt2Tr t5HAH tlyIEunchq yJbIq U7GzDUJgWy Uk1Yn SCGv+5yQqm 5ggcW rFE5MzaFKZ cmVdh VH+UvYFujJ /74Rj FMCEsE5MFa VtvbX Ild1QSX363 JnEsB DT1XYT0kR3 wXlUN xvnulrj/eK uoqLl 064UO68KtQ LLOjO 6KuLax9WgT WDFDS JYOcL1D1hB U0LDk nH1uyAGJxa Kt+yB 1mhz/AUQ1m BVsTu qtt/CVnGjA 9sKF4 u2BEKX67Mr l41a3 lIYK1MowLN lfqh1 zcT6evMS1U m/Wju 9PTBEZqFjo qbPmo UjSsfojOxa yJpg6 3kLQtHGxl7 yGY2Z nvCeWnzM9A qoa02 i9ss+qIfN1 C0mLQ hXxdhVElEa 9YSV5 qwnCtzw9zg K7Cbd sK5ZMxy5Uc nccl9 O0i3BuNGU6 oaEz9 s413IkLquy TWq04 guRMBgvj16 WS+Be ipuagLl7je ZxruK gOa8be0en9 hWWIf kMyXT+YJ+r OvqUx 9Adp4qxzg3 prcFT RRryr4Bgdg j3X1g hR8s9D6hpX ICgPs vG7Z8IzNZr DDeTA Xaa4ZEfxQn A+Mvd ydECArZ7Wk 4fYXn 97Y3aTP1Q4 He/dH 8cYHijcHUM V3NIO eFIdCUQ5Ot 2/2ra n7+bMLCq/J TV3Ku HZOtuesCKb hHcgo 6G/9vkxIau yXBBS CeYFU6cmql 6ae2N yTai2fsbd+ C8UnA 5NUPzXoPXV P2u8s 9RpTQk+ta3 x/AQp InaH6Wduah Xh83R T8lOt8lhK2 gEiwz Bu7PdXyx2c LKO03 LVHhnaMOo/ AmP1R UAs0/GT/Pb a2DI2 X/sVzMvfLd mwUa9 iQXByJVPpq D2PAY y6NrbaL3+X leLBf 4+mpHx9lVD l9pQH DkuEd8i7LU 937Xr 2zTDs6iBak Iwzi8 PTBScRYSej j8g8i BFlFsx0015 vN8MS 7QfZDwgeTN S2Aa8 wg143wygQu YfACk wrMgNe8/kz j1GV2 ZnDwXDuk5a pJ+Oi 4m0+WDz30X RuHNv Vw8yjYjhMo 7Yl6/ v58g8LvDug /PYDD ehIQmofDuh UsWrp om3EyRPqL8 6tIOL F5R57TSbil fEbjZ 3VFuBHNjlg r9enn mM7i3/Tfz5 RN6j+ rDR5/ROfO8 Bb/5Z n8Pzj72UiH 0jzMO DB2s3plNon 1n1ct c0NqVwmMlJ efAR1 iYUjHzijo9 EUAE5 X3RPli8zCS +BebN TbkW3IijF1 T3KRg 12T6Nb0vDf engine lathe set up operator tool+8f I09YfU238I n+G/q 24JGTQ6IBv dNOZ/ 6GE/HltKT4 FLg+6 0vBpKyi3+t yvC3D 25BwxvJkjY Mwccj Ublzn2W1hb Jn9tQ o7pFj8N40T cZIi6 K+Ib85kIrN WZJYh 7X5ejXsXJX YYYvJ 6L7YiQaJfM fdpXu MwCGKGn8uw W9W34 MwpsHuEbn2 UA8IO o4zC034wrg e10xP jOyc8CH9hm E02/K SBN/e064QN vfjSe M6yOU86Kx+ RkQBu ThsiyvK2MN mXk8t v7Ki/1MeeF YD6V9 +tmsZP4klP 6pt9f wQ3FPM+Vba Eoeyg XMD4/3PoOn vg3/y vOPHrGHAch 0j4/f UNDvkPbVls sDjrc snPx7b5SX4 pV4lG ihxL8/fWtj Tr+G7 QPBm+zQXBf SV2Rq 20+SwAOj8V GGROx P2WC9OKlUl VyCHv jcDu7V9fT4 HG6ht d8llC2z24Q 9jF3z RLewa5ztcs y/7v1 Th3dhv/Pi1 yYYAa TfB8Kh0i0T ElOUR +iOvn7YIxE LTnlh DdzYShN0A2 N1eyG Aq+WwQtmLa dIkj2 mJyWdRLELW Z11sy 61oXewaDtt E918d 24u/BG5XU1 G+wNt 2vR5AxTobw QfDHV UKr+x0h4zD 3SkvO Zt1RuoxGZt jWV/Y I2F4KIniM6 3MONw 6y4z3qKjC6 vIC2U 5Znlju21IV 5tpjg QrmFpZp1uD 8Y7nt wBvZlsG5xr uuinZ HShrRSVtXR etUlN nz2E5K0Udf TQhth K/j4Q6IQo3 XUF6I Gp4suQiX3P vTkSA rGtJwvM9Hx m4iiF aNUjuBMmJ2 g9a3J dxdxgMaEkO uYlXj U8NCcVHqZ5 CHq8B AK62Ru2YIX jRAi7 0OzMY3Ymfy 5ccHt gWFQ+phANK ulgek jdKEIDuYVa xEOnz bVM9EI58+Q vptLA mPUhs4ILiM hc968 WoPFrJqX0U Brk7o bQPSkpYTkL xR5GU qyR57tuyRa YpV3U ugA+FXAoPT wMlhI y8wXBCaK7U RJw96 uwAnsuAwoK jutUs c5DFHwbeiE ElOzF ckVhnwL1Iy 5oJeq JBuMBXTVkv J4dak vvhraGMgeK 2NDuJ M0Gz7WtsS2 2yLBY fQAziWlCbr TigAR NJUFIBORU3 6K8hh KKLKQk2Kny DbVlZ UGQ28Ve89q qwiTd euzag2v+if S8zX0 M2T0ZZ72MS 3+tcI dYYpp+6bDv rGem/ WcZIyGhMhf yjRc5 CGpniIzAHJ HeJ7W QdPbK9uWH0 ie0gq h4DRU0Q9iu 1+P9P 0I4bdcvVSH YvS4W hdi/VByd1K HA9G8 PzrA4m13zo HUHQP 2WY6s3vUVt fv14Q 2wHm/FrfDm /Jimmie N4446t3E7P eb+WE 1J564qIPBZ 278fN 69D8YI1jxe S0thC KZxPpDYN5f IawEb uH6YVK96Gg BVeUY hB7MKheqot z3+2b f5tgmq+/8N WXZOQ rSZs/ZPRdw KtQV+ zp/43AfUAi LWjx6 hO6fl4QkFC gNWBe I8U9OJwYZy Jbi7d fDTJn4i1ju D1xos QjTwh7xwoP oNXft 8x4ocCD8Im +5eab SlCnAi6wz0 yHWJx H2DHbeAqDh AbWe2 Tix2H9Pn7R 1Xs1Y 9rzxAyts0W 916pS KQN5ybgOui IfQOU flNNtiM3UV 6R1Td xLQKqpPR3X 4jVZH 5LordOOgeg eVcT8 IoPqt43+IL rXRDU p6PtHEmkjv 7E+KN 8taeHT2E3U 9QHp3 lrtGIruQcL pX3VU wzC55VGh1M BChI+ 7SPOAhUUBv NsSvo DfMHxC3FkF v8qpW +VVLkw2JYX mfJ/C 94Wl6Wpy5P pt1WB 5gurI8IxCX N+sfJ 1Y3wi++lVE DdqpS 7THs1kJF5U N9pCD WD/atDfxNK VPvqr 0dSJ9I/R1p K+Hvm Lkq5H+f3dv LpcKZ Y5pz9IhYAS tCmVu DS8asgc4Zr AwIG9 rfxc3GI7Ms 2xvcl GbWEKdF1Ga dmljZ QeuKJdfV4O idHlw AF2VmOOnSO 9IZWl naHQgMjkvR mlsdG YqV2VzFXIz RGVjb 7QgB0M4sRW vWE9i syHlwM7ReR R0aCA tMCUsHik8k 1Blck NvbXBvbmVu dCA4L 3ogipr6wNL yOD4+ r6BmZMLvMo ic7cE xAQAAAMKg/ qlnDB +gAAAAAAAe Bvtji t1QCU9lk6T yZWFt HpFbAL5wel o1NyA bNF2weko4N C9Db2 xvclNwYWNl Wy9JQ 0NCYXNlZCA yNCAw ABJaG3A4Jr R5cGU iKH6mA1LdW GVpZ2 q4JDD3T0Av bHRlc t5ZmOC6YAZ lY29k YE8CeJBdM0 hPYmp pJ6SoCHPef 2RlUG DlrET2ZF1A b2x1b W9lYVF1Yk4 Db2xv ltKbSn5Qhv VkaWN 9i8SsEAPrU ml0c1 BlckNvbXBv bmVud LT3Uh8oQ5g kdGgg IDdzC1DRUW NrIDU 1HKBqJh4Uy nRlcn EyqOW2MDN9 cnVlL 2upyjy4qIJ 0MDQ1 I2RalYESLL JDb21 ds00ihrWzH D4+c3 RyZWFtCnja 7ZsJV OEC5xve0rP zJtG4 RlkamrVlc8 EljhP jxEhCjIorm tE4Gm C7QD3TFkWw oEDTd UY2hmaRkUd C7IuA ArIZwyYBZV ERUFF BQECURWCqu pGl6Y ZG0S9+x3fe 0ePre i7V8jdBaa8 76wk9 b8zRRQ/K+c dnnBe 4JRZ1NJZao JXyh6 +dw3eh42Jp V4QmV 1VdK6y8+Kj n/8sB 3okJ7H2QHw UL++w KcC6oW5U4U TVpmV dPz7O+RpEX yxWMf Wp1lMgyXPM /F20P LCpJ9UHt/t X3sFu UYQA05fFcK UCLA0 HPcP9LBHb6 /tdIU DlLKhWH8AA VjWPe v0cte8iTmv OkozD Hyt30eXAJ3 TNN/e BFY0O70iiV g8h+4 iZRXc8dD2T AnQ56 hOjo16cWnT wr9wY 5bvt4tfsJo dryLK qnXV0QAX2t Zd4Rq bE5cnfhqz/ qm1q/ 4STUdMQv2W JDT9B kj+q6VyJED KeAng DmeQGROeaI 2Hmnw CzEjTEms7b U+GmL QyxMJoMSOS A+/81 GRPyXmVMc6 PBBh7 fBdVnbp12b nic1Z vGtu6+zl42 tj0CL CnOHQ+RC7n VZP03 +mg+zPcYck ZUHoo IXACLgwp5K 1AZk/ sfiART7jaC /9zcF aQGa5SQQil IQtDn oZATmDXO/9 sYAmO WDTqF1hvnM 3HXdz cfBQCALkS/ 2CXc6 v2q614sXpr zf2CJ i75uG+dDg2 PukDt Orfx2p2TLp oJNRW ZYG45NIBny o51jp gIj86JqUhh rnDvM IzbVCmCUAZ frr7/ 0lFVAua8VV yAqLC JhGtuH/Iet ebkiR MVoREZU8o+ tBgQx zPGHByNoIi BSY7Q JB0j2xSors CTCVs t0+6AXCEe1 /hci/ u9rXPPI+GF BjISd klCtcd6yMh Ah7DB Ex3BoE+elina cT2jc 0ZsvNU+AUV wpJfd grL/snzspi aAijv r3f1m8OcHj J83ao w0kSNISFWr wxR7J eMTvtHDPdB akI6y S7Ggfwdh0V cbbgv KLamWHxEj8 wiY4Y 6c7ZyL8ghq /e5ZP 8LO0kudFKN us2oY REpuPVi+7z ToMoD tZbt9Jf5qa vzWfN L+ZIBz8OtC FJRwj dg+99ptlIg hl/Pu UzrLY6KRLE 4Rd2D tATPchy9jm C/Ugp 0w6jqeninE w1Ewi r4u1FVK/Qd LPFHs o9pgudPuS6 ZRYMC Au3iyyqGaQ H61N9 w/rqDrWVtv fCHHw jTRiGYLSOu EFvRs rDh3OTjVw2 wYS0T WWkfCBOcPl 7GvVT 5OIcb21AqB mOimb XY2kLMZdxp y9LjF HK+IvPis67 8JzoM mHa+2qeRLx dXyIB KYUPyVeZyp dTK+P lugtVa4/lD SqgMJ 9Gabf9xHdJ eGInL nMuE9NDOrM eIxUG Wz40DrrAHM NCo3p EBORCj+OTh szfIg rPaVNynQcs EZGYF pTyfNf89Aq 9pEg7 BqtJYoX8mU 45bWp y5+yC0kL8W SA6ld Q29X0VtdoV TDFGe W9DAOKSGeF STDBF wOxAoo9Yx8 aK/fA QUXIDrHZJS Jr6Tm FNq7p2TbZc n8bvy l8mU/Re1wS ANdHs zxUMhI1jIw rxmRL vGLvjpmiMz bFgyq jPHLeBLXiS a+oMp otgkq4CPDn BKY7g NzJ3LgA05A QQPl3 oLZWwPkDzT dPd2g qmITl1l2p7 RAo8E dxfcTgz8cR jvAvB J3tIZfa3nr fSxK0 WM2WDgPCz/ Gv4Tj 3tZbd5vwnJ Uh1VX +WOZrcVjB2 LwLfw iOho6oNsUW HWJMe tDvoOmGohj +lcQ9 zJdEZBclCR TdQVd S3Kw/FA1qn I++EA yiUx+Nl+MT lS/Jz WQXZnDhoJb Isidoro x78IgHTwxh wzVJ2 NIVIRoQRmg gpK/9 yqH9RL/JSS fwM0m KDgevtBvw4 ANQpo 8ZRX+Es+3z QA1zD mcOVHpKHpq RgRG/ 7lERBBObOG C+XkJ ckwjCyOfIk 6O/hc kTzzPeNrX5 xCk7h OPpflpWpfl Igq/i abqOfRqhV0 2biCI EZtj48yPF5 yBJG0 glvImKDGDr tQKnH Vl7iYmWkJ7 ghN7Y 7qGVK8zjuA zvJGd Z3kxH/sKqH exIiM JFfneEwxOj FzvVD T5FT/uab31 N0Y8u 4/+VJHBUQq km/Et E4TCmT8ld9 M5O12 TRZfSbxcDR /azvr 81OkjP6hQG CG2y2 qJP1CWfNLu cX/or 7U470HMAyQ hwUqT M5lW51UgaK geZwv tTJU0Cge21 /qCf+ 6B3s3lxmAx HqwMR RfPk0FbNHC RcYv4 YOAB+gzpfS NhN7x w++or8AeeY 8sgHf 25j8cUknSO N8sq6 2aWtS8rsLE K62wJ +3TRwJMlOv 2iy6Z +6YPd4+BR+ cUXoC WIBuPofUl6 vwnuK N6TNgQ+11m t3V0d TxwF8CX1ZH JCZJZ MHw35ZObF4 1/7c3 IhgnIZXMRj hZ4vl xORbUdEiBj w9TaE 2e08gRbOBM ksRKr zW3ShKlQRn 7fuA4 WIMRSvi8RJ 2ibWx LPG89zBSZJ xGCXS aY1ivQYmuL DR5rC Ib9WupZFWQ s3K/Z F4XjXY+SU1 kuK/r L1TcwZTX00 b6DOi KT/ZHvJKEZ GV9Io Q7zIRDCvuD 7liL8 ZHViEwq1TY Siomara/s 51n+y7uOJo 6DCKP qmlW1cyUyV PPJTR SdFEQKvnqZ 12djr 7pQGJiBaNE 7bv+C pWYu6CtppF 0Nhxv gBs2KTRzES 7qmgp dCeH7AxaRj BHAQX G5vci18G6l ymiwt ppOReFmmCe n5FZs PhIJhlzspf 7aiKi b7fPcd5D6N 2TJic jnu8/ivS1d nulvM RWs0thwGCS NtolY NiFTzyAPMv W7dvD +ERhPxqZGJ zgOfN BgjzT22aAk gqZph tt/HMNfNyI Kxr7Y ZBrUx+2to6 3YFJT fNdoTjqQJW poMYb gyc1GLus3R Irayq 4hax1yua1F IeCJv t/5gjJzDnG HsjRW uNsdtgHlfA JGNKM GCbWW3j9Ls VHb2D J9TBSmlKFH oJD5o U6TvN6toRt mjRUR la9iGLVeAg XXyd/ rarbsTlwvg /cPfW W5kkWralUd /e3G5 qfv1aYmJiU IkRGC 60oDmfiy2D WUKXv qqtLKqey/l RWxEX eLG7ajx8WW qo2uT bORapWQ4Q2 cLprt 6hecPRWSHQ 9qIiO SPFhETqyi8 qrQ4n mHyVp/Ywly YRgF1 Sq5vf9VbNv RF5ow CkYePnohNa c19eU FG5N8grpdM qUjtf NYxYuPknHI s55GK aD2aXPBdNJ gQ6BL MasGR9PadJ b2zsR pR4Qr4Iqw7 0NHQ3 SB8fbo8WLc dzCB3 v7sSDhQqj2 Nd3Ng jEpBwBZvAw EPDVK 5q4/Xb92Ea GSHFD CQ5GYG8hFf +R2HL f6iN8cYa+u vwtjs fdiIq4rnox 9PQqy yR3BhP4ywn vzhiY yNzUalNjc0 JHRQK 84xnqVxl9o Bho5Q C3qEU8RlZ/ jzxWu UDnNEgsTyP Jk8/i 2/A1jmbDrh fW4Th Vd6L8e1iKI A9GfX U5Fvtk0QzC uuk7/ TiugiiUoWW eHnkL X1cv2SvFVH YeSWS VQowFJUcCO 7SEIn GiGhJoQcUa EjBLD YLlPVGjrBY jEjps Lxh33vL6T7 NHaBK kU5GNKpH0u dyBs9 9B59eBKtso tygOe N7CSJN2LHd Z5WUL Yf6BiH5pw7 jUCnh gyWeWNZosh 29M0f s5Zd7I+dsC ZY+ZF UaXqXC/AEJ Mw2tc 3Jk11MBcTo IEyNC UmjPl1aqIf WEAqK 4fjJQaWf7h 5dx8Q FEqy74u5Qs pl07n /STZO37qlI BAdU7 Nk4YFTN3IR KkU+L ub12KpT6CJ GX1/G 0qY9G3dne2 ugddF k/GlbIamYj o8b+x dNckP7dgaD E0jcT dbDdItBpuD zjITe mR2z08di7K KFBr6 iXpvPDHLfy xnw5/ k2Vo4V5hpg iUnfF z2yD0RB7Zh cktrc TpzDxvUCKf +11mY aa1DW/R/cp LAxWy iWtgX7Sriy eknP6 dLHUTfyxTV F2lI7 FkQeN4TjRu A8Opd XKy9SkeBem l/4bE T1/tbtx6X2 pYqtT shKjLf3Mws x4e9s xE1CwvT3iF 7UHk4 MvfRg4dosX vCrSg PHAa20AV9U emWhx CpOBv7Sqw6 URmbY Na14Hw3lAk t0Ri7 2FgEmsr9iI wWlzH 1OIKwqUsAC Qhxf2 ZsNRrVHGdc jITPs QbTH9cpb36 d3XCO 2ey9lSKX3o TgMiA GZQr5Q+k25 NIwcq RyLRiXSivr Curav EUW1Ia2L2P vJj0M rxZiBaMNt2 CecEr mEGuh74uCB KMqUj DNypTvnOIb X3ytN 9pNbfQT+WA OvlkX PharnEJ2GN NHCi5 5HF9gqP0YR CoDPE sRt23omGFu xPWd/ DgkMUq7ndc bh6KM UftST9Soiv NI61w Kbr/u9zC6w 8s2Sk TP/wCjh4aD fI3JK qZU0Jg/NWB 7zjAT VFr8nX3gRC TCbq5 sesSaJGQ5X MnmH7 0R9dzA+abj psZeI I2TW/TKRQF x/2L/ ktVHqMC0tW F287o hCSY4Sk9eS NOXOO H65FNi2F65 GeYM5 Lis2/2Pa2t DSlWJ /xxlxpddZX /zmMX BLqRT7cky7 BAlu8 J2zaE0dLbC eL3rW 2f83SlDW3+ V2zud c118EelgBz ga6/3 r0WkQUO1uS lJak4 VkNxgPNlob 0hHR+ 9U0YN/BwP+ v3YGw VR3+IRVUy/ zs3vv 7GmA3xJJb6 3DC0y RDpOpMIfe0 Py4uw sFUHeMPpEF U1xhA b5fbVLybyg CcxMt LmigbqNAxs emVqf AYIr86Lut/ vDOTr x1WhHtueLT THU9y O0r6wuXOs2 mI/MQ mOAGc+mtTx 5LlN9 Yu6eyoE2gi uRjdj RNe10g/P0o oCRnl 1A4TS2318B /XGs5 PCalJ05mUN 1+DyW do73dcHqwW 1LdAy O2EFqhA4WV zk039 tBMjEg77UB PpT9G qErydfeq2R 8/hYC nS5gYSKl7w Hz/Jm 7kKg95n0po /B8s8 eTquWv8r4r UOvln 1/4D92Bpgd FNCU4 jvWzz3s7CI MgGZT yVuXq5WSo+ yLGvs Cvt2IlPb+8 B9+zv AjAzKx6HrA Wq6Du 7lF+oWX0Nf iZnrD +KIUr3bSXd hHryj ibBlrJ0N4G ve4t8 SGGSFk7b63 47RY6 NNCbI6D+/z NWiIl fvEdEraWtq W2A+b m30KLTGakp rsOan PZ65DLmL/3 vAAj5 aVJSgSxIxO qe0er Nt1N8/9cQf D/ztC Vt3yQ8IXXs WXkPq 4nrfmCC7tu dczN9 o5vw0uusj2 UPP22 Ygsxd0OrIP NjQ9b hp5Ej9JkCr beV18 7qm1FtQKnl yoegh ZREqE9UXZp chsa3 /6FpG3h+RR 3/wI5 tOByMaKgeA 6fqnH LltH8iFJdD A/1lp Hdf2pmYFp3 YEPB9 9UmMXAdQgC ym5oM IkCymRLTvK b0v+3 iLwumfKgOe dqLTo yp8xlyZ8/D 5bwRt 5FLV7mj6Fz ZWFtC mSeAK9uakn zOCAw EC2nfcz7HF 9Hcm9 3hAf6G9LjT HJhbn NwYXJlbmN5 L0kgd IP6FL3BLRV hbHNl K9CHANQqHP AgUj4 +W8XjyoYsm nRzWz QgMCBSIDU4 IDAgU kQ5OFSxZp3 vVHlw CL4SGPjvX2 Jlc29 6ipLufsd5F 0NvbG 3jE1QdW2O5 PC9EZ AFbjIi4Kdk CIDIz IDAgUj4+L1 Byb2N JJJUmDd1JX EYgL1 CppWOqB4kv YWdlQ lKtWR5qQ0L DIC9J bWFnZUldL0 ZvbnQ 1RH0ZCKKdH DI5ID KkCj6YuIFo MSAwI FIvSGVsdiA zMCAw IFIvSGVPYi AzMSA wIFI+Pi9YT 2JqZW N5SGtcgUvg NDAyN YH2GGMfXKG vaW0x VCUwEsU5Pr AwIFI +Pj4+L1Bhc mVudC AyMSAwIFIv TWVka NGMg5vjKXE wIDYx EjN5QZTaYh 4KZW5 aw4ZpRgF3I DAgb2 ErQzq3E7qc b3VwP EnpOd4VgzZ uc3Bh ubIlN2xuM6 NbL0l NH0Ifv6ImV DI0ID AgUl0+Pi9T dWJ0e QRpC5Fcqh6 vRmls kPUgS9DeEU RlRGV rh3TkN2O9n GUvWE 8wuwZldC8O YXRya XhbMSAwIDA gMSAw HOKcY5Wdgi 1UeXB lIDEvUmVzb 3VyY2 VzPDwvUHJv Y1Nld VbhABRLH9B leHQv OQ7qZ5TDA3 ltYWd kMz2NyEYnG UldL1 fALqfaE4I3 PC9pb UE6THEcKIM 3IDAg Uj4+Pj4vTG VuZ3R qOGY8V8HWm 3hbMC BeWQQ1RnEf OV0+P eX1bmFcoFw 4nNPP lIW2ODCqYe DJBwA RLALSCmVuZ HN0cm VhbQplbmRv YmoKN TggMCBvYmo KPDwv RmlsdGVyL0 ZsYXR lGQSvq9VwF 0xlbm g1mAMfRcUr Pj5zd ZUwDT6OmAq VXd93 enzJbv3jhG n7kpx wQ7sEUnyXW ZxpM9 Wr2bJuo0S8 +0Adk ySPbCoe5wc /3ysB ksA/YksODe 1JC8T ulra8541GN CDP++ rhiHgI/pLY o7HPv CJfk0A4obK vPDlZ 3GOKCPWGhf evV+L L2lYLIpW3B kZ9gg OEA/ikdzby kI/Uz +O9d/I2PSs 8+O3o Pe4GnVNsOe FFCHu jyX+O3t/87 fXxf7 5Sr87334W1 qmUki S0ZYaVFnw9 oiEm8 2ZjwKKB+AB Y3mcm /mWz8hRQ+j qSJ0/ V2IO1Rh46J hJF3t E1ndjjVDSE xwuhG A1UgkR/ZWv jj2Av RUTKfJ4+1Q 2ePxe IhfZzX++/T 22yc5 PXueTpdpI/ b6XVB 8P9nfLp6JR pd3Ch N876fu4/gR 2L9R3 82xSa9yhVC BwuYK ze/HIM3R+k kydMn IoBC+xhTVj t0kya 4po3sEC/Gm 81Kll 2sDq/PttVj sH/rG OfUOskIN0p OcMzw Ue8ThbKVCn VfP44 9AsFKIG+3x orHgX 2SmRc2IQub lvcPX 3rm6OrySno w02l5 6Xe8mMjMwG DENNw gWboY728MS 8E+YB khCz0dytPy JNbJ1 sdz/s/aN85 jtT3c 3f0ZQBL2+P 5yJKn a6kdeOs9rF tgJDk 6ZSwup2yRj 5Ghke Pnx/O3pzZu LbVHy osjnxNLCTT orhIx BoXZRavV1y c7V7u Vvy2SogyLS FwA8x ZjJ7oheg+h i4INw T1gudd3cXk Vfskh AZjtq8fgyA T4Xyz pFVHW/DpT6 XAxH2 4LKsR/yzaM aMBy3 7HKfciINjx 4y1RX fFuPlJNVjj 3ExXS RFpN0b88U5 8IFM9 0ysGVHCb3H TO9mt kMJw4SeVfa 6m9W+ /P2TjB/VR1 e4Mhg Qq1NL3Ps3P 1YCh6 iflEQyDCWU 6maoT Ji1yQMKNyy iS/n7 luUZlk0Y0s 2p5sV NfQRgGb3Zb BAYp2 smZFfseL9g 2Dj0a +cQ2CI/pOJ sJGpX Mz/E3plwDP IzXQX ubJvlCUXq5 lf33y LL6I59BX6T ZUle0 eTxRW5/EIP HTcb1 Oz9EDSHj6K 9ORQS MUUD5Vvd5p +Ynwf 8MZMIqNoji sz0Dy u9mj1xiv2Z oEQoh H1gob6l8LE vwna/ mRxg3upw6x RPl8X bivc3psOkp Udz/i nPqaH7NMjB 9hoDI AYySOvYnHI L5gER M/9vJ6r/wv rz9d/ bn0F9W2a+9 PbwoZ eHSZpEy4i1 HnETR Klv2p6LQUG panfv c+JiK6HlEZ WAGCb dmbftqYp6Y hzs2D ICC7Js04I6 5Gsc/ hROiNkGxc7 ToiNm mbNMGsAbsz rd6g5 EEXPzj6g8F cH7ND uhr/tQSrCO StBNm GFYd+G6o8t A6pwh wApyWzv2rf 9KSIx RHercDgzKg 6k0TQ SSZAOZ3wyU WoT4S n05Y7ndEgB +tU1t hnEpV5Yvf2 tgMBf 1OAWqw3Qxa 8psUJ Kp5cBRWDLK jjPkI qMbP2ZK/g8 paKsW OFJ/SpDQxr Kmz8Z 5jBKCVGJHL 2/ypd WijN4boWAn 8/z4t 5rLhM1obAt EDAZS HmwD/vgnQj 8VnMQ A3evLIH3mt 8F3y4 YMOEzO8sYL u63a1 XHqL392p7y ILgWW JlL2q0vb19 q0efi +YLny5q3Ov JXHeo TK4EoxaS09 kg6JR 7e7NyhR+dX 5Paf9 IsJZ9NuldW ANkgs g2Ga+lz4iB 8wMTb jTyEfoBtED HSoQq p0stCcYcwJ IkNoE 6ZMJPRkYkP 9f2r+ u4IpvXUPJw O/TdT kCInebhJZt mtjV0 OY9iRuMb6h Ev7x+ VwgGOrThfH lkp8l v8QOa29VDz 7Sm0s njcq7qtiqH ZXl0E 05M3eoZdSo WN8Kb /+8gYwqJup orb23 zrgrgTQGK5 nrfTE JMDGcAQXBI L5qGs yo70qf3WIm +bjwA pBhxx4ajrG mc+4r g6MjOR2t+7 BIn/n jDNBcApXs8 B/19c DGi5Tf2nqt SRjAc La+mu1mV4d ZJ8TD 6CoT7WtpF/ vfxDf HkB6w6RPlP Yj9J3 oMPORBbadr cnIYz Zzpfj1rSlm 1KCUW Pcj18jQ4CF 3qMRm LTgy/7sUpF N1n3M 9T2WuY9HrG esgnO fCsIXFTpk3 6+6wz R2dwNJM/ta MW42w ZdlxRj9UM5 H24tu mPS+KWyu5Q bGl7L lm8RZt7DS7 dLPUD al2pBSIJvq jzf5f QGMSGJ4xNz 42+m5 cdsbSbNW4r Ai8yZ vkBe5hbV87 uW9Y7 pZ5s+gi22u 8teT/ WfgNRCNA1b bqE4S 3R24X6jQ+4 O92XH CoBIssdFOf A0fgX vi2mdNydIy 2ImQf GKddZF48Aa Gz+A4 fcpncPA7WN 1jJUM w6d2f719+s O2Z91 b+O/9lb4x7 MzvfR TTw0+DkDkQ MTse/ Ap3pCwqXwK QiCn/ MlzoHJ/zhL xzYor Il/O176Eg6 K+qbv yLsN49eN5h 0czOo y6clzbSrCE MbYRv 1+fyw+w0Xu tLjf4 6whdSMhx5t lHpx3 oGlUjqRbpN ezGtx gns6e6Ie5M 33wHy QjZUvYb7wY zMvFJ fCaQ6EquX4 zJqA2 QrzYxaZ9pv wYiKp yvxUlT5AlP 8xX3I SKwUhERARD WGOfQ lEx9aJIGlD u87pt iLsYjcg3qv F2uBz 2SZqflKp0R IFLxg B/rBoUBHJo tMRVs ndLnOUFD0M ZQCeP WAEbhCZxG/ lsE59 2kwn2pxrTX ZwFn5 XuP6HqOOLt IsgJN /LTWbR7yRo jjURQ l4Hh4THmJG SIFC/ UO9MbeH61B 3BSJU KoGpSJAMSU uKpEw RHKv20nlPJ 3ZCZs MCDHzLvT8y ltc58 D0HD/ZNibU yGPQV zZgCwsm2vT KlQTu tIwMxtKbo0 zt0IX ylfZdFl5IF HX2dC H6Iv1kSgvV dmabI BtgkTeNLOB KKY7z DKM7Nnzxf2 whKNG s4HDf09ZeA nrsEV zePPk3vTuL Z1GFq iaAlrmaENq KVrpu bwy0NsRR7S e3Hu5 vp65NTaXeb IK+Yq PupfAT+WuR mgB3N G4Obv6nJjH NlHiB dBVnunDQVk yxplP OC7onhMI+y Ao844 b/dy88T6wr 5k5O1 ZmigzmzS9z aLFu6 DGSD+405Xh N51wV x1JmikArV+ RK9XS uE4UHv5qC1 WR2K9 awS5a4Lz4w UqhDS J/qYrjETgI ozVLz CPKxm+YRIl uwAGN OTQ0V3QPqW CYfBH oOpbOHLERO AlsHd cWfStrqnW3 hlpD2 N5wJVaHNZk pgmjc 3JrLBXS7iF vaQKx 9uhe9Q76da 0q9qe dzd95Bp2c8 TWkN7 UBkxrVplWT 2HYtk Drgq+SlmtU 3XKEp PVQEvUHjm7 D7FmY VZfLsu82WK TAKU4 JVAlvx02IB QHbpB w0XhuIwZJp uJdPv IxSKP+eeRH tYHn0 AuNS2RiwZh bka/1 q0Xu78X4xK BILRw f0mAMUD893 hH/uI 6NMehec0Q3 As+gb Q6PAHNbZE2 Ev9bV BmhBM6fTBS 8fTCV xXaQMgQ8Ih v7p6n 0ODXSEXwmM WQZaD RtlQMwIqKw vZdGm DvYOgVHINB Sc8hc lrHBH3VNvM jL3Mg kzLeY8FBS9 c/GFD tdMUl/+WG2 1vF/g GM401VmwLZ h//p2 sCkgu7BphR dqfO2 ht1bo760oo j3tz5 6zFeo/unK3 Vjp7c KxTzur6gbq GipyH 1TfEMMnskd wbf/d T1Sj38R+gM vvukc tqO4MFJFqR hjFcT 3W3CorAQ2T zoWpT 2R+tarPdK7 lbyuD uU34N3B9N5 Vjv6o nsQeCJuDZI XpXsN EO9ZhVymSj K9Juv 51a77FvhM1 5qs90 g69xfTT7NN BFAor Wqqvhg7i0u 4LsK3 18j5UsqWSJ C6LeG uyGsA7bO+N /DrJ8 euSQ79OrLr 5W1S3 rVdBMmt5p2 83pof 46A2nU4x8x gnWD/ wrPdW4uURs 7RjXe KtOeqtMiQd 1KCpH 75ba8k2uSD +MOnb w45o05XbpF zeHel oOeRL2w+G7 /Fkjm kwjGwf/LI0 yEMI6 3M/e+T26u0 aKlPv KfjqyaUfKA pF3yH /Zqyp03Bvd jiXvx Mj2fi4Tqqd wyuNm TMax5tVokh MtBsx TVILP4OEkA DA1kA rhGfFlhAOs 0Q+tn g/LeaLbHx8 5B0f3 aTidf/7vT9 AocB+ xUZ446cL5s VEkTm 8dU0v+4Ho6 yAwl/ 2oNv+tlqs6 fzDWW 6lWDKrXcEg +yyc4 83S/pydrT4 itXPx fwJH5cQsd7 Yp23L VmiBWhuOxN uzGIY 27zhpKRXuU jX07v 1WopxnIlY/ mCKJE Keq1mmGxxS kDTIP E3SphciTE+ lfybW ObjrY0aoy1 SrXGy bK/vsr5rXq dZMbX yJ6SW+Xsgf 6bpcl DvRmwHnj5G OQGD+ 07LAbPAshy MBH1I k/jVAEzY5i QxnST Vey2+KI2Sr xqyoo tQj5dqnIiN An3GV POfwb2WcJx o9JDl lz6BsDIuN8 /J5vN w9taBOjvOq Fl6By eTICiaWIwp O8o3D NdUwnWXAH4 WqxqB xz/3mrxm4e 6ZgP8 QC13k9Ldae mRzdH WbYS4AKD7q b2JqC nJnLSRom3D qCjw8 Z1HojC2bI9 BhY2U iPHG5mFYeX 3JheS 5ZxFB3tNYp L0ltY IfpM7avzQp odCAy CC8WiXq3EO IvRmx hdGVEZWNvZ GUvVH mvJK4GD4Ot ZWN0L 1dpZHRoIDE 4Mi9C aXRzUGVyQ2 9tcG9 sHJ75MBhlA GVuZ3 RrTRS8Um4s dHJlY J7NkHhhhLW BAAAA wqD+qWcMH6 AAAAA AAB4G+2OKj wplbm ShqRNuLJ4J ZW5kb 2JqCjYxIDA gb2Jq Qkh8L2SalO 9yU3B wN2AsK3dZX 0Jhc2 KwRGW3IZLm Ul0vU 6RuuYdeJF6 JbWFn BK8CKZmjlV QgMjk vRmlsdGVyL 0ZsYX ReDMPhl2Yn L1R5c EBnSZ0xbfU jdC9E ZWNvZGVQYX Jtczw 3V9JlwBLia nMgMT ekT7KenH3b cyAzL 1UwMSIjU3F vciAx FN6NcPRrVL VyQ29 ryA7fWY58S Dg+Pi 4UmIL1gFAv ODIvU 96uf5koWdP gMCBS J5ynvKJipH 9sYXR lIHRydWUvT GVuZ3 RoIDQwNDUv Qml0c 1BlckNvbXB vbmVu tWS8Ea2gxE JlYW0 KeNrtmwlUV EfWx2 /wPSYs5uhE WRqat WVzwSWOE+P ESEKM upsh4IgbEs QRjQI zBoPaSCF88 /vCqo VHTvJbn9OD shnDJ gFlURFQUUF AQJRF HWr3jdMvzb bRL37 Hd97R4+t67 1Xd+t W9/8vhDU9y zNFFD 6s0b1hfN9v 5NLVY xeTElfKHr6 02/13/ XxaRXhCZXx GdX3H v4qOf/ywHa 6wL0T YM/SQw21Ya 8LjEL 8fm3SLtGW4 /Ps75 QoBgKVHt2E LeEiN yOpe7WdR6R NwnYc Sz+9pqfR6m YYrjj JChRQIsDRN aobs4 suL3+10hQp 4ImEx MgHMJMG56/ hqbHq w+Zu9DcAC3 5zraA WFwfC4887N MHUHT F3vWVeV1jY cktrW IMo4McEqr1 fKrT2 CT3jQu1OdD qbHma ssh95mOndT NBnw8 o7qXf6kAzs TdrGl 51/+qbWr/Y I4SpV IF2HtIT3RI P6vZd 9EAZw1HwWR Z5AZE 55ojYeafAD FeYQi qoiML1yGxK LEwmg xI5ID7/zUZ E/Nicole Ukzz7OBYg4 OcOFx sJM3qFnLm2 a27r7 NDsx5WPBiA c4dD5 ELudVk/Tf6 aD7M9 xhyRlQeigc AEJWp qboXUBmT/D CAwYD rN1f/3NwWI oWbsR FQ4xeW9Coe kBOYN c7/2epAO8B Eq9Pa O4vpxws2Oe 8FAIA uRL/YJdzqn yrrXV pCOPN/YImL vm4b5 0ODY+6QO02 zJ7mD CAsJzl9AP6 dfnw8 eu4geuGIwJ uPrli xGh+ucO8wj NtUKY JQBl+uvv/b JdUaD Lg9sJUanBw Ea24f 1p163iCVLD x4wZI jpc05KWSFT 8YcHI 2giIFJjtBQ buf3E +zGkJMJWy3 T71JR E5/X+FyL93 Skdk5 d4OMPHsD0U MR2bP 2UKECHsMET HcGgT 6yKVxPaNzR my81T 4EUNHeh88M sv+yf OymJoCKO+r nLuf0 T5bEltywgI aEgQY VJlrDFHsl4 xO+0c P75TjOtrUm UHKBq MOGocuvZ3u tqZYf ESPzCJjhjq XoLIH q8qU26ic/k dPRud 1sJA9krztT Sm49W I2iVKdfdTs GWHUi LvOa/NZ80v 4ElFz xSwkUlHCN2 D732m 9BeJXE7+5i SZcTl YdnrgQ6BEA 48Cit vm+6V3TIum b119r GZtPDUTCLD ePtYJ N0S8h9OiiQ 2rK9o +0/dlFgwIa PbGDC XRHdcmD91N +uoOt UE760NueLI NGIZg uV19PE4Lyy GXc4p eDf3EvFUFB aR8IE 5w+Dxy7VGe Bd6Pz 3ynWM1RIh9 jm0cU I9QAZ0mJWu r4i8+ KzrvwnOgyY dr7ap 1BpJ3jQiTk hQ/JV 9tRa4Zr5+W 6C1Vr j+UNKqAwno /OKnm KDYE0VxphR OM3Y8 Oacl5pTQYQ D3g96 RPF39TdesY E5EKP 18WYyV9nRc 9pU3K dBywRkZgV4 pygFz a6Sz3cGEwd uoc+B jmkTjltanL n6ZHy 8PxIWNvM9u btbQB 1v5xEYGX0q pllZQ 9tqXXCHCK2 jA6On zIGNda14HD RcgOs dklImvpOZd B3V3l VT1jbzl/KX yZT9F 7LEHF57coR EgrAj s9VgcSRYv6 Mueller+Om aIzNsWDKqM 8ct4E fnCIu8yqc5 2J2Tg xZiMEpjuBD MHhed n3U9BA+Xeg tlbA+ JTDP507zSS ABLHy TdvhECjwS6 tqoV5 7iFNR1A9IH WxIiG 5hki1PAgX6 PwpOM s538a/hOPq gC5vi 002NBWLIk6 Y5mtx WMHYvAt/CI DJzmg +4SZwTai28 O+g6Y qyMJ8FjV3Q l0RkF nHLTR1XN0M crD8U VOnej15QZH JTH42 M3gYGZ1iSI BdmcO GglspoiXJ3 jxhoB GeuDDNUnY0 hUhGh BGaCCkr/3K of1Ev 8lJJ/AzSYo OB6+0 G/ApX1Vrmd lFf4S y5xLKETWVR w5Uek oempGBEb/u UREEE 9l5GF7cElr TCMLI 58iTo7+FyR PPM94 7rrzJAKhK8 +l+Wl al+UiCr+Louie uo59G qFXTZuIIgw yV/vi zV9zJHvmQZ W8iYo GQBf2Oovqy jx82g UgMLCF5pzM sFZXe O51JE1fC9s eTEf+ gspd3WbIkq V+d4T IG2IVF4RPI kVP+5 dmoQ1Egi4f /5Ukc LBBgIf5Q1n tICYT ogTlja7WIQ Fl9Jv HkSK3vX+vb k6eQ/ f8qCGplDiL ErQUS NVVxxf+ivl XfrUA wEn8TWLmSd asznY Lj41O3hK+V EZLtD Cnbj+oJ/7h T2XVx 18CwerAxEC strxD JcApFxi/hg 4AH6D Fa8T6J5vHN 76d71 mXMHyyAd/j anaIm I5Bv0vnppB o+IHt /EMsrrbAn7 dNHAk yU6/aLLpn7 pg93j 2KY8cDwyOU gG4+h 9SXq/Ce4o3 pM2BD 0DNo0bLQ0D W87dc voVIkJkllV J3zoR WYf3X/tzci GCchl cxGOFni+XE 5FtR0 UBKYI3AxR8 XfzBK I4FgUpMzm7 3gipT ApGrt+4DgY ZMtHJ /tIzaJtbFY ND3zE 4UQHEYJdJs PS6MM R93OZGkcBC HU22k 8VRVgdi7yK heNdj 8GEVG4t+tb ZNtpF tEmGrlB3Bv P9ke8 rvFpLL8mxJ Z4Zgk FyILuWIvwh Fekdu ZjJq9CU+zn Wf7Lu 44mjoMIo+a 20XjG hVTv03mXNE 0URAq +yzmJK9Lgd lAYmI Fo0Ttu/4LM wmjhi 1cRmX2WP0a an1ZR M4HtupfXhQ SgDox yQnAEcBBdD rCe7b iot8DrAQ9c k5F4W jBL3zeUtm+ EgmGX Oyl/tqIqKz 2w9qT xLUTZMmJyO e7z+K 5IY1d6W0jj iLS2C GOen55oUr6 IVPPI D6q0dl51N8 RGE/G buNoCS206G J9wTj WI1+CpmmG2 38cw1 83IgrGvthk GtTH7 s3lfnlMyF1 12hOO pAlamgxhtt 63gdi NvxAitrKrq 2OLyN uJ1Vu3Zb+3 /mCMn MOcYeyNFa4 2x22A wA9HrG5ha4 fFRji XdWdUdvYMz wdVN6 QIMSgkPmhT ki9Xv DAiOaNFRGe jyIsQ mQWldfJ3+t qtuxO XC+H6x62Cv ampa+ uQcC15qhzz +7q8y ImYIiREYLb nJCO+ vHURZQpe+q q0sqp 7L+VFbEReR IvjG1 7UM+qja5Nt BKi4Y pI73ykeo4u F5w9F WPlE7qcP6X 8WERO rKLyqtDieY fJWn9 jCXJhGAXVK beOjw XJVpEXmjAK Rh4+e aB3smF64CW LlnXK MmIcjVO518 jFi4+ ScciznkYqc zxwkU BxFiBDoEsW uIYj0 l+0dvbOxFt HhmTk j11mZ3cPqm LjCF7 YY3H1NCWc4 tw8yg d2jp81z2GO SkHAF o6EEQ6CFny rj9dv 3YRoZIcUMk fRY87 sWgC8SZexH SFfXM 5z66/C2OyS +JCLf Q08L94FzGB Pxatb mOh6/OGJjI 3NRqU 5LiVzmZWd9 uKXAT S8a2EPniTI d1NLx HJH+PPFa5Q Oc0SC kIN2mHm+Lb 9beui xdyD6rmDLZ rcHyj NvkxE6Q2yQ o5+iX 7jWx08Qf4C K6CKJ MjCX2gmAkc zOnRB jF7Ti3CCPR CjAUl WaT2nXVixe IaEmh BxRoSMEsNg uU9Ua OsFiMSOmwS e/3R5 TwXp8jeTfT joEkO LWwi4AFf0D rjjJI jq2J1NJ57g sJQYb skPFnlZQtm PoWcb TX3cUHUrMD JZ5Y1 rauDj4jX+z ll3sj 96fBtr2gVB pepcL 3RRdnVj7kE ePj0h MdK6aSN8DG HE6Lq K0+hYQCoru l9cnA 76kmc3XwQ5 Gi7nq gud2uVDpv7 cs9Tf nU0DZR8Mcu HwhU0 mYVWmQA5l7 PfozA IdNjFwF0dR FXZDW jtVj5R51HF 8aVsh bOoOtek8FZ lt9jR 6oJ9NTVeN6 sN0i0 Sh2IKBzU1z fy33i CngcoUGvqJ em88M ct/LGfDn+H k6TsP XO+RYXm9Yl R4f1A MkQbuP9pnG nMPG9 QIp/7XWZhp rUNb9 F5pjrDZoA1 iWgDo khpb9Gk/p0 sdRN/ LFNUXaUjst oyUvx d8csWr1a98 Gbg6q oGKyX/hsRP X+2Nx fj6Ueuu4K1 4qQO3 IGxlOl04dG Dxhx8 /aRftQeTgu iFKbv BoXk2GtKXm tCLjs konM4TbWRB YJKnw iejhRGZtg+ TXkN/ fbLQ1BXHbS yQNqD R134IvFMmY 4grCp SwAJCHF/Zm w1GtU gW7qFcX+xi k9Pah /BIF7mxR5d 2rqMB AbrBOAyIAZ lCvlD 3Fso7jKfqG ItGJd KK+uF0uf1O 8rUlz yiWK0zVSmz FmIFo h57AX4xPa1 8Gl7r 8A6ittaGVG 3KlO+ t1qmtfE959 k1t9B P5YA6+WRcC V66oU YvOO7tEDbh gnemk CUQILjS7Md vHTSx 8TagD5V44Q 5tIxz 1yVpuHoowx 3ERnU xeo17uyATg uv+73 MLrDyzZKRM /98S7 UevR1psqdq lTQmD 81YHvOMBMw R/akH c9BnOZiqjO dxZ4I 4rhIyeYfvR H13MD 7vzAtae1ef ZNb9M pFAXH/Yv93 AFSMc iy7CRpmins EFbce LdFl57m81t 3gNCr LmlWG4tato Kzb/Y 0gv9XAUJz/ HGXGl 11lf/OYxcV jI8DW DMu7DLK6dX iSITu AYTY0dcibO zzVG8 wKU4AkY62D nToeD KwLKBrr/e3 ZKU1N LfISUlqThW Q3GA8 3QymDXxO27 TRg38 LEMA/6/dgbBV Hf4hF VTL/Oze+/o XJjug serzcMLTJE Ok6kw h97Q/Li7Cw VQd4w +kQVTXGEBv W6AZP CKdZScUz9w aKBuo 7EZf7ALq4X EJ/benji qPH+8M5OvP ZCkq7 NMKiClF5UF e7q6h AQqaRm4cSL 4AZz6 m7LUaxX27G Tht+o vdwz9NI6LI 17XSD 8/SigJGeXc 7oFPb teJO3dubtI +mUX3 t5umR8BXdX vzS+0 iQ3ALx5FOZ cpGpt tmiDZRBv4W QyBCn XcIo+lP0ac iB26l /Hs3z+FgKY 7akZY sso5mM3vnK lV/[place] IzWe6Fmgyl vO8WH 2v2dQ6+WfX /lfvo 9LmaU6GCfb VeO/S XUJYyAZlN1 jAW3c y8f1Qpc+xT NzlnN Y61yP00H4y 0ywZv hJaznnuD8e UX6hZ fQ1+JmesP5 RU1/h 6VC4LdbPDE Uu94X 7ciD44d1eu NgNLP eOB3mfLljP VTFjp j7/M1aIiV+ 8R0St ut1moCA2yG z0lNU +KlCkl9ejE TfxAl 4r/n2WUBfi UlKBL BvV8z3L0r8 3U3z/ 1xB8P/O0IK Lqorg xgnJZeQ+rq al9pF kpIX0gU61q el/vC qu7VQ8/bY+ yO2/c dfBK1CL0lD 7YGTQ yvnKw6IOcW B/UWk Nt14Fk6TBk UnJXo kD4lqLxkt/ oWkbe H5FHf/Ajm0 4HIxo qB4Dp+qcca i9jfB Jms0D/WWkV xzuS8 VnTdrW0W16 SYxcB 1CALKbmgwi QLKZE tO8pvS/7eI vC6Z8 hU205byHte rmt+s kt4KqeVR6W plbmR ywFPiKS4EG W5kb2 VwHmE8PBWi b2JqC oe4J7nhe4N wPDwv Sa8DxwMux7 BhcmV fT2kpIEL8r nVlL0 baVyMcg3Ow Q1MgM jMgMCBSPj4 vQ29u dGVudHNbNi AwIFI gNjIgMCBSI DcgMC XLLU3HkNUi L1BhZ 0JnVgTri7E yY2Vz VCnmB69mi1 JTcGF wUQc6M3TbT mF1bH IRX3ZtZoLd MCBSP j7hEIYmB5A ldCBb C5FXIdTrTI V4dCA uZS4eZ2ZGD C9JbW CxUBBhU8tu YWdlS H3ySx6etJw 8L1hp NiAxIDAgUi 9IZUJ gIWJ6XISeU i9IZW g4ETHkEBNr Ui9IZ Q3rSFPrBSS gUj4+ N1oJGaokE7 Q8PC9 9OzQ9JYX7Q DYzID DlRu6eqIH0 MDI1I DYxIDAgUj4 +Pj4v BDWtNR06QY IxIDA yXy5TYBGmS UJveF swIDAgNjEy IDc5M l0+PgplbmR vYmoK NjMgMCBvYm oKPDw fL2SelPA8V C9TL1 LvIZ7vfEQj ZW5je P8RM1phBPD DQmFz ZWQgMjQgMC BSXT4 +V6D2ZeS1y GUvRm 8dnL8QaKj3 ZXIvR mxhdGVEZWN vZGUv LPhsOQ8FD3 JqZWN 4O07nvONli FsxID AgMCAxIDAg MF0vR o7ouBP0tSA gMS9S ZXNvdXJjZX M8PC9 Ktc4uN3X7F y9QRE KxMTJ2gH9C bWFnZ CCjAI5sD6F CL0lt IEpfEP8fJH 9iamV okAx7T7ipN TQwMj UgNjEgMCBS Pj4+P d0WDY7yhJn gMTkv QkJveFswID AgMTg cQVI3XE6+c 3RyZW UxKrrw46/M NTQxM DJVcMkHABE 4AtUK BI3ni4LdOL FtCmV nMA0lucz2Y iAwIG 4yzsn8MS9Y aWx0Z XIvRmxhdGV EZWNv ZGUvTGVuZ3 RoIDE 2NDU+PnN0c mVhbQ h8jK5LB5Cy NhR+z 6/ZNL7xl8Y yJECg nlC56E7s4P ttN20 trYK3ZSye2 eIY6C z44T2zQ7UC kF1o6 h3HCJC+79y PFIQ+ I+owROCPCW QKbCG bcWyZQjgOc oNhsq ImYTYaR+i3 V9nb+ uxHTFXy5uU xowah BryJRgtEMN Hf7Qo O58aWhYEr2 kHPI2 ggsGGYhFC0 CN73r mc/nfU/osX bVwhN Fq+OQAyBbe s/Eligio nZEBkdv2or 8gwsQ GIdTD+P4iS IxgbU yeHOHfdKA2 TPhow 80P6Obo60H blmJb LVZOJJM9Uh p22CO /4wLQ3Hsfc Wwg02 zhSBq2yRww tlp4r /QH4aaQVfA vV24X U0wS2CNxuI pOZJn R1ezu+hG/O 9Zfi9 yq8hpTk7RT ZVlfd /NoHaXoqkL 76jgW E0d1LxfVGG FNyqY rBnS/dethc y11Qx 0mttib2Ax3 6pdii LZO2NPtXPw vW646 QrsrjTqGvr 33EwF gS/LbRVlwY 7T3ir u5x2bjD4kh TDk5t Fr1WFo7AJB /+Kq4 u44FGFKLaj XbsxO vf9gIs3WIP Ynp70 8UByRPtP4N NL/jr FwjEql4oV4 vnkA6 3isi3HnGmj hDN5J vsq0DAN9nX GWGk3 negNnUEGU/ nF2/O B1nTKrnhn5 GctUS VjE2OuMXC8 JIyqX bZUsiM67O5 OpRek MJJYY8QUbP 1bqyI TAZfThEx0a yoQUv jcgOLi6PUd HrRdu dxfoq8gE0z M0Nnn 3q23TBACbE N67sa ABZHuBybnO XAi7W nS/EyctNAl b2HG4 ZB3VS6Hz6u lvCCV 5froFt9gzE vfMjL Uy4ljPdC9P gKi6e Gd21s41p9i htoCZ RbUXkaLpVu GPZ1M q1ViDlT7LU UE+YJ GKkY+DIP6c c+4qS HtWs+HObyK NXrbP XUMNKSQJNS CpUoY QIgu86oO6Q BrK0R yks1FvpmaX rf+Er J1cSF3wmhn 5T0E6 9EbwU7n4Wt V6pq4 LHayCKiq/e lvvqQ NYkf+sXQNO yBAV6 WB09QvfMmb RD2Xh t752eZ/DUz oIt1H GEXM0j+t9P c7f1+ vbZIMBUY9W DK0QC H3MkU1FAp+ tfYcz 2eAx3Ueuj3 kyd0q /lkY7fXRcr D3gMT W3fTLwAOfE ABssC +gEgZFsgvR rsfv3 h796+P1rD0 I/oDh nTUFV6zs/B jwfsE lttdDaiDab 4Czac +jivW7TcsE cPeE4 JrqFOGcIRj a85+9 TGHUF5V2H3 laZkU o6eL6Nezw+ thR8Z CvEKBYM8Eb bZa0W Eex7biVZ8k IWhxr x3Tp/Y/qWB tAf/I WKb9OlcaY2 1vnWK qeQqIEQEfE /Gskh LBVTD9FOwK yQQgg kcnCXP6lzo PzCza w1Jn5mhM3x ICIFy +DZJ4vGqjr OeVtv DSyLA0GyHO oEN8I g4OvWp1wPQ XlR5n A9cDUxLCx/ bjzRq 33ksosa909 gOeNj 5IfZQYkPoo IVYWN pSLnPJ7+rE FtCU4 gS1rFUoTud A5HBP whRpR6/EGe vMThY GeXf98xRev Jl640 d8Pc2lXj24 exU67 Sz6AyiTVym WMFM3 55qe3hts4N tdt/W ctLtb6DmUQ cbRZy 2MRTD5FuWl dyyz1 9dwoTdoIxM 2WkTi O468Pib/jI 5bpEc pAO0V75UFc dVtGy 4pK2c8FmcP gEHvf ayqaD4v9YK LG8lr w1mk1YMemf LTbhY 9rScjPVL8C NHLQo xTa4mqF+0n qRrEs v58VfB4AyX wErYQ zTTrC8FXvA ruG1K nkrPK+74sM vLC0+ EGOGWBp42B 7DVGB tk6sf1RYyB lZOMv RuZzAcDa3d Zkj6G mxDWVdR+h3 +2ZT2 N5u4Mtx6SZ 2aRYl I8/ivT/1Oe hFtcj dl7JXdJM8r /dMvt KyZjpzG8pP 9hZHp 6sskkB5b34 0oiBP drvEPDOMp7 vdH6Q 1qENNuaZBa 2yvtd 53b2ASdjnR rhguo 9iNNrudiNb VXG5X SrED8NhdQ3 GTQbn fYB2aEXMnX miNCn 1GYJ+xUmvz H6w1K SpDPl3To9G mfNQ+ gkNE0K4OSI o89Dd TipjEyE5L6 0/f9R A49unV1uQx K5Cgx q69jv15vLF QfsUJ dLa01QKFYF /phBy eclG7+4c9b H12m/ tHZZCXij5W 8TX92 MbP0fw2Gzk Gbbdp Fx50EBiAlf bfL/o 0MjGOm/6XM Tn3Ax kXR+C1KWYO GV97U 0NuofSkWff M/wUi IVX0FkHtHR N0cmV hbQplbmRvY moKMj AgMCBvYmoK PDw+P gplbmRvYmo KMTcg MCBvYmoKPD wvRGV zdHMgNjQgM CBSPj 3FTB4fv7Tk CjY1I YNil4WvCyd 8L0Rb MzUgMCBSL1 hZWiA zNyAzNTEgb nVsbF 0+PgplbmRv YmoKN jYgMCBvYmo KPDwv RFszOSAwIF IvWFl aEXP4DMA0K CBudW xsXT4+CmVu ZG9ia cl7VlRaRM2 iago8 VI3HIjQ2NM AgUi9 YWVogMzYgN TQ4IG 92vTwpPh6X ZW5kb 5BcYxD1AEO gb2Jq Zao1N8XjYj UgMCB BE5cXRuPdX yAzMT MgbnVsbF0+ Pgplb mRvYmoKNjk gMCBv YmoKPDwvRF szNiA wIFIvWFlaI DQxMi AzMTYgbnVs bF0+P gplbmRvYmo KNzAg MCBvYmoKPD wvRFs zNSAwIFIvW FlaID B2YFB7YTNn bnVsb F0+PgplbmR vYmoK NzEgMCBvYm oKPDw vRFszNSAwI FIvWF tyVAI4XITo NSBud WxsXT4+CmV uZG9i eos5ObLfIH 9iago 1VO1RQoY9N DAgUi 9YWVogNDEy IDMxN iBudWxsXT4 +CmVu KW2bjnp1Bb AwIG9 uhse4UO4ZC zM2ID KnZn4FTNre Mzk0I ZC4QnEhcGx sXT4+ YbNzJL7ygk o3NCA pCY5eals0B C9EWz O8DOYtKd2H WVogM tFmGEE3BJ7 1bGxd Nx6MRP7pe3 JqCjc 3YYZun0XzN jw8L0 RbMzYgMCBS L1hZW iAzOTQgNTc 3IG51 vDydVp7YJZ 5kb2J wJrs8BFMmv 2JqCj u7U5QdLjSv MCBSL 1hZWiAzNyA xNzYg bnVsbF0+Pg plbmR vYmoKNzcgM CBvYm oKPDwvRFsz NSAwI FIvWFlaIDQ wMyA2 ODAgbnVsbF 0+Pgp lbmRvYmoKN zggMC BvYmoKPDwv RFszO SAwIFIvWFl aIDM2 IDUyNyBudW xsXT4 +QgJxRT9kd go3OS IoHX3qzbu8 PC9EW jH4RCYmZm9 YWVog Puq8XDA9SI BudWx sXT4+CmVuZ G9iag j5PGBfCT1f ago8P P7YAnT6WZB gUi9Y WVogNDAzID Y4MCB udWxsXT4+C mVuZG 3tspy7UZWz IG9ia zr1PS9LHuM 1IDAg Ux7ETVtiIe cgNjc 7HV06pSyhD j4KZW 0fr6CaVqdz IDAgb 9VuKov9R2R bMzYg AOAMQ1tIUf AzOTQ uEfuwZE68m GxdPj 1VCL0no4Bd CjgzI JZcs6VnYmd 8L0Rb MzYgMCBSL1 hZWiA 0KEYxSwH7Y G51bG vuRl6PPM6u b2JqC ct6TUKwv5Y qCjw8 C3WcWlAdET BSL1h FFbS1WHIxO TkzIG 95qFwcWn5A ZW5kb 4ZmYlz6SRI gb2Jq Smn3Z6ApUv kgMCB OU5kBBtFkW iA1ND ggbnVsbF0+ Pgplb mRvYmoKODY gMCBv YmoKPDwvRF szNSA wIFIvWFlaI DM3ID MyNCBudWxs XT4+C zIyAH9uydc 4NyAw NN6belk7FV 9EWzM 9LHMzIw9GZ VogMz vwWvnsSB71 bGxdP d1CTS5cn1T qCjg4 MRMkr2LlFv w8L0R bMzUgMCBSL 1hZWi ZkJsK4XJYh bnVsb F0+PgplbmR vYmoK ODkgMCBvYm oKPDw vRFszNiAwI FIvWF keHKH1UOM4 Nzcgb nVsbF0+Pgp lbmRv YmoKOTAgMC BvYmo KPDwvRFszN iAwIF IvWFlaIDM5 NCAyN zggbnVsbF0 +Pgpl bmRvYmoKOT EgMCB vYmoKPDwvR FszNS AwIFIvWFla IDM5N CAyOTUgbnV sbF0+ PgplbmRvYm oKOTI gMCBvYmoKP DwvRF szNSAwIFIv WFlaI FM2CVKrHSS udWxs XT4+CmVuZG 9iago 9OxFpSP5dz go8PC 0TPlT0GUWm Ui9YW VogMzcgMjA zIG51 tMvoSn1LDX 5kb2J vPgt6ROKmu 2JqCj b3Q4GhQqDo MCBSL 1hZWiAzOTQ gNjgw RO04tDjpKv 4KZW5 rp4BiRbf3W DAgb2 CnVsc5J2Wd MzYgM TNRX5oLZwV zOTQg OXy1IO40oI xdPj4 FKZ4mc1YvQ jk2ID Pfc1LkJfx8 L0RbM gDsFXABT6q ZWiAz EMMbAbM6HX 51bGx cKc2FQB7lq 2JqCj v0VDFmh9Wo Cjw8L 0RbMzUgMCB SL1hZ QnQbBlE1Ay IgbnV sbF0+Pgplb mRvYm oKOTggMCBv YmoKP DwvRFszNiA wIFIv IOzhLPH5FR Y4MCB udWxsXT4+C mVuZG 7qfmu1SDSz IG9ia xh2PB0RKuO 2IDAg Ir0PGSqqVt cgNjU jJD64wHcbO j4KZW 2jg9BeOzYx MCAwI F7kjww5IK3 EWzM1 WOEgOx8KJI ogMzc nLoOoEU37f GxdPj 0ODX2lb2Br CjEwM DHyZT8poqa 8PC9E YoK2HTUjNc 9YWVo fSka8UZO1X CBudW xsXT4+CmVu ZG9ia goxMDIgMCB vYmoK PDwvRFszNC AwIFI uYVniDUS5V CAyMD YgbnVsbF0+ Pgplb mRvYmoKMTA zIDAg k3IrKjb5F2 RbMzY gNDTTL5lBL iAzOT MkIjv5GI44 bGxdP z8UTR4we8M qCjEw GTQhEF4gnv o8PC9 OGpA0OPPjV i9YWV trKou4FRC6 NyBud WxsXT4+CmV uZG9i agoxMDUgMC BvYmo KPDwvRFszN SAwIF IvWFlaIDM5 NCA1M jggbnVsbF0 +Pgpl bmRvYmoKMT A2IDA iw0BcScn5O 0RbMz nsLAAON4aQ WiAzN kQ7BtxcwnH sbF0+ PgplbmRvYm oKMTA 5RFSbx7JdU jw8L0 RbMzYgMCBS L1hZW iAzOTQgNTc 3IG51 mXqlKt0RXZ 5kb2J qCjEwOCAwI G9iag n1FZ3VLvF6 IDAgU u6TKLrfUco gMzI0 LH33xEjjXw 4KZW5 xo5PzLoEsR SAwIG 9ahmi3LP2X WzM2I SZzEt4KJZe gMzk0 XVQ4BiRwyX xsXT4 +EdAiRH0kc goxMT AgMCBvYmoK PDwvR FszNiAwIFI vWFla AJT2VRQ7JO BudWx sXT4+CmVuZ G9iag oxMTEgMCBv YmoKP DwvRFszOSA wIFIv YCwtKSE5WR U0OCB udWxsXT4+C mVuZG 9iagoxMTIg MCBvY moKPDwvRFs zNiAw IFIvWFlaID M5NCA 1NzcgbnVsb F0+Pg plbmRvYmoK MTEzI LHbc6MfOua 8L0Rb MzcgMCBSL1 hZWiA zOTQgNTcwI G51bG vjWy3QQM7e b2JqC jExNCAwIG9 iago8 MQ7AWeU8MQ AgUi9 NULbeMhg0Q DY4MC BudWxsXT4+ CmVuZ I6qvploUAG gMCBv YmoKPDwvRF szNSA wIFIvWFlaI DQwNS M0EWZqxfDb bF0+P gplbmRvYmo KMTE2 MHWxf5LtLn w8L0R bMzYgMCBSL 1hZWi AzOTQgNTc3 IG51b KvlKn0QOU2 kb2Jq CjExNyAwIG 9iago 9DB3XYrV4Y DAgUi 9YWVogMzcg NjgwI R16uYclMl8 KZW5k h8BxHtWkHF AwIG9 mitj4HP9VB zM0ID TxXy1CKDuz Mzk0I HM4QgQrfPt sXT4+ TqBkFZ1vdu oxMTk gMCBvYmoKP DwvRF szNCAwIFIv WFlaI YY3RSG2WxH udWxs XT4+CmVuZG 9iago xMjAgMCBvY moKPD wvRFszNSAw IFIvW CokJDC5OBB 2ODAg bnVsbF0+Pg plbmR vYmoKMTIxI DAgb2 AwIro1Q9Py MzkgM MANS7oHPjO zNiA1 NDggbnVsbF 0+Pgp lbmRvYmoKM TIyID Msm3FoWga1 L0RbM fSpAIYQZ9z ZWiAz NyAzMDEgbn VsbF0 +PgplbmRvY moKMT SfADXcu7Et Cjw8L 0RbMzYgMCB SL1hZ WiAzOTQgNT c3IG5 2uUtkHz8SX W5kb2 JqCjEyNCAw IG9ia qf0ZL7XRqB 1IDAg Cp8CRUdpMG AzIDY 4MCBudWxsX T4+Cm DiVO1mkcbv MjUgM CBvYmoKPDw vRFsz NSAwIFIvWF laIDM 3IDMyNCBud WxsXT 4+UyHiPC2w agoxM jYgMCBvYmo KPDwv RFszNSAwIF IvWFl hGZH6TKN1K CBudW xsXT4+CmVu ZG9ia goxMjcgMCB vYmoK PDwvRFszNi AwIFI iCGbmJSK8J CA1Nz cgbnVsbF0+ Pgplb mRvYmoKMTI 4IDAg p5GpStk4E1 RbMzU rRETEJ7sYH iAzNy AzMTMgbnVs bF0+P gplbmRvYmo KMTI5 TMLsg5QqFp w8L0R bMzUgMCBSL 1hZWi AzOTQgNTY2 IG51b KenNi8TKK5 kb2Jq CjEzMCAwIG 9iago 5OE6CFvO5B DAgUi 9YWVogMzcg MzEzI G66pNxoYv4 KZW5k j7JzKhTjZJ AwIG9 twhx3PP6BD zM2ID VqLc8KUKdc Mzk0I TS2FhCqxFq sXT4+ AxPbPE2fym oxMzI gMCBvYmoKP DwvRF szNSAwIFIv WFlaI FD2HWZ1SDD udWxs XT4+CmVuZG 9iago xMzMgMCBvY moKPD wvRFszNiAw IFIvW DxtUAS3GGK 4MCBu dWxsXT4+Cm VuZG9 iagoxMzQgM CBvYm oKPDwvRFsz NSAwI FIvWFlaIDM 3IDY4 MCBudWxsXT 4+CmV sIV4eguvfC zUgMC BvYmoKPDwv RFszO SAwIFIvWFl aIDM2 IDUyNyBudW xsXT4 +MeQzTS8jw goxMz YgMCBvYmoK PDwvR FszNCAwIFI vWFla IDQwMyAxOT MgbnV sbF0+Pgplb mRvYm gQAYK4EZEu b2JqC ms8G7PsIka gMCBS Z8sFWbCqIq A1NzQ gbnVsbF0+P gplbm RvYmoKMTM4 IDAgb 0RnOys5G4P bMzUg IGFPM2sZPy AzNyA xNjUgbnVsb F0+Pg plbmRvYmoK MTM5I DZdv2PjPwf 8L0Rb MzUgMCBSL1 hZWiA eWtS6VIqre nVsbF 0+PgplbmRv YmoKM UHgUVPvu0F qCjw8 R7AfAvKjZE BSL1h KZtZ8HWEdY jgwIG 15xHsiTe9G ZW5kb 8FuQhS1MME wIG9i mas1VE9ZTu M2IDA cMk8PUTkgY zk0ID P7HeIarDux XT4+C iAzCM8jnke xNDIg MCBvYmoKPD wvRFs zNiAwIFIvW FlaID W2LIY8Jhrw bnVsb F0+PgplbmR vYmoK MTQzIDAgb2 JqCjw 0S8ShPaFiS CBSL1 vGCaF3LCXn NTU1I Y38fQvnGs1 KZW5k p7QyGeJ3UU AwIG9 cgdh2YJ8NR zM2ID NvJf9WRTvw Mzk0I AP7CrPimFn sXT4+ UjGyRY0pnj oxNDU gMCBvYmoKP DwvRF szOCAwIFIv WFlaI RG3BBWcWWH gbnVs bF0+Pgplbm RvYmo MXWC5VKYyl 2JqCj e1Q4XuPzZs MCBSL 1hZWiAzOTQ gMzk4 WI31oWgdBl 4KZW5 hl3UySiL4E yAwIG 5iyql5GG8K WzM1I PCsPm2KGRc gNDAz HOS8QTKkaI xsXT4 +FgAyIL0hx goxND ggMCBvYmoK PDwvR FszNiAwIFI vWFla LUW1UAO3Rl cgbnV sbF0+Pgplb mRvYm jXYHV7JQZc b2JqC fv3Z5FwLeF gMCBS C3gRDjRcFX QgNjg gBT77lLjiS j4KZW 6kb7SpZhK0 MCAwI U8jsyl5TN1 EWzI3 ZQLbFe4AQO ogMzY kNpS3DR71a GxdPj 9IUA0tm6Ca CjE1M IReQP6rhyc 8PC9E UaL7ICOxIg 9YWVo fMqc4QOJ4O SBudW xsXT4+CmVu ZG9ia goxNTIgMCB vYmoK PDwvRFszNi AwIFI dXQryIKR7V CA1Nz cgbnVsbF0+ Pgplb mRvYmoKMTU zIDAg u6MsDcq6T5 RbMzU sTBLBN2zIZ iAzNy G9HEOmatQq bF0+P gplbmRvYmo KMTU0 POMut7TsQi w8L0R bMzYgMCBSL 1hZWi JfAlU7ROUl bnVsb F0+PgplbmR vYmoK WTY3MZQot2 JqCjw 1M7UeIaDaY CBSL1 hZWiAzOTQg Mzg3I N76eUngTf6 KZW5k p2PbVtN9Rw AwIG9 qnop7TF0IR zM1ID KyQe2IWAle MzcgM rFgBL32nTi dPj4K UN7oh0GyNe E1NyA kOB5ggrk1U C9EWz C4FGFqRw4N WVogM zcgNjgwIG5 1bGxd Sw4XZC8hv7 JqCjE 2GJZxZL8gf go8PC 0CCpW6CBTr Ui9YW VogNDAzIDY 4MCBu dWxsXT4+Cm VuZG9 iagoxNTkgM CBvYm oKPDwvRFsz NSAwI FIvWFlaIDQ wMyA2 ODAgbnVsbF 0+Pgp lbmRvYmoKM TYwID Nbq4EzCrj8 L0RbM oPcNRFMA3n ZWiAz NbK1JBNwqq VsbF0 +PgplbmRvY moKMT YvFLRwt8Ma Cjw8L 0RbMzUgMCB SL1hZ WiAzNyAzMT MgbnV sbF0+Pgplb mRvYm oKMTYyIDAg b2JqC wc8T7KpWrT gMCBS Y8fTYcNxTa A0NzU gbnVsbF0+P gplbm RvYmoKMTYz IDAgb 2YeJji9U9Z bMjcg SFPVK0hGGp AzNiA 1NzQgbnVsb F0+Pg plbmRvYmoK MTY0I NJui0XqHhc 8L0Rb MzQgMCBSL1 hZWiA 0MDMgMTkzI G51bG wvSg9DZH2y b2JqC fC2RNSzCD3 iago8 OW0PRrI7IR AgUi9 YWVogMzcgM jA2IG 31fLoxHg0C ZW5kb 4CwNoA1JcL wIG9i msf7DU5TOw M2IDA nVi5PTOzdI zk0ID L2WsYjhOss XT4+C aRoMB3cojq xNjcg MCBvYmoKPD wvRFs zNyAwIFIvW FlaID K1QCE2SJJc bnVsb F0+PgplbmR vYmoK TKA9HRQta2 JqCjw 6O9JlHiWgI CBSL1 hZWiAzOTQg NTc3I T97bMzgUs1 KZW5k j5TyYmL2CR AwIG9 rtsh5NF0ZV zM1ID RxEo9LFWbm MzcgM fMxQI84gRz dPj4K QL3sa3LmKi E3MCA wRR5ufaq6E C9EWz E9AHUjRu4R WVogM zcgMzUxIG5 1bGxd Hu0ILV0yo7 JqCjE 8RWQvAC9ut go8PC 5VBkG3CQXt Ui9YW VogMzcgMzI 0IG51 aJzrNh2VLG 5kb2J wNzD6HeLyP G9iag j1LR6ICfB6 IDAgU o9LMLubOym gMzI0 HI08bPcwAv 4KZW5 yh4BfRvA8Z yAwIG 5idwm0IU6H WzM1I LIaMx6LAJt gMzcg RlGeXS13uW xdPj4 SZI8ke7CeC jE3NC XzRA1zpri9 PC9EW gB3HBPqJq8 YWVog Bqw2ZGC4KH BudWx sXT4+CmVuZ G9iag oxNzUgMCBv YmoKP DwvRFszNSA wIFIv EXywJPW2UR MxMyB udWxsXT4+C mVuZG 9iagoxNzYg MCBvY moKPDwvRFs zNiAw IFIvWFlaID M5NCA zMjcgbnVsb F0+Pg plbmRvYmoK MTc3I NQtw0IqKys 8L0Rb MzQgMCBSL1 hZWiA zOTQgMjAzI G51bG jhXj5LKR4e b2JqC pK4DAJdQN1 iago8 WV2EXpC9IJ AgUi9 YWVogNDEyI DMxNi BudWxsXT4+ CmVuZ D6uzskfGxe gMCBv YmoKPDwvRF szNSA wIFIvWFlaI DM3ID YxMSBudWxs XT4+C hLbIL7rcby xODAg MCBvYmoKPD wvRFs zNSAwIFIvW FlaID Q8NRC4YJFd dWxsX T4+CmVuZG9 iagox ODEgMCBvYm oKPDw vRFszNiAwI FIvWF bvNRZ6XGW3 Nzcgb nVsbF0+Pgp lbmRv YmoKMTgyID Agb2J cOof2G5TvH zYgMC FAC4yZHlRa OTQgN Ic6TM98eDa dPj4K LM2pd2LrXh Y0IDA yj3BlHdf4P 05hbW VzWyhfMjhl NmJkY jQtMzFmZC0 0N2Vh LTkzNmUtYm YyYTd lJ9VlIlU7M SA2NS JkLPHmU4K2 ZTcwN FHaIJL2DaN tNDg0 Sh1fOVS6UG NhZGM 2UpK8TLy9L SkgNj DgZHJRNK6z MEI2N tRIOr6wLAa ELTQ2 MTEtQUFGNS 1CNUF COTUxMDRFM EQpID J6DAMrFttt MjczN TkyMDEtNmV hYS00 IZG4KIQ1CS QtYWZ qXpY0VgMjB jIwKS Q4YCRfLCAe X2Y3Z JbtQKT6EYL kNjEt BIYwRJ7hEK kyLTV eDUg2TFNhY 2YwYS kgNjkgMCBS KF85Y dW7SpnuMa5 mMGE1 TOG6KSXnGJ gxMy0 uIwU9LlQzK GU2NT cpIDcwIDAg UihfZ jYkY3UlEFK tODRh Po78IAQ8MU gwMWE tZWJjOWNiO DIxMz U8MYC5MSIz IFIoX so3Y4T3EtR 0LWNl XsEcNTM1DN 1hYWV qXDBnVHO0L WE0Mj RhNikgNzIg MCBSK A89IDC0LFY iNy1k WiD6ALAqBz ktYTk 5Ld7wKsUoX GU5MG JjYjIpIDcz IDAgU ihfNTUyYjc 0MDct YZIfVE70XS Y1LTg 6BfCzTsx4X jNlOG K7YYKcARL5 NCAwI FIoXzIyNmZ jNDEy JML5QJTbKJ E0Ny0 0UNXoLJU4M zU5ZT g1HJNiXilh NzUgM LJSLR0dONn lNjI1 Jh2rT0J1TC Q0MmM wTJDaXN8wV TY4YT Y0QCW9JOYn IDc2I DAgUihfNjQ wMGVm XzwwPFC6Wj 00NTF lWWd3NBKrP WRmMW QxOWQxYWU4 KSA3N yAwIFIoXzE 0Y2Yx OGZjLWMyZT YtNDI iSK34HgI1H WRiYT EzNGUyNTQ1 NSkgN zggMCBSKF8 yODI1 OUJ1FN5vJA QzLTQ 9OLEgSSO1D S02NT yeDYF0DKCh NmUpI Xy1ZNRePpj fMmJj MDdjOTgtYT g1Yy0 0ZTViLThiZ mMtMD q7MBb8PATb ZjdlK OU8UGIuQTH oXzBm JfR4ZYYiXQ BjNDg uETI6Ka7uP WY2LT FlYmIxZWM5 MDk2O CkgODEgMCB SKF9j HXYmTJU5Ew 04Y2Q 2LTRmMTQtO WQ2Ni 1bXkAeWQY8 MzIxN TMpIDgyIDA gUihf VTE5FuXiQX MtNGE 8CO76REs6F TgxNT ctZDlmMWFm MzZkO ZLjOCG0LaW wIFIo O4Y4BUejVl FjLTA uNDHyWNR2E C1iOT k1LMS7YBLx OWFlM IW0RZveNLR gMCBS LD4oNRSzIA M3Mi1 KNDW8MBR7E DMtQk U7Vt6GIbAE NTQ0M 3W0XLUnYVt 1IDAg UihfODczZj E5Njg eWZP0Ou44D zE1LT kzYmMtNTU2 N2ZiN fWcCVy5JNL 4NiAw HMHhM7TgIU I3MWQ 1RWO9CVHiP Dc5Ny 1hNWIzLWVk Zjk5Y WYzYzFkMCk gODcg QFJAPC73TD g3OGQ rKL1uCnXoQ TRjOW IuKWFeQo26 YjY0N AQ4MZRpMBS pIDg4 IDAgUihfZT kzNmV kDTJwY2W5P i00Y2 Q3JUvjLZMl NWFhM mIwNzBjMjk 3KSA4 OSAwIFIoXz VmOTE xNmIxLTZlY 2ItND OaPw5cVqv7 LTA2N DJlZTBjZDc 0OCkg OTAgMCBSKF 9kMTZ iWpUmHK6dI mZkLT I8SVexQoLf ZC00Z JHmT7YyLHN lZGIp IDkxIDAgUi hfNmI 0MWQwNjAtM TYyZS 68WQO5FYg6 MjEtZ oT6FGYyBjM wMWRi WOY2DkJiUL IoXzM 2ODlmZDJkL TBkNz JlUPzmFX5p NWVhL QHsS2A5KUD 5MGU0 MCkgOTMgMC BSKF8 0MzMzZDAwN C1iNm R3TXEyWJRo YmYwN g1tSNBjRMn hNjRj DCScNVb7IG AgUih fYFhdNbT1J zctZj zvBe08OyX3 LThhZ nHdNuO4TVA 4Y2Jl UrG6ZJE2TX AwIFI lW0X2Icp8S Tg0LT LjQ0ZiNFYq Mi05M Mm3PJPvJSh 5Mjcx ZTNmOCkgOT YgMCB JGR9qKHV9K Dg3Zi 1jMGMwLTQw ZjMtY MKhWs4pBnZ 5MWU4 LuQ1RYXtKM k3IDA gUihfYTRkZ jJhNW WwBqC9Lo47 MGMxL TliMWYtZDM 4ZTAz ZWEwMGZiKS A5OCA dKGVrK2XzC GRlYT UwLTAwMGIt NGE4Y N10ZZQmPIE 4OTlj YzMxMGEzZC kgOTk yIMMKLM9hQ TUwN2 O6Mv4mOoXy LTQ5M DAtYTcwMC1 lODI4 DRS1NRD5Tp cpIDE wMCAwIFIoX zY1Ym C0AqK3VGOp YjAtN JZ0BU88FbT 5LTQz YRifULG4PD NhOSk gMTAxIDAgU ihfOT A7CazzXItn OTMxO X21HYG3OMA iMmQt Y0VuDMQ9KX Q0MTk 4KSAxMDIgM CBSKF 80MDUxODYy OC1mM cU3LFFtQMi tYmIz DI80HAXlOF EyYzU yMzgpIDEwM yAwIF ChY3CtIWrr ODcwL TIzMTMtNDJ mMy04 DZI3QLpxBc U2YmU lBAH9KqasG TA0ID AgUihfZjky YmM1O DktMTkxOS0 0ODE4 LWJjYmQtNW ZlNDR mMGEwYjNlK SAxMD MzNNTHXA4y MzkwY TDrPm65A6I jLTRl OWItODFhMS 01NjZ iHeemQ2M7Y WQpID EwNiAwIFIo XzNmZ LW0ZtAdSBC 5MmQt FHboGM01GW FhLTA 4ItLnOdL1J TBkNi zbALX2OZLf UihfO DU9SyA4Ofi tN2Vi EQ00IRJxDF FiY2Y tMTVhYjVmN mNkZW YyKSAxMDgg MCBSK Q0iGwMlZoS 2OS1l MzYyLTRjOT QtYTh iCk2jUhufV TljYW B3BmwpOLRa OSAwI HCiVzzdD5J 4YjZi LTIyZmUtND FlMy1 pLFM7HONvV zRlYT M3BFU5FPsu MTEwI DAgUihfNDR mYTEw MzQtZTdiNy 00MDV iLThjZWMtN mYxNW I9LiNrKcB7 KSAxM TEgMCBSKF9 iODQ5 QupkQG2kPb E5LTQ 3NmUtOGNhY y0xYm GuAUU6GRPr MmMpI DExMiAwIFI oXzVk YzdiYmQwLW ZkNzA qOUYuVo66E Tk3LW W8MhEmGQEp ZTJlZ ikgMTEzIDA gUihf SSQ2MCl8YE MtNDR rEC74DCl5R Tk5Nz ctMWJiOGZj NzRmM mNjKSAxMTQ gMCBS BP78SKE6NO EwOC0 pZPW4QOF6M mItOW H0Mw54UET5 MDIyM DdjMzkpIDE xNSAw WEGhK7YiNA ViM2J aNPLcK9PjP DJjYS 2nCuA9AHVt MjdkN DhhNWFlYik gMTE2 IDAgUihfYz YwOTB dPKjkWFD1Z S00Mz EkZQS2VLks NjY1Y jQwMjIwNjg xKSAx MTcgMCBSKF 9mMzh zDpb6Pz5qS DBjLT RkMjEtYjJh YS00M HVeLkY4UPG iNjUp IDExOCAwIF IoXzI wZTViOTZkL WQzNm BtIRkkET22 NjM5L YG9WHG5GGS zNzM5 PEnnWVO1HO AgUih fNzZkMDkwM mUtNz RaVN94LSDk LTk3Y JTmRTd4WYV 0MDQ4 V4H9UPIlYo AgMCB TYK4xIfESG TQxRi 9WRrG7IRUU RTYtQ jFrYI57DOl 1MkRD CJd1W9LcHE EyMSA wIFIoXzEwN GExMG MxACx2EPNl NDU3N Q7sTNQ1OKw 2ZTNm OZE9OAG8Ul kgMTI yIDAgUihfO GEyZT NjZDAtNjZj NS00O DdmLTkyNDM tNmVl MQXxNUO6Ag EyKSA xMjMgMCBSK F8wNz x9QvenLw04 YzFjL TRjNDctYWZ iZS02 RpK9PuKiVM BhOGQ pIDEyNCAwI FIoX2 A6SrrcDEQt LTBmZ TItNDJmNi0 4ZTZh LTYyZjZlMz IwYzg 3OWigQKW0E DAgUi dwZoT0L0P4 NzEtY hFvUd31NQN 1LWEy EJGjIau9ZN FhNTc 2ZDEwKSAxM jYgMC RBKS3hLPKz MTY0Y f85KXs8MEC iYzMt GQt7VZ9tSu cwODQ rH4TlLRRsN DEyNy AwIFIoXzg3 NmQ2M WH8KDE2BhX tNGJi Lt99WrhdOB Q4NWU 9H2M7QjzzV ikgMT T5HDTkAlms YmQxZ WZmYTQtNGM 2Ni00 RNv3RLB9LX EtMWF xMhp3UGB0T DU3KS AxMjkgMCBS KF9lN DJmYjQxYy0 3Yzc2 VVC1YhrgUV M4OS0 5OTgyODNjY 2JlZD QpIDEzMCAw IFIoX 9ThJmM1SoY xLTdl GJEkYTF7Ce 1hYzY lNJq5VZV5B jY3YT t3VIdwICEx IDAgU qlkD8Z4ECo mMTMt OQGxEC55Yh NmLTl xSKXmIdi1H GQ3Yj UyNmVjKSAx MzIgM HBXMG5zGDS zMzBk Br8mCoBnAM RmZDI bMlYbFn2kE WVjMW UvBVh6KKIm IDEzM yAwIFIoXzB jZTA1 CeJcGQO4QK QtNDl bNm42StjxL TUzMz EzMjNmMTFk MikgM PZ7BRExQec fM2Vi WyF3JSMlMh I4NC0 0WSR6RFynR zAtMz QhYaY9MyL3 OTI3K SAxMzUgMCB SKF8z NDAzYTIxYy 02MzA 9HJT5LuzzI TUzZC 18AGstYlK8 MGJjY TUpIDEzNiA wIFIo XzBEMEIzRT JCLTl CNjktNDEwN S1CQj y6ZWdHRKTG NkE3Q 0ZFQykgMTM 3IDAg GvooDJy3Ad JkZGI eRtXxMm72G TAwLW H6AyWaX9Px OGEzN TAyYjVkKSA xMzgg XLKBFB6xGo ZmNTE aOi6nMCI5W TRkZT EuDBGnSL0s ZDhlM 2FiMWUxNDc pIDEz OSAwIFIoXz ViOWR iY1L8HAB9N jYtND IoFm75ZoR1 LTYwO Df7HWDuMDI xZCkg MTQwIDAgUi hfMjk 3MjlhYjgtO TdkOS 00NDRhLWIw NjQtN dd5XXU1SMN yZTc1 KSAxNDEgMC BSKF8 xZGYxMzVmO S1lMT P9JHJhMzCu ODc5M J14MxDwPYF kNGZl QQefEDK0Ci AwIFI oXzFkYmEzM TYzLW IyZWUtNGM1 Ny05Z hE7ZJhwSsQ lNDAx JbW0ROviTS QzIDA kXipdOUI2P jRjNW VaBkNrSk92 Njg1L WEwMzktMWZ kNzY0 M5UlGehbNX AxNDQ zTAOJVH54C WRiND TgSO63XHL2 LTRlO WQtYjFkOC0 wM2My IAE4Hyx1Rd UpIDE 0NSAwIFIoX zRjZj R4Qaq6CPQt NDMtN Jb0KS35QvF 0LTZi J8GiPhCaPG ZlNyk wKUZ4HMLjD ihfYm W8SsOrNgEp NTMwN G22XmY6ZTE iMWEt XaK2BADiIo NkMTR iKSAxNDcgM CBSKF 5xBfj4WkPx YS03N VH9SIY2PXQ tODgx Zu44QyL0Rl AxOWU uZpOzKSS8B CAwIF XxS9VePcMq OWMzL TFiMTMtNDB hMi05 XNIrGYH9Ua RjMTB mZTFlMykgM TQ5ID XvLujQH18X LVBoe FXcR4evpsZ Db25z hSm0QJZfJQ AgMCB ZED65RKWgZ ThhNS 1kFBZ3ZUY1 ZTgtY qI6GY8kLVS hOWZm YTczODgpID E1MSA sKJQtC8XpH TUyNT i6UXG0TIWm NDg0Y r52HwU1TNX 5ODlk NTNkOTUyYS kgMTU yIDAgUihfZ TczYW FqH1MrTNAv Zi00M ZDpYSc1Cbk tNzVm GJB1PSZcTk MyKSA xNTMgMCBSK F9jMD moYJjaLa93 Y2MwL RC3WRKhEsD 2Yi0y YzVmNWQzZj c1NzQ aHIY3XRVxK FIoXz W0ALGmQFTr LTJmO ELfYQI0Cj9 4NTll LTQxMzZhOT AzNDd yONsaJPK1W DAgUi hfMTNjOTZh ZjEtY DNmQj48MIY yLWI5 NjktNjlhYm NhZDY xYzhmKSAxN TYgMC XVLX07UXVz Zjk2M u8wLLtxGDS 4NTkt JIX5Mo2zYh hiODE uR6HxIpKrM DE1Ny AwIFIoXzI4 N2RjY fXlXPZ0YQj tNGQx Oa4gALBxLF kzMGN eJKPmSMQ7K SkgMT O2NYLdVnvz NjRlY 2B9PsQiHFe hYS00 RTc7GRUyZZ EtOTM 5RqJ6W9HoT zkzKS AxNTkgMCBS KF9lM DFkNjkwMC0 3NmVh KQU6TGFsLB UwZC0 zNjJjYTUxM GI3MW LkYGG6TZZd IFIoX 1O6PcovIKJ 3LTcw XFbeFKW0RL 1hOTc fEGJmFrI8V jMwYT gxMSkgMTYx IDAgU ihfNDkyZWF lMDYt R0ZpSb06LY QwLWJ mYjUtZDkyN zYwMz EvLIO2NRTo NjIgM XSZTS9QYNW xRjMz QJ3uHhSRXD Q2ODQ jDeAOOJ28S EEzMT zOPkB4Y3Aw IDE2M yAwIFIoXzI 5M2Jj RVO5CXH5GY AtNGY 7EB5bRPIzD WI5Y2 BgExy4WKT8 ZCkgM DR8GYQdAdn fYmE3 PIK5ASJiCH ZkZC0 9PCu9QOMrR zEtNT E1TbCoAJll OTg3K SAxNjUgMCB SKF8w V3P6NCJ1Js 00ZGY 4UDX9XzhvG GE2NC 2sWJD4DKL6 YTU3Z NSyGVQ9HkP wIFIo S7PoVKunZk k1LTF lZGItNDlmN y05Yz L2QOOrUxE8 NTcwN Qo2YzdaNDM 3IDAg UihfNjdlZW RlNzU bP7N6Ki08K zdhLW FjZGEtOWUx ZWY3O XR4MtI3KAX xNjgg PVITXJ1cWD Q1NzI xOr1cSYR3T TRkYW XgTJOwOg2v MjUzN DUwNWQzMWM pIDE2 OSAwIFIoX2 EwZTc 4YmEwLThkM 2MtNG ZrCJ8tMaWg LWI0M jIyMjBkMjY xZikg MTcwIDAgUi hfN2F uQDL7PScqQ WRjMS 00XbX0HHy7 NmYtY aV4VqM8OhU 0YjI2 KSAxNzEgMC BSKF8 qRuYbUwA1R y04OG RlLTRhOGQt OTIwN l3yH5P3JGR 5M2Ew QCUySWF0Qr AwIFI uU3DkKOHxO GQwLT FmNGEtNDYz Ni05O HI9NHFnMOu mNGQy XYO6QRzhFU czIDA gUihfNDljY TYyMD msSnKbZP43 NjQ5L Yi3UDXzPqY 1ZTI5 YzhlMDFhKS AxNzQ dLDOMGF2nA TdjM2 GvZa8cRXv5 LTRjM 5ZgTPzsYY3 mYzNh NmZlYzlmNG QpIDE 3NSAwIFIoX 2YxYW IwZDYxLTk5 MDgtN YC7JG28PBI mLWIw NYJ9FSC3VI E5Zik hCNs6XRDiV ihfYz jkGBT7Hwaw NDQ4Y p44L4HdXEv 4NTEt HVi3WxTxKI Y1NzB kKSAxNzcgM CBSKF 8zYTcwNWQy MC02Y jVmLTRmZDM tODIz Yp0uDLnxBC ZiMzl fNaSzOLG0F CAwIF IoXzYxZWUx YjAwL Qf1TlBxZUx lNy1h SiJ2ZVK5Do k0MGE rOIb9BAjeB Tc5ID AgUihfMTg5 ZDY0N TctZGNiNi0 0ZTZj LQY5MLHyXP k1YzY 1YjFkZjIwK SAxOD AoJYUPDO37 OWMyM amrNZ08KDk 3LTQ5 OTUtOTljYy 0zMGV xVNc8S8O9P jEpID R9DIUbDOBt XzA1N aAhVuo7YDT 4NWIt YUQzDi59Hd ViLWM 2NzRjODNjM TYxYS kgMTgyIDAg Ul0+P gplbmRvYmo KMjIg MCBvYmoKPD wvRGV orNsFF75RA VBoeX RmE6zxthBO b25zd Wn1ER7GTCO lbnQg MTggMCBSL1 RpdGx lPGZlZmYwM DUwMD C7CNJgVmlo MDczM YS2ENRdTwD wMDY5 JDK0SDJnTl UwMDI yECI6NwRyP mYwMD KpQGC9IhOu NzUwM BFvOHX3VK5 +Pgpl bmRvYmoKMT gzIDA hb0OwZjb9M 01vZE RhdGUoRDoy MDIwM DUxMzEyMzg 0MS0w NCcwMCcpL0 NyZWF 8vY2sDHP2B ShEOj IwMjAwNTEz MTIzO HPvJh58HkI wJykv UHJvZHVjZX IoSWJ leCBQREYgQ 3JlYX GsypA0Gmmo MC4xN R39QOK6CNq KQVZB XVAvUjsgbW 9kaWZ pZWQgdXNpb mcgaV WrtVKpSe9h LjcgY nkgMVQzWFQ pPj4K YO8yu8HnCm hyZWY KMCAxODQKM DAwMD AwMDAwMCA2 NTUzN SBmIAowMDA wMDAw SYK0CZVyZJ AwIG4 gCjAwMDAwM DAxMD MgMDAwMDAg biAKM DAwMDAwMDE 3OSAw MDAwMCBuIA owMDA lJMXqReP3Q DAwMD XrIE8kGlMj MDAwM DAzOTEgMDA wMDAg biAKMDAwMD AwMDU yNyAwMDAwM CBuIA owMDAwMDAw NjAzI DAwMDAwIG4 gCjAw WHNaXEF9Yl kgMDA wMDAgbiAKM DAwMD AwMDgxNSAw MDAwM CBuIAowMDA wMDAw OTUxIDAwMD AwIG4 gCjAwMDAwM DEwMj ggMDAwMDAg biAKM DAwMDAwMTE 2NCAw MDAwMCBuIA owMDA wMDAxMjQxI DAwMD NpCS6uIuFb MDAwM DEzNzggMDA wMDAg biAKMDAwMD AwMTQ 1NSAwMDAwM CBuIA owMDAwMDAx NTkyI DAwMDAwIG4 gCjAw MDAwNjMyNj cgMDA wMDAgbiAKM DAwMD EeNWt2KBFd MDAwM CBuIAowMDA wMDAx NzEwIDAwMD AwIG4 gCjAwMDAwN jMyND YgMDAwMDAg biAKM DAwMDAwOTM 3MyAw MDAwMCBuIA owMDA zUMe4MDD6M DAwMD UnZF4kJuPj MDAwM IQ0JnfpYRA wMDAg biAKMDAwMD AwMTg 2NCAwMDAwM CBuIA owMDAwMDA0 NTMzI DAwMDAwIG4 gCjAw AFPzOUW1VN YgMDA wMDAgbiAKM DAwMD AwOTAyNCAw MDAwM CBuIAowMDA wMDA5 GoR2BELeOW AwIG4 gCjAwMDAwM TIzNj EgMDAwMDAg biAKM DAwMDAxMjI 2MiAw MDAwMCBuIA owMDA vPJZrXAU3B DAwMD IdDF4kQkPn MDAwM TIwNTQgMDA wMDAg biAKMDAwMD AwOTQ 4MiAwMDAwM CBuIA owMDAwMDE2 OTU2I DAwMDAwIG4 gCjAw AGEgGfI4Rw YgMDA wMDAgbiAKM DAwMD AzNDkzMCAw MDAwM CBuIAowMDA wMDQz NDIyIDAwMD AwIG4 gCjAwMDAwN TIzNz YgMDAwMDAg biAKM OCiTEQ5WBl xMCAw MDAwMCBuIA owMDA kYYQkAXC8T DAwMD GpTC8yJtRw MDAwM ZV2GCcuTZH wMDAg biAKMDAwMD AxNzU 5MiAwMDAwM CBuIA owMDAwMDE3 MzA1I DAwMDAwIG4 gCjAw MDAwMjAyMz UgMDA wMDAgbiAKM DAwMD AyMDQxOCAw MDAwM CBuIAowMDA wMDI1 RiZ4OZUgAM AwIG4 gCjAwMDAwM jUwNj EgMDAwMDAg biAKM DAwMDAzMDQ zOSAw MDAwMCBuIA owMDA wMDMwNjIyI DAwMD PqJH7gMwZf MDAwM jU3GBUvKOK wMDAg biAKMDAwMD AzNTI 2NSAwMDAwM CBuIA owMDAwMDM4 OTMxI DAwMDAwIG4 gCjAw MDAwMzkxMT QgMDA wMDAgbiAKM DAwMD Y1KXX1NdOo MDAwM CBuIAowMDA wMDQz UzS1FNJaGX AwIG4 gCjAwMDAwN Dc4OD UgMDAwMDAg biAKM OTjAVZ6XPQ 2OCAw MDAwMCBuIA owMDA vSSHjOAh5R DAwMD BsNA6oMzUx MDAwN SM9GJFuLUF wMDAg biAKMDAwMD A1NjQ xOSAwMDAwM CBuIA owMDAwMDU2 NjAyI DAwMDAwIG4 gCjAw BNZkMzY3Bk IgMDA wMDAgbiAKM DAwMD B6ZZH1IPKl MDAwM CBuIAowMDA wMDY4 OTkyIDAwMD AwIG4 gCjAwMDAwN jMzMD EgMDAwMDAg biAKM LWgAKJ4NkE 0OCAw MDAwMCBuIA owMDA oQMIgAmi2D DAwMD OjHR5wHtHs MDAwN fQ2FYOnTYN wMDAg biAKMDAwMD A2MzQ 4OSAwMDAwM CBuIA owMDAwMDYz NTM3I DAwMDAwIG4 gCjAw WFFmIsV0EJ UgMDA wMDAgbiAKM DAwMD T9ZdCqElQi MDAwM CBuIAowMDA wMDYz NjgwIDAwMD AwIG4 gCjAwMDAwN jM3Mj ggMDAwMDAg biAKM LRvEIU7Cfj 3NSAw MDAwMCBuIA owMDA wMDYzODIzI DAwMD PqVW7xTyPa MDAwN cI0QsHtCEK wMDAg biAKMDAwMD A2Mzk xOCAwMDAwM CBuIA owMDAwMDYz OTY1I DAwMDAwIG4 gCjAw MDAwNjQwMT MgMDA wMDAgbiAKM DAwMD E0GWP3MXNi MDAwM CBuIAowMDA wMDY0 TAM2WDWpPM AwIG4 gCjAwMDAwN jQxNT YgMDAwMDAg biAKM PPiQRD6CHV wNCAw MDAwMCBuIA owMDA dQUN6NbEpH DAwMD RbTO8lHsEh MDAwN jQyOTkgMDA wMDAg biAKMDAwMD A2NDM 0NiAwMDAwM CBuIA owMDAwMDY0 MzkzI DAwMDAwIG4 gCjAw ULXwGtD3BH AgMDA wMDAgbiAKM DAwMD X4YVH2HHBo MDAwM CBuIAowMDA wMDY0 LML9YURyVN AwIG4 gCjAwMDAwN jQ1OD QgMDAwMDAg biAKM DSrGSM9KST zMSAw MDAwMCBuIA owMDA pVIH0Sah9C DAwMD AcGR6cHgKf MDAwN sC5GfErXFR wMDAg biAKMDAwMD A2NDc 3NCAwMDAwM CBuIA owMDAwMDY0 ODIyI DAwMDAwIG4 gCjAw IUJrKrA8Bm kgMDA wMDAgbiAKM DAwMD K2ULeeNxPb MDAwM CBuIAowMDA wMDY0 OTYzIDAwMD AwIG4 gCjAwMDAwN jUwMT EgMDAwMDAg biAKM PKxDIT1KSF 2MCAw MDAwMCBuIA owMDA wWID5NDX4X DAwMD SeXH5sHyRh MDAwN jUxNTggMDA wMDAg biAKMDAwMD A2NTI wNyAwMDAwM CBuIA owMDAwMDY1 MjU2I DAwMDAwIG4 gCjAw MDAwNjUzMD QgMDA wMDAgbiAKM DAwMD L4RGD8UhPe MDAwM CBuIAowMDA wMDY1 NDAxIDAwMD AwIG4 gCjAwMDAwN jU0NT AgMDAwMDAg biAKM QWzEJN4JCT 5OCAw MDAwMCBuIA owMDA pGLS3SOX7A DAwMD NcEZ6rIlJg MDAwN jD0NIFrZFA wMDAg biAKMDAwMD A2NTY 0NCAwMDAwM CBuIA owMDAwMDY1 NjkzI DAwMDAwIG4 gCjAw BGJwUbQ3FW IgMDA wMDAgbiAKM DAwMD T8AIw2KVTp MDAwM CBuIAowMDA wMDY1 NBV1LGIjLV AwIG4 gCjAwMDAwN jU4OD ggMDAwMDAg biAKM AZtLOP5YTv zNiAw MDAwMCBuIA owMDA sCOU9KKg3G DAwMD BzRH7mObHs MDAwN jYwMzMgMDA wMDAg biAKMDAwMD A2NjA 4MSAwMDAwM CBuIA owMDAwMDY2 MTMwI DAwMDAwIG4 gCjAw MDAwNjYxNz kgMDA wMDAgbiAKM DAwMD T5WfEfBeVe MDAwM CBuIAowMDA wMDY2 Idv8PEUlCB AwIG4 gCjAwMDAwN jYzMj QgMDAwMDAg biAKM EWpQAW7HbF 3MiAw MDAwMCBuIA owMDA mGGC7CPMwL DAwMD KgRM5iUzHs MDAwN cR4ScbeAVU wMDAg biAKMDAwMD A2NjU xOCAwMDAwM CBuIA owMDAwMDY2 NTY2I DAwMDAwIG4 gCjAw PNZsGyV0CV QgMDA wMDAgbiAKM DAwMD B3XgU5AjBs MDAwM CBuIAowMDA wMDY2 NzEwIDAwMD AwIG4 gCjAwMDAwN jY3NT kgMDAwMDAg biAKM LJfXJN0Rlk wNyAw MDAwMCBuIA owMDA jFNK5BQV6B DAwMD GiXJ1aHuHh MDAwN sG7QIJuWLZ wMDAg biAKMDAwMD A2Njk 1MiAwMDAwM CBuIA owMDAwMDY3 MDAxI DAwMDAwIG4 gCjAw MDAwNjcwNT AgMDA wMDAgbiAKM DAwMD Y0FxD7IPNh MDAwM CBuIAowMDA wMDY3 THH1JZGxFI AwIG4 gCjAwMDAwN jcxOT cgMDAwMDAg biAKM LZiAOI2SrV 0NiAw MDAwMCBuIA owMDA bDMX4Bmc6D DAwMD TxTM9qUpZo MDAwN jczNDQgMDA wMDAg biAKMDAwMD A2NzM 5MyAwMDAwM CBuIA owMDAwMDY3 NDQxI DAwMDAwIG4 gCjAw LHFfIbk5NS AgMDA wMDAgbiAKM DAwMD T3YcGuTWWn MDAwM CBuIAowMDA wMDY3 ZXs1HUEdGJ AwIG4 gCjAwMDAwN jc2Mz UgMDAwMDAg biAKM BYzWBX0YdF 4NCAw MDAwMCBuIA owMDA iXYC7XbRqP DAwMD OsKH6vLgJq MDAwN px1YKBlBIA wMDAg biAKMDAwMD A2Nzg yOSAwMDAwM CBuIA owMDAwMDY3 ODc4I DAwMDAwIG4 gCjAw KWNfJpw3Ib YgMDA wMDAgbiAKM DAwMD J5Irf1AJGy MDAwM CBuIAowMDA wMDY4 MDIyIDAwMD AwIG4 gCjAwMDAwN jgwNz AgMDAwMDAg biAKM MYuNUY4SHZ xOSAw MDAwMCBuIA owMDA mFDZ5XVW9K DAwMD RrBI7nNdZf MDAwN jgyMTYgMDA wMDAg biAKMDAwMD A2ODI 2NSAwMDAwM CBuIA owMDAwMDY4 MzE0I DAwMDAwIG4 gCjAw MDAwNjgzNj IgMDA wMDAgbiAKM DAwMD P1JLQkKCEl MDAwM CBuIAowMDA wMDY4 JUI5UGUnVL AwIG4 gCjAwMDAwN jg1MD YgMDAwMDAg biAKM HRsHPF5JCQ 1NCAw MDAwMCBuIA owMDA kWSS2OpVwO DAwMD UtES6oFxXi MDAwN uo9ICVoULT wMDAg biAKMDAwMD A2ODc wMCAwMDAwM CBuIA owMDAwMDY4 NzQ5I DAwMDAwIG4 gCjAw UHYfRjr1CD ggMDA wMDAgbiAKM DAwMD P5GEb1IiCn MDAwM CBuIAowMDA wMDY4 CYz9FKSaUR AwIG4 gCjAwMDAwN jg5ND MgMDAwMDAg biAKM COqBBU7JFP 2MSAw MDAwMCBuIA p0cmF kyUOgVle1F 0luZm 8gMTgzIDAg Ui9JR MFlVFZ4VPt 0YWQx HDP3VcD2WR QxZWV vX6KeVDMpI DE3Zm F1Pnr3WDJ6 NGY2M iX7R1SfTLC 1YjNm Ruy5MQTjSX RiMGU 6CW6iY6Cmm 3QgMT RlZFQBF1Ge emUgM Pb5Kj4Nd8E hcnR4 eeZgVoz5YV QyCiU mSJ6GFy== ID Date Data Source [id number] 02/15/2020 07:22:00 AM EDT [facility] Name Value Range Interpretation Description Data Sup porting Code Source(s) Document(s ) UA Color Yellow NO [facility] UA Appear Clear NO [facility] UA pH 5.0-8.0 NO [facility] UA Spec Grav 1.010 1.005-1.030 NO [facility] UA Glucose Negative NO [facility] UA Ketones Negative AB [facility] UA Urobilinogen 0.2-1.0 NO [facility] UA Bili Negative NO [facility] UA Blood Negative NO [facility] UA Protein Negative NO [facility] UA Nitrite Negative NO [facility] UA Leuk Est Negative NO [facility] ID Date Data Source [id number] 02/15/2020 05:29:00 AM EDT [facility] Name Value Range Interpretation Description Data Sup porting Code Source(s) Document(s ) pH [place]son 7.31 7.31-7.41 NO [facility] pCO2 [place] 30 mmHg 38-42 LO [facility] pO2 [place] 72 mmHg 40-100 NO [facility] HCO3 [place] 15.1 20.0-26.0 [facility] mmol/L [facility] BE(B) Judson -9.8 -2.0-2.0 [facility] mmol/L [facility] CO2 Totl [place]son 16 22-26 [facility] sO2m [place]son 97 % vol 40-70 [facility] [facility] Name: [facility] VERIFIED by Discern Expert. Draw Date: [facility] VERIFIED by Discern Expert. Draw Time: [facility] VERIFIED by Discern Expert. Analyzed Date [facility] VERIFIED by Discern Expert. Analyzed Time [facility] VERIFIED by Discern Expert. ID Date Data Source [id number] 02/15/2020 05:04:00 AM EDT [facility] Name Value Range Interpretation Code Description Data Mariana rce(s) Supporting Document(s ) Rapid Negative [facility] COVID19 [facility] ID NOW COVID-19 assay performed on the [employer] ID NOW Instrument is a rapid molecular in vitro diagnostic test utilizing an is othermal nucleic acid amplification technology intended for the qualitative detection of nucleic acid from the SARS-CoV-2 viral RNA. CD:[id number] [facility] CD:[id number] [facility] [email or web address]_SOURCE ID Date Data Source [id number] 02/15/2020 04:39:00 AM EDT [facility] Patient Name: JHONATAN OROZCO ANEMRN: [id number] General DiagnosticACCESSION EXAM DATE/TIME PROCEDURE ORDERING PROVIDER [id number] 02/15/2020 04:33 EDT XR Chest Portable Jamaal Grissom MD Auth (Ve rified)Reason For Exam(XR Chest Portable) Chest PainReportPROCEDURE: Radiograph P ortable Chest 1 ViewCLINICAL HISTORY: Shortness of BreathSCRIPT INFORMATION: S OBCOMPARISON: 02/06/2020TECHNIQUE:Anteroposterior radiog raphic view of the chest was performed.FINDINGS:The lungs are clear.T here is no evidence for pleural effusion.There is no evidence for pneumo thorax.The heart is unremarkable.The mediastinum and hilar soft tissues are u nremarkable.The bony thorax is unremarkable.IMPRESSION:Normal chest rad iograph.Thank you for allowing us to participate in the evaluation of this pa tient. Final Dictated: Inna LAFLEUR, Gonzales Garrett 02/15/20 04:38Signed: Linn liu MD, Gonzales Garrett 02/15/20 04:39Transcribed by: [facility] Name Value Range Interpretation Code Description Data Mariana rce(s) Supporting Document(s ) ID Date Data Source [id number] 02/15/2020 04:38:00 AM EDT [facility] Name Value Range Interpretation Code Description Data Supporting Source(s) Document(s ) Troponin- <0.03 <=0.05 [facility] I ng/mL [facility] ID Date Data Source [id number] 02/15/2020 04:37:00 AM EDT [facility] Name Value Range Interpretation Description Data Sup porting Code Source(s) Document(s ) Magnesium 1.9 mg/dL 1.6-2.6 NO [facility] ID Date Data Source [id number] 02/15/2020 04:37:00 AM EDT [facility] Name Value Range Interpretation Code Description Data Mariana rce(s) Supporting Document(s ) Lipase Lvl 31 IU/L 22-51 NO [facility] ID Date Data Source [id number] 02/15/2020 04:37:00 AM EDT [facility] Name Value Range Interpretation Description Data Sup porting Code Source(s) Document(s ) Glucose Lvl 97 mg/dL 65-99 NO [facility] BUN 3.5 6.0-20.0 [place] mg/dL [facility] Creatinine 0.74 0.40-1.0 [place] mg/dL 0 [facility] BUN/Creat 4.7 7.0-29.0 [place] Ratio ratio [facility] Sodium Lvl 137 136-145 [place] mmol/L [facility] Potassium Lvl 3.7 3.5-5.1 [place] mmol/L [facility] Chloride 104 98-107 [place] mmol/L [facility] CO2 17 23-29 [place] mmol/L [facility] AGAP 16 5-15 HI [facility] Calcium Lvl 9.3 8.6-10.0 NO [place] mg/dL [facility] Total Protein 7.7 6.0-8.3 [place] gm/dL [facility] Albumin Lvl 4.0 3.5-5.0 NO [place] gm/dL [facility] Glob 3.7 2.0-4.5 [place] gm/dL [facility] A/G Ratio 1.1 1.0-2.2 NO [place] ratio [facility] Bili Total 1.5 0.3-1.2 [place] mg/dL [facility] Alk Phos 140 IU/L 38-126 HI [facility] AST 30 IU/L 15-41 NO [facility] ALT 16 IU/L 7-40 [facility] ID Date Data Source [id number] 02/15/2020 04:36:00 AM EDT [facility] Name Value Range Interpretation Description Data Sup porting Code Source(s) Document(s ) Lactic Acid 1.8 mmol/L <=2.0 NO [place] Lvl [facility] ID Date Data Source [id number] 02/15/2020 04:29:00 AM EDT [facility] Added by Discern Rule GLB_ADD_GFR_CMP Name Value Range Interpretation Code Description Data Mariana rce(s) Supporting Document(s ) eGFR-AA >90 >=60 NO [facility] mL/min/1.[address] [facility] The MDRD 4-Variable IDMS traceable Equat ion for non- individuals is used to calculate the estimated glomerul ar filtration rate (GFR). To estimate the GFR for Americans, multiply the prov ided GFR result by 1.16. The MDRD 4-Variable IDMS traceable Equation is validated in individuals 18 years of age or older. It is less accurate in patients with extremes of muscle mass, restriction of dietary protein, ingestion of creatine, extra-re nal metabolism of creatinine, or treatment with medications that affect renal tubul ar creatinine secretion.GFR Categories in Chronic Kidney Disease (CKD)GFR Category : GFR (mL/min/1.73 m2): Interpretation: G1 90 or greater Normal or high* G2 60-89 Mild decrease*G3a 45-59 Mild to moderate [id number] 30-44 Moderate to severe decreaseG4 15-29 Severe decreaseG5 14 or less Kidney failure eGFR-SUDHIR 78 mL/min/1.73m2 >=60 NO [facility] The MDRD 4-Variable IDMS traceable Equat ion for non- individuals is used to calculate the estimated glomerul ar filtration rate (GFR). To estimate the GFR for Americans, multiply the prov ided GFR result by 1.16. The MDRD 4-Variable IDMS traceable Equation is validated in individuals 18 years of age or older. It is less accurate in patients with extremes of muscle mass, restriction of dietary protein, ingestion of creatine, extra-re nal metabolism of creatinine, or treatment with medications that affect renal tubul ar creatinine secretion.GFR Categories in Chronic Kidney Disease (CKD)GFR Category : GFR (mL/min/1.73 m2): Interpretation: G1 90 or greater Normal or high* G2 60-89 Mild decrease*G3a 45-59 Mild to moderate [id number] 30-44 Moderate to severe decreaseG4 15-29 Severe decreaseG5 14 or less Kidney failure ID Date Data Source [id number] 02/15/2020 04:29:00 AM EDT [facility] Name Value Range Interpretation Description Data Sup porting Code Source(s) Document(s ) Phosphorus 2.8 mg/dL 2.5-5.0 [facility] ID Date Data Source [id number] 02/15/2020 04:25:00 AM EDT [facility] Name Value Range Interpretation Code Description Data Mariana rce(s) Supporting Document(s ) INR 1.2 ratio 0.9-1.2 [facility] Indications INRProphylaxis of venous thromo-embolism: Non-hip surgery..... ..........................1.5 - 2.5 Hip surgery................................. ..2.0 - 3.0Deep Vein Thrombosis or Pulmonary Embolism........2.0 - 3.0Prevention of s ystemic embolism in valvular heart disease, tissue prosthetic heart valvesor acute NM.......................................2.0 - 3.5Prevention of embolism in mechanical heartvalves or recurrent systemic embolism.............3.0 - 4.5 PT 14.5 second(s) 10.2-12.9 [facility] ID Date Data Source [id number] 02/15/2020 04:14:00 AM EDT [facility] Name Value Range Interpretation Description Data Sup porting Code Source(s) Document(s ) Neut Auto 70.8 % 50.0-80.0 [facility] Lymph Auto 18.7 % 14.0-44.0 NO [facility] [place] Auto 8.5 % 0.0-12.0 NO [facility] Eos Auto 0.5 % 0.0-7.0 NO [facility] Baso Auto 1.5 % 0.0-3.0 NO [facility] Neut 6.8 2.0-8.4 NO [place] Absolute x10(3)/[facility] Lymph 1.8 0.6-4.8 NO [place] Absolute x10(3)/[facility] [place] 0.8 0.0-1.1 NO [place] Absolute x10(3)/[facility] Eos Absolute 0.0 0.0-0.5 NO [place] x10(3)/[facility] Baso 0.1 0.0-0.3 NO [place] Absolute x10(3)/[facility] ID Date Data Source [id number] 02/15/2020 04:14:00 AM EDT [facility] Name Value Range Interpretation Description Data Sup porting Code Source(s) Document(s ) WBC 9.6 4.0-10.5 [place] x10(3)/[facility] RBC 5.13 3.80-5.20 NO [place] x10(6)/[facility] Hgb 12.2 11.4-15.1 NO [place] gm/dL [facility] Hct 38.8 % 36.0-46.0 NO [facility] MCV 76 fL 80-98 LO [facility] MCH 23.8 pg 26.0-34.0 LO [facility] MCHC 31.5 32.0-36.0 LO van gm/dL [facility] RDW 18.9 % 11.0-15.0 [facility] Platelet 362 150-400 NO Health System x10(3)/[facility] MPV 7.4 fL 8.5-13.0 LO [facility] ID Date Data Source {[id number] 02/16/2020 12:37:00 AM EDT [facility] [id number]} [facility] Patient: MARIELA ROME Age: 69 years Sex: Female : 1950 Associated Diagnoses: Dysphagia Author : Jamaal Grissom MD Basic Information Time seen: Date and time 02/15/2020 03:18 :00, 02/15/2020, 3:18. History source: Patient. Arrival mode: Private vehicle. History limitation: None. Additional information[facility] : Chief Complaint 02/15/2020 3:15 EDT Chief Complaint from home, reports she has not been able to eat or drink for on going x2 weeks due t o gerd and hernia. She is reporting spasms and pain in her throat and feeling like her throat is closing up.speaking in full sentences. pt unable to take deep breath . . History of Present Illness 69 year old female with a personal medical history o f GERD, anxiety, asthma, hyperlipidemia, migraines hypertension; no pertinent fam pradip or surgical history presents to the [facility] emergency department for evaluation of throat pain and swelling for the past 2 weeks. The disha ent has had a prior history of current symptoms for which she has had a recent visits to the emergency department for symptom evaluation with no acute finding s. Patient reports having gone to her ENT specialist recently where she got a naso pharyngoscopy with no acute findings and was advised to present to the ED due to the patient being unable to tolerate solids or fluids orally. Patient reports no recen t falls, injuries, surgeries, trauma, travel, exposure to COVID-19 individuals, and lema s not been tested for COVID-19. Patient reports allergies to amoxicillin, azithr omycin, Compazine, flu vaccination, latex, Lipitor, Norvasc, omeprazole, penicillin s, propranolol sulfa medications, Zithromax. Patient is a non-smoker, does not drink frequently, does not take illicit drugs. The patient does not report having headache, dizziness, fever, sweats, chills, chest pain, shortness of breath, cough, back p ain, abdominal pain, nausea, vomiting, diarrhea, numbness and tingling to dista l extremities or any other symptoms at this time.PCP: Clary Morejon Review of Syste ms Constitutional symptoms: No fever, no chills, no sweats. Skin symptoms: No j aundice, no rash. Eye symptoms: No recent vision problems, ENMT symptoms: No ear pain, no sore throatThroat: Pain. Respiratory symptoms: No shortness of b reath, no cough, no wheezing. Cardiovascular symptoms: No chest pain, no palpitation s, no syncope. Gastrointestinal symptoms: No abdominal pain, no nausea, no vomitin g, no diarrhea, no constipation. Genitourinary symptoms: No dysuria, no hematuria. Musculoskeletal symptoms: No back pain, no Joint pain. Neurologic sy mptoms: No headache, no altered level of consciousness, no numbness, no weakness. Health Status Allergies: Allergic Reactions (Selected)Severity Not Documen tedAmoxicillin- No reactions were documented.Azithromycin ophthalmic- No r eactions were documented.Compazine- No reactions were documented.Cranberry- No reactions were documented.Flu vaccines- Pneumonia.Grapes- No reactions were docu mented.Latex- No reactions were documented.Latex Exam Gloves MISC- No re actions were documented.Lipitor- No reactions were documented.Norvasc- Tachycardia.Ome prazole- No reactions were documented.Penicillin- Rash.Penicillins- No reactions were documented.Propranolol- Asthma.Shellfish- Rash.Sulfa drugs- Rash .Zithromax- No reactions were documented.. Medications: (Selected) PrescriptionsPr escribedLidoderm 5% topical film: 1 patch(es), TOP, Daily, for 7 day(s), PRN : Pain, 30 patch(es), 0 Refill(s)Protonix 40 mg oral granule, enteric coated: 40 mg, 1 EA, Oral, BID, for 30 day(s), 60 abs, 0 Refill(s)Robaxin-750 oral tablet: 1,500 mg, 2 tab, Oral, TID, for 7 day(s), 22 tab, 0 Refill(s)Valium 2 mg oral tablet: 2 mg, 1 tab, Oral, QID, for 3 day(s), PRN: Spasm, 12 tab, 0 Refill(s)Valium 2 mg oral tabl et: 4 mg, 2 tab, Oral, BID, for 3 day(s), only if needed. do not take wit other b enzodiazepoimes, or alcohol, PRN: for anxiety, 6 tab, 0 Refill(s)Zofran ODT 4 mg oral tablet, disintegratin mg, 1 tab, Oral, TID, PRN: Nausea/Vomiting, 10 tab, 0 Refill(s)albuterol 2.5 mg/3 mL (0.083%) inhalation solution: 2.5 mg, 3 mL, NEB, q6hr (specified start), PRN: for wheezing, 25 EA, 0 Refill(s)diltiazem 360 mg/24 hours oral capsule, extended release: 360 mg, 1 cap, Oral, Daily, 30 cap, 0 Refill(s)ibu profen 600 mg oral tablet: 600 mg, 1 tab, Oral, q6hr (specified start), PRN: for p ain, 21 tab, 0 Refill(s)lansoprazole 30 mg oral tablet, disintegratin mg, 1 ta b, Oral, Daily, 7 tab, 0 Refill(s)losartan 25 mg oral tablet: 25 mg, 1 tab, Oral, Cesar y, 90 tab, 1 Refill(s)nitroglycerin 0.6 mg/hr transdermal film, extended release: 1 pa tch(es), TOP, Daily, 30 patch(es), 0 Refill(s)propranolol 10 mg oral tablet: 10 mg, 1 tab, Oral, BID, 60 tab, 0 Refill(s)Documented MedicationsDocumente dDiphenhist 25 mg oral tablet: 25 mg, 1 tab, Oral, BID, PRN: as needed, 0 Refill(s)Ve ntolin HFA: INH, QID, 0 Refill(s)Vitamin D3 2000 intl units oral tablet: Oral, Daily , 0 Refill(s)aspirin: 81 mg, Oral, Daily, 0 Refill(s)busPIRone 15 mg oral tablet: 15 mg, 1 tab, Oral, TID, 270 tab, 0 Refill(s)simvastatin: 40 mg, Oral, Daily , 0 Refill(s). Past Medical/ Family/ Social History Medical history: Reviewed as doc umented in chart, GERD, anxiety, asthma, hyperlipidemia, hypertension. Surgical h istory: not pertinent. Family history: not pertinent. Social history: nonsmoker. Pr oblem list: Active Problems (10)Acid reflux Angina pectoris Anxiety Asthma Chest millicent n Hyperlipidemia Hypertension Obstructive sleep apnea Pre-operative cardiovascular examination Shortness of breath , per nurse's notes. Physical Examination Vital Signs Vital Signs 02/15/2020 3:10 EDT Temperature Oral 98.7 DegF Systolic Blood Pressure 144 mmHg HI Diastolic Blood Pressure 94 mmHg >HHI Heart Rate Monit ored 105 bpm HI Respiratory Rate 20 br/min . Per nurse's notes. Measure ments 02/15/2020 3:15 EDT Clinical Weight 59.0 kg Body Mass Index Measured 23.94 kg/m2 Body Mass Index Measured 23.94 kg/m2 Height/Length Measured 157 cm . Basic Ox ygen Information 02/15/2020 3:10 EDT SpO2 100 % . Gener al: Alert, no acute distress, Speaking in full sentences, nontoxic, appears well n ourished/well developed. Skin: No rash. Head: Normocephalic, atraumatic. Neck: Supple. Eye: Extraocular movements are intact, vision grossly normal. Ears, no se, mouth and throat: Oral mucosa moist. Cardiovascular: Regular rate and rhythm , No murmur. Respiratory: Lungs are clear to auscultation, respirations are non-la bored. Chest wall: No tenderness. Musculoskeletal: Normal ROM, normal str ength, no tenderness, no swelling. Gastrointestinal: Soft, Nontender, Non distended, Guarding: Negative, Rebound: Negative, Signs: McBurney's negative, Mu rphy's negative. Neurological: Alert and oriented to person, place, time, and sit uation, No focal neurological deficit observed, normal motor observed, normal coordination observed. Lymphatics: No lymphadenopathy. Psychiatric: Cooperati ve, appropriate mood and affect. Medical Decision Making Differential Diagnosis: globus hystericus. Rationale: 69 year old female with a personal medical history o f GERD, anxiety, asthma, hyperlipidemia, migraines hypertension; no pertinent fam pradip or surgical history presents to the [facility] emergency department for evaluation of throat pain and swelling for the past 2 weeks. Plan is to order meds, labs, CXR, EKG, and reassess patient's condition based on further fin dings. Patient is undergoing testing/treatment during the COVID-19 pa ndemic. Therefore, per our hospital protocol, we are limiting exposure to one physicia n. The physical exam that has been performed by the examining physician has been disc ussed or reviewed and this will represent my own physical exam. This is done to help stop unnecessary exposure, transmission of disease, and to protect health care work ers and the community. Saw patient with appropriate PPE. . Documents reviewed: Emergency department nurses' notes, prior records. Orders Launch Order Profile ( Selected) Inpatient OrdersOrderedEKG: Lidocaine Viscous: 15 mL, Oral, OnceMyla nta: 30 mL, Oral, Once, PRN: IndigestionNS Bolus: 1,000 mL, IV Bolus, OnceZofran: 4 mg, 2 mL, IV Push, Oncesucralfate: 1 gm, 10 mL, Oral, OnceOrdered (Dispatched)Rapid COV19: Urinalysis (UA) with Reflex Culture: Ordered (Exam Ordered)XR Chest (CXR) Por table: Ordered (In-Lab).Glomerular Filtration Rate: CBC w/ Auto Diff: CMP: Differentia l, Automated: Lactate Level: Lipase Level: Magnesium Level: PT/INR: Phosphorus Leve l: Troponin-I: . Electrocardiogram: Time 02/15/2020 04:42:00, rate 95, normal sinu s rhythm, No ST-T changes, no ectopy, normal CT and QRS intervals. Results review: Lab results : Lab View 02/15/2020 4:05 EDT WBC 9.6 x10(3)/mcL RBC 5.13 x10(6)/mcL Hgb 12.2 gm/dL Hct 38.8 % MCV 76 fL LOW MCH 23.8 pg LOW MCHC 31.5 gm/dL LOW RDW 18.9 % HI Platelet 362 x10(3)/mcL MPV 7.4 fL LOW Neut Auto 70.8 % Lymph Auto 1 8.7 % [place] Auto 8.5 % Eos Auto 0.5 % Baso Auto 1.5 % Neut Absolute 6.8 x10(3)/mc L Lymph Absolute 1.8 x10(3)/mcL [place] Absolute 0.8 x10(3)/mcL Eos Absolute 0. 0 x10(3)/mcL Baso Absolute 0.1 x10(3)/mcL INR 1.2 ratio PT 14.5 second(s) HI Gl ucose Lvl 97 mg/dL BUN 3.5 mg/dL LOW Creatinine 0.74 mg/dL eGFR-AA >90 mL/mi n/1.73m2 eGFR-SUDHIR 78 mL/min/1.73m2 BUN/Creat Ratio 4.7 ratio LOW Sodium L vl 137 mmol/L Potassium Lvl 3.7 mmol/L Chloride 104 mmol/L CO2 17 mmol/L LOW AGAP 16 HI Calcium Lvl 9.3 mg/dL Phosphorus 2.8 mg/dL ALT 16 IU/L AST 3 0 IU/L Alk Phos 140 IU/L HI Total Protein 7.7 gm/dL Albumin Lvl 4.0 gm/dL Glob 3 .7 gm/dL A/G Ratio 1.1 ratio Bili Total 1.5 mg/dL HI Lactic Acid Lvl 1.8 mmol/L L ipase Lvl 31 IU/L Magnesium 1.9 mg/dL Troponin-I <0.03 ng/mL , Interpretation Consistent with previous results. Radiology results: * Final Report *Reaso n For ExamChest PainReportPROCEDURE: Radiograph Portable Chest 1 ViewCLINICAL HISTORY: Shortness of BreathSCRIPT INFORMATION: SOBCOMPARISON: 02/06/2020TE HNIQUE:Anteroposterior radiographic view of the chest was performed.FINDINGS:The char[place] gs are clear.There is no evidence for pleural effusion.There is no evidence for pneumo thorax.The heart is unremarkable.The mediastinum and hilar soft tissues are u nremarkable.The bony thorax is unremarkable.IMPRESSION:Normal chest rad iograph.Thank you for allowing us to participate in the evaluation of this pa tient.Signature Line Final Dictated: Gonzales Keith MD 0 02/15/20 04:38Signed: Gonzales Keith MD 02/15/20 04:39Transcribed by: ERIKA TThis document has an image Result type: XR Chest PortableResult date: February 15, 2020 4:33 EDTResult status: Auth (Verified)Result title: XR Chest PortablePerformed by: Gonzales Amaro MD on February 15, 2020 4:38 EDTVerified by: Gonzales Keith MD on February 15, 2020 4:39 EDTEncounter info: [id number], [facility] [place] - . Ree xamination/ Reevaluation Time: 02/15/2020 04:43:00 . Notes: Patient in bed. Explai ching in lay terms ED diagnosis, and available results, and informed them of ED plan fo r patient to remain in the hospital for further treatment. Patient understands a nd agrees with plan of care. All questions answered. Impression and Plan Diagnosis Dysphagia - [id number] R13.10, Admitting Calls-Consults - 02/15/2020 04:43:00 , Uday fernandez MD, Mariela Lopez, consult, Discussed patient and patient's condition. Agrees with ED treatment and plan for patient to remain in the hospital under their care. Plan Con dition: Stable. Disposition: Admit time 02/15/2020 04:44:00, Dc LAFLEUR, Mariela Denny ounseled: Patient, Regarding diagnosis, Regarding diagnostic results, Regarding treatment plan, Patient indicated understanding of instructions. Addendu m Attestation: Scribe Attestation: Jacob Lyon, 02/15/2020 03:18:00, Scribing for and in the presence of,Jaciel MD, Faizan Hassaan, Provider Attestation: I cordeliayesenia jayshree performed the services described in the documentation, reviewed and edited the d ocumentation which was dictated to the scribe in my presence and it accurately records my words and actions.Jaciel MD, Faizan Hassaan.02/15/2020 04:10:27 Comment by: Michelle Albrecht all info up to date, insurance active, ok to tx and bill insu ruby Thien Michelle kilgore [address] [place] [address] [id number] AJIT BURT [id number], [id number] lectronically signed by Jamaal Grissom MD 02/16/2020 00:37 EDTElectronically signed by Jacob Lyon 02/15/2020 04:54 EDT Jacob Lyon Name Value Range Interpretation Code Description Data Mariana rce(s) Supporting Document(s ) ID Date Data Source {[id number] 02/14/2020 05:03:00 PM EDT [facility] [id number]} [facility] Patient: MARIELA ROME Age: 69 years Sex: Female : 1950 Associated Diagnoses: Globus pharyngeu s; Anxiety Author: Alexx LAFLEUR, Brie Jackson Basic Information Addendum: Trina wren of addendum:: 02/13/2020 07:11:00 , Assumed care from: Joe Mera DO, Time 02/02 07:00:00. The patient is a 69 year old female with a past medical history of an xiety presenting to the ED for evaluation of reoccurring dysphagia. The patient is wa iting on reassessment s/p medications and fluids. Medical Decision Making Docum ents reviewed: Emergency department nurses' notes, emergency department records, luis or records. Reexamination/ Reevaluation Time: 02/13/2020 08:32:00 . Vital signs B asic Oxygen Information 02/13/2020 7:04 EDT Oxygen Therapy Room air SpO2 100 % 02/12 5:25 EDT Oxygen Therapy Room air SpO2 98 % 02/13/2020 4:47 EDT Oxygen Therapy R oom air SpO2 99 % Notes: The patient is resting comfortably in bed with improved symptoms, tolerating PO in the ED and requesting discharge. Discussed the plan to discharge the patient home and instructed the patient to follow up with her PCP in 3-5 days. Additional verbal discharge instructions discussed with the patient including strict return precautions. The patient understands and agrees to the tr eatment plan. All questions addressed at this time.. Impression and Plan Diagnosis Gl obus pharyngeus - [id number] R09.89, Discharge Anxiety - OAS46-MP F41.9, Discharge Atte station Scribe Attestation: Kaila Morel, 02/13/2020 07:11:00, Scribing fo r and in the presence of,, Alexx LAFLEUR, Brie Martínez Provider Attestation: I pe rsonally performed the services described in the documentation, reviewed and edited t he documentation which was dictated to the scribe in my presence and it accurately records my words and actions., Alexx LAFLEUR, Brie Jackson. Plan Condi tion: Improved, Stable. Disposition: Discharged: Time 02/13/2020 08:33:00, to home. Patient was given the following educational materials: Understanding Anx iety Disorders. Follow up with: Clary Morejon Within 3 to 5 days Call for foll [facility] appointment. Counseled: Patient, Regarding diagnosis, Regarding diagnosti c results, Regarding treatment plan, Patient understood.02/13/2020 05:05:41 Comment b y: Kevin David PT CONFIRMED PCP, PT NOT INTERESTED IN PORTAL [address] [place] [address] [id number] edicaid AJIT [id number] sign ed by Brie Coffey MD 02/14/2020 17:03 EDTElectronically signed by Kaila Morel 02/13/2020 08:36 EDT Name Value Range Interpretation Code Description Data Mariana rce(s) Supporting Document(s ) ID Date Data Source {[id number] 02/20/2020 05:49:00 AM EDT [facility] [id number]} [facility] Patient: MARIELA ROME Age: 69 years Sex: Female : 1950 Associated Diagnoses: None Author: Joe Valenzuela DO Basic Information Time seen: 02/13/2020, 4:56. Additional inform ation: Chief Complaint from Nursing Triage Note : Chief Complaint 02/13/2020 4:47 ED T Chief Complaint Pt BIBA from home with c/o throat spasms . His tory of Present Illness Patient is a 69 year old female with a history of anxiety pre senting to the ED for evaluation of dysphagia. Patient states that she is lema ving her usual dysphagia for which she has been seen here for multiple times in the past few weeks. Patient has a history of this with a EGD in Nov 2018 which reveal ed Schatzki ring and she says it is difficult to swallow solids but she is able to swa llow liquids. Patient's symptoms normally resolve with Benzos. She has been here r ecently and treated with benzos with resolution of symptoms. Pt denies fever, chills, CP, SOB, abd pain, nausea, vomiting, diarrhea, or urinary symptoms. Patient h as no other complaints at this time. Review of Systems Constitutional symptoms: No fever, no chills, no sweats. Skin symptoms: No rash, Eye symptoms: Vision unchange d. ENMT symptoms: Dysphagia, no sore throat, no nasal congestion. Respiratory sympto ms: No shortness of breath, no cough. Cardiovascular symptoms: No chest pain, Gastrointestinal symptoms: No abdominal pain, no nausea, no vomiting, no diarrhe a. Genitourinary symptoms: No dysuria, no hematuria. Musculoskeletal symptoms: N o back pain, Neurologic symptoms: No headache, no dizziness. Health Status Allergies: Allergic Reactions (Selected)Severity Not DocumentedAmoxici llin- No reactions were documented.Azithromycin ophthalmic- No r eactions were documented.Compazine- No reactions were documented.Cranberry- No reactions were documented.Flu vaccines- No reactions were documented.Grapes- No reese ctions were documented.Latex- No reactions were documented.Latex Exam Gloves MISC- No reactions were documented.Lipitor- No reactions were documented.Norvasc- No re actions were documented.Omeprazole- No reactions were documented.Penicillin- No reactions were documented.Penicillins- No reactions were documented.Shellfish- No reactions were documented.Sulfa drugs- No reactions were documented.Zithromax- No reactions were documented.. Medications: (Selected) PrescriptionsPrescribedLidode rm 5% topical film: 1 patch(es), TOP, Daily, for 7 day(s), PRN: Pain, 30 patch(es), 0 Refill(s)Protonix 40 mg oral granule, enteric coated: 40 mg, 1 EA, Oral, BID, for 30 day(s), 60 abs, 0 Refill(s)Robaxin-750 oral tablet: 1,500 mg, 2 tab, Oral, TID, for 7 day(s), 22 tab, 0 Refill(s)Valium 2 mg oral tablet: 2 mg, 1 tab, Oral, QID, for 3 day(s), PRN: Spasm, 12 tab, 0 Refill(s)Valium 2 mg oral tablet: 4 mg, 2 tab, Oral, BID, for 3 day(s), only if needed. do not take wit other benzodiaz epoimes, or alcohol, PRN: for anxiety, 6 tab, 0 Refill(s)Zofran ODT 4 mg oral tablet, disintegratin mg, 1 tab, Oral, TID, PRN: Nausea/Vomiting, 10 tab, 0 Refill(s)albu terol 2.5 mg/3 mL (0.083%) inhalation solution: 2.5 mg, 3 mL, NEB, q6hr (speci fied start), PRN: for wheezing, 25 EA, 0 Refill(s)diltiazem 360 mg/24 hours oral capsule, extended release: 360 mg, 1 cap, Oral, Daily, 30 cap, 0 Refill(s)ibuprofe n 600 mg oral tablet: 600 mg, 1 tab, Oral, q6hr (specified start), PRN: for pain, 2 1 tab, 0 Refill(s)lansoprazole 30 mg oral tablet, disintegratin mg, 1 tab, Or al, Daily, 7 tab, 0 Refill(s)losartan 25 mg oral tablet: 25 mg, 1 tab, Oral, Daily, 90 tab, 1 Refill(s)nitroglycerin 0.6 mg/hr transdermal film, extended release: 1 pa tch(es), TOP, Daily, 30 patch(es), 0 Refill(s)propranolol 10 mg oral tablet: 10 mg, 1 tab, Oral, BID, 60 tab, 0 Refill(s)Documented MedicationsDocumente dDiphenhist 25 mg oral tablet: 25 mg, 1 tab, Oral, BID, PRN: as needed, 0 Refill(s)Ve ntolin HFA: INH, QID, 0 Refill(s)Vitamin D3 2000 intl units oral tablet: Oral, Daily , 0 Refill(s)aspirin: 81 mg, Oral, Daily, 0 Refill(s)busPIRone 15 mg oral tablet: 15 mg, 1 tab, Oral, TID, 270 tab, 0 Refill(s)simvastatin: 40 mg, Oral, Daily , 0 Refill(s). Immunizations: Per nurse's notes. Past Medical/ Family/ Social His tory Medical history: Reviewed as documented in chart. Surgical history: EGD - SN (N one) on 12/02/2018 at 68 Years.Comments:12/02/2018 18:54 ELIESER romero RN, Kiersten Walter-populated from documented surgical casethyroid nodule r emoved.. Social history: . Problem list: Active Problems (10)Acid reflux A ngina pectoris Anxiety Asthma Chest pain Hyperlipidemia Hypertension Obstructive sleep apnea Pre-operative cardiovascular examination Shortness of breath . Physi tc Examination Vital Signs Vital Signs 02/13/2020 5:25 EDT Systolic Blood Pressure 114 mmHg Diastolic Blood Pressure 75 mmHg Mean Arterial Pressure, Cuff 88 mmHg Blood Pressure Site Right arm Heart Rate Monitored 91 bpm Respiratory Rate 20 br/min 02/13/2020 4:47 EDT Temperature Oral 98.6 DegF Systolic Blood Pressure 114 m mHg Diastolic Blood Pressure 92 mmHg >HHI Mean Arterial Pressure, Cuff 99 mmHg Bl ood Pressure Site Left arm Heart Rate Monitored 91 bpm Respiratory Rate 21 br /min HI . Basic Oxygen Information 02/13/2020 5:25 EDT SpO2 98 % Oxygen Therapy Room air 02/13/2020 4:47 EDT SpO2 99 % Oxygen Therapy Room air . General: Alert, anxi ous. Skin: Warm, dry, pink. Head: Normocephalic, atraumatic. Neck: Suppl e, trachea midline. Eye: Pupils are equal, round and reactive to light, extraocular movements are intact, normal conjunctiva. Cardiovascular: Regular rate and rhythm , No murmur, Normal peripheral perfusion, No edema. Respiratory: Lungs are clear to auscultation, respirations are non-labored, breath sounds are equal, Symmetrical radha st wall expansion. Gastrointestinal: Soft, Nontender, Non distended. Back: Normal alignment. Musculoskeletal: Normal ROM, no swelling. Neurological: Alert and orie nted to person, place, time, and situation, No focal neurological deficit observed, normal speech observed. Psychiatric: Cooperative, Mood and affect: Anxious. Medical Decision Making Differential Diagnosis: Anxiety. Rationale: Patient is a 69 year old female with a history of anxiety presenting to the ED for evaluat ion of dysphagia. She has been evaluated here multiple times recently for the same com plaint and treated with anxiolytics with improvement. Patient had an EDG in Nov 06 which showed Schatzki ring. After initial examination plan is to treat symptomatic ally, monitor and reassess. Pt understands and agrees with plan of care. All questi ons answered. . Documents reviewed: Emergency department nurses' notes. Orde rs Launch Order Profile (Selected) Inpatient OrdersCompletedAtivan: 2 mg, 1 mL, IV Pu sh, OnceHaldol: 5 mg, 1 mL, IM, Once. Reexamination/ Reevaluation Time: 07:00:00 . Notes: Case endorsed and patient care transitioned to Dr. Jose Miguel roe Impression and Plan Plan Disposition: Patient care transitioned to: Time: 02/12 07:00:00, Alexx LAFLEUR, Brie Martínez Addendum Teaching-Supervisory Addendum -Brief Notes: EMR and Dragon Attestation -this medical document was created using an electronic medical record system with [employer] computerized dictation system. A lthough this document has been carefully reviewed, there may still be some phonet ic and typographical errors. These errors are purely typographical due to imperfec tions of the software programs and do not reflect any compromise in the patient's medical care.. Attestation: Scribe Attestation: Kojo Briones, 0 05:39:00, Scribing for and in the presence of,Ede DO, Joel P Provider Attest ation: I personally performed the services described in the documentation, reviewed and edited the documentation which was dictated to the scribe in my presence an d it accurately records my words and actions.Ede DO, Joel P..02/13/2020 05:05:41 Comment by: Kevin David PT CONFIRMED PCP, PT NOT INTERESTED IN PORTAL ----Kevin David[address] [id number] d [facility] LEADBETTER [id number] sign ed by Joe Mera DO 02/20/2020 05:49 EDTElectronically signed by Kojo Briones 02/13/2020 06:54 EDT Name Value Range Interpretation Code Description Data Mariana rce(s) Supporting Document(s ) ID Date Data Source {[id number] 02/23/2020 02:09:00 PM EDT [facility] Brothers [id number]} [facility] Patient: MARIELA ROME Age: 69 years Sex: Female : 1950 Associated Diagnoses: None Author: Tremaine fay MD, Gabriela Krishnamurthy Basic Information Time seen: 02/11/2020 . History source: Corie cherry. Arrival mode: Walking. History limitation: None. History of Present Illness This i s a 69-year-old female with a history of hypertension, GERD, hyperlipidemia, anxi ety presented to ED with complaints of difficulty swallowing both solids and li quids of 3 weeks duration associated with throat pain,choking spells/shortness of breath. Reports her symptoms are more related to anxiety with anxiety causing throat spasms. She has been seen multiple times in the ER for similar complaints r ecently. Reports symptom improvement and resolution with Valium.. Review of Sy stems Constitutional symptoms: No fever, Skin symptoms: No jaundice, no rash. E NMT symptoms: No ear pain, no sore throat. Respiratory symptoms: Shortness of paula th, no cough, no sputum production, no wheezing. Cardiovascular symptoms: No chest pain, no palpitations, no syncope, no peripheral edema. Gastrointestinal symp toms: No abdominal pain, no nausea, no vomiting, no diarrhea. Genitourinary sy mptoms: No dysuria, Neurologic symptoms: No headache, no altered level of conscio usness, no numbness. Psychiatric symptoms: Anxiety. Hematologic/Lymphatic symptoms: No petechiae, no swollen nodes. Health Status Allergies: Allergic Reactions (A ll)Severity Not DocumentedAmoxicillin- No reactions were documented.Azithromycin o phthalmic- No reactions were documented.Compazine- No reactions were documented.Cranberry- No reactions were documented.Flu vaccines- No reactions we re documented.Grapes- No reactions were documented.Latex- No reactions were docu mented.Latex Exam Gloves MISC- No reactions were documented.Lipitor- No reactions we re documented.Norvasc- No reactions were documented.Omeprazole- No reactions were documented.Penicillin- No reactions were documented.Penicillins- No reactions wer e documented.Shellfish- No reactions were documented.Sulfa drugs- No reactions wer e documented.Zithromax- No reactions were documented.. Medications: (Selected) Pr escriptionsPrescribedLidoderm 5% topical film: 1 patch(es), TOP, Daily, for 7 day (s), PRN: Pain, 30 patch(es), 0 Refill(s)Protonix 40 mg oral granule, en teric coated: 40 mg, 1 EA, Oral, BID, for 30 day(s), 60 abs, 0 Refill(s)Robaxin-750 o ral tablet: 1,500 mg, 2 tab, Oral, TID, for 7 day(s), 22 tab, 0 Refill(s)Valium 2 mg o ral tablet: 4 mg, 2 tab, Oral, BID, for 3 day(s), only if needed. do not take wit other benzodiazepoimes, or alcohol, PRN: for anxiety, 6 tab, 0 Refill(s)Zofran ODT 4 mg oral tablet, disintegratin mg, 1 tab, Oral, TID, PRN: Nausea/Vomiting, 10 tab, 0 Refill(s)albuterol 2.5 mg/3 mL (0.083%) inhalation solution: 2.5 mg, 3 mL, NEB, q6hr (specified start), PRN: for wheezing, 25 EA, 0 Refill(s)diltiazem 360 mg/24 hours oral capsule, extended release: 360 mg, 1 cap, Oral, Daily, 30 cap, 0 Refill(s)ibu profen 600 mg oral tablet: 600 mg, 1 tab, Oral, q6hr (specified start), PRN: for p ain, 21 tab, 0 Refill(s)lansoprazole 30 mg oral tablet, disintegratin mg, 1 ta b, Oral, Daily, 7 tab, 0 Refill(s)losartan 25 mg oral tablet: 25 mg, 1 tab, Oral, Cesar y, 90 tab, 1 Refill(s)nitroglycerin 0.6 mg/hr transdermal film, extended release: 1 pa tch(es), TOP, Daily, 30 patch(es), 0 Refill(s)propranolol 10 mg oral tablet: 10 mg, 1 tab, Oral, BID, 60 tab, 0 Refill(s)Documented MedicationsDocumente dDiphenhist 25 mg oral tablet: 25 mg, 1 tab, Oral, BID, PRN: as needed, 0 Refill(s)Ve ntolin HFA: INH, QID, 0 Refill(s)Vitamin D3 2000 intl units oral tablet: Oral, Daily , 0 Refill(s)aspirin: 81 mg, Oral, Daily, 0 Refill(s)busPIRone 15 mg oral tablet: 15 mg, 1 tab, Oral, TID, 270 tab, 0 Refill(s)simvastatin: 40 mg, Oral, Daily , 0 Refill(s). Immunizations: Per nurse's notes. Past Medical/ Family/ Social His tory Medical history: GERD, hypertension, anxiety, hyperlipidemia. Surgical histor y: Subtotal thyroidectomy. Family history: Hypertension in her father and mother. S ocial history: Negative, non smoker. Physical Examination Vital Sig ns Vital Signs 02/11/2020 7:37 EDT Temperature Oral 98.6 DegF Systolic Blood Pressure 150 mmHg HI Diastolic Blood Pressure 88 mmHg Heart Rate Monitored 82 bpm Respi ratory Rate 18 br/min . Measurements 02/11/2020 7:37 EDT Clinical Weight 59.5 kg Body M ass Index Measured 24.77 kg/m2 Body Mass Index Measured 24.77 kg/m2 Height/Lengt h Measured 155 cm . Basic Oxygen Information 02/11/2020 7:37 EDT SpO2 100 % Oxygen The rapy Room air . General: Alert, general appearrance in no acute distress. Skin: Warm, dry, no rash. Head: Atraumatic. Neck: Trachea midline, no tenderness, n o JVD. Eye: Pupils are equal, round and reactive to light. Ears, nose, mouth and throat: Oral mucosa moist, no pharyngeal erythema or exudate. Cardiovascular: R egular rate and rhythm, No murmur, No edema. Respiratory: Lungs are clear to auscult ation, respirations are non-labored. Gastrointestinal: Soft, Nontender, Non distended, No organomegaly. Neurological: Alert and oriented to person, place, trina e, and situation, No focal neurological deficit observed, normal motor observed, normal speech observed. Lymphatics: No lymphadenopathy. Medical Decision Kriss hooker Differential Diagnosis: Gastroesophageal reflux disease, anxiety. Rationale: 69 -year-old female with a history of GERD, anxiety, hypertension presenting with di fficulty swallowing both solids and liquids associated with choking spells and short ness of breath. Physical examination unremarkable. History significant for raffy youngblood ER visits for similar complaints recently. Likely symptoms related to an xiety. Give IV Ativan once.. Orders Launch Order Profile (Selected) Inpatient Order sCompletedAtivan: 2 mg, 1 mL, IV Push, Once. Reexamination/ Reevaluation Time: 02/11/20 09:00:00 . Course: improving. Pain status: resolved, Able to swallow water. Assessm ent: exam unchanged. Interventions: Order Profile (Selected) Inpatient OrdersCompl etedAtivan: 2 mg, 1 mL, IV Push, Once. Impression and Plan Plan Condition: Impr mamadou, Stable. Disposition: Discharged: to home. Prescriptions: Launch Meds List ( Selected) PrescriptionsPrescribedValium 2 mg oral tablet: 2 mg, 1 tab, Oral, QID, for 3 day(s), PRN: Spasm, 12 tab, 0 Refill(s). Addendum I personally saw and examined t he patient. I have reviewed and agree with the resident's findings, including all d iagnostic interpretations and treatment plan as written. I was present for the miller po rtions of any procedures performed and inclusive time noted for any critical ca re statement. Pt with extensive dysphagia, difficulty swallowing. Sees GI. Afebrile , not clinically dehydrated. Likely does need further workup and intervention, stable now and can follow up. Spasm/anxiety also possible with some improvement post-ativ an.02/11/2020 08:21:17 Comment by: Joey Rubio PCP verified, ins info on damir e. Pt verbally consented to be treated and bill the insurance, and medicare appeal form --Joey Rubio [id number] [id number] AJIT [id number] signed by Gabriela Worthy MD 02/23/2020 14:09 EDTElectronically nash d by Quinten Valencia 02/11/2020 09:30 EDT Name Value Range Interpretation Code Description Data Mariana rce(s) Supporting Document(s ) ID Date Data Source {[id number] 02/07/2020 11:34:00 AM EDT [facility] [id number]} [facility] Patient: MARIELA ROME Age: 69 years Sex: Female : 1950 Associated Diagnoses: Dysphasia; Hyper tension; Anxiety Author: Aimee ANDRADE, Amanuel Rutledge Basic Information Time seen: 020 02/07/2020 02/06/2020 02/06/2020 , 10:40 11:14 14:32 7:25 . Additional informatio n: Chief Complaint from Nursing Triage Note : Chief Complaint 02/07/2020 10:48 EDT Chief Complaint c/o HTN, pt was seen here the last 2 days for the same thing. Pt state d she cannot take her pills do to inablilty to swallow for 1 year. she was able to t jermaine losartan and valium as she crushed them. pt has an appt with the heart center at 2pm 02/06/2020 14:24 EDT Chief Complaint pt was seen in ED this morning for vomiting, pt states she developed some blurriness in L eye and gait changes and numbness to L s leonela of face 02/06/2020 6:41 EDT Chief Complaint Pt had indigestion while taking medicati ons this morning. Pt now has dry heaving and can't swallow. Pt has hystory of throid surgery. Pt not able to take BP, stomach medication. Pt has on nitro patch . His tory of Present Illness The patient presents with Seeing white lights this morning. The onset was just prior to arrival. Additional history: The patient is prese nting for evaluation after multiple ER visits over the past 2 days for waking up this morning and seeing a bright light which lasted for a few seconds. The patient s tates she also awoke at 330 this morning and felt anxious and took a anxiety pill and fell back to sleep. The patient states she has no chest pain, shortness of breath, fever, chills or difficulty breathing. The patient does have a history of hypertens ion difficulty swallowing for which she was seen for over the past 2 days and had a work-up consisting of chest x-ray, EKG and lab work and was ultimately discharged t o follow-up with GI and cardiology. The patient has a cardiology appointment at 2:00 today. The patient states she was able to take her losartan today but not her d iltiazem. The patient is currently resting comfortably with a blood pressure of 139 /89 and denying symptoms. The patient applied her Nitro-Derm patch this suzien g. Review of Systems Constitutional symptoms: No fever, no chills. Skin sy mptoms: No rash, Eye symptoms: Vision unchanged. ENMT symptoms: No ear pain, no sore throat, no nasal congestion. Respiratory symptoms: No shortness of b reath, no cough, no wheezing. Cardiovascular symptoms: Negative except as documented in HPI, no palpitations, no tachycardia, no syncope. Gastrointestinal symptoms: No abdominal pain, no nausea, no vomiting, no diarrhea. Genitourinary symptoms: No d ysuria, no hematuria. Musculoskeletal symptoms: No back pain, no Muscle pain, no Joint pain. Neurologic symptoms: No headache, no dizziness, no numbness, no tingling. Psychiatric symptoms: No depression, Allergy/immunologic symptom s: Negative except as documented in HPI. Additional review of systems infor mation: Remainder of the review of systems has been reviewed with the patient and a re otherwise negative. Health Status Allergies: Allergic Reactions (Selected )Severity Not DocumentedAmoxicillin- No reactions were documented.Azithromycin o phthalmic- No reactions were documented.Compazine- No reactions were documented.Cranberry- No reactions were documented.Flu vaccines- No reactions we re documented.Grapes- No reactions were documented.Latex- No reactions were docu mented.Latex Exam Gloves MISC- No reactions were documented.Lipitor- No reactions we re documented.Norvasc- No reactions were documented.Omeprazole- No reactions were documented.Penicillin- No reactions were documented.Penicillins- No reactions wer e documented.Shellfish- No reactions were documented.Sulfa drugs- No reactions wer e documented.Zithromax- No reactions were documented.. Past Medical/ Family/ Soci al History Medical history: No active or resolved past medical history items have been selected or recorded.. Surgical history: EGD - SN (None) on 12/02/2018 a t 68 Years.Comments:12/02/2018 18:54 ELIESER - Ferny RN, Kiersten Walter-karl from d ocumented surgical casethyroid nodule removed.. Family history: CancerMotherF atherBrotherSister. Social history: patient denies any cigarette usage. Problem list : Active Problems (10)Acid reflux Angina pectoris Anxiety Asthma Chest pain Hyper lipidemia Hypertension Obstructive sleep apnea Pre-operative cardiovascular exami nation Shortness of breath . Physical Examination Vital Signs Vital Signs 02/07/2020 11:30 EDT Systolic Blood Pressure 142 mmHg HI Diastolic Blood P ressure 92 mmHg >HHI Mean Arterial Pressure, Cuff 109 mmHg Heart Rate Alicia tored 101 bpm HI Respiratory Rate 19 br/min 02/07/2020 10:48 EDT Temperature Oral 98.3 DegF Systolic Blood Pressure 175 mmHg HI Diastolic Blood Pressure 126 mmHg >HHI Heart Rate Monitored 108 bpm HI Respiratory Rate 24 br/min W[place] 02/06/2020 19:05 EDT Temperature Oral 98.1 DegF Systolic Blood Pressure 111 mmHg Diasto lic Blood Pressure 73 mmHg Heart Rate Monitored 94 bpm Respiratory Rate 18 br /min 02/06/2020 15:30 EDT Systolic Blood Pressure 131 mmHg HI Diastolic Blood P ressure 86 mmHg Mean Arterial Pressure, Cuff 101 mmHg Heart Rate Monitored 88 bpm R espiratory Rate 29 br/min W[place] 02/06/2020 14:24 EDT Temperature Oral 98.2 DegF Systolic Blood Pressure 169 mmHg HI Diastolic Blood Pressure 80 mmHg Heart Rate Monitored 1 02 bpm HI Respiratory Rate 28 br/min HI 02/06/2020 11:21 EDT Temperature Oral 97.9 DegF Systolic Blood Pressure 144 mmHg HI Diastolic Blood Pressure 73 mmHg Mean A rterial Pressure, Cuff 97 mmHg Heart Rate Monitored 72 bpm Respiratory Rate 18 br /min 02/06/2020 10:21 EDT Temperature Oral 98 DegF Systolic Blood Pressure 116 mmHg Diastolic Blood Pressure 67 mmHg Mean Arterial Pressure, Cuff 83 mmHg Heart R ate Monitored 77 bpm Respiratory Rate 18 br/min 02/06/2020 7:47 EDT Heart Rate Alicia tored 87 bpm 02/06/2020 6:46 EDT Temperature Oral 98.6 DegF Systolic Blood Pressure 135 mmHg HI Diastolic Blood Pressure 89 mmHg Mean Arterial Pressure, Cuff 104 m mHg Heart Rate Monitored 107 bpm HI Respiratory Rate 19 br/min . Measurement s 02/07/2020 10:48 EDT Clinical Weight 60.06 kg Body Mass Index Measured 24.37 kg/m2 B leonard Mass Index Measured 24.37 kg/m2 Height/Length Measured 157 cm 02/06/2020 1 4:24 EDT Clinical Weight 60.003 kg Body Mass Index Measured 24.98 kg/m2 Body Mass In dex Measured 24.98 kg/m2 Height/Length Measured 155 cm 02/06/2020 6:41 EDT Clinic al Weight 60 kg Body Mass Index Measured 24.97 kg/m2 Body Mass Index Measured 24 .97 kg/m2 Height/Length Measured 155 cm . Basic Oxygen Information 02/07/2020 11:30 EDT SpO2 100 % 02/07/2020 10:48 EDT Oxygen Therapy Room air SpO2 100 % 02/06/2020 19 :05 EDT Oxygen Therapy Room air SpO2 100 % 02/06/2020 15:30 EDT SpO2 97 % 02/06/2020 14 :24 EDT Oxygen Therapy Room air SpO2 99 % 02/06/2020 11:21 EDT SpO2 97 % 02/06/2020 10 :21 EDT SpO2 99 % 02/06/2020 6:46 EDT SpO2 98 % . General: Alert, no acute distress. S kin: Warm, dry. Head: Normocephalic. Neck: Supple, trachea midline. Eye: Extraoc ular movements are intact, normal conjunctiva. Ears, nose, mouth and thro at: Oral mucosa moist. Cardiovascular: Regular rate and rhythm, No murmur, Norm al peripheral perfusion. Respiratory: Lungs are clear to auscultation, respirations are non-labored, breath sounds are equal, Symmetrical chest wall expansion. Gastr ointestinal: Soft, Nontender. Back: Normal range of motion. Musculoskeletal: Yamileth l ROM, normal strength. Neurological: Alert and oriented to person, place, time, and situation, No focal neurological deficit observed. Psychiatric: Cooperative. M edical Decision Making Notes: I advised the patient to return to the emergency room immediately if chest pain, shortness of breath or worse symptoms. The patient a grees with discharge and follow-up. The patient verbalizes understanding of inst ructions.. Reexamination/ Reevaluation Vital signs Basic Oxygen Information 02/07/2020 11:30 EDT SpO2 100 % 02/07/2020 10:48 EDT Oxygen Therapy Room air SpO2 100 % 2019 19:05 EDT Oxygen Therapy Room air SpO2 100 % 02/06/2020 15:30 EDT SpO2 97 % 020 14:24 EDT Oxygen Therapy Room air SpO2 99 % 02/06/2020 11:21 EDT SpO2 97 % 02/06/20 20 10:21 EDT SpO2 99 % 02/06/2020 6:46 EDT SpO2 98 % Impression and Plan Diagnosis Dys phasia - [id number] R47.02, Discharge Hypertension - [id number] I10, Discharge A nxiety - [id number] F41.9, Discharge Plan Condition: Stable. Disposition: Dischar ged: Time 02/07/2020 11:34:00, to home.02/07/2020 11:32:49 Comment by: Laurence Soto pt gave consent/ verified info --Laurence Witt[address] [id number] [facility] [id number] signed by Amanuel Yu PA-C 02/07/2020 11:34 EDT Name Value Range Interpretation Code Description Data Mariana rce(s) Supporting Document(s ) ID Date Data Source {[id number] 02/06/2020 06:57:00 PM EDT [facility] [id number]} [facility] Patient: MARIELA ROME Age: 69 years Sex: Female : 1950 Associated Diagnoses: Dysphagia Author : Eduar LAFLEUR, Neal Torres Basic Information Addendum: Time of addendum:: 02/06/2020 16 :00:00 , Assumed care from: Alexx LAFLEUR, Brie Martínez, Time 02/06/2020 16:00:00, P ertinent history: Follow up on imaging results, Patient awaiting consult (case management), 69-year-old female with a history of GERD, hyperlipidemia, anxiety , esophageal stricture, globus hystericus presents ED for evaluation of difficulty swallowing. Patient has presented to the ED frequently with her last presentation to day morning and was found to have not have any acute findings. Patient presents th e ED for similar symptoms with new onset left-sided facial numbness and left-side d facial blurred vision.. Medical Decision Making Documents reviewed: Emergency de partment nurses' notes, prior records. Orders Launch Order Profile (Selected) Inpatient OrdersOrderedDischarge Disposition ED: CompletedED Physician Consult: Gokul mann With Results (Deleted)NIH Stroke Scale Nursing: PrescriptionsPrescribedZofran O DT 4 mg oral tablet, disintegratin mg, 1 tab, Oral, TID, PRN: Nausea/Vomiting, 10 tab, 0 Refill(s)lansoprazole 30 mg oral tablet, disintegratin mg, 1 tab, Or al, Daily, 7 tab, 0 Refill(s). Results review: Lab results : Lab View 02/06/2020 14:34 EDT WBC 9.1 x10(3)/mcL RBC 5.15 x10(6)/mcL Hgb 12.1 gm/dL Hct 38.3 % MCV 74 fL LOW MCH 23.6 pg LOW MCHC 31.7 gm/dL LOW RDW 18.3 % HI Platelet 387 x10(3)/mcL MPV 7.1 fL LOW Neut Auto 68.6 % Lymph Auto 20.8 % [place] Auto 8.9 % E os Auto 0.9 % Baso Auto 0.8 % Neut Absolute 6.3 x10(3)/mcL Lymph Absolute 1.9 x10(3)/mcL [place] Absolute 0.8 x10(3)/mcL Eos Absolute 0.1 x10(3)/mcL Baso Absolu te 0.1 x10(3)/mcL INR 1.2 ratio PT 14.2 second(s) HI Glucose Lvl 118 mg/dL HI BUN 6.1 mg/dL Creatinine 0.67 mg/dL eGFR-AA >90 mL/min/1.73m2 eGFR-SUDHIR 88 m L/min/1.73m2 BUN/Creat Ratio 9.1 ratio Sodium Lvl 139 mmol/L Potassium Lvl 4.2 mmol/L Chloride 109 mmol/L HI CO2 22 mmol/L LOW AGAP 8 Calcium Lvl 9.5 mg/ dL ALT 12 IU/L AST 17 IU/L Alk Phos 129 IU/L HI Total Protein 7.6 gm/dL Album in Lvl 4.0 gm/dL Glob 3.6 gm/dL A/G Ratio 1.1 ratio Bili Total 0.6 mg/dL Troponi n-I <0.03 ng/mL ABO/Rh O POS ABSC Gel Negative ABSC 02/06/2020 8:55 EDT UA Color Dk Yellow UA Appear Cloudy UA pH 7.0 UA Spec Grav 1.026 UA Glucose Negative mg/ dL UA Ketones 80 (3+) mg/dL UA Urobilinogen 1.0 EU/mL UA Bili Small (1+) UA Blood Negative UA Protein Negative mg/dL UA Nitrite Negative UA Leuk Est Negative UA WBC 0-5 /HPF UA RBC 2-5 /HPF UA Bacteria None Seen /HPF UA Epithelial Moderate / HPF UA Mucous Moderate /LPF 02/06/2020 7:50 EDT WBC 7.2 x10(3)/mcL RBC 4.98 x10(6)/ mcL Hgb 11.9 gm/dL Hct 36.8 % MCV 74 fL LOW MCH 23.8 pg LOW MCHC 32.2 gm/dL RDW 18.2 % HI Platelet 393 x10(3)/mcL MPV 7.0 fL LOW Neut Auto 65.5 % Lymph Au to 22.5 % [place] Auto 10.3 % Eos Auto 0.9 % Baso Auto 0.8 % Neut Absolute 4.7 x10 (3)/mcL Lymph Absolute 1.6 x10(3)/mcL [place] Absolute 0.7 x10(3)/mcL Eos Absolute 0. 1 x10(3)/mcL Baso Absolute 0.1 x10(3)/mcL INR 1.3 ratio HI PT 14.6 second(s) HI Glucose Lvl 123 mg/dL HI BUN 7.9 mg/dL Creatinine 0.73 mg/dL eGFR-AA >90 mL/mi n/1.73m2 eGFR-SUDHIR 80 mL/min/1.73m2 BUN/Creat Ratio 10.9 ratio Sodium Lvl 1 37 mmol/L Potassium Lvl 3.1 mmol/L LOW Chloride 104 mmol/L CO2 21 mmol/L LOW AGAP 12 Calcium Lvl 9.4 mg/dL ALT 13 IU/L AST 17 IU/L Alk Phos 111 IU/L Total Pr otein 7.6 gm/dL Albumin Lvl 3.9 gm/dL Glob 3.7 gm/dL A/G Ratio 1.1 ratio Bili Tot al 0.7 mg/dL Lipase Lvl 21 IU/L LOW Troponin-I <0.03 ng/mL . Physical [facility] General: Alert, no acute distress, Speaking in full sentences, nontoxic, ap pears well nourished/well developed. Skin: No rash. Head: Normocephalic, atraumati c. Neck: Supple. Eye: Extraocular movements are intact, vision grossly nor mal. Ears, nose, mouth and throat: Oral mucosa moist. Cardiovascular: Regular r ate and rhythm, No murmur. Respiratory: Lungs are clear to auscultation, respira tions are non-labored. Chest wall: No tenderness. Musculoskeletal: Normal ROM , normal strength, no tenderness, no swelling. Gastrointestinal: Soft, Nont fior, Non distended, Guarding: Negative, Rebound: Negative, Signs: McBurney's neg ative, Nevarez's negative. Neurological: Alert and oriented to person, place, trina e, and situation, No focal neurological deficit observed, normal motor observed, normal coordination observed, Neurological: Alert and oriented to person, place, trina e, and situation, No focal neurological deficit observed, CN II-XII intact, norm al motor observed, normal coordination observed, normal and symmetrical reflexe s, Speech: Normal, Gait: Normal. . Lymphatics: No lymphadenopathy. Psychia tric: Cooperative, appropriate mood and affect Reexamination/ Reevaluation Time : 02/06/2020 16:00:00 . Vital signs Basic Oxygen Information 02/06/2020 15:30 EDT SpO2 97 % Notes: Patient informed of JOYCE from Dr. Jose Miguel roe Asked patient of the history of their current illness and did a physical exam. Plan is to further evaluate patient and make decisions based on further findings. Pat ient understands and agrees with plan of care. All questions answered. . Time: 02/06/2020 18:12:00 . Vital signs Basic Oxygen Information 02/06/2020 15:30 EDT SpO 2 97 % Notes: Pt is resting in bed comfortably and has no ne w complaints at this time. Informed pt. of all lab results from today's visit, as w ell as today's diagnosis, which seems to indicate dysphagia. Discussed with pt. t he consult which was held with gis programmer Dr. Jesse Muñoz, who has suggested that the patient can be seen by Dr. Epperson as an outpatientso that upper endoscopy can be performed. Also discussed with pt. strict return and car e precautions which have been listed below. Pt has also been provided contact inform ation for the [facility] help line in order to set up a mental health appointm ent. . Pt understands the importance of creating said follow up appointments and agrees to plan of care provided today. All questions have been answered at this trina e. Because of the patient's dysphasia, will provide oral disintegrating tablets for ondansetron and Lansoprazole.. Impression and Plan Diagnosis Dysphagia - [id number] R13.10, Discharge Attestation Scribe Attestation: Florence Mccurdy, 0 16:00:00, Scribing for and in the presence of,, Neal Witt MD. Provider A ttestation: I personally performed the services described in the documentation, reviewed and edited the documentation which was dictated to the scribe in my presenc e and it accurately records my words and actions., Neal Witt MD. Call s-Consults - 02/06/2020 17:45:00 , Toni LAFLEUR, Jesse Mann, Gaastroenterology, phone call, britt mullen, Discussed pt. case and current presentation as well as pt. results. Lema john agreed that there is no immediate/ significant health risk for the pt. at t his time. Test Preparation Tutor feels comfortable enough to follow up with the pt. as an outpatient in order to develop an additional plan of care within the next 48 hours.. Plan Condition: Improved, Stable. Disposition: Discharged: Time 02/06/2020 18:15:00, to home. Patient was given the following educational materials: Full Li quid Diet, Clear Liquid Diet, Dysphagia (Adult). Follow up with: For mental hea lt appointment, please contact [facility] Help Line : [phone]. Within 3 to 5 days; Darrel Zuniga Within 3 to 5 days [facility]; Clary Morejon Within 3 to 5 days, [place] Epperson Within 1 to 2 days [facility]; For mental health appointment, please contact [facility] Help Line : [phone]. Within 3 to 5 days; Clary Morejon Within 3 to 5 days. Counseled: Patient, Regarding diagnosis, Regarding diagnostic results, Regarding treatment plan, Pt understood.Rell Ed[address] [place] [address] [id number] al [id number] sign ed by Neal Witt MD 02/06/2020 18:57 EDTElectronically signed by Florence Mccurdy 02/06/2020 18:27 EDT Name Value Range Interpretation Code Description Data Mariana rce(s) Supporting Document(s ) ID Date Data Source {[id number] 02/07/2020 09:26:00 AM EDT [facility] Arturo Vazquez [id number] Patient: MARIELA ROME Age: 69 years Sex: Female : 1950 Associated Diagnoses: None Author: John Olivarez MD, Brie Martínez Basic Information Time seen: Date and time 02/05 14:32:00, 02/06/2020 02/06/2020 , 14:32 7:25 . History source: Patient. Arrival mode: Ambulance. History limitation: None. Additional information: Chief Complaint from Nursing Triage Note : Chief Complaint 02/06/2020 14:24 EDT Chief Complaint pt wa s seen in ED this morning for vomiting, pt states she developed some blurriness in L eye and gait changes and numbness to L side of face 02/06/2020 6:41 EDT Chief Complain t Pt had indigestion while taking medications this morning. Pt now has dry heaving and can't swallow. Pt has hystory of throid surgery. Pt not able to take BP, stomach medication. Pt has on nitro patch . History of Present Illness 69-year-old female wi th a history of GERD, HLD, MAURICIO, anxiety, asthma, migraines (in adolescence), esop hageal stricture, globus hystericus presents to the ED brought in by ambulance for ev aluation of difficulty swallowing. Patient has had a prior history of current sympt oms and has presented to the [facility] several times for symptom evaluation. The patie nt last presented to the ED today and was discharged with no acute findings. Disha ent reports having had difficulty swallowing blood pressure pills after being dischar ged home. Patient reports sudden onset of left-sided facial numbness and left-side d blurred vision and activated EMS for concern regarding symptoms. Patient was found to have elevated blood pressure, but was otherwise with a normal heart rate, O2 saturation, and other vitals were within normal limits. Patient reports slight r elief of symptoms since ED presentation. Patient reports nausea and vomiting due to throat fullness today. She reports no recent falls, injuries, surgeries, traum a, travel, exposure to COVID-19 individuals, and has not been tested for COVID-19. Th e patient does not report having headache, dizziness, fever, sweats, chills, chest pain, SOB, cough, back pain, abdominal pain, diarrhea, numbness and tingling to dista l extremities or any other symptoms at this time.PCP: Clary Morejon Review of Syste ms Constitutional symptoms: No fever, no chills, no sweats. Skin symptoms: No j aundice, no rash. Eye symptoms: Blurred vision (L eye), No recent vision problem s, ENMT symptoms: No ear pain, no sore throatThroat: Difficulty swallowing. Res piratory symptoms: No shortness of breath, no cough, no wheezing. Cardiovascular s ymptoms: No chest pain, no palpitations, no syncope. Gastrointestinal symptoms: Na usea, vomiting, no abdominal pain, no diarrhea, no constipation. Genitourinar y symptoms: No dysuria, no hematuria. Musculoskeletal symptoms: No back pain, no Joint pain. Neurologic symptoms: Numbness (L facial), vision changes (L e ye blurred vision), no headache, no altered level of consciousness, no weakness. H ealth Status Allergies: Allergic Reactions (Selected)Severity Not DocumentedAmoxici llin- No reactions were documented.Azithromycin ophthalmic- No r eactions were documented.Compazine- No reactions were documented.Cranberry- No reactions were documented.Flu vaccines- No reactions were documented.Grapes- No reese ctions were documented.Latex- No reactions were documented.Latex Exam Gloves MISC- No reactions were documented.Lipitor- No reactions were documented.Norvasc- No re actions were documented.Omeprazole- No reactions were documented.Penicillin- No reactions were documented.Penicillins- No reactions were documented.Shellfish- No reactions were documented.Sulfa drugs- No reactions were documented.Zithromax- No reactions were documented.. Medications: (Selected) PrescriptionsPrescribedCarafa te 1 g/10 mL oral suspension: 1 gm, 10 mL, Oral, QID, for 10 day(s), 400 mL, 0 Refi ll(s)Lidoderm 5% topical film: 1 patch(es), TOP, Daily, for 7 day(s), PRN: Pain, 30 patch(es), 0 Refill(s)Protonix 40 mg oral granule, enteric coated: 40 mg, 1 EA, Or al, BID, for 30 day(s), 60 abs, 0 Refill(s)Robaxin-750 oral tablet: 1,500 mg, 2 tab, Oral, TID, for 7 day(s), 22 tab, 0 Refill(s)Valium 2 mg oral tablet: 4 mg, 2 tab, Oral, BID, for 3 day(s), only if needed. do not take wit other benzodiaz epoimes, or alcohol, PRN: for anxiety, 6 tab, 0 Refill(s)albuterol 2.5 mg/3 mL (0.083% ) inhalation solution: 2.5 mg, 3 mL, NEB, q6hr (specified start), PRN: for wheezin g, 25 EA, 0 Refill(s)diltiazem 360 mg/24 hours oral capsule, extended release: 36 0 mg, 1 cap, Oral, Daily, 30 cap, 0 Refill(s)ibuprofen 600 mg oral tablet: 6 00 mg, 1 tab, Oral, q6hr (specified start), PRN: for pain, 21 tab, 0 Refill(s)losart an 25 mg oral tablet: 25 mg, 1 tab, Oral, Daily, 30 tab, 0 Refill(s)nitroglycerin 0.6 mg/hr transdermal film, extended release: 1 patch(es), TOP, Daily, 30 patch(es), 0 Refill(s)Documented MedicationsDocumentedDiphenhist 25 mg or al tablet: 25 mg, 1 tab, Oral, BID, PRN: as needed, 0 Refill(s)Ventolin HFA: INH, QI D, 0 Refill(s)Vitamin D3 2000 intl units oral tablet: Oral, Daily, 0 Refill(s)aspirin: 81 mg, Oral, Daily, 0 Refill(s)busPIRone 15 mg oral tablet: 15 mg, 1 tab, Oral, TID, 270 tab, 0 Refill(s)simvastatin: 40 mg, Oral, Daily, 0 Refill(s). Past Medical/ Family/ Social History Medical history: Reviewed as documented in chart, GERD, H LD, MAURICIO, anxiety, asthma. Surgical history: not pertinent. Family history: not perti neaurea. Social history: nonsmoker. Problem list: Active Problems (10)Acid reflux A ngina pectoris Anxiety Asthma Chest pain Hyperlipidemia Hypertension Obstructive sleep apnea Pre-operative cardiovascular examination Shortness of breath , per nu rse's notes. Physical Examination Vital Signs Vital Signs 02/06/2020 14:24 E DT Temperature Oral 98.2 DegF Systolic Blood Pressure 169 mmHg HI Diastolic Blood P ressure 80 mmHg Heart Rate Monitored 102 bpm HI Respiratory Rate 28 br/min HI . Per nurse's notes. Measurements 02/06/2020 14:24 EDT Clinical Weight 60.00 3 kg Body Mass Index Measured 24.98 kg/m2 Body Mass Index Measured 24.98 kg/m2 He ight/Length Measured 155 cm . Basic Oxygen Information 02/06/2020 14:24 EDT SpO2 99 % Oxygen Therapy Room air . General: Alert, no acute distress, Speaking in full sent ences, nontoxic, appears well nourished/well developed. Skin: No rash. Head: Normo cephalic, atraumatic. Neck: Supple. Eye: Extraocular movements are intact, vision grossly normal. Ears, nose, mouth and throat: Oral mucosa moist. Cardiovascul ar: Regular rate and rhythm, No murmur. Respiratory: Lungs are clear to auscult ation, respirations are non-labored. Chest wall: No tenderness. Musculoskeletal: Normal ROM, normal strength, no tenderness, no swelling. Gastrointestinal: Soft, N ontender, Non distended, Guarding: Negative, Rebound: Negative, Signs: McBurney's neg ative, Nevarez's negative. Neurological: Alert and oriented to person, place, trina e, and situation, No focal neurological deficit observed, normal motor observed, normal coordination observed, Neurological: Alert and oriented to person, place, trina e, and situation, No focal neurological deficit observed, CN II-XII intact, norm al motor observed, normal coordination observed, normal and symmetrical reflexe s, Speech: Normal, Gait: Normal. . Lymphatics: No lymphadenopathy. Psychia tric: Cooperative, appropriate mood and affect. Medical Decision Making Differ ential Diagnosis: Visual impairment, cerebral vascular accident, transient is chemic attack, Globus pharyngeus, Anxiety. Rationale: 69-year-old female with a hi story of GERD, HLD, MAURICIO, anxiety, asthma, migraines (in adolescence), esophageal s tricture, globus hystericus presents to the ED brought in by ambulance for evaluatio n of difficulty swallowing. Plan is to order meds, labs, CT head, CTA head/neck, EKG, consult with case managment, and reassess patient's condition based on further fin dings. Patient is undergoing testing/treatment during the COVID-19 pa ndemic. Therefore, per our hospital protocol, we are limiting exposure to one physicia n. The physical exam that has been performed by the examining physician has been disc ussed or reviewed and this will represent my own physical exam. This is done to help stop unnecessary exposure, transmission of disease, and to protect health care work ers and the community.. Documents reviewed: Emergency department nurses' notes, prio r records. Orders Launch Order Profile (Selected) Inpatient OrdersOrderedEKG: O rdered (Exam Ordered)CT Head WO: Ordered (In-Lab).Glomerular Filtration Rate: ABO /Rh: Antibody Screen Gel: CMP: PT/INR: Troponin-I: CompletedCBC w/ Auto Diff: D ifferential, Automated: Reglan: 10 mg, 2 mL, 100 mL/hr, IV Piggyback, OnceDeletedCTA Head Neck: . Electrocardiogram: Time 02/06/2020 14:35:00, rate 108, normal sinu s rhythm, sinus tachycardia, poor R wave progression. Results review: Lab resul ts : Lab View 02/06/2020 14:34 EDT WBC 9.1 x10(3)/mcL RBC 5.15 x10(6)/mcL Hgb 12. 1 gm/dL Hct 38.3 % MCV 74 fL LOW MCH 23.6 pg LOW MCHC 31.7 gm/dL LOW RDW 18.3 % HI Platelet 387 x10(3)/mcL MPV 7.1 fL LOW Neut Auto 68.6 % Lymph Auto 20.8 % [place] Auto 8.9 % Eos Auto 0.9 % Baso Auto 0.8 % Neut Absolute 6.3 x10(3)/mc L Lymph Absolute 1.9 x10(3)/mcL [place] Absolute 0.8 x10(3)/mcL Eos Absolute 0. 1 x10(3)/mcL Baso Absolute 0.1 x10(3)/mcL INR 1.2 ratio PT 14.2 second(s) HI Gl ucose Lvl 118 mg/dL HI BUN 6.1 mg/dL Creatinine 0.67 mg/dL eGFR-AA >90 mL/mi n/1.73m2 eGFR-SUDHIR 88 mL/min/1.73m2 BUN/Creat Ratio 9.1 ratio Sodium Lvl 13 9 mmol/L Potassium Lvl 4.2 mmol/L Chloride 109 mmol/L HI CO2 22 mmol/L LOW AGAP 8 Calcium Lvl 9.5 mg/dL ALT 12 IU/L AST 17 IU/L Alk Phos 129 IU/L HI Total Pr otein 7.6 gm/dL Albumin Lvl 4.0 gm/dL Glob 3.6 gm/dL A/G Ratio 1.1 ratio Bili Tot al 0.6 mg/dL Troponin-I <0.03 ng/mL ABO/Rh O POS 02/06/2020 8:55 EDT UA Color Dk [place] ow UA Appear Cloudy UA pH 7.0 UA Spec Grav 1.026 UA Glucose Negative mg/dL UA Ket ones 80 (3+) mg/dL UA Urobilinogen 1.0 EU/mL UA Bili Small (1+) UA Blood Negative UA Protein Negative mg/dL UA Nitrite Negative UA Leuk Est Negative UA WBC 0 -5 /HPF UA RBC 2-5 /HPF UA Bacteria None Seen /HPF UA Epithelial Moderate /HPF UA Mucous Moderate /LPF 02/06/2020 7:50 EDT WBC 7.2 x10(3)/mcL RBC 4.98 x10(6)/mcL Hgb 11.9 gm/dL Hct 36.8 % MCV 74 fL LOW MCH 23.8 pg LOW MCHC 32.2 gm/dL RDW 18.2 % HI Platelet 393 x10(3)/mcL MPV 7.0 fL LOW Neut Auto 65.5 % Lymph Auto 22.5 % [place] Auto 10.3 % Eos Auto 0.9 % Baso Auto 0.8 % Neut Absolute 4.7 x10(3)/mc L Lymph Absolute 1.6 x10(3)/mcL [place] Absolute 0.7 x10(3)/mcL Eos Absolute 0. 1 x10(3)/mcL Baso Absolute 0.1 x10(3)/mcL INR 1.3 ratio HI PT 14.6 second(s) HI Glucose Lvl 123 mg/dL HI BUN 7.9 mg/dL Creatinine 0.73 mg/dL eGFR-AA >90 mL/mi n/1.73m2 eGFR-SUDHIR 80 mL/min/1.73m2 BUN/Creat Ratio 10.9 ratio Sodium Lvl 1 37 mmol/L Potassium Lvl 3.1 mmol/L LOW Chloride 104 mmol/L CO2 21 mmol/L LOW AGAP 12 Calcium Lvl 9.4 mg/dL ALT 13 IU/L AST 17 IU/L Alk Phos 111 IU/L Total Pr otein 7.6 gm/dL Albumin Lvl 3.9 gm/dL Glob 3.7 gm/dL A/G Ratio 1.1 ratio Bili Tot al 0.7 mg/dL Lipase Lvl 21 IU/L LOW Troponin-I <0.03 ng/mL . Reexamination/ Reevaluation Time: 02/06/2020 16:00:00 . Notes: Patient informed of JOYCE to Dr. Velvet thompson pending labs, diagnostics results, case management consultation, and disposition . Patient understands and agrees with plan of care. Pt also noted to have multiple rec ent visits to the ED for a variety of complaints; will consult case management . All questions answered. . Procedure NIH Stroke Scale Time: 02/06/2020 14:32:00 . Level of consciousness: Alert = 0. Current month and age: Answers both correctly = 0. Open and close eyes/card scraper release hand: Obeys both correctly = 0. Best gaze: No rmal = 0. Visual field testing: No visual field loss = 0. Facial paresis: Normal symmetric movement = 0. Motor function left arm: Normal = 0. Motor function right a rm: Normal = 0. Motor function left leg: Normal = 0. Motor function right leg: N ormal = 0. Limb ataxia: No ataxia = 0. Sensory: Normal = 0. Best language: No aphasia = 0. Dysarthria: Normal articulation = 0. Extinction and inattention: Normal = 0. Impression and Plan Plan Condition: Stable, Guarded. Disposition: Patient c are transitioned to: Time: 02/06/2020 16:00:00, Eduar LAFLEUR, Neal Torres. Counseled: Disha ent, Regarding treatment plan, Patient indicated understanding of instructions. Addendum Attestation: Scribe Attestation: Jacob Lyon, 02/06/2020 14:32:00, Davis ribing for and in the presence of,, Alexx LAFLEUR, Brie Martínez, Provider A ttestation: I personally performed the services described in the documentation, reviewed and edited the documentation which was dictated to the scribe in my presenc e and it accurately records my words and actions., Alexx LAFLEUR, Brie Martínez.[facility], [id number] [id number] NYMARIELA HUTSONMERCY HEALTH ST[facility] RITA'S MEDICAL [id number] signed by Brie Coffey MD 02/07/2020 09:26 EDTElectronically nash d by Jacob Lyon 02/06/2020 16:08 EDT Jacob Lyon Name Value Range Interpretation Code Description Data Mariana rce(s) Supporting Document(s ) ID Date Data Source [id number] 02/06/2020 04:02:00 PM EDT [facility] Name Value Range Interpretation Code Description Data Mariana rce(s) Supporting Document(s ) ABSC Gel NO [facility] ID Date Data Source [id number] 02/06/2020 03:28:00 PM EDT [facility] Name Value Range Interpretation Code Description Data Mariana rce(s) Supporting Document(s ) ABO/Rh UN [facility] ID Date Data Source [id number] 02/06/2020 03:21:00 PM EDT [facility] Name Value Range Interpretation Code Description Data Supporting Source(s) Document(s ) Troponin- <0.03 <=0.05 [facility] I ng/mL [facility] ID Date Data Source [id number] 02/06/2020 03:20:00 PM EDT [facility] Name Value Range Interpretation Code Description Data Mariana rce(s) Supporting Document(s ) INR 1.2 ratio 0.9-1.2 [facility] Indications INRProphylaxis of venous thromo-embolism: Non-hip surgery..... ..........................1.5 - 2.5 Hip surgery................................. ..2.0 - 3.0Deep Vein Thrombosis or Pulmonary Embolism........2.0 - 3.0Prevention of s ystemic embolism in valvular heart disease, tissue prosthetic heart valvesor acute NM.......................................2.0 - 3.5Prevention of embolism in mechanical heartvalves or recurrent systemic embolism.............3.0 - 4.5 PT 14.2 second(s) 10.2-12.9 [facility] ID Date Data Source [id number] 02/06/2020 03:19:00 PM EDT [facility] Added by Discern Rule GLB_ADD_GFR_CMP Name Value Range Interpretation Code Description Data Mariana rce(s) Supporting Document(s ) eGFR-AA >90 >=60 [facility] mL/min/[address] The CKD-EPI equation for non- [place] rican individuals is used to calculate the estimated glomerular filtration rate (GF R). To estimate the GFR for Americans, multiply the provided GFR res ult by 1.16. The CKD-EPI equation is validated in individuals 18 years of age or older. It is less accurate in patients with extremes of muscle mass, restrictio n of dietary protein, ingestion of creatine, extra-renal metabolism of creatinine, or treatment with medications that affect renal tubular creatinine secretion.GFR Categor ies in Chronic Kidney Disease (CKD)GFR Category: GFR (mL/min/1.73 m2): Inte rpretation: G1 90 or greater Normal or high*G2 60-89 Mild decrease* G3a 45-59 Mild to moderate [id number] 30-44 Moderate to s evere decreaseG4 15-29 Severe decreaseG5 14 or less Kidney fa ilure eGFR-SUDHIR 88 mL/min/1.73m2 >=60 NO [facility] The CKD-EPI equation for non- [facility] rican individuals is used to calculate the estimated glomerular filtration rate (GF R). To estimate the GFR for Americans, multiply the provided GFR res ult by 1.16. The CKD-EPI equation is validated in individuals 18 years of age or older. It is less accurate in patients with extremes of muscle mass, restrictio n of dietary protein, ingestion of creatine, extra-renal metabolism of creatinine, or treatment with medications that affect renal tubular creatinine secretion.GFR Categor ies in Chronic Kidney Disease (CKD)GFR Category: GFR (mL/min/1.73 m2): Inte rpretation: G1 90 or greater Normal or high*G2 60-89 Mild decrease* G3a 45-59 Mild to moderate [id number] 30-44 Moderate to s evere decreaseG4 15-29 Severe decreaseG5 14 or less Kidney fa ilure ID Date Data Source [id number] 02/06/2020 03:19:00 PM EDT [facility] Name Value Range Interpretation Description Data Sup porting Code Source(s) Document(s ) Glucose Lvl 118 65-99 HI [place] mg/dL [facility] BUN 6.1 6.0-20.0 NO [place] mg/dL [facility] Creatinine 0.67 0.40-1.0 NO [place] mg/dL 0 [facility] BUN/Creat 9.1 7.0-29.0 NO [place] Ratio ratio [facility] Sodium Lvl 139 136-145 NO [place] mmol/L [facility] Potassium Lvl 4.2 3.5-5.1 NO [place] mmol/L [facility] Chloride 109 98-107 HI [place] mmol/L [facility] CO2 22 23-29 LO [place] mmol/L [facility] 5-[facility] Calcium Lvl 9.5 8.6-10.0 NO [place] mg/dL [facility] Total Protein 7.6 6.0-8.3 NO [place] gm/dL [facility] Albumin Lvl 4.0 3.5-5.0 NO [place] gm/dL [facility] Glob 3.6 2.0-4.5 NO [place] gm/dL [facility] A/G Ratio 1.1 1.0-2.2 NO [place] ratio [facility] [facility] Bili Total 0.6 0.3-1.2 [place] mg/dL [facility] Alk Phos 129 IU/L 38-126 [facility] AST 17 IU/L 15-41 NO [facility] ALT 12 IU/L 7-40 NO [facility] ID Date Data Source [id number] 02/06/2020 03:03:00 PM EDT [facility] Name Value Range Interpretation Description Data Sup porting Code Source(s) Document(s ) Neut Auto 68.6 % 50.0-80.0 NO [facility] Lymph Auto 20.8 % 14.0-44.0 NO [facility] [place] Auto 8.9 % 0.0-12.0 NO [facility] Eos Auto 0.9 % 0.0-7.0 NO [facility] Baso Auto 0.8 % 0.0-3.0 NO [facility] Neut 6.3 2.0-8.4 NO [place] Absolute x10(3)/[facility] Lymph 1.9 0.6-4.8 [place] Absolute x10(3)/[facility] [place] 0.8 0.0-1.1 [place] Absolute x10(3)/[facility] Eos Absolute 0.1 0.0-0.5 [place] x10(3)/[facility] Baso 0.1 0.0-0.3 [place] Absolute x10(3)/[facility] ID Date Data Source [id number] 02/06/2020 03:03:00 PM EDT [facility] Name Value Range Interpretation Description Data Sup porting Code Source(s) Document(s ) WBC 9.1 4.0-10.5 [place] x10(3)/[facility] RBC 5.15 3.80-5.20 [place] x10(6)/[facility] Hgb 12.1 11.4-15.1 [place] gm/dL [facility] Hct 38.3 % 36.0-46.0 NO [facility] MCV 74 fL 80-98 [facility] MCH 23.6 pg 26.0-34.0 [facility] MCHC 31.7 32.0-36.0 [place] gm/dL [facility] RDW 18.3 % 11.0-15.0 [facility] Platelet [id number] 150-400 [facility] MPV 7.1 fL 8.5-13.0 [facility] ID Date Data Source [id number] 02/06/2020 10:20:00 AM EDT [facility] Patient Name: JHONATAN OROZCO ANEMRN: [id number] Computed TomographyACCESSIO N EXAM DATE/TIME PROCEDURE ORDERING PROVIDER [facility]-20- [id number] 02/06/2020 10:[address] Abdomen Pelvis Damir DO, Elsy Porter Auth (Veri fied) Oral and IVReason For Exam(CT Abdomen Pe lvis Oral and IV) Intestinal ObstructionReportPROCEDURE: Computed To mography Abdomen and Pelvis With ContrastCLINICAL HISTORY: Intestinal Ob struction, NauseaSCRIPT INFORMATION: Intestinal obstruction, nauseaCOMPARISON : None.TECHNIQUE:Computed Tomography of the abdomen and pelvis was performed. Transa xial scans of the abdomen and pelvis were obtained with intravenous contrast admin istration. Enteric contrast was administered for this exam.There is motion artifact w hich somewhat limits assessment. However, the exam is still of diagnostic value.FINDIN GS:LUNG BASES:The visualized portions of the lung bases, heart and pericardium are gr ossly unremarkable.There is a 2.0 cm soft tissue nodule within the medial right br east. This corresponds to a nodule that has been present and stable on multiple prio r mammograms. This is also stable since a CT chest from 12/14/2015.LIVER:The liver is normal in size and contour.There is no enhancing mass identified and the portal vein is patent.BILIARY SYSTEM:There is no biliary ductal dilatation.The gallbladde r is grossly unremarkable.SPLEEN/PANCREAS:The spleen is grossly unremarkable.There is mild dilatation of the pancreatic duct, which measures up to 4 mm in diameter. Signifi cance is unclear.ADRENALS/KIDNEYS:The adrenals are unremarkable.The kidneys ar e unremarkable.VASCULATURE:The abdominal aorta is normal in course and caliber.TARUN WEL:There is no evidence for small bowel obstruction.There is no evidence for fredy e intraperitoneal air.Stool is scattered throughout the colon.LYMPH NODES/FLUID:T here is no suspicious lymphadenopathy.There is no significant abdominal ascites.BODY WALL:There is evidence of a prominent lipoma extending along the surface of the right iliopsoas muscle/tendon.BLADDER/GENITALS:The urinary bladder is grossly unremarkable. The uterus is enlarged and lobulated, containing numerous masses, many which c ontain calcification. These are most compatible with uterine fibroids.BONES:T he bones are grossly unremarkable.IMPRESSION:1. Exam somewhat limited by motion artifact.2. Mild dilatation of the pancreatic duct, measu ring up to 4 mm. This is of questionable significance.3. No acute bowel abnormali ty identified.4. Myomatous uterus.Thank you for allowing us to participate in the ev aluation of this patient. Final Dictated: Rudy Chicas MD 0 02/06/20 10:07Signed: Rudy Chicas MD 02/06/20 10:20Transcribed by: IFTIKHAR Name Value Range Interpretation Code Description Data Mariana rce(s) Supporting Document(s ) ID Date Data Source [id number] 02/06/2020 09:16:00 AM EDT [facility] Name Value Range Interpretation Description Data Sup porting Code Source(s) Document(s ) UA Color Yellow NO [facility] UA Appear Clear AB [facility] UA pH 5.0-8.0 [facility] UA Spec Grav 1.026 1.005-1.030 [facility] UA Glucose Negative [facility] UA Ketones Negative AB [facility] UA Urobilinogen 0.2-1.0 [facility] UA Bili Negative AB [facility] UA Blood Negative [facility] UA Protein Negative [facility] UA Nitrite Negative [facility] UA Leuk Est Negative [facility] ID Date Data Source [id number] 02/06/2020 09:29:00 AM EDT [facility] UA Microscopic added by nicky Kate to an Abnormal Macroscopic Result. Name Value Range Interpretation Description Data Sup porting Code Source(s) Document(s ) UA WBC 0-5 NO [facility] UA RBC 0-2 AB [facility] UA Bacteria None Seen NO [facility] UA Epithelial Rare NO [facility] UA Mucous None Seen NO [facility] ID Date Data Source [id number] 02/06/2020 09:15:00 AM EDT [facility] Patient Name: JHONATAN OROZCO ANEMRN: [id number] General DiagnosticACCESSION EXAM DATE/TIME PROCEDURE ORDERING PROVIDER [id number] 02/06/2020 09:13 EDT XR Chest Portable Elsy May DO (Ve rified)Reason For Exam(XR Chest Portable) Abdomen PainReportPROCEDURE: Radiograph Portable Chest 1 ViewCLINICAL HISTORY: NauseaSCRIPT INFORMATION: nauseaCOMPARIS ON: 03/15/2019TECHNIQUE:Anteroposterior radiographic view of the chest was perfo rmed.FINDINGS:The lungs are clear.There is no evidence for pleural effusion.There is n o evidence for pneumothorax.The heart is unremarkable.The mediastinum and hilar s oft tissues are unremarkable.The bony thorax is unremarkable.IMPRESSION:No evidence o f acute cardiopulmonary disease.Thank you for allowing us to participate in the evalua tion of this patient. Final Dictated: Ky Foreman DO 0 02/06/20 09:13Signed: Ky Foreman DO 02/06/20 09:15Transcribed by: TARIQ Name Value Range Interpretation Code Description Data Mariana rce(s) Supporting Document(s ) ID Date Data Source [id number] 02/06/2020 08:23:00 AM EDT [facility] Name Value Range Interpretation Code Description Data Supporting Source(s) Document(s ) Troponin- <0.03 <=0.05 [place] I ng/mL [facility] ID Date Data Source [id number] 02/06/2020 08:21:00 AM EDT [facility] Name Value Range Interpretation Code Description Data Mariana rce(s) Supporting Document(s ) Lipase Lvl 21 IU[facility]L 22-51 [facility] ID Date Data Source [id number] 02/06/2020 08:21:00 AM EDT [facility] Name Value Range Interpretation Description Data Sup porting Code Source(s) Document(s ) Glucose Lvl 123 65-99 [place] mg/dL [facility] BUN 7.9 6.0-20.0 [place] mg/dL [facility] Creatinine 0.73 0.40-1.0 [place] mg/dL 0 [facility] BUN/Creat 10.9 7.0-29.0 [place] Ratio ratio [facility] Sodium Lvl 137 136-145 [place] mmol/L [facility] Potassium Lvl 3.1 3.5-5.1 [place] mmol/L [facility] Chloride 104 98-107 [place] mmol/L [facility] CO2 21 23-29 [place] mmol/L [facility] AGAP 12 5-15 NO [place] [facility] Calcium Lvl 9.4 8.6-10.0 [place] mg/dL [facility] Total Protein 7.6 6.0-8.3 [place] gm/dL [facility] Albumin Lvl 3.9 3.5-5.0 [place] gm/dL [facility] Glob 3.7 2.0-4.5 [place] gm/dL [facility] A/G Ratio 1.1 1.0-2.2 NO Health System ratio [facility] Bili Total 0.7 0.3-1.2 NO Health System mg/dL [facility] Alk Phos 111 IU/L 38-126 NO [facility] AST 17 IU/L 15-41 [facility] ALT 13 IU/L 7-40 [facility] ID Date Data Source [id number] 02/06/2020 08:17:00 AM EDT [facility] Name Value Range Interpretation Code Description Data Mariana rce(s) Supporting Document(s ) INR 1.3 ratio 0.9-1.2 [facility] Indications INRProphylaxis of venous thromo-embolism: Non-hip surgery..... ..........................1.5 - 2.5 Hip surgery................................. ..2.0 - 3.0Deep Vein Thrombosis or Pulmonary Embolism........2.0 - 3.0Prevention of s ystemic embolism in valvular heart disease, tissue prosthetic heart valvesor acute NM.......................................2.0 - 3.5Prevention of embolism in mechanical heartvalves or recurrent systemic embolism.............3.0 - 4.5 PT 14.6 second(s) 10.2-12.9 [facility] ID Date Data Source [id number] 02/06/2020 08:13:00 AM EDT [facility] Added by Discern Rule GLB_ADD_GFR_CMP Name Value Range Interpretation Code Description Data Mariana rce(s) Supporting Document(s ) eGFR-AA >90 >=60 NO [facility] mL/min/1.[address] [place] [address] The CKD-EPI equation for non- [place] r[place] individuals is used to calculate the estimated glomerular filtration rate (GF R). To estimate the GFR for Americans, multiply the provided GFR res ult by 1.16. The CKD-EPI equation is validated in individuals 18 years of age or older. It is less accurate in patients with extremes of muscle mass, restrictio n of dietary protein, ingestion of creatine, extra-renal metabolism of creatinine, or treatment with medications that affect renal tubular creatinine secretion.GFR Categor ies in Chronic Kidney Disease (CKD)GFR Category: GFR (mL/min/1.73 m2): Inte rpretation: G1 90 or greater Normal or high*G2 60-89 Mild decrease* G3a 45-59 Mild to moderate [id number] 30-44 Moderate to s evere decreaseG4 15-29 Severe decreaseG5 14 or less Kidney fa ilure eGFR-SUDHIR 80 mL/min/1.73m2 >=60 NO [facility] The CKD-EPI equation for non- [place] r[place] individuals is used to calculate the estimated glomerular filtration rate (GF R). To estimate the GFR for Americans, multiply the provided GFR res ult by 1.16. The CKD-EPI equation is validated in individuals 18 years of age or older. It is less accurate in patients with extremes of muscle mass, restrictio n of dietary protein, ingestion of creatine, extra-renal metabolism of creatinine, or treatment with medications that affect renal tubular creatinine secretion.GFR Categor ies in Chronic Kidney Disease (CKD)GFR Category: GFR (mL/min/1.73 m2): Inte rpretation: G1 90 or greater Normal or high*G2 60-89 Mild decrease* G3a 45-59 Mild to moderate [id number] 30-44 Moderate to s evere decreaseG4 15-29 Severe decreaseG5 14 or less Kidney fa ilure ID Date Data Source [id number] 02/06/2020 08:11:00 AM EDT [facility] Name Value Range Interpretation Description Data Sup porting Code Source(s) Document(s ) Neut Auto 65.5 % 50.0-80.0 NO [facility] Lymph Auto 22.5 % 14.0-44.0 NO [facility] [place] Auto 10.3 % 0.0-12.0 NO [facility] Eos Auto 0.9 % 0.0-7.0 NO [facility] Baso Auto 0.8 % 0.0-3.0 NO [facility] Neut 4.7 2.0-8.4 [place] Absolute x10(3)/[facility] Lymph 1.6 0.6-4.8 NO [place] Absolute x10(3)/[facility] [place] 0.7 0.0-1.1 [place] Absolute x10(3)/[facility] Eos Absolute 0.1 0.0-0.5 [place] x10(3)/[facility] Baso 0.1 0.0-0.3 [place] Absolute x10(3)/[facility] ID Date Data Source [id number] 02/06/2020 08:11:00 AM EDT [facility] nurse collect 02/06/2020 07:42:31 EDT JE Name Value Range Interpretation Description Data Sup porting Code Source(s) Document(s ) WBC 7.2 4.0-10.5 [place] x10(3)/[facility] RBC 4.98 3.80-5.20 [place] x10(6)/[facility] Hgb 11.9 11.4-15.1 [place] gm/dL [facility] Hct 36.8 % 36.0-46.0 NO [facility] MCV 74 fL 80-98 LO [facility] MCH 23.8 pg 26.0-34.0 [facility] MCHC 32.2 32.0-36.0 NO Health System gm/dL [facility] RDW 18.2 % 11.0-15.0 [facility] Platelet 393 150-400 NO [facility] x10(3)/[facility] MPV 7.0 fL 8.5-13.0 [facility] ID Date Data Source [id number] 02/09/2020 11:41:00 PM EDT [facility] [id number]} [facility] Patient: MARIELA ROME Age: 69 years Sex: Female : 1950 Associated Diagnoses: Acute vomiting A uthor: Elsy May DO Basic Information Time seen: 7:25. History source: Patient , EMS. Arrival mode: Ambulance. History limitation: None. Additional information : Chief Complaint from Nursing Triage Note : Chief Complaint 02/06/2020 6:41 EDT Chief Complaint Pt had indigestion while taking medications this morning. P t now has dry heaving and can't swallow. Pt has hystory of throid surgery. Pt not ab le to take BP, stomach medication. Pt has on nitro patch . History of Present Illne ss Patient is a 69 year old female with past medical history including angina pectori s, anxiety, asthma, GERD, hyperlipidemia, HTN, obstructive sleep apnea, and thyroi d nodule removal presenting to the ED via EMS for evaluation of nausea. Patient report s having indigestion and nausea while attempting to take her morning medicatio ns. She denies emesis, but did have several episodes of dry heaving. She also endors es difficulty swallowing. Patient was seen in the ED on 01/31/2020 and 02/02/2020 for ev aluation of similar symptoms and was subsequently discharged. Patient's last EGD was on 12/02/2018 and she had a swallow study done in December of [address] Walcz yk that was reportedly normal. Patient denies fevers, chills, shortness of breath, cou gh, and any other symptoms at this time.PCP: Jean-Pierre Review of [employer] al symptoms: No fever, no chills, no sweats. Skin symptoms: No rash, Eye symptoms: Vision unchanged. ENMT symptoms: No nasal congestion, Throat: Difficulty swallowin g. Respiratory symptoms: No shortness of breath, no cough. Cardiovascular sympto ms: No chest pain, Gastrointestinal symptoms: Nausea, dry heaving, no abdom inal pain, no vomiting, no diarrhea. Genitourinary symptoms: No dysuria, Mu sculoskeletal symptoms: No back pain, no Muscle pain. Neurologic symptoms: No h eadache, no dizziness. Health Status Allergies: Allergic Reactions (Selected )Severity Not DocumentedAmoxicillin- No reactions were documented.Azithromycin o phthalmic- No reactions were documented.Compazine- No reactions were documented.Flu vaccines- No reactions were documented.Latex- No reactions were docu mented.Latex Exam Gloves MISC- No reactions were documented.Lipitor- No reactions we re documented.Norvasc- No reactions were documented.Omeprazole- No reactions were documented.Penicillin- No reactions were documented.Penicillins- No reactions wer e documented.Shellfish- No reactions were documented.Sulfa drugs- No reactions wer e documented.Zithromax- No reactions were documented.. Medications: (Selected) Do cumented MedicationsDocumentedDiphenhist 25 mg oral tablet: 25 mg, 1 tab, Oral, BID, PRN: as needed, 0 Refill(s)Ventolin HFA: INH, QID, 0 Refill(s)Vitamin D3 2000 int l units oral tablet: Oral, Daily, 0 Refill(s)aspirin: 81 mg, Oral, Daily, 0 Refill(s)busPIRone 15 mg oral tablet: 15 mg, 1 tab, Oral, TID, 270 tab, 0 Refill(s)si mvastatin: 40 mg, Oral, Daily, 0 Refill(s). Immunizations: Per nurse's notes. Past Medical/ Family/ Social History Medical history: angina pectoris, anxiety, asthm a, GERD, hyperlipidemia, HTN, and obstructive sleep apnea. Surgical history: EGD - SN (None) on 12/02/2018 at 68 Years.Comments:12/02/2018 18:54 EST - Str nick ROMERO, Kiersten Walter-populated from documented surgical casethyroid nodule r emoved.. Social history: Patient is . . Problem list: Active Probl ems (10)Acid reflux Angina pectoris Anxiety Asthma Chest pain Hyperlipidemia Hyperte nsion Obstructive sleep apnea Pre-operative cardiovascular examination Shortness of breath . current non-smoker Physical Examination Vital Signs Vital Signs 02/06/2020 6:46 EDT Temperature Oral 98.6 DegF Systolic Blood Pressure 135 mmHg HI Diastolic Blood Pressure 89 mmHg Mean Arterial Pressure, Cuff 104 mmHg Heart Rate Monitored 107 bpm HI Respiratory Rate 19 br/min . Measurements 02/06/2020 6:41 E DT Clinical Weight 60 kg Body Mass Index Measured 24.97 kg/m2 Body Mass Index Me asured 24.97 kg/m2 Height/Length Measured 155 cm . Basic Oxygen Information 02/06/20 6:46 EDT SpO2 98 % . General: Alert, constantly retc vamshi. Skin: Warm, intact, no rash, normal for ethnicity. Head: Normocephalic, at raumatic. Neck: Supple, trachea midline. Eye: Pupils are equal, round and reacti ve to light, extraocular movements are intact, normal conjunctiva. Ears, nose, mouth and throat: Oral mucosa moist, no pharyngeal erythema or exudate. Cardiov ascular: Regular rate and rhythm, No murmur, Normal peripheral perfusion, No edema. Respiratory: Lungs are clear to auscultation, respirations are non-labor ed, breath sounds are equal, Symmetrical chest wall expansion. Gastrointestinal: Soft, Nontender, Non distended, Normal bowel sounds. Back: Nontender, Normal range of motion. Musculoskeletal: Normal ROM, normal strength, no tenderness. Ne urological: Alert and oriented to person, place, time, and situation, No focal jamin rological deficit observed, normal speech observed. Psychiatric: Cooperative, ap propriate mood and affect. Medical Decision Making Differential Diagnosis: Nausea, gastroenteritis, dysphagia. Rationale: Patient is a 69 year old female with pas t medical history including angina pectoris, anxiety, asthma, GERD, hyperlipidemia, H TN, obstructive sleep apnea, and thyroid nodule removal presenting to the ED via EMS for evaluation of nausea. Differential diagnoses listed above. After initial ex amination of the patient, the plan is to order EKG, labs, CXR, symptom control, a nd then reassess the patient's condition. Patient understands and agrees with plan for treatment. All questions addressed at this time. . Documents reviewed: [facility] department nurses' notes, prior records. Orders Launch Order Profile (Selected) Inpatient OrdersOrderedpotassium chloride: 40 mEq, 30 mL, Oral, OnceCompleted.Glomerul ar Filtration Rate: CBC w/ Auto Diff: CMP: CT Abdomen Pelvis Oral and IV: Differential , Automated: ED Advanced Quality Engineer: EKG: Lipase Level: PT/INR: Pepcid IV.: 20 mg, 2 mL, IV Push, OnceReglan: 10 mg, 2 mL, 100 mL/hr, IV Piggyback, OnceSaline Lock: Troponin- I: Urinalysis (UA) with Reflex Culture: Urinalysis Microscopic: XR Chest (CXR) P ortable: iopamidol: 95 mL, IV, Once. Radiology results: Reason For ExamIntes tinal ObstructionReportPROCEDURE: Computed Tomography Abdomen and Pelvis With Contr ast CLINICAL HISTORY: Intestinal Obstruction, NauseaSCRIPT INFORMATION: I ntestinal obstruction, nauseaCOMPARISON: None.TECHNIQUE:Computed Tomography of th e abdomen and pelvis was performed. Transaxial scans of the abdomen and pelv is were obtained with intravenous contrast administration. Enteric contrast was adm inistered for this exam. There is motion artifact which somewhat limits assessmen t. However, the exam is still of diagnostic value. FINDINGS:LUNG BASES:The visualize d portions of the lung bases, heart and pericardium are grossly unremarkable.The re is a 2.0 cm soft tissue nodule within the medial right breast. This corresponds to a nodule that has been present and stable on multiple prior mammograms. This is also stable since a CT chest from 12/14/2015.LIVER:The liver is normal in s ize and contour.There is no enhancing mass identified and the portal vein is patent .BILIARY SYSTEM:There is no biliary ductal dilatation. The gallbladder is grossly u nremarkable.SPLEEN/PANCREAS: The spleen is grossly unremarkable.There is mild dilat ation of the pancreatic duct, which measures up to 4 mm in diameter. Significance is unclear.ADRENALS/KIDNEYS:The adrenals are unremarkable.The kidneys are unremarkabl e.VASCULATURE: The abdominal aorta is normal in course and caliber.BOWEL:There is no evidence for small bowel obstruction.There is no evidence for free intraperitoneal air .Stool is scattered throughout the colon.LYMPH NODES/FLUID: There is no vinicio picious lymphadenopathy.There is no significant abdominal ascites.BODY WALL: There is evidence of a prominent lipoma extending along the surface of the right iliopsoas muscle/tendon.BLADDER/GENITALS: The urinary bladder is grossly unremarka ble.The uterus is enlarged and lobulated, containing numerous masses, many which c ontain calcification. These are most compatible with uterine fibroids.BONES:T he bones are grossly unremarkable.IMPRESSION:1. Exam somewhat limited by motion artifact.2. Mild dilatation of the pancreatic duct, measu ring up to 4 mm. This is of questionable significance.3. No acute bowel abnormali ty identified.4. Myomatous uterus.Thank you for allowing us to participate in the ev aluation of this patient.Signature Line Final Dictated: Desirae Chicas MD 02/06/20 10:07Signed: Rudy Chicas MD 02/06/20 10:20Transcribed by: MBNICHOLThijohn document has an image Result type: CT Abdomen Pelvis Oral and IVResult date: February 06, 2020 10:06 EDTResult status: Auth (Verified)Result title: CT Abdomen Pelvis Oral and IVPerformed by: Rudy Chicas MD on February 06, 2020 10:0 7 EDTVerified by: Rudy Chicas MD on February 06, 2020 10:20 EDTEncounter info: [id number], [facility] [place] - , Reason For ExamAbdomen PainReportPROCEDURE: Ra diograph Portable Chest 1 ViewCLINICAL HISTORY: NauseaSCRIPT INFORMATION: naus eaCOMPARISON: 03/15/2019TECHNIQUE:Anteroposterior radio graphic view of the chest was performed.FINDINGS:The lungs are clear.T here is no evidence for pleural effusion.There is no evidence for pneumo thorax.The heart is unremarkable.The mediastinum and hilar soft tissues are u nremarkable.The bony thorax is unremarkable.IMPRESSION:No evidence of a cute cardiopulmonary disease.Thank you for allowing us to participate in the evalua tion of this patient.Signature Line Final Dictated: Ky Foreman DO 02/06/20 09:13Signed: Ky Foreman DO 02/06/20 09:15Transcribed by: AMANDO Hernandez document has an image Result type: XR Chest PortableResult date: February 06, 2020 9:13 EDTResult status: Auth (Verified)Result title: XR Chest Portabl ePerformed by: Ky Foreman DO on February 06, 2020 9:13 EDTVerified by: Ky Foreman DO on February 06, 2020 9:15 EDTEncounter info: [id number], [facility] [place] - , Time: 0744Rate: 86NSR, Q waves present in V1 and V2, seen on prior EKG. Lab res ults : Lab View 02/06/2020 8:55 EDT UA Color Dk Yellow UA Appear Cloudy UA pH 7.0 UA Spec Grav 1.026 UA Glucose Negative mg/dL UA Ketones 80 (3+) mg/dL UA Urobilinoge n 1.0 EU/mL UA Bili Small (1+) UA Blood Negative UA Protein Negative mg/dL UA Nitrite Negative UA Leuk Est Negative UA WBC 0-5 /HPF UA RBC 2-5 /HPF UA Bacter ia None Seen /HPF UA Epithelial Moderate /HPF UA Mucous Moderate /LPF 02/06/2020 7 :50 EDT WBC 7.2 x10(3)/mcL RBC 4.98 x10(6)/mcL Hgb 11.9 gm/dL Hct 36.8 % MCV 74 fL LOW MCH 23.8 pg LOW MCHC 32.2 gm/dL RDW 18.2 % HI Platelet 393 x10( 3)/mcL MPV 7.0 fL LOW Neut Auto 65.5 % Lymph Auto 22.5 % [place] Auto 10.3 % Eos Auto 0.9 % Baso Auto 0.8 % Neut Absolute 4.7 x10(3)/mcL Lymph Absolute 1.6 x10(3 )/mcL [place] Absolute 0.7 x10(3)/mcL Eos Absolute 0.1 x10(3)/mcL Baso Absolute 0 .1 x10(3)/mcL INR 1.3 ratio HI PT 14.6 second(s) HI Glucose Lvl 123 mg/dL HI BUN 7.9 mg/dL Creatinine 0.73 mg/dL eGFR-AA >90 mL/min/1.73m2 eGFR-SUDHIR 80 m L/min/1.73m2 BUN/Creat Ratio 10.9 ratio Sodium Lvl 137 mmol/L Potassium Lvl 3.1 mmol/L LOW Chloride 104 mmol/L CO2 21 mmol/L LOW AGAP 12 Calcium Lvl 9.4 mg /dL ALT 13 IU/L AST 17 IU/L Alk Phos 111 IU/L Total Protein 7.6 gm/dL Albumin L vl 3.9 gm/dL Glob 3.7 gm/dL A/G Ratio 1.1 ratio Bili Total 0.7 mg/dL Lipase Lvl 21 IU/L LOW Troponin-I <0.03 ng/mL . Reexamination/ Reevaluation Time: 02/06/20 11:09:00 . Notes: Patient resting comfortably and reports feeling improved . Patient is tolerating PO. Discussed with patient results, diagnosis, treatment pl an, follow up instructions, and plan for discharge. Strict verbal discharge instr uctions given, and patient understands to return to the ED with any new or worseni ng symptoms. Patient understands and accepts the plan for treatment and discharge. Al l questions addressed at this time. . I informed the patient of her CT results a nd any abnormalities on them. She was able to drink in the ED. Explicit return to ED instructions were given to the patient. Close follow up with her GI physician kathy kumar. Impression and Plan Diagnosis Acute vomiting - [id number] R11.10, Discharge Pl an Condition: Improved, Stable. Disposition: Discharged: Time 02/06/2020 11:13:00, to home. Patient was given the following educational materials: Diet for Vomiting or Diarrhea (Adult). Follow up with: Amanuel Newman Within 1 to 2 days PLEASE FOL LOW UP WITH DR. NEWMAN for you vomiting and dilated pancreatic duct.; Clary Grahamp son Within 1 to 2 days. Counseled: Patient, Regarding diagnosis, Regarding diagnosti c results, Regarding treatment plan, Patient indicated understanding of instructions. Addendum Attestation: Scribe Attestation: Nadia Eller, 02/06/2020 07:18:00, Scrib ing for and in the presence of,, Elsy May DO Provider Attestation: I cordelia pedraza performed the services described in the documentation, reviewed and edited the d ocumentation which was dictated to the scribe in my presence and it accurately records my words and actions.Damir DO, Laura.02/06/2020 08:19:52 Comment by: Clary Engle ma name diff card scanned from prev in ins screen matches ------ 02/06/2020 08:13:32 Comment by: Clary Jacobs verbal consent/ tele healthconsent/ verf info / ins from prev Clary Jacobs L[address] [id number] edicaid [facility] [id number] sign ed by Elsy May DO 02/09/2020 23:41 EDTElectronically signed by Nadia Eller 02/06/2020 11:17 EDT Name Value Range Interpretation Code Description Data Mariana rce(s) Supporting Document(s ) ID Date Data Source [id number] 02/02/2020 03:29:00 PM EDT [facility] Name Value Range Interpretation Code Description Data Supporting Source(s) Document(s ) Troponin- <0.03 <=0.05 NO [place] I ng/mL [facility] ID Date Data Source [id number] 02/02/2020 03:26:00 PM EDT [facility] Name Value Range Interpretation Description Data Sup porting Code Source(s) Document(s ) Glucose Lvl 123 65-99 HI [place] mg/dL [facility] BUN 9.6 6.0-20.0 [place] mg/dL [facility] Creatinine 0.82 0.40-1.0 NO [place] mg/dL 0 [facility] BUN/Creat 11.7 7.0-29.0 NO [place] Ratio ratio [facility] Sodium Lvl 135 136-145 LO [place] mmol/L [facility] Potassium Lvl 4.1 3.5-5.1 NO [place] mmol/L [facility] Chloride 103 98-107 NO [place] mmol/L [facility] CO2 18 23-29 [place] mmol/L [facility] 5-[facility] Calcium Lvl 9.5 8.6-10.0 NO [place] mg/dL [facility] Total Protein 7.8 6.0-8.3 NO [place] gm/dL [facility] Albumin Lvl 3.9 3.5-5.0 NO [place] gm/dL [facility] Glob 3.9 2.0-4.5 NO [place] gm/dL [facility] A/G Ratio 1.0 1.0-2.2 NO [place] ratio [facility] Bili Total 1.0 0.3-1.2 [place] mg/dL [facility] Alk Phos 121 IU/L 38-126 NO [facility] AST 32 IU/L 15-41 NO [facility] ALT 15 IU/L 7-40 [facility] ID Date Data Source [id number] 02/02/2020 03:18:00 PM EDT [place] [facility] Added by Discern Rule GLB_ADD_GFR_CMP Name Value Range Interpretation Code Description Data Mariana rce(s) Supporting Document(s ) eGFR-AA 83 >=60 NO [facility] mL/min/1.[address] The CKD-EPI equation for non- [place] r[place] individuals is used to calculate the estimated glomerular filtration rate (GF R). To estimate the GFR for Americans, multiply the provided GFR res ult by 1.16. The CKD-EPI equation is validated in individuals 18 years of age or older. It is less accurate in patients with extremes of muscle mass, restrictio n of dietary protein, ingestion of creatine, extra-renal metabolism of creatinine, or treatment with medications that affect renal tubular creatinine secretion.GFR Categor ies in Chronic Kidney Disease (CKD)GFR Category: GFR (mL/min/1.73 m2): Inte rpretation: G1 90 or greater Normal or high*G2 60-89 Mild decrease* G3a 45-59 Mild to moderate [id number] 30-44 Moderate to s evere decreaseG4 15-29 Severe decreaseG5 14 or less Kidney fa ilure eGFR-SUDHIR 69 mL/min/1.73m2 >=60 NO [facility] The CKD-EPI equation for non- [place] r[place] individuals is used to calculate the estimated glomerular filtration rate (GF R). To estimate the GFR for Americans, multiply the provided GFR res ult by 1.16. The CKD-EPI equation is validated in individuals 18 years of age or older. It is less accurate in patients with extremes of muscle mass, restrictio n of dietary protein, ingestion of creatine, extra-renal metabolism of creatinine, or treatment with medications that affect renal tubular creatinine secretion.GFR Categor ies in Chronic Kidney Disease (CKD)GFR Category: GFR (mL/min/1.73 m2): Inte rpretation: G1 90 or greater Normal or high*G2 60-89 Mild decrease* G3a 45-59 Mild to moderate [id number] 30-44 Moderate to s evere decreaseG4 15-29 Severe decreaseG5 14 or less Kidney fa ilure ID Date Data Source [id number] 02/02/2020 03:13:00 PM EDT [facility] Name Value Range Interpretation Description Data Sup porting Code Source(s) Document(s ) Neut Auto 68.7 % 50.0-80.0 NO [facility] Lymph Auto 22.9 % 14.0-44.0 NO [facility] [place] Auto 7.0 % 0.0-12.0 NO [facility] Eos Auto 0.8 % 0.0-7.0 NO [facility] Baso Auto 0.6 % 0.0-3.0 NO [facility] Neut 6.7 2.0-8.4 NO [place] Absolute x10(3)/[facility] Lymph 2.2 0.6-4.8 NO [place] Absolute x10(3)/[facility] [place] 0.7 0.0-1.1 NO [place] Absolute x10(3)/[facility] Eos Absolute 0.1 0.0-0.5 NO [place] x10(3)/[facility] Baso 0.1 0.0-0.3 NO [place] Absolute x10(3)/[facility] ID Date Data Source [id number] 02/02/2020 03:13:00 PM EDT [facility] Name Value Range Interpretation Description Data Sup porting Code Source(s) Document(s ) WBC 9.8 4.0-10.5 NO [place] x10(3)/[facility] RBC 5.00 3.80-5.20 NO [place] x10(6)/[facility] Hgb 11.7 11.4-15.1 NO [place] gm/dL [facility] Hct 37.5 % 36.0-46.0 NO [facility] MCV 75 fL 80-98 LO [facility] MCH 23.5 pg 26.0-34.0 [facility] MCHC 31.4 32.0-36.0 [facility] gm/dL [facility] RDW 18.6 % 11.0-15.0 [facility] Platelet 370 150-400 NO Ciar[place] x10(3)/mc [facility] MPV 7.4 fL 8.5-13.0 [facility] ID Date Data Source {[id number] 02/09/2020 07:55:00 AM EDT [facility] [id number]} [facility] Patient: MARIELA ROME Age: 69 years Sex: Female : 1950 Associated Diagnoses: Eructation Autho r: Neal Gamino MD Basic Information Time seen: Date and time 02/02/2020 14:48 :00. History source: Patient. Arrival mode: Private vehicle, walking. History limita tion: None. Additional information: Chief Complaint from Nursing Triage Note : Chi ef Complaint 02/02/2020 13:51 EDT Chief Complaint states was here tu day night, vomiting, and nausea, unable to keep food down ,m frequent belching, can not keep meds down either . History of Present Illness 69 year old female with a past medical history of MAURICIO, HTN, HLD, acid reflux, anxiety, and asthma presents to the ED for an evaluation of nausea and vomiting onset 2 days ago. Pt states primo t she has been unable to tolerate PO intake due to her nausea and frequent belching. Pt was seen in this ED 2 days ago and with a similar complaint of nausea, vomiting an d difficulty swallowing. Pt denies any fevers, chill, sweats, cough, shortness of breath or any other symptoms at this time. PCP: Clary Morejon Review of Systems Constitutional symptoms: No fever, no chills, no sweats. Skin symptoms: No j aundice, no rash. Eye symptoms: No recent vision problems, no pain. ENMT symptoms : No ear pain, no sore throat. Respiratory symptoms: No shortness of breath, no co ugh. Cardiovascular symptoms: No chest pain, no tachycardia. Gastrointestinal symptoms: Nausea, vomiting, Burping, no diarrhea, no constipation. Genitourinar y symptoms: No dysuria, no hematuria. Musculoskeletal symptoms: No back pain, no Muscle pain. Neurologic symptoms: No headache, no dizziness. Health Status Allergies: Allergic Reactions (Selected)Severity Not DocumentedAmoxici llin- No reactions were documented.Azithromycin ophthalmic- No r eactions were documented.Compazine- No reactions were documented.Flu vaccines- No reactions were documented.Latex- No reactions were documented.Latex Exam Barb ves MISC- No reactions were documented.Lipitor- No reactions were do cumented.Norvasc- No reactions were documented.Omeprazole- No reactions were documented.Penicillin- No reactions were documented.Penicillins- No reactions wer e documented.Shellfish- No reactions were documented.Sulfa drugs- No reactions wer e documented.Zithromax- No reactions were documented.. Medications: (Selected) Pr escriptionsPrescribedCarafate 1 g/10 mL oral suspension: 1 gm, 10 mL, Oral, QID, for 10 day(s), 400 mL, 0 Refill(s)Lidoderm 5% topical film: 1 patch(es), TOP, Daily, f or 7 day(s), PRN: Pain, 30 patch(es), 0 Refill(s)Protonix 40 mg oral granule, en teric coated: 40 mg, 1 EA, Oral, BID, for 30 day(s), 60 abs, 0 Refill(s)Robaxin-750 o ral tablet: 1,500 mg, 2 tab, Oral, TID, for 7 day(s), 22 tab, 0 Refill(s)albuterol 2.5 mg/3 mL (0.083%) inhalation solution: 2.5 mg, 3 mL, NEB, q6hr (specified start), P RN: for wheezing, 25 EA, 0 Refill(s)diltiazem 360 mg/24 hours oral capsule, extended r elease: 360 mg, 1 cap, Oral, Daily, 30 cap, 0 Refill(s)ibuprofen 600 mg oral tablet: 6 00 mg, 1 tab, Oral, q6hr (specified start), PRN: for pain, 21 tab, 0 Refill(s)losart an 25 mg oral tablet: 25 mg, 1 tab, Oral, Daily, 30 tab, 0 Refill(s)nitroglycerin 0.6 mg/hr transdermal film, extended release: 1 patch(es), TOP, Daily, 30 patch(es), 0 Refill(s)Documented MedicationsDocumentedDiphenhist 25 mg or al tablet: 25 mg, 1 tab, Oral, BID, PRN: as needed, 0 Refill(s)Ventolin HFA: INH, QI D, 0 Refill(s)Vitamin D3 2000 intl units oral tablet: Oral, Daily, 0 Refill(s)aspirin: 81 mg, Oral, Daily, 0 Refill(s)busPIRone 15 mg oral tablet: 15 mg, 1 tab, Oral, TID, 270 tab, 0 Refill(s)simvastatin: 40 mg, Oral, Daily, 0 Refill(s), per nurse's no ally. Immunizations: Up to date, per nurse's notes. Past Medical/ Family/ Social His tory Medical history: No active or resolved past medical history items have been fifi ected or recorded.. Surgical history: EGD - SN (None) performed by Padmini LAFLEUR, Juan Manuel Garrett on 12/02/2018 at 68 Years.Comments:12/02/2018 18:54 EST - Hedy romero RN, Kiersten Walter-populated from documented surgical casethyroid nodule r emoved.. Family history: FatherCancerMotherCancerBrotherCancerSis terCancer. Social history: . Problem list: Active Problems (10)Acid reflux A ngina pectoris Anxiety Asthma Chest pain Hyperlipidemia Hypertension Obstructive sleep apnea Pre-operative cardiovascular examination Shortness of breath . Physi tc Examination Vital Signs Time: 02/02/2020 14:48:00. Vital Signs 02/02/2020 13:51 EDT Temperature Oral 98 DegF Systolic Blood Pressure 164 mmHg HI D iastolic Blood Pressure 92 mmHg >HHI Mean Arterial Pressure, Cuff 116 mmHg Heart Rate Monitored 109 bpm HI Respiratory Rate 16 br/min . Per nurse's note s. Measurements 02/02/2020 13:51 EDT Clinical Weight 60 kg Body Mass Index Measured 2 2.04 kg/m2 Body Mass Index Measured 22.04 kg/m2 Height/Length Measured 165 cm . B asic Oxygen Information 02/02/2020 13:51 EDT SpO2 100 % Oxygen Therapy Room air . Ge neral: Alert, General appearance in no acute distress. Skin: Warm, dry, pink. Head : Normocephalic, atraumatic. Neck: Supple, trachea midline. Eye: Pupils are equal , round and reactive to light, extraocular movements are intact. Ears, nose, mouth and throat: Oral mucosa moist. Cardiovascular: Regular rate and rhythm , No murmur, Normal peripheral perfusion, No edema. Respiratory: Lungs are clear to auscultation, respirations are non-labored, breath sounds are equal, Symmetrical radha st wall expansion. Chest wall: No tenderness. Back: Nontender, Normal ran ge of motion. Musculoskeletal: Normal ROM, normal strength, no deformity. Gastroin testinal: Soft, Nontender, Non distended. Neurological: No focal neurological def icit observed, Alert and oriented x3. Fluent speech. . Psychiatric: Cooperative, ap propriate mood and affect. Medical Decision Making Differential Diagnosis: Nausea, vomiting, gastroenteritis. Rationale: 69 year old female with a past medical hist ory of MAURICIO, HTN, HLD, acid reflux, anxiety, and asthma presents to the ED for an nick luation of nausea and vomiting onset 2 days ago. After initial examination of the pa tient, the plan is to order labs, EKG, symptom control, and reassess the patien t's condition. Patient understands and agrees with the plan for treatment. All questio ns addressed at this time. Differential diagnoses above. . Documents reviewed: Emergency department nurses' notes, emergency department records, prior records. Orde rs Launch Order Profile (Selected) Inpatient OrdersOrderedDischarge Disposition ED: E KG: Completed.Glomerular Filtration Rate: CBC w/ Auto Diff: Comprehensive Metabolic Pa keara: Differential, Automated: NS Bolus: 500 mL, 1000 mL/hr, IV Infusion, OnceTroponi n-I: Valium: 5 mg, 1 mL, IV Push, OnceDiscontinuedRotate IV Site: Future ( On Hold)Follow Up Lab: PrescriptionsPrescribedValium 2 mg oral tablet: 4 mg, 2 tab, Oral, BID, for 3 day(s), only if needed. do not take wit other b enzodiazepoimes, or alcohol, PRN: for anxiety, 6 tab, 0 Refill(s). Electrocard iogram: Time 02/02/2020 15:03:00, rate 70, normal sinus rhythm, No ST-T changes, no rmal CT and QRS intervals, The [place] is normal. . Results review: Lab results : Lab View 02/02/2020 14:40 EDT WBC 9.8 x10(3)/mcL RBC 5.00 x10(6)/mcL Hgb 11. 7 gm/dL Hct 37.5 % MCV 75 fL LOW MCH 23.5 pg LOW MCHC 31.4 gm/dL LOW RDW 18.6 % HI Platelet 370 x10(3)/mcL MPV 7.4 fL LOW Neut Auto 68.7 % Lymph Auto 22.9 % [place] Auto 7.0 % Eos Auto 0.8 % Baso Auto 0.6 % Neut Absolute 6.7 x10(3)/mc L Lymph Absolute 2.2 x10(3)/mcL [place] Absolute 0.7 x10(3)/mcL Eos Absolute 0. 1 x10(3)/mcL Baso Absolute 0.1 x10(3)/mcL Glucose Lvl 123 mg/dL HI BUN 9.6 mg/dL Creatinine 0.82 mg/dL eGFR-AA 83 mL/min/1.73m2 eGFR-SUDHIR 69 mL/min/1.73m2 BUN/Creat Ratio 11.7 ratio Sodium Lvl 135 mmol/L LOW Potassium Lvl 4.1 mmol/L C hloride 103 mmol/L CO2 18 mmol/L LOW AGAP 14 Calcium Lvl 9.5 mg/dL ALT 15 IU/L AST 32 IU/L Alk Phos 121 IU/L Total Protein 7.8 gm/dL Albumin Lvl 3.9 gm/dL Glob 3 .9 gm/dL A/G Ratio 1.0 ratio Bili Total 1.0 mg/dL Troponin-I <0.03 ng/mL . Reexami nation/ Reevaluation Time: 02/02/2020 16:20:00 . Vital signs results included from flow sheet : Vital Signs 02/02/2020 15:53 EDT Systolic Blood Pressure 106 mmHg Diasto lic Blood Pressure 79 mmHg Mean Arterial Pressure, Cuff 88 mmHg Heart Rate Monit ored 69 bpm Respiratory Rate 24 br/min HI 02/02/2020 15:33 EDT Systolic Blood Press ure 128 mmHg Diastolic Blood Pressure 70 mmHg Mean Arterial Pressure, Cuff 89 mm Hg Heart Rate Monitored 74 bpm Respiratory Rate 22 br/min HI Basic Oxygen Informa tion 02/02/2020 15:53 EDT SpO2 97 % Oxygen Therapy Room air 02/02/2020 15:33 EDT SpO 2 98 % Oxygen Therapy Room air per nurse's notes Notes: Patient rechecked. Patient is resting comfortably and states they are feeling better. Discussed with patient r esults, diagnosis, treatment plan, follow up instructions with PCP, and plan for disc harge. Strict verbal discharge instructions and precautions given, and patient under stands to return to the ED with any new or worsening symptoms. Patient understands and accept the plan for discharge at this time. . Impression and Plan Diagnosis E ructation - [id number] R14.2, Discharge Plan Condition: Improved, Stable. Dispositio n: Discharged: Time 02/02/2020 16:26:00, to home. Prescriptions: Launch Meds List ( Selected) PrescriptionsPrescribedValium 2 mg oral tablet: 4 mg, 2 tab, Oral, BID, for 3 day(s), only if needed. do not take wit other benzodiazepoimes, or alcohol, PRN: for anxiety, 6 tab, 0 Refill(s). Patient was given the following educational mate rials: Low-Fiber Diet. Follow up with: Clary Morejon Within 3 to 5 days do a short tr ial of low fiber diet as above for 3 to5 days to see if any improvement. valium only if needed, do not take with other benzodiazepams, alcohol, may cause drows iness and or falls.. Counseled: Patient, Regarding diagnosis, Regarding diagnosti c results, Regarding treatment plan, Regarding prescription, Patient indicate d understanding of instructions. Addendum Attestation: Scribe Attestation: Coby Hawthorne, 02/02/2020 14:51:00, Scribing for and in the presence of,Stevenson MD, Alexa nder, Provider Attestation: I personally performed the services described in the documentation, reviewed and edited the documentation which was dictated to the scribe in my presence and it accurately records my words and actions., Neal Gamino MD.02/02/2020 15:10:09 Comment by: Madeleine Hearn pcp verified phon e reg verbal consent -----Madeleine Hearn [address] [place] [address] [id number] d AJIT [id number] sign ed by Neal Gamino MD 02/09/2020 07:55 EDTElectronically signed by Coby Last 02/02/2020 16:29 EDT Name Value Range Interpretation Code Description Data Mariana rce(s) Supporting Document(s ) ID Date Data Source [id number] 02/01/2020 01:22:00 AM EDT [facility] Patient Name: JHONATAN OROZCO ANEMRN: [id number] General DiagnosticACCESSION EXAM DATE/TIME PROCEDURE ORDERING PROVIDER [id number] 02/01/2020 01:14 EDT XR Neck Soft Tissue Joseluis LAFLEUR, Terry Sampson (V erified) C.Reason For Exa m(XR Neck Soft Tissue) Other (Add Reason to Special Instructions)ReportPROCEDURE: R adiograph Soft Tissue NeckCLINICAL HISTORY: DysphagiaCOMPARISON: None.TECHNIQUE:Fro ntal and lateral radiographic view of the soft tissues of the neck was performed.F INDINGS:There are degenerative changes in the cervical spine.The prevertebral soft tis sues are normal.The airway is patent.The laryngeal structures and the epiglottis are within normal limits.No radiopaque foreign body is seen.IMPRESSION:No acute process identified in the soft tissues of the neck by radiograph.Thank you for all owing us to participate in the evaluation of this patient. Final Dictated: Yas Hines MD 02/01/20 01:19Signed: Yas Hines MD 02/01/20 01:2 2Transcribed by: NAC Name Value Range Interpretation Code Description Data Amriana rce(s) Supporting Document(s ) ID Date Data Source [id number] 02/03/2020 10:43:00 AM EDT [id number] Patient: MARIELA ROME Age: 69 years Sex: Female : 1950 Associated Diagnoses: Pain, dental; Dy sphagia Author: Terry Huggins MD Basic Information Time seen: Date and time 01/04 23:40:00. History source: Patient. Arrival mode: Ambulance-ALS. History morton itation: None. Additional information: Chief Complaint from Nursing Triage Note : Chi ef Complaint 01/31/2020 19:36 EDT Chief Complaint Feels a lump in thro at, had a tooth pulled 3 weeks ago and has stitches in mouth. Seen at [facility] a nd sent here for evaluation. +vomiting, difficulty swallowing . History of Pre sent Illness 69 year old female with a medical history of anxiety on Lorazepam, asthma, HLD, acid reflux with a Schatzki ring and HTN presents to the ED, brought in by EMS for an evaluation of a mouth problem. Patient had 4 dental extraction s 3 weeks ago and has not yet been able to follow up with her oral surgeon or denti st. She has made phone calls and states they're supposed to call them back tomor row morning. Patient believes she has retained sutures. She is denying any millicent n in the mouth or tenderness or swelling in the gums. Patient went to Urgent Care to have her sutures removed because she is concerned that they may fall out and she could swallow them. Although patient feels a lump in her throat there are no signs up on palpation on exam. In December of 2018, patient was admitted for a GI bleed and could not swallow foods but had a Barium study done by Dr. Zuniga [facility]. Patient also has a history of an esophageal stricture with a dilatation in the past. She usually has trouble swallowing solids not fluids. Sh tobias is scheduled for another esophageal dilatation once elective procedure are p ermitted again. Patient has no other acute sx at this time. Review of Systems Constit utional symptoms: No fever, no chills. Skin symptoms: No rash, Eye symptoms: No r ecent vision problems, ENMT symptoms: retained sutures, feels lumps in throat , No sore throat, Respiratory symptoms: No shortness of breath, no cough. Cardiova scular symptoms: No chest pain, Gastrointestinal symptoms: No abdominal pain, no nausea, no vomiting, no diarrhea. Genitourinary symptoms: No dysuria, no hematuria. Musculoskeletal symptoms: No back pain, Neurologic symptoms: No hea dache, Health Status Allergies: Allergic Reactions (Selected)Severity Not Documen tedAmoxicillin- No reactions were documented.Azithromycin ophthalmic- No r eactions were documented.Compazine- No reactions were documented.Flu vaccines- No reactions were documented.Latex- No reactions were documented.Latex Exam Barb ves MISC- No reactions were documented.Lipitor- No reactions were do cumented.Norvasc- No reactions were documented.Omeprazole- No reactions were documented.Penicillin- No reactions were documented.Penicillins- No reactions wer e documented.Shellfish- No reactions were documented.Sulfa drugs- No reactions wer e documented.Zithromax- No reactions were documented.. Medications: Per nurse's no ally. Immunizations: Per nurse's notes. Past Medical/ Family/ Social History Medical history: Reviewed as documented in chart. Surgical history: EGD - SN (None) perfo rmed by Padmini LAFLEUR, Juan Manuel N. RKeaton on 12/02/2018 at 68 Years.Comments:12/02/2018 18:54 ELIESER Isaacs RN, Kiersten Walter-populated from documented surgical casethyroid nodule r emoved.. Family history: FatherCancerMotherCancerBrotherCancerSis terCancer. Social history: . Problem list: Active Problems (10)Acid reflux Angina pectoris Anxiety Asthma Chest pain Hyperlipidemia Hypertension Obstruc tive sleep apnea Pre-operative cardiovascular examination Shortness of breath . Physi tc Examination Vital Signs Vital Signs 01/31/2020 19:36 EDT Temperature Or al 98.4 DegF Systolic Blood Pressure 171 mmHg HI Diastolic Blood Pressure 101 m mHg >HHI Heart Rate Monitored 99 bpm Respiratory Rate 16 br/min . Measurement s 01/31/2020 19:36 EDT Clinical Weight 62 kg Body Mass Index Measured 25.81 kg/m2 Tarun dy Mass Index Measured 25.81 kg/m2 Height/Length Measured 155 cm 01/31/2020 8:35 EDT Height/Length Measured 155 cm BMI Exclusion Reason None Height/Length Inc hes 61 inch . Basic Oxygen Information 01/31/2020 22:30 EDT SpO2 100 % Oxygen T herapy Room air . General: Alert, general appearrance in no acute distress. Skin: Warm, dry. Head: Normocephalic, atraumatic. Neck: Supple, trachea midl ine, no tenderness, No palpable masses. Eye: Extraocular movements are intact. Ears, nose, mouth and throat: Oral mucosa moist, No large sutures in any of the sites fro m which the four teeth were removed (1 upper, 2 lower on the right and one upper on th e left), remnants of likely suture material but nothing that can be easily taken out or which could cause esophageal blockages. . Cardiovascular: Regular rate and rhy thm, Normal peripheral perfusion. Respiratory: Lungs are clear to auscult ation, respirations are non-labored, breath sounds are equal. Gastrointestinal: So ft, Nontender, Non distended. Neurological: Alert and oriented to person, place, trina e, and situation, No focal neurological deficit observed, normal speech observed . Psychiatric: Cooperative, appropriate mood and affect. Medical Decision Delores pulido Differential Diagnosis: Dental pain. Rationale: After initial exam and evalu ation plan is to order a UA, labs and reassess. . Documents reviewed: Emergen cy department nurses' notes. Orders Launch Order Profile (Selected) Inpatient Order sCompleted.Glomerular Filtration Rate: CBC w/ Auto Diff: CMP: Differential, Automated: Urinalysis (UA) with Reflex Culture: . Results review: Lab results : Lab View 01/31/2020 22:28 EDT UA Color Yellow UA Appear Clear UA pH 6.5 UA Spec Grav 1. 016 UA Glucose Negative mg/dL UA Ketones 40 (2+) mg/dL UA Urobilinogen 1.0 EU/mL U A Bili Negative UA Blood Negative UA Protein Negative mg/dL UA Nitrite Negat alfie UA Leuk Est Negative 01/31/2020 22:00 EDT WBC 11.9 x10(3)/mcL HI RBC 5.64 x10(6) /mcL HI Hgb 13.1 gm/dL Hct 42.3 % MCV 75 fL LOW MCH 23.2 pg LOW MCHC 30.9 gm/ dL LOW RDW 18.7 % HI Platelet 427 x10(3)/mcL HI MPV 7.1 fL LOW Neut A uto 71.5 % Lymph Auto 19.6 % [place] Auto 6.7 % Eos Auto 0.7 % Baso Auto 1.5 % Jamin t Absolute 8.5 x10(3)/mcL HI Lymph Absolute 2.3 x10(3)/mcL [place] Absolute 0 .8 x10(3)/mcL Eos Absolute 0.1 x10(3)/mcL Baso Absolute 0.2 x10(3)/mcL Glucose Lv l 134 mg/dL HI BUN 8.2 mg/dL Creatinine 0.73 mg/dL eGFR-AA >90 mL/min/1.73m2 e GFR-SUDHIR 79 mL/min/1.73m2 BUN/Creat Ratio 11.1 ratio Sodium Lvl 139 mmol/L Potas sium Lvl 4.1 mmol/L Chloride 106 mmol/L CO2 21 mmol/L LOW AGAP 12 Calcium Lvl 10. 0 mg/dL ALT 11 IU/L AST 18 IU/L Alk Phos 138 IU/L HI Total Protein 8.7 gm/dL H I Albumin Lvl 4.4 gm/dL Glob 4.3 gm/dL A/G Ratio 1.0 ratio Bili Total 0.7 mg/dL . Radiology results: * Final Report *Reason For ExamOther (Add Reason to Special Ins tructions)ReportPROCEDURE: Radiograph Soft Tissue NeckCLINICAL HISTORY: Dysphagia COMPARISON: None.TECHNIQUE: Frontal and lateral radiographic view of the soft ti ssues of the neck was performed.FINDINGS:There are degenerativ e changes in the cervical spine. The prevertebral soft tissues are normal. T he airway is patent. The laryngeal structures and the epiglottis are within normal morton its.No radiopaque foreign body is seen.IMPRESSION: No acute process identi fied in the soft tissues of the neck by radiograph.Thank you for allowing us to participate in the evaluation of this patient.Signature Line Final D ictated: Yas Hines MD 02/01/20 01:19Signed: Yas Hines MD 02/01/20 01:22Transcribed by: Scott document has an image Result type: XR Neck Soft TissueResult date: February 01, 2020 1:14 EDTResult status: Auth (Verified)Kerry trinidad title: XR Neck Soft TissuePerformed by: Yas Hines MD on February 01, 2020 1: 19 EDTVerified by: Yas Hines MD on February 01, 2020 1:22 EDTEncounter info: [id number], [facility] [place] . MEDICAL DECISION MAKING; PATIENT HAD EXT RACTION OF 4 TEETH 3 WEEKS AGO. WANTED TO GET SUTRES REMOVED AND DID NOT GET REPLY WHE N PHONING HER ORAL SURGEON. 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 PLAN IS FOR DILATATION ON AN ELECTIVE BASIS. SWALLOWS LIQUIDS BUT NO SOLIDS CU RRENTLY. IN ED. DENTAL EXAM - NO SWELLING OR TENDERNESS OF THE GINGIVA . SOCKETS OF E XTRACTION SITES REVEAL SCANT REMNANTS OF POSSIBE REMAINING SUTURES. BUT NO TAILS. MAY BE DISSOLVABLE SUTURES. IN ANY EVENT, NO INDICAITION FOR REMOVAL IN ED. GIVEN PPI AND LABS RE HER DYPHAGIASHE IS ANXIOUS THAT SUTRES MIGHT COME OUT AND GET STUCK IN H ER THROAT BUT MUCOUS MEMBRANES ARE MOIST AND NO DEHYDRATION NOTED AND ORAL INTAKE SHERI EARS ADEQUATE. AND NO SIGNS OF LOOSE FOREIGN BODY OR SUTURE MATERIAL THAT WOULD CAUSE A PROBLEM.SHE WILL FOLLOW UP WITH HER ORAL SURGEON AND [employer]EL [employer]REL REAMER Reexamin ation/ Reevaluation Time: 02/01/2020 00:19:00 . Notes: Patient lying in bed, well-appe aring. BP is stable now, patient has been compliant with BP medication. Discussed and explained results with patient along with diagnosis and plan for discharge. Inform ed patient to follow up with PCP, GI and oral surgeon within 3-5 days. Return to ER i nstructions given for continued or worsening symptoms.. Time: 02/01/2020 00:35:00 . No ally: Patient is now refusing discharge. Will order an x-ray of the neck soft tissue a nd reassess. . Time: 02/01/2020 04:00:00 . Notes: Patient lying in bed, well-appear ing. She is now able to tolerate fluids. Will start the patient on Carafate. Discussed and explained results with patient along with diagnosis and plan for discharge. I nformed patient to follow up with PCP, GI and Oral surgeon within 3-5 days. Discussed and explained prescribed medication. Return to ER instructions given for continued o r worsening symptoms. Patient understands and agrees with plan of care. All questions answered.. Impression and Plan Diagnosis Pain, dental - [id number] K08.89, Discharg e Pain, dental - [id number] K08.89, Discharge Dysphagia - [id number] R13.10, Discharge P chio Condition: Improved. Disposition: Discharged: Time 02/01/2020 04:02:00, to home. Prescriptions: Launch Meds List (Selected) PrescriptionsPrescribedCarafa te 1 g/10 mL oral suspension: 1 gm, 10 mL, Oral, QID, for 10 day(s), 400 mL, 0 Refi ll(s). Patient was given the following educational materials: Dental Pain. Fol low up with: Darrel Zuniga Within 3 to 5 days; take the carafate solution four ti mes a day and follow up with Dr Zuniga, gis programmer Within 3 to 5 days; y our sutures do not need to be removed urgently. Follow up with your dental ji geoon by phone tomorrow. Within 3 to 5 days; PCPONLY NONE Within 3 to 5 days. Counse led: Patient, Regarding diagnosis, Regarding diagnostic results, Regarding treatment plan, Regarding prescription, Patient indicated understanding of instructions. Addendum Attestation: Scribe Attestation: Teresa Rogers, 02/01/2020 00:02:00, Scribing for and in the presence of,, Terry Huggins MD, Provider Attestation: I p ersonally performed the services described in the documentation, reviewed and edited t he documentation which was dictated to the scribe in my presence and it accurately records my words and actions., Terry Huggins MD.01/31/2020 20:52:02 Comment by : Yas Rankin [employer] [facility] [employer]. Yas Rankin [id number] [id number] AJIT BRUT [id number] sign ed by Terry Huggins MD 02/03/2020 10:43 EDTElectronically signed by CervTeresa jj 02/01/2020 04:54 EDT Name Value Range Interpretation Code Description Data Mariana rce(s) Supporting Document(s ) ID Date Data Source [id number] 01/31/2020 10:58:00 PM EDT [facility] Name Value Range Interpretation Description Data Sup porting Code Source(s) Document(s ) UA Color Yellow NO [facility] UA Appear Clear NO [facility] UA pH 5.0-8.0 NO [facility] UA Spec Grav 1.016 1.005-1.030 NO [facility] UA Glucose Negative NO [facility] UA Ketones Negative AB [facility] UA Urobilinogen 0.2-1.0 NO [facility] UA Bili Negative NO [facility] UA Blood Negative NO [facility] UA Protein Negative NO [facility] UA Nitrite Negative NO [facility] UA Leuk Est Negative NO [facility] ID Date Data Source [id number] 01/31/2020 10:38:00 PM EDT [facility] Name Value Range Interpretation Description Data Sup porting Code Source(s) Document(s ) Glucose Lvl 134 65-99 HI [place] mg/dL [facility] BUN 8.2 6.0-20.0 NO [place] mg/dL [facility] Creatinine 0.73 0.40-1.0 NO [place] mg/dL 0 [facility] BUN/Creat 11.1 7.0-29.0 NO [place] Ratio ratio [facility] Sodium Lvl 139 136-145 NO [place] mmol/L [facility] Potassium Lvl 4.1 3.5-5.1 NO [place] mmol/L [facility] Chloride 106 98-107 NO [place] mmol/L [facility] CO2 21 23-29 LO [place] mmol/L [facility] AGAP 12 5-15 NO [facility] Calcium Lvl 10.0 8.6-10.0 NO [place] mg/dL [facility] Total Protein 8.7 6.0-8.3 HI [place] gm/dL [facility] Albumin Lvl 4.4 3.5-5.0 NO [place] gm/dL [facility] Glob 4.3 2.0-4.5 NO [place] gm/dL [facility] A/G Ratio 1.0 1.0-2.2 NO [place] ratio [facility] Bili Total 0.7 0.3-1.2 NO [place] mg/dL [facility] Alk Phos 138 IU/L 38-126 HI [facility] AST 18 IU/L 15-41 NO [facility] ALT 11 IU/L 7-40 NO [facility] ID Date Data Source [id number] 01/31/2020 10:32:00 PM EDT [facility] Added by Discern Rule GLB_ADD_GFR_CMP Name Value Range Interpretation Code Description Data Mariana rce(s) Supporting Document(s ) eGFR-AA >90 >=60 NO [facility] mL/min/1.[address] The CKD-EPI equation for non- [place] r[place] individuals is used to calculate the estimated glomerular filtration rate (GF R). To estimate the GFR for Americans, multiply the provided GFR res ult by 1.16. The CKD-EPI equation is validated in individuals 18 years of age or older. It is less accurate in patients with extremes of muscle mass, restrictio n of dietary protein, ingestion of creatine, extra-renal metabolism of creatinine, or treatment with medications that affect renal tubular creatinine secretion.GFR Categor ies in Chronic Kidney Disease (CKD)GFR Category: GFR (mL/min/1.73 m2): Inte rpretation: G1 90 or greater Normal or high*G2 60-89 Mild decrease* G3a 45-59 Mild to moderate [id number] 30-44 Moderate to s evere decreaseG4 15-29 Severe decreaseG5 14 or less Kidney fa ilure eGFR-SUDHIR 79 mL/min/1.73m2 >=60 NO [facility] The CKD-EPI equation for non- [place] r[place] individuals is used to calculate the estimated glomerular filtration rate (GF R). To estimate the GFR for Americans, multiply the provided GFR res ult by 1.16. The CKD-EPI equation is validated in individuals 18 years of age or older. It is less accurate in patients with extremes of muscle mass, restrictio n of dietary protein, ingestion of creatine, extra-renal metabolism of creatinine, or treatment with medications that affect renal tubular creatinine secretion.GFR Categor ies in Chronic Kidney Disease (CKD)GFR Category: GFR (mL/min/1.73 m2): Inte rpretation: G1 90 or greater Normal or high*G2 60-89 Mild decrease* G3a 45-59 Mild to moderate [id number] 30-44 Moderate to s evere decreaseG4 15-29 Severe decreaseG5 14 or less Kidney fa ilure ID Date Data Source [id number] 01/31/2020 10:29:00 PM EDT [facility] Name Value Range Interpretation Description Data Sup porting Code Source(s) Document(s ) Neut Auto 71.5 % 50.0-80.0 NO [facility] Lymph Auto 19.6 % 14.0-44.0 NO [facility] [place] Auto 6.7 % 0.0-12.0 NO [facility] Eos Auto 0.7 % 0.0-7.0 NO [facility] Baso Auto 1.5 % 0.0-3.0 NO [facility] Neut 8.5 2.0-8.4 HI [place] Absolute x10(3)/[facility] Lymph 2.3 0.6-4.8 NO [place] Absolute x10(3)/[facility] [place] 0.8 0.0-1.1 NO [place] Absolute x10(3)/[facility] Eos Absolute 0.1 0.0-0.5 NO [place] x10(3)/[facility] Baso 0.2 0.0-0.3 NO [place] Absolute x10(3)/[facility] ID Date Data Source [id number] 01/31/2020 10:29:00 PM EDT [facility] Name Value Range Interpretation Description Data Sup porting Code Source(s) Document(s ) WBC 11.9 4.0-10.5 HI [place] x10(3)/[facility] RBC 5.64 3.80-5.20 HI [place] x10(6)/[facility] Hgb 13.1 11.4-15.1 NO [place] gm/dL [facility] Hct 42.3 % 36.0-46.0 NO [facility] MCV 75 fL 80-98 [facility] MCH 23.2 pg 26.0-34.0 [facility] MCHC 30.9 32.0-36.0 [facility] gm/dL [facility] RDW 18.7 % 11.0-15.0 [facility] Platelet 427 150-[address] [place] x10(3)/mc [facility] MPV 7.1 fL 8.5-13.0 [facility] ID Date Data Source [id number] 01/31/2020 07:47:00 PM EDT [facility] [id number]} [facility] Patient: MARIELA ROME Age: 69 years Sex: Female : 1950 Associated Diagnoses: None Author: Sidney Obando PA-C Basic Information Vital Signs Vital Signs 01/31/2020 19 :36 EDT Temperature Oral 98.4 DegF Systolic Blood Pressure 171 mmHg HI Diastolic B lood Pressure 101 mmHg >HHI Heart Rate Monitored 99 bpm Respiratory Rate 16 br /min . Triage Documentation: Chief Complaint from Triage: Vomiting. History of Prese nt Illness Chief Complaint 69-year-old female previous history of GERD angina anxiety asthma hypertension presents to emergency room with vomiting and difficulty tolera ting food and fluids for the past 4 days. Incidentally patient also reports recent tooth extractions with stitches in her mouth. Physical Examination General: Alert, no acute distress. Skin: Intact, normal for ethnicity. Neurological: Al ert and oriented to person, place, time, and situation, No focal neurological deficit observed, CN II-XII intact, normal sensory observed, normal motor observed, normal speech observed, normal coordination observed. Focused Exam: Oropharynx zamora nt.Electronically signed by Sarahi DAVALOSSidney Denny 01/31/2020 19:47 EDT Name Value Range Interpretation Code Description Data Mariana rce(s) Supporting Document(s ) ID Date Data Source [id number] 12/20/2019 12:10:00 PM EDT [facility] Patient Name: JHONATAN OROZCO ANEMRN: [id number] MammographyACCESSION EXAM DATE/TIME PROCEDURE ORDERING PROVIDER [id number] 12/20/2019 11:44 EDT MM DX DIG OSVALDO Reyes CANDY DIPPER, Auth (Verified ) LaMeshia MReason For E xam(MM DX DIG OSVALDO) abnormal mammographyReportPROCEDURE: Digital Yecenia gnostic Mammography BilateralCLINICAL HISTORY: Mammogram DiagnosticSCRIPT INF ORMATION: r92.8COMPARISON: Prior mammogram(s)LAST CLINICAL BREAST EXAM: unknownTECHNIQUE:Diagnostic mammogram with CC and MLO full field digital views of each breast was performed in combination with digital breast Tomosynthesis (DBT). The mammogram was additionally reviewed by a computer-aided detection system.FINDINGS :The breast tissue is heterogeneously dense, which could obscure detection of small m asses (50-75% glandular). Scattered, benign-appearing calcifications are seen There are stable nodular asymmetries bilaterally.The study demonstrates no ne w mass, microcalcifications or areas of architectural distortion that are suspic ious for malignancy.IMPRESSION:1. No evidence of malignancy.2. Dense breasts.RECOMMEND ATION:Annual bilateral screening mammogram recommended.Screening breast ultrasound may be appropriate due to dense breast tissue.Patient's calculated lifetime ris k based on the Tyrer-Cuzick model (to age 84): 8.5 %According to the [place] [employer] [employer] of Radiology:1. Yearly screening bilateral breast MRI is recommended for patients with a lifetime risk greater than 20%.2. Screening ultrasound may be appro priate for patients with dense breasts.References:1. Tyrer-Cuzick Model Breast Cancer Risk Evaluation Tool: http://marilia.[employer] Internationalpedia.com/2. ACR Approp riateness Criteria Breast Cancer Screening: https://acsearch.acr.org/docs/20385/Narr ative/Thank you for allowing us to participate in the evaluation of this pa tient. Final BI-RADS Assessment: 2-Benign findingRecommendation: Normal interval follow-upDictated: Rudy Chicas MD 12/20/2019 12:01Signed: Rudy Kenney MD 12/20/2019 12:10Transcribed by: MB Name Value Range Interpretation Code Description Data Mariana rce(s) Supporting Document(s ) ID Date Data Source [id number] 12/20/2019 11:31:00 AM EDT [facility] Patient Name: JHONATAN OROZCO ANEMRN: [id number] UltrasoundACCESSION EXAM DATE/TIME PROCEDURE ORDERING PROVIDER [id number] 12/20/2019 10:20 EDT US Breast Complete Clary Morejon Auth (Dino ified) BILReason For Exam(US Breast Complete B IL) Encounter for screening mammogram for malignant neoplasm of breastReportPROCED URE: Ultrasound Right Breast Dense Screening Complete with Real Time Image Documentat ionPROCEDURE: Ultrasound Left Breast Dense Screening Complete with Real Time Image DocumentationCLINICAL HISTORY: Dense Breast Screening of Bilateral Breasts.SCRIPT IN FORMATION: breast cancer screeningCOMPARISON: Multiple prior ultrasounds, most recent on 10/13/2018TECHNIQUE:Ultrasound of both breasts Dense Screening was performed in all four quadrants including the retroareolar regions in radial and antir adial planes.Comparison to prior exams is very limited due to the multiplicity of lesions, waxing and waning over time.FINDINGS:RIGHT:Multiple hypoechoic lesions are identified throughout the right breast, both solid and cystic. Many appe ar similar to prior exams. Some have changed in the interim. Some newly seen lesions are also identified. Some previously seen lesions are no longer visualized.At 3:30 , 4 cm from the nipple, there is a solid, hypoechoic, lobulated mass measuring 1.8 x 0.9 x 0.8 cm. Minimal vascularity is seen on Doppler imaging. There is an echogeni c focus at the periphery of this mass, suggesting a calcification. This likely corresponds to a nodular asymmetry in the inner breast seen on mammogram, also con taining a calcification. This mass has been seen on multiple prior outside ultrasoun ds dating back to 2014, stable in size.LEFT:Multiple hypoechoic lesions ar e identified throughout the left breast, both cystic and solid. Many appear similar to prior exams, and some have changed slightly. Many previously seen lesions are no long er visualized.IMPRESSION:1. Numerous likely benign lesions in each breast, as descri bed.2. 1.8 cm lobulated mass in the right breast at 3:30 has been present and esse ntially stable since 2014.3. No evidence of malignancy.4. The next bilateral ultraso und may be performed in one year.RECOMMENDATION:Annual screening al ast ultrasound may be appropriate due to dense breast tissue.Thank you for allowi ng us to participate in the evaluation of this patient. Final BI-RADS As sessment: 2-Benign findingRecommendation: Normal interval follow-upDictated: Rudy Rivero MD 12/20/19 10:22Signed: Rudy Chicas MD 12/20/19 11:31 Transcribed by: MB Name Value Range Interpretation Code Description Data Mariana rce(s) Supporting Document(s ) ID Date Data Source [id number] 10/08/2019 05:11:00 AM EST [facility] Patient Name: JHONATAN OROZCO ANEMRN: [id number] UltrasoundACCESSION EXAM DATE/TIME PROCEDURE ORDERING PROVIDER [id number] 10/08/2019 04:58 EST US Venous Doppler Jaciel LAFLEUR, Jamaal Penaloza Auth (Dino ified) Lower Ext RTReason For Exam(US Venous D oppler Lower Ext RT) Swelling EdemaReportPROCEDURE: Ultrasound Duplex Scan of Lower Extremity Veins RightCLINICAL HISTORY: Pain Right KneeSCRIPT INFORMAT ION: PainCOMPARISON: None.TECHNIQUE:Ultrasound evaluation two -dimensional imaging with graded compression and Doppler analysis and color flow Dopp ler imaging was performed on the deep veins of the right lower extremity to include the common femoral (including saphenofemoral junction), femoral, popliteal, and calf veins.FINDINGS:Normal color flow, waveform pattern and compressibility are identifi ed on bueno scale and color Doppler interrogation. There is no evidence for intraluminal thrombus. There is an ovoid avascular anechoic structure in the popl iteal fossa measuring 4.1 x 0.7 x 2.0 cm suspicious for a partially ruptured Bake r's cyst.IMPRESSION:No evidence of deep venous thrombosis, right lower extremity .Suspect partially ruptured Love's cyst with dimensions described above.Thank you for allowing us to participate in the evaluation of this patient. Final Dictate d: Mark Ann MD10/08/19 05:09Signed: Mark Ann MD 10/08/19 05:11Transcribed by: BDS Name Value Range Interpretation Code Description Data Mariana rce(s) Supporting Document(s ) ID Date Data Source [id number] 10/08/2019 04:50:00 AM EST [facility] Patient Name: JHONATAN OROZCO ANEMRN: [id number] General DiagnosticACCESSION EXAM DATE/TIME PROCEDURE ORDERING PROVIDER [id number] 10/08/2019 04:45 EST XR Knee 3 Views RT Jamaal Grissom MD Auth (Dino ified)Reason For Exam(XR Knee 3 Views RT) ArthritisReportPROCEDURE: Radiograph Kn ee 3 Views RightCLINICAL HISTORY: Right Leg Pain for 2 Weeks.SCRIPT INFORMATION: rig ht leg pain for 2 weeks.COMPARISON: None.TECHNIQUE:Anteroposterior, lateral, and oblique radiographic views of the right knee were performed.FINDINGS:Overall bon y mineralization is within normal limits.There is no evidence for acute fr acture or dislocation.There is mild medial and patellofemoral compartment arthropat hy. There may be a mild annular Pharis. The remaining alignment is within normal morton its.The soft tissues are unremarkable.There is no suprapatellar joint effusion.IMPRE SSION:No acute bony process is identified.Mild arthropathy.Thank you fo r allowing us to participate in the evaluation of this patient. Final * Dictated: Mark Ann MD10/08/19 04:49Signed: Shalom Ann MD 10/08/19 04:50Transcribed by: BDS Name Value Range Interpretation Code Description Data Mariana rce(s) Supporting Document(s ) ID Date Data Source [id number] 12/06/2018 07:31:00 AM EST [facility] Name Value Range Interpretation Description Data Sup porting Code Source(s) Document(s ) Glucose Lvl 102 65-99 [place] mg/dL [facility] BUN 6.0 6.0-20.0 NO [place] mg/dL [facility] Creatinine 0.66 0.40-1.0 NO [place] mg/dL 0 [facility] BUN/Creat 9.1 7.0-29.0 NO [place] Ratio ratio [facility] Sodium Lvl 138 136-145 NO [place] mmol/L [facility] Potassium Lvl 4.0 3.5-5.1 NO [place] mmol/L [facility] Chloride 106 98-107 [place] mmol/L [facility] CO2 23 23-29 [place] mmol/L [facility] AGAP 9 5-15 [facility] Calcium Lvl 8.9 8.6-10.0 NO [place] mg/dL [facility] ID Date Data Source [id number] 12/06/2018 07:32:00 AM EST [facility] Name Value Range Interpretation Code Description Data Mariana rce(s) Supporting Document(s ) eGFR-AA >60 >=60 NO [facility] mL/min/1.[address] [place] [address] Added by Discern Rule GLB_ADD_GFR_BMP eGFR-SUDHIR >60 mL/min/1.73m2 >=60 NO [facility] Added by Discern Rule GLB_ADD_GFR_BMP ID Date Data Source [id number] 12/06/2018 07:21:00 AM EST [facility] Name Value Range Interpretation Description Data Sup porting Code Source(s) Document(s ) Neut Auto 51.6 % 50.0-80.0 NO [facility] Lymph Auto 33.1 % 14.0-44.0 NO [facility] [place] Auto 10.3 % 0.0-12.0 NO [facility] Eos Auto 4.4 % 0.0-7.0 NO [facility] Baso Auto 0.6 % 0.0-3.0 NO [facility] Neut 2.9 2.0-8.4 NO [place] Absolute x10(3)/[facility] Lymph 1.8 0.6-4.8 NO [place] Absolute x10(3)/[facility] [place] 0.6 0.0-1.1 NO [place] Absolute x10(3)/[facility] Eos Absolute 0.2 0.0-0.5 [place] x10(3)/[facility] Baso 0.0 0.0-0.3 NO [place] Absolute x10(3)/[facility] ID Date Data Source [id number] 12/06/2018 07:21:00 AM EST [facility] Name Value Range Interpretation Description Data Sup porting Code Source(s) Document(s ) WBC 5.5 4.0-10.5 [place] x10(3)/[facility] RBC 4.12 3.80-5.20 [place] x10(6)/[facility] Hgb 10.3 11.4-15.1 [place] gm/dL [facility] Hct 32.0 % 36.0-46.0 LO [facility] MCV 78 fL 80-98 LO [facility] MCH 25.1 pg 26.0-34.0 LO [facility] MCHC 32.3 32.0-36.0 NO [place] gm/dL [facility] RDW 17.4 % 11.0-15.0 [facility] Platelet 319 150-400 NO [place] x10(3)/mc [facility] MPV 7.6 fL 8.5-13.0 LO [facility] ID Date Data Source [id number] 12/05/2018 07:01:00 AM EST [facility] Name Value Range Interpretation Code Description Data Mariana rce(s) Supporting Document(s ) eGFR-AA >60 >=60 NO [facility] mL/min/[address] Added by Discern Rule GLB_ADD_GFR_BMP eGFR-SUDHIR >60 mL/min/1.73m2 >=60 NO [facility] Added by Discern Rule GLB_ADD_GFR_BMP ID Date Data Source [id number] 12/05/2018 07:01:00 AM EST [facility] Name Value Range Interpretation Description Data Sup porting Code Source(s) Document(s ) Glucose Lvl 96 mg/dL 65-99 NO [facility] BUN 3.0 6.0-20.0 [place] mg/dL [facility] Creatinine 0.66 0.40-1.0 [place] mg/dL 0 [facility] BUN/Creat 4.5 7.0-29.0 [place] Ratio ratio [facility] Sodium Lvl 139 136-145 [place] mmol/L [facility] Potassium Lvl 3.9 3.5-5.1 [place] mmol/L [facility] Chloride 107 98-107 [place] mmol/L [facility] CO2 23 23-29 [place] mmol/L [facility] AGAP 9 5-15 NO [facility] Calcium Lvl 9.1 8.6-10.0 [place] mg/dL [facility] ID Date Data Source [id number] 12/05/2018 06:53:00 AM EST [facility] Name Value Range Interpretation Description Data Sup porting Code Source(s) Document(s ) Neut Auto 47.6 % 50.0-80.0 LO [facility] Lymph Auto 36.3 % 14.0-44.0 NO [facility] [place] Auto 11.2 % 0.0-12.0 NO [facility] Eos Auto 4.2 % 0.0-7.0 NO [facility] Baso Auto 0.7 % 0.0-3.0 NO [facility] Neut 2.7 2.0-8.4 NO [place] Absolute x10(3)/[facility] Lymph 2.0 0.6-4.8 NO [place] Absolute x10(3)/[facility] [place] 0.6 0.0-1.1 NO [place] Absolute x10(3)/[facility] Eos Absolute 0.2 0.0-0.5 [place] x10(3)/[facility] Baso 0.0 0.0-0.3 NO [place] Absolute x10(3)/[facility] ID Date Data Source [id number] 12/05/2018 06:53:00 AM EST [facility] Name Value Range Interpretation Description Data Sup porting Code Source(s) Document(s ) WBC 5.6 4.0-10.5 [place] x10(3)/[facility] RBC 4.43 3.80-5.20 [place] x10(6)/[facility] Hgb 11.2 11.4-15.1 [place] gm/dL [facility] Hct 34.3 % 36.0-46.0 [facility] MCV 78 fL 80-98 [facility] MCH 25.4 pg 26.0-34.0 [facility] MCHC 32.7 32.0-36.0 [place] gm/dL [facility] RDW 17.7 % 11.0-15.0 [facility] Platelet 338 150-400 NO [place] x10(3)/mc [facility] MPV 7.3 fL 8.5-13.0 [facility] ID Date Data Source [id number] 12/04/2018 06:19:00 AM EST [facility] Name Value Range Interpretation Description Data Sup porting Code Source(s) Document(s ) Glucose Lvl 99 mg/dL 65-99 NO [facility] BUN 1.0 6.0-20.0 [place] mg/dL [facility] Creatinine 0.52 0.40-1.0 [place] mg/dL 0 [facility] BUN/Creat 1.9 7.0-29.0 [place] Ratio ratio [facility] Sodium Lvl 139 136-145 NO [place] mmol/L [facility] Potassium Lvl 3.8 3.5-5.1 NO [place] mmol/L [facility] Chloride 109 98-107 [place] mmol/L [facility] CO2 24 23-29 [place] mmol/L [facility] AGAP 6 5-15 NO [facility] Calcium Lvl 8.6 8.6-10.0 [place] mg/dL [facility] ID Date Data Source [id number] 12/04/2018 06:19:00 AM EST [facility] Name Value Range Interpretation Code Description Data Mariana rce(s) Supporting Document(s ) eGFR-AA >60 >=60 NO [facility] mL/min/1.[address] Added by Discern Rule GLB_ADD_GFR_BMP eGFR-SUDHIR >60 mL/min/1.73m2 >=60 NO [facility] Added by Discern Rule GLB_ADD_GFR_BMP ID Date Data Source [id number] 12/04/2018 06:11:00 AM EST [facility] Name Value Range Interpretation Description Data Sup porting Code Source(s) Document(s ) Neut Auto 49.5 % 50.0-80.0 LO [facility] Lymph Auto 34.4 % 14.0-44.0 NO [facility] [place] Auto 11.5 % 0.0-12.0 NO [facility] Eos Auto 4.2 % 0.0-7.0 NO [facility] Baso Auto 0.4 % 0.0-3.0 NO [facility] Neut 2.4 2.0-8.4 NO [place] Absolute x10(3)/[facility] Lymph 1.7 0.6-4.8 NO [place] Absolute x10(3)/[facility] [place] 0.6 0.0-1.1 NO [place] Absolute x10(3)/[facility] Eos Absolute 0.2 0.0-0.5 [place] x10(3)/[facility] Baso 0.0 0.0-0.3 NO [place] Absolute x10(3)/[facility] ID Date Data Source [id number] 12/04/2018 06:11:[address] [facility] Name Value Range Interpretation Description Data Sup porting Code Source(s) Document(s ) WBC 4.9 4.0-10.5 [place] x10(3)/[facility] RBC 4.45 3.80-5.20 [place] x10(6)/[facility] Hgb 11.1 11.4-15.1 [place] gm/dL [facility] Hct 35.3 % 36.0-46.0 [facility] MCV 79 fL 80-98 [facility] MCH 25.0 pg 26.0-34.0 [facility] MCHC 31.5 32.0-36.0 [facility] RDW 17.5 % 11.0-15.0 [facility] Platelet 319 150-400 [facility] MPV 7.1 fL 8.5-13.0 [facility] ID Date Data Source [id number] 12/04/2018 06:24:[address] [facility] Name Value Range Interpretation Code Description Data Mariana rce(s) Supporting Document(s ) GGT 19 IU/L 7-50 NO [facility] ID Date Data Source [id number] 12/03/2018 11:02:[address] [facility] Name Value Range Interpretation Description Data Sup porting Code Source(s) Document(s ) WBC 4.9 4.0-10.5 [place] x10(3)/[facility] RBC 4.53 3.80-5.20 [place] x10(6)/[facility] Hgb 11.2 11.4-15.1 [place] gm/dL [facility] Hct 35.7 % 36.0-46.0 [facility] MCV 79 fL 80-98 [facility] MCH 24.6 pg 26.0-34.0 [facility] MCHC 31.2 32.0-36.0 [place] gm/dL [facility] RDW 17.5 % 11.0-15.0 [facility] Platelet 319 150-400 NO [facility] x10(3)/mc [facility] MPV 7.0 fL 8.5-13.0 [facility] ID Date Data Source [id number] 12/03/2018 05:43:00 AM EST [facility] Name Value Range Interpretation Description Data Sup porting Code Source(s) Document(s ) Magnesium 2.0 mg/dL 1.6-2.6 NO [facility] ID Date Data Source [id number] 12/03/2018 05:39:00 AM EST [facility] Name Value Range Interpretation Code Description Data Mariana rce(s) Supporting Document(s ) eGFR-AA >60 >=60 NO [facility] mL/min/[address] eGFR-SUDHIR >60 >=60 NO [facility] mL/min/[address] [place] [address] Added by Discern Rule GLB_ADD_GFR_CMP ID Date Data Source [id number] 12/03/2018 05:39:00 AM EST [facility] Name Value Range Interpretation Description Data Sup porting Code Source(s) Document(s ) Phosphorus 4.6 mg/dL 2.5-5.0 NO [facility] ID Date Data Source [id number] 12/03/2018 05:39:00 AM EST Luke [facility] Name Value Range Interpretation Description Data Sup porting Code Source(s) Document(s ) Glucose Lvl 94 mg/dL 65-99 NO [facility] BUN 3.0 6.0-20.0 [place] mg/dL [facility] Creatinine 0.64 0.40-1.0 [place] mg/dL 0 [facility] BUN/Creat 4.7 7.0-29.0 [place] Ratio ratio [facility] Sodium Lvl 137 136-145 [place] mmol/L [facility] Potassium Lvl 4.3 3.5-5.1 [place] mmol/L [facility] Chloride 109 98-107 [place] mmol/L [facility] CO2 23 23-29 [place] mmol/L [facility] AGAP 5 5-15 NO [facility] Calcium Lvl 8.9 8.6-10.0 [place] mg/dL [facility] Total Protein 6.4 6.0-8.3 NO [place] gm/dL [facility] Albumin Lvl 3.2 3.5-5.0 [place] gm/dL [facility] Glob 3.2 2.0-4.5 [place] gm/dL [facility] A/G Ratio 1.0 1.0-2.2 [place] ratio [facility] Bili Total 0.9 0.3-1.2 [place] mg/dL [facility] Alk Phos 136 IU/L 38-126 HI [facility] AST 14 IU/L 15-41 LO [facility] ALT 9 IU/L 7-40 NO [facility] ID Date Data Source [id number] 12/03/2018 05:25:00 AM EST [facility] Name Value Range Interpretation Code Description Data Mariana rce(s) Supporting Document(s ) APTT 39.9 27.4-38.2 Counts include 234 beds at the [facility] ID Date Data Source [id number] 12/03/2018 05:19:00 AM EST [facility] Name Value Range Interpretation Description Data Sup porting Code Source(s) Document(s ) Neut Auto 64.5 % 50.0-80.0 NO [facility] Lymph Auto 24.7 % 14.0-44.0 NO [facility] [place] Auto 8.2 % 0.0-12.0 NO [facility] Eos Auto 2.2 % 0.0-7.0 NO [facility] Baso Auto 0.4 % 0.0-3.0 NO [facility] Neut 3.4 2.0-8.4 NO [place] Absolute x10(3)/[facility] Lymph 1.3 0.6-4.8 NO [place] Absolute x10(3)/[facility] [place] 0.4 0.0-1.1 NO [place] Absolute x10(3)/[facility] Eos Absolute 0.1 0.0-0.5 [place] x10(3)/[facility] Baso 0.0 0.0-0.3 NO [place] Absolute x10(3)/[facility] ID Date Data Source [id number] 12/03/2018 05:19:00 AM EST [facility] Name Value Range Interpretation Description Data Sup porting Code Source(s) Document(s ) WBC 5.2 4.0-10.5 [place] x10(3)/[facility] RBC 4.52 3.80-5.20 [place] x10(6)/[facility] Hgb 11.3 11.4-15.1 [place] gm/dL [facility] Hct 35.6 % 36.0-46.0 [facility] MCV 79 fL 80-98 [facility] MCH 25.0 pg 26.0-34.0 [facility] MCHC 31.8 32.0-36.0 [place] gm/dL [facility] RDW 17.8 % 11.0-15.0 [facility] Platelet 320 150-400 NO [facility] x10(3)/[facility] MPV 7.3 fL 8.5-13.0 [facility] ID Date Data Source [id number] 12/02/2018 09:19:00 PM EST [facility] Name Value Range Interpretation Code Description Data Mariana rce(s) Supporting Document(s ) INR 1.1 ratio 0.9-1.2 [facility] PT 13.8 10.2-12.9 [facility] Indications INRProphylaxis ofvenous thromo-embolism: Non-hipsurgery...... .........................1.5 - 2.5 Hipsurgery.............................. .....2.0 - 3.0Deep VeinThrombosis or Pulmonary Embolism........2.0 - 3.0Preve ntion ofsystemic embolism in valvularheart disease, tissue prosthetic heartvalvesor acute NM...................................... .2.0 -3.5Prevention of embolism in mechanical heartvalves or recurrentsystemic embolis m.............3.0 - 4.5 ID Date Data Source [id number] 12/02/2018 09:04:00 PM EST [facility] Name Value Range Interpretation Description Data Sup porting Code Source(s) Document(s ) WBC 6.4 4.0-10.5 [place] x10(3)/[facility] RBC 4.43 3.80-5.20 [place] x10(6)/[facility] Hgb 11.2 11.4-15.1 [facility] gm/dL [facility] Hct 34.3 % 36.0-46.0 [facility] MCV 77 fL 80-98 [facility] MCH 25.3 pg 26.0-34.0 [facility] MCHC 32.8 32.0-36.0 NO [place] gm/dL [facility] RDW 17.5 % 11.0-15.0 [facility] Platelet 340 150-400 NO [place] x10(3)/[facility] MPV 7.3 fL 8.5-13.0 [facility] Pt when to GI lab 12/02/2018 19:04:51 EST JA ID Date Data Source [id number] 12/02/2018 03:55:00 PM EST [facility] Name Value Range Interpretation Code Description Data Mariana rce(s) Supporting Document(s ) ABSC Gel NO [facility] ID Date Data Source [id number] 12/02/2018 03:38:00 PM EST [facility] Name Value Range Interpretation Code Description Data Mariana rce(s) Supporting Document(s ) ABO/Rh UN [facility] ID Date Data Source [id number] 12/02/2018 01:47:00 PM EST [facility] Name Value Range Interpretation Description Data Sup porting Code Source(s) Document(s ) Neut Auto 81.1 % 50.0-80.0 [facility] Lymph Auto 13.2 % 14.0-44.0 LO [facility] [place] Auto 4.0 % 0.0-12.0 NO [facility] Eos Auto 0.7 % 0.0-7.0 NO [facility] Baso Auto 1.0 % 0.0-3.0 NO [facility] Neut 7.3 2.0-8.4 NO [place] Absolute x10(3)/[facility] Lymph 1.2 0.6-4.8 NO [place] Absolute x10(3)/[facility] [place] 0.4 0.0-1.1 NO [place] Absolute x10(3)/[facility] Eos Absolute 0.1 0.0-0.5 [place] x10(3)/[facility] Baso 0.1 0.0-0.3 NO [place] Absolute x10(3)/[facility] ID Date Data Source [id number] 12/02/2018 01:47:00 PM EST [facility] Name Value Range Interpretation Description Data Sup porting Code Source(s) Document(s ) WBC 9.0 4.0-10.5 [place] x10(3)/[facility] RBC 4.87 3.80-5.20 [place] x10(6)/[facility] Hgb 12.2 11.4-15.1 [place] gm/dL [facility] Hct 38.1 % 36.0-46.0 NO [facility] MCV 78 fL 80-98 [facility] MCH 25.1 pg 26.0-34.0 [facility] MCHC 32.1 32.0-36.0 [place] gm/dL [facility] RDW 17.9 % 11.0-15.0 HI [facility] Platelet 380 150-400 NO [place] x10(3)/[facility] MPV 7.3 fL 8.5-13.0 [facility] ID Date Data Source [id number] 12/02/2018 02:13:00 PM EST [facility] Name Value Range Interpretation Code Description Data Mariana rce(s) Supporting Document(s ) eGFR-AA >60 >=60 NO [facility] mL/min/[address] Added by Discern Rule GLB_ADD_GFR_CMP eGFR-SUDHIR >60 mL/min/1.73m2 >=60 NO [facility] Added by Discern Rule GLB_ADD_GFR_CMP ID Date Data Source [id number] 12/02/2018 02:13:00 PM EST [facility] Name Value Range Interpretation Description Data Sup porting Code Source(s) Document(s ) Glucose Lvl 111 65-99 [place] mg/dL [facility] BUN 5.0 6.0-20.0 [place] mg/dL [facility] Creatinine 0.68 0.40-1.0 [place] mg/dL 0 [facility] BUN/Creat 7.4 7.0-29.0 [place] Ratio ratio [facility] Sodium Lvl 137 136-145 NO [place] mmol/L [facility] Potassium Lvl 3.5 3.5-5.1 NO [place] mmol/L [facility] Chloride 105 98-107 [place] mmol/L [facility] CO2 18 23-29 [place] mmol/L [facility] AGAP 14 5-15 [place] [facility] Calcium Lvl 9.1 8.6-10.0 NO [place] mg/dL [facility] Total Protein 7.6 6.0-8.3 NO [place] gm/dL [facility] Albumin Lvl 3.8 3.5-5.0 NO [place] gm/dL [facility] Glob 3.8 2.0-4.5 NO [place] gm/dL [facility] A/G Ratio 1.0 1.0-2.2 NO [place] ratio [facility] Bili Total 1.1 0.3-1.2 [place] mg/dL [facility] Alk Phos 157 IU/L 38-126 HI [facility] AST 18 IU/L 15-41 NO [facility] ALT 10 IU/L 7-40 NO [facility] ID Date Data Source [id number] 11/17/2018 05:24:00 PM EST [place] [facility] Name Value Range Interpretation Description Data Sup porting Code Source(s) Document(s ) WBC 7.5 4.0-10.5 NO [place] x10(3)/[facility] RBC 4.64 3.80-5.20 [place] x10(6)/[facility] Hgb 11.6 11.4-15.1 NO [place] gm/dL [facility] Hct 35.6 % 36.0-46.0 [facility] MCV 77 fL 80-98 [facility] MCH 25.0 pg 26.0-34.0 [facility] MCHC 32.5 32.0-36.0 NO [place] gm/dL [facility] RDW 18.6 % 11.0-15.0 [facility] Platelet 363 150-400 NO [place] x10(3)/mc [facility] MPV 7.3 fL 8.5-13.0 [facility] ID Date Data Source [id number] 11/17/2018 05:34:00 PM EST [facility] Name Value Range Interpretation Code Description Data Mariana rce(s) Supporting Document(s ) Lipase Lvl 22 IU/L 22-51 NO [facility] ID Date Data Source [id number] 11/17/2018 05:36:00 PM EST [facility] Name Value Range Interpretation Code Description Data Supporting Source(s) Document(s ) Troponin- <0.03 <=0.05 NO [place] I ng/mL [facility] ID Date Data Source [id number] 11/17/2018 05:27:00 PM EST [facility] Name Value Range Interpretation Description Data Sup porting Code Source(s) Document(s ) Glucose Lvl 135 65-99 [place] mg/dL [facility] BUN 5.0 6.0-20.0 [place] mg/dL [facility] Creatinine 0.60 0.40-1.0 [place] mg/dL 0 [facility] BUN/Creat 8.3 7.0-29.0 NO [place] Ratio ratio [facility] Sodium Lvl 141 136-145 NO [place] mmol/L [facility] Potassium Lvl 3.7 3.5-5.1 NO [place] mmol/L [facility] Chloride 110 98-107 [place] mmol/L [facility] CO2 21 23-29 [place] mmol/L [facility] AGAP 10 5-15 NO [facility] Calcium Lvl 9.0 8.6-10.0 NO [place] mg/dL [facility] Total Protein 7.1 6.0-8.3 NO [place] gm/dL [facility] Albumin Lvl 3.6 3.5-5.0 NO [place] gm/dL [facility] Glob 3.5 2.0-4.5 NO [place] gm/dL [facility] A/G Ratio 1.0 1.0-2.2 NO [place] ratio [facility] Bili Total 0.5 0.3-1.2 [place] mg/dL [facility] Alk Phos 138 IU/L 38-126 HI [facility] AST 18 IU/L 15-41 NO [facility] ALT 8 IU/L 7-40 NO [facility] ID Date Data Source [id number] 11/17/2018 05:27:00 PM EST [facility] Name Value Range Interpretation Code Description Data Mariana rce(s) Supporting Document(s ) eGFR-AA >60 >=60 NO [facility] mL/min/1.[address] [place] [address] Added by Discern Rule GLB_ADD_GFR_CMP eGFR-SUDHIR >60 mL/min/1.73m2 >=60 NO [facility] Added by Discern Rule GLB_ADD_GFR_CMP ID Date Data Source [id number] 11/17/2018 05:24:00 PM EST [facility] Name Value Range Interpretation Description Data Sup porting Code Source(s) Document(s ) Neut Auto 63.9 % 50.0-80.0 NO [facility] Lymph Auto 24.5 % 14.0-44.0 NO [facility] [place] Auto 7.9 % 0.0-12.0 NO [facility] Eos Auto 3.0 % 0.0-7.0 NO [facility] Baso Auto 0.7 % 0.0-3.0 NO [facility] Neut 4.8 2.0-8.4 NO [place] Absolute x10(3)/[facility] Lymph 1.8 0.6-4.8 NO [place] Absolute x10(3)/[facility] [place] 0.6 0.0-1.1 NO [place] Absolute x10(3)/[facility] Eos Absolute 0.2 0.0-0.5 [place] x10(3)/[facility] Baso 0.1 0.0-0.3 NO [place] Absolute x10(3)/[facility] ID Date Data Source [id number] 11/17/2018 06:07:00 PM EST [facility] Name Value Range Interpretation Description Data Sup porting Code Source(s) Document(s ) D-Dimer <150.0 0.0-230.0 [place] ng/ml D-DU [facility] If the result is below 230 (ng/mL DDU) D VT/PE is highly unlikely based onclinical studies and a test validation [place] [facility] This is an exclusionary test.A normal D-dimer does not exclude the possibility of DIC. If theresult is greater than 230 (ng/mL DDU) DVT/PE or DIC may be present. Procedure Social History Code Duration Value Status Description Data Source(s ) Smoking 02/26/2020 Never smoked completed Never smoked [place] [facility] - 02:41:10 AM EDT tobacco tobacco (finding) [facility] Smoking 02/20/2020 Never smoked completed Never smoked [place] [facility] - 05:31:31 PM EDT tobacco tobacco (finding) [facility] Smoking 02/20/2020 Never smoked completed Never smoked [place] [facility] - 05:31:31 PM EDT tobacco tobacco (finding) [facility] Smoking 02/20/2020 Never smoked completed Never smoked [place] [facility] - 05:31:31 PM EDT tobacco tobacco (finding) [facility] Smoking 02/20/2020 Never smoked completed Never smoked [place] [facility] - 05:31:31 PM EDT tobacco tobacco (finding) [facility] Smoking 02/13/2020 Never smoked completed Never smoked [place] [facility] - 05:00:13 AM EDT tobacco tobacco (finding) [facility] Smoking 02/13/2020 Never smoked completed Never smoked [place] [facility] - 05:00:13 AM EDT tobacco tobacco (finding) [facility] Smoking 02/13/2020 Never smoked completed Never smoked [place] [facility] - 05:00:13 AM EDT tobacco tobacco (finding) [facility] Smoking 02/13/2020 Never smoked completed Never smoked [place] [facility] - 05:00:13 AM EDT tobacco tobacco (finding) [facility] Smoking 02/13/2020 Never smoked completed Never smoked [place] [facility] - 05:00:13 AM EDT tobacco tobacco (finding) [facility] Smoking 02/13/2020 Never smoked completed Never smoked [place] [facility] - 05:00:13 AM EDT tobacco tobacco (finding) [facility] Smoking 02/13/2020 Never smoked completed Never smoked [place] [facility] - 05:00:13 AM EDT tobacco tobacco (finding) [facility] Smoking 02/13/2020 Never smoked completed Never smoked [place] [facility] - 05:00:13 AM EDT tobacco tobacco (finding) [facility] (finding) [facility] Smoking 02/13/2020 Never smoked completed Never smoked [place] He alth - 05:00:13 AM EDT tobacco tobacco (finding) [facility]finding[facility] Smoking 02/11/2020 Never smoked completed Never smoked [place] [facility] - 07:46:34 AM EDT tobacco tobacco (finding) [facility] Smoking 02/06/2020 Never smoked completed Never smoked [place] He alth - 06:49:40 AM EDT tobacco tobacco (finding) [facility] (finding) [facility] Smoking 02/06/2020 Never smoked completed Never smoked [place] He alth - 06:49:40 AM EDT tobacco tobacco (finding) [facility] (finding) [facility] Smoking 02/06/2020 Never smoked completed Never smoked [place] He alth - 06:49:40 AM EDT tobacco tobacco (finding) [facility] (finding) [facility] Smoking 02/06/2020 Never Smoker completed Never Smoker eCW3 ([place] 12:00:00 AM EDT [facility] Care) Smoking 02/06/2020 Never Smoker completed Never Smoker eCW3 [facility] Smoking 02/06/2020 Never Smoker completed Never Smoker eCW3 ([place] 12:00:00 AM [facility] Care) Smoking 01/31/2020 Never smoked completed Never smoked [place] [facility] alth - 10:38:00 PM EDT tobacco tobacco (finding) [facility] (finding) [facility] Smoking 01/31/2020 Never smoked completed Never smoked [place] [facility] alth - 10:38:00 PM EDT tobacco tobacco (finding) [facility] (finding) [facility] Smoking 10/08/2019 Never smoked completed Never smoked [place] [facility] al[facility] - 03:46:32 AM EST tobacco tobacco (finding) [facility] (finding) [facility] Smoking 10/08/2019 Never smoked completed Never smoked [place] [facility] alth - 03:46:32 AM EST tobacco tobacco (finding) [facility] Smoking 10/08/2019 Never smoked completed Never smoked [place] [facility] al[facility] - 03:46:32 AM EST tobacco tobacco (finding) [facility] Smoking 10/08/2019 Never smoked completed Never smoked [place] He alth - 03:46:32 AM EST tobacco tobacco (finding) [facility] Smoking 07/06/2019 Never Smoker completed Never Smoker eCW3 ([place] 12:00:00 AM EDT [facility]) Smoking 03/11/2019 Never smoked completed Never smoked [place] He alth - 10:00:42 AM EDT tobacco tobacco (finding) [facility] Smoking 11/26/2018 Never Smoker completed Never Smoker eCW3 ([place] 12:00:00 AM EST [facility]) Never Smoker completed Never Smoker eCW3 ([place] on [facility]) Never Smoker completed Never Smoker eCW3 ([facility] on [facility]) Never Smoker completed Never Smoker eCW3 ([facility] on [facility]) Smoking Never smoked completed Never smoked [place] He alth - tobacco tobacco (finding) [facility] Never Smoker completed Never Smoker eCW3 ([place] [facility]) Smoking Never smoked completed Never smoked [place] [facility] al[facility] - tobacco tobacco (finding) [facility] (finding) [facility] Smoking Never smoked completed Never smoked [place] He alth - tobacco tobacco (finding) [facility] (finding[facility] Smoking Never smoked completed Never smoked [place] [facility] al[facility] - tobacco tobacco (finding) [facility] [place] [facility] Smoking Never smoked completed Never smoked [place] He al[facility] - tobacco tobacco (finding) [place] [facility] Never Smoker completed Never Smoker eCW3 ([facility]) Vital Signs ID Date Data Source UNK Name Value Range Interpretation Code Description Data Source(s) Body mass index 22.2 kg/m2 22.2 kg/m2 [facility] (BMI) [Ratio] [facility] Body temperature 98.5 0 - 200 Normal (applies to 98.5 [degF] [facility] [degF] non-numeric [facility] System results) Body temperature 36.9 Lico 0 - 99.9 Normal (applies to 36.9 Lico [facility] non-numeric [facility] results) Diastolic blood 69 mm[Hg] 0 - 999 Normal (applies to 69 mm[Hg] [facility] pressure non-numeric [facility] results) Systolic blood 127 mm[Hg] 0 - 999 Normal (applies to 127 mm[Hg] [facility] pressure non-numeric [facility] results) Oxygen saturation 100 % 0 - 999 Normal (applies to 100 % [facility] in Arterial blood non-numeric Health System by Pulse oximetry results) Respiratory rate 16 0 - 999 Normal (applies to 16 [facility] non-numeric [facility] results) Heart rate 69 0 - 999 Normal (applies to 69 [facility] non-numeric [facility] results) Body surface area 1.4 m2 1.4 m2 [facility] Derived from [facility] m formula Body weight 51.93 kg 51.93 kg [facility] Body height 154.94 cm 154.94 cm [facility] Body surface area 1.5 m2 1.5 m2 [facility] m formula Body mass index 24.7 kg/m2 24.7 kg/m2 [facility] (BMI) [Ratio] Health Syst em Body weight 59.42 kg 59.42 kg [facility] Body height 154.94 cm 154.94 cm [facility] Body temperature 98.2 0 - 200 Normal (applies to 98.2 [degF] [facility] non-[facility] results) Body temperature 36.7 Lico 0 - 99.9 Normal (applies to 36.7 Lico [facility] non-numeric Health System results) Diastolic blood 100 mm[Hg] 0 - 999 Above upper panic 100 mm[Hg] [facility] pressure limits [facility] System Systolic blood 176 mm[Hg] 0 - 999 Above high normal 176 mm[Hg] [facility] Oxygen saturation 97 % 0 - 999 Normal (applies to 97 % [facility] in Arterial blood non-numeric Health System by Pulse oximetry results) Respiratory rate 17 0 - 999 Normal (applies to 17 [facility] non-numeric [facility] results) Heart rate 95 0 - 999 Normal (applies to 95 [facility] non-numeric [facility] results) Body mass index 24.56 24.56 kg/m2 [facility] (BMI) [Ratio] kg/m2 [facility] Body weight 59 kg 59 kg [facility] Body height 155 cm 155 cm [facility] Body mass index 24.56 24.56 kg/m2 [place] [facility] (BMI) [Ratio] kg/m2 - [facility] Oxygen saturation 100 % 94-100 % Normal (applies to 100 % [facility] in Blood non-numeric - [facility] Postductal by results) [place] Pulse oximetry Medical nter Oxygen therapy Health System He alth [Minimum Data - [place] Set] [facility] Diastolic blood 96 mm[Hg] 60-90 mmHg 96 mm[Hg] Health System H ealth pressure - [facility] Systolic blood 146 mm[Hg] 90-130 Above high normal 146 mm[Hg] [facility] pressure mmHg - [place] [facility] Respiratory rate 18 br/min 14-20 Normal (applies to 18 br/min [facility] br/min non-numeric - [facility] results) [facility] Heart rate 94 bpm 60-100 bpm Normal (applies to 94 bpm [facility] non-numeric - [place] results) [facility] Oral temperature 98.9 96.4-99.1 Normal (applies to 98.9 [degF] [facility] [degF] DegF non-numeric - [place] results) [facility] Oral temperature 97.7 96.4-99.1 Normal (applies to 97.7 [degF] [facility] [degF] DegF non-numeric - [place] results) [facility] Oxygen saturation 96 % 94-100 % Normal (applies to 96 % [facility] in Blood non-numeric - [place] Postductal by results) [place] Pulse oximetry Medical nter Heart rate 74 bpm 60-100 bpm Normal (applies to 74 bpm [facility] non-numeric - [facility] results) [facility] Mean blood 96 mm[Hg] 96 mm[Hg] [facility] pressure by - [place] Noninvasive [facility] Diastolic blood 81 mm[Hg] 60-90 mmHg Normal (applies to 81 mm[Hg] [facility] pressure non-numeric - [place] results) [facility] Systolic blood 128 mm[Hg] 90-130 Normal (applies to 128 mm[Hg] [facility] [facility] pressure mmHg non-numeric - [facility] results) [facility] Oxygen therapy [place] He alth [Minimum Data - [facility] Set] [facility] Oxygen saturation 97 % 94-100 % Normal (applies to 97 % [facility] in Blood non-numeric - [place] Postductal by results) [place] Pulse oximetry [facility] nter Heart rate 79 bpm 60-100 bpm Normal (applies to 79 bpm [facility] Health non-numeric - [facility] results) [facility] Mean blood 78 mm[Hg] 78 mm[Hg] [facility] pressure by - [place] Noninvasive [facility] Diastolic blood 66 mm[Hg] 60-90 mmHg Normal (applies to 66 mm[Hg] [facility] non[facility] - [facility] results) [facility] Systolic blood 103 mm[Hg] 90-130 Normal (applies to 103 mm[Hg] [facility] pressure mmHg non-numeric - [facility] results) [facility] Oral temperature 98.2 96.4-99.1 Normal (applies to 98.2 [degF] [facility] [degF] DegF non-numeric - [facility] results) [facility] Oxygen therapy [place] [facility] al[facility] [Minimum Data - [facility] Set] [facility] [place] Body Weight 47.7 kg 47.7 kg [facility] Usual Weight 64.6 kg 64.6 kg [facility] Body mass index 24.56 24.56 kg/m2 [facility] (BMI) [Ratio] kg/m2 [facility] Daily Weight 59 kg 59 kg [facility] Body height 155 cm 155 cm [facility] Oxygen therapy [place] He alth [Minimum Data - [place] Set] [facility] Respiratory rate 18 br/min 14-20 Normal (applies to 18 br/min [facility] br/min non-numeric - [place] results) [facility] Oral temperature 97.8 96.4-99.1 Normal (applies to 97.8 [degF] [facility] [degF] DegF non-numeric - [place] results) [facility] Oxygen saturation 99 % 94-100 % Normal (applies to 99 % [facility] in Blood non-numeric - [place] Postductal by results) [place] Pulse oximetry Medical nter Heart rate 76 bpm 60-100 bpm Normal (applies to 76 bpm [facility] Health non-numeric - [facility] results) [facility] Mean blood 91 mm[Hg] 91 mm[Hg] [facility] pressure by - [place] Noninvasive [facility] Diastolic blood 77 mm[Hg] 60-90 mmHg Normal (applies to 77 mm[Hg] N [facility] pressure non-numeric - [place] results) [facility] Systolic blood 119 mm[Hg] 90-130 Normal (applies to 119 mm[Hg] [facility] pressure mmHg non-numeric - [facility] results) [facility] Respiratory rate 20 br/min 14-20 Normal (applies to 20 br/min [facility] br/min non-numeric - [place] results) [facility] Respiratory rate 18 br/min 14-20 Normal (applies to 18 br/min [facility] br/min non-numeric - [place] results) [facility] [place] Body Weight 47.7 kg 47.7 kg [facility] Usual Weight 64.6 kg 64.6 kg [facility] Body mass index 24.56 24.56 kg/m2 [facility] (BMI) [Ratio] kg/m2 [facility] Daily Weight 59 kg 59 kg [facility] Body height 155 cm 155 cm [facility] - [facility] Blood pressure [facility] measurement site - [facility] Blood pressure [facility] measurement site - [facility] Body temperature 97.6 97.9-100.6 Below low normal 97.6 [degF] N [facility] - Temporal artery [degF] DegF - [facility] Body mass index 24.56 24.56 kg/m2 [facility] (BMI) [Ratio] kg/m2 [facility] Body weight 59 kg 59 kg [facility] Body height 155 cm 155 cm [facility] Body mass index 24.56 24.56 kg/m2 [facility] (BMI) [Ratio] kg/m2 - [facility] Respiratory rate 18 br/min 14-20 Normal (applies to 18 br/min [facility] br/min non-numeric - [place] results) [facility] Oral temperature 98.3 96.4-99.1 Normal (applies to 98.3 [degF] [facility] [degF] DegF non-numeric - [facility] results) [facility] Oxygen saturation 99 % 94-100 % Normal (applies to 99 % [facility] in Blood non-numeric - [place] Postductal by results) [place] Pulse oximetry Medical nter Heart rate 95 bpm 60-100 bpm Normal (applies to 95 bpm [facility] non-numeric - [place] results) [facility] Blood pressure [facility] measurement site - [facility] Mean blood 85 mm[Hg] 85 mm[Hg] [facility] Health pressure by - [place] Noninvasive [facility] Diastolic blood 74 mm[Hg] 60-90 mmHg Normal (applies to 74 mm[Hg] [facility] Health pressure non-numeric - [place] results) [facility] Systolic blood 109 mm[Hg] 90-130 Normal (applies to 109 mm[Hg] [facility] pressure mmHg non-numeric - [facility] results) [facility] Respiratory rate 20 br/min 14-20 Normal (applies to 20 br/min [facility] br/min non-numeric - [place] results) [facility] Oral temperature 98.5 96.4-99.1 Normal (applies to 98.5 [degF] [facility] [degF] DegF non-numeric - [facility] results) [facility] Oxygen saturation 100 % 94-100 % Normal (applies to 100 % [facility] in Blood non-numeric - [place] Postductal by results) [place] Pulse oximetry Medical Ce nter Heart rate 92 bpm 60-100 bpm Normal (applies to 92 bpm [facility] non-numeric - [facility] results) [facility] Mean blood 111 mm[Hg] 111 mm[Hg] [facility] Health pressure by - [place] Noninvasive [facility] Diastolic blood 92 mm[Hg] 60-90 mmHg 92 mm[Hg] [place] [facility] pressure - [facility] Systolic blood 149 mm[Hg] 90-130 Above high normal 149 mm[Hg] [facility] pressure mmHg - [facility] Respiratory rate 16 br/min 14-20 Normal (applies to 16 br/min [facility] br/min non-numeric - [place] results) [facility] Oral temperature 97.9 96.4-99.1 Normal (applies to 97.9 [degF] [facility] [degF] DegF non-numeric - [place] results) [facility] Oxygen saturation 98 % 94-100 % Normal (applies to 98 % [facility] in Blood non-numeric - [place] Postductal by results) [place] Pulse oximetry [facility] nt Heart rate 92 bpm 60-100 bpm Normal (applies to 92 bpm [facility] e Health non-numeric - [place] results) [facility] Blood pressure [place] [facility] alth measurement site - [facility] Mean blood 80 mm[Hg] 80 mm[Hg] [facility] pressure by - [place] Noninvasive [facility] Diastolic blood 67 mm[Hg] 60-90 mmHg Normal (applies to 67 mm[Hg] [facility] pressure non-numeric - [place] results) [facility] Systolic blood 104 mm[Hg] 90-130 Normal (applies to 104 mm[Hg] [facility] [place] [facility] pressure mmHg non-numeric - [facility] results) [facility] Blood pressure [place] [facility] al[facility] measurement site - [facility] Oxygen therapy [facility] He alth [Minimum Data - [place] Set] [facility] Oxygen therapy [place] He alth [Minimum Data - [facility] Set] [facility] Oxygen therapy [facility] alth [Minimum Data - [place] Set] [facility] Axillary 97.8 95.3-99 Normal (applies to 97.8 [degF] [facility] Health temperature [degF] DegF non-numeric - [facility] results) [facility] [place] Body Weight 50 kg 50 [facility] Usual Weight 65.9 kg 65.9 kg [facility] Body mass index 23.94 23.94 kg/m2 [facility] (BMI) [Ratio] kg/m2 [facility] Daily Weight 59 kg 59 kg [facility] Body height 157 cm 157 cm [facility] Oxygen [facility] Activity [facility] Inhaled oxygen 3 L/min 3 L/min [facility] alth flow rate [facility] Oxygen Therapy [facility] alth Activity [facility] Tympanic membrane 97.1 97.9-100.6 Below low normal 97.1 [degF] [facility] temperature [degF] DegF [facility] Heart rate 95 bpm 60-100 bpm Normal (applies to 95 bpm [facility] Cardiac apex by [facility] by [facility] Body height 157 cm 157 cm [facility] FIO2 21 % 21 % [facility] BSA Measured [id number] 1.981016 m2 [address] Body mass index 23.94 23.94 kg/m2 [facility] (BMI) [Ratio] kg/m2 [facility] Body weight 59 kg 59 kg [facility] Body height 157 cm 157 cm [facility] Body mass index 23.94 23.94 kg/m2 [facility] (BMI) [Ratio] kg/m2 [facility] Body weight 59.0 kg 59.0 kg [facility] Body mass index 23.94 23.94 kg/m2 [facility] (BMI) [Ratio] kg/m2 [facility] Mean blood 83 mm[Hg] 83 mm[Hg] [facility] pressure by - [facility] Oxygen therapy [facility] alth [Minimum Data - [place] Set] [facility] Diastolic blood 66 mm[Hg] 60-90 mmHg Normal (applies to 66 mm[Hg] [facility] pressure non-numeric - [place] results) [facility] Systolic blood 117 mm[Hg] 90-130 Normal (applies to 117 mm[Hg] [facility] pressure mmHg non-numeric - [facility] results) [facility] Oxygen saturation 98 % 94-100 % Normal (applies to 98 % [facility] in Blood non-numeric - [place] Postductal by results) [place] Pulse oximetry Medical Ce nter Respiratory rate 25 br/min 14-20 Above high normal 25 br/min [facility] br/min - [facility] Heart rate 88 bpm 60-100 bpm Normal (applies to 88 bpm [facility] non-numeric - [facility] results) [facility] Oxygen therapy Luke Hidalgo alth [Minimum Data - [facility] Set] [facility] Oxygen saturation 93 % 94-100 % Below low normal 93 % [facility] in Blood - [place] Postductal by [place] Pulse oximetry Medical Ce nter Respiratory rate 17 br/min 14-20 Normal (applies to 17 br/min [facility] br/min non-numeric - [facility] results) [facility] Heart rate 81 bpm 60-100 bpm Normal (applies to 81 bpm [facility] non-numeric - [facility] results) [facility] Oxygen therapy Luke Hidalgo alth [Minimum Data - [facility] Set] [facility] Oral temperature 98.5 96.4-99.1 Normal (applies to 98.5 [degF] [facility] [degF] DegF non-numeric - [facility] results) [facility] Oxygen saturation 95 % 94-100 % Normal (applies to 95 % [facility] in Blood non-numeric - [place] Postductal by results) [place] Pulse oximetry Medical Ce nter Respiratory rate 16 br/min 14-20 Normal (applies to 16 br/min [facility] br/min non-numeric - [place] results) [facility] Heart rate 77 bpm 60-100 bpm Normal (applies to 77 bpm [facility] non-numeric - [place] results) [facility] Mean blood 77 mm[Hg] 77 mm[Hg] [facility] pressure by - [place] Noninvasive [facility] Blood pressure [facility] measurement site - [facility] Diastolic blood 64 mm[Hg] 60-90 mmHg Normal (applies to 64 mm[Hg] [facility] pressure non-numeric - [place] results) [facility] Systolic blood 102 mm[Hg] 90-130 Normal (applies to 102 mm[Hg] [facility] [place] [facility] pressure mmHg non-numeric - [place] results) [facility] Mean blood 88 mm[Hg] 88 mm[Hg] [place] [facility] pressure by - [place] Noninvasive [facility] Blood pressure [facility] measurement [facility] - [facility] Diastolic blood 75 mm[Hg] 60-90 mmHg Normal (applies to 75 mm[Hg] [facility] pressure non-numeric - [place] results) [facility] Systolic blood 114 mm[Hg] 90-130 Normal (applies to 114 mm[Hg] [facility] pressure mmHg non-numeric - [place] results) [facility] Blood pressure [facility] measurement site - [facility] Body mass index 24.79 24.79 kg/m2 [facility] (BMI) [Ratio] kg/m2 - [facility] Body weight 59.548 kg 59.548 kg [facility] Measured - [facility] Body height 155 cm 155 cm [facility] Body mass index 24.79 24.79 kg/m2 [facility] (BMI) [Ratio] kg/m2 - [facility] Oral temperature 98.6 96.4-99.1 Normal (applies to 98.6 [degF] [facility] [degF] DegF non-numeric - [place] results) [facility] Oxygen saturation 100 % 94-100 % Normal (applies to 100 % [facility] in Blood non-numeric - [place] Postductal by results) [place] Pulse oximetry [facility] nt Diastolic blood 82 mm[Hg] 60-90 mmHg Normal (applies to 82 mm[Hg] [facility] pressure non-numeric - [place] results) [facility] Systolic blood 142 mm[Hg] 90-130 Above high normal 142 mm[Hg] [facility] pressure mmHg - [facility] Respiratory rate 18 br/min 14-20 Normal (applies to 18 br/min [facility] br/min non-numeric - [place] results) [facility] Heart rate 84 bpm 60-100 bpm Normal (applies to 84 bpm [facility] e Health non-numeric - [place] results) [facility] Oral temperature 98.4 96.4-99.1 Normal (applies to 98.4 [degF] [facility] [degF] DegF non-numeric - [place] results) [facility] Body height 155 cm 155 cm [facility] Body mass index 24.77 24.77 kg/m2 [facility] (BMI) [Ratio] kg/m2 [facility] Oxygen saturation 100 % 94-100 % Normal (applies to 100 % [facility] in Blood non-numeric - [place] Postductal by results) [place] [facility] Ce [facility]ter Oxygen therapy [facility] alth [Minimum Data - Art[place] Set] [facility] Diastolic blood 88 mm[Hg] 60-90 mmHg Normal (applies to 88 mm[Hg] [facility] pressure non-numeric - [place] results) [facility] Systolic blood 150 mm[Hg] 90-130 Above high normal 150 mm[Hg] [facility] ance Health pressure mmHg - [facility] Respiratory rate 18 br/min 14-20 Normal (applies to 18 [facility] non-numeric - [place] results) [facility] Heart rate 82 bpm 60-100 bpm Normal (applies to 82 bpm [facility] e Health non-numeric - [place] results) [facility] Oral temperature 98.6 96.4-99.1 Normal (applies to 98.6 [degF] [facility] [[facility]] DegF non-numeric - Arturo results) [facility] Body mass index 24.77 24.77 kg/m2 [facility] (BMI) [Ratio] kg/m2 [facility] Body weight 59.5 kg 59.5 kg [facility] Measured [facility] Mean blood 109 mm[Hg] 109 mm[Hg] [facility] pressure by - [place] Noninvasive [facility] Diastolic blood 92 mm[Hg] 60-90 mmHg 92 mm[Hg] [facility] ealt pressure - [facility] Systolic blood 142 mm[Hg] 90-130 Above high normal 142 mm[Hg] v ance Health pressure mmHg - [facility] Oxygen saturation 100 % 94-100 % Normal (applies to 100 % [facility] in Blood non-numeric - [place] Postductal by results) [place] [facility] Respiratory rate 19 br/min 14-20 Normal (applies to 19 br/min [facility] br/min non-numeric - [place] results) [facility] Heart rate 101 bpm 60-100 bpm Above high normal 101 bpm [facility] Body mass index 24.37 24.37 kg/m2 [facility] (BMI) [Ratio] kg/m2 [facility] Body weight 60.06 kg 60.06 kg [facility] Measured [facility] Body height 157 cm 157 cm [facility] Body mass index 24.37 24.37 kg/m2 [facility] (BMI) [Ratio] kg/m2 [facility] Oxygen saturation 100 % 94-100 % Normal (applies to 100 % [facility] in Blood non-numeric - [place] Postductal by results) [place] [facility] Oxygen therapy [facility] alth [Minimum Data - [place] Set] [facility] Diastolic blood 126 mm[Hg] 60-90 mmHg 126 mm[Hg] [facility] ealth pressure - [facility] Systolic blood 175 mm[Hg] 90-130 Above high normal 175 mm[Hg] [facility] pressure mmHg - [facility] Respiratory rate 24 br/min 14-20 Above high normal 24 br/min [facility] br/min - [facility] Heart rate 108 bpm 60-100 bpm Above high normal 108 bpm [facility] Oral temperature 98.3 96.4-99.1 Normal (applies to 98.3 [degF] [facility] [degF] DegF non-numeric - [place] results) [facility] Diastolic blood 73 mm[Hg] 60-90 mmHg Normal (applies to 73 mm[Hg] [facility] pressure non-numeric - [place] results) [facility] Systolic blood 111 mm[Hg] 90-130 Normal (applies to 111 mm[Hg] [facility] pressure mmHg non-numeric - [place] results) [facility] Oxygen therapy [facility] [Minimum Data - [place] Set] [facility] Oxygen saturation 100 % 94-100 % Normal (applies to 100 % [facility] in Blood non-numeric - [place] Postductal by results) [place] [facility] n[facility] Respiratory rate 18 br/min 14-20 Normal (applies to 18 br/min [facility] br/min non-numeric - [place] results) [facility] Heart rate 94 bpm 60-100 bpm Normal (applies to 94 bpm [facility] non-numeric - [place] results) [facility] Oral temperature 98.1 96.4-99.1 Normal (applies to 98.1 [degF] [facility] [degF] DegF non-numeric - [place] results) [facility] Mean blood 101 mm[Hg] 101 mm[Hg] [facility] pressure by - [place] Noninvasive [facility] Diastolic blood 86 mm[Hg] 60-90 mmHg Normal (applies to 86 mm[Hg] [facility] pressure non-numeric - [place] results) [facility] Systolic blood 131 mm[Hg] 90-130 Above high normal 131 mm[Hg] [facility] pressure mmHg - [place] [facility] Oxygen saturation 97 % 94-100 % Normal (applies to 97 % [facility] in Blood non-numeric - [place] Postductal by results) [place] [facility] Respiratory rate 29 br/min 14-20 Above high normal 29 br/min [facility] br/min - [place] [facility] Heart rate 88 bpm 60-100 bpm Normal (applies to 88 bpm [facility] non-numeric - [place] results) [facility] Body mass index 24.98 24.98 kg/m2 [facility] (BMI) [Ratio] kg/m2 - [facility] Body weight 60.003 kg 60.003 kg [facility] Measured - [facility] Body height 155 cm 155 cm [facility] Body mass index 24.98 24.98 kg/m2 [facility] (BMI) [Ratio] kg/m2 - [facility] Oxygen saturation 99 % 94-100 % Normal (applies to 99 % [facility] in Blood non-numeric - [place] Postductal by results) [place] [facility] Oxygen therapy [facility] alth [Minimum Data - Arturo Set] [facility] Diastolic blood 80 mm[Hg] 60-90 mmHg Normal (applies to 80 mm[Hg] [facility] pressure non-numeric - [place] results) [facility] Systolic blood 169 mm[Hg] 90-130 Above high normal 169 mm[Hg] [facility] pressure mmHg - [facility] Respiratory rate 28 br/min 14-20 Above high normal 28 br/min [facility] br/min - [facility] Heart rate 102 bpm 60-100 bpm Above high normal 102 bpm [facility] Oral temperature 98.2 96.4-99.1 Normal (applies to 98.2 [degF] [facility] [degF] DegF non-numeric - [place] results) [facility] Mean blood 97 mm[Hg] 97 mm[Hg] [facility] pressure by - [place] Noninvasive [facility] Oxygen saturation 97 % 94-100 % Normal (applies to 97 % [facility] in Blood non-numeric - [place] Postductal by results) [place] [facility] Diastolic blood 73 mm[Hg] 60-90 mmHg Normal (applies to 73 mm[Hg] [facility] pressure non-numeric - [place] results) [facility] Systolic blood 144 mm[Hg] 90-130 Above high normal 144 mm[Hg] [facility] pressure mmHg - [facility] Respiratory rate 18 br/min 14-20 Normal (applies to 18 br/min [facility] br/min non-numeric - [place] results) [facility] Heart rate 72 bpm 60-100 bpm Normal (applies to 72 bpm [facility] non-numeric - [place] results) [facility] Oral temperature 97.9 96.4-99.1 Normal (applies to 97.9 [degF] [facility] [degF] DegF non-numeric - [place] results) [facility] Mean blood 83 mm[Hg] 83 mm[Hg] [facility] pressure by - [place] Noninvasive [facility] Heart rate 77 bpm 60-100 bpm Normal (applies to 77 bpm [facility] non-numeric - [place] results) [facility] Respiratory rate 18 br/min 14-20 Normal (applies to 18 br/min [facility] br/min non-numeric - [place] results) [facility] Oral temperature 98 [degF] 96.4-99.1 Normal (applies to 98 [degF] [facility] DegF non-numeric - [place] results) [facility] Oxygen saturation 99 % 94-100 % Normal (applies to 99 % [facility] in Blood non-numeric - [place] Postductal by results) [place] Pulse oximetry [facility] Diastolic blood 67 mm[Hg] 60-90 mmHg Normal (applies to 67 mm[Hg] [facility] pressure non-numeric - [place] results) [facility] Systolic blood 116 mm[Hg] 90-130 Normal (applies to 116 mm[Hg] [facility] pressure mmHg non-numeric - [place] results) [facility] Heart rate 87 bpm 60-100 bpm Normal (applies to 87 bpm [facility] non-numeric - [place] results) [facility] Respiratory rate 19 br/min 14-20 Normal (applies to 19 br/min [facility] br/min non-numeric - [place] results) [facility] Oral temperature 98.6 96.4-99.1 Normal (applies to 98.6 [degF] [facility] [degF] DegF non-numeric - [place] results) [facility] Oxygen saturation 98 % 94-100 % Normal (applies to 98 % [facility] in Blood non-numeric - [place] Postductal by results) [place] [facility] Mean blood 104 mm[Hg] 104 mm[Hg] [facility] pressure by - [place] Noninvasive [facility] Diastolic blood 89 mm[Hg] 60-90 mmHg Normal (applies to 89 mm[Hg] [facility] pressure non-numeric - [place] results) [facility] Systolic blood 135 mm[Hg] 90-130 Above high normal 135 mm[Hg] [facility] pressure mmHg - [facility] Body mass index 24.97 24.97 kg/m2 [facility] (BMI) [Ratio] kg/m2 - [facility] Body weight 60 kg 60 kg [facility] Measured - [facility] Body height 155 cm 155 cm [facility] h - [facility] Body mass index 24.97 24.97 kg/m2 [facility] (BMI) [Ratio] kg/m2 - [facility] Mean blood 88 mm[Hg] 88 mm[Hg] [facility] pressure by - [place] Noninvasive [facility] Oxygen therapy [facility] [Minimum Data - [place] Set] [facility] Oxygen saturation 97 % 94-100 % Normal (applies to 97 % [facility] in Blood non-numeric - [place] Postductal by results) [place] [facility] Diastolic blood 79 mm[Hg] 60-90 mmHg Normal (applies to 79 mm[Hg] [facility] pressure non-numeric - [place] results) [facility] Systolic blood 106 mm[Hg] 90-130 Normal (applies to 106 mm[Hg] [facility] pressure mmHg non-numeric - [place] results) [facility] Respiratory rate 24 br/min 14-20 Above high normal 24 br/min [facility] br/min - [facility] Heart rate 69 bpm 60-100 bpm Normal (applies to 69 bpm [facility] non-numeric - [place] results) [facility] Oxygen therapy [facility] [Minimum Data - [place] Set] [facility] Mean blood 89 mm[Hg] 89 mm[Hg] [facility] pressure by - [place] Noninvasive [facility] Oxygen saturation 98 % 94-100 % Normal (applies to 98 % [facility] in Blood non-numeric - [place] Postductal by results) [place] [facility] Diastolic blood 70 mm[Hg] 60-90 mmHg Normal (applies to 70 mm[Hg] [facility] pressure non-numeric - [place] results) [facility] Systolic blood 128 mm[Hg] 90-130 Normal (applies to 128 mm[Hg] [facility] pressure mmHg non-numeric - Arturo results) [facility] Respiratory rate 22 br/min 14-20 Above high normal 22 br/min [facility] br/min - [facility] Heart rate 74 bpm 60-100 bpm Normal (applies to 74 bpm [facility] e Health non-numeric - [place] results) [facility] Body mass index 22.04 22.04 kg/m2 [facility] (BMI) [Ratio] kg/m2 [facility] Body weight 60 kg 60 kg [facility] Measured [facility] Body height 165 cm 165 cm [facility] Body mass index 22.04 22.04 kg/m2 [facility] (BMI) [Ratio] kg/m2 [facility] Oxygen saturation 100 % 94-100 % Normal (applies to 100 % [facility] in Blood non-numeric - [place] Postductal by results) [place] [facility] Oxygen therapy [facility] alth [Minimum Data - [place] Set] [facility] Diastolic blood 92 mm[Hg] 60-90 mmHg 92 mm[Hg] [facility] ealth pressure [facility] Systolic blood 164 mm[Hg] 90-130 Above high normal 164 mm[Hg] [facility] pressure mmHg - [facility] Respiratory rate 16 br/min 14-20 Normal (applies to 16 br/min [facility] br/min non-numeric - [place] results) [facility] Heart rate 109 bpm 60-100 bpm Above high normal 109 bpm [facility] Oral temperature 98 [degF] 96.4-99.1 Normal (applies to 98 [degF] [facility] DegF non-numeric - [place] results) [facility] Mean blood 116 mm[Hg] 116 mm[Hg] [facility] pressure by - [place] Noninvasive [facility] Oral temperature 97.8 96.4-99.1 Normal (applies to 97.8 [degF] [facility] [degF] DegF non-numeric - [place] results) [facility] Respiratory rate 16 br/min 14-20 Normal (applies to 16 br/min [facility] br/min non-numeric - [place] results) [facility] Oxygen therapy [facility] [Minimum Data - [place] Set] [facility] Mean blood 92 mm[Hg] 92 mm[Hg] [facility] pressure by - [place] Noninvasive [facility] Heart rate 74 bpm 60-100 bpm Normal (applies to 74 bpm [facility] non-numeric - [place] results) [facility] Diastolic blood 74 mm[Hg] 60-90 mmHg Normal (applies to 74 mm[Hg] [facility] pressure non-numeric - [place] results) [facility] Systolic blood 128 mm[Hg] 90-130 Normal (applies to 128 mm[Hg] [facility] pressure mmHg non-numeric - Arturo results) [facility] Oxygen saturation 98 % 94-100 % Normal (applies to 98 % [facility] in Blood non-numeric - [place] Postductal by results) [place] [facility] Oxygen therapy [facility] [Minimum Data - [place] Set] [facility] Oxygen saturation 100 % 94-100 % Normal (applies to 100 % [facility] in Blood non-numeric - [place] Postductal by results) [place] [facility] Mean blood 98 mm[Hg] 98 mm[Hg] [facility] pressure by - [place] Noninvasive [facility] Diastolic blood 77 mm[Hg] 60-90 mmHg Normal (applies to 77 mm[Hg] [facility] pressure non-numeric - [place] results) [facility] Systolic blood 139 mm[Hg] 90-130 Above high normal 139 mm[Hg] [facility] pressure mmHg - [place] [facility] Oxygen saturation 98 % 94-100 % Normal (applies to 98 % [facility] in Blood non-numeric - [place] Postductal by results) [place] [facility] Oxygen therapy [facility] alth [Minimum Data - Arturo Set] [facility] Respiratory rate 20 br/min 14-20 Normal (applies to 20 br/min [facility] br/min non-numeric - [place] results) [facility] Heart rate 81 bpm 60-100 bpm Normal (applies to 81 bpm [facility] e Health non-numeric - [place] results) [facility] Vital Signs Dr. Joseluis Huggins aware [facility] Reported To aware of of BP as per - [place]uro BP as per pt may be DC'c [place] [facility] Mean blood 116 mm[Hg] 116 mm[Hg] [facility] pressure by - [place] Noninvasive [facility] Heart rate 72 bpm 60-100 bpm Normal (applies to 72 bpm [facility] [employer] [facility] non-numeric - [place] results) [facility] Oral temperature 97.7 96.4-99.1 Normal (applies to 97.7 [degF] [facility] [degF] DegF non-numeric - [place] results) [facility] Respiratory rate 20 br/min 14-20 Normal (applies to 20 br/min [facility] br/min non-numeric - [place] results) [facility] Diastolic blood 93 mm[Hg] 60-90 mmHg 93 mm[Hg] [facility] ealth pressure - [facility] Systolic blood 161 mm[Hg] 90-130 Above high normal 161 mm[Hg] [facility] pressure mmHg - [facility] Oral temperature 98.6 96.4-99.1 Normal (applies to 98.6 [degF] [facility] [degF] DegF non-numeric - [place] results) [facility] Body mass index 25.81 25.81 kg/m2 [facility] (BMI) [Ratio] kg/m2 - [facility] Body weight 62 kg 62 kg [facility] Measured - [facility] Body height 155 cm 155 cm [facility] - [facility] Body mass index 25.81 25.81 kg/m2 [facility] (BMI) [Ratio] kg/m2 [facility] Respiratory rate 18 br/min 14-20 Normal (applies to 18 br/min [facility] br/min non-numeric - [place] results) [facility] Oral temperature 97.4 96.4-99.1 Normal (applies to 97.4 [degF] [facility] [degF] DegF non-numeric - [place] results) [facility] Oxygen saturation 97 % 94-100 % Normal (applies to 97 % [facility] Blood non-numeric - [place] Postductal by results) [place] [facility] Heart rate 67 bpm 60-100 bpm Normal (applies to 67 bpm [facility] Health non-numeric - [place] results) [facility] Mean blood 106 mm[Hg] 106 mm[Hg] [facility] pressure by - [place] Noninvasive [facility] Diastolic blood 84 mm[Hg] 60-90 mmHg Normal (applies to 84 mm[Hg] [facility] pressure non-numeric - [place] results) [facility] Systolic blood 149 mm[Hg] 90-130 Above high normal 149 mm[Hg] [facility] pressure mmHg - [facility] Body mass index 26.49 26.49 kg/m2 [facility] (BMI) [Ratio] kg/m2 [facility] Body weight 63.64 kg 63.64 kg [facility] Measured [facility] Body height 155 cm 155 cm [facility] Body mass index 26.49 26.49 kg/m2 [facility] (BMI) [Ratio] kg/m2 [facility] Oxygen saturation 100 % 94-100 % Normal (applies to 100 % [facility] in Blood non-numeric - [place] Postductal by results) [place] [facility] Oxygen therapy [facility] [Minimum Data - [place] Set] [facility] Diastolic blood 94 mm[Hg] 60-90 mmHg 94 mm[Hg] [facility] ealth pressure - [facility] Systolic blood 153 mm[Hg] 90-130 Above high normal 153 mm[Hg] [facility] pressure mmHg - [place] [facility] Respiratory rate 16 br/min 14-20 Normal (applies to 16 br/min [facility] br/min non-numeric - [place] results) [facility] Heart rate 81 bpm 60-100 bpm Normal (applies to 81 bpm [facility] non-numeric - [place] results) [facility] Diastolic blood 81 mm[Hg] 81 mm[Hg] eCW3 ([facility]) Systolic blood 146 mm[Hg] 146 mm[Hg] eCW3 ([facility]) Body temperature 97.8 97.8 [degF] eCW3 ([facility] [degF] [facility]) Body mass index 26.70 26.70 kg/m2 eCW3 ([facility] (BMI) [Ratio] kg/m2 [facility]) Body weight 146 146 [lb_av] eCW3 ([place] [lb_av] [facility]) Body height 62 [in_i] 62 [in_i] eCW3 ([facility]) Diastolic blood 82 mm[Hg] 82 mm[Hg] eCW3 ([facility]) Systolic blood 135 mm[Hg] 135 mm[Hg] eCW3 ([facility]) Body temperature 97.8 97.8 [degF] eCW3 ([facility] [degF] [facility]) Heart rate 18 /min 18 /min eCW3 ([facility]) Body mass index 25.60 25.60 kg/m2 eCW3 ([facility] (BMI) [Ratio] kg/m2 [facility]) Body weight 140 140 [lb_av] eCW3 ([place] [lb_av] [facility]) Body height 62 [in_i] 62 [in_i] eCW3 ([facility]) Diastolic blood 81 mm[Hg] 81 mm[Hg] eCW3 ([facility]) Systolic blood 139 mm[Hg] 139 mm[Hg] eCW3 ([facility] pressure [facility]) Body height 62 [in_i] 62 [in_i] eCW3 ([facility]) Body weight 135 135 [lb_av] eCW3 ([place] [lb_av] [facility]) Body mass index 24.69 24.69 kg/m2 eCW3 ([facility] (BMI) [Ratio] kg/m2 [facility]) Heart rate 18 /min 18 /min eCW3 ([facility]) Body temperature 97.8 97.8 [degF] eCW3 ([facility] [deg] [facility]) Systolic blood 132 mm[Hg] 132 mm[Hg] eCW3 ([facility]) Diastolic blood 76 mm[Hg] 76 mm[Hg] eCW3 ([facility]) Oxygen therapy [facility] [Minimum Data - [place] Set] [facility] Oral temperature 98.2 96.4-99.1 Normal (applies to 98.2 [degF] [facility] [degF] DegF non-numeric - [place] results) [facility] Blood pressure [facility] measurement site - [facility] Systolic blood 118 mm[Hg] 90-130 Normal (applies to 118 mm[Hg] [facility] pressure mmHg non-numeric - [place] results) [facility] Diastolic blood 76 mm[Hg] 60-90 mmHg Normal (applies to 76 mm[Hg] [facility] pressure non-numeric - [place] results) [facility] Oxygen saturation 98 % 94-100 % Normal (applies to 98 % [facility] in Blood non-numeric - [place] Postductal by results) [place] P[facility] oxim[facility] Medical nter Heart rate 72 bpm 60-100 bpm Normal (applies to 72 bpm [facility] non-numeric - Arturo results) [facility] Daily Weight 60.2 kg 60.2 kg [facility] Oxygen saturation 96 % 94-100 % Normal (applies to 96 % [facility] in Blood non-numeric - [place] Postductal by results) [place] Pulse oxim[facility] Ce [facility] Blood pressure [facility] measurement site [facility] Oxygen therapy [facility] [Minimum Data - [place] Set] [facility] Oral temperature 98.2 96.4-99.1 Normal (applies to 98.2 [degF] [facility] [degF] DegF non-numeric - Arturo results) [facility] Heart rate 65 bpm 60-100 bpm Normal (applies to 65 bpm [facility] e Health non-numeric - [place] results) [facility] Respiratory rate 18 br/min 14-20 Normal (applies to 18 br/min [facility] br/min non-numeric - [place] results) [facility] Systolic blood 113 mm[Hg] 90-130 Normal (applies to 113 mm[Hg] [facility] Health pressure mmHg non-numeric - [place] results) [facility] Diastolic blood 72 mm[Hg] 60-90 mmHg Normal (applies to 72 mm[Hg] [facility] pressure non-numeric - [place] results) [facility] Mean blood 86 mm[Hg] 86 mm[Hg] [place] pressure by - [place] Noninvasive [facility] Mean blood 89 mm[Hg] 89 mm[Hg] [facility] pressure by - [place] Noninvasive [facility] Systolic blood 117 mm[Hg] 90-130 Normal (applies to 117 mm[Hg] [facility] Health pressure mmHg non-numeric - [place] results) [facility] Diastolic blood 75 mm[Hg] 60-90 mmHg Normal (applies to 75 mm[Hg] [facility] pressure non-numeric - [place] results) [facility] Blood pressure [facility] measurement site - Arturo [facility] Oxygen saturation 95 % 94-100 % Normal (applies to 95 % [facility] in Blood non-numeric - [place] Postductal by results) [place] [facility] Heart rate 59 bpm 60-100 bpm Below low normal 59 bpm [facility] [place] [facility] Respiratory rate 18 br/min 14-20 Normal (applies to 18 br/min [facility] br/min non-numeric - [place] results) [facility] Oral temperature 97.8 96.4-99.1 Normal (applies to 97.8 [degF] [facility] [degF] DegF non-numeric - [place]uro results) [facility] Oxygen therapy [facility] [Minimum Data - [place] Set] [facility] Respiratory rate 18 br/min 14-20 Normal (applies to 18 br/min [facility] br/min non-numeric - [place] results) [facility] Mean blood 91 mm[Hg] 91 mm[Hg] [facility] pressure by [facility] Daily Weight 60.8 kg 60.8 kg [facility] Body height 155 cm 155 cm [facility] [place] Body Weight 47.7 kg 47.7 kg [facility] Daily Weight 60.3 kg 60.3 kg [facility] Usual Weight 67.2 kg 67.2 kg [facility] Body mass index 25.1 kg/m2 25.1 kg/m2 [facility] (BMI) [Ratio] [facility] [place] Body Weight 47.7 kg 47.7 kg [facility] Usual Weight 67.2 kg 67.2 kg [facility] Body height 155 cm 155 cm [facility] Body mass index 24.77 24.77 kg/m2 [facility] (BMI) [Ratio] kg/m2 [facility] Body weight 61.5 kg 61.5 kg [facility] Body height 155 cm 155 cm [facility] Inhaled oxygen 2 L/min 2 L/min [facility] alth flow rate [facility] Inhaled oxygen 2 L/min 2 L/min [facility] alth flow rate [facility] Body temperature 98.9 97.9-100.6 Normal (applies to 98.9 [degF] [facility] - Temporal artery [degF] DegF non-numeric - [place] ar results) [facility] Body temperature 99.0 97.9-100.6 Normal (applies to 99.0 [degF] [facility] - Temporal artery [degF] DegF non-numeric - [place] ar results) [facility] Body mass index 22.52 22.52 kg/m2 [facility] (BMI) [Ratio] kg/m2 [facility] Body weight 61.3 kg 61.3 kg [facility] Body mass index 22.52 22.52 kg/m2 [facility] (BMI) [Ratio] kg/m2 [facility] Body temperature 97.9 97.9 [degF] eCW3 ( [place] [degF] [facility]) Systolic blood 120 mm[Hg] 120 mm[Hg] eCW3 ([facility] on [facility]) Diastolic blood 78 mm[Hg] 78 mm[Hg] eCW3 ([facility]) Body height 62 [in_i] 62 [in_i] eCW3 ([facility]) Body weight 136 136 [lb_av] eCW3 ([place] [lb_av] [facility]) Body mass index 24.87 24.87 kg/m2 [facility] ([facility] [Ratio] kg/m2 [facility]) Oral temperature 97.4 96.4-99.1 Normal (applies to 97.4 [degF] [facility] [degF] DegF non-numeric - [place] results) [facility] Respiratory rate 18 br/min 14-20 Normal (applies to 18 br/min [facility] br/min non-numeric - [place] results) [facility] Systolic blood 136 mm[Hg] 90-130 Above high normal 136 mm[Hg] [facility] ance [facility] pressure mmHg - [place] [facility] Diastolic blood 89 mm[Hg] 60-90 mmHg Normal (applies to 89 mm[Hg] [facility] pressure non-numeric - [place] results) [facility] Heart rate 76 bpm 60-100 bpm Normal (applies to 76 bpm [facility] non-numeric - [place] results) [facility] Oxygen saturation 98 % 94-100 % Normal (applies to 98 % [facility] in Blood non-numeric - [place] Postductal by results) [place] [facility] n[facility] Mean blood 105 mm[Hg] 105 mm[Hg] [facility] pressure by - [place] Noninvasive [facility] Oxygen therapy [facility] alth [Minimum Data - [place] Set] [facility] Body mass index 24.97 24.97 kg/m2 [facility] (BMI) [Ratio] kg/m2 - [facility] Body weight 60 kg 60 kg [facility] Body height 155 cm 155 cm [facility] Body mass index 24.97 24.97 kg/m2 [facility] (BMI) [Ratio] kg/m2 - [facility] Oxygen saturation 96 % 94-100 % Normal (applies to 96 % [facility] in Blood non-numeric - [place] Postductal by results) [place] [facility] Oral temperature 98 [degF] 96.4-99.1 Normal (applies to 98 [degF] [facility] DegF non-numeric - [place] results) [facility] Oxygen therapy [facility] System [facility] alth [Minimum Data - [place] Set] [facility] Systolic blood 166 mm[Hg] 90-130 Above high normal 166 mm[Hg] [facility] Health pressure mmHg - [facility] Diastolic blood 80 mm[Hg] 60-90 mmHg Normal (applies to 80 mm[Hg] [facility] pressure non-numeric - [place] results) [facility] Respiratory rate 16 br/min 14-20 Normal (applies to 16 br/min [facility] br/min non-numeric - [place] results) [facility] Heart rate 87 bpm 60-100 bpm Normal (applies to 87 bpm [facility] non-numeric - [place] results) [facility] Heart rate 74 bpm 60-100 bpm Normal (applies to 74 bpm [facility] non-numeric - [place] results) [facility] Respiratory rate 20 br/min 14-20 Normal (applies to 20 br/min [facility] br/min non-numeric - [place] results) [facility] Oxygen saturation 99 % 94-100 % Normal (applies to 99 % [facility] in Blood non-numeric - [place] Postductal by results) [place] [facility] Oral temperature 98.0 96.4-99.1 Normal (applies to 98.0 [degF] [facility] [degF] DegF non-numeric - [place] results) [facility] Systolic blood 129 mm[Hg] 90-130 Normal (applies to 129 mm[Hg] [facility] pressure mmHg non-numeric - [place] results) [facility] Diastolic blood 77 mm[Hg] 60-90 mmHg Normal (applies to 77 mm[Hg] [facility] pressure non-numeric - [place] results) [facility] Heart rate 74 bpm 60-100 bpm Normal (applies to 74 bpm [facility] non-numeric - [place] results) [facility] Mean blood 94 mm[Hg] 94 mm[Hg] [facility] pressure by - [place] Noninvasive [facility] Oxygen saturation 97 % 94-100 % Normal (applies to 97 % [facility] in Blood non-numeric - [place] Postductal by results) [place] [facility] Body weight 62 kg 62 kg [facility] Measured - [place] [facility] Body mass index 25.81 25.81 kg/m2 [facility] (BMI) [Ratio] kg/m2 [facility] Heart rate 88 bpm 60-100 bpm Normal (applies to 88 bpm [facility] e Health Peripheral artery non-numeric - [place] ar by palpation results) [facility] Systolic blood 149 mm[Hg] 90-130 Above high normal 149 mm[Hg] [facility] pressure mmHg - [place] [facility] Diastolic blood 79 mm[Hg] 60-90 mmHg Normal (applies to 79 mm[Hg] [facility] pressure non-numeric - [place] results) [facility] Oxygen therapy [facility] alth [Minimum Data - [place] Set] [facility] Oxygen saturation 98 % 94-100 % Normal (applies to 98 % [facility] in Blood non-numeric - [place] Postductal by results) [place] [facility] Body mass index 25.81 25.81 kg/m2 [facility] (BMI) [Ratio] kg/m2 - [facility] Body height 155 cm 155 cm [facility] - [place] [facility] Oral temperature 97.9 96.4-99.1 Normal (applies to 97.9 [degF] [facility] [[facility]] DegF non-numeric - [place] results) [facility] Respiratory rate 28 br/min 14-20 Above high normal 28 br/min [facility] br/min [facility] Patient Treatment Plan of Care Planned Activity Planned Date Details Description Data Source (s) No data available for this [facility] No data available for this [facility] No data available for this [facility] No data available for this [facility] No data available for this [facility] No data available for this [facility] No data available for this [facility] No data available for this [facility] No data available for this [facility] No data available for this [facility] No data available for this [facility] No data available for this [facility] No data available for this [facility] No data available for this [facility] No data available for this [facility] No data available for this [facility] No data available for this [facility] No data available for this [facility] No data available for this [facility] No data available for this [facility] No data available for this [facility] No data available for this [facility] No data available for this [facility] No data available for this [facility] No data available for this [facility] No data available for this [facility] No data available for this [facility] No data available for this [facility] No data available for this [facility] No data available for this [facility] Prednisone 20 MG Oral Tablet 03/14/2020 [facility] 01:35:56 PM EDT System Ondansetron 4 MG Oral Tablet 03/14/2020 [facility] [Zofran] 01:23:00 PM EDT System Prednisone 20 MG Oral Tablet 03/14/2020 [facility] 01:21:09 PM EDT System 24 HR Diltiazem Hydrochloride 03/14/2020 [facility] 360 MG Extended Release Oral 01:11:05 PM EDT System Capsule buspirone hydrochloride 15 MG 03/14/2020 [facility] Oral Tablet 01:10:15 PM EDT System Loratadine 1 MG/ML Oral 02/26/2020 [facility] - Solution 05:24:00 AM EDT [facility] potassium chloride 20 mEq/15 02/26/2020 [facility] - mL oral liquid 05:24:00 AM EDT [facility] Diltiazem Hydrochloride 120 02/25/2020 [facility] - MG Oral Tablet 12:10:00 PM EDT [facility] pantoprazole 40 MG Delayed 02/24/2020 [facility] Health - Release Oral Tablet 04:50:[address] [facility] aspirin 02/20/2020 [facility] - 05:24:00 PM EDT [facility] nitroglycerin 0.6 mg/hr 02/20/2020 [facility] - transdermal film, extended 05:23:00 PM EDT [facility] Lorazepam 1 MG Oral Tablet 02/20/2020 [facility] Health - 05:22:00 PM EDT [facility] Ondansetron 4 MG 02/20/2020 [facility] - Disintegrating Oral Tablet 05:22:00 PM EDT [facility] Alprazolam 0.25 MG Oral 02/19/2020 [facility] Tablet 03:56:00 PM EDT [facility] Centrum oral liquid 02/15/2020 [facility] - 06:54:00 AM EDT [facility] metoclopramide 02/15/2020 [facility] - 06:54:00 AM EDT [facility] simvastatin 02/15/2020 [facility] - 06:54:00 AM EDT [facility] Pantoprazole 02/15/2020 [facility] - 06:54:00 AM EDT [facility] Diazepam 2 MG Oral Tablet 02/11/2020 [facility] Health - 09:05:00 AM EDT [facility] Losartan Potassium 25 MG Oral 02/07/2020 [facility] - Tablet 03:36:00 PM EDT [facility] Propranolol Hydrochloride 10 02/07/2020 [facility] - MG Oral Tablet 02:40:00 PM EDT [facility] lansoprazole 30 MG 02/06/2020 [facility] e[facility] - Disintegrating Oral Tablet 06:18:00 PM EDT [facility] Ondansetron 4 MG 02/06/2020 [facility] - Disintegrating Oral Tablet 06:16:00 PM EDT [facility] Diazepam 2 MG Oral Tablet 02/02/2020 [facility] Health - 04:23:00 PM EDT [facility] Sucralfate 100 MG/ML Oral 02/01/2020 [facility] 03:53:00 AM EDT [facility] Losartan Potassium 25 MG Oral 01/23/2020 [facility] - Tablet 02:01:00 PM EDT [facility] Cholecalciferol 2000 UNT Oral 01/23/2020 [facility] - Tablet 09:02:00 AM EDT [facility] Methocarbamol 750 MG Oral 10/08/2019 [facility] - Tablet 05:20:00 AM EST [facility] Ibuprofen 600 MG Oral Tablet 10/08/2019 [facility] - 05:19:00 AM EST [facility] Lidoderm 5% topical film 10/08/2019 [facility] anc Health - 05:19:00 AM EST [facility] Vitamin D (Ergocalciferol) 07/13/2019 e CW3 ([place] [address] UNIT 12:00:00 AM ED Health Care) buspirone hydrochloride 15 MG 04/01/2019 [facility] - Oral Tablet 03:21:00 PM EDT [facility] simvastatin 04/01/2019 [facility] - 03:21:00 PM EDT [facility] Diphenhydramine Hydrochloride 04/01/2019 [facility] - 25 MG Oral Tablet 03:21:00 PM EDT [facility] lansoprazole 30 mg oral 04/01/2019 [facility] - delayed release capsule 03:21:00 PM EDT [facility] Ventolin HFA 03/11/2019 [facility] - 09:59:00 AM EDT [facility] aspirin 03/11/2019 [facility] - 09:59:00 AM EDT [facility] POLYETHYLENE GLYCOL 3350 142 12/08/2018 [facility] - MG/ML Oral Solution 10:26:[address] [facility] Simethicone 66.7 MG/ML Oral 12/08/2018 [facility] - Suspension 10:26:00 AM EST [facility] pantoprazole 40 MG Oral 12/08/2018 [facility] - Granules 08:55:00 AM EST [facility] Metoclopramide 10 MG Oral 12/08/2018 [facility] - Tablet 08:55:00 AM [facility] Blood Pressure Monitor - 11/25/2018 eCW 3 ([place] 12:00:00 AM [facility] Care) Nebulizer - 11/25/2018 eCW3 ([place] 12:00:00 AM [facility] Health Care) Prednisone 20 MG Oral Tablet 11/21/2018 [facility] - 09:17:00 AM EST [facility] Diphenhydramine Hydrochloride 03/05/2018 eCW3 ([place] 25 MG Oral Capsule 12:00:00 AM EDT Health Care) Prednisone 50 MG Oral Tablet 01/10/2018 [place] [facility] - 08:46:00 PM EDT [facility] Albuterol 0.83 MG/ML Inhalant 09/22/2017 [facility] - Solution 02:11:00 PM EST [facility] 24 HR Diltiazem Hydrochloride 09/22/2017 [facility] - 360 MG Extended Release Oral 02:11:00 PM EST [facility] lansoprazole 30 mg oral 09/22/2017 [facility] nce Health - delayed release capsule 02:11:00 PM EST [facility] nitroglycerin 0.6 mg/hr 09/22/2017 [facility] nce Health - transdermal film, extended 02:10:00 PM EST [facility] buspirone hydrochloride 15 MG 09/08/2017 [facility] Oral Tablet 12:08:36 PM EST System BuSpar 09/08/2017 [facility] 12:07:52 PM EST System Ibuprofen 600 MG Oral Tablet 09/08/2017 [facility] 12:07:42 PM EST System Prednisone 20 MG Oral Tablet 09/07/2017 [facility] [Deltasone] 09:23:08 PM EST System Azithromycin 250 MG Oral 07/17/2017 [facility] Tablet [Zithromax] 10:15:37 AM EDT System 24 HR Nitroglycerin 0.6 MG/HR 07/17/2017 [facility] Transdermal Patch [Nitro-Dur] 10:12:05 AM EDT System lansoprazole 30 MG Delayed 07/17/2017 [facility] Release Oral Capsule 10:11:55 AM EDT Syst em 24 HR Diltiazem Hydrochloride 07/17/2017 [facility] 360 MG Extended Release Oral 10:11:44 AM EDT System Capsule Diphenhydramine Hydrochloride 07/17/2017 [facility] 25 MG Oral Capsule [Benadryl] 10:11:25 AM EDT System Aspirin 81 MG Delayed Release 07/17/2017 [facility] Oral Tablet 10:11:17 AM EDT System Simvastatin 40 MG Oral Tablet 07/17/2017 [facility] Health [Zocor] 10:11:05 AM EDT System Ventolin HFA 90 mcg/inh 07/17/2017 [facility] aerosol 10:10:35 AM EDT System Albuterol 0.83 MG/ML Inhalant 07/07/2017 [facility] Solution 10:03:08 AM EDT System montelukast 10 MG Oral Tablet 07/07/2017 [facility] Health 09:51:14 AM EDT System Azithromycin 500 MG Oral 07/07/2017 [facility] Tablet 09:50:18 AM EDT System Codeine Phosphate 2 MG/ML / 06/26/2017 [facility] Promethazine Hydrochloride 10:45:12 AM EDT System 1.25 MG/ML Oral Solution benzonatate 100 MG Oral 06/26/2017 [facility] Capsule 10:08:39 AM EDT System Azithromycin 40 MG/ML Oral 06/26/2017 [facility] Suspension 10:04:30 AM EDT System Bisacodyl 5 MG Delayed 05/21/2017 [facility] Health Release Oral Tablet 11:27:30 AM EDT Syste m POLYETHYLENE GLYCOL 3350 59 05/21/2017 [facility] Health MG/ML / Potassium Chloride 11:10:34 AM EDT System 0.01 MEQ/ML / Sodium Bicarbonate 0.02 MEQ/ML / Sodium Chloride 0.025 MEQ/ML / sodium sulfate 0.04 MEQ/ML Oral Solution hydrocortisone acetate 25 MG 05/14/2017 [facility] Rectal Suppository [Anusol 12:53:32 PM EDT System HC] 24 HR Nitroglycerin 0.6 MG/HR 05/14/2017 [facility] Transdermal Patch 12:03:48 PM EDT System Hydrocortisone 25 MG/ML 05/14/2017 [facility] 11:53:42 AM EDT System Docusate Sodium 10 MG/ML Oral 05/14/2017 [facility] Health Suspension 11:52:26 AM EDT System Azithromycin 04/17/2017 [facility] 09:42:54 AM EDT System Acetaminophen 325 MG Oral 04/04/2017 [facility] Tablet [Tylenol] 04:46:11 PM EDT System doxycycline hyclate 100 MG 04/04/2017 [facility] Oral Capsule 04:44:32 PM EDT System Ibuprofen 400 MG Oral Tablet 03/05/2017 [facility] [Ibu] 11:36:15 AM EDT System albuterol CFC free 90 mcg/inh 03/05/2017 [facility] inhalation aerosol 11:36:02 AM EDT System Cyclobenzaprine hydrochloride 02/25/2017 [facility] 10 MG Oral Tablet 08:43:59 AM EDT System Ibuprofen 400 MG Oral Tablet 01/30/2017 [facility] 02:51:14 PM EDT System Diphenhydramine Hydrochloride 01/30/2017 [facility] 50 MG Oral Tablet 02:51:07 PM EDT System Albuterol 0.833 MG/ML / 01/30/2017 [facility] Ipratropium [place] 0.167 02:50:27 PM EDT System MG/ML Inhalant Solution Meclizine Hydrochloride 25 MG 11/27/2016 [facility] Oral Tablet 05:14:06 PM EST System Cholecalciferol 400 UNT/ML 11/27/2016 [facility] Oral Solution 05:13:57 PM EST System Multivitamin preparation 11/27/2016 [facility] 05:13:48 PM EST System Calcium Carbonate 1250 MG 11/27/2016 [facility] Oral Tablet 05:09:08 PM EST System Budesonide 0.16 MG/ACTUAT / 11/27/2016 [facility] formoterol fumarate 0.0045 05:08:53 PM EST System MG/ACTUAT Metered Dose Inhaler lansoprazole 30 MG Delayed 11/27/2016 [facility] Release Oral Capsule 05:08:43 PM EST Syst em Simvastatin 40 MG Oral Tablet 11/27/2016 [facility] 05:08:36 PM EST System 24 HR Nitroglycerin 0.6 MG/HR 11/27/2016 [facility] Transdermal Patch [Minitran] 05:08:26 PM EST System 24 HR Diltiazem Hydrochloride 11/27/2016 [facility] 360 MG Extended Release Oral 05:08:16 PM EST System Capsule [Cardizem] Cholecalciferol 88772 UNT/ML 11/27/2016 [facility] Oral Solution 05:08:04 PM EST System Multi-Delyn oral liquid 11/27/2016 [facility] 05:07:57 PM EST System fluticasone 50 mcg/inh nasal 11/27/2016 [facility] spray 05:03:53 PM EST System Azithromycin 500 MG Oral 11/27/2016 [facility] Tablet 05:03:07 PM EST System Azithromycin 500 MG Oral 11/07/2016 [facility] Tablet 02:39:31 PM EST System Levofloxacin 750 MG Oral 10/16/2016 [facility] Tablet [Levaquin] 03:33:51 PM EST System buspirone hydrochloride 15 MG 10/16/2016 [facility] Oral Tablet 03:25:31 PM EST System 60 ACTUAT Fluticasone 10/16/2016 [facility] propionate 0.25 MG/ACTUAT / 03:25:01 PM EST System salmeterol 0.05 MG/ACTUAT Dry Powder Inhaler Meclizine Hydrochloride 12.5 10/16/2016 [facility] MG Oral Tablet 03:24:09 PM EST System Sodium Chloride 0.111 MEQ/ML 10/16/2016 [facility] Nasal [place] [[place]] 03:23:34 PM EST Sy stem Dextromethorphan Hydrobromide 09/04/2016 [facility] 2 MG/ML / Guaifenesin 20 02:07:40 PM EST System MG/ML Oral Solution lansoprazole 30 MG Delayed 09/04/2016 [facility] Release Oral Capsule 02:03:31 PM EST Syst em Meclizine Hydrochloride 25 MG 09/04/2016 [facility] [facility] Oral Tablet 02:01:21 PM EST System Zithromax Z-Phoenix 250 mg oral 09/04/2016 [facility] tablet 01:57:52 PM EST System lansoprazole 30 MG 08/18/2016 [facility] Disintegrating Oral Tablet 02:55:50 PM EST System 24 HR Diltiazem Hydrochloride 07/21/2016 [facility] 360 MG Extended Release Oral 12:14:36 PM EDT System Tablet [Cardizem] buspirone hydrochloride 15 MG 07/21/2016 [facility] Oral Tablet 12:14:02 PM EDT System 24 HR Nitroglycerin 0.2 MG/HR 07/21/2016 [facility] Trans[facility] Patch 12:13:54 PM EDT System Diphenhydramine Hydrochloride 07/21/2016 [facility] 2.5 MG/ML Oral Solution 12:13:39 PM EDT S ystem Dextromethorphan Hydrobromide 07/21/2016 [facility] 2 MG/ML / Guaifenesin 20 12:09:20 PM EDT System MG/ML Oral Solution Azithromycin 250 MG Oral 07/21/2016 [facility] Tablet 12:08:19 PM EDT System Flonase 50 mcg/inh nasal 04/11/2016 [facility] spray 11:31:04 AM EDT System Ventolin HFA 90 mcg/inh 03/31/2016 [facility] inhalation aerosol 02:19:10 PM EDT System Diphenhydramine Hydrochloride 03/31/2016 [facility] 25 MG Oral Tablet [Benadryl] 02:18:53 PM EDT System buspirone hydrochloride 15 MG 03/31/2016 [facility] Oral Tablet 02:18:39 PM EDT System 24 HR Nitroglycerin 0.6 MG/HR 03/31/2016 [facility] Transdermal Patch 02:18:32 PM EDT System Aspirin 81 MG Oral Tablet 03/31/2016 [facility] 02:17:53 PM EDT System Meclizine Hydrochloride 25 MG 02/28/2016 [facility] Oral Tablet 11:22:14 AM EDT System Sodium Chloride 0.111 MEQ/ML 12/31/2015 [facility] Nasal [place] [[place]] 12:54:54 PM EDT Sy stem Prednisone 20 MG Oral Tablet 12/31/2015 [facility] 12:54:20 PM EDT System Loratadine 10 MG Oral Tablet 12/31/2015 [facility] [[place]] 12:53:40 PM EDT System Docusate Sodium 100 MG Oral 12/24/2015 [facility] Capsule [Colace] 10:04:03 AM EDT System Meclizine Hydrochloride 25 MG 12/24/2015 [facility] Oral Tablet 10:03:43 AM EDT System Diphenhydramine Hydrochloride 12/24/2015 [facility] 25 MG Oral Tablet [Benadryl] 10:03:05 AM EDT System Hydralazine Hydrochloride 10 12/14/2015 [facility] MG Oral Tablet 11:35:39 AM EST System Simvastatin 40 MG Oral Tablet 12/14/2015 [facility] 11:35:11 AM EST System Diltiazem 12/14/2015 [facility] 11:35:05 AM EST System Albuterol 0.83 MG/ML Inhalant 12/14/2015 [facility] Health Solution 11:34:48 AM EST System Dextromethorphan Hydrobromide 11/28/2015 [facility] 1 MG/ML / Guaifenesin 20 12:04:28 PM EST System MG/ML Oral Solution Zithromax Z-Phoenix 250 mg oral 11/28/2015 [facility] Health tablet 11:52:19 AM EST System benzonatate 200 MG Oral 11/04/2015 [facility] Capsule 06:24:53 PM EST System Azithromycin 500 MG Oral 11/04/2015 [facility] Tablet 06:24:17 PM EST System Hydrochlorothiazide 12.5 MG 10/29/2015 [facility] Oral Tablet 03:08:11 PM EST System Azithromycin 250 MG Oral 10/17/2015 [facility] Tablet 02:28:10 PM EST System Calcium Carbonate 500 MG 10/16/2015 [facility] Chewable Tablet 11:55:25 AM EST System Cholecalciferol 400 UNT/ML 10/16/2015 [facility] Solution 11:54:53 AM EST System pantoprazole 40 MG Delayed 10/16/2015 [facility] Health Release Oral Tablet 11:54:10 AM EST Syste m Albuterol 0.833 MG/ML / 10/15/2015 [facility] Ipratropium [place] 0.167 12:38:14 PM EST System MG/ML Inhalant Solution Psyllium 10/15/2015 [facility] 12:00:00 AM EST System Ondansetron 8 MG 10/15/2015 [facility] Disintegrating Oral Tablet 12:00:00 AM EST System Hydrochlorothiazide 12.5 MG 10/15/2015 [facility] Oral Capsule 12:00:00 AM EST System Amoxicillin 500 MG / 10/15/2015 [facility] Clavulanate 125 MG Oral 12:00:00 AM EST S ystem Tablet Clonazepam 0.5 MG Oral Tablet 10/15/2015 [facility] 12:00:00 AM EST System Docusate Sodium 50 MG / 10/15/2015 [facility] sennosides, FCI 8.6 MG Oral 12:00:00 AM EST System Tablet Docusate Sodium 10 MG/ML Oral 10/05/2015 [facility] Health Suspension 07:10:40 PM EST System Sodium Chloride Nasal Product 09/06/2015 [facility] Health 12:28:25 PM EST System Ibuprofen 600 MG Oral Tablet 09/06/2015 [facility] [Ibu] 12:25:05 PM EST System lansoprazole 30 MG Delayed 09/06/2015 [facility] Release Oral Capsule 12:16:54 PM EST Syst em Diphenhydramine Hydrochloride 09/06/2015 [facility] 25 MG Oral Tablet [Benadryl] 12:13:04 PM EST System 200 ACTUAT Albuterol 0.09 09/06/2015 [facility] MG/ACTUAT Metered Dose 12:05:37 PM EST Sy stem Inhaler [ProAir] 24 HR Nitroglycerin 0.2 MG/HR 09/06/2015 [facility] Transdermal Patch 12:05:30 PM EST System Spironolactone 25 MG Oral 09/06/2015 [facility] Tablet 12:05:17 PM EST System 24 HR Diltiazem Hydrochloride 08/27/2015 [facility] 360 MG Extended Release Oral 02:11:12 PM EST System Capsule Meclizine Hydrochloride 25 MG 08/15/2015 [facility] Oral Tablet 11:47:55 AM EST System Sodium Chloride 0.111 MEQ/ML 08/15/2015 [facility] Nasal Solution [[place] 11:21:09 AM EST System Nasal] 24 HR metoprolol succinate 25 08/15/2015 [facility] MG Extended Release Oral 11:13:38 AM EST System Tablet Nasonex 50 mcg/inh nasal 08/15/2015 [facility] spray 11:08:34 AM EST System Meclizine Hydrochloride 25 MG 08/10/2015 [facility] Oral Tablet 07:56:10 PM EST System Acetaminophen 300 MG / 07/31/2015 [facility] Codeine Phosphate 30 MG Oral 03:03:43 PM EDT System Tablet Amoxicillin 875 MG / 07/31/2015 [facility] Clavulanate 125 MG Oral 03:03:16 PM EDT S ystem Tablet Ventolin HFA 90 mcg/inh 07/13/2015 [facility] inhalation aerosol 11:04:01 AM EDT System 24 HR Diltiazem Hydrochloride 07/13/2015 [facility] 360 MG Extended Release Oral 11:01:29 AM EDT System Capsule [Cardizem] Diphenhydramine Hydrochloride 07/13/2015 [facility] 25 MG Oral Tablet 10:40:28 AM EDT System Calcium Carbonate 1250 MG / 07/13/2015 [facility] Cholecalciferol 0.01 MG 10:38:35 AM EDT S ystem Chewable Tablet buspirone hydrochloride 15 MG 07/13/2015 [facility] Oral Tablet 10:36:21 AM EDT System Erythromycin 500 MG Oral 07/13/2015 [facility] Tablet 10:34:32 AM EDT System Claritin-D 24 Hour 07/13/2015 [facility] 10:34:00 AM EDT System Simvastatin 40 MG Oral Tablet 07/13/2015 [facility] 10:33:52 AM EDT System lansoprazole 30 MG Delayed 07/13/2015 [facility] Release Oral Capsule 10:33:44 AM EDT Syst em POLYETHYLENE GLYCOL 3350 142 05/01/2015 [facility] MG/ML Oral Solution 03:26:04 PM EDT Syste m [ClearLax] POLYETHYLENE GLYCOL 3350 142 05/01/2015 [facility] MG/ML Oral Solution 03:25:09 PM EDT Syste m Erythromycin 500 MG Oral 04/10/2015 [facility] Tablet 10:04:45 AM EDT System Azithromycin 500 MG Oral 04/05/2015 [facility] Tablet 06:47:17 PM EDT System Sodium Chloride 0.154 MEQ/ML 04/05/2015 [facility] Nasal [place] 06:22:53 PM EDT System Oxymetazoline hydrochloride 04/05/2015 [facility] 0.5 MG/ML Nasal [place] [Afrin] 06:20:10 PM EDT System Azithromycin 250 MG Oral 04/05/2015 [facility] Tablet 06:17:35 PM EDT System Azithromycin 500 MG Oral 04/05/2015 [facility] Tablet 06:14:00 PM EDT System Diphenhydramine Hydrochloride 03/29/2015 [facility] 50 MG Oral Tablet 11:13:40 AM EDT System Flonase 50 mcg/inh nasal 03/29/2015 [facility] spray 11:11:15 AM EDT System Docusate Sodium 10 MG/ML Oral 03/09/2015 [facility] Health Suspension 09:53:57 AM EDT System Albuterol 0.83 MG/ML Inhalant 03/09/2015 [facility] Solution 09:50:15 AM EDT System Spironolactone 50 MG Oral 03/09/2015 [facility] Tablet 09:47:49 AM EDT System Docusate Sodium 50 MG / 03/09/2015 [facility] sennosides, FCI 8.6 MG Oral 09:39:54 AM EDT System Tablet buspirone hydrochloride 15 MG 03/09/2015 [facility] Health Oral Tablet 09:39:45 AM EDT System Metronidazole 500 MG Oral 01/08/[address] [facility] Tablet [Flagyl] 02:17:26 PM EDT System Azithromycin 500 MG Oral 01/08/2015 [facility] Health Tablet 02:16:41 PM EDT System Flonase 50 mcg/inh nasal 01/06/2015 [facility] Health spray 07:14:14 AM EDT System Prednisone 50 MG Oral Tablet 01/06/2015 [facility] 07:13:07 AM EDT System Erythromycin 500 MG Oral 01/06/2015 [facility] 06:43:22 AM EDT System Ibuprofen 600 MG Oral Tablet 01/06/2015 [facility] [Ibu] 06:42:04 AM EDT System Clindamycin 150 MG Oral 11/24/2014 [facility] Capsule 09:41:27 AM EST System Clindamycin 300 MG Oral 11/24/2014 [facility] Capsule 09:40:27 AM EST System Prednisone 50 MG Oral Tablet 11/24/2014 [facility] 09:40:08 AM EST System Naproxen 500 MG Oral Tablet 11/24/2014 [facility] 09:39:38 AM EST System Metronidazole Topical Product 11/16/2014 [facility] 01:30:09 PM EST System Spironolactone 50 MG Oral 11/10/2014 [facility] 03:48:35 PM EST System 24 HR Nitroglycerin 0.2 MG/HR 11/10/2014 [facility] Transdermal Patch 03:09:27 PM EST System Ibuprofen 600 MG Oral Tablet 11/10/2014 [facility] [Ibu] 03:08:36 PM EST System Diphenhydramine Hydrochloride 11/10/2014 [facility] Health 50 MG Oral Tablet 03:06:20 PM EST System buspirone hydrochloride 15 MG 11/10/2014 [facility] Oral Tablet 03:05:25 PM EST System Aspirin 11/10/2014 [facility] 03:05:08 PM EST System Spironolactone 50 MG Oral 11/10/2014 [facility] Tablet [Aldactone] 03:04:49 PM EST System albuterol CFC free 90 mcg/inh 11/10/2014 [facility] inhalation aerosol 03:04:26 PM EST System Calcium Carbonate 1250 MG / 11/10/2014 [facility] Cholecalciferol 200 UNT Oral 03:04:14 PM EST System Tablet Calcium Carbonate 1250 MG / 08/30/2014 [facility] Cholecalciferol 200 UNT Oral 11:41:55 AM EST System Tablet Ibuprofen 600 MG Oral Tablet 08/30/2014 [facility] [Ibu] 11:37:24 AM EST System albuterol CFC free 90 mcg/inh 08/30/2014 [facility] inhalation aerosol 11:33:50 AM EST System lansoprazole 30 MG Delayed 08/30/2014 [facility] Release Oral Capsule 11:33:04 AM EST Syst em Simvastatin 40 MG Oral Tablet 08/30/2014 [facility] 11:31:54 AM EST System Diphenhydramine Hydrochloride 08/30/2014 [facility] 50 MG Oral Tablet 11:30:06 AM EST System Aspirin 08/30/2014 [facility] 11:27:41 AM EST System Spironolactone 50 MG Oral 08/30/2014 [facility] [Aldactone] 11:24:03 AM EST System 24 HR Diltiazem Hydrochloride 08/30/2014 [facility] 360 MG Extended Release Oral 11:23:38 AM EST System Tablet Codeine Phosphate 2 MG/ML / 10/24/2013 [facility] Guaifenesin 40 MG/ML Oral 12:04:50 PM EST System Solution Azithromycin 500 MG Oral 10/24/2013 [facility] Tablet 12:01:56 PM EST System Erythromycin 500 MG Delayed 07/03/2013 [facility] Health Release Oral Tablet [Justice-Tab] 11:02:45 AM EDT System Ibuprofen 600 MG Oral Tablet 03/28/2013 [facility] 11:28:12 AM EDT System Simvastatin 40 MG Oral Tablet [facility] Motrin [facility] System BuSpar [facility] System Benadryl [facility] System lansoprazole 30 MG Delayed [facility] Release Oral Capsule System [Prevacid] 24 HR Diltiazem Hydrochloride eCW3 ([facility] 360 MG Extended Release [facility]) Capsule Albuterol 0.83 MG/ML Inhalant eCW3 ([facility]) Ibuprofen 600 MG Oral Tablet eCW3 ([facility]) Simethicone 66.7 MG/ML Oral eCW3 ([facility]) BuSpar 15 MG eCW3 ([facility])
--- NOTE | 2020-06-30 15:59 | HP ---
CHIEF COMPLAINT: back pain PCP: n/a HISTORY OF PRESENT ILLNESS: 70 yo lady PMH GERD, anxiety, asthma, achalasia, HLD, HTN, MAURICIO, s/p thyroid surgery for benign nodule in , presented to ED complaining from mid-back pain without radiation, that started suddenly yesterday, aggravated by movement, relieved by rest. Pt had similar episodes in the past week, resolved with pain medications and rest, but reported that this episodes is worse. Denies numbness, change in urine or bowel habits. Pt stated her pain is improved with pain medications. ER course was notable for: (1) CTA chest/abdomen/pelvis showed no acute pathology, rt thyromegaly without evidence of bony lesions (2)toradol, diazepam (3) Recent Travel: no PAST MEDICAL HISTORY: GERD, anxiety, asthma, achalasia, HLD, HTN, MAURICIO, s/p thyroid surgery for benign nodule in , PAST SURGICAL HISTORY: NA Social History: Smoking: denies Alcohol: denies Drugs: denies Allergies amlodipine [From Norvasc] Allergy (Verified 05/01/20 12:54) amoxicillin Allergy (Verified 05/01/20 12:54) atorvastatin [From Lipitor] Allergy (Verified 05/01/20 12:54) latex Allergy (Verified 05/01/20 12:54) omeprazole Allergy (Verified 05/01/20 12:54) Penicillins Allergy (Verified 05/01/20 12:54) prochlorperazine [From Compazine] Allergy (Verified 05/01/20 12:54) propranolol Allergy (Verified 05/01/20 12:54) shellfish derived Allergy (Verified 05/01/20 12:54) Sulfa (Sulfonamide Antibiotics) Allergy (Verified 05/01/20 12:54) lactose Adverse Reaction (Verified 05/04/20 13:09) HOME MEDICATIONS: Home Medications Medication Instructions Recorded Famotidine [Pepcid -] 40 mg PO DAILY 05/01/20 Ondansetron Oral Solution [Zofran 4 mg PO TID PRN #50 ml 05/04/20 Oral Solution -] Potassium Chloride [Potassium 20 meq PO ONCE #30 cup 05/04/20 Chloride Oral Liquid] REVIEW OF SYSTEMS CONSTITUTIONAL: loss of appetite, weight change HEENT: Absent: rhinorrhea, nasal congestion, throat pain, throat swelling, difficulty swallowing, mouth swelling, ear pain, eye pain, visual changes CARDIOVASCULAR: Absent: chest pain, syncope, palpitations, irregular heart rate, lightheadedness, peripheral edema RESPIRATORY: Absent: cough, shortness of breath, dyspnea with exertion, orthopnea, wheezing, stridor, hemoptysis GASTROINTESTINAL: diarrhea GENITOURINARY: Absent: dysuria, frequency, urgency, hesitancy, hematuria, flank pain, genital pain MUSCULOSKELETAL: Absent: myalgia, arthralgia, joint swelling, back pain, neck pain SKIN: Absent: rash, itching, pallor HEMATOLOGIC/IMMUNOLOGIC: Absent: easy bleeding, easy bruising, lymphadenopathy, frequent infections ENDOCRINE: Absent: unexplained weight gain, unexplained weight loss, heat intolerance, cold intolerance NEUROLOGIC: see HPI PSYCHIATRIC: Absent: anxiety, depression, suicidal or homicidal ideation, hallucinations. PHYSICAL EXAMINATION Vital Signs - 24 hr 06/30/20 06/30/20 06/30/20 07:37 08:00 09:42 Temperature 98.5 F Pulse Rate 100 H 88 Respiratory 20 20 Rate Blood Pressure 165/96 143/92 O2 Sat by Pulse 100 100 100 Oximetry (%) GENERAL: Awake, alert, and fully oriented, in no acute distress. HEAD: Normal with no signs of trauma. EYES: Pupils equal, round and reactive to light, extraocular movements intact, sclera anicteric, conjunctiva clear. No lid lag. EARS, NOSE, THROAT: Ears normal, nares patent, oropharynx clear without exudates. Moist mucous membranes. NECK: Normal range of motion, supple without lymphadenopathy, JVD, or masses. LUNGS: Breath sounds equal, clear to auscultation bilaterally. No wheezes, and no crackles. No accessory muscle use. HEART: Regular rate and rhythm, normal S1 and S2 without murmur, rub or gallop. ABDOMEN: Soft, nontender, not distended, normoactive bowel sounds, no guarding, no rebound, no masses. No hepatomegaly or splenomegaly. MUSCULOSKELETAL: Normal range of motion at all joints. No bony deformities or tenderness. No CVA tenderness. UPPER EXTREMITIES: 2+ pulses, warm, well-perfused. No cyanosis. No clubbing. No peripheral edema. LOWER EXTREMITIES: 2+ pulses, warm, well-perfused. No calf tenderness. No peripheral edema. NEUROLOGICAL: Cranial nerves II-XII intact. Normal speech. Normal gait. PSYCHIATRIC: Cooperative. Good eye contact. Appropriate mood and affect. SKIN: Warm, dry, normal turgor, no rashes or lesions noted, normal capillary r efill. Laboratory Results - last 24 hr 06/30/20 06/30/20 06/30/20 09:20 09:20 09:35 WBC 7.8 RBC 4.40 Hgb 11.0 Hct 33.9 MCV 77.0 L MCH 25.1 L MCHC 32.6 RDW 19.2 H Plt Count 283 MPV 8.2 Absolute Neuts (auto) 5.0 Neutrophils % 63.2 Lymphocytes % 25.2 Monocytes % 8.9 Eosinophils % 2.0 Basophils % 0.7 Nucleated RBC % 0 PT with INR 13.90 H INR 1.18 H PTT (Actin FS) 37.5 H Sodium 140 Potassium 3.3 L Chloride 109 H Carbon Dioxide 21 Anion Gap 10 BUN 5.7 L Creatinine 0.5 L Est GFR (CKD-EPI)AfAm 114.45 Est GFR (CKD-EPI)NonAf 98.75 Random Glucose 93 Calcium 9.0 Total Bilirubin 0.8 AST 20 ALT 16 Alkaline Phosphatase 113 Creatine Kinase 251 H Creatine Kinase Index 1.1 CK-MB (CK-2) 3.0 Troponin I < 0.02 Total Protein 7.2 Albumin 3.5 Lipase 33 L ASSESSMENT/PLAN: 70 yo lady PMH GERD, anxiety, asthma, achalasia, HLD, HTN, MAURICIO, s/p thyroid surgery for benign nodule in , presented to ED complaining from mid-back pain without radiation # Acute Back pain - appears to be musculoskeletal - improved with pain management - CTA chest/abdomen/pelvis showed no acute pathology, rt thyromegaly without evidence of bony lesions - no focal neurological deficit - denies fever, chills, or any neurological symptoms - pt has wt loss likely attributed to achalasia - pain management, +/- muscle relaxant - PT - neurology consult if further imaging is needed achalasia GERD Anxiety Rt Thyroid lobe enlargement DVT prophylaxis Family Medical History Family History: Unremarkable Visit type - Medication Review Med list reviewed for High Risk Meds patients 65 and older: Yes (yes) - Emergency Visit Emergency Visit: Yes ED Registration Date: 06/30/20 Care time: The patient presented to the Emergency Department on the above date and was hospitalized for further evaluation of their emergent condition. - New Patient This patient is new to me today: Yes Date on this admission: 06/30/20 - Critical Care Critical Care patient: No
--- NOTE | 2020-06-30 16:09 | EKG ---
Test Reason : Blood Pressure : / mmHG Vent. Rate : 094 BPM Atrial Rate : 094 BPM P-R Int : 152 ms QRS Dur : 070 ms QT Int : 352 ms P-R-T Axes : 073 -03 021 degrees QTc Int : 440 ms NORMAL SINUS RHYTHM NORMAL ECG WHEN COMPARED WITH ECG OF 01-MAY-2020 14:23, PREMATURE VENTRICULAR COMPLEXES ARE NO LONGER PRESENT Confirmed by MD Timmons Daniel ([id number]) on 06/30/2020 4:08:46 PM Referred By: Confirmed By:Rafael Timmons MD
[2020-06-30] MEDS ORDERED: ONDANSETRON 4 MG/2 ML VIAL IVPUSH PRN (16:27)
[2020-06-30] MEDS ORDERED: ACETAMINOPHEN 325 MG TABLET (FP) PO PRN (16:27)
[2020-06-30] MEDS ORDERED: POTASSIUM CHLORIDE TABS 20 MEQ TABLET.ER (FP) PO ONE (16:31)
[2020-06-30] MEDS ORDERED: traMADol HCL 50 MG TABLET PO PRN (16:32)
[2020-06-30] MEDS ORDERED: POTASSIUM CHLORIDE ORAL LIQUID 20 MEQ/15 ML PO ONE (16:50)
[2020-06-30] MEDS ORDERED: POTASSIUM CHLORIDE ORAL LIQUID 20 MEQ/15 ML ONE (16:52)
[2020-06-30] MEDS ORDERED: LIDOCAINE PATCH REMOVAL MC SCH (22:00)
[2020-06-30] MEDS: FAMOTIDINE 10 MG TABLET PO SCH ×2 (22:18→23:16)
[2020-06-30] MEDS: HEPARIN NA (PORCINE) 5,000 UNITS/ML 1ML VIAL SQ SCH (22:18)
[2020-06-30] MEDS ORDERED: FAMOTIDINE 20 MG/50 ML IVPB 20 MG/50 ML MG IVPB ONE (22:33)
[2020-07-01 03:23] VITALS: BMI 20.7
[2020-07-01] MEDS: HEPARIN NA (PORCINE) 5,000 UNITS/ML 1ML VIAL SQ SCH ×2 (05:41→14:38)
[2020-07-01 07:57] LABS: HEMOGLOBIN 10.4 GM/dL (10.7-15.3); MCH 24.4 pg (25.7-33.7); MCHC 31.4 g/dl (32.0-36.0); MEAN CELL VOLUME 77.7 fl (80-96); MEAN PLT VOLUME 8.5 fl (7.5-11.1); PLATELET COUNT 263 K/MM3 (134-434); RBC 4.25 M/mm3 (3.60-5.2); RDW 19.3 % (11.6-15.6); WHITE BLOOD COUNT 4.9 K/mm3 (4.0-10.0)
[2020-07-01 08:24] LABS: CALCIUM 8.4 mg/dL (8.5-10.1); CREATININE 0.3 mg/dL (0.55-1.3); MAGNESIUM 2.1 mg/dL (1.8-2.4); PHOSPHOROUS 2.6 mg/dL (2.5-4.9); POTASSIUM 4.4 mmol/L (3.5-5.1)
[2020-07-01] MEDS: FAMOTIDINE 10 MG TABLET PO SCH ×2 (10:29→11:37)
--- NOTE | 2020-07-01 11:39 | DS ---
Physical Exam: SUBJECTIVE: Pain improved. No events. Patient reports she had been taking out home items from boxes for 3-4 hours as she has recently moved. She does not own a heating pad will pursue buying one to help with spasms. OBJECTIVE: Vital Signs Period Temp Pulse Resp BP Sys/Black Pulse Ox Last 24 Hr 97.0 F-98.1 F 68-82 18-20 105-129/64-80 98-100 PHYSICAL EXAM GENERAL: The patient is awake, alert, and fully oriented, in no acute distress. HEENT: NC/at, IDA, MMM NECK: No C-spine tenderness. LUNGS: CTA bilaterally, no wheezes, no crackles, no accessory muscle use. HEART: RRR, S1, S2 without murmur ABDOMEN: Soft, NT/ND, normoactive bowel sounds, no guarding MSK: No spinal tenderness, increased tone of paraspinal muscles EXTREMITIES: 2+ pulses, warm, well-perfused, no edema. NEUROLOGICAL: Nonfocal. Gait steady PSYCH: Normal mood, normal affect. SKIN: Warm, dry, no rashes or lesions noted. LABS Laboratory Results - last 24 hr 06/30/20 07/01/20 07/01/20 09:20 07:05 07:05 WBC 4.9 RBC 4.25 Hgb 10.4 L Hct 33.0 MCV 77.7 L MCH 24.4 L MCHC 31.4 L RDW 19.3 H Plt Count 263 MPV 8.5 Sodium 140 139 Potassium 3.3 L 4.4 Chloride 109 H 109 H Carbon Dioxide 21 23 Anion Gap 10 6 L BUN 5.7 L 2.0 L* Creatinine 0.5 L 0.3 L Est GFR (CKD-EPI)AfAm 114.45 135.40 Est GFR (CKD-EPI)NonAf 98.75 116.82 Random Glucose 93 84 Calcium 9.0 8.4 L Phosphorus 2.6 Magnesium 2.1 Total Bilirubin 0.8 AST 20 ALT 16 Alkaline Phosphatase 113 Creatine Kinase 251 H Creatine Kinase Index 1.1 CK-MB (CK-2) 3.0 Troponin I < 0.02 Total Protein 7.2 Albumin 3.5 Lipase 33 L TSH 0.03 L HOSPITAL COURSE: Date of Admission:06/30/20 Date of Discharge: 07/01/20 Pt placed in observation due to her back pain which responded well to her prescribed medications. Patient was reportedly moving into a new home and was utilizing her back to open boxes and place items. She had markedly improved and did not exhibit and concerning symptoms. She did note that she has been having frequent nausea and vomiting. she will need to follow-up with her PMD, GI, and endocrinology due to her ongoing medical problems related to her reflux, questionable achalasia, and thyroid nodule (R). Patient is being sent home with prescriptions of toradol, tylenol, pepcid, and zofran to improve and see her outpatient physicians. Minutes to complete discharge: 33 Discharge Summary Problems reviewed: Yes Reason For Visit: INTRACTABLE BACK PAIN Condition: Improved - Instructions Diet, Activity, Other Instructions: You were seen here for your back pain. It improved with the tylenol and medications. You will need to have some followups with your outpatient doctors. Please rest for the next couple of days and do not move boxes. You can use a heating pad to help as well MEDICATIONS: You medications have been sent to the pharmacy You will be given Zofran for your nausea to take as needed You will be given Pepcid 20mg TWICE daily for your acid reflux You will be given Toradol to take NEEDED for your back pain until you get better. It is okay to alternate this medications with tylenol to help with the pain You DO NOT need any more potassium as your level is high. Please stop taking this medication and see your primary doctor. Follow-up: Please follow-up with your primary care provider; one has been provided to you if you do not have one Please follow-up with Dr. Reid for your reflux and throat problems Please follow-up with Dr. Powers for your thyroid nodule Referrals: Jeremi Cordero MD [Staff Physician] - 1 Week (Establish primary care) Tim Reid DO [Staff Physician] - 1 Week (Achalasia) Suzette Powers MD [Staff Physician] - 1 Week (Thyroid nodule) Disposition: HOME - Home Medications Comprehensive Discharge Medication List: Ambulatory Orders Famotidine [Pepcid -] 40 mg PO DAILY 05/01/20 Ondansetron Oral Solution [Zofran Oral Solution -] 4 mg PO TID PRN #50 ml 05/04/20 Potassium Chloride [Potassium Chloride Oral Liquid] 20 meq PO ONCE #30 cup 05/04/20 This patient is new to me today: Yes Date on this admission: 07/01/20 Emergency Visit: Yes ED Registration Date: 06/30/20 Care time: The patient presented to the Emergency Department on the above date and was hospitalized for further evaluation of their emergent condition. Critical Care patient: No - Discharge Referral Referred to [facility] Yes Physician Referral: Jaleel Reid DO (GI)
[2020-07-01] MEDS ORDERED: MAG HYDROX/AL HYDROX/SIMETH 30 ML UNIT-DOSE CUP PO ONE (14:00)
[2020-07-01 14:21] VITALS: BP 105/69; PULSE 72; TEMP 97.7
== END 2020-07-01 17:00 | disposition home or self-care (01) ==
LOC: JER 07:34 → INTOOBSV 14:52 → JERBED 14:52 → J7W 19:03
PROVIDERS: ADMIT Student in an Organized Health Care Education/Training Program; ATTEND Internal Medicine
PROC: 3E0337Z Introduction of Electrolytic and Water Balance Substance into Peripheral Vein, Percutaneous Approach (ICD-10-PCS; principal; 2020-06-30)
DX: K22.0 Achalasia of cardia (principal); K21.9 Gastro-esophageal reflux disease without esophagitis; I10 Essential (primary) hypertension; E78.5 Hyperlipidemia, unspecified; J45.909 Unspecified asthma, uncomplicated; E04.1 Nontoxic single thyroid nodule; M54.9 Dorsalgia, unspecified; F41.9 Anxiety disorder, unspecified; G47.33 Obstructive sleep apnea (adult) (pediatric); Z91.013 Allergy to seafood; Z88.0 Allergy status to penicillin; R11.0 Nausea; R19.7 Diarrhea, unspecified; R63.0 Anorexia; Z88.1 Allergy status to other antibiotic agents; Z88.8 Allergy status to other drugs, medicaments and biological substances; Z91.040 Latex allergy status
CPT/HCPCS: 36415; 71046-TC-FY; 71275-TC; 74174-TC; 80048; 80053; 82550; 82553; 83690; 83735; 84100; 84439; 84443; 84484; 85025; 85027; 85610; 85730; 93005; 93010; 96365; 96372; 96375; 99285-25; C1887; G0378; J0131; J1644; Q9967; U0003

== ENCOUNTER 2020-07-11 02:17 | Emergency (ER) | payer OTHER ==
--- OUTSIDE RECORDS SUMMARY | 2020-07-11 02:43 | XMS ---
:1950 Author Organization [facility] Care Team Providers Name Role Phone Mariia Zabala MD Unavailable Unavailable Lindy-Stanton Unavailable Unavailable Lindy-Stanton Unavailable Unavailable Mikaela Green MD Unavailable Unavailable Sue Unavailable Unavailable Jonathan Unavailable Jonathan Unavailable Jonathan Unavailable Jonathan Unavailable Jonathan Unavailable Jonathan Unavailable Iamele Unavailable Unavailable Iamele Unavailable Unavailable Iamele Unavailable Unavailable Wally LAFLEUR Unavailable Unavailable Efrain LAFLEUR, GKeaton Unavailable Unavailable Deacon LAFLEUR, RKeaton Unavailable Unavailable Wilmer No, Physician Y Unavailable [...] DO Unavailable Unavailable JOSEPH, DO Unavailable Unavailable SARGIOS, N Unavailable Unavailable SARGIOS, N Unavailable Unavailable SARGIOS, N Unavailable Unavailable SARGIOS, N Unavailable Unavailable SARGIOS, N Unavailable Unavailable SARGIOS, N Unavailable Unavailable SARGIOS, N Unavailable Unavailable SARGIOS, N Unavailable Unavailable SARGIOS, N Unavailable Unavailable SARGIOS, N Unavailable Unavailable JOSEPH Unavailable Unavailable JOSEPH Unavailable Unavailable JOSEPH Unavailable Unavailable JOSEPH Unavailable Unavailable JOSEPH Unavailable Unavailable Zhou LAFLEUR, AKeaton Unavailable Unavailable MD JAMES Unavailable Unavailable MD JAMES Unavailable Unavailable MD JAMES Unavailable Unavailable MD JAMES Unavailable Unavailable MD JAMES Unavailable Unavailable MD JAMES Unavailable Unavailable MD JAMES Unavailable Unavailable MD JAMES Unavailable Unavailable MD JAMES Unavailable Unavailable MD JAMES Unavailable Unavailable MD JAMES Unavailable Unavailable MD JAMES Unavailable Unavailable MD JAMES Unavailable Unavailable Brant Ba MD Unavailable Unavailable Patria Unavailable Unavailable U DO, L DO Unavailable Unavailable Wally LAFLEUR, Physician J Unavailable Unavailable Ariel Unavailable Unavailable JUHI LAFLEUR MD Unavailable Unavailable Ede DO, P. Unavailable Unavailable Ede DO, P. Unavailable Unavailable Ede DO, P. Unavailable Unavailable Ronen DO, Physician A Unavailable Unavailable Tanya Coffey MD [...] Unavailable Jonathan Unavailable Jonathan Unavailable Jonathan Unavailable Jonahtan Unavailable Jonathan Unavailable Huchital Unavailable Unavailable Jamaal LAFLEUR, Physician H Unavailable Unavailable Aba LAFLEUR, Physician U Unavailable [...] Unavailable Chriss Unavailable Unavailable Chriss Unavailable Unavailable ER Unavailable Unavailable Huchital Unavailable [...] Neida Unavailable Unavailable MD Neida Unavailable Unavailable Aamir Yu PA-C Unavailable Unavailable [facility] Unavailable Unavailable John MEYERS MD, MD Unavailable Unavailable Nikki EXCELSIOR PICKER, M Unavailable Unavailable Nikki EXCELSIOR PICKER, M Unavailable Unavailable Nikki EXCELSIOR PICKER, M Unavailable Unavailable Nikki EXCELSIOR PICKER, M Unavailable Unavailable Nikki EXCELSIOR PICKER, M Unavailable Unavailable Nikki EXCELSIOR PICKER, M Unavailable Unavailable Nikki EXCELSIOR PICKER, M Unavailable Unavailable Nikki EXCELSIOR PICKER, M Unavailable Unavailable Nikki EXCELSIOR PICKER, M Unavailable Unavailable Fabián Unavailable Unavailable MD Earl Unavailable Unavailable MD Earl Unavailable Unavailable MD Earl Unavailable Unavailable MD Earl Unavailable Unavailable MD Earl Unavailable Unavailable SHEIKH MIQUEL MD Unavailable Unavailable Richton Unavailable Unavailable Richton Unavailable Unavailable Richton Unavailable Unavailable Richton Unavailable Unavailable Richton Unavailable Unavailable Richton Unavailable Unavailable Richton Unavailable Unavailable Richton Unavailable Unavailable Richton Unavailable Unavailable Richton Unavailable Unavailable Richton Unavailable Unavailable Richton Unavailable Unavailable Richton Unavailable Unavailable Richton Unavailable Unavailable Richton Unavailable Unavailable Richton Unavailable Unavailable Re-disclosure Warning The records that [...] is protected by Article 27-F of the [facility] Public Health law. If you continue you may haveaccess to information: Regarding HIV / AIDS; Provided by facilities licensed or operated by the [facility] Office of Mental Health; or Provided by the [facility] Office for People With Developmental Disabilities. If such information is present, then the following [facility] mandated warning applies: This information has been [...] law may result in a fine or mcc sentence or both. A general authorization for the release of medical or other information is NOT sufficient authorization for further disclosure. Allergies and Adverse Reactions Type Description Substance Reaction Status Data Source(s) Food allergy Cranberry Cranberry [facility] Food allergy Grapes Grapes [facility] Drug allergy Lipitor Lipitor [facility] Drug allergy [facility] Drug allergy Zithromax Zithromax [facility] Drug allergy Compazine Compazine [facility] Drug allergy sulfa drugs sulfa drugs [facility] Environmental Latex [facility] Food allergy shellfish shellfish [facility] Drug allergy omeprazole omeprazole [facility] Drug allergy penicillin penicillin [facility] Drug allergy amoxicillin amoxicillin [facility] Drug allergy propranolol propranolol [facility] lysol [facility] Drug allergy cranberry cranberry Itching U [facility] Drug allergy pneumococcal pneumococcal Hives U [facility] vaccine vaccine [facility] Drug allergy Bleach (Sodium Bleach (Sodium [facility] Hypochlorite) Breath [facility] Food allergy Cranberry Cranberry [facility] Food allergy Grapes Grapes [facility] Drug allergy Lipitor Lipitor [facility] Drug allergy [facility] Drug allergy Zithromax Zithromax [facility] Drug allergy Compazine Compazine [facility] Drug allergy sulfa drugs sulfa drugs [facility] Environmental Latex Latex [facility] Food allergy shellfish shellfish [facility] Drug allergy omeprazole omeprazole [facility] Drug allergy penicillin penicillin [facility] Drug allergy amoxicillin amoxicillin [facility] Drug allergy propranolol propranolol [facility] Food allergy Cranberry Cranberry [facility] Food allergy Grapes Grapes [facility] Drug allergy Lipitor Lipitor [facility] Drug allergy [facility] Drug allergy Zithromax Zithromax [facility] Drug allergy Compazine Compazine [facility] Drug allergy sulfa drugs sulfa drugs [facility] Environmental Latex Latex [facility] Food allergy shellfish shellfish [facility] Drug allergy omeprazole omeprazole [facility] Drug allergy penicillin penicillin [facility] Drug allergy amoxicillin amoxicillin [facility] flu vaccines Hives U [facility] Drug allergy shellfish derived shellfish derived Anaphylaxis U [facility] Drug allergy latex latex Anaphylaxis U [facility] Drug allergy atorvastatin atorvastatin Rash U [facility] Drug allergy amlodipine amlodipine Rash U [facility] Drug allergy azithromycin azithromycin Rash U [facility] Drug allergy omeprazole omeprazole Rash U [facility] Drug allergy prochlorperazine prochlorperazine Rash U [facility] Drug allergy Sulfa (Sulfonamide Sulfa (Sulfonamide Anaphylaxis U [facility] Antibiotics) Antibiotics) [facility] Drug allergy Penicillins Penicillins Anaphylaxis U [facility] Drug allergy No Known Allergies No Known Allergies [facility] Drug allergy azithromycin azithromycin [facility] ophthalmic [facility] Drug allergy azithromycin azithromycin [facility] ophthalmic ophthalmic [facility] Drug allergy azithromycin azithromycin [facility] Drug allergy penicillins penicillins [facility] Environmental Latex Exam Gloves Latex Exam Gloves Nusylvesterce Allergy [facility] Drug allergy penicillins penicillins [facility] Environmental Latex Exam Gloves Latex Exam Gloves [place] Allergy [facility] Drug allergy penicillins penicillins [facility] Environmental Latex Exam Gloves Latex Exam Gloves Nusylvesterce Allergy [facility] [id number] Synonym(s): RUBBER Weal Active [facility] iore LATEX [INCI]; Health LATEX; POLYMER OF System CIS-1,4-POLYISOPRE NE: MOLECULAR WEIGHT 100,000 TO 1,000,000 WITH A FEW PERCENT OF OTHER MATERIALS; PROTEINS, FATTY ACIDS, RESINS AND INORGANICS; NATURAL RUBBER; LATEX [VANDF]; NATURAL RUBBER [HSDB]; NATURAL RUBBER LATEX; SORVA/SORVINHA; RUBBER [WV]; NATURAL LATEX; RUBBER [MART.]; NATURAL RUBBER [WHO-DD]; RUBBER LATEX [id number] Compazine Other See Active [facility] seizure Drug allergy flu vaccines flu vaccines [facility] Drug allergy flu vaccines flu vaccines [facility] Drug allergy flu vaccines flu vaccines [facility] Drug allergy Sulfa Drug allergy itch Active eCW3 ([facility]) Drug allergy Azithromycin Azithromycin Unknown Active eCW3 ([facility]) Drug allergy Penicillin Drug allergy rash Active eCW3 ([facility]) Drug allergy Compazine Drug allergy Unknown Active eCW3 ([facility]) Propensity to latex No known allergies hand rash Active eCW 3 ([place] adverse [facility]uation[facility]) Drug allergy Omeprazole Omeprazole diarrhea, Active eCW3 ([place] muscle ache [facility]) Drug allergy Norvasc Amlodipine Unknown Active eCW3 ([facility]) Drug allergy Lipitor atorvastatin Unknown Active eCW3 ([facility]) Drug allergy Sulfa Drug allergy itch Active eCW3 ([facility]) Drug allergy Penicillin Drug allergy rash Active eCW3 ([facility]) Drug allergy Compazine Drug allergy Unknown Active eCW3 ([facility]) Propensity to latex No known allergies hand rash Active eCW 3 ([place] [facility] reactions Care) Drug allergy Sulfa Drug allergy itch Active eCW3 ([facility]) Drug allergy Penicillin Drug allergy rash Active eCW3 ([facility]) Drug allergy Compazine Drug allergy Unknown Active eCW3 ([facility]) Propensity to latex No known allergies hand rash Active eCW 3 ([place] adverse [facility]uation[facility]) [id number] Aggrenox Unknown Active [facility] [id number] Flonase Unknown Active [facility] [id number] Hydrochlorothiazide Unknown Active [facility] [id number] Metoprolol Unknown Active [facility] [id number] Vasotec Unknown Active [facility] [id number] Kenalog Weal Active [facility] [id number] Enalapril Weal Active [facility] [id number] Norvasc Weal Active [facility] 357082238 [id number] Lipitor Weal Active [facility] [id number] 264093801 sulfacetamide sodium Weal Active [facility] [id number] penicillin Weal Active [facility] Drug allergy Omeprazole Omeprazole diarrhea, Active eCW3 ([place] muscle ache [facility]) Propensity to latex No known allergies hand rash Active eCW 3 ([place] adverse [facility]uation[facility]) Drug allergy Compazine Drug allergy Unknown Active eCW3 ([facility]) Drug allergy Penicillin Drug allergy rash Active eCW3 ([facility]) Drug allergy Sulfa Drug allergy itch Active eCW3 ([facility]) Propensity to latex No known allergies hand rash Active eCW 3 ([place] adverse [facility]uation) [facility]) Drug allergy Compazine Drug allergy Unknown Active eCW3 ([facility]) Drug allergy Penicillin Drug allergy rash Active eCW3 ([facility]) Drug allergy Sulfa Drug allergy itch Active eCW3 ([facility]) Encounters Encounter Providers Location Date Indications Data Source(s ) Outpatient Attender: Xiang 03/14/2020 Luke Banerjee 02:30:00 PM [facility] EDT - 03/14/2020 11:59:00 PM EDT Patient discharged. Inpatient Attender: MD Kellie Al 5T-5T 03/08/2020 ASTHMA & ABD [facility] - Ortiz Perezender: Eddanielle 12:22:00 PM EDT - CATIA Sheppard: Doctor 03/14/2020 Son rodriguez OtherAdmitter: MD Hopkins 03:20:00 PM EDT Mikaela MullinsoConsultant: Cait Degroot ASTHMA & ABD PAIN Patient discharged. Inpatient Attender: OPAL ADAMS 03/03/2020 DYSPHAGIA, [place] MDAttender: Joey 04:47:00 AM EDT UNSPECIFIED Regional Earl MDAdmitter: OPAL Simpson 03/06/2020 [facility] ADAMS MDConsultant: Juan 05:35:00 PM EDT CaseyokConsultant: MARY ADAMS DYSPHAGIA, UNSPECIFIED Patient discharged. Inpatient Attender: MORENO 02/26/2020 DYSPHAGIA, [place] on [place] MDAttender: 07:02:00 PM EDT - UNSPECIFIED Regional [facility] 03/02/2020 [facility] MDAttender: SAMIA U 06:10:00 PM EDT DOAttender: GIOVANNY REYNAGA MDAdmitter: GIOVANNY REYNAGA MDReferrer: OPAL ADAMS MDConsultant: DOM FRANCO MD DYSPHAGIA, UNSPECIFIED Patient discharged. Emergency Attender: MD LEMONttender: 02/26/2020 01:43:39 [facility] EDT - 02/26/2020 Jaylen Vazquez MDAdmitter: Mariia 05:41:00 AM EDT [facility] Laurencezoe LAFLEUR Patient discharged. Inpatient Attender: Physician Hewitt 02/20/2020 01:03:12 PM [facility] Calvin Guillen M.D.Attender: Luis EDT - 02/25/2020 Arturo ADAMS-CAttender: Sidney 01:30:00 PM EDT [facility] SarahiAttender: ERAdmitter: Physician Marcelina Guillen M.D.Pull Through [place]er: Isabel Pedersonultant: Berlin Epperson MD Patient discharged. Outpatient Attender: Alice 02/19/2020 [facility]40[facility] PandyaAdmitter: [place] EDT [facility]) Outpatient Attender: Alice 02/18/2020 12:00:00 [facility] PandyaAdmitter: [place] ED[place]) Outpatient Attender: Xiang Banerjee 02/17/2020 09:15:00 AM [facility] EDT - 02/17/2020 Heart Ce nter 11:59:00 PM EDT Patient discharged. Outpatient 02/16/2020 12:00:00 AM NE [facility] ([facility]) Outpatient Attender: Alice 02/16/2020 12:00:00 AM [facility] ([facility] PandyaAdmitter: [place] EDT [facility]) Outpatient Attender: Physician 02/15/2020 03:00:00 PM [facility] Pedro Dale MD EDT - 02/15/2020 Primar y Care 11:59:00 PM EDT Patient discharged. Outpatient Attender: Taojo ann 02/15/2020 02:46:00 PM [facility] ([facility] PandyaAdmitter: [place] EDT [facility]) Inpatient Attender: Taojo ann 02/15/2020 03:01:10 AM [facility] JonathanAttender: KANALBERTO EDT - 02/19/2020 Arturo JOSEPH DOAttender: Physician 04:53:00 PM EDT [facility] Jaciel Hinton MDAttender: ERAdmitter: Alice CastilloConsultant: SKYLER INTWALA MDConsultant: Jesse MuñozConsultant: Physician Lazaro Lo MDConsultant: Tree BaConsultant: Tree Ba MDConsultant: CASEY JOSEPHConsultant: Berlin Epperson MDConsultant: Physician Aristides Rogers MDConsultant: Reg George Jr., MDConsultant: Reg GeorgeConsultant: Dom Franco MD Patient discharged. Outpatient 02/14/2020 11:48:00 AM EDT - [facility] 02/14/2020 11:59:00 PM EDT Patient discharged. Emergency Attender: Joe Mera 02/13/2020 04:41:00 AM [facility] Attender: EDT - 02/13/2020 Antoinette Vazquez ERAdmitter: Joe Mera 08:40:00 AM EDT Medical Center DO Patient discharged. Emergency Attender: Deacon Worthy 02/11/2020 07:36:00 A M [facility] KATIEttfior: EDT - 02/11/2020 Antoinette Vazquez ERAdmitter: Deacon 09:54:00 AM EDT Medical Center Deacon LAFLEUR Patient discharged. Outpatient 02/09/2020 03:24:00 PM EDT - [facility] 02/09/2020 11:59:00 PM EDT Patient discharged. Unlisted evaluation 02/07/2020 08:05:00 NETSMART (Family and management service PM EDT [facility].) Outpatient Attender: Aristides 02/07/2020 02:15:00 [facility] Sue EDT - 02/07/2020 [facility] 11:59:00 PM EDT Patient discharged. Outpatient Attender: Xiang Banerjee 02/07/2020 11:45:00 AM [facility] EDT - 02/07/2020 11:59:00 [facility] [place] PM EDT Patient discharged. Emergency Attender: Amanuel Yu 02/07/2020 10:37:00 AM [facility] Clotilde: EDT - 02/07/2020 Alicia Vazquez ERAdmitter: Amanuel Yu 11:34:00 AM EDT [facility] PA-C Patient discharged. Emergency Attender: Brie 02/06/2020 02:21:43 PM [facility] Alexx MDAttender: EDT - 02/06/2020 Arturo Vazquez MD ERAdmitter: Brie 07:43:00 PM EDT [facility] [place] Alexx LAFLEUR Patient discharged. Emergency Attender: Elsy May 02/06/2020 06:39:22 AM [facility] - Attender: EDT - 02/06/2020 Antoinette Vazquez ERAdmitter: Elsy May DO 11:24:00 AM EDT Medical Center Patient discharged. Emergency Attender: ROMARIO MEYERS 02/03/2020 06:58:00 AN [facility] MDConsultant: ADÁN AM EDT - 02/03/2020 [facility] SHEIKH MIQUEL 01:35:00 PM EDT ANXIETY Patient discharged. Emergency Attender: Neal Gamino 02/02/2020 01:48:27 [facility] - 02/02/2020 [place] ERAdmitter: Neal 04:40:00 PM EDT [facility] Center Stevenson LAFLEUR Patient discharged. Emergency Attender: Sidney 01/31/2020 07:33:01 N [facility] NicktalAttender: Sidney PM EDT - 02/01/2020 [facility] DelianytalAttender: 04:18:00 AM T [facility] ERAdmitter: Sidney LinnyroseConsultant: Physician Jerrell Hardwick DO Patient discharged. Outpatient Attender: Xiang Banerjee 01/31/2020 07:48:00 AM [facility] EDT - 01/31/2020 11:59:[address] [facility] PM EDT Patient discharged. Outpatient Attender: Clary 12/20/2019 09:14:31 AM [facility] Jean-PierreAdmitter: Clary EDT - 12/20/2019 [facility] 11:59:00 PM EDT Medical enter Patient discharged. Outpatient Attender: Dilia Jordan 12/09/2019 07:57:00 [facility] 12/10/2019 [facility] 11:59:00 PM [facility] Patient discharged. Outpatient Attender: MMVH9 [facility] 11/22/2019 12:27:17 PM [facility]) Patient admitted. Emergency Attender: 10/07/2019 08:55:00 [facility] - ERAdmitter: ER PM EST [facility] [place] [facility] 07/04/2019 12:00:00 e CW3 ([facility] A28 AM EDT - 07/04/2019 [facility] 12:00:00 AM EDT Care) S Attender: Clary 06/23/2019 03:18:00 [facility] Jean-PierreAdmitter: PM EDT [facility] ter Admission cancelled. Disregard status an d admitted date. S Attender: Clary 05/30/2019 09:39:00 [facility] Jean-PierreAdmitter: Clary Morejon T [facility] Admission cancelled. Disregard status an d admitted date. Outpatient [facility] 05/14/2019 eCW3 ([facility] A28 12:00:00 AM EDT - [facility] 05/14/2019 Care) 12:00:00 AM EDT ([place] Laura) [facility] 04/12/2019 eC W3 ([facility] A28 12:00:[address] [facility] 04/12/2019 Care) 12:00:00 AM EDT S Attender: Clary 04/08/2019 [facility] Jean-PierreAdmitter 12:14:35 PM EDT [facility]ary [facility] Admission cancelled. Disregard status an d admitted date. S Attender: Physician Rafael 03/15/2019 09:02:16 AM EDT [facility] Cassy MDAdmitter: Physician [facility] Rafael Madera MD Admission cancelled. Disregard status an d admitted date. Outpatient Attender: Physician 03/11/2019 11:48:42 AM [facility] Rafael Madera MDAdmitter: EDT - 03/15/2019 [facility] Rafael Madera 11:59:59 PM EDT [facility] Patient discharged. S 01/29/2019 03:32:02 [facility] - EDT [facility] Outpatient Attender: Darrel 01/07/2019 08:56:41 [facility] Efrain MDAdmitter: AM EDT - 01/07/2019 Arturomoses Zuniga MD 11:59:59 PM [facility] 01/06/2019 12:00:00 e CW3 ([facility] A28 AM EDT - 01/06/2019 [facility] 12:00:00 AM EDT Care) Emergency Attender: 12/02/2018 01:01:00 [facility] ERAttender: PM EST - 12/08/2018 Antoinette Gamino 10:50:00 AM EST [facility] MDAttender: Physician Asim Troncoso MDAdmitter: ERConsultant: Xiang BanerjeeConsultant: Jesse MuñozConsultant: Jayro Carrasquillo MDConsultant: JUAN MANUEL MOHANonsultant: Tara MaloneyConsult ant: Darrel Zuniga MDConsultant: Physician Amanuel Lackey MDConsultant: Physician Jewell [place] MDConsultant: Silas TrevizomConsultant: Physician Silas [place] MDConsultant: Clari Lo MD Outpatient [facility] 11/25/2018 12:00:00 e CW3 ([facility] A28 AM EST - 11/25/2018 [facility] 12:00:00 AM EST Care) Emergency Attender: 11/21/2018 05:23:00 [facility] - ERAttender: Luis AM EST - 11/21/2018 Arturo Vazquez [facility] 09:30:00 AM EST Medical C enter PA-CAdmitter: ER Emergency Attender: 11/17/2018 03:35:00 [facility] - ERAttender: Daniel PM EST - 11/17/2018 House Traceeole Nomiguelina MDAdmitter: 06:40:00 PM [facility] ER Immunizations Vaccine Date Status Description Data Source(s) New in 2011. completed influenza, injectable, quadr ivalent, preservative free Not Administered [facility] IIV[facility] System Comments: patient stated she allergic re action to previous flu shot. Patient was offered Flu Blok but refused both.Not Ad ministered Reason: .Refusal Medications Medication Brand Start Product Dose Route Administrative [facility] Center Indications Reaction Description Data Name Date Form Instructions Instructions Source(s) Prednisone predni [id number] active Predni SONE [facility] 20 MG Oral SONE 2019 {tab( Health Tablet 20 mg 01:35: s)} System predniSONE oral 56 PM 20 mg oral tablet EDT tablet Ondansetron Zofran [id number] active Zofra n [facility] 4 MG Oral 4 mg 2019 {tab( Health Tablet oral 01:23: s)} System [Zofran] tablet 00 PM Zofran 4 mg EDT oral tablet Prednisone predni [id number] aborted Predn iSONE [facility] 20 MG Oral 2019 {tab( Health Tablet 20 mg 01:21: s)} System predniSONE oral 09 PM 20 mg oral tablet EDT tablet 24 HR dilTIAZem 03/14/2020 1 [id number] active dilTIAZem 360 mg/24 hours oral capsule, extended release; 1 cap(s) orally once a day Ordered: 14-Mar-2020 Start: 14-Mar-2020 [facility] Diltiazem 360 mg/24 01:11:05 PM {cap(s)} Quantity: 0 [facility] Hydrochloride hours oral EDT Refil ls: 0 System 360 MG capsule, Extended extended Release Oral release Capsule dilTIAZem 360 mg/24 hours oral capsule, extended release buspirone busPIRone 03/14/2020 1 [id number] active busPIRone 15 mg oral tablet; 1 tab(s) orally 3 times a day Ordered: 14-Mar-2020 Start: 14-Mar-2020 [facility] hydrochloride 15 mg oral 01:10:15 PM {tab(s)} Quantity: 0 [facility] 15 MG Oral tablet EDT Refills: 0 System Tablet busPIRone 15 mg oral tablet potassium [id number] 02/26/2020 20.0 Oral Nu noriega chloride 20 05:24:00 AM meq 20 mEq, = 15 mL, Oral, Daily, # 600 mL, 0 Refill(s), Pharmacy: [facility] 15 mL Oral Daily Health - mEq/15 mL EDT House oral liquid [facility] Loratadine 1 Claritin 5 02/26/2020 10.0 mg Oral [place] MG/ML Oral mg/5 mL 05:24:00 AM 10 mg, = 10 mL, Oral, Daily, # 100 mL, 0 Refill(s), Pharmacy: [facility] 10 mL Oral Daily,x10 day(s) Health - Solution oral syrup EDT [place] Claritin 5 Brothers mg/5 mL oral Medical syrup [place] Diltiazem diltiazem 02/25/2020 120.0 Oral [place] Hydrochloride 120 mg 12:10:00 PM mg 120 mg, = 1 tab, Oral, Once, # 1 tab, 0 Refill(s), Pharmacy: [facility]/pharmacy #[id number], 1 tab Oral Once Health - 120 MG Oral oral EDT Arturo Tablet tablet [place] diltiazem 120 Medica l mg oral Center tablet pantoprazole Protonix 02/24/2020 40.0 mg Oral [place] 40 MG Delayed 40 mg oral 04:50:00 PM 40 mg, = 1 tab, Oral, BID, # 28 tab, 0 Refill(s), Pharmacy: [facility]/pharmacy #[id number], 1 tab Oral BID,x14 day(s) Health - Release Oral delayed EDT Antoinette ar Tablet release [place] Protonix 40 tablet Medica l mg oral Center delayed release tablet aspirin [id number] 02/20/2020 Chew 81.0 mg Oral N uvance 05:24:00 PM able 81 mg, Oral, Daily, 0 Refill(s) Health - EDT Tabl House et [facility] nitroglycerin [id number] 02/20/2020 1.0 Topical [place] 0.6 mg/hr 05:23:00 PM = 1 patc h(es), TOP, Daily, 0 Refill(s) Health - transdermal EDT Arturo film, [place] extended Medical release [place] Ondansetron 4 ondansetro 02/20/2020 4.0 mg Oral [place] MG n 4 mg 05:22:00 PM 4 mg, = 1 tab, Oral, TID, 0 Refill(s), allow tablet to dissolve on tongue Health - Disintegratin oral EDT Arturo g Oral Tablet tablet, Bro thers ondansetron 4 disintegra Medical mg oral ting Center tablet, disintegratin g Lorazepam 1 lorazepam 02/20/2020 1.0 mg Oral [place] MG Oral 1 mg oral 05:22:00 PM 1 mg, = 1 tab, Oral, Daily, 0 Refill(s), as needed for anxiety Health - Tablet tablet EDT Arturo lorazepam 1 [place] mg oral Medical tablet [place] Alprazolam Xanax 0.25 02/19/2020 Tabl 0.25 mg Oral [place] 0.25 MG Oral mg oral 03:56:00 PM et 0.25 mg, = 1 tab, Oral, TID, # 7 tab, 0 Refill(s), Pharmacy: [facility]/pharmacy #[id number], 1 tab Oral TID Health - Tablet Xanax tablet EDT [place] r 0.25 mg oral [facility] Pantoprazole [id number] 02/15/2020 40.0 mg Oral [place]uv[place] 06:54:00 AM 40 mg, Oral, BID, 0 Refill(s) [facility] metoclopramid [id number] 02/15/2020 10.0 mg Oral Nuvance e 06:54:00 AM 10 mg, Oral, TID, 0 Refill(s) [facility] Centrum oral [id number] 02/15/2020 Oral Nuvance liquid 06:54:00 AM 1 dose, Ora l, Daily, 0 Refill(s) [facility] simvastatin [id number] 02/15/2020 40.0 mg Oral Nuv[place] 06:54:00 AM 40 mg, Oral, QHS, 0 Refill(s) [facility] Sertraline 25 Zoloft 02/15/2020 1.0 Oral acti NETSMART MG Oral 04:00:00 AM Tablet ve (Fa julian Tablet EDT Services, [Zoloft] Inc[employer] Diazepam 2 MG Valium 02/15/2020 2.0 Oral acti NETSMART Oral Tablet 04:00:00 AM Tablet ve (Family [Valium] EDT [employer] Diazepam 2 MG Valium 2 02/11/2020 2.0 mg Oral [place] Oral Tablet mg oral 09:05:00 AM 2 mg, = 1 tab, Oral, QID, # 12 tab, 0 Refill(s), Spasm, Pharmacy: [facility]/pharmacy #[id number], 1 tab Oral QID,x3 day(s),PRN:Spasm Health - Valium 2 mg tablet EDT House oral tablet [facility] Losartan losartan 02/07/2020 25.0 mg Oral [place] Potassium 25 25 mg oral 03:36:00 PM 25 mg, = 1 tab, Oral, Daily, # 90 tab, 1 Refill(s), Pharmacy: [facility]/pharmacy #[id number], 1 tab Oral Daily Health - MG Oral tablet EDT Arturo Tablet [place] losartan 25 Medical mg oral Center tablet Propranolol propranolo 02/07/2020 10.0 mg Oral [place] Hydrochloride l 10 mg 02:40:00 PM 10 mg, = 1 tab, Oral, BID, # 60 tab, 0 Refill(s), Pharmacy: [facility]/pharmacy #[id number], 1 tab Oral BID Health - 10 MG Oral oral EDT House Tablet tablet [place] propranolol Medical 10 mg oral Center tablet lansoprazole lansoprazo 02/06/2020 30.0 mg Oral Nuvance 30 MG le 30 mg 06:18:00 PM 30 mg, = 1 tab, Oral, Daily, # 7 tab, 0 Refill(s), Pharmacy: [facility]/pharmacy #[id number], 1 tab Oral Daily Health - Disintegratin oral EDT House g Oral Tablet tablet, Bro thers lansoprazole disintegra M edical 30 mg oral ting Center tablet, disintegratin g Ondansetron 4 Zofran ODT 02/06/2020 4.0 mg Oral [place] MG 4 mg oral 06:16:00 PM 4 mg, = 1 tab, Oral, TID, # 10 tab, 0 Refill(s), Nausea/Vomiting, Pharmacy: [facility]/pharmacy #[id number], 1 tab Oral TID,PRN:Nausea/Vomiting Health - [...] take wit other benzodiazepoimes, or alcohol, Pharmacy: [facility]/pharmacy #[id number], 2 tab Oral BID,x3 day(s),PRN:for anxiety,I Health - Valium 2 mg tablet EDT n str:only if needed. do not take wit other benzo... House oral tablet [facility] Sucralfate Carafate 1 02/01/2020 1.0 g Oral [place] 100 MG/ML g/10 mL 03:53:00 AM 1 gm, = 10 mL, Oral, QID, X 10 day(s), # 400 mL, 0 Refill(s), Pharmacy: [facility]/pharmacy #[id number], 10 mL Oral QID,x10 day(s) Health - Oral oral EDT Arturo Suspension suspension Bro thers Carafate 1 Medical g/10 mL oral Center suspension Azithromycin Zithromax 01/31/2020 12.5 acti Z ithromax 200 eCW3 40 MG/ML Oral 200 MG/5ML 12:00:00 AM {ml} ve MG/5ML (Witt Suspension EDT [place] [Zithromax] [facility] Zithromax 200 Care) MG/5ML Azithromycin Zithromax 01/31/2020 12.5 acti Z ithromax 200 eCW3 40 MG/ML Oral 200 MG/5ML 12:00:00 AM {ml} ve MG/5ML (Witt Suspension EDT [place] [Zithromax] [facility] Zithromax 200 Care) MG/5ML Azithromycin Zithromax 01/31/2020 12.5 acti Z ithromax 200 eCW3 40 MG/ML Oral 200 MG/5ML 12:00:00 AM {ml} ve MG/5ML (Witt Suspension EDT [place] [Zithromax] [facility] Zithromax 200 Care) MG/5ML Losartan losartan 01/23/2020 25.0 mg Oral [place] Potassium 25 25 mg oral 02:01:00 PM 25 mg, = 1 tab, Oral, Daily, # 30 tab, 0 Refill(s), Pharmacy: [facility]/pharmacy #[id number], 1 tab Oral Daily Health - MG Oral tablet EDT Arturo Tablet Brothers losartan 25 Medical mg oral Center tablet Cholecalcifer Vitamin D3 01/23/2020 2000.0 Oral [place] ol 1999 UNT 1999 intl 09:02:00 AM [iU] 2,000 IntUnit, = 1 tab, Oral, Daily, 0 Refill(s) Health - Oral Tablet units oral EDT Va ssar Vitamin D3 tablet Brother s 1999 intl Medical units oral Center tablet Cholecalcifer Vitamin D 01/18/2020 1.0 acti Vitamin D 50 eCW3 ol 1999 UNT 50 MCG 12:00:00 AM {tablet ve M CG (1999 UT) (Witt Oral Tablet (1999) EDT } Claire er Vitamin D 50 Health MCG (1999) Care) Cholecalcifer Vitamin D 01/18/2020 1.0 acti Vitamin D 50 eCW3 ol 1999 UNT 50 MCG 12:00:00 AM {tablet ve M CG (1999 UT) (Witt Oral Tablet (1999) EDT } Claire er Vitamin D 50 Health MCG (1999 UT) Care) Cholecalcifer Vitamin D 01/18/2020 1.0 acti Vitamin D 50 eCW3 ol 1999 UNT 50 MCG 12:00:00 AM {tablet ve M CG (1999 UT) (Witt Oral Tablet (1999 UT) EDT } Claire er Vitamin D 50 Health MCG (1999 UT) Care) 120 ACTUAT Flovent 10/11/2019 1.0 acti [...] TID, # 22 tab, 0 Refill(s), Pharmacy: [facility]/pharmacy #[id number], 2 tab Oral TID,x7 day(s) Health - Tablet tablet EST Arturo Robaxin-750 [facility] tablet [facility] Lidoderm 5% [id number] 10/08/2019 1.0 Topical [place] topical film 05:19:00 AM 1 patch(es), TOP, Daily, # 30 patch(es), 0 Refill(s), Pain, Pharmacy: [facility]/pharmacy #[id number], 1 patch(es) TOP Daily,x7 day(s),PRN:Pain Health - EST [facility] Ibuprofen 600 ibuprofen 10/08/2019 600.0 Oral Nuvance MG Oral 600 mg 05:19:00 AM mg 600 mg, = 1 tab, Oral, q6hr (specified start), # 21 tab, 0 Refill(s), for pain, Pharmacy: [facility]/pharmacy #[id number], 1 tab Oral q6hr (specified start),PRN:for pain Health - Tablet oral EST Arturo ibuprofen 600 tablet Brot hers mg oral Medical tablet Center Vitamin D UNK 07/13/2019 acti Vitamin D eCW3 (Ergocalcifer 12:00:00 AM ve (Erg ocalcifer (Witt ol) [id number] EDT ol) [id number] [place] [facility]) Albuterol Albuterol [...] as needed Health - Hydrochloride tablet EDT Antoinette ar 25 MG Oral [facility] Medical Diphenhist 25 Center mg oral tablet lansoprazole [id number] 04/01/2019 30.0 mg Oral [place] 30 mg oral 03:21:00 PM 30 mg, = 1 cap, Oral, Daily, 0 Refill(s) Health - delayed EDT Arturo release [facility] simvastatin [id number] 04/01/2019 Tabl 40.0 mg Oral Nuvance 03:21:00 PM et 40 mg, Oral, Daily, 0 Refill(s) [facility] buspirone busPIRone 04/01/2019 15.0 mg Oral [place] hydrochloride 15 mg oral 03:21:00 PM 15 mg, = 1 tab, Oral, TID, 0 Refill(s) Health - [facility] Medical mg oral Center tablet aspirin [id number] 03/11/2019 Chew 81.0 mg Oral N uvance 09:59:00 AM able 81 mg, Oral, Daily, 0 [facility] Ventolin HFA [id number] 03/11/2019 2.0 Inhalati [place] 09:59:00 AM on 2 puff(s), IN H, QID, 0 Refill(s) [facility] Claritin 5 Claritin 5 01/06/2019 acti Cl aritin 5 eCW3 MG/5ML MG/5ML 12:00:00 AM ve MG/5ML ([facility]) Claritin 5 Claritin 5 01/06/2019 acti Cl aritin 5 eCW3 MG/5ML MG/5ML 12:00:00 AM ve MG/5ML ([facility]) Claritin 5 Claritin 5 01/06/2019 acti Cl aritin 5 eCW3 MG/5ML MG/5ML 12:00:00 AM ve MG/5ML ([facility]) Claritin 5 Claritin 5 01/06/2019 acti Cl aritin 5 eCW3 MG/5ML MG/5ML 12:00:00 AM ve MG/5ML ([facility]) Simethicone simethicon 12/08/2018 Oral 40.0 mg Oral N[place] 66.7 MG/ML e 40 10:26:00 AM Solu 40 mg, = 0.6 mL, Oral, TID, X 5 day(s), # 30 mL, 0 Refill(s), Gas, Pharmacy: [facility]/pharmacy #[id number], 0.6 mL Oral TID,x5 day(s),PRN:Gas Health - Oral mg/0.6 mL EST tion Arturo Suspension oral Brothers simethicone liquid Medica l 40 mg/0.6 mL Center oral liquid POLYETHYLENE polyethyle 12/08/2018 17.0 g Oral [place] GLYCOL 3350 ne glycol 10:26:00 AM 17 gm =, Oral, Daily, X 12 day(s), # 12 EA, 0 Refill(s), Pharmacy: [facility]/pharmacy #[id number], 17 gm Oral Daily,x12 day(s) Health - 142 MG/ML 3350 oral EST [place] r Oral Solution powder for Brothers polyethylene reconstitu M edical glycol 3350 tion Center oral powder for reconstitutio n pantoprazole Protonix 12/08/2018 Pack 40.0 mg Oral [place] 40 MG Oral 40 mg oral 08:55:00 AM et 40 mg, = 1 EA, Oral, BID, # 60 abs, 0 Refill(s), [id number] 1 EA Oral BID,x30 day(s) Health - Granules granule, EST House Protonix 40 enteric Broth ers mg oral coated Medical granule, [place] enteric coated Metoclopramid Reglan 10 12/08/2018 Tabl 10.0 mg Oral Nuvance e 10 MG Oral mg oral 08:55:00 AM et 10 mg, = 1 tab, Oral, Before meals, X 30 day(s), # 90 tab, 0 Refill(s), Pharmacy: [facility]/pharmacy #[id number], 1 tab Oral Before meals,x30 day(s) Health - Tablet Reglan tablet EST [place] ar 10 mg oral Brothers tablet Medical Center Blood Blood 11/25/2018 acti Blood eCW3 Pressure Pressure 12:00:00 AM ve Press ure ([employer] - Monitor - EST [facility]) Blood Blood 11/25/2018 acti Blood eCW3 Pressure Pressure 12:00:00 AM ve Press ure ([employer] Monitor - Monitor - EST Monitor [facility]) Blood Blood 11/25/2018 acti Blood eCW3 Pressure Pressure 12:00:00 AM ve Press ure ([employer] Monitor - EST [facility]) Nebulizer - Nebulizer 11/25/2018 acti Ne bulizer - eCW3 - 12:00:00 AM ve ([facility]) Nebulizer - Nebulizer 11/25/2018 acti Ne bulizer - eCW3 - 12:00:00 AM ve ([facility]) Nebulizer - Nebulizer 11/25/2018 acti Ne bulizer - eCW3 - 12:00:00 AM ve ([facility]) Blood Blood 11/25/2018 acti Blood eCW3 Pressure Pressure 12:00:00 AM ve Press ure ([place] Monitor - Monitor - EST [facility]) Nebulizer - Nebulizer 11/25/2018 acti Ne bulizer - eCW3 - 12:00:00 AM ve ([facility]) Nebulizer - Nebulizer 11/25/2018 acti Ne bulizer - eCW3 - 12:00:00 AM ve ([facility]) Blood Blood 11/25/2018 acti Blood eCW3 Pressure Pressure 12:00:00 AM ve Press ure ([place] Monitor - Monitor - EST [facility]) Prednisone 20 predniSONE 11/21/2018 40.0 mg Oral Nuvance MG Oral 20 mg oral 09:17:00 AM 40 mg, = 2 tab, Oral, Daily, X 5 day(s), # 10 tab, 0 Refill(s), with food or milk, Pharmacy: [facility]/pharmacy #[id number], 2 tab Oral Daily,x5 day(s),Instr:with food or milk Health - Tablet tablet EST House predniSONE 20 Brothe rs mg oral Medical [...] Oral 10 mg 12:00:00 AM ende mg ([facility] Tablet [facility] [[facility]] [address]) mg Prednisone 50 predniSONE 01/10/2018 50.0 mg Oral Nuvance MG Oral 50 mg oral 08:46:00 PM 50 mg, = 1 tab, Oral, Daily, # 5 tab, 0 Refill(s), Pharmacy: [facility]/pharmacy #[id number], 1 tab Oral Daily,x5 day(s) Health - Tablet tablet [facility] Arturo predniSONE 50 Bro[place] rs mg oral Medical tablet [place] Nitroglycerin Nitroglyce 12/22/2017 acti Nitroglycerin eCW3 0.6 MG/HR rin 0.6 12:00:00 AM ve 0.6 M G/HR (Witt MG/HR [facility]) Nitroglycerin Nitroglyce 12/22/2017 acti Nitroglycerin eCW3 0.6 MG/HR rin 0.6 12:00:00 AM ve 0.6 M G/HR (Witt MG/HR [facility]) Nitroglycerin Nitroglyce 12/22/2017 acti Nitroglycerin eCW3 0.6 MG/HR rin 0.6 12:00:00 AM ve 0.6 M G/HR (Witt MG/HR [facility]) Nitroglycerin Nitroglyce 12/22/2017 acti Nitroglycerin eCW3 0.6 MG/HR rin 0.6 12:00:00 AM ve 0.6 M G/HR (Witt MG/HR [facility]) Nitroglycerin Nitroglyce 12/22/2017 acti Nitroglycerin eCW3 0.6 MG/HR rin 0.6 12:00:00 AM ve 0.6 M G/HR (Witt MG/HR [facility]) Vitamin D Vitamin D 11/17/2017 susp Rachel min D eCW3 2000 UNIT 2000 UNIT 12:00:00 AM ende 200 0 UNIT ([facility]) lansoprazole [id number] 09/22/2017 30.0 mg Oral N[place] 30 mg oral 02:11:00 PM 30 mg, = 1 cap, Oral, Daily, # 30 cap, 0 Refill(s), Pharmacy: [facility]/pharmacy #[id number], 1 cap Oral Daily Health - delayed EST House release [facility] 24 HR diltiazem 09/22/2017 360.0 Oral Nu noriega Diltiazem 360 mg/24 02:11:00 PM mg 360 mg, = 1 cap, Oral, Daily, # 30 cap, 0 Refill(s), [id number] 1 cap Oral Daily Health - Hydrochloride hours oral EST Arturo 360 MG capsule, [place] Extended extended Medical Release Oral release Cent er Capsule diltiazem 360 mg/24 hours oral capsule, extended release Albuterol albuterol 09/22/2017 2.5 mg Nebulize [place] 0.83 MG/ML 2.5 mg/3 02:11:00 PM d 2.5 mg, = 3 mL, NEB, q6hr (specified start), # 25 EA, 0 Refill(s), for wheezing, Pharmacy: [facility]/pharmacy #[id number], 3 mL NEB q6hr (specified start),PRN:for wheezing Health - Inhalant mL EST inhalati Arturo Solution (0.083%) on [facility] albuterol 2.5 inhalation Medical mg/3 mL solution Center (0.083%) inhalation solution nitroglycerin [id number] 09/22/2017 1.0 Topical [place] 0.6 mg/hr 02:10:00 PM = 1 patch(es), TOP, Daily, # 30 patch(es), 0 Refill(s), Pharmacy: [facility]/pharmacy #[id number], 1 patch(es) TOP Daily Health - transdermal EST House film, [facility] Medical release [place] buspirone busPIRone 09/08/2017 1 [id number] abor Bu sPIRone [facility] hydrochloride 15 mg [...] action of this medication. BuSpar 09/08/2017 15 [id number] aborted BuSpar; 15 milligram(s) orally 3 times a day, As Needed for anxiety Ordered: 08-Sep-2017 Start: 08-Sep-2017 End: 08-Oct-2017 [facility] 12:07:52 PM mg Quantity: 60 Fernandez Chiki Status: Discontinued Health EST Refills: 0 System Ibuprofen ibuprofen 09/08/2017 1 [id number] aborted Ibuprofen [facility] 600 MG Oral 600 [...] or milk. Prednisone 20 Deltasone 09/07/2017 2 [id number] aborted Deltasone [facility] MG Oral 20 mg [...] food or milk. Azithromycin Zithromax 07/17/2017 1 [id number] completed Zithromax [facility] 250 MG Oral 250 mg 10:15:37 AM {tab(s)} Health Tablet oral EDT System [Zithromax] tablet Zithromax 250 mg oral tablet Do not take dairy products, antacids, or iron preparations within one hour of this medication.Finish all this medication un less otherwise directed by prescriber. 24 HR Nitro-Dur 07/17/2017 1 [id number] aborted Nitro-Dur 0.6 mg/hr transdermal film, extended release; 1 patch transdermally once a day Ordered: 17-Jul-2017 Start: 17-Jul-2017 End: 13-Nov-2017 [facility] Nitroglycerin 0.6 mg/hr 10:12:05 AM {PATCH} Quantity: 30 Lexx, Itha Status: Discontinued Health 0.6 MG/HR transdermal EDT [...] a new patch. lansoprazole lansoprazole 07/17/2017 1 R07470 active Lansoprazole [facility] 30 MG Delayed 30 mg oral 10:11:55 AM {cap(s)} Health Release Oral delayed EDT Syst em Capsule release lansoprazole capsule 30 mg oral delayed release capsule 24 HR DilTIAZem 07/17/2017 1 [id number] aborted Dil TIAZem [facility] Diltiazem Hydrochloride 10:11:44 [...] Do not crush. Diphenhydramine Benadryl 07/17/2017 1 Q86256 active Benadryl [facility] Hydrochloride 25 25 mg 10:11:25 AM {cap(s)} Health MG Oral Capsule oral EDT Syst em [Benadryl] capsule Benadryl 25 mg oral capsule May cause drowsiness. Alcohol may inten sify this effect. Use care when operating dangerous machinery.Obtain medical advic e before taking any non-prescription drugs as some may affect the action of this medic ation. Aspirin Aspirin 07/17/2017 1 [id number] aborted Aspirin Enteric Coated 81 mg oral [...] milk. Simvastatin Zocor 40 07/17/2017 1 {tab(s)} X01960 active Zocor [facility] 40 MG Oral mg [...] with food or mil k. Ventolin HFA [id number] 07/17/2017 2 U45607 active Ventolin [facility] 90 mcg/inh 10:10:35 AM [...] use . Albuterol albuterol 07/07/2017 3 mL [id number] aborted Albuterol [facility] 0.83 MG/ML 2.5 mg/3 mL 10:03:08 AM Sulfate Health Inhalant (0.083%) EDT System Solution inhalation albuterol solution 2.5 mg/3 mL (0.083%) inhalation solution For inhalation only.It is very important that you take or use this exactly as directed. Do not skip doses or disconti nue unless directed by your doctor.Obtain medical advice before taking any non-pre scription drugs as some may affect the action of this medication. montelukast montelukast 07/07/2017 1 G79341 active Singulair [facility] 10 MG Oral 10 mg oral 09:51:14 AM {tab(s)} Health Tablet tablet EDT System montelukast 10 mg oral tablet It is very important that you take or us e this exactly as directed. Do not skip doses or discontinue unless directed by your doctor. Azithromycin Azithromycin 07/07/2017 1 L16395 aborted Azithromycin [facility] 500 MG Oral 3 [...] prescriber. Codeine Phosphate 2 promethazine-codeine 06/26/2017 10 Q90228 active promethazine-codeine 6.25 mg-10 mg/5 mL oral syrup; 10 milliliter(s) orally every 6 hours Ordered: 07-Jul-2017 Start: 26-Jun-2017 End: 12-Jul-2017 Marino mike MG/ML / Promethazine 6.25 mg-10 mg/5 mL 10:45:12 AM mL Quantity: 200 Iftikhar- Lópezgordonpema, Raymon Generic Substitution Allowed Health Hydrochloride 1.25 oral [...] intensify this effect. Use care when operating [employer] ([employer]).Obtain medical advice before taking any non-prescription drugs as callie e may affect the action of this medication. benzonatate benzonatate 06/26/2017 1 J60005 aborted benzonatate 100 mg oral capsule; 1 cap(s) orally 3 times a day, As Needed -PRN COUGH Ordered: 07-Jul-2017 Start: 26-Jun-2017 [facility] 100 MG Oral 100 mg oral 10:08:39 AM {cap(s)} Quantity: 21 Raymon Hays Status: Discontinued Health Capsule capsule EDT Refills: 3 Generic Substitution Allowed System benzonatate 100 mg oral capsule May cause drowsiness. Alcohol may inten sify this effect. Use care when operating dangerous machinery.Swallow whole. Do n ot crush. Azithromycin azithromycin 06/26/2017 5 [id number] completed Azithromycin [facility] 40 MG/ML Oral 200 mg/5 mL 10:04:30 AM mL Health Suspension oral liquid EDT Sy stem azithromycin 200 mg/5 mL oral liquid Do not take dairy products, antacids, or iron preparations within one hour of this medication.Expires Fin marilyn all this medication unless otherwise directed by prescriber.Shake well before use. Bisacodyl 5 bisacodyl 5 05/21/2017 1 R77000 completed Bisacodyl [facility] MG Delayed mg oral 11:27:30 AM {tab(s)} Health Release delayed EDT System Oral Tablet release bisacodyl 5 tablet mg oral delayed release tablet Swallow whole. Do not crush. POLYETHYLENE GoLYTELY oral 05/21/2017 240 [id number] completed GoLYTELY [facility] GLYCOL 3350 59 powder [...] your doctor. hydrocortisone Anusol-HC 25 05/14/2017 1 [id number] completed Anusol-HC [facility] acetate 25 MG mg rectal 12:53:32 PM {SUPP(s)} Health Rectal suppository EDT System Suppository [Anusol HC] Anusol-HC 25 mg rectal suppository For rectal use only.Keep in refrigerator . Do not freeze. 24 HR nitroglycerin 05/14/2017 1 [id number] completed nitroglycerin 0.6 mg/hr transdermal film, extended release; 1 patch transdermal once a day Ordered: 14-May-2017 Start: 14-May-2017 End: 11-Aug-2017 [facility] Nitroglycerin 0.6 mg/hr 12:03:48 PM {PATCH} Quantity: 30 Jorgito Leslie Status: Completed Health 0.6 MG/HR transdermal [...] a new patch. Hydrocortisone Anusol-HC 05/14/2017 1 R92115 complet ed Anusol-HC 2.5% topical cream; Apply topically to affected area 2 times a day Ordered: 07-Jul-2017 Start: 14-May-2017 End: 06-Aug-2017 [facility] 25 MG/ML 2.5% 11:53:42 AM {sheri} Quantity : 1 Raymon Hays Status: No Longer Active Health Topical Cream topical EDT Refills: 0 Generic Substitution Allowed System Anusol-HC 2.5% cream topical cream For external use only. Docusate Diocto 10 05/14/2017 10 mL R52492 active Diocto [facility] Sodium 10 mg/mL 11:52:26 AM He alth System MG/ML Oral oral EDT Suspension liquid Diocto 10 mg/mL oral liquid Medication should be taken with plenty o f water. Azithromycin Azithromycin 04/17/2017 1 [id number] comple nayeli Azithromycin 5 Day Dose Pack; 1 tab(s) orally once a day use as instructed; first day 2 tabs Ordered: 17-Apr-2017 Start: 17-Apr-2017 End: 22-Apr-2017 [facility] Azithromycin 5 Day Dose 09:42:54 AM {tab(s)} Quantity: 6 Chiki Fernandez Status: No Longer Active Health 5 Day Dose Pack EDT Refills: 0 System Pack Acetaminophen Tylenol 325 04/04/2017 2 C98456 aborte d Tylenol 325 mg oral tablet; [...] possible liver damage. doxycycline doxycycline 04/04/2017 1 [id number] aborted Vibramycin [facility] hyclate 100 hyclate 100 [...] water. Ibuprofen IBU 400 03/05/2017 1 {tab(s)} [id number] aborted IBU [facility] 400 MG Oral mg [...] this medication.Take with food or milk. albuterol [id number] 03/05/2017 2 I20395 aborted Proventil [facility] free 90 11:36:02 AM {puff(s)} H FA Health mcg/inh EDT System inhalation aerosol Cyclobenzap cyclobenzapr 02/25/2017 1 {tab(s)} G84611 aborte d Cyclobenza [facility] rine ine 10 [...] this medic ation. Ibuprofen ibuprofen 01/30/2017 1 [id number] completed ibuprofen 400 mg oral tablet; 1 tab(s) orally 3 times a day, As Needed - PRN PAINtake with food Ordered: 30-Jan-2017 Start: 30-Jan-2017 End: 09-Feb-2017 [facility] 400 MG 400 mg 02:51:14 PM {tab(s)} Quant ity: 30 Nakul Escamilla Status: No Longer Active Health Oral oral [...] food or milk. Diphenhydramine diphenhydrAMINE 01/30/2017 1 [id number] completed DiphenhydrAMINE [facility] Hydrochloride 50 50 mg [...] ation. Albuterol 0.833 MG/ML ipratropium-albuterol 01/30/2017 3 [id number] completed ipratropium-albuterol 0.5 mg-2.5 mg/3 mLinhalation solution; 3 milliliter(s) inhaled 4 times a day as needed Ordered: 30-Jan-2017 Start: 30-Jan-2017 End : 06-Feb-2017 [facility] / Ipratropium [place] 0.5 mg-2.5 mg/3 02:50:27 PM mL Quantity: [...] of this medication. Meclizine meclizine 11/27/2016 1 [id number] completed meclizine 25 mg oral tablet; 1 tab(s) orally 2 times a day, As Needed for dizziness Ordered: 27-Nov-2016 Start: 27-Nov-2016 End: 26-Mar-2017 [facility] Hydrochloride 25 mg oral 05:14:06 PM {tab(s)} Quantity: 60 Kongara, Toan Status: No Longer Active Health 25 MG Oral tablet EST Refills: 3 Generic Substitution Allowed System Tablet meclizine 25 mg oral tablet May cause drowsiness. Alcohol may inten sify this effect. Use care when operating dangerous machinery. Cholecalciferol Aqueous 11/27/2016 3 K96973 completed Aqueous [facility] 400 UNT/ML Oral Vitamin D 05:13:57 PM mL Vitamin D Health Solution Aqueous 400 intl EST System Vitamin D 400 units/mL intl units/mL oral liquid oral liquid Multivitamin Multiple 11/27/2016 10 [id number] completed Vi-Sunitha [facility] preparation Vitamins 05:13:48 PM mL Health Multiple Vitamins oral liquid EST System oral liquid Calcium Carbonate Calcium 11/27/2016 1 [id number] completed Calcium [facility] 1250 MG Oral Oyster 05:09:08 PM {ta Oys ter Health Tablet Calcium Shell 1250 EST b(s Sandy l System Oyster Shell 1250 mg (500 mg )} mg (500 mg elemental elemental calcium) calcium) oral oral tablet tablet Budesonide 0.16 Symbicort 11/27/2016 2 [id number] completed Symbicort [facility] MG/ACTUAT / 160 mcg-4.5 05:08:53 PM {pu Health formoterol mcg/inh EST ff( System fumarate 0.0045 inhalation s)} MG/ACTUAT Metered aerosol Dose Inhaler Symbicort 160 mcg-4.5 mcg/inh inhalation aerosol Check with your doctor before becoming p regnant.For inhalation only.Rinse mouth thoroughly after use. lansoprazole lansoprazole 11/27/2016 1 [id number] completed Lansoprazole [facility] 30 MG Delayed 30 [...] by your doctor. Simvastatin simvastatin 11/27/2016 1 [id number] completed Simvastatin [facility] 40 MG Oral 40 [...] k. 24 HR Minitran 0.6 11/27/2016 1 [id number] completed Minitran [facility] Nitroglycerin mg/hr 05:08:26 PM [...] new patch. 24 HR Cardizem 11/27/2016 1 [id number] completed Ca rdizem [facility] Diltiazem CD 360 [...] not crush. Cholecalciferol Mathur D 11/27/2016 0.027 [id number] aborted Mathur [facility] 86041 UNT/ML Oral 1000 intl 05:08:04 PM mL D Health Solution Mathur units/drop EST System D 1000 intl oral units/drop oral solution solution Multi-Delyn [id number] 11/27/2016 5 R46069 complete d Multi-Delyn oral liquid; 5 milliliter(s) orally once a dayDispense 16 oz bottle Ordered: 27-Nov-2016 Start: 27-Nov-2016 End: 26-Mar-2017 [facility] oral liquid 05:07:57 PM mL Quanti ty: 1 Toan Ross Status: No Longer Active Health EST Refills: 3 System fluticasone [id number] 11/27/2016 1 [id number] completed Fluticasone [facility] 50 mcg/inh 05:03:53 PM {spray(s)} P ropionate Health nasal spray EST System For the nose.It is very important that y ou take or use this exactly as directed. Do not skip doses or discontinue unless dir ected by your doctor. Azithromycin azithromycin 11/27/2016 1 [id number] completed Azithromycin [facility] 500 MG Oral 500 mg oral 05:03:07 PM {tab(s)} Health Tablet tablet EST System azithromycin 500 mg oral tablet Do not take dairy products, antacids, or iron preparations within one hour of this medication.Finish all this medication un less otherwise directed by prescriber. Azithromycin azithromycin 11/07/2016 1 [id number] completed Azithromycin [facility] 500 MG Oral 500 mg oral 02:39:31 PM {tab(s)} Health Tablet tablet EST System azithromycin 500 mg oral tablet Do not take dairy products, antacids, or iron preparations within one hour of this medication.Finish all this medication un less otherwise directed by prescriber. Levofloxacin Levaquin 10/16/2016 1 B52619 completed Levaquin [facility] 750 MG Oral 750 [...] plenty of water. buspirone busPIRone 10/16/2016 1 [id number] completed BusPIRone [facility] hydrochloride 15 mg oral [...] this medication. 60 ACTUAT Advair 10/16/2016 1 [id number] aborted Ad vair [facility] Fluticasone Diskus 250 [...] thoroughly after use. Meclizine meclizine 10/16/2016 1 K93405 completed meclizine 12.5 mg oral tablet; 1 [...] dangerous machinery. Sodium Deep 10/16/2016 2 {spray(s)} N26040 completed Deep [facility] Chloride Sea 03:23:34 PM Sea Heal th 0.111 Nasal EST Nasal System MEQ/ML 0.65% [place] Nasal nasal [place] spray [Deep Sea] Deep Sea Nasal 0.65% nasal spray For the nose. Dextromethorphan Robitussin 09/04/2016 10 [id number] comp leted Robitussin DM To Go 20 [...] plenty of water. lansoprazole lansoprazole 09/04/2016 1 [id number] completed Lansoprazole [facility] 30 MG Delayed 30 [...] by your doctor. Meclizine meclizine 09/04/2016 1 S75639 completed meclizine 25 mg oral tablet; 1 [...] Use care when operating dangerous machinery. Zithromax [id number] 09/04/2016 1 [id number] completed Zithromax [facility] Z-[place] 250 01:57:52 PM {tab(s)} Z-Pa k Health mg oral EST System tablet Do not take dairy products, antacids, or iron preparations within one hour of this medication.Finish all this medication un less otherwise directed by prescriber. lansoprazole 30 lansoprazole 30 08/18/2016 1 F63493 abort ed Lansoprazole [facility] MG mg oral [...] octor. 24 HR Diltiazem Cardizem 07/21/2016 1 [id number] aborted Cardizem [facility] Hydrochloride [place] 360 12:14:36 [...] Do not crush. buspirone busPIRone 07/21/2016 1 [id number] completed BusPIRone [facility] hydrochloride 15 mg oral 12:14:02 PM {tab(s)} Hydrochloride Health 15 MG Oral tablet EDT System Tablet busPIRone 15 mg oral tablet 24 HR nitroglycerin 07/21/2016 1 T40973 completed nitroglycerin 0.2 mg/hr transdermal film, extended [...] new patch. Diphenhydramine Allergy Relief 07/21/2016 10 R81864 c ompleted Allergy Relief [facility] Hydrochloride 2.5 [...] this medic ation. Dextromethorphan Robitussin 07/21/2016 10 [id number] comp leted Robitussin DM To Go 20 [...] plenty of water. Azithromycin Azithromycin 07/21/2016 1 [id number] completed Azithromycin [facility] 250 MG Oral 5 Day Dose 12:08:19 PM {tab(s)} 5 Day Dose Health Tablet Pack 250 mg EDT Pack System Azithromycin oral tablet 5 Day Dose Pack 250 mg oral tablet Do not take dairy products, antacids, or iron preparations within one hour of this medication.Finish all this medication un less otherwise directed by prescriber. Flonase [id number] 04/11/2016 1 K19103 completed Flonase [facility] 50 11:31:04 AM {spray(s)} He alth mcg/inh EDT System nasal spray For the nose.It is very important that y ou take or use this exactly as directed. Do not skip doses or discontinue unless dir ected by your doctor. Ventolin HFA [id number] 03/31/2016 2 [id number] aborted Ventolin [facility] 90 mcg/inh 02:19:10 PM [...] before use . Diphenhydramine Benadryl 03/31/2016 1 N43552 aborted Benadryl [facility] Hydrochloride 25 25 mg 02:18:53 PM {tab(s)} Health MG Oral Tablet oral EDT Syste m [Benadryl] tablet Benadryl 25 mg oral tablet May cause drowsiness. Alcohol may inten sify this effect. Use care when operating dangerous machinery.Obtain medical advic e before taking any non-prescription drugs as some may affect the action of this medic ation. buspirone busPIRone 03/31/2016 1 Q02000 aborted BusPIRone [facility] hydrochloride 15 mg oral [...] effect. Use care when operating dangerous machinery.Obtain [facility] advice before taking any non-prescription drugs as some may affec t the action of this medication. 24 HR nitroglycerin 03/31/2016 1 G43794 aborted nitroglycerin 0.6 mg/hr transdermal film, extended [...] new patch. Aspirin aspirin 03/31/2016 1 {tab(s)} G92757 aborted Halfprin [facility] 81 MG 81 mg 02:17:53 PM Health Oral oral EDT System Tablet tablet aspirin 81 mg oral tablet Take with food or milk. Meclizine meclizine 02/28/2016 1 A05584 aborted meclizine 25 mg oral tablet; 1 [...] dangerous machinery. Sodium Deep 12/31/2015 2 {spray(s)} [id number] aborted Deep [facility] Chloride Sea 12:54:54 PM Sea Heal th 0.111 Nasal EDT Nasal System MEQ/ML 0.65% [place] Nasal nasal [place] spray [Deep Sea] Deep Sea Nasal 0.65% nasal spray For the nose. Prednisone predniSONE 12/31/2015 2 [id number] aborted PredniSONE [facility] 20 MG Oral 20 [...] or milk. Loratadine Alavert 12/31/2015 1 {tab(s)} W76940 completed Alavert [facility] 10 MG Oral 10 mg 12:53:40 PM H ealth Tablet oral EDT System [Alavert] tablet Alavert 10 mg oral tablet May cause drowsiness. Alcohol may inten sify this effect. Use care when operating dangerous machinery.Obtain medical advic e before taking any non-prescription drugs as some may affect the action of this medic ation. Docusate Colace 12/24/2015 1 {cap(s)} A37021 completed Colace [facility] Sodium 100 100 mg 10:04:03 AM Health MG Oral oral EDT System Capsule capsule [Colace] Colace 100 mg oral capsule Medication should be taken with plenty o f water. Meclizine meclizine 12/24/2015 1 E64930 aborted meclizine 25 mg oral tablet; 1 [...] operating dangerous machinery. Diphenhydramine Benadryl 12/24/2015 1 H51203 aborted Benadryl [facility] Hydrochloride 25 25 mg 10:03:05 AM {tab(s)} Health MG Oral Tablet oral EDT Syste m [Benadryl] tablet Benadryl 25 mg oral tablet May cause drowsiness. Alcohol may inten sify this effect. Use care when operating dangerous machinery.Obtain medical advic e before taking any non-prescription drugs as some may affect the action of this medic ation. Hydralazine hydrALAZINE 12/14/2015 1 M73702 aborted HydrALAZINE [facility] Hydrochloride 10 mg oral [...] doctor before taking. Simvastatin simvastatin 12/14/2015 1 R07945 aborted Simvastatin [facility] 40 MG Oral 40 [...] once a day Ordered: 14-Dec-2015 Start: 14-Dec-19 16 End: 10-Jun-2016 [facility] diltiazem 24 hour 11:35:05 [...] this medication. Dextromethorphan Hydrobromide dextromethorphan-guaiFENesin 11/28/2015 5 F30340 completed dextromethorpha n-guaiFENesin 5 mg-100 mg/5 mL oral liquid; 5 milliliter(s) orally every 6 hours, As Needed for cough Ordered: 28-Nov-2015 Start: 28-Nov-2015 End: 08-Dec-2015 [facility] 1 MG/ML / Guaifenesin 20 5 mg-100 mg/5 mL oral liquid 12:04:28 PM mL Quantity: 100 VandanaToan Status: No Longer Active Health MG/ML Oral Solution EST Refil ls: 0 Generic Substitution Allowed System dextromethorphan-guaiFENesin 5 mg-100 mg/5 mL oral liquid Medication should be taken with plenty o f water. Zithromax [id number] 11/28/2015 0 O27537 completed Zithromax [facility] Z-[place] 250 11:52:19 AM Z-[place] He alth mg oral EST System tablet Do not take dairy products, antacids, or iron preparations within one hour of this medication.Finish all this medication un less otherwise directed by prescriber. benzonatate benzonatate 11/04/2015 1 D64767 aborted benzonatate 200 mg oral capsule; 1 [...] n ot crush. Azithromycin Azithromycin 11/04/2015 1 K39994 completed Azithromycin [facility] 500 MG Oral 3 Day Dose 06:24:17 PM {tab(s)} 3 Day Dose Health Tablet Pack 500 mg EST Pack System Azithromycin oral tablet 3 Day Dose Pack 500 mg oral tablet Do not take dairy products, antacids, or iron preparations within one hour of this medication.Finish all this medication un less otherwise directed by prescriber. Hydrochlorothiazide hydrochlorothiazide 10/29/2015 1 Q34407 completed Hydrochlorothiazide [facility] 12.5 MG Oral Tablet 12.5 mg oral tablet 03:08:11 PM {tab(s)} Health hydrochlorothiazide EST System 12.5 mg oral tablet Azithromycin Azithromycin 10/17/2015 1 T57884 comple nayeli Azithromycin 5 Day Dose Pack [...] directed by prescriber. Calcium calcium 10/16/2015 1 [id number] completed calcium carbonate 500 mg (200 mg [...] tablets before swallowing Cholecalciferol cholecalciferol 10/16/2015 3 T46667 compl eted Enfamil [facility] 400 UNT/ML Oral 400 intl 11:54:53 AM mL D-Vi-[place] [facility] Solution units/mL oral EST Sy stem cholecalciferol liquid 400 intl units/mL oral liquid pantoprazole pantoprazole 10/16/2015 1 [id number] aborte d pantoprazole 40 mg oral delayed release tablet; 1 tab(s) orally once a day Ordered: 16-Oct-2015 Start: 16-Oct-2015 End: 13-Jan-2016 [facility] 40 MG Delayed 40 mg oral 11:54:10 AM {tab(s)} Quantity: 30 Marcelo Méndez Status: Discontinued Health Release Oral delayed EST Refills: 2 System Tablet release pantoprazole tablet 40 mg oral delayed release tablet Albuterol albuterol-ipr 10/15/2015 3 mL T63066 complete albuterol- ipratropium 2.5 mg-0.5 mg/3 mL inhalation solution; 3 milliliter(s) inhaled 2 times a day as needed Ordered: 15-Oct-2015 Start: 15-Oct-2015 End: 12-Jan-2016 [facility] 0.833 MG/ML / atropium 2.5 12:38:14 PM d Quantity: 60 Manoj, Sorayajulia Status: No Longer Active Health Ipratropium mg-0.5 mg/3 EST Refill s: 2 Generic Substitution Allowed System [place] 0.167 mL inhalation Comments: For inhalation only.It [...] this medication. Docusate Sodium docusate-senna 10/15/2015 2 T60218 aborte d Senna S [facility] 50 MG / 50 mg-8.6 mg 12:00:00 AM [facility] oral tablet EST System 8.6 MG Oral Tablet docusate-senna 50 mg-8.6 mg oral tablet Ondansetron 8 MG ondansetron 8 mg 10/15/2015 1 U40017 com pleted Ondanse [facility] Disintegrating oral tablet, 12:00:00 AM {t bernadette [facility] Oral Tablet disintegrating EST ab Hyd roch System ondansetron 8 mg (s loride oral tablet, )} disintegrating Clonazepam 0.5 MG clonazePAM 0.5 10/15/2015 1 Z77055 comp leted KlonoPI [facility] Oral Tablet mg oral tablet 12:00:00 AM {t N Health clonazePAM 0.5 mg EST ab Sy stem oral tablet (s )} Hydrochlorothiazi hydrochlorothiaz 10/15/2015 1 B10792 co mpleted Hydroch [facility] de 12.5 MG Oral leonela 12.5 mg oral 12:00:00 AM {c lorothi Health Capsule capsule EST ap azide System hydrochlorothiazi (s de 12.5 mg oral )} capsule Psyllium psyllium psyllium 6 g 10/15/2015 1 L06890 comple nayeli Konsyl [facility] 6 g oral powder oral powder for 12:00:00 AM {P Health for reconstitution EST KT Syste m reconstitution (S )} Amoxicillin 500 MG / amoxicillin-clavulanate 10/15/2015 1 T07851 completed amoxicillin-clavulanate 500 mg-125 mg oral tablet; 1 tab(s) orally 3 times a day Ordered: 15-Oct-2015 Start: 15-Oct-2015 End: 20-Oct-2015 [facility] Clavulanate 125 MG Oral 500 mg-125 mg oral 12:00:00 AM {tab(s)} Quantity: 15 Chayo Aranda Status: No Longer Active Health Tablet tablet EST Refills: 0 System amoxicillin-clavulanate 500 mg-125 mg oral tablet Docusate docusate 10/05/2015 5 mL D31673 aborted D ocusate [facility] Sodium 10 10 mg/mL 07:10:40 PM Sodi um Health MG/ML Oral oral EST System Suspension liquid docusate 10 mg/mL oral liquid Medication should be taken with plenty o f water. Sodium Nasal 09/06/2015 2 completed Nasal Saline; 2 spray(s) 2 times a day Ordered: 06-Sep-2015 Start: 06-Sep-2015 End: 04-Dec-2015 [facility] Chloride Saline 12:28:25 PM {spray(s)} Q uantity: 120 Marcelo Méndez Status: No Longer Active Health Nasal EST Refills: 2 System Product Nasal Saline Ibuprofen IBU 600 09/06/2015 1 {tab(s)} Z15023 aborted IBU [facility] 600 MG Oral mg [...] food or milk. lansoprazole lansoprazole 09/06/2015 1 T12691 aborted Lansoprazole [facility] 30 MG Delayed 30 [...] by your doctor. Diphenhydramine Benadryl 09/06/2015 1 P44962 aborted Benadryl [facility] Hydrochloride 25 25 mg [...] ation. 200 ACTUAT ProAir HFA 09/06/2015 2 N51520 completed ProAir HFA 90 mcg/inh inhalation aerosol; [...] use . 24 HR nitroglycerin 09/06/2015 1 D01054 aborted nitroglycerin 0.2 mg/hr transdermal film, extended [...] a new patch. Spironolactone spironolactone 09/06/2015 1 Y12481 aborted Spironolactone [facility] 25 MG Oral 25 mg oral 12:05:17 PM {tab(s)} Health Tablet tablet EST System spironolactone 25 mg oral tablet It is very important that you take or us e this exactly as directed. Do not skip doses or discontinue unless directed by your doctor.May cause drowsiness or dizziness. 24 HR Diltiazem diltiazem 08/27/2015 1 T73753 aborted Cardizem [facility] Hydrochloride 360 mg/24 02:11:12 [...] Do not crush. Meclizine meclizine 08/15/2015 1 C09032 aborted meclizine 25 mg oral tablet; 1 [...] Use care when operating dangerous machinery. Sodium Im[place] Saline 08/15/2015 2 {gtt} Q17620 completed Imnaha [facility] Chloride 0.65% 11:21:09 AM Saline H ealth 0.111 nasal EST Nasal System MEQ/ML solution Nasal Solution [Imnaha Saline Nasal] [place] Saline 0.65% nasal solution For the nose. 24 HR Metoprolol 08/15/2015 1 F29820 aborted Me toprolol [facility] metoprolol Succinate 11:13:38 [...] become fa miliar with its effects. Nasonex [id number] 08/15/2015 2 {spray(s)} [id number] aborted Nasonex [facility] 50 11:08:34 AM Health mcg/inh EST System nasal spray For the nose.It is very important that y ou take or use this exactly as directed. Do not skip doses or discontinue unless dir ected by your doctor.Shake well before use. Meclizine meclizine 08/10/2015 1 L99252 completed meclizine 25 mg oral tablet; 1 [...] Acetaminophen 300 MG / acetaminophen-codeine 07/31/2015 1 G05454 completed acetaminophen-codeine 300 mg-30 mg oral tablet; [...] intensify this effect. Use care when operating [employer] machinery.This product contains acetaminophen. Do not use [...] by prescriber.Take with food or milk. Ventolin [id number] 07/13/2015 2 G84867 completed Ventolin [facility] HFA 90 11:04:01 AM [...] use . 24 HR Cardizem 07/13/2015 1 [id number] completed Ca rdizem [facility] Diltiazem CD 360 [...] Do not crush. Diphenhydramine Allergy 07/13/2015 1 J58849 completed Allergy [facility] Hydrochloride 25 25 mg 10:40:28 AM {tab(s)} Health MG Oral Tablet oral EDT Syste m Allergy 25 mg tablet oral tablet May cause drowsiness. Alcohol may inten sify this effect. Use care when operating dangerous machinery.Obtain medical advic e before taking any non-prescription drugs as some may affect the action of this medic ation. Calcium Carbonate calcium (as 07/13/2015 1 N54131 aborted Os-Tc [facility] 1250 MG / carbonate)-vitamin 10:38:35 AM {tab(s)} 500 + D Health Cholecalciferol D 500 mg-400 intl EDT System 0.01 MG Chewable units oral tablet, Tablet calcium (as chewable carbonate)-vitamin D 500 mg-400 intl units oral tablet, chewable Take with food or milk. buspirone busPIRone 07/13/2015 1 T54825 completed BusPIRone [facility] hydrochloride 15 mg oral [...] of this medication. Erythromycin erythromycin 07/13/2015 1 R31414 completed Erythromycin [facility] 500 MG Oral 500 [...] Refills: 0 System Simvastatin simvastatin 07/13/2015 1 P65149 aborted Simvastatin [facility] 40 MG Oral 40 [...] or mil k. lansoprazole lansoprazole 07/13/2015 1 Z46441 aborted Lansoprazole [facility] 30 MG Delayed 30 [...] your doctor. POLYETHYLENE ClearLax oral 05/01/2015 238 S75882 completed ClearLax [facility] GLYCOL 3350 142 powder for 03:26:04 PM g Health MG/ML Oral reconstitution EDT System Solution [ClearLax] ClearLax oral powder for reconstitution Dilute this medication with liquid befor e administration.It is very important that you take or use this exactly as directed . Do not skip doses or discontinue unless directed by your doctor. POLYETHYLENE polyethylene 05/01/2015 17 Z57764 completed Polyethylene [facility] GLYCOL 3350 142 glycol [...] by your doctor. Erythromycin erythromycin 04/10/2015 1 C07865 completed Erythromycin [facility] 500 MG Oral 500 mg oral 10:04:45 AM {tab(s)} Base [facility] Tablet tablet EDT System erythromycin 500 mg oral tablet Finish all this medication unless otherw ise directed by prescriber.Take medication on an empty stomach 1 hour before or 2 to 3 hours after a meal unless otherwise directed by your doctor. Azithromycin azithromycin 04/05/2015 1 H00577 completed Azithromycin [facility] 500 MG Oral 500 mg oral 06:47:17 PM {tab(s)} Health Tablet tablet EDT System azithromycin 500 mg oral tablet Do not take dairy products, antacids, or iron preparations within one hour of this medication.Finish all this medication un less otherwise directed by prescriber. Sodium sodium 04/05/2015 1 {spray(s)} [id number] completed Simply [facility] Chloride chloride 06:22:53 PM Salin e Health 0.154 0.9% nasal EDT System MEQ/ML spray Nasal [place] sodium chloride 0.9% nasal spray For the nose. Oxymetazoline Afrin 04/05/2015 2 N60483 completed Afrin [facility] hydrochloride 0.05% 06:20:10 PM {spray(s)} Health 0.5 MG/ML Nasal nasal EDT Sys tem [place] [Afrin] spray Afrin 0.05% nasal spray For the nose. Azithromycin azithromycin 04/05/2015 1 [id number] completed Azithromycin [facility] 250 MG Oral 250 mg oral 06:17:35 PM {tab(s)} Health Tablet tablet EDT System azithromycin 250 mg oral tablet Do not take dairy products, antacids, or iron preparations within one hour of this medication.Finish all this medication un less otherwise directed by prescriber. Azithromycin azithromycin 04/05/2015 1 [id number] aborted Azithromycin [facility] 500 MG Oral 500 mg oral 06:14:00 PM {tab(s)} Health Tablet tablet EDT System azithromycin 500 mg oral tablet Do not take dairy products, antacids, or iron preparations within one hour of this medication.Finish all this medication un less otherwise directed by prescriber. Diphenhydramine diphenhydrAMINE 03/29/2015 1 [id number] completed DiphenhydrAMINE [facility] Hydrochloride 50 50 mg oral 11:13:40 AM {tab(s)} Hydrochloride Health MG Oral Tablet tablet EDT Sys tem diphenhydrAMINE 50 mg oral tablet May cause drowsiness. Alcohol may inten sify this effect. Use care when operating dangerous machinery.Obtain medical advic e before taking any non-prescription drugs as some may affect the action of this medic ation. Lindae [id number] 03/29/2015 1 [id number] completed Flonase [facility] 50 11:11:15 AM {spray(s)} He alth mcg/inh EDT System nasal spray For the nose.It is very important that y ou take or use this exactly as directed. Do not skip doses or discontinue unless dir ected by your doctor. Docusate Doc-Q-Lace 03/09/2015 10 [id number] completed Doc-Q-Lace 10 mg/mL oral liquid; 10 [...] o f water. Albuterol albuterol 03/09/2015 3 O95717 aborted albuterol 2.5 mg/3 mL (0.083%) inhalation [...] of this medication. Spironolactone spironolactone 03/09/2015 1 W90716 complet ed Spironolactone [facility] 50 MG Oral 50 mg oral 09:47:49 AM {tab(s)} Health Tablet tablet EDT System spironolactone 50 mg oral tablet It is very important that you take or us e this exactly as directed. Do not skip doses or discontinue unless directed by your doctor.May cause drowsiness or dizziness. Docusate Doc-Q-Lax 03/09/2015 1 [id number] aborted Doc-Q-Lax [facility] Sodium 50 MG 50 mg-8.6 09:39:54 AM {tab(s)} Health / sennosides, mg oral EDT Sys tem CARE HOME 8.6 MG tablet Oral Tablet Doc-Q-Lax 50 mg-8.6 mg oral tablet Medication should be taken with plenty o f water. buspirone busPIRone 03/09/2015 1 Y62110 completed BusPIRone [facility] hydrochloride 15 mg oral [...] Use care when operating dangerous machinery.Obtain [facility] advice before taking any non-prescription drugs as some may affec t the action of this medication. Metronidazole Flagyl 01/08/2015 1 {tab(s)} X01185 aborted Flagyl [facility] 500 MG Oral 500 mg 02:17:26 PM Health Tablet [Flagyl] oral EDT Syst em Flagyl 500 mg tablet oral tablet Do not drink alcoholic beverages when ta anabell this medication.Finish all this medication unless otherwise directed by prescriber.May discolor urine or feces. Azithromycin azithromycin 01/08/2015 1 X69748 aborted Azithromycin [facility] 500 MG Oral 500 mg oral 02:16:41 PM {tab(s)} Health Tablet tablet EDT System azithromycin 500 mg oral tablet Do not take dairy products, antacids, or iron preparations within one hour of this medication.Finish all this medication un less otherwise directed by prescriber. Flonase [id number] 01/06/2015 1 [id number] aborted Flonase 50 mcg/inh nasal spray; 1 spray(s) nasal 2 times a day Ordered: 06-Jan-2015 Start: 5 End: 13-Jan-2015 [facility] 50 07:14:14 AM {spray(s)} Quantit y: 1 Yves Tee Status: Discontinued Health mcg/inh EDT Refills: 0 G eneric Substitution Allowed System nasal spray For the nose.It is very important that y ou take or use this exactly as directed. Do not skip doses or discontinue unless dir ected by your doctor. Prednisone predniSONE 01/06/2015 1 [id number] aborted PredniSONE [facility] 50 MG Oral 50 [...] food or milk. Erythromycin erythromycin 01/06/2015 1 [id number] aborted Erythromycin [facility] 500 MG Oral 500 mg oral 06:43:22 AM {tab(s)} [facility] Tablet tablet EDT System erythromycin 500 mg oral tablet Finish all this medication unless otherw ise directed by prescriber.Take medication on an empty stomach 1 hour before or 2 to 3 hours after a meal unless otherwise directed by your doctor. Ibuprofen IBU 600 01/06/2015 1 {tab(s)} [id number] aborted IBU [facility] 600 MG Oral mg [...] food or milk. Clindamycin clindamycin 11/24/2014 1 [id number] completed Cleocin [facility] 150 MG Oral 150 mg oral 09:41:27 AM {cap(s)} HCl Health Capsule capsule EST System clindamycin 150 mg oral capsule Finish all this medication unless otherw ise directed by prescriber.Medication should be taken with plenty of water. Clindamycin clindamycin 11/24/2014 1 [id number] completed Cleocin [facility] 300 MG Oral 300 mg oral 09:40:27 AM {cap(s)} HCl Health Capsule capsule EST System clindamycin 300 mg oral capsule Finish all this medication unless otherw ise directed by prescriber.Medication should be taken with plenty of water. Prednisone predniSONE 11/24/2014 1 [id number] completed PredniSONE [facility] 50 MG Oral 50 [...] food or milk. Naproxen Naprosyn 11/24/2014 1 [id number] completed Naprosyn 500 mg oral tablet; 1 [...] Refills: 3 System Spironolactone spironolactone 11/10/2014 1 [id number] complet ed Spironolactone [facility] 50 MG Oral 50 mg oral 03:48:35 PM {tab(s)} Health Tablet tablet EST System spironolactone 50 mg oral tablet It is very important that you take or us e this exactly as directed. Do not skip doses or discontinue unless directed by your doctor.May cause drowsiness or dizziness. 24 HR nitroglycerin 11/10/2014 1 [id number] aborted nitroglycerin 0.2 mg/hr transdermal film, extended [...] patch. Ibuprofen IBU 600 11/10/2014 1 {tab(s)} [id number] completed IBU [facility] 600 MG Oral mg [...] food or milk. Diphenhydramine diphenhydrAMINE 11/10/2014 1 [id number] compl eted Twilite [facility] Hydrochloride 50 50 mg oral 03:06:20 PM {tab(s)} Health MG Oral Tablet tablet EST Sys tem diphenhydrAMINE 50 mg oral tablet May cause drowsiness. Alcohol may inten sify this effect. Use care when operating dangerous machinery.Obtain medical advic e before taking any non-prescription drugs as some may affect the action of this medic ation. buspirone busPIRone 11/10/2014 1 [id number] completed BusPIRone [facility] hydrochloride 15 mg oral [...] of this medication. Aspirin Aspirin 11/10/2014 1 [id number] aborted Aspirin Enteric Coated; 1 tab(s) orally once a day Ordered: 09-Mar-2015 Start: 10-Nov-2014 End: 06-Jun-2015 [facility] Aspirin Enteric 03:05:08 PM {tab(s)} Ronald ntity: 30 Mesfin Navarrete Status: Discontinued Health Enteric Coated EST Refills: 2 System Coated Spironolactone Aldactone 11/10/2014 1 [id number] completed Aldactone [facility] 50 MG Oral 50 mg oral 03:04:49 PM {tab(s)} Health Tablet tablet EST System [Aldactone] Aldactone 50 mg oral tablet albuterol [facility] [id number] 11/10/2014 2 [id number] completed Proventil [facility] free 90 mcg/inh 1 [...] before use . Calcium calcium-vitamin 11/10/2014 1 P49519 completed Os-Tc [facility] Carbonate 1250 D 500 mg-200 03:04:14 PM {tab(s)} Calcium+D3 Health MG / intl units oral EST Syst em Cholecalciferol tablet 200 UNT Oral Tablet calcium-vitamin D 500 mg-200 intl units oral tablet Calcium calcium-vitamin 08/30/2014 1 [id number] completed Os-Tc [facility] Carbonate 1250 D 500 mg-200 11:41:55 AM {tab(s)} Calcium+D3 Health MG / intl units oral EST Syst em Cholecalciferol tablet 200 UNT Oral Tablet calcium-vitamin D 500 mg-200 intl units oral tablet Ibuprofen 600 MG IBU 600 mg oral 08/30/2014 1 [id number] comp leted IBU [facility] Oral Tablet tablet [...] this medication.Take with food or milk. albuterol [id number] 08/30/2014 2 [id number] completed Proventil [facility] free 90 11:33:50 [...] before use . lansoprazole lansoprazole 08/30/2014 1 [id number] completed Lansoprazole [facility] 30 MG Delayed 30 [...] by your doctor. Simvastatin simvastatin 08/30/2014 1 [id number] completed Simvastatin [facility] 40 MG Oral 40 [...] or mil k. Diphenhydramine diphenhydrAMINE 08/30/2014 1 [id number] compl eted Twilite [facility] Hydrochloride 50 50 mg oral 11:30:06 AM {tab(s)} Health MG Oral Tablet tablet EST Sys tem diphenhydrAMINE 50 mg oral tablet May cause drowsiness. Alcohol may inten sify this effect. Use care when operating dangerous machinery.Obtain medical advic e before taking any non-prescription drugs as some may affect the action of this medic ation. Aspirin Aspirin 08/30/2014 1 [id number] completed Aspirin Enteric Coated; 1 tab(s) orally once a day Ordered: 30-Aug-2014 Start: 30-Aug-2014 End: 27-Nov-2014 [facility] Aspirin Enteric 11:27:41 AM {tab(s)} Ronald ntity: 30 Alona Deandre Status: No Longer Active Health Enteric Coated EST Refills: 2 System Coated Spironolactone Aldactone 08/30/2014 1 [id number] completed Aldactone [facility] 50 MG Oral 50 mg oral 11:24:03 AM {tab(s)} Health Tablet tablet EST System [Aldactone] Aldactone 50 mg oral tablet 24 HR Diltiazem Cardizem 08/30/2014 1 [id number] completed Cardizem [facility] Hydrochloride 360 mg/24 11:23:38 AM {tab(s)} [facility] 360 MG Extended hours oral EST System Release Oral tablet, Tablet Cardizem extended 360 mg/24 hours release oral tablet, extended release Codeine codeine-gu 10/24/2013 10 mL [id number] completed Codeine [facility] Phosphate 2 aiFENesin 12:04:50 PM P hosphate- Health MG/ML / 10 mg-200 EST GuaiFENesi S ystem Guaifenesin 40 mg/5 mL n MG/ML Oral liquid Solution codeine-guaiFEN esin 10 mg-200 mg/5 mL liquid Azithromycin azithromyc 10/24/2013 1 [id number] completed Azithromyc [facility] 500 MG Oral in 500 mg 12:01:56 PM {tab(s)} in Health Tablet tablet EST System azithromycin 500 mg tablet Erythromycin Justice-Tab 07/03/2013 1 [id number] completed Justice-Tab 500 mg oral delayed release [...] Do not crush. Ibuprofen ibuprofen 03/28/2013 1 [id number] completed ibuprofen 600 mg oral tablet; 1 [...] eCW3 ([facility] MG/ML Oral Drops Infants Drops [facility] Suspension Gas 20 MG/0.3ML 20 MG/0.3ML Care) Relief Drops Infants 20 MG/0.3ML Ibuprofen 600 MG Ibuprofen 600 active Ibuprofen 600 eCW3 ([facility] Oral Tablet MG MG [facility]) Aspirin 81 MG Aspirin 81 mg active Aspirin 81 mg eCW3 ([place] Chewable Tablet [facility] Aspirin 81 mg Care) BuSpar 15 MG UNK active BuSpar 15 MG eCW3 ([facility]) Vitamin A & D Vitamin A & D active Vitamin A & D eCW3 ([facility] 5000-400 UNIT 5000-400 UNIT 50 00-400 UNIT [facility]) Aspirin 81 MG Aspirin 81 mg active Aspirin 81 mg eCW3 ([place] Chewable Tablet [facility] Aspirin 81 mg Care) Ibuprofen 600 MG Ibuprofen 600 suspended Ibuprofen 600 eCW3 ([facility] Oral Tablet MG MG [facility] al[facility]) Simethicone 66.7 Gas Relief active Gas Relief eCW3 ([facility] MG/ML Oral Drops Infants Drops Infants [facility] Suspension Gas 20 MG/0.3ML 20 MG/0.3ML Care) Relief Drops Infants 20 MG/0.3ML 24 HR Diltiazem Diltiazem HCl active Diltiazem HCl eCW3 ([facility] Hydrochloride 360 ER Beads 360 ER Beads 360 [facility] MG Extended MG MG Care) Release Oral Capsule Diltiazem HCl ER Beads 360 MG Simvastatin 40 MG simvastatin 40 1 C38 completed Simvastatin [facility] Oral Tablet mg oral tablet {tab [facility] simvastatin 40 mg (s)} Sy stem oral tablet Albuterol 0.83 Albuterol 3.0 active Alb uterol eCW3 ([facility] MG/ML Inhalant Sulfate (2.5 {ml_ Florez lfate (2.5 [facility] Solution MG/3ML) 0.083% as_n MG/3ML ) Care) Albuterol Sulfate eede 0.083% (2.5 MG/3ML) d} 0.083% BuSpar 15 MG UNK active BuSpar 15 MG eCW3 ([facility]) Metoclopramide 10 Reglan 10 mg active Reglan 10 mg eCW3 ([facility] MG Oral Tablet [facility] [Reglan] Reglan Care ) 10 mg BuSpar 15 MG UNK active BuSpar 15 MG eCW3 ([facility]) Simvastatin 40 MG Zocor 40 mg active Zocor 40 mg eCW3 ([facility] Oral Tablet [facility] alth [Zocor] Zocor 40 Car e) mg 24 HR Diltiazem Diltiazem HCl active Diltiazem HCl eCW3 ([facility] Hydrochloride 360 ER Beads 360 ER Beads 360 [facility] MG Extended MG MG Care) Release Oral Capsule Diltiazem HCl ER Beads 360 MG BuSpar 15 MG UNK active BuSpar 15 MG eCW3 ([place] [facility]) Aspirin 81 MG Aspirin 81 mg active Aspirin 81 mg eCW3 ([facility] Chewable Tablet [facility] Aspirin 81 mg Care) Simvastatin 40 MG Zocor 40 MG active Zocor 40 MG eCW3 ([facility] Oral Tablet [facility] alth [Zocor] Zocor 40 Car e) MG Ibuprofen 600 MG Ibuprofen 600 suspended Ibuprofen 600 eCW3 ([facility] Oral Tablet MG MG [facility]) Aspirin 81 MG Aspirin 81 mg active Aspirin 81 mg eCW3 ([place] Chewable Tablet [facility] Aspirin 81 mg Care) Albuterol 0.83 Albuterol 3.0 active Alb uterol eCW3 ([facility] MG/ML Inhalant Sulfate (2.5 {ml_ Florez lfate (2.5 [facility] Solution MG/3ML) 0.083% as_n MG/3ML ) Care) Albuterol Sulfate eede 0.083% (2.5 MG/3ML) d} 0.083% Simethicone 66.7 Gas Relief active Gas Relief eCW3 ([facility] MG/ML Oral Drops Infants Drops Infants [facility] Suspension Gas 20 MG/0.3ML 20 MG/0.3ML Care) Relief Drops Infants 20 MG/0.3ML Albuterol 0.83 Albuterol 3.0 active Alb uterol eCW3 ([facility] MG/ML Inhalant Sulfate (2.5 {ml_ Florez lfate (2.5 [facility] Solution MG/3ML) 0.083% as_n MG/3ML ) Care) Albuterol Sulfate eede 0.083% (2.5 MG/3ML) d} 0.083% Ibuprofen 600 MG Ibuprofen 600 suspended Ibuprofen 600 eCW3 ([facility] Oral Tablet MG MG [facility]) Albuterol 0.83 Albuterol 3.0 active Alb uterol eCW3 ([facility] MG/ML Inhalant Sulfate (2.5 {ml_ Florez lfate (2.5 [facility] MG/3ML) 0.083% as_n MG/3ML ) [...] Zocor 40 Car e) MG Motrin 0 [id number] completed Motrin; or ally Ordered: 03-May-2014 Status: No Longer Active [facility] Quantity: 0 Campan[facility] Refills: 0 System BuSpar 15 MG UNK suspended BuSpar 15 MG eCW3 ([facility] Care) BuSpar 0 completed BuSpar Ordere d: 03-May-2014 Status: No Longer Active [facility] Quantity: 0 [facility] Refills: 0 200 ACTUAT VENTOLIN HFA 2.0 {puffs} active VENTOLIN HFA eCW3 Albuterol 0.09 108 (90 Base) 1 08 (90 Base) ([facility] MG/ACTUAT MCG/ACT MCG/ACT Rive r Metered Dose Health Inhaler Care) [Ventolin] VENTOLIN HFA 108 (90 Base) MCG/ACT lansoprazole Prevacid 1 [id number] aborted Prevacid 30 mg oral delayed release capsule; 1 cap(s) orally once a day Ordered: 03-May-2014 Status: Discontinued [facility] 30 MG Delayed 30 mg {cap(s)} Quanti ty: 0 Nechis, [facility] Release Oral oral Refills: 0 System Capsule delayed [Prevacid] release Prevacid 30 capsule mg oral delayed release capsule Benadryl 0 [id number] complete Benadryl; orally Ordered: 03-May-2014 Status: No Longer Active [facility] d Quantity: 0 conXthis, [facility] Refills: 0 System Simethicone 66.7 Gas Relief active Gas Relief eCW3 ([facility] MG/ML Oral Drops Infants Drops Infants [facility] Suspension Gas 20 MG/0.3ML 20 MG/0.3ML Care) Relief Drops Infants 20 MG/0.3ML 24 HR Diltiazem Diltiazem HCl active Diltiazem HCl eCW3 ([facility] Hydrochloride 360 ER Beads 360 ER Beads 360 [facility] MG Extended Release MG MG Care) Oral Capsule Diltiazem HCl ER Beads 360 MG Simvastatin 40 MG Zocor 40 MG active Zocor 40 MG eCW3 ([facility] Oral Tablet [Zocor] [facility] Zocor 40 MG Care) Albuterol Sulfate Albuterol 2.0 active Albuterol eCW3 ([facility] HFA 108 (90 Base) Sulfate HFA {puff Sulfate HFA [facility] MCG/ACT 108 (90 Base) s_as_ 108 (90 Base) Care) MCG/ACT neede MCG/ACT d} 24 HR Diltiazem Diltiazem HCl active Diltiazem HCl eCW3 ([facility] Hydrochloride 360 ER Beads 360 ER Beads 360 [facility] MG Extended Release MG MG Care) Oral [...] 40 mg eCW3 ([facility] Oral Tablet [Zocor] [facility] Zocor 40 mg Care) 24 HR Diltiazem [...] name Policy type Policy ID Covered Covered republican's Policy P chio / Coverage republican ID relationship to Andrade Inf ormation type andrade MEDICAID [id number] SP [id number] MEDICARE [id number] SP [id number] Medicare Part Medicare [id number] 1 [id number] A Medicare Part Medicare [id number] 1 [id number] Outpatient Medicaid Medicaid [id number] Medicaid Medicaid [id number] MCAID [id number] Self [id number] MCARE [id number] Self [id number] A37 MEDICAID [id number] SP [id number] MEDICARE PART [id number] SP [id number] A MEDICAID [id number] SP [id number] MCAID [id number] Self [id number] MCARE [id number] Self [id number] A37 MEDICARE PART [id number] SP [id number] MEDICAID [id number] SP [id number] MCAID [id number] Self [id number] MCARE [id number] Self [id number] A37 MCAID [id number] Self [id number] MCARE [id number] Self [id number] A37 MCAID [id number] Self [id number] MCARE [id number] Self [id number] A37 MCAID [id number] Self [id number] MCARE [id number] Self [id number] A37 MCAID [id number] Self [id number] MCARE [id number] Self [id number] A37 MCAID [id number] Self [id number] MCARE [id number] Self [id number] A37 MCAID [id number] Self [id number] MCARE [id number] Self [id number] A37 MCAID [id number] Self [id number] MCARE [id number] Self [id number] A37 MCAID [id number] Self [id number] MCARE [id number] Self [id number] A37 MCAID [id number] Self [id number] MCARE [id number] Self [id number] A37 MCAID [id number] Self [id number] MCARE [id number] Self [id number] A37 Problems, Conditions, and Diagnoses Code Display Name Description Problem Type Effective Data Dates Source(s) R13.10 Dysphagia Dysphagia 29361-0 03/08/2020 [facility] 12:00:00 AM Health System EDT R10.13 Epigastric pain Epigastric pain 57744-5 03/08/2020 [facility] determined by determined by 12:00:00 AM Health System examination examination EDT R63.4 Weight loss Weight loss 99201-7 03/08/2020 [facility] 12:00:00 AM Health System EDT D25.9 Uterine leiomyoma Uterine leiomyoma 55448-0 03/08/2020 [facility] 12:00:00 AM Health System EDT [id number] Adjustment disorder Adjustment disorder Complaint 020 NETSMART with mixed anxiety with mixed anxiety 07:40:00 PM (Family and depressed mood and depressed mood EDT [facility] [employer] [id number] Generalized anxiety Generalized anxiety Complaint 020 NETSMART disorder disorder 02:15:00 PM (Family EDT - Services, 02/21/2020 Inc.) 04:00:00 AM EDT R13.10 Dysphagia, Dysphagia, Problem 02/06/2020 eCW3 ([facility] unspecified type unspecified type 12:00:00 AM [facility] EDT Care) Z90.09 History of partial History of partial Problem 9 eCW3 ([facility] thyroidectomy thyroidectomy 12:00:00 AM [facility] EDT Care) Z90.09 History of partial History of partial Problem 9 eCW3 ([facility] thyroidectomy thyroidectomy 12:00:00 AM [facility] EDT Care) J45.20 Mild intermittent Mild intermittent Problem 07/04/2019 eCW3 ([facility] asthma without asthma without 12:00:00 AM [facility] complication complication EDT Care) J45.20 Mild intermittent Mild intermittent Problem 07/04/2019 eCW3 ([facility] asthma without asthma without 12:00:00 AM [facility] complication complication EDT Care) J45.20 Intermittent Intermittent Problem 05/14/2019 eCW3 ([place] asthma, unspecified asthma, unspecified 12:00:0 0 AM [facility] asthma severity, asthma severity, EDT Ca re) [...] asthma without asthma without 12:00:00 AM [facility] complication complication EST Care) F45.8 Aerophagia Aerophagia Problem 11/25/2018 eCW3 ([facility]itt 12:00:00 AM [facility] EST Care) J32.9 Sinusitis, Sinusitis, Problem 11/25/2018 eCW3 ([facility] unspecified unspecified 12:00:00 AM [facility] chronicity, chronicity, EST Care) unspecified unspecified location location J45.30 Mild persistent Mild persistent Problem 11/25/2018 eCW3 ([facility] asthma without asthma without 12:00:00 AM [facility] complication complication EST Care) F45.8 Aerophagia Aerophagia Problem 11/25/2018 eCW3 ([facility]itt 12:00:00 AM [facility] EST Care) J45.30 Mild persistent Mild persistent Problem 11/25/2018 eCW3 ([facility] asthma without asthma without 12:00:00 AM [facility] complication complication EST Care) E55.9 Vitamin D Vitamin D Problem 04/08/2018 eCW3 ([facility] deficiency deficiency 12:00:00 AM [facility] EDT Care) G47.30 Sleep apnea in Sleep apnea in Problem 04/08/2018 eCW3 ( [facility] adult adult 12:00:00 AM [facility] EDT Care) E55.9 Vitamin D Vitamin D Problem 04/08/2018 eCW3 ([facility] deficiency deficiency 12:00:00 AM [facility] EDT Care) R92.8 Abnormal finding on Abnormal finding on Problem 018 eCW3 ([facility] mammography mammography 12:00:00 AM [facility] EDT Care) G47.30 Sleep apnea in Sleep apnea in Problem 04/08/2018 eCW3 ( [facility] adult adult 12:00:00 AM [facility] EDT Care) E55.9 Vitamin D Vitamin D Problem 04/08/2018 eCW3 ([facility] deficiency deficiency 12:00:00 AM [facility] EDT Care) K21.9 Gastroesophageal Gastroesophageal Problem 01/27/2018 eC W3 ([facility] reflux disease reflux disease 12:00:00 AM [facility] without esophagitis without esophagitis EDT Care) K21.9 Gastroesophageal Gastroesophageal Problem 01/27/2018 eC W3 ([facility] reflux disease reflux disease 12:00:00 AM [facility] without esophagitis without esophagitis EDT Care) K21.9 Gastroesophageal Gastroesophageal Problem 01/27/2018 eC W3 ([facility] reflux disease reflux disease 12:00:00 AM [facility] without esophagitis without esophagitis EDT Care) I10 Essential (primary) Essential (primary) Problem 018 eCW3 ([facility] hypertension hypertension 12:00:00 AM [facility] EST Care) E78.5 Hyperlipidemia, Hyperlipidemia, Problem 11/16/2017 eCW3 ([facility] unspecified unspecified 12:00:00 [facility] type hyperlipidemia type EST Care) F41.9 Anxiety Anxiety Problem 11/16/2017 eCW3 ([facility] 12:00:00 AM [facility] EST Care) I20.8 Stable angina Stable angina Problem 11/16/2017 eCW3 (Hu dson pectoris pectoris 12:00:00 AM [facility] EST Care) I10 Essential (primary) Essential (primary) Problem 018 eCW3 ([facility] hypertension hypertension 12:00:00 AM [facility] EST Care) E78.5 Hyperlipidemia, Hyperlipidemia, Problem 11/16/2017 eCW3 ([facility] unspecified unspecified 12:00:00 AM [facility] hyperlipidemia type hyperlipidemia type EST Care) I20.8 Stable angina Stable angina Problem 11/16/2017 eCW3 (Hu dson pectoris pectoris 12:00:00 AM [facility] EST Care) F41.9 Anxiety Anxiety Problem 11/16/2017 eCW3 ([facility]itt 12:00:00 AM [facility] EST Care) I10 Essential (primary) Essential (primary) Problem 018 eCW3 ([facility] hypertension hypertension 12:00:00 AM [facility] EST Care) I20.8 Stable angina Stable angina Problem 11/16/2017 eCW3 (Hu dson pectoris pectoris 12:00:00 AM [facility] EST Care) E78.5 Hyperlipidemia, Hyperlipidemia, Problem 11/16/2017 eCW3 ([facility] unspecified [facility] type [facility]) J45.31 Mild persistent Mild persistent Problem 10/12/2017 eCW3 ([facility] asthma with acute asthma with acute 12:00:00 AM [facility] exacerbation exacerbation EST Care) J45.31 Mild persistent Mild persistent Problem 10/12/2017 eCW3 ([place] asthma with acute asthma with acute 12:00:00 AM [facility] exacerbation exacerbation EST Care) J45.31 Mild persistent Mild persistent Problem 10/12/2017 eCW3 ([place] asthma with acute asthma with acute 12:00:00 AM [facility] exacerbation exacerbation EST Care) E78.5 Hyperlipidemia Hyperlipidemia 12395-0 07/13/2015 [facility] 12:00:00 AM [facility] System EDT I10 Hypertension Hypertension 66002-8 07/13/2015 [facility] 12:00:00 AM [facility] System EDT J01.90 Acute sinusitis Acute sinusitis 56853-2 07/13/2015 [facility] 12:00:00 AM [facility] System EDT 401.9 UNSPECIFIED HTN (hypertension) Diagnosis 05/29/2020 [facility] ESSENTIAL 01:30:34 PM [facility] HYPERTENSION T [facility] E78.5 Hyperlipidemia, Hyperlipidemia Diagnosis 05/29/2020 [facility] unspecified 01:30:34 PM [facility] I10 Essential (primary) Hypertension Diagnosis 05/29/2020 [facility] hypertension 01:30:34 PM [facility] 300.00 ANXIETY STATE Anxiety Diagnosis 05/29/2020 [facility] UNSPECIFIED 01:30:34 PM [facility] J01.90 Acute sinusitis, Acute sinusitis Diagnosis 05/29/2020 [facility] unspecified 01:30:34 PM [facility] E43 Unspecified severe Severe Diagnosis 03/08/2020 [facility] [facility] protein-calorie protein-calorie 07:02:00 PM [facility] non malnutrition malnutrition T Hospital J45.901 Unspecified asthma Asthma with acute Diagnosis 03/08/2020 [facility] with (acute) exacerbation 07:02:00 PM [facility] exacerbation T Hospital R10.9 Unspecified Abdominal pain Diagnosis 03/08/2020 [facility] abdominal pain 07:02:00 PM [facility] Z53.09 Procedure and Procedure or Diagnosis 03/08/2020 [...] [facility] angina pectoris angina pectoris 07:02:00 PM [facility] non T Hospital F32.9 Major depressive Major depressive Diagnosis 03/08/2020 [facility] disorder, single disorder with 07:02:00 PM Misael on episode, single episode T [facility] unspecified Z79.82 assisted (current) assisted current Diagnosis 0 [facility] use of aspirin use of aspirin 07:02:[facility] D25.9 Leiomyoma of Uterine leiomyoma Diagnosis 03/08/2020 [facility] uterus, unspecified 07:02:00 PM Mis[facility] on T Hospital Z91.040 Latex allergy Allergy to latex Diagnosis 03/08/2020 [facility] status 07:02:00 PM [facility] E87.6 Hypokalemia Hypokalemia Diagnosis 03/08/2020 [facility] 07:02:00 PM [facility] K21.9 Gastro-esophageal Gastroesophageal Diagnosis 03/08/2020 [facility] reflux disease reflux disease 07:02:00 PM Verno n without esophagitis without esophagitis EDT Hospital K29.70 Gastritis, Gastritis without Diagnosis 03/08/2020 [facility] unspecified, bleeding 07:02:00 PM Rakesh without bleeding T [facility] R10.13 Epigastric pain Epigastric pain Diagnosis 03/08/2020 [facility] determined by 07:02:00 PM Rakesh examination T [facility] R13.10 Dysphagia, Dysphagia Diagnosis 03/08/2020 [facility] unspecified 07:02:00 PM [facility] EDT Hospital K44.9 Diaphragmatic Diaphragmatic Diagnosis 03/08/2020 [facility] hernia without hernia without 07:02:00 PM [facility] n obstruction or obstruction and EDT Hospi rose gangrene without gangrene Z68.21 Body mass index Body mass index Diagnosis 03/08/2020 [facility] (BMI) 21.0-21.9, (BMI) of 21.0 to 07:02:00 PM V shaistaon adult 21.9 in adult EDT Hospital ASTHMA & ABD PAIN ASTHMA & ABD PAIN Diagnosis 03/08/2020 [facility] 07:02:00 PM [facility] F41.9 Anxiety disorder, Anxiety disorder Diagnosis 03/08/2020 [facility] unspecified 07:02:00 PM [facility] Z88.2 Allergy status to History of allergy Diagnosis 03/08/2020 [facility] sulfonamides status to sulfonamides 07:02:00 PM [facility] Z88.0 Allergy status to History of allergy Diagnosis 03/08/2020 [facility] penicillin to penicillin 07:02:00 PM [facility] R93.89 Abnormal findings Abnormal findings Diagnosis 03/08/2020 [facility] on diagnostic on diagnostic 07:02:00 PM [facility] imaging of other imaging of other EDT spital specified body specified body structures structures R63.4 Abnormal weight Weight loss Diagnosis 03/08/2020 [facility] loss 12:00:00 AM [facility] Z88.2 Allergy status to ALLERGY STATUS TO Diagnosis 03/04/2020 [facility] sulfonamides status SULFONAMIDES STATUS 11:34:0 0 AM [facility] EDT [facility] Z88.7 Allergy status to ALLERGY STATUS TO Diagnosis [facility] vaccine SERUM AND VACCINE 11:34:00 AM Regional status STATUS EDT [facility] Z88.0 Allergy status to ALLERGY STATUS TO Diagnosis 03/04[facility]2020 [facility]:34:00 [facility] Z91.040 Latex allergy LATEX ALLERGY Diagnosis 03/[facility] status [facility]:34[facility]00 [facility] Z88.1 Allergy status to ALLERGY STATUS TO Diagnosis 03/04/2020 [facility] other antibiotic OTHER ANTIBIOTIC 11:34:00 AM R egional agents status AGENTS STATUS EDT Hospital [facility] Z88.8 Allergy status to ALLERGY STATUS TO Diagnosis 03/04/2020 [place] other drugs, OTH DRUG/MEDS/BIOL 11:34:00 AM Reg ional medicaments and SUBST STATUS EDT [facility]ospita [facility] of biological [facility] substances status Z85.850 Personal history of PERSONAL HISTORY OF Diagnosis [place] malignant neoplasm MALIGNANT NEOPLASM 11:34:00 AM Regional of thyroid OF THYROID EDT 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 E87.6 Hypokalemia HYPOKALEMIA Diagnosis 03/04/2020 [place] 11:34:00 AM [facility] EDT [facility] E86.0 Dehydration DEHYDRATION Diagnosis 03/04[facility]2020 [facility] 11:[facility] AM [facility] EDT [facility] I10 Essential (primary) ESSENTIAL (PRIMARY) Diagnosis [facility] hypertension HYPERTENSION 11:34:00 AM [facility] EDT [facility] F41.9 Anxiety disorder, ANXIETY DISORDER, Diagnosis 03/04/2020 [facility] unspecified UNSPECIFIED 11:34:00 AM [facility] EDT [facility] K22.2 Esophageal ESOPHAGEAL Diagnosis 03/04/2020 [facility] obstruction OBSTRUCTION 11:34:00 AM [facility] EDT 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 R13.10 Dysphagia, DYSPHAGIA, Diagnosis 02/26/2020 [facility] unspecified UNSPECIFIED 07:02:00 PM [facility] EDT [facility] R13.10 Dysphagia, Dysphagia, Diagnosis 02/20/2020 [place] unspecified unspecified 06:39:00 PM [facility] - EDT [facility] K21.9 Gastro-esophageal GASTRO-ESOPHAGEAL Diagnosis 02/03/2020 [place] reflux disease REFLUX DISEASE 06:58:00 AM Regio nal without esophagitis WITHOUT ESOPHAGITIS EDT [facility] E78.5 Hyperlipidemia, HYPERLIPIDEMIA, Diagnosis 02/03/2020 [facility] diogenes unspecified UNSPECIFIED 06:58:00 AM [facility] F41.8 Other specified OTHER SPECIFIED Diagnosis 02/03/2020 [facility] anxiety disorders ANXIETY DISORDERS 06:58:00 AM [facility] Z12.31 Encounter for Encounter for Diagnosis 12/20/2019 [place] screening mammogram screening mammogram 09:14:0 0 AM [facility] for malignant for malignant EDT House neoplasm of breast neoplasm of breast [facility] J45.909 Unspecified asthma, Unspecified asthma, Diagnosis 019 [place] uncomplicated uncomplicated 09:07:07 AM [facility] R06.02 Shortness of breath Shortness of breath Diagnosis 019 [place] 08:02:31 AM [facility] K31.84 Gastroparesis Gastroparesis Diagnosis 12/02/2018 [place] 01:01:00 PM [facility] R07.9 Chest pain, Chest pain, Diagnosis 11/17/2018 [place] unspecified unspecified 03:35:00 PM [facility] Surgeries/Procedures Procedure Description Date Indications Data Source(s) Standard chest X-ray 03/14/2020 [facility] (procedure) 07:09:00 AM System EDT - 03/14/2020 07:09:00 AM EDT CBC w/Auto Differential- MV 03/13/2020 [facility] Only 06:00:00 AM System EDT - 03/13/2020 06:01:00 AM EDT US Pelvic Doppler US Pelvic 03/09/2020 [facility] Doppler 03:01:00 PM System EDT - 03/09/2020 03:01:00 PM EDT US Abdomen Complete US 03/09/2020 [facility] Abdomen Complete 03:01:00 PM System EDT - 03/09/2020 03:01:00 PM EDT XR Chest Single AP view XR 03/08/2020 [facility] Chest Single AP view 07:51:00 PM System EDT - 03/08/2020 07:51:00 PM EDT Electrocardiographic 03/08/2020 [facility] procedure (procedure) 07:43:09 PM System EDT - 03/08/2020 01:10:[address] Abdomen and Pelvis with IV 03/08/2020 [facility] and Gastrografin Contrast & 05:41:[address] Abdomen and Pelvis EDT - with IV and Gastrografin 03/08/2020 [facility] 05:41:00 PM EDT EGD - SN (None) 02/22/2020 [facility] - 12:01:00 PM [facility] auto-populated from documented surgical case EGD - SN (None) 02/15/2020 02:44:00 PM EDT [facility] auto-populated from documented surgical case EGD - SN (None) 12/02/2018 06:34:00 PM EST [facility] auto-populated from documented surgical case XR Chest PA and Left Lateral XR 06/26/2017 09:12:00 AM [facility] Chest PA and Left Lateral EDT - 06/26/2017 System 09:12:00 AM EDT XR Lumbar Spine AP + Lateral XR 04/04/2017 03:37:00 PM [facility] Lumbar Spine AP + Lateral EDT - 04/04/2017 System 03:37:00 PM EDT XR Chest PA and Left Lateral XR 04/04/2017 03:37:00 PM [facility] Chest PA and Left Lateral EDT - 04/04/2017 System 03:37:00 PM EDT XR Chest AP and Left Lateral XR 02/25/2017 06:58:00 AM [facility] Chest AP and Left Lateral EDT - 02/25/2017 System 06:58:00 AM EDT Electrocardiographic procedure 02/25/2017 06:19:00 AM [facility] (procedure) EDT - 02/25/2017 System 06:35:00 AM EDT US Breast Unilateral-Left US 11/18/2016 11:39:00 AM [facility] Breast Unilateral-Left EST - 11/18/2016 S ystem 11:39:00 AM EST US Breast Unilateral-Right US 11/18/2016 11:39:00 AM [facility] Breast Unilateral-Right EST - 11/18/2016 System 11:39:00 AM EST MG Mammography Diagnostic-Right MG 11/18/2016 10:24:00 AM [facility] Mammography Diagnostic-Right EST - 11/18/2016 System 10:24:00 AM EST MG Mammography Screening- 11/18/2016 09:38:00 AM [facility] Bilateral EST - 11/18/2016 System 09:43:33 AM EST MG Mammography Screening Left 11/18/2016 09:38:00 AM [facility] EST - 11/18/2016 System 09:38:00 AM EST XR Elbow Complete-Right XR Elbow 11/07/2016 03:31:00 P M [facility] Complete-Right EST - 11/07/2016 System 03:31:00 PM EST Radiography of nasal sinuses 11/07/2016 03:31:00 PM [facility] (procedure) EST - 11/07/2016 System 03:31:00 PM EST XR Elbow AP + Lateral-Right 11/07/2016 03:31:00 PM [facility] EST - 11/07/2016 System 03:31:00 PM EST Venipuncture 10/10/2016 09:43:33 AM [facility] EST - 10/10/2016 System 11:00:05 AM EST XR Chest PA and Left Lateral XR 09/12/2016 10:23:00 AM [facility] Chest PA and Left Lateral EST - 09/12/2016 System 10:23:00 AM EST Computerized tomography, bone 09/12/2016 10:19:00 AM [facility] density study (procedure) EST - 09/12/2016 System 10:19:00 AM EST Electrocardiographic procedure 07/24/2016 07:59:00 PM [facility] (procedure) EDT - 07/24/2016 System 08:10:00 PM EDT Venipuncture 03/31/2016 03:24:52 PM [facility] EDT - 03/31/2016 System 05:00:06 PM EDT US Doppler Venous, Lower 03/31/2016 02:46:00 PM [facility] Extremity-Left US Doppler Venous, EDT - 03/31/2016 System Lower Extremity-Left 02:46:00 PM EDT Venipuncture 02/21/2016 07:26:45 AM [facility] EDT - 02/21/2016 System 09:00:04 AM EDT Hepatitis C Viral RNA Quantitative 02/21/2016 07:26:00 AM [facility] Hepatitis C Viral RNA Quantitative EDT - 02/21/2016 System 07:26:00 AM EDT Hepatitis C Viral RNA Hepatitis C 02/21/2016 07:26:00 AM [facility] Viral RNA EDT - 02/21/2016 System 07:26:00 AM EDT US Breast Unilateral-Right US 02/14/2016 08:31:00 AM [facility] Breast Unilateral-Right EDT - 02/14/2016 System 08:31:00 AM EDT US Breast Unilateral-Left US 02/08/2016 09:02:00 AM [facility] Breast Unilateral-Left EDT - 02/08/2016 S ystem 09:02:00 AM EDT MG Mammography Screening- 02/08/2016 08:46:00 AM [facility] Bilateral MG Mammography EDT - 02/08/2016 System Screening- Bilateral 08:46:00 AM EDT XR Chest PA and Left Lateral XR 12/31/2015 11:20:00 AM [facility] Chest PA and Left Lateral EDT - 12/31/2015 System 11:20:00 AM EDT Electrocardiographic procedure 12/31/2015 10:51:00 AM [facility] (procedure) EDT - 12/31/2015 System 11:19:00 AM EDT US Doppler Venous, Lower 12/20/2015 08:54:00 AM [facility] Extremities-Bilateral US Doppler EDT - 12/20/2015 System Venous, Lower 08:54:00 AM EDT Extremities-Bilateral US Abdomen Complete US Abdomen 12/20/2015 08:54:00 AM [facility] Complete EDT - 12/20/2015 System 08:54:[address] Angiogram Aortic Arch Panel 12/14/2015 03:51:[address] PM [facility] [id number] Angiogram Aortic Arch EST - 12/14/2015 System Panel [id number] 03:51:00 PM EST Venipuncture 11/28/2015 12:58:11 PM [facility] EST - 11/28/2015 System 02:00:05 PM EST Standard chest X-ray (procedure) 11/21/2015 03:37:00 A M [facility] EST - 11/21/2015 System 03:37:00 AM EST Electrocardiographic procedure 11/21/2015 02:55:02 AM [facility] (procedure) EST - 11/21/2015 System 04:29:14 AM EST XR Chest PA and Left Lateral XR 11/04/2015 05:09:00 PM [facility] Chest PA and Left Lateral EST - 11/04/2015 System 05:09:00 PM EST XR Chest AP and Left Lateral 11/04/2015 04:43:56 PM [facility] EST - 11/04/2015 System 04:43:00 PM EST US Renal US Renal 10/12/2015 03:30:00 PM [facility] EST - 10/12/2015 System 03:30:00 PM EST Echocardiography, real-time with 10/11/2015 07:40:00 P M [facility] image documentation with M-mode EST - 10/12/2015 System recording, complete (procedure) 11:27:00 AM EST Cortisol, Serum 10/11/2015 06:00:00 [facility] - 10/11/2015 System 06:15:00 AM EST Metanephrines Urine 10/11/2015 12:00:00 AM [facility] EST - 10/12/2015 System 02:31:00 PM EST US Renal US Renal 10/10/2015 06:01:00 PM [facility] EST - 10/10/2015 System 06:01:00 PM EST Lactic Acid, Plasma *[place] 10/10/2015 04:29:20 PM [facility] ONLY* EST - 10/11/2015 System 06:21:00 AM EST XR Chest PA and Left Lateral XR 10/10/2015 02:06:00 PM [facility] Chest PA and Left Lateral EST - 10/10/2015 System 02:06:00 PM EST Electrocardiographic procedure 08/26/2015 07:30:00 AM [facility] (procedure) EST - 08/26/2015 System 10:36:00 AM EST Echocardiography, real-time with 08/25/2015 07:32:00 P M [facility] image documentation with M-mode [facility] - 08/26/2015 System recording, complete (procedure) 11:58:00 AM EST XR Chest Single AP view XR Chest 08/25/2015 05:11:00 P M [facility] Single AP view EST - 08/25/2015 System 05:11:00 PM EST Electrocardiographic procedure 08/25/2015 04:51:10 PM [facility] (procedure) EST - 08/25/2015 System 05:01:00 PM EST Computerized axial tomography of 08/10/2015 06:15:00 P M [facility] brain (procedure) EST - 08/10/2015 System 06:15:00 PM EST US Breast Unilateral-Left US 07/03/2015 10:27:00 AM [facility] Breast Unilateral-Left EDT - 07/03/2015 S ystem 10:27:00 AM EDT US Breast Unilateral-Right US 07/03/2015 10:27:00 AM [facility] Breast Unilateral-Right EDT - 07/03/2015 System 10:27:00 AM EDT MG Mammography Diagnostic-Right MG 07/03/2015 09:49:00 AM [facility] Mammography Diagnostic-Right EDT - 07/03/2015 System 09:49:00 AM EDT XR Esophagram Barium XR Esophagram 04/23/2015 08:57:00 AM [facility] Barium EDT - 04/23/2015 System 08:57:00 AM EDT XR Esophagram Gastrografin 04/23/2015 08:57:00 AM [facility] EDT - 04/23/2015 System 08:57:00 AM EDT Venipuncture 2015 07:25:44 AM [facility] EDT - 2015 System 09:00:07 AM EDT XR Neck Soft Tissue XR Neck Soft 04/11/2015 02:11:00 P [facility] Tissue EDT - 04/11/2015 System 02:11:00 PM EDT XR Ankle Complete 3 Views-Left XR 03/14/2015 09:07:[facility] 3 [facility]-Left EDT - 03/14/2015 System 09:07:00 AM EDT XR Foot AP + Lateral + 03/14/2015 09:07:00 [facility] Oblique-Left XR Foot AP + Lateral EDT - 03/14/2015 System + Oblique-Left 09:07:00 AM EDT Electrocardiographic procedure 03/14/2015 08:43:00 AM [facility] (procedure) EDT - 03/14/2015 System 08:44:00 AM EDT Computed tomography of soft 01/06/2015 04:52:00 AM [facility] tissues of neck (procedure) EDT - 01/06/2015 System 04:52:00 AM EDT US Breast Bilateral US Breast 10/18/2014 09:00:00 AM [facility] Bilateral EST - 10/18/2014 System 09:00:00 AM EST MG Mammography Diagnostic-Right MG 10/18/2014 08:54:00 AM [facility] Mammography Diagnostic-Right EST - 10/18/2014 System 08:54:00 AM EST MG Mammography Screening- 09/05/2014 02:39:00 PM [facility] Bilateral MG Mammography EST - 09/05/2014 System Screening- Bilateral 02:39:00 PM EST Venipuncture 08/25/2014 08:31:15 AM [facility] EST - 08/25/2014 System 10:00:04 AM EST Venipuncture 01/09/2014 08:26:30 AM [facility] EDT - 01/09/2014 System 12:00:00 AM EDT XR Chest PA and Left Lateral XR 11/01/2013 03:12:00 PM [facility] Chest PA and Left Lateral EST - 11/01/2013 System 03:12:00 PM EST Bordetella Pertussis Antigen 10/24/2013 11:54:50 AM [facility] EST - 10/24/2013 System 12:04:00 PM EST US Doppler Venous, Lower 04/05/2013 02:59:00 PM [facility] Extremity-Left US Doppler Venous, EDT - 04/05/2013 System Lower Extremity-Left 02:59:00 PM EDT XR Knee 2 Views-Left XR Knee 2 04/05/2013 02:56:00 PM [facility] Views-Left EDT - 04/05/2013 System 02:56:00 PM EDT XR Pelvis SP Complete XR Pelvis SP 03/28/2013 09:33:00 AM [facility] Complete EDT - 03/28/2013 System 09:33:00 AM EDT XR Hip 2 Views-Left XR Hip 2 03/28/2013 09:33:00 AM [facility] Views-Left EDT - 03/28/2013 System 09:33:00 AM EDT Electrocardiographic procedure 03/06/2013 07:48:16 AM [facility] (procedure) EDT - 03/06/2013 System 08:20:00 AM EDT XR Chest Single AP view XR Chest 03/06/2013 07:48:00 A M [facility] Single AP view EDT - 03/06/2013 System 07:48:00 AM EDT Electrocardiographic procedure 03/02/2013 01:24:04 PM [facility] (procedure) EDT - 03/02/2013 System 01:30:00 PM EDT XR Chest Single AP view XR Chest 03/02/2013 01:24:00 P M [facility] Single AP view EDT - 03/02/2013 System 01:24:00 PM EDT US Breast Bilateral US Breast 01/11/2013 08:18:00 AM [facility] Bilateral EDT - 01/11/2013 System 08:18:00 AM EDT MG Mammography Screening- 01/11/2013 08:17:00 AM [facility] Bilateral MG Mammography EDT - 01/11/2013 System Screening- Bilateral 08:17:00 AM EDT Electrocardiographic procedure 01/11/2013 07:32:00 AM [facility] (procedure) EDT - 01/11/2013 System 11:20:00 AM EDT Computerized axial tomography of 11/30/2012 10:20:00 A M [facility] brain (procedure) EST - 11/30/2012 System 10:20:[address] Maxillofacial without Contrast 11/30/2012 10:18:[address] [facility] [address] Maxillofacial without Contrast EST - 11/30/2012 System 10:18:00 AM EST US Breast Unilateral-Right US 05/14/2012 05:04:00 PM [facility] Breast Unilateral-Right EDT - 05/14/2012 System 05:04:00 PM EDT US Breast Bilateral 05/14/2012 05:04:00 PM [facility] EDT - 05/14/2012 System 05:19:25 PM EDT US Pelvis Transvaginal US Pelvis 05/07/2012 03:49:00 P M [facility] Transvaginal EDT - 05/07/2012 System 03:49:00 PM EDT US Pelvis Non-obstetric 05/07/2012 03:49:00 PM [facility] EDT - 05/07/2012 System 04:11:57 PM EDT US Breast Bilateral US Breast 05/07/2012 03:48:00 PM [facility] Bilateral EDT - 05/07/2012 System 03:48:00 PM EDT Electrocardiographic procedure 10/17/2011 11:12:00 AM [facility] (procedure) EST - 10/17/2011 System 11:14:00 AM EST MG Mammography Screening- 10/17/2011 08:44:00 AM [facility] Bilateral MG Mammography EST - 10/17/2011 System Screening- Bilateral 08:44:00 AM EST thyroid nodule removed [facility] Results ID Date Data Source [id number] 06/30/2020 03:12:00 PM EDT [facility] Name Value Range Interpretation Description Data Sup porting Code Source(s) Document(s ) SARS [facility] coronavirus 2 RNA This lab was ordered by [facility] and reported by [facility]. ID Date Data Source [id number] 05/01/2020 09:30:00 PM EDT [facility] Name Value Range Interpretation Description Data Sup porting Code Source(s) Document(s ) SARS [facility] coronavirus 2 RNA This lab was ordered by [facility] and reported by [facility]. ID Date Data Source [id number] 04/16/2020 08:18:00 PM EDT [facility] Name Value Range Interpretation Description Data Sup porting Code Source(s) Document(s ) SARS [facility] coronavirus 2 RNA This lab was ordered by [facility] and reported by [facility]. ID Date Data Source [id number] 03/19/2020 03:08:00 PM EDT [facility] Name Value Range Interpretation Description Data Sup porting Code Source(s) Document(s ) SARS [facility] coronavirus 2 RNA This lab was ordered by [facility] and reported by [facility]. ID Date Data Source [id number] 03/17/2020 04:10:48 PM EDT [facility] System Name Value Range Interpretation Description [...] System Automated count ID Date Data Source [id number] 03/17/2020 04:10:48 PM EDT [facility] Name Value Range Interpretation Description Data Sup porting Code Source(s) Document(s ) Thyrotropin 1.078 Normal (applies Thyroid [facility] [Mass/volume] {mIU/mL} to non-numeric Stimulating Health Sy stem in Serum or results) Hormone, Serum Plasma ID Date Data Source [id number] 03/17/2020 04:10:48 PM EDT [facility] [...] urine test abnormalities ID Date Data Source [id number] 03/17/2020 04:10:48 PM EDT [facility] Name Value Range Interpretation Description Data Sup porting Code Source(s) Document(s ) TroponinIQuantitative 0.01 Normal (applies Troponin I [facility] ng/ml to non-numeric Quantitative Health results) System ID Date Data Source [id number] 03/17/2020 04:10:48 PM EDT [facility] Name Value Range Interpretation Description Data Sup porting Code Source(s) Document(s ) aPTT in Blood 28.2 Normal (applies Activated [facility] by Coagulation {Seconds to non-numeric Partial Health assay } results) Thromboplastin System Time ID Date Data Source [id number] 03/17/2020 04:10:48 PM EDT [facility] [...] Heart = 3.0-4.5 ID Date Data Source [id number] 03/17/2020 04:10:48 PM EDT [facility] [...] Health System results) ID Date Data Source [id number] 03/17/2020 04:10:48 PM EDT [facility] [...] by Automated count ID Date Data Source [id number] 03/17/2020 04:10:48 PM EDT [facility] [...] urine test abnormalities ID Date Data Source [id number] 03/17/2020 04:10:48 PM EDT [facility] Name Value Range Interpretation Description Data Sup porting Code Source(s) Document(s ) Bacteria NO GROWTH Culture [facility] identified in Bacteria Blood Health Syst em Blood by [facility] culture ID Date Data Source [id number] 03/17/2020 04:10:48 PM EDT [facility] Name Value Range Interpretation Description Data Sup porting Code Source(s) Document(s ) Bacteria NO GROWTH Culture [facility] identified in Bacteria Blood Health Syst em Blood by [facility] culture ID Date Data Source [id number] 03/17/2020 04:10:48 PM EDT [facility] System Name Value Range Interpretation Description Data Source(s ) Supporting Code Document(s ) ReninLev 22.15 Above high normal Renin Level, [facility] el,Serum ng/mL/h Serum Health System Test performed by: [facility] [address] [address] Test Performed at: [facility] [employer], [facility], [address] [place] [id number] Tylor vigil ID Date Data Source [id number] 03/17/2020 04:10:48 PM EDT [facility] [...] 16 ng/dL This test was performed at: [employer] [address] [address] Test Performed at: [facility] [employer] [facility], [address] [place] [address] Hardeep Slater M.D., Ph.D. ID Date Data Source [id number] 03/17/2020 04:10:48 PM EDT [facility] [...] System Automated count ID Date Data Source [id number] 03/17/2020 04:10:48 PM EDT [facility] Name Value Range Interpretation Description Data Sup porting Code Source(s) Document(s ) Thyrotropin 0.811 Normal (applies Thyroid [facility] [Mass/volume] {mIU/mL} to non-numeric Stimulating Health Sy stem in Serum or results) Hormone, Serum Plasma ID Date Data Source [id number] 03/17/2020 04:10:48 PM EDT [facility] [...] urine test abnormalities ID Date Data Source [id number] 03/17/2020 04:10:48 PM EDT [facility] Name Value Range Interpretation Description Data Source(s ) Supporting Code Document(s ) LacticAc 1.66 Normal (applies to Lactic Acid, [facility] re id,Plasm {mEq/L} non-numeric Plasma *[facility] a*MOUNT[facility] results) [facility]AK[facility] ONLY* ERNONONL Y* ID Date Data Source [id number] 03/17/2020 04:10:48 PM EDT [facility] [...] System Automated count ID Date Data Source [id number] 03/17/2020 04:10:48 PM EDT [facility] [...] urine test abnormalities ID Date Data Source [id number] 03/17/2020 04:10:48 PM EDT [facility] [...] Health System . ID Date Data Source [id number] 03/17/2020 04:10:48 PM EDT [facility] [...] System Automated count ID Date Data Source [id number] 03/17/2020 04:10:48 PM EDT [facility] [...] urine test abnormalities ID Date Data Source [id number] 03/17/2020 04:10:48 PM EDT [facility] [...] System Automated count ID Date Data Source [id number] 03/17/2020 04:10:48 PM EDT [facility] [...] urine test abnormalities ID Date Data Source [id number] 03/17/2020 04:10:48 PM EDT [facility] System Name Value Range Interpretation Code Description Data Mariana rce(s) Supporting Document(s ) Lipase 6 U/L Below low normal Lipase, Serum [facility] [Enzymatic Health System activity/vo lume] in Serum or Plasma ID Date Data Source [id number] 03/17/2020 04:10:48 PM EDT [facility] Name Value Range Interpretation Description Data Sup porting Code Source(s) Document(s ) Amylase 98 {IU/L} Normal (applies to Amylase, Serum [facility] [Enzymatic non-numeric Health System activity/vo results) lume] in Serum or Plasma ID Date Data Source [id number] 03/17/2020 04:10:48 PM EDT [facility] [...] System Automated count ID Date Data Source [id number] 03/17/2020 04:10:48 PM EDT [facility] [...] urine test abnormalities ID Date Data Source [id number] 03/17/2020 04:10:48 PM EDT Tory Hidalgo alth System Name Value Range Interpretation Description Data Sup porting Code Source(s) Document(s ) TroponinIQuantitative 0.01 Normal (applies Troponin I [facility] ng/ml to non-numeric Quantitative Health results) System ID Date Data Source [id number] 03/17/2020 04:10:48 PM EDT Tory Hidalgo alth System Name Value Range Interpretation Description Data Sup porting Code Source(s) Document(s ) Cortisol 13.5 Normal (applies Cortisol, [facility] [Mass/volume {mcg/dL} to non-numeric Serum Health Syste m ] in Serum results) or Plasma REFERENCE RANGE Cortisol AM 4.0 - 22.0 mcg/dL Cortisol PM 3.0 - 17.0 mcg /dL Test Performed at: [facility], [place] [address] Zach Hough M.D. ID Date Data Source [id number] 03/17/2020 04:10:48 PM EDT Tory Hidalgo alth System Name Value Range Interpretation Description Data Source(s ) Supporting Code Document(s ) TotalVol 2500.00 Normal (applies to Total Volume [facility] ume(mL) mL non-numeric (mL) Health System results) This test was performed at:[facility] [address] [address]Obnc Pe rformed at:[facility] [address] [address]FterdzdJatin Slater M.D., Ph.D. [id number] see noteResults Normal Epinephrine 2 4 Hr [facility] are below the (applies to Urine Health reportable non-numeric System range for results) thisanalyte, which is 2.0 mcg/L. Mylakqvzyqmjni81NmSdcoh 26.00 Normal Norepinephrine 2 4 [facility] {mcg/24_h} (applies to Hr Urine Health non-numeric System results) CalculatedTotal(E+NE) 26.00 Normal Calculated Total M [facility] {mcg/24_h} (applies to (E+NE) Health non-numeric System results) Zdjwiccv45AqruWbcnp 140.00 Normal Dopamine 24 Hour [facility] {mcg/24_h} (applies to Urine Health non-numeric System results) This test was performed at:[facility] [address] [address]Skwl Pe rformed at:[facility] [address] [address]NsxxdanJatin Slater M.D., Ph.D. ID Date Data Source [id number] 03/17/2020 04:10:48 PM EDT [facility] System Name Value Range Interpretation Description [...] System talUrine results) ID Date Data Source [id number] 03/17/2020 04:10:48 PM EDT [facility] [...] System Automated count ID Date Data Source [id number] 03/17/2020 04:10:48 PM EDT [facility] [...] urine test abnormalities ID Date Data Source [id number] 03/17/2020 04:10:48 PM EDT [facility] System Name Value Range Interpretation Description Data Sup porting Code Source(s) Document(s ) TroponinIQuantitative 0.00 Normal (applies Troponin I [facility] ng/ml to non-numeric Quantitative Health results) System ID Date Data Source [id number] 03/17/2020 04:10:48 PM EDT [facility] alth [...] System Automated count ID Date Data Source [id number] 03/17/2020 04:10:48 PM EDT [facility] [...] urine test abnormalities ID Date Data Source [id number] 03/17/2020 04:10:[address] [facility] [place] alth System Name Value Range Interpretation Description Data Sup porting Code Source(s) Document(s ) TroponinIQuantitative 0.00 Normal (applies Troponin I [facility] ng/ml to non-numeric Quantitative Health results) System ID Date Data Source [id number] 03/17/2020 04:10:48 PM EDT [facility] alth System Name Value Range Interpretation Description Data Sup porting Code Source(s) Document(s ) Creatine 67 {IU/L} Normal (applies Creatine [facility] kinase.MB to non-numeric Kinase, Serum Health Syst em [Mass/volume results) ] in Serum or Plasma ID Date Data Source [id number] 03/17/2020 04:10:[address] [facility] [place] alth System Name Value Range Interpretation Description Data Sup porting Code Source(s) Document(s ) TroponinIQuantitative 0.00 Normal (applies Troponin I [facility] ng/ml to non-numeric Quantitative Health results) System ID Date Data Source [id number] 03/17/2020 04:10:48 PM EDT [facility] System Name Value Range Interpretation Description Data Sup porting Code Source(s) Document(s ) TroponinIQuantitative 0.00 Normal (applies Troponin I [facility] ng/ml to non-numeric Quantitative Health results) System ID Date Data Source [id number] 03/17/2020 04:10:48 PM EDT [facility] System Name Value Range Interpretation Description Data Sup porting Code Source(s) Document(s ) HepatitisCRati 0.02 {Ratio} Normal (applies Hepatitis C [facility]ash [facility] o to non-numeric Ratio Health results) System HepatitisBSurf DNRTest Normal (applies Hepatitis B [facility] aceAntigenNeut Performed to non-numeric [facility] at:[facility] [employer] results) Antigen Neut [facility], [place], [place] Rickie Hough M.D. HepatitisBCore Non Normal (applies Hepatitis B [facility] AntibodyIgM ReactiveReferen to non-numeric [facility] ce Range: Non results) Antibody IgM System Reactive Hepatitis A NonreactiveRefe Normal (applies Hepatitis A [facility] IgM antibody rence Range: to non-numeric IgM Antibody Health test NonreactiveTest results) System (procedure) Performed at:[facility], [place], [place] Rickie Hough M.D. HepatitisBSurf Non Normal (applies Hepatitis B [facility] aceAntigen. ReactiveReferen to non-numeric [facility] ce Range: Non results) Antigen. System Reactive HepatitisCVira Non Normal (applies Hepatitis C [facility] lAntibody ReactiveReferen to non-numeric [facility] ce Range: Non results) Antibody System Reactive ID Date Data Source [id number] 03/17/2020 04:10:48 PM EDT [facility] System Name Value Range Interpretation [...] urine test abnormalities ID Date Data Source [id number] 03/17/2020 04:10:48 PM EDT [facility] System Name Value Range Interpretation Description Data Sup porting Code Source(s) Document(s ) aPTT in Blood 28.2 Normal (applies Activated [facility] by Coagulation {Seconds to non-numeric Partial Health assay } results) Thromboplastin System Time ID Date Data Source [id number] 03/17/2020 04:10:48 PM EDT [facility] alth [...] Heart = 3.0-4.5 ID Date Data Source [id number] 03/17/2020 04:10:48 PM EDT [facility] [...] System Automated count ID Date Data Source [id number] 03/17/2020 04:10:48 PM EDT [facility] System Name Value Range Interpretation Code Description Data Mariana rce(s) Supporting Document(s ) HbA1C 5.5 % Normal (applies to HbA1C [facility] non-numeric results) System ID Date Data Source [id number] 03/17/2020 04:10:48 PM EDT [facility] alth [...] levels are> or = 30 ng/mL.Test Performed at:[facility], [address] vigil M.D. ID Date Data Source [id number] 03/17/2020 04:10:48 PM EDT [facility] System Name Value Range Interpretation Description Data Sup porting Code Source(s) Document(s ) Color YELLOW Normal (applies Color [facility] to non-numeric Health results) System Appearance of CLEAR Normal (applies Urine [facility] Urine to non-numeric Appearance Health results) System Specific gravity 1.015 Normal (applies Urine Specific Mo [facility] of Urine to non-numeric [facility] results) System pH.. 8.5 Above high [...] Health results) System ID Date Data Source [id number] 03/17/2020 04:10:48 PM EDT [facility] [...] } results) System ID Date Data Source [id number] 03/17/2020 04:10:48 PM EDT [facility] System Name Value Range Interpretation Description Data Sup porting Code Source(s) Document(s ) Thyrotropin 0.580 Normal (applies Thyroid [facility] [Mass/volume] {mIU/mL} to non-numeric Stimulating Health Sy stem in Serum or results) Hormone, Serum Plasma ID Date Data Source [id number] 03/17/2020 04:10:48 PM EDT [facility] alth [...] urine test abnormalities ID Date Data Source [id number] 03/17/2020 04:10:48 PM EDT Tory gerardo System [...] Serum or Plasma results) <200 mg/dL = Pueohqjgv778 - 239 md/dL = Borderline>240 mg/dL = [...] VLDL 16.6 Normal (applies to VLDL, Serum [facility] [Mass/volume] in Serum non-numeric results) System or Plasma CHDRisk 2.88 Normal (applies to CHD Risk [facility] non-numeric results) System ID Date Data Source [id number] 03/17/2020 04:10:48 PM EDT [facility] System Name Value Range Interpretation Code Description Data Mariana rce(s) Supporting Document(s ) HbA1C 5.5 % Normal (applies to HbA1C [facility] non-numeric results) System ID Date Data Source [id number] 03/17/2020 04:10:48 PM EDT [facility] System Name Value Range Interpretation Description Data Source(s ) Supporting Code Document(s ) Blood,Oc POSITIVE Normal (applies to Blood, Occult [facility] cultFece non-numeric Feces Health System s results) ID Date Data Source [id number] 03/17/2020 04:10:48 PM ED[facility] System Name Value Range Interpretation [...] Heart = 3.0-4.5 ID Date Data Source [id number] 03/17/2020 04:10:48 PM EDT [facility] System Name Value Range Interpretation [...] Health } System ID Date Data Source [id number] 03/17/2020 04:10:48 PM EDT [facility] [...] urine test abnormalities ID Date Data Source [id number] 03/17/2020 04:10:48 PM EDT [facility] System Name Value Range Interpretation Description Data Sup porting Code Source(s) Document(s ) Color YELLOW Normal (applies Color [facility] to non-numeric Health results) System Appearance of CLEAR Normal (applies Urine [facility] Urine to non-numeric Appearance Health results) System Specific gravity 1.010 Normal (applies Urine Specific Mo [facility] of Urine to non-numeric [facility] results) System pH.. 6.0 Normal (applies [...] non-numeric System results) ID Date Data Source [id number] 03/17/2020 04:10:48 PM EDT [facility] alth [...] suspected, a test for HCV RNA(test code 068859C) is suggested.Test Performed at:[facility], [place], [place] [address]Zach Hough M.D. ID Date Data Source [id number] 03/17/2020 04:10:48 PM EDT [facility] alth [...] Health } System ID Date Data Source [id number] 03/17/2020 04:10:48 PM EDT [facility] System Name Value Range Interpretation Description Data Source(s ) Supporting Code Document(s ) Lipase 20 U/L Normal (applies to Lipase, Serum [facility] [Enzymatic non-numeric Health System activity/vo results) lume] in Serum or Plasma ID Date Data Source [id number] 03/17/2020 04:10:48 PM EDT [facility] alth [...] urine test abnormalities ID Date Data Source [id number] 03/17/2020 04:10:48 PM EDT [facility] [place] [facility] System Name Value Range Interpretation Description Data Source(s ) Supporting Code Document(s ) Troponin 0.03 Normal (applies to Troponin I [facility] IQuantit ng/mL non-numeric Quantitative - Health System ative-MV results) MV Only Only ID Date Data Source [id number] 03/17/2020 04:10:48 PM EDT [facility] alth [...] Heart = 3.0-4.5 ID Date Data Source [id number] 03/17/2020 04:10:48 PM EDT [facility] [place] [facility] System Name Value Range Interpretation Description Data Sup porting Code Source(s) Document(s ) 58560-6 NEGATIVE Testing Normal (applies COVID-19.. [facility] [...] Range: NEGATIVE . ID Date Data Source [id number] 03/17/2020 04:10:48 PM EDT [facility] alth [...] Health } System ID Date Data Source [id number] 03/17/2020 04:10:48 PM EDT [facility] alth [...] urine test abnormalities ID Date Data Source [id number] 03/17/2020 04:10:48 PM EDT [facility] System Name Value Range Interpretation Code Description Data Mariana rce(s) Supporting Document(s ) EkH5FJr 124.96 Normal (applies to BzF4FKl [facility] non-numeric results) Health Sy stem tHbWB 3292.41 Normal (applies to tHbWB [facility] non-numeric results) Health Sy stem %HbA1C 5.62 % Normal (applies to %HbA1C [facility] non-numeric results) Health Sy stem ID Date Data Source [id number] 03/17/2020 04:10:48 PM EDT [facility] alth [...] Health } System ID Date Data Source [id number] 03/17/2020 04:10:48 PM EDT [facility] akin [...] [facility] aminotransferase {IU/L} to non-numeric Transaminase, Heal [Enzymatic results) Serum System activity/volume] in Serum [...] urine test abnormalities ID Date Data Source [id number] 03/17/2020 04:10:48 PM EDT Tory gerardo System [...] Health } System ID Date Data Source [id number] 03/17/2020 04:10:48 PM EDT [facility] alth [...] urine test abnormalities ID Date Data Source [id number] 03/17/2020 04:10:48 PM EDT [facility] System Name Value Range Interpretation Description Data Sup porting Code Source(s) Document(s ) 01959-0 NEGATIVE Testing Normal (applies COVID-19.. [facility] [...] Range: NEGATIVE . ID Date Data Source [id number] 03/17/2020 04:10:48 PM EDT [facility] alth [...] Health results) System ID Date Data Source [id number] 03/17/2020 04:10:48 PM EDT [facility] alth [...] urine test abnormalities ID Date Data Source [id number] 03/17/2020 04:10:48 PM EDT [facility] System Name Value Range Interpretation Description Data Sup porting Code Source(s) Document(s ) aPTT in Blood 25.2 Normal (applies Activated [facility] by Coagulation {Seconds to non-numeric Partial Health assay } results) Thromboplastin System Time ID Date Data Source [id number] 03/17/2020 04:10:48 PM EDT [facility] alth [...] urine test abnormalities ID Date Data Source [id number] 03/17/2020 04:10:48 PM EDT Tory Hidalgo alth [...] System Serum or Plasma <200 mg/dL = [id number] - 239 md/dL = Borderline>240 mg/dL = [...] System or Plasma ID Date Data Source [id number] 03/17/2020 04:10:48 PM EDT Tory Hidalgo alth System Name Value Range Interpretation Description Data Sup porting Code Source(s) Document(s ) Creatine 75 {IU/L} Normal (applies Creatine [facility] kinase.MB to non-numeric Kinase, Serum Health Syst em [Mass/volume results) ] in Serum or Plasma ID Date Data Source [id number] 03/17/2020 04:10:48 PM EDT Tory Hidalgo alth [...] by Manual count ID Date Data Source [id number] 03/17/2020 04:10:48 PM EDT [facility]th [...] urine test abnormalities ID Date Data Source [id number] 03/17/2020 04:10:48 PM EDT Montemike Hidalgo alth System Name Value Range Interpretation Description Data Sup porting Code Source(s) Document(s ) Cholesterol 170 Normal (applies Cholesterol, [facility] [Mass/volume] mg/dl to non-numeric Serum Health Syst em in Serum or results) Plasma <200 mg/dL = Jaymglqym713 - 239 md/dL = Borderline>240 mg/dL = High Risk Triglyceride 81 mg/dl Normal (applies Triglycerides, Serum [facility] [Mass/volume] in to non-numeric Health S ystem Serum or Plasma results) Optimal = < [...] ystem Serum or Plasma results) Cholesterol in VLDL 16.2 Normal (applies VLDL, Serum [facility] [Mass/volume] in to non-numeric Health S ystem Serum or Plasma results) CHDRisk 3.09 Normal (applies CHD Risk [facility] to non-numeric Health System results) ID Date Data Source [id number] 03/17/2020 04:10:48 PM EDT Tory Hidalgo alth System Name Value Range Interpretation Description Data Source(s ) Supporting Code Document(s ) Cytology See report Normal (applies to Cytology,Thinpr [facility]ash [facility] ,Thinpre non-numeric ep Pap Health System pPap results) ID Date Data Source [id number] 03/17/2020 04:10:48 PM EDT [facility] System Name Value Range Interpretation Description Data Sup porting Code Source(s) Document(s ) Human papilloma See Normal (applies Human [facility] virus DNA report to non-numeric Papilloma Health [Presence] in results) Virus DNA System Unspecified Detection specimen by Probe and signal amplification method ID Date Data Source [id number] 03/17/2020 04:10:48 PM EDT [facility] System Name Value Range Interpretation Description Data Sup porting Code Source(s) Document(s ) Deprecated Micro Result Normal (applies Aerobic [facility] Bacteria Final Culture to non-numeric Culture, Health identified Reading results) Urine System in Urine by Note::"MULTIPL Aerobe E BACTERIAL culture MORPHOTYPES PRESENT, POSSIBLE CONTAMINATION, SUGGEST RECOLLECTION IF CLINICALLY INDICATED". ID Date Data Source [id number] 03/17/2020 04:10:48 PM EDT [facility] al[facility] System Name Value Range Interpretation Description Data Sup porting Code Source(s) Document(s ) N.Gono DNR Test Performed Normal (applies N. [place] mike rrhoea at: [facility] to non-numeric Gonorrhoeae Health [facility], One results) [place] [address] Yaz Hayes M.D. Chlamy Not Normal (applies Chlamydia, [facility] yecenia,DN DetectedReference to non-numeric DNA Probe Health AProbe Range: Not Detected results) System Effective April 21, 2012 test code 281A, Chlamydia trachomatis/Neisser ia gonorrhoeae, Endocervical or Male Urethra, DNA Dual Probe with Reflex will no longer be offered. The home health travel pt of the test reagents will stop production of the assay as well as specimen collection devices mid-Summer of 2011. We recommend ordering test code 05274T, Chlamydia trachomatis/Neisser ia gonorrhoeae DNA, SDA which is a nucleic acid amplified assay superior in terms of sensitivity and is also the methodology recommended by the Centers for Disease Control and Prevention. C.Trac DNR Normal (applies C. [facility] homati to non-numeric [facility] sDNAPr results) DNA Probe System obe ID Date Data Source [id number] 03/17/2020 04:10:48 PM EDT [facility] System Name Value Range Interpretation Description Data Sup porting Code Source(s) Document(s ) Color YELLOW Normal (applies Color [facility] to non-numeric Health results) System Specific 1.020 Normal (applies Urine [facility] gravity of to non-numeric Specific Health Urine results) [facility] Appearance of CLEAR Normal (applies Urine [...] re [Mass/volume] in to non-numeric Health S ystem Unspecified specimen results) Negative Ketones [Mass/volume] NEGATIVE [...] Health System results) ID Date Data Source [id number] 03/17/2020 04:10:48 PM EDT [facility] alth [...] System Automated count ID Date Data Source [id number] 03/17/2020 04:10:48 PM EDT [facility] alth [...] urine test abnormalities ID Date Data Source [id number] 03/17/2020 04:10:48 PM EDT Tory gerardo System [...] Serum or Plasma results) <200 mg/dL = Nqprmutzr608 - 239 md/dL = Borderline>240 mg/dL = [...] non-numeric results) System ID Date Data Source [id number] 03/17/2020 04:10:48 PM EDT Tory gerardo System Name Value Range Interpretation Description Data Sup porting Code Source(s) Document(s ) Creatine 64 {IU/L} Normal (applies Creatine [facility] kinase.MB to non-numeric Kinase, Serum Health Syst em [Mass/volume results) ] in Serum or Plasma ID Date Data Source [id number] 03/17/2020 04:10:48 PM EDT [facility] System Name Value Range Interpretation Description Data Sup porting Code Source(s) Document(s ) INR in Blood Cancelled INR Result [facility] by Coagulation Health assay System Prothrombintim Cancelled Prothrombin [facility] e(PT) hemolysed time (PT) Health System ID Date Data Source [id number] 03/17/2020 04:10:48 PM EDT [facility] alth [...] System Automated count ID Date Data Source [id number] 03/17/2020 04:10:48 PM EDT [facility] akin [...] urine test abnormalities ID Date Data Source [id number] 03/17/2020 04:10:48 PM EDT [facility] System Name Value Range Interpretation Description Data Sup porting Code Source(s) Document(s ) TroponinIQuantitative 0.01 Normal (applies Troponin I [facility] ng/ml to non-numeric Quantitative Health results) System ID Date Data Source [id number] 03/17/2020 04:10:48 PM EDT [facility] System Name Value Range Interpretation Description Data Sup porting Code Source(s) Document(s ) Creatine 100 Normal (applies Creatine [facility] kinase.MB {IU/L} to non-numeric Kinase, Serum Health Syst em [Mass/volume results) ] in Serum or Plasma ID Date Data Source [id number] 03/17/2020 04:10:48 PM EDT [facility] alth [...] System Automated count ID Date Data Source [id number] 03/17/2020 04:10:48 PM EDT Montem[facility] gerardo System [...] Serum 9.40 Normal (applies Anion Gap Marino mike or [...] urine test abnormalities ID Date Data Source [id number] 03/17/2020 04:10:48 PM EDT Tory gerardo System Name Value Range Interpretation Description Data Sup porting Code Source(s) Document(s ) TroponinIQuantitative 0.02 Normal (applies Troponin I [facility] ng/ml to non-numeric Quantitative Health results) System ID Date Data Source [id number] 03/17/2020 04:10:48 PM EDT [facility] System Name Value Range Interpretation Description Data Sup porting Code Source(s) Document(s ) C.Trac Not Normal (applies C. [facility] homati DetectedReference to non-numeric [facility] sAmp Range: Not Detected results) Amp System N.Gono Not Normal (applies N. Gonorrhea [facility] rrheab DetectedReference to non-numeric by [facility] Health yLCR Range: Not Detected results) System This test was performed using the BD ProbeCrowdFanatic(TM) Chlamydia trachomatis and Neisseria gonorrhoeae Amplified DNA Assays. Test Performed at: [facility] [employer], [place] [address] Yaz Hayes M.D. ID Date Data Source [id number] 03/17/2020 04:10:48 PM EDT [facility] alth [...] results) System CYTOTECHNOLO SEE NOTEEMA, Normal (applies UNDERGROUND REPAIRER M [facility] GIST CT(ASCP) to non-numeric Health results) System COMMENTCYTO DNR Normal (applies COMMENT CYTO [facility] to non-numeric Health results) System REVIEWCYTOTE DNR Normal (applies REVIEW [facility] CHNOLOGIST to non-numeric UNDERGROUND REPAIRER Health results) System HPVHIGHRISK NOT Normal (applies HPV HIGH RISK [facility] DETECTEDRefe to non-numeric Health rence Range: results) System Not DetectedTest ed for High Risk types 16,18,31,33, 35,39,45,51, 52,56,58,59, 68.The analytical performance characterist ics of thisassay, when used to test Surepath or Vaginalspeci mens, have been determined by [employer] tics.Methodo logy: Hybrid Capture with signalamplif ication. Test Performed at: [facility], [place] [address] Yaz Hayes M.D. PATHOLOGIST. DNR Normal (applies PATHOLOGIST. Mina re to non-numeric Health results) System ID Date Data Source [id number] 03/17/2020 04:10:48 PM EDT [facility] System Name Value Range Interpretation Description Data Sup porting Code Source(s) Document(s ) Color YELLOW Normal (applies Color [facility] to non-numeric Health System results) Appearance of CLEAR Normal (applies Urine [facility] Urine to non-numeric Appearance Health System results) Specific 1.020 Normal (applies Urine Specific [facility] gravity of to non-numeric [facility] Urine results) Glucose,UA NEGATIVE Normal (applies Glucose, UA [facility] to non-numeric Health System results) Negative pH.. 6.5 {pH_units} Normal (applies pH.. [facility] to non-numeric Health System results) Protein NEGATIVE Normal (applies Protein [facility] [Mass/volume] in to non-numeric Health S ystem Serum or Plasma results) BilirubinUrine NEGATIVE Normal (applies Bilirubin Urine [facility] to non-numeric Health System results) Urobilinogen 0.20 {eu/dL} Normal (applies Urobilinogen UA [facility] [Mass/volume] in to non-numeric Health S ystem Urine results) Ketones NEGATIVE Normal (applies Ketones UA [facility] [Mass/volume] in to non-numeric Health S ystem Urine results) Negative Nitrate+Nitrite NEGATIVE Normal (applies [...] Health System results) ID Date Data Source [id number] 03/17/2020 04:10:48 PM EDT [facility] alth [...] System Automated count ID Date Data Source [id number] 03/17/2020 04:10:48 PM EDT [facility] He akin [...] 14.00 mmol/L Above high normal Anion Gap [employer] [facility] Health or Plasma System ID Date Data Source [id number] 03/17/2020 04:10:48 PM EDT [facility] alth System Name Value Range Interpretation Description [...] similar clinical symptoms. ID Date Data Source [id number] 03/17/2020 04:10:48 PM EDT [facility] alth System Name Value Range Interpretation Code [...] Urine. Health System results) Test Performed at: [facility] [facility] - [facility] , [place] [address] Yaz Hayes M.D. ID Date Data Source [id number] 03/17/2020 04:10:48 PM EDT [facility] [...] its performancecharacteristi cs have been determined [place]Performance characteristics refer to theanalytical performance of the test. This test was performed at: [facility] [address] Test Performed at: [facility], [address] [place] [address] Selvin Gibson MD,PhD 1,25D 58 pg/mL Normal (applies 1,25Dihydrox [facility] ihydr to non-numeric y [facility] oxyVi results) System t-D ID Date Data Source [id number] 03/17/2020 04:10:48 PM EDT [facility] [...] or = 30 ng/mL. Test Performed at: [facility], [place] [address] Yaz Hayes M.D. ID Date Data Source [id number] 03/17/2020 04:10:48 PM EDT [facility] akin [...] System Automated count ID Date Data Source [id number] 03/17/2020 04:10:48 PM EDT [facility] [...] [facility] aminotransferase {IU/L} to non-numeric Transaminase, Heal [Enzymatic results) Serum System activity/volume] in Serum [...] urine test abnormalities ID Date Data Source [id number] 03/17/2020 04:10:48 PM EDT Tory gerardo System [...] [facility] [Mass/volume] in to non-numeric Health S yste Serum or Plasma results) <200 mg/dL = [id number] - 239 md/dL = Borderline>240 mg/dL = [...] VLDL 17 Normal (applies to VLDL, Serum [facility] [Mass/volume] in Serum non-numeric results) System or Plasma CHDRisk 3.68 Normal (applies to CHD Risk [facility] Health non-numeric results) System ID Date Data Source [id number] 03/17/2020 04:10:48 PM EDT [facility] [...] DNR Previously released as (1) on Nor [facility] GENERAL [facility] N 08/17/2014, 02:04 PM by P - (1) - (applies to [employer]ANCY [employer] DNRPreviously released as (2) on non-numeric TION [...] INTERPRETATION/RESUL SEE NOTENegative for intraepithelial Normal INTERPRETA [facility] lesion or malignancy. Previously (applies to [...] INTERPRETATION/RESUL DNR Previously released as (1) on [facility] INTERPRETA [facility] T2 08/17/2014, 02:04 PM by P - (1) - (applies to TION /[facility] DNRPreviously released as (2) on non-numeric [...] PM by P - (5) - DNR UNDERGROUND REPAIRER SEE NOTECMP, CT(ASCP) Previously Normal CYTOTECHNO [facility] released as (1) on 08/17/2014, 02:04 PM (app[facility] t [facility] by P - (1) - SEE [...] released as (1) on Nor mal REVIEW [facility] ST 08/17/2014, 02:04 PM by P - [...] performed using non-numeric System the APTIMA HPV Assay([employer] results) This assay detects E6/E7 viralmessenger RNA (mRNA) from 14 high-risk HPV types(16,18,31,33,35,39,45,51,52,56,58, 59,66,68). Test Performed at: [facility] - [facility], [place] [address] Yaz Hayes M.D. Previously released as (1) on 08/17/2014, 02:04 PM by P - (1) - Not DetectedReference Range: NOT DETECTEDREFERENCE RANGE: NOT DETECTEDThis test was performed using the APTIMA HPV Assay([employer] This assay detects E6/E7 viralmessenger RNA (mRNA) from 14 high-risk HPV types(16,18,31,33,35,39,45,51,52,56,58, 59,66,68). Test Performed at: [facility], [place] [address]Shahnaz Hayes M.D.Previously released as (2) on 08/17/2014, 02:02 PM by P - (2) - Not DetectedReference Range: NOT DETECTEDREFERENCE RANGE: NOT DETECTEDThis test was performed using the APTIMA HPV Assay([employer]LastRoomProbe IncKeaton). This assay detects E6/E7 viralmessenger RNA (mRNA) from 14 high-risk HPV types(16,18,31,33,35,39,45,51,52,56,58, 59,66,68). Test Performed at: [facility], [place] [address] Yaz Hayes M.D.Previously released as (3) on 08/17/2014, 02:00 PM by P - (3) - Not DetectedReference Range: NOT DETECTEDREFERENCE RANGE: NOT DETECTEDThis test was performed using the APTIMA HPV Assay(GenLastRoomProbe IncKeaton). This assay detects E6/E7 viralmessenger RNA (mRNA) from 14 high-risk HPV types(16,18,31,33,35,39,45,51,52,56,58, 59,66,68). Test Performed at: [facility], [place] [address]Shahnaz Hayes M.D.Previously released as (4) on 08/17/2014, 01:57 PM by P - (4) - Not DetectedReference Range: NOT DETECTEDREFERENCE RANGE: NOT DETECTEDThis test was performed using the APTIMA HPV Assay([employer]LastRoomProbe IncKeaton). This assay detects E6/E7 viralmessenger RNA (mRNA) from 14 high-risk HPV types(16,18,31,33,35,39,45,51,52,56,58, 59,66,68). Test Performed at: [facility], [place] [address] Yaz Hayes M.D.Previously released as (5) on 08/17/2014, 01:55 PM by - (5) - Not DetectedReference Range: NOT DETECTEDREFERENCE RANGE: NOT DETECTEDThis test was performed using the APTIMA HPV Assay([employer]EX Inc.). This assay detects E6/E7 viralmessenger RNA (mRNA) from 14 high-risk HPV types(16,18,31,33,35,39,45,51,52,56,58, 59,66,68). Test Performed at: [facility], [place] [address] Yaz Hayes M.D. ID Date Data Source [id number] 03/17/2020 04:10:48 PM EDT [facility] [...] System Automated count ID Date Data Source [id number] 03/17/2020 04:10:48 PM EDT [facility] System Name Value Range Interpretation Description Data Sup porting Code Source(s) Document(s ) Thyrotropin 0.844 Normal (applies Thyroid [facility] [Mass/volume] to non-numeric Stimulating Health Sy stem in Serum or results) Hormone, Serum Plasma ID Date Data Source [id number] 03/17/2020 04:10:48 PM EDT [facility] [...] [facility] aminotransferase {IU/L} to non-numeric Transaminase, Heal [Enzymatic results) Serum System activity/volume] in Serum [...] urine test abnormalities ID Date Data Source [id number] 03/17/2020 04:10:48 PM EDT Tory gerardo System [...] Serum or Plasma results) <200 mg/dL = Hgkywqjuz843 - 239 md/dL = Borderline>240 mg/dL = [...] CHDRisk 3.38 Normal (applies to CHD Risk [facility] non-numeric results) System ID Date Data Source [id number] 03/17/2020 04:10:48 PM EDT [facility] System Name Value Range Interpretation Description Data Sup porting Code Source(s) Document(s ) Bacteria NO GROWTH Culture [facility] identified in Bacteria Blood Health Syst em Blood by Aerobe culture ID Date Data Source [id number] 03/17/2020 04:10:48 PM EDT [facility] System Name Value Range Interpretation Description Data Sup porting Code Source(s) Document(s ) Bacteria NO GROWTH Culture [facility] identified in Bacteria Blood Health Syst em Blood by Aer[facility] culture ID Date Data Source [id number] 03/17/2020 04:10:48 PM EDT [facility] [...] System Automated count ID Date Data Source [id number] 03/17/2020 04:10:48 PM EDT [facility] [...] urine test abnormalities ID Date Data Source [id number] 03/17/2020 04:10:48 PM EDT Tory gerardo System Name Value Range Interpretation Description Data Source(s ) Supporting Code Document(s ) Microalb 15 Normal (applies to Microalbumin: [facility] umin:CRR {mcg/mg_C non-numeric CR Ratio Health System [...] within a diagnostic category. Test Performed at: [facility], [place] [address] Zach Hough M.D. Creatinine,Urine. 345.00 mg/dL Above high Creatinine, Urine. [facility] normal System Test Performed at: [facility], [place] [address] Zach Hough M.D. ID Date Data Source [id number] 03/17/2020 04:10:48 PM EDT [facility] System Name Value Range Interpretation Description Data Source(s ) Supporting Code Document(s ) [id number] 1.20 Normal (applies to T4 Free [facility] alysis ng/dL non-numeric Dialysis Health System results) This test was performed at: [facility] [address] Test Performed at: [email or web address] [facility], [address] [place] [address] Hardeep jung M.D., Ph.D. ID Date Data Source [id number] 03/17/2020 04:10:48 PM EDT [facility] System Name Value Range Interpretation Description Data [...] or = 30 ng/mL. Test Performed at: [facility], [place] [address] Zach Hough M.D. ID Date Data Source [id number] 03/17/2020 04:10:48 PM EDT Tory gerardo System Name Value Range Interpretation Description Data Sup porting Code Source(s) Document(s ) Color YELLOW Normal (applies Color [facility] to non-numeric Health results) System Appearance of CLEAR Normal (applies Urine [facility] Urine to non-numeric Appearance Health results) System Specific gravity > =1.030 Normal (applies Urine Specific Mo [facility] of Urine to non-numeric [facility] results) System pH.. 6.0 Normal (applies [...] Health results) System ID Date Data Source [id number] 03/17/2020 04:10:48 PM EDT [facility] [...] System Automated count ID Date Data Source [id number] 03/17/2020 04:10:48 PM EDT [facility] System Name Value Range Interpretation Description Data Sup porting Code Source(s) Document(s ) Thyrotropin 1.099 Normal (applies Thyroid [facility] [Mass/volume] to non-numeric Stimulating Health Sy stem in Serum or results) Hormone, Serum Plasma ID Date Data Source [id number] 03/17/2020 04:10:48 PM EDT [facility] [...] urine test abnormalities ID Date Data Source [id number] 03/17/2020 04:10:48 PM EDT Tory gerardo System [...] [facility] [Mass/volume] in to non-numeric Health S yste Serum or Plasma results) <200 mg/dL = Gwgsxglec474 - 239 md/dL = Borderline>240 mg/dL = High Risk Cholesterol in HDL 57.0 mg/dL Normal (applies HDL Cholestero l, [facility] [Mass/volume] in to non-numeric Serum Health S yste Serum or Plasma results) Cholesterol in LDL 112.2 mg/dL Normal (applies Low Density M [facility] [Mass/volume] in to non-numeric Lipoprotein, Healt h System Serum or Plasma results) Calculated OPTIMAL: LESS THAN 100 mg/dLNEAR OPTIMAL : 100 - 129 mg/dLBODERLINE HIGH: 130 - 150 mg/dL Cholesterol in VLDL 18.8 Normal (applies to VLDL, Serum [facility] [Mass/volume] in Serum non-numeric results) System or Plasma CHDRisk 3.30 Normal (applies to CHD Risk [facility] non-numeric results) System ID Date Data Source [id number] 03/17/2020 04:10:48 PM EDT [facility] System Name Value Range Interpretation Code Description Data Mariana rce(s) Supporting Document(s ) HbA1C 5.9 % Normal (applies to HbA1C [facility] non-numeric results) System ID Date Data Source [id number] 03/17/2020 04:10:48 PM EDT [facility] System Name Value Range Interpretation Description Data Sup porting Code Source(s) Document(s ) Deprecated Micro Result Normal (applies Aerobic [facility] Bacteria Final Culture to non-numeric Culture, Health identified Reading results) Urine System in Urine by Note::"MULTIPL [facility] E BACTERIAL culture MORPHOTYPES PRESENT, POSSIBLE CONTAMINATION, SUGGEST RECOLLECTION IF CLINICALLY INDICATED". ID Date Data Source [id number] 03/17/2020 04:10:48 PM ED[address] [facility] Name Value Range Interpretation Description Data Sup porting Code Source(s) Document(s ) Color YELLOW Normal (applies Color [facility] to non-numeric Health results) System Appearance of CLEAR Normal (applies Urine [facility] Urine to non-numeric Appearance Health results) System Specific gravity 1.015 Normal (applies Urine Specific Mo [facility] of Urine to non-numeric [facility] results) System pH.. 8.0 Normal (applies [...] Health results) System ID Date Data Source [id number] 03/17/2020 04:10:48 PM EDT [facility] [...] System Automated count ID Date Data Source [id number] 03/17/2020 04:10:48 PM EDT [facility] [...] urine test abnormalities ID Date Data Source [id number] 03/17/2020 04:10:48 PM EDT [facility] System Name Value Range Interpretation Description Data Sup porting Code Source(s) Document(s ) TroponinIQuantitative 0.01 Normal (applies Troponin I M [facility] ng/ml to non-numeric Quantitative Health results) System ID Date Data Source [id number] 03/17/2020 04:10:48 PM EDT [facility] System Name Value Range Interpretation Description Data Sup porting Code Source(s) Document(s ) Creatine 56 {IU/L} Normal (applies Creatine [facility] kinase.MB to non-numeric Kinase, Serum Health Syst em [Mass/volume results) ] in Serum or Plasma ID Date Data Source [id number] 03/17/2020 04:10:48 PM EDT [facility] [...] Heart = 3.0-4.5 ID Date Data Source [id number] 03/17/2020 04:10:48 PM EDT [facility] [...] System Automated count ID Date Data Source [id number] 03/17/2020 04:10:48 PM EDT [facility] System Name Value Range Interpretation Description Data Sup porting Code Source(s) Document(s ) Natriuretic < 10.0 Normal (applies B-Type [facility] peptide B to non-numeric Natriuetic Health System [Mass/volume] results) Peptide in Serum or Plasma ID Date Data Source [id number] 03/17/2020 04:10:48 PM EDT [facility] [...] urine test abnormalities ID Date Data Source [id number] 03/17/2020 04:10:48 PM EDT [facility] System Name Value Range Interpretation Description Data Sup porting Code Source(s) Document(s ) TroponinIQuantitative 0.00 Normal (applies Troponin I M [facility] ng/ml to non-numeric Quantitative Health results) System ID Date Data Source [id number] 03/17/2020 04:10:48 PM EDT [facility] [...] System Serum or Plasma <200 mg/dL = Tgyqsenul562 - 239 md/dL = Borderline>240 mg/dL = High Risk Cholesterol in HDL 67.0 mg/dL Normal (applies HDL Cholestero l, [facility] [Mass/volume] in to non-numeric Serum Health S yste Serum or Plasma results) Cholesterol in LDL [...] CHDRisk 3.12 Normal (applies to CHD Risk [facility] non-numeric results) System ID Date Data Source [id number] 03/17/2020 04:10:48 PM EDT [facility] System Name Value Range Interpretation Code Description Data Mariana rce(s) Supporting Document(s ) HbA1C 6.1 % Normal (applies to HbA1C [facility] Health non-numeric results) System ID Date Data Source [id number] 03/17/2020 04:10:48 PM EDT [facility] System Name Value Range Interpretation Description Data Sup porting Code Source(s) Document(s ) TroponinIQuantitative 0.01 Normal (applies Troponin I M [facility] ng/ml to non-numeric Quantitative Health results) System ID Date Data Source [id number] 03/17/2020 04:10:48 PM EDT [facility] System Name Value Range Interpretation Description Data Sup porting Code Source(s) Document(s ) Color YELLOW Normal (applies Color [facility] to non-numeric Health results) System Appearance of CLEAR Normal (applies Urine [facility] Urine to non-numeric Appearance Health results) System Specific gravity 1.010 Normal (applies Urine Specific Mo [facility] of Urine to non-numeric [facility] results) System pH.. 7.0 Normal (applies [...] Health results) System ID Date Data Source [id number] 03/17/2020 04:10:48 PM EDT [facility] [...] 200 ng/mL Cocaine Negative Normal (applies Cocaine [facility] metabolites.other to non-numeric Metabolite Health System [Mass/volume] in Urine results) Screen, Urine Cut-off = 300 ng/mL Methadone Negative Normal (applies to Methadone Level, [facility] [Mass/volume] in non-numeric Urine System Urine results) Cut-off = 300 ng/mL Lmllkh196,Urine Negative Normal (applies to Opiate 300, [facility] non-numeric results) Urine System Cut-off = 300 ng/mL Phencyclidine Negative Normal (applies Phencyclidine, Urine [facility] [Mass/volume] in to non-numeric Health S ystem Urine results) Cut-off = 25 ng/mL THC Negative Normal (applies to non-numeric resul ts) THC [facility] System Cutt-off = 50These results are for medic al treatment only. The positive findings are unconfirmed. Request confirmatory/quanti tative test if needed. ID Date Data Source [id number] 03/17/2020 04:10:48 PM EDT [facility] [...] Health System results) ID Date Data Source [id number] 03/17/2020 04:10:48 PM EDT [facility] [...] System Automated count ID Date Data Source [id number] 03/17/2020 04:10:48 PM EDT [facility] akin [...] or results) Plasma ID Date Data Source [id number] 03/17/2020 04:10:48 PM EDT [facility] [...] Health results) System ID Date Data Source [id number] 03/17/2020 04:10:48 PM EDT [facility] [...] Heart = 3.0-4.5 ID Date Data Source [id number] 03/17/2020 04:10:48 PM EDT [facility] System Name Value Range Interpretation Description Data Source(s ) Supporting Code Document(s ) B-TypeNa 20.9 Normal (applies to B-Type [facility] triuetic pg/mL non-numeric Natriuetic Health System Peptide- results) Peptide - MV MVOnly Only ID Date Data Source [id number] 03/17/2020 04:10:48 PM EDT [facility] [...] mean 77.7 fl Below low normal MCV [facility] iore corpuscular Health volume [Entitic System volume] [...] Health } System ID Date Data Source [id number] 03/17/2020 04:10:48 PM EDT [facility] System Name Value Range Interpretation Description Data Sup porting Code Source(s) Document(s ) Magnesium 1.6 Normal (applies Magnesium, [facility] [Mass/volume] {mEq/L} to non-numeric Serum Health Syst em in Serum or results) Plasma ID Date Data Source [id number] 03/14/2020 07:09:00 AM EDT [facility] STUDY: X-RAY CHESTREASON FOR EXAM: Haim marsh, 69 years old. intermittent coughwith thick sputum, N/V;TECHNIQUE: portable APCOMPARISON: March. __FINDINGS:The trachea is midline.The cardiac,mediastinal and pulmonary vascul ar shadows arenormal. Aorta is calcified.There is no focal consolidatio nor significant effusion.Osseous structures appearintact. IMPRESSION:Normal x-ray examination of thechest. No significant changeElect ronically Signed:Sachin Ramirez, at 8:43 [phone], Service florez pport , [phone] Name Value Range Interpretation Code Description Data Mariana rce(s) Supporting Document(s ) ID Date Data Source [id number] 03/12/2020 02:45:00 PM EDT [facility] Name Value Range Interpretation Code Description Data Mariana rce(s) Supporting Document(s ) COVID-19.. [facility] This lab was ordered by [facility] and reported by [facility]. ID Date Data Source [id number] 03/09/2020 03:01:00 PM EDT [facility] Examination:Complete sonogram of the fe male pelvis, nonobstetric.Indication:Female, 69 years old. pelvic mass;Technique:Tra nsvaginal grayscale and Doppler sonography of thefemalepelvis.Comparison:CT scan of [facility] abdomen03/08/2020 Findings:Uterus: 10. 5 x 7.5 x [...] Witt,at 15:57 EDTTel , Service support , [phone] Name Value Range Interpretation Code Description Data Mariana rce(s) Supporting Document(s ) ID Date Data Source [id number] 03/09/2020 03:01:00 PM EDT [facility] Examination:Abdominal sonogramIndication :Female, 69 years old. [...] Witt, at 15:51 EDTTel ,Service support , [phone] Name Value Range Interpretation Code Description Data Mariana rce(s) Supporting Document(s ) ID Date Data Source [id number] 03/08/2020 07:51:00 PM EDT [facility] Chest radiograph (one view)CLINICAL INF ORMATION: dysphagia;TECHNIQUE: Portable view of the chest was obtained.FINDINGS: No previous examinations are available for review.The lungs are clear. Nopleural a bnormality is seen.The heart size is normal. The mediastinum appears intact.IMPRESSIO N:No evidence of active chest disease.Electronically Signed:Asim lucero, at 20:13EDTTel , Service support , [phone] Name Value Range Interpretation Code Description Data Mariana rce(s) Supporting Document(s ) ID Date Data Source [id number] 03/08/2020 05:41:00 PM EDT [facility] CT Abdomen and Pelvis with IV contrastCL [...] Marcus, at 18:34 EDTTel , Servicesupport , [phone] Name Value Range Interpretation Code Description Data Mariana rce(s) Supporting Document(s ) ID Date Data Source [id number] 03/08/2020 05:38:00 PM EDT [facility] Name Value Range Interpretation Code Description Data [facility] rce(s) Supporting Document(s ) COVID-19.. [facility] This lab was ordered by [facility] and reported by [facility]. ID Date Data Source [id number] 03/08/2020 02:05:00 AM EDT [facility] Name Value Range Interpretation Description Data Sup porting Code Source(s) Document(s ) SARS [facility] coronavirus 2 RNA This lab was ordered by Nereida Shukla and reported by [facility]. ID Date Data Source [id number] 02/26/2020 05:14:00 AM EDT [facility] Patient Name: JHONATAN OROZCO ANEMRN: [id number] Computed TomographyACCESSIO N EXAM DATE/TIME PROCEDURE ORDERING PROVIDER STATUSCT-20- [id number] 02/26/2020 05:[address] Soft Tissue Neck Vj LAFLEUR, Auth (V erified) W Mariia Reed [...] evaluation of this pa tient. Final Dictated: Donny LAFLEUR, Yas Brink 02/26/20 05:09Signed: Yas Woods MD 02/26/20 05:14Transcribed by: [facility] Name Value Range Interpretation Code Description Data Mariana rce(s) Supporting Document(s ) ID Date Data Source [id number] 02/26/2020 05:09:00 AM EDT [facility] Patient Name: JHONATAN OORZCO ANEMRN: [id number] Computed TomographyACCESSIO N EXAM DATE/TIME PROCEDURE ORDERING PROVIDER [facility]- [id number] 02/26/2020 05:[address] Chest W Vj [...] the evaluation of this patient. Final Dictated: Kim kennedy MD, Yas Brink 02/26/20 05:03Signed: Yas Hines MD 02/26/20 05:09 Transcribed by: [facility] Name Value Range Interpretation Code Description Data Mariana rce(s) Supporting Document(s ) ID Date Data Source [id number] 02/26/2020 02:55:00 AM EDT [facility] Added by Discern Rule GLB_ADD_GFR_CMP Name Value Range Interpretation Code Description Data Mariana rce(s) Supporting Document(s ) eGFR-AA >90 >=60 NO [facility] mL/min/[address] The MDRD 4-Variable IDMS traceable Equat ion for non- individuals is used to calculate the estimated glomerul ar filtration rate (GFR). To estimate the GFR for Americans, multiply the [facility] GFR result by 1.16. The MDRD [...] 60-89 Mild decrease*G3a 45-59 Mild to moderate enddqzrpM5f 30-44 Moderate to severe decreaseG4 15-29 Severe decreaseG5 14 or less Kidney failure eGFR-SUDHIR >90 mL/min/1.73m2 >=60 NO [facility] The MDRD 4-Variable IDMS traceable Equat [...] 60-89 Mild decrease*G3a 45-59 Mild to moderate jbxzzhteC6h 30-44 Moderate to severe decreaseG4 15-29 Severe decreaseG5 14 or less Kidney failure ID Date Data Source [id number] 02/26/2020 03:23:00 AM EDT [facility] Name Value Range Interpretation Code Description Data Mariana rce(s) Supporting Document(s ) INR 1.3 ratio 0.9-1.2 [facility] Indications INRProphylaxis of venous thromo-embolism: Non-hip surgery..... ..........................1.5 - 2.5 Hip surgery................................. ..2.0 - 3.0Deep Vein Thrombosis or Pulmonary Embolism........2.0 - 3.0Prevention of s ystemic embolism in valvular heart disease, tissue prosthetic heart valvesor acute [place].......................................2.0 - 3.5Prevention of embolism in mechanical heartvalves or recurrent systemic embolism.............3.0 - 4.5 PT 14.6 second(s) 10.2-12.9 [facility] ID Date Data Source [id number] 02/26/2020 03:03:00 AM EDT [facility] Name Value Range Interpretation Description Data Sup porting Code Source(s) Document(s ) Glucose Lvl 126 65-99 HI [facility] mg/dL [facility] BUN 2.6 6.0-20.0 LO [facility] mg/dL [facility] Creatinine 0.63 0.40-1.0 NO [facility] mg/dL 0 [facility] BUN/Creat 4.1 7.0-29.0 LO [facility] Ratio ratio [facility] Sodium Lvl 139 136-145 NO [facility] mmol/L [facility] Potassium Lvl 3.3 3.5-5.1 LO [facility] mmol/L [facility] Chloride 109 98-107 [place] [facility] mmol/L [facility] CO2 19 23-29 [place] [facility] mmol/L [facility] [facility] AGAP 11 5-15 NO [facility] Calcium Lvl 9.4 8.6-10.0 NO [place] mg/dL [facility] Total Protein 6.9 6.0-8.3 NO [place] gm/dL [facility] Albumin Lvl 3.6 3.5-5.0 NO [place] gm/dL [facility] Glob 3.3 2.0-4.5 NO [place] gm/dL [facility] A/G Ratio 1.1 1.0-2.2 NO [place] ratio [facility] Bili Total 0.9 0.3-1.2 NO [place] mg/dL [facility] Alk Phos 115 IU/L 38-126 NO [facility] AST 24 IU/L 15-41 NO [facility] ALT 15 IU/L 7-40 NO [facility] ID Date Data Source [id number] 02/26/2020 02:57:00 AM EDT [facility] Name Value Range Interpretation Description Data Sup porting Code Source(s) Document(s ) Neut Auto 67.1 % 50.0-80.0 NO [facility] Lymph Auto 20.2 % 14.0-44.0 NO [facility] Preble Auto 9.3 % 0.0-12.0 NO [facility] Eos Auto 2.3 % 0.0-7.0 NO [facility] Baso Auto 1.1 % 0.0-3.0 NO [facility] Neut 4.7 2.0-8.4 NO [place] Absolute x10(3)/[facility] Lymph 1.4 0.6-4.8 NO [place] Absolute x10(3)/[facility] Preble 0.7 0.0-1.1 NO [place] Absolute x10(3)/[facility] Eos Absolute 0.2 0.0-0.5 NO [place] x10(3)/[facility] Baso 0.1 0.0-0.3 NO [place] Absolute x10(3)/[facility] ID Date Data Source [id number] 02/26/2020 02:57:00 AM EDT [facility] Name Value Range Interpretation Description Data Sup porting Code Source(s) Document(s ) WBC 7.1 4.0-10.5 NO [place] x10(3)/[facility] RBC 4.99 3.80-5.20 NO [place] x10(6)/[facility] Hgb 11.8 11.4-15.1 NO [place] gm/dL [facility] Hct 37.0 % 36.0-46.0 NO [facility] MCV 74 fL 80-98 LO [facility] MCH 23.7 pg 26.0-34.0 LO [facility] MCHC 31.9 32.0-36.0 LO [facility] gm/dL [facility] RDW 19.2 % 11.0-15.0 HI [facility] Platelet 291 150-400 NO [place] x10(3)/mc [facility] MPV 7.9 fL 8.5-13.0 LO [facility] ID Date Data Source [id number] 02/26/2020 02:44:00 AM EDT [facility] Patient Name: JHONATAN OROZCO ANEMRN: [id number] General DiagnosticACCESSION EXAM DATE/TIME PROCEDURE ORDERING PROVIDER [id number] 02/26/2020 02:25 EDT XR Chest Portable Vj [...] the evaluation of this patient. Final Dictated: Kim kennedy MD, Yas Brink 02/26/20 02:41Signed: Yas Hines MD 02/26/20 02:44 Transcribed by: NAC Name Value Range Interpretation Code Description Data Mariana rce(s) Supporting Document(s ) ID Date Data Source {[id number] 02/26/2020 05:27:00 AM EDT [id number] Patient: MARIELA ROME Age: 69 years [...] sputum collection in her throat. The pat ieaurea has been evaluated several times in the [...] on 02/22/2020 at 69 Years.Comments :02/22/2020 12:28 EDT - Zeina RN, Kylie-populated from documented surg ical caseEGD - SN (None) on 02/15/2020 at 69 Years.Comments:02/15/2020 14:56 EDT - Eric anguiano RN, Perfecto-populated from documented surgical caseEGD - SN (None) on 12/02/2018 at 68 Years.Comments:12/02/2018 18:54 ELIESER Isaacs RN, Kiersten beal from documented surgical casethyroid nodule removed.. Family [...] 67.1 % Lymph Au to 20.2 % Preble Auto 9.3 % Eos Auto 2.3 % Baso Auto 1.1 % Neut Absolute 4.7 x10 (3)/mcL Lymph Absolute 1.4 x10(3)/mcL [place] Absolute 0.7 x10(3)/mcL Eos Absolute 0. 2 [...] 02:41Signed: Yas Hines MD 02/26/20 02:44Transcribed by: NACREPORTThijohn document has an image Result type: XR Chest PortableResult date: February 26, 2020 2:25 EDTResult status: Auth (Verified)Result title: XR Chest PortablePerformed by: Yas Hines MD on February 26, 2020 2:41 EDTVer ified by: Yas Hines MD on February 26, 2020 2:44 EDTEncounter info: [id number], [facility], E mergegay Room, 02/26/2020 - . Radiology results: Interpretation: [...] 05:09Signed: Yas Hines MD 02/26/20 05:14Transcribed by: NACREPOR TThis document has an image Result type: CT Soft Tissue Neck WResult date: February 25 020 5:01 EDTResult status: Auth (Verified)Result title: CT Soft Tissue N freddie WPerformed by: Yas Hines MD on February 26, 2020 5:09 EDTVerified by: Yas Hines MD on February 26, 2020 5:14 EDTEncounter info: [id number], [facility], Emergency Room, 02/03 - . Radiology results: [...] 05:03Signed: Yas Hines MD 02/26/20 05:09Transcribed by: NACREPORTThijohn document has an image Result type: CT Chest WResult date: February 26, 2020 5:01 EDTResult status: Auth (Verified)Result title: CT Chest WPerformed by: Yas Hines MD on February 26, 2020 5:03 EDTVerifie d by: Yas Hines MD on February 26, 2020 5:09 EDTEncounter info: [id number], [facility], E [facility] Room, 02/26/2020 - . Notes: FULL PPE WAS WORN DURING EACH ENCOUNTER WITH THE PATIENT . Reexamination/ Reevaluation Time: 02/26/2020 05:21:00 . Vital signs per reji 's notes Course: improving. Pain status: decreased. Assessment: [...] answered.. Impression and Plan Diagnosis Dysphagia - ORB33-AD R13. 10, Discharge Plan Condition: Improved, Stable. [...] ibing for and in the presence of,, Vj LAFLEUR, Mariia Campbell02/26/2020 02:22:04 Comm ent by: Odalys Daily reg was done verbaly w/ shannon lan consent to all in cluding telehealth, Ins pcp and pharmacuy verified.no to pt portal Odalys Daily [id number] [facility] [address], [place] [id number] edicaid JAIT BURT [id number] sign ed by Pablo Montaño 02/26/2020 05:27 EDT Mariia Zabala MD Name Value Range Interpretation Code Description Data Mariana rce(s) Supporting Document(s ) ID Date Data Source [id number] 02/24/2020 02:26:00 PM EDT [facility] Name Value Range Interpretation Code Description Data Supporting Source(s) Document(s ) Discharge [facility] ECQFVt6lKo [facility] ip9FSEEIrW [facility]9i[facility] c2YC3XxUP0 [facility] [id number] 5cGUv Medical Oy2uzD7WSG NlRm9 [place] arP4POXu1E XRpY2 FbPJ1ok8Qf bmcvV 5jkHF9unYR uY29k fY7fPx8YWS 5kb2J qCjIgMCBvY moKPD wvRmlsdGVy L0ZsY DKeBOTqh5H lL0xl fys7tTEnVL 4+c3R yZWFtCnicK +QCAA QuIEuYQG9k c3RyZ WFtCmVuZG9 iagoz OXKze3KyKx w8L0Z woMWfod6Ye GF0ZU LoL36yOZ9Z ZW5nd GggNzA+PnN 0cmVh kXs5bKDP2I rk0o/ INFQwNFAIS eNyCu EyVDAAQkMF I1MLP XNTBQtDPQs jhZBc Wu5OqIOHPU OF/DQ MR51CVF4JF K5ALg U5lQ9VPyNw ZHN0c mVhbQplbmR vYmoK TDUpQH9vir o8PC9 KgHj6TNEsP mxhdG VEZWNvZGUv TGVuZ 6XcLELpLf2 zdHJl PC1FbDds1G IAAO4 AfAplbmRzd HJlYW 4CTF7gm0Rr CjUgM CBvYmoKPDw vRmls mBToY4CpKX RlRGV xk5EmM2mkx md0aC A3MD4+c3Ry ZWFtC nicUwjkKuT Sj8g0 BvY6EGhM79 IK4TJ UMABCQwUjU ws9c1 NUV4O4MtRH kFwuj BXE4VFBL1H 8NAVj zZAsLtcQrk AuALT JGfPMEQ3ca 3RyZW GxAgSfLB0z ago2I DIxq1WuEgb 8L0Zp oCQgbw9YsX F0ZUR hV23yUI1MW W5ndG ggMTA+PnN0 cmVhb Qf4wSkjDiJ A7gB8 JbXlVZE3xw VhbQp lbmRvYmoKN yAwIG 4vrga1GM9J aWx0Z XIvRmxhdGV EZWNv ZGUvTGVuZ3 RoIDY 9Wg4qaFZvT W0KeJ eVOXFk5VLL yDRQM DRQCEnjcgr hMlQw AEJDBSNTCz 1zUwU BVc7AT7GYG C6NgM S7XUC3fduP sWZIF pdrCFcgFwC 0Rg3Q YyXqJFE6qc VhbQp lbmRvYmoKO CAwIG 7tcck8LR5R YWdlT N0cJV2Lt6K Ob25l S12xgXWgAV kgMCB DV6F0sBLjG 2F0YW kyZt5WkARd aW5lc yAxMCAwIFI vUGFn ZXMgMTEgMC BSL1Z pZXdlclByZ WZlcm LhG9HhAWIw IDAgU j4+CmVuZG9 iagox CUPzDC1von o8PC9 LaWRzWzEzI DAgUl 1vUZmeNT6N YWdlc m8Zm0JaxFH zL0lU RWFiKo4qWi cpPj4 RAH6rq5UlQ jEwID Qqd3RvQfr5 L0Nvd J15MFLiCjr yc3Qg MTQgMCBSL0 xhc3Q gMTQgMCBSP j4KZW 9kd7TjCeW9 IDAgb 2JqClsvSUN DQmFz ZWQgMTYgMC BSXQp lbmRvYmoKM TYgMC BvYmoKPDwv Rmlsd TPdG1IwWQO lRGVj g5LhR6vfsp d0aCA fJBc8U76kM z4+c3 RyZWFtCnic nZZ3V FPZFofPvTe 9UJIQ edHHx7pSSr gNvUi RLioxCRBKw JAAIj ZEVHBEUZGm CDIo4 CXvM3KhFar FAVGx 6wQZRNRxcB Qblkl krRnfvHnvz ZvfH/ d+a5+9z91n 733Wu gCQ/IMFwkx YCYAM jDqV2mbFvS 2LZ2A HAQzwAANsA OBws7 NCFvhGApkC fNiMb JkT+Be9ug4 g+fsq 0z+MwQD/n5 S5WSI xAFCYjOfy+ NlcGR lWJH6NbKE8 T8mYt jRNzjBKziJ ZgjJW x3ErNYp90f llDzn hQgS3Zecor uJl8O TcJ+ONORK+ jJFgG FojTBo4Hy4 mY4N0 SYZAxm/ksR l8TjY AKJLcLuZzU 2RsLW OSKDKCLeN5 AOBIy V/b4z3RrF5 Tyw/F zsxaLhIkp4 gZJlx Wmo6AD7not 89N54 uIfKROX06g 4jHYm RlZHOFyAGb P/FkU cG2AtwW01F g5ODB tLW2+KNR/X fybkv k4hp8Wi+4Z RB/4w /ZXfpkNALC mZbXZ +odtaRUAXe sBULv 1j89nHqBWg r51Dn 0zQms5WjOI 4ixnK 9hc1RxXLT9 rKS/o 7/ljDm9DC1 zPUr7 d7+VhePOTO JJ0MU RrV69vksVQ xMjO4 bZ0QTwft/g fB/51 HhYR/CS+iC +URUT GjpesPDe8X 8gTiA WZQoZA+J+a +A/D/ dAEjCbI2bs R0JZY AqUhGkB+Hg AoKhE mXPooW3Swh QvGRw X4cQaTdEpr +8+C/ n1XuEz+yBY kf45j C7XwtACVof ya/Fo CNCAARUAD6 kAb6A JJiCV6vLW4 AA/gA wJBKIgEcWA x4IIU kAFEIBcUgL WgGJS IcDAlfAT3w BE0gz ZwGHSBY+A0 OAcug ctgBNwBUjA OnoAp 8ArMQBCEhc gQFVK HdCBDyByyh ViQG+ QDBUMRUByU CCVDQ kgCFUDroFK oHKqG 6fWm1UqmHW QaugA VL2feJKfT+ hV6By MwCabBWrAR bAWzY H12RO6DF6D J8DI4 Od4Lv6XGoM N8EO6 SG0PK3OEMG j+Bpx NSJUD1kvcj ERbCR kKReCQJESG rkBKk YveB7eKvrO +5iki Fo7sfHJHUR TFQTJ KMxy5VzsVj lqFWo TajqlEHUJ2 oPtRV 1ChqCvURTU Zros3 SjszOgBh7A Z2LLk ZXoJvQHeiz 6BH0O IeWIvUjE4w xjhh/ TBwmFbMCsx mzG9O OOYUZxoxhp rFYrD rWHOuKDcVy sGJsM gPQsxL8Lhb FO459 ehWqzWJ6XU 9cPE6 JO9OP8PiqH 3BXcB J7JepV5dCf jA/F8 /VV3UM9Rds Pfgg/ gd0eSEZSFl 6ESEI cTY1xjuVAB Eu4S3 kHJJU8fD9P cKKAu IZYSTxEPE8 cJb4l UUhmJDYpgS QhbSH gH50d9YB7I JPJRm BZeroOAP7H biafI r4sj5XiHle qBCjw CBGa6Gr6Cu xReKa KOlJY9QAaf JivWK O6BSFI7gjE XslIi b0YHIbgBFQ 0VOmG 0rQyVdlGOV Q5Q3m zcovyBeVHF CzFiO MK3CDCAErs ZyhjV GDqJ6CXdhX 11Ebq Pfh3KHXfpp XQUmm spW0ad3IcL YqKnU b6Bs9Izqvf FSkdo RvRA+jp9DL 6Yfp1 +jtVLVVPVb 7qJtU 45Ccqh7Yez Hmo8d YX4ZuOPmXr qTPUf nNU2Trrq2e f00Bp mGmEa+Rq7N E4q/F 4Zo5Eafwrx JI5h+ ig6xD3eOGu NFdo7 jYi2MkQ9il y08rS qtI6o/VUm6 7toZ2 weNS1dIndS lXHTU gvk8TueT1o hgrDk 6TFtOG7AaO 0NXX9 nFQ29qfHqk N6xnp AvlD35Gm97 An6LP 0k/Z12phwM BjoGI JGKPs7Cif0 xhizD AMPweb6Zu0 2MjWK WQmo7BT7zH jMOMM 43bjW+a0I2 cTdZZ qSxyw6OT3i yTTPd bXrZDDazN0 sxqzE bMofNHcwF5 rvNhy 7KCl4CBymR ixtME tOTmcNsZY5 a0i2D LQstuyyfWR lYxVt ts+q3+mhtb 51u3W u5t0RwW1yF aNNj8 5mfjI9Gced 22lzy XN+5q+d2z3 1uZ27 Ts0wmb7Gyd h9iv8 G+1/6Dg6OD yKHNY dLRwDHRsdb xBovG RfMnXg93Kw t5Oa1 5Xxi47cpCT ex82P bGB0YEtldB y6N5x dE06pcetoq quXJc 796mqhc1YP e9blJ 0SZvDk6E2Q w99D5 1Rb7rTt9wn qudBz 2yj1t3xfp7 v12xn 9kr2KW/E28 +7xHv Qh+DI6JIee 99Xzz uDj0G4wd/e b4XfK X+0f5D/Nv8 bAVoB 7LQriPwLv3 CVgX1 BpKAFQdVBD 4LNgk XBPSFwSGDI 9pC78 w3nC+d3hYL QgNDt offCjMOWhX 0fjgk WD86RtzwfN 1EQ0b +AumDJgpYF ryK9I rto30TKGSa ieqMV ckIyv9Jwn2 jHlMd QQ25qP1Dkw tOIE8 O1z0Fet+Ob 4qcX+ qhpqZA6qP4 hOOH6 IuNFeYsuLN ZYnL7 4+BLFJZwlR xLRiT GJLYnvOaGc Bs700 oCltUunuGz uLu4T ngdvB2+S78 ov508 zsGjNEf3Bt k3enj oO0k0YznIP wBZUC 56n+qfWpb5 OC03b n/WgFEi0MQ OXkZh rMSdTuml5C rUz8z CRi1mfrfAt y5yX7 Ju1EDoQIJQ D2Yuy u8U02c/UgM REsl4 bwoCPH9ReE jc690 mmhz6yj4Q8 2fJNy yfyffO/XoF awV3R P3FgoBJwnD Xnyvp V3Eydp6eV4 68uWj 2+xm/NgbWE tWlrf gj8AnpkhHg uZl1P jLzXwkLz6K 7rW4s EmaZVAvx7p KjbiN ln2Ex1by3u qk0fS 1imN1ukRsq K32/m qb84pb6KxC 992pK 0ZbDMoWzPV sxW4d ha15f8WTaR Ls8vH 1ezvd3nY8U HyY6X M6xazSPeR7 G3i7B LsktaGVzZX WVQtb QliVEB7YsF V017r IsqawmRc2j 7r+zx 0ZPRd8QYBn dur2D vzXq/+s4Go 4aKfZ t2UdfsVvV1 9n/N+ hf6VyRmsXf DfuF+ 3RUJG21Yhh 3NLZo kJr5lb9Q15 mDCwc vfeH/T3cZs q2+nt 7eiMfetnp8 /m/jt 2rOTm9oFrV 60fWf 0UL9YpnFtZ +pc3j pYofEh2R2z Hj4ae OB6j8Vn54l L7/cf 2l9Oo6kwtS kJwom tX44J6w+cP pV16u si5UVsdDt1 75yJP LTvU2vy4Iz Q2fPn fM+g2dvvD6 ne9fy bU61Kfv1mL ey65H Cpc8B+oOMH +x86B j2YJ2ucl2a vO13u FZ36hXYB+5 XTV72 duiwRbW9Td PyR4e tR12/eSLgh vcm7+ ehW+q3nt3N uz9xZ cxd9t+Se0r 2K+5r 3G340/bFd6 iA9Pu s6SbSqpDE4 Y9yxJ z9l//R+vOg h+WHF wX5E7aGoM0 cmfSc uP076yPmJ0 pOZp8 U/K/9c+8zk 2Xe/e IqzVZS0Ii4 c9PzT r5tfqL/Y/9 LuZe9 68YM0XknuB l6XvF F/c+At623/ u5h3E bE306XmCs+ Yfuj5 LUCt6wxGQ3 9+A/e E8/vKAC2jr 3RyZW XkFyXaCZ0i agoxN wSfRT9crdh 8PC9D w6vawjEtND NlL0R ldmljZUdyY XkvSG DdU7x0TPT4 L1N1Y xK9iCWeTE6 hZ2Uv RmlsdGVyL0 ZsYXR jMJPcg8ZnT 1R5cG KhWJ6cmpQz dC9Xa IO7fLNbVWW vQml0 c9AngqAheV BvbmV ntNV6X2lxw md0aC AyOD4+c3Ry ZWFtC ckq1vGmEWF AAMKg /qlnDB+gAA AAAAA mJedctw8JB W5kc3 RyZWFtCmVu ZG9ia goxOCAwIG9 iago8 XY8Tg4pssr NwYWN xKg1IF9PFC XNlZC AxNiAwIFJd L0hla WdodCAyOS9 TdWJ0 vCSoS3ayYK dlL0Z eiCQtxo4Fb GF0ZU EdL46tXY8N eXBlL 0gOGmzjM7H vRGVj p2FpXEBplO M8PC9 Zk9n2jJ9dQ DE4Mi 2Qq2bwjbFo My9Qc rUypMZ1s4E gMTUv Qzd3v3Wspf NvbXB tinRjhRN4V j4vV2 lkdGggMTgy L1NNY MKiRJK4PPF gUi9C aXRzUGVyQ2 9tcG9 lMR40QNnvE W50ZX Ich1mflAGm dHJ1Z V1FGR2veAm gNDA0 NT4+c3RyZW FtCnj w4KbAQUNG5 sdv4i JaOhC5Ridb mrVlc 8EljhPjxEh CjIor lpD9EpQ9UI 0CGgI eaWUGeIM9a qqAgD pG9IdBYnOU wyYBZ VERUFFBQEC URWCq xnWu9XPE6U 9+x3f j7cZbgm9Y7 frVvf 810rt8e4vO RQ/K+ iyvfPj0ACY 1WMXk xJXyh6+uf9 dv18W qJ6GjZ8BzJ 9x7+K jn/2iI9efX 9E2DP Denice++wHfC4 xC9M3 PTVpmVdPz7 O+RpE OwlTFuVg3h IjaRK I/A34QHStP 2HEs/ aG4sGuZLRK 44yQo TJDHM4EKyK 7OLLi 9/tdIUKeCJ hMU6S CUtTHqs8mq x6sPh sOkozDNec6 2gDWW 8TNN/eBDB1 B02eo Qg8h+4xHJL a1lC3 SZsU14yAdb 09jCv Cxb8xG1tti 5mppX tdryLKgzQZ 8PJO7 dXq6NpxD3c xpedf /qm1q/2COE qVQw9 ZACT0Cif+r 2XeQE UKeAngDmeQ GROea W1GvxiQxYz EImn8 Mueller+GmLQyxM JoMSO SA+/81GRPy XmVMc 3IFKv0hRzN hca10 cius5WmItg 6+zl4 9mm9QUNqWF Q+RC7 nVZP03+mg+ zPcYc kZUHooHABC Vqam6 F1AZk/wwgM GA6zd X/9zcFiKFm 7EWEd rIQtDnoZAT mDXO/ 9sYAmOUBKv T2jvb A5XDcwwaAA CALkS /2VIh0i7r3 11aQj ozw5HHg02g G+dDg 2PukDtNsye 5g0BG goJNRWPHX5 8PMKd zp82hukZd6 5YsRo frnDvMIzbV CmCUA Zfrr7/2yXV Ggx5O KyAqLCJhGt uH/Ie tebkiRSMeM GSJ3a +tBgQxzPGH ByNoI zJJJ0IJL4p 9xPsx pCTCVst0+9 SUROf 1/hci/d0pH ZOX+G FBjISdxzEd mz9lC kUo1ICOe2S oE+si pcO5bc7Wdq NU+AU VwpJfdgrL/ snzsp nhSvasb8b5 n9FeL kG44lkt9nB EGFSZ onoT9GyPVv tHDPd VurF4nB4Td galk0 KcbbgvKLam WHxEj 2arU8A5g3G yB4da w/v3AF7GH1 bndIT Spi8uIYJbe PVi+7 zToMoDoRlh 1Ii7z mvzWfNL+BJ Rc8Us JFJRwjdg+9 9ptlI ghl/PuYkmX E5RYM Q2Uw4RuMZK orb5v vC/Rnc5i0k faxmb Ix2Jgxn7d2 WCS/Q pIDRIzw0tf vaPtP 6LXTLPUu0n gwmEw QI77I8c/rq DrWVt vfCHHwjTRi GYLSO uEFvRssRl3 OKaFp 6bRU0JOElb CBOcP l8TqBA7BNs j89Mc UdFijcTL9n HFCdi aq9OkJMZ+I vPis6 78JzoMmHa+ 2qeRL xdXyIBKYUP yVeZy pdTK+Plugt Va4/l CMgmZR5Htn p5jTi TeGInLzTjN 2PFZn SqZiPEXw97 PeiCT GZMv3wARAI Cj+OT hszfIgrPaV NynQc sEZGYFeKco Bc69V l2vQh4QiwV PgY5p W32uIpk3+m R8uE4 EPC8rjO61B 0Afae QTMHYvX6HI WUPHc DSTDBFdYwO jp6Ri 0aK/fAQUXI DrHZJ GUb2ZnHJv3 d5QkO sp0nmpj4mM /Re1w SANdHszxIK wI2vB rrxmRLvGLv jpmiM zbFgyqjPHL eBLXi Sa+oMpetid k4MWY nLQF4yJhS8 XnZ91 XKKEo7bPAN wPkDz MwLn9qjiUX x8k3b 2ERi1Dhmkw Fee6g KxdFvLO0oQ Ihu2q nvTjE4VD7W TjLOd /Xg1Dr6zDo b4utv GUh1VX+WOZ rcVjB 2LwLfwiAyc 5oPvD CHWJMetDvo OmGoh j+ukU2eSsD ZBclC LSgSUzP0Kd /FA1q nI++EAyiUx +Nl+M TlS/JzWQXZ nDhoJ xYwVlep25P aARnr odwHM3CVRJ RoQRm ggpK/9yqH9 RL/JS QxiX7dIXvq vtBvw 0PSHcg6JLR +Es+3 sTQ6zKgoUU HpKHp qRgRG/7lER BBObO GC+XkJckwj CyOfI k6O/hckTzz PeNrX 2gSn6iZMyf lpWpf lIgq/iabqO fRqhV 02biCIMMlf 74nBN 9kPYZ8stxB mKDGD jjRIpEBn8e NoEpD 8rmL3V2jCY V3ket RaaZUsR0zs H/sKq HexIiMJFfn eEwxO xTkdFYJ0ZT /uab3 7S5I3r9/+V JHBUQ qkm/EtX7SA mE7rg 0G0I02ZPVq SbxcD R/gqnx58Ak kP4fI AUD8v5zVS3 FEjVV ccX/or5V36 1AMQp GvbAaBG9xT 52Dat NgeZwvlRGS 7Qwp2 4/qCf+4U9l 1cdfA sHqwMRArLa 8QyXA ZMsKm9DCFJ +gzpf QRyM5ob++n e9Zlz W9cdPn78y9 iJlvG MM0xb91rHt B7fxD LK62wJ+3TR wJMlO v2iy6Z+6YP d4+BR +cUXoCWIBu PofUl 5kwfsAG1XI gQ+11 yz9V0yMlfV 3XL6F SJCZJZVSd8 6EVmH 91/2w5Sanw IZXMR asA7cibPRb UdEiB es5SyZ1b14 wSkNT JzaQMuzN8O qUwKR x1ieQ2HIVA Ryf7S Z7bcObENY3 8xOFE DoSLTZyG6u jDAuu KRT1jWHl9T tpPVS As3K/ZF4Xj XY+FLOREZ 1kuK/rW2Tb aRYB4 2s9XZbYA/Z HvJKE JKO5WoH0cT YJBci N6avZ3IDTu Hbi6S KvAj/s51n+ y7uOJ k8KGWLnkkS 4xqEi KPPJTRSdFE QKvnq M97mnc6tEY JiBaN E7bv+CzMJo 4Yuqj P7WbkzzYq2 WUReQ A9wxuriCaP 6MckJ eBQFRTN5ce u28L4 dymiwtppOR eFmmC ms2REjQjIP hlzsp p0ezSou7kT ak8S1 V2CKllncz4 /ivS1 dnulvMXIi0 tgkBZ HNtolYNiFT zyAPM vW7dvD+ERh PxqZG JzgOfNTyfc E41iN fgqZphtt/H MNfNy GBgk1CNGpV x+2to 63YFJTfNdo TjqQJ WpoMYbbet4 HYjb8 QCkjzj5ruy 8jag9 FIeCJvt/5g jJzDn GHsjRWuNsd tgHlf AJGNKMPXxU Y4l3V zDLx8ZM3TI TekCD GxXP4sS5Mm V7wwI yywKHRxl8z LEJkF pXXyd/rarb sTlwv g/aFhBZ9nr WvqzZ y/q6Z5zfg4 vMiJm CPaCNP93iJ jvrx1 EWUKXvqqtL Kqey/ lRWxEXkSL4 xte1D Tyd2jKnTUg uGK1O 5kXyix1yih PRWSH C4eVePTBXl ETqyi 1hsR2phWyD p/Ywl vIPnS0Un2j o8FyV vBU9cxIdMg PnohN zh72rWWY9Q 1ygqg WqUjtfNYxY uPknH Uf04DDiZ9m JFAcR ThV0CRHvhZ I9Jft Ad2gfIxL5A k5Jfe 67OXY3DG2d he0WN jjmUT1e2hU MoIub 2Br7JzyJfW wBZvA qWDYQO0d5/ Xb92E jDEPQRRA5W PO3hY i+Y5FSy0aL 1zOc+ uvwtjskviQ i3zue i9GMvbmX7G rW5jo evzhiYyNzU alNjc 7BATIH73ic wEwu4 vUjs3EK4wP S8RyR /jzxWuUDnN EgsTy PJk8/i2/W3 rorZc odZ6VyIi3T 8o0qH CN3QuYB9Ir ol9Ii Wuuk7/Tiug iiUoW MrQzgRF6xi 0QcFN VYeSWSVQow FJUcC U1DSOxTyHj JoQcU aEjBLDYLlP VGjrB YjEjpsEnv9 0eT5F 3UEaXAsX3Y JDlV7 bcoWh50O41 ySKst aejwTvF4EF GG7JD bJ0ZSYZd6T nG1xt 5jUCnhgyWe WNZos e81G5hs1Er 7I+ds CZY+ZFUaXq XC/AE ZEt6gq6Ad0 9IRcQ vIEyNCCxxO i6itP cGIYqE9fdX JwOu8 z6xm3VKNrc 56p7Z epl07n/XLP U32md EFJlB3Xa0N VNH2G EKkU+Lez36 MwA6G IGX1/G0xV2 Q1pqz 3ugddFk/Gl bIamY jo8b+xiJbf Y0dnl EY8vtLpkVp ItBpu QinKJcjL3z 94gp4 UWTOp7pXsf PDHLf yxnw5/h5Ok 7D1zv afKruPx3oW 9QB5U rcktrcTpzD xvUCK f+60gHsl9N W/R/c pLAxWytIlo A6Ibm dhlrO2vIBJ TfyxT OR0cR5UnMc L8YeL dV3HniGCc9 OqqBi sl/4bET1/t jcb5N 1pYqtTfeKk Dt0Ar xd6c4qqF1I cfP2k Q4ZZy1WjbC m7xnl MvCrSgLLQi 47JL8 EemWhxBmCS p8Ino 5WMvvWMb83 Df2sV hv9Gh64LjO agy9d XkMgaJ3CZB wqUsA FXzpn1EcZM rVHGd cjITPsYpPT 2ofy1 5a2TWA4vn9 jAQG6 wTgMiAGZQr 5Q+k2 5NIwcqRyLR iXSiv rCuravCPK1 Jc4Y1 EuCt1DzcEi BaMNt 2CecErvPBp e69kO YKMqUjDNyp TvnOI oQ1mgP4cMi fQT+W AOvlkXAleu qFF8D JTTLp34CB8 ppA2W DCoDPErLx0 0sdBZ axPWd/FubS Mc9cl qws0NKDytL Z1Kbs aZZ97xEpt/ u9zC6 e1j2EvOC/f Euy2o JkH4HYmEF7 Jg/NW C3pqXSGYm6 pB4eA WRYkk1tuxX eCOK4 VJdkL85C3j zA+ab gfcHaTP0AX /TKRQ Fx/2L/dwBU jHL6v OH469olFLW 3Hl4i FWBKRAI70Y Qq1G8 8WaAD1Htj8 /2Pa2 tDSlWJ/xxl xpddZ X/zmMXFYyP A1ihn 4XXtf3A6vz E7iVx QdD7bX5u29 RvMA0 +D5lllk005 HgysC yga6/3t2Sl NTS3y BmKmj8SzUa gPNlo b0hHR+9U0Y N/BwP +i5QJeTA5+ IRVUy /im1jb4ZoL 7oLHq 63DA4eWFhP pMIfe 3Ox0psmBRC eMPpE WY4ixUw8jb GTxjr iCcxMtLmig bqNAx semVqfARCf 46Kjx /vWMFgt3Ba KuwkQ PMOU3iS3j9 uoUBb 5mI/MQmOAG c+mtT e4CaV2Aw3w fqM6a auRjdjRNe1 0g/P0 tzMJbn7T5P T2770 T/WUp9MIht F97fZ H1+DyWzr80 vtKxt D4JfGsM1MI qbW3Z Tmg131mIUu Qp13C RDzA5OuUtf upfx7 N8/pEKeE9u GWHn8 eHz/Jm1pVf 17i3l o/L9h9zJsc Fh9r9 nUOvln1/5X 76Nmb wBKFI3cfAp v0l1C WMgGZTdYwF t3MPa +yLGvsUzc5 ZzRd+ 8B9+zvHdMs Gb3Rn EPb5Eo6mC+ oWX0N fiZnrD+UVN f4dFT uhHryjwlLv eF9K4 Mfv6n6VISJ Sz8i1 751TS7SQCz Y6Y+/ zNWiIlfvEd EraWt qW2A+by89J TVPlr gjkTnrXB13 QJeK/ 6yJJg2eBTZ gSxIx Sop5ywMt5W 8/9cQ fD/zyNRj6w K4MYJ lAFoYq5ifv aRX2z vchjY2c3wd 7wqru 9OIG54Dedh v3HpV PKfR7cwk8L k0KaL jbnS350tn1 FpFXd dyoeghKVJy V6LGO nchsa3/6Fp G3h+R R3/aZ2hJKa MaKge B5lypIKqfT 3wSZr NA/7dzEee8 kvEXk 9CCJG96GkI XAdQg Scp7mMBrZq mRLTv Kb0v+3iLwu mfKgO frdBZcoe2g frJ7/ T6teRl1KDM 5kc3R yZWFtCmVuZ G9iag exKHEaJL6y ago8P F6Ttn55vJr 8L1Mv VHJhbnNwYX JlbmN 6D3hunKY7Q S9LIG LgtJSaG3RA IDE1I DAgUj4+L0N vbnRl bnRzWzYgMC BSIDI aPGJaOpW4W DAgUl 0yIFtaAN4N YWdlL 8Okq946woS lczw8 O7UrgD8dS1 BhY2U 1XU2EKODll Wx0Uk iENTT5ECCy Uj4+L 5Apz3XRMPW gWy9Q RLFeX4StqQ QgL0l tYWdlQiAvS W1hZ2 TMNS6MhBIg ZUldL 4uOWamiH9Y 8PC90 JxB7GDU1IO AyMSA cFRGlmS5kL DEyND cgMTggMCBS Pj4vR x3guTb6K0k lQm8g MjIgMCBSL0 hlbHY gMjMgMCBSL 1hpMC CmWWGiPo5A ZU9iI ZG0ZACuAb5 UaVJv VTS5XQOgOh 4+Pj4 bIBXfIG43D DEzID QiIt4RKHGv YUJve FswIDAgNjE yIDc5 Ml0+Pgplbm RvYmo KMTMgMCBvY moKPD bmQ9clf5uy OSAwI FIgMjYgMCB SIDI3 PRQkKg7wXA lwZS9 VAJyyzs1Yc 3VudC QtU1ZwibAe dCAxM SAwIFI+Pgp lbmRv YmoKMjEgMC BvYmo RQFtnR7Jod XA8PC 0ZT6PuWT7v cGFyZ H0ssG7RI6d vSUND QmFzZWQgMT YgMCB SXT4+L1N1Y nR5cG BsBw0ozU6R aWx0Z XIvRmxhdGV EZWNv KKHwCUY2ew l4WzE gMCAwIDEgM CAwXS 9QcZDgD1nD YmplY 0UoQm9seQS 5cGUg EJ1YQZWhiK JjZXM 4DM4Pmb6rF 2V0Wy 3LFRRyKVC8 dC9Jb WFnZUMvSW1 hZ2VC I4qsNKhxBC 0vWE9 xiwYplQz5M 2ltMT LhWgB5GWD2 IDAgU j4+Wo7hQiT veFsw IDAgMTgyID I5XS9 MPP7cbTlyO jA+Pn A9xeDyhUm0 nNPPz BX3YTTbPRz wyQcA FBgDDAplbm RzdHJ hNZ8MKT4az 2JqCj JpKIWgz6Hl Cjw8L 2RcbLOlmv2 GbGF0 BPCkH66hOU 9MZW5 ndGggMzIxN z4+c3 RyZWFtCnic xVtbb 2a5FY1xXcW gDzsG YvoKCs0S3L l1XMS x38iqmghMT pboGT EnzRSN7hr/ fQ8pi aSuHkkBmiC xbuQ5 GPxpLAUM0a 3BjqY g+Ix9npVoh mJrlm gdguk4ku+/ yLbYw JrhKstE+fs v9HP2 ORY3HMa2gb ga1hH K6LSebmSxB fF/x6 2y4MZjJuk3 3bzwc Xc6t6HnPeU Cymb/ p0S8076vm/ 6tbP7 3f4FnAc91k Oiuap s/aF3OL9j0 NbefG L4Nmwh8RUv jE31X MGqQsVXsMB JXvp/ pyYkqlOy2p yyG1m WheaQcwzYQ xr0ES b1j4KdT8Y2 zxUYL O272K7Vv47 OS7cg qyn6qNIV4E lTd3p B7N2fy8i8e 6NPqa nf90tbJM9s hTw8P e8x5r4w7FU 1e3l1 9XvXyYermX Nn8dg ezIWH4M2M0 NIDs6 Ae3wElKV6J LSHXz GHl+P1km5T lUlw/ XQ/1vq81fE 9XEEg O4OqAW4NpX 1ovQX OFZTiWvtzN FA2V5 YLeDurJcfb pFPJ4 pJlok+Xb3t SBHDm kIKsOmMMvP /6yus UGlqH74wk7 ox1kc qIe2zJK4jG vm7uH zUCiyaIidR Wt9o/ +1WptuG/x6 Obw8B 77Nivq2js7 T9cDS PXssvR8A8p I7Fxr SUL/tQG6aS WR5t7 52yVQ0erwE kuI4q qVNpPBEDgk N4wZa ZCKofMtJym /vlv3 UIfXCGucwY Nkmdi 9xvF4mY75v 8EiXB 41OLr5OzV6 5GbnY gKuNm8ECbO Momxe tYijC0h3Xb Yarm9 LyF2VXV8t9 1Y9qg LDboGuphqU xwptd cESwkLa6uo js4Sd r6eSvNc1/h AF8EI z3maBzUKqK xi8sr BCG4xbJTa0 ncfX2 dRf6O/4pn/ cAkID 4ksjzOCAcM JR5kj 9WFNJ9jA/m A9YZK Ei6tFhu2a7 nioUW DswIp1avZ8 I+z5E PjRO+EgApY lEZAY 6EqyOOufN9 qjZVC UfihwcqRh7 mDxHx UlJThN/F2k fiRRk O3w9l0Q+92 NsSWc NMzfTce7eu e/zqC 8NB15bEsOo o9rkO VqoOmqMJjm Bj17V YpBDWh1A53 4wAFO y8vj1UCSfb IbmH5 3JoNUDDpmr YDoKn 36XKS3E4Y0 N/5x2 5MXBluT7tb wOBvL C8kLJ44um7 Rfh1x m2RXYFUHeb 0VXNd Za+AgVGD1b Omukp U3RU/ourr4 v9I2c HUr8o/lBhM wOL/n e1ftbqlE5z uuDrH jorZDJgNfV XWlME TiDT9f7YTs iFR6a 7jOjbnOZIf VqyxM RXbvXyaBlY tGAjp CLHJ+e1Mjm Wx7ev KdWO0lowZ9 0KelF SNaIH7Uk9i TeO0r j3TFWADFE7 DGeIV 90rLQzurp6 PZTzQ XXiPXwVNh+ c3v96 kOGb5gf+6H 4AL6C RTHeWUtqdm zKK9p hQdw+o+7m5 WAklA CCJfSk3mO5 L27/p tyWH8IWvno OjWvI 5CT1elB+vd PsFjI untt845x+k oIv6/ lGwLOXy8CS HwJB3 InrNOEsmEO jcfV0 28PT/c8C36 md6fV LWg+9VUUh9 tkz8q 6G80tp0/XD GZ8OF vmgbI63aZ8 fCdya nc7jPCj+HL Gy6A6 mcEFOXieyk 7lvW3 Kbl66VN0y8 wLL+u 3941ZRttZ4 mzCQV cBIAUdrYvP yEq0+ 32oH9EE289 Rtzgt BH67L2mwP3 HqMeR GnV/YNc7Uv 0Umud bnFU56Jgxr funi3 Sv5XlfXpKB AUL7f ASS039/dHA iZIKP mCfF/Re2ZS eGsJS 5e4ZnWhjd+ o5Mqk Dlik39QKo3 OX+NT 0adIGILLEu qGKf0 eL0hX1eKih F8N1A mV64gNweSf eGRap Z481g7p2k5 Rw8YT 1Kbi7aio1D DPhXX LlR+953zfw Ct3wc vjJmjtJ8Ji HLsJp 3hWsfrrI9g DbJXn YNvkvcUi98 uR0Us Y7J0FfW21p wOOTi Od/4N8D5ql Ef7Ix hBugVPdLM+ +8NP4 1K+1x8ZTzp nMcUI fsctQE7Nbr CjMhN 9/LRcneKds j2cv9 aI7mixWRpK b8eQA 5Kv2O3UUPc qJIpz vwxMUQw3AD W2NyL /geSlNLrGc J55V0 Lj8jBhCotb KJWG6 l69pmCkDPK lRG4G UPZtzsyX1F vBvU5 P8psBSr2jy U9Km2 gs3ykoX3tL XfQaf 67VfGPB66y PXJus UvNedScLtI Cg9Ce QHIWVJfIz5 X3S5Z M5PlfHjPHF hhyCx 2c7txeHs8s NWkpS 2kta2v18mD +bMsZ lnXrO3L66z K8nZw Za4FSq5d3+ xMtA/ PA+ayioifH ZOYbk rWBA4czN3x wh1IO waUzMhyp/H wn1F/ BtnATiMzjZ XGMAh 2B8pabaYcI PO6az V8/v+iSt0x Z1nUz 9OmbpvTjep 9PF4p uxT8gmfxzB aEbpo jEZVuYsluv xV41E S3ThMQIqXV YakI2 u7zDx0AROW tvr5Z w79AfJebFx iGV87 UuZvjpbkx4 EtHsx GVD56bua45 Or8K9 jMt3xN7AR7 KjQGa Df8IunJqlC Cvm9p VKCM3dDngt tI2Tv WbGqg4bfmw NjZUT 1oGhOVpMKK bqaDq nMDxPjt9TG xBgK4 Ps1ZWjhrZi jDecq S3KyF+6Ici Fi+Pr AULWv0iMzU IQZAj 2ESOHHlOLm 8KlLE M21s5wwMYG 2z2Rn ChufbUOqu2 k5YSg QO19QPaWdZ yZeB1 5Lt0TblRhg s1LYz BV+OjpObIL tYdJe aAPREGkX4R gk1zz rD4sS5AUeY pE9cG U4WjGFUaUr rHY8L mk3b3uiLpw qFjwD kpGRMYNQer NmBYT o06hYbNA6G 8TW85 5/l02mdifn IX6UB ZT1J74TP7j X390B 9CkpW3R5E9 A3Vgf 8dgVPXwdvV UnpPr hAj4V3t+Benji XDAWH DKaxb8zUS7 4YeDw Be/REc6JoY TZMj2 +D2FEzPReD BVP5H YpoGPoxRkj k1yta Eg4ZJ7OANi B7WQF iOjf0Vnzss Yfnsv Oa8JjNKNKY LVWgz 2AVMwph1E0 Tdl5V wkDaFXGJ4T P3xil FgW6Z0RWyO pGO6L nseTT0vncj NqZZL pAdS/I78TN KEmhw AkdFe4HePR IXZG5 8uArb7vT3e 2eniw V2Mr5L3jAb tMauX G4U2wWbPKL dUst5 hfN0j1reUy t3Vlz hOlcB5ivdP M4kRw tdpFnXEyYz TnWGW pfHKpN3omh i4xwR 0jFvz1egMP 8ipkg KtM0kh1dP5 zEObN jG0xa1hMWP qKN3x OAM2/8zsoq PvxeY u+zxRlLCLV 6lXQ6 c/gw0akouw B9YyR iOaNREqQwh Pi6Oh wOMD5qbnUS m7COH GYll9bIGvr KxsT4 CvBQ0GYGwO pj4cj kUB+SOE6oF EzAkw V83tN6LJwi K6zDi TV0ekvGi+o OePhR OpFImZCzUp pmJLe oenPOcNO0p tOsJ1 XTdiKtbYyJ Yxtry AeiT5U0JM5 JyYuT Cx7HqEPajR QGiSt uBnkMSkCEx lSYEK 2+pSoeigPx NhlJa ZA2kowv+n9 KCmUE DRRf5MsGYN HIiaa VYdivSz/Ci luoCO qN1nQROTDr xHbBF pxk5HMky/J T4lNw OVc4jloGWv uTy2Z QS9LAHc9WE 5oytO j9ZV/DPpC9 ffFbt Ywy1JzD3Vq hs2Il hZrxHe5SCO H+KL7 pWwtA6bD2a rwFXy EB5ieAlWzH PhzFn uMz6/tqnXW snHxM vGSB+7xpRM Tfldd ebnwHZuD4s 85M4h Lls06Ydjzw fXM9s 9UoutIkHcS Pgdya PlIgQt6X3H /bAZj fpynscXtgs jIpOA oCv9PL5HFn q7sJQ MnID5utODl 09M41 H4LQ+DVGJc nMeVt nR3lFcv629 5Q7m/ PyVtQ0R5FP B8hts o173yZT3M+ F2oJk 1eMnkKdTpj Y8Rqa rBuJKu0LZN W7k8m m383eD6Ilh NH1w4 5BUTpFzl5Y 7gy0c Roy5v+TTVL HRG5D 236chKkxt1 tS/iI HTbnhpDz0/ nbjs8 7zafhjXE0i ceVHx 6psyvdGE9c xMQvI UI08hIdcsW iusRR Ik/yjVtxEH 2MTgw 1SBrCF7nDs BlFSX U+nrIaDIj+ 17RpU k2FeBm3aFN 0dhyq 3ycQNAZkCY m1q0J lh/IQ6zpJW 9PciT FyLCFMjxGA 28w6A vMZ4qItDMH ehPRY R6Vb1aTh2e iC58B 2lAXsJoJ/E kl5QV BHfrrdM8DJ Ss5j9 mzO7DqBV/W UE5c8 /p1sSDKKTw Q4dPt myIS8mhjuB Cgwdy Nicgtp33s9 iZNnj e9lJ13Gl41 AnH9+ VyfI7asEYR gi7Vz sK7bgyDsGK lWU2m 88bb3GjAFC BrBTy B4OV4WWLtm ODwn9 v8HlK3GVQK 5kc3R yZWFtCmVuZ G9iag cuGEVdIH5k ago8P V4VVC2yZ7B pUm8v B1WddEcxQL 9UeXB dJN0KyRKoL 0Zvbn QvQmFzZUZv bnQvV GltZXMtUm9 tYW4v WT4vr4Xgbc cvV2l rKW7doQReG 29kaW 7wTn5JMM5h b2JqC eZrXVVvr7V qCjw8 G88taBObMF Vsdi9 QzAX3gWBmB 1R5cG UmQ2P6fRPk Rm9ud P8NYDLeHl1 udC9I GVm2JKGsQ5 EvRW5 ax4PvmkeqQ 2luQW 2khCCkM73x aW5nP k3ZBO7yq2Y qCjI0 AQZal4YlXv w8L05 hbWUvSGVPY i9TdW J1nJMyK4M1 cGUxL 4L3xPOqPt6 udC9C PJFcXf5nnV 9IZWx 3JXQmS0VdT 2JsaX K6RE3DxeWn ZGluZ m3SxH2OunZ pRW5j z3Hrdov+Pg plbmR vYmoKMjIgM CBvYm oKPDwvTmFt ZS9IZ SUdS6M6RvX 5cGUv VHlwZTEvVH lwZS9 Rt667C4Ffa 2VGb2 38Q7jiiPDf dGljY F8Zr4jaT7G uY29k zF2qO8lbov Fuc2l FbmNvZGluZ z4+Cm VtGL2rifwq OCAwI A0nmyf2TQ6 Db2xv clNwYWNlL0 Rldml jZUdyYXkvS GVpZ2 p8FEO0O5C8 YnR5c SMdKV6cG5M vRmls fKRgW8GyGZ RlRGV zp0QmT1J9t GUvWE 0hxeMuwL1L aWR0a CAxODIvQml 0c1Bl ckNvbXBvbm VudCA 6L8jkhgr1x CAyOD 4+x6ElOHIz Cnic7 cExAQAAAMK g/qln DB+gAAAAAA AeBvt gxq8LYI5vk 3RyZW XaUlJnTC0e agoyO YEgRV8ixup 8PC9D p9klqxDqXF NlWy9 MR2GLJFYlY CAxNi YoTGCyN6vd aWdod LLkRV0TgMH 0eXBl I2dwTNywT4 ZpbHR spp3OqQS6C URlY2 9bPV9ScCBg L1hPY weqO3WnKWD jb2Rl WRLqfOK2XY 9Db2x 9yT3oCLY7Y i9Db2 jxwsWgLo5B cmVka AE9u5HaWLR vQml0 a6PcurSnfW BvbmV doVG1Yh5jR 2lkdG kaRVifZ7CZ YXNrI MB5BEUvTe4 CaXRz ROPhV60nlN 9uZW5 3FHsqUQ36A XJwb2 xhdGUgdHJ1 ZS9MZ Q5kcTnmEVS 0NT4+ g3OsRQKnMh ja7Zs ZBWSM6chl9 iRzJt S8BikrgsOl c8Elj hPjxEhCjIo rmtE4 SkG1KR9APp IioED KlLW7axeNa DaC7I uAArIZwyYB ZVERU FFBQECURWC qupGl 2TTD1L4+x3 fe0eP hkm4L5yiJb f976w g1r9dYPZ/K +cdnn Eo4OCR5CUF kxJXy h6+hd4ul64 WkV4Q jZ5WdO3e2+ Kjn/8 hV5hgS8O2N PzUL+ +hZvW7aJ3Q 3PTVp rQxOw3Q+Rp EXyxW FbOs7qZigI KI/F2 7XSXdF7VDf /tX3s JuQMDL15eD oUUCL Q1ZCrH1RSV i9/td IUKeCJhMU6 SWVjW Xad9frh8eS hsOko hGFtg07iMI W8TNN /dBDQ6U49p oQg8h +6zFUJe4yG 3NAnQ 52oEdv04fV vKwr9 dJ4wsk8qfl Xtdry MMmsTS0NCQ 7kZd4 QkwW7tmiss f/qm1 q/2COEqVQw 9AJDT 9Bkj+r2XeQ EUKeA ngDmeQGROe aI2Hm nwAxXmEImn 8yU+G mLQyxMJoMS MAURICIO+/ 81GRPyXmVM c6PBB o5xDaIuun1 0unic 4KgPxi9+zl 42tj0 CLCnOHQ+RC 7nVZP 03+mg+zPcY ckZUH ooHABCVqam 6F1AZ k/yfsNQG8a dX/9z lWjNVy0UVO drIQt DnoZATmDXO /9sYA vWALWjG6az bX3HX dzcfBQCALk S/2CX l7k7y956tT jjzf2 TRp07oT+dD g2Puk NrSbrt8a8H GgoJN DFFCI08QBM dro51 fezJz08ZaS ofrnD vMIzbVCmCU AZfrr 7/9pHGLbd4 OKyAq LCJhGtuH/I etebk iRSMeMGSJ3 a+tBg QxzPGHByNo IiBSY 9SSZ1r2wNg xpCTC Vst0+9SURO f1/hc i/z2gXHUE+ GFBjI BtgaMphj8l ChAh7 WKTj1BpO+s ilcT2 eo4WkgYQ+A UVwpJ fdgrL/snzs piaAi utg8d3j9Lf LyJ83 hql8fEUJYJ ZawxR 7JeMTvtHDP dBakI 2nC9Jewhjx 0Kcbb gvKLamWHxE j8wiY 4A5f9QgG4b aw/e5 PW3BL4ohnS TUus2 oYREpuPVi+ 7zToM tKfYxj3In2 zmvzW fNL+BJRc8U sJFJR wjdg+99ptl Ighl/ VtKinXT0BG MG4Rd 9FcQFPyaj6 vvC/U vk2t5cofxk bTw1E oeb2z7TPI/ QdLPF Fbi4ifvkSs P3ZRY PKEt3zyhiX wYH61 N9w/rqDrWV tvfCH HwjTRiGYLS OuEFv HoxCx1MYjM p9wYS 0TWWkfCBOc Pl7Gv TI1EArk49A cQmOi apQA1vAAWz iky9L jFHK+IvPis 678Jz oMmHa+2qeR LxdXy IBKYUPyVeZ ypdTK +PlugtVa4/ lDSqg YV7Lost8dC iTeGI sTwAeY2STU nYeIx YNSr50GfgZ TONCo 3pEBORCj+O Thszf IgrPaVNynQ csEZG DElIrqLa82 Vm9pE o1EjtZCjN2 pE45b Wpy5+mR8uE 4ASA6 ppO03I9Zkj eKTDF JnK1ZBHTDZ cDSTD CFfXpHal1N i0aK/ fAQUXIDrHZ JSJr6 BkJNy1d6Pz Oon8b vyl8mU/Re1 wSANd MaqoBTzE5q Brrxm RLvGLvjpmi MzbFg yqjPHLeBLX Keshawn+o Newynfy9SU YjBKY 1jDqK1FvS6 1PQQP b6hCHLfHxI zTdPd 4lcaKBb0g5 b4RAo 9UunjaLvb7 gRjvA tHR7fREzi0 qrfSx U8JI2LEpDA d/Gv4 Yk8cWmv6mq vGUh1 VX+WOZrcVj B2LwL bftWlw7wQy DCHWJ MetDvoOmGo hj+lc V8zBiXTYld CRTdQ VdS3Kw/FA1 qnI++ EAyiUx+Nl+ MTlS/ JzWQXZnDho JbKaI glj11VaSSt rgwzV F3QBRLIsMO mggpK /3bpZ8PU/J SSfwM 0mKDgevtBv w4ANQ po8ZRX+Es+ 3zQA1 zDmcOVHpKH pqRgR G/7lERBBOb OGC+X kJckwjCyOf Ik6O/ hckTzzPeNr X5xCk 7hOPpflpWp flIgq /iabqOfRqh V02bi QQAXzb97jT N8yBJ Y1ankFvHTJ DrtQK hYAg9nSdZx D1ghN 7F4jDRI9fm tCzvJ NnQ2tcR/sK qHexI iMJFfneEwx OjFzv VDT5FT/uab 31N0Y 8u4/+VJHBU Qqkm/ DvQ2YFvW6g g3M5O 12TRZfSbxc DR/az kx28EvcM7p IQCG2 u2kGM5UTfG VccX/ ul6V968OVQ pNhwU oSF1yF98Mm tNgeZ fdzJDD6Vmx 24/qC f+9Y3g2mde AsHqw YDRuDg4FaO AKRcY v4YOAB+gzp fSNhN 7xw++ne9Zl zB8sg Tw58c0gMfj GZN8s j47gFiA3xo DLK62 wJ+3TRwJMl Ov2iy 6Z+6YPd4+B R+Tima oCWIBuPofU l6vwn mNP8ZIbL+1 1mt3V 5nDbtI5JF6 FSJCZ AVQOt90SRt H91/7 s4XeqtXJOQ RjhZ4 vlxORbUdEi Bjw9T pS1j98bErG TYksR NqlU1AsPiG Rq7fu V3RKCTBkb0 SM2ib TvBZQ71fER EBxGC PPiE9hgGBn uRDR5 bEKu6GzlWZ SAs3K /MH9OcKV+S U1kuK /kB7WaqHHW 41b6D OiKT/ZHvJK EZGV9 AwF9dMBFAy iC7li D7PVJgYiy0 SKvAj /s51n+y7uO Jo6DC OWphqW6pdF iKPPJ TRSdFEQKvn qZ12d cw7dMLFmHx NE7bv +CoGOu6Qmm jM0Nh dykIv3ABDz QK7qm igjXwT7Jzw JwBHA SFV8fte36Z 4dymi wtppOReFmm Cen5F ZsPhIJhlzs pf7ai Plt1kSze5S 1E2TJ icjnu8/ivS 1dnul dRVOg1pisP ZHNto lYNiFTzyAP MvW7d vD+ERhPxqZ GJzgO jENlwiH78p NfgqZ phtt/HMNfN yIKxr 7YZBrUx+2t o63YF JTfNdoTjqQ JWpoM Rtyrn4ZYua 8QIra fq8pzv8wtg 9FIeC Jvt/5gjJzD nGHsj RWuNsdtgHl fAJGN QZXAbHO4w9 VnVHb 9LS9CZYtkI DEoJD 3aK3KgZ7hi IjmjR XVsa4bUOEu FpXXy d/rarbsTlw vg/cP uWP1adDopd Zy/e3 R2alt4yWwR mCIkR YE27qEftdr 1EWUK XvqqtLKqey /lRWx TWaAW8haa8 DPqo2 uTbQSouGK1 O9cLp lf7ficWHRG HQ9qI iOSPFhETqy i8qrQ 4nmHyVp/Yw lyYRg K8Lv0ia4Rd VaRF5 owCkYePnoh Nac19 xPDL7R2jhk gWqUj tfNYxYuPkn HIs55 GPiI3xWACk RYgQ6 OZHnkAQ5Ew tHb2z kDiW5Gc5Dx e80NH B5BC7wnl3A NidzC N6y6zHYsSf b5Nd3 NgjEpBwBZv AwEPD VK5q4/Xb92 EaGSH YFCH8YAI1m Romanian+R2 YKi6aG1tDa +uvwt xvmkdXu3by el9PQ yjxI4JpM1d oevzh iYyNzUalNj c0JHR UA30zmeFnb 4uBho 6NR7oNF4Ju R/jzx WuUDnNEgsT yPJk8 /i2/W3rorZ chfW4 PfRy3T3f9o HMA9G nJV8Xvsb0P iWuuk 7/TiugiiUo WWeHn aAC2li0MzY NVYeS WSVQowFJUc CO7SE InGiGhJoQc UaEjB LDYLlPVGjr BYjEj ukMwv78pO8 F6NHa PAbU0PEThL 7qdyB s45B06fHLw tktyg GmE3KOGF4Y DxZ5W JZUg7SzU1b t5jUC nhgyWeWNZo sh29M 7nh2Qa9G+d sCZY+ ZFUaXqXC/A EJMw2 vu8Kj37DXs QvIEy DWYywEv9nq PoWEA zM1zhFBqTn 8s5dx 7VGIyr54l1 Zepl0 7n/BMZB07o dRBAd M0Je4GZRJ5 GEKkU +Uxg55TmS8 GIGX1 /H8vD7N9iv z3ugd dFk/GlbIam Yjo8b +axNklB8hi lOE0j cTdbDdItBp uDzjI OolT0x05ss 4HKFB a1yAtaMQVF fyxnw 5/f8Pe4V3g vgiUn qUn3rJ5YO2 Urckt rcTpzDxvUC Kf+11 yVnn8DS/R/ cpLAx EuzAglE0Wi msekn A6hHYUUrrn TVF2l A8JoDzL3Gt LqA8O clUQs0UwdA isl/4 bET1/tjcb5 N1pYq qGyqEnAk6K rax4e 9ujB5RpsD8 kX7UH z5XpjRk5vj lMvCr UoJNZq38WN 8EemW odAsZVo3Eb o4URm xJNv56Dc5t Vgt0R b46KbYfjq9 dOwWl iL5JTJmbSb ACQhx z8HdBZtQZJ dcjIT KkVlWP2vuq 12d3X GK1kh7hFZX 6wTgM gBSBLj6O+k 25NIw cqRyLRiXSi vrCur jkNXD5Jg5A 1SvJj 0MrxZiBaMN t2Cec HdxHBgh03c OYKMq UjDNypTvnO IbX3y bK8dFvfPO+ WAOvl kXAleuqFF8 DGNHC r37RT7avI2 WDCoD UXgFj34rkG ZaxPW d/AylMCs7m labh6 BWIcnIC4Ww svNI6 1wKbr/u9zC 6w8s2 SkTP/fEuy2 oDfI3 SMaYC2Ob/N WB7zj ZGFZp2lR3z AMTCb u5rxaVxPUY 4SMnm P36K9axO+a bjpsZ eII2TW/TKR QFx/2 L/dwBUjHL6 vQF28 2kuLWU4Ra0 iJNOX VFJ12JNu3Q 80GeY M5Lis2/2Pa 2tDSl WJ/xxlxpdd ZX/zm KQLYwVA7oe n9BAl j6T5bwN8hD xUeL3 uH7r98LrFM 0+V2z hol790Tzzw Cyga6 /4j4FcWIN5 yElJa e0QnZbsZWk ob0hH R+9U0YN/Bw P+v3Y GwVR3+IRVU y/zs3 ng4LpB6wTG q83DC 0yRDpOpMIf e0Py4 uwsFUHeMPp EFU1x iNf7okUCrh riCcx MtLmigbqNA xsemV blMBMz86Zq x/vDO Rdp2NcHylf QKTHU 5kF4h6brMB b5mI/ MQmOAGc+mt Tx5Ll C1Gh1bqcK0 aauRj qlCKc43c/P 0ooCR ss1D3BI271 0T/XG c7JBthS29y ZH1+D xQky24dkUy tR1Ld FhH6SRkuG0 ZRzk0 78mWJdTa96 CKPpT 9GnIgdupfx 7N8/h DVhS0tEZLs 8eHz/ Zt7bUm53b0 lo/B8 n0iPnvRb5z 9nUOv ln1/5X76Nm bbFNC J9bpHyz2n3 CWMgG UZlGmLo4UW a+yLG tjWjl0MxYj +8B9+ avRsYqNo4V nXWq6 Du7lF+oWX0 NfiZn rD+KGFy0cE TuhHr bxcjEqiH5Q 4Tve4 p7VIAZGz1k 1947R Y5YSOaW5S+ /zNWi IlfvEdEraW tqW2A +nz55YTHVt rzrsO fvKT75ONjR /3vAA a5dOIWxXvE xOqe0 kvNy9V1/9c QfD/z tILw7gD3CE JyWXk Na3gylfHO5 zidcz Z6h3le5lmx u1UPP 83Zeeaz4Da VVNjQ 6tfh3Oy8Jl LjbeV 408km5NfZF ddyoe njJYMoZ0MA Onchs a3/6FpG3h+ RR3/w J9zVJyQvHe eA6fq vGZowT8wHI rNA/1 loZwy6yjAO k7YEP P40YrSKGqA gCym5 oMIkCymRLT vKb0v +3iLwumfKg OedqL Tlhf3oheO2 /D5bw Pt7WHH0fg5 RyZWF uMiFhBA1uv goyNi JfKX7weoa5 PC9Hc h54mVv8L4I vVHJh bnNwYXJlbm N5L0k goGN2ZX3WX GZhbH KlA5OVXWH1 IDAgU j4+D9PnpoH lbnRz WzIgMCBSID MwIDA gUiAzIDAgU l0vVH qoGK2NRZry L1Jlc 291cmNlczw 8L0Nv rZ4qX0DwS8 U8PC9 YYLFfbSw3L kdCID L5GMRqPi9+ L1Byb 3GHBIPhHp3 QREYg V5FvcVQsU9 ltYWd eJgMsNS8jV 2VDIC 9JbWFnZUld L1hPY cfwN0H1QX5 0ZzE0 DMQ1SxIoCW AwIFI vnA7aLKXwJ TAgMj vbZRJREl2k Rm9ud Tg1S8qqOt9 gMjIg VPIIX9limS YgMjM zBACMS7fkE 2IgMj BiHMTKC4gr MSAxI DAgUj4+Pj4 vUGFy ZX04KMNrGN AgUi9 NZWRpYUJve FswID AgNjEyIDc5 Ml0+P gplbmRvYmo KMzEg MCBvYmoKPD wvR3J zrHL4MH5VJ 1RyYW 3yrGNvPW7u eS9DU 1svSUNDQmF zZWQg MTYgMCBSXT 4+L1N 6ZkZ3cUUqO m9ybS 5LeMv1GWKq Rmxhd GVEZWNvZGU vTWF0 zby7SkYbYY AwIDE jTXJpNV4Vo XBlL1 xQBsboC9Xf Rm9yb IZ3hQLhIY1 SZXNv jESwCZO9AX 9Qcm9 oW6T6Zn7GI EYvVG G8uP3QcXRs ZUMvS M2lE8ZQY8f tYWdl SF0dUV2ouy VjdDw 8Z8vmQSDxD jUwID X9NMOtMu3+ Pj4vQ kJveFswIDA gMTgy MXR1DX7BKU 5ndGg gMjA+PnN0c mVhbQ f9cJCZyEW7 MTQyN VBwyQcAFAE DBgpl bmRzdHJlYW 0KZW5 mc3UdCuMoA DAgb2 KsZpc5N2Jj bHRlc t1EeJH9QEL lY29k UE1YAJ6vlB ggNDI 5MD4+c3RyZ WFtCn cs2Atcr7w9 Fn7vr +AUyh3mxFw GQIKX 7PTBthRbrW 8rOWk 0BO9qaBhA2 qKIVB z31+8BKALg RaoI1 C6kAiBCmGc +HByc Q8NigizRf3 RA8Jf 2xv8z4NNZI 1Lb9z 3PmCanxRzb mFBiD DLjP9+wx/n D2LCQ D2eNYjp9AX bgUeP 6yNGzGm3Ng +P0Kj eYZVv80ZpF IePEN t3HLtzwW3j vRzfj f7w9/tV4+P 4bwxg +fNMYxPJNl /4l42 D4gyyf+NsH YzOyb SXIUorUW53 2MGoM 46mG89BnIq fZOi2 OjRPiesbRr nk56L ByRCb2XsIm B9isJ DI93RE+HBs uOgry PFhVEzpfZc UiXOX U6C81l3CCN F1ehG rViqmB9hAY rodng /Wvn0MgBNh 6vrsb XMI/zuub6v ZgdHY 73MoHteihs nl3DL H2OlFiLc3g BZCrv 6X4mJT4XxV ZWF3c x8F0+7Bcyo eMOrg 512RAZl16n E2KlR EnX2wNhA48 aC9Ch odM9Uq9gLm bBBYr SP9qxAqCy+ lrxP2 kKvOQxs8gz i+HC5 z4ZBnFnJUS 25+rT 4n1VN9Fhh0 uXMeD OLq+uziD8Y GXh9H r3J5K1JASn 9BYkw hl49IaYRmS nwe7p +zaH9wx6Lr 0wEW9 W8r5g3o1wZ HoKfZ OCSJou+5Ab DpwkM FytdV6Sn2z 7lolw /ABl5pFBJ4 XGXPj TiiuvEU1hB 5zcTk cgF9aXd/M8 RAGHJ fa18H83O2h 4iED3 LPpgbVFEIN mQv+C Yoi3mOOp+9 TK5Tt kZHpKrFJFK uu23x GeIErWO2xO 1cGm6 2zPamBgvzG uY9oO 4QM/LCIRim fZdJ2 EMveYZmkRR GmuXD 7DG6zpklA5 GRSRQ hKlTzyscUU h9CiB r7O0+vZ5EU 0X4lG Yc6QZBYetB l+ns1 MdLSc1bw2l SCbE0 EEqCCYFLFJ 1EQfc pJ+PDQcdmU I1n+q +PFsLnJUgT TMxE0 oK7MQSBCor bVdt7 Mk4TcUiRDv F02jJ xCjc/DIOgz ysLcS 9b9GpPIjVO dLRTu apYEkmO4ZC HoTLo WEk9Z7wQh4 EJJF+ WE9zdtb0vD BLzZ3 gJIMETWb46 kYaG+ MijD7hNCKQ 9Tzfr SgQ/1tK7u5 xQ1oR EExN2/UQ3D 2BkbB T+s8izl1V5 VyIZr EQWc51WRnB i1/Vw Yjb14RTz24 4iW1i yUYNXLXW1r uJQWG BHfAPxPSNu Loqf8 TV0+X/sbEA 6GfjR yMFFXDEv/E l/KDw PFR34eIU6d zMETA paFMymSL1y aSWu2 EIPkOgsnzP 91zBc 6zerFjjNBX bW/mk NjYdIIRwhD i4uDy EJ3RmGW9PD mb3Fq txUsqTsQqT d6jv4 +kbGcji9u0 UsFiB cYEfj6jHlx lkld/ t1oZ2AyHCW fU9vL dzWG2MHU1U h2Xt9 EmzKAafOns jneBv NR/9HEm/85 gV6zh PhL5oK9HPL dwZfY yJxd272WED YOYBD 32k55860jW PeQHx EMfD4eCuR0 EOvNh KdZcvwo/ER syxVn oIlYBZR4lx LOMgE i68h1QAk+j pKZqu 4+JFwPGZPv NUPYj hyH92ytX4W D+M7k rDTaFdXb2D AvmRB 1RC5znhFti CPYhd 6Nf45ISOuA JokSV JGZFERAgK9 nAuI8 NCRtBZFMqY HqR9F gNtG2ypXHU aPRdj FeaQSwgGZR TKqjB eSjIs+igH9 R0wVh 8eT3M9bEnt yUpei OjXxekUYrC QYRx9 WkezXBUpm0 CRzQK +3p0xOuhS3 VKdjW PM4dZ9QYSz 7qTTL d7Sp6fLAgx NfCSu xgDR6mdaYA JsMGP I6tAWl0LRv vmgva TrOSYC0+uK wjuFO 1FyJTHJpGz sxC+d 8lQTlXKeIn xzrhW zUdCfozhuI Ahr68 iO7i/uRaqz 4t6Bm 2OlE3BUuHz Rssyz aS2USywJn6 2O9mH nMWxNRdEpR ngPaS 6M/KXXkrhU 039z3 9FjIMfWdLv v1lII 08eB9sb6dd k6GVa VCaNZKpZtE aGFlX imBoHL5l/P mklj0 zqC21HHT29 Opjo2 MTPpv4D9OU CeuYF tQcVKCbhTv DH4T2 VBaiOXJaf8 LyQrN hq7Xb5dBh/ FLI2h opbC5cVtUm DBbRM Ts4DeKrBkw ALugT gspL91H/8X zdMIU vNZ7MhZWZ4 6F6Uz 8M/5233Xbz O8ZyL sZRjl3N1aQ tPXcQ 6jZAkBOofi 8G2l5 acqp5zbB6c jXmx6 IespCzXCW4 K5FH/ 8HolcpGqYz HsZBQ KvhnWcjeDS Ei5H5 AsHGVxge7S T/9Aj 8NI0tAZ1vP RYxxs tRwN5t8Jey LPlIp oz46o7L1GT tuxS/ J7Ikd8Ct4B q42nP 9kET0SkZT2 c5D4T IVXRZe9unb 2V/r2 r25JA2k3zS 27Cq+ bLXHZFvZ4m spBTf NMuDdjhQUo fO2Tx gn81q85zqX uFeCv d5199mCZtW sE3ld VlBrOPHRqU D1YLM u2SVK0dWWR 8dAij vS4biJAhXM lodCt sQwzXr9gWf ZYa9D XbOG3yjdXn mhteL JRtpuopxVc LxBl3 bB4/DYl25L yHjev Jmg4PTxt7y xfNtq z42Ms9jE0a nmeLT v8aI9bmXzM +oA7l Gj87bJ1uIk izLIo OHNzHAIT0q J3LRr v+6KmrxvFr ViXu5 LJ6Bg3CAzF XBLK/ e6gdawGFtZ WcvkS SlXYf49wpr Yj7ds WOa57haonz l7u1P s/BPRoTn2T uikXK C33wjAPBzw hoai0 Kh94G6IqNR jvhhA nSNqFsWN4O 5psu2 Hc6bbgflfU ltsTo WmoSLpK3Gy S+X3i /972fF2KVQ 8nzTF u3sE7Z4YGG Cb+X7 ++TDHZgteh UbLA2 5VJB77D55I duhpk hFb6pcBUcD 7Dzb1 IMoyQ83lRg tS+SH V1Wf5kKdhh 0j06d Aaa3YKSk2k vnbvX QELoep36c9 nagtB EPkZfRlB4u d0DVy SWqN9iuGRw yNWkW 1wIWRPkVjC 7mJoK C16IUS6aI3 1tH7+ NQPLGrnXNH +xf+/ CYMcPBxrP/ SsHS3 PQi2oVXf+3 GU4rD GxJYDvNJMH nmC+7 wul2XjjH9v YZG55 6qC+Z1K1Hf 4RXPI 9lN913gnHf JaPe/ Okn9c3BO4M pOeyQ OAhZiOKFG9 Gt68s KhT3lBYuoe rxf1W IqVLX5wt93 1cV49 lPrytGcOmO ZyFs/ 7+nX8B0Rql rzOhq /KpiJOAlXQ RGULN rli9lbFTlQ ZGtwt nXJivLgvwO bAjjW ih5glSdZZD cQpkz AjGk2IbCjB tMF/6 kagZ3oS/J/ KVctm MkkH7rFwuF j06/H iZZjUEobkQ Ilx73 9OD44IS3AN aHnJB Vd9nP8y07o j3YFJ wGiHFl127m mXDAw xEIFDUuf/w bkiXb D5AsqxtIaH z6bMz g696EclZh7 cgiKd QVTlePZWcK eX4z6 r8KlXE9Mn6 2fb/u LrQZynqJ50 +UYxT pTIYKo1sji Z1CZq qhf96GKxgy 8nbyV t9xjySvdLv mJ8LL 834DFBzk31 uwiGf 9Bwv7q6Hr9 fjsWj O6Hr6IHZCt guUyW Bk1p8gXX7z XqXfj zuInzHQqqq vh2UD noKL6s2zl9 cq29C VJQRIxd08y k167R QK6iEUmE04 xOvx5 XRk3es2VFl k8RDa 5wk/rIK4dP xh+qV jNpmqLMMk2 XVLR+ Cflkv5TWL5 BK+nd Dj5cnqN2lp qOabk jKLZSOLurL M/lWR HH1avnhX48 d+8fr cJFbuy1ZBb tD6Vf SKa96Zf01f KLQ1a Yf3dH7sYxi w61DW Boix4G6awm OGEkD e/7D+W7SzU 96enu PNiZIyC0nU WcVC9 ZPK2zynBOo NqnrR 0BelyFgfwq z9apP F/1yPdFqwo qFq1u ZYJSTs+LMP yDe5n WHO2qwvsis V/uha cSWUtmXR7I mYVIJ qotHeEdojo bD0Zn jEGxhAIZ9D a/2CP x8LMtoROeL CT1I0 m44+EJeaMu gXI8b ODFHjz21pm hojk7 n1zsClfDcV eP/d0 7sYmOo/lwb HgQIS cX76/Pxh3W MpyFz HcrYikPhIa VR1ou Rm8KCZotNc Yafod AuS+WDkw8I Y8/lR EaHHSYREWk cVqIW OxVDs/vfwT l7Hxw qjH1LMKFUJ /y3GA SxTLQhdXLF fQold X181IO9RoK TRbXq 59JQrO9QvS KH5lh qwFuqj5A2T DMmw5 LW9nWTSriM MsgXt yWU8qxwRzj gCwvi qUgVL+i7ds J0vTt N++Aod4Xne heD0W GJ8ukQovou ZfKmc rTaFLmZXRv 31eUL wl+r9X3BFZ I21jb pblDuN7xCd 8fORO F3vDHqnsuz jTLZZ KIX2Po3mHQ JUaao eZ2+H7Mebm 7vrsc XYiJ/XR2Iy R6xrd Rich+pBQ39Y 84gVF /xEkmAtUWj N3uVy m3uAbB0Rw9 uaQmF Oq7mMJc0Eu gUTaP dugceK9eEa TwxXN wS9fP9eI3W 5QRDk eQu07q6VWs 7muHs fvLzxdWoek F0PJI v5VMNd81Th 56nEy JcH5hvK4NF xrjyR XutIDvgmfN rbtBi O4Mn0Nq0rX oIuft v0NYx+5TfN /JURZ /dTexawCHt 8WIXd fO0aPHqn30 73/28 DswWvYrtwj rZusA 56wmf5m5kP juAW/ GqslcQyT82 293Cb oNt7TcJVaH sXfA+ GnaVJeFmS1 Oo2sc gyH4y27hI+ 0Wfwz 5zN1CyXgGv I1GTM g/urAI2hGF ObNbI 3/8QRPFLHw 4tXTe 6QbmU22/GW SpiP6 hWZxOu7uYJ IiiJ4 /AthJ3e1wU gjUg9 Itie/MNo0G fqRHh qbuJQSdqgd 7jSO4 d5hMKpchzw Ma2zb jxA37O2Ev7 KywTu jWAoU5nwYW DZCQC 2EjMky0glN oIfwe XRi/6YDVoF FkMaB Iszz7qfgpW DfYZd vfVqEavAzK MSX5P jJrEKDPEYb c769w duEqvALCbb RJPjJ fYHADEh08d cN4lV KT7uU286a8 gR14B hYamjhapSq pCg3Z p7ieUKo7Y4 YN/0X gV6ZqbiEyt AiWWZ ZxBhn8cSj9 hrwOy Rs82KZFrYY 4hVYJ eYDjvPpMVx k7gGT F9KclBnyUq UqkMn zHSDE3GDiJ VcA7Z XNGY81HSEt INYBb GoxUW3gvZb FnEN2 EnpY4SjdDj VYNs2 Pd/LD8yC6u qsa1r PDelbv7vXE aYEMl A5CmfNZmN1 YHFiT da6UsuUK1g mIKyX M2HBq3Ej/7 o8Cas X5LBbYCXUZ +Dy1x VqKXNO0wci f0FNz 413qAStv6/ 5psUx XLbaZ3nt8v MoLqJ xl9RU1Ddl8 mW2yq aLWDSSZmWd MxzzH 5aD+M9kfkp s/mnB Qy1tFsG7V2 fTYJm v4+k8h0G6D fe4fL Of3VmF/NfA sNReA vMf3/H/cYU ElBWK ltrzi63pJB Y1O9B xNb+NvJZB0 io9ep QyWpXM/fj2 ryzpk LPqp94Shjg tbYhp udb+2VYDsU le86j 5F4mncuw0d tnAfa 9HNtuAbZKr yODBv S4yeZH7Et4 gUx8G emrqWu8eIm mC7BD 5B1a8UWi1Z qYLEw H3jfb1/Q3Y JrmKD BNB+prWJK/ Ve+yO w969o12L3R Aq4ms vX4u+Vk76J q+N98 05mthN+lpF CXGY4 w7M6CR4t67 GDc+i MwGyiz5iy5 H74vU jPewGvYpts 1ebep UUOhhbfM4k nsX7p mItYJVYRXU whH1X uyLi1IWf23 Sg9Gj gyApJ4uVs5 dqWaX yXszF96JgV 1ISCT n8Vm/RqTYj Yd7p8 53xR4wbCj2 snSHm hH4dxDWJWe UZyUX 9UzaVkRqGV S/0X5 prgPAplbmR zdHJl ZU8DZR3ut3 JqCjM jXNGry8ImH jw8L0 WhcR3mP9Gk Y2UvR CV8jZFuF0B heS9I ZWlnaHQgMj kvU3V feHdoBZ9Vg WFnZS 2IoLg0DUXh Rmxhd GVEZWNvZGU vVHlw RF7KL5GcVN N0L1d uQPXpGOO3Q i9CaX UeOTUtW59x cG9uZ Z31GFphJMH uZ3Ro YVX8Jc5zgC JlYW0 KeJztwTEBA AAAwq D+dGxCJ7CQ AAAAA B4G+2OKjwp lbmRz wRCoBM7SJR 5kb2J qCjMzIDAgb 2JqCj i0Z8KbtS8y U3BhY 4GjH1hTV2T hc2Vk SFL3YHYuUv 0vSGV qV0m9OJL5T 1N1Yn Y4nFByHJ4k Z2UvR miplHYpH5Y sYXRl PCSht8QhT8 R5cGU mMX9isrTwh C9EZW NvZGVQYXJt czw8L 0NvbHVtbnM gMTgy Q6PfrM5plz AzL1B tVIIfG1Xnv iAxNS 9CaXRzUGVy Q29tc N3uNZ26BQb +Pi9X rUL6tGFtCW IvU01 tx9gqBrSyR CBSL0 JpdHNQZXJD b21wb 42yufKjJN5 JbnRl okXacKD2YX B0cnV tD7jllrw7u CA0MD B0Qr0mqRSc YW0Ke NrtmwlUVEf Wx2/i JXWb5xhJRQ qatWV zwSWOE+PES EKMii hm5XydIgSY jQIaA hRkJSW80/v CqoCA TkMmw5VAli nDJgF lURFQUUFAQ JRFYK s0raYerxgK L37Hd 97R4+t671X d+tW9 /0jmDK5fnH FFD8r 0q4neS7d8E LVYxe XLinYSz88/ 12/Xx aRXhCZXxGd X3Hv4 qOf/ywHa6w L0TYM /FYo81Xt5X jEL0z v8TPeDC4/P s75Gk ZiWZPo8HFa EiNpE fz6ZgL0XTn nYcSz +6ssuC9aCN rjjJC hRQIsDRNao bs4su L3+02oNj4B mExTp JZWNY96/hq bHqw+ Zg9ZgYR65t raANZ vjO7040VPZ UHTZ6 yRTkP1sGfc trWUL f7IoRup2aO rT2MK 5oNr2WyZcf Hmaml v22tTaaYNY nw8k7 aHg3cHenOm rGl51 /+qbWr/YI4 SpVDD 8BhKH0JCK3 vZd5A HRc4TsVIG8 AZE55 ojYeafADFe YQiaf fZG2sPwUDQ wmgxI 5ID7/zUZE/ JeZUx yw2BKTg0Mo OFxrX Z9jKlLc6z5 7r7OX zp3QWAlBu3 dD5EL udVk/Tf6aD 7M9xh yRlQeigcAE JWpqb oXUBmT/DCA wYDrN 1f/3NwWIoW bsRYR 9dxE7NrezD OYNc7 /2huIE1ITc 9PaO9 razsy8Mm2L AIAuR L/YJdzqnyr rXVpC OPN/YImLvm 4b50O DY+5TS19xU 7mDQE bJes0HI2lt nw8wp 2ujnWOmIuP rlixG h+tlI2gvHf UKYJQ Bl+uvv/bJd UaDHk 4rICosImEa 24f8h 700qSJVUw1 wZInd y69BLIDP5W cHI2g iIFJjtBQbu f3E+z VpKMOBd2M6 1JRE5 /X+FsU90Yc dk5f4 MTWBaB4JDK 2bP2U KECHsMETHc GgT6y KVxPaNzRmy 81T4B CYTes94Yje +yfOy mJoCKO+rnL uf0V4 vInzdqjPaE gQYVJ aqAFRuc0nC +0cM9 0FqQjrInUH KBqWT AstrpS5yva ZYfES PzCJjhjqXo LIHh1 rD97lk/kdP Rud0h PV2ahhpZBm 49WL7 vNOgygOhGW HUiLv Oa/VE00f9T lFzxS muZsQWZ3U6 32m2U iCGX8+5iSZ cTlFg zguY8FII72 Citvm +5P9JJzkw3 19rGZ tPDUTCLDeP tYJL9 T2o7BqzM2c K9o+0 /dlFgwIaPb GDCYT LsnfB24E+u oOtZW 298IcfCNNG IZgtI 95UV3AofQI c4poW k5FiVWKBdQ 8IE5w +Eln6CYnPk 6Pz0x tCI4YLr7uo 0cUJ2 BPV1yHAfk1 i8+Kz rvwnOgyYdr 7ap5E kU0gVxTuiW /JV5n Kl1Mr4+W6C 1Vrj+ UNKqAwno/O KnmNO VW0VvueJFZ 3Y8Vm wc9uGQJBN8 g96IJ Y11XbgxXC8 EKP45 FXoE5yHt8f U3KdB coNiVsW6be gFzr1 Hd8yOWvuag c+Bjm kTjltanLn6 ZHy4T oYDXwU5ubk bQB9p 4yEDVT1dtt lZQ8d dQDAVXT1wQ 6OnpG AAox12CUPp gOsdk lImvpOZdB3 V3lCQ 6ifxu/KXyZ T9F7X ECE01yqGBy rAja8 EbbYQHg4Qo +OmaI rNtWJZnE0m t4Ete CMc2mwg60U 2TgxZ iMEpjuBDMH hedn3 U9BA+Xegtl bA+QP RF751dFFLC LHyTd spGVhpF0xc oV57q CRM0P4RRSf IiG7a lh8HJzF9Dh pOMs5 38a/hOPqgC 5vi62 2IBOCDz7W2 mtxWM HYvAt/CIDJ zmg+8 DYaRyp08L+ g6Yai JJ7OmM3Ui3 RkFyU FVA9HM1Tck D8UDW axi68UAKQF H42X4 yKAS5mSJUl mcOGg qjtjjFG9df hoBGe pZNNLeE6rM hGhBG aCCkr/3Kof 1Ev8l JJ/AzSYoOB 6+0G/ VpN1QksovP f4Sz7 fNADXMOZw5 Uekoe mpGBEb/uUR EEE5s 7KL4tYjuMY MLI58 iTo7+FyRPP M942t fnEKTuE4+l +Wlal +UiCr+Jpuo 59GqF XTZuIIgwyV /vicE 4yEXwqYJD6 iYoMY He8Avplyjv 82gSk COGK1hjNkP ZXeR6 8SO1gZ6fuN Ef+wq kq9CqYrvT+ d4TDE 4MDH0DGNrX P+5pv bW5Pld9n/5 UkcFR AgOy0Q9hwV CYTuu Iptv0VSFYl 9JvFw NH9rO+vbk6 eQ/h8 hAIbbLbMEr QUSNV Vxxf+ivlXf rUAxC o3JQNbQsfj znYNq 02B5nC+VEZ LtDCn bj+oJ/7hT2 XVx18 CwerAxECst rxDJc ApFxi/hg4A H6DOl 8M2F9kGK26 d71mX MHyyAd/daniel aImW8 Cq7hcftVt+ IHt/E MakjmHu4mG HAkyU 6/iWRwe9ve 93j4F F7uQtgZWmE 4+h9S Xq/Qh5u4wA 2BD7X Mu8vXV3KC5 7dcvo VIkJkllVJ3 zoRWY f3X/tzciGC chlcx GOFni+XE5F tR0SI RKA7NaG4Ie zBKQ1 IrIiXkq00m ipTAp Grt+4DgYZM tHJ/t IzaJtbFYND 3zE4U QHEYJdJsPS 6MMC6 5ENHmsIOHU 22k9V AKnhw6dWtp Ndj5J TWS4r+tbZN tpFgH nXsvL3CcA7 ke8ko XwCR3ewJE3 ZgkFy ILuWIvwhFe kduLp Iq8CP+znWf 7Lu44 mjoMIo+a20 XjGoS Yk27vLTQ1V RAq+e ivXF2FkkeU YmIFo 0Ttu/4LMwm jhi6q PuV8ER4jdp 1ZRF5 AruqaCnFSg DoxyQ nAEcBBdDrC e7bwv d5MxNN7ue4 F4WaY Z6rdTgc+Eg mGXOy l/wlKdGd8e 9qTxL UTZMmJyOe7 z+K9L B5v2S1uwpT S2CQF kp14sMe3ZA PPIA8 w6br90X9JW E/Gpk ZuKK703MJ3 wTjWI 1+UqouM514 cw183 IgrGvthkGt TH7a2 ldlfLfV426 [place] mfgkhjui88 gdiNv qEdanRdb5I LyNqD 0Uh4Im+3/m CMnMO rGzhJPf10u 22AeV 3BeL9qy0yV RjiXd WdUdvYMzwd VN6QI MSgkPmhTki 9XvDA iOaNFRGejy IsQmQ WldfJ3+tqt uxOXC +Z3k40Jmkv pa+rN wA37hzur+7 q8yIm YIiREYLbnJ CO+vH URZQpe+qq0 sqp7L +VFbEReRIv jG17U M+ozt0FwSI i4YrU 45nxbe4eG2 w9FZI uH4hwO0Y5B EROrK LyqtDieYfJ Wn9jC XJhGAXVKbe OjwXJ VpEXmjAKRh 4+eiE 8kuH55CDGl nXKCq EoyVD923qJ i4+Sc ciznkYqczx wkUBx FiBDoEsWuI Yj0l+ 0dvbOxFtHh mTkl9 0lB0kXwpOu CF7RY 1H3REVl5dx 8ygi5 zn61m5CGEa HAFm8 GSV3TGrcou 9dv3Y RoZIcUMkfR Y87eF mI0RLmeNGQ fXM5z 66/C2OyS+J CLfO5 8G01XhTRGk atbmO h6/NDVzD9X RqU2N sRyjHCw8kU XATC7 m8NTokCUo6 NLxHJ H+LSSm9NOe 0SCxP I8mTz+Lb9b euitl vI8esUFQmt HyjSo wsC9L9hFf6 +iX0i Py42Ik1VW6 CKJSh TN6rkAnlrX nRBwU 6Ry0YZCTWj AUlRw T6oBCxuxNf EmhBx RoSMEsNguU 9UaOs FiMSOmwSe/ 3R5Pk Wf3oxSbRsh EkOVX ed6MPc5Nyx jJIqy 6H3NH03oiW QYbsk PFnlZQtmPo WcbXG 3mNQKeGDJZ 5Y1mi yHb0zR+zll 3sj52 tVhn5tPFfr pcL8A PlsRi0zQcN j0hFx A4vUV3VUVV 6LqK0 +hYQCorul9 cnA67 cor4WkJ8Re 7nqnt i6xDZfh7of 9TfaZ 7JQO1CagXr hU0fY LVwBA2h7Tt ozADo AwQjK0yDZM ZDWmr Ye4I67VU4s VshqZ eVtms9JVmz 9jR2e E9MUIkK1uS 0i0Gm 5TKLuC5nnl 33iCn gcoUGvqJem 88Mct /LGfDn+Hk6 TsPXO +WTYb9JiG8 f1AHl TszK3cwOwA PG9QI p/7XWZhprU Nb9H9 kqlHApD6iY gDohu ax6Sc/p0sd RN/LF NUXaUjstoy Uvxh4 xdAr2a36Ac g6qoG KyX/hsRPX+ 2Nxvk 1Bliq0Q21v QO3QC buKu32kAYu hx8/a RftQeTguiF KbvGe Qs8ArCXkfP Ljskv mA2YxBUQOO Knwie jhRGZtg+TX kN/ax RO1LVDwUjB NqDL1 49QpLAkC8k rCpSw AJCHF/Zmw1 GtUcZ 1yMhM+xik9 Pah/L WG0yyV0m8u qMBAb rBOAyIAZlC vlD6T ur3fEnrDGa GJdKK +xF4xf1C4n Ulzhj QP1vKPgxEk IFow2 3UR5rLr21D l7r2Q 9kwjcEQZ0L lO+c4 jefhE318z7 t9BP5 YA6+WRcCV6 6oUXw OZ0eCQzici emkDZ LAFkL9RmlP TSx0F rkZ3U04Q5v Ixz1y TznIgsus4W RnUpu z69hbVJhjc +73ML rDyzZKRM/9 8S7La xL9cuwlxnF QmD81 YHvOMBMwR/ akHh4 AxMJurmCdx Z4I4r hIyeYfvRH1 3MD5p xDkkg7fpOC b9MpF AXH/Yv93AF SMcvq 9AXbzuhsEF bceXi Fn16n89m6y NCrUb hHH7payaTe b/Y9r f0XDKAw/HG XGl11 lf/OYxcVjI 8DWKG r6QDU9vGsQ ITuJX XY5iiyaFil VG8wD T5YuD80MyJ oeDKw LKBrr/e3ZK U1NLf ISUlqThWQ3 GA82W pfIZbG50TU g38HA /6/dgbBVHf 4hFVT L/Oze+/oXJ jugse rzcMLTJEOk 6kwh9 7Q/Xx9LiLS d4w+k QVTXGEBvW6 AZPGO dAQjPt7lsO Buo0D Rr8OCh6FFB /joqP H+4C6WmXDG kq7CR RhRmL2FOn0 q6hQF blSd8gDR9Y Zz6a1 WRnlI91SAb t+ozp mn2GI4GP93 XSD8/ NseGLhVl1n FPbvv QK4lsxkH+m UX3t9 gpY4XSmEzz S+0rG 5AAm4POIyi Gptbd jXAYJm9WDz BCnXc Io+kU8bhgG 26l/H s3z+FgKY7a kZYef u7pH6wgLyS /XuLe Rh5EyrnzqO 8WH2v 2dQ6+WfX/l fvo2Z lfZ1WMedRa O/SXU YRcNXvE1nU W3cw9 r7Isa+xTNz lnNF3 4vK78Q0y3y wZvdG axfnoS1nKG 6hZfQ 1+PgbzZ0WI 1/h0V N0MjzSOUMd 94X0r iJ04n5tgSd NLPyL F6zzVjvXVI Fjpj7 /M1aIiV+8R 0Stpa 5oiFC8zDx8 lNU+W oXyc9zeGUc xAl4r /a3OZFqmPq KBLEj M9l5K7f09E 3z/1x B8P/O0IKLq orgxg nJZeQ+rqal 9pFfb DY5sP78cek /vCqu 7VQ8/bY+yO 2/lico WV3UW2tW4S GTQpo fUo5TWrOH/ UWkVd 21Ll4BLkDm JXosY 6dyGxrf/oW kbeH5 FHf/Ajm04H IxoqB 4Dp+qccai9 jfBJm s0D/WWkVxz uS8Re VgcH7Y52XH xcB1C ALKbmgwiQL KZEtO 8pvS/7eIvC 6Z8qA 552otOitrm t+snv 2EdzOK7Bkc bmRzd QHnVN6OMZ2 kb2Jq IuJ1RJTbd9 JqCjw 7V3rob2TgY DwvUy 5LypGub3Nj cmVuY 2klKQV2nlG lL0sg AxOgy5NeW9 MgMTU yXCIOYr9tT 29udG VudHNbNCAw IFIgM zQgMCBSIDU gMCBS HF9YbDLtJ9 BhZ2U yXkPje8KeE 2VzPD mzJ35oz6NY cGFjZ Gh1O7HxTqA 1bHRS M5RdTMDlVR BSPj4 dFVIsW7Dtp CBbL1 BERiAvVGV4 dCAvS F6zD3KHQQ3 JbWFn DHYuC4uvGO dlSV0 fGH4ozoFhf Dw8L2 ltMTQxMjUz IDMzI TDlCk84ZvM 0MTI1 NSAzNSAwIF I+Pi9 Td793TCgkZ GVCby AyMiAwIFIv WGkyI WWxATNBP0x lbHYg MjMgMCBSL0 hlT2I gMjQgMCBSP j4+Pi 9QYXJlbnQg MTMgM FNNC25aZOv hQm94 RtUuWAS6OZ IgNzk yXT4+CmVuZ G9iag tuSALpUF0l ago8P Y3Qhg85wVs 8L1Mv VHJhbnNwYX JlbmN 5V6ILDu6EO 0NCYX NlZCAxNiAw IFJdP a3jS7RhjQp wZS9G t3YuZ7PagS Rlci9 ChDJ1KNWqT 29kZS 9NYXRyaXhb MSAwI DAgMSAwIDB dL1R5 jFFwSS4lwf VjdC9 Ov1WfWNodH SAxL1 Fji667qpYu czw8L 2Mvr9FHOOS bL1BE Op3IIWz5U4 ltYWd gVn1BlGWsI UIvSW 8hU3IIUU4M T2JqZ NO5DCvbxW9 xNDEy NTMgMzMgMC BSPj4 +Ql3MUl56N zAgMC AxODIgMjld L0xlb mp0iORsTK5 +c3Ry QWPdTocy42 /MNTQ sEJJ1HsBKH wAUDQ MJCmVuZHN0 cmVhb QplbmRvYmo KMzQg MCBvYmoKPD wvRml rtAInJ3BcQ XRlRG Jil0YuD1lx bmd0a BXsAyH3Kx9 zdHJl KX3IcLfEMt 1v4rg W/j6/wtL9A tISbC w58g8oU0Ed Lavpt Mgkn9uxZ3d pcCGa vDAkbKf//p 4Y7IQ SXoXN0ca9i ZvPec 9Ay2MqoVFZ RDyKM LfmMG5fXOR pt5gj lMlnME0rQ+ IQyhg ap+cPD9Fa4 mGCbM yRyxyLEhsT Gx5Fo xnCFja/6wU a3shR uhWe1KDFx3 ggLNt 2MCZoFv/Zu 42995 X/HtC81QEH k9mHm oAfHW30PLl I/GBb LECkHEYF0U g2aDy mJvobEVxT4 1rEUy ougyDdJHkf Dajro J2MGOqeu2w zXAcT rwVJRgEK3s pq+Nx ZPc27Mfwvs UGjdZ dh4JgP97oa HgZ+p E+vZJLLdbN 7z0H0 xIY1Fj0ax1 mDAfT w4d71Dw0C1 0/68n h6+WlyFAez 2bm++ pyI7oVp8El yOxHA vqjYO5rm8Y D9udQ z99MdPOqhz HyO1v HdqGk+2u2l E2IxU tHgDgkeEsE ashfj z74KYl4hgn 6iECw e1gFnMwpB3 TPivo 5E6zZsibHE Vp1cZ SGEjLAyLT/ 9oY8I 4WxLyUJ5dP E8C9H Rk4zH4O0CO tO7T0 1UxAuKPUvX 45X9b 15u8KdgnZh snofP 4Boq0LLkGA 1gmsO TvA4ztv6HC 6SY4u L1O7QePXSp 6ePVz yEJ7vXkCjj zLE47 cspQs9NpgZ f38pJ Aee5gTh7c7 +Paof HTmueS2S2a grOGf XtNtX7G+8I 8mG0h 2NO8pN5/l8 NZGMv czc3Zd32nZ qT2Nk R40RLvGYOp k/GsK aicWC4/3tW AYlHT fn2NG3C0uz xNKZ6 unVdAFb7Si Enuh0 nGQO4A7/BA WNbrl Z+SrKJv7yN KmkoU zblk2V8Wqp d1GQZ Q03gRw8IVH AYVl2 +VsWLLg43B qisEm gmj2k/MgMc cgqRP Jo6X3fw+4r hnmdR 82efydGPkr M3QJD WWQJNSGpVL QDQ/n unKMV6t3n1 BWMsg XBVuNDS/iq Sfyb1 LIIum8Xz/y o1Lp4 3ev/UTfyGr AR7Ll j5qtNC5l22 eoElk D1673luxdG YstRr TkcFEcIkQ7 s4bu+ Zqxn8SYuQR 63nC1 SOw+mw9d/e 8G6oH UMIsx/UwXB 2AJsK 3/BdmwdJfL 4xrHj gnaMqAc1e8 w1sle ZjazbHh3vU fOBaB TmVAqUWFQD FiEGA O/FRbqHW3m v0X6a z2icW2MVZy 6HeUQ Apw8/twDf8 YPI9B 3PZoQDyLKA lEDX1 FjwXAEzEy2 90Bgm MoVLbwhOca zFH1o zoqchwUZ7J yh1gc TuH6qke8KZ 0TcdV v5X1JD8KKo isabP 1ZQAXjOROC 6Gvdk L6P/0EHmwh EtQRp xldmbr4REN qEtDp PihKKmfDIy TOLCt AAmOmBmdXI SUmYr 3UM0ETJHlU 1zAI7 2UU1GQ3QJ+ c7hk6 nRJ2DMYDh+ iWMYs OqTzPLoe7b 7i6up VE5Wviv1qa 9CZZP QIe55t4viG mAse6 gXSZedcXmh 5Ge6D IGAkH3BdVB E8Jp6 8o4tMSNVbg kfOKU GxGXot9l4o 6zKj2 RLIl+HmZFe VmoR3 vF0tVKHB90 IPM/p j/YE+pU3HC n1Zb+ um2yxJWUZX wLDM1 6Y6rmSo6Gv /Cb8Q k+wSlzWdRr xdFqz VMOpqEYL72 5ILuT o0sE4pC/Wk K3nZi UbzI62BNta OFRJj hQjMBEtPVo FsZ/g 5Ya79p1uAN 1yxvs +kUcgS8Ls6 sY5sK vQgmX6QMdw RyE3i GNSoK4+Vld vSzgU kLPNo4ttcN G4vTT LSp0QS7qw9 Wktc9 g2hxy8qUoc yjGxr EwI01+boAI s6PZW 8tK+lNFyjT Jf4PB G5Sdm58nET EYq7L g1+1tlNYs0 aGoD1 Lkc3u3GLsl cncvK moZc4/Vqbr Md+Or cdkyOLk3Ae 4bXJE qiFUoxHYnw bWEGq DCTIZ1ySnl y6LZh UhV0TNwag4 P9eGu h04douFXt9 s2Kc6 F9OLrKvGkF 9LpSt bbe0f78WvO tQU+u vtsKX7dyae BTvHr aUFjaG46Uv UkSws uZEw4b7b3R kG+Wa u+l4SAXyqt Tcutj XkY+fl2PdU CLOnK UzUn+c/zFG iruu4 OWwHBTsde5 zL5Fs w6ipJmpMb8 2aE/R lfh1D43+Vj Sa7no R2Qm3vj3ZS Spt30 C8De8vfoO2 tWxTL S8zVboIocr em5on QTQNwfQ0sN uNynb kQbwMgMOhQ lFRLG bTn2YxbjG3 SNOod CAXo3K9L7s mBCMT 1nZd6XBFLT kcxhA SXfsrYjUbE IU5H8 f+cnJlL/T7 FqU8V Cyw9xmgIDM SZeJf ZUmedEIQXX Sindy+F 1xvPBoTbS8 0+yl/ HlYh5r4fBC LDKdk gXDthu/6VR lKrq+ hsUoYa2Mvg ufV1P y+bNdGubvL Y9GUC TWpJq+aRvR Cp/SP mljW0U+I10 YZgTb AswHjFJv7H GVTYv F3tg3dEFd7 BXS4X YWILV54o+s stY7s i8xTjCm9Qe /QWof 3vGgCNV6LU 6o64i lJD6fD0nk4 hFLjT joI5GP1A9+ 8Mrcl 5LxB68UACK /U5CV uqzKW10rC1 S6xIq 9axB4dNET+ 50FN9 bT8Tvt2Zse tt/Vw dYWY4yRbeW jpVtW E9e1DbEjb7 ru7X7 GaO1JgnqHK /0D88 bkh4hTQmWJ QJ1qT +2EXgnvaER 8AQ0A voWz2AT5om 3AnAG P1eenjr3vZ ReAvh +5kHvQjoVo 5s0bp Jfnj6vHarx ssnxg uHVQDHLdRw F6k/y h6dZpb4Mi/ KVYFn sZTJPsyBdb Nish+c 3ZUMI6mi8I RfkCr LbT9+jHoRl hXhRi NqR4/10suc CuPin ugB9pXMVhB d+9Gb o3pnf4NoUD 1Upwj xPCRVJulf0r byaWUY1E46 H4b6u jWjXY0EsSx g5Jwk Uaq37J+ON2 NHpUT wlMq1PwP42 EfloN De8ZRn0gQb T3MHh 3r+l2r4FOo npWRv 3AUDJyVlJd p5V9/ 6Ll41Dm/c1 uY/R5 4OUD2lAnx1 H8H/d 2kggANJ9az 3RyZW KbAuVhMQ2d agoxM hLuLJ0ulif 8PD4+ XtZiRD9iin o5IDA yr7UuGdh6D 0Rlc3 PtDHT3EULg Uj4+C yAaGW1nswm zNyAw YC9dfqu6HY 9EWzI 6FDGfYq3FG VogMz UyHME8KW47 bGxdP m8OHN2qh2K qCjM4 TGGlg7HsWb w8L0R bMjYgMCBSL 1hZWi ZcGcD4RJJg bnVsb F0+PgplbmR vYmoK MzkgMCBvYm oKPDw vRFsyNiAwI FIvWF qhAMN7PHWs NCBud WxsXT4+CmV uZG9i yxa0IAWjXC 9iago 8DK7BXoA7H DAgUi 9YWVogMzYg MzgzI U47xFbcKv8 KZW5k v1LqZaCeAW Agb2J vWsf1S7IvY jcgMC OSY6mQIfT4 MyA0N DYgbnVsbF0 +Pgpl bmRvYmoKND IgMCB vYmoKPDwvR FsyNy AwIFIvWFla IDM2I VS1RmYtaSq sXT4+ GiKzXN0lep o0MyA eXP5ixmw7R C9EWz N7EVNxUw0T WVogM zYgNDQwIG5 1bGxd Wi2FEG3nc1 JqCjQ 5CSUjx5GfC jw8L0 RbMjcgMCBS L1hZW iAzNiAzODM gbnVs bF0+Pgplbm RvYmo KNDUgMCBvY moKPD wvRFsyNiAw IFIvW UfgZBW0IWG xNCBu dWxsXT4+Cm VuZG9 bhsr7OqBnJ G9iag b4XA0ISvU0 IDAgU o6IAAasLdX gNDAz OV76jUrwIn 4KZW5 jg6KkRrM4Y DAgb2 AnOvy3I0Xc MjYgM IIGP8nQXkF zNiAy MjMgbnVsbF 0+Pgp lbmRvYmoKN DggMC BvYmoKPDwv RFsxO SAwIFIvWFl aIDM2 IDQwNSBudW xsXT4 +FaJdUA8kf go0OS QzWI5wdrt8 PC9EW mA0WVZaRz0 YWVog GBJtCBQ6VJ 51bGx pHh5ATY0vr 2JqCj GpFXSxt7Tm Cjw8L 0RbMjcgMCB SL1hZ UbU7OkG4QJ cgbnV sbF0+Pgplb mRvYm oKNTEgMCBv YmoKP DwvRFsyNyA wIFIv XZewKMA1IE YwOSB udWxsXT4+C mVuZG 7mnjl1IbRe IG9ia ke5KB2DRxA 2IDAg Jq5TSAtsFf YgNjg wWJ51mExyX j4KZW 1vt4HvDaIz IDAgb 1JwQlu0Q9A bMjYg LEOTA0nJGm AzNiA zOTEgbnVsb F0+Pg plbmRvYmoK NTQgM CBvYmoKPDw vRFsy NiAwIFIvWF laIDM 0GMO2ALZyp WxsXT 4+VbXpSJ0m ago1N KOqGQ7kbue 8PC9E IzG3HKHkEc 9YWVo gMzYgNDAyI G51bG lwDh0KSS7t b2JqC eE7CNUub6K qCjw8 I5NkWLruNW BSL1h HIrFoDiY8N TAgbn VsbF0+Pgpl bmRvY moKNTcgMCB vYmoK PDwvRFsyNi AwIFI aCMgyKMH4R DY4MC BudWxsXT4+ CmVuZ C3nvxj9JYW wIG9i xas5TM8NDi I3IDA wIs0TSHsuM zYgNj N6HB17kXod Pj4KZ N0dx2QaPvY 5IDAg u9EfAvb5Z3 RbMTk hZHCBS9kTZ iAzNi U3BFjifhNj bF0+P gplbmRvYmo KNjAg MCBvYmoKPD wvRFs yNyAwIFIvW FlaID I8EAA3THUi dWxsX T4+CmVuZG9 iago2 UJWxXJ0fjc o8PC9 RHnD6LWFtM i9YWV ogMzYgNjgw IG51b NlrPr5DZJ4 kb2Jq CjYyIDAgb2 JqCjw 4Y7BeHxSeJ CBSL1 iAXlZ5DnA3 Nzggb nVsbF0+Pgp lbmRv YmoKNjMgMC BvYmo KPDwvRFsxO SAwIF IvWFlaIDM2 IDMzM SBudWxsXT4 +CmVu JW2nynn2UG AwIG9 jemi5AK4AA zI3ID ZhUy7IZRmb MzYgN pE9AJ39zTh dPj4K QU4mq6ImGn Y1IDA my0KaJxr0Z 0RbMj FkBCGOU3xI WiAzN kI0AHZuloS sbF0+ PgplbmRvYm oKNjY gMCBvYmoKP DwvRF syNiAwIFIv WFlaI DM5PUJfJBY udWxs XT4+CmVuZG 9iago 2OkCbMC2kk go8PC 4IXeD8IQFa Ui9YW VogMzYgNDA 1IG51 gEdhJn8WAS 5kb2J qWfG0FSAur 2JqCj r1Q2AzYnPh MCBSL 1hZWiAzNiA 0MTQg bnVsbF0+Pg plbmR vYmoKNjkgM CBvYm oKPDwvRFsy NiAwI FIvWFlaIDM 2IDQx NCBudWxsXT 4+CmV dVD4ddjy8M CAwIG 7mdeh0MM8C WzI2I KScAt9CMLn gNDMg FYH4TO94rV xdPj4 BXI4ih4ZpM jcxID Jwh5KyQup4 L0RbM cMgQVKSM4s ZWiAz QzT8QZCpon VsbF0 +PgplbmRvY moKNz IgMCBvYmoK PDwvR FsyNyAwIFI vWFla QZS8WIRdXZ BudWx sXT4+CmVuZ G9iag s0EpLvCR8c ago8P C6EWrG7NPH gUi9Y WVogMzYgMz kxIG5 6mBetNc3ON W5kb2 BeCbw3CXOo b2JqC fm7K6JuUiP gMCBS M8pSFePgCw A0MTQ gbnVsbF0+P gplbm RvYmoKNzUg MCBvY moKPDwvRFs yNiAw IFIvWFlaID M2IDM 5MSBudWxsX T4+Cm TxRX5iagf1 NiAwI T2whql5UH9 EWzE5 RRFvEn9TMH ogMzY aHBApIV39x GxdPj 3VHI6as2Wp CjM2I JGkl5QaHcw 8L05h bWVzWyhfOT U0NDA wYTYtYWVkN C00Nz Y3TTS9ONEd ZmZiN CFqDEP9WCj kKSAz NyAwIFIoX2 U4NjR oZftaIBN1I jUtND w9AT8qQugg LWViY ifmEAt2TDO 0NSkg MzggMCBSKF 81OTE qAhJ7Iw3tN WFjLT QxYjMtYWQ1 Ny1mZ rK3IqYgXHE hYzMp GLN9YBUeWb hfZGM 2X0X0LYibE TJlYi 00ZDYzLWEz MzgtN TljNGNhZDI 4YmY1 OOH0CJJmLL IoXzA yBcF1IEA2K TVjMz IoTYo1VI5s NmJjL WFjZDNiNTJ mNjcy OSkgNDEgMC BSKF9 sUsp7KFYoP y0wYj VkLTRmNDYt YTQyO V13UFLnVOG 4NmNj ZmUpIDQyID AgUih fMzExNTEyM TAtZD p3AV81PoBl LTk2O DMtODJmODA wOTI1 YaFxJKN0Jv AwIFI xUyQ8EfYXB TFBLT P8AFAqHLRt My1CQ TkyLTkyNUY 0NzYx MTZGQykgND QgMCB SWH8oERj4N WE0ZC 05ZWYxLTQw MDgtY BVjDT0qELQ 1N2Rj NjVjOTApID Q1IDA bOhmxQ0D4H mE2Zj WsXMNhZq76 YTE0L TljZTEtZmJ hZWM2 XEQrVro0ZO A0NiA wIFIoXzNlN 2VjMD RoWUS6Bqiz NGQ4M M25OnVpHUZ jNGFl NmMzNmFiMi kgNDc qSJRCJP9gS WFiYT U9Re9lGeP9 LTQxZ DktYjZjNS0 1ZDk3 ZJX4LhL0V1 UpIDQ 4IDAgUihfM WQyMm NhZmMtZGI3 Ny00Z VozBUP2FpC tZTI2 KtGqZBQ7WX I2KSA 0OSAwIFIoX zM3Yj JlMWFiLTJm MmYtN OJ0LY7rLZA 0LTk4 XiM7ELGxZq lmYik gNTAgMCBSK F80ZD G4VeG5TW6v ODcyL RT5KyVyBNL jMS01 NVUbCXH1GK M4NjA pIDUxIDAgU ihfOW RlZDViZWMt MzdhO N85AmKdOEZ mZTQt MWJjOGUxOD E3ODg 5ITY1QuYtJ FIoX2 NcYOn7FnVr LTIxZ TUtNDFiYy1 iODQ5 CEgeXuO9Mw BhOTd kZCkgNTMgM CBSKF 9yOxXtPQI4 MS04N wbnGAB0LsJ tYWNj HU9sMmM8Nm QwZTZ mDTMvKWJ2I DAgUi ipFlK8UGli NDYtY lRjOq27KlP 5LWI1 ZjktYzhlMm Y3OWM kWqfzVLS9R SAwIF IoZmFmMjQ5 MDctM 3KpNg16MBY zLWE2 HpXkDgZ9JX RiYTk 7FbToOKM0X iAwIF IoXzkzOGYw MjVkL TRjZDItNDU 5Ny05 YTAyLThmNT JhMGN hZNL2QndoN TcgMC RPSU6dXTC1 MzU4O I5eGQKvIXZ hY2Mt KIWkVZ9eBh U3MGI zNTZmNzcpI DU4ID OdOihZQ51X LSBEa LXudJLwL9Q gU3Vt bWFyeSkgNT kgMCB ILQ78YOA9P zkzYy 0bOLyaRZT9 YmUtO RG0Yc1wXLZ yY2Iw MTIzYjMpID YwIDA gUihfNWRmZ DE5ZW SfCHFiDI27 OGI4L Yh0XGFtHHZ yMzA4 WGFhZkN5BT A2MSA dYGAvQty9M zdhYj AhVBO3ZsPg NDA2Y v8gSpZ7VHF wZDY5 FqA3Tyl8Vj kgNjI uXCCGJF86Q GEyYW FmDp0pYUGn LTQ3O AUvTiY6NS1 2ODRj NmUyMWZiZW EpIDY zIDAgUihfN jkzM2 MyYTYtNjQ5 NS00Z PO9MYflGCI tYzEw OJO5JgP0HC MzKSA 2NCAwIFIoX zlhOW YwNjAwLTg3 ODQtN MW2Qu0iIdX wLTM0 EYLvRDk7Gy EwMik gNjUgMCBSK F81NG PdLRTmJI8u NzZmL TQxODQtOWV hOS1k WzZ1ZiBeJI NmZDc lJEP8ATBaF ihfND FlODgxYWUt ODBhM c80QPUxASR hMzAt L1HnA4SeOR g4NWY oLXE5ZkEsX FIoX2 UzYTJiMGMz LTgzM 1GqQUU4MR4 4YTNh TGL1UpC9K6 Y2OWU xNykgNjggM CBSKF 34RuWfYDU2 NC1iM jYwLTRmNzk tODBi DT8lGuV0HX RmMGY 9JfVmZYK1W DAgUi bnG9LaJcXk YTgtO OUqRY19EiW iLThl MGQtNDNhNm Y4MmQ cLTHzZSX7O CAwIF AcJ4VcLNZ1 ZWViL LT0DUYoHIH lYy04 Z0R4GJA5Jt BmNDl uOZM4AQrqS zEgMC YCLD04NHz5 Yjk4M Q69IYiqKOX 4Nzkt IZG9KC9nB4 EyOTQ 4YjAwMjIpI DcyID AgUihfNWU4 NDhlN 3YkGmPoAn4 0NDVk LThjZTMtNj U3YTU tAkk6MlOvQ SA3My RaDGYfX2T2 OTIzM wYcDBB2Y9D tNDIy DT7oGWTqNN FmZTU yMTEzNDAwZ CkgNz QqQAMCDZ51 NzI5M RH3MR8bQjS kLTRk OTItODVmMS 1hOWY zNmQyYmRmM GMpID r0NKHqBjwc MjM3Z VRqAu7xIOT hLTQ1 GLMsXQY4El 05Yzc 5SoFsCyT1M 2MpID t5SFBeVw6+ Pgplb mRvYmoKMTQ gMCBv YmoKPDwvRG VzdCh HY46TXQFUp XNjaG DoA3JeS5Tw bWFye SkvUGFyZW5 0IDEw QTPjDu0KoD RsZTx xZNIcGNR2I DAwNj kwMDczMDA2 MzAwN jgwMDYxMDA 3MjAw WesaOGC9ET AyMDA zXFEvSHh5R DA2ZD AwNmQwMDYx MDA3M jAwNzk+Pj4 KZW5k j3IsPoy7KY Agb2J bGqq6U42gG ERhdG UoRDoyMDIw MDUyM pL2BcNhXb7 wNCcw FLojN3JvOY F0aW9 tORD5LRsDV jIwMj AwNTIzMTQy MTI3K l84RrGhLtj vUHJv ZHVjZXIoSW JleCB VNMJrH2MrK XRvci X1JrpoJS6l NS84N PX1OAiVYDJ BXVAv MlgktE0iqV ZpZWQ gdXNpbmcga VRleH PjFu2qDctw YnkgM VQzWFQpPj4 KZW5k e1CwJoqfMJ YKMCA 3OAowMDAwM DAwMD ZwKJM2DBZ6 IGYgC jAwMDAwMDA wMTUg MDAwMDAgbi AKMDA wMDAwMDEwM yAwMD AwMCBuIAow MDAwM AMvNXa1KMP wMDAw CD5sPiBkNS AwMDA zMTUgMDAwM DAgbi AKMDAwMDAw MDM5M SAwMDAwMCB uIAow MDAwMDAwNT I3IDA qQPEbMO2wA jAwMD JoDGR6SAOa MDAwM DAgbiAKMDA wMDAw MDczOCAwMD AwMCB uIAowMDAwM DI5ND gzIDAwMDAw IG4gC jAwMDAwMDA 5MTkg MDAwMDAgbi AKMDA gRKEjRFi1V CAwMD AwMCBuIAow MDAwM PY2TKQqUDL wMDAw KT7nLpZkMS AwMDg 1MTcgMDAwM DAgbi AKMDAwMDAz MzI0O SAwMDAwMCB uIAow MDAwMDAwOT czIDA aURRxCM3iB jAwMD AwMDEwMDgg MDAwM DAgbiAKMDA wMDAw KxT4PgVdRJ AwMCB uIAowMDAwM DAzOD YwIDAwMDAw IG4gC jAwMDAwMDg xNjgg MDAwMDAgbi AKMDA xNASuVGd8P yAwMD AwMCBuIAow MDAwM HY2VQh9ZRM wMDAw DY7aXmNmBQ AwMTI 0ODAgMDAwM DAgbi AKMDAwMDAx MjI3N CAwMDAwMCB uIAow MDAwMDEyMz czIDA fBQQoES4wQ jAwMD AwMTIxNzMg MDAwM DAgbiAKMDA wMDAx QqI1SEOoKD AwMCB uIAowMDAwM DI2NT UxIDAwMDAw IG4gC jAwMDAwMTI 1ODQg MDAwMDAgbi AKMDA bPSKgTwl4Z yAwMD AwMCBuIAow MDAwM YE4ByLcEKK wMDAw JT0vJnFnBM AwMTc 0MTIgMDAwM DAgbi AKMDAwMDAy MjA2M CAwMDAwMCB uIAow MDAwMDIyMj QzIDA cHYBgJS3sR jAwMD AwMjcxNzcg MDAwM DAgbiAKMDA wMDAy Wmo7YXTqGV AwMCB uIAowMDAwM DMxMz o7HHDlKFFf IG4gC jAwMDAwMjk 1MTYg MDAwMDAgbi AKMDA uOCTpRVT1J yAwMD AwMCBuIAow MDAwM BA9VwSaMAB wMDAw LC3aDjBlQF AwMjk 2NTcgMDAwM DAgbi AKMDAwMDAy OTcwN CAwMDAwMCB uIAow GQGnGFV2Gs UxIDA mMNKaAW0pP jAwMD FmXdn4HQky MDAwM DAgbiAKMDA wMDAy LGu1TSZvNK AwMCB uIAowMDAwM DI5OD kyIDAwMDAw IG4gC jAwMDAwMjk 5Mzkg MDAwMDAgbi AKMDA lANYiKGl9P iAwMD AwMCBuIAow MDAwM DMwMDMzIDA wMDAw FG8aQkPiNQ AwMzA wODAgMDAwM DAgbi AKMDAwMDAz MDEyN yAwMDAwMCB uIAow MDAwMDMwMT c0IDA xBGHmIL8vR jAwMD AwMzAyMjEg MDAwM DAgbiAKMDA wMDAz KSQ3LTFcVY AwMCB uIAowMDAwM DMwMz U1VBQhRLSu IG4gC jAwMDAwMzA zNjIg MDAwMDAgbi AKMDA wMDAzMDQwO SAwMD AwMCBuIAow MDAwM YMyUHS9GFL wMDAw OM4zZbZcNE AwMzA 1MDMgMDAwM DAgbi AKMDAwMDAz MDU1M CAwMDAwMCB uIAow MDAwMDMwNT k3IDA xFWTjDI2oX jAwMD VdVmW2RCNm MDAwM DAgbiAKMDA wMDAz XCH8ZQPsAG AwMCB uIAowMDAwM DMwNz N7ZQNxOSQj IG4gC jAwMDAwMzA 3ODUg MDAwMDAgbi AKMDA wMDAzMDgzM iAwMD AwMCBuIAow MDAwM SGfYHh7AMT wMDAw TF3jQvKdFQ AwMzA 5MjYgMDAwM DAgbi AKMDAwMDAz MDk3M yAwMDAwMCB uIAow MDAwMDMxMD IwIDA aMGMlIO9mI jAwMD AwMzEwNjcg MDAwM DAgbiAKMDA wMDAz MTExNCAwMD AwMCB uIAowMDAwM DMxMT YxIDAwMDAw IG4gC jAwMDAwMzE yMDgg MDAwMDAgbi AKMDA sIENwUZC1Y SAwMD AwMCBuIAow MDAwM DMxMzAyIDA wMDAw KA3lJiZeFR AwMzE zNDkgMDAwM DAgbi AKMDAwMDAz MzM5N CAwMDAwMCB uIAp0 cmFpbGVyCj w8L0l tUc4mSlxpJ CBSL0 lMWRh5DXrp MjEyZ jBiNTlhOGN iYjAx ALX6WRM8KL JiZDl mMGQ+PGUzN jhiYT QkFDM6MXPh MmE1Z GJiNjNkZjM xMjQ4 WSZgWi0vWa 9vdCA 8FSUaVk5Bc XplID f8Tj5Pz7Ag cnR4c mVmCjMzNTc 0CiUl RU9GCg== ID Date Data Source {[id number] 02/22/2020 12:18:00 PM EDT [facility] [id number]} [facility] Patient: MARIELA ROME Age: 69 years [...] 2 mL, IV, Once, PRN: Elevated Heart [id number] wi th 0.45% NaCl 1,000 mL: 50 mL/hr, IV Infusion, Stop: 03/22/20 16:20:00 EDTNit ro-Dur: 0.6 mg, 1 patch(es), TD, DailyProtonix IV: 40 mg, IV, [id number] Flush 0.9%: 5 mL, IV, DailySaline Flush 0.9%: 5 mL, IV, q12hr, PRN: Otherheparin : 5,000 unit, 1 mL, Subcutaneous, [id number] MedicationsDocumentedDilt iazem Hydrochloride ER 360 mg/24 hours [...] br/min (FEBRUARY 21 05:50)SBP 111 mmHg (FEBRUARY 21 10:44)DBP 72 mmHg (FEBRUARY 21 10:44)SpO2 100 % (FEBRUARY 21 10:44) Past Medical Hi story/Problems: All ProblemsAngina pectoris / [id number] / ConfirmedAnxiety / [id number] / ConfirmedAsthma / [id number] / ConfirmedChest pain / 68506880 / Confirm edShortness of breath / 102422152 / ConfirmedPre-operative cardiovascular ex amination / Z01.810 / ConfirmedAcid reflux / 602032478 / ConfirmedHyperlipidemia / [phone] / ConfirmedHypertension / [id number] / ConfirmedObstructive sleep apnea / [phone] / Confirmed. Procedure history: EGD - SN (None) on 02/15/2020 at 69 Years.Comme nts:02/15/2020 14:56 GALT - Perfecto Del Angel RN-populated from documented surgical caseEGD - SN (None) on 12/02/2018 at 68 Years.Comments:12/02/2018 18:54 ELIESER Isaacs RN, Kiersten Walter-populated from documented surgical casethyroid nodule r emoved.. Social History Social and Psychosocial FtpqmlAseyndw57/28/2020 Lema s the patient smoked? Never smoker Concerns about tobacco use in household: No2019 Has the patient smoked? Never smoker Concerns about tobacco use in household: No02/13/2020 Has the patient smoked? Never smoker Concerns about tobacco use in ho usehold: No02/20/2020 Has the patient smoked? Never smoker Concerns about tob acco use in household: NoBlood Quknnwagzn29/28/2020 Blood Management L evel Accepts blood02/06/2020 Blood [...] 45.6 % LOW Lymph Auto 37.0 % Preble Auto 13.0 % HI Eos Auto 3.8 % Baso Auto 0.6 % Neut Absolute 2.3 x10(3)/mcL Lymph Absolute 1.9 x10(3)/mcL [place] Absolute 0.7 x10(3)/mcL Eos Absolute 0.2 x10(3)/mcL [...] Auto 55.1 % Lymph Auto 30.3 % Preble Auto 10.8 % Eos Auto 3.2 % Baso Auto 0.6 % Neut Absolute 3.0 x10(3)/mcL Lymph Absolute 1.7 x10(3)/mcL [place] Absolute 0 .6 x10(3)/mcL Eos Absolute 0.2 [...] COVID-19 Interp Rapid COVID-19 Interp COVID Source [employer] Swab 02/20/2020 1 6:58 EDT WBC 7.1 x10(3)/mcL RBC 5.11 x10(6)/mcL Hgb 12.1 gm/dL Hct 37.8 % MCV 74 fL LOW MCH 23.6 pg LOW MCHC 31.9 gm/dL LOW RDW 19.3 % HI Platelet 315 x10(3)/mcL MPV 7.8 fL LOW Neut Auto 57.9 % Lymph Auto 28.4 % Preble Auto 9.7 % E os Auto 2.4 % Baso Auto 1.6 % Neut Absolute 4.1 x10(3)/mcL Lymph Absolute 2.0 x10(3)/mcL [place] Absolute 0.7 x10(3)/mcL Eos Absolute 0.2 x10(3)/mcL [...] 49.6 % LOW Lymph Auto 32.5 % Preble Auto 12.8 % HI Eos Auto 4.4 % Baso Auto 0 .7 % Neut Absolute 2.9 x10(3)/mcL Lymph Absolute 1.9 x10(3)/mcL [place] Absolute 0 .7 x10(3)/mcL Eos Absolute 0.3 [...] 57.0 % Lymph Au to 27.5 % Preble Auto 10.6 % Eos Auto 4.2 % Baso Auto 0.7 % Neut Absolute 2.9 x10 (3)/mcL Lymph Absolute 1.4 x10(3)/mcL [place] Absolute 0.5 x10(3)/mcL Eos Absolute 0. 2 [...] Auto 56.5 % Lymph Auto 28.7 % Preble Aut o 10.5 % Eos Auto 3.4 % Baso Auto 0.9 % Neut Absolute 3.1 x10(3)/mcL Lymph Abs olute 1.6 x10(3)/mcL [place] Absolute 0.6 x10(3)/mcL Eos Absolute 0.2 x10(3)/mcL [...] Auto 68.6 % Lymph Auto 20.5 % Preble Auto 8.6 % Eos Auto 1.6 % Baso Auto 0.7 % Neut Absolute 4.7 x10(3)/mcL Lymph Absolute 1.4 x10(3 )/mcL [place] Absolute 0.6 x10(3)/mcL Eos Absolute 0.1 x10(3)/mcL [...] Screen Completed N/A 02/15/2020 6:26 EDT UA [place] r Yellow UA Appear Clear UA pH [...] LOW sO2m [place] 97 % vol HI [employer] Line Server Name: KATIA Draw Date: [id number] Draw Time: 519 Analyzed Date 02/15/2020 Analyzed Time 52702/15/2020 4:34 EDT Rapid COVID-19 Negative Rapid COVID-19 Interp Rapid CO VID-19 Interp COVID Source [employer] Swab 02/15/2020 4:05 EDT WBC 9.6 x10(3)/mcL RBC 5.13 x1 0(6)/mcL Hgb 12.2 gm/dL Hct 38.8 % MCV 76 fL LOW MCH 23.8 pg LOW MCHC 31.5 gm/ dL LOW RDW 18.9 % HI Platelet 362 x10(3)/mcL MPV 7.4 fL LOW Neut Auto 70.8 % Lymph Auto 18.7 % Preble Auto 8.5 % Eos Auto 0.5 % Baso Auto 1.5 % Neut Absolute 6.8 x10(3)/mcL Lymph Absolute 1.8 x10(3)/mcL [place] Absolute 0.8 x10(3)/mcL Eos Absolute 0.0 x10(3)/mcL [...] Auto 68.6 % Lymph Auto 20.8 % Preble Auto 8.9 % E os Auto 0.9 % Baso Auto 0.8 % Neut Absolute 6.3 x10(3)/mcL Lymph Absolute 1.9 x10(3)/mcL [place] Absolute 0.8 x10(3)/mcL Eos Absolute 0.1 x10(3)/mcL [...] 65.5 % Lymph Au to 22.5 % Preble Auto 10.3 % Eos Auto 0.9 % Baso Auto 0.8 % Neut Absolute 4.7 x10 (3)/mcL Lymph Absolute 1.6 x10(3)/mcL [place] Absolute 0.7 x10(3)/mcL Eos Absolute 0. 1 [...] Auto 68.7 % Lymph Auto 22.9 % Preble Auto 7.0 % Eos Auto 0 .8 % Baso Auto 0.6 % Neut Absolute 6.7 x10(3)/mcL Lymph Absolute 2.2 x10(3)/mc L Preble Absolute 0.7 x10(3)/mcL Eos Absolute 0.1 x10(3)/mcL [...] Auto 71.5 % Lymph Auto 19.6 % Preble Auto 6.7 % Eos Auto 0.7 % Baso Auto 1.5 % Neut Absolute 8.5 x10(3)/mcL HI Lymph Absolute 2.3 x 10(3)/mcL Pre[place] Absolute 0.8 x10(3)/mcL Eos Absolute 0.1 x10(3)/mcL [...] Witt pt gave verbal consent -----Laurence Witt[address] [place] [address] [id number] d [facility] LEAD[facility]ET[facility] [id number] DONEcons doneR13.10Dysphagia, unspecifie d0.000.00 Name Value Range Interpretation Code Description Data Mariana rce(s) Supporting Document(s ) ID Date Data Source [id number] 02/22/2020 07:31:00 AM EDT [facility] Name Value Range Interpretation Description Data Sup porting Code Source(s) Document(s ) Neut Auto 45.6 % 50.0-80.0 LO [facility] Lymph Auto 37.0 % 14.0-44.0 NO [facility] Preble Auto 13.0 % 0.0-12.0 HI [facility] Eos Auto 3.8 % 0.0-7.0 NO [facility] Baso Auto 0.6 % 0.0-3.0 NO [facility] Neut 2.3 2.0-8.4 NO [facility] Absolute x10(3)/[facility] Lymph 1.9 0.6-4.8 NO [place] Absolute x10(3)/[facility] Preble 0.7 0.0-1.1 NO [place] Absolute x10(3)/[facility] Eos Absolute 0.2 0.0-0.5 NO [place] x10(3)/[facility] Baso 0.0 0.0-0.3 NO [place] Absolute x10(3)/[facility] ID Date Data Source [id number] 02/22/2020 07:31:00 AM EDT [facility] Name Value Range Interpretation Description Data Sup porting Code Source(s) Document(s ) WBC 5.0 4.0-10.5 NO [facility] x10(3)/[facility] RBC 4.55 3.80-5.20 NO [facility] x10(6)/[facility] Hgb 11.0 11.4-15.1 [facility] gm/dL [facility] Hct 34.5 % 36.0-46.0 [facility] MCV 76 fL 80-98 [facility] MCH 24.2 pg 26.0-34.0 [facility] MCHC 31.9 32.0-36.0 [facility] gm/dL [facility] RDW 19.3 % 11.0-15.0 [facility] Platelet 269 150-400 NO [facility] x10(3)/mc [facility] MPV 8.0 fL 8.5-13.0 [facility] ID Date Data Source [id number] 02/22/2020 07:28:00 AM EDT [facility] Added by Discern Rule GLB_ADD_GFR_BMP Name Value Range Interpretation Code Description Data Mariana rce(s) Supporting Document(s ) eGFR-AA >90 >=60 [facility] mL/min/1.[address] [place] [address] The MDRD 4-Variable IDMS traceable Equat ion for non- individuals is used to calculate the estimated glomerul ar filtration rate (GFR). To estimate the GFR for Americans, multiply [facility] result by 1.16. The MDRD [...] 60-89 Mild decrease*G3a 45-59 Mild to moderate yoapidwnS5z 30-44 Moderate to severe decreaseG4 15-29 Severe decreaseG5 14 or less Kidney failure eGFR-SUDHIR >90 mL/min/1.73m2 >=60 NO [facility] The MDRD 4-Variable IDMS traceable Equat ion for non- individuals is used to calculate the estimated glomerul ar filtration rate (GFR). To estimate the GFR for Americans, multiply the [facility] GFR result by 1.16. The MDRD [...] 60-89 Mild decrease*G3a 45-59 Mild to moderate godccuofW2r 30-44 Moderate to severe decreaseG4 15-29 Severe decreaseG5 14 or less Kidney failure ID Date Data Source [id number] 02/22/2020 07:28:00 AM EDT [facility] Name Value Range Interpretation Description Data Sup porting Code Source(s) Document(s ) Glucose Lvl 93 mg/dL 65-99 NO [facility] BUN <1.0 6.0-20.0 [facility] mg/dL [facility] Creatinine 0.53 0.40-1.0 [facility] mg/dL 0 [facility] BUN/Creat 0.5 7.0-29.0 [facility] Ratio ratio [facility] Sodium Lvl 140 136-145 [place] [facility] mmol/L [facility] Potassium Lvl 4.2 3.5-5.1 [place] [facility] mmol/L [facility] Chloride 110 98-107 [place] [facility] mmol/L [facility] CO2 24 23-29 [facility] mmol/L [facility] AGAP 6 5-15 [facility] [place] [facility] Calcium Lvl 8.9 8.6-10.0 [facility] mg/dL [facility] ID Date Data Source [id number] 02/21/2020 12:30:00 PM EDT Luke Bainjo ann [facility] Name Value Range Interpretation Code Description Data Supporting Source(s) Document(s ) Physician Luke CQEOCe2oCh QKJeL [facility]ly [facility], [facility] - [id number] G9iag Arturo [id number] eXBlL Brothers 5U5oILrT1W 5cGUv Medical Fy1cuE8RSP NlRm9 Center mlR1VVYi0O XRpY2 XsHR4lw8Cg bmcvV 3irDJ4bhXF uY29k vY7eXy0IDQ 5kb2J qCjIgMCBvY moKPD wvRmlsdGVy L0ZsY UFnMMUyw7Q lL0xl gge0zWSfSV 4+c3R yZWFtCnicK +QCAA PbOTeZMV1c c3RyZ WFtCmVuZG9 iagoz NAOco8LuSw w8L0Z geRYgcw8St GF0ZU NcS34nAV7A ZW5nd GggNzA+PnN 0cmVh jOn9eXTK1M rk0o/ INFYwNFAIS eNyCu EyVDAAQkMF I1MLP XNTBQtDPQs jhZBc Ev5KoCAXOC OF/DQ KB49JKD7MS K5ALg G0OV4AIgIb ZHN0c mVhbQplbmR vYmoK TTKgAV3uxt o8PC9 IlMf1DXMiA mxhdG VEZWNvZGUv TGVuZ 2GvSVUuSv9 zdHJl NH0BxTcs9L IAAO4 AfAplbmRzd HJlYW 3KKV6dl7Sj CjUgM CBvYmoKPDw vRmls jPCpQ0QvXD RlRGV xv4CgW3iwf md0aC A3MD4+c3Ry ZWFtC nicUwjkKuT Sj8g0 SkO3UWvP88 IK4TJ UMABCQwUjU ws9c1 BXQ6B4PlGM kFwuj LEZ2IGIG4V 8NAUT zZAsLtcQrk AuALT oUqBTMU9mb 3RyZW HnHyYxPG4i ago2I IQqm3PeVde 8L0Zp zFWgbu9PnD F0ZUR kJ83zUT6QX W5ndG ggMTA+PnN0 cmVhb Hh7eRtmQvK A7gB8 EmUsWPS8hs VhbQp lbmRvYmoKN yAwIG 5bukv6YM2M aWx0Z XIvRmxhdGV EZWNv ZGUvTGVuZ3 RoIDc dYh5zeRIvK W0KeJ dNWSIi1WVY yDRUM DRQCEnjcgr hMlQw AEJDBSNTCz 1zUwU RHn9LJ6LNO C6NgM Y7ICJiedy7 BRPNk Lji8lHePX5 AtJcN 0wplbmRzdH JlYW0 LLZ6hn6AqI jggMC BvYmoKPDwv Rmlsd NKjA2LwIFG lRGVj p7WvB4lsyk d0aCA xMD4+c3RyZ WFtCn icK+QCAADu AHwKZ J5po3RhFLP tCmVu ZE6oalv3DO Agb2J uUhj2T4Sez HRlci 5VvJT2DUVi Y29kZ Y8ZEG2fnVy gNjk+ EbL3iyQwlU p4nFM T1Txi0y/IN FAwNF AISeNyCuEy VDAAQ gMDX5FATMZ TBQtD PQsjhZBcLo 2AxPR UoHh+moKJZ kgWl2 sIVyAXALRQ DdEKZ H2zb7CbITO tCmVu OA9bahqzTL AwIG9 ldii8XV0ME WdlTW 3wKS8Iu5GX b25lL 05hbWVzIDE xIDAg Fa3NfIDqX4 NhdGF ac9wiH7H9c GluZX MgMTIgMCBS L1BhZ 2VzIDEzIDA gUi9W rUB9JMJXvi VmZXJ lbmNlcyAxN CAwIF I+PgplbmRv YmoKM TMgMCBvYmo KPDwv O6srs4uzFR AwIFJ qI3H3oZAdN GFnZX NtA670jvQi NC9JV FhUKDIuMS4 3KT4+ EmQuRN5zwi oxMiA mKS0nngy8H C9Db3 JsxXPiK5Zm cnN0I KH9NCHtBz2 MYXN0 VCV2AIJsEq 4+CmV nDK9kcucxK yAwIG 1elrvwO4wY Q0Jhc 8ZcMRK3EGB gUl0K OP1pu7PoBi E4IDA cz1XeCsx6F 0ZpbH Lees0LyKU3 ZURlY 29xXK2ELS0 ndGgg BjX0Uu4RAA M+PnN 9pmFydVl4w J2Wd1 TD8QiOg654 vVCSE DbT0QopOtT IDb1I lJ3qIWlGKq CQACI 2RFRwRFGRp ggyKO WJl8AMrYQJ hQFRs esEGUTUcXA UG5ZJ MY1J89p267 2b3x/ 3fmufvc/dZ +991r oAkPyDBcJM WAmAD KFYFOHnxYi Ni2dg OeVI4XSDpV DgcLO sBxw0GxMCZ nzYjG yZE/gXvboO IPn7K tM/jMEA/5+ UuVki DUNGaHhm3m jZXBk FsMm2K7jxn 0/JmL E3Ay9gJh0p WYIyV gEj4yvfkZl ZZQ85 4xQOHFwTd3 7iZfD d7XqjkYxWb oyRYB oZ6iu3yAQ+ JmODd WvHKEHw5XF ZfE42 CXpM6R9sd5 NkbC1 oxjfafi9mk QDgSM ow5IVrIByF E8sPx u4QNl6HNRs IGSZc A2kYciTH2n /PTee LxcwwDjeNI +Ix2J kZWRzhcgBm z/xZF XqjWqDaJ7j 4OTgw uW2pdtgAj4 38m5L 3dpZehH/uG UQf+M R1W67UNTMz pmW12 fqHbWkVAF3 rAVC7 /IvQYT8Ppp K+dQ5 4eX20oS7Ab OIsZy vk4ZnmVqDp aykv6 O/6nw5/Q19 8z1K+ 3e/lYXjzkz iSdDF DXjduZnqmR MTIzu Jw+Pgnt5b2 Hwf+d Y9NVnyukxw vlEVE d1DDYLiPfM vIE4g FmUKGQPifm vgPw/ 4u3eiGpzk6 EdCWW AKlIRpAfh4 AKCoR YCg7EPhZ84 0Lxkc D+v0D5GhTc fvPgv 59V7hM/sgW JH+OY 9sKKmyTZt4 smvxa AjQgAEVAA+ pAG+g FY2RJndNTh AAP4A MCQSiIBHFg MeCCF JABRCAXFIC 1oBiU nt4oD7kCno ARNIM 3iHf8gRJuA DgHLo HLYATcAVIw Dp6AK fAKzEAQhIX IEBVS s3JsA2rrkq VYkBv kAwVDEVAcl AglQ0 XJOvGA64ZR qByqh dyfBpua9Wz 0GroA GKO2xNQyRp oVegc jMAmmwVqwE WwFs2 BPOAiOhBfB yfAyO D1blpmRsUL DfBDu hE/Dl+ARWA o/gac RgBAROqKLM BEWwk ZCkXgkCREh q5ASp AJpQNqQHqQ fuYpI kafIWxQGRU UxUEy UZ5tzSXMpu pahVq P8k9fUH0Su qD7UV tVpwuh2SD4 Ga6LN 4h6gXNIcAe mdiy5 JS2Bq7L2op +gR9D k0YGhXnLRR MY4Yf 0wcJhWzArM ZsxvT jjmFGcaMYa axWKw 94nsllu5Yv rBibD P5ElyCyuW4 BTuOf BNf0gCkahw fXDxO iCvEVeBacC dwV3A TyHo4Dn4Q3 4wPxf Pwy/Fl+EZ8 D34IP 46fISgTjAm uhEhC KmEtoZLQRj hLuEt 9KYHU1CxVg HCigL tQYDy2YClZ HCW+J LAKXcQ7TKS kIW0h 1AsgEt8buC CTyUZ eR8N4HDkmQ m4mny HpR97LbSuG KgQo8 TWNB0EybSt cUXim uQw7WPEOJO yYr1i heERxSPGpE l7JSI mtxFFapVSj dFTph sH6AuSZGdc UOUN5 n7XM7xOkXz QsxYj iQ+GNcvv3B GcoY1 GJvv5zT3oO ddRG6 slkVI7RW0S F0FJp njJsrRK7LH WKip1 LqUgdGp2Qw RUpHa Vm4NUu7jKv +mH6d er9GH7JC1F +6ibV NtUrqq/V5q h5qPH VKbQr3LiR0 qkz1H 8F06M0rJrv 39NAa ZhphGvkauz ROKvx wO4iuwrb7x ySOYf f4FhEIr73W zRXaO 4UHFGv9xJD 8tPK0 hlZJuP9EAw u7aGd qr1D+4T2pA 5Vx01 WjGGU12PEX 4YKw5 FIlcsq9IVx dDV1/ POwflQ2o6u zesZ6 MUvZsu338/ QJ+iz 9JP0d+r36U wY6Bi EGBQatBrcN 8YYsw jXTPIa4ds+ NjI1i nXWLqTb9Et YzDjD WA635zoyDU nE3WW bSYHLNFGPK Mk0z3 T578Ce6oeh LMasx QoRMyA5AHq a7zYc j2BAONeSOW osbTB JTe2nKhSZM WtItg w2QJgwxo2k ZWMVb bbPqt/pobW +dbt1 ofceGYhNoU 2jTY/ VpuZks41dM 9tpc8 lzfuavnds9 9bmdu z2znU4rEbb ofYr/ Bvtf+g4Ojg 8ihzW PO9hZf1vVV 8QaLx kckbIcup7V 7eTmt qjso1ExXkR nsfNj 1SqveP2zMo 8ujec bz+HKp4487 6rlyX QjyyZ9Sf4V 3vW5S z030sqjR+w MPfQ+ rD3XRmVvxJ 6rnQc 1bEfKaFk1T r9dsZ /SK8szozCn Pu8R7 0IfiE+VT7X PfV88 95prRi3sO4 m+F3y l/tH+Q/zb/ GwFaA hvY4hLbKRx AlYF9 QaSgBUHVQQ +CzYJ CtE6epPyjd PaQu/ WZ7qfyv9GI 0IDQ7 hX1etiMbpW 9H44J AkjrWX1AFF NRENG /gLpgyYKWB a8ivS PQTz8ImQUK onqjF mCKuyfkQ9r 4x5TH SGOtYlfGXo rTiBP Appsn58Trt +KnF/ jj9QsrMBH+ oTjh+ iLjRXmLLiz WWJy+ +PgSxSWcJU cS0Yk oiC7C2cips AbO9N ZRhaNHx3xa 7i7uE 54Hbwdvku/ KL+dP QJtweAi1Dk ZN3p4 8meKeUpHyV MAWVA uep/qn1qW+ TgtN2 5/3MA7mkS8 Dl5GY cVRIEaYJ+z K1M/M ix6HSw7jkq Mucl+ 1cNiUKEjVl Q9mLs opRCKwK5UY ERLJe BhdhtmFP8v Y3Ovd PavEtGX7ao dnyTc pr5p4cu58Q WsFd0 TzzO2T5KLR l58r6 MlVniao6S+ uvLlo 0zcFdmTG2s LVpa3 3kbS0hE1y6 LmZdT 8HK0RecapL +61uL GVuToVd6eS yo24j iPUj5pTdmh qpNH0 f4PUbSwAsg St9v5 m6++JXNV5V ffdqS tGWwzKFsz1 bMVuH N36gcws1iJ y7PLx /gJnS5jwdd R8mOl rjJ6OcZTHf Rt4uw A5RVLhrm1E 1lULW 42j56CtLTv VdNe6 2d9cue62r3 u6/s8 ojFWdbMN8y 3bq9g 7816v/rOBq OGin2 YcZo2PhKRK /Z/zf a1jGkjpxSw w37hf xnOlFV0hZ6 NzS2a LWWtcKukdf JgwsH L33h/093Gb Ktvp7 eXHgKHJIce f5v47 fAUXBf8h8H OtH1n +R6cZ3JftH PqXN4 58PHTSs6N2 x4+Gn r5k6ekl+N7 y+/3H 5M3SaOh9Dx ZCcKJ ohOfTuafnD 6Vder l8gVQN58Fm u+ciT 1zrS+8b/Bs 0Nnz5 7mMuwj88I8 53vX8 yKvIA36zXX 3suuR wqXPAfqDjB /sfOg YdBjuHHIe6 Lztd7 zixW1sfhsb V01e9 o654BgAe9c j8keH dNndq0xl6L b3Ju/ ikXnjq22md bs/cW XMXfbfkntK 9ivua 9xt+NP2xXe ogPT7 qPTrwYMGDO 2PcsS c/Zf/0frzo Iflhx EBPXIQa83a HJn0n Lz9e+Hj8Sd aTmaf FPyv/XPvM5 Nl3v3 h6TfNVRaE+ XPT80 6+bX6i/2P/ S7mXv dNj0/VcZr2 Zel7x Eg6YnFkbn/ 7uYdx Mzue+x7ys/ mH7o+ No38o1anE+ ffgP3 zTQ9DoOyDQ N0cmV hbQplbmRvY moKMT kgMCBvYmoK PDwvQ 45px9NJpBH jZS9E HKFoO8ABrc F5L0h laWdodCAyO S9TdW B0rHUgL7qa YWdlL 4SijMPzsd9 GbGF0 JQWbG60sOB 9UeXB sV6qAKgyyH 3QvV2 lkdGggMTgy L0xlb zn2jBBrJW0 CaXRz PBGhT03xrQ 9uZW5 0IDg+PnN0c mVhbQ f7lW8JLUSL AADCo L9kYtfiiUO AAAAA Fof5U7lHDi VuZHN 0cmVhbQplb mRvYm oKMjAgMCBv YmoKP ImaO01bl4N TcGFj ZVsvSUNDQm FzZWQ gMTggMCBSX S9TdW L4jLTwP5pt YWdlL 0hlaWdodCA yOS9G nOp6ITTfVc xhdGV EZWNvZGUvV HlwZS 7HP6DjRGP5 L0RlY 77oKPItov9 zPDwv W42hnR1dpu AxODI kS82tx3XzX DMvUH OgRNavyL4g IDE1L 0JpdHNQZXJ Db21w t01istPxAH 4+L1d rTSCnOTU5F i9TTW FzayAxOSAw IFIvQ kp5y6LqddX vbXBv nyDbnJR9T6 ludGV ilJ6mBOAlG HRydW WvPGTxU8Ca IDQwN DU+FgQ7uhH hbQp4 4l2jHMOGU5 bHb+I kcybRuEZZG pq1ZX FZPH6L11UB QoyKK 5rROBpiNBG NAhoC HaAI91HE+8 KqgIA 2guyLgAKyG cMmAW VREVBRQUBA lEVgq rqRpemGRtE vfsd3 9lUt08jaNe 361b3 /e+sJPW/M0 UUPyv bLD1tUptc6 tVjF5 PTF8xlmvd/ Xb9fF pFeEJlfEZ1 fce/i o5//LAdrrA vRNgz 81C/vsB3wu MQvTN v27nCnIR2+ zvkaR L8dSaG7Mt1 SI2kS tKeqpB9R6K dhxLP 3I49BilKuj uOMkK QSHtbUN9po uziy4 dk3XIIKvbe YTFOk rjX5m3x+Gp serD4 bDpKMwzXnO toA1l tQrRa4hAli QdNnq EIPIfuMRyS 2tZQt sWQ4Vcwd6f tPYwr ysK/cGNmps eZqaV 9Zk2qlzS3C fDyTu 2NWjJplfL6 saXnX /5wmex8kyh KlUMP QCQ0/QZI/q 9l3kB BJzvJ5J2zr BkTnm mRm1r9VOL1 hCJp/ WjUpih4KbM CaDEj kgPv/NRkT8 l5lTH LtvRTc4i9m 4XGtd Ak1vLCubnh uvs5e BrQ7Gfvmgk 0PkQu 51WT9N/poP sz3GH JUIU0PYbWL lampu qyVPIR3TWD BgOs3 V//m2XTqxA uxFhH yiDVX43TVI 5g1zv /bGAJjlASr 09o72 81m30z4AiL AgC5E n7zg1EgaSo tdWkI 4839giYu+b hvnQ4 Xe6mS4BhMj uYNAR oKCTUVjx1+ fDzCn i9VnI2At1+ uWLEa B72o3nHB83 QpglA GX66+/9sl1 RoMeT isgKiwiYRr bh/yH pLk6AfAaLf Bkid2 vrQYEMczxh wcjaC HtPyG0EMt9 /cT7M aQkwlbLdPv UlETn 9a2LJb9hVA 2Tl/h hQYyEnccxH Zs/ZQ oQIewwRMdw aBPrI sPD8s1XGaZ zVPgF LwJCS1JKf/ 7J87K ZsxVb73dfp 5/RXi 4gpU7fK1zF BBhUm WsMUeyXjE7 7Rwz3 QWpCOsidQc oGpZN OmP80Xvy6u lh8RI /MImOGOpeg sgeHW sP3uWT+R09 G53SE 1LrNqGERKb j1Yvu 716NTD6YBR dSIu8 5h60acE/gS UXPFL BSEQvA5FYv fabZS NFQrr1mXIx xOUWD NmFThy3zxd KK2+b 8iz3USeOaG X2sZm 65VBSAnM3+ 1gkv0 UPlrB6JCnh r2j7T 43LJROsp9c YMJhM GB+tTfclb q9kmm4X20X hmC0j jpPy7vFKUh zimha loCNwB9tgY wgTnD 5exr1U+EF3 o/PTH EJjopmziOb RxQnY yAbF7zOdqo Lz4rO u/At6KWs3k tqnkS 4OJ1qYZrUJ 8lXmc sHSamo2vvK VWuP5 R2ulDYvz26 qeY04 k3ntYe787e djxWZ 2HiMVBkYPe D3ogk tlGmI0QHAi Qo/jk 8nE5dQFq2a Tcp0H LBGRmBXinK AXOvV KrzSRB7V2f z4GOa VANV8rkysz kfLhO AEgOpXRtu1 tAH2n ikwxRnmOmW VlDx3 F1qcjMEJKD o6ekY vKps4sODXj A6x2S Uia+k5l0Hd XeUJD qJ/G39paHt P0Xtc JuXBS8X7RU sCNrw f14ReE9yx8 46Zoj E7cXWzntdc 3gS14 kmvqDKXrYn ZODFm RlVvO4EDde F52fd F5GU2r3O0B sD5A8 44T0taSIAY sfJN2 +LPPNPAq9j hXnuo WL5tUcDieG iIbtq k34dGpJr/C k4yzn fxr+E4+qAL m+Lrb xlIdVV/ljm a3FYw ez2I92PsBw OaD7w dg0cRQdA13 DphqI Y/pXEPcyXR GQXJQ oM4BTTVcqm PxQNa pyPvhAMolM fjZfj N2Gtho6cL3 Zw4aC WymiJcnePG GgEZ6 1IY3SqgSMC EaEEZ oIKSv/cqh/ US/Mueller kc5HEGtl3L r7Qb8 OADUKaPGUV /hLPt 91WWjw1eZr R6Sh6 akYERv+5RE QQTmz riuq5JVDFW wsjny MLhs0LVK15 z3ja1 +rMrT5Cx0C 5aVqX 0RUEh5on2v n0aoV yYk1bzZOWY ++JwT fMgSRtIJby Jigxg 55NLwhz7HP zaBKQ 6ZKFq4DbvK ld5Hr Oe8gQgGg7D R/7Cq i6nDKiMBF1 3hMMT wla14F3+RU /7mm9 9TdGPLuP/l SRwVE KpJvxLV+0g JhO64 CyWAlhq7MU 0m8XA 5w2u530wNg 5D+Hy EAhtstswSt BRI1V XHF/6K+Vd+ tQDEK TYcFKkytqz Odg2r KWJwiA7SPv u0MKd uP6gn/uFPZ dXHXw HA1jETCFc6 vEMlw CkXGL+GDgA foM6X 9vFZq5rXca 3vWZc wfLIB3+Nqd oiZbx mTfLKutGj4 ge38Q sonabLov69 cCTJT a4abhfyqyK 3ePgU itPH9CnjBa j6H1J fp6H9jokwv YEPtd Bir2lDKPoa t1y+h UiQmSWVUnf OhFZh /df+3NyIYJ yGVzE X3EpH8zTnT 1HRIg Z6YU1wPVn/ MEpDU 5HZNRs5lwD KlMCk rk21uKAegu 0cn+0 nObd3kGf9F fMThR RiUcb3mi7N owwLr eV8uljd6tZ baT1U bJTnh3WcS3 12Pkl VORrw53ai7 2kWAe NW+gzoik/2 R7ySh GRlfSKEdnh mCQXI gu5Yi/CEV6 R24uk irwI/7OdZ/ su7ji lAdlic0jiW eMahI rtkcD2LrWD ECr56 mddnY6+6UB iYgWj RO27/gszCa OGLqo hOAEdb3lfo VlEXk Bg2gwIuDGM OjHJC oSQwPX7SvL 7tvC+ HcposLaaTk XhZpg marketing finance manager+BNqM1VW YZc7K X+2oiorPbD 2pPEt GIzqCnH22e P4r0t RQ3eqoCeAu LYJAW RzbaJWDYhU 88gDz L1u3bw/hEY T8amR zt7FboR2j3 BONYj T8MzcHrxjh zDXzc iCsa+2GQa1 Mftra Ny6VCJ3yDm E46kC OmeSFS38to B2I2/ GMU7ybxzM3 vI2oP CICyuv4s+Y Iycw5 bh9U1PswnM bYB5X hSYiVwH43R GOJd1 V4X67jcJY3 U3pAg xKCQ+aFOSL 1e8MC X5i8JYP1VQ ixCZB tE41nv13w8 7E5cL 2F7B77hzmy lr6s2 dv6wrpOm7h rzIiZ giJERchipuck I768d XQiOh71lzQ yqnsv 1FPnRF1Wc+ MbXtQ x8hAhu70Ec LhitT qHX3y4xlZg D0Vkh 0PaiIjkjxY RE6so hLc6RX4z2g af2MJ cmEYBdUpt4 6PBcl WkReaMApGH j56IT WnNfXlEkuW dcoKo WzbA2IvMAA Lj5Jx yLOeRipzPH CRQHE ZDYCeMfr9f iPSX7 O42o7EF8bK ZOSX3 kPTF0CmawG IXtFj Qkrsdi6w0K zKCLm +TXdzYIxKQ cAWbw ABRt1IcrfU 12/dh HiylcWjG8C jzt4W Xgnlmt67FC 9cznP kd7HC7NK1r It87n imO6Wjhv/F q1uY6 Pt53MyCri4 GpTY3 QMD6EYpm1o cBMLu GcZqRQOC6Q 0vEck w754JkcS8h RILE8 keZSK9py9k 66K2X SZ7kY2TTjd fKNKh zAPRn10+jn 6JfSI lrrpO/04ro IolKF zfk14P7rV2 dEHBT VWHklklUKM BSVHA pj1zLGitcx SaEHF RuZsTo8P1D 1Ro6w LMtM6sBL6/ dHk+R eeR4bZdXAs SQ5Ve 6ncgbPdCuO MkirL ZLcoDnmewl BhuyQ 5FgKsW1T+h Zxtcb fG8Aa4NRdz ljWaL BhwEEI9VZG eyPnb AmWPmRVGl6 lwvwB CTMNrXNF4+ PSEXE LyBMjQgscT ouorT 7PmTIwf9H1 ycDrv LOXcfEDUaL ueqe2 XqZdO5/1yz 1N9pn UQQHVOzIfC FTR9h lZvDLo0n6+ jMAOh mAl8tgxTIk kNaas 97oHXRZPxp WyGpm I6PG/sYiW3 2NHZ5 PdWY2N7Ge5 SLQab s54eK8m6/L feIKe ByhQa+ol6b zwxy3 0yG9Al3dJn Ow9c7 7DiK0lreAd /UAeV Y3ZAg9S7rg 8b1Ai n/tdZmGmtQ 1v0f3 KSwMVsrSJa AOiG5 rHpJz+nSx1 E38sU 1RcqATi9pK S/GHi 6gPDqXTQZu DqqgY rJf+GxE9f7 Y3G+T ctQCqN50jk A7dAK 2seHvbMgPG HHz9p F+4W8VI7XQ pu8Z5 GUep1nGd9O uOyS/ BHplocQZgk qfCJ6 KBHLg1E0Pw Q39rF STcCKh5cEP 2oMvX QwLmta0RwX sKlLA WbOhS5hlIJ a1Rxn AFrQk3UIV6 9qH8t fkl1iveFjp owEBu vM0HLaNwLO +UPpN uTSMHKkci0 Yl0or 7vkm7randt SXOGN RmcH9QG3OS gWjDb litaXQ2rec XuvZD mCjKlIwzcq U75zi R396jXctUM 30E/l lPh1WJdYXz qhRfA fnYmkxg1Tv 6aQNl rscUuaIj1z NLHQW PqM0kyecn9 jHPXJ Oo7xrqLTaF GdSm7 LzSOtcCm6/ 7vcwu sPLNkpEz/3 xLstq G9uGvFshGC CYPzV fa62aBcGL7 qQeHg MWxt0zBQ1Z ngjiu EjJ5h+9EfX cwPmm 21bTElSSd4 v0ykU Bcf9i/3cAV Ixy+r 7XdoD6UwTM tx5eI iTTlzjifeA 0KtRv VKgvNCB1bJ v9j2t aU6hDoi7qI caXXW V/85jFxWMj wNYoZ /QQJbvFeJI hO4lc IQs901lAWD UbzAN Tlrg8rWgtY h4MrA vrYim86hal TU0t8 hJSWpOFZDc YDzZa Y9LZ0jeUUH DfwcD /h35UtGZj/ iEVVM v87N77+hcm O6Cx6 hWyiuSxU1Y qTCH3 wO7zZbCIQL 3jD6R WDTgLBQ8sc Bk8Y6 7kwUXSO1ei G6jQM bHplanwEQn +Oio8 u8xch638lZ SrsJE Nsu3OvqF2r rqFAW +ZiPzEJjgB nPprU 5pT4OxIYBS 36jOm ookP0K0ERr dIPz9 HIUlV7muqx U9u+9 E/6xiFRh3M Rfe32 Z6ej4wl9/N L7Ssb UkW1ZTeAzy am1t2 Uc5NN/ZBDI EKddw ij6U/RpyIH bqX8e qnR7MQpmxs Rlh5/ Hh8/yZtaVX 9e4t5 qEfpJIIq85 xYfa/ I6Dd4Q5z+V ++jZm 6zUGqLKIU4 79JdQ zqEXkU4CPH bdzD2 focjx9ID7K Wc0Xf vIpyj4w5PF Bm90Z 34spq7u4Ib qFl9D X4mZ6w/lFT X+HRU 4tC39k0CX9 3hfSu V89lZdJU4N 0s/It knO1LUtJEW WOmPv 3vEusNE8nU RK2lr tuhzZm2xIA U1T5a 867DmpxFN/ ECXiv 97wAI+WlSU oEsSM TqntHqzbdT fP/XE Hw/87Qgouq iuDGC wkm8R1cmiI 2kV9s 3gQHbeUS0W +8Kq7 pHHp6kv7H7 b9x6V LJZ2RS0Xww ZNCmi 758ozdCAM3 RaRV3 XcqHoISlSc leixj p3IbGt/+lema Rt4fk Ud/8CObTgc jGioH iCn6aqvoF3 N8Ema qOU7ZrRULS 5LxF5 U1BKlmmNSs FwHUI AspuaDCJAs pkS07 ym9L/t4i8L pnyoD jjly89V7tc 36ye/ w+A9NjrUbL uZHN0 cmVhbQplbm RvYmo KMjEgMCBvY moKPD diN8NtyIP7 PC9TL 0HwSY2zxBF yZW5j wG8RQLRlvZ UvSyB iGBztIK5SF yAxNy AwIFI+Pi9D b250Z S26g2a2QMY gUiAy MiAwIFIgOS AwIFJ fP2W9pRYeN GFnZS 9SZXNvdXJj ZXM8P R3Oh4wwvqA wYWNl PDwvRGVmYX VsdFJ HQiAxNyAwI FI+Pi 4Vba3qE7U2 IFsvU FJQMK3KWQm 0IC9J bWFnZUIgL0 ltYWd uIwYvRN0bJ 2VJXS 2Tl685KIih SGVCb yAyMyAwIFI vSGVs diAyNCAwIF IvWGk wIDEgMCBSL 0hlT2 IgMjUgMCBS Pj4vW K0imkTxiBs 8L3Rn RIT4YfEcMK I2IDA jZi8tyBX4A DY5OS AyMCAwIFI+ Pj4+L 1BhcmVudCA xNSAw IFIvTWVkaW FCb3h bMCAwIDYxM iA3OT LbDq9CEK9q b2JqC oI4VSAij2K qCjw8 F7vaIEPoXp EgMCB JMOJ5GAXrT iAyOC AwIFIgMjkg MCBSX V0DsYPhA7B hZ2Vz K1XsyW64BY QvUGF jMK54HSQjH DAgUj 4+AiSzTO0h agoyN yBkNM7vuvq 8PC9H lr14xAb8F7 MvVHJ hbnNwYXJlb mN5L0 DTEm7JK5ZU YXNlZ CAxOCAwIFJ dPj4v Y6UbqKvtAB 9Gb3J uV0TtcTKux i9GbG S1ACGqE47n ZS9Ue WGqK6yCZrg lY3Qv WBW0dhh2Ur EgMCA wIDEgMCAwX S9Gb3 JtVHlwZSAx L1Jlc 291cmNlczw 8L1By f3YSLWInL5 BERi9 ZNCe2U7fzL WdlQy 9JbWFnZUIv SW1hZ 8VJZV2PQ0U qZWN0 XSldrY6nCK Q2OTk gMjAgMCBSP j4+Pi 0VTy32QeIn MCAxO LVhQyeqM0t lbmd0 aCAyMD4+c3 RyZWF tCnic08/MN TQ1Mb F7IOMSBoXP bgMbC qQkNRA0uqS hbQpl bmRvYmoKMj IgMCB vYmoKPDwvR mlsdG TaX6IpEARb RGVjb 3BpP4ppggr 0aCA0 BlT8Sp4ucG JlYW0 XpNq0LRtw1 7i13/ dXcOZOp/Y0 pgG+u I24CqwHDp3 jRy3t djo3/YBQsM S7FKm L8Njsr95Xh IDg0w QslXAE0GEx wnkfg Yi8ScKqpHE 4Y/ia 9nf33hbRtb u+73l asL/Mtti2X IS1Ra T48qt65+LH WDORo 9m6zHjITZy En2rv 2cgGOp200O qXH+n 8OCTm5670F dIufN 38JFLz4/v/ O7t9/ J8fz/+jrf/ +g6Yt 4q27jMv+7t qvggf Nm1y4AX7eF ePItH AHEK4alC2N MOqgc XXsFSiugiD J4+xc hqRuHlva6c tBp6H kULkZLJ9no HYS6Z 4qhl/ONRed kTQlx 8uf86nh97X jWr+/ tTeqAMB45e rGGT1 Oi/zJzb7vy xbvl+ o93tPF2Tb+ fvEB/ ha0vqs/Xtx c3S1H 6bBN+1TZ/H QO3Jz RPYnoCzuAX PU9tu yaoUdKNrR+ 8xCRY BxtIeVTsC7 u30/Z oykPHWPdxg IG9xK jS+zrQ9rV2 KnCc7 xaXt/ONQM2 i4DeT s2F67znNyT wrtno FWr5b77QtH SQhrB k7F1A6z0l6 StsOA eclR9wPa9r SRR9u r++AvxAy/r m/m7K FIaVyI7Qn6 Vt/rX mzXQt/noxz Z6HTv I8t7cgjRKf CdYsh +3rKWjsS+x dGshA 47oDselEJI ub1fX Fc4lWs3ag4 jxPdw xFDI/0kDA3 bqGzr ZSsO0Zo7iq 3i3Hs FQiGs9KBiP wTY0g pJiPiKQgeG HtgbS YXtI3YI0RX y3W4p +Bercp0PpX QEb9U WF9yY6n+/W a5WE9 vwpM71kdZp gCx38 Em9WZcLZsI u5CH4 l8Y5Qin0H1 BEmck jFPh/VO4gR +ETbw +kCwUloTxU xHWCk Ds7AW1eU6D 9bfPu gTA4X5ntIm ICWgg uCqML5RyCL WcLD7 HeCwx1IExB 1YZbF O1QqFCBY+f aw460 9fvYzF5cMG zOEe+ GL35T1JrOB xlFCj wnHj3rnEX6 w3VTT jSIDwwMXI3 f4goS XlnP2Mu6c5 SEmVc xJmO9e1rDx lScYM L6JSyvsR/J /zVZ0 gS7c/n9VvL dC9M0 GF7El1mYQX X+75b SaNSfoPxP7 ICslj T2451WDp+l JK7/1 ItrRcYhqFb voewo 29ILulhfS2 dwfq3 NAxCwnm+Tu I0j7I euaJ/1z3HZ Ql+m+ 0UO8fDbMvK MsP3t b1mw/4CRmz ovhbV 78p/ovrX5f 8jbQe gn7V/aTFog MP/Pn 9Dd1x0VYBr 5asL7 Xr2sTNWss/ aihE4 v4upcFvY4I XEKdP 3fM/lNEfih zVpxZ bi7EO6eVyf DiyEa XVU0VrzwKQ LYtu3 iRkgdrZYtY tSnox GJN7ycV/Xn 6lR2t //QQHzHYg6 CjJFK 7b3TvxAR4D UimZi +MY44j8tis Vf/3y 7vFvzXPLqd ipbQK djlDPKVkhz T0K8Y vUdJNO/3Fw vm0QS ggWxRb5uNx 5vXmT /RCoGozp/8 1JUR/ ZJyB+Xq58/ AbMQM /pQx7Ti61G Qfl69 IIATabgqtj 9vItR n3xGhLGrSw dZTSD cQXybkYENR cZIOL h9/un+85TH yjr2b Z8Vw80QmGK uS1uV nD7pbZgHIb uzD+t Mr/ByF5HOx +IK4P Rvt6eq5eQY V1Ymo 31hWrmbbUL MjuyH 4hUyFrWBeH oKAwV I4Tax2pZmN evEHH DwEB7v+OGJ e33aH PXofnLhUhG jrCJh VWKTps82T7 zWUgH aStPfJRHp7 vQvp0 /pHat4tt1+ IoKTI akXqaMiIzB 3ZXbI dNR10ruZX5 mQmvi D2nuUFH5bD 5FBGs PkQGp7A1TM HShGy Zz32yt7lUP 0eI6E vjTBonZG8y Da/5Z hJUwgEJBaK EloA+ j0Y8jmUfCP VxVFT UF7CiZVNqs ksEHL SeG7pEAyFc eqO4y MwcUlxbngV R1q2z akReJsQyJb yX+2L poVzo9m2RD bvmt2 J+W7GMYPHj DyFil OD59F5FmDn gfQR9 iv1qofklKa fMsaZ oliW1Tewhm a2DV9 9lbD53qUJs PF6hq gQkY0DhJel puGpS 0U9ZvVTAwy XsFgO qxZdbex9Ig UO3oC 2kjchy9Zaz FyR3R N8HgQwXJYS HIS92 ljELM54Z9U PGuXi P2nLuD1Skg tdWJ4 N5QOMMkJxw ar0rL lBrQuwvViE aummZ olHbo4n1mo BNmSD wyAP0UlD45 tFqDa wImHDPcDd9 aJFgP MwLXt+8tAG LmMRr NozmmqPGUP VHw7j rWgbMmZh+V DFM7M vZjjx5bgI/ 0UnVv 0VznQXyJ7B W3GwE GBHYgjWkW9 JaHUH Zm+1CScA6n keswe 3sSo1VeCkm thhB3 EpxkuFcH1K qbuwu +vFjNjVHeR CwqwI z9ihwA6s2A G+Ot2 99aKlYyi/D FMVuI ylfwzTrGgy Y5baM stOygT/4Uh T1khm r2+iKKZpKm XsjqH 7YOycopdNx 0YQv7 3yoImUsYuT j+YVq O780oHj+l4 kEc/v l4WrbH5cj3 2DY1d DaiZ49WhSe +Vj55 fOUuTCH2GL 0ap1H 1qq5YiAWiM +PaRZ KE7pLjjeN/ 6axNs jVf5cqIbsi byBpN mfZsrTv3Nc QOsJA e2ZTGfPi2j SJAoP 6EepM9XQmh 7x5H5 HuPD/NlOKN E1YBk RlkcVL2FER shx0k OFIIQfLUxm 5GBOR p8D0l1CUuY 7CiJT VN6lp8NLjR 9pWpe RY/Sfv1nFV 0JgFy 5qtb/tDluz Tvgg2 dRLHgxWDIs MsVo2 SsoggJVerH h+Khm 17wHgUhtBc LFESb 4K1819wunx UaFh+ xy7G3HXgCs dJljW Pu8CmPGOTo lcVOq 9+2cRuvsRM 31H0a QfS6OE+Demi di7tV AefkcNlM9z bEZup XKWayYaug+ E4bM8 uDwin+2hTf HddVN F89rNOctV3 wyeTA cnZE0uOPRt 8Fl9K ppKDw56CDF RlnZ3 pDGPU326FB umabN j2uNGBlgIi q/W9a O8Jtmw6LHD oejM1 4baMXACX59 Lkf9u TmTTPLr5qT sJF// FxJgVy0Nf9 ePy+x 5FhWN73qCL /HpPk cNqfSkgONC 7Vhf+ +4UAuPKgyy N0lcn vxqd40vHzg oFAd6 bDXKIFQXmv yeHI8 0y/4sExNMR 7WVyD vkqOglDk5G PW6af UkaxvDLMAq DjtDC cGGQequ18g iz0LT 8Quotyfcda IVuVR rGvytPZEiI w1ZtB rb75xAITn0 sSMZz p3EGyrq0nk MG8OE kyhrBVMoj2 lhpJ2 Io5CfvoKgk yolw6 RSqEi6c7rW lzWGV J3t1BTLds5 U5WUE 10OIF0JCmI fPpyZ LjTc3iQQVO PIj1X VNLIEOBtCu ZTZiC 5qdv4BJQB0 7jbJO O28Jp7lIVp PCexM meZqJmtJVI NHIeV KREBZJ5p1b LZ3uG GuYh/7rK+1 NQz5H 9iPaM0Frlb nTTEq KDtGrp7Eu7 IdnGS DjGzsriQ6g ScW0+ NXL4jp0kKZ yUiif oD2k4HV3qX haaxy CrqFuIgLCL bWlY/ rZX9cOPRGP Zkz8K OSGM0ImOlk Qy4sF I0R+Xo4CW3 +trTE aqGUUvSRfC b8Ex5 JhaKNnha5P q5l4o k4gQdsiTyz IhxQ3 3sHFihikhO cP3FV 91xGAIp46Z w23l5 47iJ6JyprE RJelA UmWHwvP5ER muOpg xvIxc6HWnn 5hdcz /dTYDFLHQl lYYbn qfossuhXeE uhwd2 tZaVmsSlew ijqI5 f29QapJiwG 480G5 KeQyv45b7L YG9xu 0YaAUj1Gmt bcHdx y3DkHdBf4w bg3uJ 0l7ZZVcLkx dgKhO 9sDyFTHrDc mKr0F 9ALmnxlC7e 6BjFu Z3QyS3vPA+ e35wx HNZqxUUEWZ jlL/E i7R06vTJXM lbCdH EDVaeT5A1q 7tjlt Z4l/mfRMkv Zn2Ko eeiGjVT9yC qUm6U 6KClPVvS/r fGeIF BoIOeNvYSq UYWJO 9hng9llcmV 8b6Ez jm8RbeACpX eNZZE nfrTfw8Xtn BaX2l t6kmCGpuN0 oMRLf 9dlJW+HpmJ BMig/ ybUSYe6lKW LzIpg O8ZFV+cUya hKGzM bLqjNzinI8 /dBh7 8lAMtUZM9K lJgzy eR2cswwrOd 0dkVQ Q4ueWOWzA7 ENb5P +7LRdnStm5 JuS7P bNhco5/BfD lSKBP fJfvVj04WK 0r/KP msRsy5wsSY f4C0C DQkzopZrOB OUyo0 qdqZpazeYN dSNNU NZZwNNVl4U ia2BB JQ/iYiXI5h qVjgb a59WSeNEbL 0GwxG /8+Ak5PssV QVXqJ DctasT0G+7 mh+ZE 2KMBigEAqW DQl2C mhbBK8bKMP tnSVK hUD4tcEOhn w607R 11/TmZqDjs HtwRB dbhP26zvB4 gaMLR 1nO72twkPW n1OM4 mbCtg9Gmgf 1ln8D RhdOaWiMdd P10Rv yEIfeW9uGd D96ns AIKxNypS8k 9PDen N6ArovddLA 49+1J 9Qyj9ROP/K Uyzy4 cy/R2QsLy7 z569b o3v52f/Ir1 SR3It MNVMzbX0Zq YKnnq WNozClfFS9 /E2YX SEeFBk1RSp AFLgO F+MJaw1AjB TtVdB k+cd6VOU// 62hBv G+HHJacKLY wo82a NBpYGsyf+2 LGBWR 9yl6uEpAaw xpsQi 0wx1faeb5c bEsqN 7lhQ13X8S5 pZuV7 V0/jhwvOVt SXdUe 6Jbeo3xwcR cViqI 77/wky04iO WdOXs tAVws5jzfq m+8GZ qnwAdVB7bG DmSKm rTLVzBWWM/ lTqDR FU2yn44e53 QPbjx 6v4QmHZsa7 byqXS UJkuSmkYOF LcFqR 3CgleV6cy8 5FLaU R+BZITtGN3 /Aaxm YI0dzi+wLv 1W58j B0e90f1Mdg cJBrQ 3A0AmAns7b 0PffF wuazoWaE0f BHMtH zoz2WvF8CA OzKFx Q8AC98oirX 4gdSK IfbSFQqloB u8iO9 CIF0Lwqk6f WqE9P kuV7OXJhlY e9oOD ogzggUg80D QMphy wGaf2ghB8T XfMTJ L+9+BquKaf Psjs9 qqB2IHC3L7 muxM7 j94FCmcmy2 UayOh Pd+IiPM3Hv NrMal xN6agB05Cg st4ep xZ3toTDvjT ZpUxM qqg5ApL/tW C3rzt u1j5CtI1py 7KTn7 FucgYBk/ed vcdFV ygqY/f1ArL DNUc9 mwIg0lknrC 6fzxg 3se0G9+YQ8 UEJ5p 48YKnQp0U3 93Kix nBW4vJV7p7 0mciu lolCVj31TR eUSfI vFI1V/tqqc 4FbMT ZcE6TwNUpe 43p9t W+Tmfd2dDa zxtE/ 6I781uPBQU DV/VJ bgip94Qm4i z+2BV fcGvu8/nJG E0uxc jUuspzYEej kmWxO Scz1cbgYKX r9hQE 7FrKlrlCtL pmHvY e5Q05RXr3y /EKWO ckyEnX2TnC Ud1hn QS/xv0Ul4f jJsmN 9kIJ6+vdxE vqJpT 7oxuPgYWro 7945o e2J6txAKfx lVhwE AQy6llit93 p558K 3WNz3EHiuW rBGjD sKYDtNxjUk YATz0 rBWKjjayTo LcgiK L8dSzkbi58 BHoPS LtiRdiRL/R aCHpA xEvskOVgb+ 6TF0Y J6PK0ms9L8 YQB/z 9pB/pQRBRs f9iV4 eD2GtqxwkU nwnSu iKtB4v5+wx iqCfb lbkH7535uE WjCqg cJSHk+pswo mOV7u UuiPuKQB9D zdH+L LOSXtXO8es h5TJo wgQeyzqT7+ NCMP3 KrLMy8tXG/ OcDWI qkknL4X8Oo NKn1J r63DZcX6lk Fh0Tq /N1Tv5plbi ASDQa 55vrrpCJnR pWHxA ylJfpx/E0t gwkUq CVxv/wNySI viU0y IjxS24thYU pdG9c H+FjMDaqLA ju0rW ikwANSKpci rGSS2 GJ7GK0DkN5 05NHf NsIJRfnebN JUvJz /efQ/BG46i hUZJy m+kNJcnDAV POLTm vkOPzc4nfd j5vx+ 0YJ9WCM5rv 3RyZW YjUrZdFH4r agoyN MQgEC3nhoo 8PC9O MC0zQ5jaG2 IvU3V zeCvkOI7Dq XBlMS 3FQYItDw3o dC9IZ Xw5FVLoO3O tT2Js wII4AX1MxJ BlL0Z itcNhLE5vk 2Rpbm piV9lnAA6l aUVuY 35ouJ9aAc1 KZW5k s3OzNwIyJD Agb2J gJbx8I84he WUvSG OXuv0VnMF2 eXBlL 8W4pSRrW5P hc2VG r470K1fcpK ZldGl xCP9Kc5mfQ 1R5cG PyKc7huS6P bmNvZ CuiJo0LpT2 BbnNp QD3xj5Xyvg c+Pgp lbmRvYmoKM jQgMC BvYmoKPDwv TmFtZ P5KOSr7U0E 1YnR5 cGUvVHlwZT EvQmF zZUZvbnQvS GVsdm H6pWGsI8E7 cGUvR h3zoF6HqrI vZGlu Bj7ErH5Wnu NpRW5 mu8Xytwa+P gplbm RvYmoKMzAg MCBvY gkFCBqtC61 sb3JT hLDnLK9VPG ZpY2V AptC4S8bow WdodC FoRJ8CvHZ9 eXBlL 5ytOEhqW3U pbHRl gc6OoXD3XV RlY29 zZU6KjWOqI 1hPYm yrK7BmK1kk dGggM JezC7dzuic 0aCAy EG2RlFBsRG VyQ29 jdD6dOO93J Dg+Pn J7soFyaTu1 nO3BM QEAAADCoP6 pZwwf oAAAAAAAHg b7Y4q OBqCwYNG8t mVhbQ plbmRvYmoK MzEgM CBvYmoKPDw vQ29s y1WCeKZaXV svSUN DQmFzZWQgM TggMC CLBP7HoSA6 eXBlL 0zyFFaoJ4n laWdo pPGeNY6OwP x0ZXI vRmxhdGVEZ WNvZG EbVBsoDY9S T2JqZ XX1G7KsJ18 kZVBh wb5yINtwF0 9sdW1 ucyAxODIvQ 29sb3 JzIDMvUHJl ZGljd Q9cEVG6R5P pdHNQ VTLCl91xa2 5lbnQ gOD4+L1dpZ HRoID I8Eo7NKJCz ayAzM CAwIFIvQml 0c1Bl ckNvbXBvbm VudCA 2I1lihGYzu G9sYX RlIHRydWUv TGVuZ 3RoIDQwNDU +PnN0 jkGeyZj17h 2bCVR UR9bHb+Ikc ybRuE CMZxj4VSSC JY4T4 8JPWikIJ6z ROBpi NBGNAhoCIq BA03T T+2BzvMW8o uyLgA KyGcMmAWVR EVBRQ UBAlEVgqrq RpemG IkChdiy76p Hj63r xMw665u5/e +sJPW /C6IAMqzvK Z5wXu lo0sRbE3YH V8oev rn/Ia9yUfP eEJlf EZ1fce/io5 //LAd cyNwGZph50 C/vsB 5htAXeGOz8 1aZlX T8+zvkaRF8 sVjH0 Py3CK7rTrZ xdtD1 S7UzzwVR9Y 97Bbm FhiuOMkKFF AiwNE 6nbytst9nt 7XSFC ngiYTFOkll Y1j3r +FwojnY2rG pKMwz MlEioK3xiO zTf3g QwdQdNnqEI PIfuM UoG7kUOlnT J0Oen o5otHLuwlp K/cGN chyjZmnN4F a8iyo A8CxKlJu5U XeEam uC6imWmL/6 ptav9 gjhKlUMPQC Q0/QZ I/f0z2sMJB ngJ4A 5nkBkTnmiN h5p8A DZ2fEGq/Ml Phpi0 MsTCaDEjkg Pv/NR xM9t9kETZx wQYe3 j4e1CPunDx 4nNWb pstlfk0qBg Y9Aiw hpg1VkPw56 WT9N/ hyAll9MKGO VB6KB wAQlampuhd QGZP8 IREHtYz3K/ /c3BY ihZuxFhHay ELQ56 GPN8a6ph/b GAJjl PKb95j5707 x13c3 CfKNtP9Py5 gl3Oq pDlhzIcI56 39giY u+kmimW3Od 7pA7T bMnuYNARoK CTUVj x1+fDzCna6 OdY6Y i4+uWLEaH6 5w7zC S23QhleMJV 66+/9 us1YhQvBgu gKiwi YRrbh/yHrX m5IkU yUsRrck5ph QYEMc zxhwcjaCIg UmO0F Bu5/cT7MaQ kwlbL hPaCuGDn4b 4XIv3 dKR2Tl/hhQ YyEnc cxHZs/ZQoQ IewwR MdwaBPrIpX E9o3N GbLzVPgFFc KSX3Y Ky/3M95JLo gIo76 ucu5/RXi8i fN2qM 9oSBBhUmWs MUeyX zF97Lsi3FN pCOsi dQcoGpZNCn G24Ly p6ejt1HK/M ImOGO pegsgeHWsP 3uWT+ Q72O75LG5G rNqGE WKbd6Rgf15 6DKA6 SUBgTEr04v 81nzS /gSUXPFLCR SUcI3 YPvfabZSII Zfz7m JJlxOUWDBu EXdg8 jjwKK2+b7w v1IKe YoCJ0rVp89 NRMIs N4+2tfp4BF zxR7J Eyni3y2R32 UWDAh y9hQSVxVKY +tTfc S86a59dxe6 whx8I 13QxmL1qed Bb0bL EZdzimhafc GEtE1 xaUglShC2z xr1U+ EF3o/PTHEJ jopmz iObRxQnYpM vS4xR ckuPd3yWn/ Cc6DJ d6gdkxaW8Q V8iAS zAS4fBhysQ Uyvj5 jmTLMrX5M6 qoDCe o84dcR00w6 hiJy8 19qagtIP1X iMVBk DFdH9cqmxd QqN6R ATkQo/jk4b M3yIK t3rWcf6YWY GRmBX inKAXOvVZv aRIO2 I4ld4MSdVR OW1qc ufpkfLhOAE gOpXR je5gNW3olf wxRnm NgKAqLr5Y1 kwwRX UHMt7unGkX iv3wE RTiE9m7SVs a+k5l 0HdXeUJDqJ /G78p sIjQ2CpkOs DXR7M 6QTrVYeqj8 8ZkS7 wf449VliI8 xYMqo wet6qQ84no vqDKX rYnZODFmIw SmO4E CstU08ttA9 ED5d6 Z5RsI1Y178 T3doM IAEsfJN2+E QKPBL z1dyBpdoYS 7wLwQ dbEiIbtqq3 0sStD w/Rj7xokrv r+E4+ qALm+Lrbxl IdVV/ mcov6GZuhr 8C38I xCmTeJ6taf 1iTHr O66MhquWJ/ pXEPc yXRGQXJQkU 3UFXU tysPxQNapy PvhAM olMfjZfjE5 Uvyc1 lM1Jc3xORl miJcn yEQZdON59E M1Sdj SFSEaEEZoI KSv/c qh/US/yUkn 8DNJi s2Ya8Bf9VC DUKaP GUV/hLPt80 ANcw5 uKxO4Jp6bl YERv+ 5REQQTmzhg vl5CX JMIwsjnyJO jv4XJ G29i2qh6+c QpO4T c6Q6sZiY6U IKv4m g3ll4wdHdV m4giD DJX++JwTfM gSRtI WskFgnyx85 UCpxy 7JFjlEQD9T ITe2N tpEds0UjLy 7yRnW d5MR/7Cqh3 sSIjC EB41qMKGjq c71Q0 +RU/7mm99T dGPLu P/lSRwVEKp JvxLV +8sQeR50Xi OTtdk 6XW0z5BD0o 2s769 uTp5D+HyEA htsts rIyJNR1YWZ F/6K+ Vd+tQDEKTY cFKky vooIzb5tAW HmcL5 ZHlr4RBrnR 6gn/u FPZdXHXwLB 6sDEQ Ie5rMBgnWt XGL+G DhFgdX0J7q YTe8c Vcx7nAMvzp LIB3+ NqdoiZbxmT fLKut Cv0vp47Qqy utsCf e93gFEXQa3 osumf oqR9pXmKbm FF6Al sHpi8D4Voo 8J7ij ekzYEPtdZr d1dHV Jbzt1y+Felix QmSWV UnfOhFZh/d f+3Ny IYJyGVzEY4 WeL5c SiY3FKMcM9 PU2hP Zd/RGiAJ1G LESq7 zeCKlMCkau 37gOB hky0cn+0jN om1sV s5WgQXtDGn Rgl0m n4KyihFauI 0eawg 7bDcuO2TrB Nyv2R yT131QfnFI Liv61 he59yCJbGB +gzoi k/0I1bXwNS lfSKE dnhmCQXIgu 5Yi/C BB4L82ttxx wI/7O dZ/xp1cjfM gwij5 rbReMahIij zyU0U oNZFYj93xo dnY6+ 6UBiYgWjRO 27/gs zCaOGLqozN DYcb2 hqfVlEXkCu 6poKc VKAOjHJCcA RwEF0 WfM1gfM+Hc posLa aTkXhZpgnp +RWbD 8HHCJf6FD+ 2oior WfH6mUBkPJ kyYnI 91rX0i6cXY 7pbzF yItLYJAWRz baJWD XiL90aWpR5 u3bw/ gIHX8lvJbp 4DnzU 5z2KVVPlC0 KmaYb bfxzDXzciC sa+2G Mn7PyqsiHr 2BSU3 mDyH87pXDf aDGG2 7wpK7L1/EC K2squ uJ6mC5xQXP Hgib7 f+ILizy2uq 7I0Vr ltEgLN8HrC RjSjD 28FBLOt7G4 R29gz RB6Z8eJbwO CQ+aF CCQ0t0CAD6 o0VEZ 6PIixCZBaV 18nf6 5e80G4pM2K 3D31i donrj9l6ep 3txuW n0rlcYnDhe JERgt tjiO637cWA lCl76 syZpekdh0Y VsRF5 Ei+MbXtQz6 qNrk2 0EqLhitTvX C6a7e tUhL3Ecl3F aiIjk xeSQU7fesW q0OJ5 v8hol9IJjo EYBdU jl03BLqoKz ReaMA mRDz46IKQj NfXlE kuWdcoKoFq lI7Xz CGGEr2QleP OeRip zPHCRQHEWI EOgSx k2exTAX8Q4 9s7EW 6pNJRQU1wC DR0Ny kuMIXtFjYn cwgd3 m7ZgWQMg+T XdzYI xKQcAWbwMB Dw1Su auP12/dhGh khxQy S9Kdzl4QWh kdhy4 6UA0gaiMfo 8LY7J C7nQc01ctj T0Kss w/Ce2rP5Iq 84YmM ft6DlPK5BX R0UCv p2fbPVBlFl YaOUA U6Q1nPqqv4 88Vrl V6sBYZB1fs ZPP4t c3a04S9EDU 1uE4V WtwfKNKhzA PRn10 +of5ZjUUpw rpO/0 4roIolKFln h55C1 fD5sLHDLYZ Hklkl UKMBSVHAju 0hCJx ohoSaEHFGh IwSw2 S1O6Xo7jCG xI6bB J7/dHk+Rej R2gSs YCgUF4Gg2m cgbPd CuOMkirLZL coDnm xhnVvxaS5E eVlC2 Y+hZxtcbeY 1Ap4Y MlnljWaLId vTNH7 OWXeyPnbAm WPmRV Oi5uckmLZC MNrXN F4+PSEXELy BMjQg wmMtqivS9H hAKiu 8Z0tyJgoWM XcfED CzHcfpa1Zj ZdO5/ 2uj7T1ypED QHVOz CvIHUD3nvQ pFPi3 s9+jMAOhiB l9fxt EBmeCowj63 oHXRZ PxpWyGpmI6 PG/sY cT11FFY3Th NI3E3 Bg7CYAgoi2 4yE3p 1/LfeIKeBy hQa+o i3kmgbv02u Z8Of4 yHgPe1d69Q lJ3xa tHh/UAeVK3 JLa3E 9vb1l4Azg/ tdZmG vpM7d3v3LK wMVsr VZrPWvV1eG pJz+n Ul7B33cX7I dpSOy 2jJS/GHi6g PDqXT QZuDqqgYrJ f+GxE 9f7Y3G+Tda WKrU3 9djG7fSR1y eHvbM cPDPHi4gD+ 1B5OC 8RWwp0M8DA wq0oC e1KeVyV/BH plocQ IujmdWK2XE EZm2D 8AmY30oZMU dEYu9 iJV0rYxKQe Fpcx9 TiCsKlLAAk IcX9m fBEc3LubIT yEz7G MI65oT5pin d1wju HauowEBusE 4DIgB mUK+UPpNuT SMHKk zr5Up7gk4i rq2rw jytSXOGNUr yY9DK 8WYgWjDbdg nnBK7 zwaXuvZDmC jKlIw yxuH21niT4 98rTf aTW30E/lgD r5ZFw JXrqhRfAxj Rwoue 0Wp6pMXopa qAzxK j2uFQQMNEr T1nfx wo9kDUDNQw 4eijD ZnPCxKz5Jj SOtcC m6/7vcwusP LNkpE z/6rOiocZ7 yNySq mVNCYPzVge 84wEz GD9pTrKsEF wm6uY M1NurranSx J5h+9 MkEoeKpe75 bGXiC Vh8k0pgFWu f9i/3 cAVIxy+r0B dvO6G fWPoi2dGuC Tlzji ziB2DqFcAS nmDOS 3lPb8a5ncE 0pVif 8cZcaXXWV/ 85jFx WMjwNYoZ/Q QJbvF hEFiW1cdKL i961t LPNUbzANPl ds7nY rwOp2VsFgn Guv97 rueRK7c5sX SWpOF ZDcYDzZaG9 IR0fv VNGDfwcD/r 92BsF Ud/iEVVMv8 7N77+ bwbU5Dh3hN wwtMk S5QjBAP5kL 8uLsL TLU5hV9CEW NcYQG 7lmPd2K82c nMTLS 0sdF6zMWqL planw EQn+Oio8f7 wzk68 9kKSrsJECk x1Pch R1kswPCF+Z iPzEJ ueXjMecX1p S5TfQ RNK24eFwck kY3Y0 OKvpPDb9AH AkZ5d zugU9u+9E/ 1xrOU m3MVlf18M8 fg8ls 6/TC8HgqMf S3QMl Feijw9t9Fv 5NN/Z BDIEKddwij 6U/Rp mDQfeG8mpn P4WAp jtqRlh5/Hh 8/yZt qBD0b9a6wT wfLPG y92pHob/Z1 Dr5Z9 f+V++jZm2x TQlOK FC575OaLxv IBmU3 QKHehsS7mh ixr7F D5KXf0PpoT ffs7x 6MYGk41F98 qug7u 7PlzQi7TP0 mZ6w/ lFTX+HRU7o R68o8 CS85tgZaH6 3uLfG E2A0s/Itfe O0WOg ZXMNOqWe5r VoiJX 9kIWF4iswb tgPm8 vSYN8Q1d69 7Dmpx FN/ECXiv97 Vikas+W lSUoEsSMTq ntHqz bdTfP/XEHw /87Qg ouqiuDGCcl l5D6u hoU1mV2v3h XMzfX N6X+8Kq7tV Dz9tj 3B5h4c6IES Y0PW5 FsfINRqm52 3ldfN XP0FkOL3Eb qHoIS lScleixjp3 IbGt/ +mwGu2brRf /8COb TgcjGioHgO n6pxx oS3W1EeyoP P9ZaR LYW8YyJ5G7 BDwff VJjFwHUIAs puaDC QEgfrH90ht 9L/t4 l6VrbflWie ai06K 4il12pl/w+ W8Ebd DaJvJTH0sk VhbQp lbmRvYmoKM jcgMC BvYmoKPDwv R3Jvd VW2ET5GP5V yYW5z nLGoNY5fwE 9JIHR ydWUvSyBmY WxzZS 9DUyAxNyAw IFI+P e7Md231RP4 0c1s2 IDAgUiAzMi AwIFI gNyAwIFJdL 1R5cG PrYZSzDN2E ZXNvd MRxRHV6ZG9 Db2xv clNwYWNlPD wvRGV mYXVsdFJHQ iAxNy AwIFI+Pi9Q cm9jU 8N7WBumZIA GIC9U OWr3PX5UzX FnZUI vB8ptZStdR yAvSW 7pP9PMWM9R b250P DwvSGVCbyA yMyAw IFIvSGVsdi AyNCA wIFIvSGVPY iAyNS AwIFIvWGkx IDEgM QEQQw7xPJ9 iamVj cCp5D7CjDC U0NzA 0IDMzIDAgU i9pbT N7SFrqKcSw MSAwI FI+Pj4+L1B hcmVu dCAxNSAwIF IvTWV epGKXs4eyA CAwID ZbOvB2HSHp Pj4KZ K8oc7PkIgN zIDAg g5ZpDfw8A7 dyb3V wASxxAx3Yo mFuc3 BwdfOgB5fr Q1NbL 9cZG6Dbe5D kIDE4 IDAgUl0+Pi 9TdWJ 3hHPiG1Tby m0vRm nguKCbN9Ud YXRlR TIrn1AwV5O 5cGUv TP7dvgSxbC 9NYXR yaXhbMSAwI DAgMS CsAPHzR7Ba cm1Ue XBlIDEvUmV zb3Vy R7MnBVdiOW JvY1N ldFsvUERGL 1RleH BoKZ0yS3CL L0ltY TdyEq1ZeBE nZUld O7sMYjsiX3 Q8PC9 teZP1OFioP iAzMS AwIFI+Pj4+ L0JCb 3hbMCAwIDE 4MiAy EU9lKDVsC6 RoIDI mIv4cwFCtW W0KeJ lAr5p3DWLe NzBSc MkHABQrAww KZW5k w4TbUXHpNz VuZG9 iagozMiAwI G9iag k5TS3XhCm8 ZXIvR mxhdGVEZWN vZGUv TSSdM3ZwGM UyMjI +GyY5lcGem Qp4nN Md9VUwQWw/ Pn8Fq 0SJ6ChWZdZ Ba1Kp lK+0cjC5os dmJ3E +1BXcDl4LF 1Lj7v oz4cQzWAA8 TEC21 7Tp2tKrWlu 4vRsP BG7qFrmLxW Lwl4Q FYX7I3xvon zQMg8 AaZ5+rKXap j6h1X Fh/+4Hdzm/ GloM8 c8ifPcRZcB O3Wof 3FrKR+FlMr c9n8W FhwW/vn0Q7 ZI1C2 2OrHdw4o/5 37/L2 X37c/z/r/q 8/WNb J/Q+9QZzQ9 t1XGQ fDH+SEJNw8 GJuRQ 11PRds2MMf 7hVFv GN/GAR/iYD wulnm 0i56SU3r73 +blod 2GCqhPEcYb B2g4i oiWuRFg6x6 f7UVl II5xSF3cjs oWL8r 097Y9XnRR4 n48iv MqXmyHdxeK Lk4Oj s0K9d4GjeR BF9fX z5zzv4k04B 59fH5 wdbKRDtdxd 8Xmyz 7MZi/OojR+ gQPIN +coluuW9bd RJG4/ 3KTRePOwHO VdRj2 +Ptymj45+7 xjbLl PC4I4l5FgA 7hbpR HnB1Eqmlfg 7vkWA TNBB0TCdao FjLhE 3+8fL2uwhn Pa1Hi 6elwmwDLtS LK9+b k5i1SHuWWN 1t/Jx M1hvhc7BFX yg5f7 8+mqbKfKYi d1prL sj5z/auTk+ FdfH2 0hFnQ3b1sQ l+T2H dazJiOk1em sw7mc jdLfGqO9dI 75px0 GOz++Ozg5u T0+2c ckKAtsjhiP cxvOC vIZM8ptpLG 5bxqX 2qU10dEZpo TDHXQ jwfAdjCCm2 esRdB xup4gXiB2G HTYT8 RVX8+T7J4s 1Tq9m 7p6acStZcY kK7f3 XP4yLU4y12 pnrY9 k2CQA8GPRn G9Wzq ET7w/SwRrn hSjJd ZLGOPcZFXU ZKXyu vfYBO9KIZs z6MqU Zok+RN3a1x QiLuX wa+DqI6k3u wZz8S qpr54zBCkT IF8mU 1jBZW2hvZ/ gyGYE ENHuWhwVwG T2g9p xFX6ed/y0J 4tRPO uk7nVyfweE ZrmhZ gJBClyUlUM FE02i gj2JIqPcNR Ji3ic aBeNbzbZ2p gq4w4 ambxRE7kii BKQnm 9F/zOLc6nz Mvg4n ketRqvfR+L qAYJE 92G//Ugdf+ SAlNp bxdEFRfBxG PoNGo 3wEzb/DS0g ig2C0 K3oLR59Gj6 6sWna ZbHM3GOIOS asEYw E/3HdnfGpf y+TcR CSKF4EbicR qxVyV qshO87NLqi u3SNq YwhURjAYCU Mrs1z tG4sXiA2wm fup/i 9t767/Ta0Z dP1s/ WLlIAGe+Lk 9hf9c uB9Bd/XVCA c25j1 i6fKVwbFNL qTRdf yGILgGP+WE QRj4g uZU/bIljbd pyd5I d6vx1USI3D aIdy4 +7kixClvWJ WYNsY OdbNZ1qksG mLznh iFuvzOjdJX /awEW JGh8YyDGOx zbfVL 5V+tyTYT2y sc8KH SVCO2RRNrM aTjxg GbCWvxWuxy KfCZ/ /C/U38G2TJ w6bH+ XMkpdfyMVv T5X2q n8S8QJIQLw pn332 bx2f32abFU xy6Tv npGBzH+zeW amhdS mBbzPnrW/d /Ityt pwoGfrN/DB 1+Ec5 dEgRjbBQRj SzbwD RVEGKiCq8t 5XelB 7hwZoELzru +40V6 UCNbmcUbed 1mqvj x6fN4O57Hg vQek9 dY7jiTBWFI vvydv WcODnpIrSk gvaX/ i/lxAMLBfc dZeDx m3rBlgCsLT RL5oM uNcGdUaQW2 mqCWR SEEj8+EAo0 lCNre C4JXPEFOoQ Bw19O +AjtgELZMV f5AeK Ifvm51PhUB +TNg8 xHnuSttdFz 3fBkw oN5TuM4bF0 1RtjS GwPXAkzqh0 c/T8r jtiDPCqEGQ VdIA/ +/rZAhhAJB SHCuA MkfPlnBZJ4 xIYAC OWXj7hj2QU NYSQB BjtJu+Lo+z VUl0W eVMUinmhD5 QYhxA cewsFgqFgC D1TjU Vjd4awwaS8 sFUEL IN9xuV+SY+ LgYwE CztPtWrLDG 31UXp TVQl0rHbYJ uNPBk bj7e58/DpF eaCOC e0T6ZH/vY7 E7oBA PgcntWIq7+ TV5W0 3AEKJBPoDC jskN/ /UpaVRrE0W u0yPz Z0KULSseT0 KKwIc nLp5ECdpIB 6cfDK UA0l/k9gKR w8vzN 9NCDLyu8kW M5Sre b8DCOVo0lr MLD98 cHtfhIUBXd E3g0c x5GaG+ZzsQ UflbE p7C00FTgch aX7et 7rqrbpf7HR 2331z pGtTRN+tXJ /74mV DfJuF1jNBW xbvz0 7b7ZNDRAr0 KD+UT 1bmWi4MriZ dhf2d Mz1mPJaBkm 1uHGM +F/U27adWc tswHD V5c5efgq+z pydXJ FvLvAo4HqK KJAJr QYyHXe3aKU Evz83 f5XIqmM1xP LeKy5 FViLZxdCoq +fXkJ O0atSCnAY+ CTq3t mdm6Gh9apC i0KUT fixSxWIxGF l2JRz Mr0YHCOMfn 3UYJJ Y/ati/RApo 4dikR ob8kraulec x3qAH 11cvTfxpS/ 6DTYF HqOXAB+JYU X8C7m JoFDuud6VR bcSCH /68/1Zhwtq CEBwc LLbVjqZuvn Onaj0 5zH4lkxS4g agr1t kV7doDb4ss 8KuI9 mSkH+OZHVw UaE6w +PiziSvyqL ZT4R9 pqUAS1bKL3 NGz7Z q/y4plMjM7 zyxGV 5c2bzpS48I QhYzI v0NIs9GSrR S/EBZ NSIiDUS0V3 1GHxw e3x+wAP6I9 MpvOQ m0TgUqrafC pX8bA XQHXPvDe0z 9K2aZ LBSl9dkQL4 Iknxc vo1V4u0mnc Wy1GM rf2IosoZkp J0+df prqBd3qTgt ZUz/S 2oqZ2UbGJv d8SRL +XwTi1H89O Hb6xA 98gApFeziO wyasn 8y6R4YzhOv g+GgQ 7rz3f90yK+ od4z9 enlzZkz/yx aQErT Y2WnAQi8bL /67us pMByFfWB2Q Z9zsG zAhIgQDw9l QDqxz Wro6dKJbiu QGeMg OiEYZtt/nS nu1b8 c7IZ6wISr3 7rdX+ oBy0HxHu6F dvvUi mJ9uOY+uL6 5Pz4/ lMpnoVj3VQ fGCkP KNjz4oNcjx G8HJl e3LjSM1nPJ 2ik3M bm4mGSIJcB nYVRS SiEzc3ACIH oJ6U/ 7tXbHl7Bcp Sp9aV fG7X4/OmAu ExPP+ 8xuXD50czM VBVM5 oDRsulWg+l /ueUi 7ktSWa3yEG q5u6f XAQJ2V5IE3 XxLrj gxgVyRcw1M k2Tpe NNMYpp6u5q o7iSZ dHAtYx8pur 7gAv7 YKS+BqmyDX 10sdJ tOXEhfI3qu RQl9g +G7anv2mWP RxMN5 DJJ1Mm0YpO efEVo zchlC3gWeZ TwLc9 Hnjzyod0nf KUaFi aSdfkQ3Qc6 yRihN 3jtCFDQ28d POpAK InNofAwE8q BcoKe N1060hAZ6X 8Fv3h WNGaSlMUCw iU5o7 fFHmuYq+7y UZyvb GjcLsg6P5h CoQf/ UO6ovABcnU FF+GQ EF/9qhB5ou qATio /En0u4S7u0 tm+9M aP92rRofhO RHWrF 62UJUS/b4f L5Jo1 kUJOAOGk5T 4umE2 rE+Ii6Btav qL3wg zK9GmLmDiK WnpSD TaqZojf2Li oFJ+E JcX6n15Mm4 smkWR JVUpxmImto bFGUf 0viqr+4cn1 3IK6j qUxz2RbVhR E7DW1 rMPGAOD5yS 8+43X Yc56W6/Nb5 PWh9m syTCTOzbGb PM+Fd Z5HA/78GAh mXbGV vGkvoyqrd7 z+ulp DwsjHKKqqW pQ40n qlhnhelsoy bAlPZ HiBOc5iScO ddaSq 69tgD15uE7 KBYxx JylqrIylUI Jq0rE GbKuh2LfM9 toe5A 7MjbGe0I2e U8DyB xjiZZUjKJ4 5oi1L IkM0AkzW0O gt2wa MoZdTQP+jv hzR7V QHOzeLFd+2 12yTn sBTw7J3+i6 o+viQ 5zmu0auzSZ lqliB JEWAoTz6pA sNC8d gVaITwZ8OK 4eSZQ 4XOBdzhrvL WCCQA +C8CxJMsPw dBBJy yVIbkiXlQ4 4xDO0 Nvqmmdc0wS aLuKr +reyRumzWZ 9SNXn nwLQEtPu0P wtIlU u30WKBSvw7 Qyxhr BG7OPoSpus 4JdUZ Ed6nuibX41 DU0WI yne8zijK4Q SLaVy +d0Mbhjim2 qBcqK CjhffZdSU0 dyTWV Fka+f1LMsD L9lHl WxTJ/LmXI8 ZpmuE 04sJFW5Clu BEHIN rdyqEcggAc ziSrJ ed+2IhNTEE mraWx O4gdjbFTuS SwjeB AOKeWPsRHg kxDsC H3bzaGF/pY RByqG q2auXYs5U3 qbwmp 3RAtFUDpFJ B5B1j 0wZb5Ss9o7 CXkOq lk1wNqT0V1 rkRrl qLDk5/bxHo JKk6R qzI/Dneaj0 fyq2c TZPRKgjbFt RFXzA bxKx/4+5p9 KBwcO D0jDbUEvjl UOeKX jpBURERcbn KJhSL R/jZjFcsQ4 3vPLS RZtPs06FlG UIoab hZd2dye6/E l62rr l8jYz7xDIH CvKcS Zw3CISnQW/ iyTJV cciKxUIIk6 dpfih 6D/BKVt2tD lBdrA tOOM6PvcZk wkDYT WRZhiosP1B EoqdK HjDNkkmeTG dde3M EwRuzIGAml vKpCT fnAtXnZCy+ n4Bh+ q62klwriyG zHLrp orLCUXu1oM krYHk SeeFKx79qW RO204 C8XmAy/TwT ALVRb I8NEnHW+D4 laTY8 p5OsmQO7se YGtA7 XvjWHchsyF jE/Ms u2RCuw0WvQ swfwy g/2YxhpW7C egwHB taa7C8YUHg /2PBP 7V+QTQBRCA xlIUQ m/2Pk32KIN OpQlR oiimP/rxIQ gvXy/ ZsMCuRb6ct AN3I3 QmZQk/D/bC 9yhnK hfNl1uSMJI j03ID YuixdYJ3e3 SRu1F 2hyww7D1cy aiDk+ tNuqiI1t+N CPadw 01uEyyJpxi ixVJr nBm605X4vb USPWo oab+vG+Bko GPLlJ pZs6+8G8PG N1yw8 Ap5bkuO1BP 86szS lgWsE5cwRa sBF4m PD264nyQwU ZCTqG EJyFx3UNc9 ZP+xH nzsJ6fbyt8 nlc/A TY42uvrtOG 2ci5R 0LoMoTz4eU kfeCx kL2df50Vjo VO6e1 Hg8nKmRiKm B3ki9 niBGwu8EQg FNo/+ CONbEsY7uf fKPmR qNkRt/TFei Mz5PU vedcltFQ7U y3h4M vkqFAfMNpi sWVzw YTP3h6bLnz F/Rp6 4LNEvaMB9i 5FYGz ttkub+atrl +d3w/ YhmFaoEz4i nsp5y sgoAvdx1xi ZFhpp 32MGa3ofaL J/bvK /3gEXjpqAz jhaTJ DuNg65cBqG hFv9P Ym8KTJg2p5 qQwFC Gj0kRkcfIX cpCrX snLpA9E37C h8RBr tc6ldZbGgj zahal WTJ+32lAJm emsk+ peJZUowZjm E5dT3 bAc8xnSJgf 7y79T ugZKnWRxSv 50PuS BadZwogW44 YFavB jj1Z28rx80 FCL5w uRh+ZFWqT1 FA54B q95HkWgl6T Ol7M4 PR4GvLmqvx 7kfGZ sQV9CgaaXt IUnzQ rZclruOB/z HMhxV S2fukWaCs3 jqpkB 5SkyddW4Xb oID94 AtGWAfj/dD coYBU RoX8OrIB56 7q4YJ 87GwM2giHX geN9N EdhGpqgQ1N 1lSku iSecX4LUIU XJ0ge s59G8cc/oM 2D50r +wASup0iIk IID5w IuCHUkSt4N Bl24L 9r4ImMw9KE AtKEa Lh+g6SlcuG CVx0N iOIJSQithj Xc5Nl gxQ59SyIGp C9yly H9EMlNnabu Oq4Bv tSZn5vvX0H RwjDC hMkkMsWaHR hIKGp 57nqsFweTs mKpqB Ji75QZ5Lsy bKMZ8 xGy1uId8z7 NBbbd ozWqEhAjBP CptL2 pq2DkNYDeL Dj0Nc Xwn7fK/10z 1exp2 RqG9P+GCv9 qK6S2 w0HJcUhDsP HT36p PqBuMqcA1H /FYxJ Fy7gDKVRYp /I18E Uy00BkJQPM US7Og w1/zu88qKr Riitt +biCBM8TKU i3G/6 ZdeJx9hOYa u4g7B 1THAjgC4bm 0ceeQ yFGJRnlI68 7hTsQ +W6YGShAs/ H6T4t hezwNSKZGf rd5s4 jzBmQlrh6T n1dGt lWKIKMEnTK w/72+ V/lkVD9VPk CbiK0 L8CnHdDOGz 1iIiX gbEOH9gcz8 5Pb+N fIA6UgIFGw AmTr0 HoHEP6zu62 0oG74 JVaKmunBXa m1OUg pIdssT1rFV PSBmY w81AG8+4Mr zqYCv 0Oj8DuFnVG cZV9F rqtdn0fDpv M2oa+ 3X6wTb0rlM DknTa 7350r2k24y r51GH dvwOntr50b O13oe 2Drd3aw1fz RZVRV tXU9qcSjwR DV248 dDLP8z7HPT lexnh ffwraqd2i/ g9FUk 0kilPBa9fp lUPe6 c0Fmtd1AkQ /h2BO Js+yqljW+z aMSFL tqFNXfw7dR 0Lk6q oLDfwidquC V1OaK qZO/JpR0CA T+3MD /BKwSOxj2a AIEal gHO7l0Rnd9 p2Eb0 0JEeFZxdyf jk8Eh A5dqkkhrvE AhyyA D3lwBYYkxD 6pjaG 7C8bOWEgj0 VIDS4 pe6EF+zX76 b4gQo 7X6qEX7qll 8Av2r whvK5y12iS XWGwi LdTsxPs1vO 3sfRP qDfabGZ2If TkBem w+f4KqewPj Tho7O cjsUGUO4J0 kcUwy 4cfX1iFOB3 RsB+i oERoEFnvLB 8AkCe IfjegZCWxW sepAm VoMp/Z6G20 1Ojpo 8cE6e4Bloe 1muux QqYq5v3HBu mVOuv mKSVyqfFPj pjSi2 8lZSkk2+X2 Mt/LT VzTVxe7iOt oUjjB 4k8ydJwJbh L29yO wLgIQI1eMa k8C23 XNN4NmFuu1 rcVwh CY7UmOYJwp A1lDo 2eeI3qhW7T a2GcA J18Op1F7gL AaenI 127U67hTfn 6LxC3 3qIYEjhqiV mhrUu 61F/nJbHjx GjQps pcF7yO+uKe 9jqNR MQbKXhCZ6o qryHB Wab2ET1eUx SE4yh 4WTztNP9Eo nQXK2 9B+GerSIeY j6giX bQ+rgh6ndd TqMg6 6tzBXfCA1M kKkRh QavQDGOvup h/sSY nDHZokpRUx WtPSC mCr6QAyB5S X1BBT TrboMlZu6o kVoaq EsLnaxkkgx elS5g xOTjA5ShO7 zI5yt LQ1uzC9qRC 6cuuw CgB3Pes/Qq lFdOB JADUguf4Rf h6AJA plbmRzdHJl YW0KZ H3zv8VpKtU 0IDAg p0LyBee9N7 NvbG9 jH6ItH0PnG GV2aW IbL0MixW6W ZWlna FXpNcuiZ2R idHlw JP4DeSUyAO 9GaWx 0ZXIvRmxhd GVEZW NvZGUvVHlw ZS9YT 0LlTZA7X1t pZHRo WGM8Yv8HNA 5ndGg kDqjlBoh8w 1Blck NvbXBvbmVu dCA4P l3avNMyKF2 KeJzt wTEBAAAAwq D+qWc LJ3PZRECJX B4G+2 OKjwplbmRz dHJlY B4UFG1jc5J qCjM1 WUAlf0UqXk w8L0N svN9eX2RqN 2VbL0 xFY2Qxk6Sr IDE4I VOaEm3oI9R idHlw AF1BvVXbMR 9IZWl naHQgMjkvR mlsdG NxA8UtHWOr RGVjb 3QvC3Z5aKG vWE9i bmHeaL4MNF NvZGV SVAZwxch8J 0NvbH VtbnMgMTgy L0Nvb Z0bnxQcH8H yZWRp Q5JyxkFmWP 9CaXR vKQKtA97kg G9uZW 50IDg+Pi9X aWR0a HPcKSTbS19 hc2sg MzQgMCBSL0 JpdHN DOOEVq73lh 25lbn HcAA8MutFb cnBvb WC1TUO0yrS lL0xl slg8cAL4DJ Q1Pj5 xrLRfHO4Kn Nrtmw lUVEfWx2/i JHMm0 bhGWRqatWV zwSWO E+PESEKMii ua0Tg aYjQRjQIaA iKgQN N00/vCqoCA NoLsi 4ACshnDJgF lURFQ UUFAQJRFYK q6kaX baknYQ94Xv 97R4+ t671Xd+tW9 /3vrC W5glXEHO2d 5x2ec L5e8BNBRbe TElfK Hr65/12/Xx aRXhC NUsIeW9Bk4 qOf/y mSp7mD5LSW /NQv7 8Cy7PoHB1n c9NWm ZV0/Ps75Gk RfLFY m3IGjMmWgA oj8Xb L7VYxhMgYc +1few F7pWWztlRS hRQIs JVQwybg1os L3+10 nZb3HfEkSu JZWNY 96/hqbHqw+ Gw6Sj KO33ltiYNF bxM03 88FPXSBKA3 hCDyH 7jEcktrWUL c0CdD br3wZdL8RQ 8rCv3 BjZqbHmaml e12vI dfBPGko1c4 uRl3h GysZnaKm62 /+qbW r/BW0IvLAB 0AkNP 5BKT7uRb0H RQp4C bGBO0IXS55 ojYea fADFeYQiaf zJT4a YtDLEwmgxI 5ID7/ zUZE/JeZUx zo8EG Qj6DiUWiaS S6eJz Dl2z68b2DU ja2PQ GfDy5qT7OL udVk/ Vd8mI8Y2lf yRlQe igcAEJWpqb oXUBm T/DCAwYDrN 1f/3N wWIoWbsRYR 2shC0 OehkBOYNc7 /2xgC Y9GGq9PaG2 tfcdd 7Rw5DCSIsG L/YJd zqnyrrXVpC OPN/Y DhYhb8c37J DY+6Q M91bS1zNRS aCgk1 JK3nlun0va 2ujnW OmIuPrlixG h+ucO 8wjNtUKYJQ Bl+uv v/bJdUaDHk 4rICo pEdGo39v6o 615uS YISz8zWKst r60GB KPX1YaBC8g iIFJj vGHhlc2T+z GkJMJ Uj4P65OKO7 /X+Fy T01Ssun2h8 YUGMh N7ERM9xR7S KECHs XZRCkVwN8j KVxPa ZsOce78F4K RXCkl 92Csv+yfOy mJoCK O+jjEep6U6 vInzd qjPaEgQYVJ lrDFH sl4xO+0cM9 0FqQj rInUHKBqWT Qpxtu H8dxiIVhSI PzCJj hjqXoLIHh1 rD97l k/ooDSjr6k NS6za wrWYq47ZH0 vNOgy gOhGWHUiLv Oa/NZ 94b5QyTwvX wkUlH ZE9O986z0D iCGX8 +5iSZcTlFg wbhF3 PRM46Xepgo +8L9S Rscx316bBX tPDUT CLDePtYJL9 B0s8U juT5lU8k+0 /dlFg wIaPbGDCYT BgfrU 33D+uoOtZW 298Ic fCNNGIZgtI 64QW9 EcnITs0yoC n3BhL BDRnZ3WU1z +Xsa9 TIqTz8Os6x xCY6K Rg0vh2rDS1 KTL0u DAxk0m0+Kz rvwnO smSyi1dw8G vF1fI gEphQ/JV5n Kl1Mr 4+H5P3Rae+ UNKqA wno/OKnmNO JN4Yi lbOWB4S8Kc dh4jF XBCE1y52HT M40Kj emII8ECF59 OGzN8 pZx0bX6MoW ywRkZ kH1tftUlt8 Wb2kS Dtiuoc+Bjm kTjlt czWt4WEc9D gBIDq W7vymbRO7h 4pMMU G1dkfbPD0s wNJMM RD1jS5QplL LRor9 8BBRcgOsdk lImvp QHhH5V2wQC 6ifxu /KShRE9Z8I BIA10 ezPEgrAja8 GuvGZ Eu8Yu+OmaI zNsWD ZyA6tq9Tyc JJr6g qg36T7EdqC iMEpj uBDMHhedn3 U9BA+ XegtlbA+QP NN093 aDCABLHyTd vhECj pJ5ilnR69q BGO8C 9JTDbKkM8r qt9LE kP1DndXGr7 38a/h ZOexR0tt31 8ZSHV Rg9Z2mgeHD HYvAt /CIDJzmg+8 MIdYk x60O+g6Yai GP6Vx S0Il3XuRaA JFN1B I6BxsS9NKU qcj74 CCVBRX20G0 xOVL8 nNZBdmcOGg lspoi LU7waafJHx uDDNU fT8yMfQsBH aCCkr /8Nwc3Xo6j JJ/Az SYoOB6+0G/ DgA1C dogbYe1Tb3 fNADX ZADx3Xioyx mpGBE b/gZGHKZ9y 4YL5e CtcHNBVE35 iTo7+ ZpAXWG736d fnEKT uE4+l+Wlal +UiCr +Ephs69OjU XTZuI IgwyV/vicE 3zIEk tSOX7mWbBE Ou1Aq qpaqt64jNt PWCE3 tjZsFZXeR6 0LO8k B1qiDAn+wq od7Ei IwkV+d4TDE 6MXO9 UNPkVP+5pv fU3Rj y7j/5UkcFR CqSb8 U9wxVKSWiu Dczk7 BEVAa3NxXg NH9rO +vbk6eQ/h8 hAIbb LbMErQUSNV Vxxf+ ivlXfrUAxC k2HBS pMrasznYNq 02B5n C+VEZLtDCn bj+oJ /6lT6AUk33 CwerA xECstrxDJc ApFxi /tq4VO4SMj 9I2E3 kUK97q02tT MHyyA d/janaImW8 Zk3yy rrRo+IHt/E Msrrb Va2pOTHktS 6/aLL wg0en75c8O H5xRe gJYgG4+h9S Xq/Ce 1y1tM5XR8Q Wa3dX D9SC21tmbx VIkJk jnDQ3pnQST f3X/t zciGCchlcx GOFni +LZ4XeV8BC GPD1N zG6XezAZT5 NiSxE fq52iuiKWf Grt+4 DgYZMtHJ/t IzaJt bCMWA7bI0G QHEYJ eRkUE9PRE7 5ENHm uRQXM83p9K ICzcr 2oSczSly6X TWS4r +tbZNtpFgH jVvoM 0UzO9eu4zf RkZX0 fjFA9PrsDu ILuWI vwhFekduLp Iq8CP +xwFd7Mn83 mjoMI o+s04ZyIbY Io88l RGY8WDYg+e pnXZ2 OvulAYmIFo 0Ttu/ 5NBdqshj0g MzQ2H B0jho2YGK5 Aruqa CnFSgDoxyQ nAEcB MqTvNh6avp h3KaL O0de8P9TpP J6fkV mw+EgmGXOy l/tqI qPe3c6lHnW UTZMm JyOe7z+K9L V2e6W 7eiqDW9IJY kc22i Sn5GADNEJ7 y9bt2 8P4RGE/Gpk YnOA5 31LB5oXpUW 1+Cpm xK963jp175 IgrGv anvEcGG3q5 jrdgU aM992pRIdN lamgx ave88uwbTj xAitr Rzg1QOqSkY 0Uh4I m+3/mCMnMO cYeyN Zb91w58UwS 8AkY0 gm1zKCxlXv WdUdv AIsrjWU4ZR MSgkP vkBtz7OeIK iOaNF RGejyIsQmQ WldfJ 3+tqtuxOXC +D9w9 9Ynampa+rN nL97c blq+7q8yIm YIiRE YLbnJCO+vH URZQp e+pt4mee7J +VFbE BuPHxaX22O M+qja 6VvKLf4QeB 71wum i2mS6e4VQL dD2oi O5F2PMGBgX LyqtD qtDrUGt5kZ XJhGA XVKbeOjwXJ VpEXm jAKRh4+eiE 1pzX1 5RJLlnXKCq BapSO 942bRh6+Sc ciznk YqczxwkUBx FiBDo BiQyFIs2e+ 0dvbO xFtHhmTkl9 7zQ0d UdqBiZQ0JC 2J3MI We8xl0dnp2 vk13c 7MVUqTJPz5 DAQ8N Iyrze8qv2W RoZIc UFaiII51uJ iL5HY okSKLzUD0d 66/C2 OyS+JCLfO5 6X09C rLMPxatbmO h6/OG LcZ0SArQ1V zQkdF Tg1vSJBMA9 i4GGj cWBf0XRyEM H+PPF f2CBl4OLiE I8mTz +Wj6izlzby yF9bh OFVrcHyjSo cwD0Z 9dPo5+iX0i Ja66T t3GC0WLWZh ZZ4ee QtbzOnRBwU 1Vh5J ZJVCjAUlRw I7tIQ icaIaEmhBx RoSME iUrnB4TvTv FiMSO mwSe/3R5Pk Xo0do ErBjoEkOVX up3IG w1FbdrLXgf 2S3KA 55nsJQYbsk PFnlZ QtmPoWcbXG 3mNQK kLCAP1G5va yHb0z R+gnf9nq18 wJlj5 yVWkyzlN3I QkzDa 0vWnXb8yDa C8gTI 7TGBU9QaU6 +hYQC tjzj9fhB43 yzl3H xF9Ui9pvlz l6mXT ta2yw2RphK 1EEB1 QphUrmK2cU YQqRT 7o8BiibGFz YgZfX 8bTFXZDWmr Pe6B1 5XX3tErcyR iOjxv 8YRwe0gD7m U4TSN bB6bZ8c0Hb 4POMh R9yfp91dMf gcoUG hjPry67Qqi /LGfD n+Nl8KcVHL +CJSd 5UeW0k7LFj StyS2 cdYuYRZ2LU p/7XW KllaARb4J9 yksDF cJ9yPnVfvb ax6Sc /p0sdRN/LF NUXaU jstoyUvxh4 uoDw6 k58Csw6maQ KyX/h sRPX+2Nxvk 3Wliq 6N60yDL8NG trHh7 3kRIand9/a RftQe TguiFKbvGe Uy8Kt KAstCLjskv wR6Za HEGYJKnwie jhRGZ tg+TXkN/ax WC3RG LvYyQNqDL1 07BaX WuO5ckDpDd AJCHF /Maj7LvHbJ 1yMhM +aqw2Eor/L XZ3dc W5a5khTIDx rBOAy KBExIjdL1M bk0jB ypHItGJdKK +sK6t z7T3rYzqwd VK8mP QyvFmIFow2 3YJ5w Nv30Ej9x7Q 5goyp JPW8EfH+c4 htffK 961g4s9KF4 YA6+W OjHW36dYCp MY0cK LntgnemkDZ YMKgM 7VmlGOQl7L lrE9Z 85P7jLnu0i VpuHo fhx6KCyLkm y80jr XApuv+73ML rDyzZ KRM/98S7La gN8jc mtrwYWgK58 YHvOM BMwR/akHh4 AxMJu axWozG9B6w hIyeY vdRI98GO0l uOmxl 5eyQOf9SlN AXH/Y c06NJVNgzo 9AXbz uhsEFbceXi Ik05c 71a3yQCrTq zQZ5g zkuKzb/Y9r a0NKV Yn/HGXGl11 lf/OY yjApT7QIHB f0ECW 7xXiSITuJX FR4ve kwFvuWF3cK T5XbO 52HnToeDKw LKBrr /e2EIJ1TZv ISUlq EdRH4SO46B hvSEd K44QUa82GM /6/dg mWRIs8rGYU L/Oze +/oXJjugse rzcML LMZLt0mvf9 7Q/Li 1TrPPk4m+k QVTXG IOpB8EUAWV uIJzE j2xoHLkg7T Gx6ZW p8BEJ/joqP H+8M5 GrZDAtq7GP ApMdT 0FBe7v4yMJ vmYj8 pPE9YDs2j4 PHkuU 30CTht+ozp pq5GN 9ZE01CCE1/ SigJG uCp2rWMiju RP9ca zlI+mUX3t9 kfX4P JbOvzS+0rG 1HUt0 DJTcpGptbd lHOTT x8NEdVXpYd Io+lP 2abpX00v/H s3z+F tKH0qaTTua x4fP8 mbWlV/XuLe Wj8Hy nzddX4ZN0u 2dQ6+ WfX/lfvo2Z tsU0J TiiVeO/SXU JYyAZ fL1zCS7wz2 r7Isa +xTNzlnNF3 7wH37 A9u8awFpkV ddaro O0tQA9kVvE 1+Alek sP5RU1/h0V O6Eev MLZZx82S6x hO97i 3xhNgNLPyL X3jtF joBVTFjpj7 /M1aI iV+5S2Xggr 2pbYD 0yKs8fDY+W vOuw5 jgIUgyEi8c /e8AC PlpUlKBLEj E6p7R 0x02E3x/1x B8P/O 0IKLqorgxg nJZeQ +nayb0uDnj OJ1zM 31zel/vCqu 7VQ8/ bY+yO2/lico VU2ND 0xQ8BBYTkp uNt5X XzTB/UWkVd 13Kh6 CEpUnJXosY 6dyGx rf/oWkbeH5 FHf/A bd67VKgzgJ 4Dp+q tsyo1fwGWk s0D/W McJtnpI5Mp TtgQ8 B07MIftO0U ALKbm gwiQLKZEtO 8pvS/ 6fTjV6C3tJ 552ot Oitrmt+snv 8PlvB S7CmkrpJhb HJlYW 2GJV5bt2Om CjI4I MXtt8IbCiw 8L0dy m4LuVLtoIx 9UcmF rd3QdohEjF 3kvSS H3ewByR7rb ZmFsc 0PsT7FwIEn gMCBS Vx6sN39rmR VudHN bNCAwIFIgM zYgMC BSIDUgMCBS XS9Ue NBmU0WzH3D vUmVz w7OfL8FuYQ wvQ29 hg7ZZvXWeF Tw8L0 RoFlA7jQGB R0IgM TcgMCBSPj4 vUHJv O4FkjWNgG9 BERiA sFNK2vFUaF W1hZ2 MKIX9AtAFh ZUMgL 3bxQItdGJ5 vRm9u vVo9S6qqKa 8gMjM vEMCUN3bbS iAxID TlWb9BOFs4 IDI0I PJpTj9IQN4 iIDI1 IDAgUj4+L1 hPYmp tB3Z6LS6nh TE1ND cwNSAzNSAw IFIvd LbdYTD3JSh gMzcg MCBSPj4+Pi 9QYXJ lbnQgMTUgM CBSL0 7hMRglEz87 WzAgM TO1XWPnQch yXT4+ RoRqQU6elq ozNyA lZI8mxij0J C9Hcm 14qBg7L3Iu VHJhb nNwYXJlbmN 5L0NT Zs2XR0SMSY NlZCA xOCAwIFJdP j4vU3 AnbWzhLN8S b3JtL 7QiwIQzwi6 GbGF0 NJLmQ79bPR 9UeXB eD5nOKvnrX 3QvTW G9fjd5CnAk MCAwI DEgMCAwXS9 Gb3Jt VHlwZSAxL1 Jlc29 0frWfzyr9T 1Byb2 ADZHOwL4YG Ri9UZ Gq1P4wmYDv lQy9J bWFnZUIvSW 1hZ2V XJM8OQ7QvQ WN0PD slnT5oDVY5 MDUgM zUgMCBSPj4 +Pi9C Db59LvMbSA AxODI cEaqgF9ykw md0aC AyMD4+c3Ry ZWFtC nic08/MNTQ 1MTcw VXDJBwAUNw MPCmV oVCP5byIbe Qplbm RvYmoKMzYg MCBvY moKPDwvRml sdGVy J8CvGHJlOH Vjb2R sT0auldi9x CAzOT e3Bw5mgSIq YW0Ke QqYSG0f69q R/n6/ gkC/2EBF7w uX5KZ RCn7t0mBhJ Me9Q9 UdR6HfWcCl 5LOlC +0ir7z5jjM KosVZ SRFzyIWkRe 4zz8w 9N5jk4TM6D eCpCB j9O5MK9HAQ iYhDF GypweGv9KR +jaso YUlwMQv++Z P5uP0 iNyZOh9LVs eCScQ ouDo3kZclp 6u/Lt +HcX6X8I+C n91+r 06bl4DPBCJ M8uH/ 9f7YIl6+8O /5vcP +Cu3Lc6v3a xiBSh 4nayjgc/Sarmad phV4/ mLFIRqGEEd cNM/k g1RtjAJUm0 A5xOh aUTkF1wEJG SRoct dkVM7+h0ii JGOdr Aod8ycPYMc Ivx0H Exxwfi9BC1 qCzl9 y5OZt1Wfz/ Zg/j0 WTK0u3j84c 20k6v C8Tkh4KJn9 v7+8u 4KjR3m65X5 +Gvxf eB1nSH0euD 5VocS ipfbn4+Bmu Osqfh JHvDAyyh+z hSpUF 16fJmO9yiN 8PR+m Rnom2qOtr4 a8tH2 u7xmGoSkqZ SE85O zNLq9qgOY2 lxWvL 153EgwFlDi NtWX8 Do1nRj7ceM 7Gi2+ Xs6f6q70Qb 1DC7j yoXlzb/LLS 5ixgd PV8ytG05VY X86P4 SzQnk40jas NimKj xV6tyI8TA4 ttE0m JbC35T4qhb y09uL e2a3ftpQ8Y DZ+9R eMvmC7JXJF 1scO1 JpWLI9uSk9 /OL17 t8xhkRLSx0 gQR7j TtszZawV7Y Hei8v mgo562yf3H jw6lF 8m8OBHgrgY oKVor mv2Em4A8kL Yx1KC HKv6G8+zkf vyUrT ctd5/PyBAi Og+RK nflXQ1lWE0 ctzk1 5mESr+9qYG DdGDc Ph5iDji8gr 1Upfp iNFk+Z6z1G s+l8O J6+es3p0kh 4wNjV 6+fhfIxOGU +/2rJ tD8Ujrtv55 Wxa/v J621n2ZZ71 uu4zt ATZCFG+mD5 kVcNQ 6Ta4yVCeLP 09nFY zyT6Ri4rlv dCm9P fjIGZHYRWa X+taP mxS28ybSt9 OKkug XMWDbLGZ8Q A+tHk ZQTknyS38z UbjZ0 GsGcDHo3n9 mtUcM GhI5HC1sDz rSq9a 1o94vW2/Zd jBF9n zsMxofHxYb f0GTa M21jzbiVYp kBClY Uq5UnwTvCo dFGwU wS+M/WvOgC 42TXV SnsHsfzlzn 74Up5 YnCCHCSKeM x8EAR oJ/bO4+WtP /fB2P ziAA4oNG0R UxmS/ BxfoepnFiG vw67k EUcmhUBjCY 0Dp4C cY8O8jeFoU BpNzL /5mUn87/Pw ke4dL fg1+DKURAX P29ew //YBg9e2kj WwOeh txegdtTvwe fDcAN MSqZFIBgG+ qU1Kl BjcgzSO4ye dlzSt hrcaqIhzGc CNWI2 MiVm09XRQ1 PdTAr tH0JyoKT+T RQwfh Fwx5FQeUsd /5fSX DlgUkjQNqw 8iRsQ rWHViGtcGr IEQ1/ dmV4qHOnbv LNEgz OTIszRQqlA mwQKx KtVaJ+ExE7 Bgn5N d8ri0reu3F dCsv2 a5U35HuVBD 04YLM fxiWD9DqNj Q0Hjt J3PPV4RWeE APdN8 0nTjOw0BlR UGHu1 NuIZ3iGNJR POmWT /ma3B/7px9 ofc1Q o/36xXq5t2 Q1Ep6 1kZJnJHt8Y CKq5p lD9qCaxG0/ E0q8B H7twTrpAfC IiZVT VylynjyQDB 0ESCL PUp3YyrHg+ hiyq6 xunIOWBg/1 Co8EP 1wyMwdG7Ie n3GQE BpgvIRwRbc MCooG 7AZmXJpfmz +1suP L197WAODOC hQtpL YO0j7shKJl h2YNA nTKLENgalm ECZMm 9qowtRcsdh PYLP8 ZNIOTfNQwR kGXLH cI09sVrm7s iXDj5 vbXOw3QnuT ZXoIo MkBsrskPIO Km2Wu alROAsNTud 2GLWe iS1qDmhEsn Kze1p 0JiCDFoakp ggquK uDnxSETcRN 0JOcN rQQ4IVN692 TZzxn hwg7xqKNlf x1CE+ IOn6waha7I wVJe7 W5Bi7JJIJm p6tgR T7szJ4WHHk Zh0s3 qVGp4EDDHp au4KL H0Rq6RhzL5 0aHM1 ESUQRP357m OOLdX IGBBGoEzhE NZcGJ YrC5jGqhLo hV6Qs x3ZANcUfej L5K32 O7mwPMHISi Otzpz AzC1qbrEoB lvcV4 HGkK0SewdI t4i6g ouXXqUdLrs KFjMs 2NzSlFydPG 3Aiwp oOQpymKZZ3 Fea7l fckCmchoYV B9ko3 0DF2sPKkPM CWYJW z93x16fDUy aMB2w oXhrkFcrbb xR2WT WvKi0HvdRx wISL9 ADwIe8OSmi HVit1 4/BdS8GYVJ 90HFV qB0eEx1dk3 q4mNX QrJFI5SEkt U7tiw v2fouVYKKX ss5Z0 FRANCHESCA+5OqWXV E7raQ UYw5UM8PFU RJ1A4 ryRtsrkWct 3eOzm K2QPruyaTy ZilZ5 vTMR7b4Kp7 xlwMq TuP27VzuiX itnxM 1i5RHoOtd1 8cfxu bJhHuWMyg3 rofua qBXuuueb6J LfQ7+ SgUsNHHyhD iHwVO vOYzTk/fVI 1bzEA fNbJHgsAQG 2Nt8q vT1R3GX+vN gH+q8 C88jOXu7to mj2Kv 8ZdYvIkyC2 N/8yR k4mQVuUT1m aV3/M XlHgULmQIb CZ4oX hWEEzYyHTg Ed/6t eYHqcvbqk4 IqCJj UTm2n+juI+ k8Kbh pwQHeXF4aF VkoWY teIeELU05O bh9r5 hvwSJpwDxZ ID8aC GCVobFxOcK p5/J3 scQYjOhDXW 8uz55 niEH3BaA69 mlSHA kLxKL+WxjX cRIyB SwMPbRRRyC 3mwQx iTbffrldTZ ZzPED yB51SpfZnH 0WZRz 4wQe6bIB6o oxL0+ /ztyNn8+EE 0ZFSU Ct0t2dQVg0 FI+ET +6iTAoBseb 01hnt Quccx0Yh8n z3PjP ck/Ac6MT2X T549I B876omEL5r 9S6kl KGficTIrX9 t8yFB NeLO1MHlY1 D/oPs mbhU+iMl1s /HYBA rWam9XRetp u35r/ 0vjRMRfe0j +zxQt 1uvTvqvJ3Z n3j5f N3Oxsy/EIZ NVFh+ eM8FHzAOKC 1bs7e /6h3WZ0cZP XwuEq GCSnC/q6Z1 8tNKL 28bb/pYDwe +EcZj yPOx/jLWfW euGs8 CRjIPLCtTX /IiNz xLlHhbnmqF /EEBZ Gw7EiaGYWJ k4v3k 1xGbj1Yqv3 tx7Ho bftiNHOrA4 jNH91 1HdpleGP7X fJNj2 Mfccr0qqdL U+OS7 a3/v2Vyhli 1vtjh 3wiFAqpD0W X7/g7 bqhICtW9IZ uybdt vjfFmFCXBo XjC3b KFN8or1rn+ Rkm8s 8iUH5x/QnQ 1pakU k5DfL/bJ8C 7afO3 3O2yTPESBE vRqPI 87b+F+O4e7 QzXAn HBSUUj0LAT eTHyv k5s+mG0/r4 mEVqd ndAutSlT2p ImmX1 +oefJRO8j9 wTVZ1 DITGP+8waY xH2yv fOK18+b5tJ vfmk7 nSBm2m25SY fv37T nrDiK0wLpj I9yvm IVkzwyWpXR YmUmM gdSyD3R1Sm q2Hhn TETNLo7krn HWeYJ +74mdxV0ho FBcOg d76spNFLjD tDa/z r8Yy2QXk7H Ymy7m pUW9iNTnl9 Ql2Ze nM0R44Yv4H 71VFG GTlOqI/ECC 5GubU /F+NBt+Niy shkD1 /Zr+YKBqCb z1VCk dnca6neOOo UJC3F SXOKngN7G+ kW3kg 6/zR3sN9BH mGyce hT61Uy5tOV 4zKyL 18SX/o9uru wLeqv rnalpOkHLi RcGSJ g3y9Z+RKAX m6pXr g5U9UywgL4 JjoNs VNtU9AjbGG WcCsB jlxMUuc5YC oJY+M fEg3gthJwF X6kXK olUonC9QqV NxZzx kki5M1mgR0 PB3Cx pZif5pAAgO iGPMd EWdiNkHVZ2 91wK1 rbvYLDJtHd V3h34 i+Za3hG6M+ +1x1u nvxrt/D4yX LHtca cm46b06M8i hsOB6 /E+Idm52Pv XpgOu FjkbfgrLmY dzk39 4xJP3hhw88 u81yG rL/JeQWOTa 8Ii70 5oQsBSFy4s f9Pp1 XBSds6Mil3 y3x3J vOOytx4sC7 kYY6c Rls0JW9fBV TQR7t Syf5C3oE9P WWEmN JzTRUXsXpy OBCnS kCSNNdY/bP VyHUx d/gYgIAy0E lNEoD vprRWabaWG CBmtZ 79BlfUH82Q NXUAi DWrwGtejDS 4rKtE BrBaMOyTzu EdnvZ B0xCtKlTlU eSypI gyI0OfXmpH y81rJ O+IGah2bhj aavKG Sukmgx2BFP 1FVkw m0hne5xvkr kjDR1 nv8FMAxYoV 3vQqB bZ80EfkaA9 hlksx +D34BEyzST qiZC3 xUuHSQ5TF7 tEnCD VZ52I8TmP9 yI1EO 31rYSwYWYl XutDn ewSOgxhqA+ HbpDQ ywemUSxa9A unegW z7AC+VyENc ib5pY KFixvSnfnW FjaUB 6Y8sfmSCMK peJux GxC4fDKwHl dppWC 2+CtrHW3Uw Gd2e+ cVZGYkmKD0 Dlaqj 3ZdW6Uyfyh XXW+y F1pFslz+LV We+T6 V6Oqs4hFpC /WScu XirMsUcqjA y9xQR nBMQyu+slf uY9l/ IyBGhYwnSo S3xIR qIkFOUAuxB ATwOM ZQuMl7OsbK MQQXy gLTgcUoIBW EzqHn ASETFkhxOU KHb4d qGGngYUauh QrgW/ 0tRCEvGBTZ 3Q2Qa cVxGljWh6a rzsxN Fd5m5Z4LU+ ITA4D Jd61wNPhTR O+lwg HLdP8ITmgz 3vxmH qEGblEJJeT Mlh5g 0tYo6z1teW uHosH saANCo63Aq hltP7 AOfgJKiWVq p45+d Oe0HPGR+Uq M7fgY dAkvjs7HIj Lg9Vk cfB3qQJWiF 8IQqT 4ECXKtYRHM rMWR1 Pl4iEQaJ9O +aswX lsSh3Z2aq5 M2cN1 bw5f1XVU0w ycybS 9HAasjqYXj RkDf4 DvmFf8UjUr mwpLg +0IWtQe/gN 2cqEP 8CGTMTxATZ kdVQ9 x0hvwYvxDV uw3qu YdQySk2WPK VjvUU G4Bva40cZJ 5RvmA 7W6iMmaqYg 6J5uT Yt9KRfqwNn 0Pute M4/7onlwzx 3b4ur dKO/qie4zX H1/EC utcrAc2iPk Ea3tt L+AmCjqD6T W740K SAFld/DKnm oDEaZ iWV9+F9Pmg N7rn8 K6SccYDGjy wgbaY aKLQ2GARRJ 6dLMA OR29c23ZKt FCq5H 4HCuiDvpA/ B3Et8 uB4EebRF7q Kf2cD sJwg+p2WuU SsSaF N240EtM/2Q k5w6D sdrIW+wNxX kZ5rI MB1F8OQFht LZX+/ RG0InL7gH1 I34H4 hm7um7skPv VNZ0f BsW29OIb3r bo4Ke nmlZNnflYv m3HJe RO/up+ca3K L1mlG 8qEeh9GL0g WTVTb 5Q6FlWemf2 zX//X UKpv2YTsVp xYypJ 7GweCQnBEr l1FG+ oHH4eTL9no 1DbqV 08gmuN7B0Q Lg4fN F0kANtTf3d vMPg/ u1pSmIaoor RzdHJ oDN4QIB3lh 2JqCj P9YLYzo8Dv Cjw8L 1IftB4jG7R hY2Uv KCE7xSVmG3 JheS9 IZWlnaHQgM jkvU3 RexJvyZF2K bWFnZ B8XsQy9JSD vRmxh dGVEZWNvZG UvVHl dIT9KR5AuQ WN0L1 dpZHRoIDE4 Mi9MZ R0rwSygSea vQml0 w5TcekOjmT BvbmV jpXC3Rp0tp HJlYW 0KeJztwTEB AAAAw qD+sLbKB2D AAAAA AB4G+2OKjw plbmR foWDxYC2ZK W5kb2 AyIoM8SMCi b2JqC zt1F7MizO0 yU3Bh W4HmN2eWX5 Jhc2V sBSK7XVGfW l0vU3 NxiNshML6Z bWFnZ R7EONuymXJ gMjkv RmlsdGVyL0 ZsYXR eFHLgd2HrR 1R5cG NuWT2xxfBp dC9EZ WNvZGVQYXJ tczw8 D9XxiVKjjq MgMTg iE8SlxL3nn yAzL1 EwNQVwB2Jn ciAxN S8NaWXpLCF yQ29t rD2zYH26GQ g+Pi9 BsLD7eLNnW DIvU0 7ee7baLvmi MCBSL 0JpdHNQZXJ Db21w z73jztUxNC 9JbnR vihSkjRB6D SB0cn UlO4lxicb2 aCA0M AU8Vd8rrHK lYW0K eNrtmwlUVE fWx2/ yZSXu3bhDZ RqatW VzwSWOE+PE SEKMi gvi3QfsIcW RjQIa HxCfZIT62/ vCqoC KEoAub6TXt hnDJg FlURFQUUFA QJRFY Yu6xfKflez RL37H d97R4+t671 Xd+tW 9/0zeJZ3wv NFFD8 q1o7tqD8v1 NLVYx wMYwyNKp70 /12/X xaRXhCZXxG dX3Hv 4qOf/ywHa6 wL0TY M/USb32Qb5 LjEL0 ow5ZLxAR7/ Ps75G pMtRUAw1UD eEiNp Tlq4IaL9CU wnYcS z+3ktxL9lP YrjjJ ChRQIsDRNa obs4s uL3+10hQp4 ImExT nAVFSL01/h qbHqw +Ly2AvPB26 zraAN GnuL1183MY HUHTZ 5nPRsK0vOw ktrWU Nu3LoNlv6m KrT2M X1cMk8WlEy bHmam ly23pDvwIZ Bnw8k 0zEv6oDecR drGl5 1/+qbWr/BULGARIAN 4SpVD U0XyCA1AYH 6vZd5 LDIq4DfACK 5AZE5 5ojYeafADF eYQia utUP9eFxCY Ewmgx I5ID7/zUZE /JeZU gal6VVGw7N cOFxr GI8pBoBz8w 27r7O Gqy7ZOBpYn 4dD5E LudVk/Tf6a D7M9x hyRlQeigcA EJWpq boXUBmT/DC AwYDr N1f/3NwWIo WbsRY K0plM0Igjq BOYNc 7/8oaMY3EG q9PaO 3ltxic3Hw9 FAIAu RL/YJdzqny rrXVp COPN/YImLv m4b50 LEONARD+6QO02z J7mDQ ZhIjz2GO5w fnw8w g0keyHUaKd Prlix Gh+fxJ7jbM tUKYJ QBl+uvv/bJ dUaDH d0vOKtlBhT a24f8 v138hRQVKi 4wZIn qq76EJCWQ9 YcHI2 giIFJjtBQb uf3E+ aArDKSXd6S 71JRE 5/X+FyL93S kdk5f 8EUFVgL0NQ R2bP2 UKECHsMETH cGgT6 yKVxPaNzRm y81T4 SYBFyd24Ur v+yfO ymJoCKO+rn Luf0V 4vInzdqjPa EgQYV VgtNYZia8f O+0cM 90FqQjrInU HKBqW MZzybcQ0gl qZYfE SPzCJjhjqX oLIHh 1sD21ku/kd PRud0 jGI2vziaTF m49WL 7vNOgygOhG WHUiL vOa/NZ80v4 ElFzx YtuGsURB9R 732m2 UiCGX8+5iS ZcTlF uhubE5HLA5 8Citv m+7P6XGkyo 119rG ZtPDUTCLDe PtYJL 0X5w1ZtmU7 rK9o+ 0/dlFgwIaP bGDCY GTbzxY62S+ uoOtZ D523NfwPSY GIZgt G93RR4MolK Xc4po Bt1AlCBZFx R8IE5 w+Wqr9UBiG d6Pz0 zzMB1WPk0j m0cUJ 7GUD2jJBtp 4i8+K zrvwnOgyYd r7ap5 ZrM0gLnTac Q/JV5 sVq7Aj8+W6 C1Vrj +UNKqAwno/ OKnmN QJQ4PiriZB M3Y8V pyb5jVITWI 3g96I PM93SzxzST 5EKP4 6FXsD5tYb8 pU3Kd KyrNkXgO3u ygFzr 0Xq8uWZfsx oc+Bj mkTjltanLn 6ZHy4 CkLSSsO1cc tbQB9 j0xFWGF7hi llZQ8 rtUXGYBG6v A6Onp KLWar97ABL cgOsd klImvpOZdB 3V3lC Q6ifxu/KXy ZT9F7 LZBI18zuDU grAja 2BzzIFDt2J u+Jenny IzNsWDKqM8 ct4Et bJCi2rwb27 J2Tgx ZiMEpjuBDM Hhedn 3U9BA+Xegt lbA+Q CLM402hHHY BLHyT xrfHMjnL0j qoV57 tENU1H0DXK xIiG7 dne2LGxE7E wpOMs 538a/hOPqg C5vi6 95JIQZIy0Q 5mtxW MHYvAt/LINDSAY Jzmg+ 9QVpUuc60W +g6Ya tDA4HdZ4Qr 0RkFy FNBH4IG3Bc rD8UD Ztuw66BIUI TH42X 1lITG0gYTW dmcOG agcrbsCJ8i xhoBG waUBJYlR7i UhGhB GaCCkr/3Ko f1Ev8 lJJ/AzSYoO B6+0G /EbV9Ebkmv Ff4Sz 7fNADXMOZw 5Ueko empGBEb/uU REEE5 w3RA6dZkqZ CMLI5 8iTo7+FyRP PM942 tfnEKTuE4+ l+Wla l+UiCr+Jpu o59Gq FXTZuIIgwy V/benjy R0oHTisKVU 8iYoM PGv5Mgqvyw x82gS dYZLY9uiAp FZXeR 66LW5fU2kx TEf+w kdn9SzBpiQ +d4TD X1LHW9CQWx SKIP OPERATOR+5p ymA0Koy4h/ 5UkcF KWyTb5P1iv ICYTu lZnog8VDLL l9JvF wNH9rO+vbk 6eQ/h 8hAIbbLbME rQUSN VVxxf+ivlX frUAx Kl0FYZbDao sznYN s44T3qG+VE ZLtDC nbj+oJ/7hT 2XVx1 8CwerAxECs trxDJ cApFxi/hg4 AH6DO h4Y3Q0dXM1 6d71m XMHyyAd/ja naImW 3Ws8vmmjMm +IHt/ OJzidaKk0e NHAky U6/mDXcf9u g93j4 HH2mEzwGRg G4+h9 SXq/Ce4o3p M2BD7 VLs3oOS7LO 87dcv oVIkJkllVJ 3zoRW Yf3X/tzciG Cchlc xGOFni+XE5 FtR0S ECBV1DbD0X fzBKQ 7QuMwXav53 gipTA pGrt+4DgYZ MtHJ/ tIzaJtbFYN D3zE4 UQHEYJdJsP S6MMC 65ENHmsIOH U22k9 LQOdnu4dWx eNdj5 JTWS4r+tbZ NtpFg KjGhuE3KcE 9ke8k kJjDR1xzSV 4ZgkF yILuWIvwhF ekduL pIq8CP+znW f7Lu4 4mjoMIo+a2 0XjGo SWm22wJWO9 URAq+ vtiGG6Prex AYmIF o0Ttu/4LMw mjhi6 yCmL6AZ0bn n1ZRF 5AruqaCnFS gDoxy QnAEcBBdDr Ce7bw va6UdZV9hl 5F4Wa IQ4gaFaa+E gmGXO yl/tqIqKz2 w9qTx LUTZMmJyOe 7z+K9 YC7d1P1dff LS2CQ Pxp76mLy9C VPPIA 7a8qw91Z0X GE/Gp wYfZD670AI 9wTjW I1+CpmmG23 8cw18 3IgrGvthkG tTH7a 2qlmyTiQ07 2hOOp Alamgxhtt6 3gdiN vxAitrKrq2 OLyNq Q2Pm9Kg+3/ mCMnM GiLbwADp37 x22Ae D5MrR9qw4h FRjiX dWdUdvYMzw dVN6Q IMSgkPmhTk i9XvD AiOaNFRGej yIsQm QWldfJ3+tq tuxOX C+U4m87Hvs mpa+r NwO29ghmb+ 7q8yI mYIiREYLbn JCO+v HURZQpe+qq 0sqp7 L+VFbEReRI vjG17 UM+rwz0SnP Ki4Yr C59kalc1hC 5w9FZ JtE7unS6V4 WEROr KLyqtDieYf JWn9j CXJhGAXVKb eOjwX JVpEXmjAKR h4+ei O7xxN48DEJ lnXKC yUbhJM954e Fi4+S cciznkYqcz xwkUB xFiBDoEsWu IYj0l +0dvbOxFtH hmTkl 09iU9dXbnB jCF7R Q1J1OWAf1l w8ygi 6fw64p3KYR kHAFm 2JYJ1YLaet j9dv3 YRoZIcUMkf RY87e IzD7YHckJW FfXM5 z66/C2OyS+ JCLfO 52K32IbXCP xatbm Oh6/OGJjI3 NRqU2 NoRffYXl8m KXATC 9l6CMyoURg 1NLxH JH+RYYa5EY c0SCx PI8mTz+Lb9 beuit azL7pyGMQn cHyjS jptX3Z7mYk 5+iX0 dVn66Hx9PG 6CKJS iVZ5tiVrup OnRBw T2Zd7EICBW jAUlR qT7xPBohiW aEmhB xRoSMEsNgu U9UaO sFiMSOmwSe /3R5P rJs9nmJoFv oEkOV Xil7ASz0Xc jjJIq i6S1SP94nk JQYbs kPFnlZQtmP oWcbX C7wDHQzPBP Z5Y1m vyDo5mD+zl l3sj5 1gPuu6uUGc epcL8 UWztPx2hGp Pj0hF dV1fWN3AVZ E6LqK 0+hYQCorul 9cnA6 8mgw0EwL0D i7nqn qh0nYJxt4d s9Tfa M8CMP7RtcS whU0f BUJhQY9n9J fozAD mEcKbX5zHY XZDWm yXk4Q09DY8 aVshq AwWewc1HKk t9jR2 qV6CXOmH9g N0i0G t1TDSsY7uy y33iC ngcoUGvqJe m88Mc t/LGfDn+Hk 6TsPX O+RPPx5AcS 4f1AH hSfhL1yeCg MPG9Q Ip/7XWZhpr UNb9H 4sijLOkT0w WgDoh uax6Sc/p0s dRN/L FNUXaUjsto yUvxh 9ufSv9k29H bg6qo GKyX/hsRPX +2Nxv g1Nxds8W59 qQO3Q VwbJc17hSW xhx8/ aRftQeTgui FKbvG sSg3NcHIsu CLjsk nhF4QaQLKO JKnwi ejhRGZtg+T XkN/a lOK7EIArFb QNqDL 183PrEZwH8 grCpS wAJCHF/Zmw 1GtUc Z1yMhM+xik 9Pah/ CZG9rzA8l4 rqMBA brBOAyIAZl CvlD6 Dbh8rCsdOU tGJdK K+rY4yl3L1 rUlzh hSO3bYKjjQ mIFow 67DQ7hNv79 Gl7r2 P4bdwjPNG4 KlO+c 1vyvbT173m 1t9BP 5YA6+WRcCV 66oUX eOC4qCFpil nemkD MVQYmF8Wou HTSx0 AnuE2W83V3 tIxz1 yVpuHoowx3 ERnUp oz12oiXVbw v+73M LrDyzZKRM/ 98S7L kyL4riynhm TQmD8 1YHvOMBMwR /akHh 4AxMJurmCd xZ4I4 rhIyeYfvRH 13MD5 jvIyhg3vuH Nb9Mp FAXH/Yv93A FSMcv g0TNcipjwE FbceX sKz25o04w7 gNCrU amGA4yrbmG zb/Y9 ib3FZGXf/H GXGl1 1lf/OYxcVj I8DWK Zn2VLT5jBh SITuJ TFO5tdnhIq zVG8w AQ3ZuL58Gb ToeDK wLKBrr/e3Z KU1NL fISUlqThWQ 3GA82 ShsBVpI17B Rg38H A/6/dgbBVH f4hFV TL/Oze+/oX Jjugs erzcMLTJEO k6kwh 97Q/Li7CwV Qd4w+ kQVTXGEBvW 6AZPG VlYVlOh2ul KBuo0 NCn5WGi0LP J/joq PH+1G4WgLM Ckq7C OOnZwK6HYu 7q6hQ OepZd5pWI7 AZz6a 1SEmaV48RC ht+oz iyu2UJ7ML5 7XSD8 /SigJGeXc7 oFPbv iLI3tqlaK+ mUX3t 5isX1ZMrSf zS+0r W8FZl2YZWc pGptb tdVIIEk0VF yBCnX implement mechanic+lP0aci B26l/ Hs3z+FgKY7 akZYe cc6aQ7rtTs V/XuL qUe8Bxyvdw O8WH2 v2dQ6+WfX/ lfvo2 IyaW3PIzeL eO/SX KUOqHGpO4z AW3cw 9r7Isa+xTN zlnNF 11bC41M4n5 ywZvd FygrcnL3zG X6hZf Q1+LuugU2Q U1/h0 TA2VkxQDZK u94X0 jlT55w6naT gNLPy XK5xxMhzAZ TFjpj 7/M1aIiV+8 R0Stp v7ykXA6sYm 0lNU+ MsKju4pnOY fxAl4 r/t6NLThvI lKBLE vM2w4N3k67 U3z/1 xB8P/O0IKL qorgx gnJZeQ+rqa l9pFf mIM1sI39lb l/vCq u7VQ8/bY+y O2/ce fDQ1ZT9pW0 YGTQp kxZk7ZFxSO /UWkV k70Wi0URpJ nJXos A9oaAega/o WkbeH 5FHf/Ajm04 HIxoq B4Dp+qccai 9jfBJ ms0D/WWkVx zuS8R gWtnA5D49E YxcB1 CALKbmgwiQ LKZEt O8pvS/7eIv C6Z8q X276rbPcwj mt+sn e6MmiHL2Sd lbmRz bRBoEW1GNW 5kb2J rHyY0UUKgc 2JqCj z4H8rlu1Tm PDwvU j8FghUig2J hcmVu V9igCIB6mg VlL0s zLsGfx6WhG 1MgMT wdQNHEHz6u Q29ud GVudHNbMiA wIFIg NDAgMCBSID MgMCB LLD9AhYEbR 1BhZ2 PdGrFzj7Jr Y2VzP WkrK09lv2G TcGFj STs5R8VtWr F1bHR AJ0ZvCUrtM CBSPj 0aHHPwG2Lx dCBbL 1BERiAvVGV 4dCAv LL9lN4AKXG 9JbWF bGRYjZ9doF WdlSV 3hMg6vcGh3 L0hlQ p7pFfEkZSH SL1hp MyAxIDAgUi 9IZWx 8TGE8ZNWuY i9IZU 3tQIJ3MHHu Uj4+L 2cMXytfO4I 8PC9p cHB0LCwiCB AzOSA wIFIvdGcxN TQ3MT AgNDEgMCBS Pj4+P x6RICVppjR gMTUg XEYRF12yEG lhQm9 3RfNrAKC9D TIgNz kyXT4+CmVu ZG9ia hx4TKJiHT7 iago8 AE2Zrb96uX w8L1M vVHJhbnNwY XJlbm F1I7YMId7F Q0NCY XNlZCAxOCA wIFJd Cz9aH7KwnZ lwZS9 Aj9OiU6Vrz HRlci 2WbCV9DLRf Y29kZ O5QgXLqN3e PYmpl K4VdPJK4ea l4WzE gMCAwIDEgM CAwXS 1Ed9XdIZwa ZSAxL 9Ucl261bxH lczw8 E1Kgv0YLHN RbL1B PSp0WKZo6C 0ltYW gvVn9ZvPIc ZUIvS L2tF8SUOC4 YT2Jq GNL8IPproJ 0xNTQ 3MDggMzkgM CBSPj 4+Ce9KQo80 WzAgM CAxODIgMjl dL0xl rcv8lGHpAN 4+c3R yZWFtCnic0 8/MNT N5UIazVYBL BwAUQ wMSCmVuZHN 0cmVh bQplbmRvYm oKNDA gMCBvYmoKP DwvRm fbaYEeZ5Kh YXRlR BMou7DhQ1z lbmd0 qVKxDZD6Zy 5zdHJ vDH4IeRu2R 21v6j MUELLER/x5hQUgy QBrGd uK3u0+0YS1 TWzoa 1Enccbn9fG VaSLg krOq/30nAh nKb3J KiQXL8X/t5 zovPO AQfV4KRZYJ /ppGv QIyBPlw4nB VC8XJ RSfShW7aLm KNfz6 ur8RNNVEEX 5D5m1 DDZc2cxYUR EE3ev l4MllqfsNJ 6Gj24 eMDGVMm9es KJw+U fvZvbDp/6f KPzlD HKvdIKF9yx s+X+C Q+Kseqy0Vx ySyPO uQ0xIYJu/C HTxGk ZiqmqIURzn m6zso yEZMrYl2MC kG5Ty aZ9opLLKBK JgdSr Dj97tTG9qf mhtBT pf5+XCrAvb vzHzJ M0G861uJAm W7ert etr3NVoNh0 E4njl U46GumIo3t fVHOx oKSvhaFj7u 44428 3MfpOmZZZS a71iA iBUy9WUf9M xEc2M 0a5nAS6GAH u6CGk rA849q7/Hd KcWcH iDIISVDqnm L9xLS VHeSAZ135J EDY0X dx450Rmo73 SPu+o bYPm86Vih4 hTOrI bAVUh87z8g fbYsy TcgW108pwJ MnRtf RqxReY3amC r1tC0 AiClVldL7p vJ+sb F59YUfqU6+ RDrE2 uJmEtapbRP NFZdc vIDhQ2SBMD pp9B3 VKX6Uohp6r NZpdj tushJTCgp2 IMDOr vArjPumV+6 DydWM M652WyueFe kHGLg EA5HjYsiZ4 I3YBu LfCj0DVFN9 aO/+L RmXVs7JiSy 1rvi7 N9SD02gVkl H/ytO 3Op1LFhVLf KZqrG bFQW4sT+4L VwOEi yxa5zryonf nXHnG ntYUCAUw9s 2QOE5 S2yo7LHDTc JMke6 7RWOwrjvSW 8zjP7 9vkHcCz30z 27gpL KfFwg85Sm2 wqGXZ 5mFbgXRc01 ytyC+ xKMZDtpVB/ p5z4S pIedaz6+ju X5xu2 goodo1PkBG cpeqN ZCc6vcv4KG fIXZq UZYmzhZVWp 0YX6V mqgwrwwRv0 XtykR l1TK4otG+T ZRFT+ bQwIFZRfZE H45Hr vUARSJ/6Nu u78mB K20VT09Ev5 GQVGu 508bO+Vklf 8MKqG AA9qIdBWGu q7npl 74Rv3Zlde6 tCBVo AEjwqM/uoh b9pUj iJHIyX+RZs UnLb+ gexneshKwK /Ne8B w7mQRmFINs pjZaI q67MmAIsKT p720d qZ2//U7SAr Z/RZ5 DIOzz6fw9g wWE+g l39bICMhSO 70Hrp Z2kqGA5EH/ fkjhC 9EF69ErixZ ef0cN WWe8eC4u88 uU+xg YMUrPy4vsy 2ZHyo tuVrMm+Qfb da0WC wn6vmML+41 tSOnc b0W/u/qWBn gfTIQ ei3VkcEqgL DbzF1 UVEjGW0Sc8 SVSQn Jdf5isZ1pI BoQQQ l1rwNcEFNO zLfly 1FwawcEb/E BEJr/ B2IZUResvQ ZQEja FYAgkzXDjF DLQOs +rk2W6qWaQ InnK9 ijqV579Cnj iH5cK 3EkTqk+j8d eHrlY mQmECmpenE Rmly6 ypudX3JOJ6 kXwfL RPbHrlUSz5 YzfwL AOz/FAplbm RzdHJ lTO3UXG8oc 2JqCj I0PZZfv1Uh Cjw8P i5HYA5rt1G qCjEx ZQIri3MiXz w8L0R ci6WmCEKeH DAgUj 4+QeKjHL9m ago0M mAvLQ9itll 8PC9E BsJ0QCQdCr 9YWVo gNDEyIDMwN iBudW xsXT4+CmVu ZG9ia ne8HYSjDM5 iago8 EL4HPwWeOZ AgUi9 YWVogMzcgN TAyIG 46gSwrUh8N ZW5kb 3SyBvI8VBH gb2Jq Jdj5R9TfIq cgMCB PZ1zSDkPkM TQgMj v6XO43pAkz Pj4KZ S1uc1QlUqN 2IDAg x0RrQmu4Y9 RbMjc uEGHZO3cLG iAzOT LiEjw0WH19 bGxdP q5ESE9sh5N qCjQ3 XLPjb2MwEi w8L0R bMjcgMCBSL 1hZWi QlYpX8XKQu bnVsb F0+PgplbmR vYmoK NDggMCBvYm oKPDw vRFsyMSAwI FIvWF pmBSW9PLMn OSBud WxsXT4+CmV uZG9i yat1YOHcRS 9iago 3UM4PMbV9X DAgUi 2UXHxzYiu7 IDU3N yBudWxsXT4 +CmVu CK2xdra8IR AwIG9 xqrq8IW2EB zI3ID ItTt9ENLbc MzcgN xB3WG02dTe dPj4K OY6tl8CgHr UxIDA zy9XuGdb5B 0RbMj rwQGAQY7jZ WiAzO AQlWOJ9ML2 1bGxd Kw3VMJ6yg7 JqCjU yDULxc0CvL jw8L0 RbMjEgMCBS L1hZW iAzNyAzMjM gbnVs bF0+Pgplbm RvYmo KNTMgMCBvY moKPD wvRFsyMSAw IFIvW CbrMMS5KLU wOSBu dWxsXT4+Cm VuZG9 seai7ITInP G9iag p2EU1JAnUl IDAgU p9QSEeyXVO zIDU5 NSBudWxsXT 4+CmV qTU0pvlh2P SAwIG 3jdpe2FL8V WzIxI LXkBn6VBMc gMzcg DyFeQS23zX xdPj4 TZQ6cw4AoS jU2ID Ouo1ZgPtv9 L0RbM vldVEIRY4a ZWiAz IYLfZID1FF 51bGx xGi4EZI8ur 2JqCj W2CWYuh4Xg Cjw8L 0RbMjcgMCB SL1hZ WiAzOTQgNT Y2IG5 6dNdjCh8WU W5kb2 LySzE0NHJy b2JqC jg4G1GqQkK gMCBS T3vZQkSrSR QgNTk 0ES95qVpyE j4KZW 3we7EyLvZ1 IDAgb 0VvLvz0N4F bMjcg YVZKR2tJAc AzNyA 2MjcgbnVsb F0+Pg plbmRvYmoK NjAgM CBvYmoKPDw vRFsy MSAwIFIvWF laIDM 9VCI9Tokva nVsbF 0+PgplbmRv YmoKN jEgMCBvYmo KPDwv RFsyNyAwIF IvWFl jJWF1KHWxG zYgbn VsbF0+Pgpl bmRvY moKNjIgMCB vYmoK PDwvRFsyMS AwIFI vWFlaIDQwN SA0Mj cgbnVsbF0+ Pgplb mRvYmoKNjM gMCBv YmoKPDwvRF syNyA wIFIvWFlaI DM5NC P1IlVovcRq bF0+P gplbmRvYmo KNjQg MCBvYmoKPD wvRFs yNyAwIFIvW FlaID A3LYW7UySg bnVsb F0+PgplbmR vYmoK NjUgMCBvYm oKPDw vRFsyNyAwI FIvWF jcCKQ2NGZ4 NjYgb nVsbF0+Pgp lbmRv YmoKNjYgMC BvYmo KPDwvRFsyN yAwIF IvWFlaIDM3 IDY1M CBudWxsXT4 +CmVu IT9rtfu9Ey AwIG9 oljp4RP6WF zIxID VbCk7ZUVtr NDAzI NU3JDQfgPh sXT4+ MeSwKQ6rwu o2OCA zJE4whdb4M C9EWz G5KDWwCm9F WVogM vw0WOA5LxV udWxs XT4+CmVuZG 9iago 9GOHyDH1bi go8PC 6BQwT4DXAk Ui9YW VogMzcgNjM 5IG51 oKznNq6WKK 5kb2J qCjcwIDAgb 2JqCj g3K8FlXerg MCBSL 1hZWiAzOTQ gMzU1 KJ42zXekKd 4KZW5 gu6NoNqbhP DAgb2 ZnNbs5P0Hh MjEgM VUQZ0oGDwC 0MDMg NNg9WO18zD xdPj4 RWP7io5OcX jcyID Dqq2FrLqu7 L0RbM rTqEQIXZ7j ZWiAz EuJ5NJAgmi VsbF0 +PgplbmRvY moKNz MgMCBvYmoK PDwvR FsyNyAwIFI vWFla YWV7WRFzNC BudWx sXT4+CmVuZ G9iag n8ULTuTJ9x ago8P U4ZMdX6CRU gUi9Y JDtlBgt8HK Y4MCB udWxsXT4+C mVuZG 0jyml9BYBu IG9ia wu7HP2GUpZ xIDAg Cf1LONziKo cgNTA eXB83jYgqU j4KZW 0nl6OsJht7 IDAgb 1YjQkx7T8J bMjEg IRAYJ3bZZc AzOTQ fYsQ9VJ74s GxdPj 2XFP4tv6Sb Cjc3I BWea8SdDxq 8L0Rb MjcgMCBSL1 hZWiA pIHQoTZE7E G51bG zkLw3NSS6r b2JqC uu3VXNet0I qCjw8 R7FiNoIpEQ BSL1h ZWiAzOTQgM jc1IG 52sKvhRn4Y ZW5kb 4WcPaj2OGR gb2Jq Grw3D2DhUo EgMCB KV6uEYbU4V DMgNT v9LR78wFmv Pj4KZ Y7sn4WnFig wIDAg p5AcEdu6D8 RbMjc wJFUMS6bHD iAzOT TeUvf4AZ20 bGxdP y8IUA3wr0F qCjgx PFOhb4BhVi w8L0R bMjcgMCBSL 1hZWi SeZoN8Zlrz bnVsb F0+PgplbmR vYmoK ODIgMCBvYm oKPDw vRFsyNyAwI FIvWF szAOB1QIN4 ODAgb nVsbF0+Pgp lbmRv YmoKODMgMC BvYmo KPDwvRFsyN yAwIF IvWFlaIDM3 IDUwM iBudWxsXT4 +CmVu NA0wkws3RW AwIG9 zbht0LO6EY zIxID YxAa8EIPdn Mzk0I OC1XAOquBa sXT4+ IrWwEF9epy o4NSA lLU2rgvm1J C9EWz U8CUOcJr7Q WVogM hh4XIB3BwQ udWxs XT4+CmVuZG 9iago 7UzQhDW8vc go8PC 2AQqY2XRZc Ui9YW JlmSdg5DCK 2NiBu dWxsXT4+Cm VuZG9 udyo7UkTsU G9iag h8QQ0VVpW9 IDAgU k0CYTqcGsg gNDgx ND84wQlxKu 4KZW5 du3MuBpm2V DAgb2 SyDls4O2Ay MjcgM LJQU3zDMvP zOTQg IHN6EO33zN xdPj4 LHE4ph3WyM jg5ID Lod4NeDoo9 L0RbM fLeGPEJQ3j ZWiAz KzK6NYdeoe VsbF0 +PgplbmRvY moKOT AgMCBvYmoK PDwvR FsyNyAwIFI vWFla JQW0PVXdKm BudWx sXT4+CmVuZ G9iag z7YGUwWR3q ago8P A1DAiF5PHC gUi9Y ZSatDsc5KN MwNiB udWxsXT4+C mVuZG 3yhyp2PqCt IG9ia pu5FM1BXhB 3IDAg Ur1IQIfzAj k0IDY 4MCBudWxsX T4+Cm DgHW3xscw9 MyAwI D3bcqg7QO9 EWzIx JEOtIq5XKM ogMzc qPZD0LO57q GxdPj 6EGL6ti6Wi Cjk0I CFik7NrYcd 8L0Rb MjcgMCBSL1 hZWiA mFxJ8GMItt nVsbF 0+PgplbmRv YmoKO TUgMCBvYmo KPDwv RFsyMSAwIF IvWFl rQMYjFkT6N TUgbn VsbF0+Pgpl bmRvY moKOTYgMCB vYmoK PDwvRFsyNy AwIFI qBUyaIQH7Z DY1MC BudWxsXT4+ CmVuZ M6kzcf8LgE wIG9i yel4QD6PFe IxIDA fIl9FACyoR zcgNT IaRK32jTou Pj4KZ Q3vo2TlSgb 4IDAg p8KtFob9F7 RbMjE fCAYHP8uMH iAzNy N6LEJpfcDo bF0+P gplbmRvYmo KOTkg MCBvYmoKPD wvRFs yMSAwIFIvW FlaID SxHLG4Lidz bnVsb F0+PgplbmR vYmoK MTAwIDAgb2 JqCjw 6R0OuLxxzN CBSL1 uVRnR5JMFg MzA2I S02bQplEz1 KZW5k w5OzPhSfEJ AwIG9 qehk9FA4TN zIxID ZvQw5SOCcn Mzk0I DYwOSBudWx sXT4+ FpZgEY1esy oxMDI gMCBvYmoKP DwvRF syMSAwIFIv WFlaI QM5NBQdSQm gbnVs bF0+Pgplbm RvYmo KMTAzIDAgb 2JqCj a7P7CjSbpf MCBSL 1hZWiAzNyA 0ODEg bnVsbF0+Pg plbmR dNstPIIO9Y DAgb2 KhIqd4X6Yl MjcgM ULGQ4kXJdS zNyA2 NTAgbnVsbF 0+Pgp lbmRvYmoKM TA1ID Moa9OySvu1 L0RbM jpvREUMU1v ZWiAz CnH0Izmhiu VsbF0 +PgplbmRvY moKMT S8IKNgp5Mz Cjw8L 0RbMjcgMCB SL1hZ WiAzOTQgNT Y2IG5 6rRepLs7SH W5kb2 JqCjEwNyAw IG9ia nl8SO6RNeY 3IDAg Ak4CYBiyVz k0IDU 2NiBudWxsX T4+Cm LkVC6luabx MDggM CBvYmoKPDw vRFsy NyAwIFIvWF laIDM 3IDYzOSBud WxsXT 4+OoWaID7t agoxM DkgMCBvYmo KPDwv RFsyMSAwIF IvWFl hFGFzNYV3B jcgbn VsbF0+Pgpl bmRvY moKMTEwIDA gb2Jq Tza9S3JbZq EgMCB QX4oITnV2R DMgNT d5RH72pXya Pj4KZ G6gn8VaYbX xMSAw SH7btxi5VJ 9EWzI 3EGTaKd2FF VogMz tlAnqbTI78 bGxdP v7LMV7lg3Z qCjEx QnSfYR0xbd o8PC9 YGgL4VLBxS i9YWV tiQwe9MYQ4 MCBud WxsXT4+CmV uZG9i agoxMTMgMC BvYmo KPDwvRFsyN yAwIF IvWFlaIDM5 NCA1N jYgbnVsbF0 +Pgpl bmRvYmoKMT E0IDA qs2HdJsk8R 0RbMj ZsVOYNW5cQ WiA0M BHvWXf3VZ1 1bGxd Xh3LNU2lo9 JqCjE nJAEoKX7jd go8PC 9EWzIxIDAg Ui9YW KoaEnf1IGD wOSBu dWxsXT4+Cm VuZG9 iagoxMTYgM CBvYm oKPDwvRFsy NyAwI FIvWFlaIDM 3IDYz OSBudWxsXT 4+CmV cBT1rudhjG TcgMC BvYmoKPDwv RFsyM SAwIFIvWFl aIDM2 IDcwOCBudW xsXT4 +HlNiPF4rb goxMT ggMCBvYmoK PDwvR FsyNyAwIFI vWFla KGY4GKM0HM BudWx sXT4+CmVuZ G9iag oxMTkgMCBv YmoKP DwvRFsyMSA wIFIv VYztIQG6KE A2MDk gbnVsbF0+P gplbm RvYmoKMTIw IDAgb 1TjSdn3A8N bMjEg RUTLP5jRQx A0MDM pSRu8NH59y GxdPj 3SKA9dl8Cw CjEyM TRjXB7yiur 8PC9E GlH8PSEdCp 9YWVo iUqe1KLA1B iBudW xsXT4+CmVu ZG9ia goxMjIgMCB vYmoK PDwvRFsyNy AwIFI vWFlaIDQxM iAzMD YgbnVsbF0+ Pgplb mRvYmoKMTI zIDAg b0UjXcq4W9 RbMjc mQQZSC7kZZ iAzOT MbOHS3WR04 bGxdP e1MXR7wi1N qCjEy NLRwGY3vab o8PC9 GOwK8ZMAlJ i9YWV ogNDEyIDMw NiBud WxsXT4+CmV uZG9i agoxMjUgMC BvYmo KPDwvRFsyN yAwIF IvWFlaIDM5 NCAzN zYgbnVsbF0 +Pgpl bmRvYmoKMT I2IDA zs2IcFln1R 0RbMj vmTFSMG2pG WiAzO JTzTzL0AR3 1bGxd Ps4WJZ1kh4 JqCjE eElEbIX2co go8PC 9EWzIxIDAg Ui9YW VogMzcgNTA yIG51 mPpuQz1VZD 5kb2J qCjEyOCAwI G9iag v1VP7LFbM6 IDAgU x4VULigRly gNjM5 JU24bKgbGe 4KZW5 gp8FpDrIvH SAwIG 8pxpc5XN8P WzIxI QXoOu9ZDTi gMzcg GdMoEX94wO xdPj4 WCJ2zm8IpO jEzMC BxRO2aqnx6 PC9EW vA2YEZjHi2 YWVog MzcgNDkxIG 51bGx gYd0SLZ3hx 2JqCj PqDYRcNC2t ago8P H5UNaL3FQR gUi9Y WVogMzcgND UzIG5 4eCxbLn4LS W5kb2 JqCjEzMiAw IG9ia yf5MI8GOrB 3IDAg Pt9HNFwqEj cgNjM 8WS09iUlyZ j4KZW 1pj9IaHlGy MyAwI B4icuc7XY0 EWzI3 RSOxYa0SFK ogMzc hKjmzRV69o GxdPj 8WFD3vc4Mk CjEzN MHxLS9nrea 8PC9E WzIxIDAgUi 9YWVo oUibhOoN3Q G51bG vtDh4YAT0n b2JqC jEzNSAwIG9 iago8 OW9SQkPdXU AgUi9 YWVogMzcgM zEyIG 64pHplNy8I ZW5kb 2JqCjEzNiA wIG9i kec3IL1XVn I3IDA vHa4KGGxbV zcgNj v2FE72aIfn Pj4KZ X9gf3RyTwN zNyAw VY7megg9TI 9EWzI 6TCIvGj2IX VogMz y1RUS4BkWn dWxsX T4+CmVuZG9 iagox MzggMCBvYm oKPDw vRFsyNyAwI FIvWF clOEE7RKN2 MSBud WxsXT4+CmV uZG9i agoxMzkgMC BvYmo KPDwvRFsyN yAwIF IvWFlaIDM3 IDY1M CBudWxsXT4 +CmVu MA2vuqumHE AgMCB vYmoKPDwvR FsyMS AwIFIvWFla IDQwM bO1BAGljjY sbF0+ PgplbmRvYm oKMTQ sDIWix9WgF jw8L0 RbMjEgMCBS L1hZW gIsWbF5ITg gbnVs bF0+Pgplbm RvYmo KMTQyIDAgb 2JqCj l9Y7GzVbNa MCBSL 1hZWiAzNyA 1NDAg bnVsbF0+Pg plbmR vYmoKMTQzI DAgb2 AcHyk9A6Hq MjEgM VOTW0eGGyE zOTQg PiY1AO99fL xdPj4 QBZ4er7NuL jE0NC NdZF5nhcm9 PC9EW zIxIDAgUi9 YWVog RIUaDIC6JO BudWx sXT4+CmVuZ G9iag oxNDUgMCBv YmoKP DwvRFsyNyA wIFIv NXnvJGP4MM YyNyB udWxsXT4+C mVuZG 5rvbs9MqWn IG9ia wo3LM3WBB5 lc1so G7DpBCQlNw RmLTk wNWYtNDRkM y05ZG E4LDCnDMSq YTZmM 3F6JJbnJAV gMCBS AF8cXRFeMQ FhYS0 wODdkLTRhZ jMtYm RwAe6jQTGj Y2MxN zkyMmEpIDQ 0IDAg NqbkRjW9Qt ZlNTk jPydcWX79V Tk3LW M2SYRxHoKk NDkyZ WNjODQyKSA 0NSAw XDXbH3G6ES E5MWZ mFMW6HbPxM GY2Yi 99SKRjJJY9 ZGUyM zBkNDJmOSk gNDYg RZJIRQ50MO VkYWN aPO07DyfuH TRlNG ZzTRFsNL64 MjQ2M jP3DnUaHUY pIDQ3 IDAgUihfYj YwM2J lEfJfGmE6P S00OW QyLThmZTEt NmFjN rCgUUH0VDM jKSA0 OCAwIFIoX2 E4OTh rJXWmNQB5U 2EtND M4JE4wBnWc LTBlZ LR4KBG9Wqu yZikg NDkgMCBSKF 82Yjk 9GNZkRZ17I GMxLT U9SxnlGANz ZC0xN rnpLJM0QTJ xMTgp IDUwIDAgUi hfZTh jEIS5AUAuZ TZlNC 51DrXfKFl5 NTEtZ GFjOTVjNGF mZDA4 OPO4MUNyLV IoXzI zNWRkOTllL TM4MD TqDADdUX57 NWZiL XkbPIy8ISK 4YTdl MikgNTIgMC BSKF9 xQNZaTGZ5J y1kNT QfRIX5SMbj YTNiM e4tEKOhDcB yMGEx L8HeLTToWD AgUih sRCZ7OxQmS DItMG CmIC42MDLo LTljZ DAtZmMzNjQ yMjRk XgI0UTC7FT AwIFI fQ9P4VjOaU jRmLT FmNzYtNDJl OS1iN oL0EWKfEAF wZjY3 FTL2QVbrYO UgMCB JAL4xRNHwE WY3Yi 1iZjcwLTQw ZmYtY Uy0In0vZOp wMzMy MzQxMzcpID U2IDA qDqnnBPB9U zhmOG RmLkLqNj68 NjQzL WIzNzktNTl lZGQ2 Zgz4QPK1XZ A1NyA nZRNzM0PtR TgxMj J4EJRyB4Rk NDk0M z26MBSpDGA 1Y2I3 MTBlZDYwOC kgNTg gEQFQPG1bD ThlYz IiSK9uYkIv LTQ0Z MUjIKI1BZ4 1MzQx HiI3HKS3JV kpIDU 5IDAgUihfM 2RkZG ExYzUtYTVl OC00M DcwLWJjZWQ tZGYx JRR3FyB1Lt U3KSA 2MCAwIFIoX 2Q3ZG JiNDVjLWJj NTYtN APhGV67MSL jLTJm XQQ3UWCkGP IwMyk gNjEgMCBSK F9iMT CcLJr8Qm89 YWUwL TQwODgtOWR iOC00 ZDIyZTBiY2 EwYmQ pIDYyIDAgU ihfZT JiZjAxNGUt NGI4M W84ClSyTOn jMzYt AOZoCVc1Lg ZkYmZ qMTI5GvYrF FIoX2 RnGZP3LYR6 LTA2M PDnAJN9Xw0 4OTI3 QRQ2Ycr7I4 NjNTc 0YSkgNjQgM CBSKF 5gBUA7QQW0 Ny1hY zMzLTQyODE tODY0 FA2eHuLyEJ JlOGQ 7DzWtWVF4B DAgUi dzMQp6HkGv N2QtZ RBbAf18BMD 2LWI2 WDidQaJ2Jc gzMjZ pHTIiJYU9P iAwIF GbN7I0TRSx MTA3L Jn2UqNrPBT xMy05 YLjuPGH2Ec E4ZmZ hMjdkYykgN jcgMC BTZK1oMSzt OTU3N t57CVj2NJZ 5YzIt FDNhAy21ZA ZmYjU 3ZGIzNzUpI DY4ID AgUihfZGY0 MTZlM sKpWIK7Hf6 0MjJm OHB2VvFpWW E3YTN yUtOrQBR8L SA2OS AwIFIoXzc5 YzkxM 2FjLWNjZmQ tNDFj NU54YBMiXH c0Y2U zMmFhMWEzN CkgNz DgIGBINU3e ZDg1Y fXhYe3bR4T 5LTQ4 YmUtYTgyYS 1jYTk 3NzlmMmVhO TgpID cxIDAgUihf MjkxM GCzZ3JqSlP xZi00 RuEjUUT1AS ItZGM 3LNf8OSMyF WMxKS S1GtSuTNSe X2RhZ jBiZDZjLTc 2YjAt ZBD3VP9iEs VlLTg eXvF6WOExO mUxZS kgNzMgMCBS KF9hM aW3BHK3UY6 mNjEz LTQxNDctOG Q1OC1 xRhOjIAL2Y jZiZm QcPXz3GTLp UihfN zRlMWFiNzE tYTYx OP69POE1MX kwZjk tOTYyNjkxN mQ0OG Q1DKA7PZDz IFIoX 8M3N2B2GBN 0LTNh JIHwVJN4EG 05MzY cLFCoLHA8W TFjZT hjZSkgNzYg MCBSK H3rFUOgNRH 4NS0y OGJhLTQwMm ItOGU uHm1sJIDnC WFmYj RkNGQpIDc3 IDAgU fxuF3CeNTf 4MmIt HwJ0Fj76MI NmLWI 4O8SdRAS0S TY5MT H3MSjsROO3 OCAwI FIoXzYwOTV kMTY4 VHUpA3NqBX VlMC1 lNaS1MRGuP jg2NT R0VkZ3NXxf NzkgM AGCUB3bELG 1Zjk1 Lp92D1E2ZZ RlZTE pQLSiHi04E jI4Yz S0ElCuQUGh IDgwI DAgUihfMGN mYTU5 ZDUtZDMyYS 00MjM 7ZAK7WmWxC jdjZj I0ZfAdJWR6 KSA4M JDwJPSzJ2V 3NDhm MJOdHVO5Bz YtNDR vUt05MuB9P ThjZW MzLJKhB6Uh MikgO DIgMCBSKF8 0MDAw SFD2Cr15Lc MwLTR jNDgtYTdlM C01N2 MqCLH2MGzr MTApI DgzIDAgUih fZTIx YmIyODctOD g2Mi0 8Z6NsMXi1H TUtZT K7IJaoOfQ1 YzUyK FN9SAUtMPP oXzM2 YzU1F5YpXE IyODM kKOErZn67P DE3LT MmWCO4FiRb YmFhM CkgODUgMCB SKF80 YyW8Vmh8Ig 1mYTk 3PQC0CEWhS TUzNS 24EKA2AWZm NTM1Z FGtJMd3HSB gUihf JKS0SPS9Cc QtZTJ oWi63LEWgN WIzMz YtNjhjMWY3 ZmNkZ yFuNPM7IpC wIFIo RcE3FJNeMi gwLWR yHLGzPDG0P y04YT Y2ZACpQZsy YjJkN ThkMykgODg gMCBS IY30JoAsXn QxMC0 1NjMzLTRhM zQtYj VdFU5lBKG3 MzUwO AX3ToZpEUi 5IDAg UivhPZA3Tb M2ZTc qNTX1Uu18W Tk2LW H6CBqwBlZq OGM3Z mFlYTdmKSA 5MCAw IFIoXzljNT A5Mzk lBSJ6Y9AvA GI4Zi 05ZDQxLTBj NjkwN GRkNWViZCk gOTEg UIGSDY61Vg dlZjU eMx88KizgQ TQ0ND CkXvIkVN3w ZjkxZ jXuFkW3QFH pIDky IDAgUihfNz UyYjA 2I2NnEJD7X C00M2 QuNGr0Navh ODgwN DShIOo2KOB 5KSA5 MyAwIFIoXz A3ZjR vKwX1MBN9P 2QtNG P5OH53QvLc LWI3O Jn1EaAdQQJ 4Yikg OTQgMCBSKF 80ZDA 0VggcGq7uR jE2LT QzNzgtOWUw NS0zO Zs7TaKyBCR jZGMp YCy7QULmWa hfZTR jNzFhMDEtM WYzZS 00NmNkLTll NGQtM WMwNTkyZDg 5NDM5 YVI6IjEvYK IoX2I zMTNmZGMzL WY4Yz OmNXAsWt90 NDVmL IE3BAozRNZ 0YjBi ZSkgOTcgMC BSKF8 1NDFlNGJlY y03MG ZjLTRhMmQt ODBlN f29MmPiJvz 3ZDBm EdVzYRa5DQ AgUih aHuM6DSE1Q zMtNz wbYY28GSRq LTgxY IAlNlNjI5F 0MDhi Qbj6BVX4OY AwIFI oNjp2CVV0X GZkLT D7EkUuEEW3 ZS04M JPuIMWwA9L iNWE5 NjUzYikgMT AwIDA gUihfMzVkM Dc4OT snCdNfZj89 M2NmL ThlNTgtMTY xMzA1 NGMzNTljKS AxMDE zLOFBJD52R TI4NG KoCl33Y5Ll LTQwO GMtODhkMC0 xNjFl NOD7AUxySK ApIDE wMiAwIFIoX zFkND arTxk0HVQ5 OWMtN ZGhOh3sSZH hLWIw XpZuXgV3WM dlNik gMTAzIDAgU ihfZj JiNDMzYTUt NmJhY O22KELvXHe 3MzEt ZEF5ALU4KZ ZjYWU 2KSAxMDQgM CBSKF 5sOcEvXiq6 ZC1hZ vj1WQZuPWY tYWU2 Sk35KmL7BP BjMGZ lZDYpIDEwN SAwIF ByS7O8ZHNz NzcyL TVkZTctNGU 0Yy1h CTG0VAm8VU E4NjI 4ODMyNykgM TA2ID AgUihfZTVk OWMxY oruXpO1LC8 0YWVl LWIxNjYtYj IxNzc 9Q8X5UrTnZ SAxMD lgRQSZMK1e YWQxO WHuPa6xEbX zLTRj HwIpMbB3Or 00MjA 4OGZhZDJmN mMpID EwOCAwIFIo X2FkY zUzYTRmLTZ lODgt RSV8RT39GU hjLTQ 4YmZjODIzO GZiYS xuQQQ0SAJo UihfY jFlOTliMTc tNTc5 KP51StU2XG JmMGQ eNwJqUZS1B jBmOW ExKSAxMTAg MCBSK M2kMPUrTeC 2Mi01 NzdiLTRjND YtOTM 4TJ9hFsQnQ zBkYm RkOTQpIDEx MSAwI FIoXzhmMTl jYTRm UFP8ICkkLZ I2Ni1 tRAAsOBI7K Dc1NT PfY2SlUXej MTEyI DAgUihfNzU wMGFj ACxuEhD0MH 00ZTA vZEu5G1HiZ WZiYW Y3NXGtIZSz KSAxM TMgMCBSKF9 jOWE1 CLL5EP1pBJ EwLTR zB2GjGYKoH C01ND KbBEG9E4U9 MWQpI DExNCAwIFI oX2U0 BRh1OFgzFK I4MWU oLEFqYZ82X WI3LT ryXSD1TEMh ZWIxZ LikJCG2GWA gUihf IxbfLGN0Vw YtNTQ 0Lx86Yxi7X Tk5Zm EtNDhiNDJi ZDkyY TJmKSAxMTY gMCBS KI6EKRoqRK h5c2l jaWFuIENvb nN1bH QpIDExNyAw IFIoX 5J6YIJqAqQ 2LTVj YmUtNDJiZC 1iZjh fZGC4RrIeO 2EyYT kxMikgMTE4 IDAgU ihfNTdjOTR lMzYt PlXzTP43EL k4LWF hZmItNmIwN WFlOW QzMDAzKSAx MTkgM XODHO2aZag zNTli Qa78V0IvJO Q1ZjA bWZF9Gw0kC 2ZlYj hfIMK7WTDy IDEyM CAwIFIoXzZ mNjgy PQI3ZMFlZ2 QtNDd pTy50WNq9G TkxZD IxMTkxYWE4 YykgM TIxIDAgUih fNGMx ZDRjNDUtNz QxMy0 0AHK8VPUdU WItM2 PjDMb2RqLb ZWM0K SAxMjIgMCB SKF84 YjEwYmYyYS 0yZTk fEKA4JHDeB jkzMy 1hOTNkZDNl OWI0M TIpIDEyMyA wIFIo XzZhYTJkNj BmLTQ 1YzctNDkxZ i05Nj gyLWEyOGI3 MThmY zkyOSkgMTI 0IDAg UihfMzJhNW U1ZTk eUtScEt70Z GNhLT ljNmItNzk3 NDVhN zgyZDAzKSA xMjUg SZXNSZ1jDl Q0Mzk mMw4gHvCkA TRmYT vbAkg3KH63 N2Y1O ZDoVGY5EIQ pIDEy NiAwIFIoX2 NlNzd iZLG6TWQ3I GEtNG F4YK7gMZFi LTVlM TFjOWQzMTM wOSkg SMU1LEMwHl hfYTh mYzAwYWEtZ WY3Yi 76JZC8UNz2 NDctZ DV2Cvh3OpS kNzY2 KSAxMjggMC BSKF8 7QVK5YLSyN C1hZj VmLTQzYTkt YWIxN N32UQF8ObU kNzZl YjUpIDEyOS AwIFI jTfS0CYl7O DE4LT h8V6OzJVfh ZC05N GRkLWRjMmN lN2Mz MmIzMCkgMT MwIDA gUihfYTYxO WFkOW XcVrAbKL92 MGQ1L WIwNTYtZTU 5MjE1 OGJkMjNhKS AxMzE wFADNJE74T zhiNz QrVX1jPYTl LTRjZ TYtYmJjNy1 jMTJh ODFkMzNiNG YpIDE zMiAwIFIoX 2E3ZD QwMDIzLWEw MjItN WIhYc81HxF lLWYw EVc8E5K0Ey Y0Yyk gMTMzIDAgU ihfMj W5FvAkGgLr MzM2Y G45GhKqSJm wNjgt CXg9TuO4F1 MyNTA 0KSAxMzQgM CBSKF 18TOL2ZOx8 MS04N NssQUO2ZRU tYjFi Bu69KDSfGP kzNWM 3ZDcpIDEzN SAwIF IoXzQyNjM1 MGY3L WMyOWItNDg 3MS1h Xzt0ZXb7K9 IxZjd iODZkNCkgM TM2ID AgUihfNGM3 MTVlN GNnQTS1BZ3 0NzA5 RFz7MlDfQI YxODV zYFJ9EbK9Q SAxMz umKJSUUT01 ZDEyZ YVxIV40TFY lLTRk JVHxANC4FY 04NjF jMzdlZDRkZ mEpID EzOCAwIFIo Xzg0O GUyNzJiLTc 1N2Mt UEZ9UW10TR g2LTh lZTcwNjIyZ DUxOC tyPEW8MJJt UihfZ KX3JHD9FSS tMzdm Tp41NIpmZL FiYTk tNWQwYzNiN mQ1YW QxKSAxNDAg MCBSK Z06ECDrZeT 3Ni00 MGVkLTQwZW QtYTE 1Sg6jDLQaC jRkZG YyMjcpIDE0 MSAwI UTcWqG9PQZ kNDRk LTMwZDQtND E0YS1 iNjgxLTZlZ jEwNj acIFN1Mhtk MTQyI TDlBfrzZ0I 3MWFi ZLMrZ8R6Ua 00NzM 7VEp3ZpKxE jEzNm Q5P4JcPTL5 KSAxN DMgMCBSKF8 2N2U3 OJYmSU30BK FhLTQ 5ZjktYTRhO C1mOD S0E9W8QUWk MzIpI TF0WAFbPOK oXzEy XeC1WNJjTM E1ODI cZVLuXG02U WMxLT l1AuCkUYWs ZDY0O KlpKVN4JUZ gUl0+ PgplbmRvYm oKMTY gMCBvYmoKP DwvRG LuzJmZN55M LVBoe HHxX0nnynH Db25z oWx7NH0RhM RsZTx rIORdUUN9W DAwNj zfWCc3EEZ0 MzAwN jkwMDYzMDA 2OTAw NjEwMDZlMD AyMDA wNDMwMDZmM DA2ZT AwNzMwMDc1 MDA2Y zAwNzQ+L1B hcmVu dCAxMiAwIF I+Pgp lbmRvYmoKM TQ2ID Dvx8HwZod4 L01vZ ERhdGUoRDo yMDIw MDUxOTEyMz kyMS0 wNCcwMCcpL 0NyZW H1oW8pVST1 ZShEO jIwMjAwNTE 5MTIz NBGvPe48Ah AwJyk vUHJvZHVjZ XIoSW JleCBQREYg Q3JlY JAkckG7Xff uMC4x AM28DKO1JR tKQVZ BXVAvUjsgb W9kaW ZpZWQgdXNp bmcga VRleHQgMi4 xLjcg YnkgMVQzWF QpPj4 BYA0yz9AwL nhyZW YKMCAxNDcK MDAwM DAwMDAwMCA 2NTUz NSBmIAowMD AwMDA xZBK7QZCcI DAwIG 4gCjAwMDAw MDAxM DMgMDAwMDA gbiAK MDAwMDAwMD E3OSA wMDAwMCBuI AowMD AwMDAwMzE1 IDAwM NGkNL5nZeR wMDAw MDAzOTEgMD AwMDA gbiAKMDAwM DAwMD UyNyAwMDAw MCBuI AowMDAwMDA wNjAz IDAwMDAwIG 4gCjA bPTYjBUS4U zkgMD AwMDAgbiAK MDAwM DAwMDgxNSA wMDAw MCBuIAowMD AwMDA wOTUwIDAwM DAwIG 4gCjAwMDAw Mzk3M zMgMDAwMDA gbiAK MDAwMDAwMT EzMyA wMDAwMCBuI AowMD AwMDAxMDY4 IDAwM MSnPK5tQdM wMDAw Chn6QOBtES AwMDA gbiAKMDAwM DAwOD cxOSAwMDAw MCBuI AowMDAwMDQ 5NTA5 IDAwMDAwIG 4gCjA wMDAwMDExO DcgMD AwMDAgbiAK MDAwM DAwMTIyMiA wMDAw MCBuIAowMD AwMDA zODkxIDAwM DAwIG 4gCjAwMDAw MDQwN zQgMDAwMDA gbiAK MDAwMDAwOD M4MiA wMDAwMCBuI AowMD IcKRD5BOz1 IDAwM CImAB4tDrQ wMDAw VCN7YgvfBD AwMDA gbiAKMDAwM DAxMz u6JhRvKBDq MCBuI AowMDAwMDE zNTMy IDAwMDAwIG 4gCjA mNYFcVCe3R DcgMD AwMDAgbiAK MDAwM DAxODMzMyA wMDAw MCBuIAowMD AwMDI 4NzQxIDAwM DAwIG 4gCjAwMDAw Mzc5M DMgMDAwMDA gbiAK MDAwMDAxMz g0MiA wMDAwMCBuI AowMD WlFAF3ZWI1 IDAwM TZaLI7uAnW wMDAw LUu3IMdvXE AwMDA gbiAKMDAwM DAxOD G0TJLtJGZj MCBuI AowMDAwMDI 0MjUw IDAwMDAwIG 4gCjA rXDUlOpR1G zMgMD AwMDAgbiAK MDAwM TKfUTY0BrP wMDAw MCBuIAowMD AwMDI 1TJk2YNItZ DAwIG 4gCjAwMDAw MzM0M TIgMDAwMDA gbiAK MDAwMDAzMz U5NSA wMDAwMCBuI AowMD GlTXO3TKM8 IDAwM UBzYL5sGnH wMDAw MzgyNDAgMD AwMDA gbiAKMDAwM DA0ND cxMSAwMDAw MCBuI AowMDAwMDM 5NzY3 IDAwMDAwIG 4gCjA mESJpXvu2J TUgMD AwMDAgbiAK MDAwM OLsZEe4PcJ wMDAw MCBuIAowMD AwMDM 5OTEwIDAwM DAwIG 4gCjAwMDAw Mzk5N TggMDAwMDA gbiAK NQKdWCO6BD AwNSA wMDAwMCBuI AowMD AwMDQwMDUy IDAwM NAzLB2eAhJ wMDAw NDAxMDAgMD AwMDA gbiAKMDAwM DA0MD L4AoZqIGAi MCBuI AowMDAwMDQ wMTk1 IDAwMDAwIG 4gCjA wMDAwNDAyN DIgMD AwMDAgbiAK MDAwM RX5VOJ2EQB wMDAw MCBuIAowMD AwMDQ hLlN9XNYmZ DAwIG 4gCjAwMDAw NDAzO DQgMDAwMDA gbiAK EDTjJPB6PU QzMiA wMDAwMCBuI AowMD AwMDQwNDgw IDAwM ORuKY3gJxD wMDAw JVI3AutaWH AwMDA gbiAKMDAwM DA0MD S7ITJiPWVg MCBuI AowMDAwMDQ wNjIz IDAwMDAwIG 4gCjA hFONpYSU6Q zEgMD AwMDAgbiAK MDAwM SZ8SSmlWTA wMDAw MCBuIAowMD AwMDQ zYkX2UTUyB DAwIG 4gCjAwMDAw NDA4M TUgMDAwMDA gbiAK ZVXpJFB2CI g2MyA wMDAwMCBuI AowMD AwMDQwOTEw IDAwM OVbHK5wEoW wMDAw IMT5XPdnKA AwMDA gbiAKMDAwM DA0MT AwNiAwMDAw MCBuI AowMDAwMDQ xMDUz IDAwMDAwIG 4gCjA wMDAwNDExM DEgMD AwMDAgbiAK MDAwM YO8CJM9RYV wMDAw MCBuIAowMD AwMDQ iTJm2DRBsZ DAwIG 4gCjAwMDAw NDEyN DMgMDAwMDA gbiAK QPTbQYD4JC I5MSA wMDAwMCBuI AowMD AwMDQxMzM4 IDAwM PSxZT0dHfZ wMDAw NDEzODYgMD AwMDA gbiAKMDAwM DA0MT QzNCAwMDAw MCBuI AowMDAwMDQ xNDgy IDAwMDAwIG 4gCjA zEIVkLRY3E zAgMD AwMDAgbiAK MDAwM PD7LLE4NAI wMDAw MCBuIAowMD AwMDQ zFjZ3FSUfV DAwIG 4gCjAwMDAw NDE2N zMgMDAwMDA gbiAK JJEpSWZ1YN cyMCA wMDAwMCBuI AowMD AwMDQxNzY4 IDAwM PNvDH9kGbA wMDAw NDL1DXGrUU AwMDA gbiAKMDAwM DA0MT c7MAMoETXb MCBuI AowMDAwMDQ xOTEx IDAwMDAwIG 4gCjA kVWQpSYX3C TkgMD AwMDAgbiAK MDAwM SS5VxEiKtS wMDAw MCBuIAowMD AwMDQ yMDUzIDAwM DAwIG 4gCjAwMDAw NDIxM DEgMDAwMDA gbiAK HOTnCFM1Gh E0OSA wMDAwMCBuI AowMD AwMDQyMTk2 IDAwM BZcBK5jNiS wMDAw NDIyNDMgMD AwMDA gbiAKMDAwM DA0Mj F8JNGhFCCs MCBuI AowMDAwMDQ yMzM4 IDAwMDAwIG 4gCjA wMDAwNDIzO DUgMD AwMDAgbiAK MDAwM ST5HlBzMyB wMDAw MCBuIAowMD AwMDQ yNDgwIDAwM DAwIG 4gCjAwMDAw NDI1M jkgMDAwMDA gbiAK BMMeYEZ5Ev U3OCA wMDAwMCBuI AowMD AwMDQyNjI3 IDAwM YSnUF5pLqT wMDAw EOH1DqQlAR AwMDA gbiAKMDAwM DA0Mj cyMyAwMDAw MCBuI AowMDAwMDQ yNzcx IDAwMDAwIG 4gCjA uTYRiRDT7K jAgMD AwMDAgbiAK MDAwM SG8Yuw0EJA wMDAw MCBuIAowMD AwMDQ kKNR8EIUjH DAwIG 4gCjAwMDAw NDI5N jYgMDAwMDA gbiAK GXNeUCD7Qk AxNSA wMDAwMCBuI AowMD AwMDQzMDYz IDAwM QCeEU7yMlL wMDAw NDMxMTIgMD AwMDA gbiAKMDAwM DA0Mz V0RYGiLBMe MCBuI AowMDAwMDQ zMjEw IDAwMDAwIG 4gCjA wMDAwNDMyN TkgMD AwMDAgbiAK MDAwM LH1KnUwLmQ wMDAw MCBuIAowMD AwMDQ iWlI8RCRbN DAwIG 4gCjAwMDAw NDM0M DMgMDAwMDA gbiAK NPJtQTV0Tm Q1MiA wMDAwMCBuI AowMD AwMDQzNTAx IDAwM MVuBK8tTfG wMDAw QTB6QXLwNG AwMDA gbiAKMDAwM DA0Mz W8CQFpKETa MCBuI AowMDAwMDQ zNjQ4 IDAwMDAwIG 4gCjA bDCReLVL3D TcgMD AwMDAgbiAK MDAwM HH5Uuz4LcN wMDAw MCBuIAowMD AwMDQ vQcn3ERWpJ DAwIG 4gCjAwMDAw NDM4N DMgMDAwMDA gbiAK OBUoMRM9Ga g5MSA wMDAwMCBuI AowMD AwMDQzOTM5 IDAwM QMfTO7zGrI wMDAw HXS8HGikLW AwMDA gbiAKMDAwM DA0ND AzNSAwMDAw MCBuI AowMDAwMDQ 0MDgz IDAwMDAwIG 4gCjA wMDAwNDQxM zEgMD AwMDAgbiAK MDAwM ZH7TOV4BWH wMDAw MCBuIAowMD AwMDQ 7BdQ3KMKiZ DAwIG 4gCjAwMDAw NDQyN zUgMDAwMDA gbiAK PEBiDGV4XJ MyNCA wMDAwMCBuI AowMD DiRKU1Ksnc IDAwM PXtRN9vCkK wMDAw AJR0WrAxYQ AwMDA gbiAKMDAwM DA0ND X8ROTbNHCp MCBuI AowMDAwMDQ 0NTE3 IDAwMDAwIG 4gCjA sRGDgLTA0Z jUgMD AwMDAgbiAK MDAwM NY1BVJzUHL wMDAw MCBuIAowMD AwMDQ 0NjYzIDAwM DAwIG 4gCjAwMDAw NDk2N TMgMDAwMDA gbiAK dHJhaWxlcg o8PC9 TsoMsBZW5Q iAwIF IvSUQgWzxi ZDhmN jBrG3X1Brd zNWI1 YmExODBkNG VkYzN oCbGcHU02T jEzNz e3IYPiZbuz NTA0Z MT8IZHdTES mYjkw LrI0C5J+XS 9Sb29 0IDEwIDAgU i9TaX dvPHK1Oh7+ CnN0Y QF6fWUgDlq 0OTgz NAolJUVPRg o= ID Date Data Source [id number] 02/21/2020 06:36:00 AM EDT [facility] Added by Discern Rule GLB_ADD_GFR_CMP Name Value Range Interpretation Code Description Data Mariana rce(s) Supporting Document(s ) eGFR-AA >90 >=60 NO [facility] mL/min/[address] [place] [address] The MDRD 4-Variable IDMS traceable Equat ion for non- individuals is used to calculate the estimated glomerul ar filtration rate (GFR). To estimate the GFR for Americans, multiply the [facility] ided GFR result by 1.16. The MDRD [...] 60-89 Mild decrease*G3a 45-59 Mild to moderate excnaubiT4z 30-44 Moderate to severe decreaseG4 15-29 Severe decreaseG5 14 or less Kidney failure eGFR-SUDHIR >90 mL/min/1.73m2 >=60 NO [facility] The MDRD 4-Variable IDMS traceable Equat ion for non- individuals is used to calculate the estimated glomerul ar filtration rate (GFR). To estimate the GFR for Americans, multiply the [facility] result by 1.16. The MDRD [...] 60-89 Mild decrease*G3a 45-59 Mild to moderate jjvhwojbI0q 30-44 Moderate to severe decreaseG4 15-29 Severe decreaseG5 14 or less Kidney failure ID Date Data Source [id number] 02/21/2020 06:36:00 AM EDT [facility] Name Value Range Interpretation Description Data Sup porting Code Source(s) Document(s ) Glucose Lvl 126 65-99 [place] mg/dL [facility] BUN 3.1 6.0-20.0 LO [place] mg/dL [facility] Creatinine 0.53 0.40-1.0 NO [place] mg/dL 0 [facility] BUN/Creat 5.9 7.0-29.0 [place] Ratio ratio [facility] Sodium Lvl 141 136-145 [place] mmol/L [facility] Potassium Lvl 4.5 3.5-5.1 [place] mmol/L [facility] Chloride 111 98-107 [place] mmol/L [facility] CO2 23 23-29 [place] mmol/L [facility] AGAP 7 5-15 [facility] Calcium Lvl 9.1 8.6-10.0 [place] mg/dL [facility] Total Protein 6.4 6.0-8.3 NO [place] gm/dL [facility] Albumin Lvl 3.2 3.5-5.0 [place] gm/dL [facility] Glob 3.2 2.0-4.5 NO [place] gm/dL [facility] A/G Ratio 1.0 1.0-2.2 [place] ratio [facility] Bili Total 0.8 0.3-1.2 NO [place] mg/dL [facility] Alk Phos 115 IU/L 38-126 NO [facility] AST 16 IU/L 15-41 NO [facility] ALT 16 IU/L 7-40 NO [facility] ID Date Data Source [id number] 02/21/2020 06:34:00 AM EDT [facility] Name Value Range Interpretation Description Data Sup porting Code Source(s) Document(s ) Magnesium 1.7 mg/dL 1.6-2.6 NO [facility] ID Date Data Source [id number] 02/21/2020 06:04:00 AM EDT [facility] Name Value Range Interpretation Description Data Sup porting Code Source(s) Document(s ) Neut Auto 55.1 % 50.0-80.0 NO [facility] Lymph Auto 30.3 % 14.0-44.0 NO [facility] [place] Auto 10.8 % 0.0-12.0 NO [facility] Eos Auto 3.2 % 0.0-7.0 NO [facility] Baso Auto 0.6 % 0.0-3.0 NO [facility] Neut 3.0 2.0-8.4 NO [place] Absolute x10(3)/[facility] Lymph 1.7 0.6-4.8 NO [place] Absolute x10(3)/[facility] Preble 0.6 0.0-1.1 NO [place] Absolute x10(3)/[facility] Eos Absolute 0.2 0.0-0.5 [place] x10(3)/[facility] Baso 0.0 0.0-0.3 NO [place] Absolute x10(3)/[facility] ID Date Data Source [id number] 02/21/2020 06:04:00 AM EDT [facility] Name Value Range Interpretation Description Data Sup porting Code Source(s) Document(s ) WBC 5.5 4.0-10.5 NO [place] x10(3)/[facility] RBC 4.71 3.80-5.20 NO [place] x10(6)/[facility] Hgb 11.2 11.4-15.1 LO [place] gm/dL [facility] Hct 35.0 % 36.0-46.0 [facility] MCV 74 fL 80-98 [facility] MCH 23.8 pg 26.0-34.0 [facility] MCHC 32.1 32.0-36.0 NO Luke gm/dL [facility] RDW 18.8 % 11.0-15.0 [facility] Platelet 301 150-400 NO [facility] x10(3)/mc [facility] MPV 7.9 fL 8.5-13.0 LO [facility] ID Date Data Source [id number] 02/23/2020 07:05:00 PM EDT [id number] Patient: MARIELA ROME Age: [...] esophageal motility. She was discharged yesterday b y Dr. Epperson and scheduled for an endoscopy with [...] on 02/15/2020 at 69 Years.Comments: 020 14:56 Perfecto Shelby RN-populated from documented surgical caseEGD - SN [...] r swelling. Cardiovascular: Normal peripheral perfusion. Respiratory: Paula th sounds are equal, Symmetrical chest wall [...] Interp Rapid COVID-19 Negativ e COVID Source [employer] 02/20/2020 16:58 EDT WBC 7.1 x10(3)/mcL RBC 5.11 x10(6)/mcL Hgb 12.1 gm/dL Hct 37.8 % MCV 74 fL LOW MCH 23.6 pg LOW MCHC 31.9 gm/dL LOW RDW 19.3 % HI Platelet 315 x10(3)/mcL MPV 7.8 fL LOW Neut Auto 57.9 % Lymph Au to 28.4 % [place] Auto 9.7 % Eos Auto 2.4 % Baso Auto 1.6 % Neut Absolute 4.1 x10 (3)/mcL Lymph Absolute 2.0 x10(3)/mcL [place] Absolute 0.7 x10(3)/mcL Eos Absolute 0. 2 [...] Impression and Plan Diagnosis Swallowing disorder - [id number] R13.10, Discharge Calls-Consults - 02/20/2020 17:35:00 , Yesenia miner MD, [place], GI, phone call, consult, Discussed patient and patient's [...] Ad reynaldo time 02/20/2020 18:09:00, Nathalia Brownlee MD. Counseled: Patient, Ronal hooker diagnosis, Regarding treatment plan, Patient indicated understanding [...] records my words and actions., Daniel Alvarez MD.02/20/2020 14:12:36 Comment by: Laurence Witt pt gave verbal consent Laurence Witt[address] [id number] al [facility] [id number] DONEcons doneR13.10Dysphagia, unspecifie d0.000.00Electronically signed by Daniel Alvarez MD 02/21/2020 00:31 EDTElectronically signed by Ivan, Daina 02/20/2020 18:27 EDTElectronically signed by Ivan, Daina 02/23/2020 19:05 EDT Name Value Range Interpretation Code Description Data Mariana rce(s) Supporting Document(s ) ID Date Data Source [id number] 02/20/2020 06:01:00 PM EDT [facility] Name Value Range Interpretation Code Description Data Mariana rce(s) Supporting Document(s ) Rapid Negative NO [facility] COVID-19 [facility] ID NOW COVID-19 assay performed on the A [employer] ID NOW Instrument is a rapid molecular in vitro diagnostic test utilizing an is othermal nucleic acid amplification technology intended for the qualitative detection of nucleic acid from the SARS-CoV-2 viral RNA. CD:[id number] [facility] CD:[id number] [facility] GLB_RAPID_COV_SOURCE ID Date Data Source [id number] 02/20/2020 05:37:00 PM EDT [facility] Name Value Range Interpretation Code Description Data Mariana rce(s) Supporting Document(s ) APTT 39.5 27.4-38.2 [facility](s) [facility] ID Date Data Source [id number] 02/20/2020 05:37:00 PM EDT [facility] Name Value Range Interpretation Code Description Data Mariana rce(s) Supporting Document(s ) INR 1.3 ratio 0.9-1.2 HI [facility] Indications INRProphylaxis of venous thromo-embolism: Non-hip surgery..... ..........................1.5 - 2.5 Hip surgery................................. ..2.0 - 3.0Deep Vein Thrombosis or Pulmonary Embolism........2.0 - 3.0Prevention of s ystemic embolism in valvular heart disease, tissue prosthetic heart valvesor acute [place].......................................2.0 - 3.5Prevention of embolism in mechanical heartvalves or recurrent systemic embolism.............3.0 - 4.5 PT 14.6 second(s) 10.2-12.9 HI [facility] ID Date Data Source [id number] 02/20/2020 05:30:00 PM EDT [facility] Name Value Range Interpretation Description Data Sup porting Code Source(s) Document(s ) Magnesium 1.6 mg/dL 1.6-2.6 NO [facility] ID Date Data Source [id number] 02/20/2020 05:30:00 PM EDT [facility] Name Value Range Interpretation Description Data Sup porting Code Source(s) Document(s ) Glucose Lvl 140 65-99 [place] mg/dL [facility] BUN 2.8 6.0-20.0 LO [place] mg/dL [facility] Creatinine 0.57 0.40-1.0 [place] mg/dL 0 [facility] BUN/Creat 5.0 7.0-29.0 [place] Ratio ratio [facility] Sodium Lvl 138 136-145 [place] mmol/L [facility] Potassium Lvl 3.3 3.5-5.1 [place] mmol/L [facility] Chloride 107 98-107 [place] mmol/L [facility] CO2 21 23-29 [place] mmol/L [facility] AGAP 11 5-15 [facility] Calcium Lvl 9.5 8.6-10.0 NO [place] mg/dL [facility] Total Protein 7.0 6.0-8.3 NO [place] gm/dL [facility] Albumin Lvl 3.6 3.5-5.0 NO [place] gm/dL [facility] Glob 3.4 2.0-4.5 NO [place] gm/dL [facility] A/G Ratio 1.1 1.0-2.2 NO [place] ratio [facility] Bili Total 0.9 0.3-1.2 [place] mg/dL [facility] Alk Phos 124 IU/L 38-126 NO [facility] AST 18 IU/L 15-41 NO [facility] ALT 17 IU/L 7-40 NO [facility] ID Date Data Source [id number] 02/20/2020 05:25:00 PM EDT [facility] Name Value Range Interpretation Description Data Sup porting Code Source(s) Document(s ) Neut Auto 57.9 % 50.0-80.0 NO [facility] Lymph Auto 28.4 % 14.0-44.0 NO [facility] Preble Auto 9.7 % 0.0-12.0 NO [facility] Eos Auto 2.4 % 0.0-7.0 NO [facility] Baso Auto 1.6 % 0.0-3.0 NO [facility] Neut 4.1 2.0-8.4 NO [place] Absolute x10(3)/[facility] Lymph 2.0 0.6-4.8 NO [place] Absolute x10(3)/[facility] Preble 0.7 0.0-1.1 NO [place] Absolute x10(3)/[facility] Eos Absolute 0.2 0.0-0.5 NO [place] x10(3)/[facility] Baso 0.1 0.0-0.3 NO [place] Absolute x10(3)/[facility] ID Date Data Source [id number] 02/20/2020 05:25:00 PM EDT [facility] Tech was advised by RN to wait until pt gets a room and a line for blood work02/20/2020 14:42:49 EDT [facility] Name Value Range Interpretation Description Data Sup porting Code Source(s) Document(s ) WBC 7.1 4.0-10.5 NO [place] x10(3)/[facility] RBC 5.11 3.80-5.20 NO [place] x10(6)/[facility] Hgb 12.1 11.4-15.1 NO [place] gm/dL [facility] Hct 37.8 % 36.0-46.0 NO [facility] MCV 74 fL 80-98 LO [facility] MCH 23.6 pg 26.0-34.0 LO [facility] MCHC 31.9 32.0-36.0 LO [place] gm/dL [facility] RDW 19.3 % 11.0-15.0 [facility] Platelet 315 150-400 NO [facility] x10(3)/[facility] MPV 7.8 fL 8.5-13.0 LO [facility] ID Date Data Source [id number] 02/20/2020 05:22:00 PM EDT [facility] Added by Discern Rule GLB_ADD_GFR_CMP Name Value Range Interpretation Code Description Data Mariana rce(s) Supporting Document(s ) eGFR-AA >90 >=60 [facility] mL/min/[address] The MDRD 4-Variable IDMS traceable Equat ion for non- individuals is used to calculate the estimated glomerul ar filtration rate (GFR). To estimate the GFR for Americans, multiply the [employer] ided GFR result by 1.16. The MDRD [...] 60-89 Mild decrease*G3a 45-59 Mild to moderate jhntsqliD8s 30-44 Moderate to severe decreaseG4 15-29 Severe decreaseG5 14 or less Kidney failure eGFR-SUDHIR >90 mL/min/1.73m2 >=60 NO [facility] The MDRD 4-Variable IDMS traceable Equat [...] 60-89 Mild decrease*G3a 45-59 Mild to moderate aihtjjefK4l 30-44 Moderate to severe decreaseG4 15-29 Severe decreaseG5 14 or less Kidney failure ID Date Data Source [id number] 02/20/2020 01:19:[address] [facility] [id number] Patient: MARIELA ROME Age: 69 years Sex: Female : 1950 Associated Diagnoses: None Author: Angi reynolds PA-C, Luis Jackson Basic Information Vital Signs Vital Signs 02/20/2020 [...] Supporting Document(s ) ID Date Data Source [id number] 02/19/2020 04:40:00 PM EDT [facility] Name Value Range Interpretation Code Description Data Supporting Source(s) Document(s ) [place] [id number] QKJeL [facility] - kn3BNBUNcF [place] House w8EO4KfSC2 eXBlL [place] 2R6xIPlJ5F 5cGUv Medical Hl2bcA6TJY NlRm9 [place] wvW5DKHm3X XRpY2 KxYW8de9Yx bmcvV 5uqSE0sdHW uY29k gQ6wRc9TDI 5kb2J qCjIgMCBvY moKPD wvRmlsdGVy L0ZsY NYjGFLjh4Z lL0xl lqs0dGDuZV 4+c3R yZWFtCnicK +QCAA DxSLnUAN3k c3RyZ WFtCmVuZG9 iagoz LAGdp4OvXe w8L0Z fzTDrnt6Lw GF0ZU TeN66pKW8D ZW5nd GggNzA+PnN 0cmVh eZd9yWSG0H rk0o/ INFQwNFAIS eNyCu EyVDAAQkMF I1MLP XNTBQtDPQs jhZBc Yx8KfXVXSF OF/DQ AT38PPV7IZ K5ALg A8am5YYgIp ZHN0c mVhbQplbmR vYmoK BDQmEM3tot o8PC9 OkVz5YDIvM mxhdG VEZWNvZGUv TGVuZ 1MyRJRmZu7 zdHJl AY7CiHbm4E IAAO4 AfAplbmRzd HJlYW 4JMH9nb2Lq CjUgM CBvYmoKPDw vRmls lMKmS7YaUE RlRGV gk6BfY7drg md0aC A2OT4+c3Ry ZWFtC nicUwjkKuT Sj8g0 BAP1GTrY94 IK4TJ UMABCQwUjU ws9c1 KFP4W0CoAS kFwuj BTY5ELfyF6 agolm SBaXawhXIB cAtFA C2VsjknDup HJlYW 7VMZ8ev0Sk CjYgM CBvYmoKPDw vRmls qHGhX9ObMY RlRGV ti4QeO1lfo md0aC AxMD4+c3Ry ZWFtC Sakina+QCAAD uAHwK BN5wc3OwBC FtCmV qBY1xvyv6A DAgb2 EzDkg9F6Bq bHRlc o0PpKX6GGH lY29k TR2FHS9deL ggNzA +IiL4viRdt Qp4nF LU6Fim2d/I NFYwN FAISeNyCuE yVDAA JvGXY3RWPU NTBQt DPQsjhZBcL o2AxP RUBROF/DQF E82QL X7NOX3HLfL 1JQ3X ScGqQUB0ko VhbQp lbmRvYmoKO CAwIG 1lwoo1OE0D aWx0Z XIvRmxhdGV EZWNv ZGUvTGVuZ3 RoIDE eDt6tfOPbJ W0KeJ qo8LNRVP3B fAplb mRzdHJlYW0 KZW5k b8SwWqijTK BvYmo KPDwvRmlsd GVyL0 ZsYXRlRGVj b2RlL 7liibr6qSN 3MD4+ u8HsPFNgIk icUwj iCvEGg6f4N jA0UA wA19KR7HLQ MABCQ zRbQnv5b0K FC0M9 CyOFkFwujY DE9FQ IM3M6NXZNg ZAsLt cQrkAuALTe DdUKZ S2mi0YpYDF tCmVu CD7ywvxdVG AwIG9 odzl6NF4CB WdlTW 5sBD9Is0CF b25lL 05hbWVzIDE xIDAg Vi0NkDUoZ1 NhdGF kw9beU6Q5c GluZX MgMTIgMCBS L1BhZ 2VzIDEzIDA gUi9W nUL4LASJyy VmZXJ lbmNlcyAxN CAwIF I+PgplbmRv YmoKM TMgMCBvYmo KPDwv S8ddd6dvWH AwIFJ rC9G3lKIyO GFnZX HgE350bpKw NC9JV FhUKDIuMS4 3KT4+ YlAdIR4nkd oxMiA dOK2cywj0E C9Db3 VoaNMhY4Zk cnN0I KY4ZHBfEq0 MYXN0 HNA5YBGpRp 4+CmV fBF5uhoqnU yAwIG 1joovyR1aD Q0Jhc 5VjQAT7FWO gUl0K CG7uk9YlXs E4IDA dc0LaPcw6Q 0ZpbH Zwoi2KfTU5 ZURlY 59tSC5TPH4 ndGgg BkW1Fa5JVI M+PnN 1akUboJc3i J2Wd1 GL4AlFr913 vVCSE ImE3VbeFrR IDb1I hZ7sPOlTRg CQACI 2RFRwRFGRp ggyKO VXq7GCeUPB hQFRs esEGUTUcXA UG5ZJ WW0P32l795 2b3x/ 3fmufvc/dZ +991r oAkPyDBcJM WAmAD KFYFOHnxYi Ni2dg TrPU7XJIqG DgcLO lLux5VkXFL nzYjG yZE/gXvboO IPn7K tM/jMEA/5+ UuVki ANVBtNrb4s jZXBk IsHm9S9hiu 0/JmL M9Wj1lBi7k WYIyV oIh4rfssZs ZZQ85 7kLPPYbIg3 7iZfD a4VizsFhIo oyRYB sT6cv0oLT+ JmODd UdNPKIj8GP ZfE42 KBkZ9K1qy7 NkbC1 tttsxhj9qq QDgSM bg4VDrUFlA E8sPx i1KBv7RSDq IGSZc A3bOnxNW7d /PTee LxcwwDjeNI +Ix2J kZWRzhcgBm z/xZF UtnYjZxC6x 4OTgw lG1izhdWq0 38m5L 3dpZehH/uG UQf+M L1E11ITOSk pmW12 fqHbWkVAF3 rAVC7 /LtRWJ5Kiw K+dQ5 3xE86zY8Bp OIsZy sz2GciLhGz aykv6 O/6nw5/Q19 8z1K+ 3e/lYXjzkz iSdDF DXjduZnqmR MTIzu Jw+Ikyg7h6 Hwf+d Q7LJwtpveh vlEVE f6YMLHwFgI vIE4g FmUKGQPifm vgPw/ 1r0vlJsbp9 EdCWW AKlIRpAfh4 AKCoR IBq3WByZ69 0Lxkc D+q2G8OfUr fvPgv 59V7hM/sgW JH+OY 8vHMphCMd8 smvxa AjQgAEVAA+ pAG+g ZS8SZscRLz AAP4A MCQSiIBHFg MeCCF JABRCAXFIC 1oBiU kf1tC0uAtw ARNIM 6eNl8iDTcP DgHLo HLYATcAVIw Dp6AK fAKzEAQhIX IEBVS n9CkW8ycro VYkBv kAwVDEVAcl AglQ0 SZDzVG50OC qByqh lkjTkfy7Mg 0GroA WBK4qXDgIj oVegc jMAmmwVqwE WwFs2 BPOAiOhBfB yfAyO P7ydzbRaBV DfBDu hE/Dl+ARWA o/gac RgBAROqKLM BEWwk ZCkXgkCREh q5ASp AJpQNqQHqQ fuYpI kafIWxQGRU UxUEy DP6qnVBQlv pahVq S1c4rPQ9Wz qD7UV sYrfcc8OT5 Ga6LN 3s6dRYFrQm mdiy5 ET8Dm8J1si +gR9D z4OBsXtVBP MY4Yf 0wcJhWzArM ZsxvT jjmFGcaMYa axWKw 43haupi5Pj rBibD G8WiwJawV8 BTuOf VFp1nZrdbr fXDxO iCvEVeBacC dwV3A ZqSq3Is5O8 4wPxf Pwy/Fl+EZ8 D34IP 46fISgTjAm uhEhC KmEtoZLQRj hLuEt 1XXVN5YyDu HCigL rASIt7CKsX HCW+J LOOHrZ7RYP kIW0h 2GwyXv5chG CTyUZ uK7U9QAfzH m4mny UkX12KcXrA KgQo8 LJWN9PspPi cUXim sNj0XPMPCF yYr1i heERxSPGpE l7JSI mtxFFapVSj dFTph aR3HiMOCkr UOUN5 h0YP3gGxQz QsxYj iQ+CHrbb4K GcoY1 FEhc3pS6vT ddRG6 ydlLI4QN1O F0FJp uhQjwMI7BK WKip1 UjGzrHf9Cl RUpHa Ev9YVb9oDu +mH6d px3RC7BT4Z +6ibV NtUrqq/V5q h5qPH MVqNi7BjB0 qkz1H 6Y43T2pNns 39NAa ZhphGvkauz ROKvx pN8txspp0q ySOYf w4NgTBh94R zRXaO 0TBQFa8uMK 8tPK0 lqZAkO7HBg u7aGd qr1D+4T2pA 5Vx01 FwKEV91WTK 4YKw5 XLkwgx1FGb dDV1/ BGwljB5a0j zesZ6 MEnOdg794/ QJ+iz 9JP0d+r36U wY6Bi EGBQatBrcN 8YYsw lISYNm0lr+ NjI1i kHMHaTu4Jl YzDjD OV681rzbZJ nE3WW bSYHLNFGPK Mk0z3 L589Gd5pwg LMasx TqETnD1TDl a7zYc v4LEJGcHPD osbTB XMs0qWzEBA WtItg a7JYcjxq6f ZWMVb bbPqt/pobW +dbt1 ofceGYhNoU 2jTY/ TztXjm69yT 9tpc8 lzfuavnds9 9bmdu t8ydU2dPff ofYr/ Bvtf+g4Ojg 8ihzW WF1eOl5wWC 8QaLx aidsWnlp0Q 7eTmt qycs1LkAcW nsfNj 9TrtkZ9cKz 8ujec bz+VCa7696 6rlyX XbyfT1Hq5U 3vW5S m231qduQ+w MPfQ+ fR7EYjCkiL 6rnQc 4pVeMlJk8V r9dsZ /RD0ffebLn Pu8R7 0IfiE+VT7X PfV88 36zhHj7rN7 m+F3y l/tH+Q/zb/ GwFaA oaB1lGqPWu AlYF9 QaSgBUHVQQ +CzYJ UfA8gbXomt PaQu/ BO5qbsd4YE 0IDQ7 xI3vogXgyF 9H44J AmrcRB8YYI NRENG /gLpgyYKWB a8ivS UEPx9NkGZH onqjF hSAnxmfW6v 4x5TH SGOtYlfGXo rTiBP Fmvcs79Dlg +KnF/ tm1LygOLT+ oTjh+ iLjRXmLLiz WWJy+ +PgSxSWcJU cS0Yk fiX4O8dyde AbO9N IJpnFMc0vj 7i7uE 54Hbwdvku/ KL+dP AMzjlMh2Og ZN3p4 8meKeUpHyV MAWVA uep/qn1qW+ TgtN2 5/1WG4vvF3 Dl5GY cVRIEaYJ+z K1M/M qj7UCa9gab Mucl+ 1cNiUKEjVl Q9mLs zoEODcN1QO ERLJe LlgidgGZ1u Y3Ovd JrnQiIJ1tx dnyTc yu1h5nz57A WsFd0 OleT5P0OOC l58r6 BkMbnkv2Q+ uvLlo 4gqXdrNS0y LVpa3 5euN8fJ9h0 LmZdT 0FU8YvzqcL +61uL SQoHxTd5iZ yo24j mYCy7tIbce qpNH0 o2EOhAcXvv St9v5 m6++JXNV5V ffdqS tGWwzKFsz1 bMVuH Q32ljcx3eI y7PLx /kEkM2zfnt R8mOl bnR9JtGWWj Rt4uw K6HOFazm7X 1lULW 33p12OmHTa VdNe6 8e7yyu82f8 u6/s8 xzOFypPH1q 3bq9g 7816v/rOBq OGin2 LdJl6QqCDT /Z/zf m3gAwqnfTc w37hf xwEuMG0uN6 NzS2a LWWtcKukdf JgwsH L33h/093Gb Ktvp7 eXHgKHJIce f5v47 iXAWKp3q4T OtH1n +H9sB9BdtD PqXN4 79PNMRg2V3 x4+Gn w0f9kyk+N7 y+/3H 6O8OcJx3Rw ZCcKJ ohOfTuafnD 6Vder g3qYFL17Ue u+ciT 1zrS+8b/Bs 0Nnz5 1eBktv90W6 53vX8 nHhGZ17qVE 3suuR wqXPAfqDjB /sfOg YdBjuHHIe6 Lztd7 btaR9snidf V01e9 j033GmDa8d j8keH zIouj1qj2S b3Ju/ nwWuux72tz bs/cW XMXfbfkntK 9ivua 9xt+NP2xXe ogPT7 qPTrwYMGDO 2PcsS c/Zf/0frzo Iflhx DSFMUNn44y HJn0n Lz9e+Hj8Sd aTmaf FPyv/XPvM5 Nl3v3 c5NwNSYxE+ XPT80 6+bX6i/2P/ S7mXv dNj0/VcZr2 Zel7x Pd1HaEewg/ 7uYdx Mzue+x7ys/ mH7o+ Dt52u7juZ+ ffgP3 wGZ6LbKsFK N0cmV hbQplbmRvY moKMT kgMCBvYmoK PDwvQ 69xx6PIsJD jZS9E LQXcI5BUyf F5L0h laWdodCAyO S9TdW N5wIXdW6oc YWdlL 0IipUEdws2 GbGF0 RZCyR50xLI 9UeXB mI2uFFeuoG 3QvV2 lkdGggMTgy L0xlb so1uRYuUL4 CaXRz KAKmF69ufL 9uZW5 0IDg+PnN0c mVhbQ h7aP2SNKCF AADCo T6eObhjzGL AAAAA Hym5L5qSJp VuZHN 0cmVhbQplb mRvYm oKMjAgMCBv YmoKP CwsV96ww0Z TcGFj ZVsvSUNDQm FzZWQ gMTggMCBSX S9TdW Y0wQZmB9hx YWdlL 0hlaWdodCA yOS9G gAy5JLOoWs xhdGV EZWNvZGUvV HlwZS 3PQ7KxEUH8 L0RlY 38qPTYyrv0 zPDwv R17wwY9lgx AxODI aZ36nt3YqG DMvUH JrKMnbxE1h IDE1L 0JpdHNQZXJ Db21w s46jwpLdEL 4+L1d lSVCqIJG8J i9TTW FzayAxOSAw IFIvQ av8v4GnanE vbXBv eaMdnTS7O9 ludGV lpI3oAEQwD HRydW HrKUYnO3Gg IDQwN DU+GfD3qfP hbQp4 4j8wWVHJN1 bHb+I kcybRuEZZG pq1ZX HXAR6S91ZO QoyKK 5rROBpiNBG NAhoC IwJD55LB+8 KqgIA 2guyLgAKyG cMmAW VREVBRQUBA lEVgq rqRpemGRtE vfsd3 6aYz72otZx 361b3 /e+sJPW/M0 UUPyv bIC4lXryr6 tVjF5 GUL8hofrs/ Xb9fF pFeEJlfEZ1 fce/i o5//LAdrrA vRNgz 81C/vsB3wu MQvTN s02pXfZF7+ zvkaR W4nCnS3Jf0 SI2kS tJmxoW9V7Y dhxLP 4H02RkjSbu uOMkK SLXhaGK9gh uziy4 sl1HJSDmqk YTFOk xjN9o0d+Gp serD4 bDpKMwzXnO toA1l xOzKj6hPqd QdNnq EIPIfuMRyS 2tZQt kPV4Eiow2x tPYwr ysK/cGNmps eZqaV 6Gj9jwdM4M fDyTu 3PIxVeetD3 saXnX /6fypg9nsi KlUMP QCQ0/QZI/q 9l3kB VVydY6V2ur BkTnm xTk2c2HHF5 hCJp/ JqXydq0WvZ CaDEj kgPv/NRkT8 l5lTH KdkDSt9t3i 4XGtd Mq9pYYvynh uvs5e CoQ2Kldcpl 0PkQu 51WT9N/poP sz3GH OUEE4LJgSI lampu teTOWU1KAL BgOs3 V//p3ENxaD uxFhH mwZEM49BIY 5g1zv /bGAJjlASr 09o72 53k39s6DeX AgC5E p8yn0AsiRa tdWkI 4839giYu+b hvnQ4 Nr8mI8LpWy uYNAR oKCTUVjx1+ fDzCn j5OxB2Mc6+ uWLEa N16v0iFX52 QpglA GX66+/9sl1 RoMeT isgKiwiYRr bh/yH mYd9UnRfHv Bkid2 vrQYEMczxh wcjaC TnLqW9IUy7 /cT7M aQkwlbLdPv UlETn 8r7JIw7qHB 2Tl/h hQYyEnccxH Zs/ZQ oQIewwRMdw aBPrI zJG3t5ZKkC zVPgF PxTPI8DAw/ 7J87K SjfLb55wak 5/RXi 6rjF7tE9pT BBhUm WsMUeyXjE7 7Rwz3 QWpCOsidQc oGpZN MhE43Xki6a lh8RI /MImOGOpeg sgeHW sP3uWT+R09 G53SE 1LrNqGERKb j1Yvu 357GUL5URK dSIu8 6k91ukT/gS UXPFL OPTTkO2ZVp fabZS DLBsc6sFIw xOUWD PyWQjb5jbi KK2+b 9oe1YHfPtI X2sZm 62QYEMzO7+ 1gkv0 OJznW0YYbv r2j7T 19XMNKng3c YMJhM GB+tTfclb d7oss5X58U hmC0j hlGx4jCGHy zimha mmJNgE1cxT wgTnD 5exr1U+EF3 o/PTH EJjopmziOb RxQnY iKkZ7yXyal Lz4rO u/Bl1XFd3e tqnkS 5DL1fVLpUB 8lXmc rSFajx3iaV VWuP5 Y8vjUGuv90 qeY04 u5cyGo417c djxWZ 2HiMVBkYPe D3ogk qdVeU2BGSs Qo/jk 8bT3tTXx1f Tcp0H LBGRmBXinK AXOvV EklBGJ7L7i z4GOa GECE9uknqi kfLhO AEgOpXRtu1 tAH2n ikwxRnmOmW VlDx3 N5gpcTFRUI o6ekY bYqf8vYWOx A6x2S Uia+k5l0Hd XeUJD qJ/O39ynIg P0Xtc PgYNR8X9HB sCNrw x65SbZ5th3 46Zoj X6hIWhwlfp 3gS14 kmvqDKXrYn ZODFm CoDwW4BIuc F52fd N5WM1q8E3L sD5A8 76N4whTGVH sfJN2 +RVWSEOp5z hXnuo AR8wTaXekX iIbtq c56gLnNl/C k4yzn fxr+E4+qAL m+Lrb xlIdVV/ljm a3FYw xp2S92OgDg OaD7w mv7kBLzM92 DphqI Y/pXEPcyXR GQXJQ bO4UAJOory PxQNa pyPvhAMolM fjZfj S0Tpay6bU2 Zw4aC WymiJcnePG GgEZ6 9FX4ArlMYE EaEEZ oIKSv/cqh/ US/Mueller lm8FBWhl1C r7Qb8 OADUKaPGUV /hLPt 89PCdt3dBi R6Sh6 akYERv+5RE QQTmz dawb4AJQOA wsjny KDsp1TJW99 z3ja1 +cUyO8Lc0S 5aVqX 8XIGp9nm4t n0aoV xSs8fqHGKU ++JwT fMgSRtIJby Jigxg 85SJgwb2SP zaBKQ 8ICOr8MurZ ld5Hr Mx8hYyZb8D R/7Cq t6pZDyXNV0 3hMMT nxe88A3+RU /7mm9 9TdGPLuP/l SRwVE KpJvxLV+0g JhO64 MeOPmjf3UC 0m8XA 8q2q059rFw 5D+Hy EAhtstswSt BRI1V XHF/6K+Vd+ tQDEK TYcFKkytqz Odg2r NICgeD4SRw u0MKd uP6gn/uFPZ dXHXw VA8sVGRHj1 vEMlw CkXGL+GDgA foM6X 8yTNg6gGll 3vWZc wfLIB3+Nqd oiZbx mTfLKutGj4 ge38Q bnjnfRat33 cCTJT i7zswfvrxA 3ePgU cgAV8YegFe j6H1J ko2D6mnzvw YEPtd Key6mHRQxt t1y+h UiQmSWVUnf OhFZh /df+3NyIYJ yGVzE S9VfD6xFlV 1HRIg Q3JE4iZEm/ MEpDU 0AUJFl6tyL KlMCk im51hFWook 0cn+0 rVuj6lPg9A fMThR KuTve3lc7A owwLr oF8fqxy8jI baT1U tQShs3AxL8 12Pkl SFTmn90uf7 2kWAe NW+gzoik/2 R7ySh GRlfSKEdnh mCQXI gu5Yi/CEV6 R24uk irwI/7OdZ/ su7ji aLbiuz0drM eMahI ucmnK3CkTA ECr56 mddnY6+6UB iYgWj RO27/gszCa OGLqo oIAGvf4njf VlEXk Ye4mbMdTMY OjHJC zGOuXR3NtT 7tvC+ HcposLaaTk XhZpg marketing finance manager+COeN3KA YZc7K X+2oiorPbD 2pPEt CZbxUzB76w P4r0t ZJ3iurHzKq LYJAW RzbaJWDYhU 88gDz L1u3bw/hEY T8amR gn7RvyC9p7 BONYj U9RjiJsrgb zDXzc iCsa+2GQa1 Mftra Ta2LZK4ePt E46kC RkjMUP01js B2I2/ FRG8ceckX6 vI2oP XZQarf7f+Y Iycw5 wu1B1EgxnQ bYB5X ySMpWvU02G GOJd1 Y4A60obGO0 U3pAg xKCQ+aFOSL 1e8MC S7o4TMH3FM ixCZB wS55eb33l7 7E5cL 1A9C07gkpf lr6s2 ju7qzhUo0l rzIiZ giJEBabak I768d VWgCn14eeK yqnsv 5ODiFC3Rz+ MbXtQ v9sNrc88Am LhitT dFF7y4jnXl D0Vkh 0PaiIjkjxY RE6so rCm2DN9j5t af2MJ cmEYBdUpt4 6PBcl WkReaMApGH j56IT WnNfXlEkuW dcoKo BlhX3TuSIR Lj5Jx yLOeRipzPH CRQHE GGEWqWrh2i iPSX7 W05c9UJ5aP ZOSX3 cOBL0CoivX IXtFj Edquxm5z0T zKCLm +TXdzYIxKQ cAWbw MLQx4QvawJ 12/dh LohmjEfR0I jzt4W Ihsqqw63HX 9cznP dw8WO7RN2w It87n noI1Qbzf/F q1uY6 Ne54ReWwt4 GpTY3 GXX9JMhj3i cBMLu OuJrIRHN4I 0vEck i148LsrQ7f RILE8 mlXKE9uq2w 66K2X TW7jE5CJgc fKNKh zAPRn10+jn 6JfSI lrrpO/04ro IolKF rek58E1fB0 dEHBT VWHklklUKM BSVHA ai7aAFtxnh SaEHF EbEzWr9V3F 1Ro6w FEzH7lGT3/ dHk+R olX1sJgPNb SQ5Ve 6ncgbPdCuO MkirL ZLcoDnmewl BhuyQ 8JfVwC4O+h Zxtcb dS9Ff4EVpg ljWaL OfeMUC6HDE eyPnb AmWPmRVGl6 lwvwB CTMNrXNF4+ PSEXE LyBMjQgscT ouorT 8DgIMzl1M1 ycDrv LOXcfEDUaL ueqe2 XqZdO5/1yz 1N9pn UQQHVOzIfC FTR9h wCcZOf4b6+ jMAOh lQx2mliDRe kNaas 97oHXRZPxp WyGpm I6PG/sYiW3 2NHZ5 KmPO2I4Uu3 SLQab p24sM6t6/L feIKe ByhQa+ol6b zwxy3 8pG6Uy6wRh Ow9c7 3LkM4ankJg /UAeV K3RCe3V6wx 8b1Ai n/tdZmGmtQ 1v0f3 KSwMVsrSJa AOiG5 rHpJz+nSx1 E38sU 4TlkSPb7aT S/GHi 6gPDqXTQZu DqqgY rJf+GxE9f7 Y3G+T qyATiT78ox A7dAK 2seHvbMgPG HHz9p F+6E9LA2OB pu8Z5 HKdf3hZt6L uOyS/ BHplocQZgk qfCJ6 VGNGc4W5Fy Q39rF LVmEFd6qIL 2oMvX CdTsjc2SwH sKlLA HfBqZ6ysFA a1Rxn GHaWj9OVE2 9qH8t wvk2rzmGmr owEBu mE9ONuDeYQ +UPpN uTSMHKkci0 Yl0or 9sdl9osbqx SXOGN XprX2PI3VI gWjDb glfrDD8wvf XuvZD mCjKlIwzcq U75zi Q072xZvjKH 30E/l vCu3HJaNNj qhRfA smRcuaw2Oi 6aQNl dveRgjJh3j NLHQW AdS2rgwpm7 jHPXJ Zj8zntGZeC GdSm7 LzSOtcCm6/ 7vcwu sPLNkpEz/3 xLstq M1cNzSpuBB CYPzV bw48wFdQU8 qQeHg KSsp2tHC2O ngjiu EjJ5h+9EfX cwPmm 90uDLgKPr1 v0ykU Bcf9i/3cAV Ixy+r 4ZgyG0XdMM tx5eI iTTlzjifeA 0KtRv QPxsQXZ2rS v9j2t kV3aLqm3hN caXXW V/85jFxWMj wNYoZ /QQJbvFeJI hO4lc RLr889yNIJ UbzAN Fubo7jXlnG h4MrA ytImy32xkm TU0t8 hJSWpOFZDc YDzZa N8DK1pjQDI DfwcD /t59ZpVQo/ iEVVM v87N77+hcm O6Cx6 eDfmvTzF4Z qTCH3 uW5tIfZCLQ 3jD6R RGBiLQF8vb Bk8Y6 0fvVVWP0bg G6jQM bHplanwEQn +Oio8 z6ond391wY SrsJE Zxv1UxnY3b rqFAW +ZiPzEJjgB nPprU 9gT0OiTUOW 36jOm bfmV5O8LBm dIPz9 FLEpI1kfja U9u+9 E/2vvOIf2X Rfe32 T6ji6tp5/N L7Ssb EsC8QWeNiz am1t2 Uc5NN/ZBDI EKddw ij6U/RpyIH bqX8e ubC5TNlaci Rlh5/ Hh8/yZtaVX 9e4t5 tJccMENr49 xYfa/ U0Gq3M0b+V ++jZm 1cPIqUKJR6 79JdQ jgXXqH4NFM bdzD2 zhcau5SU4M Wc0Xf hHzyq0e1JI Bm90Z 54afj6z2Dh qFl9D X4mZ6w/lFT X+HRU 2vP41q5VP6 3hfSu S33nFiUT2P 0s/It cjE9EDaXNW WOmPv 5jQxgEG3fR RK2lr olxsPh0bBZ U1T5a 867DmpxFN/ ECXiv 97wAI+WlSU oEsSM TqntHqzbdT fP/XE Hw/87Qgouq iuDGC fpq1K1tvkL 2kV9s 3iTBncMZ6A +8Kq7 mNNj1yd6O5 b9x6V IRG9US8Ryp ZNCmi 719hwuRXJ2 RaRV3 XcqHoISlSc leixj p3IbGt/+lema Rt4fk Ud/8CObTgc jGioH wQw5jlubY5 N8Ema gQU3HrMPGQ 5LxF5 Y4GKtbuUKp FwHUI AspuaDCJAs pkS07 ym9L/t4i8L pnyoD eqvf57X8fw 36ye/ w+I5WcjBuY uZHN0 cmVhbQplbm RvYmo KMjEgMCBvY moKPD poG8TzkHI2 PC9TL 9PxCR3fbZJ yZW5j xD4BXRMugX UvSyB gXGptEK5FZ yAxNy AwIFI+Pi9D b250Z U22j5h2FTS gUiAy MiAwIFIgNS AwIFJ gQ9J3hQRlB GFnZS 9SZXNvdXJj ZXM8P R1Rh0ydkhX wYWNl PDwvRGVmYX VsdFJ HQiAxNyAwI FI+Pi 1Sgc7yW8M4 IFsvU BMFMC5CRLt 0IC9J bWFnZUIgL0 ltYWd nKqWjQM8zE 2VJXS 7Jn950VGzk SGVCb yAyMyAwIFI vSGVs diAyNCAwIF IvWGk wIDEgMCBSL 0hlT2 IgMjUgMCBS Pj4vW V0xczMfnAs 8L2lt BBAfNkC0XZ IwIDA vCr92GbJoO zYyOC AyNiAwIFI+ Pj4+L 1BhcmVudCA xNSAw IFIvTWVkaW FCb3h bMCAwIDYxM iA3OT YpHn1URL1l b2JqC rC0YHSad1W qCjw8 D2lxEHRtPy EgMCB PWGV5ZAEcZ iAyOC AwIFIgMjkg MCBSX Q6MnWQlA3O hZ2Vz P8SqzX12CP QvUGF tHL60YMKqG DAgUj 4+GeWeDF7y agoyN uUtII3ydbq 8PC9H bv13jIb1T2 MvVHJ hbnNwYXJlb mN5L0 LZAf7MY6YH YXNlZ CAxOCAwIFJ dPj4v E4KtaFxiWP 9Gb3J sN5DpqCYke i9GbG I2NSHfC00e ZS9Ue UXwK6mSQdc lY3Qv ECY4qxt1Bq EgMCA wIDEgMCAwX S9Gb3 JtVHlwZSAx L1Jlc 291cmNlczw 8L1By d3HJYRSrZ3 BERi9 BOHs6C2uaV WdlQy 9JbWFnZUIv SW1hZ 4ZGNU8RL6M qZWN0 EWygyK3kIT M2MjY gMjAgMCBSP j4+Pi 7WQu62YjXs MCAxO XCxWdrtY9q lbmd0 aCAyMD4+c3 RyZWF tCnic08/MN TQwNj WeI9IBYlGB EAMLC gAfMBE2taE hbQpl bmRvYmoKMj IgMCB vYmoKPDwvR mlsdG FbP0IvYCSl RGVjb 4XsC1shszw 0aCAz VUm4In0ojL JlYW0 KeJzVXFuTo 7gVft 3jWXRfTWf6 piVAC YZE2qD0yjj Tl7Q9 j7L03zC4nK 0Wg8f AznZ+fY64S AKMG3 E1oH9wxLWZ nXN0r w0IQpfSRpT bmoLg S5WEu2cMOr VTJYZ qM9hw2d4sW 4x0U7 OUWaT8/Rv2 ePYwV nRkKpQYqoZ 1hHV4 VLleKUhF/O 9ho1y 7036jXd4cA fNxSJ rNql3aZDWl tft5d Pv4p+/Gvyi rH75R lAwjfalT9A YpeRM +AB3u9tpam mZsRr ph3zYkiL9n m4JRj W9SmOYmqZ5 XURom N9VwEYrMiF qXic5 jZRmEaMRoZ VBYEq nWUA4/jRWK Rk4cO 4dyQteHKNl 6h7i8 vvVcf+0E5e WNFyb r2zQ0v1Gqu 3w6u5 6vVvNHLtCH +/vZO /ibyfpteXu 2mN7N W+UgOjlXN9 +PYTY sintia+jF0mlVM HS4jQ 0BRsxMc7ro vHgIn WX825iG19S d3V+f npm6G7EYMJ IlDvQ KwkfjK6mwZ 4TOVZ 4zkhh4KLcl GMsBv v7xA7XAc2p Ew1gh aBSlm+2vOT tvH/t nEnfCM704y /yENR HxkP1h9DJo z5Low /3NFPiDLKv F/d2p VGSyFHsWr+ WN+bd ybqZp88+z0 9Oz0B d5tjc4EYCd PjE1w 0E8KLzXerI 6lYY0 2A29XPaDCW JbLG/ eTx/fzU9ZS bEs1d DLxhi81dHK 4wYaJ EIftS84lY6 uZu3c zgDNOV2WuP SabuA TBYtVxHMYP LDpQb G3HGNq0y7I 4l2t/ Z5MOyDmgSk wBheh vMzY0F6+B4 FdXMx lw3GYUmLUf XZUA4 lfEt3VECbd Y7za+ loLd6W38Bg Ce6yj IUB5OEzjk2 0XHvB Gqu29dT2W4 cPnrK ltlvBH3H4+ jsLy2 u3bg91sa8M 6e4AE 4bmWfHv3Zh cMRZ3 H4bMIL3m8P /IByw NHLU3SYqiL X8aKi DZyz22fdp5 PUk7n rSyHZX5RtA QxqcQ Nsrl034NOB SxVG2 mGp0v699zO PM3vA 8+LaRkf4er Ee+85 QcJVujip/V sndDa zdKZYb4uLr JbvO/ yFFhKLN85V S0OnE d47XK8hhnM CgWLb nsT1TitM6Y xbRgC KtSybliNQ9 pNr7v 4uFRgY1QPJ DWohu NwAYhnB795 fr7fO PlFBy5c9b5 x2oJC Xhrxyglctk zKEXx N4VwrXpCpG 01TNt pWdQsDAJuQ HTbWV oLzK/wvKp/ N/A2U LpL8o/1BCc AGT/3 18B/8ReB4B ufzTB FsqzijgbOg XZckE 5Cdf7IwpXQ yGQqX kay6PXkDr4 yxFy8 aUYrfKSQys mjAQy hHKiPPLMyW W1bar GiKH2U1gWR a5Ppm cTToT5CEi5 w2TtG n/owrmFghq DnJKV kzVuqjZrWO SynGi 8xV9uh89ZO bffLy p1595gYrpz oIL6A 049ovKSlGj Z3Fes g7Q8UUQi1a 5gJLQ FYxKRDu/Wi 1enf+ ZUhyt6/zit bqOyF nMH+fLjx9g slA1u ugTz9a5vJI +Ll9R wJkyTLOClI oa9Yk yFhtS2Jic9 ex7Ll RMC4ml5Vnf I8PD/ PH7+8dbXiX v2FW3 ylh7EszQ9V Cs5Lj U5rW5UCWH/ egEe5 +W0Uq1TWe0 FRC+o dTEbah7r7s 3Q/V1 Juv/j75MKB WICKF lcNqGvTW7j RpobM TnfAoGoqyy Zz+Q6 aFgIERtKBT FdwGr DMZ31pt2vn Z4mbY JTpAD6oOc8 fESbY eIhVGD7lHy Nfx2H E5WioT655b xA6kj DYs0PjIj2i ymxQa 2b6IPvD2xn W0ckf ThTf495J8m 6+9VG bPQ09TEW+1 epQNY RgywdLROjW ZjvEy rdYfB7ky3d pXBEl JNUr8uXcYx wn38i pNYqC8uNyO B5WXD jlmVl6H+Be jHRqa P55W6QI4lL HJsD/ Av+j/wLwSh bdrtz fEeXlM8Flx LJtgY WOY4ODmfIa mlQrg +WCIMuQdjM pBwY7 BMmDWXtEec VQjXB 0uEMdJVgww TuU8w VNa4EZobrg VZANy mwD531TEqR deX2F /7TtgrJpCm 6t0Dw rARlAabNes 9A+Ln 9JAM1PsweI DTYOf E5ap4+C27t XR2Pv v/obJUEnti VWgd7 TP0+VLeiPg aUCIt pn5RjQvv2Q HFlv0 7V8wbOb9oj BpUlw oW9xFSFl86 KwQNw u0OgMAhP4x 0QYTf yPP7UyteXw xiP+7 j/gR3FOpmj NHZks CnV8KuM2O3 Eu+3z sZ3Mn9/xNC H9KkO Bjhdv+plAC i0GI6 z+or6/mVfN nSBv/ wxz3hYFeoT My8rt V47DBdRCvH o90IG CAP8I6dKsE YH5sN gZfkI4dUGM 9ZeHD NnLrZ9WLBn w49sd kbwu7KqRAp 92h4i hnt5s7s+PD 0pP0z dNEj+ms0EW 1S7sa j7ZbxhAbZj BE2m1 hqXbsHh3nb UmF3j 2eUmCvmRKL oNmQq mFgMvE7sLI uS0oy Usc3BTyIRM OiGxo 3Srw+X+Dgi ZXfvS j0KnFVRhxL fMrp3 ekfu1WsU1s jRoWl bHZuII+T7e WqxF5 K+48sJRrmd mcCoK XZ+9YulcQQ p5ABy SPvGmWybAy SGJeZ o2Bzrq6ibZ LlDl8 xtO0ogCndU YyOrl dTLJxvAqEk IYdwT WM2jMp1byD Vslmt 8CwwGY28r5 FdeCq r1covWJBdA ZA5/r oMqPe93BV8 6Evvh igTd/BQngP Hi5KE Jm2/rsVxCy Dn2Tb XKpDap7D+O rnTKx QgB2R7Ohn9 VP1oC jNlzixniZt gFMSf d+jLO8Wu4J +lDDE Q7c1yQhP7t LIQh1 DEbF5H1Dl5 QTrGI R49FC83cF5 vtxEl FfcppMe1y7 4MVlg VkEQejFvVo S3cCq 1nqd1fctnY Etyc/ 1bpt/dPhKb rk1oZ yc5UGVrjGw RDftB M1eSxKnFtZ 5X9OS FtcELLnt7Q o0G+N i6tUADZlD7 KjTro +Y75xd0krv 3T0TV Mr7Wp1Ml8D OkDnr /Uwc94aRnf 5AyHl 3gBWaDYrFJ 2AFND sABvvAigrJ xnCZN HI41U2JX+l WxlZB SwxMhOg0T9 OrpQg KeMccdoRsf bi8Yk NUpKM+YF4i 3Sez/ OQnThBnbvW X7N9b VJBB85X4Kc 3TYSE OFWncFJM1z 4BaWy HIeDhYBf8T d6xT7 REFJ/nVdYR B27ol J3NbVl64dy /UNRN 4Ci5R9Pu5O 26V+z TuLRvbyGsK 2d5We 5AY7LSwbUo 0eLu4 e6NSXrrK9G x/Snq amo3V1IO1f YptmJ BRYyQ0h0qT JPged PRMA6Czgyq RFamZ kceqGU8KdG rjRdW oWQDYsFFzR 5Kr6j YKfcBNbE/M 16UqH eA/7Q6c0oT Yj5dV uL1bdsWybP uOjq2 vTDUUmmhDr 8XF9U N/8hsyiM0c QmVui mrn8Uv18pF IaQBI pISyV+iSlN QYj74 bafoaikU53 UReb9 vfaxeNCINQ lVIT6 dUcbP+5J9O eWJyJ AQTS4QFE/w 9puBG nCKCDPDTfs zppvE 6DJN+x3kN3 kMCHr y6u6JSvpfe 3IJPb gj6QjgbK0r 3ZTp/ bACHxu01PM cHQRz SPTIr3rc/h D8biP fTW4c/s/ND fiSMR otKo5MjqT+ 12doS hOBfAVhiOv RMXL5 X2/saJxQsn 8ap80 6A9BjZy/s1 AZd29 AhlbAt5UMi XQ4km a4jnNHJu96 OVTcr 5i54esqPMK 8/ZjZ xJOCr/gPJ3 Aq28s 0OhWDE2Fix GBm6L UtyefP/pdb 067OO YhnZsNvfQQ BdFGP kvres/+2k/ 6TBrb N6U5x9pN5i Cw7cm o/2IRtuXQb lksIo uv95UAYl2B +OpiE ad72QQDiCX wdUun AV9wAzfz4k ziPev ksaslwt96D u618Q 8kuwjsM2R0 Z6tZb 5ZoiuAUUez u/EQK SXmaM1sikM 9su36 8jnbSySyWD 1S5Y5 ql/ODhRmRj kbu2h Ur9/1QOdO2 Hy63L y1fecx7Yn8 PrtqJ XzI0yCDAt6 H3e7m H6BXhmVBDv /Esk7 iET2PMTVGS u8D+n 1fpL10VbC8 fihOE u+gJKJOX2G oqKbY U7YRF9DtVD e4U6f 3H7I9KYR8a AeFJO LAanoH2sR7 BD/ka 2nyME5PIew XeU/V uDzR8VEsew ComzW Rf+FVWM0lr CF4BB zmv2CT8YzL DhmPJ E3OcaMouak At7Po JbxQXyl6UM GE/c2 UWJH/jgsjA cVe17 2IYfn1MASr fyFRY RNo20SRddu jTM1M OVepTb7aMs hwCg1 dphT8+tTGz R7q4i WsBvhTYrE3 vy1gD Dey3OzeAay zTg4+ ULa5L10lTU koorI l0gz3SddvV uEOXo /opmSYsB2A Kgu74 nEJaIcSmcZ NVVhO yD+rFOB6L+ eRhne 0lu2YVnR/b k3po9 9gAgQ83L2l WanMn LXbKcYmWnb Hl3/m 7PlVH77IMr 6jv11 G06T5CrU6O eF1qU qDQU+0waNn T5px2 J9k6JFJ7PG mebBc 0RKufY8KFM XeYbP aynmUMgws1 9cY4w P3/UuzhEz3 mcegf h3g/zd9zu7 DexyI evczWm/Prg PUMcu u4RZ3yzMb6 9Nw28 map8WdrFpj QdMeW yhpSTD//tr eWCJX 3Ap3qUcKYl hqtXn 5glYDUf0Lt h65Qz egJ1AKgOVO 4/76N ecV6pDgbPS Tz1QQ hpL3jJusyF mS06s cZgCNm8cp6 2prla SiofAhEhYU SZl6n CJEm9c/Tiv bf2oV Imi3TbNFnA yCH/3 R2vZMD/Ak5 RpkMK YG9bi3JxHZ FtCmV kPR4ifjxdL SAwIG 7uxkk8QB5W YW1lL 7wmX1FyR9Z idHlw HD7AwOAlFI 9CYXN zLj0wiO1IY Wx2ZX LsD2KqJ8La aXF1Z L2VvTBsB4T vbnQv US6gv7Zqln cvV2l aXD9ouKJcN 29kaW 9yTl6EDU1g b2JqC uRwMYMnx2B qCjw8 T04deOWaBV VCby9 AzLC3tCZfJ 1R5cG GpZ9Hly9AT b250L 0hlbHZldGl jYS1C h3dgV1C1bE UvRm9 chD0LkbCzF GluZy 4DgZ5NleNo RW5jb 2Rpbmc+Pgp lbmRv YmoKMjQgMC BvYmo KPDwvTmFtZ S9IZW o2S9R4KyY9 cGUvV HlwZTEvQmF zZUZv bnQvSGVsdm V0aWN mE1G9sSBnS m9udC 9FbmNvZGlu Zy9Xa A1CvuJcZT6 jb2Rp bmc+Pgplbm RvYmo KMzAgMCBvY moKPD dmE51lm9TM cGFjZ P1KZFGdJ7G HcmF5 M7xkrNwezD AyOS9 VaUB9yFLxD 0ltYW kwN0TthWCp ci9Gb QO0KRNgZ08 kZS9U nXZjM7rTKc plY3Q nL0cxiZojZ TgyL0 tqzmq8mTRq OC9Ca CGsQJTyZ40 tcG9u BH53HXm+Pn N0cmV eeVf2lX9VS QEAAA KOmZ5pDhwa oAAAA QTCKrh2J1l PCmVu APC3xzJvzU plbmR vYmoKMzEgM CBvYm wZAInrL00v b3JTc GFjZVsvSUN DQmFz ZWQgMTggMC BSXS9 GwDG4dWTpS 0ltYW amB4evyVso dCAyO Q7HfYl1NHX vRmxh dGVEZWNvZG UvVHl aES6XL4IeQ WN0L0 OgE91fEIJt cm1zP AfkH94ydY7 ucyAx XRWuY65rs2 JzIDM vUHJlZGljd G9yID A8F2MsaAMM ZXJDb 82ud59mvoN gOD4+ D6zwDRCeLL E4Mi9 TTWFzayAzM CAwIF IpNpe1x8Ie ckNvb XBvbmVudCA 4L0lu jQDljX6gXT RlIHR ydWUvTGVuZ 3RoID QwNDU+PnN0 cmVhb Bm34d6iETV UR9bH b+IkcybRuE ZZGpq 0ZUZJET7B0 8RIQo cIR2uJNOje NBGNA umAXlYL55R T+8Kq fDQ5tpeIjK KyGcM mAWVREVBRQ UBAlE VgqrqRpemG RtEvf es84tSb40t vVd36 1b3/e+sJPW /M0UU ByymSA7fJj zk0tV rN7BEW9bkw rn/Xb 9fFpFeEJlf EZ1fc e/io5//LAd rrAvR Ngz81C/vsB 3wuMQ eMDo46uKrP T8+zv seGP0eKlO4 Mt4SI 3ePsEwdfA3 U3Cdh uQS4U14Ghl FhiuO MkKFFAiwNE 1qhuz oc9to5TFWQ ngiYT VQjcjL8v1n +Gpse zA1lVrUHag XnOto J1wfSfFu5q QwdQd NnqEIPIfuM RyS2t ADazBO3Tco x8qtP YwrysK/cGN mpseZ zvP9Or7apb M0GfD gZk7DCbLlt lN2sa XnX/6ptav9 gjhKl UMPQCQ0/QZ I/q9l 5oCURfbA0W 5nkBk RpzvOr0l6U MV5hC Louie/MlPhpi0 MsTCa DEjkgPv/NR kT8l5 lTHOjwQYe3 k5w4X XgiTr2xBYn xrbuv w9vEwB4Mcb pzh0P mDp13HV4J/ poPsz 1VWFLXE3DH wAQla mpuhdQGZP8 MIDBg Os3V//c3BY ihZux AyKwxNHC76 GQE5g 1zv/bGAJjl ASr09 d7167l84z6 HwUAg K0Ws2ig1Ts fKutd UyW9151bgB u+bhv xH2Ab7zE8B bMnuY NARoKCTUVj x1+fD lVvj8WwY7Z i4+uW FTzC45m5xP M21Qp glAGX66+/9 sl1Ro MeTisgKiwi YRrbh /oUhKv9CjV jHjBk yj5vyHPBDn zxhwc iyAUdQfM4D Bu5/c D4MoBaukrG dPvUl LVn6s8REp3 dKR2T l/hhQYyEnc cxHZs /ZQoQIewwR MdwaB BeAnTY4y5N GbLzV TeJUgQVR0H Ky/7J 11QVytMn78 ucu5/ WPn1btY7yQ 9oSBB hUmWsMUeyX jE77R qt6NGfIVmo dQcoG sBDJdI17Hr i2plh 8RI/MImOGO pegsg zFMrR0qLW+ R09G5 5UA2AvWwHA RKbj1 Fcz995EKG4 EZYdS Rs73r23suQ /gSUX PFLCRSUcI3 YPvfa uBNSFCjr5f JJlxO UWDBuEXdg8 jjwKK 2+u6yx5GAv JvXX2 xEu41PAEZi N4+1g nw8IHgmK9B Pasr2 u6O96UHFJe o9sYM JhMGB+tTfc 0jyw2xlb7X 00Yhm Z2hmeJm1uR EZdzi mhafcGEtE1 lpHwg SwB1fet9S+ EF3o/ PTHEJjopmz iObRx ClJnNsL2gB yviLz 4rOu/Cc6DJ h2vtq zaP3IR3qVM mFD8l XmcqXUyvj5 boLVW gR3Y5gsLPc j84qe B72g3lgTa4 04zdj uSP1PsVIHt YPeD3 ojlrlLwP4Q ATkQo /uv7iA0kOW z2lTc g7AHHMSgNL inKAX OvVZvaRIO2 K6hz4 GZnQESJ4ug ufpkf LhOAEgOpXR tu1tA A0ayornJim OmWVl Zt3M0zgjAC WMDo6 qvAtVqh9dI FFyA6 x2SUia+k5l 0HdXe UJDqJ/G78p fJlP0 EhxSpKWM8C 8SCsC Zrug45LwP7 xi746 BatB0tGHar zxy3g R37grntAFZ rYnZO QTjFaVnG0T MweF5 6rkV8ME4d0 C2VsD 3Z904X2xxX IAEsf JN2+EQKPBL q2qhX mnqBF6eOdK dbEiI yyfb46zXmC w/Ck4 yznfxr+E4+ qALm+ LrbxlIdVV/ ljma3 YMsoj6R82Z gMnOa B2git1gSJr Q76Dp hqIY/pXEPc yXRGQ QCZdW8KGBS tysPx QNapyPvhAM olMfj ZmnU3Xxpb5 kF2Zw 4aCWymiJcn ePGGg VH00MA0Nlt SFSEa EEZoIKSv/c qh/US /qFls2HBMh g4Hr7 Jd6UGDZNsG GUV/h LNj19LXpl2 nDlR6 Kh0hfWMKs+ 5REQQ Azwmhlm9AD JMIws rxhNKtj9ML E88z3 ja1+cQpO4T j6X5a OiA6HDMq5i m6jn0 jqErWk5lcF DJX++ JwTfMgSRtI JbyJi ppv81NKqye 6PHza KYQ7GXXm4Z mwVld 8TuHn6pBmA d5MR/ 7Ijb6qQVvJ RX53h DFNrbr50U3 +RU/7 je13IdJQXn P/lSR wVEKpJvxLV +0gJh I18McJBdja 0WX0m 4JM8w1n589 uTp5D +HyEAhtsts wStBR I1VXHF/6K+ Vd+tQ DEKTYcFKky tqzOd u4dEROgdG1 URku0 GJcoR9tc/u FPZdX SAgPW7pMCI Ky2vE MlwCkXGL+G DgAfo Y9J3zPNt0n Pvp3v WZcwfLIB3+ Nqdoi ZbxmTfLKut Gj4ge 38QyyutsCf t00cC GNJw1fiosa umD3e MsRtdEM5Un iAbj6 C2Rpe0W4dq ekzYE BdjXhy8vDF Jbzt1 y+hUiQmSWV UnfOh FZh/df+3Ny IYJyG EzSM0ZiA6p TkW1H RHnA0CR6pY Zd/ME qSB4DYVVg8 zeCKl BUdid50mWX hky0c n+9nOlz3zW g0PfM LoADrXmb0b w9Low uZcwO4cohq 4dTba T5NeAGcq0H eF412 EtoELAjb98 tk22k WAeNW+gzoi k/2R7 yShGRlfSKE dnhmC LGVyz0Im/C EV6R2 4ukirwI/7O dZ/florez 6hmmTzxzr6 rbReM uvEoscyW3I nRREC i40hyorT6+ 6UBiY gWjRO27/gs zCaOG LqozNDYcb2 hqfVl BCpIp1ksUa VKAOj HJCcARwEF0 OsJ7t vC+HcposLa aTkXh Zpgnp+RWbD 4SCYZ c7KX+2oior PbD2p PEtRNkyYnI 57vP4 m4wNW1yujV yItLY JAWRzbaJWD YhU88 zZbU0v2ki/ hEYT8 ceByy3TbrG 8n3BO FIzM2YfzZu bfxzD XzciCsa+2G Qa1Mf zvkMj3ESZ8 zXaE4 3zEHciAWQ8 3reB2 I2/FZW2zdj rY4vI 4xQTSIgbr2 f+YIy bn5ki4N5Sj jbHbY J1HzTJfSfW 18VGO Kh4Z5H44cm PB1U3 pAgxKCQ+aF OSL1e 9JZN0x6PFR 6PIix FKHaQ20vc0 2q27E 3zA8V4Y77z dqalr 9t9ij5sbdD r7urz IiZgiJERgt uckI7 55nMYtLj31 qrSyq yjm9JGbIZ3 Ei+Mb NxQu6rKne7 0EqLh dlVjUN0t2o oXnD0 Hui5NcsZkr jxYRE 4mjtXp9RA3 h8laf 2MJcmEYBdU pt46P BclWkReaMA pGHj5 6ITWnNfXlE kuWdc hWfIqqB7Ic WMWLj 5JxyLOeRip zPHCR QHEWIEOgSx a4hiP KD0F97x0XV 0eGZO SC4yDAB6Dm kuMIX tFjYncwgd3 e3DzK CLm+TXdzYI xKQcA VxgKHOx8Jo auP12 /dhGhkhxQy R9Fjz r6LLcuqgd1 9IV9c whAgq2YD4Y L4kIt 36vkvL1Ckf w/Fq1 rP6Xi04AsF jc1Gp PA0SCZ0VFh e4pcB MLuLgYaOUA N3U0v Wocb405Znv A5zRI ML2igBVJ6p v1t66 T6MHX0nP9H WtwfK RBiuXVXd57 +jn6J fSIlrrpO/0 4roIo oQNcul73H0 vM6dE HBTVWHklkl UKMBS QAUja9rYFj ohoSa EHFGhIwSw2 C5T1R z8mKWbL4vZ J7/dH k+KotZ5bHq GOgSQ 5Hm2eflwCl CuOMk irLZLcoDnm ewlBh plB3QzVgF2 Y+hZx uykuI1Xo8N Mlnlj WaLIdvTNH7 OWXey PnbAmWPmRV Gl6lw vwBCTMNrXN F4+PS EXELyBMjQg scTou swE9BkGGbz 6X1yc DrvLOXcfED UaLue sh0IzGbK9/ 1yz1N 9pnUQQHVOz IfCFT K3xeLeMLd7 s9+jM YWnaGx3dkf MVdkN ovb88uPYTH PxpWy ApwF3DM/sY iW32N VZ4QpPT7M6 Ww3SL Ihdi46kS4n 1/Lfe IKeByhQa+o l6bzw lq91wR6Bd5 eTpOw 8i72GvV5fs tHh/U NuIR8FYj6D 6cw8b 1Ain/tdZmG mtQ1v 8a4FUtYPwt SJaAO aD3tJrKx+n Sx1E3 6bR0AmwHIp 2jJS/ VFa1dPZjSW QZuDq qgYrJf+GxE 9f7Y3 G+TdaWKrU3 3ipA7 jVZ5vvTrwG gPGHH z9pF+1B5OC 6IUpu 2M6GKxd5bB y0IuO yS/BHplocQ Zgkqf BY9VWAMc1H 5NeQ3 8aZFPzUEc1 jJA2o MvXTsFpcx9 TiCsK uGMNjGsE2f bDUa1 ErgIPgKc6O KT09q F5qazz6gcc Hauow KFrjL4YWwQ mUK+U PpNuTSMHKk ci0Yl 5sz1ywp0qg jytSX ZYVQzmM5UA 8WYgW jDbdgnnBK7 zwaXu vZDmCjKlIw zcqU7 5amX712iAu aTW30 E/jvBs9GQg JXrqh RfAxjRwoue 2Cd6a QNlgwqAzxK y8dNL LXOKzN4xlo bm0jH JKOSw6slzH HcRGd Ft4ZnUPviI m6/7v cwusPLNkpE z/3xL pemV9kPwRx mVNCY SfMzn37sYz BH9qQ fSrRMdp3hH J3Fng ziaQiJ2f+9 EfXcw Atf92pTLkL Nk1v0 zaBEcm7e/3 cAVIx y+z6IwdV0K wQVtx 5eIiTTlzji feA0K tRvNBnmDOS 4rNv9 e7maV1fTui 8cZca XXWV/85jFx WMjwN YoZ/QQJbvF eJIhO 2owYKp681g LPNUb gMHTqqo9wN edOh4 PpOqzQes49 dkpTU 8s9eFBYeYA ZDcYD rEoF9LC4ev VNGDf wcD/r92BsF Ud/iE RLAo12D74+ hcmO6 Jw9dVuflUx Q6TqT NP9fW1vUtF BVB3j N0OHZIpDOO 9boBk 6P43wtEKJW 5ooG6 jQMbHplanw EQn+O xo6z2eva68 9kKSr dAHAah4Ndt N7urq FAW+ZiPzEJ jgBnP opT4jH9CrE JOG36 rTvponP2M5 TXtdI Wz6SQDtQ8q zugU9 u+9E/1xrOU j6ZRf b93X3dd9aa 6/NL7 CprNhU2PSr Nykam 9t4Ms3EV/Z BDIEK uqxmr7E/Rp yIHbq R2lmsW1OQf jtqRl h5/Hh8/yZt aVX9e 8w6tQwiVDO y87xY fa/M2Jo0W5 f+V++ vEf5fVAxOD JV479 JdQljIBmU3 WMBbd cO6vrvuo3Z M3OWc 3NafCfwd8s 3TLBm 89O42vdl0y 5RfqF q4SD0qH2n/ lFTX+ VOM6rA37n3 JS73h wExY09mAyV E2A0s /ZkriI7HRb FVMWO jXr2mZhoXR 7xHRK 5msdgdjMp7 vPSU1 B7m303Yavy FN/EC Aax06aRI+W lSUoE sSMTqntHqz bdTfP /XEHw/87Qg ouqiu PPGhxj9R2q pqX2k C9i7eRBiqU N6X+8 Jn9iXTt8oa 7I7b9 r1MTXS1FQ8 HtgZN Anm721qbmG MH9Ra PX5VcbVgUF lScle lcbr3JkPb/ +Escobar 4fkUd/8COb TgcjG vpVdRn9fcf qL2N8 NagmOD6EuH XHO5L mW7H9HGjyv VJjFw HUIAspuaDC JAspk Z45ey8W/t4 i8Lpn yhXlvlp02O 2ua36 ye/w+W8Ebd CmVuZ IG6dsBjgJm lbmRv YmoKMjcgMC BvYmo TTZaxS0Ees XA8PC 0CS7MfDN3c cGFyZ X8lgZ3ZKRZ ydWUv SyBmYWxzZS 9DUyA xNyAwIFI+P i9Db2 87CO14p3ad IDAgU iAzMiAwIFI gMyAw CHPyP7Y6uC UvUGF fSZ2SPAScp XJjZX N5TR2Pw1wj clNwY WNlPDwvRGV mYXVs dFJHQiAxNy AwIFI +Vv9Kub3aB 2V0IF plZGFYSP3Y ZXh0I G2NnWNzEKV gL0lt YWdlQyAvSW 1hZ2V HIN7Ew068C DwvSG VCbyAyMyAw IFIvS GVsdiAyNCA wIFIv SGVPYiAyNS AwIFI vWGkxIDEgM CBSPj 5oEP5swmPw dDw8L 2ltMTAzNjI 5IDMx RBYnTd56Op EwMzY zMSAzMyAwI FI+Pj 4+U0AimfBj dCAxN SAwIFIvTWV kaWFC x4pmDYThRK YxMiA 6ASYqKv8QD W5kb2 JqCjMzIDAg b2JqC st7Z9lmx6M wPDwv Rr9YjwTah9 BhcmV fD9jgS0PdV 0lDQ0 Nam2EtCAT3 IDAgU l0+Km4FzHK 0eXBl U2Lise8pQn lsdGV uT3FyCELzW GVjb2 LdK6F2sUYk WE9ia iIzhY9QTRE yaXhb MSAwIDAgMS AwIDB yD0Abzc3My XBlID KvNaHcx4Hv Y2VzP UtlXTObH1O ldFsv UYWMC7BdmW QvSW1 hL3ZZQ7olA WdlQi 9JbWFnZUld L1hPY eogT1L2XI8 pbTEw MzYyOSAzMS AwIFI +Pj4+L0JCb 3hbMC YnOAT1WfRb OV0vT RUpB7UlJMW wPj5z rBQvLD7NaY zTz8w 5XQC0M4BEy MkHAB BfJk5DQW0a c3RyZ WFtCmVuZG9 iagoz YmBxDZ8mpc o8PC9 QyBd6WZSoH mxhdG VEZWNvZGUv TGVuZ 8MiSRY8HAc +PnN0 hiCaxQq8pO 1bXVP bPBa+76/wz N7AzB sj+gqk3Ttd tOSdt qNUewr4qCv mNkRT 85cze6K83O sk25L sOCZyYMvQx op1vn IetbHYZF2b OLAMB C3QwVqc7Dg +5Zmu G2XNMGttx/ IRI9u zsTGlxl/v2 Ov8ZW vExLN51bJz bCNsw 7zQ8goASqU /60fj 4MU8akB5A3 8Q85A kNQ9utiVAu jy7O/ f395w4r9+N +Z/vD Ismael/q7DxA5 N330V Phj+IDu0wt 3MmEa 9P3hNaTfl7 JeBUY eNb+KAszhd LOgmL 4+NieUHxtG QXh46 xEArjQ8mFz sZ1J5 PVxBHo6jmc 0dHUV SV38zfrhQu l8m6a J4/JzFZRGn zeJ7k IpKgTs2xAi 26OJ2 eXcznFzdCo E9XV9 OP8Mtl/aMZ ns5Ov 2rayPA21WC t8+EY tDlKsihNXv AA8sf 63QNcvY6BC E6ah+ w0Eltwd431 CNfp1 luYvsV5sTV suljh 8P8rbGPOZ+ +2HUK BJs2IRmv6N xsWOC iDjR41gQqr 4yPi+ spf1DXkNG8 /VOyS VUHAZdiVYf nlP80 nbHkIT+zQ8 Qf9eJ MLm69QH9Q/ yDKfX K7ZSlKeQ9V H8bo9 9/1d0HS8gt g8HVY rNYan4wvr7 Zybek A1x2N+PYSN e4LtE wtZaHfsADY dyGQ6 uz2/PL35eD HkJSM LTG0qdjNsO VGWxh 78PQft4hID FOJxN n8ITdXLqHt EAM+3 bAcPABZDxE MYXDP 1YLURwKBYx F9UJi uvjpA1Piwk dwhnC BG/CpFmdXv vYWHX DxfT+ZBTPW z63u6 tJkiAIv6g4 XgWZz jmVuLBBX4e skTWH gualxHJC+X 5gcTw CqC9qPkJmj wh+QO JMZ0rstnGu dc0b7 59WpLFUrwq 6K6gJ WxAkls7mFt IgqHG XW1ZyPqRjE NcTLg twUnNQxrxJ f10bH joyBSh+dDO 5XQj6 MhW5RzDXtU IkUqV MHjS1c1o5I tOYFp jnbBOFmTFz CjS/C pNoiJpOWLR J9plE iMjXVdn6Xl fozx6 STZQB9QS7W xodTw Nz64kGbBuz fPo2P 1Qmld9H6JP hYXg4 pJ9z9bMiQ2 x/XfM vJx8JYC/mY H4T2W 5q/j4eiDIg q7p+A VJ7Zoewh2H /0ixW TbuN7Dz140 Wce3A JV9y1efN2s w8n1X 4bcEnjomhU plYlm mFoZEZLjjY g/xgm aGRNk/VP2n zdvV3 cqlO2SIxWh OHEPD E781H+MeF9 xGQqz 5NcGBiTgHz qU/GL NClUind262 Fgs8A VHYYhIEvZE 7VwUY 3BqqWj2zcg oNNDy YCHCFOXDwe KLFqt qwtTI+we5v VmFT2 KJMD0u4uow gZGyf mpq51AQc2r HYCZE cJ6CqrVegO n6TqO mEQitwwwHu vLCsE BxEh7lAtEl PSvyF b/R5ZohlMn tT7my Vle93ybrAg llUW/ gV/a1lpPU8 SekBk ieGZ3AYlEp RNC17 3kp7mL5Sc1 MeQqd wA78HxfpFS RGlBZ o4hvmsYQwc 8lOKN LX9SJL1WHY H7pEt pIZJllPeof h6tY/ JfLk+SvSi4 hL9HS vJHRbYqVXU gZAfw B+CvIAwdXe /eC4/ RUw7Ulq9Dg Z/zKG A1mQdaIJyN KGQvy uie+zlNBt+ Lsuq1 TRqVVCTl/W KGSbg pQasoO9XMz zhIgc Wmjit+FD2O uk/y5 MQLqrD0MAT 9UHzB l0DLkV+0vA OtJzQ yCLoUTe/Ej fy/FG ucmLYX4uD9 V0Umf bVZrWjRtwz q5Z2m wJta50Ri4m N1JCI 2goVF+U4NT ekjkQ 7VB0LjClx8 OO0je kaZHDBJKrC miyTe cLB0p2pn2e Q5ORi ictL+rnFDD 5J+iH Sm80ofIfFs ircsk 5GcZLJErdc GpfGk LCMi0OmRqp xkYvp C5NlXZ2Rtw 7I0K3 rh9pDWrhNi UkqxW qO1ZtqCkQN QtF59 cSvwxRKNiV RasPo 9oKef7dkkv neVwr mL5rRr17/A MxEku g55eWTrSDt gJZFq sSmVuHogaV mLLod VmGvPTrh+v 1gPtJ Cvi+yRRUUP al0Ud KBTaeyrZ0h ymiVl Nw0+cUESxd tigcp 0vUrWnRpfB pV0JN 2UdRowdRKW Xnnh2 SH9nx8OuV6 B8bNq bu3ltpFC/0 DB47C 9Oy8Mg+a7l JVCrt 6l9sUC5mLa Unfg1 XPCo2Rqpuu o1DHb 7uQA5ufRVW QxJw+ MeRL1a8igu w8kjy IzNSlRt7si bFa83 9eftTTYtFy dghFe Yt14vsV6yM B7X63 wBsffLAKZv A4yQ9 yAbH/8QbHu 7uPAH nLqVJWiayJ og/eL gD9s4edErk cFE1h 1zpNk2j9Ev dEBj5 3TOOGhxrZP NvuHF euylly3GDL XHQWu eKkV1L545M Qidy5 G5e2pL6KBX m1cY8 2OhAZvBEjD /W2SW 4XN8p9HPF1 YR7c1 K91nHPGU5H Yowjo hxXZhOIwtW a8EOY DVqAzVeJzN WEMGr EvfnW90Onw 0Idrs hH7KTD0nVU POwn2 tmnahfDdd8 6Mcsf y1av6ChavR 6+OdH XX2o1t1u6w a/S7o Klciz3x8WW gudhW flkKTOjev7 6O06V nb26/Q2XH8 6emfF jRbpSTKFzq p3Qmx 7U7AAbMvLD e0u30 WYm+aJhzfe RF4bN e0bHf/PNGl uTVfp e1aXod4Cdq 4NVmh 6nlz8iOxcU GEdTL KqcOiC8IYL w43Sb QNF7699Ypz Jgo5n dOqTHJ3UwD QqImz t0Ufx/Eh84 avhz0 tgq+GPG2qu 3DHC+ ELd3/YUai+ HuioR 2o1EDPLACH Z22G2 MjQaCK0vyW SzF4k 9Mllmi9e3k xWokT EjMYPdzq81 kSTun ohkWwdARVI 3ob/I QpKgfQgUd5 p7KdE qjfJcoofCl rXCb7 tacKiASv+C cVmt7 WcatA6Omos qxGF1 tUw5taQizE yh7xI BK6TtYI78B ZotSp fmUIti+Diogo Zyzh1 mSFagjex/Z Iqu3J KlUb+nFHw/ 1dwt3 5et2CRAOKq zaSuE 5sXdKsSmdK kH07C b6w26WAEq0 fOtWY HQYjcbDexy +uZzc 2J9oBx1mmr agYaf kGKl4UnFuM rG/OP dAC4rRFlQd 31ZAV I/SNUEp7GW fIDOr UDrE66GI1X 8WU/N jTmByc9oAu One4t nUIGnA51cK BHws6 WVLSRUpXtQ gZiRM uLZK+eD1Le +7Ikr /uwvJSCFr1 KDTl0 ax1VWnpG90 7UMoO SluQrGqnIm iaSpJ baHpU8c4Ae M7Y6v XrsRGwaruk qSwQL j/c0OSqe9P o9uVS SqdnQNses7 C+kjL KpFBTu/kE4 COMSP GJdTDUrq2l vZBkr L0BZcE1/Cd MPijZ aC9Va+xWRO tUD5n WiBTbP+v/k GT1Sz kbuS+Wcrq9 T5fmq 7U/E2X9eAR uCA2q Y39aowdst8 WB0r6 OX2qwi3ONW fBMz8 XT9JbBtVfu zVdpg sGZTKu6u5s 0u/Nb e5z+YcS3Cb Soh6C WxlbONvUuA ZW67c CJ8NO4r357 qG8Ra AQauoWiQ0f 9S0Cl 7iET+2C2ff uBNvV J4YB1vWA2/ EGUy3 buhXQhNf25 9gNs5 El6T4LB1z3 4scem ABd3MBeHBS dLpkV xPCx2ly04y UDhue fOiA3kZApF vDEVh pzGD8vPMWJ pFwc3 lVryaLEoSF GS7g2 h7wEelbw0X 6IUUT UiXlBvJLFL shqqu V5esOIMXso mjjfy dori/2aLeWw tRzv9 DlnLBoJAbQ G9pRt jrpU2T92jZ wy/7i CVhnSx1qcs k9+ba +0Q4Pqv4ia af992 zzehW9bQPX UTWOu QdL5eU8UDP svlFU n7uOeKaCpY nYttS Zr8n2JRLdq teLIC ol4B6HFTFk +SS0L ATUhHR6GqN MqJcN p5scGZF02q HZthH N8ZON5RM2Y EBdk4 foZfqpmKSr Vh411 yHKTS24BAS kSGoq 5J43lxy4S6 4LZIF seMrv2QFzw K6kle t9ibwHG0p7 +RjnK fYPbx5Egcq Dcg3N rw1UqgnBW/ uSUrK HpvkySMtiX LzDiC WmKgAqm7UP x3Qag plbmRzdHJl YW0KZ Y1sw3PlClP 0IDAg j4OhLjn7Y0 NvbG9 eN5RpJ9ApO GV2aW EuW2IhxE3O ZWlna FCgKzyxK1B idHlw RE8LzCPeQG 9GaWx 0ZXIvRmxhd GVEZW NvZGUvVHlw ZS9YT 8AhPNC7F4v pZHRo EZX2Iz8YYZ 5ndGg uBtxbTrr6h 1Blck NvbXBvbmVu dCA4P w9jkTAmJA3 KeJzt wTEBAAAAwq D+qWc MN3YKNWPVX B4G+2 OKjwplbmRz dHJlY G8GEI1vv6T qCjM1 WZAdk1CfIx w8L0N noP8wF9FnP 2VbL0 uBP2Zof0Lh IDE4I GJiWl3mB6A idHlw RO1YcMXjYK 9IZWl naHQgMjkvR mlsdG TqK4OzPDTg RGVjb 2FiH5G4lBM vWE9i mmHxpH3GXP NvZGV VLVHrjzb6H 0NvbH VtbnMgMTgy L0Nvb T2bgvTuL0E yZWRp L7WxheLwKK 9CaXR jZRNbG88xv G9uZW 50IDg+Pi9X aWR0a AHzRUAhY38 hc2sg MzQgMCBSL0 JpdHN QTLRVx78hu 25lbn YiBK5QvjKg cnBvb PG4BOG4raY lL0xl udb7lKR1WD Q1Pj5 vqIQqJZ8Wf Nrtmw lUVEfWx2/i JHMm0 bhGWRqatWV zwSWO E+PESEKMii ua0Tg aYjQRjQIaA iKgQN N00/vCqoCA NoLsi 4ACshnDJgF lURFQ UUFAQJRFYK q6kaX kxaaYD83Ov 97R4+ t671Xd+tW9 /3vrC R9gcZPAM2i 5x2ec W5a0JNBAjh TElfK Hr65/12/Xx aRXhC RObAaJ5Qp7 qOf/y zHy9aM7LQB /NQv7 8An8WfUB7j c9NWm ZV0/Ps75Gk RfLFY a4PBbNrFhF oj8Xb R1OFjmUhDf +1few U1fYLdzqBY hRQIs EOOkxbv9id L3+10 aUv9KaKxSz JZWNY 96/hqbHqw+ Gw6Sj NC37tieUYR bxM03 09VRKUDEC2 hCDyH 7jEcktrWUL c0CdD jq6xTgM6TV 8rCv3 BjZqbHmaml e12vI keESTqn7d8 uRl3h GtfNacXt14 /+qbW r/FR6VeSQE 0AkNP 0FLO2kVc0M RQp4C lDCI1EEI45 ojYea fADFeYQiaf zJT4a YtDLEwmgxI 5ID7/ zUZE/JeZUx zo8EG Ha2JnQSqiQ S6eJz Ad6k76j1OX ja2PQ SqEn7aG0ND udVk/ Iq9dV5R7qd yRlQe igcAEJWpqb oXUBm T/DCAwYDrN 1f/3N wWIoWbsRYR 2shC0 OehkBOYNc7 /2xgC A8MFg1AaF0 tfcdd 8Pl2HGNKkG L/YJd zqnyrrXVpC OPN/Y UkRvj6d16C DY+6Q X30oH2qSJA aCgk1 US2qgiy6rg 2ujnW OmIuPrlixG h+ucO 8wjNtUKYJQ Bl+uv v/bJdUaDHk 4rICo mSqWg73m3r 615uS HGFk9lLJrp r60GB AXJ6PbNZ4c iIFJj cBBgft2E+z GkJMJ Fd9R87IJH7 /X+Fy I64Ezcn8d4 YUGMh T9DVW1rP7O KECHs LEBOlUnN8f KVxPa UnFpe56F4N RXCkl 92Csv+yfOy mJoCK O+ihQmb0P1 vInzd qjPaEgQYVJ lrDFH sl4xO+0cM9 0FqQj rInUHKBqWT Qpxtu B5kkmCIbQH PzCJj hjqXoLIHh1 rD97l k/cyHRya9q NS6za hdJJd63KK6 vNOgy gOhGWHUiLv Oa/NZ 01p5QvEfdB wkUlH NF6I992k0V iCGX8 +5iSZcTlFg wbhF3 ZMN66Veddb +8L9S Loif491kTG tPDUT CLDePtYJL9 B0s8U raR3xT6g+0 /dlFg wIaPbGDCYT BgfrU 33D+uoOtZW 298Ic fCNNGIZgtI 64QW9 UhrDAm7qfV n3BhL ZDLeF1TO0u +Xsa9 IBlKy3Ym8i xCY6K Lo0qy7aHT6 KTL0u AJab6x6+Kz rvwnO myZdr0ur2I vF1fI gEphQ/JV5n Kl1Mr 4+G4O4Mlz+ UNKqA wno/OKnmNO JN4Yi xsGGQ2U5Aw dh4jF MQTG9l79XP M40Kj xeSW7UOH43 OGzN8 aCh0fE6BgZ ywRkZ tU4zofUsi6 Wb2kS Dtiuoc+Bjm kTjlt frCl5EOp0B gBIDq K0vntuJZ5q 4pMMU Y8uehtHX6d wNJMM TR8oA8RonK LRor9 8BBRcgOsdk lImvp WMaP4T6nDY 6ifxu /OPkWY8O2S BIA10 ezPEgrAja8 GuvGZ Eu8Yu+OmaI zNsWD AjM3xg9Pux JJr6g ye91B1TeoM iMEpj uBDMHhedn3 U9BA+ XegtlbA+QP NN093 aDCABLHyTd vhECj rT8wpcT26m BGO8C 5IPDjBaV3z qt9LE uW2IwtNMw1 38a/h DKozV3nj41 8ZSHV Qx7H9fiiLW HYvAt /CIDJzmg+8 MIdYk x60O+g6Yai GP6Vx Y5Gt2WhOzH JFN1B R7UtpP6XEU qcj74 BCPUQW62X8 xOVL8 nNZBdmcOGg lspoi NV7bjmzVVl uDDNU gU3zLrYaQB aCCkr /9Qil5Mn3w JJ/Az SYoOB6+0G/ DgA1C aegnLs9Or8 fNADX YNVn7Tavbp mpGBE b/tSSZHG1e 4YL5e IdcWELCV30 iTo7+ PhTTDM677f fnEKT uE4+l+Wlal +UiCr +Pwnl26YmV XTZuI IgwyV/vicE 3zIEk eKTW9pAqVT Ou1Aq cxwdk00fJi PWCE3 tjZsFZXeR6 0LO8k L9gtQVd+wq od7Ei IwkV+d4TDE 6MXO9 UNPkVP+5pv fU3Rj y7j/5UkcFR CqSb8 O0nyWBKZtt Dczk7 AEKBl2ZwBq NH9rO +vbk6eQ/h8 hAIbb LbMErQUSNV Vxxf+ ivlXfrUAxC k2HBS pMrasznYNq 02B5n C+VEZLtDCn bj+oJ /9oA3XNk65 CwerA xECstrxDJc ApFxi /vo3SY5NZz 9I2E3 lCO15d85lJ MHyyA d/janaImW8 Zk3yy rrRo+IHt/E Msrrb Wl9cMTIdgT 6/aLL xl8kn73e8P H5xRe gJYgG4+h9S Xq/Ce 1g0iM8JS4R Wa3dX D0VD66bfho VIkJk roEX3stUZA f3X/t zciGCchlcx GOFni +MV8PmT3EK GPD1N tZ6KyiWJE4 NiSxE pw76imiHSi Grt+4 DgYZMtHJ/t IzaJt mMHFK5dX8L QHEYJ sNtDK2BYS8 5ENHm bWOVU30r2H ICzcr 3xOcjQel7R TWS4r +tbZNtpFgH jVvoM 7VcV1xv4wf RkZX0 uaZP2VpxYv ILuWI vwhFekduLp Iq8CP +pmFl5Mc43 mjoMI o+o75IcYuE Io88l RET1TSOq+e pnXZ2 OvulAYmIFo 0Ttu/ 5LYnhqks4z MzQ2H O1vgk2KOV4 Aruqa CnFSgDoxyQ nAEcB WsSqBa4wjg h3KaL U6ij9J8UyM J6fkV mw+EgmGXOy l/tqI dLm3e4lFuW UTZMm JyOe7z+K9L V2e6W 5eqxRH9BCP kc22i Zi9SLXLLU6 y9bt2 8P4RGE/Gpk YnOA5 08TW6kZtRY 1+Cpm qQ822li534 IgrGv wgaVgIP2h0 jrdgU fM632uODvB lamgx pss56ohfEo xAitr Ure2PNjRuG 0Uh4I m+3/mCMnMO cYeyN Pj97u18WvL 8AkY0 bu4oQYzmLi WdUdv RMbfjWD1MO MSgkP fnGvr0WqOO iOaNF RGejyIsQmQ WldfJ 3+tqtuxOXC +D9w9 9Ynampa+rN nL97c blq+7q8yIm YIiRE YLbnJCO+vH URZQp e+rt5ufp7X +VFbE SfSHrtA16M M+qja 0VfUKj1FpM 71wum i9zN8y9YTI dD2oi Z4P2OVFAjS LyqtD mbUrDMw1xX XJhGA XVKbeOjwXJ VpEXm jAKRh4+eiE 1pzX1 5RJLlnXKCq BapSO 687kOa2+Sc ciznk YqczxwkUBx FiBDo MuZdVUj8h+ 0dvbO xFtHhmTkl9 7zQ0d SmiHvWT8IY 2J3MI Nl3or3ljz6 vk13c 5QOLxAFEu8 DAQ8N Obpah8oq2K RoZIc ESaaAB82oX iL5HY tnNRAaMH3w 66/C2 OyS+JCLfO5 6X09C rLMPxatbmO h6/OG PiF5CUmY7D zQkdF Cv1aPREQO7 i4GGj oGUf6XSrLB H+PPF d9CAg7YFwA I8mTz +Dx6inookg yF9bh OFVrcHyjSo cwD0Z 9dPo5+iX0i Ja66T i2YA3TMPHy ZZ4ee QtbzOnRBwU 1Vh5J ZJVCjAUlRw I7tIQ icaIaEmhBx RoSME dUsjG0LeQj FiMSO mwSe/3R5Pk Xo0do ErBjoEkOVX up3IG i9XbjmSJzj 2S3KA 55nsJQYbsk PFnlZ QtmPoWcbXG 3mNQK pDKEX3D1sk yHb0z R+lov3jc14 wJlj5 pZCkcymU8A QkzDa 8nZhUq2zZc C8gTI 1SKWE6CnS0 +hYQC qovz3ljT54 yzl3H tV0Tg3jtys l6mXT kf8po5JekW 1EEB1 GyiVzrS3uE YQqRT 7g5NihkUDf YgZfX 8bTFXZDWmr Pe6B1 2ZT9nKyqnQ iOjxv 9QHhs8uO7r U4TSN kB6cY0h3Rk 4POMh U8lls71rTr gcoUG vkCrk04Aof /LGfD n+Dy9QyNPC +CJSd 0LsD8j0EIv StyS2 kvAwGGB2JK p/7XW CuzeZJf4Z1 yksDF wJ3dVbLezz ax6Sc /p0sdRN/LF NUXaU jstoyUvxh4 uoDw6 p29Edl5kbK KyX/h sRPX+2Nxvk 3Wliq 6M43pBW7OI trHh7 1wXEgqt8/a RftQe TguiFKbvGe Uy8Kt KAstCLjskv wR6Za HEGYJKnwie jhRGZ tg+TXkN/ax WC3RG LvYyQNqDL1 07BaX LiC5gfUnSu AJCHF /Oaf7UmDyB 1yMhM +erm5Ktq/L XZ3dc H1g6hdVVFm rBOAy IJBiUurE3E bk0jB ypHItGJdKK +sK6t k3X2yWgnom VK8mP QyvFmIFow2 3YJ5w Fn53Uj9m7B 5goyp CBQ3IjC+c4 htffK 199m5e7YA5 YA6+W MaMR28sITq MY0cK LntgnemkDZ YMKgM 0AczDQLi2S lrE9Z 70G9zIgo1u VpuHo jei7LPgOnx y80jr XApuv+73ML rDyzZ KRM/98S7La gN8jc kzlrMQqP48 YHvOM BMwR/akHh4 AxMJu rpBxnL5Q0l hIyeY vxAU38EA4v uOmxl 7scMQk3ZoR AXH/Y i79NHLIfxl 9AXbz uhsEFbceXi Ik05c 80e0hPHbQu zQZ5g zkuKzb/Y9r a0NKV Yn/HGXGl11 lf/OY guXrD5PHSN f0ECW 7xXiSITuJX FR4ve ogGnkAH9fP T5XbO 52HnToeDKw LKBrr /s4USH2RCs ISUlq FoFT0KK62L hvSEd F55OVs91BE /6/dg bKMWy1iZKV L/Oze +/oXJjugse rzcML OFHEl9zbq7 7Q/Li 9XwILi6f+k QVTXG FInT8TDZXU uIJzE r2ipEFvz7F Gx6ZW p8BEJ/joqP H+8M5 IhVSQpu9WY ApMdT 2ZNh4n3aSN vmYj8 dQA9DMp5s5 PHkuU 30CTht+ozp pq5GN 1YB28GBO3/ SigJG zXd5mNIctg RP9ca zlI+mUX3t9 kfX4P JbOvzS+0rG 1HUt0 DJTcpGptbd lHOTT u1BDdVOxGd Io+lP 1fgrT81v/H s3z+F yDL2moZCkj x4fP8 mbWlV/XuLe Wj8Hy fxsoK2AB4o 2dQ6+ WfX/lfvo2Z tsU0J TiiVeO/SXU JYyAZ rJ3vAU2ir8 r7Isa +xTNzlnNF3 7wH37 E4i8kySccR ddaro K3jHS7rVnA 1+Alek sP5RU1/h0V O6Eev NUPPx22E6o hO97i 3xhNgNLPyL X3jtF joBVTFjpj7 /M1aI iV+1V7Mqfr 2pbYD 2pPo8qUS+W vOuw5 tjSZjjJx9y /e8AC PlpUlKBLEj E6p7R 5b16E2a/1x B8P/O 0IKLqorgxg nJZeQ +rslu1jKht OJ1zM 31zel/vCqu 7VQ8/ bY+yO2/lico VU2ND 7cB7WGBWpn uNt5X XzTB/UWkVd 13Kh6 CEpUnJXosY 6dyGx rf/oWkbeH5 FHf/A qs53CLcbxU 4Dp+q zhze1sgGVl s0D/W EnQpvxL7Mz TtgQ8 T84VRdwT4M ALKbm gwiQLKZEtO 8pvS/ 7pEdY4B4cG 552ot Oitrmt+snv 8PlvB M9SynomFeh HJlYW 5FBQ6gt8Sr CjI4I ZLpn6CdCjw 8L0dy n2OpJFerLm 9UcmF rk1MrvgYaE 3kvSS W6kpVwQ6du ZmFsc 6MiB9UhXJd gMCBS Yg9bV40wgE VudHN bOCAwIFIgM zYgMC BSIDkgMCBS XS9Ue YZsI2NpE5R vUmVz b6TwH0ElUO wvQ29 fu6PPpRYoQ Tw8L0 VrAiL9ySOQ R0IgM TcgMCBSPj4 vUHJv U2GmkRKoN6 BERiA qWUA3nTKiJ W1hZ2 DRWQ7TyFMv ZUMgL 9wnCHqcKN1 vRm9u jJx2M0soAx 8gMjM qHJHTC2ucO iAxID QtAo9ENYa3 IDI0I LWuTx0ZFR9 iIDI1 IDAgUj4+L1 hPYmp yM8S5OZ1ws TEwMz YzMiAzNSAw IFIvd TpjTCU4NqC gMzcg MCBSPj4+Pi 9QYXJ lbnQgMTUgM CBSL0 2aQVpcRa80 WzAgM ZE0EFGfPbr yXT4+ WmTgMM1nzc ozNyA iJI1tujt0Z C9Hcm 95yQy5Q6Ay VHJhb nNwYXJlbmN 5L0NT Sn7DG9KPAG NlZCA xOCAwIFJdP j4vU3 BakFtmGP7S b3JtL 0ZxiLSqrc2 GbGF0 PMIcI84cYT 9UeXB wA0kTOzjgI 3QvTW S1dva3DbRh MCAwI DEgMCAwXS9 Gb3Jt VHlwZSAxL1 Jlc29 5esGxqpx3H 1Byb2 RRMRUnI5QE Ri9UZ Ts4Z9bvYXy lQy9J bWFnZUIvSW 1hZ2V QLX3DW3CvM WN0PD wudI5rLRT8 MzIgM zUgMCBSPj4 +Pi9C Ea64HaQiNY AxODI jVlouR2imr md0aC AyMD4+c3Ry ZWFtC nic08/MNTQ wNjM2 UnDJBwAUBQ MICmV vMJT1buChs Qplbm RvYmoKMzYg MCBvY moKPDwvRml sdGVy M9VuEWDtDH Vjb2R cO7otsbr1o CAxOD Z0Bu2yiQKa YW0Ke Ke6Jedoe9J Ufs+v 2Jm+SDMV3g u7sOm TbKmxWttyL bWdTN GTXG7pxSJt Aur63 /cAYkGKoQH Fikcx IJZzzne+c1 uM0N+ IuBRh+KES2 dLiyK EG6asMljeZ m4t4R TATzEajEP3 yLr09 s1ivlfQxlQ 1RwjB phHt8nUNaK fPZrd DFtboMEXw7 fzLrM DyLiiGwD7O mmz96 tw/fve//ie Y/vUN wHY71YHODt +HfRA 7Uv1gFGwjP pRYx2 1BpnZ2E/w8 i+EiM OoM1TdKtXD IkiPt sUR8Y5GrcW vg0Ua 0TBbA7mJU9 J7Hld jDsJd46dHa Fkbcr EQwmrzHv6a Li/FY t5zQuu7TqA cRq1w zvKRrdjIej y/F8P h0fPr8Im6N P8Ml0 /n04GFiI67 a1enD EV2Mtgx4T5 1Mbz1 f/4wHsdPex zQuDH eL5HTXJqk6 t6sVm BA5ewPZ1aO pH1v7 bkWicUJU7O wRfEM lJPXYYnwqe cAu8X ojEzlE82X7 jr4Rk 8Vmd98oj85 Jktf6 qe8DkFVSUS C9pef exOCJUYDJg 0nYa/ XiSRjfTqyH IB13m k+ldUyoSaY o9Sdb fTcrF8HoIW MejZv BxzJPcRq9Y 5hnUD abZIvXrKWL 4BWEX EAMyxt2xWU cKGU1 vZ5zEtm/jJ i8h17 MF9IxxZI4A NI3bu BeXSeXvREX mdDKq mx4hL2q2BU HhUGa ThoKVVsRTB Nyn5k E8wcmOH2S/ L1YXc 90K1yds9hb FMlDE kMpLXTt2T8 G9Pxm I7i6AEdKeW H1XA4 AqrXyc4IZm gudrb WghRjhlN8P 2Hosw pZ9rFKGuL5 2EG3R Gb2dpyBcPd PCUlb IMLIX2XmU6 GBTfP q/8Jn0oIm/ dQkug NhUCs9WwHF Owr5P ZFQLNhBHtB WbBLA YnFSe+l4X0 cx8J3 EDCSP2Co0m YmOfs zNIgNJZAk1 IaFSv QaFlPbeIg2 7VoVy rc8OOoLydP mt/6y oiPmVZPk7k 2rTw/ NpBOGtG/9Q Jvpao GIuuuQ6F88 bpnjj 6lTeKnfnFq M2fAg UTNPg01PHA DpHT2 uLdKW0B0a9 ZAF+u 61hgP9GxgL 276uF 7oCRRLO7bx Yrg6A GtM6AzMH6j 1t1sZ aGbJZpNZB4 C8fKF vNcFbrnDSD v9Q8Y FtEehUBpRa VEq0Q RwcLCA/UEs ivzjL f/nF3fn/Pl rDo5/ A3rqTYxbkb fgAvz jcj+Fx+dGA uBbJn eUwto9uhvl 4lTpy 5uwVgmMoVE y60nW Cmx80PbFcw qZQu1 ZPbhNLwEIo Rzh7u Jb0LdAbcFy DZV5R 2wdkYIMmr8 RVMF5 wKUlxrZumX /r/VY CNB/wjgjTp ShzrW UOp1yagBdN kLaGY Z8w7tIFPMA MAGY/p KZDXmpE/UL vqVo2 tIM4UqWWlN abcVt H52d2hKvjf cH+t/ IEnznjquK1 AmKhl cK66HOmH4W dLgb2 WJiPWjDmO9 iNrYA rJHqKML5il 3BY1L GcnWbUj9yx 7CYPC zHeW1tk3S6 aPyKn S9MCDXLptl vZZ/v 5gMBl7Tf3o EjzVU xcLSpyTIqF C2A77 t1AtdhAUAb 5j747 DsWHTQRmVh dyR2W 5h470f9O0I ohuH+ fuIq9UqCrA ddtgd grRmTdO9Wk s8G0U laDI14xa1t E6jVJ eNr6bvCxHN ITSRc dk4ve5SRi0 K/bJS Au3KbtoT6A OUdoD E1+qx9v2w/ A6WW7 3g6qbPUyDV ED4Ex x0BZEhQBg0 8nNzf jkdlE+PVhN rn70M pGzCyHnCEM bAnlk 3PWcdile4V hNvE3 zKBP71d2hY hFKoo OmtxgeVFS4 CqdAl sm6WLvg8ai b78pH W2JspIhYum ZhX64 pi4bEtWbKF 9AKKe B+xOBcD3Om gT7PU 9cSTkOfmtn M7cjJ rjsXU5XnIe NAx2H B9QBfRmHZB PFwTx 4nPADVczN+ wXZTv tqhF2krlUj amsa9 LcdeNxWChY d2foW YAUJI24i4t nS0KI i35yn79t6x LU7Un a499mJHGzg D1msX 9im5mqdnQ/ aKObY 03y1MWPtTG 0uNzr TCNuTe9Kd9 VE6kB Ba2cWf/WIO S/pMb tiq66711Hy ztTBO o6XkuR94de J9uXe bUN04kL9hn tGmlz nR5Mq4i/bM 1taiF C6pPu1EXyv Ud+Rr dQ5+o0LGsD xDEqb S5EqIvcOlD QzrhX nz/D8ZjXYt qOA65 7oj7LOfxYI XcEKz A24BQQx1Ke WlnHs v/WCty90IH flG8q aCHbI47YDs 3oVpd oMTM2GV1Q4 S3ytD Rz7p4eFlFi he2sw n1O9guPfx2 ijrOj ajxnrJy1Px QgHad qSemini7Ka PWVtB h3H+3rx8AP nXyjt +5/hjlig97 Sdlte wJNE46K1AU BRDpy LQGWPJMqSp /ReP7 Ok6ik/AgTt cRrC0 jmzaT1RYY5 fR+dJ a08T9I57uf 251mo Wva4pqu/Hr 8cGB3 A8XAbKlhMw MLTAI o3/y1Q+udR oLT11 eAQfudxuuP s8nV8 MbUH/DE8P5 jlo2a S89/7zQbqg plbmR fqHDfDL5DS W5kb2 SwSjE8JXAe b2JqC ro4I2DxcD8 yU3Bh P8FoSWJ0vK NlR3J crD0PTZvus HQgMj awJ3MttHjd ZS9Jb WYaWP3DhUe 0ZXIv RmxhdGVEZW NvZGU hFSwvWF4BO 2JqZW A5J6hwOZHp IDE4M i8BLN1xlDd gMjgv Byu5z6Ympp NvbXB ozvUkaYQ1X j5zdH PkPY6NlYtq wTEBA AAAwqD+qWc MH6AA EPWZPV9Q+2 OKjwp lbmRzdHJlY W0KZW 2sb7DhWlG1 IDAgb 6JzEhs7V9S vbG9y C4ZfB7MsA8 lDQ0J zg6WhCBP8E DAgUl 7pV1MokNjx ZS9Jb MPlVG5HZRk naHQg MjkvRmlsdG VyL0Z sYXRlRGVjb 2RlL1 Z4oUNiRS5z amVjd L9KABCiYFQ QYXJt ict7E9HajY VtbnM iTXxnY9Wgo G9ycy FyS4FsPTXp Y3Rvc vWvFS8EuHT zUGVy O23wdG7uFA 50IDg +Cw5CvPF0j CAxOD BmE62tv6al MzggM XIUV6EuiHQ QZXJD t11xm57jcg QgOC9 JbnRlcnBvb GF0ZS X5ltMnH7qv bmd0a EB9ICI0Tg5 zdHJl LU2GsGmstw lUVEf Wx2/iJHMm0 bhGWR qatWVzwSWO E+PES PZCggzl2Kq aYjQR jQIaAiKgQN N00/v CqoCANoLsi 4ACsh nDJgFlURFQ UUFAQ SUAGBy8ieL phkbR I68Hq88J2+ t671X d+tW9/3vrC T1vzN FQI4b1o9gx F7s5N LVYxeTElfK Hr65/ 12/XxaRXhC ZXxGd M0Dx4wCz/y wHa6w L0TYM/NQv7 7Ad8L vOA0yt7UHg ZV0/P x79OeVnHXN x9DLe CqMxVon9Ob Q9VNw nYcSz+1few W5hYY rjjJChRQIs DRNao co6kfZ3+10 hQp4I mExTpJZWNY 96/hq bHqw+Gw6Sj MM15z jmLTQnsS51 94EMH VBUT6fTZeA 7jEck nvFKAd3CwW np8fK bL2YW2uUh3 BjZqb Jrqsui82tT sqDNB am2d6kOe7s GppTd rGl51/+qbW r/YI4 SpNEB1HoWW 0GSP6 xKn8FNPz5L eAOZ5 ULJ27lrHuk fADFe DVcjafZV6v YtDLE rinlN3HL9/ zUZE/ XxIXxmg1ZR Ht5Oc ZUzpMB6gFa Vm8a2 0g7RDxr1EI IsKc4 oV2ACflIm/ Tf6aD 1W2mnxQtQa igcAE JWpqboXUBm T/DCA hPSrB9i/3N wWIoW scUAI4dqY6 OehkB OYNc7/2xgC Y5QEq 2TiR3czyus 3Nx8F AIAuRL/YJd zqnyr rXVpCOPN/Y ImLvm 2b00XEY+6Q O02zJ 2oBMTxXct3 FY8df yx8ls7ugcD OmIuP rlixGh+ucO 8wjNt UKYJQBl+uv v/bJd DaANm7pLZe sImEa 38e5c948nL JFIx4 nHNahe60AK DHM8Y zWU2miYKBl tBQbu f3E+zGkJMJ Wy3T7 1JRE5/X+Fy L93Sk xl4i0YGSJq J3HMR 4zV3ONHPQa METHc UrP5iJXaSv NzRmy 92H8QHJOyi 92Csv +yfOymJoCK O+rnL zl9Y9qVebt qjPaE gQYVJlrDFH sl4xO +6bV08FaMy rInUH KBqWTQpxtu C8otq ZYfESPzCJj hjqXo DTKv4hZ57n k/kdP Mmw2mVS8ri hhESm 90KW5jSDzy gOhGW HUiLvOa/NZ 80v4E lFzxSwkUlH CN2D7 24j0RrSSZ9 +5iSZ cTlFgwbhF3 YPI48 Citvm+8L9S Cnib1 19rGZtPDUT CLDeP fILH9Q5h9W eyT2r K9o+0/dlFg wIaPb GDCYTBgfrU 33D+u pVqJT914Fl fCNNG LGbaS12JV4 GyxGX b9ouNx1QwL RNZaR 8IE5w+Xsa9 VPhBd 2Em7caUV0D Zs4jm 3eQG5HSA0p MUcr4 i8+KzrvwnO gyYdr 5ck8XcE8mT gEphQ /WR8hIi1Gh 4+W6C 1Vrj+UNKqA wno/O AxgXMFF9Gh cvNOM 3Z2Qaev6dI QZGD3 m76IXH58Ti ekQE5 YUQ20VOtH8 iCs9p C4LyEmfZgC gV4py rJky8Vl4uN Dtiuo c+BjmkTjlt anLn6 IPl8XyGHEd V0bbt mAX6c2fTQT Z5jpl jWD0yvMWET EV1jA 0EubOISyw4 8BBRc gOsdklImvp OZdB3 X3gCX5gmqh /KXyZ R5M1YVGL55 ezPEg oBmr3QfhCT Eu8Yu +OmaIzNsWD KqM8c h9XwfGGn9h yl62J 2TgxZiMEpj uBDMH xyhw7R8XD+ Xegtl bA+OHNX814 aDCAB LHyTdvhECj wS6tq cW61qCHA3K 8EHWx VbX0mfp2UJ rQ8Pw gYAm825u/h OPqgC 2tp682AALB Vf5Y5 mtxWMHYvAt /CIDJ zmg+8MIdYk x60O+ w0ZroJL1Tw D3Ml0 UbQzZNRE6M V1Lcr S8ZKHpoy96 QDKJT Y62Z1fHKW1 nNZBd mcOGglspoi XJ3jx hoBGeuDDNU nY0hU hGhBGaCCkr /3Kof 1Rn1mFG/Az SYoOB 6+0G/DgA1C mjxlF n0Ik1gDGOE MOZw5 UekoempGBE b/uUR TVJ4p9GO9t QlyTC OJH07zAl2+ FyRPP X432garBHP uE4+l +Wlal+UiCr +Jpuo 59GqFXTZuI IgwyV /relF0pPYn bSCW8 hVqTAXt6Ds ccujx 76lOvKMMA8 tjZsF NKgU47PL8k Z1neT Ef+wphh1Mp IwkV+ r0PLR2JFH2 UNPkV P+1bmkI1Oo y7j/5 UkcFRCqSb8 S1ftI CYTuuDczk7 XZNFl 0HwStIG1iM +vbk6 eQ/d4vGVdq LbMEr QUSNVVxxf+ ivlXf wFKgQi9WCX pMras leLCt32R5n C+VEZ LtDCnbj+oJ /7hT2 RUp43SsccI xECst rxDJcApFxi /hg4A N3VOf7N8G8 vHD76 z74jWRNdcZ d/daniel wEvD0Hz2ox rrRo+ IHt/EMsrrb An7dN HAkyU6/aLL pn7pg 31r2YA8aHs gJYgG 4+h9SXq/Ce 4o3pM 1GG0GHm6hY R1SW8 7dcvoVIkJk llVJ3 meEYBk9C/t zciGC chlcxGOFni +XE5F vW2LKEJE8M oT2Xf eQYK5QwWjG qu83g ipTApGrt+4 DgYZM tHJ/tIzaJt bFYND 7nK6ENYGNN dJsPS 6MUD80WVWr sIOHU 30a2EJQijs 9kXhe Jpv9SJKO0w +tbZN tpFgHjVvoM 6IpP9 vm5qbSqYP4 ihHZ4 ZgkFyILuWI vwhFe jvsFxZk6HI +znWf 0Cj24zkyNV o+a20 FxUaVTk33y NFJ0U RAq+epnXZ2 OvulA DyMWb5Idh/ 4LMwm sdw7nGwY3Y G9oan 8JFD4Bxxym CnFSg DoxyQnAEcB BdDrC p4sbtd7CaK C2mk5 H0GkKQ9qwG mw+Eg mGXOyl/tqI qKz2w 9qTxLUTZMm JyOe7 z+K6TP9u0A 8xciL U5WKWrd15b Vg2IV VBIZ5n1xd2 8P4RG E/GpkYnOA5 81PJ9 wTjWI1+Cpm mG238 fy070XcbEb thkGt JU9l8soteZ lN812 hOOpAlamgx htt63 gdiNvxAitr Krq2O DdQkC1Fj3A m+3/m CMnMOcYeyN Fa42x 36EpN2DfY0 ow9fF RjiXdWdUdv YMzwd DA6FPLGruO mhTki 9XvDAiOaNF RGejy IsQmQWldfJ 3+tqt uxOXC+D9w9 9Ynam pa+yHkZ75a blq+7 j8sIwTJxQR YLbnJ CO+vHURZQp e+qq0 sqp7L+VFbE ReRIv jG17UM+qja 5NtBK f0ZiF73kpi u3qF5 u3UTOvL8ym I5I8W EROrKLyqtD ieYfJ Ke7oBWFdHC XVKbe OjwXJVpEXm jAKRh 4+skC8ibA9 5RJLl nXKCqBapSO 181jF i4+Scciznk Yqczx wkUBxFiBDo EsWuI Yj0l+0dvbO xFtHh cFhz35fY1r DcpLj GD2SD0U8XP Hd3tw 6vhc0mx59a 2CMSk VSAz5GCI0M Urmrj 7dr9BByUJz UMkfR W77eXhI9BK cuPSF yEY4o73/C2 OyS+J EXjB93Q73W rLMPx atbmOh6/OG JjI3N SoC3YnSxdE Ar3uK SHOQ3v6LCt lADd1 NLxHJH+PPF a5QOc 1DSnYS9tGy +Lb9b umrwfzO6zl OFVrc McyQmmjC6W 9dPo5 +gY8xRb49N v9OK6 AJLTnYI1ug QtbzO vFTnB0Hy9X ZJVCj QUgElB9sQS icaIa EmhBxRoSME sNguU 9UaOsFiMSO mwSe/ 9V8CkTx8hc ErBjo IcYLUiw6RR z3Qrj wIBzi0C8KL 55nsJ QYbskPFnlZ QtmPo KbnLX7jKMP eGDJZ 4U4xyrDm5d R+zll 7hd30kChu2 kVRpe noS3LAevFn 1zReP c3hOvN7iLZ 0ILHE 6LqK0+hYQC orul9 dhZ97jbu7T xA1Gi 6tiitn3yXE uf9cs 1CelL9YET4 TsyHw aP0eOCZuYA 4t7Pf ozADoYgZfX 8bTFX EKTnsWj2Y9 0WT8a VshqZiOjxv 7GIlt 7bT6lW0MDG xN1sN 3i2Wb3OTDb N6dfy 33iCngcoUG vqJem 88Mct/LGfD n+Hk6 TsPXO+CJSd 8WrR4 g4VEbLsxP6 txOnM PG9QIp/7XW ZhprU Tb4O8ckwCA bK0iW qWormda8Ut /p0sd RN/LFNUXaU jstoy Yiqw4suAp4 l00Gb z2qzRZxB/h sRPX+ 6Aabi4Byon 1N94q OX6REeyLq0 2zIDx hx8/aRftQe TguiF QafEwIm0St KAstC XxlsffB9Dj HEGYJ KnwiejhRGZ tg+TX kN/hqNJ7OF LvYyQ CpHE048AvP MfU4g rCpSwAJCHF /Zmw1 CgUbO3vDxZ +xik9 Pah/LXZ3dc I7h2r qMBAbrBOAy IAZlC ynV7Bln3aO ypHIt GJdKK+sK6t q8I8r EyfnvLK4uR QyvFm LNsr16ZT2d Su88G j7o7N3zaqx SMM3K lO+l8hoveR 032k1 i1LN8GA2+W RcCV6 8mSWmJN7nQ Lntgn emkDZYMKgM 8SsvH WNr9QodF3O 38W5t Qjc7mVvvZe owx3E RdRvmj66wm XApuv +73MLrDyzZ KRM/9 7L1WwqB0zm kqplT NgG85FKhBD BMwR/ ukUd9QoXIe rmCdx G7P3jrXekK fvRH1 1QS8jnBmyk 4gjZN u6EuQHQE/Y v93AF MQctg5TTze uhsEF dvfLtEi47r 44n3g NTkWynXH2i zkuKz b/N5kv1UAE Yn/HG XFw60hr/OY xcVjI 6IZUPe2FIH 7xXiS IFfYONN3kr tbSzz XI5bWA6LxI 52HnT oeDKwLKBrr /e3ZK N2DInEUCpy ThWQ3 GA79ItpZGb H71TR g38HA/6/dg bBVHf 4hFVTL/Oze +/oXJ jugserzcML TJEOk 4fwk17A/Li 7CwVQ d4w+kQVTXG EBvW6 AZPGOuIJzE y0uaK Sdy0LTd6IP p8BEJ /joqPH+8M5 OvPZC pu4HYDbXjZ 3ITe7 h9uAKywTc0 xCY4A Jf7g6GXzoU 30CTh t+iwrxy0DZ 2NE17 XSD8/SigJG eXc7o AKymdHC7tr zlI+m GM4g3geD0Q JbOvz S+9aP5QPr0 DJTcp GptbdlHOTT f2QQy BCnXcIo+lP 0aciB 26l/Hs3z+F gKY7a mEDuyb4eU3 mbWlV /ElEuIl4Pu zxsvO 1HY1h5cG9+ WfX/l tsn6ErxT4A TiiVe O/SXUJYyAZ lN1jA Z4kl2w5Jpq +xTNz ttVZ17oF22 O8d0y wZvdGddaro O7uUX 6hZfQ1+Alek sP5RU 1/r1VD1Aki KPCUu 01T0syA50y 3xhNg SUKsVY4fiH joBVT Fjpj7/M1aI iV+8R 8Rdfz8toAW 5vLz0 lNU+WvOuw5 qcRTf xAl4r/e8AC PlpUl NCBMsF7f8R 6s23U 3z/1xB8P/O 0IKLq orgxgnJZeQ +rqal 6dRhuQL0eV 31zel /lBuc9JH2/ bY+yO 2/latJG9MW 1uR7Y KCNuhcCr6A XzTB/ KUlXz74Pj2 CEpUn LIuvW8puWu rf/oW cmlO2ONx/A jm04H PwjvN4Kw+q ccai9 qhZCru9H/W WkVxz uY7SaIadZ1 H31SY dtL3NIAQgz gwiQL ZFAwV1bgD/ 7eIvC 8K4uB624gl Oitrm t+goe4YbwL G3Qpl bmRzdHJlYW 0KZW5 ho1TpNtJ4T DAgb2 OzIek9W5dw b3VwP LjeAe4FwuV uc3Bh pcRiG9nkFI B0cnV uO1hoRrYyl 2UvQ1 MgMTcgMCBS Pj4vQ 29udGVudHN bNiAw IFIgNDAgMC BSIDc tNESLSB0Pk XBlL1 AoS7VfXuKo b3VyY 2JwPRdyG80 sb3JT uBFrFWb1X8 RlZmF 6mXURF3GoZ TcgMC HXBi6iVSFe Y1Nld YDoZ8VPHsV vVGV4 aVOiPJ3eY5 VCIC9 JbWFnZUMgL 0ltYW blJZ2sQb4v dDw8L 5tdPo7bDmY gMCBS P3tfHfYnSI AgUi9 PLAk6EZZ5X DAgUi 0ZIC9nQZO1 IDAgU j4+U9zTBmn lY3Q8 OU38MxBnPk YzNyA 0MSAwIFIva W0xMD K0WwJrRpcv MCBSP j4+Rr6OMOZ lbnQg MTUgMCBSL0 1lZGl xIg16JfMiS CA2MT IgNzkyXT4+ CmVuZ W8jtux8CGF wIG9i hmt8BU5Lcl 91cDw 5B5DvVDQgb nNwYX YjjnE0B4FD Wy9JQ 0NCYXNlZCA xOCAw WNWiLz0rS1 VidHl tHC7Qa9QgL 0ZpbH Fqhs2QnHJ7 ZURlY 47bYW5LuSA lL1hP RwnbX1RsKO F0cml 4WzEgMCAwI DEgMC VfZO8Zm6Zw VHlwZ CLtX0Uuw70 1cmNl ktf7N3Ico8 NTZXR jD9WIHi0DF Xh0L0 poFWhxMz1K bWFnZ TUeFJ8jM9G JXS9Y V6PxLDU6ZO wvaW0 oPRY6OuCpS zkgMC BSPj4+Pi9C Qm94W zAgMCAxODI gMjld F9xbzxf9lT AyMD4 +t0CvKEWgG nic08 /MNTQwNjM2 VXDJB wAUEQMLCmV uZHN0 cmVhbQplbm RvYmo KNDAgMCBvY moKPD wvRmlsdGVy L0ZsY KFqOPBot8Y lL0xl jgw8qNMhHK MxPj5 epLFuYE7Ka JzVWm 1zmzgQ/t5f oZn7Y s+ciSQQSLl Pju02 viZxzvFdp9 N2bih ZeHMdpOH7f 39/Cx zKHVMABT4y MmkMQ eyzu8++SUX oGyKc IgzfVCBDaA xZ1NS YIQTnyFmdR QuCdV K49OROd6hF H08eJ kjHJrKYoVG iY6LD o+kzhnYQ5n 9mgc4 m4PFU9J+ze 7UOo5 9TvP3WjRKS 6lPne vrLefcLmv3 +BqHR 0Q1xIW0bIw sROQS +gU3pCMaKe 6Qbmg 7Oj7O80pXE e2Isj cWQKD8gvi8 fdVGP Nkw9euJycE tR3GC XBhTZaM4RJ ONNJf tYHUnt2HXi bzKFL jZBtJSbMLu +lnPX sj5lahZ5VB 6qzds X4yUyY4jKt WajqQ I0GWwC19RE gvXX7 HDm1L5TmwX gOmtr j4ih8OEtT9 Ynf+A HdXT6fkEaz abSns zk9ksdxCYb iZXbS T6HWkohGg/ /dkI0 RgoSrDOCz4 hgpNx 3TGx8slrcy z12EQ Fy3aUqJf+Z Qm/Oi NsuYrgTbBf Lf1Jx bo498ENZyr refMw +WQfy1tDZZ VX6sR Cab8axM/IB y2w8u alKRWacYlv JuhuY s1Q8htCPl2 fV6nH hJmsPi5een NQVqh mu7Pd7LbzX 0c8op xbvW3HfLnj Zju8G l/6hc5LRay Dnmkk bSpjKdRCnc QN3oj racMaSBA8F h+XSo qRIcs9BaZi VDVJR yDKC8ZxBfd weRJs LNWiu+GdH8 mzmrm U2pps68nvX ilgpR cMvQe1xaGj Xo+Gs cvbo3UbmkE sBwWJ PcshTRq4Vf 5auKs MmqEwdAK36 OIEf2 c4cEg2s9Rd 84Ob1 xu2TyiWG44 8nZS0 oYfEgFfu09 LO/Pi qrR6jrHk6m Q0sgn YLJt/5cqoZ hVyeT ZtYiQFPo2m WCuwi sdX74wxDPR 11k4o 6mqHn/NJcH W/Wej BbwZ9qTdDZ ypSIJ fVol3DXHXd hGmzp zKx09JUoTy fm1J+ 1QPnGEcwja pbS9S Ss3MXw9d5r 3F7Lo 4BEf45tTE+ /b6tP obEx15H1bH d3q6c BSrZKODALB IkJYO 9yxhC4x/Ut WQBfL osOqKIl7Mf 03+bp wdh6qtOpQi THc7Y KxVzi4cw0w pb1ZK NPcbVerRDs wyOMz wAUBv1REdm v8p8B 7hkagU+lRq lEh0A oxcLAJ+YFq AnnZV jtAn31X//X QEl79 qT5uPlbgrp /pO/j F3UwCc4p/9 QjXSP ARnma0LJck wCMxM pipUkDwGQq VLrjg srMwVP4r4Y I1Gex SnMwgmgkLo Rzh5O XqsiXiotlW T8EcA Hf4FBTkiCk MFZQ3 yHXzy0oQ1S P/HzS g9mA7A4Nux MTS9q Kqnj4gYxHE XEIxE 5wcHVlUgAT ATA9E VmVO+kyNrF /Zy2Y yLZySSx0RK VdQPw vsNNvPM9IL 9f3Wd +XEbjh6lzp 3HTcK DxSBZbBSwR /aaSa R9XL0GxX6i kPyZ1 BEtmlqrKEg DBLQl mLoOV/Xkky YQEiB iagraLbMau RabiP KPw9Nf8lhX o4Lpq 4DhZsaBqce Sssvq dUWGiB0Lc4 nkNfv 4bL9i4XdNB kOUGU 1tvFK44HO1 OjG43 FCyRpKmEbD CKhrL lX5RGG401F KztK5 htqJ03c3PB 0MkLm akbSusjptR sH+8K aS2ooPmRyn ZQRGA kQW8WkfEfv kMPjz JqdSCcH9r3 T07uf KXI6m/duPC YHP6x kV54pKSiAE Q0D9I 03o+T+pBAa nGold y1/fvfbZ0O oR9pO St5G3dbWWU Jv5d7 pw5lFmYyAC SE3iF HnYgNREGuX hskKd ErNYrdXIF6 hhdAX jcrInmBJYv iTqff hMkC4ZOwma J356s Z4bteKGr3w YFBht adS4UQc6k0 gHdRL HlEI+zitXt r/Y2g t5KzgBqCtq WSd0P BpdiPIofkl Pwdzf MFx/prMqUR /nr0G w8N3I/d7KS 3WMRw yEITXYvi8q zqtdD 0PqAiVXK7B dDyaD ff48fHi69C bT93W KqF2B6O5VT q0bQu P1a/VV4C8U O2W2b af2/QpbkzC S+DWb 0UjzVgo9N3 Qw5Rp t1FuOk+1ka OSe7F ViiG8XdXTJ jG8hV lTQv3SyqN4 4Mnx9 5qXJIb26Uq l7Obk cbO2qOAeed JVX3U 0/Utn2VlcY dMxPU IunL906LJw po6ny sy9Mke9oN3 j5HjV 0p3c/aNnLE 7iriO FLOZfzV/c/ teJz5 syO6LLjUx2 YW8Zu PLNXXTpz48 e2UfF e2p5EYbbwK xntKC Q6IrVe5kDe 2UVN4 0I5FDCXMJz pUF61 Y6bQ9SNxjk MI46D rkeEwElQ4A DCvDL /UURFyJolV 1F/bl fAcZeu5xaG MoGLE XsnzmrCIiG sGzw9 vpn9xSn6O4 Bt50o q8YcyVl6K2 Qnfh5 y97geCI9lA ZIgy+ Z9Gulpb62a clEsv aa1/qIUljH DJdeu jlo6B6cg9n 9N721 mko3X2vZy9 5NPwf Un/DHQplbm RzdHJ zWQ9PRZ7nu 2JqCj M3LUWfy6Ae Cjw8P h2DLM1oz4Q qCjEx DVFko4XtEf w8L0R gm7LsGJUyA DAgUj 4+LeAcTA6v ago0M zGcKL4wbuq 8PC9E WzIxIDAgUi 9YWVo gMzYgNTEwI G51bG niBg7JUT5q b2JqC aP0QATqf3G qCjw8 K8HzHmYxJM BSL1h ZWiAzNiAzM zYgbn VsbF0+Pgpl bmRvY moKNDUgMCB vYmoK PDwvRFsyNy AwIFI sODgfYBR2H DY4MC BudWxsXT4+ CmVuZ S3czdy8UdU wIG9i dli3PU2LIw IxIDA gBh7RJCouS zYgMz V3JA56dIhv Pj4KZ L8zy9OtJeW 3IDAg j0YqGob1Q1 RbMjk lKEBFZ6yMI iAzNi X8VMRxpiBb bF0+P gplbmRvYmo KNDgg MCBvYmoKPD wvRFs yOSAwIFIvW FlaID J7CCP4ONWf dWxsX T4+CmVuZG9 iago0 DVPoNX5tmi o8PC9 EWzIxIDAgU i9YWV ogMzYgMzM2 IG51b CzlRs9OMP0 kb2Jq CjUwIDAgb2 JqCjw 4O3UrAituK CBSL1 hZWiAzNiA2 ODAgb nVsbF0+Pgp lbmRv YmoKNTEgMC BvYmo KPDwvRFsyM SAwIF IvWFlaIDM2 IDMzN iBudWxsXT4 +CmVu JZ5uzeh4Xt AwIG9 jlju0RI5PF zI3ID QbZw8WDTyz MzYgN fohCE64uTi dPj4K PM1ix6KmTg UzIDA mi0SzWwj1O 0RbMj YhYGHBV0lE WiAzN fH8JGVdslE sbF0+ PgplbmRvYm oKNTQ gMCBvYmoKP DwvRF syMSAwIFIv WFlaI IV4FAS8DoY udWxs XT4+CmVuZG 9iago 6PSKsGI9oj go8PC 0VXbH4HWFn Ui9YW VogMzYgNjg wIG51 tUtwZu6ZUQ 5kb2J jRcF4JBZwk 2JqCj d8F7LuQfRf MCBSL 1hZWiAzNiA zMzYg bnVsbF0+Pg plbmR vYmoKNTcgM CBvYm oKPDwvRFsy MSAwI FIvWFlaIDM 2IDYx MCBudWxsXT 4+CmV fEI7kdvn0B CAwIG 0ndbe3AF6Q WzIxI GUoPq3ZWDy gMzYg OiNpBA94lZ xdPj4 OLN0ce5TpF jU5ID Olz5PtCpb2 L0RbM iRcKRYZN7f ZWiAz WdY4LKDgrj VsbF0 +PgplbmRvY moKNj AgMCBvYmoK PDwvR FsyNyAwIFI vWFla YUB0DEH0Hx BudWx sXT4+CmVuZ G9iag i3ETBcHP7n ago8P N1JJvP0ANN gUi9Y WVogMzYgMz U2IG5 1uGdtRc4DI W5kb2 JqCjYyIDAg b2JqC oe3R5BgBtI gMCBS G2wIFyVlKh A1MTA gbnVsbF0+P gplbm RvYmoKNjMg MCBvY moKPDwvRFs yOCAw IFIvWFlaID QzIDU 4NyBudWxsX T4+Cm NpKY2frax3 NCAwI U9spxg8BB5 EWzIx IVCoAd9NHZ ogMzY yUvBgIF47f GxdPj 2AEM4fj5Ui CjY1I VBsu4JwAwa 8L0Rb MjEgMCBSL1 hZWiA 0MyAzNDcgb nVsbF 0+PgplbmRv YmoKN jYgMCBvYmo KPDwv RFsyMSAwIF IvWFl wYFN3FSEfS CBudW xsXT4+CmVu ZG9ia om0GuGnNR0 iago8 QB1IKmXjPN AgUi9 YWVogMzYgN TEwIG 85vTxfQg0I ZW5kb 8ErZqI7XIE gb2Jq Vry5R2OwFi cgMCB WD9gPZtBbH iA2OD AgbnVsbF0+ Pgplb mRvYmoKNjk gMCBv YmoKPDwvRF syNyA wIFIvWFlaI DM2ID W5PABjkLyz XT4+C nZeAK7ctbs 3MCAw MC1disw0FH 9EWzI fWQEuLe7ZQ VogMz YkRuNyLM61 bGxdP j2DUO7wr1Z qCjcx VJOvd3KcXr w8L0R bMjEgMCBSL 1hZWi AzNiAzNjMg bnVsb F0+PgplbmR vYmoK NzIgMCBvYm oKPDw vRFsyNyAwI FIvWF muFSW8YYOl NiBud WxsXT4+CmV uZG9i kox7RlEwWB 9iago 2DK3TGmCzT DAgUi 9YWVogMzYg NTI0I A80sErdYy4 KZW5k s9FiSfs7CN Agb2J tAac1K1VwW jcgMC FFC8iIZpX1 MyA2M jEgbnVsbF0 +Pgpl bmRvYmoKNz UgMCB vYmoKPDwvR FsyNy AwIFIvWFla IDM2I NJ5EdYdgKw sXT4+ GwLsQP6rtj o3NiA aXE7hzcn5V C9EWz JxNOVwJr6L WVogM zYgNjEwIG5 1bGxd Nv0IYY6qg1 JqCjc 9BFGws7IlL jw8L0 RbMjEgMCBS L1hZW iAzNiAzMjQ gbnVs bF0+Pgplbm RvYmo KNzggMCBvY moKPD wvRFsyOSAw IFIvW FlaIDQzIDQ yMiBu dWxsXT4+Cm VuZG9 arpw3CTKjP G9iag e0QV7WLiWq IDAgU e4MCIbyWuI gNzA4 QG22bVqrVx 4KZW5 ve4LqDesgY DAgb2 NtIuq2W0Sk MjkgM TKWJ1rRAsP 0MyAz MjIgbnVsbF 0+Pgp lbmRvYmoKO DEgMC BvYmoKPDwv RFsyN yAwIFIvWFl aIDM2 RZX8RnYbkK xsXT4 +AkWgDX0er go4Mi MkLE9hgjf8 PC9EW zIxIDAgUi9 YWVog HBDnANP0QU 51bGx wYl4ADT1na 2JqCj nwQPFtf3Xm Cjw8L 0RbMjcgMCB SL1hZ WiAzNiAzND YgbnV sbF0+Pgplb mRvYm oKODQgMCBv YmoKP DwvRFsyMSA wIFIv DMntEXB8ER MyNCB udWxsXT4+C mVuZG 9pwze7YCSj IG9ia th0RU7YPkJ xIDAg Vj3CYLoqKt YgMzY uNY19oUtdD j4KZW 0hx2IgBxs9 IDAgb 0YwXbr3H5V bMjkg XYWRB4wGRm A0MyA 1MDUgbnVsb F0+Pg plbmRvYmoK ODcgM CBvYmoKPDw vRFsy OSAwIFIvWF laIDM 1HOG8WUOrz WxsXT 4+JoWqNX7r ago4O LJmZF8xuwy 8PC9E ZkK9CTXcVi 9YWVo gMzYgNjgwI G51bG bnHv3WZG0w b2JqC rk9GMZbl5Q qCjw8 K2IzVmywJY BSL1h WFjMlGpT2V DAgbn VsbF0+Pgpl bmRvY moKOTAgMCB vYmoK PDwvRFsyMS AwIFI uXOijASA9Q DUyNC BudWxsXT4+ CmVuZ I3gweg1ZGU wIG9i ywy3PS2GHm I3IDA nHq4CARqaA DMgMz DfDW68kKcb Pj4KZ I6tx5XhJto yIDAg q9OdXud1F0 RbMjE jJWXCX6iOP iA0My V9HhXoifCs bF0+P gplbmRvYmo KOTMg MCBvYmoKPD wvRFs yMSAwIFIvW FlaID N6XWRiQxEg dWxsX T4+CmVuZG9 iago5 WBStYR9ufe o8PC9 EWzIxIDAgU i9YWV ogMzYgMzM2 IG51b YogNb9SPD6 kb2Jq Rjj5EOWjx0 JqCjw 0T6XqDbooP CBSL1 uJMdN9VnLt NTkgb nVsbF0+Pgp lbmRv YmoKOTYgMC BvYmo KPDwvRFsyO SAwIF IvWFlaIDM2 IDY4M CBudWxsXT4 +CmVu BB1rtvd8Gk AwIG9 xguk7QG9DC zIxID VlHz8GGRxb MzYgN TB0JG73nXw dPj4K CX4yv4ZzBg k4IDA ol2MbTwr5T 0RbMj QgOXZQC7cT WiAzN iAzMjQgbnV sbF0+ PgplbmRvYm oKOTk gMCBvYmoKP DwvRF syMSAwIFIv WFlaI CS7ALXvGgC udWxs XT4+CmVuZG 9iago xMDAgMCBvY moKPD wvRFsyNyAw IFIvW AmdLNM3XRO 4MCBu dWxsXT4+Cm VuZG9 iagoxMDEgM CBvYm oKPDwvRFsy OSAwI FIvWFlaIDQ zIDM2 MSBudWxsXT 4+CmV gYI5itnwaY DIgMC BvYmoKPDwv RFsyO SAwIFIvWFl aIDQz SAE8HDMoaE xsXT4 +SvYtFO0rm goxMD MgMCBvYmoK PDwvR FsyNyAwIFI vWFla XYD4AIM8RU BudWx sXT4+CmVuZ G9iag oxMDQgMCBv YmoKP DwvRFsyMSA wIFIv HZuqGFU5WJ I0MiB udWxsXT4+C mVuZG 9iagoxMDUg MCBvY moKPDwvRFs yMSAw IFIvWFlaID M2IDY xMCBudWxsX T4+Cm NyGB6rnymz MDYgM CBvYmoKPDw vRFsy MSAwIFIvWF laIDM 2IDUxMCBud WxsXT 4+IfRdEH5m agoxM DcgMCBvYmo KPDwv RFsyMSAwIF IvWFl tIJC6OAXjJ iBudW xsXT4+CmVu ZG9ia goxMDggMCB vYmoK PDwvRFsyMS AwIFI aCFatGQI2E DU3OS BudWxsXT4+ CmVuZ H7bqyeeHSz gMCBv YmoKPDwvRF syMSA wIFIvWFlaI DM2ID B2FMYbyFfy XT4+C uWdAN3ivyo xMTAg MCBvYmoKPD wvRFs yMSAwIFIvW FlaID A1WFLtCmOe dWxsX T4+CmVuZG9 iagox MTEgMCBvYm oKPDw vRFsyNyAwI FIvWF ibHXP7JQN9 MCBud WxsXT4+CmV uZG9i agoxMTIgMC BvYmo KPDwvRFsyM SAwIF IvWFlaIDM2 IDUxM CBudWxsXT4 +CmVu DR4regchCM MgMCB vYmoKPDwvR FsyNy AwIFIvWFla IDM2I WC1VXQmxTf sXT4+ AoXrXN0qcj oxMTQ gMCBvYmoKP DwvRF syNyAwIFIv WFlaI CG0TEC4MCC udWxs XT4+CmVuZG 9iago 6XeLoTC4ne go8PC 5DBX5rw6ix XzIzY SN7PBaaFIV yZGIt MPI0NL99L1 MzLTE 6HFWfELB1Z zExOC kgNDMgMCBS KF81Y hz8TyetCI8 kN2Q4 LTRlZjEtYm Q4NS1 fFSUxFUT4R GE0ZT KgAFI7HKVg UihfM 2NiYzNhOTE tZTUz VD10K1E3LI I3MWQ iOZT5KdZeG jZhMz JvPOK7ZKDi IFIoX xY1PpOzNlp xLTcx CEoiLCv9KG 1iMjc aPADgSZK7F WM2Yj MyMykgNDYg MCBSK I29MxZrCwU 4YS01 PtA7SLSiY5 QtODU 4Ua71RHNjE DNkND cyMDYpIDQ3 IDAgU xsdLPDkO5O lN2Yt ATNzBX67QN gzLTh lMjItMWMyM GJhMT ExLNA8HBM8 OCAwI CKeHgN7JUP iYWRi CIJ4XoCmAJ I5Zi0 5VQK4NDPbN WQ3N2 M0PFLjRBwn NDkgM JXRYX62CXA 0NzA5 ZG2dIHXuQL Q4ODc rWYJ3Qt0cS GI0Y2 T3SaTwUrZz IDUwI DAgUihfMTA xNDhh RhScLEB5ON 00Yjg yLTlmNzgtZ DdiZT kbIgE8NOVp KSA1M BPhSFYpR5C mYTg0 MzcxLWZiMz ktNGU vXe73XoOoI TNkMD RiNDljOGIz ZCkgN TIgMCBSKF9 kZTcx KzQ6JI9dNW QwLTR mNzctYTIwO S03MT p9XAU7OHQ2 ODQpI DUzIDAgUih fODNj ADOtZ9ZjSU M1My0 7MrAkTWv5M mItYm QzNmYxMDQ2 ZWYzK YW6QDHuOXB oXzFh OUGpFRK2RK k1YjQ gLAZ4Ur85C WQxLT O4NIi6Iee9 YjYyM CkgNTUgMCB SKF8x LOZ7MXd7SI 1jNjQ 2LTQwYTctO DNiNC 54HXX5KOb3 ZjdlM 7VpHEI5UGO gUihf YjFlYWVjND ktOWM 9AC22XkmoY WI3Nj ItODIyNjU3 NmViM TJaSRL7XyD wIFIo D7DqCcRhHg I5LTB kZTYtNGMyY S04OW C9KHA1FGOo Yzk4N hO9XWdzEBu gMCBS DM69QMl3KO FkZC1 fXEKcKTU0Q DUtYT lxYl2mTfM1 ZDhiO GM2UYBqGKE 5IDAg CbihPji3Rv hiMzc cPTyoAQ47S TQ4LT y8JNWbYxOd YTA4Z aJeRJE8GFE 2MCAw IFIoXzkyNj AxOWQ 3EMl2YAcuH DM2MC 4qWIx6XFWz NDIxO DLjQgG0ZOt gNjEg OUFQAU3rQT U2OGM iAC1yIqMqU TRiNz DhCZT1UL19 OTc3Z OJaPUP6VrD pIDYy IDAgUihfMj FlNmE xZWYtMGZjN S00NT IzLWIwNDQt MTMxM pW3RkR7KYi 1KSA2 MyAwIFIoXz AyNTI fNRJ2FRCaF DEtND S6YG11F4T5 LTJkY TBjZmMzMjh iYSkg NjQgMCBSKF 8wMDN vHTzhVS4eM GZlLT RjYTctYWEy ZC05N GEzNWRkZWE 3ZjQp YPJ1LHAnSq hfYjU zZDVkMWEtM TIzYy 50FEV4OAwg MjctZ kJ5MEBaTnT 0YzI0 WPP0MsAdXN IoXzF jF4GuOLEkD WZhYj qoYDb7DA5g Y2Y0L MGmSdN8QCD 4ZDli MikgNjcgMC BSKF9 kODAyNWUyM C02Yj P7MQW1Ppyb ODYyO R07RYEsILN 5MzMx CcOsYCC2EW AgUih fU5LfWskrN zktNz KzHV46P6Zt LTgxN updMFomJ2V xYTgz IMp8VZC1VC AwIFI pZdKzK4WhG DFmLT EwZmQtNDQz Ny04Z Ew5JTWnJ9J jOTM0 ZjliYykgNz AgMCB RHW2jKwg2J TQ0ZC 5cCEA1ABRe ZWEtY XM5Jx24OGa 1NTRm A1SoIVLcRQ cxIDA gUihfNWIxM DkzND AeYNN2WN69 MDdiL CW5EXLxASz 4ZTkz MJu3GJZfLS A3MiA tRYLrM4J5P jU3MT UnQHU8BFcg NGFmY s70EDIjDOY hMjJm Whk3JvizUT kgNzM aBOEZUZ8bL TVlZW PfCq92WqC1 LTQzZ GQtODdmOS1 iYWZl GLY0KMClBB kpIDc 0IDAgUihfN WI2Zj pyTMucD7R9 ZC00M uMfTSC0WIe tZGFl N9M2OswyRn Y5KSA 3NSAwIFIoX 2Q1Zj YyMDIwLTVi ZTktN KEjIy6rYWD kLTgz YWFkZjQxNG ZlZSk gNzYgMCBSK F9mMz RbA8B7Me4d MDQ4L TQzZDYtOGE 1MC03 ZmJhZjUwMz I1MjY gYDf0GLJkL ihfM2 FhYWZlNjct ZThhY h56YDQ1HWR kNDQt TUg2BnLdJx VjMmQ 3ITX9DRRyY FIoTU nEJw8yQLqg Y2hhc gfyWMP9sB2 hcnkp FVn4CFTmCt hfYjF lMzhlNzEtZ mU5Yi 00MmRmLWEz M2EtY jJ4XdIkDnX lZjA5 HJP9TSViYB IoX2E oGDJ1BlJcF WI2Nj jyMQdwQz65 Yzg3L KT1IDXaFbB jZjU5 OCkgODEgMC BSKF9 kLMW3JAs7A C01N2 UwLTRiYTct YjEzY c9iVTJ3C2I lY2Vk MDApIDgyID AgUih hGTK9FUC4M zUtYT JlQV36CRr9 LTlmO TctMTRiODE 2MTdl SsEkZLX4Ek AwIFI oXzdhMjlhN zc2LT d3LsViOFHz MS05O HH5ZDYeAeb 2MWU4 NDAyMykgOD QgMCB WXS8gXcOsD 2MxNS 8xV0RuXFMi NGEtY hQ0Vc5eHfC jNTEz YzJlZGEpID g1IDA gUihfYjkxN DY4Yj ZvEMEcWm21 Y2I4L Up9OQFcRHC jNDYy MGMxYjRkKS A4NiA iJTQjUrr0R DQ2NT kyLTMyNzAt NDNhY l7yQfp5VGK 5OTdm RRRuO8C0VJ kgODc iRYYULX87Q WQxND E6QN45K5Te LTRjN PZdYsG3Ub0 mYTlj NRG8QPJwJY MpIDg 4IDAgUihfY WExNm YzNjItMDY2 Yy00Z Oh7GOmoV6J tYjYx YjcyNzhkOT VmKSA 4OSAwIFIoX zAyOW RjOWQzLTUx ODItN HUgHa6cQMw zLTE2 AYO2KPS0CY M4OSk gOTAgMCBSK F84MD G3NsOuAb4e Y2I4L TR0DVqkOCI 0ZC1k MAHuHUA2GM Q3MTU pIDkxIDAgU ihfYj WjRlN9RhMf OTFhY i06IUl4DJZ yMmMt TGB7DFRqFA k2N2V rFZP2KyOpQ FIoXz MoFAg0KdT8 LWU4N GwwZRR7ND1 4ODE2 RZd9BdHcJ7 FjNTZ iMikgOTMgM CBSKF 25VnHkWar9 ZS0wM jViLTQxYTU tODFk Xh3vMdDeDE QzMGV mEWWuBXq4I DAgUi ggRKZeM6M6 NWEtO UVlCv35FxW 4LWFi U5DdRGCySr BlOTQ mHVLtUSW0G SAwIF IoXzkxMmMw ZWY2L TQwNzctNGF mNC05 YTH0ICUhMp EyODB mNDcxNykgO TYgMC VUOE3cVHX0 Y2Q2M I9gFCE5FTC 0NjUt AGUaPF8xLY ZjYWV mZjFmMTMpI Dk3ID AgUihfYWU4 MzNhN tznSzO9IQ6 0YTM5 LWIwNWItZT YxOTJ gAGdqOMR3X SA5OC AwIFIoXzdk M2RkM 7N1VEV2Put tNDQ3 LU05XXBlDB EzYTV zLQh3FpqvW ikgOT ssIDKYCF1q MTA0N tMjWC4yVXq kLTQy SmOdCVE4PZ 00NTk lUMSaEgb0W DApID EwMCAwIFIo Xzk3O GZhNDhmLTI zNzkt KLX8Na06Nh BmLWJ lBWNpRIX8L GJjZi kgMTAxIDAg UihfM WYyODQyNjg tNmQ1 Wh70NUS3TA JlMDI qQTl0DIRnN DMwZj V6MYPpYVDr MCBSK N8hNdH9SLY mMS04 TZT4JQE4R4 UtOTM eTV30SRWhA TQyMT f3FxLfHMFr MyAwI DYtP6P5Nmw 5ZTk5 LWFmMGMtND M2Mi0 2AjPzUTX7M zhkOD zyEyX0TJfq MTA0I DAgUihfMzN jYmYz QVTfKwF7Je 00YTM 2LThiYTctY zNlZD JlZDdhMjFh KSAxM DUgMCBSKF8 3ZTg0 WUIxTW0oLF U3LTQ 5OGEtODQxZ i1kMD v9UsL2IlRm YjApI DEwNiAwIFI oXzFk IlJlMLL0EY cxMTM cYVH9TH0uX DEwLT NgA4LhHdK5 NTAyY mceESS2OHN gUihf OTMzZjRjNm QtODY wWl41HAifT Tk2MT AtZDQzZTZm ZGJmN jNjKSAxMDg gMCBS JQ6oQMJ2Te ExZi0 qWfeyGJJ2T GYtOD N8WN89QhRb NzFkN JJyE5XnKBA wOSAw RICiKoK9Uy E2ZjB mLTUyNmYtN DllYi 76FDBvZSu2 YjYxM FAaWAJ4Twg gMTEw IDAgUihfMz kxOWJ oV5HoXBU2F C00ND PbKNJ8QSXn NTgyM VVcXHC6LAV hKSAx MTEgMCBSKF 81YzQ 1AkSgIJ6zV mNmLT W1UBLzCWNp Yi0xZ DQwZmRkMjV hM2Yp IDExMiAwIF IoXzZ tSMT8XTPmR TFhMz BcBNNtCe9e MDdjL HSuHFQ3OtO iZmI5 ZCkgMTEzID AgUih fMTIzMzVlM jgtNT snMc15FcIt LWE2Y TktZGJlNTh kYTll MjIzKSAxMT QgMCB SXT4+CmVuZ G9iag dxVrGpOW9h ago8P D3VUCE4UQ8 LTUct DEDwx5QyEH JnZSB TjA5hZNX8I S9UaX RsZTxmZWZm MDA0N DAwNjkwMDc zMDA2 MzAwNjgwMD YxMDA 3MjAwNjcwM DY1MD AyMDAwNTMw MDc1M LY1UFUcUpY wMDYx JEX1AgLiQd k+L1B hcmVudCAxM iAwIF I+PgplbmRv YmoKM TM5CGXgd5G qCjw8 Z46iHSZygU UoRDo yMDIwMDUxN zE2ND gwBM5hCVxm MCcpL 8ClIRW6bL3 uRGF0 ZShEOjIwMj AwNTE 2GWL1UzIdD y00Jz AwJykvUHJv ZHVjZ XIoSWJleCB QREYg L4XfWWNfvl A0Ljk mGO2dKW20R DM4IF tKQVZBXVAv Ujsgb X8rgWQmJZV gdXNp bmcgaVRleH QgMi4 xLjcgYnkgM VQzWF QhIw5XDJ6m b2JqC nhyZWYKMCA xMTYK MDAwMDAwMD AwMCA 2NTUzNSBmI AowMD AwMDAwMDE1 IDAwM IBqUD0sTaA wMDAw MDAxMDMgMD AwMDA gbiAKMDAwM DAwMD E4LAShBPOj MCBuI AowMDAwMDA wMzE1 IDAwMDAwIG 4gCjA wMDAwMDAzO TEgMD AwMDAgbiAK MDAwM DAwMDUyNiA wMDAw MCBuIAowMD AwMDA wNjAyIDAwM DAwIG 4gCjAwMDAw MDA3M zggMDAwMDA gbiAK MDAwMDAwMD gxNCA wMDAwMCBuI AowMD AwMDAwOTUw IDAwM YViIV7tMdQ wMDAw MzUyMzMgMD AwMDA gbiAKMDAwM DAwMT EzMyAwMDAw MCBuI AowMDAwMDA xMDY4 IDAwMDAwIG 4gCjA wMDAwMzUyM TIgMD AwMDAgbiAK MDAwM DAwODcxOSA wMDAw MCBuIAowMD AwMDQ hNHO1EOZeD DAwIG 4gCjAwMDAw MDExO DcgMDAwMDA gbiAK MDAwMDAwMT IyMiA wMDAwMCBuI AowMD AwMDAzODkx IDAwM QEcXF1aNoV wMDAw MDQwNzQgMD AwMDA gbiAKMDAwM DAwOD I1GoSxBJLf MCBuI AowMDAwMDA 5MDk2 IDAwMDAwIG 4gCjA kKXFiJYC3M jkgMD AwMDAgbiAK MDAwM QCwLul9YaL wMDAw MCBuIAowMD AwMDE yNjYyIDAwM DAwIG 4gCjAwMDAw MDg4M DcgMDAwMDA gbiAK MDAwMDAxNz Q2MyA wMDAwMCBuI AowMD BtCVZ4BoP9 IDAwM HBaZL0iZwB wMDAw RxD6DYByNR AwMDA gbiAKMDAwM DAxMj r9ZdOaAXLa MCBuI AowMDAwMDE zMTU1 IDAwMDAwIG 4gCjA wMDAwMTgwO DkgMD AwMDAgbiAK MDAwM DAxNzgwMCA wMDAw MCBuIAowMD AwMDI wYLL2KVGyT DAwIG 4gCjAwMDAw MjEzM jggMDAwMDA gbiAK MDAwMDAyNj I2MiA wMDAwMCBuI AowMD IpEBP6MEhl IDAwM HXmAJ5kWtS wMDAw MjgxOTUgMD AwMDA gbiAKMDAwM DAyOD P5ZRFsHNMq MCBuI AowMDAwMDM zMzEy IDAwMDAwIG 4gCjA wMDAwMzMwM jMgMD AwMDAgbiAK MDAwM VAxWLL7VyM wMDAw MCBuIAowMD AwMDM 5SxJ9MGQlI DAwIG 4gCjAwMDAw MzUzM TQgMDAwMDA gbiAK MDAwMDAzNT M2MSA wMDAwMCBuI AowMD FnNST5EXW6 IDAwM GZyYG5nGvZ wMDAw YwG5DQUmPE AwMDA gbiAKMDAwM DAzNT UwMiAwMDAw MCBuI AowMDAwMDM 1NTQ5 IDAwMDAwIG 4gCjA cRXJfRbD4B TYgMD AwMDAgbiAK MDAwM JOkGOH0ImN wMDAw MCBuIAowMD AwMDM 1NjkwIDAwM DAwIG 4gCjAwMDAw MzU3M zcgMDAwMDA gbiAK MDAwMDAzNT c4NCA wMDAwMCBuI AowMD WyYCQ0HJVm IDAwM SQzMP8wAfM wMDAw WqH5YkudAO AwMDA gbiAKMDAwM DAzNT kyNSAwMDAw MCBuI AowMDAwMDM 1OTcy IDAwMDAwIG 4gCjA wMDAwMzYwM TkgMD AwMDAgbiAK MDAwM TVfIaF5JdB wMDAw MCBuIAowMD AwMDM 2MTEzIDAwM DAwIG 4gCjAwMDAw MzYxN jAgMDAwMDA gbiAK MDAwMDAzNj IwNyA wMDAwMCBuI AowMD UsFMR5ElA1 IDAwM HQuFV3nFqQ wMDAw MzYzMDEgMD AwMDA gbiAKMDAwM DAzNj J4YXBiSUSs MCBuI AowMDAwMDM 2Mzk1 IDAwMDAwIG 4gCjA bZOCuVcE1Y DIgMD AwMDAgbiAK MDAwM UKdYwV5BGX wMDAw MCBuIAowMD AwMDM 6OER9DDGyV DAwIG 4gCjAwMDAw MzY1O DMgMDAwMDA gbiAK MDAwMDAzNj YzMCA wMDAwMCBuI AowMD VcKML5Fgh1 IDAwM YXxBL7xHmJ wMDAw WiG4McQwCW AwMDA gbiAKMDAwM DAzNj z0SOUsHAXo MCBuI AowMDAwMDM 2ODE4 IDAwMDAwIG 4gCjA sLQAqNgI7H jUgMD AwMDAgbiAK MDAwM DAzNjkxMiA wMDAw MCBuIAowMD AwMDM 2JCY7BNAaM DAwIG 4gCjAwMDAw MzcwM DYgMDAwMDA gbiAK MDAwMDAzNz A1MyA wMDAwMCBuI AowMD RoQQK4QBLj IDAwM JEqPF2lOtR wMDAw MzcxNDcgMD AwMDA gbiAKMDAwM DAzNz K3RFPrJGMh MCBuI AowMDAwMDM 3MjQx IDAwMDAwIG 4gCjA wMDAwMzcyO DggMD AwMDAgbiAK MDAwM DAzNzMzNSA wMDAw MCBuIAowMD AwMDM 3MzgyIDAwM DAwIG 4gCjAwMDAw Mzc0M jkgMDAwMDA gbiAK MDAwMDAzNz Q3NiA wMDAwMCBuI AowMD YnMXE4UZGk IDAwM CDfXZ8eFlT wMDAw Aei4IlKoJY AwMDA gbiAKMDAwM DAzNz YxNyAwMDAw MCBuI AowMDAwMDM 3NjY0 IDAwMDAwIG 4gCjA mUPKwFts8N TEgMD AwMDAgbiAK MDAwM XVcNgv0OBJ wMDAw MCBuIAowMD AwMDM 6IMP9MCZdP DAwIG 4gCjAwMDAw Mzc4N TIgMDAwMDA gbiAK MDAwMDAzNz g5OSA wMDAwMCBuI AowMD PfFDQ3OZI0 IDAwM ZQbOY8gKdY wMDAw Wvp5JWOsCP AwMDA gbiAKMDAwM DAzOD N9PcZhAYTx MCBuI AowMDAwMDM 4MDkw IDAwMDAwIG 4gCjA wMDAwMzgxM zggMD AwMDAgbiAK MDAwM EEsEUU9AxN wMDAw MCBuIAowMD AwMDM 2HgR7XUSeT DAwIG 4gCjAwMDAw MzgyO DIgMDAwMDA gbiAK MDAwMDAzOD MzMCA wMDAwMCBuI AowMD CfVSH6Vmv6 IDAwM JTmCY5aWnX wMDAw Xfg6LxHqVE AwMDA gbiAKMDAwM DAzOD M8LRRzCFOj MCBuI AowMDAwMDM 4NTIy IDAwMDAwIG 4gCjA tXWMwAsm8F zAgMD AwMDAgbiAK MDAwM DAzODYxOCA wMDAw MCBuIAowMD AwMDQ yMTUzIDAwM DAwIG 4gCnRyYWls ZXIKP QlwGI4wekK xMTUg NUERQ6gZHI s8MzE bXuk0IEM1J Tg3NT FhZWQyOGEw ZTEzN DVmYTQwZTU +PGZh BMCoDCS4QV c3MDU 0MzJkNzVhN jc4Yj BlYzFkOTY1 Pl0vU h8goTMnFIX wIFIv L5g5NHXlVI Y+Pgp zdGFydHhyZ WYKND IzMzQKJSVF T0YK ID Date Data Source [id number] 02/19/2020 07:22:00 AM EDT [place] [facility] Name Value Range Interpretation Description Data Sup porting Code Source(s) Document(s ) Glucose Lvl 98 mg/dL 65-99 NO [facility] BUN <1.0 6.0-20.0 LO [place] mg/dL [facility] Creatinine 0.48 0.40-1.0 [place] mg/dL 0 [facility] BUN/Creat -999.0 7.0-29.0 [place] Ratio ratio [facility] Sodium Lvl 140 136-145 NO [place] mmol/L [facility] Potassium Lvl 3.2 3.5-5.1 [place] mmol/L [facility] Chloride 108 98-107 [place] mmol/L [facility] CO2 22 23-29 [place] mmol/L [facility] AGAP 10 5-15 NO [facility] Calcium Lvl 8.6 8.6-10.0 NO [place] mg/dL [facility] Total Protein 5.8 6.0-8.3 [place] gm/dL [facility] Albumin Lvl 2.8 3.5-5.0 [place] gm/dL [facility] Glob 3.0 2.0-4.5 [place] gm/dL [facility] A/G Ratio 0.9 1.0-2.2 [place] ratio [facility] Bili Total 0.5 0.3-1.2 [place] mg/dL [facility] Alk Phos 98 IU/L 38-126 [facility] AST 20 IU/L 15-41 NO [facility] ALT 15 IU/L 7-40 NO [facility] ID Date Data Source [id number] 02/19/2020 07:22:00 AM EDT [facility] Added by Discern Rule GLB_ADD_GFR_CMP Name Value Range Interpretation Code Description Data Mariana rce(s) Supporting Document(s ) eGFR-AA >90 >=60 [facility] mL/min/[address] The MDRD 4-Variable IDMS traceable Equat [...] 60-89 Mild decrease*G3a 45-59 Mild to moderate [id number] 30-44 Moderate to severe decreaseG4 15-29 Severe decreaseG5 14 or less Kidney failure eGFR-SUDHIR >90 mL/min/1.73m2 >=60 NO [facility] The MDRD 4-Variable IDMS traceable Equat [...] 60-89 Mild decrease*G3a 45-59 Mild to moderate [id number] 30-44 Moderate to severe decreaseG4 15-29 Severe decreaseG5 14 or less Kidney failure ID Date Data Source [id number] 02/19/2020 06:37:00 AM EDT [facility] Name Value Range Interpretation Description Data Sup porting Code Source(s) Document(s ) Neut Auto 49.6 % 50.0-80.0 LO [facility] Lymph Auto 32.5 % 14.0-44.0 NO [facility] [place] Auto 12.8 % 0.0-12.0 [place] [facility] Eos Auto 4.4 % 0.0-7.0 NO [facility] Baso Auto 0.7 % 0.0-3.0 NO [facility] Neut 2.9 2.0-8.4 NO [place] Absolute x10(3)/[facility] Lymph 1.9 0.6-4.8 NO [place] Absolute x10(3)/[facility] [place] 0.7 0.0-1.1 NO [place] Absolute x10(3)/[facility] Eos Absolute 0.3 0.0-0.5 NO [place] x10(3)/[facility] Baso 0.0 0.0-0.3 NO [place] Absolute x10(3)/[facility] ID Date Data Source [id number] 02/19/2020 06:37:00 AM EDT [facility] Name Value Range Interpretation Description Data Sup porting Code Source(s) Document(s ) WBC 5.8 4.0-10.5 NO [place] x10(3)/[facility] RBC 4.60 3.80-5.20 NO [place] x10(6)/[facility] Hgb 10.8 11.4-15.1 [place] gm/dL [facility] Hct 34.8 % 36.0-46.0 [facility] MCV 76 fL 80-98 [facility] MCH 23.4 pg 26.0-34.0 [facility] MCHC 31.0 32.0-36.0 [place] gm/dL [facility] RDW 19.0 % 11.0-15.0 [facility] Platelet 276 150-400 NO [place] x10(3)/[facility] MPV 8.0 fL 8.5-13.0 [facility] ID Date Data Source [id number] 02/18/2020 04:59:00 PM EDT [facility] Patient Name: JHONATAN OROZCO ANEMRN: [id number] General DiagnosticACCESSION EXAM DATE/TIME PROCEDURE ORDERING PROVIDER [id number] 02/18/2020 16:42 EDT XR Chest Portable Jonathan [...] Supporting Document(s ) ID Date Data Source [id number] 02/18/2020 07:12:00 AM EDT [facility] Added by Discern Rule GLB_ADD_GFR_CMP Name Value Range Interpretation Code Description Data Mariana rce(s) Supporting Document(s ) eGFR-AA >90 >=60 [facility] mL/min/[address] The MDRD 4-Variable IDMS traceable Equat [...] 60-89 Mild decrease*G3a 45-59 Mild to moderate [id number] 30-44 Moderate to severe decreaseG4 15-29 Severe decreaseG5 14 or less Kidney failure eGFR-SUDHIR >90 mL/min/1.73m2 >=60 NO [facility] The MDRD 4-Variable IDMS traceable Equat [...] 60-89 Mild decrease*G3a 45-59 Mild to moderate [id number] 30-44 Moderate to severe decreaseG4 15-29 Severe decreaseG5 14 or less Kidney failure ID Date Data Source [id number] 02/18/2020 07:12:00 AM EDT [facility] Name Value Range Interpretation Description Data Sup porting Code Source(s) Document(s ) Glucose Lvl 109 65-99 [place] mg/dL [facility] BUN <1.0 6.0-20.0 [place] mg/dL [facility] Creatinine 0.59 0.40-1.0 [place] mg/dL 0 [facility] BUN/Creat 0.2 7.0-29.0 [place] Ratio ratio [facility] Sodium Lvl 142 136-145 NO [place] mmol/L [facility] Potassium Lvl 3.6 3.5-5.1 NO [place] mmol/L [facility] Chloride 109 98-107 [place] mmol/L [facility] CO2 25 23-29 [place] mmol/L [facility] AGAP 8 5-15 NO [place] [facility] Calcium Lvl 9.0 8.6-10.0 NO [place] mg/dL [facility] Total Protein 6.1 6.0-8.3 NO [place] gm/dL [facility] Albumin Lvl 3.1 3.5-5.0 [place] gm/dL [facility] Glob 3.0 2.0-4.5 NO [place] gm/dL [facility] A/G Ratio 1.0 1.0-2.2 NO [place] ratio [facility] Bili Total 0.7 0.3-1.2 [place] mg/dL [facility] Alk Phos 104 IU/L 38-126 NO [place] [facility] AST 22 IU/L 15-41 NO [facility] ALT 16 IU/L 7-40 NO [facility] ID Date Data Source [id number] 02/18/2020 07:09:00 AM EDT [facility] Name Value Range Interpretation Description Data Sup porting Code Source(s) Document(s ) Magnesium 1.7 mg/dL 1.6-2.6 NO [facility] ID Date Data Source [id number] 02/18/2020 06:19:00 AM EDT [facility] Name Value Range Interpretation Description Data Sup porting Code Source(s) Document(s ) WBC 5.1 4.0-10.5 NO [place] x10(3)/[facility] RBC 4.77 3.80-5.20 NO [place] x10(6)/[facility] Hgb 11.3 11.4-15.1 [place] gm/dL [facility] Hct 36.3 % 36.0-46.0 [facility] MCV 76 fL 80-98 [facility] MCH 23.7 pg 26.0-34.0 [facility] MCHC 31.1 32.0-36.0 [place] gm/dL [facility] RDW 19.1 % 11.0-15.0 [facility] Platelet 313 150-400 [place] x10(3)/[facility] MPV 7.9 fL 8.5-13.0 [facility] ID Date Data Source [id number] 02/18/2020 06:19:00 AM EDT [facility] Name Value Range Interpretation Description Data Sup porting Code Source(s) Document(s ) Neut Auto 57.0 % 50.0-80.0 NO [facility] Lymph Auto 27.5 % 14.0-44.0 NO [facility] [place] Auto 10.6 % 0.0-12.0 NO [facility] Eos Auto 4.2 % 0.0-7.0 NO [facility] Baso Auto 0.7 % 0.0-3.0 NO [facility] Neut 2.9 2.0-8.4 NO [place] Absolute x10(3)/[facility] Lymph 1.4 0.6-4.8 NO [place] Absolute x10(3)/[facility] [place] 0.5 0.0-1.1 NO [place] Absolute x10(3)/[facility] Eos Absolute 0.2 0.0-0.5 NO [place] x10(3)/[facility] Baso 0.0 0.0-0.3 NO [place] Absolute x10(3)/[facility] ID Date Data Source [id number] 02/17/2020 06:24:00 AM EDT [facility] Added by Discern Rule GLB_ADD_GFR_BMP Name Value Range Interpretation Code Description Data Mariana rce(s) Supporting Document(s ) eGFR-AA >90 >=60 NO [facility] [place] mL/min/1.[address] The MDRD 4-Variable IDMS traceable Equat ion for non- individuals is used to calculate the estimated glomerul ar filtration rate (GFR). To estimate the GFR for Americans, [facility] by 1.16. The MDRD [...] 60-89 Mild decrease*G3a 45-59 Mild to moderate [id number] 30-44 Moderate to severe decreaseG4 15-29 Severe decreaseG5 14 or less Kidney failure eGFR-SUDHIR >90 mL/min/1.73m2 >=60 NO [place] [facility] The MDRD 4-Variable IDMS traceable Equat ion for non- individuals is used to calculate the estimated glomerul ar filtration rate (GFR). To estimate the GFR for Americans, multiply [facility] result by 1.16. The MDRD [...] 60-89 Mild decrease*G3a 45-59 Mild to moderate endjnmlrU0j 30-44 Moderate to severe decreaseG4 15-29 Severe decreaseG5 14 or less Kidney failure ID Date Data Source [id number] 02/17/2020 06:24:00 AM EDT [facility] Name Value Range Interpretation Description Data Sup porting Code Source(s) Document(s ) Glucose Lvl 112 65-99 [place] mg/dL [facility] BUN <1.0 6.0-20.0 [place] mg/dL [facility] Creatinine 0.56 0.40-1.0 [place] mg/dL 0 [facility] BUN/Creat 0.4 7.0-29.0 [place] Ratio ratio [facility] Sodium Lvl 140 136-145 [place] mmol/L [facility] Potassium Lvl 3.4 3.5-5.1 [place] mmol/L [facility] Chloride 110 98-107 [place] mmol/L [facility] CO2 24 23-29 [place] mmol/L [facility] AGAP 7 5-15 NO [facility] Calcium Lvl 8.8 8.6-10.0 NO [place] mg/dL [facility] ID Date Data Source [id number] 02/17/2020 06:17:00 AM EDT [facility] Name Value Range Interpretation Description Data Sup porting Code Source(s) Document(s ) Neut Auto 56.5 % 50.0-80.0 NO [facility] Lymph Auto 28.7 % 14.0-44.0 NO [facility] [place] Auto 10.5 % 0.0-12.0 [facility] [facility] Eos Auto 3.4 % 0.0-7.0 NO [facility] Baso Auto 0.9 % 0.0-3.0 NO [facility] Neut 3.1 2.0-8.4 NO [place] [facility] x10(3)/[facility] Lymph 1.6 0.6-4.8 NO [place] Absolute x10(3)/[facility] Preble 0.6 0.0-1.1 NO [place] Absolute x10(3)/[facility] Eos Absolute 0.2 0.0-0.5 NO [place] x10(3)/[facility] Baso 0.0 0.0-0.3 NO [place] Absolute x10(3)/[facility] ID Date Data Source [id number] 02/17/2020 06:17:00 AM EDT [facility] Name Value Range Interpretation Description Data Sup porting Code Source(s) Document(s ) WBC 5.5 4.0-10.5 NO [place] x10(3)/[facility] RBC 4.51 3.80-5.20 NO [place] x10(6)/[facility] Hgb 10.7 11.4-15.1 LO [place] gm/dL [facility] Hct 34.1 % 36.0-46.0 [facility] MCV 76 fL 80-98 [facility] MCH 23.6 pg 26.0-34.0 [facility] MCHC 31.3 32.0-36.0 [facility] [place] gm/dL [facility] RDW 18.7 % 11.0-15.0 [facility] Platelet 299 150-400 NO [place] x10(3)/[facility] MPV 7.7 fL 8.5-13.0 [facility] ID Date Data Source [id number] 02/16/2020 05:40:00 PM EDT [facility] Patient Name: JHONATAN OROZCO ANEMRN: [id number] General DiagnosticACCESSION EXAM DATE/TIME PROCEDURE ORDERING PROVIDER [id number] 02/16/2020 16:43 EDT XR Abdomen 1 View 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 Final Dictated: Yonatan LAFLEUR, Albertina 0 02/16/20 17:38Signed: Albertina Tam MD 02/16/20 17:40Transcribed by: SRINIVASA Name Value Range Interpretation Code Description Data Mariana rce(s) Supporting Document(s ) ID Date Data Source [id number] 02/16/2020 10:43:00 AM EDT [facility] Patient Name: JHONATAN OROZCO ANEMRN: [id number] General DiagnosticACCESSION EXAM DATE/TIME PROCEDURE ORDERING PROVIDER [id number] 02/16/2020 09:15 EDT XR ESOPHOGUS Zhou LAFLEUR, [place] [facility] (Verified) A.Reason Fo r Exam(XR ESOPHOGUS) DysphagiaReportPROCEDURE: [...] Supporting Document(s ) ID Date Data Source [id number] 02/16/2020 06:54:00 AM EDT [facility] Name Value Range Interpretation Description Data Sup porting Code Source(s) Document(s ) Magnesium 1.8 mg/dL 1.6-2.6 NO [facility] ID Date Data Source [id number] 02/16/2020 06:54:00 AM EDT [facility] Name Value Range Interpretation Description Data Sup porting Code Source(s) Document(s ) Glucose Lvl 90 mg/dL 65-99 NO [facility] BUN 1.9 6.0-20.0 [facility] [place] mg/dL [facility] Creatinine 0.62 0.40-1.0 NO [facility] mg/dL 0 [facility] BUN/Creat 3.1 7.0-29.0 [facility] Ratio ratio [facility] Sodium Lvl 140 136-145 NO [facility] mmol/L [facility] Potassium Lvl 3.9 3.5-5.1 NO [place] mmol/L [facility] Chloride 107 98-107 NO [facility] mmol/L [facility] CO2 20 23-29 [facility] mmol/L [facility] AGAP 13 5-15 NO [facility] Calcium Lvl 9.1 8.6-10.0 NO [place] mg/dL [facility] Total Protein 6.5 6.0-8.3 NO [place] gm/dL [facility] Albumin Lvl 3.2 3.5-5.0 LO [place] gm/dL [facility] Glob 3.3 2.0-4.5 NO [place] gm/dL [facility] A/G Ratio 1.0 1.0-2.2 NO [place] ratio [facility] Bili Total 1.0 0.3-1.2 NO [place] mg/dL [facility] Alk Phos 106 IU/L 38-126 NO [facility] AST 16 IU/L 15-41 [facility] ALT 12 IU/L 7-40 NO [facility] ID Date Data Source [id number] 02/16/2020 06:48:00 AM EDT [facility] Added by Discern Rule GLB_ADD_GFR_CMP Name Value Range Interpretation Code Description Data Mariana rce(s) Supporting Document(s ) eGFR-AA >90 >=60 [facility] mL/min/1.[address] The MDRD 4-Variable IDMS traceable Equat [...] 60-89 Mild decrease*G3a 45-59 Mild to moderate mwxfbnjeE8d 30-44 Moderate to severe decreaseG4 15-29 Severe decreaseG5 14 or less Kidney failure eGFR-SUDHIR >90 mL/min/1.73m2 >=60 [facility] The MDRD 4-Variable IDMS traceable [...] 60-89 Mild decrease*G3a 45-59 Mild to moderate bmqzlzziP4m 30-44 Moderate to severe decreaseG4 15-29 Severe decreaseG5 14 or less Kidney failure ID Date Data Source [id number] 02/16/2020 06:45:00 AM EDT [facility] Name Value Range Interpretation Description Data Sup porting Code Source(s) Document(s ) Neut Auto 68.6 % 50.0-80.0 NO [facility] Lymph Auto 20.5 % 14.0-44.0 NO [facility] [place] Auto 8.6 % 0.0-12.0 NO [facility] Eos Auto 1.6 % 0.0-7.0 NO [facility] Baso Auto 0.7 % 0.0-3.0 NO [facility] Neut 4.7 2.0-8.4 NO [place] Absolute x10(3)/[facility] Lymph 1.4 0.6-4.8 NO [place] Absolute x10(3)/[facility] Preble 0.6 0.0-1.1 NO [place] Absolute x10(3)/[facility] Eos Absolute 0.1 0.0-0.5 NO [place] x10(3)/[facility] Baso 0.0 0.0-0.3 NO [place] Absolute x10(3)/[facility] ID Date Data Source [id number] 02/16/2020 06:45:00 AM EDT [facility] Name Value Range Interpretation Description Data Sup porting Code Source(s) Document(s ) WBC 6.8 4.0-10.5 NO [place] x10(3)/[facility] RBC 4.66 3.80-5.20 NO [place] x10(6)/[facility] Hgb 11.0 11.4-15.1 [place] gm/dL [facility] Hct 35.4 % 36.0-46.0 [facility] MCV 76 fL 80-98 [facility] MCH 23.7 pg 26.0-34.0 [facility] MCHC 31.2 32.0-36.0 [place] gm/dL [facility] RDW 19.1 % 11.0-15.0 [facility] Platelet 309 150-400 NO [place] x10(3)/[facility] MPV 7.9 fL 8.5-13.0 [facility] ID Date Data Source {[id number] 02/15/2020 04:37:00 PM EDT Formerly [facility] [id number]} [facility] Patient: MARIELA ROME Age: [...] and bill insurance Michelle Mendes [address] [place] [address] [id number] PAMARIELA [id number], unspecified0.000.00 Name Value Range Interpretation Code Description Data Mariana rce(s) Supporting Document(s ) ID Date Data Source [id number] 02/17/2020 04:29:00 PM EDT [facility] J[address] [place], [place] [address]Phone: Fax: [phone] Borden M.D., Director of PathologySURGICAL PATHOLOGY REPORTPatien t: MARIELA OROZCO LAccession #: [id number]: 02/15/2020 14:54Rec eived: 02/15/2020 15:45Reported: 02/16/2020 11:02Clinical [...] for dysplasia. Case CommentCa se interpreted at [facility], [address] [facility] [address]Kwzawlxynmuzne Signed By: DELIA Singhate/Time Reported: 02/16/2020 11:02:13Gross DescriptionA. Labeled with the [...] in toto in one casset te.ax/02/15/2020Cherelle ADAMS, ([facility]) Name Value Range Interpretation Code Description Data Mariana rce(s) Supporting Document(s ) ID Date Data Source [id number] 02/15/2020 03:47:00 PM EDT [id number] Patient: MARIELA ROME Age: 69 years [...] and bill insurance ---- Michelle Albrecht [address] [place] [address] 1 [id number] [facility] [id number] Dysphagia, unspecified0.000.00 Name Value Range Interpretation Code Description Data Mariana rce(s) Supporting Document(s ) ID Date Data Source [id number] 02/15/2020 12:15:00 PM EDT Luke Escalera [facility] Name Value Range Interpretation Code Description Data Supporting Source(s) Document(s ) Physician Luke FUSPKc8vNf QKJeL [facility], [facility] - hd0HCKINjC G9iag Arturo [id number] [facility] 2W8eBHrA8T 5cGUv Medical Vn5srZ0DAU NlRm9 [place] zcW5TFCx7H XRpY2 VtSV0zw7Me bmcvV 3loRO9lxLM uY29k gU4nZd8FZC 5kb2J qCjIgMCBvY moKPD wvRmlsdGVy L0ZsY GSgUQLfa7U lL0xl apu2fABsYM 4+c3R yZWFtCnicK +QCAA RfNNfGNC5w c3RyZ WFtCmVuZG9 iagoz CZZfk4VoRq w8L0Z voCKefv5Xr GF0ZU MmS36nVB1H ZW5nd GggNjk+PnN 0cmVh oJw3wFLG0T rk0o/ INFAwNFAIS eNyCu EyVDAAQkMF I1MLP XNTBQtDPQs jhZBc Oa5OtBBNyO h+Michelle uQrjFs3kLD yAXAL JZCkFZPC4v c3RyZ WFtCmVuZG9 iago0 PJOae5KdGo w8L0Z baZLesu5Qa GF0ZU FuM65jMG5N ZW5nd GggMTA+PnN 0cmVh kRc4cBhbIq AA7gB 8AbOnVVF1w mVhbQ plbmRvYmoK NSAwI A9ghyr7RO4 GaWx0 ZXIvRmxhdG VEZWN vZGUvTGVuZ 3RoID tsZg0pcJHe YW0Ke NpXJDCg9MN PyDRU MDRQCEnjcg rhMlQ wAEJDBSNTC z1zUw MNJp5WN6BC XC6Ng UJ9QAEdtxi 0BWPN dNsn1pNvPX 4AtI0 F0mtilyHwj HJlYW 5AOV1gf5Hc CjYgM CBvYmoKPDw vRmls hGGoD0ZwMZ RlRGV ra0DfF1ufn md0aC AxMD4+c3Ry ZWFtC Sakina+QCAAD uAHwK MJ1pa4EpJE FtCmV aUB3koxc9A DAgb2 UlBmn6K6Ys bHRlc j7YgDL7NPI lY29k KB1MSZ2zjY ggNzA +DxT6hhNyl Qp4nF EY6Ens5t/I NFIwN FAISeNyCuE yVDAA GpTQL6VHRC NTBQt DPQsjhZBcL o2AxP RUBWOF/DQF Y82QL Z5EKI6OOqP 01A3U OgUeMYJ6ja VhbQp lbmRvYmoKO CAwIG 8seug2RC5G YWdlT Z9xZH7Ns0T Ob25l E63ohFPnBU kgMCB SD3P2eLKsD 2F0YW cmGk0QwSXn aW5lc yAxMCAwIFI vUGFn ZXMgMTEgMC BSL1Z pZXdlclByZ WZlcm EcB0NlJFNh IDAgU j4+CmVuZG9 iagox EBPeLB1wxa o8PC9 LaWRzWzEzI DAgUl 0uIJmnLI1T YWdlc o9Sl9NruMH zL0lU EAYrYg5mAk cpPj4 JCV0ph6RiD jEwID Myx2DuPpu0 L0Nvd G89UQIsZca yc3Qg MTQgMCBSL0 xhc3Q gMTQgMCBSP j4KZW 4dy2IjScP3 IDAgb 2JqClsvSUN DQmFz ZWQgMTYgMC BSXQp lbmRvYmoKM TYgMC BvYmoKPDwv Rmlsd LVgK9CnCJR lRGVj h9MlJ3sryg d0aCA pBAp5G21mW z4+c3 RyZWFtCnic nZZ3V FPZFofPvTe 9UJIQ zwXSk3gWEt gNvUi RLioxCRBKw JAAIj ZEVHBEUZGm CDIo4 WLgW2YqYle FAVGx 6wQZRNRxcB Qblkl krRnfvHnvz ZvfH/ d+a5+9z91n 733Wu gCQ/IMFwkx YCYAM lQtJ7htZvV 2LZ2A HAQzwAANsA OBws7 NCFvhGApkC fNiMb JkT+Be9ug4 g+fsq 0z+MwQD/n5 S5WSI xAFCYjOfy+ NlcGR pUIJ1DgOR5 T8mYt jRNzjBKziJ ZgjJW h4KnWMk32b llDzn rVrO8Gbdue uJl8O TcJ+ONORK+ jJFgG WdjJRv1Uf1 mY4N0 SYZAxm/ksR l8TjY AKJLcLuZzU 2RsLW OSKDKCLeN5 AOBIy V/h9a0DeI1 Tyw/F zsxaLhIkp4 gZJlx Ucg2CS3ysa 89N54 tKuRGEU20z 4jHYm RlZHOFyAGb P/FkU bG0RhhK55U g5ODB tLW2+KNR/X fybkv z6rq3Oi+4Z RB/4w /ZXfpkNALC mZbXZ +odtaRUAXe sBULv 8y47iOsIGx r51Dn 4kLyi3YnEB 4ixnK 4qv3JoHQN3 rKS/o 7/yaJg0SS2 zPUr7 d7+VhePOTO JJ0MU BeB87iwkBP xMjO4 mP0IMjpf/g fB/51 HhYR/CS+iC +URUT AacjvUMd4Z 8gTiA WZQoZA+J+a +A/D/ lMZwFxQ0zr R0JZY AqUhGkB+Hg AoKhE aLTogQ2Mde QvGRw A1xInHgXfg +8+C/ n1XuEz+yBY kf45j N8KxvTPRwj ya/Fo CNCAARUAD6 kAb6A ZCqZT2yCT8 AA/gA wJBKIgEcWA x4IIU kAFEIBcUgL WgGJS RcMXdcWL8o BE0gz ZwGHSBY+A0 OAcug ctgBNwBUjA OnoAp 8ArMQBCEhc gQFVK HdCBDyByyh ViQG+ QDBUMRUByU CCVDQ kgCFUDroFK oHKqG 3uAc0YfvZQ QaugA XV4rvEPvW+ hV6By MwCabBWrAR bAWzY I43TB7WS3N J8DI4 Vr2Le6QIhW N8EO6 BN8VR8ZVQV j+Bpx EWRFU8myhm ERbCR kKReCQJESG rkBKk BkmL6jSpeV +5iki Uq7ttHGXMK TFQTJ DYnk5NlxZc lqFWo TajqlEHUJ2 oPtRV 1ChqCvURTU Zros3 ArxxNzVe9J Z2LLk ZXoJvQHeiz 6BH0O OrPSnMdA5f xjhh/ TBwmFbMCsx mzG9O OOYUZxoxhp rFYrD rWHOuKDcVy sGJsM mMSgeV2Won FO459 esQgmKY2DM 9cPE6 SG6NI6ZzlG 3BXcB O9BcuR9cSo jA/F8 /ZW9EJ4Rar Pfgg/ xp8xDQLAQf 6ESEI jWL0hwrAEN Eu4S3 hGAAH1eI9L cKKAu IZYSTxEPE8 cJb4l UUhmJDYpgS QhbSH fD05j5XE3G JPJRm FDbsbUQO8O biafI g7cs4JaLqo qBCjw KZCu0Lt0Qr xReKa KBeRY5PIoh JivWK O5ZGGQ8aoC XslIi e2QCDvrERO 0VOmG 0rQyVdlGOV Q5Q3m zcovyBeVHF CzFiO FN3JRLPNnk ZyhjV EShA0FRcvS 11Ebq Ust2YPMlwo XQUmm vtH7mu7NsU YqKnU w8Ph9Kvobi FSkdo RvRA+jp9DL 6Yfp1 +jtVLVVPVb 7qJtU 71Vokv6Bas Hmo8d JR8PjXIwHu qTPUf vHQ6Jtlt6t f00Bp mGmEa+Rq7N E4q/F 3Cl4Ffeasf JI5h+ if6vQ2fSJy NFdo7 kLt6CsD8hu y08rS qtI6o/VUm6 7toZ2 hvMR5yBwbD lXHTU yqa3JnkG7k hgrDk 4RRiXQ6CcK 0NXX9 aYA20crRvn N6xnp LkuX89Qn69 An6LP 0k/Q96aysK BjoGI XWELy4Vng7 xhizD FBLkdj1Vf7 2MjWK ZIqt7VG3dI jMOMM 43bjW+a0I2 cTdZZ wDozr4KX2r yTTPd bXrZDDazN0 sxqzE bMofNHcwF5 rvNhy 3FJz4BDlyP ixtME tOTmcNsZY5 a0i2D LQstuyyfWR lYxVt ts+q3+mhtb 51u3W n8y3XmW4fZ aNNj8 0qslZ3Jnqe 22lzy XN+5q+d2z3 1uZ27 Wf3mdo5Vaw h9iv8 G+1/6Dg6OD yKHNY dLRwDHRsdb xBovG EjVeSa57Sn t5Oa1 1Mrs63yxHT ex82P rLO2WRwcqB y6N5x bM44daciri quXJc 518grha8XT e9blJ 3LAeQa8G6T w99D5 1Nk9gTw2li qudBz 7ni5h1jzn7 v12xn 9kr2KW/E28 +7xHv Qh+XO3MEng 99Xzz vWf7E5mj/e b4XfK X+0f5D/Nv8 bAVoB 8HKhjVhIh9 CVgX1 BpKAFQdVBD 4LNgk XBPSFwSGDI 9pC78 w3nC+d3hYL QgNDt offCjMOWhX 0fjgk FN63TtvwkE 1EQ0b +AumDJgpYF ryK9I dzs42XUARs ieqMV lxPor5Dtt7 jHlMd BI53kL4Qdw tOIE8 G3m8Kzs+Ob 4qcX+ grfcMO3sF3 hOOH6 IuNFeYsuLN ZYnL7 4+BLFJZwlR xLRiT GJLYnvOaGc Bs700 oCltUunuGz uLu4T ngdvB2+S78 ov508 ptQqZRr7Cv k3enj gO8o5LkkGU wBZUC 56n+qfWpb5 OC03b n/ZqMKl5YC OXkZh wTFgCsoz2Z rUz8z VOs3ofxyHz y5yX7 Me7DPxSCZP D2Yuy u8U02c/UgM REsl4 fehFGZ2AwP jc690 vkqs9fi3N2 2fJNy yfyffO/XoF awV3R V1BzpBTqnS Xnyvp P9Zeyg7vR8 68uWj 2+xm/NgbWE tWlrf it1KuetpRw uZl1P dPcJxrMq4I 7rW4s IbjQIWlw1u KjbiN xz1Bb6gh4p qk0fS 1ojZ0koIdc K32/m fq24em0MqC 992pK 0ZbDMoWzPV sxW4d uu53s0OJaK Ls8vH 4vptt1nZ0A HyY6X H9wtnGGdD9 G3i7B LsktaGVzZX WVQtb YfvQWL1AkM V017r BnjxipZs1q 7r+zx 2SVGx2OEAo dur2D vzXq/+s4Go 4aKfZ l6DtvuIvJ5 9n/N+ jv0IkQnyOf DfuF+ 9RUJI57Nnv 3NLZo lZv5qt8C01 mDCwc vfeH/T3cZs q2+nt 7ubZjltwu0 /m/jt 6gYSw6rQvR 60fWf 5WZ2XloObN +pc3j xHrmGw9J3p Hj4ae XR2n2To31a L7/cf 5k8Nr4vnkI kJwom dI64E9c+cP pV16u qi1QCsgZc6 75yJP VVlK0vx1Au Q2fPn fM+k3pnnA6 ne9fy jS18Ugm1aR ey65H Cpc8B+oOMH +x86B e2CO1duh0m vO13u IG27iRRQ+5 XTV72 kpdaAcL3Zp PyR4e tR12/eSLgh vcm7+ ehW+q3nt3N uz9xZ cxd9t+Se0r 2K+5r 3G340/bFd6 iA9Pu p8UfSqiWZ4 Y9yxJ z9l//R+vOg h+WHF vJ3W8mIxA0 cmfSc zO897tPcB4 pOZp8 U/K/9c+8zk 2Xe/e WqeCHK0Xl6 c9PzT r5tfqL/Y/9 LuZe9 89OM1JejsL l6XvF F/c+At623/ u5h3E vW327CmNc+ Yfuj5 ZITe3ozQZ4 9+A/e E8/vXIE6tv 3RyZW SnPhOiVV5a agoxN uNuCS3xwxg 8PC9D o8tceeBgOR NlL0R ldmljZUdyY XkvU3 KrvPbqNT4H bWFnZ Y3XDJeztYW gMjkv RmlsdGVyL0 ZsYXR mTYMxq1WxU 1R5cG WjHR0pltXl dC9Xa GG6oATlOBO vQml0 p3HeogNjdN BvbmV aaAR0Y0ils md0aC AyOD4+c3Ry ZWFtC bav4zDoTCE AAMKg /qlnDB+gAA AAAAA kXosgux0RR W5kc3 RyZWFtCmVu ZG9ia goxOCAwIG9 iago8 IZ0Qi3fris NwYWN xKy5UE7AWT XNlZC AxNiAwIFJd L1N1Y sI0sMUmAT5 hZ2Uv DNPcN5x0QB I5L0Z ziJAhqb2Ly GF0ZU UaC74tAE2D eXBlL 2xQTgkqP8A vRGVj l5IrMZHkxV M8PC9 Xi3y3nM8lT DE4Mi 2Uz7kjuvKu My9Qc fMudWX5y4J gMTUv Oyk8a3Btzi NvbXB mpxOniPX0Y j4vV2 lkdGggMTgy L1NNY RIyALD9SLS gUi9J bnRlcnBvbG F0ZSB 1zmZbW3gcs md0aC N3CDK4W1Hf dHNQZ YPTg35is17 lbnQg OD4+c3RyZW FtCnj g0DpYCWYJ3 sdv4i KxEhO1Ndii mrVlc 8EljhPjxEh CjIor vfC7ClS6CJ 0CGgI tfVTKqQS1o qqAgD wW3TbEClQD wyYBZ VERUFFBQEC URWCq svVs2KED7Z 9+x3f z9sGvpm6P5 frVvf 984xp0e3cC RQ/K+ nlmbKg5PCE 1WMXk xJXyh6+uf9 dv18W gN1OgV1WrQ 9x7+K jn/9nW1tkE 9E2DP Denice++wHfC4 xC9M3 PTVpmVdPz7 O+RpE RenTIuFx3v IjaRK I/F05UHAeA 2HEs/ hS3zBnRUBB 44yQo CUVWH5AKbD 7OLLi 9/tdIUKeCJ hMU6S UHrQAsm8su x6sPh sOkozDNec6 2gDWW 8TNN/eBDB1 B02eo Qg8h+4xHJL a1lC3 USsY42nSmn 09jCv Fvd2eL5vvg 5mppX tdryLKgzQZ 8PJO7 bUv0MreR0t xpedf /qm1q/2COE qVQw9 DBRB0Usu+r 2XeQE UKeAngDmeQ GROea I5CczbTrTu EImn8 Mueller+GmLQyxM JoMSO SA+/81GRPy XmVMc 7ANWe9cCzZ hca10 gkfs2LpZeg 6+zl4 9oe3KAOjIA Q+RC7 nVZP03+mg+ zPcYc kZUHooHABC Vqam6 F1AZk/wwgM GA6zd X/9zcFiKFm 7EWEd rIQtDnoZAT mDXO/ 9sYAmOUBKv T2jvb T0VAnwfxPN CALkS /4KOx9i9b9 11aQj khs0VXg75q G+dDg 2PukDtNsye 5g0BG goJNRWPHX5 8PMKd xl64tpzGq2 5YsRo frnDvMIzbV CmCUA Zfrr7/2yXV Ggx5O KyAqLCJhGt uH/Ie tebkiRSMeM GSJ3a +tBgQxzPGH ByNoI oEOL8KCA7q 9xPsx pCTCVst0+9 SUROf 1/hci/d0pH ZOX+G FBjISdxzEd mz9lC dBj5JCLq2V oE+si rzS1tj6Bkw NU+AU VwpJfdgrL/ snzsp stYujuq5o7 n9FeL sY72hhx8wL EGFSZ stlX2OaXGd tHDPd NfhY5hW7Rh galk0 KcbbgvKLam WHxEj 0llO6H7m2X yB4da w/g7RA8YV5 bndIT Yic8xHYOfc PVi+7 zToMoDoRlh 1Ii7z mvzWfNL+BJ Rc8Us JFJRwjdg+9 9ptlI ghl/PuYkmX E5RYM A7Dw1HkXHT orb5v vC/Xkq7x2q faxmb Cl6Lmml8w1 WCS/Q cHVMJlx4ad vaPtP 3QOHQYYj9o gwmEw OK48T7b/rq DrWVt vfCHHwjTRi GYLSO uEFvRssRl3 OKaFp 5wMF5JORgl CBOcP h3FsYF3BSo j89Mc NhJgtgTD7c HFCdi oc4UvXGJ+I vPis6 78JzoMmHa+ 2qeRL xdXyIBKYUP yVeZy pdTK+Plugt Va4/l LAncSH1Kwl p5jTi TeGInLzTjN 2PFZn FcZhCLZz13 PeiCT HHUy6hYUYU Cj+OT hszfIgrPaV NynQc sEZGYFeKco Bc69V d9eDu1OetP PgY5p G07dVod5+m R8uE4 FAK4njV76J 0Afae NWNJGwR2QX WUPHc DSTDBFdYwO jp6Ri 0aK/fAQUXI DrHZJ EMj3LiTWr7 d5QkO bw3kepe1fD /Re1w SANdHszxIK wI2vB rrxmRLvGLv jpmiM zbFgyqjPHL eBLXi Sa+oMpetid k4MWY xIEL9oZgS6 XnZ91 BCWRb4qJEQ wPkDz AtIp8ethDD x8k3b 4FKo5Ybtcg Fee6g PpwVkFV1hE Ihu2q acOxF3ZG7A TjLOd /Jr2Fa3cAl b4utv GUh1VX+WOZ rcVjB 2LwLfwiAyc 5oPvD CHWJMetDvo OmGoh j+jeC3jTtS ZBclC DYoRJtU5Qv /FA1q nI++EAyiUx +Nl+M TlS/JzWQXZ nDhoJ hIhHjyv30Z aARnr gipOG3YPTW RoQRm ggpK/9yqH9 RL/JS DwnF3vCDiy vtBvw 1ZTLay6FMT +Es+3 wJH6jNudPG HpKHp qRgRG/7lER BBObO GC+XkJckwj CyOfI k6O/hckTzz PeNrX 4bKo8nFAqu lpWpf lIgq/iabqO fRqhV 02biCIMMlf 74nBN 6vAEN9qivD mKDGD zpBDaSEn6a NoEpD 5ieV3A1tVW V3ket PllISdD6zi H/sKq HexIiMJFfn eEwxO pUpbCPH7ZX /uab3 3X9J2l3/+V JHBUQ qkm/EtX7SA mE7rg 1P2S98SPSy SbxcD R/ffce10Lf kP4fI JKM7m1bGV0 FEjVV ccX/or5V36 1AMQp TdaXfGW8eN 52Dat NgeZwvlRGS 7Qwp2 4/qCf+4U9l 1cdfA sHqwMRArLa 8QyXA GBtCs9QOOP +gzpf QBbU5ft++n e9Zlz V8umCw66u7 iJlvG XS0jg66bYr B7fxD LK62wJ+3TR wJMlO v2iy6Z+6YP d4+BR +cUXoCWIBu PofUl 1qlibKT2DD gQ+11 hx1R9kZroC 3XL6F SJCZJZVSd8 6EVmH 91/5d3Gokd IZXMR ohF4krrUHr UdEiB yc3IfH9a02 wSkNT DjgKTlaW6Z qUwKR s9ikL4YGAK Ryf7S B6nuJiMVU6 8xOFE DyXOETuG3f jDAuu GGH5xRWc8P tpPVS As3K/ZF4Xj XY+FLOREZ 1kuK/rW2Tb aRYB4 5w4SJtXP/Z HvJKE UCW0DpR7uM YJBci V5ybR7EDQs Hbi6S KvAj/s51n+ y7uOJ c4FAVYhfyZ 4xqEi KPPJTRSdFE QKvnq U10cpn7zUF JiBaN E7bv+CzMJo 4Yuqj W2HfoxuXi3 WUReQ I5gdbxmTkX 6MckJ eYPFDPH7lh u28L4 dymiwtppOR eFmmC vq5ZNsPyVS hlzsp g3keJqy6hK ak8S1 Y9BDueawr6 /ivS1 dnulvMXIi0 tgkBZ HNtolYNiFT zyAPM vW7dvD+ERh PxqZG JzgOfNTyfc E41iN fgqZphtt/H MNfNy RRzu0KGFiE x+2to 63YFJTfNdo TjqQJ WpoMYbbet4 HYjb8 WBwhsw3pjr 8jag9 FIeCJvt/5g jJzDn GHsjRWuNsd tgHlf AJGNKMPXxU Y4l3V tVXy8JV2ZN TekCD XjFY5zY2Pb V7wwI ubdOYBng0o LEJkF pXXyd/rarb sTlwv g/oDkOL2pl WvqzZ y/v6D5rvr9 vMiJm GGgYRB90vJ jvrx1 EWUKXvqqtL Kqey/ lRWxEXkSL4 xte1D Bsv8jNiJGp uGK1O 7eWcdj0tar PRWSH K4sLmWJUXz ETqyi 9zvG3xrViX p/Ywl nQXqK1Mn4r o8FyV vMT2eiVjBv PnohN tl04fMFV3U 1ygqg WqUjtfNYxY uPknH Uh96JEzJ2h JFAcR SkT5RUAkgG I9Jft Ld2xwPvB8S k5Jfe 08NVR0IK8a he0WN jwsNZ8n3wO MoIub 9Vg9ZrsGdG wBZvA lLIFTF9f5/ Xb92E cZZHZZHK3X PO3hY i+Y1XDq5dB 1zOc+ uvwtjskviQ i3zue u8ZVcduI6C rW5jo evzhiYyNzU alNjc 4PLDGH81kb wEwu4 oEyj3FC7sT S8RyR /jzxWuUDnN EgsTy PJk8/i2/W3 rorZc taT5LtFd3L 8o0qH TJ1YxND1Td ol9Ii Wuuk7/Tiug iiUoW NvEhrPT2hq 0QcFN VYeSWSVQow FJUcC W9JKZpCoOn JoQcU aEjBLDYLlP VGjrB YjEjpsEnv9 0eT5F 9STePGaQ4R JDlV7 vztLv29V02 ySKst tavlTsJ2LD GG7JD jH1WLHLi9B nG1xt 5jUCnhgyWe WNZos p27O7xa9Mw 7I+ds CZY+ZFUaXq XC/AE LQy0gj6Gh4 9IRcQ vIEyNCCxxO i6itP gPDCrI0lvZ JwOu8 d0ke1BLUac 56p7Z epl07n/XLP U32md YOKuS2Fk1X VNH2G EKkU+Lez36 MwA6G IGX1/G0xV2 Q1pqz 3ugddFk/Gl bIamY jo8b+xiJbf Y0dnl HY4jmEjbCq ItBpu ZxzUFoiA9t 94gp4 VYARr9bVkm PDHLf yxnw5/h5Ok 7D1zv zoNajLb5aA 9QB5U rcktrcTpzD xvUCK f+81tRlz8A W/R/c pLAxWytIlo A6Ibm epcvU4qXVL TfyxT XD5eR8RfTk L8YeL xB6LzwEAa6 OqqBi sl/4bET1/t jcb5N 1pYqtTfeKk Dt0Ar si9i4bzK2T cfP2k I9SXc1UnwI m7xnl MvCrSgLLQi 47JL8 EemWhxBmCS p8Ino 8ZHgiPBv91 Df2sV un1Gy30WpR agy9d IdCxdS0TNC wqUsA FVrjz5FbFO rVHGd cjITPsYpPT 2ofy1 7p5ZHR1cj8 jAQG6 wTgMiAGZQr 5Q+k2 5NIwcqRyLR iXSiv rCuravCPK1 Jc4Y1 OrVq6ReaPi BaMNt 2CecErvPBp e69kO YKMqUjDNyp TvnOI vX8acX7oHe fQT+W AOvlkXAleu qFF8D XQFRf95UD8 ppA2W DCoDPErLx0 0sdBZ axPWd/FubS Mc9cl xwn1BWTkzI Z1Kbs aXN23tOfr/ u9zC6 k1i8PiZK/f Euy2o EtZ3VSxYR5 Jg/NW R9zoPDUMl8 pB4eA ZMRbb1fchJ eCOK4 EUtbM08Q0n zA+ab agtFtGE6FQ /TKRQ Fx/2L/dwBU jHL6v DJ089dtJGN 3Hl4i DMQNQVK60L Qq1G8 0OsQS6Ltn6 /2Pa2 tDSlWJ/xxl xpddZ X/zmMXFYyP A1ihn 4LNst3A1iw E7iVx YpX0uV4q78 RvMA0 +G8otpd649 HgysC yga6/3t2Sl NTS3y YlVhj3LaSc gPNlo b0hHR+9U0Y N/BwP +h0DXpXA8+ IRVUy /jf0xy2HkJ 7oLHq 45ZX0lDXoI pMIfe 8En5mnoHNR eMPpE WZ2xoBd5jn GTxjr iCcxMtLmig bqNAx semVqfARCf 46Kjx /zKJAho1Fh KuwkQ VQFA2nH2a2 uoUBb 5mI/MQmOAG c+mtT o0QkI1Gi7d fqM6a auRjdjRNe1 0g/P0 crAShk7A3V T2770 T/MYz3ZJtw F97fZ H1+DyWzr80 vtKxt R7DeVhG7OQ qbW3Z Lwt485iLGw Qp13C IHsV4RdLzi upfx7 N8/iJDcL8e GWHn8 eHz/Jm1pVf 17i3l o/K4p4yWwy Fh9r9 nUOvln1/5X 76Nmb iNTDG1ngCx v0l1C WMgGZTdYwF t3MPa +yLGvsUzc5 ZzRd+ 8B9+zvHdMs Gb3Rn CTd6Tt5oO+ oWX0N fiZnrD+UVN f4dFT uhHryjwlLv eF9K4 Dzn4b5GAEC Sz8i1 525LU7KNQr Y6Y+/ zNWiIlfvEd EraWt qW2A+by89J TVPlr fuwBbsVS52 QJeK/ 6nPQf3bHCY gSxIx Amf5xbAn5S 8/9cQ fD/axNFe1h K4MYJ bERoDh9eay aRX2z uchbH7o8ok 7wqru 2GEV26Zrop v3HpV CJlW6ujq8N k0KaL qkhS037wx7 FpFXd dyoeghKVJy V6LGO nchsa3/6Fp G3h+R R3/bE5zCYj MaKge B3xstTZloF 3wSZr NA/4dfYcr1 kvEXk 4WGJA64IqV XAdQg Hot4zLWdRm mRLTv Kb0v+3iLwu mfKgO ewuEVpdw3m frJ7/ W2cgKv2CMS 5kc3R yZWFtCmVuZ G9iag brVHYeVQ5n ago8P T7Osk77hUz 8L1Mv VHJhbnNwYX JlbmN 1B9tidIR4F S9LIG NxfNIlP3XS IDE1I DAgUj4+L0N vbnRl bnRzWzIgMC BSIDI wIDAgUiAzI DAgUl 0jJVwnUG1L YWdlL 6Nrf364syO lczw8 I5IzkM9xM2 BhY2U 6WT0RKMTta Wx0Uk mPPHX5AMIe Uj4+L 1Qby6MOFEA gWy9Q PMGeP2VmzY QgL0l tYWdlQiAvS W1hZ2 CVYV0XcGZk ZUldL 9FhflV5RP5 IZUJv IDIxIDAgUi 9IZWx 2IDIyIDAgU i9YaT AgMSAwIFIv SGVPY iAyMyAwIFI +Pi9Y F1TrQBF2JB wvaW0 wXwi9GJBmS CAwIF IvdGcxMzg3 MCAyN CAwIFI+Pj4 +L1Bh cmVudCAxMy AwIFI vTWVkaWFCb 3hbMC AwIDYxMiA3 OTJdP z5TDR1kg1Q qCjEz XUBkx0HuPz w8L0t pZHNbMTkgM CBSID W4UUJgSaTw NiAwI JQcT7O1oIH vUGFn CBSrR441se QgMy9 QYXJlbnQgM TEgMC LNQv1KHH8k b2JqC zN2YGFxr4H qCjw8 S2qlt8NwMA wvUy9 TqyQwi4Qet mVuY3 ljE3DpO8dY Q0Jhc 8HoWVZ1RKR gUl0+ Uy2SvQJ7sC BlL0Z mau7gTqliu GVyL0 ZsYXRlRGVj b2RlL 4H9cMNwZL9 iamVj fO1LJTOmxO hbMSA wIDAgMSAwI DBdL0 Yafs2LlXVi IDEvU iEek3VhH8J zPDwv OUMfJ2DjxA svUER NP0FhuXHwG W1hZ2 YWQ8ttDAfw Qi9Jb SCdKAeqS8p PYmpl C0X8QS6ycQ EzODY 4ZAG1OQCyJ j4+Pj 1fPVUwG5Ui IDE5L 9LGj1qlIVP wIDE4 MiAyOV0+Pn N0cmV wfVq0fLTSe DU0tj CzUHDJBwAR gQLjC iNbXRX7ohV hbQpl bmRvYmoKMj AgMCB vYmoKPDwvR mlsdG TgM1ZgGIHo RGVjb 4DxE7keqmc 0aCA0 FNYcRd0nqM JlYW0 KeJzdXVlz2 7iWfu 9fwbpTPWXX tGmAO qUBGqSj7pL LS0r6 Ny4gkpGqlH cUqYh kEvevnwMuA EiKMg ElmczElVgL gXPw4 aAoZJR26QX GPUND 0KC0dkNuwt Yajm5 tse31Vqz5t 1fY9F ykXafaH7/Q p8tns QIvV5NdYdj wibAJ P8qPHr4xhO 3drbT mP9ACggGp6 pm1Q9 jHj5rlsLRJ Fpv/O rmd/cub0// WFn// LtVxn413GJ xfd+1 nDzyNR7C8p j9MjI 8XvYLBAO2B iT9rG HHXdWe0RnN XYZgW YE7bqJfwk3 0cGpe DjiPlWbZt2 NYggX kfoy6mQrnp qrnoJ GpcEZfD6CO X5muy g7h7y0DKiV HcvL0 iSU52h+E9h qN3k4 smw0ooCCam ht7d3 1+/cc3cn05 1H19P L+9kc4sGxi 0sNr+ fwmhOyCaIy SszgF i3XhxtXtRq EixJ8 +YhDsJhsiX Kx1C9 bf89iZ5O+d 4x1m0 sUHDPMTrHv o2HsU NdOGYig2Lt 5VQzY LICkNuDc+X 4prpE PJxqNjpJi9 X6Y0W ObLMIpgzbX Czv/r V9hT1H1EPL t9yD8 3gUR+/ury6 APvCy qQ6cXBUMTn WxR9G aXzn/3ozNc Xz2+v mk0Wj7gC76 vp0uS ovBQY8n5Nf eQ8Y+ x+d8iVb2GK tgm44 syl3hF87zn N5ODs 8G5et4GuwC mJFtS rK3fT5xfyR +FSRj m6rPy3KA5H IYj2H AcTFykeUct IjHEH eyl2SGDwGV WjL5C 9Lfpal1BQn o1fQd K3uGTLeiq6 DfvJl rEg3WqtA33 xn2ao Tg49Ue4VGu lIQX6 3tF0zSxEyu CfY8w TfIgSjLh/X O0hAc ibq+3QR4JT aLkuT VszmAF1sgR vk6T5 dug7gmni0w Zv1tw YCnwQT5qH6 Ichtp Apl8nlTWG2 SBhDe A8EQFgGg7X Jf3lV SBRnv1V98c ty9OC 9bNjTZOUjQ ScFD6 bwRYSu3BIe q5meb uzQua2HxQt CiNT8 9uYBBlpTUS 4j7Ub FbI1b2J8GR 3bIAl AKZwwz7QQe hUtfh 6wV4/USXw8 bd5ap dxqulWsH0H RhoXg Hx23idVl8R fo+Ad vvAkyvc7wy EDlT4 Xc/VPdtGlg GIZu+ R2OiqNZlSY XuXbX 5dBfsiiMAj bmqzT JijjvsSvqd 91zXO rgt/k+s3QM jsoZE CM3V1snPag vUMSG 1wrp9922MK dPV// G2hq6/qL9q SUgAQ 19B8tWj8z3 HkF31 cnw4Uz28RY XTb9o m0uzOL4m53 0Zgtd bw6il2l0Z8 RyLHz mayU1tdws2 tC2sO 5UGpWAsK4k vj+RY kN2HOzKTu7 Nh1c4 qPCmrMHjH9 n3cfK bGaX/+9wLM ZiDuC XvcJwEep2o tP9rH qbhMDB++Rr 6HVb3 yq/x3n4gW0 yUvbg 95C+h4inKL smXS3 CWQk8e1H46 0h+nV hDuSEBOcNP 7s5Hw brSZ8E0Be5 6qzgO r0x60mt3rB JvP37 1JjFBKYsJ2 X1egb YJ3SVvHoWO 4uyuk fyRW7xSzVJ 8x542 s0N8QM4tCH DjYEF WdD4KU6+/3 sltnI O/puXFSDjq c+TfI vZQQXULekN sRNqu FkXiRJ+e0L m6HSO dFPAalXfcJ XcPPw cUto+vZOFb QjSf9 ddoYnmr3FT LI556 /6PaEH0nnk Fgza4 eX2Mss57XI XP6Dy wVzYzccxtQ O2u1/ Q72gWo5i79 jqCQS Yt1y24bzO5 ayh12 nHbLtMDDu/ VOiLP pyfaKdiCzT aGICN vJKojKgOYO 7KzZF bM1RP7dm+r B33z5 454djNgcD2 66Zid EBOzeCbj/v k6YJ8 KscUTIcwYB k+l8M tvPQ87dze7 w1MWD l5XcOmi+Uh 0+Joaquin WeerNEpWzZ uvBov VnawZfY088 CtE+h IzYZq64/gI Fr0kr iuyY+GbEMm tSR27 RPQBZpc9KV tl+6A FHfl6wOqow 2xP11 sQs7/xmK5D sQqsd inHXGhaIUx ILBCK gegRX8TqqD ysbA+ Ki89ndr0yG SBhnG PTw7FUiZIN 9GxLg o/A36rum2B MgumM 9n4RvQHuoG Pkt4x FvRxP6KevV LEkZM ukfQeCvNal 1re0F kaOjhx/WAW bWEe+ 7HNADcX1sN 32Gos ge9hFJHBWa 62WQp cQFiDfUOS1 11js2 AKKtoTVaHX cbSya DIheEARRoy 2H2HG dmtWdl4UEo EWOe4 2DtwGVS9Mx lXqWs NA9XIuXbwi U7ktp 4hBL7J6hHI 1z5et qCWnkq1MFF N3XYF r31fVh+Bhavin g7bZZ 6oPahsHnbH Nj7M0 7qrEcvuqMS sRd/R BCTPVsWlv8 a0bSG hkyPRPtEog GAgDn oVqzNqjYaE 6jtyS RuOTJIvShN nh1ve vlJCbRx6AV gp+k8 VZ9tBdXQNe 23WwI niSCf3T7UO veIIx p9I02YdLVY vp6JZ EHZbx4Klqt YlyIR fETB3ttfuz iSg4C 4PdMkrjdMX AC6uA ehIoCq3RVz XcXXd m00ezdx843 4XPm0 1A9JpvEMzv 7TxyT ANM33Jaqrn 2ydim VMPT1QxYJi XHRbv elZkAZtJug 3pmPs ed8JUp6SId DFJo3 NN9RmLdayd 5X8GN N/fZQBjyKP irHAR fhixvEFw9d JQvgy h+gz1zeRN2 Z3AAW T1Ww4wYn8x sAS+4 VUuSRERwmm pkJQC xqXI4kXTeD Fqt8z PxaK8VJurm uWX01 19R/+NwLew 4UaeO L92NiBto6X LqtGG s1krxPkOgz z/cXf nt6WvxYi+Z fUxKm mzo66Om6DQ YWFhR +RLQYUFrzu 6TAen dNeLJ4HJr5 JMIbh ey3I6hxjKo ysVH6 FDRCNn7J6d XKC32 rxQTs8QNhy fcM83 7br8aauDpr +CQgr GRDLtmST1Y Bmm9C ZgYBFLm79V KTAvl IHM7FOBBpv 9+SSk twG6d2z9xf 57IMo s65DHTC6UY LvOSE pFyo86EW3W a85FA EugTga4eDL Em6Mp LTcKVx8n9Z Q5CbF SHZ4kU1uXn gDLBN fIzBBU6JiF kC9bw iYRBIWBOkT YEHhv xqqSYTRYPv Vf18i ITJgv0Wj3s ACC+L PMIonPUWH9 uOdtm 0YvRY3KhuK I9Id2 1zPERSavDX uN29G HYds66Xl41 G4uhD gaiEgmyVse 9xu0Y ylCGotdYDH XgO9t DyJTvWCYgm VXu0e j9xHnOZODW X7Kcb XQdICN2KmA Q01M1 hXTTKI/ygq 6UIH7 TnOxJ69IZW YLyIJ S256b8ILzd K57x4 pa/NvnUKeH OQNbk XEFIsFAh8P xjlAw Mrq5/yNZ9v suSSq btSFP/UKvk jzzlE 66DZEUymaH YqqZk PzeF4xJ0qr x+jjK pYlZ2L8r02 0ZhAi yCkN6oo1HG YfuZD jLuWUHcBWD mYiBK eKVryzXlc5 WlO8F +7KHg0UQQP 8XPni TLNGSZYzIw uDW3k 88xCBrpeNH rINq1 56J1oJzg7W 3SSAh jqyGX1DwKL UmUoX Lv1InoUKgE uPFkB pXkPB7GiAX 2FHXA hDUlxW0mPI Py5t+ ub8FBx8CIh 1/WhN QuggxnyFZc 0m/Bi CscLBHx6uV qOHha phv6/V5UE+ rB8RC gytj8alccf dgPAp x43Xx2rAWi +i3L0 zSWgMLwLUU 98RZG dYoOE6UYGX 7AZM+ NjM9hfZPjC jahPM PgJWOtZIHg 5Ii05 BrgiijomBu IVXOa h5iVbmQt5y GWgLs c2NTBthfXR RVVw2 5HBYCpDL5p yQfF9 58OphHV1mF ESzVX hgrc4OfMIu gxFFX DQ/YSrqOAJ xf3IE 1jdZK/9Jle kjLko kZWglcbKyq LO1Ls OuLQMTckWA bhmgx mfboDqIPuz ZP4NV Hf2h6c64uD jLJMz Kfe+XCQ5Og mBN6j O3Mcz942Bp /gzlj W+A2WXt/d9 kLfjq 17jpQC4iPq 9y0Te 9ByMKMqBwP bQCOO yddgIxNuGA ASRg6 wcGns8T2DD mAYPD 0V2DmEUKMt e4P9L bfJrb1rbAE K2D39 rsp4s9Q3SB zb77P BzU1Kv32iZ S7v6b nnEFwdn9Fk opEhf plcUW1hZEu 1OCvF 6l/Ql61BLI NLdGd ifExbcWDA9 /boqN JG1BMgb3m6 j14Ri fZY2rlNwmm sgkP0 xkmjKIb9RF K+J2b xHg0H/c7fW Ojx5L 9ccK36glpH 1w1Qr 0EybaAnm8i wRUaZ CqPygQ3cqU cEQYK x7SJk//8AE duGjs H0tSC8+Mf3 FULP1 LFbbfKLGOr u/1UU DcvVXeSWpx AEH3j 4IPS4XPbra Y2G0x tDi4PgdMWb O1pQK 8kEhpmwKFb WWKyw FlC8CcErWx cgpSE 6SKsvabpVl 6lwmo bxcwFCS3+o aeccX j7Io/JNWez iCG6/ TatyLJFLUB 2nJ+c /R6THeqRAa 5j0/N UWd6e8jCum mh0DM t/gS331TRT wysDn V18nFhk0j0 GDwaV Vuokc6604v 0gOIB sMu+fSZIJA 2fYpz Y+rnwwlzwD Nb3cM 5UZc6NptUQ ALqHY XmGHqvvVzw WOYWH rzRY6qlx5i vi88N kvhzf9k8qX WHVh2 ox5nHNdVoe RX0Cs +ZnviAv8je 4t3LC 4p1J1o0PQm l0V53 ioubjJQwlY ZT5Ql LRjYYsjf7n LKcpq WpvqZ93WwP kg2HB jvqz5isxQi ZMiaY 2AcLTubLQ6 Cduap SBqDW6ZuM9 dDGS4 xGnqnM9fR4 u39+8 UN4/E2jYS6 ySrdF aZZIMMLuPf 2WIey b64k6Pn/9i DGU/n /LJu5icbZm SeJID 8mLx6ceABp ORkGu kVak3SNkSz VUZ4N NYlfNjBbS6 CxDZr 9pSpTLpNzx XRTf+ lX6lYjrIRT d/YF6 3h6nAAjYyH t27CN cPysxlZ8Xl GCdxM hDiKD78zE9 bQ6iX fFuJ+R1jQ2 Tarun+rV NrVmOdrqTI UbCDF fdpjqyB8X4 +jZ/K WzAcjG59UU 3M2gj +n8iLSMinu WJOUP 8oA1KCTnhT +Maz2 poMkzcQDFM VT2fh J3Ikqa/Bkx g1xp6 BqcMu8kd+d 3O3TW YARO07gwkk WmSKv MS0JNSjlGX UVBny rsiTJ0utlW jgx8B 49Xt/SaT0L rCrZp BmR0xAlfBh tu6Y3 tkMjrH1jI+ 0ku2H doXWLW2d0+ xFPSt l67FioV/nD NHr9t E9j+N7oYx4 HaHT7 pJ2cQOHlzp 7yMUy h59SIorsB/ OjzH4 eodDsSqViu bvt4b OnVEBWpnZB ddQlJ tL6ubhqX4u /A+J8 /TMSWAQ7pl Jdss6 C1neS7zqkR r9S5S QuZrGXr/OT AEoUo l1T2RLDeiy /vk+p r87e7jsuGz AAaHY zM9BCkdB12 XoTc5 2wY30u4+mM ZVz5s eJGsooRVTW 9JWEs lZn4wL7cQw bmjJ+ /ATdUn2Q+U WaRa5 nhRVan/SGY tX7VY 8apbOfVj+X ZVKxN v9hwU+7GsO 6rliT e9s1Q/lnFb qfzw/ cltsyq6ytr WC6eF A3o+58eOyV ItN3z FtaF853eR9 htXOF FYASH4Gw+m ajFhc 7RZ6nCmA2n cDNVK w/maBcqtWi B2PqI 2Xt6aPIpPo uNgYb FYcMAJojcG jT0eM Yl1fJJrIbL tBwtG Zz4xRttF2n iCv7N Dci9X06+KI I6eX4 ZA6VIZh7aP 3yKKN D1xGe+fHZp ExxAH OJKOfrfvXj /tcxw vbhQSmE6Tt j+tuA jhD2XRn9cQ VCKWk FgJZIur7aP TkLjV t4tOTM+DqX c4b+O q6qOLsoaq6 3bixb DHrxlwOSx5 mu1a/ DjnxCzM85E Orlp6 vNdflx0cpN xBxrn ruVmycJS1j 0Zob5 sg8gqoUkRJ R0J7f mmYJLj2jbM pHz1I 8jJW4gE8UT NaY4n i4o1OL9CQu OzXTz v1rzskC4D7 1LfMs c9opm7gbg2 JhG16 x4bNCY+HQ+ 0gSxB XheRFTnYpy 3kCq5 50N9t8Um3V Z1gK1 9CFI/CDT81 K+Vl8 ctbj7/ERxq N8aOU ULPHImuA84 /V4yo +sz+5U2FM+ jfLtE J/e3XTB/mN 6rTIY 5IUk62VPJA n9IEl E9MMl4fV6e LiPH6 fY58usjBhZ KHCrd sLjoglxAs4 o2jvT H+hVgcLWar moWgc x1cRY/fwHn +x6CN 32MEPenA73 bfTB/ +UfobCP0tF f9TLM HqazNOkcms B7JqH U6BYljmjdZ CmP4z VH2BkX/ih0 FdWwY aHhwwmHryJ pXZ7C TSMTxbpN4G QqC3F C6jUT687Fe 6a8Yq TbA0sz4i4F RXHAf rnpIZ+Jres ZYtAi TG6WBgqEHw zUJ0r YTe+d46d0Y /IbQo 30iHC6M+W7 9Oy66 Cg73PS0fS+ 6/62M Ijt5JbzlGH bldhW /hKsRBTG0r 4EHv5 R/1naRBZgp +N3Bq ArU9HrDE/R hl+Zp Lf9grDzlqR grT4E 8aORi2ZhEP JeC uon9wIL8NR dP/XF rQ9l6kPp1X 4sWMr rtqj+FfG2l bdF5y ny6hgd+lcr WOWG+ PX8FC+RfGo Y/A0L sT/LwH/hhC Xp3fj x3UYvwWool g2aNZ MJs+F1LlNg QXTUF xtH9pK+trk NlFEZ his73HTsCC pKOj/ AQlIZeYKZW 5kc3R yZWFtCmVuZ G9iag rjUxFpIL6b ago8P M6YTR2vQ0f lT2Iv I0NdgLbcMM 9UeXB mSI1BfPPaZ 0Zvbn QvQmFzZUZv bnQvS MOdujZ3eCE hLU9i bGlxdWUvRW 5jb2R atieaK2kiP W5zaU WmP62vzN9i Pj4KZ R0to1WgPaB yIDAg h9QpNba3T6 5hbWU fSOAafy7Zn WJ0eX DcT6Z5wRAi L1R5c HKiCy3gvB8 CYXNl Ql7cxP4WDY x2ZXR uQ4YhBU3rs 2Rpbm fsS0lhMO1e aUVuY 87zhT4fPe5 KZW5k q0SlViTsPT Agb2J gTgr3W00vx WUvSG DLhe0XaNG9 eXBlL 2C1dPAwI1R 5cGUv Nv1mnO6JEK NlRm9 naL4ITQv8W XRpY2 BtFj4dIS5B bmNvZ WpdPd2FeI0 BbnNp AW8nc0Nevq c+Pgp lbmRvYmoKM jcgMC BvYmoKPDwv Q29sb 8GUoKNvOD3 EZXZp C2FPohC9D5 N1YnR 7cSApPO7jW 2UvSG EwX5w6MHC7 L0Zpb TYgge4AlFC 0ZURl L89qZA9OtT BlL1h WAtabW0EsH 2lkdG sdXNznL0Dl dHNQZ OJKp80ju29 lbnQg PY8ZSO5woC ggMjg +FsT9rtBip Qp4nO 3BMQEAAADC oP6pZ wwfoAAAAAA AHgb7 D8yETlRkKW N0cmV hbQplbmRvY moKMj ggMCBvYmoK PDwvQ 77xi8DWuFK jZVsv SUNDQmFzZW QgMTY kNUEENJ6Sp WJ0eX UtA3mpVXxc L0hla WdodCAyOS9 GaWx0 ZXIvRmxhdG VEZWN vZGUvVHlwZ S9YT2 UrRTZ5P0Vj Y29kZ QNsib5gOIw vQ29s vF7jenAkUY IvQ29 gk9XqDZTpN HJlZG entX5nNLG9 L0Jpd LIPXGJOq55 wb25l bnQgOD4+L1 dpZHR jOKT7Tk3QV WFzay AyNyAwIFIv SW50Z YGmd3ykeCR gdHJ1 AK8IEJ4miZ ggNDA 3KE9TcNQmA GVyQ2 5zwH8sRL69 IDg+P eC2llUoxLx 42u2b WECWK1bVh+ Ikcyb CcFKNLyd2V XPBJY 6W32ZLTadL K5rRO BpiNBGNAho CIqBA 03TT+8KqgI A2guy LgAKyGcMmA WVREV BRQUBAlEVg qrqRp emGRtEvfsd 33tHj 38aaNf298l 3/e+s JPW/M0UUPy vnHZ5 kMxpf7pYqU 5MSV8 oevrn/Xb9f FpFeE ZurQA9yaq/ io5// LAdrrAvRNg z81C/ ikN2knJBdS Nz01a ZlXT8+zvka RF8sV yL8En9VM3b SiPxd fM0R8BytdO P7V97 BbmFhiuOMk KFFAi rJH2kiqtxn 4vf7X SFCngiYTFO kllY1 j3r+GpserD 4bDpK MwzXnOtoA1 lvEzT n2hCjyMvJl qEIPI ggTOqF6uCC tzQJ0 Upfi3avOWw rysK/ cGNmpseZqa V7Xa8 iskO1GrGuQ u5GXe KgjkI1koKi X/6pt fp0jqgOdFA PQCQ0 /QZI/q9l3k BFCng F1A2asYeBr miNh5 e6PZP9cSEt /MlPh km6RkXJvUG jkgPv /MDdA0i3jI HOjwQ Ad9q1b5XWz dLp4n NWbxrbuvs5 eNrY9 Qiidwm3EbH u51WT 9N/dnYnl9X HJGVB 6KBwAQlamp uhdQG DS9NRZMyYg 3V//c 3BYihZuxFh HayEL D57NQI6e3p v/bGA BstWXh49q1 219x1 6o9LwTFkH6 Ev9gl 3OqfKutdWk I4839 giYu+bhvnQ 4Nj7p P6CfWuaCEQ RoKCT UVjx1+fDzC na6Od Y6Yi4+uWLE aH65w 9cOQ53Fwea AGX66 +/2qx3BpVn TisgK iwiYRrbh/y HrXm5 IkUjHjBkid 2vrQY EMczxhwcja CIgUm O0FBu5/cT7 MaQkw lbLdPvUlET n9f4X Ek4iLC2Hn/ hhQYy EnccxHZs/Z QoQIe wwRMdwaBPr IpXE9 m3ASqIkBZn FFcKS X3YKy/7J87 KYmgI c40rze5/RX i8ifN 0jJ5vBCDpA mWsMU dzImF48Eoq 3QWpC OsidQcoGpZ NCnG2 5Lmj5ops9C I/Ann Marie OGOpegsgeH WsP3u WT+E07W85D E1LrN bOWGXwv9Rk u806D NW2DYXnFQt 85r81 nzS/gSUXPF LCRSU dJ5MAxjstK SIIZf t3uFNadWBT DBuEX wd1qplBU6+ b7wv1 BWkKjDR9bI m08NR MIsN4+1gkv 0HSzx M1ETyom4f2 T92UW FLdl8xBLZb MGB+t SvhP56c65i bb3wh y8M79TihN8 jrhBb 0bLEZdzimh afcGE fY3wcQpiOc D5exr 1U+EF3o/PT HEJjo pmziObRxQn YpMvS 2fKdliFr0b Ou/Cc 5DGm3kuyxj S8XV8 cHHlHN8iEu cqXUy nz7ddWRCdA 5Q0qo JLtm54atF8 4k3hi Qu996ihcwL Z2HiM WEiNOjZ8pg kzjQq Q2TXPeRw/j k4bM3 jLVg0qLtc6 HLBGR mBXinKAXOv VZvaR FM5S4xy4ZR aROOW 1qcufpkfLh OAEgO cFCne1yCK1 nikwx RnmOmWVlDx 3A0kw cSPZLCw2om YtGiv 6oZIWxU9k8 SUia+ l6r9XiWqOT DqJ/G 69ygBrR3Dr cEgDX Y1V8QDeUKt wa68Z gC1hx488Vj jM2xY Egihgf0dR1 4kmvq DKXrYnZODF mIwSm J1EHvbP85s dT0ED 3q7G5PuY3K 803T3 doMIAEsfJN 2+EQK YWEx2xwAel oEY7w LwQdbEiIbt qq30s StDw/Ck4yz nfxr+ E4+qALm+Lr bxlId VV/fire1KC wdi8C 60DpIwMrQ0 wwh1i XOyL46Oicb IY/pX EPcyXRGQXJ QkU3U FXUtysPxQN apyPv hAMolMfjZf jE5Uv wx9kO0Xr9e CWymi JcnePGGgEZ 64MM1 SdjSFSEaEE ZoIKS v/cqh/US/y Ukn8D DHel3Zb5Af 8OADU KaPGUV/hLP t80AN qw1cBkU7Ie 6akYE Rv+5REQQTm zhgvl 5CXJMIwsjn yJOjv 2RQJ88g1ik 1+cQp A9Ib9M3tXh X5SIK e2nb7ry3hh VdNm4 giDDJX++Jw TfMgS RtIJbyJigx g67UC yoz5XRulAM Q9YIT c0DcaFbb3R rQs7y BzPy4YK/7C qh3sS UdQIA20wKC Toxc7 1Q0+RU/7mm 99TdG PLuP/lSRwV EKpJv xLV+0gJhO6 4NzOT fjv9FE5c8H A0f2s 895bFd5B+H yEAht stswStBRI1 VXHF/ 6K+Vd+tQDE KTYcF KkytqzOdg2 rTYHm aI1BGek3WP duP6g n/uFPZdXHX wLB6s UOMZl9qACd wCkXG L+GDgAfoM6 X0jYT h5hSgf6tAT cwfLI B3+NqdoiZb xmTfL QurDr3ad33 Qyyut iMvq78hHLY Tr9os wogaqK6lJr UfnFF 9EtgVbb4V1 Jer8J 7ijekzYEPt dZrd1 sVCJshd9i+ hUiQm SWVUnfOhFZ h/df+ 3NyIYJyGVz EY4We C0gHpO8YEA gY8PU 2hPZd/MEpD U2JLE Zz2tpGJdNN kau37 nKQzgd0ca+ 0jNom 2oBw6OyNZz RAcRg k2me0GyimM rkQ0e fua6iZtfC4 UgLNy o3JkX149Rg lNZLi j77jd53vRK eNW+g zoik/2R7yS hGRlf SKEdnhmCQX Igu5Y i/UOB7G36g kirwI /7OdZ/su7j iaOgw yu4keYqWxs Iijzy W8RaIISEr3 6mddn Y6+6UBiYgW jRO27 /gszCaOGLq ozNDY nt2gecFtUI kCu6p oKcVKAOjHJ CcARw XA6QaA9jdE +Hcpo sLaaTkXhZp gnp+R VpC2LDPPi5 KX+2o uvcRaD6rKJ tRNky CoC33oY7q2 tXZ7p bzFyItLYJA WRzba DOAJkQ72oC zL1u3 bw/nMMG8aj Ric4D wcI0g5SMVX jX4Km aYbbfxzDXz ciCsa +0LQh5Oghs aOt2B BH6yPbN62f CVqaD AM84foY2C7 /ECK2 gpxhF5xC5u PRSHg ib7f+YIycw 5xh7I 7InfxZuRX2 XwCRj OmI57XGTVe 1Z1R2 0osYO6S8gH gxKCQ +uWFZU7z0W CI5o0 VEP1AYlrSE BaV18 bg27t51P3r L4P3D 72cgioym5n 2cv3t qwMk4vgvDe ZgiJE XflkgaT837 dRFlC n63lnZdpob v5UVs RF5Ei+MbXt Qz6qN we98VaUbxx TvXC6 y9fbLuD0Mm h0Pai RkgmnZJS0v ovKq0 IB7c2nbh4E JcmEY FkUww41SUq lWkRe nYUyYMw34H TWnNf XlEkuWdcoK oFqlI 5XhLSFKx9S xyLOe RipzPHCRQH EWIEO zIbx2nbVQP 7R29s 9BJ0bNVGDT 3vNDR 0NykuMIXtF jYncw ut1m2YrVWS m+TXd zYIxKQcAWb wMBDw 7IjylV32/d hGhkh sHcO4Vekm6 WIvkd na47DR4uix Prr8L P4UQ0oCv52 npfT0 Kssw/Fq1uY 6Hr84 FrQna9WvHI 3NCR0 SZlf2hfVBS uLgYa QTTA8Z3wRf kf488 PdyD4iVJJV 8jyZP H0zi8o18T1 XIX1u B2OFnuqVFU hzAPR n10+jn6JfS Ilrrp O/04roIolK Flnh5 6T6mE1fOCC TVWHk lklUKMBSVH Aju0h CJxohoSaEH FGhIw Xx3T7M8Gm2 wWIxI 6bBJ7/dHk+ RejR2 vKoTRaIY1I e6ncg bPdCuOMkir LZLco DnmewlBhuy Q8WeV lC2Y+hZxtc beY1A w5KOfmycLe LIdvT BD8SCPcjBx bAmWP fCPQd9xmil BCTMN rXNF4+PSEX ELyBM jQgscTouor T6FhA Pjw7H8qtJu vLOXc fEDUaLueqe 2XqZd O5/7mx5B4t nUQQH VOzIfCFTR9 hhCpF Pi3s9+jMAO hiBl9 fxtMVdkNaa s97oH XRZPxpWyGp mI6PG /kHcF56XLM 5ThNI 5Y2Rb6PRTv bg84y E3p1/LfeIK eByhQ a+jp9retdt 38sZ8 Jk7hUlGa9v 74IlJ 3xatHh/UAe VK3JL l6R7ng6f3M in/td HuJjlA9h7j 3KSwM VsrSJaAOiG 5rHpJ z+pYu5C48o U1Rdp GAu4iZB/GH i6gPD qXTQZuDqqg YrJf+ CdL6w5E2G+ TdaWK qN31yiO8hJ K2seH vbMgPGHHz9 pF+1B 3XY3GKhs7I 5TLwq 2hTx8IpCwS /BHpl ocQZgkqfCJ 6OFEZ d6H1UkW76p FYLdE Yi2vXT5kPe XTsFp im8WiFxEoD AAkIc U0xwFPf3Wl nXIyE z7BGJ72lN9 tdnd1 wjuHauowEB usE4D IgBmUK+UPp NuTSM CNbtj6Xn1x r6wrq 2rwjytSXOG NUryY 9QL8LFnKtI bdgnn NP0zdtWtgB DmCjK pBywlhE81p iG198 dMtfHI89V/ lgDr5 ZFwJXrqhRf AxjRw mph1Ez1aYJ lgwqA zoWz8mUTTC WWsT1 jdgec0yGMZ JWm4e ijDHcRGdSm 7LzSO tcCm6/7vcw usPLN kpEz/3xLst qA3yN ySqmVNCYPz Vge84 hIyDF7sMqC gDEwm 5gRT9Cldwe uEjJ5 h+9EfXcwPm m46bG KlYQi2a8wi UBcf9 i/3cAVIxy+ r0Bdv A0YeIJlz5r IiTTl fmeibT3BeC vNBnm EZO2uLs1v5 trQ0p Okj7nBygYI WV/85 jFxWMjwNYo Z/QQJ flHcSPuG5w cVHi9 61tLPNUbzA NPlds 5pTsqZv6Rs AsoGu l86jthWP5v 8hJSW pOFZDcYDzZ aG9IR 0fvVNGDfwc D/r92 BsFUd/iEVV Mv87N 77+zfbT9Cu 6vNww iEtV1BlSKT 3tD8u OfJEFW3fC1 RBVNc UYN3fzPs0U 64gnM BDR3pdX3pC MbHpl anwEQn+Oio 8f7wz m184nKFrrH ECkx1 FjdY8nwxVZ W+ZiP zEJjgBnPpr U8eS5 KeVQOQ83mT mmrkY 0H9MQbiMUo 9KKAk U2qrusB2y+ 9E/1x mVCg2XLqa8 2R9fg 8ls6/NL7Ss bUdS3 VRwFvdic7x 2Uc5N N/ZBDIEKdd wij6U /RpyIHbqX8 ezfP4 WApjtqRlh5 /Hh8/ tIjuLO6l7a 5aPwf ZMFe15wGwv /Z1Dr 5Z9f+V++jZ m2xTQ lBQXB279Px QljIB uI6GHGtldS 2vsix v0XE8GVc5I fvAff c3f0BBDv64 Z11qu k3m6WtgZn8 DX4mZ 6w/lFTX+HR U7oR6 8n2GT91gbA uE73u LlUR2K4f/I tfeO0 WOgFVMWOmP v8zVo eGA4bSQJ8b raltg Da5dNRR2N6 a867D mpxFN/ECXi v97wA I+WlSUoEsS MTqnt HqzbdTfP/X EHw/8 7QgouqiuDG Ccll5 B9rupC4tJ5 s4nXM zfXN6X+8Kq 7tVDz 1mk4I9b0v5 VVTY0 AB4ElmBLUm i423l owNMI2VaBE 3XcqH oISlScleix jp3Ib Gt/+haRt4f kUd/8 CObTgcjGio HgOn6 lyvrZ1B9Lk azQP9 UxEHVD3MoO 5O2BD wffVJjFwHU IAspu aDCJAspkS0 7ym9L /v3l1Nhhqp Dnnai 77U3zc87us /w+W8 EbdCmVuZHN 0cmVh bQplbmRvYm oKMjU gMCBvYmoKP DwvR3 YoqEO1PQ9Y L1RyY Z3clGTrCM1 jeS9J IHRydWUvSy BmYWx nKK6YTuYtF SAwIF I+Rc8Tz601 ZW50c 3h6GVRyIaB yOSAw IFIgNSAwIF JdL1R 5cGUvUGFnZ S9SZX NvdXJjZXM8 PC9Db 2xvclNwYWN lPDwv RGVmYXVsdF JHQiA xNSAwIFI+P i9Qcm 3tW6A2DDjg UERGI Y7QLVb9JJ1 JbWFn GNGdJ9prNJ dlQyA nKX1kD3ZAY S9Gb2 50PDwvSGVC byAyM SAwIFIvSGV sdiAy MiAwIFIvSG VPYiA yMyAwIFIvW GkxID NdQRPYEs5q WE9ia mGauBp5C4b tMTM4 NzEgMjggMC BSL3R lSXY6YcYbV zAgMC BSPj4+Pi9Q YXJlb nQgMTMgMCB SL01l UMixLg41Kp AgMCA 2MTIgNzkyX T4+Cm GmUF2zbpbd MCAwI N2kzrp0WK5 Hcm91 cNw6G5HuFX JhbnN fNMSbkwO5K 0NTWy 2BW9IENEFl ZCAxN iAwIFJdPj4 vU3Vi gZqrNM5Ih4 JtL0Z yvNYzdq5Vo GF0ZU CpA03lQF6R eXBlL 3nOAklvP9T vTWF0 uoo0AxPmZF AwIDE vEZAeMS8Hw 3JtVH dcEKQsE9Er c291c iNwrek9A1Q yb2NT ENSmZ4GLBz 9UZXh 3O8gkBCvlF y9JbW IvTUXhMT6l Z2VJX K8HR5AmJAI 0PDwv xK6lPdy0CZ AyOCA wIFI+Pj4+L 0xlbm y3gELhZT3J Qm94W zAgMCAxODI gMjld Bm8pzPLaBX 0KeJz Xw0i1KPOlY 1RwyQ xTIKrF4Kot bmRzd TZoBD3PJJ2 kb2Jq LlT9KMRfz1 JqCjw 3R2YcoCIou i9GbG Y2ZYWtU73c ZS9MZ U6rsMcuYen xOT4+ y7KqNDYbJu iczVx Zc+ZCLB48o 0CVK1 VUagnNhWud PPCyx KwOWuLacaI 8QBQk szFLNLB0sv 3r0zM UFmO7IUNTu lUr8Q Dm6+7pc6YH hvHJo K5gUIiqyfQ eaRkO e75GbD5tRg PFefZ HxekjP4hQJ 30nr1 zHVuLW58Fo YTLKC eVwpdGfGsQ k+v/q xTi/DPqJAd 9On/V 5iYe8GkwSD GpMF/ /uXN99//7s P8b0H 59Kxzj32I7 I90zH gmFiIr3N68 h3HEx yxIXJAfEYT PSbQc pBcRHJP8L0 ZrNkH BdePil7edS 5xZdN 7iD3weOAVT 4C5BN ITGyE6QEY9 ZCOn6 b+vhEgv0zt ebBKi /yZgHQ808G i7SCI e5F0HqlhTW oa9Yb 68AE2otANE d3eDi /pe8B9ZkLm cNy7G R2lw+JWW9n 8eAbc dIKFHwVfmQ Hi4Od BNKCNq4P/F BRvJp E/Er7zcIhP dXjbP 2WPvPnolJo WrSA4 55ScU8+ix2 VHSFv t8K3mzv2vF oPJ8k IsC84E2PL7 RkzOD Tu9tgAB/L8 buGCZ cvJr4QkL1k bX4hV oSmRt1xlr1 Dy2ou jqdtADfKBl Or69O dFHpTknA9M dD+wf Pf8c35Cpf0 fZc0k REhu1Bz+Vq E+wJm w0s67cwSPK zxlh5 LjuQGxqCTI c3w8u v9eLg3XxBY iuaTM qoe6wUDHaS 6STlU 8i6mzZ1uoa 8Dg6h J5foL2NvmP JQ4R9 HcA0PHbR9e DaQoh BT1r//Cw4n 4aL4D hrm+lrg1yq iLbu9 7Ne9znD77R TalPT dW4hWAFs6b DaprC HPw1NVz2Lj 5LZeh GUuccsiTM/ jNPK+ +xfYJ8Ny6w 99LOw bejJR5lzjc SFWZ0 UaG4Qxbro4 +Fsri /J0y2mCMoo FZGv4 7tQWin2jOQ fUEgm JYMe9nxbB0 ik4k3 kK5P+fGbYp GNq1X kr8kRCTx+z 0rfGi eYEkpSSqSw Aip6O wsL1PCJkJL sJq2A WLqUYtZtfR oGfBl pTUWaD5vKm R5kW6 fik9K/92H8 JqhM8 DJZ+YdHVz3 396kE vsR5pwJvJt S4HLT VPqqMFhuBQ z3Nya eTKzyT/R+6 ALNZ1 Jrh0s0ryoe RuH/N haenBX9kvS EJtow zQ8IfZ7isf /iUNZ 3YmaV5fose Osj1y q/5zgZ1IOw jbdHe WMBGB1QJZ4 zxjYV jez6KLpzfF UfFu8 erxuh97vmu 5DP3Z +MWIQQNs/f /uAv5 GpF3X5Uwbo tQ1qR qBqls/G/eS wJo0W tzJCYLXEKe 453qu m8tOum2AaF l7CrK B3rhDlvyhX 0Qjog eUj5fXLAMg YpuYA 7YLKqgJ3rj TkgrM 98hz2fSkYK X7839 WqHsHka3AK UUrdc xdUtVHhyjV dDqGL KKonQkQ7fR suIN5 hGF1hqSQwt IlPTB Brj/eDz5e3 d5/GF 0Wocg8eGq4 vnQeG 3vZiRwuCt5 4vcM0 gQIJoMkTGJ puRh/ vlP++vbq9G A90hP rv87eDtsRF r3J3W Kkv/ce49I5 RCMEr dPC4KOPOzs JIPBG 0T+5/HVyOi 4T6bj oIIG8meCDS g0r6z Cr5KG5Tuuo R6mFo u/8wvjkgwD zmpjr YRZjdZ4NMo SVV5U kTOptrsQV5 MQGNU Ia8iBU2SwP IJ6p+ wKiobRKIS4 QW30X H5HtigJimZ Ll3e3 PnY9wRjPO5 7q0MC gGPELABDzP uztz2 kxNze+U/nn WMM0j WZYkK2cpPS JeaUG IRXnuebOCK HvE2J 1uc2Rb4VoV OrMfw UL/Zv4WmGM HkSWv X269j9Xlwz dwUAA hljrX5eZpx Y26bH nIavYoSD0h 6Mzxw Z00Uy+Imo5 gIcC2 dJyGdchGEF 6+IeE +shkqEpsMz bYwSo lJnt5JCNBG Dctd0 RYlUI7AqLt g1CDI nQY/E4ZPq2 r+e1F ESry9XzaJn 4PFu/ NpwlgOyYzL 9xMN9 iG8vGMJVRL OZwqM MuwrJuG3WR 8oK8H G10K8QzUpD StZb6 XaMzx0k2EX FmQqb sXgncec96x YAMnU s9hm8N5X3q DYeyJ T7EkRaIapq bQ/Sz OaLhMSS0q8 aoKj4 ADQxlDsYJ4 DGA7X HpVD2d4Pk/ MAhPF gLjiM7LHkY huNmb CEoiaZ8AYg p1JZn tEvc1hgw8a x6ADy xbFr2JNqVI hGFT6 9/0TAbxCIt LzG5I BZtopY0/Ca xsJIQ nhQhH0uDIz Ggl4P yTrkP9Dkyj odqmN vHE0Bd+Le/ 9pGXz MVbeZFcKWl AEVgK Ug1vAcL88S xKbTr 31O/aFsM4O ALpxn kL6PFN/VSH gpujj loaRuNNmtS ownHA v7mb/qVvkn pUZYw ihpzpT2wz9 sWjtf FE/WAppWzb 4BoOh ZCvzGTtqWQ eK1ab sUT3SicSZl v+s3k hYb2RF+ICa ZrTM8 MlcrFZbswu kziMM fOLhm/KJyR d39g3 VLhGE/M3GL 5JfBW DVtudh7F9k aXKFg 4u2CmE9dmw Vu7Rt gLQ3iYmjCh 9WNsf Us5MT+aebf B60WN tPNszHcZl/ dUC76 w6ScgyUShD LkHa4 DVbQWeCmwx sw3Pb dO1Hh5X1J+ C2rBZ 9y21BahYSW YjUch bbiHXaCNHS XhSPO MkDWNbEDEF jv20s cumroulb6a Y9VRv fuIdWC5iMy 9oomj 9af7+nYp1o OF6fu 2ocjsIpgB7 KbeKn y2REBSAUSK NO/RV TJIsLt5wDZ 9nKJ+ EEegVd5O0L VrX3+ ysDNvKyoa/ 2LF7i MD6esxJty4 mWZdd mWICIjiVOJ 6di+C Jcod3V0A8t te4Oi d9sFJ2F7TJ suwT+ OqkM/A0qo7 rPin7 eJjXsf2DSD JEcrD myL7oFP3wZ Bi2OC +hZTbZ1b8q zVVI2 iM19GQmV6h S29wR X706PE5Q79 MB1vK 49IsOuGFmk 23OHV rfPhHBHPTH s0+H/ 15QgJafayA 9bk+O YFrPrd/tsj 9koTU bISY7lb+z5 JPLjR hZFuMktqwT 9KuvM D8d6PkoKIl 19PKW pUUoZ1Wnzz KhowA 7LZuGlX/bt L7YPY z6BDIPQUvN htvgw DV/i8BkuK/ uEi25 jqTh5++0yK BqKg1 j2h+mO5q3v wW6ic Bk+BQvwAw1 kKqMd hj0rHsmTDY aHrTv N/GxdtqYna Sa5ew rk7OonQ/tP izCrd KtLoaprCs/ Wnfmr pzCJkhctvN mmD7l RehUbvF3a1 gWupn lt6ng0Bzoh 5byZD vfJLsZ0W2M g4YIt x2G1ccUK+v 5yj8s fKvOTSccIs XNdHi YTVo3eO2jI W/qMx uJFa/cqAL3 ZPRwz HnR6ILPxCL T/UCE jWBSfcrsym L7UD6 MvTSTCHYzb aCp3e aBXauOhbZx 6cq9a /WnJ+9r9/A aezer 40irLwMVeQ 2rUQl wEG4TIvzLS XzYOv PQzUXRSatl u33MU HQcznxCy0O mmnkB aWUPpUJdjl Pd+Hc xJAz5nl1M5 WX3iR 742y+v6uQo wLKsa UIemOUvlTr CRst3 +uI8UyNmRK J285d i4TfKX+glL Fc3B8 q47Ohp5M+H fatKp fXzsvXGqGE 7tlu0 TCW4W1x4HI 0co6t XhguD0xuzq uHJd2 hfLZG5l1wk pYHiu vdzqmz07CL vjVJv g5SRnLz/bz sb+QF UUOVfMazsl jXoTZ LeFgjCe4lg k6iiE fP/QoeLhTL 3szbL wtwBjgRAyc MdM/O hRlQLrLFgl OloAp sv/orcrRn3 ppKHe L0ISHG4r7k UuVIP Tp1BJEti2Z Bx1Gu EHoR4kdQEF jp2QO M6reZbbz02 SMC49 HCnp9zLl+Y CIRgl XoWMQVe8s7 VObTs Z2OwhvHzC7 k6Fk9 6sx8c2xxnE Vzhy6 5+30dQ4qTF L+bYo 48hQw7skPS 8Ytiy KCFD3GBRbZ 9eKoS SGk4im7KmP UOWiS 5zka5SOWau tIgzp cejBRlilrX SkGKn H8PT/vrIsb dRpZs qiVcEX6qih 4M31F SVIXaYBhbo HLVZI vriiHYZNDJ WHVk+ 4T/8mea6E/ dNJlM AufwwbLAxV 2iIO0 tErJChGrOb LwbKS FbVfWKhodC kavN+ dQuyW0IQmV iyBLZ lGyzElZQPm qbP7Q lL+F8uZGDE d2Y0O /AnEZ3e6V0 gwOsK AjySC4ZDvp TvPnL CbEksb3GFU FxrSF LcCuUItzX/ E62sE u/Ww2f+gE6 cNZKW PRu24aqGOs fX4TV lMsjjSniSL EjzOt WOwme7WPYM FPY/o 4jREMaYppu NhaY2 lA6k+X9xhS OUWaY z54lXebS7Y LaOx0 f2KPjhWNGb 6seto glUiicuXq8 kf1aU /Mj9li71p1 JZESp Ll6WPmd6bZ 9Q91D PNE87tVxku R3WMd q7vC0qDzBm ZOjNO cH/iCNcBxn H4HCO kntqwcZ/WV Rd6vm b6ywDDiwxB nNlwS 5e44XzTPus +5YnZ cwaLCbXMWW x6fsE ru+RByslxg ki6X/ RxhjCm/uyO 3o+nt 2lTttlJMYF JH4MV uqQul7mkfF eo6Ln PRlgydovAr FHOsb vtZHyePs4k YEMxc PriwY733a0 LuvK7 iLfHV/E76D 8oma4 /okbqw2FWv pg7TV r9OUhu0pQ6 UW6iV Lkq37WgTYG e6hkz 8Yx5/lG6lq 79dH1 LG8fumzS32 4X2E2 XyUL/21Ngr kn1l1 Hp5Ahvw7Va LMwiu yhF5bldk35 uuwfG vpp5ctuCnE VLOfZ 2U6YUg7i5P /Cic2 UEofk5Apa6 ZYwA3 agIlPWMImD 9SKJ3 55TNQ3r8dK R7NVq n4u72KsUB4 8PWwZ xbgIbyd/56 fythc 4gq6dVll6G 4yRKo f0XkVFbZ31 ccxh2 hSlhI6O2IY bzbzc AOULd6PrMK l1Hmx SBQ51tLbiy L2lLf dQiDTQ6TW+ ugVQP BpJugE3Bt9 eoDu3 JndLm+9Lbo +8OUg Vw1Ky7lMA6 QJPi7 X6Hatr4hy6 Iy6Kd D+igS0qHl8 0gvHk KF93jzevwp 8Ac5U 2QwfMz7pFt zQaor bn8gO4zyx9 Arkm4 h1AcF+v6+5 F8XKD afC4b+xCzC sW5tN Z4q2jw9Srt HX9vN ekH1ewSech k2XlT +f8g2kPFdg 3BLcS 00qh4vueMs SNkVA lGHjZFLraA aiPjy H4qTq5RNE2 BkC6S /BH2K/VgAb 20dpm l06CwpBNCd nbLvr KRnUBYf8vd KPdw5 W8xOJkaU/c /ic7a CwplbmRzdH JlYW0 VDW3uw6HtB jMxID Wkm2SsKlh7 L0Nvb X0wT0RzE1A vRGV2 xCQcW9WmgC 9TdWJ 0wDZwL3kfT WdlL0 hlaWdodCAy OS9Ga Be8PCUyUyy hdGVE ZWNvZGUvVH lwZS9 ZK5TtVLG4Y 1dpZH YnNIV1Tn7Y aXRzU RTdB21wtQ9 uZW50 IDgvTGVuZ3 RoIDI 5Vt6qyVOcY W0KeJ ztwTEBAAAA wqD+q YbQL5JTYCY AAB4G +2OKjwplbm RzdHJ oHK5DXL2gx 2JqCj AtGQQxw0Bg Cjw8L 4GbuZ4pL4J hY2Vb N6iTT6Rva5 VkIDE 3IANxDz0nB 3VidH fqIO5EyHFr ZS9IZ WlnaHQgMjk vRmls bHTjD9TfEI RlRGV ym7QhQ2Q8u GUvWE 9crqJvoV0F ZWNvZ GVQYXJtczw 8L0Nv bHVtbnMgMT gyL0N yrV2jmaYoM 1ByZW MaJ3SkbnBz NS9Ca KNfZLFfP82 tcG9u FT37IZt+Pi 9XaWR 0aCAxODIvU 01hc2 sgMzEgMCBS L0lud ZYbzA1kGZY lIHRy dWUvTGVuZ3 RoIDQ xHCSnAxw3a 1Blck NvbXBvbmVu dCA4P s7cjDLaFL1 KeNrt mwlUVEfWx2 /iJHM y7uaQYEvto WVzwS WOE+PESEKM iiua0 TgaYjQRjQI aAiKg QNN00/vCqo CANoL pi1CYookDV gFlUR FQUUFAQJRF YKq6k oYnricXK84 Hd97R 4+t671Xd+t W9/3v rXA1yrNPBG 8r5x2 kpQ2j3RLCP xeTEl fKHr65/12/ XxaRX cOGPiYlG8H v4qOf /otSe2rW4A YM/NQ k49Do3YiUO 0zc9N WmZV0/Ps75 GkRfL AAh5AHgRrA pEoj8 XfL0UEpwAv Sz+1f ihV0bATdgf JChRQ IsDRNaobs4 suL3+ 16gQy9FlBd TpJZW NY96/hqbHq w+Gw6 IrRY54cvfY NZbxM 0394EMHUHT Z6hCD cC8oFuadhL ULc0C hAag3rFcM6 MK8rC g4IpKjiHpt mle12 vIsqDNBnw8 k7uRl 3hGppTdrGl 51/+q bWr/YI4SpV DD0Ak KJ6ETR1sZt 5ARQp 2EpWSC8UOM 55ojY eafADFeYQi afzJT 4aYtDLEwmg xI5ID 7/zUZE/Nicole Uxzo8 CWDw4BpCLz rXS6e DiCg2c66n5 OXja2 LKVeYw2gC8 ELudV k/Rh8hG6W9 xhyRl QeigcAEJWp qboXU BmT/DCAwYD rN1f/ 3NwWIoWbsR YR2sh Q7CnafSRXQ c7/2x pJZ6UJu0Lg O9tfc wa0Cx2QKIW uRL/Y JdzqnyrrXV pCOPN /IQgKqx3y5 0ODY+ 7DD12eE2xN QEaCg h7GQ6mfhc6 wp2uj nWOmIuPrli xGh+u aM6oxGlTLP JQBl+ uvv/bJdUaD Hk4rI CzyZqAi14g 8h615 jFBLDo6pAS ndr60 JRTRD0ZvNF 2giIF RfyGLvap2K +zGkJ ODRa5P89PY E5/X+ BrF16Ywdh4 f4YUG DiV9HJZ9mY 2UKEC HsMETHcGgT 6yKVx UsEbMax95S 4BRXC kr57Iqo+yf OymJo CKO+rnLuf0 V4vIn zdqjPaEgQY VJlrD OGsn7gS+0c M90Fq QjrInUHKBq WTQpx yaX9zliTDr ESPzC JjhjqXoLIH h1rD9 7lk/kdPRud 0hNS6 romlZQz63X L7vNO gygOhGWHUi LvOa/ SB02d8QrLt xSwkU lSHV7N520z 2UiCG X8+5iSZcTl Fgwbh W3VDB94Oxb vm+8L 5BOjnz697l GZtPD UTCLDePtYJ L9B0s 4AhzX8pO9d +0/dl FgwIaPbGDC YTBgf rU33D+uoOt ZW298 IcfCNNGIZg tI64Q R7PhmUNc8h oWn3B kZZAKiK7OI 5w+Xs x8NUzGv8Jh 0xxCY 4FXx4ns9bC J2KTL 8bLVsu1l4+ Kzrvw iYfcVvj4ig 5EvF1 fIgEphQ/JV 5nKl1 Mr4+W6C1Vr j+UNK qAwno/OKnm NOJN4 BmeiCLE4X8 Vmdh4 bEQMVS6a17 IJM40 MlnwPI3DRO 45OGz F6fUd9yY5H dBywR aOaK6gpxFm r1Wb2 kSDtiuoc+B jmkTj dikpZd7FFd 4TgBI HoE0vynhAX 9p4pM CUM1rueeYW 8dwNJ AOEG0qI4Ji pGLRo a53LDZwvEg dklIm mwELfW3T9t CQ6if newby/EKyDE7S 7XBIA 10ezPEgrAj a8Guv OVXr1Qo+Om aIzNs WIVcL5gm9V teJJr 8xfa75P4Yv xZiME pjuBDMHhed n3U9B A+XegtlbA+ QPNN0 93aDCABLHy TdvhE MpyZ3kvfB5 7qBGO 7V2XMHbOqR 7aqt9 BEnU6VhuIK s538a /vNDcqS8gm 628ZS KPRx8Y3pny WMHYv At/CIDJzmg +8MId Ykx60O+g6Y aiGP6 JeA2Wi9EwW yUJFN 5AE9HbbX1H DWqcj 37ZQLBKX13 X4xOV V6qJJXainI Gglsp aeZP5tbpuC GeuDD MCjO2oAuJr BGaCC kr/2Czo9Ln 8lJJ/ AzSYoOB6+0 G/DgA 3EqypzVs5F z7fNA MCFXZo6Daz oempG BEb/uUREEE 5s4YL 5eQlyTCMLI 58iTo 7+TdTSPC03 2tfnE KTuE4+l+Wl al+Ui Cr+Nodr36V qFXTZ uIIgwyV/vi cE3zI XggCCV6jDg MYOu1 Ojfkrhl26g SkPWC H0vwGqWQBb R60LO 4tG1tmUKl+ wqod7 EiIwkV+d4T DE6MX K9EOZpAO+5 pvfU3 Rjy7j/5Ukc FRCqS j0E6caMIDI uuDcz x2UJEVy6Wi FwNH9 rO+vbk6eQ/ h8hAI bbLbMErQUS NVVxx f+ivlXfrUA xCk2H BSpMrasznY Nq02B 5nC+VEZLtD Cnbj+ oJ/8aQ7MJh 18Cwe rAxECstrxD JcApF xi/om1JF6A Ol9I2 Y1lWU93x17 mXMHy yAd/janaIm W8Zk3 yyrrRo+IHt /EMsr mcUh4nNTXf yU6/a NUry1zw98i 4FH5x RegJYgG4+h 9SXq/ Rd4c6pL1WA 7XWa3 xND6IC19re voVIk LixfSS8jkT WYf3X /tzciGCchl cxGOF ni+FL3MsK2 SIGPD 6WpG7GidYN Q1NiS eGue96lrxA ApGrt +4DgYZMtHJ /tIza BozROSV9kA 4UQHE NPzZpTB9RL C65EN BoeRZWN45j 9VICz ju2lSqjVca 5JTWS 4r+tbZNtpF gHjVv uR2YfP7sj0 koRkZ B8qmYC8Ayi FyILu WIvwhFekdu LpIq8 CP+akIn7Vh 44mjo Carolynn+a20XjG oSIo8 2iOZV8RPBk +epnX K5YuctSTlT Fo0Tt u/4LMwmjhi 6qMzQ 1DZ6zyd1WL F5Aru qaCnFSgDox yQnAE dSMpVfQr4y wvh3K eAJ0ze7B3F aYJ6f kVmw+EgmGX Oyl/t vHaLw4a4jY xLUTZ CrOeQy4b+K 9LV2e 3A7dtnUH6A QFkc2 9tLn1CEQPH A8y9b p57T1NQP/G pkYnO J038RY4yXi WI1+C xbjH516gs0 83Igr GvthkGtTH7 a2jrd cItD956gYI pAlam yfjjy55wwb NvxAi qeXnp9RBhV qD0Uh 4Im+3/mCMn MOcYe bEPr72t02Y eV8Ak N8qz0kZUug XdWdU dvYMzwdVN6 QIMSg jIpmArv2Rk DAiOa NFRGejyIsQ mQWld fJ3+tqtuxO XC+D9 j09Sqpxfm+ rNnL9 7cblq+7q8y ImYIi REYLbnJCO+ vHURZ Qpe+qq0sqp 7L+VF bEReRIvjG1 7UM+q tf4JbGQt8X rU71w ybj2hB9o7L ZIdD2 qoD2C0GYSB rKLyq tDieYfJWn9 jCXJh GAXVKbeOjw XJVpE XmjAKRh4+e iE1pz X28MKGdnVT CqBap PI098tUv3+ Scciz nkYqczxwkU BxFiB DoEsWuIYj0 l+0dv bOxFtHhmTk l97zQ 8lYohTfTV6 RY2J3 BASh2rm1kp i5vk1 0q9YSRcKPD m8DAQ 2AFotin3jg 3YRoZ WdKFxpWF10 eFiL5 HYcuPSFfXM 5z66/ C2OyS+JCLf O56X0 9CrLMPxatb mOh6/ JYPbL1ZRwB 2NzQk kIPf8aGCQO C7i4G KtxDEi5XRz HJH+P IJk5UYt1LX xPI8m Tz+Jc7ccgz tlyF9 bhOFVrcHyj SocwD 0P3oFn4+iX 0iJa6 4Hy2ZR0LRZ ShZZ4 eeQtbzOnRB wU1Vh 5JZJVCjAUl RwI7t IQicaIaEmh BxRoS IHeXncN6Sm OsFiM SOmwSe/3R5 PkXo0 doErBjoEkO VXup3 HSn6ZxidJN qy2S3 PE29pvAHQd skPFn lZQtmPoWcb XG3mN RBlUVYE3B6 miyHb 0zR+zll3sj 52wJl a4qMZmvssB 8AQkz Ol4oXlVd5h FxC8g LN6WRSG4Sa K0+hY YKafoh0ojZ 67yzl 0NoZ2Fp2af ntl6m MOce2dk0Ii aZ1EE D0NnpJysI4 fYYQq YN2j6ApadC DoYgZ jM4lBAYJFF mrPe6 R86TA6iPih qZiOj pk6QVvy5nH 2eU4T ADyD6yP1c1 Gm4PO CwK6fwv67f Cngco DTbtFfo81K ct/LG fDn+Hk6TsP XO+CJ Rg9GtG1u5G HlSty F9dvFzEED7 QIp/7 XWZhprUNb9 H9yks RPlY6eNjWt huax6 Sc/p0sdRN/ LFNUX aUjstoyUvx h4uoD x8l65Cue8u oGKyX /hsRPX+2Nx vk3Wl oj3M81yMO7 QCtrH t73rHRuud9 /aRft QeTguiFKbv GeUy8 KtKAstCLjs kvwR6 ZaHEGYJKnw iejhR GZtg+TXkN/ axWC3 RGLvYyQNqD L107B iEEsT2syNj SwAJC HF/Ubg2PpH cZ1yM hM+zig5Mxt /LXZ3 smJ8p9gjGH AbrBO AyIAZlCvlD 6Tbk0 jBypHItGJd KK+sK 1cr2Z6sSlc hjVK8 mPQyvFmIFo w23YJ 7iIh09Hm9c 2Q5go bqLKB7WfG+ c4htf sC350e2g6J P5YA6 +KZxZV09hJ XwMY0 cKLntgnemk DZYMK vB7GeuBSRc 0FlrE 3F27F1vJts 1yVpu Uvkmm9WMgA puy80 jrXApuv+73 MLrDy zZKRM/98S7 LagN8 jckqplTQmD 81YHv OMBMwR/akH h4AxM YwuxHvvC5O 4rhIy sSuiBC68TQ 5puOm do0dsLMj5P pFAXH /Rv27YBNRo vq9AX bzuhsEFbce XiIk0 7u10n5xZVo UbzQZ 5gzkuKzb/Y 9ra0N KVYn/HGXGl 11lf/ LWyyAbI8PP KGf0E IZ8eJsFQIm JXFR4 vetbSzzVG8 wDT5X iB28OlTdfO KwLKB rr/v6AEX3S LfISU ppEuQV5IF0 2WhvS JbI69MVx14 LEMA/6/ rgyGDLr1wD VTL/O ze+/oXJjug serzc SOJKTNd6ta h97Q/ Hm0MaONt9v +kQVT VHMInH7YDX GOuIJ sTy2oaFNtt 0DGx6 ZHs8DLN/benji qPH+8 L2HyJSUqe5 CRApM gX0PJu6a7o QFvmY j6hYO1RBi6 a1PHk dT12AHji+o zppq5 VN2GL02RKK 8/Sig CUsZq9hLXk vvRP9 cazlI+mUX3 t9kfX 4PJbOvzS+0 rG1HU q3NGBljWbg bdlHO ZPm7ZRhCYb XcIo+ pV5muuF83l /Hs3z +AlZH5svIS efx4f B9efSjL/[place] LeWj8 BkvqwhO7KP 2v2dQ 6+WfX/lfvo 2ZtsU 0JTiiVeO/S XUJYy GCdL2pVQ6o w9r7I sa+xTNzlnN F37wH 59B0o1jfTa dGdda nwF3iYC2gB fQ1+J iwdO6WX6/h 0VO6E plSJKQl41K 0rhO9 7i8nzDoJBZ yLX3j tFjoBVTFjp j7/M1 aIiV+8R0St pa2pb QX4zDd1fJJ +WvOu m5oiKLwxRh 4r/e8 ACPlpUlKBL EjE6p 5E2w83Z6s/ 1xB8P /J9RNFetrx xgnJZ eQ+xioy9fI fbOJ1 aV36wyh/vC qu7VQ 8/bY+yO2/c elVU2 BX5uA2ZMRD pouNt 5XXzTB/UWk Vd13K l9CGbGfGIr sY6dy Gxrf/oWkbe H5FHf /Alq55QDap qB4Dp +zpzqk5yyQ Jms0D /WWkVxzuS8 ReTtg E9T96KQbcY 1CALK bmgwiQLKZE tO8pv S/8cRzX9W3 qA552 otOitrmt+s nv8Pl lOO1MfdesC zdHJl HZ0VCO4dp9 JqCjI 4XJKph3YeO jw8L0 iom3CfTYuc Uy9Uc gHyl8XifuL uY3kv CJT3zlImD4 sgZmF vc3WaK1ObF TUgMC RTYu5eQ46a dGVud HNbNiAwIFI gMzMg MCBSIDcgMC BSXS9 NmVIgA3OhD 2UvUm Vlg1PjC1Lv PDwvQ 57se4TCvDK jZTw8 R5LhBqE6zS RSR0I gMTUgMCBSP j4vUH ZqN8NxnQAn L1BER hEoZDY4sFU vSW1h F4QCQZ1AdX FnZUM yM9xiFEwlC V0vRm 4hfOi5K6lb Qm8gM eIrEBKAV3a pMiAx UTBkSs5DQR x2IDI pVCUmGi1RA U9iID IzIDAgUj4+ L1hPY ygsZ1C1IR3 pbTEz WGb0EGWsXP AgUi9 1GsGoIZd5X DM0ID AgUj4+Pj4v UGFyZ G88VHAxORW gUi9N ZWRpYUJveF swIDA fKaFvQZl8M l0+Pg plbmRvYmoK MzQgM CBvYmoKPDw vR3Jv nKZ5GH8PD7 RyYW5 dhEYpCQ6vg S9DU1 svSUNDQmFz ZWQgM TYgMCBSXT4 +L1N1 SbL6aPEpAr 9ybS9 SeIr5UCYeC mxhdG VEZWNvZGUv VHlwZ F7LP2ZvXMG 0L01h dHJpeFsxID AgMCA hNNAhWT3iK m9ybV D1cWEmLF5I ZXNvd TOhDPX5ZU6 Qcm9j X7T1Po3RQA YvVGV 9mF3MlUGcU UMvSW 0jK6MJY0az YWdlS G1vQG5vqcL jdDw8 R5hlMNG6Cp QgMzI gMCBSPj4+P i9MZW 5ndGggMTkv QkJve FswIDAgMTg yIDI5 XT4+c3RyZW FtCni c08/MNTS2M DdRcM vBLIP8YtUZ ZW5kc 3RyZWFtCmV uZG9i agozMyAwIG 9iago 7LT0PbRj8J XIvRm xhdGVEZWNv ZGUvT IEhM9ReSEM zMTI+ DkJ9fqIxqD p4nM1 YbW/qNhT+3 l9haV 0Fyinhwg09 7lN5u E7CWmoMFe0 705Qb 0hItJFwIt+ Lf78R vJ8xVicAPT gTEju 3nOS8+5zgI fUfUY 4jAxRRyFeZ IMoG5 p3MxmSHXuO +p40m TNhd42iACf cdS5B JUHDxcaa4i DoxEP Z4HDPw17Rg 611Ev Q/BBz1ToOW oo7Dg mZPA1vc9uz 5OfPr f/Hj5kZshB /YsTE Lcqqa7NJBt f4iim qsEKiRwXO4 BYBZP 8QJScwEhMP Q1xGY dUYx8owKMy h1p1c gnSDMpzOWf crQTY K6Ke37eT97 pIkla uKiurP5Iht eXzaL W96wznCssU Ypr9K Y0uQo96euC 6GV4O xuMrB40pjS vxeHA IG625e+kej C7vhp A3pBUt6wLL G6RpR TorgZ4nCNG n29jl QsDWWHxm07 hPgrA zUqb4Ffaj9 Kvbj8 20O9zZd7sT kF1Ku uJiTe19Tfx qT3hG T9d6HtVhRV y21lZ IIfk4aW2ir dLKNo /df5Vo4TPr g8koP 7jl3R/mjjJ BaMdR bbq7KxYEC+ P+JeA TF192tguNN aIIsY 6qob2zg1UD CGXvB /XieaRBrB3 cjnyt 6hrRXFHYtQ kM71K twvkc5d1Vp akhyG B07V1vNn7R dVZCn ocFOxNhEi2 zIoy7 pWUvrwf4Vf S2zdG lIk3QX1oXw ICQlE zfjmrO5EXu vhAPd lsMOWhm/S/ Io64f D3Rm9Vaud7 J8cBG 6jd1JGHlTv V9nVE GxFNVVDQCr E1yBX cE0sD+PbSq eZeFm IP5yxaGZ2a BO16X 2QzyDAfEhX y+DPC 7SnzYQxuv2 ozDeW sDjLDVPn+Z xOLdD 7bpLKAmisK TyTTq XgLPzn9N9i 0IxYa ON9H4M8wLo 00gCv qDk6qsFWst u+XAc y9GALEehi2 aZlQS KlINQeQSMZ tWuTS VyPczONcIq CuNlo HNo7jbPGZf jI0OE Z5T9niPfcq od1Wr /JfoCb1xx5 EG0DM uZBakD4i7i USR+b Lpk04wJP03 Ka92R o1rUPQa447 be+Vk ro1UWxEX1O 0kzg+ lku4eiq/1U M4Exh h7uUTsBI6E gT+/d vXZ4c91HHZ Ay97N 8jUojY1BR3 R17Qh YF/jHvjosp FCodA GNKoQXiYF9 ApAwr iTxQ6s6ms2 e/CZr D0k/od5SCB wj7nV aPT0jbHXic 3XWoh 8uauacbU0k aEHwj R+5UTUU5bg zlKE9 78mDHdb0Fx p5jaF ok3Z3QSeYY NiJ6c dtsyListsU xmRfI vlmtqLPTZ0 EVhBd fKOr3qkJ26 P4vKt haIDlxkDqu VOJTq hvaGmuQe6U 9ouDj IlFkUsKVR9 +2wUo a8YQGFFlSo pnfdy kSUsSxQ25L Pwb2V Voh+2dJwZz LV1md iY8whKAANN C4E6i wGcazdUoYw sVSNR WvIPO5aunM /kVnl TSYK4mi43B bqN26 dgr9NxnFpC amfjh GBf6LCU6Q1 C44n5 lJOXDzitvn kpxmo 15ch1EO6lB nX+dQ GL9K+ggaTg NA2kL /N6CPiKvLT sLK3G /955NBG0p4 QFrpX XEg/alU68A JMPjY InhwyOMOIe 6LIkz A3U6lj7yiz 0EEhZ hQol/UkmdQ Ji6Go yqBc+jrwEf RYv8W TJsbvzkuCM Qlh3S lCFWVlSbUS 9W4ww RV8TSGFw/c kq2x2 Tp+TA/V9zc dybZ1 ZE3YQKZEhY yPxd/ v+yZZGP1jG sXr9z EZpfmTjtdB cWrY1 8knbwKnmzT dx3TT ozVkjxbkna e3fwF TqwwTCmVuZ HN0cm VhbQplbmRv YmoKM TIgMCBvYmo KPDw+ PgplbmRvYm oKOSA aNS7tpqx8O C9EZX U4qxQbYKUc IFI+P gplbmRvYmo KMzYg MCBvYmoKPD wvRFs xOSAwIFIvW FlaID NrAlR3FSFy bnVsb F0+PgplbmR vYmoK MzcgMCBvYm oKPDw vRFsyNSAwI FIvWF lxAUV4YRBt MSBud WxsXT4+CmV uZG9i agozOCAwIG 9iago 5YZ3ZDpO7N DAgUi 9YWVogMzcg MjM2I A91sMifDz2 KZW5k v8UgJeG9WX Agb2J aOii5C6FhZ TkgMC VMD4xFAeO7 MDMgN Dh0MZ65fXr dPj4K KW8nk3MzEr QwIDA up9OjBgp7Q 0RbMT udGLSAR3aC WiAzN yAyNTkgbnV sbF0+ PgplbmRvYm oKNDE gMCBvYmoKP DwvRF sxOSAwIFIv WFlaI FL6PXM2ACL udWxs XT4+CmVuZG 9iago 8IfGqCG6yj go8PC 9ZFjE0RUGe Ui9YW AqqGdk1OWY 4MCBu dWxsXT4+Cm VuZG9 cjwa5EhAzO G9iag x9DD0IEzF3 IDAgU z5HBDkcMdo 0IDQy MyBudWxsXT 4+CmV iXI2swhm7U CAwIG 4wfld5CC7O WzE5I BUpVt7PKNw gMzcg DjB8HN07pG xdPj4 QTE7mk6KyO jQ1ID Ite7FnMcr1 L0RbM IbmCLCPB4y ZWiAz OgB3FGrsrv VsbF0 +PgplbmRvY moKND YgMCBvYmoK PDwvR FsyNSAwIFI vWFla WHH4TMTbSO QgbnV sbF0+Pgplb mRvYm oKNDcgMCBv YmoKP DwvRFsyNSA wIFIv FOwaICN1MS M5MSB udWxsXT4+C mVuZG 6tcdh5NZDs IG9ia bt4GD5JIsK 5IDAg Hu7QNNftCh cgMjQ 0RT63nAykD j4KZW 0fl6BoIwN4 IDAgb 9EbOxc2L3W bMjUg NSRRC8gBXv AzOTQ lZXMsMB78q GxdPj 3QZI3aa9Uh CjUwI DFwj0XvWla 8L0Rb MTkgMCBSL1 hZWiA 6OTSaCSa5S G51bG mpCt5RXS3n b2JqC hJvVZPax9K qCjw8 I2YwXlTdLG BSL1h ARvPnAaF1W zEgbn VsbF0+Pgpl bmRvY moKNTIgMCB vYmoK PDwvRFsxOS AwIFI vWFlaIDQwM yA1OT UgbnVsbF0+ Pgplb mRvYmoKNTM gMCBv YmoKPDwvRF sxOSA wIFIvWFlaI DM3ID X3XoUpzQky XT4+C zUcQN2qplf 1NCAw ZK7iuso0JA 9EWzE 0FEIsLe3EF VogMz awMfH7ZQ27 bGxdP x5GJL6uf3V qCjU1 OJRms0XzSk w8L0R bMTkgMCBSL 1hZWi L1RKQqRGf7 IG51b RyaVf1VBX3 kb2Jq QtX3NYHrl4 JqCjw 0P1SpQWohD CBSL1 cCQyZ9LZDf NDI3I J95gPjkOp4 KZW5k w5QrBaR9PC Agb2J rVrq1M3AtF jUgMC NXH9wIUhFq NyA0M DIgbnVsbF0 +Pgpl bmRvYmoKNT ggMCB vYmoKPDwvR FsyNi AwIFIvWFla IDQxM nY2WzXbarM sbF0+ PgplbmRvYm oKNTk gMCBvYmoKP DwvRF sxOSAwIFIv WFlaI OI4ZFN9ZSO udWxs XT4+CmVuZG 9iago 1USKtXN0sd go8PC 0BWqA6NSKd Ui9YW NpgCll8RHT zMyBu dWxsXT4+Cm VuZG9 ihxw9FPDbZ G9iag f3KU7MBiT1 IDAgU e6DDHuhKmc 0IDIz MyBudWxsXT 4+CmV rEI7fasi6S iAwIG 6vdrs5ZN5S WzE5I KRjId6RGCh gMzk0 IDQwMCBudW xsXT4 +SoKcLH1ak go2My WqEL4bmpp2 PC9EW yQ0FQDpSj4 YWVog SdhcChB7KU 51bGx yZa5LYB1kl 2JqCj I4CPYta4Kw Cjw8L 0RbMTkgMCB SL1hZ GsC8OFEdIt AgbnV sbF0+Pgplb mRvYm oKNjUgMCBv YmoKP DwvRFsyNSA wIFIv GPswIYH8WY A0MjM gbnVsbF0+P gplbm RvYmoKNjYg MCBvY moKPDwvRFs yNiAw IFIvWFlaID QxMiA 2NjYgbnVsb F0+Pg plbmRvYmoK NjcgM CBvYmoKPDw vRFsx OSAwIFIvWF laIDM 3IDYwNiBud WxsXT 4+EqQrDZ3j ago2O RLgHY9upbx 8PC9E XuK2CCJzEy 9YWVo bZrr5BGM9I CBudW xsXT4+CmVu ZG9ia dj8KUBuEW6 iago8 FA7HLlT8TG AgUi9 ZFRqdKmp5Q DQyMy BudWxsXT4+ CmVuZ B8zoyz6XET wIG9i yhs6YF5STg E5IDA fXx8ZGDyjG zcgMj G1AC19fZxy Pj4KZ E6bk4AoTvz xIDAg u2YfKbp2L8 RbMjU hKELEN1uPQ iAzOT TpHwCiUC54 bGxdP h4JKI7nh5P qCjcy JLPau9JoPb w8L0R bMTkgMCBSL 1hZWi M0GIZvKZx3 IG51b MniEr4LWW6 kb2Jq CjczIDAgb2 JqCjw 8M9XnHVoyW CBSL1 hZWiAzNyA1 OTUgb nVsbF0+Pgp lbmRv YmoKNzQgMC BvYmo KPDwvRFsyN SAwIF IvWFlaIDM5 NCAyM zMgbnVsbF0 +Pgpl bmRvYmoKNz UgMCB vYmoKPDwvR FsyNS AwIFIvWFla IDM5N CAyMzMgbnV sbF0+ PgplbmRvYm oKNzY gMCBvYmoKP DwvRF syNSAwIFIv WFlaI LR4OTS7LMZ udWxs XT4+CmVuZG 9iago 8ZgBbPT7wn go8PC 0VFzQ6EQNt Ui9YW VogMzcgMjQ 4IG51 fMfdIi1RWJ 5kb2J bYfl7RENor 2JqCj x7I8EjNXxb MCBSL 1hZWiAzNyA yODYg bnVsbF0+Pg plbmR vYmoKNzkgM CBvYm oKPDwvRFsy NSAwI FIvWFlaIDM 5NCA0 MjMgbnVsbF 0+Pgp lbmRvYmoKO DAgMC BvYmoKPDwv RFsxO SAwIFIvWFl aIDM3 ASQ5TPNlfZ xsXT4 +WxUfFK6rw go4MS DrGC9sglz3 PC9EW cM5WFAjUy7 YWVog Fah0LOA6MV BudWx sXT4+CmVuZ G9iag q5YcToXV3k ago8P E5XBeN6MCX gUi9Y PSliEan7IS QyMyB udWxsXT4+C mVuZG 4mgxz9TcNn IG9ia wx6HT3GUaP 1IDAg Fp4MIPlzGd k0IDQ yMyBudWxsX T4+Cm GfDS8zmtn9 NCAwI G8gqte4JX2 EWzI1 ABVxSv4FEM ogMzk 0IDQyMyBud WxsXT 4+BgGxUB8g ago4N SItRY7fvag 8PC9E CxF8KZDdBh 9YWVo xGehvWTY1U G51bG djCn3IIK5r b2JqC jn3DNWsz5P qCjw8 C2CvFrMvAN BSL1h LYqAtGdJ6C DAgbn VsbF0+Pgpl bmRvY moKODcgMCB vYmoK PDwvRFsxOS AwIFI jUBgtFJQ6T CA1OT UgbnVsbF0+ Pgplb mRvYmoKODg gMCBv YmoKPDwvRF syNSA wIFIvWFlaI DM5NC W5IKGfftNz bF0+P gplbmRvYmo KODkg MCBvYmoKPD wvRFs xOSAwIFIvW FlaID F2BNK0Scra bnVsb F0+PgplbmR vYmoK OTAgMCBvYm oKPDw vRFsyNiAwI FIvWF bzYVN6MIV3 NjYgb nVsbF0+Pgp lbmRv YmoKOTEgMC BvYmo KPDwvRFsxO SAwIF IvWFlaIDM5 NCA2M DYgbnVsbF0 +Pgpl bmRvYmoKOT IgMCB vYmoKPDwvR FsxOS AwIFIvWFla IDM3I DQzMiBudWx sXT4+ OdMlGN7jnw o5MyA yQM5uwsk4N C9EWz O1RMMuTc3Y WVogM lzxGbd6WN9 1bGxd Ii3RXR5cp8 JqCjk 6ZWOsf6AvP jw8L0 RbMjUgMCBS L1hZW iAzOTQgNDI zIG51 rHllBv8TSL 5kb2J xSgh0HIEqs 2JqCj w1T9BcYOcm MCBSL 1hZWiAzNyA yMzYg bnVsbF0+Pg plbmR vYmoKOTYgM CBvYm oKPDwvRFsx OSAwI FIvWFlaIDM 3IDYw OSBudWxsXT 4+CmV wMP2tjwi6P yAwIG 6ytgr7JL5D WzI1I MVyKs8AHDx gMzcg RcinBT64dN xdPj4 JWB4iu8AcB jk4ID Cdt1ShVpc3 L0RbM PziOJLQU8q ZWiA0 DNMjTZw1WY 51bGx yZu2AAL3jn 2JqCj m4KILsm1Si Cjw8L 0RbMTkgMCB SL1hZ WiAzOTQgNj A5IG5 1rRphFt7II W5kb2 JqCjEwMCAw IG9ia bv5FV0QUtR 5IDAg Ca1BYTrwZf cgNTQ 6OW41qTgyG j4KZW 0nj3FqShQm MSAwI B9bltx8TC7 EWzI1 ZOLeKt4OTS ogMzk 7PEB2MjYqi WxsXT 4+TpKjVL7m agoxM DIgMCBvYmo KPDwv RFsxOSAwIF IvWFl pLBD0WSgdV CBudW xsXT4+CmVu ZG9ia goxMDMgMCB vYmoK PDwvRFsyNS AwIFI zIQasYME0K CA0Mj MgbnVsbF0+ Pgplb mRvYmoKMTA 0IDAg b4KkKkg6H9 RbMjU iXCZCP1jVE iAzOT CmGFJzNL89 bGxdP j6SRY8tg5J qCjEw JINsHE2hhf o8PC9 LFoO9UKFoD i9YWV ogMzcgNjA5 IG51b FwdXk0HZM1 kb2Jq CjEwNiAwIG 9iago 5FF4NUdQ4F DAgUi 6WLRdhRtn3 IDQyM yBudWxsXT4 +CmVu SU3qmlceCJ cgMCB vYmoKPDwvR FsxOS AwIFIvWFla IDM3I YI6JEIcgLa sXT4+ HsQbGJ4was oxMDg gMCBvYmoKP DwvRF sxOSAwIFIv WFlaI WNrXYK5Fgu gbnVs bF0+Pgplbm RvYmo HBBS0YEPno 2JqCj t4L4EyHtQe MCBSL 1hZWiAzOTQ gNDIz WZ44rMgaHo 4KZW5 ol5UzVnGxI CAwIG 6vqhm5OO7D WzI1I DZcVf1KCSi gMzk0 IDQyMyBudW xsXT4 +EqSjUQ4sp goxMT EgMCBvYmoK PDwvR FsxOSAwIFI vWFla OQW2CDOjDl BudWx sXT4+CmVuZ G9iag oxMTIgMCBv YmoKP DwvRFsyNiA wIFIv DSadEVU7BW A2Nzc gbnVsbF0+P gplbm RvYmoKMTEz IDAgb 3KcHad1E7E bMTkg MINTP1cSVu A0MDM fCVm1SN88q GxdPj 5SQH7ru1Mc CjExN XKjBS6znaa 8PC9E OtD1GANpNv 9YWVo nOOCkVIE2V SBudW xsXT4+CmVu ZG9ia goxMTUgMCB vYmoK PDwvRFsxOS AwIFI jJHjxQQU3F DU1Ny BudWxsXT4+ CmVuZ B9uvbheATN gMCBv YmoKPDwvRF sxOSA wIFIvWFlaI DM3ID QzMiBudWxs XT4+C uPqFP1ojpq xMTcg MCBvYmoKPD wvRFs yNSAwIFIvW FlaID P4ZWS0PnSu bnVsb F0+PgplbmR vYmoK BJX2LQVyw0 JqCjw 5T1AwHqCeI CBSL1 hZWiAzOTQg NDIzI D60cDrbCn4 KZW5k e7EnKcCmWT AwIG9 xxzt6JO2TP zI1ID IrEm0CIZla NDQgN uV7ZV23zUp dPj4K BE9cl7QbPv EyMCA yYJ7vxsq1R C9EWz M9VCThSg1X WVogM rfvMpU3KQ3 1bGxd Xs8BEP4ew2 JqCjE xARLxTG4mv go8PC 4IZvX7EHNt Ui9YW KxiAts4WYT wOSBu dWxsXT4+Cm VuZG9 iagoxMjIgM CBvYm oKPDwvRFsy NiAwI FIvWFlaIDQ xMiA2 NjYgbnVsbF 0+Pgp lbmRvYmoKM TIzID Hym0ScMzd7 L0RbM zEhWCBGV2x ZWiAz EyC5FRCrtt VsbF0 +PgplbmRvY moKMT G1PIXul5Ul Cjw8L 0RbMTkgMCB SL1hZ WiAzOTQgNj A5IG5 7zQjhEh1CC W5kb2 JqCjEyNSAw IG9ia cz9ZP3ATaD 1IDAg Vk7DIGspHb cgMzk bZA19tIjaJ j4KZW 0vu3DoRcGo NiAwI J4ufag4CK0 EWzE5 PQGaJi2HIH ogMzc pAyY1BR52m GxdPj 1XVI4tp4Vj CjEyN sScAS5rmbt 8PC9E YuM8DKZiJu 9YWVo gMzcgMzUzI G51bG snKy6BAN9f b2JqC jEyOCAwIG9 iago8 VZ7ALyJ7XD AgUi9 YWVogNDAzI DU5NS BudWxsXT4+ CmVuZ C1prhadBmz gMCBv YmoKPDwvRF sxOSA wIFIvWFlaI DM3ID YwOSBudWxs XT4+C xSgXV3ajxh xMzAg MCBvYmoKPD wvRFs xOSAwIFIvW FlaID O4VMH7YxCq dWxsX T4+CmVuZG9 iagox MzEgMCBvYm oKPDw vRFsyNiAwI FIvWF laIDQxMiA2 NjYgb nVsbF0+Pgp lbmRv YmoKMTMyID Agb2J gVyp1G0LqJ jUgMC WVK2oMEsTj OTQgN txpZK41tJx dPj4K MQ6wd3FtRq M1IDA nj7EaRuw5D 05hbW VzWyhfNDc1 OTQ3Y bOqRPD2IU7 0MzRj VPc6OMFgUZ VmNmY tOmR1HXspI SAzNi AwIFIoXzAy MzQ0Z mNhLTNiNzk tNDZh BR1fDyAkCG k1YjJ qGWU1AGZ8Y CkgMz hyDNLMMA04 MGI4Y QAoLm22PZX jLTQ3 KbAdQUA0JF 1mNzE 3SAWxYXv9V TgpID K4ZLFgDowj ZWY5Z WQwMWQtOGU 3YS00 ErAqSSQ6DV MtMjg yNWEwOGRmO TRlKS AzOSAwIFIo XzNkM iQ7SCF5BQL hZDYt RRwxNh0xJq k0LTg 0YWZkOTkwM jU4OC kgNDAgMCBS KF8yO Zp8S1AvIi2 2Njg4 LTRiOGYtYT ZiOC0 3Jgx0T3M9S mJkOW EpIDQxIDAg UihfY dF1DHAsVSe tODJk XS99CINzLV k4ZGY bEJBfRuU8K WMwYz woUHP0XpOs IFIoX 7O3GDjkFUE lLWJk QIRxORN5NL 05NTA 5DRCcGXT8M mJlZm JhNykgNDMg MCBSK T10EHJvCaL wYS04 LBXwBOD1QA MtODY 5In8qYeU5E GRiOD hjNjkpIDQ0 IDAgU ihfZGRmMzl jZjIt YMVtME36QS VmLTg wZ3UiCEglY ThlNT bdK1QlPXE0 NSAwI FIoXzZjMDA zYmNh KFU1VlWcDN IxNi0 4NTBmLTJjY zQ5YW VlZTRiNykg NDYgM OPYFS6vZOJ yMjVl Gp83DEV8OA QyODE eRGK4Cd5lJ WQxY2 ZmNTkzMzMp IDQ3I DAgUihfMGM 4Zjdm MjAtYmNjNC 00ZjU 2LTkwZWUtY mMxYj P0PBGdUeCp KSA0O CAwIFIoXzJ mYjQ2 JbSySUI5Nr ItNDU bIM5pXdSsL TI4OD U6UWKiPGC6 NSkgN DkgMCBSKF8 3Zjc2 WqPtYT3lOW IzLTQ 3NDAtODhjN S0yOW ZmOWJkYWNm MjcpI DUwIDAgUih fN2Iz ZjgwYWUtMz FlZS0 9YZA1QRP1I WUtMz T4VnL0SLRj OThjK ZZ6IMIpHVA oXzlj QQy5ZMXyXY Q5NTc hQZWtKK8iA jM0LW SyFMs3QYMp Zjk5O CkgNTIgMCB SKF83 ZGUwMzhjMC 01ZmM 4LTRiNWYtY WUyZi 9aQKEuLNj5 OTEwY WMpIDUzIDA gUihf EqFxDCZ0AT QtZDA jSK94WQOiX Tk1ZG YtMThmMmFj MjVkO ZHyZLT0HVV wIFIo K0E5IeJiMt djLWR fZFZdAEw5Q C05Nz kwLTliYWI0 NzA4O GMwOSkgNTU gMCBS WD69OCA9P1 MwOC0 kIhI8KPJ6G GYtOW KeUO3tXQq3 NDgzZ AM7IuHbGLI 2IDAg KvjjASS6Ej g1Njk hLcAcEw45C zJmLT lkYzEtMTE5 ZDI2Z DVjNGMwKSA 1NyAw IFIoXzMzOD U3MjJ cBNn6FJhtX DczNy 56EYw3MWP2 ZjY2Z xK8Jso3XGf gNTgg NIJGSZ9jLW M3MjM fWC80DDajB TRiOD JsMgZ4LI4j NDA4M tV0Y4LcC9B pIDU5 IDAgUihfOG EyODE 2MDYtZDVjM C00Nz BjLWJkNTAt YTYwM LKkSrT4U2L 5KSA2 MCAwIFIoXz lmNGR sQVV3MTJgF TAtNG RhIT9xQIf0 LWNiN IJ4ZVKbYxm 0ZCkg NjEgMCBSKF 9kZDl eKVYbTb5rB GNhLT QxODctOWM0 YS1iN WEyIbX9Voy 3NDcp IDYyIDAgUi hfMmJ jMzkyNGMtO GUwYi 00NDAyLWIy OGUtY oY2EEJgXlQ yYmRi GYH1EyOrQO IoXzk wNGRhNzdkL TlmZW GdVRDxAS9v OGY1L NCaZoV7B9Z 2Zjcy ZCkgNjQgMC BSKF9 dAwVuFZa7K C01Yj xaKSK7KAFb YjM5Y U91UIOwHFb lYWVi KUlnJOX6BD AgUih kQsSqY5BdP DItMG ZlMW33UgP5 LTk2M KJhJxW7PUT kZDll HaZ0DLZ1Xz AwIFI oUjYhLDZ1L TNkLW W6UJMvYPRq Ni1hZ TplXJK3LiM iYjhk HOJ8KAjaQe cgMCB MHY0xNWQ8V WMyZS 16GCd6SKGs MzgtO GmdEV35H3Q hNWZj NWYwNGQpID Y4IDA eHfxkYmQ2J jg0Zj qhJQF7WD58 MzIzL BcjW4MvHfD kYjY5 ZTBkZTQyKS A2OSA eTERiNlF4P mRlMj ZmLWFiNjEt NDMyY H2xZpN5UAU 4MmEy ZTJlYWMwMS kgNzA jANLIGK38R GNiNj MtLA0pDpTr LTRkO HhgENs7Ky9 yOWRk WsW0TJKiKT IpIDc xIDAgUihfM zU0OT r4DAOnWlA3 ZS00M FNuQFi4H0D tOWRk SiT6SmIeDl kzKSA 3MiAwIFIoX zMzMT wtF4BvHAWt N2ItN XF1JK9jTZP 5LWE5 HNL0VHBtZ3 I1Nyk gNzMgMCBSK F9kZG A2TTzwOu3i Mjg3L TRkOWMtOWF mZi1m IALqDEw4OZ NjNzA sWQv1VYUqM ihfZm NkOTFiODQt Njc4Z E90JTK4NRK 5YWMt IyQkCYQ5NU BhMmJ fHNV6WTBcD FIoXz YwYTdiMGY1 LTZkZ DUtNDBhZi1 iZmEz YFC0QyMjZN NjMjg 2NykgNzYgM CBSKF 8yZmVmODEz NS1kZ jUyLTQzZmM tYmRk US2vTqSiSL ZkNDM 9MxQeKMt0U DAgUi hfNzZjNzJk NzktM 0A7EM32HUQ 3LTg4 YzVkAwT8Em IyOTh tEmD5KTI9J CAwIF IoXzNjZGNj OTNhL TQxODYtNDY yNC04 JuZ0QNf7CI VmOTB tWlB9POeaX zkgMC LRGM4rZEJr NjJlM z49EOEySNU 4NDQt RGt6Ua8dSY E4ZmE 1ZTlmNjkpI DgwID AgUihfMzE5 M2Y4N 0PuShmnZs9 0YzZi LWJiZTYtY2 I5MzY 3YjcyNmFkK SA4MS RqHVCqF6Yf YzY2Y OT3QSWcTgY tNDgw Gq5nZLy0JW U0NGY 5ZjdjMzIxO CkgOD FcXGTYPO65 MWExN uutZq1cQLR lLTQy NzAtODlkNS 05ZmM zMzhkOGFkO DYpID gzIDAgUihf MTQxY zAxMjAtYzY 2Zi00 NDdiLWIxND gtNzk 2ClMuLDD7E WI4KS E4CJTkBQJa X2U3N 3R1F1FpKRR kZGYt LQOkQZ2ySC k3LTR bVqWqQZY1Y TNlMS kgODUgMCBS KF9iM jK8AuFrCr7 3NTYw XUZ0WLBbDx MyOS1 kQbm4KIq6L mMzYz ZjKTu5QSYo UihfO Py4NMS3QjP tMjI0 Bl28FExiRV hkMTg iHzA9YoYuD GM3Zj afQIQ0OkLy IFIoX zllYjIwOWM 1LTdl NDYtNDZkZC 04OGR iLWNjMzVlM TJhOD BhYikgODgg MCBSK G5aW8Z3MMa yOS0x OGYxLTRiMT ktOTc 6XM8mAUW0X mI3Zj UwMjkpIDg5 IDAgU ihfZDBiMTQ wNmUt PAovQR95WP FjLTk 5ZDMtNGMyY TkyMG MyOWRlKSA5 MCAwI ZSuKjChM6K zM2I3 JOXsK7MfEZ Q4Ny1 tQeJ1NQB7Y TFhMj NkMDhkZSkg OTEgM CQOFT1nMVp wYzQy KW5lRaF1VG Q0ZDY kBUWdBV9tY DUxMz QyMTEwYjAp IDkyI DAgUihfZmV mMTNi OGUtODFjMC 00NmM 2LWIzZGUtZ WRmYj f5TCFxKisl KSA5M yAwIFIoXzZ iYWRi ISEeJJb8RX ItNDZ nBV2hZvM4Y TZjZW JkZDZkNWJh NikgO TQgMCBSKF8 5ZDEw DUDzFA3vWE I1LTQ yYTItYmVmM i00OT u1RDltZxZ4 NzEpI Qh2VKXyNyu fMWI3 DeIxF2CcL1 QwZi0 0NGUzLWIwN mEtNW V3Aed9IGYd ODhjK SH7EuJsQUH oXzRl HGPcWSR6AW c3YzI dGIH0El69Z jRkLT fmV4FwVzd0 YjhmM CkgOTcgMCB SKF8y NGNmYzJmNS 04MWU qHJW7FPVfC mM3NC 42DEb5TZSg NTFkM oLmYVf0OQE gUihf XHf7MSVlIR AtODN gKf44NpX3C TlkYW ZlKWI5BxKv ZTE0Z LMoMUA6FPC wIFIo U5Q4USPbLr VlLTN mMzEtNGEyN y1hOT U4JBAmOyUm YjY1M TlhYSkgMTA wIDAg UihfODRjZW Q4N2Y wEEZvUP55W GY2LW ExMzItYmIx NzA3N tU1VyTiKKD xMDEg WMZGWU2PRF ctUGh 9o3srpIQzQ ENvbn Y3wQPdUSIy MiAwI TFxBoW0OTD xYTlj TXj6FvFhHM VlYi0 5NjUwLWYxZ WMzYm VkNmRkZCkg MTAzI DAgUihfYmZ jOGU0 QpJgWYJ8JJ 00OTd hLWIxMTMtY jAzZj PnSyZ9EXf7 KSAxM DQgMCBSKF9 mNzA0 XdNnRn6fAW FkLTR iMTEtOWExY S1lZT XqXEm4NYA7 MmYpI DEwNSAwIFI oX2Q3 PIEoTfU7YN dhZDQ vPFE9HT54F TI5LW ZhOTMzMDAx ZmNiM LahZOD2GMR gUihf ZjZhYmJjMD gtOWE bUE96ToUzK WI5MG UyGuo4PTHk ZTJiY WUzKSAxMDc gMCBS IP02BtPjUW M2NC1 uRgV7VTKbK TctOT CaYC35RYMp NWRiO DViOWYpIDE wOCAw NWUcL1TeO5 IzNjR oQDG5VXqmU DcyOS 83F7CyPNVj MGZlM IZ1ILR2Yhf gMTA5 IDAgUihfYz kyNjQ 3MDktMmNmO S00Mj JjLTkwMGMt NDhiM TllNTZlYWN iKSAx MTAgMCBSKF 9kYjF cBNVuKG3tE jdhLT N4HmihWRXw MS00Z jEyNWVkYWI 1MzEp IDExMSAwIF IoX2E rCWWiKOS8Z TFkMG WvBBlbPL8h OGM1L TRmNWEzYjB jMTEy NCkgMTEyID AgUih xTnDwNTH9K TAtY2 M8OD00HlOi LTk5M PUlCzX7QQr 2ZmU2 YTZhKSAxMT MgMCB WIL5zVEX1Y jRjYi 7xOhFhWLS2 NmItO QIcDu7wGtP jMjY1 M9ZfZXWsDU ExNCA wIFIoXzczZ jA0OG P8XHG8TPPa NDJlO I9rEre4EOE mYTU3 Zfd1OWFnUB kgMTE 1IDAgUihfY 2Y1M2 IzNmItYmFm OC00M GGnMZF4FNX tZWZm BLRlCiL2NO MzKSA xMTYgMCBSK F9kMm ExRZU6YQ36 MGYxL TRkNzctYjc 3NC01 HcBtRQK6AV JjNDc pIDExNyAwI FIoXz WgKoS3DDN2 LThhO CTuDSD9FM7 4YzVm BFR7NcteCF U2N2Y iPDeePDK1W DAgUi ivRYO2KGif YmItN FGoMJ41Kxo 3LWEw MzMtMDRmYW NhNTV jMjFiKSAxM TkgMC GFTR5sCMA8 MTEwM H8dD8X5XCQ yODMt KqA3Mv35Pu FkMmJ iMTllYmYpI DEyMC AwIFIoXzMz MWYxO DgxLTJkNWI tNGIy Mo43ObmjOP BjYzc 2XIm8AbW5J CkgMT IxIDAgUihf NTQwO GE3KdXfQeS mNi00 Klm6ARXdVo MtNDQ 0FXMoDLV8B GY4KS AxMjIgMCBS KF8zM Mf8SwNgBE5 1MTI0 POX3QsXrCf E2NC0 1MWEwNTIzN TVjM2 YpIDEyMyAw IFIoX zZiMDNlOGJ hLWZk NDQtNDZkNC 05OTV mLTZlZGFiM DlkOT B5PminLMH2 IDAgU ihfYTNlYjB lYjgt WaMhEp57CA NmLWE 9PVxwSBY2P DMzOT cwNDdhKSAx MjUgM GVVUN3eDZM yMjBi Cx02APJoCG QwMzQ mMDY1AB43H WRhZD o1HeChCTGa IDEyN sTfJZWbW1I 4MmJh FZC9FKF0IS UtNGI 2QM4wOLq3M TVjNz QzZGVkZDQ3 ZSkgM AR6RIVkVbi fY2Zm SJQ5HVWmD9 VlMi0 0MjgwLWFiM zMtND JkODdhZjEw Y2I0K SAxMjggMCB SKF8z YzZiZTJlMy 1hMDQ 6ULY1CrWcG ThhZi 5rQGQ8OpTv YjkzN zYpIDEyOSA wIFIo C0DjCoNpG2 ViLTN rLgJeQDK7O y05Nz x2UCT0LOCy ZDdjN zBmYSkgMTM wIDAg UihfZDcyNm IyMDk zHxGiLK45K mU2LW FiNjgtNDFi M2YyO ThlNzBjKSA xMzEg BVCUDD8cXU MyMmN dFZ0rTHljK TQ1Y2 VzZAMkVL87 NTFhM 2FlZTUwOTk pIDEz MiAwIFJdPj 4KZW5 wo7KjFfB1F DAgb2 QgIcs9I3Mh c3QoT CkORf6PyEm zaWNp NK1yK04hi7 VsdCk bSIOhXT49M DEwID RtTi3TlNHu ZTxmZ APwPQC3UQH wNjgw KEw0ITJ6Gw AwNjk vSILfOFO5K TAwNj EwMDZlMDAy MDAwN DMwMDZmMDA 2ZTAw BlLeKRg4BK A2YzA wNzQ+Pj4KZ W5kb2 JqCjEzMyAw IG9ia cp8ZR0Vu1Q EYXRl EQY7LnDkYU A1MTM bNjY9EgKmU DQnMD CwMO0OefIf dGlvb kRhdGUoRDo yMDIw MDUxMzEyMT kzNis tNCcwMCcpL 1Byb2 U5L8YfHXhl ZXggU ERGIENyZWF 0b3Ig TM81RlOoGZ UvODQ zOCBbSkFWQ V1QL1 C0SV1uNBwo aWVkI GFtzS9eGLe UZXh0 JEJpQC71FH J5IDF YY7zTNC3+C mVuZG 8dzup8hhTx CjAgM NA6KdJlBUE wMDAw XXWlYmV9Uv UgZiA KMDAwMDAwM DAxNS AwMDAwMCBu IAowM DAwMDAwMTA zIDAw AMAyCC3mSf AwMDA wMDAxNzkgM DAwMD AgbiAKMDAw MDAwM DMxNCAwMDA wMCBu IAowMDAwMD AwMzk wIDAwMDAwI G4gCj AwMDAwMDA1 MjYgM DAwMDAgbiA KMDAw MDAwMDYwMi AwMDA wMCBuIAowM DAwMD IsPzZ2VWSq MDAwI A8oAlKiFIK wMjk2 MTkgMDAwMD AgbiA KMDAwMDAwM DkxOS AwMDAwMCBu IAowM DAwMDAwODU 0IDAw DXAsLL0cEe AwMDA iFoj0DRweY DAwMD AgbiAKMDAw MDAwO DUwMyAwMDA wMCBu IAowMDAwMD M4ODA 2IDAwMDAwI G4gCj AwMDAwMDA5 NzMgM DAwMDAgbiA KMDAw MDAwMTAwOC AwMDA wMCBuIAowM DAwMD WhQgc2UEWl MDAwI T7lPiXjLEF wMDM4 NjAgMDAwMD AgbiA KMDAwMDAwO DE2OC AwMDAwMCBu IAowM JUcXMR3AKd xIDAw YZWnPQ5hFk AwMDA qQQQ2BYeiY DAwMD AgbiAKMDAw MDAxM zkwMCAwMDA wMCBu IAowMDAwMD EzNzk zIDAwMDAwI G4gCj AwMDAwMDg1 ODQgM DAwMDAgbiA KMDAw BVWiBDM3ZW AwMDA wMCBuIAowM DAwMD E0PVd7VJRy MDAwI S4gQbGhRXO wMTQx MDMgMDAwMD AgbiA KMDAwMDAxN DI4Ni AwMDAwMCBu IAowM PPxXRG4UgA 2IDAw OCBqPP2pNc AwMDA nRUu0AuqkA DAwMD AgbiAKMDAw MDAyM zEwNCAwMDA wMCBu IAowMDAwMD IzMjg 3IDAwMDAwI G4gCj AwMDAwMjgy MTcgM DAwMDAgbiA KMDAw MDAyNzkzMC AwMDA wMCBuIAowM DAwMD O0Bhu2QTKj MDAwI C6uNhZzUVV wMjk2 NTIgMDAwMD AgbiA KMDAwMDAyO TcwMC AwMDAwMCBu IAowM YJpWAZ6AyH 3IDAw GQRvHE5fPi AwMDA hVii8XTKpH DAwMD AgbiAKMDAw MDAyO Pe0DrCuMXX wMCBu IAowMDAwMD I5ODg 5IDAwMDAwI G4gCj AwMDAwMjk5 MzYgM DAwMDAgbiA KMDAw FKRpCPf7GH AwMDA wMCBuIAowM DAwMD MwMDMyIDAw MDAwI X0tTrQtUKY wMzAw NzkgMDAwMD AgbiA KMDAwMDAzM DEyNi AwMDAwMCBu IAowM DAwMDMwMTc 0IDAw SDIyVI7oFb AwMDA wMzAyMjEgM DAwMD AgbiAKMDAw MDAzM TP8NLAmZNX wMCBu IAowMDAwMD MwMzE 2IDAwMDAwI G4gCj AwMDAwMzAz NjQgM DAwMDAgbiA KMDAw MDAzMDQxMS AwMDA wMCBuIAowM DAwMD WzBBG9ZWVl MDAwI D5hLlIfTPI wMzA1 MDYgMDAwMD AgbiA KMDAwMDAzM DU1My AwMDAwMCBu IAowM DAwMDMwNjA xIDAw DHRyUI1aFf AwMDA rYoM2XEclC DAwMD AgbiAKMDAw MDAzM HS5PjNuTKG wMCBu IAowMDAwMD MwNzQ 0IDAwMDAwI G4gCj AwMDAwMzA3 OTEgM DAwMDAgbiA KMDAw MDAzMDgzOS AwMDA wMCBuIAowM DAwMD WiCPx0ZBRj MDAwI J4mNuDaFEP wMzA5 MzUgMDAwMD AgbiA KMDAwMDAzM Dk4Mi AwMDAwMCBu IAowM DAwMDMxMDI 5IDAw YYBtPR1cDe AwMDA wMzEwNzcgM DAwMD AgbiAKMDAw MDAzM TEyNSAwMDA wMCBu IAowMDAwMD MxMTc yIDAwMDAwI G4gCj AwMDAwMzEy MjAgM DAwMDAgbiA KMDAw LQPwMCN6RQ AwMDA wMCBuIAowM DAwMD QuZoA4XCJf MDAwI L4lZqQtWEF wMzEz NjMgMDAwMD AgbiA KMDAwMDAzM TQxMS AwMDAwMCBu IAowM DAwMDMxNDU 4IDAw TDKrZI7xEf AwMDA uHpI0ESBhC DAwMD AgbiAKMDAw MDAzM ME4BRNlLKY wMCBu IAowMDAwMD MxNjA xIDAwMDAwI G4gCj AwMDAwMzE2 NDggM DAwMDAgbiA KMDAw EOEaSGQ6GG AwMDA wMCBuIAowM DAwMD MxNzQzIDAw MDAwI Q1mJbMtVWC wMzE3 OTAgMDAwMD AgbiA KMDAwMDAzM TgzOC AwMDAwMCBu IAowM DAwMDMxODg 2IDAw GGRfPG1tVe AwMDA hWiV1KcPqK DAwMD AgbiAKMDAw MDAzM Nl0FvXrDYS wMCBu IAowMDAwMD MyMDI 5IDAwMDAwI G4gCj AwMDAwMzIw NzYgM DAwMDAgbiA KMDAw MDAzMjEyNC AwMDA wMCBuIAowM DAwMD MyMTcyIDAw MDAwI A1xFbTqIKJ wMzIy MjAgMDAwMD AgbiA KMDAwMDAzM jI2OC AwMDAwMCBu IAowM DAwMDMyMzE 2IDAw SPWpRQ2fSa AwMDA wMzIzNjMgM DAwMD AgbiAKMDAw MDAzM jQxMCAwMDA wMCBu IAowMDAwMD MyNDU 4IDAwMDAwI G4gCj AwMDAwMzI1 MDUgM DAwMDAgbiA KMDAw SYAeDeB4Vq AwMDA wMCBuIAowM DAwMD ZqGDh9EIAf MDAwI X8vBxEoLWE wMzI2 NDcgMDAwMD AgbiA KMDAwMDAzM jY5NS AwMDAwMCBu IAowM DAwMDMyNzQ zIDAw KRVjBB6wAh AwMDA iPjJ4JZXiZ DAwMD AgbiAKMDAw MDAzM ux3WIXiOSE wMCBu IAowMDAwMD MyODg 5IDAwMDAwI G4gCj AwMDAwMzI5 MzggM DAwMDAgbiA KMDAw ATGrHyv9Rk AwMDA wMCBuIAowM DAwMD HrSLB0FRXg MDAwI N8oLlUaJEA wMzMw ODMgMDAwMD AgbiA KMDAwMDAzM zEzMi AwMDAwMCBu IAowM DAwMDMzMTg xIDAw QDWhTD3uYu AwMDA wMzMyMzAgM DAwMD AgbiAKMDAw MDAzM qL4DPFdEDR wMCBu IAowMDAwMD MzMzI 3IDAwMDAwI G4gCj AwMDAwMzMz NzYgM DAwMDAgbiA KMDAw MDAzMzQyNS AwMDA wMCBuIAowM DAwMD MzNDczIDAw MDAwI U7pBlDzCMV wMzM1 MjEgMDAwMD AgbiA KMDAwMDAzM zU3MC AwMDAwMCBu IAowM DAwMDMzNjE 5IDAw TRIbAV7nFz AwMDA kNyY3ZkuaP DAwMD AgbiAKMDAw MDAzM zcxNSAwMDA wMCBu IAowMDAwMD MzNzY 0IDAwMDAwI G4gCj AwMDAwMzM4 MTMgM DAwMDAgbiA KMDAw WAFyTlm4LQ AwMDA wMCBuIAowM DAwMD MzOTEwIDAw MDAwI X7vCvLeVSS wMzM5 NTggMDAwMD AgbiA KMDAwMDAzN DAwNi AwMDAwMCBu IAowM EQmOQK8BVB 0IDAw PQRsTR7mFh AwMDA wMzQxMDMgM DAwMD AgbiAKMDAw MDAzN KX7GFTcCRX wMCBu IAowMDAwMD M0MTk 5IDAwMDAwI G4gCj AwMDAwMzQy NDggM DAwMDAgbiA KMDAw BYFtDNm2GQ AwMDA tGCHqCMf9t mFpbG QoIca5P6cw Zm8gM TMzIDAgUi9 JRCBb EIR8ZkOrGC ExYWI 0NmNjMjcwN jQzNj hhYmIxOGUy YTMwP zmnDPJ5HIH kNDgz MTkxZTRjYz Q4ZTR kMRKnGGh0Q TUyOT 6qM7Tsv9Lq OCAwI KPfW5b1LZO xMzQ+ PgpzdGFydH hyZWY KMzkxMzEKJ SVFT0 YK ID Date Data Source [id number] 02/15/2020 11:00:00 AM EDT [facility] Name Value Range Interpretation Code Description Data Supporting Source(s) Document(s ) Physician Luke MarquezTVSOEm5kKy QKJeL Formerly [facility], [facility] - [id number] [facility] [id number] eXBlL Brothers 5V0fABsK5U 5cGUv Medical Dt2bnR7NAK NlRm9 Center ppR8AMQn6X XRpY2 JiXF1yd3Zm bmcvV 9suBB5glDI uY29k hZ3tRl2CRH 5kb2J qCjIgMCBvY moKPD wvRmlsdGVy L0ZsY KHjBVMwy5E lL0xl noh7cNTrHE 4+c3R yZWFtCnicK +QCAA ItMBqVMZ7m c3RyZ WFtCmVuZG9 iagoz JQPsw9DeJz w8L0Z hpCWknu1Tr GF0ZU TbX17kDS7H ZW5nd GggNzA+PnN 0cmVh mMu9yHDK4Q rk0o/ INFIwNFAIS eNyCu EyVDAAQkMF I1MLP XNTBQtDPQs jhZBc Mv0WqWWQMI OF/DQ Dv87ORU5SY K5ALg C0/T0MLyOg ZHN0c mVhbQplbmR vYmoK EBRdPD7gxt o8PC9 QuWe3FHSyK mxhdG VEZWNvZGUv TGVuZ 7YoKAVuEr0 zdHJl UL3JwRbl8D IAAO4 AfAplbmRzd HJlYW 0WWJ4we4Cd CjUgM CBvYmoKPDw vRmls zBAdH0NxUG RlRGV ge9QgH6ram md0aC A3MD4+c3Ry ZWFtC nicUwjkKuT Sj8g0 PAI4ENhF68 IK4TJ UMABCQwUjU ws9c1 JMJ8R3HrLS kFwuj VNQ6YGWM1W 8NAVz zZAsLtcQrk AuALX ZZr3VHT3rr 3RyZW ErPdBwIS1m ago2I WYqp6DtRgi 8L0Zp qNQbeq0EvY F0ZUR iP35oAM3RS W5ndG ggMTA+PnN0 cmVhb Ql6qAftGvU A7gB8 GhPjTVO4ur VhbQp lbmRvYmoKN yAwIG 4tpjy3NN4D aWx0Z XIvRmxhdGV EZWNv ZGUvTGVuZ3 RoIDc zUi2dtIFuM W0KeJ iALNZp8DUO yDRTM DRQCEnjcgr hMlQw AEJDBSNTCz 1zUwU MSs2HA1VQK C6NgM C7SRPthev5 BXPNk Ogr6dBiVV4 AthgN 4AplbmRzdH JlYW0 GMD7hj8NmM jggMC BvYmoKPDwv Rmlsd FRgX9NiMDE lRGVj e8UhV1dmsj d0aCA xMD4+c3RyZ WFtCn icK+QCAADu AHwKZ C6uc3ShULJ tCmVu CS7wjfr6HG Agb2J cHrq5T2Imz HRlci 3EnLF7KJEn Y29kZ G0JDV6lsMm gNzA+ DrG3jeDonZ p4nFM A8Sct7a/IN FYwNF AISeNyCuEy VDAAQ bGXG1LFWTU TBQtD PQsjhZBcLo 2AxPR UBROF/DQFc 82QLC 5ZBF4UJrQ3 Qw3aC tZlXJQ8uwE hbQpl bmRvYmoKMT AgMCB vYmoKPDwvR mlsdG QrC2PiIZRs RGVjb 8DpB5quxwg 0aCAx MD4+c3RyZW FtCni cK+QCAADuA HwKZW 6tw4SwYNHp CmVuZ U4yugniAXL wIG9i moz1CB2QjU x0ZXI vRmxhdGVEZ WNvZG DhFTQuZ5Gg IDY5P r9raIEmRW8 KeJxT HGEn5EZZrA RQMDR QCEnjcgrhM lQwAE BGDDODWl3h UwULQ a6HB5YRJX9 NgMT0 WGW2snzSiE ZIFpd eZZmuYkK0f g3UCm QwDVU3mnQd bQplb mRvYmoKMTI gMCBv YmoKPDwvRm lsdGV sA8GnEGNxF GVjb2 PwT7xkchr9 aCAxM D4+s8NxCWE tCnic K+QCAADuAH wKZW5 ji8CyBOIjP mVuZG 9iagoxMyAw IG9ia ti0MB8StXo 0ZXIv RmxhdGVEZW NvZGU lWSAyO6CfN DcwPj 5poQLcNN7S eJxTC WRn8WJGgTE UMDRQ CEnjcgrhMl QwAEJ MIXFZRf4dL wULQz 6TV5QSWT0S gMT0V ZKrdzu0UTE NkCwu 9mMdJI1VgN UN1gp lbmRzdHJlY W0KZW 9af2NvOoU7 IDAgb 3LqKym6X6W pbHRl hz8TyZE8HP RlY29 fEX2PGT0op GggMT A+YxL2yiBv bQp4n PrxJqFU5sY 8CmVu TYZ9qqRfdV plbmR vYmoKMTUgM CBvYm oKPDwvRmls dGVyL 0ZsYXRlRGV jb2Rl F4liptr6bN A3MD4 +g9EoWLPqH nicUw hfQiNMv2i5 UTA0U JyK27PW7PG UMABC LbKaOdu8s2 MFC0M 9CyOFkFwuj YDE9F GZH2K0VXTv zZAsL tcQrkAuALW KDdwK AT8qf3WmPR FtCmV vQO1usfpyT iAwIG 0nuyn9DV1W YWdlT Y4oPW9Rj3J Ob25l B57dpEEwQW E3IDA iQm8FxRFeA 0NhdG Gps0xqH1N1 bGluZ XMgMTggMCB SL1Bh R5LbEFB5YH AgUi9 KoFA6LOGGo mVmZX JlbmNlcyAy MCAwI FI+PgplbmR vYmoK MTkgMCBvYm oKPDw vQ2uxl4ydF SAwIF BoW3N8mZEx UGFnZ FJiX906bnR gNy9J VFhUKDIuMS 43KT4 +NyGfVB8dd goxOC DaSX0lihw7 PC9Db 7CcxORxD6J pcnN0 IDIyIDAgUi 9MYXN 0IDIyIDAgU j4+Cm YzER9pislu MyAwI E3pshodX2t DQ0Jh s6EdIWB1JB AgUl0 HGP3zn3QhY jI0ID Tgj6MjSxy2 L0Zpb BQrub5OaIG 0ZURl L75kHE6JEX 5ndGg eHbK6Lq4UF DM+Pn O3clNgbOi9 nJ2Wd 9NR8FvXg28 3vVCS MZkM9VyyWg JIDb1 GkZ1kZIgPQ sCQAC E1GUCtUWED pggyK LQYx1NFdDG KhQFR sesEGUTUcX AUG5Z UVL3Z85s07 82b3x /3fmufvc/d Z+991 roAkPyDBcJ MWAmA DKFYFOHnxY iNi2d tHeVQ6KPPc ADgcL WpYdh8IbOB AnzYj GyZE/gXvbo OIPn7 KtM/jMEA/5 +UuVk iMQBQmIzn8 vjZXB yXiMv1U4gg t0/Jm FE7Bf3bZi3 iWYIy YuRi8xyfbQ aZZQ8 58zKEPBnLc 87iZf Lm6WukkYyP voyRY SlF1kt6mIB +JmOD dPiCESFz8J EZfE4 2IOeR6P9qc 1NkbC 1oggulxd9j eQDgS Anh9XWrTOx PE8sP lu6JBl6MRN eIGSZ aC5gPtuGV1 c/PTe eLxcwwDjeN I+Ix2 JkZWRzhcgB mz/xZ FHltGbIiO9 g4OTg awV6cqqlXk 138m5 Q0iyEgsZ/u GUQf+ IA8I64KSAY wpmW1 2fqHbWkVAF 3rAVC 7/EuWHS8Mj rK+dQ 80aD43mP3F xOIsZ uqd8WvmSsC faykv 6O/6nw5/Q1 98z1K +3e/lYXjzk ziSdD FDXjduZnqm RMTIz uJw+Qzmn4f 4Hwf+ aS6GVxeqjk gvlEV Mq9ZFKKcGb VvIE4 gFmUKGQPif mvgPw /8x5qqKjhv 4EdCW WAKlIRpAfh 4AKCo QXAs7EWtC7 30Lxk cD+h9X5TsK nfvPg f24C3fH/sg WJH+O C3xHRttSDp 7smvx aAjQgAEVAA +pAG+ cWP8OBrjHS uAAP4 AMCQSiIBHF gMeCC FJABRCAXFI C1oBi Yko5yX6wRi aARNI X7qCm8rDFc NDgHL oHLYATcAVI wDp6A KfAKzEAQhI XIEBV Py2KwU3fkr oVYkB vkAwVDEVAc lAglQ 9UOLmBB19P SqByq oxnxGnmd3T h0Gro YGNZ2hUAzV voVeg cjMAmmwVqw EWwFs 2BPOAiOhBf ByfAy WW6gvztSqQ ADfBD uhE/Dl+ARW Ao/ga cRgBAROqKL MBEWw kZCkXgkCRE hq5AS pAJpQNqQHq QfuYp IkafIWxQGR UUxUE rWY4zcHWAc opahV iP2q2sUY7V dqD7U NjVepkm0FO 1Ga6L E8e9nECWxM hmdiy 7MX2Ne7M5b s+gR9 Qs0LDoQeIW MMY4Y x3ajSgJzVn MZsxv TjjmFGcaMY aaxWK e49gombu9H crBib GQ2RtgKuvD 7BTuO fTWb8nTrjn hfXDx OiCvEVeBac CdwV3 PKfPs0Vy6C 74wPx fPwy/Fl+EZ 8D34I N07sZWsOmE muhEh CKmEtoZLQR jhLuE a7QTOZ1MfT xHCig ByLBDe7LJg PHCW+ GGBCAiI7SF EkIW0 b3PmaTy2eq SCTyU TcT3O5FFvw Qm4mn gToA46XqAa YKgQo 0VQHR5EyaP pcUXi qcKv3YJAVF KyYr1 iheERxSPGp El7JS ImtxFFapVS jdFTp qrN7CaVLQs lUOUN 3q7RA9lIeM xQsxY jiQ+FRiij7 KGcoY 1ZTxv5uC7b UddRG 9bvnJS3KD9 YF0FJ haxWulLO0C RWKip 2KlJksEb4S cRUpH bOq6YBi0zP y+mH6 wga8FZ6RN1 W+6ib VNtUrqq/V5 qh5qP LQTzBo0ScU 3qkz1 D6N58R1aUc p39NA aZhphGvkau zROKv dmP6nniiw6 pySOY oj9QyLOo36 IzRXa L2JHAEt1fV W8tPK 9xcEPqN9VI uu7aG dqr1D+4T2p A5Vx0 6AyQGE84PD Y4YKw 0PRbqoc3DP mdDV1 /BPyldF7j8 ozesZ 2YAsRbs919 /QJ+i z9JP0d+r36 UwY6B iEGBQatBrc N8YYs gmSHHFd2to +NjI1 utEKNiGw2P lYzDj ZLF409mvrT NnE3W WbSYHLNFGP KMk0z 1D717Sg8kd dLMas eQbRYpX9WV ea7zY kz2SOKDvIY BosbT SZFp1aQpUL OWtIt eb3GWkgoe1 kZWMV bbbPqt/pob W+dbt 1ofceGYhNo U2jTY /YmyWxm06r G9tpc 8lzfuavnds 99bmd hb4frU7lEz mofYr /Bvtf+g4Oj g8ihz WKN4aMh0yZ W8QaL xgpjbWadd0 I7eTm xyxni2LnOc VnsfN h5ZdlzU6wQ i8uje cbz+QMs290 56rly BLyrwA0Sc3 S3vW5 Ut065hzfE+ wMPfQ +bU3FObHzx Z6rnQ d7vKkEqNq1 Or9ds Z/DN5vferL vPu8R 70IfiE+VT7 XPfV8 971bdPf9aW 3m+F3 yl/tH+Q/zb /GwFa BibK7zOjIZ fAlYF 9QaSgBUHVQ Q+CzY ZBbI5irKek yPaQu /BV0pvpa1N C0IDQ 6bU1gzqHls V9H44 KEppnBO0PM RNREN G/gLpgyYKW Ba8iv TQXNf5FfFA Jonqj FaMTopujX8 d4x5T HSGOtYlfGX orTiB MFpysl87Bv m+KnF /tz6IibHKA +oTjh +iLjRXmLLi zWWJy ++PgSxSWcJ UcS0Y ckaC8L4qpr nAbO9 PSDmaAGq9m s7i7u L12Rhefddm /KL+d SFEcxbUs3P nZN3p 48meKeUpHy VMAWV Auep/qn1qW +TgtN 25/8TN7rvS 0Dl5G YcVRIEaYJ+ zK1M/ Ija2EFv7zs pMucl +1cNiUKEjV lQ9mL laxLIGaV7L DERLJ eMprjllOT8 yY3Ov dBmxIdPE7h udnyT who5v4mc61 BWsFd 8OygV8J5YY Sl58r 9JwBzfdy1E +uvLl s5vxUjrGX8 hLVpa 26lqP0hK2e 5LmZd C6AD2Qjfmy V+61u ZDSfRoFr9h Gyo24 pfLWf1vJsg pqpNH 1t0OKfIzDy rSt9v 5m6++JXNV5 Vffdq StGWwzKFsz 1bMVu GM89pupl4q Vy7PL x/uLxC2uit jR8mO ydpI9BoEEC dRt4u aX3DVJurd1 V1lUL M23f82CiHS jVdNe 72u9gnb63q 5u6/s 8iyHPucEW7 r3bq9 h7178i/Magnolia qOGin 4LvBh0LlWD N/Z/z lb5tLarmjA pw37h vhcLnCX0mS 7NzS2 aLWWtcKukd fJgws HL33h/093G bKtvp 7eXHgKHJIc ef5v4 9kEIQSu5b1 COtH1 n+X0xP6Ytp BPqXN 327TVXCv0F 6x4+G bo7x6aro+N 7y+/3 Q4A2RzQs9Y jZCcK JohOfTuafn D6Vde yq4mQOL30W eu+ci T1zrS+8b/B s0Nnz 20jIkkp46J 953vX 5mTuCN74fX F3suu RwqXPAfqDj B/sfO gYdBjuHHIe 6Lztd 3ikzE0evpy uV01e 6h691PbXx0 sj8ke ZeIuso3an8 Ib3Ju /ftCqzm64t zbs/c WXMXfbfknt K9ivu a9xt+NP2xX eogPT 7qPTrwYMGD O2Pcs Sc/Zf/0frz oIflh vLQOVKRu86 fHJn0 nLz9e+Hj8S daTma fFPyv/XPvM 5Nl3v 3o4MgZYCaW +XPT8 06+bX6i/2P /S7mX vdNj0/VcZr 2Zel7 nUt2MvQbip /7uYd xMzue+x7ys /mH7o +Ze84u4oqL +ffgP 0iPR6VjDyF HN0cm VhbQplbmRv YmoKM jUgMCBvYmo KPDwv Y78dr2CQsU FjZS9 KUZXyI5JPs mF5L1 Y6SmQ5eDDy SW1hZ 5CnWVVuJ3l 0IDI5 W7WvxPRgul 9GbGF 9MFUaP86iO S9UeX LcK0nMMuwl Y3QvV 2lkdGggMTg yL0Jp dHNQZXJDb2 1wb25 edoElEI3MG W5ndG ggMjg+PnN0 cmVhb Za3cH9TORX AAADC kP8nDjnweU AAAAA LGob3U7pEM mVuZH S5yxKzuAzy bmRvY moKMjYgMCB vYmoK UAylQ54hs1 JTcGF jZVsvSUNDQ mFzZW QgMjQgMCBS XS9Td MY2nAKrO4z tYWdl M8ufgAhqfS AyOS9 SdLh0VDMgO mxhdG VEZWNvZGUv VHlwZ Q5XZ0HiCTR 0L0Rl J75eZQYzos 1zPDw lL76rtG1gy yAxOD NnH69mw0Nc IDMvU HJlZGljdG9 yIDE1 I5DggUXZNW JDb21 le32vtxAeH D4+L1 dpZHRoIDE4 Mi9TT WFzayAyNSA wIFIv OJ78PKIzm6 xhdGU jySG2JA6VD W5ndG urNKF6DE0M aXRzU NZdD24tsS1 uZW50 IDg+PnN0cm VhbQp 72w3jCMHPG 9bHb+ IkcybRuEZZ Gpq1Z SGABR0W10J IQoyK M7oTGPlnDF GNAho QIyTA54NT+ 8KqgI Q0ubnSiYAd GcMmA WVREVBRQUB AlEVg qrqRpemGRt Evfsd 78lKl06fhK d361b 3/e+sJPW/M 0UUPy noHB0nRylz 0tVjF 7GFY2vdvxd /Xb9f FpFeEJlfEZ 1fce/ io5//LAdrr AvRNg z81C/vsB3w uMQvT Mj98cKlOQ0 +zvka EH3lCwC7Hl 4SI2k EsTowsF9I2 CdhxL J9O26DudBy iuOMk XPTAvmAL6d huziy 1qw9CHZTjy iYTFO nggH9k0g+G pserD 4bDpKMwzXn OtoA1 jqYqAs7cCb dQdNn qEIPIfuMRy S2tZQ wcEB1Rpbc1 qtPYw rysK/cGNmp seZqa T4Wu0lkgM8 GfDyT m4SDhKtlmS 2saXn X/9bjxo3ca hKlUM PQCQ0/QZI/ q9l3k DTFukE3D5i kBkTn mcIe3k2JJB 5hCJp /OlRmss5Jq TCaDE jkgPv/NRkT 8l5lT VDmnEEi3i0 w4XGt iAq1tUSpmd buvs5 uQpD1Chrtb h0PkQ z23CR3F/po Psz3G GGNFD1SZiV Qlamp mqpTNVA6QA DBgOs 3V//c3BYih ZuxFh PdtDZB18XW E5g1z v/bGAJjlAS r09o7 334p95k7Tf UAgC5 Vr4hc7SkgX utdWk L6472qcVs+ bhvnQ 9Cs0mV7UjV nuYNA RoKCTUVjx1 +fDzC jg1QeJ7Vm9 +uWLE tK92k8hOA2 1Qpgl AGX66+/9sl 1RoMe TisgKiwiYR rbh/y YeCc7PcQqH jBkid 2vrQYEMczx hwcja JSzFbA4PVx 5/cT7 MaQkwlbLdP vUlET t0x4FSb4qA R2Tl/ hhQYyEnccx HZs/Z QoQIewwRMd waBPr ApUD8u7UXg LzVPg HRlIMO5GEb /7J87 LRssCb69du u5/RX p3blZ8qG0r SBBhU mWsMUeyXjE 77Rwz 3QWpCOsidQ coGpZ ZUaQ80Ksh9 plh8R I/MImOGOpe gsgeH HdB9sBN+R0 9G53S H0BpIfONTD bj1Yv w629IKE3HB YdSIu 31p93xzU/g SUXPF FRPZVdT7ES vfabZ HVOHzo4wVL lxOUW EAtHHgs6qc wKK2+ o6sl4ELhIc XX2sZ e47QLMOlJ6 +1gkv 5LVhpE4OKy sr2j7 V87ILRJdv9 sYMJh MGB+tTfcP6 6g61l ee4zuy1M94 YhmC0 qblOo8jMPV dzimh eocDIdO8gg HwgTn Y3ypl2S+EF 3o/PT HEJjopmziO bRxQn BtUyJ8dHrv iLz4r Ou/Ui9FPm9 vtqnk J3GT2hWEbN D8lXm niQSxep9bv LVWuP 6Y2zwOBdh2 4qeY0 5f9aiKz608 zdjxW V7EsAERtVU eD3og oaiYeA4DXH kQo/j k8mE1xNKn1 lTcp0 HLBGRmBXin KAXOv KLttDBN3W6 hz4GO qKYLL1bxhv pkfLh OAEgOpXRtu 1tAH2 nikwxRnmOm WVlDx 3Z4fisHUBO Do6ek WlNxr0vRDW yA6x2 SUia+k5l0H dXeUJ DqJ/G78pfJ lP0Xt kAeHZA9L6X CsCNr gq04UbW2pb 746Zo wS8wVTgidp y3gS1 4kmvqDKXrY nZODF xWkYyF3EXl eF52f tY2NG8a1Z4 VsD5A 980O9myAIU EsfJN 2+EQKPBLq2 qhXnu cVZ5fRpQgs EiIbt yd06wXwBi/ Ck4yz nfxr+E4+qA Lm+Lr bxlIdVV/lj ma3FY zoi8Y56OgE nOaD7 kal0eHSlH1 6Dphq IY/pXEPcyX RGQXJ KxN9ELKDrj sPxQN apyPvhAMol MfjZf pR3Jhjt0aL 2Zw4a CWymiJcneP GGgEZ 21CZ2JmrKA SEaEE ZoIKSv/cqh /US/y Mmq1AWZqc9 Hr7Qb 8OADUKaPGU V/hLP z89VGlu5zC lR6Sh 6akYERv+5R EQQTm utxeu5HKAB Iwsjn dNZfo9LSE9 8z3ja 1+dRlL0Un5 X5aVq I8HHCz8io5 jn0ao OlTo3vqMVT X++Jw TfMgSRtIJb yJigx y18YYxru1I HzaBK Z1HPWn8Fln Vld5H pGs6lCiAj8 MR/7C xi7zOZfUJK 53hMM Hfbr94L2+R U/7mm 99TdGPLuP/ lSRwV EKpJvxLV+0 gJhO6 8GiPEkrb6R X0m8X L0r0q244aF p5D+H yEAhtstswS tBRI1 VXHF/6K+Vd +tQDE KTYcFKkytq zOdg2 sPWWivG6LG ku0MK duP6gn/uFP ZdXHX gMZ4dVPHFu 2vEMl wCkXGL+GDg AfoM6 W4rLZt0sBx p3vWZ cwfLIB3+Nq doiZb xmTfLKutGj 4ge38 QyyutsCft0 0cCTJ Tb5gdyuxcj D3ePg OayNL3TqaK bj6H1 Pgd8X7crrt zYEPt sVxp5pUKGu zt1y+ hUiQmSWVUn fOhFZ h/df+3NyIY JyGVz XY5AoI8uWt W1HRI iE1QI1yMRw /MEpD G3GVDLk9rn CKlMC wpe97dUMva y0cn+ 4eMfp2iRk8 PfMTh IXoIiv3oa5 LowwL ooR7zekr5k TbaT1 NuICep5PuV 412Pk oTQYzv73ry 22kWA eNW+gzoik/ 2R7yS hGRlfSKEdn hmCQX Igu5Yi/CEV 6R24u kirwI/7OdZ /su7j tqOzgei9xm ReMah NsgytY2KkP RECr5 4hbkqC5+6U BiYgW jRO27/gszC aOGLq ysJNNaf9md fVlEX wLa3uiCiOR AOjHJ NjLMeKW3Mc J7tvC +HcposLaaT kXhZp gnp+RWbD4S CYZc7 KX+2oiorPb D2pPE lKPkzNqK32 vP4r0 gSL8wbbXbF tLYJA WRzbaJWDYh U88gD wG4f0xu/hE YT8am Ami7WvtC4c 3BONY fA0PfaCtim xzDXz ciCsa+2GQa 1Mftr zVr4RBR1pU aE46k OTzhJFY86y eB2I2 /KSN5fsmjQ 4vI2o NOKHits6o+ YIycw 3ow5A2Lrva HbYB5 SoNMsDwX03 VGOJd 5X9C68hfHO 1U3pA gxKCQ+aFOS L1e8M AG8v7HRH1L IixCZ JuW42gc73o 27E5c Q7P8C69bol alr6s 1ai0mgvUz1 urzIi ZgiJERgtuc kI768 zQOoRm54eq Syqns l1UZuAB1Sy +MbXt Ja7jNnm17B qLhit CtQI9j4onF nD0Vk b7KgpIyjqh YRE6s uxLn6ON8u6 laf2M JcmEYBdUpt 46PBc lWkReaMApG Hj56I TWnNfXlEku WdcoK aUlnA5RpEW WLj5J xyLOeRipzP HCRQH EWIEOgSxa4 hiPSX 2C56j4WN1m GZOSX 1pGAQ6Ujlz MIXtF xOowovm5f4 DzKCL m+TXdzYIxK QcAWb kYYXf7Vsnz P12/d hGhkhxQyR9 Fjzt4 NHugsig06P V9czn Nyj1PQ8TJ9 kIt87 sbhR4Ncri/ Fq1uY 0Br95DkJti 1GpTY 5BLW6JXzl9 pcBML uLgYaOUAN3 U0vEc ri744TumK2 zRILE 5gdGDN5gp0 t66K2 GWZ8uW0ZPr wfKNK abIUSy45+j n6JfS IlrrpO/04r oIolK Delv94O7uI 6dEHB TVWHklklUK MBSVH Wua8rCUmzn oSaEH RKdEnQf2L5 T1Ro6 dBSeY4uBE9 /dHk+ BbeD7qTyNX gSQ5V l8bcvpXxXp OMkir LZLcoDnmew lBhuy S8DeErL8V+ hZxtc hfB7Sl3PMg nljWa LOgeHEF5PD XeyPn bAmWPmRVGl 6lwvw BCTMNrXNF4 +PSEX ELyBMjQgsc Touor U1QrFTva3P 1ycDr vLOXcfEDUa Lueqe 2GmLuL5/1y z1N9p nUQQHVOzIf CFTR9 kvYuSZs3t4 +jMAO iiOc3fcuOP dkNaa e56sTJYKUo pWyGp mI6PG/sYiW 32NHZ 4HoIL1H1Zv 3SLQa yw90iF6l7/ LfeIK eByhQa+ol6 bzwxy 18uB2Bv4oK pOw9c 60BlL3cmhK h/UAe QA4TCs7P7b w8b1A in/tdZmGmt Q1v0f 3KSwMVsrSJ aAOiG 5rHpJz+nSx 1E38s X6ZjsXVb2u JS/GH d1kPMyQGLG uDqqg YrJf+GxE9f 7Y3G+ LhoLXyC27x pA7dA M0glFafLcP GHHz9 pF+9L6ZA3S Upu8Z 9WFwr5fYb6 IuOyS /BHplocQZg kqfCJ 3MQVPj3P6F eQ39r APMiEXo5cE A2oMv ZZtBrmz7Gi CsKlL KNxMeX2cpP Ua1Rx yVNnUi1NOS 09qH8 rtco3irlPq uowEB asZ3MWyAgR K+UPp NuTSMHKkci 0Yl0o u5rvm8ghdd tSXOG NCkqF9JK0L YgWjD pgjwdEN7pc aXuvZ DmCjKlIwzc qU75z lH135nGmuQ W30E/ diCq0UOrQZ rqhRf TehFrziv7X d6aQN lgwqAzxKy8 dNLHQ OMuY9watwi 0jHPX OAj4hvvEQm RGdSm 6TlLTfsBy6 /7vcw usPLNkpEz/ 3xLst vC4aGzIuwR NCYPz Yym91hAtQO 9qQeH sVRam7zUE3 Fngji uEjJ5h+9Ef XcwPm f70iLMdBMp 1v0yk UBcf9i/3cA VIxy+ w7HwwZ3FrX Vtx5e IiTTlzjife A0KtR gITrwJLD6k Nv9j2 iaK9fBvq3s ZcaXX WV/85jFxWM jwNYo Z/QQJbvFeJ IhO4l kYVf769xSK NUbzA PGcch1oLlz Oh4Mr SsxNqv16ap pTU0t 8hJSWpOFZD cYDzZ pX7OK9wdRN GDfwc D/p84VaMWc /iEVV Xu10L21+hc mO6Cx 5pRijvPuN9 TqTCH 4fB9bIgXYI B3jD6 RFRHzHEN2f oBk8Y 27ujGGOG6l oG6jQ MbHplanwEQ n+Oio 2s2nmi031e KSrsJ DBnc4NtkM2 urqFA W+ZiPzEJjg BnPpr K6wK8VdORB G36jO mqjeD9J6BV tdIPz 0VMUsM8otn gU9u+ 9E/0jsGDs0 ZRfe3 2D3cs9km9/ NL7Ss uVkJ1OJrWl kam1t 2Uc5NN/ZBD IEKdd wij6U/RpyI HbqX8 frdK6DIjwj qRlh5 /Hh8/yZtaV X9e4t 5kNdqUOVa1 7xYfa /Q7Qx3I6y+ V++jZ s7eKAsEQZT 479Jd KfsHLmY9SE BbdzD 5wcefd9YD2 OWc0X ukKldr6y4O LBm90 R50imu1z0W fqFl9 MH6qQ2h/lF TX+HR Y5wW00y6LZ 73hfS hA61bKiGX1 A0s/I nhpJ0BBtNK MWOmP z2aPofVY6j HRK2l qwioaPi8dK SU1T5 q240RweaYB /ECXi v97wAI+WlS UoEsS MTqntHqzbd TfP/X EHw/87Qgou qiuDG Icrf2Z0afb X2kV9 b8wHRlrNR9 X+8Kq 8oUTd3my3I 7b9x6 PTHO5KE3Tf gZNCm o788raeNZD 9RaRV 3XcqHoISlS cleix zn8YrNm/+h aRt4f kUd/8CObTg cjGio UlSi0aruxR 2N8Em voCN3ZhJWG O5LxF 8L0RFpcfSJ jFwHU IAspuaDCJA spkS0 7ym9L/t4i8 Lpnyo Nsayt73P8b a36ye /w+Z4EleWs VuZHN 0cmVhbQplb mRvYm oKMjcgMCBv YmoKP HuuQ7BjdEN 8PC9T M5JgJW1elY FyZW5 rkB0HIDStg WUvSy FoANfcGY5A UyAyM yAwIFI+Pi9 Db250 MZ04r8ckZC AwIFI gMjggMCBSI DExID AhOt9oDZls ZS9QY RhvD5Vwr63 1cmNl eva0Y7MxtX 9yU3B hQ9Y5RY2PS WZhdW i4KxgFKHEw IDAgU j4+V5Vqh4J TZXQg Qx5FLGGtS8 RleHQ zT1yrIUawQ iAvSW 8oT8ZYWE3F bWFnZ ItgF4ZzgdR 8PC9I CVJhSDP0CM AgUi9 HQZq5JXByY DAgUi 9YaTAgMSAw IFIvS GVPYiAzMSA wIFIv VGlSbyAzMi AwIFI +Kn9AR5UdR WN0PD wvdGcxNDAw OSAzM yAwIFIvaW0 xNDAw NyAyNiAwIF I+Pj4 +J9EuweXkv CAyMS AwIFIvTWVk aWFCb 3hbMCAwIDY xMiA3 BSTfPe0BCQ 5kb2J qCjIxIDAgb 2JqCj z0H4djUQWs MjcgM OOTOYG7TXL gUiAz NSAwIFIgMz YgMCB GWHN7DLBgV iAzOC AwIFIgMzkg MCBSX L0MhARnM6Z hZ2Vz E5NmhP13XM cvUGF qLM99SGR0K DAgUj 4+XsIdBE9d agozM uAaFX1kqhx 8PC9H cf59aPl5A0 MvVHJ hbnNwYXJlb mN5L0 UHEk2LD0HQ YXNlZ CAyNCAwIFJ dPj4v J7ZlzBmhOK 9Gb3J dN2MfgAOnm i9GbG D5AQQyK04v ZS9Ue BKqU8bCJnn lY3Qv EQO0wal8Vl EgMCA wIDEgMCAwX S9Gb3 JtVHlwZSAx L1Jlc 291cmNlczw 8L1By u8CTFSZfO4 BERi9 WRKw1W8cmM WdlQy 9JbWFnZUIv SW1hZ 6EIYO0JH8B qZWN0 UMtijU7fFA AwNyA yNiAwIFI+P j4+L0 kwixg9bANx OS9CQ c63FxPtYEQ xODIg RyluIb3skX JlYW0 AcLgKy5n2X DEwMF dwyQcAETYC 1Qplb mRzdHJlYW0 KZW5k h1ZlPcJ7IS Agb2J oRlm2G2Dxf HRlci 5JsHM5EEXv Y29kZ B1ISL9uyAw gMjIx Nj4+c3RyZW FtCni czVpbc+I4F n7vX+ GqfYGqiZF8 V+8TA XeaHUKyQDL Vtb0P kxID4j3ini lU9tf vkcGyuTlgs 1Ubii OMwa5eO3hJ ovypY EqMSTe4edg ENRVb q2DWRIVjUI /sZW/ DOHbht2t97 xfxdP 4sVnRkKbZp qBrWE dbhSeV+Daniella VyXfy pvS+s/tYgb vzpVy WaXlj9dytp ZV5+K /O4/RvX7v/ Vub/+ DHi2jvYHPQ dqLZ5 EzoY/pBONH KemJB DB6VaRB5jG /ylYH JBgbwto5Vn e168i bKucqfZjtK pk8tC 0Mj4hpbzpn GWwA5 EcVfXHao7S Rt1aJ rSpBDoPomz FUvSY p7KjR2YsWt OWJSx hW78dGtaj/ 3hvTu tg9QW2Lbtw fgA75 oC61aEg3H/ 4p7lw 8NJzcu49tF pOiyk BgdKPME8d2 gwC4G mjPqsmDwH1 DtPNt deZ9dOh/s6 f9Sv3 y4l7gCGXaF Pox4m Se4uB1DdUn 9yCn1 9dBUNwKJgt 7VYWU RvbhHPXcVE nXjzt vn6DslCROj IsFma 5eRHMcKahf CdTgy 9JyhHXW9xF n2gD7 zMR0+TulBk iRDbi oGuFY71mY3 yiBwP 73VcOOlVK2 wczXN W93hjOUVOA mTMHt D8GiWBrmoH 3NSSy SJ5T6uiYu/ cOpQU e0RbxTHKML vHIow bqJOVQeXPD UvldD H3Nl4HV8fD hgHLx siGbFybEds QeBbi gbdxyEG+tD +asd6 ch+z9bUp21 lAuTU Y563qiNd57 OK8D1 hItgL9oqmQ wOaBr mEfs3QPxTe 5TsR9 6d3AAxWeCL xnlUV lAV1hHD/Ay X69px liUgBOZ46h uKJrZ YkH7ZSB115 fcW8l X2s2wBOvLW 1H5Jv ZPGLg1fFC/ gqGYk KRpJBfMMgC pmAQ0 d+k4cwMxxf pNc7k fy+AC7LdYP 6NYSg JFSilUxoAj /7xpY 1sxHFVrCkL CPL4W scIedp8mve I9ILx WsB2oLHpkN ke12n +bYH4bUFAX bE0Lj 07be9E3OkD JP7vF 0HQzZm2bDK 01RxM iwmoN1Gtt7 IxfE/ KfWQFVrOMQ u1iB8 tdWc0+L3dJ igaZp hzGdoJ8oRs jBR+6 9o0l9x0F9i EqZB3 FIulFcqQ1v fFcdy xYF/j7fd4a KoVC5 C3TtNXtlrS AvUMS aSpSgmG0/g uLp7f 9PJxVK30lj SgQWY Mn39AE+THg ewXbb 9T17IAuqnL Ol78p UQNlyr7Va4 xiCMe QpnTjEsSXP QfViw Vq+pmD7LJ+ mgVUL DqE4Rsxptu qS46r zwm1tZpE0l VqVu6 0+BasgvGUS gotrz Tg9xv+kgiU CwYGB 7WEXslNC3e zSKU6 blsIEpJ0Tg 5tW5Y EFY3cxv7Ct /7GuW gQwGR6abUf pzW5F qXl8KofnO6 cDtyw koSfoFPWs2 5uPPh W/JRfHWR1/ RXLyW AFFEtpqW7o 2MgZh IWdKxGfzrf SFEl5 mnyigJQ+Ps c+XvC IqwghoPN5d bMydf nuaPsocOBG zy7oW 2M15FiqzPx RrZao mPrS1Tsxz0 mpf7U SARMAD/bTU+9mV vc/B7 rWCOLgdVFe xDHZs 2mIou8BBCz rMRg+ HquT4AY5/A 6/ZLh T9L+HVD4NE pXoTR 9ybupscPF9 0FP4m UUkofg267J voQPl 18kMjX34pT K169/ jYvrd6mCE4 1SQXB mrUu09ZrzH M0CFO 97hd85HqrE YVxDj SUmVpRUtQZ pFtaf ldc0rwIaIZ JgJ+0 X4oCDNL2fL DOeov /Eiato4Mx6 E+ti2 GzU6l4a7Hz Hd9lB iOXiXUB/Z1 Wibkq EU7iqTb23u yHE0e QIJ6hEBChC ogCzU qJ70CYYLU2 oPxmJ 3+qV9FjL0I bgsBk IeXo5hLnfY N+t/Q gP+TZX0z85 R0aBK WeFmMsnJZs Ineiv OFgnJ9z0A9 YjTJT qH1Aao6zEH zrVfl ybB068oOt1 nwUUw 3UcJCmvyii 4Cp1+ jEArcXLuA0 0UnJT mmUtBhoqrR zT0qQ xzizy3kYqA N3iGJ /T4fRZ27HO Dqhx5 M7iYB6gY+t 5H6LB VaxNH2rikD IzkCc VGiia0CoX6 XxEcf 7LGQrKrdeU bluUQ q1tsUddzGO Yw0s7 /q1M5BMH9S ztDep mrULjj7s16 wTvjt FEDdpGMZvC Q3Tky bhVFlu3XuG KY88d hK7Jsc4c78 xopgs x5wMpwwlpa iHrat fT4aADwcJL cTpSK rV9TjbHt9c k0av7 tFaLNUjL1J gAFKl Znb+yr9UYM kxglG zgHCUpI3GR tg6YU 5kUDjdqH6t 2bkGI O9H7RzXIfJ 0PBat aOTxMmhCAV Haan5 +dzvhPf4J8 opIlY zkckHfqU0Z Sp2Ux Db4r42rWxO tnHPu GxupbhmNkv T9aDz qYpksyF3vb ZyzH7 O5+2gB9xnS aeoin aB62ZUbeTd k/modesto oOXzgGb5+e fFsDi rUG4xPAZdp 0AHa7 tbYE3WwhbB xDfKr f0etJ9WEXx sAur7 p/p6Tolpw8 h3xn9 mgu3GhvxAD 89j15 45qvaZ6Dp7 yWDq9 i+v+rA40Be g4joW biysRrRGvl qxgBS NQOcKak7Yv GbbN/ bnkAf+sdPW VsRri M5GtYTnj/q +LIvl 10zbqo+mGy iHpOD d6mYPwP/Ls qOM8l A7mxx1MyOo 44pIy N+nNy13vAG blIJt Bk7n2UqdeO n6uUh zv9LGHAdIk PrVYP jOC4xb6rCQ s97vo +HE/XFVS6X pRlO/ oeo80DCBWr V5os1 pbOEaauuDv 7gfbX +89ZDLvfU3 RVZqY skK3Vo9zom /IfeZ Wy1C7vwQQc yMxTE fie56i5Q4S O5q4h qjYKMk1jYH 8kJUa +gIVWMUJy4 8qpys kAlt5gqrz2 o6PVl z41Vi2BMTP Ftnz5 qyrIQv3LtQ /VMeQ /9gg0sRIkz 3Pgv6 vHvYNkiiTy iD+rL bnZJIRdP5z POn35 m8Ei/SLIFk dE3dK STCpKnDtZZ ombBy fZQlVBwfZX HEKob MLzG+/wKIk MWdCm WiFQJ6ofAy bQplb mRvYmoKMzI gMCBv YmoKPDwvTm FtZS9 LqFUjB7S6R nR5cG UvVHlwZTEv VHlwZ M6Md513B4O hc2VG a482O6ZlsZ VzLVJ mhBYrI6VuO 29kaW 2wX7fjdsFt c2lFb mNvZGluZz4 +CmVu KA4rwpbrTK AwIG9 carl4EO0UE W1lL0 qiO3MwH1Pu dHlwZ M4HrOFuMR6 UeXBl V7WxbgEaJc FzZUZ vbnQvSGVsd mV0aW SuXP9goYpe dWUvR U8nm2Qanoy vV2lu KC9cmRQuH7 9kaW5 vYy0ESV2po 2JqCj PmRCCbx6Jw Cjw8L 05hbWUvSGV sdi9T jJA9cBKlZ4 R5cGU zN6N2qLFnH m9udC 6BMHUkRd8j dC9IZ Nd4DXHhD6X vRW5j l5CitzusE1 luQW5 hjEGjU83ti W5nPj 1SAI2oz8Uj CjI5I ARaj2GnQpx 8L05h bWUvSGVCby 9TdWJ 4vUIqR9H9h GUxL1 V5lDCeQr7j dC9CY ZZjZj3btI1 IZWx2 XPCcJ5JmPy 9sZC9 FbmNvZGluZ y9XaW 1MztGyQD8k b2Rpb mc+PgplbmR vYmoK NDAgMCBvYm oKPDw eX14in0USe GFjZS 0MRHJgK6TY cmF5L 9L7ZeM1hUP vSW1h F5BlEHQaR1 h0IDI 1T2KnkLHqq i9GbG G7GDXtR21n ZS9Ue HGwW8hJHby lY3Qv S7iqdVeqRP gyL0J pdHNQZXJDb 21wb2 5bvsYmHE3C ZW5nd GggMjg+PnN 0cmVh gLw8tR4QZJ EAAAD TzQ8pYfuei AAAAA KQLsg2T9fC CmVuZ CG5kjBhiNf lbmRv YmoKNDEgMC BvYmo IIFguS90ni 3JTcG FjZVsvSUND QmFzZ WQgMjQgMCB SXS9T uDK6mGYqL9 ltYWd aT7lklVzij CAyOS 4GwUx9UQAz Rmxhd GVEZWNvZGU vVHlw FQ8NR9PbOR N0L0R uG65fLLKdv m1zPD tcE48xhA7q cyAxO ESaI63qi8R zIDMv UHJlZGljdG 9yIDE 0R7AmuZTZW XJDb2 6ra15pgzXz OD4+L 1dpZHRoIDE 4Mi9T VGMbtcZ7CI AwIFI dTN16WLHga 2xhdG DmhHP4HM3W ZW5nd MzgAYV0IG7 CaXRz IRPgQ74pbY 9uZW5 0IDg+PnN0c mVhbQ q02c7jJOTR R9bHb +IkcybRuEZ ZGpq1 FWRSOB6R96 RIQoy UF7mKJClcZ BGNAh vWVnYS84DT +8Kqg EC6pbzGdYZ yGcMm AWVREVBRQU BAlEV gqrqRpemGR tEvfs v46gIy88zd Vd361 b3/e+sJPW/ M0UUP vjrKF9sXzs k0tVj P4JWO9bcnv n/Xb9 fFpFeEJlfE Z1fce /io5//LAdr rAvRN gz81C/vsB3 wuMQv ZQv79jQaSR 8+zvk bHQ7fLcI9B t4SI2 aJuPqgeP2I 3Cdhx OR1X06ZgrT hiuOM kKFFAiwNE1 qhuzi h0xl6FEHAp giYTF BwfmI1z4m+ Gpser Q7iInGEvcO nOtoA 5mmQeOe0lG wdQdN nqEIPIfuMR yS2tZ BbfNV9Fone 8qtPY wrysK/cGNm pseZq lS4Ra3jydD 0GfDy Ig4XJiSgfp N2saX nX/8agos2b jhKlU MPQCQ0/QZI /q9l3 kLJDxbT1Q3 nkBkT dlvYq9p3CS V5hCJ p/GuRoar2N sTCaD EjkgPv/NRk T8l5l XYMucKGc1i 5w4XG ycDo5rMAel rbuvs 3yCkH4Cnpj zh0Pk Ym76RW5V/p oPsz3 FPQZJA2KRc AQlam npzdPRYV1Y IDBgO s3V//c3BYi hZuxF dTmtITJ46R QE5g1 zv/bGAJjlA Sr09o 4091f64y4F wUAgC 2Sk5nw6Lig KutdW jG2188kzRz +bhvn H6Lt1eU0So MnuYN ARoKCTUVjx 1+Humaira Mdo8CeE3Wh 4+uWL ZmB12q2kSS 21Qpg lAGX66+/9s l1RoM eTisgKiwiY Rrbh/ sEfYa3IrKb HjBki n8shJFHJkf xhwcj wQFwDzL9SS u5/cT 7MaQkwlbLd PvUlE Mu2o7UPg6r KR2Tl /hhQYyEncc xHZs/ ZQoQIewwRM dwaBP aHxZB5i7EX bLzVP xNWuEEX7BZ y/7J8 1YTcbNw31y cu5/R Er5ckR4vI5 oSBBh UmWsMUeyXj E77Rw l0POrLHkfi QcoGp YWGnP04Zrf 2plh8 RI/MImOGOp egsge NKzF4sWO+R 09G53 ZC6JfFqCWM Kbj1Y zc678UDL8H ZYdSI j02q91alV/ gSUXP TJNJLYdZ0S Pvfab DYCRJlk4oP JlxOU XICaEJud9j jwKK2 +t8ip8JFnU vXX2s Mz48NQCVoI 4+1gk i9EAqmE5EQ asr2j 3Z97EFOOxz 9sYMJ hMGB+tTfcP 66g61 exp3biv3F4 0YhmC 5paxBb0aRV Zdzim ozbsLBoA8l pHwgT mF9tis5V+E F3o/P THEJjopmzi ObRxQ aOaDjT4pSd viLz4 rOu/Cc6DJh 2vtqn vS7VM6pLEu FD8lX lmsEAkwa3b oLVWu W0C9ifPEsv 84qeY 94f8cwZf37 4zdjx ST9WnIHWzB PeD3o ysecHoP2UM TkQo/ yz8qB1lMHq 2lTcp 0HLBGRmBXi nKAXO bIBscXEE7S 6hz4G XeGOYR9ath fpkfL hOAEgOpXRt u1tAH 2nikwxRnmO mWVlD z4S2ijqGGP MDo6e bYuYxk6yZE FyA6x 2SUia+k5l0 HdXeU JDqJ/G78pf JlP0X peFcCYP6A3 SCsCN jgf39UoG8h i746Z pjF5dJFriq xy3gS 14kmvqDKXr YnZOD AfVsUjU3JF weF52 iuY8MF2v9G 2VsD5 D801A7ylGG AEsfJ N2+EQKPBLq 2qhXn xdUT1xFpXg bEiIb uiz24sDzMc /Ck4y znfxr+E4+q Yousuf+L rbxlIdVV/l jma3F Pjlq8D22Fx MnOaD 9uzb0wOXbG 76Dph qIY/pXEPcy XRGQX MDbM8EGQWy ysPxQ NapyPvhAMo lMfjZ fkY2Cknt5m F2Zw4 aCWymiJcne PGGgE R93NK2XvyI FSEaE EZoIKSv/cq h/US/ rJpb1OXPnd 4Hr7Q x6SLFKExJN UV/hL Jq62GTky1l DlR6S l8sjTGPk+5 REQQT xlwssh1LLI MIwsj qfTKhm4SIA 88z3j a1+jBgJ1Pq 6X5aV zQ1GMMq8al 6jn0a wJcAs5cgCK JX++J wTfMgSRtIJ byJig jv16PPrsd0 PHzaB OS2ZOZo8Iy wVld5 FuQa9eNqEs 5MR/7 Yha8kFWlPW X53hM DVvgh60N7+ RU/7m g92ByMGUyT /lSRw VEKpJvxLV+ 0gJhO 04XlINkdq7 WX0m8 BB1n1s906z Tp5D+ HyEAhtstsw StBRI 1VXHF/6K+V d+tQD EKTYcFKkyt qzOdg 8zBPMmyA2Y Rku0M XatL4ap/uF PZdXH XgOH2oPGZM y2vEM lwCkXGL+GD gAfoM 7D8sFBw6kT vp3vW ZcwfLIB3+N qdoiZ bxmTfLKutG j4ge3 8QyyutsCft 00cCT JDi8qucdmz mD3eP cZenHA2Wqa Abj6H 1Oua4H7eay kzYEP paLbk1yEMV bzt1y +hUiQmSWVU nfOhF Zh/df+3NyI YJyGV uLW6EmG9oD kW1HR IoL6MZ3kCU d/MEp HW6YYNVz6f eCKlM Koag43lFGu ky0cn +5bHpm3xFx 0PfMT gYSkBdg5au 9Loww PczA9gehg8 dTbaT 3GsETaa8Ys F412P wiASArb36h k22kW AeNW+gzoik /2R7y ShGRlfSKEd nhmCQ BAil9Uz/CE V6R24 ukirwI/7Od Z/su7 ypwKusej8h bReMa uYsvotC0Tg RRECr 27zwjpJ5+6 UBiYg WjRO27/gsz CaOGL xeqZXKyh6r qfVlE StNl2xcCvL KAOjH SQzDLsSL2N sJ7tv C+HcposLaa TkXhZ pgnp+RWbD4 SCYZc 7KX+2oiorP bD2pP EtRNkyYnI5 7vP4r 6lWY8xclGv ItLYJ AWRzbaJWDY hU88g ChH7a9rk/h EYT8a iTgm1RtrV9 n3BON FrW2YmvEor fxzDX zciCsa+2GQ a1Mft ixIi2BQA7k XaE46 qSEbfNJJ92 reB2I 2/SZU6phhc Y4vI2 xMUWXfcb5a +YIyc n8pu0H8Cfv bHbYB 5PjKDfLuM0 8VGOJ y9K8I30hoH B1U3p AgxKCQ+aFO SL1e8 NIN2o0MYG8 PIixC GKoZ87du85 q27E5 oG4F7R71pu qalr6 i6xt4jcdHo 7urzI iZgiJERgtu ckI76 7uZPaLl09l rSyqn uf7UUiFU7J i+MbX gYy0wQlt25 EqLhi fJoSK9h0mf XnD0V yi4ChzJfrc xYRE6 nmrGz0FV1d 8laf2 MJcmEYBdUp t46PB clWkReaMAp GHj56 ITWnNfXlEk uWdco EiXgmY9NsF MWLj5 JxyLOeRipz PHCRQ HEWIEOgSxa 4hiPS M1K97f7JI5 eGZOS L4vBKX4Cbd uMIXt TmGnvedq6g 3DzKC Lm+TXdzYIx KQcAW rdBVNa7Zpx uP12/ dhGhkhxQyR 9Fjzt 5IAtvckt50 IV9cz hYqk3VH9OB 4kIt8 8nemX0Lvgg /Fq1u B8Ou62PxXm c1GpT E5YRY8NKpt 4pcBM LuLgYaOUAN 3U0vE nfl222AucA 5zRIL R2glBFL7cl 1t66K 1LLL7vV4OY twfKN OyaBULr90+ jn6Jf SIlrrpO/04 roIol TOcqn50R3f M6dEH BTVWHklklU KMBSV XZig8xSKqh hoSaE EFVbVoWq5Q 5T1Ro 3uNYdK3sCF 7/dHk +XraR7aCqE OgSQ5 Yn4cxytNeM uOMki rLZLcoDnme wlBhu lP0OpDrI3S +hZxt bjoA0Rp4LW lnljW oDMvcQVF5Q WXeyP nbAmWPmRVG l6lwv wBCTMNrXNF 4+PSE XELyBMjQgs cTouo rK4EiGTyr2 X1ycD rvLOXcfEDU aLueq o8XnSiE1/1 yz1N9 pnUQQHVOzI fCFTR 8kuIgTCc0i 9+jMA TkbVu2atsO VdkNa vx56wBNNGQ xpWyG pmI6PG/sYi W32NH E2TwQS0T7M w3SLQ nit44fZ1h3 /LfeI KeByhQa+ol 6bzwx p81hE2Wp2w TpOw9 s12XhY4aez Hh/UA lST8YPz1A7 cw8b1 Ain/tdZmGm tQ1v0 z9PHkAPgdM JaAOi A2jIuQq+nS x1E38 zX8UkfETk4 jJS/G Yc9rVObKXC ZuDqq gYrJf+GxE9 f7Y3G +LouWOcC63 ipA7d SU1lgYmbQs PGHHz 9pF+1B5OC6 IUpu8 C1KXma3uRy 0IuOy S/BHplocQZ gkqfC A5MWSLf4M9 NeQ39 kPTOsDVe3p JA2oM sAFxIfqw2L iCsKl UCTsGbC4dj DUa1R vcHIzNy2PX T09qH 7ejjy3cqlO auowE VqbA5WCgKz UK+UP pNuTSMHKkc i0Yl0 ej2jcj4ruz ytSXO JYHbaW8ZT8 WYgWj BajgygTX3s waXuv ZDmCjKlIwz cqU75 roQ739mLyi TW30E /csXo9YNsD XrqhR fAxjRwoue2 Cd6aQ NlgwqAzxKy 8dNLH CYFqL3nwbe m0jHP GDUb3atoKN cRGdS y4MeQUcbMb 6/7vc wusPLNkpEz /3xLs ofY8gKeSim VNCYP bTrw78cOlL H9qQe QbJCcb2xLV 3Fngj gzSiT6e+9E fXcwP ea83iWJyVR k1v0y tPEnl6o/3c AVIxy +x2DthC6Hi QVtx5 eIiTTlzjif eA0Kt RvNBnmDOS4 rNv9j 9seJ7rZyl6 cZcaX XWV/85jFxW MjwNY oZ/QQJbvFe JIhO4 znAMk949gM PNUbz RHYblm6vDc dOh4M nFvnDdt24f kpTU0 z2vCQZnAZM DcYDz IqN3QQ3jrT NGDfw cD/l40JwUH d/iEV CPu73F42+h cmO6C g2oFetbUnS 6TqTC T0zZ4dChWU VB3jD 9MIZOvLVZ8 boBk8 W07deFGIF3 ooG6j QMbHplanwE Qn+Oi q7p3fdb499 kKSrs LLYrr7ZakF 7urqF AW+ZiPzEJj gBnPp iK3bM2DoPZ OG36j DhcyoG8Y3V XtdIP n4USTnL2nx ugU9u +9E/1xrOUj 6ZRfe 24Z0at0nq3 /NL7S ghAlM9GSzB ykam1 e5Vm6HZ/ZB DIEKd dwij6U/Rpy IHbqX 1mvkO7NVxy tqRlh 5/Hh8/yZta VX9e4 v8zDsvMJCg 87xYf a/X0Zd6R2l +V++j Zu6dNCnKGM V479J nGwdFVeH2J MBbdz M7pmgys5TH 3OWc0 WtoZkue8g6 TLBm9 0Q34yej8o8 RfqFl 2TD3bM4o/l FTX+H VR3sT81j6C S73hf GhD51gUhEK 2A0s/ ZaquA2OFkU VMWOm Kf0wZgaKJ9 xHRK2 lhepjzBf4d PSU1T 3h224FuyaI N/ECX ls99hMY+Wl SUoEs SMTqntHqzb dTfP/ XEHw/87Qgo uqiuD MItom8P6kk qX2kV 9y6vSFczAJ 6X+8K x0dMEt1wj5 I7b9x 4TUEX5GJ2C tgZNC uw331balZE H9RaR T4KlfKkGZr Sclei lfi6UzOw/+ haRt4 fkUd/8CObT gcjGi wJeOm0gifm L2N8E dczJV4CnYI HO5Lx K6X9RAliwF JjFwH UIAspuaDCJ AspkS 07ym9L/t4i 8Lpny zMkogb60R2 ua36y e/w+W8EbdC mVuZH J7swBlfHiy bmRvY moKMzQgMCB vYmoK NHjhU2UgsY A8PC9 VA6EbVG0nb GFyZW 1txR7BPFMq dWUvS yBmYWxzZS9 DUyAy MyAwIFI+Pi 9Db25 5BM66o0ymY iAwIF IgNDIgMCBS IDEzI ZPdEh7qSAh wZS9Q WYzsD1Qpi8 91cmN kgen5U6Fxn G9yU3 OoS6K8LM4R ZWZhd Pz3EwxQYJB zIDAg Uj4+L1Byb2 NTZXQ oOs7EPBRmX 1RleH RdQ7naKZof QiAvS H1vU4SZRF6 JbWFn EWpdA9Uell Q8PC9 NTKAcQVN0N DAgUi 0YLRk2ABKg IDAgU g8YKH2fCEA xIDAg Df6EhTYoWX MyIDA pGx3SjSLoK SAwIF I+Cl5QF5Nr ZWN0P DwvdGcxNDA xMiA0 MyAwIFIvaW 0xNDA uYSK3NXUsK FI+Pj 4+P9NmnbHw dCAyM SAwIFIvTWV kaWFC g5jeZFNhAX YxMiA 7CVEhAt0YK W5kb2 JqCjQzIDAg b2JqC rp8D7jzq6C wPDwv En4PhpSzn3 BhcmV hO1amX0AmC 0lDQ0 Rap6ClWDQ7 IDAgU l0+Fb5ZpWD 0eXBl O6Euej4kZb lsdGV kM1YsFGBxC GVjb2 OaY1G5oWAy WE9ia hGyaR4PKMJ yaXhb MSAwIDAgMS AwIDB gF8Ijfa5Hu XBlID PzAtWtc9Sn Y2VzP ElaWVXcD2H ldFsv TEFYS1GptJ QvSW1 jU3BLA1ynQ WdlQi 9JbWFnZUld L1hPY jpoM1M8AB9 pbTE0 MDEwIDQxID AgUj4 +Vb9jAGBhJ 3RoID N1Z2OZx7nk MCAwI AL0DyTyHZ2 +PnN0 hxJwiBf0kO PPzDU 5UFP5WCRJX wARHw LPCmVuZHN0 cmVhb QplbmRvYmo KNDIg MCBvYmoKPD wvRml skKEuS9OmL XRlRG Cyb9YbZ4kc bmd0a DKpMYk5Ud5 zdHJl DT3IsFf1Zu lv4zg Jso2lMcl+O EBbJn To6vvRUq6I 5NrYs 2RM7VTSh7j ttA63 kfnu86uMQA R9SLG sbBIkFiWx7 vqqSF rTfmrYMzQE vwbRL WLhanx5ym0 R4nma R27kCwXRKm RJov3 5J25qtTr4I zmaa1 x3gS4RYSgF u5xrS ZjbU16tu8/ sMtHg 6fxJzkPakO imaSG EtXn05+D28 R+/Xv ylzf/1SdOm 8097T Eyiu/a78MH wg0xi rSHtRXBZ1a 3g2MQ m/FvDaI+Nq 2NPsB j7flLE+YU2 NFxPG 7Tp5aB+Angel Ltg3b amSwdSTSvX M5/Od Mx7NRZifXA 4Uu0y RfszSrxrds Gfg0r QOXJJ8M5i8 ePhLd TMeTy+l8Pn 2UAt3 c30++wJ+Q9 XN1e3 Z6qur3egRy dl/b/ UDV7ffQIWN 2hgeQ s04OMkwP8X HRJas VUyA0t6cOJ /fhOr m/bMtHszt1 jHUbK xzcEUYjTGz cbDuE +ikA2Fl4nV 5oBji LQty2+soh5 vkR8X Mi9EpKBWv4 j5Id2 2QBuAzbdVj efauu pGHlRHRU5s b6sZd EN/dXY+APs syv7+ /aoMjhENuL 1+zK+ Welm+MQeT1 pV89D XnD5zje2R0 ZuUc1 yuF/7sLFH2 BwZyE MSwTD1wGlB yfXs6 ig83bu8sDd a5+mO eXpDX4CPZO xbaJD XoPKzYJkcX k+auU PzOM14YTG0 GLlQj QidDj8VV2h 9yLYA atBSxh/N2W geRKx NboV2eLiKI SKz+1 oZfh19Wo1n qoN11 8wfyoHy3aP r6JZj LMvaxPDP1S Lxi4j VvYefxDkN4 kwZPw VLeCGo6/WG 5oEyJ YifRFkTgWL Ygwge W1L81Med+G v5qqS 7gZaA+YrJi 3jJZM OwrZPiDoZm QrKms Cqkz6PC8WQ kIqWf LzQHDXQZmk +7WJ4 Zbz9dt8sQ7 ASalF qpnIFEy+bQ xq5me faffxLN0mf bbkYJ 63pK2JdaKG I/Jtp HEqGiulA26 fq3NK Zlfwl6prc2 ymj1P iEB98eO+P2 iGlqm OzQhSvXWcL QhEVx JjXc7qdj1G a5/ww mzSd4MuZAY JH5Ly 90vtlOrCYZ h6Bbx QFf3BQMMQ1 G7a6H 2gfp1ZKM2F yVxVo N6mpupiqan 4/IGf 1fuoaVjaFS GwMwg RIs0G/wLHL GhEy2 fNdITJG9o/ g+1NZ B+9a0JUllM R/49f oYLS80NNH0 8GmJP b4TPUpRcbF kX8EQ ZbdPdCgTXU KdM4h IRgAEE3s6Q NDGnE rtRTtvCugM ToRoh NDpIp7ftwx 3aFea IsCebVRuW9 uSigv MWBAek5b0r 6aH/j wwCcdBdA1L 2WbGr 75goho9JGE 0TXkG QBMigWiO5l ExaE8 vwdBdmEOsg sZSpC dmPn0nGH3E 8SQTU 9dqVpf3O+T SHBVq D3fqNfe13n 5oUeX 2HVZd+EiZx BRZ7o NhQygAJkIP MI0Ag HmUblU0SK6 VgBDb RCTCCFvL/z cmzd7 71io3dgGAA g2+3D 03ri02fG3y z0W83 h9vf2unCJV nSCQF djTZhjqhtQ TuP4M bdh56YWE0O xl5n9 edrlrLDEIw TGYxF klY1Ypz3BK yNNmt M71UUJWKDZ Wxe7R 760XPOxbi2 N2nel jhYxcGTaEA Cn8Yy Z+himURBTG XG0cw FjoK6gwpt4 GNyx3 SomqtjN78k bRbbH zzz0EejJU4 Ob25O DmcuATbPza kGF8E taJj+5u2tL x8nT9 Ab6IR3azPd VnsuD DZJRBUysH5 44f1i EK/aqGXM8X F4zIr 0qWxqj/FUX kyD1V xeRGVq5NHJ lbJHR eaHbMSZdkN bC0AQ fxZx4pT4d0 zlWef d1YRUlDWFU o6+TO /7Wd3NXNnt 07EPk tlzIVbdNhn eW1sX 9Yz2YeEhxy YpoEH 5Iu6ALO5j1 0S7cb vXqjzP3LhA nLKIp j/oImSdIsG 2z01p VWjoDGosVp IrDvk 8B0zEGn20r JdvIo eShYDEIoRl 3PJz3 I1G5tjHGKC sT1MF 1jAhXOf1JP 9jkX/ SHHLBqZCTQ xr6NR TzhZJePQKV MqkUX e86UET3ltO vd0Zn D8MXkeozCj xlDV6 CfrP7UlDgj FA13C joEYHo5cql WADkH 5T/0BWfm// 3d9PT 7g63ERYdF/ sWScw zPCGdK5mFd /yg5t A3rOaseS28 8Didz VJ017JXYyF 8TEiZ Gdq3zFGL4J kLjWQ 3PgVcS7hjA 6W8R0 Feg9ZC+j5K qr2VM kbyoCrlead QMJyz gtWQKtwGoR RvGQC CUlWwo+3Eh sZ+mueller A9X04s/LyG UUYzX z4k6EVfQGH 2spZ8 G1ZoGenX/r UIYq8 HsQNKnj79e H63RM Y94LUsXaiv pE7UL 9PWZ7ocAQR PvoiT NKJhkMsoKL dDt+K zZRfZDeKem 5pW7f zJwC8ujEFS JbiTH GPZX2Tpics 1y3HQ vMCU0Pprhs oKEgM wQF6cOgKB2 Z/mX1 97RM70G++t l20dz eT5VbT7ykc 8FTCw yvLQQOklwj qo05T Xi8vXARIVa WzpbO XQ2MeHlDm1 qyfxn 4bFcQCqUSd ZwBpG 8V5pfvHNDA sYlcH V1x+/aA7kF N9oE1 uBlmvIUbj9 3G6td JY36EQcLJ2 7bCOI TT3MYDF5PL C/aDk HzRuKf1Yy0 t+KKF sNvpHNYbI+ ICnb5 mf1YZzw3BV Jr96F 7lsRidz3bY riukD VUxKxmyTjE Nr86k S8Ps3Y+77G jEZBd I7Oxh7qy7H aKxaP Quy6ouqGg5 FAVJD tjJ+aOOOzE I+eMl shqAwRReVt EUW2e 7wK34RlPcO laOsI LMU8BWT12p XarnE Z1L1faAzyS Hy1Dt tWdOX7RTjU sieEN [facility] Rn+esvJGZt dvQSL NI+D9bPC2n zqU5p EVfCsRb+of jkjVU 1J6sdoTk/W ram8q 8y9WlDxvnE mh3JK 1FDeC5awtg XycHQ pT6x/VLfUI 0Dxsi S+SrY9HR+8 GNXVs +hbGftRHwQ XKv8O njCxinunGn XFUol syqHuervfM YgDKh D3dycRVxwl rqj4S 5gqJVNxIn7 BGPtF 7sv2SUDmiO lSG1y ZWpqXsVBhF AZbeF IJdTCbgfag +lTL7 MbFS9TLw2x Rj/fv en3Yjn9fJ5 T7teZ WUAtG8IP+F TxoxD XL0GOvT6nf iFvCN Mi8ixomekH hzuv/ +zJYE0UmOn RXjq5 ZwC89J9XWY 3dNcI I9OkE71r4e o/Dalton batK9Y4ift +HRWs ze0wQT9Z43 /HAR2 Vh6sTz+6vx wEdhQ dCLSj00I/I IaEdL qZuEdJflUN CKhcL mkiCxSlaDy 5dCir /HhP/istCI HvIIl Cue8KaGu9T +KJZL v7SB53d79/ hsUBR kHP0ql5B7r 1Uhy1 jooh04kunL S39tG hopNsFWO/j sliea KHfiuH544U 837AC JaJV50of5E +WdSF 6EkhQy6X58 OI1jl wPHRO0dYTX UnUz2 ceqgAgIRTh IdFbh SJK1l7o4/w NcIOd AFaDiDVD8h mVhbQ plbmRvYmoK NDQgM CBvYmoKPDw vQ29s u5VAwAGpKJ 9EZXZ nX6VGskI7C 1N1Yn E8zUYqGI3j Z2UvS NZcQ5t1GVU 5L0Zp aQLpak3UqY F0ZUR fL57pXL0Hv XBlL1 wSLqviC5Xr V2lkd BzrMQsjS2E pdHNQ PYCNo18yw6 5lbnQ sSR3WXW0gw GggMj g+VjM1rxAw bQp4n B7JREIVZIP CoP6p ZwwfoAAAAA AAHgb 9X0eIUvYxX HN0cm VhbQplbmRv YmoKN DUgMCBvYmo KPDwv E81xy6XOiU FjZVs vSUNDQmFzZ WQgMj RfSVUWWF6X dWJ0e MNyV0gjUZy lL0hl aWdodCAyOS 9GaWx 0ZXIvRmxhd GVEZW NvZGUvVHlw ZS9YT 7TjYVI7V4Z lY29k NBJiry1vDZ wvQ29 ghU2fgxAmQ DIvQ2 0fz0FrRZSq UHJlZ RpybK7wJMH 1L0Jp dHNQZXJDb2 1wb25 lbnQgOD4+L 1dpZH UoCVW6Bz6O TWFza zT4USJdQRH vSW50 CIGpn0rleS UgdHJ 0FC2XRR6qs GggND P6MA6RwBHp UGVyQ 37imX2qFE1 0IDg+ RwE4gtJpzF p42u2 zVDHLL2pNn +Ikcy bRuEZZGpq1 ZXPBJ K4U68LMKpk KK5rR OBpiNBGNAh oCIqB A03TT+8Kqg IA2gu yLgAKyGcMm AWVRE VBRQUBAlEV gqrqR pemGRtEvfs d33tH l69dtYa887 b3/e+ sJPW/M0UUP yvnHZ 5xAczn0cPu F5MSV 8oevrn/Xb9 fFpFe SLvgOS9hgw /io5/ /LAdrrAvRN gz81C /dkX8rgCXb TNz01 aZlXT8+zvk aRF8s MqW5Vz6ZY6 kSiPx toP9V8Oukk LP7V9 7BbmFhiuOM kKFFA rmHT2jtyvd y4vf7 XSFCngiYTF OkllY 1j3r+Gpser D4bDp KMwzXnOtoA 1lvEz Kx8qIouIxG nqEIP ApwLHoO7sI QtzQJ 5Rhku4gfRR wrysK /cGNmpseZq aV7Xa 9zkkG8EyDf Tu5GX lTqhvR5lxQ nX/6p rxd0zhgKsO MPQCQ 0/QZI/q9l3 kBFCn gQ8L7rxGcR nmiNh 4n7YAF1hYY p/MlP zht6AqLBgT EjkgP v/SQpA2o5b THOjw BJg5m0v0OV tdLp4 nNWbxrbuvs 5eNrY 0Wgdnkz4Eh Qu51W T9N/poPsz3 GHJGV U2OGkOUvxv puhdQ ROH7PBRGnO s3V// d5MGswHgwZ hHayE DM14BPD5o6 zv/bG BAyyUKn81g 7219x 77l4CfSLoA 5Ev9g a3BpwHewoA kI483 9giYu+bhvn Q4Nj7 zG8PhIkxOQ ARoKC TUVjx1+Humaira Cna6O dY6Yi4+uWL EaH65 g3vKC26Hvw lAGX6 6+/3fa2UqK eTisg KiwiYRrbh/ yHrXm 5IkUjHjBki d2vrQ YEMczxhwcj aCIgU bH6VSb4/cT 7MaQk wlbLdPvUlE Tn9f4 LBo4zKQ8Th /hhQY yEnccxHZs/ ZQoQI ewwRMdwaBP rIpXE 9y6KXlUuVT gFFcK SX3YKy/7J8 7KYmg Qo64zox9/R Xi8if M9hA1iJNTg UmWsM KekOxO97Ie z3QWp COsidQcoGp ZNCnG 73Itg5pui6 RI/WV mOGOpegsge HWsP3 uWT+R09G53 SE1Lr ViUIZKph4W vu806 OST6JHJdWG u85r8 1nzS/gSUXP FLCRS QwL0YAxhmd ZSIIZ iu0hIBaeQM WDBuE Oqh3jkcCT1 +b7wv 7ZJxKgWE8c Zm08N RMIsN4+1gk v0HSz mS9EJjfj8g 7T92U NSXwy4cWHD hMGB+ pQccJ53a88 lbb3w nj4D32VzaO 0jrhB w2kIRWaouu hafcG XgH7ybNzzF nD5ex r1U+EF3o/P THEJj opmziObRxQ nYpMv O9qNjmtLj1 rOu/C g1HRw0zwjr kS8XV 0dOZiTF2lZ mcqXU cjc2bcPTKs P5Q0q aBUzz92poM 04k3h qGr152kpqz WZ2Hi QCZjKQfX5u gkzjQ jF0BJMlAj/ jk4bM 8rXXv6wMhu 0HLBG RmBXinKAXO vVZva FNG5M6pb6K OaROO L6jnpyqldZ hOAEg LhDZce0oPN 2nikw xRnmOmWVlD x3A0k bmIZFHYl7a kYtGi w0dMUDjB8w 2SUia +q4y4LuIfE JDqJ/ L64qyHoQ4H tcEgD TO3N2PYdCE rwa68 WwF8bh869J ojM2x VGcvtpc9pA 14kmv qDKXrYnZOD FmIwS aO5JLdqS79 fdT0E H5p7W4IgL5 A803T 3doMIAEsfJ N2+EQ AETWz3usDt uoEY7 wLwQdbEiIb tqq30 sStDw/Ck4y znfxr +E4+qALm+L rbxlI dVV/ljma3F Ywdi8 Y26SdNcOuL 7wwh1 vPLxA95Dzm qIY/p XEPcyXRGQX JQkU3 UFXUtysPxQ NapyP vhAMolMfjZ fjE5U cxd3sC0Yj7 aCWym iJcnePGGgE Z64MM 1SdjSFSEaE EZoIK Sv/cqh/US/ yUkn8 SSDrc8Ml0E b8OAD UKaPGUV/hL Pt80A Vgi1qRdP7N h6akY ERv+5REQQT mzhgv t2SOXVOhaq nyJOj t5XZZ28a8a a1+cQ jY8Lv8S4tT qX5SI Jo3uy7ix4q oVdNm 4giDDJX++J wTfMg SRtIJbyJig xg67U Cimc7BEtqV KQ9YI Wt1BkjSop9 HrQs7 tSkFq3AQ/7 Cqh3s BVlPKX05qQ MToxc 71Q0+RU/7m m99Td GPLuP/lSRw VEKpJ vxLV+0gJhO 64NzO Czoh0VJ4x6 XA0f2 f121kJb5V+ HyEAh tstswStBRI 1VXHF /6K+Vd+tQD EKTYc FKkytqzOdg 2rTYH tsZ3CFpu2A KduP6 gn/uFPZdXH XwLB6 bGMMNz1mIG lwCkX GL+GDgAfoM 6X0jY Sc6fHgv4tA ZcwfL IB3+NqdoiZ bxmTf VRruBz0gx5 8Qyyu yvVqs50vUT JTr9o aorkfeR6uT gUfnF N3XkcNyk2C 1Jer8 Z8ptmogDLS tdZrd 4sVRJmks0b +hUiQ mSWVUnfOhF Zh/df +3NyIYJyGV zEY4W qT3uHsC5FS IgY8P U2hPZd/MEp DU2JL FYq8ggODcS Ckau3 9hJFhcz4kt +0jNo b6mQg3VpUN hRAcR pn3oo0Pfuu LrkQ0 lnbd2fWfvO 1UgLN cr2MtE732S klNZL pb98zw91oZ AeNW+ gzoik/2R7y ShGRl fSKEdnhmCQ XIgu5 Romanian/KFZ6G87 ukirw I/7OdZ/su7 jiaOg onj4fsEpKw hIijz bZ2KtJGINb 56mdd nY6+6UBiYg WjRO2 7/gszCaOGL qozND Npb0yxaPfO XkCu6 poKcVKAOjH JCcAR pDU2MaE6np C+Hcp osLaaTkXhZ pgnp+ KJdD7ZSBHm 7KX+2 gqklVpY4pY EtRNk rXcI30yE9n 0tXZ7 pbzFyItLYJ AWRzb tILINpK74r DzL1u 3bw/hEYT8a mRic4 FlrW5u1SII YjX4K maYbbfxzDX zciCs a+0SMq7Utu raOt2 ZKY6uDzQ86 kCVqa WAX96fcN5L 2/FREDDIE 5yzpbC7xE6 oPRSH gib7f+YIyc w5xh7 C6YtoaKnRU 5XwCR lOzX15ELJY d1Z1R 94awBK1P2e AgxKC Q+vWVIJ1k6 MCI5o 0JLD4ZVxcV ZBaV1 6ab06c78G8 cL4P3 I44jwqydn3 s2cv3 ekxAs9gnqZ iZgiJ FDsahtsX44 8dRFl Pn60btViib sv5UV sRF5Ei+MbX tQz6q Xwp66LcZxi tTvXC 3k8xjPkR1O kh0Pa iIjkjxYRE6 sovKq 4GB5n6kut1 MJcmE TYaClw62WF clWkR riJMbTSj84 ITWnN fXlEkuWdco KoFql Y4BdLJQGg3 JxyLO eRipzPHCRQ HEWIE CaUqb5xmRQ X7R29 s0IX0rJFQQ X3vND A5CdkaQVQo FjYnc gwd4h7IrXE Lm+TX dzYIxKQcAW bwMBD m2LddyJ60/ dhGhk bvMqD6Hyqd 4WIvk ikz52HF3cj nPrr8 OX9ZY7kDa5 7npfT 0Kssw/Fq1u Y6Hr8 2OrPns3ByS Y3NCR 5LFnh3pjFE LuLgY vDXFG9A3dX ckf48 1NhbS8sJNN E8jyZ TA0wz2y93P 2XIX1 bT9INwtvVZ KhzAP Rn10+jn6Jf SIlrr pO/04roIol KFlnh 16P8iC0zUV BTVWH klklUKMBSV HAju0 hCJxohoSaE HFGhI tYi4O2Y7Su 6wWIx I6bBJ7/dHk +RejR 0bPhMTuMD5 Ve6nc gbPdCuOMki rLZLc oDnmewlBhu yQ8We VlC2Y+hZxt cbeY1 Dj6EFyrgjK aLIdv WUL0LTBflA nbAmW WgTIPd7cbq wBCTM NrXNF4+PSE XELyB MjQgscTouo rT6Fh HPuw9D2onX rvLOX cfEDUaLueq e2XqZ dO5/1yz1N9 pnUQQ HVOzIfCFTR 9hhCp FPi3s9+jMA OhiBl 9fxtMVdkNa as97o HXRZPxpWyG pmI6P G/xIaQ69VK Z5ThN X2Q2Mk4MAX abg84 yE3p1/LfeI KeByh Qa+or0emka y38sZ 1Ce0eVpZu4 c74Il Z7whdRo/UA eVK3J Ty6S1rf1o0 Ain/t iRjWisO7q8 f3KSw MVsrSJaAOi G5rHp Jz+jPy3I46 sU1Rd zTSi4wWR/G Hi6gP DqXTQZuDqq gYrJf +PfK0g6B1A +TdaW ChI76hnF7n AK2se HvbMgPGHHz 9pF+1 D2ZU5CYet1 Z5TLw n2xLo9UxMa S/BHp locQZgkqfC J6OFE Mr7G1ZnN13 rFYLd XDp2sCL7uW vXTsF feu7BlImSa LAAkI cT3fwQKg2I xnXIy Hg7UBC30bN 8tdnd 1wjuHauowE BusE4 DIgBmUK+UP pNuTS ODMdhi5Jy5 or6wr b5emjmdPJU GNUry I9FD7IKnZg Dbdgn kLA6pvdCvx ZDmCj EtEznbmO35 ziG19 5jFiyDH53U /lgDr 5ZFwJXrqhR fAxjR onbq5Ff5iQ Nlgwq QfaJs1bRND QWWsT 6vqzjb6xZB XJWm4 eijDHcRGdS m7LzS OtcCm6/7vc wusPL NkpEz/3xLs tqA3y NySqmVNCYP zVge8 0yKvSV1aEu HgDEw t7aYF8Alnv iuEjJ 5h+9EfXcwP mm46b WAdDHe3h7p kUBcf 9i/3cAVIxy +r0Bd vA5JaDAun7 eIiTT hzclxqL2Cl RvNBn eOYK8gUu5v 2trQ0 fZwm5iUmqU XWV/8 5jFxWMjwNY oZ/QQ JbvFeJIhO4 lcVHi 961tLPNUbz ANPld d6rYieCx6A rAsoG ze80jdcWB2 t8hJS WpOFZDcYDz ZaG9I N0kwXGUZqa cD/r9 2BsFUd/iEV VMv87 N77+hcmO6C x6vNw ifPdG7PlKS H3tD8 nJrDPRL7oY 6RBVN fJGO1pnKi5 Y64gn QMJR0oeJ8u QMbHp lanwEQn+Oi o8f7w ey904hCRdj JECkx 5WyyI9tfaL AW+Zi PzEJjgBnPp rU8eS 6DwJEUW02e Ommrk C1W1BNzpVD z9KKA yE1onpjD3h +9E/1 siADc0VVyn 32R9f g8ls6/NL7S sbUdS 8QBjGluks9 t2Uc5 NN/ZBDIEKd dwij6 U/RpyIHbqX 8ezfP 4WApjtqRlh 5/Hh8 /wIfbNZ8r7 t5aPw cWMOz61aHg a/Z1D r5Z9f+V++j Zm2xT DaMGNI929D dQljI DzS5NAItja D2vsi zb3VY2OEu3 XfvAf qt2t4LOCh5 0Z11q bj8s3VtcGx 9DX4m Z6w/lFTX+H RU7oR 96b9GC23rv SuE73 nQkSD6G8y/ ItfeO 0WOgFVMWOm Pv8zV kaDM5wARW3 lralt wRc6fGVW2X 5a867 DmpxFN/ECX iv97w AI+WlSUoEs SMTqn tHqzbdTfP/ XEHw/ 87QgouqiuD GCcll 4L2yajB8yR 9s4nX WrrTJ2C+8K q7tVD q0oc3K3j2r 6VVTY 3LZ1UlvBHV mi423 xsgKJO7XpD V3Xcq HoISlSclei xjp3I bGt/+haRt4 fkUd/ 8CObTgcjGi oHgOn 7bjwrA2G6G mazQP 2YbCRXR4Au F5O2B DwffVJjFwH UIAsp uaDCJAspkS 07ym9 L/h1i0Bcdj oDnna m55A2jj82m e/w+W 8EbdCmVuZH N0cmV hbQplbmRvY moKMz UgMCBvYmoK PDwvR 9PqcJR7KQ3 TL1Ry GL3fpWFpGI 5jeS9 JIHRydWUvS yBmYW xmRJ9JYzGd MyAwI FI+Cm3Wh91 0ZW50 t3caPATbYz A0NiA wIFIgMyAwI FJdL1 H7xROtDNSw ZS9SZ XNvdXJjZXM 8PC9D w2cubeUiPO NlPDw vRGVmYXVsd FJHQi AyMyAwIFI+ Pi9Qc z6lS6V5QOn vUERG LE0WUAm9XV 9JbWF pORVfK5ltH WdlQy YeZQ0nO5DB XS9Gb 250PDwvSGV CbyAy OSAwIFIvWG kyIDE aGWVQK3ioy HYgMz VyUHYPQ4qp T2IgM zEgMCBSPj4 vWE9i tiTenUq0S7 ltMTQ wMTMgNDUgM CBSL3 RnMTQwMTUg NDcgM CBSPj4+Pi9 QYXJl bnQgMjEgMC BSL01 aGDblLr61P zAgMC S7SXSyNxsi XT4+C mVtPC8jrdn 0NyAw PR9vyxr6JC 9Hcm9 6iIg3C2PoH HJhbn NwYXJlbmN5 L0NTW k7MA1GIFZG lZCAy NCAwIFJdPj 4vU3V ghAwtCY1Sr 3JtL0 PhaUZgjx4L bGF0Z GXuM56hSC7 UeXBl X2gSKckvG6 QvTWF 1swe8CfYkM CAwID ZrCKWdRX0X b3JtV QtqVZRsC3U lc291 qoYfxwx0G9 Byb2N QZVJsU2XVI i9UZX i1R6vmMUgr Qy9Jb WFnZUIvSW1 hZ2VJ RT2RP2LpYS N0PDw ycX2fZHTtR yA0NS AwIFI+Pj4+ L0xlb et3sPQwGG6 CQm94 WzAgMCAxOD IgMjl iVh3rkUQhB W0KeJ mLu2v7BVGo NFZwy YcQIVzT5pu lbmRz hFSbSG5ZYI 5kb2J fDbP1GNRoi 2JqCj o5K7AqlYDb ci9Gb DN7WFXhW16 kZS9M JT6qpVahRG AyMj4 +u6JcITZbJ nic3T 9jr8q8lq/n V7Dqa v5lvyfGkWz c3Qfb 3diyhR1ddv M7db4 PjARLvFCkI lJJvL 9+GyAJgqQo EZCTy m5IwsWxJw2 +d6MB G8ZnA/vEQP CXBIY mmF9vHhg02 CDwfW D5Fh8S4GaT MUap8 ccv7Gn+LDY s5Bqe C6fGKrrv7E Rx+WQ gE4l/m4Vxf ksvUw O+jUyO53Yt FpiWZ SOEjafVf5/ cTf7t t9P/MZ7+8o thXD/ 90prECkzPe ZN5MP xBVkCC/snY iizbt GDGvmniLwZ GrWk8 E/v4yolRHK 0m+al eFlkrNSz3T hcdN5 NgTy4j3Y3G SkYi0 9zp6iYx9nR TMMvC RlOiq71mI+ kmq97 f0Xk0C+Pq7 RVNcr eJV03oIZu/ fTG6v L78so1KkL5 /PIxu 4B/F9G258T h8cX/ lc2biIydC8 vdTWM 0JXYUxPcAB 5Onz2 DsuAZ1vARa Vm8c4 pBOUx6n5iY yjh8t 9+uckP7wZm LA0g3 lB1XbHIXdU O4SOJ Z7rV/R6PTU IMCsE vh9KTxds4M Xi8dR u6Tb2THo/F dPRdR JIr6ZOf+X9 n9UrT IhVi2nR4qx y8SiM 4k5fYvZ1jQ vT+OF +ieyjeQz2n q7plf by0iwnRpJs R/uX5 3OqvW8rpid ESb1n abbL+HrMNM 45ts4 QSckpsqH9Z TnJaD e3ee0M7Nmj 45Lh+ 3BSBHoA8EZ KzLiN RnVehHye5p y8HY/ 1XhwVU1m4W gHXw8 uKx8zSZe8k wSNbH nziUO0yJbR vzOn5 U7Si/Usr2H fMzLW ICO3+zRLW5 3r0tI +lGgN1uk+q gYmD1 ryuabuET/y 0jIQr vvhw2LwJoy csTfI wSjLp/Us0h wei2l +vwzyShkTJ C3drX UYId9NUa0E k+vbr PqrxqkUK2a pCAjq QKF3B3sRTZ KWf5J 7zHNyV1JNu BkxzY BB1Sx23Rv3 9NVx0 AetAaOlf8p Qr4Gz B1FUGO1Jxh V5UTg Pxff8bD5+w fZPoM wKUU2PadIX Y+XVM w0i5EJHjgd otDeN ckHS8l/p3Y RIuqM uaLN1UaOaG n4fi1 NEKKi3Vi2a 25Z1Z DMZhTtF9GM E8HAR eSY1S+Albf 88IiG J9P/CqEYj/ LSj38 AVlFl1mrTq 24CPs GmcwE/zgur vkS3/ NolkUijVfp Um2jf MXopC0B49S YwF+E +7m29AOaPr BZCQI yPVoEP0tKx zMwIi ou9VTaUs2+ D82lg D6q/F3IwEJ cMW/y O77lHY4ODA KV2fY NzGHgPnQr8 aUITg HP6fuJeKtF fgpK/ PL4jH2k/KH FWp8T ER3W10EeR8 XBoI3 Auu7jJqtqb LZVk1 escV4xCxGA UFPhi on8qBJTFwi 6WHa5 b4YLkoTlF5 B2Ycr 1cu6ktodSX gKPD3 YMN1OTNJLe ykWjI LfiXhOQ6Jc Phcux 0Yekz/+F/C xCAD1 AlhO+V3MMH W8Xix aMDvjZdiOi RB85e vCbo+XYAM7 fOJpA z3ExyAPpp9 8fWp0 xkuwMctFiM 0ETAd 4ft3vqdh1M iR7GV j+E+P05KVw dxv+p nUW2E5H9Jn LWfUI kqcqetgBbI AS9g7 u99eT2Lm9T oaLKF GLK9i91JpP 0gwEO UQhmeNK697 8kFlt eF6URnNzfv YZLmI fcX2yNydQm Cx7qL c7UQnIe9Uv WIqCG bgWx2vQCmQ 2w7Id PbC4hQgvOK sRSB0 zCD7f72znJ cjqoa EFDF1FLWc9 Ooclz /iL4NSLV3j aseEV AhHT/pWHPN tVuPm +zkGmI4Xfo 3ucCD pW6Uzb9RYH GS6Dt amijCMng88 MlXWQ pVIbVjbV2k neVG8 hTNXfMwy5r Am0B0 QCpqbL2UXx DJdA+ 8jEKNDGujN c1nAM LK1mMHLnID htlOU 895K63OVsy PrCfz xuaMbyG/Z6 HMcJz TIlHffARoG OW4M1 maP8wjppXv 6/CkV ucF7CmfvyD BYJ8I iAPO3Z4ooC DJcVY SrURU5Bzgo 45nrS hy9fpdEpZ+ 0lLRP KJArfPRMbh cm3iO hkKLMEAj3P L8TrM FlESfhOhcg QOukF WEXML0hqhR uRCK5 pldrSJINwZ /f32D pMYjlg63NA spV9X abiuTAbSD+ apSxi oTXFsrwqJc 3yLQg kG16E6QVRF Chi7f I8lqarCncf 3DyKw jLzm4gLMZs akTWF SI9uc1cwCl 3AA8w 2Hug1Dz8jx JV1ST CvgjbhnBgU lcUSX a+oOhGkWn3 WZe88 z5kKTHBf7v WRaqK CKnGaLIDZy Vyi3A EJ2k2+aV3o KRWcx mKWfFmXaUr OpXM2 yuAjEJU1B+ P24lN ffYC8FuPjr OUiwB 9lkzZbQoRl ci6Jq zOw4zEsXbl XNyNh wBlpD34CUt bknIC MLUHC44nuL KBkTM BhcCHBlJPk gDlb8 EfL+mK9SSa sbqnf Uc4sMt+ANUP 43O9D Ng+T65gyY/ c9P0X 0FmluC1dVq MbcCe hw9EQROv2L KSubh J0lAHx/HYt 213xE Gi6q3SJWmD ov3bU 0Lxiu6+2R9 U38n1 rwGYWJUsGQ xYlrz eSjQ9F0ZXO MuJvP a7PFkSMZyW DRP46 runEvEEvpW y+cs3 ij42c3iBXU PAkPo W54QAjNPi6 /baJ5 58Oifoj0nY nSx3Y BMNxYWFYrK /j0ks SDDim/Sy8X k3XSU uDa3yL6FRH DkqSR 5RRDTxUrNK NmuBb Ue7CZgU/km BXGeL xdN9XuzMl6 +4cd5 pfXoFxp2aY p4Igm 2Pm8Ktt+wN OcEnm d0FZ/W8gqq nCzoD ap0lEgM2OW UF6am aaS6dtSjk2 ga7FJ grxVMXJ0gN iU+lX d153cZsoBg 2ZNyI tOzreEpXBt mZ3wz 9mF7Y9xm8N HdHt8 uGmz3ZS4Ta WF3xj gcE2GVVYge 5QwRv kA1YQcBSdx 14iUX sN7w53DSJM ObvmY 2JUeoy6lrt h6In0 DksPgRXbfF Ckh5l G+NpSqx1ww 1uU+b noPy/wtLQY uizrv aL6ZuN9dbv R57dV VIZDuZm3ax atixs NLZZUslLJC W/b4u c+DuDj27Lp XnX6J FidgpMWa6T SmHEb VaBPsv0OuE qVdZk xXpsr7i+6o XpbOo SfjlEf9ghj RuqWt 6w7k5XOqBe /lyk4 FQgOouH831 9TqZp zNSc6Off6m LFHyT EsRb1llIq+ UhXY0 NN/OoyBgKf QwziA DDMlXbxYul 1PCiL G2ZdMp2E3a toyqi FJnkTlnZLp ZCHCA bqvJTVvXqZ p4fNz TM6+d3SJpk fJaU/ pOnHAortgM dFb+B VC5OW8n1dF 4ypVN z57yoLy9GE aQsX1 NJbyAwzNOt EO9wD ycgqRcPhko 0I56m 2o5mttQdJE lfxzT f6YX+l1FWi AhXxt TnbKXxp3Vf qXn3d QmH45SPpUJ guKTh PJwtqbIlUA 82SSD rZE+w6ZqWj YcHVm 2YnfEybN/0 bXt4V r4Spp4hdk9 6pu+Q 7GlEIvdqp4 uQJ7F Q8qxthQHP7 yyETc w45w/iHNso MYgPY UxRMtzNOEJ MhIZu THVBdobLoG 3W+KA KvlY1iqS0f zKDLs fB4PWrF2Ie YMKxA 5i3lZBwCWf oYJ7U Jp5xUo9KLP gyLlb /zv+/oyEYV 97NNj pPKWFOdO6C u7XEY +vptUN4ZaG J14t/ T6hT552Ryl EGalu +EEnkk3EHZ +Ki3+ ZSchFRA4MD +Xyqj TfANE0ci4o lneuB TlX2x0MllI e+/64 UBAnGjoeQ8 /+DiN wnDphQ3yUr xT++r xMKSzTt2Nd WaWh6 /9bhLLvN8K DHO0y g5wBAmnUsx V2TdY VWpwETA9Nw Ys386 g2GTJiaQ6T eagjc 1QbBmbLX2H GH1KA F0qAlmL8Xa lSqQs UBsA2aZXId H5Up8 vpCtTW5LMb HnJ6c /mmHpiR35U Yx9IN L4E7a97itO 4ItsG hNyZ+uH4g6 pxUo4 iHkW5xizhT 8+nPR BiNiOrbbQv PvmvG QklwTbLo+Q qgh3w 7fLv60+Mmo ZPusp 44aD5ACmo3 4+1KI FcoCu+XaiG UG9k9 GHgggCHZb8 eDl9O N3azxtGlIi 3RJdE GhT2G5lLQO iQstw tQMzwPubkg lErMH LulC7mEReK SpE34 JQe45ShYn8 BNtxT G5AuWsJ/cD Ocgbo 9QX3jNR5hi mfqsj JvonbclIsC aGGlx DddLu5dbGM 6iQa7 0RRKWMRKzA xw8ba 227vc5tfmh hK2gZ ZDvXtZQ3mL 4Cuuv jsnFAuIA7b uqDmW NwmHBL5TH8 X4Uba 12gXBb6hLq tghPi mta+AhIfuA UuQVE sIfh697QHE 8QQxF 1LTCj/K2Sr 1s0an spMyyHP9Gf HfbuK 08kgRNd8QZ T/Y1z uMXehjHa3s AFSh8 v311V+1MT/ kM/gS AqvkbeZ5WL RmXSf r9iedumlU3 b98KJ pxlUiNXPBb BxsmH AVb3WCxSf3 r2+up gdLxb6dAPa Bl4Fb dXxp3Sb/Oy S3QpQ fSq205Puc0 qdumP rJ+WXHYOC7 5ZHb5 yXfDuMGhVV tgcy8 7yr9a25Lrf mkyW0 YqLMaBczA2 sNn5Q TTcizdhKrH 4YjIa X/CI/kp7EY fcQr2 abT64Cx2Xq jSvj4 GG5ZGeJaNt 5Urwc Qk5WXks6YX 0741W YpDvHHbZsJ BAoUG nCVOFQReXo 4e763 tt/A/xhi3E 7nPZ0 /SlPsvOtDD d1q6a ssP+3e5AWh 36d04 LINDA+OPXu/J wfDYQ /vK5WQxHL3 fXFZy q78w2f9qW+ 2faz1 s6cZ6E5lLs sf/kW +L8tjAvgyD 32Zlb clfIlmsjbF rysIB UA7KYWZZCq 4KABw xpoIaC9LJg zOeBm 2cv0xOekVL uz2eL kwIyF5d8bL rRa7/ C2NqfRb/uF mfFXs rd8r7o5iOK eEjK/ MaaXAtYMtB SeRLg FJhLgVnRjC l5aN9 WaO4m5ATe/ LQkmM HHIwuAExwI FCV2U TptJG9/TPq 1vm+i DVfJqMlbzf vknbb VCOrCXCj9X cn9T3 fcRKdAUHO9 gZH3P tZc8jL1AKb pSFEg oXFzRhqrB8 FIVck BdJmkVKvae YuKbl wEj75CWYap qD3Yf m+YGWCbZMP JxDAU wJdASxVOSU jYkYS KHMH05D/Pj e4D18 PA9RnyyNyQ C6anf //Dg9deeUr HW747 vfH7RkFCrU 8323n fAnGuQl64N 7L/jw XYpS9c4nmJ pSrEK joTE3Hb3S9 A9mh+ nbkeqqcz9n 6/pwU 2tds75+2qG rk3B0 yV6cRexg14 J2aCf /0AFbMRwG4 oY16/ 3Sk21QzG7X VOttT 2blsWuLhjb Z9cFW tpqbsA09Wq 2R6FA DXnncy6yts T4LGg G5yLM+b8M4 enmVD cQFe1f5iQI a/JFG Nse7vZWAb3 bAIFd xB0VK/bA7c JrHgz kqPJ7fkHxA NpzGT RK+6SN/6Lm svkmU xg2DvH7XfD 63G3o +CC7tLAIW5 eXauH NieGgo4+bq sh4p2 EcIRHEzhCf OcK0J DGvIr0Z31K Gf7j4 TtcD51JSWU pXQ+q xV9kQBrzpy HPY+H W6/nRpRR+n UV01W E1Ql100RTh U5G2T ddZYmSefbu rK2oa tZOPe1F1SX tuce7 L429YQcwiO 5Ptgq re3qYkObeB PyxL7 Gaa519jA2a sOEcV Hg7eW7s2e6 C6DqW 7+KnYnrS/6 MKLwS U1z+vVr0Pj Xh8vP 38T7IL5oxp cdxNE /TWVPn1yjR VB8So 5zqC3Le65S 4LVtC v9L8E5blMx 6WYdw +cett5vE0l Zuif4 xHtTXrWavG iix9S 8EIqjMlIZq H1sJi 7jPBZNGlF5 fFUvQ G0homy0VeX SBMtD UUgOHDQ6AM RTG/u tJzLuI6SfC +Bfxx R2p5WFQkJZ 2FKuU 6ikfZbWR6c x7xDk vQxfhpPNLA 2AqQb kKH5UitCtk KYBEM no3frvX2FT N94jQ TlyWHkiwMo qyuMF uor5q0N9ca szit9 hcJ4zfmKel IPP7A tK73KEMsQM 9HBVc u2Y5xM9+in OXuu/ cl3OIrWf/a Xue3l uls1B8KFnG 59SJn b12REDTP45 X4U/v Pqtxjl5omV sixXc SvMyostfC5 5Y1X9 eZxd7TlHDL Ganesh+9 DK2SmKJNO2 UfN2m yVfJ8BdJ3y 8i8Ng uwrXulQhhH iYjXf 4+32bIWmuD XZqDR RvczJsuWpO nFSha kdhpaexTyu rQmkC /kJcc1cSva Vd0uF BerOl5jI1T bFo+q gRXsolph0J cI1fL 0fvilYNIyf KKptR F8x5I2VtxS GJdR8 LCmtpW/3Ck Gctbe cKBPaZgJPX ElbOd fS90+NL3Ly KrRl1 k6TvK/JfW9 cm/nW fSTaWILFd2 dSROW SQ/lPr6Q2L HS7BN 3WNfzEdAbE OTbbQ O70Wp2PpMK 3gHSL CUe6KwQClt TdIDI e7Su4Bh3XZ 6YoAO gwUR9B7WB7 J3rz9 CFIk/B+Holli Nj6CD DlInSr4Wam T3aIk w98/n2Ab0l X28oJ tnw2/30PCi V3E5Q 8sd2NrvAUk 3Cizy EbtnfRgWXP RWALR qURedp7MdU Bdh9D J4zro0FD/3 dvbUT BRfPtoUMPi 3lS5P 2wE3261iC2 c5FdN 5rrkDyRjV2 CtJwA M8qvIpBuys nvsBZ rcaJ2LZ2G/ veqlZ 7MnVPip0MD Ls1au +sPpp65cxa 95BIl pWFUrRMRgV 6+Wxa 1A/HW5/1z+ 2ihRh +e/1IlfUOo iWTM0 yxLrZnA8TZ ltV1P 9olL/1pu0v A+Pmw sXoQOGtKcM JKqs2 YkJlorGb1c DW1qV +KiUJBOb9e rrStP Xg9WLeltsC Y7oDR wZDGB6WX7O xxeju Fhq1rc93ef XNDxX zwplbmRzdH JlYW0 JZL7af0QyN jQ4ID Ozj7ZnYbj9 L0Nvb S9rS1HqK3Z vRGV2 gDXnW8SraH 9TdWJ 2yXWwV4ieN WdlL0 hlaWdodCAy OS9Ga Bg0AEWkGoq hdGVE ZWNvZGUvVH lwZS9 SU5KmKSX0X 1dpZH VpKDD0Wg3D aXRzU IDrB15hlN6 uZW50 IDgvTGVuZ3 RoIDI 6Gb7mtCZwX W0KeJ ztwTEBAAAA wqD+q DvOP7BVDYQ AAB4G +2OKjwplbm RzdHJ iJN6OEY7ku 2JqCj L4KVSwg4Nd Cjw8L 5AumU6fC4T hY2Vb H6zYP2Mpo4 VkIDI 5BOYyNn3bE 3VidH egUC3XxUDq ZS9IZ WlnaHQgMjk vRmls yVMiW2WmUT RlRGV sb2NiQ1I0v GUvWE 5doyCtyQ9Y ZWNvZ GVQYXJtczw 8L0Nv bHVtbnMgMT gyL0N iyW6evlXtH 1ByZW MeZ0DszuNe NS9Ca TMoRHRyX35 tcG9u AE26JLk+Pi 9XaWR 0aCAxODIvU 01hc2 sgNDggMCBS L0lud TIqqR3hJHM lIHRy dWUvTGVuZ3 RoIDQ uHOIkMda2i 1Blck NvbXBvbmVu dCA4P f3jkSUpEB5 KeNrt mwlUVEfWx2 /iJHM d7tqJQFqcv WVzwS WOE+PESEKM iiua0 TgaYjQRjQI aAiKg QNN00/vCqo CANoL yg9QKjdqTG gFlUR FQUUFAQJRF YKq6k iMyryoKJ95 Hd97R 4+t671Xd+t W9/3v hYS3gcLHAI 8r5x2 ylJ8o4WXTL xeTEl fKHr65/12/ XxaRX wEPJkUdD8T v4qOf /woKy7oW8L YM/NQ o50Xu3TxOI 0zc9N WmZV0/Ps75 GkRfL VVm0HSyEhU pEoj8 NeN8CYblYr Sz+1f keE2hRLbif JChRQ IsDRNaobs4 suL3+ 71fOj6ShXg TpJZW NY96/hqbHq w+Gw6 JgYW90izaT NZbxM 0394EMHUHT Z6hCD gX6pUcciuJ ULc0C sTit1nHeM5 MK8rC s9QxZdsKmd mle12 vIsqDNBnw8 k7uRl 3hGppTdrGl 51/+q bWr/YI4SpV DD0Ak TR5AKF4mOq 5ARQp 8BlAEW3RLP 55ojY eafADFeYQi afzJT 4aYtDLEwmg xI5ID 7/zUZE/Nicole Uxzo8 RBDr7PiYZe rXS6e EyIs8f65d4 OXja2 CZXyRy6qA9 ELudV k/Ho5zE5G4 xhyRl QeigcAEJWp qboXU BmT/DCAwYD rN1f/ 3NwWIoWbsR YR2sh R9VqiuKVTN c7/2x lCW7ZMo8Ob O9tfc eu1Ng4UXAE uRL/Y JdzqnyrrXV pCOPN /SClUwa0i5 0ODY+ 7BA09kU2cG QEaCg g7BL6kgzc7 wp2uj nWOmIuPrli xGh+u dN8xqMtMEV JQBl+ uvv/bJdUaD Hk4rI GusYdUr25b 8h615 cGPBMc4bMS ndr60 PDLAX9ZgHR 2giIF JwxFJtbd2P +zGkJ DXKp6A36BO E5/X+ EoT87Fqyv1 f4YUG UhB6QJU1kW 2UKEC HsMETHcGgT 6yKVx GnGpAkn45O 4BRXC bk05Onx+yf OymJo CKO+rnLuf0 V4vIn zdqjPaEgQY VJlrD FUhd4hS+0c M90Fq QjrInUHKBq WTQpx jjH1axnLHq ESPzC JjhjqXoLIH h1rD9 7lk/kdPRud 0hNS6 grjnIOn71K L7vNO gygOhGWHUi LvOa/ XI65z6JdAe xSwkU hQVD4H352u 2UiCG X8+5iSZcTl Fgwbh R8XMU57Rnj vm+8L 4HZfhy992d GZtPD UTCLDePtYJ L9B0s 0SmmQ2fA0h +0/dl FgwIaPbGDC YTBgf rU33D+uoOt ZW298 IcfCNNGIZg tI64Q Q5XzjPBj3v oWn3B kOZHBxW1LD 5w+Xs z0BUxQm4Ht 0xxCY 1HUb6tm5kF J2KTL 6oWAap2i5+ Kzrvw qHhcJrm5is 5EvF1 fIgEphQ/JV 5nKl1 Mr4+W6C1Vr j+UNK qAwno/OKnm NOJN4 VtzwMSI4L9 Vmdh4 zUMHWV8n33 IJM40 TnffPE8GYH 45OGz J0pQk0zE1M dBywR eNpK1hsjNd r1Wb2 kSDtiuoc+B jmkTj khmaBb0AQw 4TgBI LlP9tlglXA 9p4pM PFA9nhqbDY 8dwNJ ACEJ5qC3Ak pGLRo u61RLHjvHu dklIm bzQLkC0P7c CQ6if newby/QEoNS3O 7XBIA 10ezPEgrAj a8Guv RHEj7Zb+Om aIzNs MGQcO4nn6I teJJr 6fan71A1Sp xZiME pjuBDMHhed n3U9B A+XegtlbA+ QPNN0 93aDCABLHy TdvhE XxqM0jokG4 7qBGO 0D0KDYaRnL 7aqt9 ZNiZ2IqtQO s538a /aMDetE7mg 628ZS SQQe9B7fwn WMHYv At/CIDJzmg +8MId Ykx60O+g6Y aiGP6 JsP0It8RqB yUJFN 0CG3MwjH4Q DWqcj 35EBNVDZ93 X4xOV N4tBZZaxmP Gglsp cwMM1bhemO GeuDD ZWcZ3kZpYf BGaCC kr/9Spo2Uj 8lJJ/ AzSYoOB6+0 G/DgA 3CmslxQt6O z7fNA XCQRUn8Umu oempG BEb/uUREEE 5s4YL 5eQlyTCMLI 58iTo 7+ZcJTZT89 2tfnE KTuE4+l+Wl al+Ui Cr+Chkt36B qFXTZ uIIgwyV/vi cE3zI WvvFHF7vNt MYOu1 Lbcjtbo21r SkPWC S9okJhHHBo R60LO 3xA0vtGSw+ wqod7 EiIwkV+d4T DE6MX V6UXPsVT+5 pvfU3 Rjy7j/5Ukc FRCqS p9F0piEDBQ uuDcz m3DFLDj0Ua FwNH9 rO+vbk6eQ/ h8hAI bbLbMErQUS NVVxx f+ivlXfrUA xCk2H BSpMrasznY Nq02B 5nC+VEZLtD Cnbj+ oJ/9bJ2NXk 18Cwe rAxECstrxD JcApF xi/qd4FL2D Ol9I2 D3dXZ67h68 mXMHy yAd/janaIm W8Zk3 yyrrRo+IHt /EMsr ywAk0zZPMg yU6/a RTwg7uk96k 4FH5x RegJYgG4+h 9SXq/ Fj6e5rS0IK 7XWa3 tVL6VG76hp voVIk NvxpRV9amG WYf3X /tzciGCchl cxGOF ni+RF6GhL1 SIGPD 8QuE8MefBY Q1NiS eBlg57znoO ApGrt +4DgYZMtHJ /tIza WzuYYVQ6yM 4UQHE LMbXeWO7CK C65EN UlwNSIL60k 9VICz zs9bUwjVvt 5JTWS 4r+tbZNtpF gHjVv sC0NmH2mv8 koRkZ M3yaZQ6Tkh FyILu WIvwhFekdu LpIq8 CP+vuPu8Lb 44mjo Carolynn+a20XjG oSIo8 7jDDY6APTw +epnX F8CqmyNVbV Fo0Tt u/4LMwmjhi 6qMzQ 4WV2jfs8LI F5Aru qaCnFSgDox yQnAE uKUrQzWu3r wvh3K fCX2ru8V6W aYJ6f kVmw+EgmGX Oyl/t gNmAt8e3qV xLUTZ QuVjNg7j+K 9LV2e 1C3zmyBY6H QFkc2 8bGn5XPGPE A8y9b t39F0RAT/G pkYnO Q473SN4kZp WI1+C znuE989wb1 83Igr GvthkGtTH7 a2jrd nGiQ610uBV pAlam eiyci01vxa NvxAi lmKtz5DEdG qD0Uh 4Im+3/mCMn MOcYe uZHg22g90X eV8Ak U2xv1nZKur XdWdU dvYMzwdVN6 QIMSg wGnxPnz7Lp DAiOa NFRGejyIsQ mQWld fJ3+tqtuxO XC+D9 r68Xekxre+ rNnL9 7cblq+7q8y ImYIi REYLbnJCO+ vHURZ Qpe+qq0sqp 7L+VF bEReRIvjG1 7UM+q hh1XxKOj6S rU71w umz0mI6v7L ZIdD2 ifO0K9WJSR rKLyq tDieYfJWn9 jCXJh GAXVKbeOjw XJVpE XmjAKRh4+e iE1pz K11HXOglRT CqBap OJ056xUv6+ Scciz nkYqczxwkU BxFiB DoEsWuIYj0 l+0dv bOxFtHhmTk l97zQ 4oOjuWlYR3 RY2J3 HPPm3zh7bf i5vk1 3f3CKCiRMG m8DAQ 0JAvdea8yp 3YRoZ ZcLUacGT01 eFiL5 HYcuPSFfXM 5z66/ C2OyS+JCLf O56X0 9CrLMPxatb mOh6/ ZMJeG7QVlT 2NzQk pISf4cVAMP C7i4G QvnBXq1QQj HJH+P PGp2LJg0DR xPI8m Tz+In6rsac tlyF9 bhOFVrcHyj SocwD 4L5dMf8+iX 0iJa6 3Io7CH1XKX ShZZ4 eeQtbzOnRB wU1Vh 5JZJVCjAUl RwI7t IQicaIaEmh BxRoS BHyDqhW5Lq OsFiM SOmwSe/3R5 PkXo0 doErBjoEkO VXup3 ZCr5UbfjUR qy2S3 KK95sgIPTt skPFn lZQtmPoWcb XG3mN KUpHRFT3A1 miyHb 0zR+zll3sj 52wJl m8tYGzsijR 8AQkz Vf8mThSw2z FxC8g SJ4GDAD8De K0+hY OGiuum9xrJ 67yzl 9WsC9Rs3ct ntl6m BUoc5zy7Eo aZ1EE X3NehKkiI6 fYYQq AI3q7XkckD DoYgZ lO6jVTKNTR mrPe6 A23EG3mPnx qZiOj th1CAmj9pT 2eU4T VQmQ7gM4t2 Gm4PO MlM1ppg06u Cngco MZnuBuq16G ct/LG fDn+Hk6TsP XO+CJ Iq6RbY7b1B HlSty A5yqUuBFX7 QIp/7 XWZhprUNb9 H9yks ILcG4yYnUd huax6 Sc/p0sdRN/ LFNUX aUjstoyUvx h4uoD z5o75Alh2l oGKyX /hsRPX+2Nx vk3Wl ht8F64rWL3 QCtrH j64mMKrkz9 /aRft QeTguiFKbv GeUy8 KtKAstCLjs kvwR6 ZaHEGYJKnw iejhR GZtg+TXkN/ axWC3 RGLvYyQNqD L107B xBVnB4muBs SwAJC HF/Mir3DqQ cZ1yM hM+edc8Ffe /LXZ3 ybU4w0reVX AbrBO AyIAZlCvlD 6Tbk0 jBypHItGJd KK+sK 7ow4L6tNhd hjVK8 mPQyvFmIFo w23YJ 2xFi55Jh8k 2Q5go amALJ4KiU+ c4htf jK298f8k2U P5YA6 +PGiXM18iQ XwMY0 cKLntgnemk DZYMK kT1ImmBZQh 0FlrE 8G65H4cCnu 1yVpu Hkgxd1KGcU puy80 jrXApuv+73 MLrDy zZKRM/98S7 LagN8 jckqplTQmD 81YHv OMBMwR/akH h4AxM SqsyRqmX8M 4rhIy hSycYA59MA 5puOm ro4kiQCs6W pFAXH /Av91QUVDg vq9AX bzuhsEFbce XiIk0 7h40c3pYYd UbzQZ 5gzkuKzb/Y 9ra0N KVYn/HGXGl 11lf/ EVguCeH5DW KGf0E NX0vOwAFJc JXFR4 vetbSzzVG8 wDT5X hN93TkZfdU KwLKB rr/r3NJR8D LfISU kjQiBK9NY2 2WhvS IaD58LUm56 LEMA/6/ xgnLPIt1aV VTL/O ze+/oXJjug serzc YIZNKZy3js h97Q/ Ay0KePWz2j +kQVT NVYRpD6YAL GOuIJ sYb5mmWUzu 0DGx6 NMx4UXZ/benji qPH+8 V8IeEMAyi3 CRApM wJ1COm2r2y QFvmY o6bBL6LYe1 a1PHk mO84AUms+o zppq5 YI5HO68UWL 8/Sig UFiFl9rCOz vvRP9 cazlI+mUX3 t9kfX 4PJbOvzS+0 rG1HU l6NTHnzPyt bdlHO RHz3THvPYr XcIo+ kD2vesJ77g /Hs3z +EoML9rgKW efx4f C1glYsV/[place] LeWj8 QueryiZ9KA 2v2dQ 6+WfX/lfvo 2ZtsU 0JTiiVeO/S XUJYy NXlR7cFW4o w9r7I sa+xTNzlnN F37wH 99Z2k0ppJd dGdda mrB6aEG1pV fQ1+J zllT1GS5/h 0VO6E baBSYIs66M 0rhO9 5s4xgWtIEO yLX3j tFjoBVTFjp j7/M1 aIiV+8R0St pa2pb QX4vHm2iIN +WvOu g3wwONlxUq 4r/e8 ACPlpUlKBL EjE6p 2H7p11K0r/ 1xB8P /N8UNPeqfb xgnJZ eQ+rgkn0tG fbOJ1 wJ62jhy/vC qu7VQ 8/bY+yO2/c elVU2 OS6iQ1CPYV pouNt 5XXzTB/UWk Vd13K h7QHaAySIk sY6dy Gxrf/oWkbe H5FHf /Mbs71IRri qB4Dp +bazgd4mrP Jms0D /WWkVxzuS8 ReTtg W7U98HUmmB 1CALK bmgwiQLKZE tO8pv S/1rEaI6E3 qA552 otOitrmt+s nv8Pl bVQ6QzmjrZ zdHJl RQ4GZU0gg0 JqCjM 8HAWnw2GwM jw8L0 wgz3JoRFff Uy9Uc cZnt2EeqhS uY3kv NGA4xhIkD3 sgZmF mu6IaX2BpD jMgMC VPLa8pZ05r dGVud HNbOCAwIFI gNTAg MCBSIDkgMC BSXS9 ZuMWzW2EwS 2UvUm Exq2CfJ8Sq PDwvQ 46yb5HVoLA jZTw8 M6SrIjB8pG RSR0I gMjMgMCBSP j4vUH IlF3NlsQXe L1BER aGhBOS7uKV vSW1h I3HZDQ6RsE FnZUM dO4yrLEvrM V0vRm 6mcXf1F8cc Qm8gM gtfFCLRU1a pMyAx FHFxGq0YDS x2IDM aZYXjFq3BG U9iID MxIDAgUj4+ L1hPY qimB7V2ZY1 0ZzE0 OQB7ALJkVH AgUi9 yxRU9OEO1T DQ5ID AgUj4+Pj4v UGFyZ O05FCCnAJW gUi9N ZWRpYUJveF swIDA zAkNxTKd3R l0+Pg plbmRvYmoK NTEgM CBvYmoKPDw vR3Jv jVV2ZH4UJ5 RyYW5 ycVFnDP4ok S9DU1 svSUNDQmFz ZWQgM jQgMCBSXT4 +L1N1 UwZ6kNDbJg 9ybS9 HyFw1GVUnO mxhdG VEZWNvZGUv VHlwZ T5ML9KdFJJ 0L01h dHJpeFsxID AgMCA hPWHuPG2xB m9ybV I0jYMkAX4K ZXNvd CChLZM3RU4 Qcm9j U3Z7Sr0QWD YvVGV 9zB8IwPKnA UMvSW 2kV8WII8hw YWdlS J4jAM5hzuO jdDw8 G9edWJAeXX YgNDk gMCBSPj4+P i9MZW 5ndGggMTkv QkJve FswIDAgMTg yIDI5 XT4+c3RyZW FtCni c08/MNTQxM DRTcM fHZDR4XkOV ZW5kc 3RyZWFtCmV uZG9i pzr2ZUFeCX 9iago 9DJ1GzNr3R XIvRm xhdGVEZWNv ZGUvT TClW2VlYLP zMTA+ GxC8pfTorZ p4nNV h3NkhxPL/3 7+Cc/ yk0QhGQKWG 09OHJ P5V6vjQsPR unrbT W3ZVsTE+vA bvTPa s51FTIt7Ui DPeaX JxZGf3a/t9 rwSW9 osKbOvS5Ey zy+GI KI5yRxBe7b tWmJw QU8JAeDrmd fXTD/ JudS+xKHYt jznIJ tZLQtum54I LI6w/ xugt2AqyEy Z8O33 D47W97rtPM 2NiTZ N/jz4+/Ond yX+s6 d9+mNxM9W5 rRChH DoisiCc0KT ptvpu F5Dr6lBTJM WTi3y kT21a4MIGq SZyFY bZKixNrbHu +NdrH l4sPI+U7jN nM2Um gUiRGvimFn 08sD4 +CPA+WNUPn y6yYi 3Hif01Ambg M4vr0 XoSTGM2N2v GIbi7 PJueX0+nlg wZ0c3 c3+QAfhfXH +vLk+ af2fftHGng hsnl/ TsgJBSBA5k 0NYM9 cpp6oNWmCq UzUJ/ ddGF5rr8F4 CNXJ3 fk+w8TVNqc EMdKi 5Z8GbDc8R3 tlh/G zdsM1Sm0tM 5YNyg rAbvfqyuXU 3CLuT ucVB0siOf6 fkpxY 5BGojLDGLG //WR8 Y44JxQOhf7 dXjQY ck2e6GsC3i mV7f3 t7OWe9GlFt Rerxw /4Gi2slvH4 /2s+f jF5Py7XY0N Il6D2 uOK/V6CBl2 Suipj U6994VmVl3 IZHL9 cNL11gThgr +WLN9 Fml1G2BWdL hnGHT acfwJa96ra +vR6s ab2xX4v6PT Arkew S5n3o4G5nC C9ZA+ 3SFIhDBR1B xTidB olYjdrpfoO odyYi Duxp8CMp6e JdJ9S QZF7d4uWO5 T5Gl0 AQz7dDZ/nk U7Fsy xcJaKpPcIs LYIoz Dprv0LBecs afL0I xwz0MLxgQU pThmK uSTOwR4d68 ed5FM 71rXreBZQE ImyJf IRNqW8Mfyb prhAo JjTpINUDHg tQUn0 DV9jgN01MB h4hbZ jK4IpvexD3 Sz00z TSdVYN8SVF CEM12 mzbxLMdHtq kSliK MFlKMOswvY hHkoq JNtKh7EsWY hRbp9 S3kkxhY5FB 0FTwR y4F74Zw8GT 99kkX ot3X99JVut IKVor 0vrKJRHYH2 V0mjM m7s9f6nKCO xvs+9 xtDUu8Ur7h 6qofU E22rHl34XE GsMlO Do3j50Hz98 j8Io0 DxfZGm+ios NuO34 jnzXkwV+F/ fYQQQ MiFXThdi5H ouBfo GejLA11ghf /BfXd 5d/Y2sOU3+ 2frFS sABXfx4+wD 8G92O LwgomRr1FX QNRQz 7narQxP5wV ehUgO TP0XdeMvX4 jjtsX h9ktLJ43G8 7mEOT VYStODK4aE w9E3B Uc7hSaNCrx sVrjU r7ANqDtFj5 Jfc0M 6ab+twpYay BeM5B 0YQlR3nVoQ 9uQap ix7ruMbjf8 ST/Hg uD3QosO2f2 iWHtD 7xCR53VcOA UBUuT SDz78pJLbI v1kO/ syJcuXb40B ve2Yh gBGUbpVI2y ZysV0 vsyaYLaAZF Yfj+u ObsjDca2nB ojv2R e+t6pjDF2B nUuGx 2f+vS5Hqsa xL8+c yTmZfFtGMb iZyzH BdPAw42WDa LAnw4 Q4EdTmHSVh 8sek/ i2UlfG5pSw TmXNN uBkZVkLo7r nIc5k NVcJxUX5CL R2DE2 P1Fqgb65tL Kw0wC R+y83vXjA2 C3Ur4 O756wpFVhh zPrfa 7Lk+iJpXCp IVKoz Bl8GsyLQX8 uHxYW y+RB6YP1HT zUaXg NAqUbQXpl0 gUr7K KrG14umbMs 0H6Eq XBjwOkzKBf wOAX2 7LmXpEFeTF PggZ6 qIjChf5UXH pD3bD 0w5H5SVtNy UiiQD L2eZ7p+4K8 p/iqM CIageXdeJP LqXOo 6pb2PHD6qq FukTV NzCyKQZWyc srXGF wAMHCHvGtD 2VLdp wuZhNp4AZi LZus1 WRRZkm+KYP aaSxF CQSAj2FlJx 8w0Ig 4a4Ro8m6mp QuP7+ 0zheM1BNr7 lsyCK Zh7GS1SO0o BAjO+ QUVxj4wQz0 pcfJh pkNgtKQ6/A KVHV6 5UpZxrVy0y pmfuT IGxwdTuK76 ARytS Y/gtlNYC8x zodmj laI40T/m1U LLPxZ VP6Vmpz0QV ycjrX 66trU0arca B9hvb j5yhO+sewF nDjHC +K3j4ARYeG YylUA 6WyeqtVDee fIPZ8 NsJqlbk6aC fqJX5 53XqLuYVU0 NRdKg ZMt6kPqqq3 VWJls WKiscTkpck edUes g6dp3d0HRv SMm7p WHiW/QXJlM qOAc6 YJbA797EbP 1XfNU l29AdOLg7P CtLdg vH+43YfXTL QeM/R HAAwWCeEmi 5uq9e x0uizxAnJP rm+vD fHhNkdB66B UBEmD z9AvFfivpU dRWuj 2gSsoMy8q9 0s6Rf CkarVYFEpL P8pZD Qhl8YTWr2W iH4Cw xvNXvRzXQe i0S7g NSzEOHsZRv 5sbt/ tEmhbg0zx8 e/UNu +Ye1D/EsVq zY6OX OMA167f7rI 8RaCO HF2jdtlFtt MiSRf T8eRsJuFmP KMClg 4HT7epcYZa jJ7HU 5fYxkWPTyP GhQr4 Q/Uw5vxRV3 aah4U NmQdjI21o3 fRvcz y+fozDFWxe 7X4JE M9XlftnhOA +i2Y6 /frw4Kn+eD Y46uP X3aHBHFjkE ROoSc XJBfOXB59l Trmul VDT6gbzWZ8 tBWDX NXyZcGDH0r lSuGD T99K7RZ8HJ kuC47 wP3sanSUPX 6QxRG kQuwsxjb0w 2dGFK ZgcSc1ssln bSyxb lAP7XZzSgq BLo0A 299jvVmW+U CIbBS OwA2Dh4sSw Vk6dE xF4i3R5/OE rHRpB 9UDlDurs3z RFqZf kc1ynYpT3z q1GeG JebE0vU2ez IsLjk 4U0uZR+bBc wzdOZ +UNF7LHSe/ lPih0 nBz3QyNl8x dell9 Fa2Zje2bF7 kxb3u o0/ar4F8Sn AyVOA O1ltESi7I8 Z+cIk 96bMXsIrM/ TouFS 8QG6oI2VmY xp3B6 jMW2iVxNQG lf1Oj 482qjUO6qj H7TrN li2g9j5h5m O7VIk n+moPWe1yk uTtGd cTd2w8oTH9 /O0t/ MgoVJuYEHU NAecx 5s6I2mgPOW ioFjq IQ/cVgPor1 jbNAW chaFYNMtH1 VqRZO eo+Ek7/G83 TEqRQ 5mBWolpaqm aiewJ izlYGE4WnE jDGsr 96KOZtekm7 Z1WDa jeXsiTrHr6 dakeh 9XLalfZKhf z1g5u BhDmVGVV8w 1Xo+U ra5GrQq8T4 OuxvR 5J0sbIo7Au cH3uj Ylaig2Da7T Dw+Q6 hY832rpIYI 4/jIk qSoU1jvQwf eKy8f w3czU4ZaDt h9h6p UmsCR69Z2I wqNyC Va77ehd7J0 od8ii HKWjICbZPV JXTYP +pUnW9wsOf iBd+m iwx2MjaoSr xK/i+ TcKg3dzU9V nKwiO Y/DbJqnW0j BBBIS s3U60A1xGE mzBz1 QpRwdg6V1D lK01K 0KyEGGDql4 yP/5D KtfwV6z161 o1J2g RkeT+0v+rO 3pmhN VHgY4MIqZM 3LVLt qvn6yRFA8j 9CPjF sVkBQLtvyw Vq0Pb F1w1G52r8E zWNLt dOibVr6k9v Q0z4t VRM2jVQsiE eFCzn Oe3ieFRqfu aFQ+x AsO4NNbu3S aOdBH rU6g4PPnDK WD1vC uQCWEihu1J qvzdy ILdmywA244 Y2cTp Oc4RicwK5M 4rvId cOl0SpBym+ Cbyr5 SiRBkcXZS+ +tWFN dQDxR5dTNh FuvUA tY8XLKtHFM bBat9 M7izW/xO/3 YBPVM uXh76ea0V2 8IV29 S9V+KbMn+I ClcvT k8kElT9gRb NMMxt HXiDvHAG3E 9UmkR 5PkOJYGXmu Bi2NQ uO5IEjIDFX eln/0 mopTBWPyaC oL5h3 NqqzW3en2h Wr6fn VhSVbJG5rf EW3aF IPVAEn2lyu L558+ TrMHY2Wepn RQxmd hCBOhNKThs jyqCs iEPLzb1ny3 af7ts 7ID19Kbahy hKlDu SLQGoG+Wrr jveLd sYvEmB8ltp fSr4M pPiCJT1efH Ahgxm mh5b80eg9+ 6Fxgh xWfZGae6Yw KZkAS p0UEARUWvH Ao5RQ H0OXL5QQYO 0gdWq PZ8mkbqtvi ihjS8 wsNl9HxASL EGk5P cNwK2u9l8o AhInq VUqjglllXV BdkhY Ae81HcylPb vZB9X 7cYTPy8X8n dghgu 0DmH0B7dzW Rr/X3 3xARFt3hl6 reiax r5jhPwtRRM ttEC7 PBDoQoZB23 gA5yE wH6kWK9TMq CLIMJ KWOJXbuHkt 6gYEI LhSWti636z 9sEks htbxkmN1y0 xxITd OMayQawLu7 Gbelb 1qaQDADWMr W22Do bW8O5fbJLY F+qdN keZeqzJmi1 V7gbT uFu+ISSoHa KvvLs OkV/Xbs2cl i9qv1 Wp6IBnPalH V1pfV /O0RXe/4F/ bDO97 9FFHFkTuFV 13E1w VtExLP3PbL U6cLS lOWvFFS+n/ IpeYg pcbRGik1Oi HqhK1 ITAq8RhtML YmLwO NC1PYd/QU/ pXf2s XSNktyY4E3 WAqli Xj13OV/wF4 uk4rC zFpBCI8tsG hbQpl bmRvYmoKNT IgMCB vYmoKPDwvQ 29sb3 LZoMNqAZ8R ZXZpY 5XFgwK5K5Q 1YnR5 cOVoOQ0jP3 UvSGV qO4j2KGM6J 0ZpbH Atwv0PvQK8 ZURlY 92bHP4ZbCS lL1hP UwfkU5TwW7 lkdGg xNRfkR2Ybm HNQZX MRv74ie89f bnQgO I5OJK6hvFw gMjg+ IeF6djGdeS p4nO3 BMQEAAADCo P6pZw wfoAAAAAAA Hgb7Y 4qPCmVuZHN 0cmVh bQplbmRvYm oKNTM gMCBvYmoKP DwvQ2 1fm8BXgPGe ZVsvS UNDQmFzZWQ gMjQg EAXEYE5JoW J0eXB rL8okEOzfG 0hlaW iofYVjLJ1F aWx0Z XIvRmxhdGV EZWNv ZGUvVHlwZS 9YT2J aWJX7Z6NpJ 29kZV Dgak6kISdh Q29sd L3ldyJzQTD vQ29s r8RjOYUaAB JlZGl oiR7rDZM7W 0JpdH RDPPTOo34e b25lb nQgOD4+L1d pZHRo AMB1Ip4QVF FzayA 1MiAwIFIvS W50ZX Biu3rnqBGz dHJ1Z A6XQV2djQx gNDA0 ZJ1PnKIgWV VyQ29 qvC7kEC38E Dg+Pn Y9lkFyzHc1 2u2bC PHIX5nFd+I kcybR gCYCRuo4ZY PBJY4 S08TEIxoKV 5rROB piNBGNAhoC IqBA0 3TT+8KqgIA 2guyL gAKyGcMmAW VREVB RQUBAlEVgq rqRpe mGRtEvfsd3 3tHj6 4dwRw939u4 /e+sJ PW/M5MQWfg nHZ5w Rjyt9eMdA5 MSV8o evrn/Xb9fF pFeEJ lzSJ5vql/i o5//L AdrrAvRNgz 81C/v wG6siXRvIC z01aZ lXT8+zvkaR F8sVj S8Ep9SZ8uE iPxdt Z8H7VgriWS 7V97B bmFhiuOMkK FFAiw NM3qfqssm7 vf7XS FCngiYTFOk llY1j 3r+GpserD4 bDpKM azQpMgfB5o vEzTf 3gQwdQdNnq EIPIf cEIvI2rFMd zQJ0O sqy6orDKnn ysK/c GNmpseZqaV 7Xa8i fgQ5TlOmAv 5GXeE emiX1ysGvT /6pta e8xsiQiUBV QCQ0/ QZI/q9l3kB FCngJ 5T7brZdBst iNh5p 8CIW9zMAs/ MlPhp s8TsTRjKAr kgPv/ AYvD9l1vJC OjwQY g5n5n9GSix Lp4nN Wzsfraze2e NrY9A dojux6VuRn 51WT9 N/beCrf5UD JGVB6 KBwAQlampu hdQGZ J2NTDXaCi3 V//c3 BYihZuxFhH ayELQ 64YRS2e8sl /bGAJ sqSGg23u24 19x13 v5VpUEoC9I v9gl3 OqfKutdWkI 4839g iYu+bhvnQ4 Nj7pA 7TbMnuYNAR oKCTU Vjx1+fDzCn a6OdY 6Yi4+uWLEa H65w7 gLY02VdkwV GX66+ /6ch8QvBjS isgKi wiYRrbh/yH rXm5I kUjHjBkid2 vrQYE MczxhwcjaC IgUmO 0FBu5/cT7M aQkwl bLdPvUlETn 9f4XI y1gIF7Je/h hQYyE nccxHZs/ZQ oQIew wRMdwaBPrI pXE9o 3NGbLzVPgF FcKSX 3YKy/7J87K YmgIo 76ucu5/RXi 8ifN2 xE5eQGHnMc WsMUe lIoD57Frt6 QWpCO sidQcoGpZN CnG24 Wai6opr9TI /MImO GOpegsgeHW sP3uW T+D23B47DI 1LrNq LYGNsl3Xsg 806DK C7EJEsHOu7 5r81n zS/gSUXPFL CRSUc Z4OYiiimGE IIZfz 7mJJlxOUWD BuEXd g4gjnXV9+b 7wv1I PgQhBZ2tTl 08NRM IsN4+1gkv0 HSzxR 4RWroy2k3H 92UWD Tma1hTPWaZ GB+tT piW34w41kb b3whx 8P21BzcR9w rhBb0 bLEZdzimha fcGEt Y4boAuoPaJ 5exr1 U+EF3o/PTH EJjop mziObRxQnY pMvS4 kWtiaCy8uT u/Cc6 IAf6enetuG 8XV8i YUiBC9zDuv qXUyv r0wgYWDfE8 Q0qoD Xub10yfP72 k3hiJ y078bcfmDW 2HiMV OrFWgY2muu zjQqN 6RATkQo/jk 4bM3y GVt7yKta5X LBGRm BXinKAXOvV ZvaRI L7L5gn5JPz ROOW1 qcufpkfLhO AEgOp UWvr4vPO1j ikwxR nmOmWVlDx3 A0kww SVUBJx6juX tGiv3 yYVKeZ4y9R Uia+k 9j1ElRyYWC qJ/G7 0klXtP6Jjl EgDXR 4Y9YRjORld a68Zk B4nq814Uno M2xYM tvuoo2hZ63 kmvqD KXrYnZODFm IwSmO 5TLvjQ00dl T0ED5 l7V1ZsT3Y9 03T3d oMIAEsfJN2 +EQKP EVl0swMlef EY7wL wQdbEiIbtq q30sS tDw/Ck4yzn fxr+E 4+qALm+Lrb xlIdV V/mzdy4UIy di8C3 6JyQfSvY1s wh1iT UnS94JwarC Y/pXE PcyXRGQXJQ kU3UF XUtysPxQNa pyPvh AMolMfjZfj E5Uvy q4hZ8Be8qG WymiJ cnePGGgEZ6 4MM1S djSFSEaEEZ oIKSv /cqh/US/Mueller kn8DN Eis7Oi8Yc5 OADUK aPGUV/hLPt 80ANc s4wQhH1Tk8 akYER v+5REQQTmz hgvl5 CXJMIwsjny JOjv4 GPT40o4vb1 +cQpO 8Sw5L2vDjE 5SIKv 4wz2yj9xaS dNm4g iDDJX++JwT fMgSR tIJbyJigxg 67UCp fl8ZAzxBBK 9YITe 8QluYjm3If Qs7yR nWd5MR/7Cq h3sSI cEKH80xCZB oxc71 Q0+RU/7mm9 9TdGP LuP/lSRwVE KpJvx LV+5rQvP27 NzOTt jk0TK9u8PG 0f2s7 82fRu2N+Hy EAhts lvnSyODU8S XHF/6 K+Vd+tQDEK TYcFK ctzqxAzy5u TYHmc E3ULbf3ZUm uP6gn /uFPZdXHXw LB6sD ARSz8vHWck CkXGL +IMqCtzM7V 0jYTe 8xAci4uMIj wfLIB 3+NqdoiZbx mTfLK sgMn5nn14K yyuts Nvx26xDXTE r9osu kaeaN2hVzZ fnFF6 MccHuz3N8G er8J7 ijekzYEPtd Zrd1d LQCcsz8l+h UiQmS WVUnfOhFZh /df+3 NyIYJyGVzE Y4WeL 5nUoN4GCQc Y8PU2 hPZd/MEpDU 2JLES m5shPZoWCr au37g RFphy2cv+0 jNom1 vZv0BoJNcC AcRgl 0yl4UgfgNf kQ0ea xh1gLzcA3Y gLNyv 9IbA258Hoz NZLiv 06wn96dCTw NW+gz oik/2R7ySh GRlfS KEdnhmCQXI gu5Yi /JOL2M29jd irwI/ 7OdZ/su7ji aOgwi f0vyHfEpzB ijzyU 4SfMQOHf41 mddnY 6+6UBiYgWj RO27/ gszCaOGLqo zNDYc x5opyBwDPv Cu6po KcVKAOjHJC cARwE V3ElG0xjD+ Hcpos LaaTkXhZpg marketing finance manager+RW kM2UMHEv7R X+2oi wcCiO3eEQn RNkyY zR42nC6h0t XZ7pb zFyItLYJAW RzbaJ SSUyU43hKk L1u3b w/eTYH4eyC ic4Dn gX4k8GUCVp X4Kma YbbfxzDXzc iCsa+ 6DJp6Mhzpw Ot2BS K2yAiS48nZ VqaDG H63cvR1Y5/ ECK2s lvsD7aU8vD RSHgi b7f+YIycw5 xh7I0 UgntEwHI5R wCRjS kB62VXAVa9 Z1R29 ocFJ8T2jDe xKCQ+ yUKPO5h2TP I5o0V KV2PPkcPUN aV18n n45s01N6wT 4P3D3 7tupghx5w1 cv3tx rUd8odkUiL giJER krfgtX424k RFlCl 76qrSyqnsv 5UVsR F5Ei+MbXtQ z6qNr q23LuDypxU vXC6a 3ohFvA0Ioi 0PaiI ckkbMUM2eb vKq0O K4c7clj9FD cmEYB xKxm37YUgh WkRea WHtXDa99NP WnNfX lEkuWdcoKo FqlI7 HjZVKCm7Mb yLOeR ipzPHCRQHE WIEOg Csk8ikOUV8 R29s7 SG2kCOZQR0 vNDR0 NykuMIXtFj Yncwg p8e5HdELQz +TXdz YIxKQcAWbw MBDw1 SuauP12/dh Ghkhx AcN9Vene9S Ivkdh n39KH5izaI rr8LY 9BV9eIq50e pfT0K ssw/Fq1uY6 Hr84Y wUps3PdLW3 NCR0U Ngx8qnTIBm LgYaO CSH6X1vTtj f488V tlN8hTYMB7 jyZPP 1zr5p29X9W IX1uE 4VWtwfKNKh zAPRn 10+tw6LaWH lrrpO /04roIolKF lnh55 R0yE1qZNFG VWHkl klUKMBSVHA ju0hC JxohoSaEHF GhIwS l7V8X3Wo9w WIxI6 bBJ7/dHk+R ejR2g XcIBkTH8Ih 6ncgb PdCuOMkirL ZLcoD nmewlBhuyQ 8WeVl C2Y+hZxtcb eY1Ap 4YMlnljWaL IdvTN P3QBIisZlf AmWPm ROAa1bgliH CTMNr XNF4+PSEXE LyBMj QgscTouorT 6FhAK rs5R0goOgr LOXcf EDUaLueqe2 XqZdO 5/1ar8R4dn UQQHV NuBlVYFT7e hCpFP i3s9+jMAOh iBl9f xtMVdkNaas 97oHX RZPxpWyGpm I6PG/ gFcQ55ZIJ1 ThNI3 B3Ec0RNKru g84yE 3p1/LfeIKe ByhQa +dr7bmldm6 8sZ8O m1sMuBs0w7 4IlJ3 xatHh/UAeV K3JLa 3T0ta8z1Ax n/tdZ iSzlR2o0g8 KSwMV srSJaAOiG5 rHpJz +zHz2U38mH 1RdpS Oy2jJS/GHi 6gPDq XTQZuDqqgY rJf+G hA4s6D6Y+T daWKr V71abE6jBY 2seHv sDlKXZTq0k F+1B5 LV9XAly7M8 TLwq0 gZe2KfUgF/ BHplo cQZgkqfCJ6 OFEZm 4T3NlJ95sS YLdEY n2kAQ5xRdH TsFpc y5BcUmJgXI AkIcX 4lxXQj2Euq XIyEz 8XBK27gZ1z dnd1w juHauowEBu sE4DI gBmUK+UPpN uTSMH Xlzx9Wn7wi 6wrq2 rwjytSXOGN UryY9 CK6EDbFgVu dgnnB A2vdwNhiGB mCjKl HnreuZ38jh G198r VdvTJ82R/l gDr5Z FwJXrqhRfA xjRwo fr4Eb0uLCy gwqAz yJp6xFZOLZ WsT1n nxlu6qXXSR Wm4ei jDHcRGdSm7 LzSOt cCm6/7vcwu sPLNk pEz/3xLstq A3yNy SqmVNCYPzV ge84w LgIN9uCtPp DEwm6 cYT4Lflnfa EjJ5h +9EfXcwPmm 46bGX yVLc1z7aiJ Bcf9i /3cAVIxy+r 0BdvO 8YfHUdn6jV iTTlz zsmzJ9SoPb NBnmD FB6tJc3o0m rQ0pV sj1dFhkGCX V/85j FxWMjwNYoZ /QQJb aQwVUmY6dg VHi96 1tLPNUbzAN Plds7 vDyeJz9OeQ soGuv 02rtcQN3n0 hJSWp OFZDcYDzZa G9IR0 fvVNGDfwcD /r92B sFUd/iEVVM v87N7 7+nqpY1Ti4 vNwwt GhT3FrUWQ9 tD8uL xIZUB8cQ8C BVNcY KK5paMk3R7 4gnMT XI7wkR1yMK bHpla nwEQn+Oio8 f7wzk 689kKSrsJE Ckx1P ftY0yzwKKN +ZiPz EJjgBnPprU 8eS5T jXQQA35kMa mrkY3 R2YGfaBXd3 KKAkZ 1vcwnQ8o+9 E/1xr BLf0UNuj71 R9fg8 ls6/NL7Ssb UdS3Q ZpCqwlp3c3 Uc5NN /ZBDIEKddw ij6U/ EdhZLowA5t zfP4W ApjtqRlh5/ Hh8/y PcyEQ9n2b4 aPwfL GOk68aByx/ Z1Dr5 Z9f+V++jZm 2xTQl BYMB733TsW ljIBm X3VFSqonE8 vsixr 1QU9EHr8Qv vAffs 5t9RJYh03D 11qug 2e8XheSr3L X4mZ6 w/lFTX+HRU 7oR68 l1UX91wxBs E73uL nDK8U6w/It feO0W OgFVMWOmPv 8zVoi XD0vHPE9wm altgP m0oZZE4E8m 867Dm pxFN/ECXiv 97wAI +WlSUoEsSM TqntH qzbdTfP/XE Hw/87 QgouqiuDGC cll5D 9ekzA1vR8m 4nXMz fXN6X+8Kq7 tVDz9 nk5J0i2j0C VTY0P Q8OztQSJci 423ld yNLA9FtDQ3 XcqHo ISlScleixj p3IbG t/+joRu2oz Ud/8C ObTgcjGioH gOn6p bhpP5K5Rfr zQP9Z gYJGL4KiD2 O2BDw ffVJjFwHUI Aspua CXQTmotC55 ym9L/ p8l7VdlxqP nnai0 5I4kp04sw/ w+W8E bdCmVuZHN0 cmVhb QplbmRvYmo KMzcg MCBvYmoKPD wvR3J mmEN1WB7TF 1RyYW 6fmQWzDR0n eS9JI HRydWUvSyB mYWxz SB3WFmEcCr AwIFI +Aa9Xg936B W50c1 sxNCAwIFIg NTQgM XPOHSO2DMV gUl0v WHfdGK7OBN dlL1J os491weMej zw8L0 KltU8cS5Wl Y2U8P H4WJBGbuOo 0UkdC IDIzIDAgUj 4+L1B uh6IJLPXgR y9QRE SiL6NrtWDa L0ltY WdlQiAvSW1 hZ2VD MP0OjOOpET ldL0Z qxpO7CB3VK UJvID Y6HNGyWd5C aTQgM SAwIFIvSGV sdiAz MCAwIFIvSG VPYiA zMSAwIFI+P i9YT2 VzWKM8HEdp dGcxN GPkEPQ5TYA wIFIv hI0pZRNhYX A1MyA wIFI+Pj4+L 1Bhcm VudCAyMSAw IFIvT OCvzADYt9g bMCAw HLWhHfR7DY JdPj4 EDS8kn1OoV jU1ID Dpb8IxQmd9 L0dyb 3PfJMkgPl6 UcmFu j2AgcuKiT4 kvQ1N sC4hYN5Wzv 2VkID N7LZJkOq8+ Pi9Td KO8yVOnA7G vcm0v RmlsdGVyL0 ZsYXR dYGJfl6PkN 1R5cG ScLI9crpXa dC9NY XRyaXhbMSA wIDAg MSAwIDBdL0 Zvcm1 UeXBlIDEvU mVzb3 VzT0RxVOwr UHJvY 1NldFsvUER GL1Rl sQBxQP9wX8 VDL0l rZAbvIp8It WFnZU vpK1rRRvgo Y3Q8P R1tfID3WFK 5IDUz IDAgUj4+Pj 4vTGV gA9HnWNJ4Y 0JCb3 hbMCAwIDE4 MiAyO V0+IpO3jyA hbQp4 gHTWcEV4II C0VHD JBwARQwLYC mVuZH C0ooEgcOmf bmRvY moKNTQgMCB vYmoK PDwvRmlsdG VyL0Z sYXRlRGVjb 2RlL0 xdqzv1wUPd NzcwP m2dzFDsFU4 KeJzV MS3z8lrD/r 6/QsB 9SYCzwheRE nvAAX ooFBo99IH6 PRyu9 6I76XIZxk4 m9hZ7 v/0OvQYL8Q dIpON FZKBnFCv9w DMzz4 rc6Yee3dIn sYjAf 0xFiYpFlDI Zi0Sp RBcmA5yXro QhjEZ n8+gfP+lPm 8/SiB MZpSKJGeWE cvhkd ZSpoMaJg08 fo6O3 +ck8gp/efr HnkWi xXd0JTtd6+ /Cfg/ fXf3lz+N/o 9pefo eb79rhIVRz FqdjJ OBT+EK6Y2j yYtog mLXrKXo3M/ BFR0h omjWlmhjie TObL2 dLqUsQ5vu1 22SVJ 2FBZIgQTyc YBKke DDPOl9dsMK CUH4+ vm5IZk1KsV fHGfP z3X++/zu+l kXNS7 p/cdlC6ufi cE0bv i42IZ66cw0 2sL6N 3V1dkF/DVY /1ofP rs8/nC+EYf gIpSb nw/IzrE8CS zkL3i ApP4+TkRt0 HU+vs vrnY/FeLJ5 WMNyy CdaFybj3tG 3vzql saBohPSIki OqBN3 ARMPa5Otm4 uvPw4 xQa4MMn6h0 JRX3j 9lTk3PiX/P l1/vf yuHyx+cpuI wKF5Y f/u6gAEIHT XGVpF b2BJMh5wPb MYwPW S3izf2sniK pJTZo rJtT+bfaNi mV3T7 kji2MYnF00 P3lra X4w8qN2N6X GUYcU D1QVIKbGpd qU+Ag Z5c3p2+Pry /Ot3k ineCWWa8Vz vPHuZ bxhBwsnKj8 vsyf7 o7u6lzLvgZ CjSEA YEwDVnK8m0 UMGeC jNg+ybQo16 M7G33 xOL51RK/LN ppXuC mwOrWjG5ng cqs/5 7k18y4gdu2 JzVwM Ea8b2Jb4vK wPf3k 4ySl7cD2CM ues9J vPZYjydPaP 9L9M7 +DKC3aqA2U KKTpn OvpiyZgKFi YMH+P F8Vv// cm8/a q/2AG9KKqR UL2d3 hD4Pckubfd BoJuz Y87i19ZZNZ qp3ir FJ6W+HkSQH sQ3NL 00tny/tdZ7 sqbO5 tQSaFGfUIg dEd5t Nw3TFboTD5 wlP+W E9rUj4Sg2N 5OPnv OGIyTpob/N xsbCU Xm5l//14Nv 6aYwe f5Y/jOqPx8 bHd+q SbxE+H9W7C 0xGHK W76qdEXFFf pUmnF BcD6MCb/4Q zoYrN MpfUZxPxXM nf1uT r3MuNeHtra I1RGI xgJ/jG5e29 M//N5 SppNtu9k63 nzsli ykSO2Amav9 Q1+E/ jhpMl8MwEZ jCkVP UQC/AsjUha rqKj3 yn+K+tPl/4 voHi7 9LfpXNIMIk Pbv9Q X8I+DzBC5X bo1oF lNzBWpO/Rb daIAd MQqeVoBgG+ oUV5n HRxz8pEkgq OacGv ZGnCKhsYQT oRoRc 5L5U8oQ7/b QBLMG rIkak2UMt8 YKxku hFK2P+SFd9 f9agq 0HilaAbMNK 07gN1 Sdfi3JzNTK jCv4k toUAfAkA5L 4JBmd b0Iifh6YSU rA1ib SXtq1axLtN hHyd5 c/Q4eDwK2b i+l64 yAlcsFI8Aj DAZl8 mC8WzytWFW QdOMh mzBHysggmA +6ZFX uQLaz+XzAf GXu3H bVDGE9SGvV P2sv/ E1OB/fnD2x 8LVij DXBEK7/HCN opKFo EKECSViDqi o8kN1 +pCMIJ6LP2 kFR+I 08UGSQZMJM bOuRr 7wkhVm2DUt ykEW/ KK77CuFi5X FVV3j bOIcMDJ/fK gIQ/b YtE29jcDoI kZAaY BuigHJ1VQU KBuwm ehyqX+s/zb LjxvP wJKCZX5NI8 aSmSv tx8BKQTXRx CyNsy D3KDEjWmLl John FJYA2ZgH1S z/mS6 HZqisYAzNL hqMwS h9LRUqdLCd h/FYw 33ZtF8rlW9 CKDJA EA4NuzQqxo VrhpU NoArga6agv 1kpw9 bSSZiaHCM3 jadCY ggxaGpqYIK rsrg5 9UhHXEFOlL yhk5K tkGFO+NUmM 9p37q 9VKAftr6UH hvhiO o4lo9rbtFp r/aio gccs2F2iwI 0xNbe zkzTixy7Cq t5HAH tlyIEunchq yJbIq G7BdHWVaRu Uk1Yn SCGv+5yQqm 5ggcW gGM6IkuKWL cmVdh VH+UvYFujJ /74Rj XMPVpV2TRu VtvbX Brf7HMM860 JnEsB JI5GZH9vY4 wXlUN xvnulrj/eK uoqLl 305HI87RcE LLOjO 8SaKhh4HlP WDFDS UTFyM4H4nU U0LDk oH4tiPDDgi Kt+yB 1mhz/AUQ1m BVsTu qtt/CVnGjA 9sKF4 i9NFXM66Jh l41a3 iTWP1VfeWC lfqh1 uuD1thNH7N m/Wju 9PTBEZqFjo qbPmo UjSsfojOxa yJpg6 5pLDxLFis3 yGY2Z jzZiAodH2I qoa02 i9ss+qIfN1 C0mLQ hXxdhVElEa 9YSV5 izqWmpw4kz K7Cbd qX8FJhh0Qu nccl9 I6x0CiYCU5 oaEz9 v064XvYwyr TWq04 dfYRWrqo94 WS+Be japekQu9aw ZxruK aAk0cy1fz4 hWWIf kMyXT+YJ+r OvqUx 0Swp1tfby7 prcFT HXpmr1Vnjk j3X1g fV5s1K5geD ICgPs kI5M8RrGDd DDeTA Nqe1IWqmGg A+Mvd mgCOCiJ2Gp 4fYXn 95E8wHP6A9 He/dH 8cYHijcHUM V3NIO fKVhRKE9Ij 2/2ra n7+bMLCq/J TV3Ku HZOtuesCKb hHcgo 6G/9vkxIau yXBBS BrLYC9qsbc 6ae2N mYid7vuvu+ C8UnA 5NUPzXoPXV P2u8s 9RpTQk+ta3 x/AQp UzkV0Uufuh Xh83R C9xSu3swA7 gEiwz Ql3ZzTgn0h LKO03 LVHhnaMOo/ AmP1R UAs0/GT/Pb a2DI2 X/sVzMvfLd mwUa9 iQXByJVPpq D2PAY w6WbadV6+X leLBf 4+fmWy8zKM l9pQH VfjLl2e5VA 937Xr 1jKTz2iExu Iwzi8 PTBScRYSej j8g8i PMxIjd2680 vN8MS 7QfZDwgeTN S2Aa8 zv640gedWg YfACk wrMgNe8/kz j1GV2 UnSvBFsm0k pJ+Oi 4m0+WDz30X RuHNv Yn1fvEqtUm 7Yl6/ n12j1FtQut /PYDD ehIQmofDuh UsWrp in7RxAWlR9 6tIOL J8T78UAluw fEbjZ 3VFuBHNjlg r9enn mM7i3/Tfz5 RN6j+ rDR5/ROfO8 Bb/5Z n7Rvr74GmX 0jzMO IW7v7zhFsi 1n1ct c3GwZbeGiG efAR1 iYUjHzijo9 EUAE5 M5RQbd9eKL +BebN WpiX3CcfR5 T3KRg 40R2Pt6xOa marketing finance manager+8f T15EeZ271J n+G/q 09UFEM3SCx dNOZ/ 6GE/HltKT4 FLg+6 2jAgMbk4+t yvC3D 25BwxvJkjY Mwccj Myqbn9F1qh Jn9tQ w4mVz5U82Z cZIi6 K+Ah32nHlJ WZJYh 8G4scPsCZP YYYvJ 3W8PeTnMdV fdpXu GvDBZUk9fh W9W34 MwpsHuEbn2 UA8IO x4nR884pxb e10xP sEji7IP9ez E02/K SBN/e064QN vfjSe R3tKB39At+ RkQBu RjbczbN5WF mXk8t v7Ki/1MeeF YD6V9 +bvyEB3rsI 6pt9f wQ3FPM+Vba Eoeyg XMD4/3PoOn vg3/y vOPHrGHAch 0j4/f UNDvkPbVls sDjrc hkDl6f5OO4 pV4lG ihxL8/fWtj Tr+G7 QPBm+zQXBf SV2Rq 20+YoBLz2V GGROx O9WH2VNqBy VyCHv mcLn5E6hL7 HG6ht p8nyR8q61N 9jF3z IFclq7gflp y/7v1 Th3dhv/Pi1 yYYAa AlS8Ds1f0B ElOUR +aJpl5VJtV LTnlh UnmJTdF1L3 N1eyG Aq+WwQtmLa dIkj2 mJyWdRLELW Z11sy 61oXewaDtt E918d 24u/BG5XU1 G+wNt 3iP8MkAhct QfDHV UKr+x0h4zD 3SkvO Kw4OyzvLLy jWV/Y C0Z3LFtmH2 3MONw 6e1h4qSnY6 vIC2U 8Zrwbk33FS 5tpjg VgyFiNt8aP 8Y7nt fYwIyxP7ja uuinZ HShrRSVtXR etUlN wx7K4X3Pdz TQhth K/h2P1KHw0 XUF6I Sz9xeBkR9V vTkSA jWiLpfM5Rl m4iiF aNUjuBMmJ2 g9a3J dxdxgMaEkO uYlXj R8YFtWBtK2 CHq8B XT13Pr6QST jRAi7 9RfRA2Upal 5ccHt gWFQ+phANK ulgek jdKEIDuYVa xEOnz cWC6PP59+Q vptLA eIKfg2CAoA hc968 PaZHcScW0T Brk7o bQPSkpYTkL xR5GU ltA58volIv YpV3U ugA+FXAoPT wMlhI t2wEDIqB5N RJw96 uwAnsuAwoK jutUs a8VXKcriiH ElOzF dqRcvuR5Ek 5oJeq JBuMBXTVkv J4dak vvhraGMgeK 2NDuJ O8Mt8FmcH6 2yLBY fQAziWlCbr TigAR NJUFIBORU3 6K8hh TXGFXh3Ufl DbVlZ YHY37Kf99a qwiTd bixsu0z+if S8zX0 Q4A9IN60IZ 3+tcI dYYpp+6bDv rGem/ WcZIyGhMhf yjRc5 CGpniIzAHJ HeJ7W UtTnK0gIC2 ie0gq p7ZKV0D4pc 1+P9P 1Y5ejazEBO YvS4W hdi/VByd1K [id number] [id number] HUHQP 6SA3v6bLXy fv14Q 2wHm/FrfDm /Jimmie P7733t5D8M eb+WE 0A035xFTMT 278fN 13X1EN2pda S0thC QBpDoEKE2f IawEb hP2MOY53Sh BVeUY kS3HFfmsue z3+2b f5tgmq+/8N WXZOQ rSZs/ZPRdw KtQV+ zp/43AfUAi LWjx6 oI1ng8HfSN gNWBe P3Y4FUqVDl Jbi7d kZGHj6t9wk D1xos CgNae9cwaR oNXft 4m4lxQB9Hv +5eab GqXeXm0xt5 yHWJx T2JDbtVmTl AbWe2 Ohz5D7Ze4O 1Xs1Y 4jezLhzr6N 916pS SZX0pxoMpx IfQOU fhICffS5SF 6R1Td sUIZyjOZ5T 4jVZH 5LordOOgeg eVcT8 IoPqt43+IL rXRDU o0DeZFxgfo 7E+KN 9sepBH7K3T 9QHp3 lrtGIruQcL pX3VU drQ66WBy0X BChI+ 7SPOAhUUBv NsSvo MxKHaU6FzQ v8qpW +HRXpu4QEK mfJ/C 55Ky0Yrq2E pt1WB 0tjjQ0HvNR N+sfJ 1Y3wi++lVE DdqpS 8CQs8vCL3P N9pCD WD/atDfxNK VPvqr 0dSJ9I/R1p K+Hvm Lkq5H+f3dv LpcKZ S2ny8YxJNV tCmVu HX4jtzs1Uc AwIG9 qsuj9MQ2Zw 2xvcl BiBXWmI0Ls dmljZ GlxAGovA3M idHlw JO9JuICdMJ 9IZWl naHQgMjkvR mlsdG HyN2FvLPQj RGVjb 4MjV6D0xIA vWE9i hnWlzE1LzV R0aCA kZPGbDmy9c 1Blck NvbXBvbmVu dCA4L 2lhriw9gZD yOD4+ e9AeOCQaCg ic7cE xAQAAAMKg/ qlnDB +gAAAAAAAe Bvtji l8LOS6fq4Q yZWFt FrWjKK3syb o1NyA jHO7shad6F C9Db2 xvclNwYWNl Wy9JQ 0NCYXNlZCA yNCAw MQYmY3G7Bl R5cGU xBF9eO0QkN GVpZ2 c6VCX3L4Ex bHRlc j2FkFX9FVX lY29k MO3HsIUgK1 hPYmp nY6HoGETpr 2RlUG HinDR3RQ9U b2x1b L4eMFI3Ba6 Db2xv ldEdXf1Gxm VkaWN 0z9BdWLFqF ml0c1 BlckNvbXBv bmVud WX6Jb9sW1d kdGgg SAtlZ3XYDV NrIDU 7CLHoWu7Vv nRlcn XkiOY7WLL6 cnVlL 0deena2fGN 0MDQ1 T0UwzXZNFU JDb21 dx38mcnTfF D4+c3 RyZWFtCnja 7ZsJV CEI8gmw7mX zJtG4 RlkamrVlc8 EljhP jxEhCjIorm tE4Gm E3DD4RLdBf oEDTd BO7ixcWiEf C7IuA ArIZwyYBZV ERUFF BQECURWCqu pGl6Y ZG0S9+x3fe 0ePre h0I7icKmi5 76wk9 b8zRRQ/K+c dnnBe 7CWX0MTTjj JXyh6 +pe5dc11Mr V4QmV 1UvC9w5+Kj n/8sB 1aaF8Q0HPr UL++w HzV6mZ0J0B TVpmV dPz7O+RpEX yxWMf Pp2bEspHZW /F20P JMwD5QJf/t X3sFu NZHY78zUmF UCLA0 ZEjM0LGRu7 /tdIU EkPIjEG8IL VjWPe s7xau3aJaf OkozD Ltp50mMWI8 TNN/e GWB2Z80zyE g8h+4 eOZZq4fZ9L AnQ56 hNfv89cCaU wr9wY 2git0fudFw dryLK dsBP4RYA6g Zd4Rq fG0rrerbk/ qm1q/ 4HDKsSWo1W JDT9B kj+h2CzEFY KeAng DmeQGROeaI 2Hmnw XjVvBXpb4r U+GmL QyxMJoMSOS A+/81 GRPyXmVMc6 PBBh7 sEkXhqh19z nic1Z vGtu6+zl42 tj0CL CnOHQ+RC7n VZP03 +mg+zPcYck ZUHoo UPHFBbaq0G 1AZk/ cszBGF5csH /9zcF wZPf7YAGyf IQtDn oZATmDXO/9 sYAmO ZGWnX6wqdG 3HXdz cfBQCALkS/ 2CXc6 e8a895kOgw zf2CJ i75uG+dDg2 PukDt Nned3e8BGg oJNRW OPE72DHIsn o51jp mVw47KaUqj rnDvM IzbVCmCUAZ frr7/ 8iZKHxq6SR yAqLC JhGtuH/Iet ebkiR ZIvZCCZ9r+ tBgQx zPGHByNoIi BSY7Q YD9i7fBpzl CTCVs t0+7GHFWu4 /hci/ z2kFYPK+GF BjISd tgBnpe8yDl Ah7DB Ex3BoE+elina cT2jc 0ZsvNU+AUV wpJfd grL/snzspi aAijv d8k1f3XtSr J83ao x4mLDFDAQv wxR7J eMTvtHDPdB akI6y E2Vfojwt4B cbbgv KLamWHxEj8 wiY4Y 8s0EbK0itq /e5ZP 6OI8isfKPA us2oY REpuPVi+7z ToMoD wSkn3Ga5aq vzWfN L+XXJa4UnO FJRwj dg+99ptlIg hl/Pu ZdpDK1KGQA 4Rd2D sXVTdiw4mz C/Ugp 0w9kxxjucM w1Ewi o9z0OEB/Qd LPFHs o1ndpfFvQ1 ZRYMC Yp1ckyoIdS H61N9 w/rqDrWVtv fCHHw jTRiGYLSOu EFvRs zCe7JTvUs9 wYS0T WWkfCBOcPl 7GvVT 0UUfu74RhC mOimb YS7pNPMems y9LjF HK+IvPis67 8JzoM mHa+2qeRLx dXyIB KYUPyVeZyp dTK+P lugtVa4/lD SqgMJ 3Iwyd7tZmS eGInL qMcP1RRTzG eIxUG Kb46DvlMBQ NCo3p EBORCj+OTh szfIg rPaVNynQcs EZGYF lVmcNy04Uq 9pEg7 NraBUvH0lJ 45bWp y5+pE1kE5K SA6ld O86M0DyvuZ TDFGe K1GISOAEpU STDBF sSsCxg6Nt3 aK/fA QUXIDrHZJS Jr6Tm MVx7v2RxYw n8bvy l8mU/Re1wS ANdHs udSZyK1iVr rxmRL vGLvjpmiMz bFgyq jPHLeBLXiS a+oMp drfmi1CUYx BKY7g LjT8ZaZ39E QQPl3 oLZWwPkDzT dPd2g ztGRd6i6i9 RAo8E bimzIle9wZ jvAvB G4zSYgc5wx fSxK0 ZH3QQaCGa/ Gv4Tj 4rLwl9uhrS Uh1VX +WOZrcVjB2 LwLfw vIht1eGiJS HWJMe tDvoOmGohj +lcQ9 zJdEZBclCR TdQVd S3Kw/FA1qn I++EA yiUx+Nl+MT lS/Jz WQXZnDhoJb Isidoro y81DkLEgll wzVJ2 NIVIRoQRmg gpK/9 yqH9RL/JSS fwM0m KDgevtBvw4 ANQpo 8ZRX+Es+3z QA1zD mcOVHpKHpq RgRG/ 7lERBBObOG C+XkJ ckwjCyOfIk 6O/hc kTzzPeNrX5 xCk7h OPpflpWpfl Igq/i abqOfRqhV0 2biCI UWqe52sXT2 yBJG0 glvImKDGDr tQKnH Dm9lKfFrR0 ghN7Y 1fTIY1xqmW zvJGd Z3kxH/sKqH exIiM JFfneEwxOj FzvVD T5FT/uab31 N0Y8u 4/+VJHBUQq km/Et G2MAxS4xb0 M5O12 TRZfSbxcDR /azvr 49JlwY8jXW CG2y2 hFS7ZLwRBw cX/or 6V575QHPvL hwUqT T9aV02EscF geZwv aXZS7Prd33 /qCf+ 1V2v5qakQz HqwMR TxGg9UtHWN RcYv4 YOAB+gzpfS NhN7x w++tf6JoxC 8sgHf 03m5uOgyJD N8sq6 5fPdE4ocDV K62wJ +3TRwJMlOv 2iy6Z +6YPd4+BR+ cUXoC WIBuPofUl6 vwnuK N6TNgQ+11m t3V0d WnxM1EF3KD JCZJZ FXw39VCiB2 1/7c3 IhgnIZXMRj hZ4vl xORbUdEiBj w9TaE 1b18tSlZNF ksRKr jH5EoRaJSk 7fuA4 HDXKPkh4GW 2ibWx VSG28zNQKB xGCXS kN0xoPPttV DR5rC Pi3LlxINCT s3K/Z F4XjXY+SU1 kuK/r S1DsiNTX00 b6DOi KT/ZHvJKEZ GV9Io L6xKMLPcnT 7liL8 AXCjRpc9SB Siomara/s 51n+y7uOJo 6DCKP rfhO9diEfJ PPJTR SdFEQKvnqZ 12djr 7pQGJiBaNE 7bv+C sZMn2HfhiI 0Nhxv jXr4MAGwAY 7qmgp tVaU6SwnKs BHAQX U1bpv17U1a ymiwt ppOReFmmCe n5FZs PhIJhlzspf 7aiKi z8mLyd0I2F 2TJic jnu8/ivS1d nulvM LTj0ytrSVY NtolY NiFTzyAPMv W7dvD +ERhPxqZGJ zgOfN OfciW46sMi gqZph tt/HMNfNyI Kxr7Y ZBrUx+2to6 3YFJT fNdoTjqQJW poMYb rmz4SGzn2T Irayq 9thz3jtg6J IeCJv t/5gjJzDnG HsjRW uNsdtgHlfA JGNKM IYhEM8b2To VHb2D V8FRUndFVS oJD5o A8FtZ6dnGx mjRUR yd2hPMUsOt XXyd/ rarbsTlwvg /cPfW N5hqBityEj /e3G5 mhc4kHcJlJ IkRGC 67dOskyb3I WUKXv qqtLKqey/l RWxEX cGE8bgl9KF qo2uT oGNbdEK5J7 cLprt 6hecPRWSHQ 9qIiO SPFhETqyi8 qrQ4n mHyVp/Ywly YRgF1 Uw3gf5OiOa RF5ow CkYePnohNa c19eU QT4H4krklN qUjtf NYxYuPknHI s55GK qI0vUPMrMN gQ6BL BfbMG7BgiC b2zsR hG6Ay2Lfs9 0NHQ3 EB7pqu4SSz dzCB3 p3yJPhBgo4 Nd3Ng jEpBwBZvAw EPDVK 5q4/Xb92Ea GSHFD DF3OLD7wGr +R2HL j3jX6zPl+u vwtjs osvXk4yyjp 9PQqy pW4FbH6jme vzhiY yNzUalNjc0 JHRQK 66lwsZfs6i Bho5Q Q4uUQ9VzN/ jzxWu UDnNEgsTyP Jk8/i 2/N1pddCuu fW4Th Qr4V4g5kDI A9GfX P7Cvkj8OqW uuk7/ TiugiiUoWW eHnkL B8jl9KdBKL YeSWS VQowFJUcCO 7SEIn GiGhJoQcUa EjBLD YLlPVGjrBY jEjps Qjg64cT2M4 NHaBK oI9MHAmS4b dyBs9 9N75cSMozc tygOe G8DEFV0HUw Z5WUL Sq9NcH3zm5 jUCnh gyWeWNZosh 29M0f s5Zd7I+dsC ZY+ZF UaXqXC/AEJ Mw2tc 8Vs79PQhCn IEyNC FexAq0nlOx WEAqK 9ogANtYc0b 5dx8Q BRhj03p7Ro pl07n /ANIO28wiL BAdU7 Nm1JWGE8HT KkU+L ju31TnL7ZB GX1/G 6pJ2G1maq7 ugddF k/GlbIamYj o8b+x aGgvT2jabU E0jcT dbDdItBpuD zjITe kC6s30zj5F KFBr6 iXpvPDHLfy xnw5/ z6Iq3Q4yyw iUnfF c1bR9YK8Tr cktrc TpzDxvUCKf +11mY aa1DW/R/cp LAxWy cDthH0Cyfq eknP6 dLHUTfyxTV F2lI7 ZqFyV2SbWc A8Opd GJr8YjdLlz l/4bE T1/gaqd0T9 pYqtT kaRkZy8Bsc x4e9s uR3TcdQ8cU 7UHk4 DkeAp0gfuN vCrSg XYRh11ND1G emWhx LpKSv0Wvv4 URmbY Aj27Ko8mSt t0Ri7 0FvMozk8oB wWlzH 1OIKwqUsAC Qhxf2 ZsNRrVHGdc jITPs YeKS7bte33 d3XCO 4ij8fQWK5i TgMiA GZQr5Q+k25 NIwcq RyLRiXSivr Curav OPS7Du9C6W vJj0M rxZiBaMNt2 CecEr zOFok00kQU KMqUj DNypTvnOIb X3ytN 9pNbfQT+WA OvlkX PublvKR7LC NHCi5 1LU9tgZ0LT CoDPE cWj24uoORp xPWd/ JfaWRl4yyh bh6KM OqoVC4Fswj NI61w Kbr/u9zC6w 8s2Sk TP/mDbz7sO fI3JK qZU0Jg/NWB 7zjAT ESk3kR5hRT TCbq5 zorTqPWH3G MnmH7 0R9dzA+abj psZeI I2TW/TKRQF x/2L/ rrKHoOX7eV F287o lIFS2Ao9iA NOXOO U13OUv0U41 GeYM5 Lis2/2Pa2t DSlWJ /xxlxpddZX /zmMX ZZzXI7luj7 BAlu8 N1jdM9vDnG eL3rW 7c58XwWW6+ V2zud e529LjslVh ga6/3 m4KeMSR2rO lJak4 VkNxgPNlob 0hHR+ 9U0YN/BwP+ v3YGw VR3+IRVUy/ zs3vv 3HoF7cJMn7 3DC0y RDpOpMIfe0 Py4uw sFUHeMPpEF U1xhA f2itJKcpfl CcxMt LmigbqNAxs emVqf XRFy21Sza/ vDOTr t0CjZvjlJK THU9y A0o0qdWQu7 mI/MQ mOAGc+mtTx 5LlN9 Wa0veqO0ua uRjdj RNe10g/P0o oCRnl 2P9LT2031X /XGs5 OHfjM50oYQ 1+DyW jy87orUqgM 1LdAy G6HQfzC1YU zk039 tUWuJe98FV PpT9G mFuhouvi5D 8/hYC hQ9wNJZp5q Hz/Jm 3nUb23y7dt /B8s8 jOvsYy2n2h UOvln 1/3E61Cvhv FNCU4 ypEzn6y6HL MgGZT eEwKf3LSg+ yLGvs Mkh6YrFh+8 B9+zv GdLcWv8BhR Wq6Du 7lF+oWX0Nf iZnrD +GWPj1lBGc hHryj zbYmrU7M4V ve4t8 PDYYQi1f03 47RY6 ZGCfN7X+/z NWiIl fvEdEraWtq W2A+b a68CDZNjsx rsOan JC73UYtG/3 vAAj5 aVJSgSxIxO qe0er Nt1N8/9cQf D/ztC Pz1qD9GTTy WXkPq 0civdAK0bt dczN9 i4eq8xghz0 UPP22 Zovng5WoYE NjQ9b cq7Jj2JyXc beV18 5jy6EyMXcb yoegh NXNwI1EWLa chsa3 /6FpG3h+RR 3/wI5 tOByMaKgeA 6fqnH VzfO4cCYwD A/1lp Iea5cpFZw8 YEPB9 9UmMXAdQgC ym5oM IkCymRLTvK b0v+3 iLwumfKgOe dqLTo rj4oofX4/D 5bwRt 7PII1rm0Nq ZWFtC eMqTU7smof zOCAw WX1frct0AI 9Hcm9 7eJp3B0XkW HJhbn NwYXJlbmN5 L0kgd UC1DY1LVIF hbHNl Y5CMOQGuDL AgUj4 +G9HkdwUsr nRzWz QgMCBSIDU4 IDAgU eW2MTAnMw7 vVHlw AN3OFWdzK7 Jlc29 8ljLyjms7I 0NvbG 9xB5OvX8A6 PC9EZ EKvoWy3Snr CIDIz IDAgUj4+L1 Byb2N DSVPsGa4VW EYgL1 XppCRtR6xt YWdlQ mNtYN4xR7X DIC9J bWFnZUldL0 ZvbnQ 7VC5OQOSjD DI5ID VcTk6SdTLj MSAwI FIvSGVsdiA zMCAw IFIvSGVPYi AzMSA wIFI+Pi9YT 2JqZW Z5EUcmdGcj NDAyN YX3QSPdDZK vaW0x ULJfDqK3Su AwIFI +Pj4+L1Bhc mVudC AyMSAwIFIv TWVka AHUd3jnVHW wIDYx SdL6UDScQf 4KZW5 ja2UwBxP8F DAgb2 OcNgg1U9lc b3VwP OigZb4XhoV uc3Bh wdFqQ4vdU8 NbL0l VV5Eic8KsE DI0ID AgUl0+Pi9T dWJ0e IGiP4Jadn9 vRmls sMYbR2XvOH RlRGV nb4JpY4B2n GUvWE 8coqLeuB9M YXRya XhbMSAwIDA gMSAw IJNnY7Xvzx 1UeXB lIDEvUmVzb 3VyY2 VzPDwvUHJv Y1Nld MinTEWWA4S leHQv CS5vC8XTF7 ltYWd zXe2XqXLwL UldL1 pYKrpdK7K9 PC9pb YF9SQNaQEF 3IDAg Uj4+Pj4vTG VuZ3R wRXQ8H5FNl 3hbMC PfJFQ7LwVa OV0+P wT3iuOufUd 4nNPP wRL1NSLqNu DJBwA RLALSCmVuZ HN0cm VhbQplbmRv YmoKN TggMCBvYmo KPDwv RmlsdGVyL0 ZsYXR eZXMyq5UmC 0xlbm w2uRMnEpBo Pj5zd ZUjMQ5UuNa VXd93 dwcRet4lyY n7kpx iA9yMFkjTN ZxpM9 Hd0sZnd3S6 +0Adk nAIsUpw5hp /3ysB ksA/YksODe 1JC8T iljf2308ZY CDP++ rhiHgI/pLY o7HPv WRpt2U6nwP vPDlZ 3GOKCPWGhf evV+L H8wZZFnU0W kZ9gg OEA/ikdzby kI/Uz +O9d/I2PSs 8+O3o St4UzHXdWo FFCHu jyX+O3t/87 fXxf7 3Fo18787E0 qmUki V1IMmEOxi7 oiEm8 2ZjwKKB+AB Y3mcm /mJc3iRB+j qSJ0/ Q5XH1Zq31O hJF3t Z0ogotUNSD xwuhG A1UgkR/ZWv jj2Av RUTKfJ4+1Q 2ePxe IhfZzX++/T 22yc5 PXueTpdpI/ b6XVB 6M0dmAj4AI pd3Ch N442hr2/gR 2L9R3 53mAg0hoJQ BwuYK ze/HIM3R+k kydMn IoBC+xhTVj t0kya 5mi8eIO/Gm 81Kll 2sDq/PttVj sH/rG XjYXwcRK5j OcMzw Cl8IcwKACo VfP44 9AsFKIG+3x orHgX 4OrBx2QFlr lvcPX 2kx7YksKft w02l5 3Zi8vRiZjP DENNw hYelF057GE 8E+YB xoSm5iqgOy JNbJ1 sdz/s/aN85 jtT3c 3n4QDXD2+P 5yJKn h1ikiEa8cW tgJDk 9TUuzr4wIh 5Ghke Pnx/O3pzZu LbVHy osjnxNLCTT orhIx OyABQwfA8m c7V7u Itq4FiyzFJ FwA8x GyB3uflv+h i4INw U8eqyy2cLy Vfskh CDhbg1difO T4Xyz pFVHW/DpT6 XAxH2 4LKsR/yzaM aMBy3 7HKfciINjx 4y1RX fFuPlJNVjj 3ExXS EFxZ4n12C3 8IFM9 4jsCNUPi7F TO9mt lMIu2SyTyy 6m9W+ /P2TjB/VR1 e4Mhg Aa3NO3Hr1E 1YCh6 iflEQyDCWU 6maoT Bc1bLEGCaq iS/n7 knGSrj6I7o 2p5sV VeCQbUh3Zm BAYp2 fcTUqxsL9r 2Dj0a +cQ2CI/pOJ sJGpX Mz/H7oshNE IzXQX ubJvlCUXq5 lf33y HD5O67DR3J ZUle0 eTxRW5/EIP HTcb1 Ol9JQQTu9Z 9ORQS NSZI9Mgg6g +Ynwf 8MZMIqNoji sz0Dy p1rr9lvj8D oEQoh H4ttz2s5VY vwna/ pFmg4nci1q RPl8X iano9liKla Udz/i uXzvQ2RQcV 9hoDI AYySOvYnHI L5gER M/9vJ6r/wv rz9d/ sw8E2R2o+9 PbwoZ zMVStPm0i4 HnETR Nup1x2NSJK panfv c+QaW4LbYM WAGCb xptqxqOb8C hzs2D JNS3Ab74L9 5Gsc/ hROiNkGxc7 ToiNm mbNMGsAbsz rd6g5 FBBYce1b5F cH7ND uhr/tQSrCO StBNm GFYd+G6o8t A6pwh aAnnFiw2yh 9KSIx RHercDgzKg 6k0TQ HQDLBZ0ghM WoT4S e63Y9jdKyY +tU1t fwNtF8Lex3 tgMBf 4CYFbq4Btf 8psUJ Xp9iHYOCYO jjPkI nOrJ1CQ/g8 paKsW OFJ/SpDQxr Kmz8Z 5jBKCVGJHL 2/ypd LixO0byKUb 8/z4t 0nDhR7jhFc EDAZS HmwD/vgnQj 8VnMQ K1yhBOW1yf 8F3y4 KCCXpY3lND u63a1 PSoR245i2y ILgWW GaH2n2lf57 q0efi +MRok6z3Wd JXHeo VG8MucjW35 kg6JR 8n8IftH+dX 5Paf9 XgNN1IfagA ANkgs g2Ga+lz4iB 8wMTb jTyEfoBtED HSoQq e6sbIhAmaN IkNoE 6ZMJPRkYkP 9f2r+ n8HpfHLCUo O/TdT kCInebhJZt mtjV0 AH5iPtPm5y Ev7x+ VwgGOrThfH lkp8l a6JZa58ZMs 7Sm0s qgci8ltlxO ZXl0E 00U7zcFkMy WN8Kb /+8gYwqJup orb23 zrgrgTQGK5 nrfTE JMDGcAQXBI L5qGs ea46sc8JLp +bjwA zSpby6tbbC mc+4r s8OtZK1o+7 BIn/n jDNBcApXs8 B/19c GLa4Sy7tgy SRjAc La+on4wF0o ZJ8TD 4VjR2ZyuW/ vfxDf JgV5t5VScT Yj9J3 oMPORBbadr cnIYz Euexd1dUwm 1KCUW Dir02xO1XP 3qMRm LTgy/7sUpF N1n3M 6K7MiK4CyQ esgnO fCsIXFTpk3 6+6wz G6fbTAJ/ta MW42w CsqhXs2BJ5 H24tu mPS+KWyu5Q bGl7L kb5GIj0TW8 dLPUD kc7cKQIVue jzf5f HUYFRA8eIh 42+m5 jllaXhTY3a Ai8yZ umOu1urP24 uW9Y7 pZ5s+gi22u 8teT/ HsrEUINN5o bqE4S 3Z29L1iD+4 O92XH CoBIssdFOf A0fgX bo4suHvjEw 2ImQf FXcwIF23Gb Gz+A4 jctqzZH6MI 1jJUM r7x0q878+s O2Z91 b+O/9lb4x7 MzvfR TTw0+DkDkQ MTse/ Tn5oZmyNvR QiCn/ MlzoHJ/zhL xzYor Il/J881Bd6 K+qbv eFlK25lP1t 0czOo j3oceoHbMP MbYRv 1+fyw+w0Xu tLjf4 7eueUKqw7b lHpx3 oGlUjqRbpN ezGtx irn0b0Cb2E 33wHy ShARnWb4uN zMvFJ sIzL1BqjJ5 zJqA2 AzhSxeV3ar wYiKp fflZtZ5WwC 8xX3I SKwUhERARD WGOfQ rEu9qEANvM u87pt wCjWpzw0ig F2uBz 1CJlpkXe0S IFLxg B/rBoUBHJo tMRVs juKpVLOJ7Q ZQCeP WAEbhCZxG/ lsE59 0oif0nubHO ZwFn5 RzU4RfHBNy IsgJN /WVCkY8sYf jjURQ s8Sx9WKxPT SIFC/ NI3KaiL06S 3BSJU KoGpSJAMSU uKpEw DAPy73usZX 3ZCZs XVFMrQzK4x ltc58 D0HD/ZNibU yGPQV sRiLhdk2bX KlQTu tIwMxtKbo0 zt0IX ejrMqOz4XJ HX2dC D9Zj7oKyoD dmabI BtgkTeNLOB KKY7z PLF4Azuez2 whKNG b7KJj53UoU nrsEV xnSDl2dVfP Z1GFq iaAlrmaENq KVrpu xio9SiJU9T e3Hu5 hm86XBgJin IK+Yq PupfAT+WuR mgB3N O3Ngk5iRiE NlHiB dBVnunDQVk yxplP JW3bhiKS+y Ao844 b/rc20O2qk 5k5O1 MmixfzoY6x aLFu6 DGSD+405Xh N51wV r3LsawZoK+ RK9XS mE2VVv0hM0 WR2K9 rrD7c5Qk7p UqhDS J/qYrjETgI ozVLz CPKxm+YRIl uwAGN YAG1Y4LAaK CYfBH oOpbOHLERO AlsHd cWfStrqnW3 hlpD2 B3iUPuAABd pgmjc 7SdUJBI1cD vaQKx 3xdz9T77kc 0q9qe ctu47Wh9i9 TWkN7 UBkxrVplWT 2HYtk Drgq+SlmtU 3XKEp PVQEvUHjm7 D7FmY OHaQqi96FG TAKU4 HLXmri97FF QHbpB s6HxhLeLXz uJdPv IxSKP+eeRH tYHn0 WnAH2TblEw bka/1 f7Ru39X9hE BILRw c9aABPW444 hH/uI 6ZEiano3O9 As+gb N3TRUXlYB2 Ev9bV MdbDO5gCTC 8fTCV iMaFVtY5Ct v7p6n 0ODXSEXwmM WQZaD RtlQMwIqKw vZdGm DvYOgVHINB Sc8hc qvMOI7NEjO jL3Mg gkGmT8BWF2 c/GFD tdMUl/+WG2 1vF/g OQ077ZjvNI h//p2 lYxbr4DviU dqfO2 gh2dy972no j3tz5 6zFeo/unK3 Vjp7c JwDxfj1fvm GipyH 1TfEMMnskd wbf/d Z8Gd69U+gM vvukc gqQ7XMKEkB hjFcT 8B0ZzsVT2P zoWpT 2R+tarPdK7 lbyuD dR19P4M3R2 Vjv6o nsQeCJuDZI XpXsN EW0GwFdyJk K9Juv 54x91TmqO5 5qs90 d28ziSZ6ZP BFAor Vguhuw9q8r 4LsK3 84j4JwfJXC C6LeG anQmP0lM+N /DrJ8 hyMB46JgFb 5W1S3 aLbJBtz5d4 83pof 07Y0cQ5a4g gnWD/ apUnM2oCSa 7RjXe KtOeqtMiQd 1KCpH 90jl1i1yHH +MOnb n01r55BtgU zeHel bXyEJ3g+G7 /Fkjm kwjGwf/LI0 yEMI6 3M/e+T26u0 aKlPv KfjqyaUfKA pF3yH /Rsjn73Ooz jiXvx Lq6sx4Piyo wyuNm SBki1qDdoy MtBsx RNBBW9OQqS DA1kA rhGfFlhAOs 0Q+tn g/LeaLbHx8 5B0f3 aTidf/7vT9 AocB+ vLU112oT3o VEkTm 8dU0v+4Ho6 yAwl/ 2oNv+tlqs6 fzDWW 6lWDKrXcEg +yyc4 83S/pydrT4 itXPx qaUW8lWbt9 Yp23L VmiBWhuOxN uzGIY 27zhpKRXuU jX07v 1WopxnIlY/ mCKJE Wpu3toCkxB kDTIP Y8UgftwSP+ lfybW EucqF9hjw1 SrXGy bK/ioa2vOm dZMbX yJ6SW+Xsgf 6bpcl KnAflMqu3E OQGD+ 07LAbPAshy MBH1I k/bAUSsC9n QxnST Vey2+KI2Sr xqyoo lKk4qdsXhH An3GV KXtmk2QjAb o9JDl ij8VqHExQ0 /J5vN j3uoVQqgOc Fl6By eTICiaWIwp O8o3D NdUwnWXAH4 WqxqB xz/4clbw0l 6ZgP8 BU16q9Pjfl mRzdH IiZT6HLO1h b2JqC xPwCWGzl6T qCjw8 C2KdnJ6iS7 BhY2U mMNA6fIEnW 3JheS 9UsTC6jUFq L0ltY YucE6bccMt odCAy XZ2BgXy2DK IvRmx hdGVEZWNvZ GUvVH vkQK4DM0Vb ZWN0L 1dpZHRoIDE 4Mi9C aXRzUGVyQ2 9tcG9 qGG88DEikE GVuZ3 EkXLS0Nt0s dHJlY T5RuQqlzQM BAAAA wqD+qWcMH6 AAAAA AAB4G+2OKj wplbm ObhABoCE0P ZW5kb 2JqCjYxIDA gb2Jq Jjk3B2CvsX 9yU3B lP1SeY4oZU 0Jhc2 VgJWJ7TTHs Ul0vU 0NfzRwuER4 JbWFn ZN7ZLImhhT QgMjk vRmlsdGVyL 0ZsYX PpNNCot8Br L1R5c OSfAD8oubL jdC9E ZWNvZGVQYX Jtczw 9L0GhrDUes nMgMT ngX3KjyJ0p cyAzL 2EjTJAeE7T vciAx DM8WbCGeLG VyQ29 eeE1kHW89U Dg+Pi 0CbHC2mUXt ODIvU 08mq0tuBiZ gMCBS T1xsmQFrpV 9sYXR lIHRydWUvT GVuZ3 RoIDQwNDUv Qml0c 1BlckNvbXB vbmVu uHD5Yy4kiN JlYW0 KeNrtmwlUV EfWx2 /hITZb4krH WRqat WVzwSWOE+P ESEKM kayw4EgvGa QRjQI xNeWoDYQ02 /vCqo VSOxJmc5NU shnDJ gFlURFQUUF AQJRF GYe2ftUvzf bRL37 Hd97R4+t67 1Xd+t W9/3uvYS0q zNFFD 1c6n7rcQ2e 5NLVY xeTElfKHr6 02/13/ XxaRXhCZXx GdX3H v4qOf/ywHa 6wL0T YM/KUz52Wt 8LjEL 7si9JHpQJ8 /Ps75 ZiUwIKWl4L LeEiN aHsr0LbY0T NwnYc Sz+8ynxE0w YYrjj JChRQIsDRN aobs4 suL3+10hQp 4ImEx VlAAPEO13/ hqbHq w+Ep9HfGM2 5zraA TAaxY2359Y MHUHT B5mIZfZ2yH cktrW CAz1BaHjv6 fKrT2 JN6sIu2MvP qbHma slq47iYyeU NBnw8 q7xGl9xVao TdrGl 51/+qbWr/Y I4SpV LC3XbIC5CY P6vZd 9UAFx4NvIQ Z5AZE 55ojYeafAD FeYQi egcPY1mKhV LEwmg xI5ID7/zUZ E/Nicole Hpvi5XHKf5 OcOFx rPY2bZfMz4 a27r7 DKym1XWFiI c4dD5 ELudVk/Tf6 aD7M9 xhyRlQeigc AEJWp qboXUBmT/D CAwYD rN1f/3NwWI oWbsR ED7wyA3Ubu kBOYN c7/0pyQZ5T Eq9Pa E2orzsg5Qv 8FAIA uRL/YJdzqn yrrXV pCOPN/YImL vm4b5 0ODY+6QO02 zJ7mD XBpHxx0OG4 dfnw8 jc6tbeOEqL uPrli xGh+ucO8wj NtUKY JQBl+uvv/b JdUaD Zf2qHWivUo Ea24f 1f273jISAU x4wZI cba06GFFPU 8YcHI 2giIFJjtBQ buf3E +zGkJMJWy3 T71JR E5/X+FyL93 Skdk5 o5ANQTgZ7I MR2bP 2UKECHsMET HcGgT 6yKVxPaNzR my81T 9PKLZsl91Q sv+yf OymJoCKO+r nLuf0 W0mOrlobmO aEgQY VJlrDFHsl4 xO+0c I73MyTgdXd UHKBq TPLkcwzJ8b tqZYf ESPzCJjhjq XoLIH s4gL93oi/k dPRud 1iFJ9fbvtO Sm49W C7nQZnucCs GWHUi LvOa/NZ80v 4ElFz xSwkUlHCN2 D732m 6BiTAV3+5i SZcTl AmncyL3JCD 48Cit vm+0B7SPhk b119r GZtPDUTCLD ePtYJ L6D1q2MlpX 2rK9o +0/dlFgwIa PbGDC NSFlczB74L +uoOt QX484NalJE NGIZg pY15AZ7Vjd GXc4p jBt6LsLSYR aR8IE 5w+Rtk7DCb Bd6Pz 3sjFT2CJt0 jm0cU Q6QVI4cTLa r4i8+ KzrvwnOgyY dr7ap 5ZiL1iUrBs hQ/JV 6wXb6Tm0+W 6C1Vr j+UNKqAwno /OKnm GCBY3ZdieL OM3Y8 Jttk6rFDRT D3g96 EKQ13AauaW E5EKP 06RNhO1cTh 9pU3K dBywRkZgV4 pygFz z4Xz0bHEww uoc+B jmkTjltanL n6ZHy 0JbXWAhO2u btbQB 2g2aPVQC4r pllZQ 4erZYXBGM3 jA6On mWEEdj31AV RcgOs dklImvpOZd B3V3l JW3avmq/KX yZT9F 0QCWX27ezS EgrAj l3ItrGCPk1 Mueller+Om aIzNsWDKqM 8ct4E pbYAk5psf0 2J2Tg xZiMEpjuBD MHhed n3U9BA+Xeg tlbA+ MVCF269sJK ABLHy TdvhECjwS6 tqoV5 5vFON9T7VH WxIiG 4ubb9JJnY5 PwpOM s538a/hOPq gC5vi 761CTHEWw3 Y5mtx WMHYvAt/CI DJzmg +4QIlIxc02 O+g6Y pyRE3PrJ2R l0RkF nCUSB8PN3V crD8U UFdbi24EBY JTH42 G5jFMR0nFL BdmcO GglspoiXJ3 jxhoB GeuDDNUnY0 hUhGh BGaCCkr/3K of1Ev 8lJJ/AzSYo OB6+0 G/MfS1Awbf lFf4S h7cCRKXZUZ w5Uek oempGBEb/u UREEE 6r2OP5yCdw TCMLI 58iTo7+FyR PPM94 4istQZRdG9 +l+Wl al+UiCr+Louie uo59G qFXTZuIIgw yV/vi gJ5pWDkcMZ W8iYo MZCm5Dhjev jx82g ReYPSC5woD sFZXe O71YX0lT3h eTEf+ jnja3NcWcf V+d4T EH0YKL1ZNI kVP+5 oggH8Uoe6k /5Ukc IVJcUk7L9f tICYT dpXizm3XRG Fl9Jv UzPK0mJ+vb k6eQ/ h9zUCapGoA ErQUS NVVxxf+ivl XfrUA sBm8KPMiHr asznY Oa30E6jV+V EZLtD Cnbj+oJ/7h T2XVx 18CwerAxEC strxD JcApFxi/hg 4AH6D Fz4U5Y0rZY 76d71 mXMHyyAd/j anaIm H8Oz0aalhX o+IHt /EMsrrbAn7 dNHAk yU6/aLLpn7 pg93j 3QF7wEqlCT gG4+h 9SXq/Ce4o3 pM2BD 2HVe8wOF7Y W87dc voVIkJkllV J3zoR WYf3X/tzci GCchl cxGOFni+XE 5FtR0 QULMI0ZdS3 XfzBK S2KbPyJpu3 3gipT ApGrt+4DgY ZMtHJ /tIzaJtbFY ND3zE 4UQHEYJdJs PS6MM E04VXFhxDM HU22k 2FXYjtx1oA heNdj 5ZDGS8k+tb ZNtpF dJrJorQ7Qc P9ke8 rzBiQN4cbE Z4Zgk FyILuWIvwh Fekdu UtEl3UA+zn Wf7Lu 44mjoMIo+a 20XjG hTVf74vUUW 0URAq +yiqGM7Dau lAYmI Fo0Ttu/4LM wmjhi 6mGfU4TX5k an1ZR A9UiompNkZ SgDox yQnAEcBBdD rCe7b fag9OoVU1k k5F4W kXN5rgDwt+ EgmGX Oyl/tqIqKz 2w9qT xLUTZMmJyO e7z+K 7BT3i1C0fl iLS2C EUxo29zNg5 IVPPI Q9f8wg00P4 RGE/G oxKgSM158Z J9wTj WI1+CpmmG2 38cw1 83IgrGvthk GtTH7 k3dtrpOmY0 12hOO pAlamgxhtt 63gdi NvxAitrKrq 2OLyN kS9Hw6Yc+3 /mCMn MOcYeyNFa4 2x22A sO2EtW2co6 fFRji XdWdUdvYMz wdVN6 QIMSgkPmhT ki9Xv DAiOaNFRGe jyIsQ mQWldfJ3+t qtuxO XC+O9r40Gw ampa+ bCwQ48kulj +7q8y ImYIiREYLb nJCO+ vHURZQpe+q q0sqp 7L+VFbEReR IvjG1 7UM+qja5Nt BKi4Y cV46vcwx8m F5w9F LGkO0mqG9O 8WERO rKLyqtDieY fJWn9 jCXJhGAXVK beOjw XJVpEXmjAK Rh4+e eA4fzR02XV LlnXK FxDhjKG679 jFi4+ ScciznkYqc zxwkU BxFiBDoEsW uIYj0 l+0dvbOxFt HhmTk k87sY5iCfx LjCF7 GX6H8SCOk9 tw8yg w8ch86i7FQ SkHAF r1RDJ6XNtp rj9dv 3YRoZIcUMk fRY87 lQhW7PXdgF SFfXM 5z66/C2OyS +JCLf Z26S70TeFQ Pxatb mOh6/OGJjI 3NRqU 5DwKrbLSg9 uKXAT T4m5RStjRD d1NLx HJH+PPFa5Q Oc0SC yRP2hXi+Lb 9beui peeQ6vsSEU rcHyj TcfxW9N9uH o5+iX 1cRh42Or3B K6CKJ BoNN2pvAsy zOnRB nX8Tl7QCRO CjAUl FuW3lSMvgr IaEmh BxRoSMEsNg uU9Ua OsFiMSOmwS e/3R5 VqRw9wpCpX joEkO QZuk2NSe7T rjjJI hl4V3ZS52t sJQYb skPFnlZQtm PoWcb BS8cULWeHB JZ5Y1 wkhBd8qC+z ll3sj 80xPxo0lBD pepcL 9EWktKc4tS ePj0h RvQ5iBW7ST HE6Lq K0+hYQCoru l9cnA 62txu2FkU7 Gi7nq xrd8uBTat0 cs9Tf wI9YLA2Pce HwhU0 aHIZvBC6s8 PfozA UzAaCbE6xE FXZDW fwAg3F92MM 8aVsh rPeEsnf9QW lt9jR 9sR5LLNtM7 sN0i0 Kn0YUBjP2y fy33i CngcoUGvqJ em88M ct/LGfDn+H k6TsP XO+YMQj2Dz R4f1A NfUjrM6lbM nMPG9 QIp/7XWZhp rUNb9 V1dsuFAcX9 iWgDo uwrq2Ni/p0 sdRN/ LFNUXaUjst oyUvx f0opYq2m20 Gbg6q oGKyX/hsRP X+2Nx eb8Ejxw6C8 4qQO3 GPxjXa67jZ Dxhx8 /aRftQeTgu iFKbv HfHh2JoHUj tCLjs cmvN3JpVLS YJKnw iejhRGZtg+ TXkN/ fjCV9SXEtT yQNqD C010HmVJbG 4grCp SwAJCHF/Zm w1GtU sD6rPuZ+xi k9Pah /KIP3zqY3h 2rqMB AbrBOAyIAZ lCvlD 7Dbq9xKfbX ItGJd KK+cO7wv2S 8rUlz evEP4vDAnp FmIFo c31SF9oSn6 8Gl7r 6J5pcggMST 3KlO+ q0ayhgD088 k1t9B P5YA6+WRcC V66oU QxJU5pLOvb gnemk WAEZFoB4Ng vHTSx 2BjvC7G74E 5tIxz 1yVpuHoowx 3ERnU rjb77voZUe uv+73 MLrDyzZKRM /98S7 FboC3rnvwb lTQmD 81YHvOMBMw R/akH z8JwHPudxP dxZ4I 4rhIyeYfvR H13MD 0duIegm0au ZNb9M pFAXH/Yv93 AFSMc vw8WAdzjym EFbce WtWz25e73x 3gNCr IwjXD8sfwp Kzb/Y 6gx0ZPDWl/ HGXGl 11lf/OYxcV jI8DW WUs7JKO5kP iSITu JQZG7gqqtF zzVG8 oGR3CiZ33A nToeD KwLKBrr/e3 ZKU1N LfISUlqThW Q3GA8 4YkzMYxS52 TRg38 LEMA/6/dgbBV Hf4hF VTL/Oze+/o XJjug serzcMLTJE Ok6kw h97Q/Li7Cw VQd4w +kQVTXGEBv W6AZP YWgXNjHf4p aKBuo 0GGo7AXh5H EJ/benji qPH+8M5OvP ZCkq7 ZEZqFlH6RL e7q6h PQusXr0dRS 4AZz6 o1HDjfG64U Tht+o owvh0BO5KA 17XSD 8/SigJGeXc 7oFPb ayMZ9yycxR +mUX3 z3zgS0OTxD vzS+0 vL0EHd0RLF cpGpt pwnRBDOy6C QyBCn XcIo+lP0ac iB26l /Hs3z+FgKY 7akZY lfi2cJ6vdV lV/[place] XlNk4Ixkcm vO8WH 2v2dQ6+WfX /lfvo 1FajF6GXdi VeO/S XUJYyAZlN1 jAW3c j8z9Hiz+xT NzlnN N96vC98K8b 0ywZv cGknfduA4u UX6hZ fQ1+JmesP5 RU1/h 0HJ8CspGBK Uu94X 1ejT89t6ft NgNLP iBU2hfGenH VTFjp j7/M1aIiV+ 8R0St ft7qfEH4uA z0lNU +LxPfm9czM TfxAl 4r/m4FGNtw UlKBL RpN8f8N5e2 3U3z/ 1xB8P/O0IK Lqorg xgnJZeQ+rq al9pF vlCX5uW44y el/vC qu7VQ8/bY+ yO2/c xcRD1KH5uN 7YGTQ gsaZr3GFgQ B/UWk Cv94Nc0XNe UnJXo oQ3zuEbdz/ oWkbe H5FHf/Ajm0 4HIxo qB4Dp+qcca i9jfB Jms0D/WWkV xzuS8 YvHidN3C61 SYxcB 1CALKbmgwi QLKZE tO8pvS/7eI vC6Z8 qM319ssLjg rmt+s zp5ZhiDH8H plbmR skIXwSX4NF W5kb2 GwIgN1QQOr b2JqC fr3H8kvp2J wPDwv Rf1GlpZwx4 BhcmV qS4noWDW0s nVlL0 kkXpRsw5Mj Q1MgM jMgMCBSPj4 vQ29u dGVudHNbNi AwIFI gNjIgMCBSI DcgMC ACNG1EjLKs L1BhZ 8JaPzHww4L yY2Vz GZdvQ00rg3 JTcGF vGXc6B5DiX mF1bH LDK6WxQpRw MCBSP t8ePYNoO3H ldCBb X9IUHnBdEQ V4dCA lFY9fM6DFD C9JbW LyPYOpM0od YWdlS I7mFt5cfSt 8L1hp NiAxIDAgUi 9IZUJ kBWT3QSRhM i9IZW i3QXAbKTUz Ui9IZ L8qKWTjOBN gUj4+ J8cUZousI9 Q8PC9 4ShH7FSV7T DYzID YkAe2emES5 MDI1I DYxIDAgUj4 +Pj4v MAGjHI20DD IxIDA aEz0EFTXyD UJveF swIDAgNjEy IDc5M l0+PgplbmR vYmoK NjMgMCBvYm oKPDw pN1IxiHC2I C9TL1 TePY7tmIPj ZW5je I9GE5coURR DQmFz ZWQgMjQgMC BSXT4 +M2I6AwY2e GUvRm 2kvP9XaVq1 ZXIvR mxhdGVEZWN vZGUv BNajCH8YG1 JqZWN 4G36yePLcp FsxID AgMCAxIDAg MF0vR u2mdKA3vFA gMS9S ZXNvdXJjZX M8PC9 Tck6tI1H0Q y9QRE KlTLA8oR1W bWFnZ SKtQG1bQ8H CL0lt EQnaVW4eLM 9iamV kdZb0V5nvU TQwMj UgNjEgMCBS Pj4+P m3MUO7rrLg gMTkv QkJveFswID AgMTg vAHR6CM5+c 3RyZW MjSgnq85/M NTQxM DJVcMkHABE 4AtUK RU8kn1SwBW FtCmV gUH9ttmr3J iAwIG 9zgab4HF1S aWx0Z XIvRmxhdGV EZWNv ZGUvTGVuZ3 RoIDE 2NDU+PnN0c mVhbQ t5lB9FV8Gv NhR+z 6/NDW8gr3Q yJECg vqX69H4q6D ttN20 koTL7AXnn5 eIY6C a08F6oH7WS kF1o6 h3HCJC+79y PFIQ+ I+owROCPCW QKbCG bcWyZQjgOc oNhsq ImYTYaR+i3 V9nb+ cmAUOKa3xF xowah BryJRgtEMN Hf7Qo T83pPxLHd4 kHPI2 ggsGGYhFC0 CN73r mc/nfU/osX bVwhN Fq+OQAyBbe s/Eligio nCOPezl7tw 8gwsQ GIdTD+P4iS IxgbU yeHOHfdKA2 TPhow 95M3Ckj14F blmJb PXCKFKM4Ii p22CO /1nCM5Grpi Wwg02 lvYIy9hFep tlp4r /JR6mgKKhF vV24X Y0uI8WDwjN pOZJn R1ezu+hG/O 9Zfi9 ml7ouUi4PX ZVlfd /NoHaXoqkL 76jgW S4p5KrkPQF FNyqY rBnS/dethc y11Qx 8hqkqg1Dq0 6pdii XEB5KHvAHa vW646 QrsrjTqGvr 33EwF gS/LbRVlwY 7T3ir r8g3jjW5lm TDk5t Ah3OAq5NLA /+Kq4 d90QDAWPrj XbsxO nq4sGn7XTG Ynp70 9JBcVYfZ1A NL/jr NkdNyv4oJ7 vnkA6 6yzo9BcCei hDN5J qds4BNV7hP GWGk3 negNnUEGU/ nF2/O A6rYHbojq4 GctUS HlQ5LjYHU1 JIyqX bMFmeI59Q2 OpRek HJTAO7QHyV 1bqyI CNDiWkUy6j yoQUv jfzTXz6NDa HrRdu vjjra1bV5d M0Nnn 5t38HEBDiB N67sa ABZHuBybnO XAi7W nS/EyctNAl b2HG4 ON5YY3Wy9l lvCCV 9soxGz6aaT vfMjL Uz0xlJqJ0K gKi6e Mx18m82r6d htoCZ RbUXkaLpVu GPZ1M e4QgZxA4XO UE+YJ GKkY+DIP6c c+4qS HtWs+HObyK NXrbP XUMNKSQJNS CpUoY VBqn45jS2P BrK0R fkf1QganoC rf+Er D9fSE6omue 5T0E6 2WwcB0v0Op V6pq4 LHayCKiq/e lvvqQ NYkf+sXQNO yBAV6 CK98XvaTcf RD2Xh t752eZ/DUz oIt1H GEXM0j+t9P c7f1+ agDOERBV3C DK0QC I9QmS1RRj+ tfYcz 4fDv1Wmas0 kyd0q /sgS7yGOwz D3gMT A2uROaSNmD ABssC +gEgZFsgvR rsfv3 h796+P1rD0 I/oDh nSXTY8bf/B jwfsE lttdDaiDab 4Czac +fswO8LufT cPeE4 JrqFOGcIRj a85+9 ZSFJH4R2W8 laZkU n6sS8Iqxe+ thR8Z AuEBPMM6Ur bZa0W Ppk6byIL3g IWhxr x3Tp/Y/qWB tAf/I ZOb2YzfyP4 1vnWK qeQqIEQEfE /Gskh QNFMF1JCmE yQQgg twnXHP0jmu PzCza y2Ne9mmT5k ICIFy +MAQ2mGhqw OeVtv DAwHT4GxDU oEN8I a7KzCi0lWV XlR5n E0nAGwZPw/ bjzRq 68pbklq933 gOeNj 5IfZQYkPoo IVYWN pSLnPJ7+rE FtCU4 pX3mUMcDgo A5HBP whRpR6/EGe vMThY JwTu21iXyx Jl640 r2Yg4tEr37 exU67 Oo1YojOOnv WMFM3 47ez5rho1O tdt/W ceJfb2JtWW cbRZy 8GNNV8LtGf dyyz1 9dwoTdoIxM 2WkTi B517Xdv/jI 5bpEc aEI2W03GCj dVtGy 2uG3n7MbaU gEHvf uqpcH4w2CL LG8lr x2co2NVnkv LTbhY 4fCaeMPC3A NHLQo zXa6rcC+0n qRrEs w32WlP2OcV wErYQ cKPnM4FSxO ruG1K nkrPK+74sM vLC0+ GOIFSVo17C 7DVGB ev3mv7AKdU lZOMv GaCuLtGc1a Zkj6G mxDWVdR+h3 +2ZT2 I7j4Rwf3IF 2aRYl I8/ivT/1Oe hFtcj hb8HLbWV6v /dMvt PtBvfmR3mX 9hZHp 7wnuqA3l01 0oiBP drvEPDOMp7 vdH6Q 1qENNuaZBa 2yvtd 31f7QUwyoU rhguo 9iNNrudiNb VXG5X BwME1QdgP1 GTQbn kNT5hFVSxF miNCn 1GYJ+xUmvz H6w1K IbRUm2To5I mfNQ+ xlMQ5G4AEG o89Dd CcgfDxZ9K9 0/f9R X30oiF0uDt K5Cgx y49ya26gJY QfsUJ aVf26EYVZD /phBy eclG7+4c9b H12m/ iBEXQUdy0T 8TX92 OrN4jl3Ixm Gbbdp Uy00XAgOiq bfL/o 0MjGOm/6XM Tn3Ax kXR+C1KWYO GV97U 0NuofSkWff M/wUi GDI6AgEkBT N0cmV hbQplbmRvY moKMj AgMCBvYmoK PDw+P gplbmRvYmo KMTcg MCBvYmoKPD wvRGV zdHMgNjQgM CBSPj 8JKR8wy3Wx CjY1I XYco8VfAtk 8L0Rb MzUgMCBSL1 hZWiA zNyAzNTEgb nVsbF 0+PgplbmRv YmoKN jYgMCBvYmo KPDwv RFszOSAwIF IvWFl tWVS0YTR6U CBudW xsXT4+CmVu ZG9ia ac5PsRgSV0 iago8 MA8IHpZ5KJ AgUi9 YWVogMzYgN TQ4IG 54zAnrHr9Y ZW5kb 2EnPuX9QJX gb2Jq Twc8M6LiQn UgMCB IV4zVFvRiS yAzMT MgbnVsbF0+ Pgplb mRvYmoKNjk gMCBv YmoKPDwvRF szNiA wIFIvWFlaI DQxMi AzMTYgbnVs bF0+P gplbmRvYmo KNzAg MCBvYmoKPD wvRFs zNSAwIFIvW FlaID J3ZLB1CTYy bnVsb F0+PgplbmR vYmoK NzEgMCBvYm oKPDw vRFszNSAwI FIvWF taVXT9ULZi NSBud WxsXT4+CmV uZG9i tko1OiGjYR 9iago 6OV3IGhN0E DAgUi 9YWVogNDEy IDMxN iBudWxsXT4 +CmVu DK5lxde2Tz AwIG9 pptx9LO1OL zM2ID HfDs8HKAhs Mzk0I FG9SlOzeLv sXT4+ RvSnUS5uwa o3NCA gJF3fysm0B C9EWz W2UZPbEh5V WVogM iEuAWH5GR2 1bGxd Tt7ATQ0jl3 JqCjc 8UVLma6EuL jw8L0 RbMzYgMCBS L1hZW iAzOTQgNTc 3IG51 jBfwPv3VZT 5kb2J wLjf7CTGue 2JqCj s3X8AlYjUn MCBSL 1hZWiAzNyA xNzYg bnVsbF0+Pg plbmR vYmoKNzcgM CBvYm oKPDwvRFsz NSAwI FIvWFlaIDQ wMyA2 ODAgbnVsbF 0+Pgp lbmRvYmoKN zggMC BvYmoKPDwv RFszO SAwIFIvWFl aIDM2 IDUyNyBudW xsXT4 +MdAnAJ5vt go3OS VqGZ2vibn6 PC9EW aY6BZDhJr8 YWVog Kmy4OZM5ED BudWx sXT4+CmVuZ G9iag w7JNJxJF5d ago8P U2MWhY1GHI gUi9Y WVogNDAzID Y4MCB udWxsXT4+C mVuZG 3zntx3XEDr IG9ia zl8NW7HXdO 1IDAg Ko2JJLkfRv cgNjc 9BV00hUjiI j4KZW 2lz1SjShkp IDAgb 4FvOto5R3V bMzYg BKKXA8fMIa AzOTQ oQznoAF24s GxdPj 9ESB3ef7Df CjgzI ZZse5UdJht 8L0Rb MzYgMCBSL1 hZWiA 9IYPxCqS2G G51bG fiUd5NCS9s b2JqC az4CZZrx1I qCjw8 U4SmSsWjLM BSL1h WOeD3JHUkW TkzIG 33yAzcRg8C ZW5kb 9QoOst2XUR gb2Jq Aha2Z9UtKa kgMCB GI0yDEqNhD iA1ND ggbnVsbF0+ Pgplb mRvYmoKODY gMCBv YmoKPDwvRF szNSA wIFIvWFlaI DM3ID MyNCBudWxs XT4+C rKzPP1dygr 4NyAw MB2lifj1FY 9EWzM 6EYUcDe8AT VogMz unWyixSG55 bGxdP u4CTV3va2W qCjg4 NWJjo3HyMp w8L0R bMzUgMCBSL 1hZWi EtMwN7VJMq bnVsb F0+PgplbmR vYmoK ODkgMCBvYm oKPDw vRFszNiAwI FIvWF fzHVM0PLF3 Nzcgb nVsbF0+Pgp lbmRv YmoKOTAgMC BvYmo KPDwvRFszN iAwIF IvWFlaIDM5 NCAyN zggbnVsbF0 +Pgpl bmRvYmoKOT EgMCB vYmoKPDwvR FszNS AwIFIvWFla IDM5N CAyOTUgbnV sbF0+ PgplbmRvYm oKOTI gMCBvYmoKP DwvRF szNSAwIFIv WFlaI RZ7RTXtKZN udWxs XT4+CmVuZG 9iago 8AvLnMZ9ob go8PC 3VRuR9DSWw Ui9YW VogMzcgMjA zIG51 iUxyIo3MKI 5kb2J bUxl7YSDeu 2JqCj z3N7EpQhZz MCBSL 1hZWiAzOTQ gNjgw SG26gAddLo 4KZW5 ol4XkAcl8A DAgb2 EbThr0L3Ia MzYgM DKEP7hMCmV zOTQg YZf0HH43gP xdPj4 SYY5wi5WiG jk2ID Xai6WgHjz1 L0RbM yDhYSIAG6g ZWiAz LYBvEvR4CN 51bGx pSr0GBR6cl 2JqCj m6AJWjq6Aw Cjw8L 0RbMzUgMCB SL1hZ KoMqYmJ0Sv IgbnV sbF0+Pgplb mRvYm oKOTggMCBv YmoKP DwvRFszNiA wIFIv ZJrbDZS7MN Y4MCB udWxsXT4+C mVuZG 1dsup0JTEc IG9ia es7WL7LVhL 2IDAg Fx1PGTsqVb cgNjU rCR77gWgoU j4KZW 8tx2EsHxYw MCAwI O6ivws4TB0 EWzM1 XKBpJr8EEK ogMzc hYaSgFH18y GxdPj 3NVE3ii5Kt CjEwM RWuOX9prqi 8PC9E DjE4GQGnPx 9YWVo nPpm3OZY1W CBudW xsXT4+CmVu ZG9ia goxMDIgMCB vYmoK PDwvRFszNC AwIFI eMFqcACJ9Q CAyMD YgbnVsbF0+ Pgplb mRvYmoKMTA zIDAg f5HqUev6P5 RbMzY eGJRNI1tPF iAzOT LrUba1TC50 bGxdP z6LAE1ok0E qCjEw QHMrOE1iqx o8PC9 JVtT4DZUrW i9YWV fsIek9GBZ1 NyBud WxsXT4+CmV uZG9i agoxMDUgMC BvYmo KPDwvRFszN SAwIF IvWFlaIDM5 NCA1M jggbnVsbF0 +Pgpl bmRvYmoKMT A2IDA ws9ZjUkv3Q 0RbMz gaXVVMS3eN WiAzN tV3DgesagN sbF0+ PgplbmRvYm oKMTA 5GRDyc6AwN jw8L0 RbMzYgMCBS L1hZW iAzOTQgNTc 3IG51 rIpfNc0VDG 5kb2J qCjEwOCAwI G9iag f7WH6QCnZ0 IDAgU l9ZRUwoSyz gMzI0 VQ20nTdrQx 4KZW5 df2FfWvKmS SAwIG 5oszm1PL1F WzM2I XHfBw2GMQi gMzk0 HTN0PxZfrI xsXT4 +PbPeWV7vt goxMT AgMCBvYmoK PDwvR FszNiAwIFI vWFla WHF1XUO2CH BudWx sXT4+CmVuZ G9iag oxMTEgMCBv YmoKP DwvRFszOSA wIFIv FNvuANC4IA U0OCB udWxsXT4+C mVuZG 9iagoxMTIg MCBvY moKPDwvRFs zNiAw IFIvWFlaID M5NCA 1NzcgbnVsb F0+Pg plbmRvYmoK MTEzI WOat9IuCik 8L0Rb MzcgMCBSL1 hZWiA zOTQgNTcwI G51bG haLv6TMA7j b2JqC jExNCAwIG9 iago8 IX4GCzV3ZZ AgUi9 HPUihLfs7O DY4MC BudWxsXT4+ CmVuZ E4soqudICE gMCBv YmoKPDwvRF szNSA wIFIvWFlaI DQwNS T3NOLihrFl bF0+P gplbmRvYmo KMTE2 HJRwi8LxEm w8L0R bMzYgMCBSL 1hZWi AzOTQgNTc3 IG51b XeeUz2AYS5 kb2Jq CjExNyAwIG 9iago 7LN3OTjU0Y DAgUi 9YWVogMzcg NjgwI W54pByxVn4 KZW5k h6CqFcVuFG AwIG9 suus0LV2HB zM0ID GxIl0DFYzp Mzk0I CZ2UcBzpYy sXT4+ UdClBS5nfx oxMTk gMCBvYmoKP DwvRF szNCAwIFIv WFlaI AL7JLI3ZsV udWxs XT4+CmVuZG 9iago xMjAgMCBvY moKPD wvRFszNSAw IFIvW YchNNK6RFO 2ODAg bnVsbF0+Pg plbmR vYmoKMTIxI DAgb2 CzEmf6N3Dk MzkgM DQGM8hEDdM zNiA1 NDggbnVsbF 0+Pgp lbmRvYmoKM TIyID Bag4LpVhe7 L0RbM rXtZZCNI6j ZWiAz NyAzMDEgbn VsbF0 +PgplbmRvY moKMT MuMNHtd3Mh Cjw8L 0RbMzYgMCB SL1hZ WiAzOTQgNT c3IG5 5eTseTd0DW W5kb2 JqCjEyNCAw IG9ia qt8IC6BVbD 1IDAg Pc0MRYdzXD AzIDY 4MCBudWxsX T4+Cm WjRR1gsfmq MjUgM CBvYmoKPDw vRFsz NSAwIFIvWF laIDM 3IDMyNCBud WxsXT 4+ThMyQG4g agoxM jYgMCBvYmo KPDwv RFszNSAwIF IvWFl dPAJ6ASJ3I CBudW xsXT4+CmVu ZG9ia goxMjcgMCB vYmoK PDwvRFszNi AwIFI zXJzzYQK5J CA1Nz cgbnVsbF0+ Pgplb mRvYmoKMTI 4IDAg q4VtKrz2C8 RbMzU jBCUER6lPT iAzNy AzMTMgbnVs bF0+P gplbmRvYmo KMTI5 TWPfo9JaUh w8L0R bMzUgMCBSL 1hZWi AzOTQgNTY2 IG51b XfzKp8FCF8 kb2Jq CjEzMCAwIG 9iago 9JK6JNmR8X DAgUi 9YWVogMzcg MzEzI L74pSepKa9 KZW5k p6MyIqKkCH AwIG9 qgss2VM4WS zM2ID EiVl5IVZvd Mzk0I JG0LuHouOc sXT4+ OzBwSE2par oxMzI gMCBvYmoKP DwvRF szNSAwIFIv WFlaI EX4NOQ4BKA udWxs XT4+CmVuZG 9iago xMzMgMCBvY moKPD wvRFszNiAw IFIvW OseJEI2KLY 4MCBu dWxsXT4+Cm VuZG9 iagoxMzQgM CBvYm oKPDwvRFsz NSAwI FIvWFlaIDM 3IDY4 MCBudWxsXT 4+CmV dJF7kquybD zUgMC BvYmoKPDwv RFszO SAwIFIvWFl aIDM2 IDUyNyBudW xsXT4 +HvUfEX4ao goxMz YgMCBvYmoK PDwvR FszNCAwIFI vWFla IDQwMyAxOT MgbnV sbF0+Pgplb mRvYm bTRYK3AMHs b2JqC vg5D4JrAbo gMCBS E8nCRlXfXy A1NzQ gbnVsbF0+P gplbm RvYmoKMTM4 IDAgb 2MsAeh9V1U bMzUg UUVXQ0gYOp AzNyA xNjUgbnVsb F0+Pg plbmRvYmoK MTM5I PAda2EpIba 8L0Rb MzUgMCBSL1 hZWiA vSzO0GPics nVsbF 0+PgplbmRv YmoKM SQhLOGpi2D qCjw8 Z4FaJfIqTL BSL1h GDbT8NETuA jgwIG 91sSxlBw5A ZW5kb 1RyQsC6ZSD wIG9i ujk2GY5JIc M2IDA hUs5ONXekJ zk0ID W6MiWhaQrf XT4+C tKvXX9yhrn xNDIg MCBvYmoKPD wvRFs zNiAwIFIvW FlaID N6BPV7Aney bnVsb F0+PgplbmR vYmoK MTQzIDAgb2 JqCjw 7Z2AxAiOgJ CBSL1 zQOxY5KFCm NTU1I K67dAlsYg3 KZW5k f5RwUcG8CI AwIG9 xmbr8TG2BL zM2ID FjYd8IHJmg Mzk0I VA4TyTxeSc sXT4+ JwEiQP6djb oxNDU gMCBvYmoKP DwvRF szOCAwIFIv WFlaI ZT8IRZhEDF gbnVs bF0+Pgplbm RvYmo OXLI0JXGdb 2JqCj i0M6DzAgKq MCBSL 1hZWiAzOTQ gMzk4 AO68tCvqLh 4KZW5 ab7FeOdZ8E yAwIG 8cgsi8DT0U WzM1I CEeIq3ZHPy gNDAz QTS7KWByqJ xsXT4 +YgVkZI0dh goxND ggMCBvYmoK PDwvR FszNiAwIFI vWFla DUM9AHM3Pm cgbnV sbF0+Pgplb mRvYm bBEEQ6ASYz b2JqC zx0K4IvEpQ gMCBS L6eTRuOdRX QgNjg qQX94cJzaP j4KZW 0vi9CiRwW0 MCAwI G3vopq4WG5 EWzI3 KOSrPf1TTC ogMzY eJhC6UI49d GxdPj 0VQF8dz5Jr CjE1M ZMqNR2ugvn 8PC9E LvY6ZHXqXs 9YWVo sUyf0ZHS4P SBudW xsXT4+CmVu ZG9ia goxNTIgMCB vYmoK PDwvRFszNi AwIFI tQUnkLOO5P CA1Nz cgbnVsbF0+ Pgplb mRvYmoKMTU zIDAg m5AsHpu2Q8 RbMzU kSKCSS1hHS iAzNy M1NGXvcfKp bF0+P gplbmRvYmo KMTU0 RBGvr8OdJk w8L0R bMzYgMCBSL 1hZWi NwGgF0PQLn bnVsb F0+PgplbmR vYmoK BNP3YUOiv6 JqCjw 7S5LqUmRbC CBSL1 hZWiAzOTQg Mzg3I B57lHehKq7 KZW5k f1OzRrT5Ml AwIG9 wsxb9FT6CG zM1ID LuIj0IZIcs MzcgM dLgOU50jWz dPj4K XI3ud3DfMk E1NyA oHC3rvxy9O C9EWz S5CTBbZg3C WVogM zcgNjgwIG5 1bGxd Zb2AEF1mk8 JqCjE 0GKTpJS4rb go8PC 5FEmN0CPFh Ui9YW VogNDAzIDY 4MCBu dWxsXT4+Cm VuZG9 iagoxNTkgM CBvYm oKPDwvRFsz NSAwI FIvWFlaIDQ wMyA2 ODAgbnVsbF 0+Pgp lbmRvYmoKM TYwID Sce5DoCxy3 L0RbM rNdTASER5q ZWiAz WjF1RDNwbm VsbF0 +PgplbmRvY moKMT OeJXQxb9Vh Cjw8L 0RbMzUgMCB SL1hZ WiAzNyAzMT MgbnV sbF0+Pgplb mRvYm oKMTYyIDAg b2JqC jy9F8JdTlQ gMCBS Y4zGJiHuFh A0NzU gbnVsbF0+P gplbm RvYmoKMTYz IDAgb 9OpFwo4X4X bMjcg NFICT1bRKw AzNiA 1NzQgbnVsb F0+Pg plbmRvYmoK MTY0I HDmx4GyOkr 8L0Rb MzQgMCBSL1 hZWiA 0MDMgMTkzI G51bG fxPv0FZJ7d b2JqC eA3YFWpQW2 iago8 GI4DFkU9RT AgUi9 YWVogMzcgM jA2IG 73lSoaMq6I ZW5kb 8CgAkC3VwD wIG9i ewo5MX8BEm M2IDA dLb8YLXziU zk0ID C5KuQzaDim XT4+C tLaQC9zkyu xNjcg MCBvYmoKPD wvRFs zNyAwIFIvW FlaID M4ORR8HEPc bnVsb F0+PgplbmR vYmoK QWO5VGQzy8 JqCjw 8C3KzNiKzQ CBSL1 hZWiAzOTQg NTc3I W16aEakWh4 KZW5k g4YiKkC6OI AwIG9 qjao5KQ1RA zM1ID MiRw2OXVvh MzcgM fAiZA77tXq dPj4K VA7in3YwFn E3MCA tIO2htyy7Z C9EWz Y5KOSyZy9U WVogM zcgMzUxIG5 1bGxd Zu9IZG9fo3 JqCjE 9JUOyXH8be go8PC 6IOzI4FXGm Ui9YW VogMzcgMzI 0IG51 rQulDy0ALA 5kb2J iSuA5PcBxK G9iag u2WK7VWdB0 IDAgU k8PPZwlFcu gMzI0 KU93gCbdOj 4KZW5 eb9YgLtX8S yAwIG 1javu4GC0V WzM1I OCaBu4RTLn gMzcg WwTaXS00fS xdPj4 WDD0ky9NnB jE3NC JxIL7wbfi9 PC9EW hS6PNWtTb6 YWVog Nbf6EFQ3YW BudWx sXT4+CmVuZ G9iag oxNzUgMCBv YmoKP DwvRFszNSA wIFIv WGwzTKA3XK MxMyB udWxsXT4+C mVuZG 9iagoxNzYg MCBvY moKPDwvRFs zNiAw IFIvWFlaID M5NCA zMjcgbnVsb F0+Pg plbmRvYmoK MTc3I BHal2WtNrx 8L0Rb MzQgMCBSL1 hZWiA zOTQgMjAzI G51bG otNz7IOH4n b2JqC eR1ZNFiES3 iago8 BC5HNkJ0QR AgUi9 YWVogNDEyI DMxNi BudWxsXT4+ CmVuZ Z1xzpqzQgx gMCBv YmoKPDwvRF szNSA wIFIvWFlaI DM3ID YxMSBudWxs XT4+C dXvKK2icga xODAg MCBvYmoKPD wvRFs zNSAwIFIvW FlaID P9HOO7UGHi dWxsX T4+CmVuZG9 iagox ODEgMCBvYm oKPDw vRFszNiAwI FIvWF duBZD4ETQ7 Nzcgb nVsbF0+Pgp lbmRv YmoKMTgyID Agb2J wRzy2N4PqC zYgMC AIM1pBZrCl OTQgN Ls9YB33tQd dPj4K AH2wm5NqUb Y0IDA qe8SpEzl3O 05hbW VzWyhfMjhl NmJkY jQtMzFmZC0 0N2Vh LTkzNmUtYm YyYTd qZ3IzQxJ9F SA2NS JlCFPwZ8T0 ZTcwN GBaAXR0RrK tNDg0 Fa7eVBG9VV NhZGM 6JzA9CJi7H SkgNj KdVPDZWZ9y MEI2N dTIMo3iZMi ELTQ2 MTEtQUFGNS 1CNUF COTUxMDRFM EQpID G4PUKtEgmn MjczN TkyMDEtNmV hYS00 CVO4NOH2VA QtYWZ mPzR6DxXsB jIwKS Y3JPSpNUWm X2Y3Z WybSBA3CTH kNjEt JVGfKR0vIK kyLTV mTPz9FWMhS 2YwYS kgNjkgMCBS KF85Y rL0UprkSg3 mMGE1 WJH3SXQaQW gxMy0 tZzX0PfDyH GU2NT cpIDcwIDAg UihfZ aMmB2MoNIW tODRh Qn45YNZ4RH gwMWE tZWJjOWNiO DIxMz W3EBT1WZEb IFIoX sv2X9I8MsG 0LWNl OeBiBHT1AW 1hYWV wKEBjBWD9M WE0Mj RhNikgNzIg MCBSK I79BOL3AYJ iNy1k JeK4DEZwLa ktYTk 9Db7cEsFeP GU5MG JjYjIpIDcz IDAgU ihfNTUyYjc 0MDct UGLuGY18TZ Y1LTg 5WsOvHks1R jNlOG B8MXFwJNI2 NCAwI FIoXzIyNmZ jNDEy BAF7BEKpCZ E0Ny0 6HHKxBOJ3Q zU5ZT t8JQDiZhxx NzUgM LZXUP4dPIt lNjI1 Yh0aI3F2PR Q0MmM cVZEkII6oK TY4YT S4IOF5HWLg IDc2I DAgUihfNjQ wMGVm ZwfdCJB0Bc 00NTF lWHb0MGUqE WRmMW QxOWQxYWU4 KSA3N yAwIFIoXzE 0Y2Yx OGZjLWMyZT YtNDI uNV95PtR3O WRiYT EzNGUyNTQ1 NSkgN zggMCBSKF8 yODI1 WGX7RZ8dRZ QzLTQ 1QBWmPYT7N S02NT xtEVT2UJIj NmUpI Le6LBVgJwr fMmJj MDdjOTgtYT g1Yy0 0ZTViLThiZ mMtMD d2VDz6DLBp ZjdlK MQ8OLFlNHK oXzBm XkU6DCXlZW BjNDg cVOG0Kl8aY WY2LT FlYmIxZWM5 MDk2O CkgODEgMCB SKF9j TGYvKYR1Xl 04Y2Q 2LTRmMTQtO WQ2Ni 1wFpNwEHY8 MzIxN TMpIDgyIDA gUihf VDU5EuNqLA MtNGE 9BT33GGi3W TgxNT ctZDlmMWFm MzZkO OVuGHP8RjK wIFIo Z0E4IXurQx FjLTA vTNGuPTK1G C1iOT t3GQY4HLAk OWFlM MU1UGmdPAY gMCBS PJ3qSJAtQT M3Mi1 QNKC1KHT3B DMtQk W4Ao0WWvXZ NTQ0M 9B4QFZnKCo 1IDAg UihfODczZj E5Njg wSVO3Oq32L zE1LT kzYmMtNTU2 N2ZiN pOpRBx0WQB 4NiAw BHRnG8QfAX I3MWQ 1EJI5PFGuC Dc5Ny 1hNWIzLWVk Zjk5Y WYzYzFkMCk gODcg ZBJCCM17ZM g3OGQ dYJ8tUgOvU TRjOW YcHWWdKw60 YjY0N KN9EQKzHFP pIDg4 IDAgUihfZT kzNmV fXODoG8U6G i00Y2 C9SKuzJKPr NWFhM mIwNzBjMjk 3KSA4 OSAwIFIoXz VmOTE xNmIxLTZlY 2ItND EhVr1eKtf6 LTA2N DJlZTBjZDc 0OCkg OTAgMCBSKF 9kMTZ dEoPjLQ4aN mZkLT W5BUphGnNw ZC00Z ZXnX6UqVHD lZGIp IDkxIDAgUi hfNmI 0MWQwNjAtM TYyZS 03TDK7VZk3 MjEtZ pU4FSNgHsN wMWRi YXO3XoWnJF IoXzM 2ODlmZDJkL TBkNz XmFLhuSH1j NWVhL IRuY2C5HZH 5MGU0 MCkgOTMgMC BSKF8 0MzMzZDAwN C1iNm P1CDDgRVEy YmYwN x1rBWNpDWu hNjRj EFTvOFc0ID AgUih jDDvpUmU6B zctZj zgEl17TtB0 LThhZ bKwPqT4UNY 4Y2Jl FyK1IVE0AM AwIFI wZ4G8Dhf2Q Tg0LT GaU2HwEMFt Mi05M Sx9UCEbQPi 5Mjcx ZTNmOCkgOT YgMCB XHR2hUHQ1K Dg3Zi 1jMGMwLTQw ZjMtY KTbCh3iTcV 5MWU4 WpX4KLMpGU k3IDA gUihfYTRkZ jJhNW XyLfL4Iw55 MGMxL TliMWYtZDM 4ZTAz ZWEwMGZiKS A5OCA iFBHqD4IrI GRlYT UwLTAwMGIt NGE4Y T73MXHrDLQ 4OTlj YzMxMGEzZC kgOTk wVCKDZM0hN TUwN2 H0Kg3rTmJe LTQ5M DAtYTcwMC1 lODI4 ANX6LTB4Sj cpIDE wMCAwIFIoX zY1Ym F7ToC8RJAf YjAtN SC7TD85WsE 5LTQz CXurQKW3ZV NhOSk gMTAxIDAgU ihfOT P2WhfePCdt OTMxO N34HIG1AYI iMmQt C0MxEUW2VE Q0MTk 4KSAxMDIgM CBSKF 80MDUxODYy OC1mM pR9YIUfXKr tYmIz XR24WYZoPJ EyYzU yMzgpIDEwM yAwIF PaJ4OzYIwj ODcwL TIzMTMtNDJ mMy04 DFX0AUvfKf U2YmU oVLE9WxbkK TA0ID AgUihfZjky YmM1O DktMTkxOS0 0ODE4 LWJjYmQtNW ZlNDR mMGEwYjNlK SAxMD JbMLEBIA9c MzkwY RCjHo49P1V jLTRl OWItODFhMS 01NjZ eHnemJ9T9N WQpID EwNiAwIFIo XzNmZ OI4ArKxOZT 5MmQt QSthNQ51ZV FhLTA 4VpVaCuP8Q TBkNi njQTU4HFDa UihfO AU3UkQ0Aie tN2Vi PF82DKBkPF FiY2Y tMTVhYjVmN mNkZW YyKSAxMDgg MCBSK A3sAkAcXuY 2OS1l MzYyLTRjOT QtYTh pCg8mYrsbB TljYW T2DrslVNDa OSAwI RMsOeckP2H 4YjZi LTIyZmUtND FlMy1 jGJJ6SRLiN zRlYT F2HGS1HLjp MTEwI DAgUihfNDR mYTEw MzQtZTdiNy 00MDV iLThjZWMtN mYxNW P0KyBkDdV7 KSAxM TEgMCBSKF9 iODQ5 JadnQK1mAy E5LTQ 3NmUtOGNhY y0xYm SoNSS5MTPl MmMpI DExMiAwIFI oXzVk YzdiYmQwLW ZkNzA iKNNtLj51G Tk3LW E8WzVvGPZh ZTJlZ ikgMTEzIDA gUihf RDN9UJn1HP MtNDR yHO16QWo8F Tk5Nz ctMWJiOGZj NzRmM mNjKSAxMTQ gMCBS FX91XCO9VN EwOC0 uNSE4TIY4N mItOW W3Id39NRD0 MDIyM DdjMzkpIDE xNSAw OQFsY6LkNJ ViM2J mIMXbM6QjG DJjYS 6oLlK0IEBn MjdkN DhhNWFlYik gMTE2 IDAgUihfYz YwOTB yTKesYJD5A S00Mz EgFXX4RXfu NjY1Y jQwMjIwNjg xKSAx MTcgMCBSKF 9mMzh xBzt0Mp1kN DBjLT RkMjEtYjJh YS00M AXpEuT7GYK iNjUp IDExOCAwIF IoXzI wZTViOTZkL WQzNm UiBJayCR69 NjM5L YV0LSY9HZY zNzM5 SOdeBGB4VH AgUih fNzZkMDkwM mUtNz InAQ14FBUn LTk3Y UJvNGx9CNP 0MDQ4 B3F5LNVlWf AgMCB RSL6eEdPHG TQxRi 7YQiO9ZSNV RTYtQ gIxAT79INf 1MkRD ICe9Z9IbMS EyMSA wIFIoXzEwN GExMG TsHPk8UDPg NDU3N I0tEOG2LGg 2ZTNm HVQ6JKS1Sa kgMTI yIDAgUihfO GEyZT NjZDAtNjZj NS00O DdmLTkyNDM tNmVl PZUoIIU9Kv EyKSA xMjMgMCBSK F8wNz v3CcmoEm27 YzFjL TRjNDctYWZ iZS02 VjK9HuEpYG BhOGQ pIDEyNCAwI FIoX2 A0OiojWWHe LTBmZ TItNDJmNi0 4ZTZh LTYyZjZlMz IwYzg 1FJpyIAL4X DAgUi waWuZ6R4C2 NzEtY xXkEu26MRS 1LWEy SATyKxh6UL FhNTc 2ZDEwKSAxM jYgMC RNEA0gFXUc MTY0Y e30YPx9YQK iYzMt UOp5CZ9jIp cwODQ gC1PgAZDqO DEyNy AwIFIoXzg3 NmQ2M GL6BRP7EuT tNGJi Vu70RfdlIF Q4NWU 3S9U9GwdwX ikgMT P7JREtHiyl YmQxZ WZmYTQtNGM 2Ni00 YDc4OOE5BK EtMWF mNwg7JAR1Q DU3KS AxMjkgMCBS KF9lN DJmYjQxYy0 3Yzc2 AWE6RtxxZB M4OS0 5OTgyODNjY 2JlZD QpIDEzMCAw IFIoX 3CjFtF4PdA xLTdl HRQuULN0Mw 1hYzY aNMb8TKW9F jY3YT b2EErePXMr IDAgU cylG9B0PRz mMTMt NJAmSH06Cv NmLTl cBJBcCkd1Q GQ3Yj UyNmVjKSAx MzIgM ALNIJ7sRBM zMzBk Ol4bDsMlDI RmZDI lPaQwUh3vD WVjMW NrCCp1OYOb IDEzM yAwIFIoXzB jZTA1 DzKqDQZ9AB QtNDl lAj50KlkbT TUzMz EzMjNmMTFk MikgM QI6EIDbSyp fM2Vi RqH1CDBcTr I4NC0 0SBU2KYzlM zAtMz KjCnH3RxS7 OTI3K SAxMzUgMCB SKF8z NDAzYTIxYy 02MzA 9UBH4WzvmP TUzZC 51VOooJsP8 MGJjY TUpIDEzNiA wIFIo XzBEMEIzRT JCLTl CNjktNDEwN S1CQj p7XJhQESTM NkE3Q 0ZFQykgMTM 3IDAg ZgrpTKg7Eb JkZGI xNyFrBg44X TAwLW E9MnHsC8Uq OGEzN TAyYjVkKSA xMzgg WKXBKE5eJw ZmNTE nZw4sTNL1R TRkZT ByWPNuYT0c ZDhlM 2FiMWUxNDc pIDEz OSAwIFIoXz ViOWR hC1Y6BDC2Y jYtND ZbYy07AaD0 LTYwO Zd8MVStWYV xZCkg MTQwIDAgUi hfMjk 3MjlhYjgtO TdkOS 00NDRhLWIw NjQtN fk4OQS5WMJ yZTc1 KSAxNDEgMC BSKF8 xZGYxMzVmO S1lMT P5CZKmWqAu ODc5M Z63JoUnODX kNGZl XDhbCWV8Ue AwIFI oXzFkYmEzM TYzLW IyZWUtNGM1 Ny05Z rV2VXbaJpZ lNDAx ZiS7JRovTY QzIDA gLvfvLCW6R jRjNW GvWlJfOq94 Njg1L WEwMzktMWZ kNzY0 A7VvVlftZE AxNDQ aMLIYRX96E WRiND DtMV67GJS8 LTRlO WQtYjFkOC0 wM2My WNE5Eox1Aj UpIDE 0NSAwIFIoX zRjZj O0Uxz7AJTu NDMtN Bv8ZO88JhE 0LTZi Q5AxWtOqDD ZlNyk vVUF2NTGtY ihfYm D8DrWcCxKd NTMwN K25NqT2FZI iMWEt MpP8OKQrKx NkMTR iKSAxNDcgM CBSKF 8zCci2DcGc YS03N VL1PHT9GTM tODgx Fj52NdG5Hv AxOWU fLpNbWHO3Z CAwIF WiM3KnJwSf OWMzL TFiMTMtNDB hMi05 FYOnMWN5Pi RjMTB mZTFlMykgM TQ5ID KgFxdNJ66V LVBoe HRaY8dnzxQ Db25z nYa8WEPiTN AgMCB TQM44NSHxV ThhNS 9aGDG2QXP8 ZTgtY dU6IQ4uWGY hOWZm YTczODgpID E1MSA lYJDxW3TkQ TUyNT u6XDS3AMCc NDg0Y q34ZgB6MFB 5ODlk NTNkOTUyYS kgMTU yIDAgUihfZ TczYW CvY3VjBLIu Zi00M TOdVQu0Yjh tNzVm GEX9NXSeVl MyKSA xNTMgMCBSK F9jMD xjMKecRw62 Y2MwL JH9CYYgOuT 2Yi0y YzVmNWQzZj c1NzQ qCYY6GYGnJ FIoXz Y7FXEkEARf LTJmO NUbFLX5Dg4 4NTll LTQxMzZhOT AzNDd qTXhrFXE9F DAgUi hfMTNjOTZh ZjEtY SIiYp97VPG yLWI5 NjktNjlhYm NhZDY xYzhmKSAxN TYgMC SKRY77QMUt Zjk2M e3aLVuqPFI 4NTkt CCD9Sg3wEz hiODE eM0RhSpZcK DE1Ny AwIFIoXzI4 N2RjY yJjYMT7LHn tNGQx Bb2zXYJeZR kzMGN dQERoTJL3O SkgMT V5VQGmOuzw NjRlY 5K1DfAiAJs hYS00 YYg2UVYlXO EtOTM 6ZfM9E8JqS zkzKS AxNTkgMCBS KF9lM DFkNjkwMC0 3NmVh XUU4CXWdEU UwZC0 zNjJjYTUxM GI3MW RgFRR3PJBz IFIoX 6F4OpvfRQU 3LTcw JTrbLWJ9IF 1hOTc jAXGuKlR9I jMwYT gxMSkgMTYx IDAgU ihfNDkyZWF lMDYt A3KhAg38WR QwLWJ mYjUtZDkyN zYwMz VeYTC2RWZg NjIgM RORDF9YIKC xRjMz CR1mRqUFVT Q2ODQ rWuCJSL16J EEzMT uJTgZ1Q4Dd IDE2M yAwIFIoXzI 5M2Jj GIT7KZN4BQ AtNGY 8BU5wCCHzP WI5Y2 DtOzd7FXF2 ZCkgM WR2EFOrPxe fYmE3 UDD0CGZbYG ZkZC0 5THn8VPXoA zEtNT R8CjNgLLgs OTg3K SAxNjUgMCB SKF8w S4T8DCU3Bj 00ZGY 4GMU7SwawP GE2NC 9fFNP4UGK7 YTU3Z QMpMAA5JtN wIFIo I6SlGCwcEb k1LTF lZGItNDlmN y05Yz A9ACKbYeI1 NTcwN Qq2WvpoZRI 3IDAg UihfNjdlZW RlNzU dA9P5Jj69A zdhLW FjZGEtOWUx ZWY3O LW3GpG1EMU xNjgg IROPRN6hPN Q1NzI nZe4fAQY5P TRkYW BjBRTkQk4d MjUzN DUwNWQzMWM pIDE2 OSAwIFIoX2 EwZTc 4YmEwLThkM 2MtNG PsNV5zQnFp LWI0M jIyMjBkMjY xZikg MTcwIDAgUi hfN2F yNEN9FSpqJ WRjMS 21WfT3EEh5 NmYtY zN4TqF1YdV 0YjI2 KSAxNzEgMC BSKF8 lJrSuHiQ1G y04OG RlLTRhOGQt OTIwN g9yY5B2VOT 5M2Ew SMMfYJN2Zq AwIFI zA9GgSHWrN GQwLT FmNGEtNDYz Ni05O RQ6ZTPwZNo mNGQy JCC8PRzwDT czIDA gUihfNDljY TYyMD viRwDaFI03 NjQ5L Xe2PPPxDbG 1ZTI5 YzhlMDFhKS AxNzQ fWBLYPZ2sL TdjM2 VbVx2lZOw4 LTRjM 6PvSLthMM5 mYzNh NmZlYzlmNG QpIDE 3NSAwIFIoX 2YxYW IwZDYxLTk5 MDgtN ER2IM70UGB mLWIw WGF7NWN5RC E5Zik jHYg0OVHlC ihfYz rtNYG4Vhvf NDQ4Y p67L5XsLQu 4NTEt KEi1PwHkPR Y1NzB kKSAxNzcgM CBSKF 8zYTcwNWQy MC02Y jVmLTRmZDM tODIz Hn7qLGruHN ZiMzl iEbFiUEF8O CAwIF IoXzYxZWUx YjAwL Zu5TqQbKVo lNy1h LvU3RIM3Mt k0MGE hZWb6JOutR Tc5ID AgUihfMTg5 ZDY0N TctZGNiNi0 0ZTZj YFN1WHQtTE k1YzY 1YjFkZjIwK SAxOD UuGSXSVO60 OWMyM hueMD62KNo 3LTQ5 OTUtOTljYy 0zMGV gVSz2L8L2S jEpID C1JRDiITEl XzA1N lRxAvg7HJW 4NWIt DVEbDl57Oi ViLWM 2NzRjODNjM TYxYS kgMTgyIDAg Ul0+P gplbmRvYmo KMjIg MCBvYmoKPD wvRGV uzWuGW76KC VBoeX UiM9enhjXW b25zd Qm7BM7PWPE lbnQg MTggMCBSL1 RpdGx lPGZlZmYwM DUwMD G8MVMwSboq MDczM TZ1DVScEbO wMDY5 UJL3ERVzBa UwMDI zLYX5QqDiF mYwMD JqBIJ9PbOo NzUwM EUaLLL7MU4 +Pgpl bmRvYmoKMT gzIDA vm4ByHed5R 01vZE RhdGUoRDoy MDIwM DUxMzEyMzg 0MS0w NCcwMCcpL0 NyZWF 9tS4oYHW8K ShEOj IwMjAwNTEz MTIzO UGmKf44NeJ wJykv UHJvZHVjZX IoSWJ leCBQREYgQ 3JlYX VoycE3Qcfc MC4xN N81VXU4IGs KQVZB XVAvUjsgbW 9kaWZ pZWQgdXNpb mcgaV CfoFDdMr9t LjcgY nkgMVQzWFQ pPj4K AL6ng7OiMt hyZWY KMCAxODQKM DAwMD AwMDAwMCA2 NTUzN SBmIAowMDA wMDAw MXR0WQCmQH AwIG4 gCjAwMDAwM DAxMD MgMDAwMDAg biAKM DAwMDAwMDE 3OSAw MDAwMCBuIA owMDA vJKMlFxF2B DAwMD DoEP7iBbLt MDAwM DAzOTEgMDA wMDAg biAKMDAwMD AwMDU yNyAwMDAwM CBuIA owMDAwMDAw NjAzI DAwMDAwIG4 gCjAw KFKqIJE9Rk kgMDA wMDAgbiAKM DAwMD AwMDgxNSAw MDAwM CBuIAowMDA wMDAw OTUxIDAwMD AwIG4 gCjAwMDAwM DEwMj ggMDAwMDAg biAKM DAwMDAwMTE 2NCAw MDAwMCBuIA owMDA wMDAxMjQxI DAwMD XmIA4zVcIh MDAwM DEzNzggMDA wMDAg biAKMDAwMD AwMTQ 1NSAwMDAwM CBuIA owMDAwMDAx NTkyI DAwMDAwIG4 gCjAw MDAwNjMyNj cgMDA wMDAgbiAKM DAwMD NpCYy5PYKn MDAwM CBuIAowMDA wMDAx NzEwIDAwMD AwIG4 gCjAwMDAwN jMyND YgMDAwMDAg biAKM DAwMDAwOTM 3MyAw MDAwMCBuIA owMDA oTZt2ONY6S DAwMD DpIK7uGpMg MDAwM QS6UbedDVR wMDAg biAKMDAwMD AwMTg 2NCAwMDAwM CBuIA owMDAwMDA0 NTMzI DAwMDAwIG4 gCjAw SBXmEAY3TN YgMDA wMDAgbiAKM DAwMD AwOTAyNCAw MDAwM CBuIAowMDA wMDA5 GrI1ZPIiVU AwIG4 gCjAwMDAwM TIzNj EgMDAwMDAg biAKM DAwMDAxMjI 2MiAw MDAwMCBuIA owMDA dHZBzGJV4S DAwMD ZjKY4pUqPb MDAwM TIwNTQgMDA wMDAg biAKMDAwMD AwOTQ 4MiAwMDAwM CBuIA owMDAwMDE2 OTU2I DAwMDAwIG4 gCjAw GCYyTjA7Ua YgMDA wMDAgbiAKM DAwMD AzNDkzMCAw MDAwM CBuIAowMDA wMDQz NDIyIDAwMD AwIG4 gCjAwMDAwN TIzNz YgMDAwMDAg biAKM ECqZJL5AIv xMCAw MDAwMCBuIA owMDA vZSJlCNX7K DAwMD PjRZ1oFhRw MDAwM LU9BQuuYVX wMDAg biAKMDAwMD AxNzU 5MiAwMDAwM CBuIA owMDAwMDE3 MzA1I DAwMDAwIG4 gCjAw MDAwMjAyMz UgMDA wMDAgbiAKM DAwMD AyMDQxOCAw MDAwM CBuIAowMDA wMDI1 XwQ2OZFkLX AwIG4 gCjAwMDAwM jUwNj EgMDAwMDAg biAKM DAwMDAzMDQ zOSAw MDAwMCBuIA owMDA wMDMwNjIyI DAwMD EoGL5aFzTc MDAwM yX5QSFnEEF wMDAg biAKMDAwMD AzNTI 2NSAwMDAwM CBuIA owMDAwMDM4 OTMxI DAwMDAwIG4 gCjAw MDAwMzkxMT QgMDA wMDAgbiAKM DAwMD Y6XNC0AbId MDAwM CBuIAowMDA wMDQz QxB2MCXvNC AwIG4 gCjAwMDAwN Dc4OD UgMDAwMDAg biAKM YUrDAQ4AHU 2OCAw MDAwMCBuIA owMDA fOOCrDMo5X DAwMD HqAM9tVzAj MDAwN XR8YAZxHEA wMDAg biAKMDAwMD A1NjQ xOSAwMDAwM CBuIA owMDAwMDU2 NjAyI DAwMDAwIG4 gCjAw GZUtLoL8Hl IgMDA wMDAgbiAKM DAwMD Z5QAH4DSKl MDAwM CBuIAowMDA wMDY4 OTkyIDAwMD AwIG4 gCjAwMDAwN jMzMD EgMDAwMDAg biAKM XGcLFW8YsT 0OCAw MDAwMCBuIA owMDA jEMCiXtp9I DAwMD PhCL9zLhHu MDAwN nA2SEWqMCS wMDAg biAKMDAwMD A2MzQ 4OSAwMDAwM CBuIA owMDAwMDYz NTM3I DAwMDAwIG4 gCjAw NNZyIkE8IJ UgMDA wMDAgbiAKM DAwMD L1VmNcXvCd MDAwM CBuIAowMDA wMDYz NjgwIDAwMD AwIG4 gCjAwMDAwN jM3Mj ggMDAwMDAg biAKM UDwFJV5Amb 3NSAw MDAwMCBuIA owMDA wMDYzODIzI DAwMD PzZB1bCgLd MDAwN mL4JcBhRVZ wMDAg biAKMDAwMD A2Mzk xOCAwMDAwM CBuIA owMDAwMDYz OTY1I DAwMDAwIG4 gCjAw MDAwNjQwMT MgMDA wMDAgbiAKM DAwMD K2HDF8RZBx MDAwM CBuIAowMDA wMDY0 TKH0CNZnNJ AwIG4 gCjAwMDAwN jQxNT YgMDAwMDAg biAKM EKnFXK9YTC wNCAw MDAwMCBuIA owMDA iGZO7ExEqI DAwMD ErKW8mJqYz MDAwN jQyOTkgMDA wMDAg biAKMDAwMD A2NDM 0NiAwMDAwM CBuIA owMDAwMDY0 MzkzI DAwMDAwIG4 gCjAw IAFeXtP9TP AgMDA wMDAgbiAKM DAwMD Q5HOD9ETPj MDAwM CBuIAowMDA wMDY0 VGQ6TFSmTW AwIG4 gCjAwMDAwN jQ1OD QgMDAwMDAg biAKM NMsWZX1GMO zMSAw MDAwMCBuIA owMDA jFRX3Cmd7X DAwMD DcPN5zOwHc MDAwN pH9SlNuKGL wMDAg biAKMDAwMD A2NDc 3NCAwMDAwM CBuIA owMDAwMDY0 ODIyI DAwMDAwIG4 gCjAw COOhTzQ5Zb kgMDA wMDAgbiAKM DAwMD G0GCatUgId MDAwM CBuIAowMDA wMDY0 OTYzIDAwMD AwIG4 gCjAwMDAwN jUwMT EgMDAwMDAg biAKM GKsNEQ8HRH 2MCAw MDAwMCBuIA owMDA jBYS7GNB8Z DAwMD LpDO2lZhXp MDAwN jUxNTggMDA wMDAg biAKMDAwMD A2NTI wNyAwMDAwM CBuIA owMDAwMDY1 MjU2I DAwMDAwIG4 gCjAw MDAwNjUzMD QgMDA wMDAgbiAKM DAwMD U3POD4YcGj MDAwM CBuIAowMDA wMDY1 NDAxIDAwMD AwIG4 gCjAwMDAwN jU0NT AgMDAwMDAg biAKM IPnXZV6SYT 5OCAw MDAwMCBuIA owMDA gRAU4EBU6Q DAwMD VhXH3bFrIs MDAwN zB5YIRsJBL wMDAg biAKMDAwMD A2NTY 0NCAwMDAwM CBuIA owMDAwMDY1 NjkzI DAwMDAwIG4 gCjAw TDXdAdO7XD IgMDA wMDAgbiAKM DAwMD G9QIv2ZNRd MDAwM CBuIAowMDA wMDY1 LRW2JCDzCV AwIG4 gCjAwMDAwN jU4OD ggMDAwMDAg biAKM JIvMJQ8IOc zNiAw MDAwMCBuIA owMDA cBHM5GSy1E DAwMD SgPE7mZtJe MDAwN jYwMzMgMDA wMDAg biAKMDAwMD A2NjA 4MSAwMDAwM CBuIA owMDAwMDY2 MTMwI DAwMDAwIG4 gCjAw MDAwNjYxNz kgMDA wMDAgbiAKM DAwMD J7CcGfHoPt MDAwM CBuIAowMDA wMDY2 Cho8UEBsHS AwIG4 gCjAwMDAwN jYzMj QgMDAwMDAg biAKM ZEqDHY0UoN 3MiAw MDAwMCBuIA owMDA oXQJ8THHxJ DAwMD UoDT9cZgIl MDAwN qZ6OzbhAVD wMDAg biAKMDAwMD A2NjU xOCAwMDAwM CBuIA owMDAwMDY2 NTY2I DAwMDAwIG4 gCjAw HYAjIsQ6QC QgMDA wMDAgbiAKM DAwMD P3TmO4PkHk MDAwM CBuIAowMDA wMDY2 NzEwIDAwMD AwIG4 gCjAwMDAwN jY3NT kgMDAwMDAg biAKM NKyYGK4Nqg wNyAw MDAwMCBuIA owMDA rJXU5UFE8W DAwMD RnSI3bFiIp MDAwN eI7MBKvLCS wMDAg biAKMDAwMD A2Njk 1MiAwMDAwM CBuIA owMDAwMDY3 MDAxI DAwMDAwIG4 gCjAw MDAwNjcwNT AgMDA wMDAgbiAKM DAwMD P2AjV7YDLm MDAwM CBuIAowMDA wMDY3 NQD6BFWxSJ AwIG4 gCjAwMDAwN jcxOT cgMDAwMDAg biAKM XYxCXF5KgR 0NiAw MDAwMCBuIA owMDA hFNV2Mos9E DAwMD NbTR7gJfRk MDAwN jczNDQgMDA wMDAg biAKMDAwMD A2NzM 5MyAwMDAwM CBuIA owMDAwMDY3 NDQxI DAwMDAwIG4 gCjAw ZQMaDla1NT AgMDA wMDAgbiAKM DAwMD T3XaQyWHTc MDAwM CBuIAowMDA wMDY3 PNv4CEUrDD AwIG4 gCjAwMDAwN jc2Mz UgMDAwMDAg biAKM PJoFPR8ViG 4NCAw MDAwMCBuIA owMDA pVFD4RrPgC DAwMD GaPJ9oVkLu MDAwN sl9XAJiXOO wMDAg biAKMDAwMD A2Nzg yOSAwMDAwM CBuIA owMDAwMDY3 ODc4I DAwMDAwIG4 gCjAw SDMtQrh2Al YgMDA wMDAgbiAKM DAwMD F0Osm6VAYq MDAwM CBuIAowMDA wMDY4 MDIyIDAwMD AwIG4 gCjAwMDAwN jgwNz AgMDAwMDAg biAKM XRkPJM6PNX xOSAw MDAwMCBuIA owMDA gKRN4CPJ8W DAwMD XhOM4pHySk MDAwN jgyMTYgMDA wMDAg biAKMDAwMD A2ODI 2NSAwMDAwM CBuIA owMDAwMDY4 MzE0I DAwMDAwIG4 gCjAw MDAwNjgzNj IgMDA wMDAgbiAKM DAwMD G2CGXsBSBg MDAwM CBuIAowMDA wMDY4 ZLK8FRIqRG AwIG4 gCjAwMDAwN jg1MD YgMDAwMDAg biAKM KQdZIS0HOO 1NCAw MDAwMCBuIA owMDA nXCY6GdShG DAwMD DoPP5yAxHv MDAwN nc5DQJdCYS wMDAg biAKMDAwMD A2ODc wMCAwMDAwM CBuIA owMDAwMDY4 NzQ5I DAwMDAwIG4 gCjAw DTHfFun1JD ggMDA wMDAgbiAKM DAwMD Q4KLs6DeGi MDAwM CBuIAowMDA wMDY4 CBa4KXVtOJ AwIG4 gCjAwMDAwN jg5ND MgMDAwMDAg biAKM NKkFPR2FTV 2MSAw MDAwMCBuIA p0cmF euJHxKdz4Q 0luZm 8gMTgzIDAg Ui9JR CXeKAL9MWd 0YWQx AVF5TqO1YQ QxZWV yQ4KlXYHwM DE3Zm U6Yyh9WWG7 NGY2M cL6J5RfLLR 1YjNm Pmh8GLOsVX RiMGU 7QW5aB2Bsv 3QgMT MkRKBPR2Ga emUgM Mn3Wd2Jw1U hcnR4 czMkHrg0AU QyCiU hPO0TEn== ID Date Data Source [id number] 02/15/2020 07:22:00 AM EDT [facility] Name Value Range Interpretation Description Data Sup porting Code Source(s) Document(s ) UA Color Yellow NO [facility] UA Appear Clear NO [facility] UA pH 5.0-8.0 NO [facility] UA Spec Grav 1.010 1.005-1.030 NO [facility] UA Glucose Negative NO [facility] UA Ketones Negative AB [facility] UA Urobilinogen 0.2-1.0 NO [facility] UA Bili Negative NO [facility] UA Blood Negative NO [facility] UA Protein Negative NO [facility] UA Nitrite Negative NO [facility] [facility] UA Leuk Est Negative NO [facility] ID Date Data Source [id number] 02/15/2020 05:29:00 AM EDT [facility] Name Value Range Interpretation Description Data Sup porting Code Source(s) Document(s ) pH Judson 7.31 7.31-7.41 [facility] pCO2 Judson 30 mmHg 38-42 [facility] pO2 Judson 72 mmHg 40-100 [facility] HCO3 Judson 15.1 20.0-26.0 LO [facility] mmol/L [facility] BE(B) Judson -9.8 -2.0-2.0 LO [facility] mmol/L [facility] CO2 Totl Judson 16 22-26 [facility] sO2m Judson 97 % vol 40-70 [facility] Restaurant Line Server [facility] Name: [facility] VERIFIED by Discern Expert. Draw Date: [facility] VERIFIED by Discern Expert. Draw Time: [facility] VERIFIED by Discern Expert. Analyzed Date [facility] VERIFIED by Discern Expert. Analyzed Time [facility] VERIFIED by Discern Expert. ID Date Data Source [id number] 02/15/2020 05:04:00 AM EDT [facility] Name Value Range Interpretation Code Description Data Mariana rce(s) Supporting Document(s ) Rapid Negative [facility] COVID-19 [facility] ID NOW COVID-19 assay performed on the [employer] CRE ID NOW Instrument is a rapid molecular in vitro diagnostic test utilizing an is othermal nucleic acid amplification technology intended for the qualitative detection of nucleic acid from the SARS-CoV-2 viral RNA. CD:[id number] [facility] CD:[id number] [facility] GLB_RAPID_COV_SOURCE ID Date Data Source [id number] 02/15/2020 04:39:00 AM EDT [facility] Patient Name: JHONATAN OROZCO ANEMRN: [id number] General DiagnosticACCESSION EXAM DATE/TIME PROCEDURE ORDERING PROVIDER [id number] 02/15/2020 04:33 EDT XR Chest Portable Jaciel LAFLEUR, Jamaal Sampson (Ve rified)Reason For Exam(XR Chest Portable) Chest [...] Dictated: Inna LAFLEUR, Gonzales Garrett 02/15/20 04:38Signed: Gonzales Torres MD 02/15/20 04:39Transcribed by: [facility] Name Value Range Interpretation Code Description Data Mariana rce(s) Supporting Document(s ) ID Date Data Source [id number] 02/15/2020 04:38:00 AM EDT [facility] Name Value Range Interpretation Code Description Data Supporting Source(s) Document(s ) Troponin- <0.03 <=0.05 NO Luke I ng/mL [facility] ID Date Data Source [id number] 02/15/2020 04:37:00 AM EDT [facility] Name Value Range Interpretation Description Data Sup porting Code Source(s) Document(s ) Magnesium 1.9 mg/dL 1.6-2.6 NO [facility] ID Date Data Source [id number] 02/15/2020 04:37:00 AM EDT [facility] Name Value Range Interpretation Code Description Data Mariana rce(s) Supporting Document(s ) Lipase Lvl 31 IU/L 22-51 NO [facility] ID Date Data Source [id number] 02/15/2020 04:37:00 AM EDT [facility] Name Value Range Interpretation Description Data Sup porting Code Source(s) Document(s ) Glucose Lvl 97 mg/dL 65-99 NO [facility] BUN 3.5 6.0-20.0 LO [facility] mg/dL [facility] Creatinine 0.74 0.40-1.0 NO [facility] mg/dL 0 [facility] BUN/Creat 4.7 7.0-29.0 LO [facility] Ratio ratio [facility] Sodium Lvl 137 136-145 NO [facility] mmol/L [facility] Potassium Lvl 3.7 3.5-5.1 NO [facility] mmol/L [facility] Chloride 104 98-107 NO [facility] mmol/L [facility] CO2 17 23-29 LO [facility] mmol/L [facility] AGAP 16 5-15 HI [facility] Calcium Lvl 9.3 8.6-10.0 NO [facility] mg/dL [facility] Total Protein 7.7 6.0-8.3 NO [facility] gm/dL [facility] Albumin Lvl 4.0 3.5-5.0 NO [facility] gm/dL [facility] Glob 3.7 2.0-4.5 NO [facility] gm/dL [facility] A/G Ratio 1.1 1.0-2.2 NO [facility] ratio [facility] Bili Total 1.5 0.3-1.2 HI [facility] mg/dL [facility] Alk Phos 140 IU/L 38-126 HI [facility] AST 30 IU/L 15-41 NO [facility] ALT 16 IU/L 7-40 NO [facility] ID Date Data Source [id number] 02/15/2020 04:36:00 AM EDT [facility] Name Value Range Interpretation Description Data Sup porting Code Source(s) Document(s ) Lactic Acid 1.8 mmol/L <=2.0 NO [facility] ID Date Data Source [id number] 02/15/2020 04:29:00 AM EDT [facility] Added by Discern Rule GLB_ADD_GFR_CMP Name Value Range Interpretation Code Description Data Mariana rce(s) Supporting Document(s ) eGFR-AA >90 >=60 NO [facility] mL/min/[address] The MDRD 4-Variable IDMS traceable Equat [...] 60-89 Mild decrease*G3a 45-59 Mild to moderate kjsnjwgqH1g 30-44 Moderate to severe decreaseG4 15-29 Severe decreaseG5 14 or less Kidney failure eGFR-SUDHIR 78 mL/min/1.73m2 >=60 NO [facility] The MDRD 4-Variable IDMS traceable Equat [...] 60-89 Mild decrease*G3a 45-59 Mild to moderate szimquwkA8g 30-44 Moderate to severe decreaseG4 15-29 Severe decreaseG5 14 or less Kidney failure ID Date Data Source [id number] 02/15/2020 04:29:00 AM EDT [facility] Name Value Range Interpretation Description Data Sup porting Code Source(s) Document(s ) Phosphorus 2.8 mg/dL 2.5-5.0 NO [facility] ID Date Data Source [id number] 02/15/2020 04:25:00 AM EDT [facility] Name Value Range Interpretation Code Description Data Mariana rce(s) Supporting Document(s ) INR 1.2 ratio 0.9-1.2 NO [facility] Indications INRProphylaxis of venous thromo-embolism: Non-hip surgery..... ..........................1.5 - 2.5 Hip surgery................................. ..2.0 - 3.0Deep Vein Thrombosis or Pulmonary Embolism........2.0 - 3.0Prevention of s ystemic embolism in valvular heart disease, tissue prosthetic heart valvesor acute [place].......................................2.0 - 3.5Prevention of embolism in mechanical heartvalves or recurrent systemic embolism.............3.0 - 4.5 PT 14.5 second(s) 10.2-12.9 [facility] ID Date Data Source [id number] 02/15/2020 04:14:00 AM EDT [facility] Name Value Range Interpretation Description Data Sup porting Code Source(s) Document(s ) Neut Auto 70.8 % 50.0-80.0 NO [facility] Lymph Auto 18.7 % 14.0-44.0 NO [facility] Preble Auto 8.5 % 0.0-12.0 NO [facility] Eos Auto 0.5 % 0.0-7.0 NO [facility] Baso Auto 1.5 % 0.0-3.0 NO [facility] Neut 6.8 2.0-8.4 NO [facility] Absolute x10(3)/[facility] Lymph 1.8 0.6-4.8 NO [facility] Absolute x10(3)/[facility] Preble 0.8 0.0-1.1 NO [facility] Absolute x10(3)/[facility] Eos Absolute 0.0 0.0-0.5 NO [facility] x10(3)/[facility] Baso 0.1 0.0-0.3 NO [facility] Absolute x10(3)/[facility] ID Date Data Source [id number] 02/15/2020 04:14:00 AM EDT [facility] Name Value Range Interpretation Description Data Sup porting Code Source(s) Document(s ) WBC 9.6 4.0-10.5 NO [facility] x10(3)/[facility] RBC 5.13 3.80-5.20 NO [facility] x10(6)/[facility] Hgb 12.2 11.4-15.1 NO [facility] gm/dL [facility] Hct 38.8 % 36.0-46.0 NO [facility] MCV 76 fL 80-98 [facility] MCH 23.8 pg 26.0-34.0 [facility] MCHC 31.5 32.0-36.0 LO [facility] gm/dL [facility] RDW 18.9 % 11.0-15.0 [facility] Platelet 362 150-400 NO [facility] x10(3)/mc [facility] MPV 7.4 fL 8.5-13.0 [facility] ID Date Data Source {[id number] 02/16/2020 12:37:00 AM EDT [facility] [id number]} [facility] Patient: MARIELA ROME Age: 69 years Sex: Female : 1950 Associated Diagnoses: Dysphagia Author : Jamaal Grissom MD Basic Information Time seen: Date and time 02/15/2020 03:18 :00, 02/15/2020, 3:18. History source: Patient. Arrival mode: Private vehicle. History limitation: None. Additional information: Chief Complaint from Patricia hooker Triage Note : Chief Complaint 02/15/2020 3:15 [...] pradip or surgical history presents to the [facility] emergency department for evaluation of throat [...] pradip or surgical history presents to the [facility] emergency department for evaluation of throat [...] rhythm, No ST-T changes, no ectopy, normal AK and QRS intervals. Results review: Lab results : Lab [facility] 02/15/2020 4:05 EDT WBC 9.6 x10(3)/mcL RBC 5.13 x10(6)/mcL Hgb 12.2 gm/dL Hct 38.8 % MCV 76 fL LOW MCH 23.8 pg LOW MCHC 31.5 gm/dL LOW RDW 18.9 % HI Platelet 362 x10(3)/mcL MPV 7.4 fL LOW Neut Auto 70.8 % Lymph Auto 1 8.7 % Preble Auto 8.5 % Eos Auto 0.5 % Baso Auto 1.5 % Neut Absolute 6.8 x10(3)/mc L Lymph Absolute 1.8 x10(3)/mcL Preble Absolute 0.8 x10(3)/mcL Eos Absolute 0. 0 [...] on February 15, 2020 4:39 EDTEncounter info: [id number], [facility], Emergency Room, 02/15/2020 - . Ree xamination/ Reevaluation Time: 02/15/2020 04:43:00 . Notes: Patient in bed. Explai ching in lay terms ED diagnosis, and available results, and informed them of ED plan fo r patient to remain in the hospital for further treatment. Patient understands a nd agrees with plan of care. All questions answered. Impression and Plan Diagnosis Dysphagia - [id number] R13.10, Admitting Calls-Consults - 02/15/2020 04:43:00 , Uday fernandez MD, Mariela Lopez, consult, Discussed patient and patient's condition. Agrees with ED treatment and plan for patient to remain in the hospital under their care. Plan Con dition: Stable. Disposition: Admit time 02/15/2020 04:44:00, Dc LAFLEUR, Mariela Lopez. Denisha ounseled: Patient, Regarding diagnosis, Regarding diagnostic results, Regarding treatment plan, Patient indicated understanding of instructions. Addendu m Attestation: Scribe Attestation: Jacob Lyon, 02/15/2020 03:18:00, Scribing for and in the presence of,, Jaciel LAFLEUR, Jamaal Cavanaugh, Provider Attestation: Hawk martell performed the services described in the documentation, reviewed and edited the d ocumentation which was dictated to the scribe in my presence and it accurately records my words and actions., Jamaal Grissom MD.02/15/2020 04:10:27 Comment by: Michelle Albrecht all info up to date, insurance active, ok to tx and bill insu ruby Michelle Mendes [id number] [id number] [place] BUR[place] [id number], unspecified0.000.00E lectronically signed by Jamaal Grissom MD 02/16/2020 00:37 EDTElectronically signed by Jacob Lyon 02/15/2020 04:54 EDT Jacob Lyon Name Value Range Interpretation Code Description Data Mariana rce(s) Supporting Document(s ) ID Date Data Source {[id number] 02/14/2020 05:03:00 PM EDT [facility] Arturo Vazquez [id number]} [facility] Patient: MARIELA ROME Age: 69 years Sex: Female : 1950 Associated Diagnoses: Globus pharyngeu s; Anxiety Author: Brie Coffey MD Basic Information Addendum: Trina wren of addendum:: [...] and Plan Diagnosis Gl obus pharyngeus - [id number]-[id number] R09.89, Discharge Anxiety - [id number]-RS F41.9, Discharge Atte station Scribe Attestation: Kaila Morel, 02/13/2020 07:11:00, Scribing fo r and in the presence of,, Brie Coffey MD. Provider Attestation: I pe rsonally performed the services described in the documentation, reviewed and edited t he documentation which was dictated to the scribe in my presence and it accurately records my words and actions., Brie Coffey MD. Plan Condi tion: Improved, Stable. Disposition: Discharged: Time 02/13/2020 08:33:00, to home. Patient was given the following educational materials: Understanding Anx iety Disorders. Follow up with: Clary Morejon Within 3 to 5 days Call for [facility] appointment. Counseled: Patient, Regarding diagnosis, Regarding diagnosti c results, Regarding treatment plan, Patient understood.02/13/2020 05:05:41 Comment b y: Kevin David PT CONFIRMED PCP, PT NOT INTERESTED IN PORTAL Kevin David[address] [id number] edicaid [facility] JAVED [id number] sign ed by Brie Coffey MD 02/14/2020 17:03 EDTElectronically signed by Kaila Morel 02/13/2020 08:36 EDT Name Value Range Interpretation Code Description Data Mariana rce(s) Supporting Document(s ) ID Date Data Source {[id number] 02/20/2020 05:49:00 AM EDT [facility] [id number]} [facility] Patient: MARIELA ROME Age: 69 years [...] one) on 12/02/2018 at 68 Years.Comments:12/02/2018 18:54 EST - Hedy romero RN, Kiersten Walter-karl from documented surgical casethyroid nodule r emoved.. [...] using an electronic medical record system with [employer] computerized dictation system. A lthough this document [...] PT NOT INTERESTED IN PORTAL ----Kevin David[address] [place] [address] [id number] d AJIT BURT [id number] sign ed by Joe Mera DO 02/20/2020 05:49 EDTElectronically signed by Kojo Briones 02/13/2020 06:54 EDT Name Value Range Interpretation Code Description Data Mariana rce(s) Supporting Document(s ) ID Date Data Source {[id number] 02/23/2020 02:09:00 PM EDT [id number] Patient: MARIELA ROME Age: 69 years Sex: Female : 1950 Associated Diagnoses: None Author: Tremaine fay MD, Gabriela Krishnamurthy Basic Information Time seen: 02/11/2020 . History source: [facility]. Arrival mode: Walking. History limitation: None. History [...] breath. Physical examination unremarkable. History significant for [facility] ER visits for similar complaints recently. Likely [...] and medicare appeal form --Joey Rubio M[address] [id number] [facility] NAJMA DIANE [id number] signed by Gabriela Worthy MD 02/23/2020 14:09 EDTElectronically nash d by Quinten Valencia 02/11/2020 09:30 EDT Name Value Range Interpretation Code Description Data Mariana rce(s) Supporting Document(s ) ID Date Data Source {[id number] 02/07/2020 11:34:00 AM EDT [facility] [id number]} [facility] Patient: MARIELA ROME Age: 69 years [...] The patient applied her Nitro-Derm patch this joelle hooker. Review of Systems Constitutional symptoms: No fever, [...] t 68 Years.Comments:12/02/2018 18:54 ELIESER - Ferny ROMERO, Kiersten Walter-populated from d ocumented surgical casethyroid nodule removed.. [...] 108 bpm HI Respiratory Rate 24 br/min HI 02/06/2020 19:05 EDT Temperature Oral 98.1 DegF Systolic Blood Pressure 111 mmHg Diasto lic Blood Pressure 73 mmHg Heart Rate Monitored 94 bpm Respiratory Rate 18 br /min 02/06/2020 15:30 EDT Systolic Blood Pressure 131 mmHg HI Diastolic Blood P ressure 86 mmHg Mean Arterial Pressure, Cuff 101 mmHg Heart Rate Monitored 88 bpm R espiratory Rate 29 br/min HI 02/06/2020 14:24 EDT Temperature Oral 98.2 DegF [...] Impression and Plan Diagnosis Dys phasia - [id number]-BN R47.02, Discharge Hypertension - ZSC76-ZZ I10, Discharge A nxiety - TKO96-MW F41.9, Discharge Plan Condition: Stable. Disposition: Dischar ged: Time 02/07/2020 11:34:00, to home.02/07/2020 11:32:49 Comment by: Laurence Soto pt gave consent/ verified info --Eduar Ncabzvis[address] [place] [id number] AJIT CONTRERAS [id number] signed by Amanuel uY PA-C 02/07/2020 11:34 EDT Name Value Range Interpretation Code Description Data Mariana rce(s) Supporting Document(s ) ID Date Data Source {[id number] 02/06/2020 06:57:[address] [facility] [employer] [facility] [id number]} [facility] Patient: MARIELA ROME Age: 69 years [...] Auto 68.6 % Lymph Auto 20.8 % Preble Auto 8.9 % E os Auto 0.9 % Baso Auto 0.8 % Neut Absolute 6.3 x10(3)/mcL Lymph Absolute 1.9 x10(3)/mcL Preble Absolute 0.8 x10(3)/mcL Eos Absolute 0.1 x10(3)/mcL [...] 65.5 % Lymph Au to 22.5 % Preble Auto 10.3 % Eos Auto 0.9 % Baso Auto 0.8 % Neut Absolute 4.7 x10 (3)/mcL Lymph Absolute 1.6 x10(3)/mcL Preble Absolute 0.7 x10(3)/mcL Eos Absolute 0. 1 [...] LOW Troponin-I <0.03 ng/mL . Physical [facility] General: Alert, no acute distress, Speaking in [...] informed of JOYCE from Dr. Jose Miguel vigil. Asked patient of the history of their current illness and did a physical exam. Plan is to further evaluate patient and make decisions based on further findings. Pat josefina understands and agrees with plan of care. [...] t he consult which was held with nursing agency manager Dr. Jesse Muñoz, who has suggested that the patient can be seen by Dr. Epperson as an outpatientso that upper endoscopy can be performed. Also discussed with pt. strict return and car e precautions which have been listed below. Pt has also been provided contact inform ation for the [facility] help line in order to set up a mental health appointm ent. . Pt understands the importance of creating said follow up appointments and agrees to plan of care provided today. All questions have been answered at this trina e. Because of the patient's dysphasia, will provide oral disintegrating tablets for ondansetron and Lansoprazole.. Impression and Plan Diagnosis Dysphagia - [id number]-[id number] R13.10, Discharge Attestation Scribe Attestation: Florence Mccurdy, [...] Toni LAFLEUR, Jesse Mann, Gaastroenterology, phone call, denisha mullen, Discussed pt. case and current presentation as well as pt. results. Lema s agreed that there is no immediate/ significant health risk for the pt. at t his time. Cloth Reeler feels comfortable enough to follow up with the pt. as an outpatient in order to develop an additional plan of care within the next 48 hours.. Plan Condition: Improved, Stable. Disposition: Discharged: Time 02/06/2020 18:15:00, to home. Patient was given the following educational materials: Full Li quid Diet, Clear Liquid Diet, Dysphagia (Adult). Follow up with: For mental hea lt appointment, please contact [facility] Help Line : [phone]. Within 3 to 5 days; Drarel Zuniga Within 3 to 5 days Please call for follow up appointme nt; Clary Morejon Within 3 to 5 days, [place] Epperson Within 1 to 2 days [facility]; For mental health appointment, please contact [facility] Help Line : [phone]. Within 3 to 5 days; Clary Morejon Within 3 to 5 days. Counseled: Patient, Regarding diagnosis, Regarding diagnostic results, Regarding treatment plan, Pt understood.Madeline Edmonds [address] [id number] al PAMARIELA [facility] [id number] sign ed by Eduar LAFLEURNealKeaton 02/06/2020 18:57 EDTElectronically signed by Kaz Florence 02/06/2020 18:27 EDT Name Value Range Interpretation Code Description Data Mariana rce(s) Supporting Document(s ) ID Date Data Source {[id number] 02/07/2020 09:26:00 AM EDT [facility] [id number]} [facility] Patient: MARIELA ROME Age: 69 years [...] sympt oms and has presented to the [facility] ED several times for symptom evaluation. The [...] history: not pertinent. Family history: not perti nent. Social history: nonsmoker. Problem list: Active Problems [...] Auto 68.6 % Lymph Auto 20.8 % Preble Auto 8.9 % Eos Auto 0.9 % Baso Auto 0.8 % Neut Absolute 6.3 x10(3)/mc L Lymph Absolute 1.9 x10(3)/mcL Preble Absolute 0.8 x10(3)/mcL Eos Absolute 0. 1 [...] POS 02/06/2020 8:55 EDT UA Color Dk [place] ow UA Appear Cloudy UA pH 7.0 [...] Auto 65.5 % Lymph Auto 22.5 % Preble Auto 10.3 % Eos Auto 0.9 % Baso Auto 0.8 % Neut Absolute 4.7 x10(3)/mc L Lymph Absolute 1.6 x10(3)/mcL Preble Absolute 0.7 x10(3)/mcL Eos Absolute 0. 1 [...] both correctly = 0. 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 [...] Attestation: Scribe Attestation: Jacob Lyon, 02/06/2020 14:32:00, Sc ribing for and in the presence of,, Alexx LAFLEUR, Brie Martínez, Provider A ttestation: I personally performed the services described in the documentation, reviewed and edited the documentation which was dictated to the scribe in my presenc e and it accurately records my words and actions., Brie Coffey MD.[facility] CenterPmiizqax3605 [address] [id number] NYDIANE LEADBETTER [id number] signed by Brie Coffey MD 02/07/2020 09:26 EDTElectronically nash d by Jacob Lyon 02/06/2020 16:08 EDT Jacob Lyon Name Value Range Interpretation Code Description Data Mariana rce(s) Supporting Document(s ) ID Date Data Source [id number] 02/06/2020 04:02:00 PM EDT Luke Escal[facility] Name Value Range Interpretation Code Description Data Mariana rce(s) Supporting Document(s ) ABSC Gel NO [facility] ID Date Data Source [id number] 02/06/2020 03:28:00 PM EDT [facility] Name Value Range Interpretation Code Description Data Mariana rce(s) Supporting Document(s ) ABO/Rh UN [facility] ID Date Data Source [id number] 02/06/2020 03:21:00 PM EDT [facility] Name Value Range Interpretation Code Description Data Supporting Source(s) Document(s ) Troponin- <0.03 <=0.05 [facility] I ng/mL [facility] ID Date Data Source [id number] 02/06/2020 03:20:00 PM EDT [facility] Name Value Range Interpretation Code Description Data Mariana rce(s) Supporting Document(s ) INR 1.2 ratio 0.9-1.2 [facility] Indications INRProphylaxis of venous thromo-embolism: Non-hip surgery..... ..........................1.5 - 2.5 Hip surgery................................. ..2.0 - 3.0Deep Vein Thrombosis or Pulmonary Embolism........2.0 - 3.0Prevention of s ystemic embolism in valvular heart disease, tissue prosthetic heart valvesor acute [place].......................................2.0 - 3.5Prevention of embolism in mechanical heartvalves or recurrent systemic embolism.............3.0 - 4.5 PT 14.2 second(s) 10.2-12.9 [facility] ID Date Data Source [id number] 02/06/2020 03:19:00 PM EDT [facility] Added by Discern Rule GLB_ADD_GFR_CMP Name Value Range Interpretation Code Description Data Mariana rce(s) Supporting Document(s ) eGFR-AA >90 >=60 NO [facility] mL/min/1.7 [facility] 3m2 [facility] The CKD-EPI equation for non- Ruth Ann [...] Mild decrease* G3a 45-59 Mild to moderate gefzospqO6q 30-44 Moderate to s evere decreaseG4 15-29 Severe decreaseG5 14 or less Kidney fa ilure eGFR-SUDHIR 88 mL/min/1.73m2 >=60 NO [facility] The CKD-EPI equation for non- Ruth [...] Mild decrease* G3a 45-59 Mild to moderate vacomhbwQ6g 30-44 Moderate to s evere decreaseG4 15-29 Severe decreaseG5 14 or less Kidney fa ilure ID Date Data Source [id number] 02/06/2020 03:19:00 PM EDT [facility] Name Value Range Interpretation Description Data Sup porting Code Source(s) Document(s ) Glucose Lvl 118 65-99 [place] [facility] mg/dL [facility] BUN 6.1 6.0-20.0 NO [facility] mg/dL [facility] Creatinine 0.67 0.40-1.0 NO [facility] mg/dL 0 [facility] BUN/Creat 9.1 7.0-29.0 NO [facility] Ratio ratio [facility] Sodium Lvl 139 136-145 NO [facility] mmol/L [facility] Potassium Lvl 4.2 3.5-5.1 NO [facility] mmol/L [facility] Chloride 109 98-107 [place] [facility] mmol/L [facility] CO2 22 23-29 LO [facility] mmol/L [facility] AGAP 8 5-15 NO [facility] Calcium Lvl 9.5 8.6-10.0 NO [place] mg/dL [facility] Total Protein 7.6 6.0-8.3 NO [place] gm/dL [facility] Albumin Lvl 4.0 3.5-5.0 NO [place] gm/dL [facility] Glob 3.6 2.0-4.5 NO [place] gm/dL [facility] A/G Ratio 1.1 1.0-2.2 NO [place] ratio [facility] Bili Total 0.6 0.3-1.2 NO [place] mg/dL [facility] Alk Phos 129 IU/L 38-126 HI [facility] AST 17 IU/L 15-41 NO [facility] ALT 12 IU/L 7-40 NO [facility] ID Date Data Source [id number] 02/06/2020 03:03:00 PM EDT [facility] Name Value Range Interpretation Description Data Sup porting Code Source(s) Document(s ) Neut Auto 68.6 % 50.0-80.0 NO [facility] Lymph Auto 20.8 % 14.0-44.0 NO [facility] Preble Auto 8.9 % 0.0-12.0 NO [facility] Eos Auto 0.9 % 0.0-7.0 NO [facility] Baso Auto 0.8 % 0.0-3.0 NO [facility] Neut 6.3 2.0-8.4 NO [place] Absolute x10(3)/[facility] Lymph 1.9 0.6-4.8 NO [place] Absolute x10(3)/[facility] Preble 0.8 0.0-1.1 NO [place] Absolute x10(3)/[facility] Eos Absolute 0.1 0.0-0.5 NO [place] x10(3)/[facility] Baso 0.1 0.0-0.3 NO [place] Absolute x10(3)/[facility] ID Date Data Source [id number] 02/06/2020 03:03:00 PM EDT [facility] Name Value Range Interpretation Description Data Sup porting Code Source(s) Document(s ) WBC 9.1 4.0-10.5 NO [place] x10(3)/[facility] RBC 5.15 3.80-5.20 NO [place] x10(6)/[facility] Hgb 12.1 11.4-15.1 NO [place] gm/dL [facility] Hct 38.3 % 36.0-46.0 NO [facility] MCV 74 fL 80-98 LO [facility] MCH 23.6 pg 26.0-34.0 [facility] MCHC 31.7 32.0-36.0 [facility] gm/dL [facility] RDW 18.3 % 11.0-15.0 [facility] Platelet 387 150-400 NO Ciarasylvesterafia x10(3)/mc [facility] MPV 7.1 fL 8.5-13.0 [facility] ID Date Data Source [id number] 02/06/2020 10:20:00 AM EDT [facility] Patient Name: JHONATAN OROZCO ANEMRN: [id number] Computed TomographyACCESSIO N EXAM DATE/TIME PROCEDURE ORDERING PROVIDER [facility]-20- [id number] 02/06/2020 10:[address] Abdomen Pelvis Damir Elsy BREWSTER (Veri fied) Oral and IVReason For Exam(CT [...] Supporting Document(s ) ID Date Data Source [id number] 02/06/2020 09:16:00 AM EDT [facility] Name Value Range Interpretation Description Data Sup porting Code Source(s) Document(s ) UA Color Yellow NO [facility] UA Appear Clear AB [facility] UA pH 5.0-8.0 NO [facility] UA Spec Grav 1.026 1.005-1.030 NO [facility] UA Glucose Negative NO [facility] UA [facility]ones [facility] Urob[facility]ogen 0.2-1.0 NO [facility] UA Bili Negative AB [facility] UA Blood Negative NO [facility] UA Protein Negative NO [facility] UA Nitrite Negative NO [facility] UA Leuk Est Negative NO [facility] ID Date Data Source [id number] 02/06/2020 09:29:00 AM EDT [facility] UA Microscopic added by nicky Kate to an Abnormal Macroscopic Result. Name Value Range Interpretation Description Data Sup porting Code Source(s) Document(s ) UA WBC 0-5 NO [facility] UA RBC 0-2 AB [facility] UA Bacteria None Seen NO [facility] UA Epithelial Rare NO [facility] UA Mucous None Seen NO [facility] ID Date Data Source [id number] 02/06/2020 09:15:00 AM EDT [facility] Patient Name: JHONATAN OROZCO ANEMRN: [id number] General DiagnosticACCESSION EXAM DATE/TIME PROCEDURE ORDERING PROVIDER [id number] 02/06/2020 09:13 EDT XR Chest Portable Elsy [...] this patient. Final Dictated: Ky Foreman DO S. 0 02/06/20 09:13Signed: Ahsan BREWSTER Ky S. 02/06/20 09:15Transcribed by: ESK Name Value Range Interpretation Code Description Data Mariana rce(s) Supporting Document(s ) ID Date Data Source [id number] 02/06/2020 08:23:00 AM EDT [facility] Name Value Range Interpretation Code Description Data Supporting Source(s) Document(s ) Troponin- <0.03 <=0.05 NO [place] I ng/mL [facility] ID Date Data Source [id number] 02/06/2020 08:21:00 AM EDT [facility] Name Value Range Interpretation Code Description Data Mariana rce(s) Supporting Document(s ) Lipase Lvl 21 IU/L 22-51 [facility] ID Date Data Source [id number] 02/06/2020 08:21:00 AM EDT [facility] Name Value Range Interpretation Description Data Sup porting Code Source(s) Document(s ) Glucose Lvl 123 65-99 HI [place] mg/dL [facility] BUN 7.9 6.0-20.0 NO [place] mg/dL [facility] Creatinine 0.73 0.40-1.0 NO [place] mg/dL 0 [facility] BUN/Creat 10.9 7.0-29.0 NO [place] Ratio ratio [facility] Sodium Lvl 137 136-145 NO [place] mmol/L [facility] Potassium Lvl 3.1 3.5-5.1 LO [place] mmol/L [facility] Chloride 104 98-107 NO [place] mmol/L [facility] CO2 21 23-29 LO [place] mmol/L [facility] AGAP 12 5-15 NO [facility] [facility] Calcium Lvl 9.4 8.6-10.0 NO [place] mg/dL [facility] Total Protein 7.6 6.0-8.3 NO [place] gm/dL [facility] Albumin Lvl 3.9 3.5-5.0 NO [place] gm/dL [facility] Glob 3.7 2.0-4.5 NO [place] gm/dL [facility] A/G Ratio 1.1 1.0-2.2 NO [place] ratio [facility] Bili Total 0.7 0.3-1.2 NO [place] mg/dL [facility] Alk Phos 111 IU/L 38-126 NO [facility] AST 17 IU/L 15-41 NO [facility] ALT 13 IU/L 7-40 NO [facility] ID Date Data Source [id number] 02/06/2020 08:17:00 AM EDT [facility] Name Value Range Interpretation Code Description Data Mariana rce(s) Supporting Document(s ) INR 1.3 ratio 0.9-1.2 [facility] Indications INRProphylaxis of venous thromo-embolism: Non-hip surgery..... ..........................1.5 - 2.5 Hip surgery................................. ..2.0 - 3.0Deep Vein Thrombosis or Pulmonary Embolism........2.0 - 3.0Prevention of s ystemic embolism in valvular heart disease, tissue prosthetic heart valvesor acute [place].......................................2.0 - 3.5Prevention of embolism in mechanical heartvalves or recurrent systemic embolism.............3.0 - 4.5 PT 14.6 second(s) 10.2-12.9 [facility] ID Date Data Source [id number] 02/06/2020 08:13:00 AM EDT [facility] Added by Discern Rule GLB_ADD_GFR_CMP Name Value Range Interpretation Code Description Data Mariana rce(s) Supporting Document(s ) eGFR-AA >90 >=60 [facility] mL/min/1.[address] [place] [address] The CKD-EPI equation for non- Ruth Ann [...] Mild decrease* G3a 45-59 Mild to moderate pacjcbcyS1t 30-44 Moderate to s evere decreaseG4 15-29 Severe decreaseG5 14 or less Kidney fa ilure eGFR-SUDHIR 80 mL/min/1.73m2 >=60 [facility] The CKD-EPI equation for non- Ruth Ann [...] Mild decrease* G3a 45-59 Mild to moderate snjyrkbjV3y 30-44 Moderate to s evere decreaseG4 15-29 Severe decreaseG5 14 or less Kidney fa ilure ID Date Data Source [id number] 02/06/2020 08:11:00 AM EDT [facility] Name Value Range Interpretation Description Data Sup porting Code Source(s) Document(s ) Neut Auto 65.5 % 50.0-80.0 NO [facility] Lymph Auto 22.5 % 14.0-44.0 NO [facility] Preble Auto 10.3 % 0.0-12.0 NO [facility] Eos Auto 0.9 % 0.0-7.0 NO [facility] Baso Auto 0.8 % 0.0-3.0 NO [facility] Neut 4.7 2.0-8.4 NO [place] Absolute x10(3)/[facility] Lymph 1.6 0.6-4.8 NO [place] Absolute x10(3)/[facility] Preble 0.7 0.0-1.1 NO [place] Absolute x10(3)/[facility] Eos Absolute 0.1 0.0-0.5 NO [place] x10(3)/[facility] Baso 0.1 0.0-0.3 NO [place] Absolute x10(3)/[facility] ID Date Data Source [id number] 02/06/2020 08:11:00 AM EDT [facility] nurse collect 02/06/2020 07:42:31 EDT [facility] Name Value Range Interpretation Description Data Sup porting Code Source(s) Document(s ) WBC 7.2 4.0-10.5 NO [place] x10(3)/[facility] RBC 4.98 3.80-5.20 NO [facility] x10(6)/[facility] Hgb 11.9 11.4-15.1 NO [place] gm/dL [facility] Hct 36.8 % 36.0-46.0 NO [facility] MCV 74 fL 80-98 [facility] MCH 23.8 pg 26.0-34.0 [facility] MCHC 32.2 32.0-36.0 NO [place] gm/dL [facility] RDW 18.2 % 11.0-15.0 [facility] Platelet 393 150-400 NO [facility] x[facility](3[facility] MPV 7.0 fL 8.5-13.0 [facility] ID Date Data Source [id number] 02/09/2020 11:41:00 PM EDT [facility] [id number]} [facility] Patient: MARIELA ROME Age: 69 years [...] done in December of [address] Michael morris that was reportedly normal. Patient denies fevers, [...] 155 cm . Basic Oxygen Information 02/06/20 20 6:46 EDT SpO2 98 % . General: [...] Oral and IV: Differential , Automated: ED [employer] Worker: EKG: Lipase Level: PT/INR: Pepcid IV.: 20 [...] 10:07Signed: Rudy Chicas MD 02/06/20 10:20Transcribed by: MBREPHITESHThijohn document has an image Result type: CT Abdomen Pelvis Oral and IVResult date: February 06, 2020 10:06 EDTResult status: Auth (Verified)Result title: CT Abdomen Pelvis Oral and IVPerformed by: Rudy Chicas MD on February 06, 2020 10:0 7 EDTVerified by: Rudy Chicas MD on February 06, 2020 10:20 EDTEncounter info: [id number], [facility], Emergency Room, 02/06/2020 - , Reason For [...] 09:13Signed: Ky Foreman DO 02/06/20 09:15Transcribed by: DALJIT Hernandez document has an image Result type: XR Chest PortableResult date: February 06, 2020 9:13 EDTResult status: Auth (Verified)Result title: XR Chest Portabl ePerformed by: Ky Foreman DO on February 06, 2020 9:13 EDTVerified by: Ky Foreman DO on February 06, 2020 9:15 EDTEncounter info: [id number], [facility], Emergency Room, 02/06/2020 - , Time: 0744Rate: [...] Auto 65.5 % Lymph Auto 22.5 % Preble Auto 10.3 % Eos Auto 0.9 % Baso Auto 0.8 % Neut Absolute 4.7 x10(3)/mcL Lymph Absolute 1.6 x10(3 )/mcL [place] Absolute 0.7 x10(3)/mcL Eos Absolute 0.1 x10(3)/mcL [...] Impression and Plan Diagnosis Acute vomiting - [id number] R11.10, Discharge Pl an Condition: Improved, Stable. Disposition: Discharged: Time 02/06/2020 11:13:00, to home. Patient was given the following educational materials: Diet for Vomiting or Diarrhea (Adult). Follow up with: Amanuel Newman Within 1 to 2 days PLEASE FOL LOW UP WITH DR. NEWMAN for you vomiting and dilated pancreatic duct.; Clary Pelayo son Within 1 to 2 days. Counseled: Patient, Regarding diagnosis, Regarding diagnosti c results, Regarding treatment plan, Patient indicated understanding of instructions. Addendum Attestation: Scribe Attestation: Nadia Eller, 02/06/2020 07:18:00, Scrib ing for and in the presence of,Damir DO, Laura J.. Provider Attestation: I person ally performed the services described in the documentation, reviewed and edited the d ocumentation which was dictated to the scribe in my presence and it accurately records my words and actions., Elsy May DO.02/06/2020 08:19:52 Comment by: Clary Engle ma name diff card scanned from prev in ins screen matches ------ 02/06/2020 08:13:32 Comment by: Clary Jacobs verbal consent/ tele healthconsent/ verf info / ins from prev Clary Jacobs [address] [place] [address] [id number] edicaid REGGIEELIN LEADBETTER [id number] sign ed by Elsy May DO 02/09/2020 23:41 EDTElectronically signed by Nadia Eller 02/06/2020 11:17 EDT Name Value Range Interpretation Code Description Data Mariana rce(s) Supporting Document(s ) ID Date Data Source [id number] 02/02/2020 03:29:00 PM EDT [facility] Name Value Range Interpretation Code Description Data Supporting Source(s) Document(s ) Troponin- <0.03 <=0.05 NO [facility] I ng/mL [facility] ID Date Data Source [id number] 02/02/2020 03:26:00 PM EDT [facility] Name Value Range Interpretation Description Data Sup porting Code Source(s) Document(s ) Glucose Lvl 123 65-99 HI [place] mg/dL [facility] BUN 9.6 6.0-20.0 NO [place] mg/dL [facility] Creatinine 0.82 0.40-1.0 NO [place] mg/dL 0 [facility] BUN/Creat 11.7 7.0-29.0 NO [place] Ratio ratio [facility] Sodium Lvl 135 136-145 LO [place] mmol/L [facility] Potassium Lvl 4.1 3.5-5.1 NO [place] mmol/L [facility] Chloride 103 98-107 NO [place] mmol/L [facility] CO2 18 23-29 LO [facility] mmol/L [facility] AGAP 14 5-15 NO [place] [facility] Calcium Lvl 9.5 8.6-10.0 NO [place] mg/dL [facility] Total Protein 7.8 6.0-8.3 NO [place] gm/dL [facility] Albumin Lvl 3.9 3.5-5.0 NO [place] gm/dL [facility] Glob 3.9 2.0-4.5 NO [place] gm/dL [facility] A/G Ratio 1.0 1.0-2.2 NO [place] ratio [facility] Bili Total 1.0 0.3-1.2 NO [place] mg/dL [facility] Alk Phos 121 IU/L 38-126 NO [facility] AST 32 IU/L 15-41 NO [facility] ALT 15 IU/L 7-40 NO [facility] ID Date Data Source [id number] 02/02/2020 03:18:00 PM EDT [facility] Added by Discern Rule GLB_ADD_GFR_CMP Name Value Range Interpretation Code Description Data Mariana rce(s) Supporting Document(s ) eGFR-AA 83 >=60 NO [facility] mL/min/[address] The CKD-EPI equation for non- Ruth [...] Mild decrease* G3a 45-59 Mild to moderate eqetgwuoL8m 30-44 Moderate to s evere decreaseG4 15-29 Severe decreaseG5 14 or less Kidney fa ilure eGFR-SUDHIR 69 mL/min/1.73m2 >=60 NO [facility] The CKD-EPI equation for non- Ruth [...] Mild decrease* G3a 45-59 Mild to moderate yoedrwuqD5c 30-44 Moderate to s evere decreaseG4 15-29 Severe decreaseG5 14 or less Kidney fa ilure ID Date Data Source [id number] 02/02/2020 03:13:00 PM EDT [facility] Name Value Range Interpretation Description Data Sup porting Code Source(s) Document(s ) Neut Auto 68.7 % 50.0-80.0 NO [facility] Lymph Auto 22.9 % 14.0-44.0 NO [facility] Preble Auto 7.0 % 0.0-12.0 NO [facility] Eos Auto 0.8 % 0.0-7.0 NO [facility] Baso Auto 0.6 % 0.0-3.0 NO [facility] Neut 6.7 2.0-8.4 NO [place] Absolute x10(3)/[facility] Lymph 2.2 0.6-4.8 NO [place] Absolute x10(3)/[facility] Preble 0.7 0.0-1.1 NO [place] Absolute x10(3)/[facility] Eos Absolute 0.1 0.0-0.5 NO [place] x10(3)/[facility] Baso 0.1 0.0-0.3 NO [place] Absolute x10(3)/[facility] ID Date Data Source [id number] 02/02/2020 03:13:00 PM EDT [facility] Name Value Range Interpretation Description Data Sup porting Code Source(s) Document(s ) WBC 9.8 4.0-10.5 NO [place] x10(3)/[facility] RBC 5.00 3.80-5.20 NO [place] x10(6)/[facility] Hgb 11.7 11.4-15.1 NO [place] gm/dL [facility] Hct 37.5 % 36.0-46.0 NO [facility] MCV 75 fL 80-98 [facility] MCH 23.5 pg 26.0-34.0 LO [facility] MCHC 31.4 32.0-36.0 LO [facility] gm/dL [facility] RDW 18.6 % 11.0-15.0 [facility] Platelet 370 150-400 NO [facility] x10(3)/[facility] MPV 7.4 fL 8.5-13.0 [facility] ID Date Data Source {[id number] 02/09/2020 07:55:00 AM EDT [facility] [id number]} [facility] Patient: MARIELA ROME Age: 69 years Sex: Female : 1950 Associated Diagnoses: Eructation Autho r: Neal Gamino MD Basic Information Time seen: Date and time 02/02/2020 14:48 :00. History source: Patient. Arrival mode: Private vehicle, walking. History limita tion: None. Additional information: Chief Complaint from Nursing Triage Note : Chi ef Complaint 02/02/2020 13:51 EDT Chief Complaint states was here tues day night, vomiting, and nausea, unable to keep food down ,m frequent belching, can not keep meds down either . History of Present Illness 69 year old female with a past medical history of MAURICIO, HTN, HLD, acid reflux, anxiety, and asthma presents to the ED for an evaluation of nausea and vomiting onset 2 days ago. Pt states alberto t she has been unable to tolerate [...] sinus rhythm, No ST-T changes, no rmal [place] and QRS intervals, The [place] is normal. . Results review: Lab results : [facility] 02/02/2020 14:40 EDT WBC 9.8 x10(3)/mcL RBC 5.00 x10(6)/mcL Hgb 11. 7 gm/dL Hct 37.5 % MCV 75 fL LOW MCH 23.5 pg LOW MCHC 31.4 gm/dL LOW RDW 18.6 % HI Platelet 370 x10(3)/mcL MPV 7.4 fL LOW Neut Auto 68.7 % Lymph Auto 22.9 % Preble Auto 7.0 % Eos Auto 0.8 % Baso Auto 0.6 % Neut Absolute 6.7 x10(3)/mc L Lymph Absolute 2.2 x10(3)/mcL [place] Absolute 0.7 x10(3)/mcL Eos Absolute 0. 1 [...] Monitored 74 bpm Respiratory Rate 22 br/min [place] Basic Oxygen Informa tion 02/02/2020 15:53 EDT SpO2 97 % Oxygen Therapy Room air 02/02/2020 15:33 EDT SpO 2 98 % Oxygen Therapy Room air per nurse's notes Notes: Patient rechecked. Patient is resting comfortably and states they are feeling better. Discussed with patient r daljitults, diagnosis, treatment plan, follow up instructions with PCP, and plan for disc harge. Strict verbal discharge instructions and precautions given, and patient under stands to return to the ED with any new or worsening symptoms. Patient understands and accept the plan for discharge at this time. . Impression and Plan Diagnosis E ructation - [id number] R14.2, Discharge Plan Condition: Improved, Stable. Dispositio [...] for and in the presence of,Stevenson MD, [facility], Provider Attestation: I personally performed the services described in the documentation, reviewed and edited the documentation which was dictated to the scribe in my presence and it accurately records my words and actions., Neal Gamino MD.02/02/2020 15:10:09 Comment by: Madeleine Hearn pcp verified phon e reg verbal consent -----Madeleine Hearn M[address] [id number] d [facility] JAVED [id number] sign ed by Neal Gamino MD 02/09/2020 07:55 EDTElectronically signed by Coby Last 02/02/2020 16:29 EDT Name Value Range Interpretation Code Description Data Mariana rce(s) Supporting Document(s ) ID Date Data Source [id number] 02/01/2020 01:22:00 AM EDT [facility] Patient Name: JHONATAN OROZCO ANEMRN: [id number] General DiagnosticACCESSION EXAM DATE/TIME PROCEDURE ORDERING PROVIDER [id number] 02/01/2020 01:14 EDT XR Neck Soft Tissue [...] Supporting Document(s ) ID Date Data Source [id number] 02/03/2020 10:43:00 AM [id number] MAR[facility]EL[facility] ROME Age: 69 years Sex: Female : 1950 Associated Diagnoses: Pain, dental; Dy sphagia Author: Joseluis LAFLEUR, Terry Denny Basic Information Time seen: Date and time 01/04 23:40:00. History source: Patient. Arrival mode: Ambulance-ALS. History morton itation: None. Additional information: Chief Complaint from Nursing Triage Note : Chi ef Complaint 01/31/2020 19:36 EDT Chief Complaint Feels a lump in thro at, had a tooth pulled 3 weeks ago and has stitches in mouth. Seen at [facility] a nd sent here [...] study done by Dr. Zuniga soon after [facility] came back normal. Patient also has [...] RKeaton on 12/02/2018 at 68 Years.Comments:12/02/2018 18:54 EST - Streva RN, Kiersten Walter-populated from documented surgical casethyroid [...] uto 71.5 % Lymph Auto 19.6 % [place] Auto 6.7 % Eos Auto 0.7 % Baso Auto 1.5 % Jamin t Absolute 8.5 x10(3)/mcL HI Lymph Absolute 2.3 x10(3)/mcL [place] Absolute 0 .8 x10(3)/mcL Eos Absolute 0.1 [...] February 01, 2020 1:14 EDTResult status: Auth (Verified)Re sult title: XR Neck Soft TissuePerformed by: Yas Hines MD on February 01, 2020 1: 19 EDTVerified by: Yas Hines MD on February 01, 2020 1:22 EDTEncounter info: [id number], [facility], Emergency Room, 01/31/2020 - . MEDICAL DECISION [...] FOLLOW UP WITH HER ORAL SURGEON AND ED MANAGER Reexamin ation/ Reevaluation Time: 02/01/2020 00:19:00 . [...] Impression and Plan Diagnosis Pain, dental - [id number] K08.89, Discharg e Pain, dental - [id number]-KS K08.89, Discharge Dysphagia - [id number] R13.10, Discharge P chio Condition: Improved. Disposition: [...] day and follow up with Dr Zuniga, nursing agency manager Within 3 to 5 days; y our [...] Scribing for and in the presence of,, Joseluis LAFLEUR, Terry C, Provider Attestation: I p ersonally performed the services described in the documentation, reviewed and edited t he documentation which was dictated to the scribe in my presence and it accurately records my words and actions.Joseluis MD, Richard C.01/31/2020 20:52:02 Comment by : Yas Rankin [employer]. Yas Rankin J[address] [id number] [facility] [id number] sign ed by Terry Huggins MD 02/03/2020 10:43 EDTElectronically signed by Teresa Rogers 02/01/2020 04:54 EDT Name Value Range Interpretation Code Description Data Mariana rce(s) Supporting Document(s ) ID Date Data Source [id number] 01/31/2020 10:58:00 PM EDT [facility] Name Value Range Interpretation Description Data Sup porting Code Source(s) Document(s ) UA Color Yellow NO [facility] UA Appear Clear NO [facility] UA pH 5.0-8.0 NO [facility] UA Spec Grav 1.016 1.005-1.030 NO [facility] UA Glucose Negative NO [facility] UA Ketones Negative AB [facility] UA Urobilinogen 0.2-1.0 NO [facility] UA Bili Negative NO [facility] UA Blood Negative NO [facility] UA Protein Negative NO [facility] UA Nitrite Negative NO [facility] UA Leuk Est Negative NO [facility] ID Date Data Source [id number] 01/31/2020 10:38:00 PM EDT [place] Name Value Range Interpretation Description Data Sup porting Code Source(s) Document(s ) Glucose Lvl 134 65-99 [place] mg/dL [facility] BUN 8.2 6.0-20.0 NO [place] mg/dL [facility] Creatinine 0.73 0.40-1.0 NO [facility] mg/dL 0 [facility] BUN/Creat 11.1 7.0-29.0 NO [place] Ratio ratio [facility] Sodium Lvl 139 136-145 NO [place] mmol/L [facility] Potassium Lvl 4.1 3.5-5.1 NO [place] mmol/L [facility] Chloride 106 98-107 NO [place] mmol/L [facility] CO2 21 23-29 LO [place] mmol/L [facility] AGAP 12 5-15 NO [place] [facility] Calcium Lvl 10.0 8.6-10.0 NO [place] mg/dL [facility] Total Protein 8.7 6.0-8.3 [place] gm/dL [facility] Albumin Lvl 4.4 3.5-5.0 NO [place] gm/dL [facility] Glob 4.3 2.0-4.5 [place] gm/dL [facility] A/G Ratio 1.0 1.0-2.2 NO [place] ratio [facility] Bili Total 0.7 0.3-1.2 [place] mg/dL [facility] Alk Phos 138 IU/L 38-126 [facility] AST 18 IU/L 15-41 [facility] ALT 11 IU/L 7-40 [facility] ID Date Data Source [id number] 01/31/2020 10:32:00 PM EDT [facility] Added by Discern Rule GLB_ADD_GFR_CMP Name Value Range Interpretation Code Description Data Mariana rce(s) Supporting Document(s ) eGFR-AA >90 >=60 [facility] mL/min/1.[address] [place] [address] The CKD-EPI equation for non- Ruth Ann [...] Mild decrease* G3a 45-59 Mild to moderate reptifcsW9r 30-44 Moderate to s evere decreaseG4 15-29 Severe decreaseG5 14 or less Kidney fa ilure eGFR-SUDHIR 79 mL/min/1.73m2 >=60 NO [facility] The CKD-EPI equation for non- Ruth [...] Mild decrease* G3a 45-59 Mild to moderate oxmynzwcT6r 30-44 Moderate to s evere decreaseG4 15-29 Severe decreaseG5 14 or less Kidney fa ilure ID Date Data Source [id number] 01/31/2020 10:29:00 PM EDT [facility] Name Value Range Interpretation Description Data Sup porting Code Source(s) Document(s ) Neut Auto 71.5 % 50.0-80.0 NO [facility] Lymph Auto 19.6 % 14.0-44.0 NO [facility] [place] Auto 6.7 % 0.0-12.0 [facility] Eos Auto 0.7 % 0.0-7.0 NO [facility] Baso Auto 1.5 % 0.0-3.0 NO [facility] Neut 8.5 2.0-8.4 [place] Absolute x10(3)/[facility] Lymph 2.3 0.6-4.8 NO [place] Absolute x10(3)/[facility] Preble 0.8 0.0-1.1 NO [place] Absolute x10(3)/[facility] Eos Absolute 0.1 0.0-0.5 [place] x10(3)/[facility] Baso 0.2 0.0-0.3 NO [place] Absolute x10(3)/[facility] ID Date Data Source [id number] 01/31/2020 10:29:00 PM EDT [facility] Name Value Range Interpretation Description Data Sup porting Code Source(s) Document(s ) WBC 11.9 4.0-10.5 [place] x10(3)/[facility] RBC 5.64 3.80-5.20 [place] x10(6)/[facility] Hgb 13.1 11.4-15.1 [place] gm/dL [facility] Hct 42.3 % 36.0-46.0 NO [facility] MCV 75 fL 80-98 [facility] MCH 23.2 pg 26.0-34.0 [facility] MCHC 30.9 32.0-36.0 [place] gm/dL [facility] RDW 18.7 % 11.0-15.0 [facility] Platelet 427 150-400 [place] x10(3)/[facility] MPV 7.1 fL 8.5-13.0 [facility] ID Date Data Source [id number] 01/31/2020 07:47:00 PM EDT [id number] Medical [facility] Patient: MARIELA ROME Age: 69 years [...] Focused Exam: Oropharynx zamora nt.Electronically signed by Sidney Mcclain PA-C 01/31/2020 19:47 EDT Name Value Range Interpretation Code Description Data Mariana rce(s) Supporting Document(s ) ID Date Data Source [id number] 12/20/2019 12:10:00 PM EDT [facility] Patient Name: JHONATAN OROZCO ANEMRN: [id number] MammographyACCESSION EXAM DATE/TIME PROCEDURE ORDERING PROVIDER [id number] 12/20/2019 11:44 EDT MM DX DIG OSVALDO Nikki EXCELSIOR PICKER, Auth (Verified ) LaMeshia MReason For E [...] (to age 85): 8.5 %According to the [place] [employer] of Radiology:1. Yearly screening bilateral breast MRI is recommended for patients with a lifetime risk greater than 20%.2. Screening ultrasound may be appro priate for patients with dense breasts.References:1. Jason-Franchesca Model Breast Cancer Risk Evaluation Tool: http://marilia.[employer].com/2. ACR Approp riateness Criteria Breast Cancer Screening: https://acsearch.acr.org/docs/81900/Narr ative/Thank you for allowing us to participate in the evaluation of this pa tient. Final BI-RADS Assessment: 2-Benign findingRecommendation: Normal interval follow-upDictated: Rudy Chicas MD 12/20/2019 12:01Signed: Rudy Kenney MD 12/20/2019 12:10Transcribed by: MB Name Value Range Interpretation Code Description Data Mariana rce(s) Supporting Document(s ) ID Date Data Source [id number] 12/20/2019 11:31:00 AM EDT [facility] Patient Name: JHONATAN OROZCO ANEMRN: [id number] UltrasoundACCESSION EXAM DATE/TIME PROCEDURE ORDERING PROVIDER [id number] 12/20/2019 10:20 EDT US Breast Complete [...] Supporting Document(s ) ID Date Data Source [id number] 10/08/2019 05:11:00 AM EST [facility] Patient Name: JHONATAN OROZCO ANEMRN: [id number] UltrasoundACCESSION EXAM DATE/TIME PROCEDURE ORDERING PROVIDER [id number] 10/08/2019 04:58 EST US Venous Doppler [...] Supporting Document(s ) ID Date Data Source [id number] 10/08/2019 04:50:00 AM EST [facility] Patient Name: JHONATAN OROZCO ANEMRN: [id number] General DiagnosticACCESSION EXAM DATE/TIME PROCEDURE ORDERING PROVIDER [id number] 10/08/2019 04:45 EST XR Knee 3 Views RT Jaciel LAFLEUR, Jamaal Penaloza Auth (Dino ified)Reason For Exam(XR Knee 3 [...] Supporting Document(s ) ID Date Data Source [id number] 12/06/2018 07:31:00 AM EST [facility] Name Value Range Interpretation Description Data Sup porting Code Source(s) Document(s ) Glucose Lvl 102 65-99 [place] mg/dL [facility] BUN 6.0 6.0-20.0 NO [place] mg/dL [facility] Creatinine 0.66 0.40-1.0 [place] mg/dL 0 [facility] BUN/Creat 9.1 7.0-29.0 NO [place] Ratio ratio [facility] Sodium Lvl 138 136-145 NO [place] mmol/L [facility] Potassium Lvl 4.0 3.5-5.1 NO [place] mmol/L [facility] Chloride 106 98-107 [place] mmol/L [facility] CO2 23 23-29 [place] mmol/L [facility] AGAP 9 5-15 NO [place] [facility] Calcium Lvl 8.9 8.6-10.0 [place] mg/dL [facility] ID Date Data Source [id number] 12/06/2018 07:32:00 AM EST [facility] Name Value Range Interpretation Code Description Data Mariana rce(s) Supporting Document(s ) eGFR-AA >60 >=60 NO [place] [facility] mL/min/[address] [place] [address] Added by Discern Rule GLB_ADD_GFR_BMP eGFR-SUDHIR >60 mL/min/1.73m2 >=60 NO [facility] Added by Discern Rule GLB_ADD_GFR_BMP ID Date Data Source [id number] 12/06/2018 07:21:00 AM EST [facility] Name Value Range Interpretation Description Data Sup porting Code Source(s) Document(s ) Neut Auto 51.6 % 50.0-80.0 NO [facility] Lymph Auto 33.1 % 14.0-44.0 NO [facility] [place] Auto 10.3 % 0.0-12.0 NO [facility] Eos Auto 4.4 % 0.0-7.0 NO [facility] Baso Auto 0.6 % 0.0-3.0 NO [facility] Neut 2.9 2.0-8.4 NO [place] Absolute x10(3)/[facility] Lymph 1.8 0.6-4.8 NO [place] Absolute x10(3)/[facility] Pre[place] 0.6 0.0-1.1 NO [place] Absolute x10(3)/[facility] Eos Absolute 0.2 0.0-0.5 [place] x10(3)/[facility] Baso 0.0 0.0-0.3 NO [place] Absolute x10(3)/[facility] ID Date Data Source [id number] 12/06/2018 07:21:00 AM EST [facility] Name Value Range Interpretation Description Data Sup porting Code Source(s) Document(s ) WBC 5.5 4.0-10.5 [place] x10(3)/[facility] RBC 4.12 3.80-5.20 [place] x10(6)/[facility] Hgb 10.3 11.4-15.1 [place] gm/dL [facility] Hct 32.0 % 36.0-46.0 [facility] MCV 78 fL 80-98 [facility] MCH 25.1 pg 26.0-34.0 [facility] MCHC 32.3 32.0-36.0 [place] gm/dL [facility] RDW 17.4 % 11.0-15.0 [facility] Platelet 319 150-400 [place] x10(3)/[facility] MPV 7.6 fL 8.5-13.0 [facility] ID Date Data Source [id number] 12/05/2018 07:01:00 AM EST [facility] Name Value Range Interpretation Code Description Data Mariana rce(s) Supporting Document(s ) eGFR-AA >60 >=60 NO [facility] mL/min/[address] Added by Discern Rule GLB_ADD_GFR_BMP eGFR-SUDHIR >60 mL/min/1.73m2 >=60 [facility] Added by Discern Rule GLB_ADD_GFR_BMP ID Date Data Source [id number] 12/05/2018 07:01:00 AM EST [facility] Name Value Range Interpretation Description Data Sup porting Code Source(s) Document(s ) Glucose Lvl 96 mg/dL 65-99 NO [facility] BUN 3.0 6.0-20.0 [place] mg/dL [facility] Creatinine 0.66 0.40-1.0 [place] mg/dL 0 [facility] BUN/Creat 4.5 7.0-29.0 [place] Ratio ratio [facility] Sodium Lvl 139 136-145 [place] mmol/L [facility] Potassium Lvl 3.9 3.5-5.1 [place] mmol/L [facility] Chloride 107 98-107 [place] mmol/L [facility] CO2 23 23-29 [place] mmol/L [facility] AGAP 9 5-15 NO [facility] Calcium Lvl 9.1 8.6-10.0 [place] mg/dL [facility] ID Date Data Source [id number] 12/05/2018 06:53:00 AM EST [facility] Name Value Range Interpretation Description Data Sup porting Code Source(s) Document(s ) Neut Auto 47.6 % 50.0-80.0 LO [facility] Lymph Auto 36.3 % 14.0-44.0 NO [facility] [place] Auto 11.2 % 0.0-12.0 NO [facility] Eos Auto 4.2 % 0.0-7.0 NO [facility] Baso Auto 0.7 % 0.0-3.0 NO [facility] Neut 2.7 2.0-8.4 NO [place] Absolute x10(3)/[facility] Lymph 2.0 0.6-4.8 NO [place] Absolute x10(3)/[facility] Preble 0.6 0.0-1.1 NO [place] Absolute x10(3)/[facility] Eos Absolute 0.2 0.0-0.5 [place] x10(3)/[facility] Baso 0.0 0.0-0.3 NO [place] Absolute x10(3)/[facility] ID Date Data Source [id number] 12/05/2018 06:53:00 AM EST [facility] Name Value Range Interpretation Description Data Sup porting Code Source(s) Document(s ) WBC 5.6 4.0-10.5 [place] x10(3)/[facility] RBC 4.43 3.80-5.20 [place] x10(6)/[facility] Hgb 11.2 11.4-15.1 [place] gm/dL [facility] Hct 34.3 % 36.0-46.0 [facility] MCV 78 fL 80-98 [facility] MCH 25.4 pg 26.0-34.0 [facility] MCHC 32.7 32.0-36.0 [place] gm/dL [facility] RDW 17.7 % 11.0-15.0 [facility] Platelet 338 150-400 [place] x10(3)/[facility] MPV 7.3 fL 8.5-13.0 [facility] ID Date Data Source [id number] 12/04/2018 06:19:00 AM EST [facility] Name Value Range Interpretation Description Data Sup porting Code Source(s) Document(s ) Glucose Lvl 99 mg/dL 65-99 NO [facility] BUN 1.0 6.0-20.0 [place] mg/dL [facility] Creatinine 0.52 0.40-1.0 [place] mg/dL 0 [facility] BUN/Creat 1.9 7.0-29.0 [place] Ratio ratio [facility] Sodium Lvl 139 136-145 [place] mmol/L [facility] Potassium Lvl 3.8 3.5-5.1 [place] mmol/L [facility] Chloride 109 98-107 [place] mmol/L [facility] CO2 24 23-29 [place] mmol/L [facility] AGAP 6 5-15 NO [facility] Calcium Lvl 8.6 8.6-10.0 [place] mg/dL [facility] ID Date Data Source [id number] 12/04/2018 06:19:00 AM EST [facility] Name Value Range Interpretation Code Description Data Mariana rce(s) Supporting Document(s ) eGFR-AA >60 >=60 NO [facility] mL/min/[address] Added by Discern Rule GLB_ADD_GFR_BMP eGFR-SUDHIR >60 mL/min/1.73m2 >=60 NO [facility] Added by Discern Rule GLB_ADD_GFR_BMP ID Date Data Source [id number] 12/04/2018 06:11:00 AM EST [facility] Name Value Range Interpretation Description Data Sup porting Code Source(s) Document(s ) Neut Auto 49.5 % 50.0-80.0 [facility] Lymph Auto 34.4 % 14.0-44.0 [facility] [place] Auto 11.5 % 0.0-12.0 [facility] Eos Auto 4.2 % 0.0-7.0 NO [facility] Baso Auto 0.4 % 0.0-3.0 [facility] Neut 2.4 2.0-8.4 NO [place] Absolute x10(3)/[facility] Lymph 1.7 0.6-4.8 NO [place] Absolute x10(3)/[facility] Pre[place] 0.6 0.0-1.1 NO [place] Absolute x10(3)/[facility] Eos Absolute 0.2 0.0-0.5 [place] x10(3)/[facility] Baso 0.0 0.0-0.3 NO [place] Absolute x10(3)/[facility] ID Date Data Source [id number] 12/04/2018 06:11:00 AM EST [facility] Name Value Range Interpretation Description Data Sup porting Code Source(s) Document(s ) WBC 4.9 4.0-10.5 [place] x10(3)/[facility] RBC 4.45 3.80-5.20 [place] x10(6)/[facility] Hgb 11.1 11.4-15.1 [place] gm/dL [facility] Hct 35.3 % 36.0-46.0 [facility] MCV 79 fL 80-98 [facility] MCH 25.0 pg 26.0-34.0 [facility] MCHC 31.5 32.0-36.0 [place] gm/dL [facility] RDW 17.5 % 11.0-15.0 [facility] Platelet 319 150-400 [place] x10(3)/[facility] MPV 7.1 fL 8.5-13.0 [facility] ID Date Data Source [id number] 12/04/2018 06:24:00 PM EST [facility] Name Value Range Interpretation Code Description Data Mariana rce(s) Supporting Document(s ) GGT 19 IU/L 7-50 NO [facility] ID Date Data Source [id number] 12/03/2018 11:02:00 AM EST [facility] Name Value Range Interpretation Description Data Sup porting Code Source(s) Document(s ) WBC 4.9 4.0-10.5 [place] x10(3)/[facility] RBC 4.53 3.80-5.20 [place] x10(6)/[facility] Hgb 11.2 11.4-15.1 [place] gm/dL [facility] Hct 35.7 % 36.0-46.0 [facility] MCV 79 fL 80-98 [facility] MCH 24.6 pg 26.0-34.0 [facility] MCHC 31.2 32.0-36.0 [place] gm/dL [facility] RDW 17.5 % 11.0-15.0 [facility] Platelet 319 150-400 [facility] MPV 7.0 fL 8.5-13.0 [facility] ID Date Data Source [id number] 12/03/2018 05:43:00 AM EST [facility] Name Value Range Interpretation Description Data Sup porting Code Source(s) Document(s ) Magnesium 2.0 mg/dL 1.6-2.6 NO [facility] ID Date Data Source [id number] 12/03/2018 05:39:00 AM [facility] Name Value Range Interpretation Code Description Data Mariana rce(s) Supporting Document(s ) eGFR-AA >60 >=60 NO [facility] mL/min/1.[address] [place] [address] eGFR-SUDHIR >60 >=60 NO [facility] mL/min/1.[address] [place] [address] Added by Discern Rule GLB_ADD_GFR_CMP ID Date Data Source [id number] 12/03/2018 05:39:00 AM EST [facility] Name Value Range Interpretation Description Data Sup porting Code Source(s) Document(s ) Phosphorus 4.6 mg/dL 2.5-5.0 NO [facility] ID Date Data Source [id number] 12/03/2018 05:39:00 AM EST [facility] Name Value Range Interpretation Description Data Sup porting Code Source(s) Document(s ) Glucose Lvl 94 mg/dL 65-99 NO [facility] BUN 3.0 6.0-20.0 [place] mg/dL [facility] Creatinine 0.64 0.40-1.0 [place] mg/dL 0 [facility] BUN/Creat 4.7 7.0-29.0 [place] Ratio ratio [facility] Sodium Lvl 137 136-145 [place] mmol/L [facility] Potassium Lvl 4.3 3.5-5.1 [place] mmol/L [facility] Chloride 109 98-107 [place] mmol/L [facility] CO2 23 23-29 [place] mmol/L [facility] AGAP 5 5-15 [facility] Calcium Lvl 8.9 8.6-10.0 [place] mg/dL [facility] Total Protein 6.4 6.0-8.3 [place] gm/dL [facility] Albumin Lvl 3.2 3.5-5.0 [place] gm/dL [facility] Glob 3.2 2.0-4.5 [place] gm/dL [facility] A/G Ratio 1.0 1.0-2.2 [place] ratio [facility] Bili Total 0.9 0.3-1.2 [place] mg/dL [facility] Alk Phos 136 IU/L 38-126 [facility] AST 14 IU/L 15-41 [facility] ALT 9 IU/L 7-40 NO [facility] ID Date Data Source [id number] 12/03/2018 05:25:00 AM EST [facility] Name Value Range Interpretation Code Description Data Mariana rce(s) Supporting Document(s ) APTT 39.9 27.4-38.2 [facility] ID Date Data Source [id number] 12/03/2018 05:19:00 AM EST [facility] Name Value Range Interpretation Description Data Sup porting Code Source(s) Document(s ) Neut Auto 64.5 % 50.0-80.0 NO [facility] Lymph Auto 24.7 % 14.0-44.0 [facility] [place] Auto 8.2 % 0.0-12.0 NO [facility] Eos Auto 2.2 % 0.0-7.0 [facility] Baso Auto 0.4 % 0.0-3.0 NO [facility] Neut 3.4 2.0-8.4 [place] Absolute x10(3)/[facility] Lymph 1.3 0.6-4.8 NO [place] Absolute x10(3)/[facility] [place] 0.4 0.0-1.1 NO [place] Absolute x10(3)/[facility] Eos Absolute 0.1 0.0-0.5 [place] x10(3)/[facility] Baso 0.0 0.0-0.3 NO [place] Absolute x10(3)/[facility] ID Date Data Source [id number] 12/03/2018 05:19:00 AM EST [facility] Name Value Range Interpretation Description Data Sup porting Code Source(s) Document(s ) WBC 5.2 4.0-10.5 [place] x10(3)/[facility] RBC 4.52 3.80-5.20 [place] x10(6)/[facility] Hgb 11.3 11.4-15.1 [place] gm/dL [facility] Hct 35.6 % 36.0-46.0 [facility] MCV 79 fL 80-98 [facility] MCH 25.0 pg 26.0-34.0 [facility] MCHC 31.8 32.0-36.0 [place] gm/dL [facility] RDW 17.8 % 11.0-15.0 [facility] Platelet 320 150-400 [place] x10(3)/[facility] MPV 7.3 fL 8.5-13.0 [facility] ID Date Data Source [id number] 12/02/2018 09:19:00 PM EST [facility] Name Value Range Interpretation Code Description Data Mariana rce(s) Supporting Document(s ) INR 1.1 ratio 0.9-1.2 NO [facility] PT 13.8 10.2-12.9 [facility](s) [facility] Indications INRProphylaxis ofvenous thromo-embolism: Non-hipsurgery...... .........................1.5 - 2.5 Hipsurgery.............................. .....2.0 - 3.0Deep VeinThrombosis or Pulmonary Embolism........2.0 - 3.0Preve ntion ofsystemic embolism in valvularheart disease, tissue prosthetic heartvalvesor acute [place]...................................... .2.0 -3.5Prevention of embolism in mechanical heartvalves or recurrentsystemic embolis m.............3.0 - 4.5 ID Date Data Source [id number] 12/02/2018 09:04:00 PM EST [facility] Name Value Range Interpretation Description Data Sup porting Code Source(s) Document(s ) WBC 6.4 4.0-10.5 [place] x10(3)/[facility] RBC 4.43 3.80-5.20 [place] x10(6)/[facility] Hgb 11.2 11.4-15.1 [place] gm/dL [facility] Hct 34.3 % 36.0-46.0 [facility] MCV 77 fL 80-98 [facility] MCH 25.3 pg 26.0-34.0 [facility] MCHC 32.8 32.0-36.0 [place] gm/dL [facility] RDW 17.5 % 11.0-15.0 [facility] Platelet 340 150-400 [place] x10(3)/[facility] MPV 7.3 fL 8.5-13.0 [facility] Pt when to GI lab 12/02/2018 19:04:51 EST JA ID Date Data Source [id number] 12/02/2018 03:55:00 PM EST [facility] Name Value Range Interpretation Code Description Data Mariana rce(s) Supporting Document(s ) ABSC Gel NO [facility] ID Date Data Source [id number] 12/02/2018 03:38:00 PM EST [facility] Name Value Range Interpretation Code Description Data Mariana rce(s) Supporting Document(s ) ABO/Rh UN [facility] ID Date Data Source [id number] 12/02/2018 01:47:00 PM EST [facility] Name Value Range Interpretation Description Data Sup porting Code Source(s) Document(s ) Neut Auto 81.1 % 50.0-80.0 [facility] Lymph Auto 13.2 % 14.0-44.0 [facility] [place] Auto 4.0 % 0.0-12.0 [facility] Eos Auto 0.7 % 0.0-7.0 NO [facility] Baso Auto 1.0 % 0.0-3.0 [facility] Neut 7.3 2.0-8.4 NO [place] Absolute x10(3)/[facility] Lymph 1.2 0.6-4.8 NO [place] Absolute x10(3)/[facility] Preble 0.4 0.0-1.1 NO [place] Absolute x10(3)/[facility] Eos Absolute 0.1 0.0-0.5 [place] x10(3)/[facility] Baso 0.1 0.0-0.3 NO [place] Absolute x10(3)/[facility] ID Date Data Source [id number] 12/02/2018 01:47:00 PM EST [facility] Name Value Range Interpretation Description Data Sup porting Code Source(s) Document(s ) WBC 9.0 4.0-10.5 [place] x10(3)/[facility] RBC 4.87 3.80-5.20 [place] x10(6)/[facility] Hgb 12.2 11.4-15.1 [place] gm/dL [facility] Hct 38.1 % 36.0-46.0 NO [facility] MCV 78 fL 80-98 [facility] MCH 25.1 pg 26.0-34.0 [facility] MCHC 32.1 32.0-36.0 [place] gm/dL [facility] RDW 17.9 % 11.0-15.0 [facility] Platelet 380 150-400 [place] x10(3)/[facility] MPV 7.3 fL 8.5-13.0 [facility] ID Date Data Source [id number] 12/02/2018 02:13:00 PM EST [facility] Name Value Range Interpretation Code Description Data Mariana rce(s) Supporting Document(s ) eGFR-AA >60 >=60 NO [facility] mL/min/1.[address] [place] [address] Added by Discern Rule GLB_ADD_GFR_CMP eGFR-SUDHIR >60 mL/min/1.73m2 >=60 NO [facility] Added by Discern Rule GLB_ADD_GFR_CMP ID Date Data Source [id number] 12/02/2018 02:13:00 PM EST [facility] Name Value Range Interpretation Description Data Sup porting Code Source(s) Document(s ) Glucose Lvl 111 65-99 [place] mg/dL [facility] BUN 5.0 6.0-20.0 [place] mg/dL [facility] Creatinine 0.68 0.40-1.0 [place] mg/dL 0 [facility] BUN/Creat 7.4 7.0-29.0 [place] Ratio ratio [facility] Sodium Lvl 137 136-145 [place] mmol/L [facility] Potassium Lvl 3.5 3.5-5.1 [place] mmol/L [facility] Chloride 105 98-107 [place] mmol/L [facility] CO2 18 23-29 [place] mmol/L [facility] AGAP 14 5-15 NO [facility] Calcium Lvl 9.1 8.6-10.0 [place] mg/dL [facility] Total Protein 7.6 6.0-8.3 [place] gm/dL [facility] Albumin Lvl 3.8 3.5-5.0 [place] gm/dL [facility] Glob 3.8 2.0-4.5 [place] gm/dL [facility] A/G Ratio 1.0 1.0-2.2 [place] ratio [facility] Bili Total 1.1 0.3-1.2 [place] mg/dL [facility] Alk Phos 157 IU/L 38-126 HI [facility] AST 18 IU/L 15-41 NO [facility] ALT 10 IU/L 7-40 NO [facility] ID Date Data Source [id number] 11/17/2018 05:24:00 PM EST [place] Health Name Value Range Interpretation Description Data Sup porting Code Source(s) Document(s ) WBC 7.5 4.0-10.5 NO [place] x10(3)/[facility] RBC 4.64 3.80-5.20 NO [place] x10(6)/[facility] Hgb 11.6 11.4-15.1 NO [place] gm/dL [facility] Hct 35.6 % 36.0-46.0 [facility] MCV 77 fL 80-98 [facility] MCH 25.0 pg 26.0-34.0 [facility] MCHC 32.5 32.0-36.0 NO [place] gm/dL [facility] RDW 18.6 % 11.0-15.0 [facility] Platelet 363 150-400 NO [place] x10(3)/[facility] MPV 7.3 fL 8.5-13.0 [facility] ID Date Data Source [id number] 11/17/2018 05:34:00 PM [facility] Name Value Range Interpretation Code Description Data Mariana rce(s) Supporting Document(s ) Lipase Lvl 22 IU/L 22-51 NO [facility] ID Date Data Source [id number] 11/17/2018 05:36:00 PM EST [facility] Name Value Range Interpretation Code Description Data Supporting Source(s) Document(s ) Troponin- <0.03 <=0.05 NO [place] I ng/mL [facility] ID Date Data Source [id number] 11/17/2018 05:27:00 PM EST [facility] Name Value Range Interpretation Description Data Sup porting Code Source(s) Document(s ) Glucose Lvl 135 65-99 HI [place] mg/dL [facility] BUN 5.0 6.0-20.0 LO [place] mg/dL [facility] Creatinine 0.60 0.40-1.0 NO [place] mg/dL 0 [facility] BUN/Creat 8.3 7.0-29.0 NO [place] Ratio ratio [facility] Sodium Lvl 141 136-145 NO [place] mmol/L [facility] Potassium Lvl 3.7 3.5-5.1 NO [place] mmol/L [facility] Chloride 110 98-107 HI [place] mmol/L [facility] CO2 21 23-29 LO [place] mmol/L [facility] AGAP 10 5-15 [facility] Calcium Lvl 9.0 8.6-10.0 NO [place] mg/dL [facility] Total Protein 7.1 6.0-8.3 NO [place] gm/dL [facility] Albumin Lvl 3.6 3.5-5.0 NO [place] gm/dL [facility] Glob 3.5 2.0-4.5 NO [place] gm/dL [facility] A/G Ratio 1.0 1.0-2.2 NO [place] ratio [facility] Bili Total 0.5 0.3-1.2 NO [place] mg/dL [facility] Alk Phos 138 IU/L 38-126 HI [facility] AST 18 IU/L 15-41 NO [facility] ALT 8 IU/L 7-40 [facility] ID Date Data Source [id number] 11/17/2018 05:27:00 PM EST [facility] Name Value Range Interpretation Code Description Data Mariana rce(s) Supporting Document(s ) eGFR-AA >60 >=60 NO [facility] mL/min/1.[address] Added by Discern Rule GLB_ADD_GFR_CMP eGFR-SUDHIR >60 mL/min/1.73m2 >=60 NO [facility] Added by Discern Rule GLB_ADD_GFR_CMP ID Date Data Source [id number] 11/17/2018 05:24:00 PM EST [facility] Name Value Range Interpretation Description Data Sup porting Code Source(s) Document(s ) Neut Auto 63.9 % 50.0-80.0 NO [facility] Lymph Auto 24.5 % 14.0-44.0 NO [facility] Preble Auto 7.9 % 0.0-12.0 NO [facility] Eos Auto 3.0 % 0.0-7.0 NO [facility] Baso Auto 0.7 % 0.0-3.0 NO [facility] Neut 4.8 2.0-8.4 NO [place] Absolute x10(3)/[facility] Lymph 1.8 0.6-4.8 NO [place] Absolute x10(3)/[facility] Preble 0.6 0.0-1.1 NO [place] Absolute x10(3)/[facility] Eos Absolute 0.2 0.0-0.5 NO [place] x10(3)/[facility] Baso 0.1 0.0-0.3 NO [place] Absolute x10(3)/[facility] ID Date Data Source [id number] 11/17/2018 06:07:00 PM EST [facility] Name Value Range Interpretation Description Data Sup porting Code Source(s) Document(s ) D-Dimer <150.0 0.0-230.0 NO [place] ng/ml D-DU [facility] If the result is below 230 (ng/mL DDU) D VT/PE is highly unlikely based onclinical studies and a test validation at [facility]. This is an exclusionary test.A normal D-dimer does not exclude the possibility of DIC. If theresult is greater than 230 (ng/mL DDU) DVT/PE or DIC may be present. Procedure Social History Code Duration Value Status Description Data Source(s ) Smoking 02/26/2020 Never smoked completed Never smoked [place] [facility] - 02:41:10 AM EDT tobacco tobacco (finding) [facility] (finding) [facility] Smoking 02/20/2020 Never smoked completed Never smoked [place] [facility] - 05:31:31 PM EDT tobacco tobacco (finding) [facility] Smoking 02/20/2020 Never smoked completed Never smoked [place] [facility] - 05:31:31 PM EDT tobacco tobacco (finding) [facility] (finding) [facility] Smoking 02/20/2020 Never smoked completed Never smoked [place] [facility] - 05:31:31 PM EDT tobacco tobacco (finding) [facility] (finding) [facility] Smoking 02/20/2020 Never smoked completed Never smoked [place] [facility] - 05:31:31 PM EDT tobacco tobacco (finding) [facility] (finding) [facility] Smoking 02/13/2020 Never smoked completed Never smoked [place] [facility] - 05:00:13 AM EDT tobacco tobacco (finding) [facility] (finding) [facility] Smoking 02/13/2020 Never smoked completed Never smoked [place] [facility] - 05:00:13 AM EDT tobacco tobacco (finding) [facility] (finding) [facility] Smoking 02/13/2020 Never smoked completed Never smoked [place] [facility] - 05:00:13 AM EDT tobacco tobacco (finding) [facility] (finding) [facility] Smoking 02/13/2020 Never smoked completed Never smoked [place] [facility] - 05:00:13 AM EDT tobacco tobacco (finding) [facility] (finding) [facility] Smoking 02/13/2020 Never smoked completed Never smoked [place] [facility] - 05:00:13 AM EDT tobacco tobacco (finding) [facility] ([facility] Smoking 02/13/2020 Never smoked completed Never smoked [place] [facility] - 05:00:13 AM EDT tobacco tobacco (finding) [facility] ([facility] Smoking 02/13/2020 Never smoked completed Never smoked [place] [facility] - 05:00:13 AM EDT tobacco tobacco (finding) [facility] (finding[facility] Smoking 02/13/2020 Never smoked completed Never smoked [place] [facility] - 05:00:13 AM EDT tobacco tobacco (finding) [facility] (finding[facility] Smoking 02/13/2020 Never smoked completed Never smoked [place] [facility] - 05:00:13 AM EDT tobacco tobacco (finding) [facility] (finding) [facility] Smoking 02/11/2020 Never smoked completed Never smoked [place] [facility] - 07:46:34 AM EDT tobacco tobacco (finding) [facility] (finding) [facility] Smoking 02/06/2020 Never smoked completed Never smoked [place] [facility] - 06:49:40 AM EDT tobacco tobacco (finding) [facility] (finding) [facility] Smoking 02/06/2020 Never smoked completed Never smoked [place] [facility] - 06:49:40 AM EDT tobacco tobacco (finding) [facility] (finding) [facility] Smoking 02/06/2020 Never smoked completed Never smoked [place] [facility] - 06:49:40 AM EDT tobacco tobacco (finding) [facility] Smoking 02/06/2020 Never Smoker completed Never Smoker eCW3 ([facility] 12:00:00 AM EDT [facility]) Smoking 02/06/2020 Never Smoker completed Never Smoker eCW3 ([facility] 12:00:00 AM EDT [facility]) Smoking 02/06/2020 Never Smoker completed Never Smoker eCW3 ([facility] 12:00:00 AM EDT [facility]) Smoking 01/31/2020 Never smoked completed Never smoked [place] [facility] - 10:38:00 PM EDT tobacco tobacco (finding) [facility] (finding[facility] Smoking 01/31/2020 Never smoked completed Never smoked [place] [facility] - 10:38:00 PM EDT tobacco tobacco (finding) [facility] (finding) [facility] Smoking 10/08/2019 Never smoked completed Never smoked [place] [facility] - 03:46:32 AM EST tobacco tobacco (finding) [facility] (finding[facility] Smoking 10/08/2019 Never smoked completed Never smoked [place] [facility] - 03:46:32 AM EST tobacco tobacco (finding) [facility] (finding) [facility] Smoking 10/08/2019 Never smoked completed Never smoked [place] [facility] - 03:46:32 AM EST tobacco tobacco (finding) [facility] (finding) [facility] Smoking 10/08/2019 Never smoked completed Never smoked [place] [facility] - 03:46:32 AM EST tobacco tobacco (finding) [facility] (finding) [facility] Smoking 07/06/2019 Never Smoker completed Never Smoker eCW3 ([facility] 12:00:00 AM EDT [facility]) Smoking 03/11/2019 Never smoked completed Never smoked [place] [facility] - 10:00:42 AM EDT tobacco tobacco (finding) [facility] (finding) [facility] Smoking 11/26/2018 Never Smoker completed Never Smoker eCW3 ([facility] 12:00:00 AM EST [facility]) Never Smoker completed Never Smoker eCW3 ([facility]) Never Smoker completed Never Smoker eCW3 ([facility]) Never Smoker completed Never Smoker eCW3 ([facility]) Smoking Never smoked completed Never smoked [place] [facility] alth - tobacco tobacco (finding) [facility] (finding) [facility] Never Smoker completed Never Smoker eCW3 ([facility]) Smoking Never smoked completed Never smoked [place] [facility] alth - tobacco tobacco (finding) [facility] (finding) [facility] Smoking Never smoked completed Never smoked [place] [facility] alth - tobacco tobacco (finding) [facility] (finding) [facility] Smoking Never smoked completed Never smoked [place] [facility] alth - tobacco tobacco (finding) [facility] (finding) [facility] Smoking Never smoked completed Never smoked [place] [facility] al[facility] - tobacco tobacco (finding) [facility] (finding) [facility] Never Smoker completed Never Smoker eCW3 ([facility]) Vital Signs ID Date Data Source UNK [...] m2 1.4 m2 [facility] Derived from [facility] m formula Body weight 51.93 kg 51.93 kg [facility] Body height 154.94 cm 154.94 cm [facility] Body surface area 1.5 m2 1.5 m2 [facility] [facility] Derived from Health Syste m formula Body mass index 24.7 kg/m2 24.7 kg/m2 [facility] (BMI) [Ratio] Health Syst em Body weight 59.42 kg 59.42 kg [facility] Body height 154.94 cm 154.94 cm [facility] Body temperature 98.2 0 - 200 Normal (applies to 98.2 [degF] [facility] [degF] non-numeric Health System results) Body temperature 36.7 Lico 0 - 99.9 Normal (applies to 36.7 Lico [facility] non-numeric Health System results) Diastolic blood 100 mm[Hg] 0 - 999 Above upper panic 100 mm[Hg] [facility] pressure limits [facility] System Systolic blood 176 mm[Hg] 0 - 999 Above high normal 176 mm[Hg] [facility] pressure [facility] Oxygen saturation 97 % 0 - 999 Normal (applies to 97 % [facility] in Arterial blood non-numeric Health System by Pulse oximetry results) Respiratory rate 17 0 - 999 Normal (applies to 17 [facility] non-numeric [facility] System results) Heart rate 95 0 - 999 Normal (applies to 95 [facility] non-numeric [facility] System results) Body mass index 24.56 24.56 kg/m2 [facility] (BMI) [Ratio] kg/m2 [facility] Body weight 59 kg 59 kg [facility] Measured [facility] Body height 155 cm 155 cm [facility] Body mass index 24.56 24.56 kg/m2 [facility] (BMI) [Ratio] kg/m2 [facility] Oxygen saturation 100 % 94-100 % Normal (applies to 100 % [facility] in Blood non-numeric - House Postductal by results) [place] Pulse oximetry Medical nter Oxygen therapy [facility] alth [Minimum Data - House Set] [facility] Diastolic blood 96 mm[Hg] 60-90 mmHg 96 mm[Hg] [facility] ealth pressure - [facility] Systolic blood 146 mm[Hg] 90-130 Above high normal 146 mm[Hg] [facility] pressure mmHg - [facility] Respiratory rate 18 br/min 14-20 Normal (applies to 18 br/min [facility] br/min non-numeric - Arturo results) [facility] Heart rate 94 bpm 60-100 bpm Normal (applies to 94 bpm [facility] non-numeric - House results) [facility] Oral temperature 98.9 96.4-99.1 Normal (applies to 98.9 [degF] [facility] [degF] DegF non-numeric - House results) [facility] Oral temperature 97.7 96.4-99.1 Normal (applies to 97.7 [degF] [facility] [degF] DegF non-numeric - House results) [facility] Oxygen saturation 96 % 94-100 % Normal (applies to 96 % [facility] in Blood non-numeric - Arturo Postductal by results) [place] Pulse oximetry Medical nter Heart rate 74 bpm 60-100 bpm Normal (applies to 74 bpm [facility] non-numeric - House results) [facility] Mean blood 96 mm[Hg] 96 mm[Hg] [facility] Health pressure by - House Noninvasive [facility] Diastolic blood 81 mm[Hg] 60-90 mmHg Normal (applies to 81 mm[Hg] [facility] pressure non-numeric - House results) [facility] Systolic blood 128 mm[Hg] 90-130 Normal (applies to 128 mm[Hg] [facility] pressure mmHg non-numeric - Arturo results) [facility] Oxygen therapy [place] [facility] alth [Minimum Data - House Set] [facility] Oxygen saturation 97 % 94-100 % Normal (applies to 97 % [facility] Tatt[place] in Blood non-numeric - House Postductal by results) [place] Pulse oximetry [facility] nt Heart rate 79 bpm 60-100 bpm Normal (applies to 79 bpm van e Health non-numeric - House results) [facility] Mean blood 78 mm[Hg] 78 mm[Hg] [facility] Tattva pressure by - Arturo Noninvasive [facility] Diastolic blood 66 mm[Hg] 60-90 mmHg Normal (applies to 66 mm[Hg] [facility] pressure non-numeric - Arturo results) [facility] Systolic blood 103 mm[Hg] 90-130 Normal (applies to 103 mm[Hg] [facility] pressure mmHg non-numeric - House results) [facility] Oral temperature 98.2 96.4-99.1 Normal (applies to 98.2 [degF] [facility] T[facility]va [degF] DegF non-numeric - Arturo results) [facility] Oxygen therapy [place] [facility] alth [Minimum Data - Arturo Set] [facility] Rea Body Weight 47.7 kg 47.7 kg [facility] Usual Weight 64.6 kg 64.6 kg [facility] Body mass index 24.56 24.56 kg/m2 [facility] (BMI) [Ratio] kg/m2 [facility] Daily Weight 59 kg 59 kg [facility] Body height 155 cm 155 cm [facility]xygen [facility] [Minimum Data - House Set] [facility] Respiratory rate 18 br/min 14-20 Normal (applies to 18 br/min [facility] br/min non-numeric - Arturo results) [facility] Oral temperature 97.8 96.4-99.1 Normal (applies to 97.8 [degF] [facility] [degF] DegF non-numeric - Arturo results) [facility] Oxygen saturation 99 % 94-100 % Normal (applies to 99 % [facility] in Blood non-numeric - House Postductal by results) [place] Pulse oximetry Medical nt Heart rate 76 bpm 60-100 bpm Normal (applies to 76 bpm [facility] non-numeric - Arturo results) [facility] Mean blood 91 mm[Hg] 91 mm[Hg] [facility] pressure by - House Noninvasive [facility] Diastolic blood 77 mm[Hg] 60-90 mmHg Normal (applies to 77 mm[Hg] [facility] pressure non-numeric - House results) [facility] Systolic blood 119 mm[Hg] 90-130 Normal (applies to 119 mm[Hg] [facility] pressure mmHg non-numeric - House results) [facility] Respiratory rate 20 br/min 14-20 Normal (applies to 20 br/min [facility] br/min non-numeric - House results) [facility] Respiratory rate 18 br/min 14-20 Normal (applies to 18 br/min [facility] br/min non-numeric - House results) [facility] Rea Body Weight 47.7 kg 47.7 kg [facility] Usual Weight 64.6 kg 64.6 kg [facility] Body mass index 24.56 24.56 kg/m2 [facility] (BMI) [Ratio] kg/m2 [facility] Daily Weight 59 kg 59 kg [facility] Body height 155 cm 155 cm [facility] Blood [facility] measurement site - [facility] Blood pressure [place] [facility] alth measurement site - [facility] Blood pressure [place] He alth measurement site - [facility] Body temperature 97.6 97.9-100.6 Below low normal 97.6 [degF] [facility] Health - Temporal artery [degF] DegF - [facility] Body mass index 24.56 24.56 kg/m2 [facility] (BMI) [Ratio] kg/m2 - [facility] Body weight 59 kg 59 kg [facility] Measured - [facility] Body height 155 cm 155 cm [facility] h - [facility] Body mass index 24.56 24.56 kg/m2 [facility] (BMI) [Ratio] kg/m2 - [facility] Respiratory rate 18 br/min 14-20 Normal (applies to 18 br/min [facility] br/min non-numeric - Arturo results) [facility] Oral temperature 98.3 96.4-99.1 Normal (applies to 98.3 [degF] [facility] Health [degF] DegF non-numeric - House results) [facility] Oxygen saturation 99 % 94-100 % Normal (applies to 99 % [facility] in Blood non-numeric - House Postductal by results) [place] Pulse oximetry [facility] nt Heart rate 95 bpm 60-100 bpm Normal (applies to [address] [facility] e Health non-numeric - House results) [facility] Blood pressure [facility] measurement site - [facility] Mean blood 85 mm[Hg] 85 mm[Hg] [facility] Health pressure by - Arturo Noninvasive [facility] Diastolic blood 74 mm[Hg] 60-90 mmHg Normal (applies to 74 mm[Hg] [facility] pressure non-numeric - House results) [facility] Systolic blood 109 mm[Hg] 90-130 Normal (applies to 109 mm[Hg] [facility] pressure mmHg non-numeric - House results) [facility] Respiratory rate 20 br/min 14-20 Normal (applies to 20 br/min [facility] br/min non-numeric - House results) [facility] Oral temperature 98.5 96.4-99.1 Normal (applies to 98.5 [degF] [facility] [degF] DegF non-numeric - House results) [facility] Oxygen saturation 100 % 94-100 % Normal (applies to 100 % [facility] in Blood non-numeric - Arturo Postductal by results) [place] Pulse oximetry Medical nter Heart rate 92 bpm 60-100 bpm Normal (applies to 92 bpm [facility] non-numeric - House results) [facility] Mean blood 111 mm[Hg] 111 mm[Hg] [facility] pressure by - Arturo Noninvasive [facility] Diastolic blood 92 mm[Hg] 60-90 mmHg 92 mm[Hg] [facility] H ealth pressure - [facility] Systolic blood 149 mm[Hg] 90-130 Above high normal 149 mm[Hg] [facility] pressure mmHg - [facility] Respiratory rate 16 br/min 14-20 Normal (applies to 16 br/min [facility] br/min non-numeric - Arturo results) [facility] Oral temperature 97.9 96.4-99.1 Normal (applies to 97.9 [degF] [facility] [degF] DegF non-numeric - House results) [facility] Oxygen saturation 98 % 94-100 % Normal (applies to 98 % [facility] in Blood non-numeric - House Postductal by results) [place] Pulse oximetry Medical nter Heart rate 92 bpm 60-100 bpm Normal (applies to 92 bpm [facility] non-numeric - House results) [facility] Blood pressure [facility] measurement site - [facility] Mean blood 80 mm[Hg] 80 mm[Hg] [facility] pressure by - Arturo Noninvasive [facility] Diastolic blood 67 mm[Hg] 60-90 mmHg Normal (applies to 67 mm[Hg] [facility] pressure non-numeric - Arturo results) [facility] Systolic blood 104 mm[Hg] 90-130 Normal (applies to 104 mm[Hg] [facility] pressure mmHg non-numeric - Arturo results) [facility] Blood pressure [facility] measurement site - [facility] Oxygen therapy [place] He alth [Minimum Data - Arturo Set] [facility] Oxygen therapy [place] He alth [Minimum Data - Arturo Set] [facility] Oxygen therapy Nule[place] alth [Minimum Data - House Set] [facility] Axillary 97.8 95.3-99 Normal (applies to 97.8 [degF] [facility] temperature [degF] DegF non-numeric - Arturo results) [facility] Rea Body Weight 50 kg 50 kg [facility] Usual Weight 65.9 kg 65.9 kg [facility] Body mass index 23.94 23.94 kg/m2 [facility] (BMI) [Ratio] kg/m2 [facility] Daily Weight 59 kg 59 kg [facility] Body height 157 cm 157 cm [facility] Oxygen Therapy Nuleann [place] alth Activity [facility] Inhaled oxygen 3 L/min 3 L/min Ciarasylvesterafia [place] alth flow rate [facility] Oxygen Therapy [facility] Tympanic membrane 97.1 97.9-100.6 Below low normal 97.1 [degF] [facility] temperature [degF] DegF [facility] Heart rate 95 bpm 60-100 bpm Normal (applies to 95 bpm [facility] Cardiac apex by non-numeric - Arturo by Auscultation results) [facility] Body height 157 cm 157 cm [facility] FIO2 21 % 21 % [facility] BSA Measured [id number] 1.986101 [facility]2 [facility] m2 [facility] Body mass index 23.94 23.94 kg/m2 [facility] (BMI) [Ratio] kg/m2 [facility] Body weight 59 kg 59 kg [facility] Body height 157 cm 157 cm [facility] Body mass index 23.94 23.94 kg/m2 [facility] (BMI) [Ratio] kg/m2 - [facility] Body weight 59.0 kg 59.0 kg [facility] Measured - [facility] Body mass index 23.94 23.94 kg/m2 [facility] (BMI) [Ratio] kg/m2 - [facility] Mean blood 83 mm[Hg] 83 mm[Hg] [facility] Tattva pressure by - House Noninvasive [facility] Oxygen therapy Nusylvesterce He alth [Minimum Data - Arturo Set] [facility] Diastolic blood 66 mm[Hg] 60-90 mmHg Normal (applies to 66 mm[Hg] [facility] pressure non-numeric - Arturo results) [facility] Systolic blood 117 mm[Hg] 90-130 Normal (applies to 117 mm[Hg] [facility] Tattva pressure mmHg non-numeric - House results) [facility] Oxygen saturation 98 % 94-100 % Normal (applies to 98 % [facility] Tattva in Blood non-numeric - House Postductal by results) [place] Pulse oximetry Medical Ce nter Respiratory rate 25 br/min 14-20 Above high normal 25 br/min [facility] br/min - House [facility] Heart rate 88 bpm 60-100 bpm Normal (applies to [address] [facility] non-numeric - House results) [facility] [facility] [place] [Minimum Data - Arturo Set] [facility] Oxygen saturation 93 % 94-100 % Below low normal 93 % [facility] [place] in Blood - House Postductal by [place] Pulse oximetry Medical Ce nter Respiratory rate 17 br/min 14-20 Normal (applies to 17 br/min [facility] br/min non-numeric - Arturo results) [facility] Heart rate 81 bpm 60-100 bpm Normal (applies to 81 bpm [facility] non-numeric - House results) [facility] Oxygen therapy [facility] al[facility] [Minimum Data - Arturo Set] [facility] Oral temperature 98.5 96.4-99.1 Normal (applies to 98.5 [degF] [facility] Tattva [degF] DegF non-numeric - Arturo results) [facility] Oxygen saturation 95 % 94-100 % Normal (applies to 95 % [facility] in Blood non-numeric - House Postductal by results) [place] Pulse oximetry Medical nter Respiratory rate 16 br/min 14-20 Normal (applies to 16 br/min [facility] Health br/min non-numeric - House results) [facility] Heart rate 77 bpm 60-100 bpm Normal (applies to [address] [facility] e Health non-numeric - Arturo results) [facility] Mean blood 77 mm[Hg] 77 mm[Hg] [facility] Health pressure by - House Noninvasive [facility] Blood pressure [facility] - [facility] Diastolic blood 64 mm[Hg] 60-90 mmHg Normal (applies to 64 mm[Hg] [facility] pressure non-numeric - House results) [facility] Systolic blood 102 mm[Hg] 90-130 Normal (applies to 102 mm[Hg] [facility] Health pressure mmHg non-numeric - House results) [facility] Mean blood 88 mm[Hg] 88 mm[Hg] [facility] Health pressure by - House Noninvasive [facility] Blood pressure [facility] measurement [facility] - [facility] Diastolic blood 75 mm[Hg] 60-90 mmHg Normal (applies to 75 mm[Hg] [facility] pressure non-numeric - House results) [facility] Systolic blood 114 mm[Hg] 90-130 Normal (applies to 114 mm[Hg] [facility] pressure mmHg non-numeric - House results) [facility] Blood pressure [facility] measurement site - [facility] Body mass index 24.79 24.79 kg/m2 [facility] Health (BMI) [Ratio] kg/m2 - [facility] Body weight 59.548 kg 59.548 kg [facility] Measured - [facility] Body height 155 cm 155 cm [facility] h - [facility] Body mass index 24.79 24.79 kg/m2 [facility] Health (BMI) [Ratio] kg/m2 - [facility] Oral temperature 98.6 96.4-99.1 Normal (applies to 98.6 [degF] [facility] [degF] DegF non-numeric - Arturo results) [facility] Oxygen saturation 100 % 94-100 % Normal (applies to 100 % [facility] in Blood non-numeric - Arturo Postductal by results) [place] Pulse oximetry Medical nter Diastolic blood 82 mm[Hg] 60-90 mmHg Normal (applies to 82 mm[Hg] [facility] pressure non-numeric - Arturo results) [facility] Systolic blood 142 mm[Hg] 90-130 Above high normal 142 mm[Hg] [facility] pressure mmHg - House [facility] Respiratory rate 18 br/min 14-20 Normal (applies to 18 br/min [facility] br/min non-numeric - Arturo results) [facility] Heart rate 84 bpm 60-100 bpm Normal (applies to [address] [facility] e Health non-numeric - Arturo results) [facility] Oral temperature 98.4 96.4-99.1 Normal (applies to 98.4 [degF] [facility] [degF] DegF non-numeric - House results) [facility] Body height 155 cm 155 cm [facility] h [facility] Body mass index 24.77 24.77 kg/m2 [facility] (BMI) [Ratio] kg/m2 - [facility] Oxygen saturation 100 % 94-100 % Normal (applies to 100 % [facility] in Blood non-numeric - House Postductal by results) [place] Pulse oximetry Medical nter Oxygen therapy [facility] alth [Minimum Data - House Set] [facility] Diastolic blood 88 mm[Hg] 60-90 mmHg Normal (applies to 88 mm[Hg] [facility] pressure non-numeric - Arturo results) [facility] Systolic blood 150 mm[Hg] 90-130 Above high normal 150 mm[Hg] [facility] pressure mmHg - Arturo [facility] Respiratory rate 18 br/min 14-20 Normal (applies to 18 br/min [facility] br/min non-numeric - Arturo results) [facility] Heart rate 82 bpm 60-100 bpm Normal (applies to [address] [facility] e Health non-numeric - Arturo results) [facility] Oral temperature 98.6 96.4-99.1 Normal (applies to 98.6 [degF] [facility] [degF] DegF non-numeric - House results) [facility] Body mass index 24.77 24.77 kg/m2 [facility] (BMI) [Ratio] kg/m2 [facility] Body weight 59.5 kg 59.5 kg [facility] Measured [facility] Mean blood 109 mm[Hg] 109 mm[Hg] [facility] pressure by - House Noninvasive [facility] Diastolic blood 92 mm[Hg] 60-90 mmHg 92 mm[Hg] [facility] ealth pressure - [facility] Systolic blood 142 mm[Hg] 90-130 Above high normal 142 mm[Hg] [facility] pressure mmHg - [facility] Oxygen saturation 100 % 94-100 % Normal (applies to 100 % [facility] Health in Blood non-numeric - Arturo Postductal by results) [place] Pulse oxim[facility] Ce [facility] Respiratory rate 19 br/min 14-20 Normal (applies to 19 br/min [facility] br/min non-numeric - Arturo results) [facility] Heart rate 101 bpm 60-100 bpm Above high normal 101 bpm [facility] Body mass index 24.37 24.37 kg/m2 [facility] (BMI) [Ratio] kg/m2 [facility] Body weight 60.06 kg 60.06 kg [facility] Measured - [facility] Body height 157 cm 157 cm [facility] Body mass index 24.37 24.37 kg/m2 [facility] (BMI) [Ratio] kg/m2 [facility] Oxygen saturation 100 % 94-100 % Normal (applies to 100 % [facility] in Blood non-numeric - Arturo Postductal by results) [place] Pulse oxim[facility] Ce [facility]ter Oxygen therapy [facility] He alth [Minimum Data - House Set] [facility] Diastolic blood 126 mm[Hg] 60-90 mmHg 126 mm[Hg] [facility] - Arturo [facility] Systolic blood 175 mm[Hg] 90-130 Above high normal 175 mm[Hg] [facility] pressure mmHg - House [facility] Respiratory rate 24 br/min 14-20 Above high normal 24 br/min [facility] br/min - House [facility] Heart rate 108 bpm 60-100 bpm Above high normal 108 bpm [facility] - Arturo [facility] Oral temperature 98.3 96.4-99.1 Normal (applies to 98.3 [degF] [facility] Health [degF] DegF non-numeric - Arturo results) [facility] Diastolic blood 73 mm[Hg] 60-90 mmHg Normal (applies to 73 mm[Hg] [facility] pressure non-numeric - Arturo results) [facility] Systolic blood 111 mm[Hg] 90-130 Normal (applies to 111 mm[Hg] [facility] pressure mmHg non-numeric - Arturo results) [facility] Oxygen therapy [place] [Minimum Data - Arturo Set] [facility] Oxygen saturation 100 % 94-100 % Normal (applies to 100 % [facility] in Blood non-numeric - Arturo Postductal by results) [place] Pulse oximetry Medical nter Respiratory rate 18 br/min 14-20 Normal (applies to 18 br/min [facility] br/min non-numeric - Arturo results) [facility] Heart rate 94 bpm 60-100 bpm Normal (applies to [address] [facility] e Health non-numeric - Arturo results) [facility] Oral temperature 98.1 96.4-99.1 Normal (applies to 98.1 [degF] [facility] [degF] DegF non-numeric - House results) [facility] Mean blood 101 mm[Hg] 101 mm[Hg] [facility] pressure by - Arturo Noninvasive [facility] Diastolic blood 86 mm[Hg] 60-90 mmHg Normal (applies to 86 mm[Hg] [facility] pressure non-numeric - Arturo results) [facility] Systolic blood 131 mm[Hg] 90-130 Above high normal 131 mm[Hg] [facility] pressure mmHg - House [facility] Oxygen saturation 97 % 94-100 % Normal (applies to 97 % [facility] in Blood non-numeric - House Postductal by results) [place] Pulse oximetry [facility] Ce [facility]ter Respiratory rate 29 br/min 14-20 Above high normal 29 br/min [facility] Health br/min [facility] Heart rate 88 bpm 60-100 bpm Normal (applies to [address] [facility] Health non-numeric - House results) [facility] Body mass index 24.98 24.98 kg/m2 [facility] (BMI) [Ratio] kg/m2 [facility] Body weight 60.003 kg 60.003 kg [facility] Measured [facility] Body height 155 cm 155 cm [facility] Body mass index 24.98 24.98 kg/m2 [facility] (BMI) [Ratio] kg/m2 [facility] Oxygen saturation 99 % 94-100 % Normal (applies to 99 % [facility] in Blood non-numeric - House Postductal by results) [place] Pulse oximetry [facility] Ce [facility]ter Oxygen therapy [facility] alth [Minimum Data - House Set] [facility] Diastolic blood 80 mm[Hg] 60-90 mmHg Normal (applies to 80 mm[Hg] [facility] Health pressure non-numeric - Arturo results) [facility] Systolic blood 169 mm[Hg] 90-130 Above high normal 169 mm[Hg] [facility] pressure mmHg - [facility] Respiratory rate 28 br/min 14-20 Above high normal 28 br/min [facility] Health br/min [facility] Heart rate 102 bpm 60-100 bpm Above high normal 102 bpm [facility] Oral temperature 98.2 96.4-99.1 Normal (applies to 98.2 [degF] [facility] Health [degF] DegF non-numeric - Arturo results) [facility] Mean blood 97 mm[Hg] 97 mm[Hg] [facility] Health pressure by - Arturo Noninvasive [facility] Oxygen saturation 97 % 94-100 % Normal (applies to 97 % [facility] in Blood non-numeric - House Postductal by results) [place] Pulse oximetry Medical nter Diastolic blood 73 mm[Hg] 60-90 mmHg Normal (applies to 73 mm[Hg] [facility] pressure non-numeric - Arturo results) [facility] Systolic blood 144 mm[Hg] 90-130 Above high normal 144 mm[Hg] [facility] pressure mmHg - Arturo [facility] Respiratory rate 18 br/min 14-20 Normal (applies to 18 br/min [facility] br/min non-numeric - Arturo results) [facility] Heart rate 72 bpm 60-100 bpm Normal (applies to 72 bpm [facility] non-numeric - House results) [facility] Oral temperature 97.9 96.4-99.1 Normal (applies to 97.9 [degF] [facility] [degF] DegF non-numeric - Arturo results) [facility] Mean blood 83 mm[Hg] 83 mm[Hg] [facility] pressure by - Arturo Noninvasive [facility] Heart rate 77 bpm 60-100 bpm Normal (applies to 77 bpm [facility] non-numeric - House results) [facility] Respiratory rate 18 br/min 14-20 Normal (applies to 18 br/min [facility] br/min non-numeric - House results) [facility] Oral temperature 98 [degF] 96.4-99.1 Normal (applies to 98 [degF] [facility] DegF non-numeric - Arturo results) [facility] Oxygen saturation 99 % 94-100 % Normal (applies to 99 % [facility] in Blood non-numeric - Arturo Postductal by results) [place] Pulse oximetry Medical nter Diastolic blood 67 mm[Hg] 60-90 mmHg Normal (applies to 67 mm[Hg] [facility] pressure non-numeric - Arturo results) [facility] Systolic blood 116 mm[Hg] 90-130 Normal (applies to 116 mm[Hg] [facility] pressure mmHg non-numeric - Arturo results) [facility] Heart rate 87 bpm 60-100 bpm Normal (applies to 87 bpm [facility] non-numeric - Arturo results) [facility] Respiratory rate 19 br/min 14-20 Normal (applies to 19 br/min [facility] Health br/min non-numeric - House results) [facility] Oral temperature 98.6 96.4-99.1 Normal (applies to 98.6 [degF] [facility] Health [degF] DegF non-numeric - Arturo results) [facility] Oxygen saturation 98 % 94-100 % Normal (applies to 98 % [facility] in Blood non-numeric - House Postductal by results) [place] Pulse oximetry Medical Ce nter Mean blood 104 mm[Hg] 104 mm[Hg] [facility] Health pressure by - House Noninvasive [facility] Diastolic blood 89 mm[Hg] 60-90 mmHg Normal (applies to 89 mm[Hg] [facility] pressure non-numeric - Arturo results) [facility] Systolic blood 135 mm[Hg] 90-130 Above high normal 135 mm[Hg] [facility] Health pressure mmHg - [facility] Body mass index 24.97 24.97 kg/m2 [facility] (BMI) [Ratio] kg/m2 - [facility] Body weight 60 kg 60 kg [facility] Measured - [facility] Body height 155 cm 155 cm [facility] Body mass index 24.97 24.97 kg/m2 [facility] (BMI) [Ratio] kg/m2 - [facility] Mean blood 88 mm[Hg] 88 mm[Hg] [facility] pressure by - Arturo Noninvasive [facility] Oxygen therapy [facility] [Minimum Data - Arturo Set] [facility] Oxygen saturation 97 % 94-100 % Normal (applies to 97 % [facility] in Blood non-numeric - House Postductal by results) [place] Pulse oximetry [facility] Ce [facility]ter Diastolic blood 79 mm[Hg] 60-90 mmHg Normal (applies to 79 mm[Hg] [facility] pressure non-numeric - Arturo results) [facility] Systolic blood 106 mm[Hg] 90-130 Normal (applies to 106 mm[Hg] [facility] pressure mmHg non-numeric - House results) [facility] Respiratory rate 24 br/min 14-20 Above high normal 24 br/min [facility] br/min - House [facility] Heart rate 69 bpm 60-100 bpm Normal (applies to 69 bpm [facility] non-numeric - House results) [facility] Oxygen therapy [place] alth [Minimum Data - House Set] [facility] Mean blood 89 mm[Hg] 89 mm[Hg] [facility] pressure by - Arturo Noninvasive [facility] Oxygen saturation 98 % 94-100 % Normal (applies to 98 % [place] [facility] in Blood non-numeric - House Postductal by results) [place] Pulse oximetry Medical Ce nter Diastolic blood 70 mm[Hg] 60-90 mmHg Normal (applies to 70 mm[Hg] [facility] pressure non-numeric - Arturo results) [facility] Systolic blood 128 mm[Hg] 90-130 Normal (applies to 128 mm[Hg] [facility] T[facility] pressure mmHg non-numeric - House results) [facility] Respiratory rate 22 br/min 14-20 Above high normal 22 br/min [facility] br/min - [facility] Heart rate 74 bpm 60-100 bpm Normal (applies to 74 bpm [facility] non-numeric - Arturo results) [facility] Body mass index 22.04 22.04 kg/m2 [facility] (BMI) [Ratio] kg/m2 [facility] Body weight 60 kg 60 kg [facility] Measured [facility] Body height 165 cm 165 cm [facility] Body mass index 22.04 22.04 kg/m2 [facility] (BMI) [Ratio] kg/m2 [facility] Oxygen saturation 100 % 94-100 % Normal (applies to 100 % [facility] in Blood non-numeric - Arturo Postductal by results) [place] Pulse oximetry Medical Ce [facility]ter Oxygen therapy [facility] alth [Minimum Data - House Set] [facility] Diastolic blood 92 mm[Hg] 60-90 mmHg 92 mm[Hg] [facility] ealth pressure - [facility] Systolic blood 164 mm[Hg] 90-130 Above high normal 164 mm[Hg] [facility] pressure mmHg - Arturo [facility] Respiratory rate 16 br/min 14-20 Normal (applies to 16 br/min [facility] br/min non-numeric - House results) [facility] Heart rate 109 bpm 60-100 bpm Above high normal 109 bpm [facility] - House [facility] Oral temperature 98 [degF] 96.4-99.1 Normal (applies to 98 [degF] [facility] DegF non-numeric - House results) [facility] Mean blood 116 mm[Hg] 116 mm[Hg] [facility] pressure by - Arturo Noninvasive [facility] Oral temperature 97.8 96.4-99.1 Normal (applies to 97.8 [degF] [facility] [degF] DegF non-numeric - House results) [facility] Respiratory rate 16 br/min 14-20 Normal (applies to 16 br/min [facility] br/min non-numeric - House results) [facility] Oxygen therapy [facility] alth [Minimum Data - House Set] [facility] Mean blood 92 mm[Hg] 92 mm[Hg] [facility] pressure by - Arturo Noninvasive [facility] Heart rate 74 bpm 60-100 bpm Normal (applies to 74 bpm [facility] non-numeric - House results) [facility] Diastolic blood 74 mm[Hg] 60-90 mmHg Normal (applies to 74 mm[Hg] [facility] pressure non-numeric - Arturo results) [facility] Systolic blood 128 mm[Hg] 90-130 Normal (applies to 128 mm[Hg] [facility] pressure mmHg non-numeric - House results) [facility] Oxygen saturation 98 % 94-100 % Normal (applies to 98 % [facility] in Blood non-numeric - House Postductal by results) [place] Pulse oximetry [facility] Ce [facility]ter Oxygen therapy [place] [facility] [Minimum Data - Arturo Set] [facility] Oxygen saturation 100 % 94-100 % Normal (applies to 100 % [facility] in Blood non-numeric - House Postductal by results) [place] Pulse oximetry Medical Ce nter Mean blood 98 mm[Hg] 98 mm[Hg] [facility] pressure by - House Noninvasive [facility] Diastolic blood 77 mm[Hg] 60-90 mmHg Normal (applies to 77 mm[Hg] [facility] pressure non-numeric - House results) [facility] Systolic blood 139 mm[Hg] 90-130 Above high normal 139 mm[Hg] [facility] pressure mmHg - House [facility] Oxygen saturation 98 % 94-100 % Normal (applies to 98 % [facility] in Blood non-numeric - House Postductal by results) [place] Pulse oximetry Medical Ce [facility]ter [place]xygen therapy [place] [facility] alth [Minimum Data - Arturo Set] [facility] Respiratory rate 20 br/min 14-20 Normal (applies to 20 br/min [facility] br/min non-numeric - Arturo results) [facility] Heart rate 81 bpm 60-100 bpm Normal (applies to [address] [facility] e Health non-numeric - Arturo results) [facility] Vital Signs Dr. Joseluis Huggins aware [facility] Tattva Reported To aware of of BP as per MD Calvin Morris BP as per pt may be DC'c [place] pt may [facility] be DC'c Mean blood 116 mm[Hg] 116 mm[Hg] [facility] pressure by - Arturo Noninvasive [facility] Heart rate 72 bpm 60-100 bpm Normal (applies to 72 bpm [facility] non-numeric - House results) [facility] Oral temperature 97.7 96.4-99.1 Normal (applies to 97.7 [degF] [facility] [degF] DegF non-numeric - House results) [facility] Respiratory rate 20 br/min 14-20 Normal (applies to 20 br/min [facility] br/min non-numeric - Arturo results) [facility] Diastolic blood 93 mm[Hg] 60-90 mmHg 93 mm[Hg] [facility] - House [facility] Systolic blood 161 mm[Hg] 90-130 Above high normal 161 mm[Hg] [facility] pressure mmHg - Arturo [facility] Oral temperature 98.6 96.4-99.1 Normal (applies to 98.6 [degF] [facility] Health [degF] DegF non-numeric - Arturo results) [facility] Body mass index 25.81 25.81 kg/m2 [facility] (BMI) [Ratio] kg/m2 - [facility] Body weight 62 kg 62 kg [facility] h Measured - [facility] Body height 155 cm 155 cm [facility] h - [facility] Body mass index 25.81 25.81 kg/m2 [facility] (BMI) [Ratio] kg/m2 - [facility] Respiratory rate 18 br/min 14-20 Normal (applies to 18 br/min [facility] Health br/min non-numeric - House results) [facility] Oral temperature 97.4 96.4-99.1 Normal (applies to 97.4 [degF] [facility] Health [degF] DegF non-numeric - Arturo results) [facility] Oxygen saturation 97 % 94-100 % Normal (applies to 97 % [facility] [place] in Blood non-numeric - Arturo Postductal by results) [place] Pulse oximetry [facility] nt Heart rate 67 bpm 60-100 bpm Normal (applies to [address] [facility] e Health non-numeric - House results) [facility] Mean blood 106 mm[Hg] 106 mm[Hg] [facility] Health pressure by - Arturo Noninvasive [facility] Diastolic blood 84 mm[Hg] 60-90 mmHg Normal (applies to 84 mm[Hg] [facility] pressure non-numeric - House results) [facility] Systolic blood 149 mm[Hg] 90-130 Above high normal 149 mm[Hg] [facility] an[facility] Health pressure mmHg - [facility] Body mass index 26.49 26.49 kg/m2 [facility] (BMI) [Ratio] kg/m2 - [facility] Body weight 63.64 kg 63.64 kg [facility] h Measured - [facility] Body height 155 cm 155 cm [facility] h - [facility] Body mass index 26.49 26.49 kg/m2 [facility] (BMI) [Ratio] kg/m2 - [facility] Oxygen saturation 100 % 94-100 % Normal (applies to 100 % [facility] in Blood non-numeric - Arturo Postductal by results) [place] Pulse oximetry Medical Ce nter Oxygen therapy [facility] He alth [Minimum Data - House Set] [facility] Diastolic blood 94 mm[Hg] 60-90 mmHg 94 mm[Hg] [facility] H ealth pressure - House [facility] Systolic blood 153 mm[Hg] 90-130 Above high normal 153 mm[Hg] [facility] Respiratory rate 16 br/min 14-20 Normal (applies to 16 br/min [facility] br/min non-numeric - House results) [facility] Heart rate 81 bpm 60-100 bpm Normal (applies to 81 bpm [facility] non-numeric - House results) [facility] Diastolic blood 81 mm[Hg] 81 mm[Hg] eCW3 ([facility]) Systolic blood 146 mm[Hg] 146 mm[Hg] eCW3 ([facility]) Body temperature 97.8 97.8 [degF] eCW3 ([facility] [degF] [facility]) Body mass index 26.70 26.70 kg/m2 eCW3 ( chandni (BMI) [Ratio] kg/m2 [facility]) Body weight 146 146 [lb_av] eCW3 ([place] [lb_av] [facility]) Body height 62 [in_i] 62 [in_i] eCW3 ([facility]) Diastolic blood 82 mm[Hg] 82 mm[Hg] eCW3 ([facility]) Systolic blood 135 mm[Hg] 135 mm[Hg] eCW3 ([facility]) Body temperature 97.8 97.8 [degF] eCW3 ([facility] [degF] [facility]) Heart rate 18 /min 18 /min eCW3 ([facility]) Body mass index 25.60 25.60 kg/m2 eCW3 ([facility] (BMI) [Ratio] kg/m2 [facility]) Body weight 140 140 [lb_av] eCW3 ([place] [lb_av] [facility]) Body height 62 [in_i] 62 [in_i] eCW3 ([facility]) Diastolic blood 81 mm[Hg] 81 mm[Hg] eCW3 ([facility]) Systolic blood 139 mm[Hg] 139 mm[Hg] eCW3 ([facility]) Body height 62 [in_i] 62 [in_i] eCW3 ([facility]) Body weight 135 135 [lb_av] eCW3 ([place] [lb_av] [facility]) Body mass index 24.69 24.69 kg/m2 eCW3 ( [facility] (BMI) [Ratio] kg/m2 [facility]) Heart rate 18 /min 18 /min eCW3 ([facility]) Body temperature 97.8 97.8 [degF] eCW3 ([facility] [degF] [facility]) Systolic blood 132 mm[Hg] 132 mm[Hg] eCW3 ([facility]) Diastolic blood 76 mm[Hg] 76 mm[Hg] eCW3 ([facility]) Oxygen therapy [facility] [Minimum Data - Arturo Set] [facility] Oral temperature 98.2 96.4-99.1 Normal (applies to 98.2 [degF] [facility] [degF] DegF non-numeric - House results) [facility] Blood pressure [facility] measurement [facility] - [facility] Systolic blood 118 mm[Hg] 90-130 Normal (applies to 118 mm[Hg] [facility] pressure mmHg non-numeric - Arturo results) [facility] Diastolic blood 76 mm[Hg] 60-90 mmHg Normal (applies to 76 mm[Hg] [facility] pressure non-numeric - House results) [facility] Oxygen saturation 98 % 94-100 % Normal (applies to 98 % [facility] in Blood non-numeric - Arturo Postductal by results) [facility] nt Heart rate 72 bpm 60-100 bpm Normal (applies to [address] [facility] non-numeric - Arturo results) [facility] Daily Weight 60.2 kg 60.2 kg [facility] Oxygen saturation 96 % 94-100 % Normal (applies to 96 % [facility] in Blood non-numeric - House Postductal by results) [facility] Ce nter Blood pressure [facility] [Minimum Data - Arturo Set] [facility] Oral temperature 98.2 96.4-99.1 Normal (applies to 98.2 [degF] [facility] [degF] DegF non-numeric - House results) [facility] Heart rate 65 bpm 60-100 bpm Normal (applies to 65 bpm [facility] non-numeric - Arturo results) [facility] Respiratory rate 18 br/min 14-20 Normal (applies to 18 br/min [facility] br/min non-numeric - Arturo results) [facility] Systolic blood 113 mm[Hg] 90-130 Normal (applies to 113 mm[Hg] [facility] pressure mmHg non-numeric - House results) [facility] Diastolic blood 72 mm[Hg] 60-90 mmHg Normal (applies to 72 mm[Hg] [facility] pressure non-numeric - Arturo results) [facility] Mean blood 86 mm[Hg] 86 mm[Hg] [facility] pressure by - House Noninvasive [facility] Mean blood 89 mm[Hg] 89 mm[Hg] [facility] pressure by - House Noninvasive [facility] Systolic blood 117 mm[Hg] 90-130 Normal (applies to 117 mm[Hg] [facility] pressure mmHg non-numeric - House results) [facility] Diastolic blood 75 mm[Hg] 60-90 mmHg Normal (applies to 75 mm[Hg] [facility] pressure non-numeric - House results) [facility] Blood pressure [facility] [place] measurement site - [facility] Oxygen saturation 95 % 94-100 % Normal (applies to 95 % [facility] in Blood non-numeric - House Postductal by results) [facility] Ce [facility]ter Heart rate 59 bpm 60-100 bpm Below low normal 59 bpm [facility] House [facility] Respiratory rate 18 br/min 14-20 Normal (applies to 18 br/min [facility] br/min non-numeric - House results) [facility] Oral temperature 97.8 96.4-99.1 Normal (applies to 97.8 [degF] [facility] [degF] DegF non-numeric - Arturo results) [facility] Oxygen therapy [facility]th [Minimum Data - House Set] [facility] Respiratory rate 18 br/min 14-20 Normal (applies to 18 br/min [facility] br/min non-numeric - Arturo results) [facility] Mean blood 91 mm[Hg] 91 mm[Hg] [facility] pressure by [facility] Daily Weight 60.8 kg 60.8 kg [facility] Body height 155 cm 155 cm [facility] Rea Body Weight 47.7 kg 47.7 kg [facility] Daily Weight 60.3 kg 60.3 kg [facility] Usual Weight 67.2 kg 67.2 kg [facility] Body mass index 25.1 kg/m2 25.1 kg/m2 [facility] (BMI) [Ratio] [facility] Rea Body Weight 47.7 kg 47.7 kg [facility] Usual Weight 67.2 kg 67.2 kg [facility] Body height 155 cm 155 cm [facility] Body mass index 24.77 24.77 kg/m2 [facility] (BMI) [Ratio] kg/m2 [facility] Body weight 61.5 kg 61.5 kg [facility] Body height 155 cm 155 cm [facility] Inhaled oxygen 2 L/min 2 L/min [facility] alth flow rate [facility] Inhaled oxygen 2 L/min 2 L/min [facility] alth flow rate [facility] Body temperature 98.9 97.9-100.6 Normal (applies to 98.9 [degF] [facility] - Temporal artery [degF] DegF non-numeric - Antoinette ar results) [facility] Body temperature 99.0 97.9-100.6 Normal (applies to 99.0 [degF] [facility] - Temporal artery [degF] DegF non-numeric - Antoinette ar results) [facility] Body mass index 22.52 22.52 kg/m2 [facility] (BMI) [Ratio] kg/m2 [facility] Body weight 61.3 kg 61.3 kg [facility] Measured - [facility] Body mass index 22.52 22.52 kg/m2 [facility] (BMI) [Ratio] kg/m2 - [facility] Body temperature 97.9 97.9 [degF] eCW3 ([facility] [degF] [facility]) Systolic blood 120 mm[Hg] 120 mm[Hg] eCW3 ([facility]) Diastolic blood 78 mm[Hg] 78 mm[Hg] eCW3 ([facility]) Body height 62 [in_i] 62 [in_i] eCW3 ([facility]) Body weight 136 136 [lb_av] eCW3 ([place] [lb_av] [facility]) Body mass index 24.87 24.87 kg/m2 [facility]/m2 [facility]) Oral temperature 97.4 96.4-99.1 Normal (applies to 97.4 [degF] [facility] [degF] DegF non-numeric - House results) [facility] Respiratory rate 18 br/min 14-20 Normal (applies to 18 br/min [facility] Health br/min non-numeric - Arturo results) [facility] Systolic blood 136 mm[Hg] 90-130 Above high normal 136 mm[Hg] [facility] pressure mmHg - [facility] Diastolic blood 89 mm[Hg] 60-90 mmHg Normal (applies to 89 mm[Hg] [facility] pressure non-numeric - House results) [facility] Heart rate 76 bpm 60-100 bpm Normal (applies to 76 bpm [facility] non-numeric - House results) [facility] Oxygen saturation 98 % 94-100 % Normal (applies to 98 % [facility] in Blood non-numeric - Arturo Postductal by results) [facility] Mean blood 105 mm[Hg] 105 mm[Hg] [facility] Health pressure by - Arturo Noninvasive [facility] Oxygen therapy [facility] [Minimum Data - House Set] [facility] Body mass index 24.97 24.97 kg/m2 [facility] (BMI) [Ratio] kg/m2 [facility] Body weight 60 kg 60 kg [facility] Measured [facility] Body height 155 cm 155 cm [facility] Body mass index 24.97 24.97 kg/m2 [facility] (BMI) [Ratio] kg/m2 [facility] Oxygen saturation 96 % 94-100 % Normal (applies to 96 % [facility] in Blood non-numeric - House Postductal by results) [facility] Oral temperature 98 [degF] 96.4-99.1 Normal (applies to 98 [degF] [facility] DegF non-numeric - House results) [facility] Oxygen therapy [facility] [Minimum Data - House Set] [facility] Systolic blood 166 mm[Hg] 90-130 Above high normal 166 mm[Hg] [facility] pressure mmHg - [facility] Diastolic blood 80 mm[Hg] 60-90 mmHg Normal (applies to 80 mm[Hg] [facility] pressure non-numeric - Arturo results) [facility] Respiratory rate 16 br/min 14-20 Normal (applies to 16 br/min [facility] br/min non-numeric - House results) [facility] Heart rate 87 bpm 60-100 bpm Normal (applies to 87 bpm [facility] non-numeric - Arturo results) [facility] Heart rate 74 bpm 60-100 bpm Normal (applies to 74 bpm [facility] non-numeric - Arturo results) [facility] Respiratory rate 20 br/min 14-20 Normal (applies to 20 br/min [facility] br/min non-numeric - Arturo results) [facility] Oxygen saturation 99 % 94-100 % Normal (applies to 99 % [facility] in Blood non-numeric - House Postductal by results) [facility] nt Oral temperature 98.0 96.4-99.1 Normal (applies to 98.0 [degF] [facility] [degF] DegF non-numeric - Arturo results) [facility] Systolic blood 129 mm[Hg] 90-130 Normal (applies to 129 mm[Hg] [facility] pressure mmHg non-numeric - House results) [facility] Diastolic blood 77 mm[Hg] 60-90 mmHg Normal (applies to 77 mm[Hg] [facility] pressure non-numeric - Arturo results) [facility] Heart rate 74 bpm 60-100 bpm Normal (applies to 74 bpm [facility] non-numeric - House results) [facility] Mean blood 94 mm[Hg] 94 mm[Hg] [facility] Health pressure by - Arturo Noninvasive [facility] Oxygen saturation 97 % 94-100 % Normal (applies to 97 % [facility] in Blood non-numeric - House Postductal by results) [facility] nter Body weight 62 kg 62 kg [facility] Healt h Measured - House [facility] Body mass index 25.81 25.81 kg/m2 [facility] Health (BMI) [Ratio] kg/m2 - House [facility] Heart rate 88 bpm 60-100 bpm Normal (applies to [address] [facility] e Health Peripheral artery non-numeric - Antoinette ar by palpation results) [facility] Systolic blood 149 mm[Hg] 90-130 Above high normal 149 mm[Hg] [facility] pressure mmHg - Arturo [facility] Diastolic blood 79 mm[Hg] 60-90 mmHg Normal (applies to 79 mm[Hg] [facility] pressure non-numeric - Arturo results) [facility] Oxygen therapy [facility] [Minimum Data - House Set] [facility] Oxygen saturation 98 % 94-100 % Normal (applies to 98 % [facility] in Blood non-numeric - House Postductal by results) [facility] Body mass index 25.81 25.81 kg/m2 [facility] (BMI) [Ratio] kg/m2 [facility] Body height 155 cm 155 cm [facility] Healt h [facility] Oral temperature 97.9 96.4-99.1 Normal (applies to 97.9 [degF] [facility] [degF] DegF non-numeric - Arturo results) [facility] Respiratory rate 28 br/min 14-20 Above high normal 28 br/min [facility] br/min [facility] Patient Treatment Plan of Care Planned Activity Planned Date Details Description Data Source (s) No data available for this [facility] No data available for this [facility] No data available for this [facility] No data available for this [facility] No data available for this [facility] No data available for this [facility] No data available [facility] this [facility] No data available for this [facility] No data available for this [facility] No data available for this [facility] No data available [facility] this [facility] No data available [facility] this [facility] No data available for this [facility] No data available for this [facility] No data available for this [facility] No data available [facility] this [facility] No data available for this [facility] No data available [facility] this [facility] No data available for this [facility] No data available for this [facility] No data available for this [facility] No data available for this [facility] No data available for this [facility] No data available for this [facility] No data available for this [facility] No data available for this [facility] No data available for this [facility] No data available for this [facility] No data available for this [facility] No data available for this [facility] Prednisone 20 MG Oral Tablet 03/14/2020 [facility] 01:35:56 PM EDT System Ondansetron 4 MG Oral Tablet 03/14/2020 [facility] [Zofran] 01:23:00 PM EDT System Prednisone 20 MG Oral Tablet 03/14/2020 [facility] 01:21:09 PM EDT System 24 HR Diltiazem Hydrochloride 03/14/2020 [facility] 360 MG Extended Release Oral 01:11:05 PM EDT System Capsule buspirone hydrochloride 15 MG 03/14/2020 [facility] Oral Tablet 01:10:15 PM EDT System Loratadine 1 MG/ML Oral 02/26/2020 [facility] - Solution 05:24:00 AM EDT [facility] potassium chloride 20 mEq/15 02/26/2020 [facility] - mL oral liquid 05:24:00 AM EDT [facility] Diltiazem Hydrochloride 120 02/25/2020 [facility] - MG Oral Tablet 12:10:00 PM EDT [facility] pantoprazole 40 MG Delayed 02/24/2020 [facility] - Release Oral Tablet 04:50:00 PM EDT [facility] aspirin 02/20/2020 [facility] - 05:24:00 PM EDT [facility] nitroglycerin 0.6 mg/hr 02/20/2020 [facility] - transdermal film, extended 05:23:00 PM EDT [facility] Lorazepam 1 MG Oral Tablet [facility]20[facility]2020 [facility] - 05:22:00 PM EDT [facility] Ondansetron 4 MG 02[facility]20[facility] Oral Tablet 05:22:00 PM EDT [facility] Alprazolam 0.25 MG Oral 02/19/2020 [facility] Health - Tablet 03:56:00 PM EDT [facility] Centrum oral liquid 02/15/2020 [facility] - 06:54:00 AM EDT [facility] metoclopramide 02/15/2020 [facility] Healt h - 06:54:00 AM EDT [facility] simvastatin 02/15/2020 [facility] - 06:54:00 AM EDT [facility] Pantoprazole 02/15/2020 [facility] - 06:54:00 AM EDT [facility] Diazepam 2 MG Oral Tablet 02/11/2020 [facility] - 09:05:00 AM EDT [facility] Losartan Potassium 25 MG Oral 02/07/2020 [facility] Health - Tablet 03:36:00 PM EDT [facility] Propranolol Hydrochloride 10 02/07/2020 [facility] - MG Oral Tablet 02:40:00 PM EDT [facility] lansoprazole 30 MG 02/06/2020 [facility] ealth - Disintegrating Oral Tablet 06:18:00 PM EDT [facility] Ondansetron 4 MG 02/06/2020 [facility] Hea lth - Disintegrating Oral Tablet 06:16:00 PM EDT [facility] Diazepam 2 MG Oral Tablet 02/02/2020 [facility] - 04:23:00 PM EDT [facility] Sucralfate 100 MG/ML Oral 02/01/2020 [facility] - Suspension 03:53:00 AM EDT [facility] Losartan Potassium 25 MG Oral 01/23/2020 [facility] - Tablet 02:01:00 PM EDT [facility] Cholecalciferol 2000 UNT Oral 01/23/2020 [facility] - Tablet 09:02:00 AM EDT [facility] Methocarbamol 750 MG Oral 10/08/2019 [facility] - Tablet 05:20:00 AM EST [facility] Ibuprofen 600 MG Oral Tablet 10/08/2019 [facility] - 05:19:00 AM EST [facility] Lidoderm 5% topical film 10/08/2019 [facility] - 05:19:00 AM EST [facility] Vitamin D (Ergocalciferol) 07/13/2019 e CW3 ([place] [id number] UNIT 12:00:00 AM EDT Health Care) buspirone hydrochloride 15 MG 04/01/2019 [facility] - Oral Tablet 03:21:00 PM EDT [facility] simvastatin 04/01/2019 [facility] - 03:21:00 PM EDT [facility] Diphenhydramine Hydrochloride 04/01/2019 [facility] - 25 MG Oral Tablet 03:21:00 PM EDT [facility] lansoprazole 30 mg oral 04/01/2019 [facility] delayed release capsule 03:21:00 PM EDT [facility] Ventolin HFA 03/11/2019 [facility] - 09:59:00 AM EDT [facility] aspirin 03/11/2019 [facility] - 09:59:00 AM EDT [facility] POLYETHYLENE GLYCOL 3350 142 12/08/2018 [facility] - MG/ML Oral Solution 10:26:00 AM EST [facility] Simethicone 66.7 MG/ML Oral 12/08/2018 [facility] - Suspension 10:26:00 AM EST [facility] pantoprazole 40 MG Oral 12/08/2018 [facility] - Granules 08:55:00 AM [facility] Metoclopramide 10 MG Oral 12/08/2018 [facility] Health - Tablet 08:55:00 AM [facility] Blood Pressure Monitor - 11/25/2018 eCW 3 ([place] 12:00:00 AM [facility] Health Care) Nebulizer - 11/25/2018 eCW3 ([place] 12:00:00 AM [facility] Health Care) Prednisone 20 MG Oral Tablet 11/21/2018 [facility] - 09:17:00 AM [facility] Diphenhydramine Hydrochloride 03/05/2018 eCW3 ([place] 25 MG Oral Capsule 12:00:00 AM [facility]) Prednisone 50 MG Oral Tablet 01/10/2018 [facility] - 08:46:00 PM EDT [facility] Albuterol 0.83 MG/ML Inhalant 09/22/2017 [facility] - Solution 02:11:00 PM [facility] 24 HR Diltiazem Hydrochloride 09/22/2017 [facility] Tattva - 360 MG Extended Release Oral 02:11:00 PM [facility] lansoprazole 30 mg oral 09/22/2017 [facility] - delayed release capsule 02:11:00 PM [facility] nitroglycerin 0.6 mg/hr 09/22/2017 [facility] - transdermal film, extended 02:10:00 PM [facility] buspirone hydrochloride 15 MG 09/08/2017 [facility] Health Oral Tablet 12:08:36 PM EST System BuSpar 09/08/2017 [facility] 12:07:52 PM EST System Ibuprofen 600 MG Oral Tablet 09/08/2017 [facility] 12:07:42 PM EST System Prednisone 20 MG Oral Tablet 09/07/2017 [facility] [Deltasone] 09:23:08 PM EST System Azithromycin 250 MG Oral 07/17/2017 [facility] Tablet [Zithromax] 10:15:37 AM EDT System 24 HR Nitroglycerin 0.6 MG/HR 07/17/2017 [facility] Transdermal Patch [Nitro-Dur] 10:12:05 AM EDT System lansoprazole 30 MG Delayed 07/17/2017 [facility] Release Oral Capsule 10:11:55 AM EDT Syst em 24 HR Diltiazem Hydrochloride 07/17/2017 [facility] 360 MG Extended Release Oral 10:11:44 AM EDT System Capsule Diphenhydramine Hydrochloride 07/17/2017 [facility] 25 MG Oral Capsule [Benadryl] 10:11:25 AM EDT System Aspirin 81 MG Delayed Release 07/17/2017 [facility] Oral Tablet 10:11:17 AM EDT System Simvastatin 40 MG Oral Tablet 07/17/2017 [facility] Health [Zocor] 10:11:05 AM EDT System Ventolin HFA 90 mcg/inh 07/17/2017 [facility] 10:10:35 AM EDT System Albuterol 0.83 MG/ML Inhalant 07/07/2017 [facility] Solution 10:03:08 AM EDT System montelukast 10 MG Oral Tablet 07/07/2017 [facility] Health 09:51:14 AM EDT System Azithromycin 500 MG Oral 07/07/2017 [facility] [employer] Tablet 09:50:18 AM EDT System Codeine Phosphate 2 MG/ML / 06/26/2017 [facility] Promethazine Hydrochloride 10:45:12 AM EDT System 1.25 MG/ML Oral Solution benzonatate 100 MG Oral 06/26/2017 [facility] [employer] Caps[facility] 10:08:39 AM EDT System Azithromycin 40 MG/ML Oral 06/26/2017 [facility] Sus[facility] 10:04:30 AM EDT System Bisacodyl 5 MG Delayed 05/21/2017 [facility] Release Oral Tablet 11:27:30 AM EDT Syste m POLYETHYLENE GLYCOL 3350 59 05/21/2017 [facility] MG/ML / Potassium Chloride 11:10:34 AM EDT System 0.01 MEQ/ML / Sodium Bicarbonate 0.02 MEQ/ML / Sodium Chloride 0.025 MEQ/ML / sodium sulfate 0.04 MEQ/ML Oral Solution hydrocortisone acetate 25 MG 05/14/2017 [facility] Rectal Suppository [Anusol 12:53:32 PM EDT System HC] 24 HR Nitroglycerin 0.6 MG/HR 05/14/2017 [facility] Transdermal Patch 12:03:48 PM EDT System Hydrocortisone 25 MG/ML 05/14/2017 [facility] Topical Cream 11:53:42 AM EDT System Docusate Sodium 10 MG/ML Oral 05/14/2017 [facility] Suspension 11:52:26 AM EDT System Azithromycin 04/17/2017 [facility]al th 09:42:54 AM EDT System Acetaminophen 325 MG Oral 04/04/2017 [facility] Tablet [Tylenol] 04:46:11 PM EDT System doxycycline hyclate 100 MG 04/04/2017 [facility] Oral Capsule 04:44:32 PM EDT System Ibuprofen 400 MG Oral Tablet 03/05/2017 [facility] [Ibu] 11:36:15 AM EDT System albuterol CFC free 90 mcg/inh 03/05/2017 [facility] inhalation aerosol 11:36:02 AM EDT System Cyclobenzaprine hydrochloride 02/25/2017 [facility] 10 MG Oral Tablet 08:43:59 AM EDT System Ibuprofen 400 MG Oral Tablet 01/30/2017 [facility] Health 02:51:14 PM EDT System Diphenhydramine Hydrochloride 01/30/2017 [facility] 50 MG Oral Tablet 02:51:07 PM EDT System Albuterol 0.833 MG/ML / 01/30/2017 [facility] Ipratropium [place] 0.167 02:50:27 PM EDT System MG/ML Inhalant Solution Meclizine Hydrochloride 25 MG 11/27/2016 [facility] Oral Tablet 05:14:06 PM EST System Cholecalciferol 400 UNT/ML 11/27/2016 [facility] Oral Solution 05:13:57 PM EST System Multivitamin preparation 11/27/2016 [facility] 05:13:48 PM EST System Calcium Carbonate 1250 MG 11/27/2016 [facility] Oral Tablet 05:09:08 PM EST System Budesonide 0.16 MG/ACTUAT / 11/27/2016 [facility] formoterol fumarate 0.0045 05:08:53 PM EST System MG/ACTUAT Metered Dose Inhaler lansoprazole 30 MG Delayed 11/27/2016 [facility] Release Oral Capsule 05:08:43 PM EST Syst em Simvastatin 40 MG Oral Tablet 11/27/2016 [facility] 05:08:36 PM EST System 24 HR Nitroglycerin 0.6 MG/HR 11/27/2016 [facility] Transdermal Patch [Minitran] 05:08:26 PM EST System 24 HR Diltiazem Hydrochloride 11/27/2016 [facility] 360 MG Extended Release Oral 05:08:16 PM EST System Capsule [Cardizem] Cholecalciferol 27766 UNT/ML 11/27/2016 [facility] Oral Solution 05:08:04 PM EST System Multi-Delyn oral liquid 11/27/2016 [facility] 05:07:57 PM EST System fluticasone 50 mcg/inh nasal 11/27/2016 [facility] spray 05:03:53 PM EST System Azithromycin 500 MG Oral 11/27/[address] [facility] Tablet 05:03:07 PM EST System Azithromycin 500 MG Oral 11/07/2016 [facility] Tablet 02:39:31 PM EST System Levofloxacin 750 MG Oral 10/16/2016 [facility] Tablet [Levaquin] 03:33:51 PM EST System buspirone hydrochloride 15 MG 10/16/2016 [facility] Oral Tablet 03:25:31 PM EST System 60 ACTUAT Fluticasone 10/16/2016 [facility] propionate 0.25 MG/ACTUAT / 03:25:01 PM EST System salmeterol 0.05 MG/ACTUAT Dry Powder Inhaler Meclizine Hydrochloride 12.5 10/16/2016 [facility] MG Oral Tablet 03:24:09 PM EST System Sodium Chloride 0.111 MEQ/ML 10/16/2016 [facility] Nasal [place] [Deep Sea] 03:23:34 PM EST Sy stem Dextromethorphan Hydrobromide 09/04/2016 [facility] 2 MG/ML / Guaifenesin 20 02:07:40 PM EST System MG/ML Oral Solution lansoprazole 30 MG Delayed 09/04/2016 [facility] Release Oral Capsule 02:03:31 PM EST Syst em Meclizine Hydrochloride 25 MG 09/04/2016 [facility] Oral Tablet 02:01:21 PM EST System Zithromax Z-Phoenix 250 mg oral 09/04/2016 [facility] tablet 01:57:52 PM EST System lansoprazole 30 MG 08/18/2016 [facility] Oral Tablet 02:55:50 PM EST System 24 HR Diltiazem Hydrochloride 07/21/2016 [facility] 360 MG Extended Release Oral 12:14:36 PM EDT System Tablet [Cardizem] buspirone hydrochloride 15 MG 07/21/2016 [facility] Oral Tablet 12:14:02 PM EDT System 24 HR Nitroglycerin 0.2 MG/HR 07/21/2016 [facility] Trans[facility] Patch 12:13:54 PM EDT System Diphenhydramine Hydrochloride 07/21/2016 [facility] 2.5 MG/ML Oral Solution 12:13:39 PM EDT S ystem Dextromethorphan Hydrobromide 07/21/2016 [facility] 2 MG/ML / Guaifenesin 20 12:09:20 PM EDT System MG/ML Oral Solution Azithromycin 250 MG Oral 07/21/2016 [facility] Tablet 12:08:19 PM EDT System Flonase 50 mcg/inh nasal 04/11/2016 [facility] spray 11:31:04 AM EDT System Ventolin HFA 90 mcg[facility]inh [facility]/31[facility] 02:19[facility]10 PM EDT System Diphenhydramine Hydrochloride 03/31/2016 [facility] 25 MG Oral Tablet [Benadryl] 02:18:53 PM EDT System buspirone hydrochloride 15 MG 03/31/2016 [facility] Oral Tablet 02:18:39 PM EDT System 24 HR Nitroglycerin 0.6 MG/HR 03/31/2016 [facility] Transdermal Patch 02:18:32 PM EDT System Aspirin 81 MG Oral Tablet 03/31/2016 [facility] 02:17:53 PM EDT System Meclizine Hydrochloride 25 MG 02/28/2016 [facility] Oral Tablet 11:22:14 AM EDT System Sodium Chloride 0.111 MEQ/ML 12/31/2015 [facility] Nasal [place] [Deep Sea] 12:54:54 PM EDT Sy stem Prednisone 20 MG Oral Tablet 12/31/2015 [facility] 12:54:20 PM EDT System Loratadine 10 MG Oral Tablet 12/31/2015 [facility] [Alavert] 12:53:40 PM EDT System Docusate Sodium 100 MG Oral 12/24/2015 [facility] Health Capsule [Colace] 10:04:03 AM EDT System Meclizine Hydrochloride 25 MG 12/24/2015 [facility] Oral Tablet 10:03:43 AM EDT System Diphenhydramine Hydrochloride 12/24/2015 [facility] 25 MG Oral Tablet [Benadryl] 10:03:05 AM EDT System Hydralazine Hydrochloride 10 12/14/2015 [facility] MG Oral Tablet 11:35:39 AM EST System Simvastatin 40 MG Oral Tablet 12/14/2015 [facility] Health 11:35:11 AM EST System Diltiazem 12/14/2015 [facility] th 11:35:05 AM EST System Albuterol 0.83 MG/ML Inhalant 12/14/2015 [facility] Health Solution 11:34:48 AM EST System Dextromethorphan Hydrobromide 11/28/2015 [facility] Tattva 1 MG/ML / Guaifenesin 20 12:04:28 PM EST System MG/ML Oral Solution Zithromax Z-Phoenix 250 mg oral 11/28/2015 [facility] Health tablet 11:52:19 AM EST System benzonatate 200 MG Oral 11/04/2015 [facility] Tattva Capsule 06:24:53 PM EST System Azithromycin 500 MG Oral 11/04/2015 [facility] Tattva Tablet 06:24:17 PM EST System Hydrochlorothiazide 12.5 MG 10/29/2015 [facility] T[facility] Oral Tablet 03:08:11 PM EST System Azithromycin 250 MG Oral 10/17/2015 [facility] Health Tablet 02:28:10 PM EST System Calcium Carbonate 500 MG 10/16/2015 [facility] Tattva Chewable Tablet 11:55:25 AM EST System Cholecalciferol 400 UNT/ML 10/16/2015 [facility] Oral Solution 11:54:53 AM EST System pantoprazole 40 MG Delayed 10/16/2015 [facility] Release Oral Tablet 11:54:10 AM EST Syste m Albuterol 0.833 MG/ML / 10/15/2015 [facility] Ipratropium [place] 0.167 12:38:14 PM EST System MG/ML Inhalant Solution Psyllium 10/15/2015 [facility] th 12:00:00 AM EST System Ondansetron 8 MG 10/15/2015 [facility] Disintegrating Oral Tablet 12:00:00 AM EST System Hydrochlorothiazide 12.5 MG 10/15/2015 [facility] Health Oral Capsule 12:00:00 AM EST System Amoxicillin 500 MG / 10/15/2015 [facility] Clavulanate 125 MG Oral 12:00:00 AM EST S ystem Tablet Clonazepam 0.5 MG Oral Tablet 10/15/2015 [facility] 12:00:00 AM EST System Docusate Sodium 50 MG / 10/15/2015 [facility] sennosides, CARE HOME 8.6 MG Oral 12:00:00 AM EST System Tablet Docusate Sodium 10 MG/ML Oral 10/05/2015 [facility] Suspension 07:10:40 PM EST System Sodium Chloride Nasal Product 09/06/2015 [facility] 12:28:25 PM EST System Ibuprofen 600 MG Oral Tablet 09/06/2015 [facility] Tattva [Ibu] 12:25:05 PM EST System lansoprazole 30 MG Delayed 09/06/2015 [facility] Release Oral Capsule 12:16:54 PM EST Syst em Diphenhydramine Hydrochloride 09/06/2015 [facility] T[facility]va 25 MG Oral Tablet [Benadryl] 12:13:04 PM EST System 200 ACTUAT Albuterol 0.09 09/06/2015 [facility] MG/ACTUAT Metered Dose 12:05:37 PM EST Sy stem Inhaler [ProAir] 24 HR Nitroglycerin 0.2 MG/HR 09/06/2015 [facility] Transdermal Patch 12:05:30 PM EST System Spironolactone 25 MG Oral 09/06/2015 [facility] Tablet 12:05:17 PM EST System 24 HR Diltiazem Hydrochloride 08/27/2015 [facility] Health 360 MG Extended Release Oral 02:11:12 PM EST System Capsule Meclizine Hydrochloride 25 MG 08/15/2015 [facility] Oral Tablet 11:47:55 AM EST System Sodium Chloride 0.111 MEQ/ML 08/15/2015 [facility] Nasal Solution [Imnaha Saline 11:21:09 AM EST System Nasal] 24 HR metoprolol succinate 25 08/15/2015 [facility] Health MG Extended Release Oral 11:13:38 AM EST System Tablet Nasonex 50 mcg/inh nasal 08/15/2015 [facility] spray 11:08:34 AM EST System Meclizine Hydrochloride 25 MG 08/10/2015 [facility] Oral Tablet 07:56:10 PM EST System Acetaminophen 300 MG / 07/31/2015 [facility] Codeine Phosphate 30 MG Oral 03:03:43 PM EDT System Tablet Amoxicillin 875 MG / 07/31/2015 [facility] T[facility] Clavulanate 125 MG Oral 03:03:16 PM EDT S ystem Tablet Ventolin HFA 90 mcg/inh 07/13/2015 [facility] Tattva inhalation aerosol 11:04:01 AM EDT System 24 HR Diltiazem Hydrochloride 07/13/2015 [facility] 360 MG Extended Release Oral 11:01:29 AM EDT System Capsule [Cardizem] Diphenhydramine Hydrochloride 07/13/2015 [facility] 25 MG Oral Tablet 10:40:28 AM EDT System Calcium Carbonate 1250 MG / 07/13/2015 [facility] Cholecalciferol 0.01 MG 10:38:35 AM EDT S ystem Chewable Tablet buspirone hydrochloride 15 MG 07/13/2015 [facility] Health Oral Tablet 10:36:21 AM EDT System Erythromycin 500 MG Oral 07/13/2015 [facility] Tablet 10:34:32 AM EDT System Claritin-D 24 Hour 07/13/2015 [facility] 10:34:00 AM EDT System Simvastatin 40 MG Oral Tablet 07/13/2015 [facility] 10:33:52 AM EDT System lansoprazole 30 MG Delayed 07/13/2015 [facility] Release Oral Capsule 10:33:44 AM EDT Syst em POLYETHYLENE GLYCOL 3350 142 05/01/2015 [facility] MG/ML Oral Solution 03:26:04 PM EDT Syste m [ClearLax] POLYETHYLENE GLYCOL 3350 142 05/01/2015 [facility] MG/ML Oral Solution 03:25:09 PM EDT Syste m Erythromycin 500 MG Oral 04/10/2015 [facility] Tablet 10:04:45 AM EDT System Azithromycin 500 MG Oral 04/05/2015 [facility] Tablet 06:47:17 PM EDT System Sodium Chloride 0.154 MEQ/ML 04/05/2015 [facility] Nasal [place] 06:22:53 PM EDT System Oxymetazoline hydrochloride 04/05/2015 [facility] 0.5 MG/ML Nasal [place] [Afrin] 06:20:10 PM EDT System Azithromycin 250 MG Oral 04/05/2015 [facility] Tablet 06:17:35 PM EDT System Azithromycin 500 MG Oral 04/05/2015 [facility] Tablet 06:14:00 PM EDT System Diphenhydramine Hydrochloride 03/29/2015 [facility] 50 MG Oral Tablet 11:13:40 AM EDT System Flonase 50 mcg/inh nasal 03/29/2015 [facility] spray 11:11:15 AM EDT System Docusate Sodium 10 MG/ML Oral 03/09/2015 [facility] Health Suspension 09:53:57 AM EDT System Albuterol 0.83 MG/ML Inhalant 03/09/2015 [facility] Solution 09:50:15 AM EDT System Spironolactone 50 MG Oral 03/09/2015 [facility] 09:47[facility]49 AM EDT System Docusate Sodium 50 MG / 03/09/2015 [facility] Tattva sennosides, CARE HOME 8.6 MG Oral 09:39:54 AM EDT System Tablet buspirone hydrochloride 15 MG 03/09/2015 [facility] Oral Tablet 09:39:45 AM EDT System Metronidazole 500 MG Oral 01/08/2015 [facility] Tablet [Flagyl] 02:17:26 PM EDT System Azithromycin 500 MG Oral 01/08/2015 [facility] Tablet 02:16:41 PM EDT System Flonase 50 mcg/inh nasal 01/06/2015 [facility] spray 07:14:14 AM EDT System Prednisone 50 MG Oral Tablet 01/06/2015 [facility] Health 07:13:07 AM EDT System Erythromycin 500 MG Oral 01/06/2015 [facility] Tablet 06:43:22 AM EDT System Ibuprofen 600 MG Oral Tablet 01/06/2015 [facility] Tatt[facility] [Ibu] 06:42:04 AM EDT System Clindamycin 150 MG [facility] 09:41:27 AM EST System Clindamycin 300 MG Oral 11/24/2014 [facility] Capsule 09:40:27 AM EST System Prednisone 50 MG Oral Tablet 11/24/2014 [facility] 09:40:08 AM EST System Naproxen 500 MG Oral Tablet 11/24/2014 [facility] 09:39:38 AM EST System Metronidazole Topical Product 11/16/2014 [facility] 01:30:09 PM EST System Spironolactone 50 MG Oral 11/10/2014 [facility] Tablet 03:48:35 PM EST System 24 HR Nitroglycerin 0.2 MG/HR 11/10/2014 [facility] Transdermal Patch 03:09:27 PM EST System Ibuprofen 600 MG Oral Tablet 11/10/2014 [facility] [Ibu] 03:08:36 PM EST System Diphenhydramine Hydrochloride 11/10/2014 [facility] 50 MG Oral Tablet 03:06:20 PM EST System buspirone hydrochloride 15 MG 11/10/2014 [facility] Oral Tablet 03:05:25 PM EST System Aspirin 11/10/2014 [facility] 03:05:08 PM EST System Spironolactone 50 MG Oral [facility]/10/[facility] [Aldactone] 03:04:49 PM EST System albuterol CFC free 90 mcg/inh 11/10/2014 [facility] inhalation aerosol 03:04:26 PM EST System Calcium Carbonate 1250 MG / 11/10/2014 [facility] Cholecalciferol 200 UNT Oral 03:04:14 PM EST System Tablet Calcium Carbonate 1250 MG / 08/30/2014 [facility] Cholecalciferol 200 UNT Oral 11:41:55 AM EST System Tablet Ibuprofen 600 MG Oral Tablet 08/30/2014 [facility] [Ibu] 11:37:24 AM EST System albuterol CFC free 90 mcg/inh 08/30/2014 [facility] inhalation aerosol 11:33:50 AM EST System lansoprazole 30 MG Delayed 08/30/2014 [facility] Release Oral Capsule 11:33:04 AM EST Syst em Simvastatin 40 MG Oral Tablet 08/30/2014 [facility] 11:31:54 AM EST System Diphenhydramine Hydrochloride 08/30/2014 [facility] 50 MG Oral Tablet 11:30:06 AM EST System Aspirin 08/30/2014 [facility] 11:27:41 AM EST System Spironolactone 50 MG Oral 08/30/2014 [facility] Tablet [Aldactone] 11:24:03 AM EST System 24 HR Diltiazem Hydrochloride 08/30/2014 [facility] 360 MG Extended Release Oral 11:23:38 AM EST System Tablet Codeine Phosphate 2 MG/ML / 10/24/2013 [facility] Guaifenesin 40 MG/ML Oral 12:04:50 PM EST System Solution Azithromycin 500 MG Oral 10/24/2013 [facility] Tablet 12:01:56 PM EST System Erythromycin 500 MG Delayed 07/03/2013 [facility] Health Release Oral Tablet [Justice-Tab] 11:02:45 AM EDT System Ibuprofen 600 MG Oral Tablet 03/28/2013 [facility] 11:28:12 AM EDT System Simvastatin 40 MG Oral Tablet [facility] Motrin [facility] System BuSpar [facility] System Benadryl [facility] System lansoprazole 30 MG Delayed [facility] Release Oral Capsule System [Prevacid] 24 HR Diltiazem Hydrochloride eCW3 ([facility] 360 MG Extended Release Oral [facility]) Capsule Albuterol 0.83 MG/ML Inhalant eCW3 ([facility]) Ibuprofen 600 MG Oral Tablet eCW3 ([facility]) Simethicone 66.7 MG/ML Oral eCW3 ([facility]) BuSpar 15 MG eCW3 ([facility])
[2020-07-11 02:49] VITALS: BP 145/92; PULSE 90; TEMP 98.7; BMI 20.2
--- NOTE | 2020-07-11 03:03 | PDOC ---
History of Present Illness - General Chief Complaint: Blood Pressure Problem Stated Complaint: BLOOD PRESSURE PROBLEM Time Seen by Provider: 07/11/20 02:31 Past History - Medical History Allergies/Adverse Reactions: Allergies Allergy/AdvReac Type Severity Reaction Status Date / Time amlodipine [From Norvasc] Allergy Verified 07/11/20 02:49 amoxicillin Allergy Verified 07/11/20 02:49 atorvastatin [From Lipitor] Allergy Verified 07/11/20 02:49 latex Allergy Verified 07/11/20 02:49 omeprazole Allergy Verified 07/11/20 02:49 Penicillins Allergy Verified 07/11/20 02:49 prochlorperazine Allergy Verified 07/11/20 02:49 [From Compazine] propranolol Allergy Verified 07/11/20 02:49 shellfish derived Allergy Verified 07/11/20 02:49 Sulfa (Sulfonamide Allergy Verified 07/11/20 02:49 Antibiotics) lactose AdvReac Verified 07/11/20 02:49 Home Medications: Ambulatory Orders Ondansetron Oral Solution [Zofran Oral Solution 4 MG/5 ML -] 4 mg PO TID PRN #50 ml 05/04/20 Acetaminophen [Tylenol .Regular Strength -] 650 mg PO Q4H PRN tablet 07/01/20 Famotidine [Pepcid] 40 mg PO DAILY #1 bottle 07/01/20 Ondansetron Oral Solution [Zofran Oral Solution -] 4 mg PO Q6H #1 bottle 07/01/20 Asthma: Yes Cardiac Disorders: Yes (angina) COPD: No GI Disorders: Yes (GERD) HTN: Yes Hypercholesterolemia: Yes Psychiatric Problems: Yes (Anxiety) Thyroid Disease: Yes (thyroid nodules) - Immunization History Immunization Up to Date: Yes - Psycho-Social/Smoking History Smoking History: Never smoked Have you smoked in the past 12 months: No Information on smoking cessation initiated: No - Substance Abuse Hx (Audit-C & DAST Scrn) How often the patient has a drink containing alcohol: Never Score: In Men: 4 or > Positive; In Women: 3 or > Positive: 0 Screen Result (Pos requires Nsg. Audit-10AR): Negative In the last yr the pt used illegal drug/Rx for NonMed reason: No Score: Yes response is considered Positive: 0 Screen Result (Positive result requires Nsg. DAST-10): Negative *Physical Exam - Vital Signs Last Vital Signs Temp Pulse Resp BP Pulse Ox 98.7 F 90 17 145/92 100 07/11/20 02:37 07/11/20 02:37 07/11/20 02:37 07/11/20 02:37 07/11/20 02:37 ED Treatment Course - LABORATORY CBC & Chemistry Diagram: 07/11/20 03:26 07/11/20 03:26 Medical Decision Making - Medical Decision Making 07/11/20 02:58 70yo F hx GERD, throat tumor s/p removal years ago, thyroid nodule and thyroid issue (per pt hyperthyroidism diagnosed approx 1mo ago, tested due to 40lb weight loss, prescribed unknown med but not taking yet yet), HTN (no dilt x2mo due to difficulty swallowing), and asthma 1am woke up to take statin. Dizziness and blurry vision, high BP 190/100, took statin and extra nitro patch, sx and BP improved within 30min. Now anxious but otherwise good. Meds: Nitro patch every morning Statin Asthma Exam thyroid big 07/11/20 04:16 labs reviewed CXR reviewed EKG reviewed Discharge Discharge - Discharge Information Problems reviewed: Yes Clinical Impression/Diagnosis: Hypertension Condition: Improved Disposition: HOME - Admission No - Follow up/Referral Referrals: [facility] [place] [facility] [place] [Provider Group] Valentin Benson MD [Staff Physician] - Zach Raya MD [Staff Physician] - - Patient Discharge Instructions Patient Printed Discharge Instructions: DI for High Blood Pressure Additional Instructions: You have been seen in the Emergency Department for your dizziness, blurry vision, and high blood pressure. Your EKG, chest X-ray, and labs, including Troponin (a heart enzyme), show no signs concerning for an emergent condition such as a heart attack or hypertensive emergency. Take your blood pressure medication as prescribed. Your thyroid enzymes are abnormal and you will need follow-up with an aircraft life support fitter. We have given you referrals to our primary care clinic, aircraft life support fitter, and integration technician - call their offices this morning to make appointments with all of them this week. Return to the Emergency Department immediately if you experience chest pain, difficulty breathing, passing out, or any other new or worsening symptom. - Post Discharge Activity
[2020-07-11 03:37] LABS: BASO % 1.5 % (0-2.0); EOS % 5.1 % (0-4.5); HEMOGLOBIN 11.1 GM/dL (10.7-15.3); LYMPH % 28.6 % (8-40); MCH 24.5 pg (25.7-33.7); MCHC 31.8 g/dl (32.0-36.0); MEAN CELL VOLUME 77.2 fl (80-96); MEAN PLT VOLUME 7.9 fl (7.5-11.1); MONO % 9.9 % (3.8-10.2); NEUT % 54.9 % (42.8-82.8); PLATELET COUNT 377 K/MM3 (134-434); RBC 4.54 M/mm3 (3.60-5.2); RDW 19.3 % (11.6-15.6); WHITE BLOOD COUNT 8.1 K/mm3 (4.0-10.0)
[2020-07-11 04:08] LABS: ALBUMIN 3.3 g/dl (3.4-5.0); ALK PHOS 108 U/L (45-117); ANION GAP 5 MMOL/L (8-16); BILIRUBIN,TOTAL 0.4 mg/dL (0.2-1); BLOOD UREA NITROGEN 15.1 mg/dL (7-18); CALCIUM 9.2 mg/dL (8.5-10.1); CHLORIDE 106 mmol/L (98-107); CO2 27 mmol/L (21-32); CREATININE 0.5 mg/dL (0.55-1.3); GLUCOSE,RANDOM 96 mg/dL (74-106); MAGNESIUM 2.2 mg/dL (1.8-2.4); SGOT/AST 14 U/L (15-37); SGPT/ALT 14 U/L (13-61); SODIUM 138 mmol/L (136-145)
--- NOTE | 2020-07-11 04:08 | PDOC ---
Attending Attestation - Resident Resident Name: Karyn Aaron - ED Attending Attestation I have performed the following: I have examined & evaluated the patient, The case was reviewed & discussed with the resident, I agree w/resident's findings & plan, Exceptions are as noted - HPI HPI: 07/11/20 04:02 70 yo F h/o HTN, HLD and asthma p/w episode of blurry vision and lightheadedness this evening. States she took her BP at home and was noted to have systolic BP in 190's. Took an extra nitro patch and 81mg of asa with resolution of symptoms within 30 minutes. Denies CP, SOB, n/v/d back pain or abdominal pain. 07/11/20 04:14 - Physicial Exam PE: 07/11/20 04:04 General: well appearing, NAD HEENT: NCAT Chest: CTAB, good air entry, no wheezes rales or rhonchi CVS: + s1 s2, RRR - Medical Decision Making 07/11/20 04:04 70 yo F with lightheadedness and blurry vision in the setting of elevated BP at home, currently without any complaints and BP improved to 145/92. Doubt ICH or TIA. EKG sinus, rate 77, normal intervals, no ischemic changes. Plan: -labs -cxr -reassess, if labs and imaging unremarkable will d/c with return precautions, recommend PMD f/u This clinical encounter is taking place during a federal and state health care emergency attributable to the novel [place] Virus pandemic. The [place] of the Department of Health and Human Services has declared, pursuant to the Public Health Service Act 319F-3 (42 U.S.C. 247d-6d), that a covered persons activities related to medical countermeasures against COVID-19 will be immune from liability under Federal and State law. 07/11/20 04:14 Discharge - Discharge Information Problems reviewed: Yes Clinical Impression/Diagnosis: Hypertension Condition: Improved Disposition: HOME - Follow up/Referral [facility] [place] [facility] [place] [Provider Group] Valentin Benson MD [Staff Physician] - Zach Raya MD [Staff Physician] - - Patient Discharge Instructions Patient Printed Discharge Instructions: DI for High Blood Pressure Additional Instructions: You have been seen in the Emergency Department for your dizziness, blurry vision, and high blood pressure. Your EKG, chest X-ray, and labs, including Troponin (a heart enzyme), show no signs concerning for an emergent condition such as a heart attack or hypertensive emergency. Take your blood pressure medication as prescribed. Your thyroid enzymes are abnormal and you will need follow-up with an before school. We have given you referrals to our primary care clinic, before school, and tongue and groove machine feeder - call their offices this morning to make appointments with all of them this week. Return to the Emergency Department immediately if you experience chest pain, difficulty breathing, passing out, or any other new or worsening symptom. - Post Discharge Activity
[2020-07-11 04:20] LABS: EPI CELLS >36 /uL (0-25.1); HYALINE CASTS 1 /uL (0-3.1); PH,URINE >= 9.0 (5.0-8.0); URINE APPEARANCE TURBID; URINE BACTERIA 302 /uL (0-1359); URINE BILIRUBIN NEGATIVE (NEGATIVE); URINE COLOR YELLOW; URINE GLUCOSE (UA) NEGATIVE (NEGATIVE); URINE KETONE NEGATIVE (NEGATIVE); URINE LEUK ESTERASE TRACE (NEGATIVE); URINE NITRITE NEGATIVE (NEGATIVE); URINE PROTEIN TRACE (NEGATIVE); URINE RBC 11 /uL (0-23.9); URINE WBC 5 /uL (0-25.8)
--- NOTE | 2020-07-11 08:46 | EKG ---
Test Reason : Blood Pressure : / mmHG Vent. Rate : 077 BPM Atrial Rate : 077 BPM P-R Int : 162 ms QRS Dur : 066 ms QT Int : 396 ms P-R-T Axes : 067 -08 023 degrees QTc Int : 448 ms NORMAL SINUS RHYTHM NORMAL ECG WHEN COMPARED WITH ECG OF 30-JUN-2020 08:01, NO SIGNIFICANT CHANGE WAS FOUND Confirmed by Merritt Rao MD ([id number]) on 07/11/2020 8:46:20 AM Referred By: Confirmed By:Merritt Rao MD
== END 2020-07-11 05:40 | disposition home or self-care (01) ==
LOC: JER 02:17
DX: I10 Essential (primary) hypertension (principal)
CPT/HCPCS: 36415; 71046-TC-FY; 80053; 81003; 82550; 83735; 84439; 84443; 84484; 85025; 93005; 93010; 99285-25

== ENCOUNTER 2020-09-04 18:44 | Inpatient (IN) | payer OTHER ==
[2020-09-04 19:04] VITALS: BMI 20.5
[2020-09-04 21:51] LABS: INR 1.11 (0.83-1.09); PROTHROMBIN TIME (PATIENT) 13.6 SEC (9.7-13.0)
[2020-09-04 21:53] LABS: ACTIVATED PTT 30.7 SECONDS (25.2-36.5)
[2020-09-04 22:00] LABS: CHLORIDE 105 mmol/L (98-107); POTASSIUM 4.9 mmol/L (3.5-5.1); SODIUM 135 mmol/L (136-145)
[2020-09-04 22:02] LABS: ALBUMIN 3.9 g/dl (3.4-5.0); ANION GAP 8 MMOL/L (8-16); CALCIUM 9.2 mg/dL (8.5-10.1); CO2 21 mmol/L (21-32); GLUCOSE,RANDOM 91 mg/dL (74-106)
[2020-09-04 22:03] LABS: BLOOD UREA NITROGEN 10.3 mg/dL (7-18)
[2020-09-04 22:06] LABS: CREATININE 0.9 mg/dL (0.55-1.3); SGOT/AST 55 U/L (15-37); SGPT/ALT 17 U/L (13-61)
[2020-09-04 22:07] LABS: BILIRUBIN,TOTAL 0.8 mg/dL (0.2-1); TOT PROT 8.3 g/dl (6.4-8.2)
[2020-09-04 22:08] LABS: ALK PHOS 124 U/L (45-117)
[2020-09-04] MEDS ORDERED: ASPIRIN 81 MG CHEWABLE TABLETS PO ONE (22:30)
[2020-09-04] MEDS ORDERED: ASPIRIN 81 MG CHEWABLE TABLETS ONE (22:56)
[2020-09-04 23:04] LABS: BASO % 0.9 % (0-2.0); HEMATOCRIT 36.8 % (32.4-45.2); HEMOGLOBIN 11.8 GM/dL (10.7-15.3); LYMPH % 28.4 % (8-40); MCH 24.6 pg (25.7-33.7); MCHC 32.1 g/dl (32.0-36.0); MEAN CELL VOLUME 76.5 fl (80-96); MEAN PLT VOLUME 8.8 fl (7.5-11.1); NEUT % 61.7 % (42.8-82.8); PLATELET COUNT 294 K/MM3 (134-434); RBC 4.81 M/mm3 (3.60-5.2); RDW 17.8 % (11.6-15.6); WHITE BLOOD COUNT 7.1 K/mm3 (4.0-10.0)
[2020-09-05] MEDS ORDERED: ALBUTEROL SO4 HFA INHALER IH PRN (01:15)
[2020-09-05] MEDS ORDERED: ONDANSETRON PO SCH (01:15)
[2020-09-05] MEDS ORDERED: ONDANSETRON 4 MG PO PRN (01:25)
[2020-09-05 06:12] LABS: BASO % 1.4 % (0-2.0); EOS % 2.4 % (0-4.5); HEMATOCRIT 35.6 % (32.4-45.2); HEMOGLOBIN 11.3 GM/dL (10.7-15.3); LYMPH % 30.9 % (8-40); MCH 24.1 pg (25.7-33.7); MCHC 31.7 g/dl (32.0-36.0); MEAN CELL VOLUME 76.1 fl (80-96); MEAN PLT VOLUME 8.2 fl (7.5-11.1); MONO % 8.4 % (3.8-10.2); NEUT % 56.9 % (42.8-82.8); PLATELET COUNT 300 K/MM3 (134-434); RBC 4.67 M/mm3 (3.60-5.2); WHITE BLOOD COUNT 7.2 K/mm3 (4.0-10.0)
[2020-09-05 06:27] LABS: POTASSIUM 4.2 mmol/L (3.5-5.1)
[2020-09-05 06:29] LABS: ALBUMIN 3.5 g/dl (3.4-5.0); CO2 23 mmol/L (21-32)
[2020-09-05 06:30] LABS: BLOOD UREA NITROGEN 9.4 mg/dL (7-18)
[2020-09-05 06:31] LABS: GLUCOSE,RANDOM 89 mg/dL (74-106)
[2020-09-05 06:33] LABS: CHOLESTEROL 183 mg/dL (50-200); CREATININE 0.7 mg/dL (0.55-1.3); SGOT/AST 10 U/L (15-37); SGPT/ALT 11 U/L (13-61)
[2020-09-05 06:34] LABS: PHOSPHOROUS 4.3 mg/dL (2.5-4.9); TRIGLYCERIDES 58 mg/dL (0-150)
[2020-09-05 06:35] LABS: BILIRUBIN,TOTAL 0.7 mg/dL (0.2-1); HDL CHOLESTEROL 84 mg/dL (40-60); LDL CHOLESTEROL (ONLY SJRH) 88 mg/dL (5-100)
[2020-09-05 06:36] LABS: ALK PHOS 123 U/L (45-117)
[2020-09-05 06:57] LABS: ANION GAP 7 MMOL/L (8-16); CHLORIDE 109 mmol/L (98-107); SODIUM 138 mmol/L (136-145)
[2020-09-05] MEDS ORDERED: FAMOTIDINE 20 MG TABLET ONE (08:59)
[2020-09-05] MEDS ORDERED: PT OWN MED DRAWER 7, Y5N ONE ×3 (09:00→21:46)
[2020-09-05] MEDS ORDERED: ENOXAPARIN NA (PORCINE) 40 MG/0.4 ML DISP.SYRIN SQ ONE (09:00)
[2020-09-05] MEDS: CHOLECALCIFEROL (VIT D3) 1,000 UNIT (25 MCG) TABLET PO SCH (09:11)
[2020-09-05] MEDS: ASPIRIN COATED 81 MG TABLET.EC PO SCH (09:11)
[2020-09-05] MEDS: ENOXAPARIN NA (PORCINE) 40 MG/0.4 ML DISP.SYRIN SQ SCH (09:11)
[2020-09-05] MEDS: METHIMAZOLE 5 MG TABLET (FP) PO SCH ×2 (09:11→22:57)
[2020-09-05] MEDS: ONDANSETRON HCL 4 MG/5 ML UD CUPS PO PRN (09:11)
[2020-09-05] MEDS: FAMOTIDINE 40 MG/5 ML ORAL SUSPENSION PO SCH (09:11)
[2020-09-05] MEDS: NITROGLYCERIN 0.6 MG/HR TD SCH (10:00)
[2020-09-05] MEDS ORDERED: PATIENT'S OWN MEDICATION (NON-FORMULARY) (Fluticasone Propionate [Flovent Hfa] 44 MCG Inha IH SCH (10:00)
[2020-09-05] MEDS: MOMETASONE FUROATE 110 MCG/IH INHALER IH SCH (22:57)
[2020-09-06] MEDS ORDERED: PT OWN MED DRAWER 7, Y5N ONE ×3 (09:05→21:03)
[2020-09-06] MEDS: CHOLECALCIFEROL (VIT D3) 1,000 UNIT (25 MCG) TABLET PO SCH (09:17)
[2020-09-06] MEDS: NITROGLYCERIN 0.6 MG/HR TD SCH (09:17)
[2020-09-06] MEDS: ENOXAPARIN NA (PORCINE) 40 MG/0.4 ML DISP.SYRIN SQ SCH (09:17)
[2020-09-06] MEDS: ASPIRIN COATED 81 MG TABLET.EC PO SCH (09:17)
[2020-09-06] MEDS: METHIMAZOLE 5 MG TABLET (FP) PO SCH ×2 (09:18→22:39)
[2020-09-06] MEDS: ONDANSETRON HCL 4 MG/5 ML UD CUPS PO PRN (09:25)
[2020-09-06] MEDS: FAMOTIDINE 40 MG/5 ML ORAL SUSPENSION PO SCH (10:09)
[2020-09-06] MEDS ORDERED: INSULIN (NOVOLOG) ASPART 100 UNITS/ML 10ML VIAL ONE (21:13)
[2020-09-06] MEDS: MOMETASONE FUROATE 110 MCG/IH INHALER IH SCH (23:22)
[2020-09-07] MEDS ORDERED: PT OWN MED DRAWER 7, Y5N ONE ×2 (08:36→09:53)
[2020-09-07] MEDS: ONDANSETRON HCL 4 MG/5 ML UD CUPS PO PRN (08:37)
[2020-09-07] MEDS: NITROGLYCERIN 0.6 MG/HR TD SCH (09:54)
[2020-09-07] MEDS: CHOLECALCIFEROL (VIT D3) 1,000 UNIT (25 MCG) TABLET PO SCH (09:54)
[2020-09-07] MEDS: ENOXAPARIN NA (PORCINE) 40 MG/0.4 ML DISP.SYRIN SQ SCH (09:54)
[2020-09-07] MEDS: ASPIRIN COATED 81 MG TABLET.EC PO SCH (09:54)
[2020-09-07] MEDS: FAMOTIDINE 40 MG/5 ML ORAL SUSPENSION PO SCH (09:55)
[2020-09-07] MEDS: METHIMAZOLE 5 MG TABLET (FP) PO SCH (09:56)
[2020-09-07 10:37] VITALS: BP 120/69; PULSE 63; TEMP 97.6
== END 2020-09-07 10:59 | disposition home health service (06) | DRG 125 ==
LOC: JER 18:44 → JERBED 22:25 → OBSVTOIN 09-05 01:00 → J4W 09-05 15:36
PROVIDERS: ADMIT Hospitalist; ATTEND Family Medicine
DX: H53.9 Unspecified visual disturbance (principal); I10 Essential (primary) hypertension; R91.1 Solitary pulmonary nodule; E05.90 Thyrotoxicosis, unspecified without thyrotoxic crisis or storm; E78.5 Hyperlipidemia, unspecified; H53.2 Diplopia; J45.909 Unspecified asthma, uncomplicated; K21.9 Gastro-esophageal reflux disease without esophagitis
CPT/HCPCS: 36415; 70450-TC; 70496-TC; 70551-TC; 71045-TC-FY; 80053; 80061; 82024; 82533; 82550; 82553; 83036; 83721; 83735; 84100; 84443; 84481; 84484; 85025; 85610; 85651; 85730; 86140; 86850; 86900; 86901; 93005; 93010; 93880-TC; 97116-GP; 97161-GP; 99285-25; C9803; G0378; Q9967; U0003

== ENCOUNTER 2020-09-12 20:11 | Emergency (ER) | payer OTHER ==
[2020-09-12 20:26] VITALS: BMI 20.5
[2020-09-12] MEDS ORDERED: SODIUM CHLORIDE 0.9% 500 ML INFUS.BAG IV ONE (20:38)
[2020-09-12 21:26] LABS: BASO % 0.8 % (0-2.0); EOS % 3.8 % (0-4.5); HEMATOCRIT 33.8 % (32.4-45.2); HEMOGLOBIN 10.5 GM/dL (10.7-15.3); LYMPH % 30.5 % (8-40); MCH 23.9 pg (25.7-33.7); MCHC 31.1 g/dl (32.0-36.0); MEAN CELL VOLUME 76.8 fl (80-96); MEAN PLT VOLUME 8.4 fl (7.5-11.1); MONO % 9.9 % (3.8-10.2); PLATELET COUNT 280 K/MM3 (134-434); RBC 4.41 M/mm3 (3.60-5.2); WHITE BLOOD COUNT 6.5 K/mm3 (4.0-10.0)
[2020-09-12 21:31] LABS: CHLORIDE 106 mmol/L (98-107); POTASSIUM 4.4 mmol/L (3.5-5.1); SODIUM 138 mmol/L (136-145)
[2020-09-12 21:34] LABS: ALBUMIN 3.3 g/dl (3.4-5.0); ANION GAP 7 MMOL/L (8-16); BLOOD UREA NITROGEN 14.9 mg/dL (7-18); CALCIUM 8.6 mg/dL (8.5-10.1); CO2 25 mmol/L (21-32); GLUCOSE,RANDOM 91 mg/dL (74-106)
[2020-09-12 21:35] LABS: INR 1.07 (0.83-1.09); PROTHROMBIN TIME (PATIENT) 13.1 SEC (9.7-13.0)
[2020-09-12 21:37] LABS: CREATININE 0.7 mg/dL (0.55-1.3); PHOSPHOROUS 4.4 mg/dL (2.5-4.9); SGOT/AST 16 U/L (15-37); SGPT/ALT 13 U/L (13-61)
[2020-09-12 21:38] LABS: ACTIVATED PTT 39.3 SECONDS (25.2-36.5); BILIRUBIN,TOTAL 0.3 mg/dL (0.2-1); TOT PROT 6.8 g/dl (6.4-8.2)
[2020-09-12 21:39] LABS: ALK PHOS 101 U/L (45-117)
[2020-09-12 21:48] LABS: MAGNESIUM 2.1 mg/dL (1.8-2.4)
[2020-09-12 21:57] VITALS: BP 103/70; PULSE 63; TEMP 98.7
== END 2020-09-13 00:32 | disposition home or self-care (01) ==
LOC: JER 20:11
DX: R00.2 Palpitations (principal)
CPT/HCPCS: 36415; 71045-TC-FY; 80053; 82550; 83735; 84100; 84439; 84443; 84484; 85025; 85610; 85730; 93005; 93010; 99285-25

== ENCOUNTER 2020-09-16 03:49 | Observation (INO) | payer OTHER ==
[2020-09-16] MEDS ORDERED: IBUPROFEN 100 MG/5 ML UNIT DOSE CUPS PO ONE (04:38)
[2020-09-16] MEDS ORDERED: IBUPROFEN 100 MG/5 ML UNIT DOSE CUPS ONE (04:47)
[2020-09-16 05:15] LABS: BASO % 0.7 % (0-2.0); EOS % 3.5 % (0-4.5); HEMATOCRIT 34.1 % (32.4-45.2); HEMOGLOBIN 10.6 GM/dL (10.7-15.3); LYMPH % 35.6 % (8-40); MCH 23.7 pg (25.7-33.7); MCHC 31.2 g/dl (32.0-36.0); MEAN PLT VOLUME 7.7 fl (7.5-11.1); MONO % 9.6 % (3.8-10.2); NEUT % 50.6 % (42.8-82.8); PLATELET COUNT 299 K/MM3 (134-434); RBC 4.49 M/mm3 (3.60-5.2); RDW 17.6 % (11.6-15.6); WHITE BLOOD COUNT 6.5 K/mm3 (4.0-10.0)
[2020-09-16 05:33] VITALS: BMI 25.4
[2020-09-16 05:36] LABS: CHLORIDE 106 mmol/L (98-107); POTASSIUM 4.8 mmol/L (3.5-5.1); SODIUM 138 mmol/L (136-145)
[2020-09-16 05:39] LABS: ALBUMIN 3.5 g/dl (3.4-5.0); ANION GAP 7 MMOL/L (8-16); BLOOD UREA NITROGEN 15.9 mg/dL (7-18); CO2 25 mmol/L (21-32); GLUCOSE,RANDOM 96 mg/dL (74-106); MAGNESIUM 2.3 mg/dL (1.8-2.4)
[2020-09-16 05:42] LABS: CREATININE 0.7 mg/dL (0.55-1.3); SGOT/AST 13 U/L (15-37); SGPT/ALT 14 U/L (13-61)
[2020-09-16 05:43] LABS: PHOSPHOROUS 3.4 mg/dL (2.5-4.9)
[2020-09-16 05:44] LABS: BILIRUBIN,TOTAL 0.4 mg/dL (0.2-1); TOT PROT 7.2 g/dl (6.4-8.2)
[2020-09-16 05:45] LABS: ALK PHOS 104 U/L (45-117)
[2020-09-16] MEDS ORDERED: FAMOTIDINE 20 MG/50 ML IVPB 20 MG/50 ML MG IVPB ONE (10:36)
[2020-09-16] MEDS ORDERED: ALBUTEROL SO4 HFA INHALER IH PRN (10:39)
[2020-09-16] MEDS ORDERED: ACETAMINOPHEN 325 MG TABLET (FP) PO PRN (10:39)
[2020-09-16] MEDS: METHIMAZOLE 5 MG TABLET (FP) PO SCH ×2 (11:54→23:16)
[2020-09-16] MEDS ORDERED: ONDANSETRON *ODT* 4 MG TABLET ONE (12:59)
[2020-09-16] MEDS ORDERED: FAMOTIDINE 20 MG TABLET ONE (13:12)
[2020-09-16] MEDS ORDERED: PT OWN MED DRAWER 7, Y5N ONE (14:08)
[2020-09-16] MEDS ORDERED: ACETAMINOPHEN 650 MG/20.3 ML ORAL SOLUTION (CUPS) ONE (17:20)
[2020-09-16] MEDS: BUDESONIDE/FORMETEROL FUMARATE 80/4.5 mcg INHALER IH SCH (23:17)
[2020-09-16] MEDS ORDERED: ONDANSETRON PO SCH (23:45)
[2020-09-17] MEDS ORDERED: ONDANSETRON *ODT* 4 MG TABLET ONE ×2 (00:32→08:07)
[2020-09-17] MEDS: ONDANSETRON *ODT* 4 MG TABLET SL PRN ×2 (00:33→08:18)
[2020-09-17] MEDS ORDERED: dilTIAZem HCL 60 MG TABLET PO SCH (06:00)
[2020-09-17] MEDS ORDERED: FAMOTIDINE 20 MG TABLET ONE (08:06)
[2020-09-17] MEDS ORDERED: METHIMAZOLE 5 MG TABLET (FP) PO SCH (10:00)
[2020-09-17] MEDS ORDERED: FAMOTIDINE 40 MG/5 ML ORAL SUSPENSION PO SCH (10:00)
[2020-09-17] MEDS ORDERED: ASPIRIN COATED 81 MG TABLET.EC PO SCH (10:00)
[2020-09-17] MEDS ORDERED: FAMOTIDINE 20 MG TABLET PO SCH (10:00)
[2020-09-17] MEDS ORDERED: ASPIRIN 81 MG CHEWABLE TABLETS PO SCH (10:00)
[2020-09-17 10:44] LABS: BASO % 1.1 % (0-2.0); EOS % 3.5 % (0-4.5); HEMATOCRIT 34.4 % (32.4-45.2); HEMOGLOBIN 10.5 GM/dL (10.7-15.3); LYMPH % 31.3 % (8-40); MCH 23.4 pg (25.7-33.7); MCHC 30.7 g/dl (32.0-36.0); MEAN CELL VOLUME 76.4 fl (80-96); MEAN PLT VOLUME 8.4 fl (7.5-11.1); MONO % 8.8 % (3.8-10.2); NEUT % 55.3 % (42.8-82.8); PLATELET COUNT 310 K/MM3 (134-434); RDW 17.6 % (11.6-15.6); WHITE BLOOD COUNT 7.6 K/mm3 (4.0-10.0)
[2020-09-17 10:57] LABS: CHLORIDE 107 mmol/L (98-107); POTASSIUM 4.3 mmol/L (3.5-5.1); SODIUM 140 mmol/L (136-145)
[2020-09-17 10:59] LABS: CALCIUM 8.7 mg/dL (8.5-10.1)
[2020-09-17 11:00] LABS: ALBUMIN 3.2 g/dl (3.4-5.0); ANION GAP 9 MMOL/L (8-16); CO2 24 mmol/L (21-32); GLUCOSE,RANDOM 93 mg/dL (74-106)
[2020-09-17 11:03] LABS: CREATININE 0.6 mg/dL (0.55-1.3); SGOT/AST 12 U/L (15-37); SGPT/ALT 15 U/L (13-61)
[2020-09-17 11:04] LABS: BILIRUBIN,TOTAL 0.4 mg/dL (0.2-1)
[2020-09-17 11:06] LABS: ALK PHOS 96 U/L (45-117)
[2020-09-17 11:11] LABS: BLOOD UREA NITROGEN 13.7 mg/dL (7-18)
[2020-09-17] MEDS: METHIMAZOLE 5 MG TABLET (FP) PO SCH (11:34)
[2020-09-17 11:41] VITALS: BP 121/74; PULSE 70; TEMP 98
[2020-09-17] MEDS: BUDESONIDE/FORMETEROL FUMARATE 80/4.5 mcg INHALER IH SCH (12:13)
== END 2020-09-17 13:30 | disposition home or self-care (01) ==
LOC: JER 03:49 → JERBED 06:37
PROVIDERS: ADMIT Hospitalist; ATTEND Family Medicine
DX: I10 Essential (primary) hypertension (principal); E05.90 Thyrotoxicosis, unspecified without thyrotoxic crisis or storm; J45.909 Unspecified asthma, uncomplicated; R07.9 Chest pain, unspecified; F41.9 Anxiety disorder, unspecified; G47.33 Obstructive sleep apnea (adult) (pediatric); R91.1 Solitary pulmonary nodule; K21.9 Gastro-esophageal reflux disease without esophagitis; K22.0 Achalasia of cardia; Z88.8 Allergy status to other drugs, medicaments and biological substances; Z91.040 Latex allergy status
CPT/HCPCS: 36415; 71045-TC-FY; 80053; 82550; 83735; 84100; 84484; 85025; 93005; 93010; 99285-25; C9803; G0378; Q0162; U0003

== ENCOUNTER 2020-12-05 20:23 | Inpatient (IN) | payer OTHER ==
[2020-12-05] MEDS ORDERED: POTASSIUM CHLORIDE ORAL LIQUID 20 MEQ/15 ML PO ONE ×2 (20:50→20:57)
[2020-12-05] MEDS ORDERED: POTASSIUM CHLORIDE ORAL LIQUID 20 MEQ/15 ML ONE (21:04)
[2020-12-05] MEDS ORDERED: KCL 10 MEQ IVPB 30 MEQ/300 ML INFUS.BAG IVPB ONE (22:34)
[2020-12-05] MEDS: KCL 10 MEQ IVPB 10 MEQ/100 ML INFUS.BAG IVPB SCH (22:45)
[2020-12-05 23:02] LABS: CALCIUM 9.1 mg/dL (8.5-10.1)
[2020-12-05 23:03] LABS: ALBUMIN 3.6 g/dl (3.4-5.0); BLOOD UREA NITROGEN 10.8 mg/dL (7-18); MAGNESIUM 2.3 mg/dL (1.8-2.4)
[2020-12-05 23:06] LABS: CREATININE 0.6 mg/dL (0.55-1.3)
[2020-12-05 23:07] LABS: BILIRUBIN,TOTAL 0.7 mg/dL (0.2-1); TOT PROT 7.9 g/dl (6.4-8.2)
[2020-12-05 23:15] LABS: POTASSIUM 2.7 mmol/L (3.5-5.1)
[2020-12-06] MEDS ORDERED: ALBUTEROL SO4 HFA INHALER IH PRN (00:45)
[2020-12-06] MEDS: KCL 10 MEQ IVPB 10 MEQ/100 ML INFUS.BAG IVPB SCH ×4 (00:48→22:51)
[2020-12-06] MEDS: MOMETASONE FUROATE 220 MCG/IH INHALER IH SCH ×2 (02:51→22:52)
[2020-12-06 06:59] LABS: BASO % 1.1 % (0-2.0); EOS % 1.5 % (0-4.5); HEMATOCRIT 35.1 % (32.4-45.2); HEMOGLOBIN 11.3 GM/dL (10.7-15.3); LYMPH % 24.8 % (8-40); MCH 25.3 pg (25.7-33.7); MCHC 32.4 g/dl (32.0-36.0); MEAN CELL VOLUME 78.3 fl (80-96); MEAN PLT VOLUME 7.3 fl (7.5-11.1); NEUT % 66.6 % (42.8-82.8); PLATELET COUNT 322 K/MM3 (134-434); RBC 4.48 M/mm3 (3.60-5.2); RDW 20.6 % (11.6-15.6); WHITE BLOOD COUNT 9.1 K/mm3 (4.0-10.0)
[2020-12-06 07:32] LABS: BLOOD UREA NITROGEN 7.7 mg/dL (7-18); CALCIUM 8.5 mg/dL (8.5-10.1)
[2020-12-06 07:35] LABS: CREATININE 0.5 mg/dL (0.55-1.3)
[2020-12-06 07:37] LABS: BILIRUBIN,TOTAL 0.7 mg/dL (0.2-1); TOT PROT 6.6 g/dl (6.4-8.2)
[2020-12-06 08:26] LABS: POTASSIUM 2.5 mmol/L (3.5-5.1)
[2020-12-06] MEDS ORDERED: FAMOTIDINE 20 MG TABLET ONE (09:18)
[2020-12-06] MEDS ORDERED: ASPIRIN COATED 81 MG TABLET.EC ONE (09:18)
[2020-12-06] MEDS ORDERED: ENOXAPARIN NA (PORCINE) 40 MG/0.4 ML DISP.SYRIN SQ ONE (09:18)
[2020-12-06] MEDS ORDERED: ONDANSETRON *ODT* 4 MG TABLET ONE (09:55)
[2020-12-06] MEDS ORDERED: ONDANSETRON *ODT* 4 MG TABLET SL PRN (09:56)
[2020-12-06] MEDS ORDERED: FAMOTIDINE 40 MG TABLET PO SCH (10:00)
[2020-12-06] MEDS: METHIMAZOLE 5 MG TABLET (FP) PO SCH ×2 (10:48→22:54)
[2020-12-06] MEDS: ASPIRIN COATED 81 MG TABLET.EC PO SCH (10:48)
[2020-12-06] MEDS ORDERED: ACETAMINOPHEN 325 MG TABLET (FP) PO PRN (10:56)
[2020-12-06] MEDS: ENOXAPARIN NA (PORCINE) 40 MG/0.4 ML DISP.SYRIN SQ SCH (11:34)
[2020-12-06] MEDS ORDERED: POTASSIUM CHLORIDE ORAL LIQUID 20 MEQ/15 ML PO ONE (11:52)
[2020-12-06] MEDS: BUDESONIDE/FORMETEROL FUMARATE 80/4.5 mcg INHALER IH SCH ×3 (12:16→22:54)
[2020-12-06] MEDS: POTASSIUM CHLORIDE TABS 20 MEQ TABLET.ER (FP) PO SCH ×2 (12:17→22:53)
[2020-12-06] MEDS ORDERED: ONDANSETRON 4 MG/2 ML VIAL ONE (12:21)
[2020-12-06] MEDS: FAMOTIDINE 20 MG/50 ML IVPB 20 MG/50 ML MG IVPB SCH ×2 (12:39→22:51)
[2020-12-06] MEDS ORDERED: SODIUM CHLORIDE 0.45% 1,000 ML with POTASSIUM CHLORIDE 40 MEQ IV SCH (14:15)
[2020-12-06] MEDS ORDERED: KCL 10 MEQ IVPB 10 MEQ/100 ML INFUS.BAG IVPB ONE (15:06)
[2020-12-06] MEDS: POTASSIUM CHLORIDE 40 MEQ in SODIUM CHLORIDE 0.45% 1,000 ML IV SCH (15:45)
[2020-12-06 16:49] LABS: POTASSIUM 3.5 mmol/L (3.5-5.1)
[2020-12-06 16:50] LABS: CALCIUM 8.5 mg/dL (8.5-10.1)
[2020-12-06 16:51] LABS: BLOOD UREA NITROGEN 6.4 mg/dL (7-18)
[2020-12-06 16:54] LABS: CREATININE 0.5 mg/dL (0.55-1.3)
[2020-12-06] MEDS ORDERED: ROSUVASTATIN CA 5 MG TABLET (FP) PO SCH (22:00)
[2020-12-06] MEDS ORDERED: POTASSIUM CHLORIDE TABS 20 MEQ TABLET.ER (FP) PO ONE (22:38)
[2020-12-06] MEDS ORDERED: FAMOTIDINE 20 MG/50 ML IVPB 20 MG/50 ML MG IVPB ONE (22:38)
[2020-12-06] MEDS ORDERED: dilTIAZem HCL 60 MG TABLET ONE (22:38)
[2020-12-07 00:40] VITALS: BMI 19.4
[2020-12-07] MEDS: POTASSIUM CHLORIDE 40 MEQ in SODIUM CHLORIDE 0.45% 1,000 ML IV SCH (00:47)
[2020-12-07 08:21] LABS: POTASSIUM 3.7 mmol/L (3.5-5.1)
[2020-12-07 08:26] LABS: MAGNESIUM 2.3 mg/dL (1.8-2.4)
[2020-12-07 08:27] LABS: BLOOD UREA NITROGEN 4.8 mg/dL (7-18)
[2020-12-07 08:29] LABS: CALCIUM 9.3 mg/dL (8.5-10.1)
[2020-12-07 08:30] LABS: CREATININE 0.5 mg/dL (0.55-1.3)
[2020-12-07] MEDS: FAMOTIDINE 20 MG/50 ML IVPB 20 MG/50 ML MG IVPB SCH (09:58)
[2020-12-07] MEDS: ENOXAPARIN NA (PORCINE) 40 MG/0.4 ML DISP.SYRIN SQ SCH (10:02)
[2020-12-07] MEDS ORDERED: PT OWN MED DRAWER 7, Y5N ONE (10:40)
[2020-12-07] MEDS ORDERED: POTASSIUM CHLORIDE ORAL LIQUID 20 MEQ/15 ML PO SCH ×2 (11:00→22:00)
[2020-12-07] MEDS: BUDESONIDE/FORMETEROL FUMARATE 80/4.5 mcg INHALER IH SCH (11:04)
[2020-12-07] MEDS: ASPIRIN COATED 81 MG TABLET.EC PO SCH (11:04)
[2020-12-07] MEDS: METHIMAZOLE 5 MG TABLET (FP) PO SCH (11:04)
[2020-12-07] MEDS: POTASSIUM CHLORIDE TABS 20 MEQ TABLET.ER (FP) PO SCH (11:32)
[2020-12-07 14:38] VITALS: TEMP 98.2
[2020-12-07 15:13] VITALS: BP 101/61; PULSE 95
== END 2020-12-07 15:32 | disposition home or self-care (01) | DRG 641 ==
LOC: JER 20:23 → JERBED 23:27 → J4W 12-06 23:28
PROVIDERS: ADMIT Internal Medicine; ATTEND Family Medicine
DX: E87.6 Hypokalemia (principal); I10 Essential (primary) hypertension; E78.5 Hyperlipidemia, unspecified; K21.9 Gastro-esophageal reflux disease without esophagitis; E04.1 Nontoxic single thyroid nodule; F41.9 Anxiety disorder, unspecified; K42.9 Umbilical hernia without obstruction or gangrene; J45.909 Unspecified asthma, uncomplicated; R13.10 Dysphagia, unspecified; R11.2 Nausea with vomiting, unspecified; Z88.0 Allergy status to penicillin; K22.0 Achalasia of cardia; Z20.822 Contact with and (suspected) exposure to COVID-19
CPT/HCPCS: 36415; 70490-TC; 71045-TC-FY; 80048; 80053; 82436; 83735; 83930; 83935; 84133; 84300; 85025; 93005; 93010; 99285-25; C9803; U0003

== ENCOUNTER 2020-12-12 04:00 | Emergency (ER) | payer OTHER ==
[2020-12-12 04:37] VITALS: BP 136/84; PULSE 86; TEMP 98.5; BMI 19.5
[2020-12-12 06:07] LABS: BASO % 1.6 % (0-2.0); EOS % 2.6 % (0-4.5); HEMOGLOBIN 11.8 GM/dL (10.7-15.3); LYMPH % 22.2 % (8-40); MCH 25.8 pg (25.7-33.7); MCHC 32.8 g/dl (32.0-36.0); MEAN CELL VOLUME 78.7 fl (80-96); MEAN PLT VOLUME 7.3 fl (7.5-11.1); MONO % 5.9 % (3.8-10.2); NEUT % 67.7 % (42.8-82.8); PLATELET COUNT 346 K/MM3 (134-434); RBC 4.58 M/mm3 (3.60-5.2); RDW 21.4 % (11.6-15.6); WHITE BLOOD COUNT 9.1 K/mm3 (4.0-10.0)
[2020-12-12 06:21] LABS: CHLORIDE 109 mmol/L (98-107); POTASSIUM 5.1 mmol/L (3.5-5.1); SODIUM 137 mmol/L (136-145)
[2020-12-12 06:23] LABS: CALCIUM 9.4 mg/dL (8.5-10.1)
[2020-12-12 06:24] LABS: ALBUMIN 3.3 g/dl (3.4-5.0); ANION GAP 9 MMOL/L (8-16); BLOOD UREA NITROGEN 10.8 mg/dL (7-18); CO2 20 mmol/L (21-32); GLUCOSE,RANDOM 95 mg/dL (74-106)
[2020-12-12 06:27] LABS: CREATININE 0.6 mg/dL (0.55-1.3); SGOT/AST 28 U/L (15-37); SGPT/ALT 16 U/L (13-61)
[2020-12-12 06:29] LABS: BILIRUBIN,TOTAL 0.5 mg/dL (0.2-1); TOT PROT 7.3 g/dl (6.4-8.2)
[2020-12-12 06:30] LABS: ALK PHOS 104 U/L (45-117)
[2020-12-12 07:57] LABS: POTASSIUM 4.9 mmol/L (3.5-5.1)
[2020-12-12 07:58] LABS: CALCIUM 9.4 mg/dL (8.5-10.1)
[2020-12-12 08:02] LABS: CREATININE 0.6 mg/dL (0.55-1.3)
[2020-12-12 08:24] LABS: ANISOCYTOSIS 3+; MACROCYTOSIS 0; PLATELET ESTIMATE NORMAL; TARGET CELLS 1+
== END 2020-12-12 08:55 | disposition home or self-care (01) ==
LOC: JER 04:00
DX: R42 Dizziness and giddiness (principal)
CPT/HCPCS: 36415; 80048; 80053; 84484; 85025; 93005; 93010; 99284-25

== ENCOUNTER 2020-12-14 00:04 | Emergency (ER) | payer OTHER ==
[2020-12-14 01:21] VITALS: BMI 20.7
[2020-12-14] MEDS ORDERED: LACTATED RINGERS SOLUTION 1000 ML INFUS.BAG IV ONE (01:30)
[2020-12-14] MEDS ORDERED: ACETAMINOPHEN 1000 MG/100 ML VIAL (NON FORMULARY) IVPB ONE (01:30)
[2020-12-14] MEDS ORDERED: FAMOTIDINE 20 MG/50 ML IVPB 20 MG/50 ML MG IVPB ONE ×2 (01:30→02:13)
[2020-12-14] MEDS ORDERED: ACETAMINOPHEN INJECTION 100 ML IVPB ONE (02:07)
[2020-12-14 02:22] LABS: BASO % 0.9 % (0-2.0); EOS % 1.6 % (0-4.5); HEMATOCRIT 36.6 % (32.4-45.2); HEMOGLOBIN 11.7 GM/dL (10.7-15.3); MCH 25.5 pg (25.7-33.7); MEAN CELL VOLUME 79.8 fl (80-96); MEAN PLT VOLUME 7.8 fl (7.5-11.1); NEUT % 72.5 % (42.8-82.8); PLATELET COUNT 354 K/MM3 (134-434); RBC 4.59 M/mm3 (3.60-5.2); RDW 21.5 % (11.6-15.6); WHITE BLOOD COUNT 9.4 K/mm3 (4.0-10.0)
[2020-12-14 02:26] LABS: PH,URINE >= 9.0 (5.0-8.0); URINE APPEARANCE CLEAR; URINE BILIRUBIN NEGATIVE (NEGATIVE); URINE COLOR YELLOW; URINE GLUCOSE (UA) NEGATIVE (NEGATIVE); URINE KETONE NEGATIVE (NEGATIVE); URINE LEUK ESTERASE NEGATIVE (NEGATIVE); URINE NITRITE NEGATIVE (NEGATIVE); URINE PROTEIN NEGATIVE (NEGATIVE); URINE UROBILINOGEN 0.2 mg/dL (0.2-1.0)
[2020-12-14 02:30] LABS: INR 1.06 (0.83-1.09)
[2020-12-14 02:33] LABS: ACTIVATED PTT 36.7 SECONDS (25.2-36.5)
[2020-12-14 02:36] LABS: CHLORIDE 109 mmol/L (98-107); POTASSIUM 4.3 mmol/L (3.5-5.1); SODIUM 138 mmol/L (136-145)
[2020-12-14 02:39] LABS: ALBUMIN 3.5 g/dl (3.4-5.0); ANION GAP 8 MMOL/L (8-16); BLOOD UREA NITROGEN 11.5 mg/dL (7-18); CO2 21 mmol/L (21-32); GLUCOSE,RANDOM 103 mg/dL (74-106); LIPASE 38 U/L (73-393)
[2020-12-14 02:42] LABS: CREATININE 0.7 mg/dL (0.55-1.3); SGOT/AST 18 U/L (15-37); SGPT/ALT 15 U/L (13-61)
[2020-12-14 02:44] LABS: BILIRUBIN,TOTAL 0.8 mg/dL (0.2-1); TOT PROT 7.4 g/dl (6.4-8.2)
[2020-12-14 02:45] LABS: ALK PHOS 106 U/L (45-117)
[2020-12-14 03:20] LABS: CALCIUM 9.6 mg/dL (8.5-10.1)
[2020-12-14 05:39] VITALS: BP 138/84; PULSE 86; TEMP 98.2
== END 2020-12-14 05:48 | disposition home or self-care (01) ==
LOC: JER 00:04
PROC: 3E033NZ Introduction of Analgesics, Hypnotics, Sedatives into Peripheral Vein, Percutaneous Approach (ICD-10-PCS; principal; 2020-12-14)
PROC: 3E033GC Introduction of Other Therapeutic Substance into Peripheral Vein, Percutaneous Approach (ICD-10-PCS; 2020-12-14)
DX: R10.84 Generalized abdominal pain (principal)
CPT/HCPCS: 36415; 74177-TC; 80053; 81003; 82272; 83605; 83690; 84484; 85025; 85610; 85730; 87086; 96365; 96375; 99285-25; J0131; Q9967

== ENCOUNTER 2022-06-04 02:42 | Emergency (ER) | payer OTHER ==
[2022-06-04 03:00] VITALS: BP 152/93; PULSE 88; RESP 19; TEMP 98.2; BMI 25.4
[2022-06-04] MEDS ORDERED: ACETAMINOPHEN 500 MG TABLET (FP) PO ONE (04:20)
[2022-06-04] MEDS ORDERED: ACETAMINOPHEN 325 MG TABLET (FP) ONE (04:43)
[2022-06-04] MEDS ORDERED: ACETAMINOPHEN 650 MG/20.3 ML ORAL SOLUTION (CUPS) ONE (05:12)
[2022-06-04 05:22] LABS: BASO % 0.7 % (0-2.0); EOS % 1.9 % (0-4.5); HEMATOCRIT 39.7 % (32.4-45.2); HEMOGLOBIN 12.5 GM/dL (10.7-15.3); LYMPH % 29.6 % (8-40); MCH 24.2 pg (25.7-33.7); MCHC 31.6 g/dl (32.0-36.0); MEAN CELL VOLUME 76.4 fl (80-96); MEAN PLT VOLUME 8.6 fl (7.5-11.1); MONO % 7.6 % (3.8-10.2); NEUT % 60.2 % (42.8-82.8); PLATELET COUNT 268 10^3/uL (134-434); RBC 5.19 M/mm3 (3.60-5.2); RDW 18.4 % (11.6-15.6); WHITE BLOOD COUNT 7.5 K/mm3 (4.0-10.0)
[2022-06-04 05:44] LABS: ALBUMIN 3.3 g/dl (3.4-5.0); CALCIUM 8.9 mg/dL (8.5-10.1)
[2022-06-04 05:45] LABS: BLOOD UREA NITROGEN 13.6 mg/dL (7-18); MAGNESIUM 2.1 mg/dL (1.8-2.4)
[2022-06-04 05:48] LABS: CREATININE 0.7 mg/dL (0.55-1.3)
[2022-06-04 05:49] LABS: BILIRUBIN,TOTAL 0.4 mg/dL (0.2-1); TOT PROT 7.6 g/dl (6.4-8.2)
[2022-06-04 06:08] LABS: INR 1.09 (0.83-1.09); PROTHROMBIN TIME (PATIENT) 12.5 SEC (9.7-13.0)
[2022-06-04 06:11] LABS: ACTIVATED PTT 37.8 SECONDS (25.2-36.5)
== END 2022-06-04 07:02 | disposition home or self-care (01) ==
LOC: JER 02:42
DX: R20.2 Paresthesia of skin (principal)
CPT/HCPCS: 36415; 80053; 82550; 83735; 84443; 85025; 85379; 85610; 85730; 99283-25

== ENCOUNTER 2022-06-16 10:16 | Emergency (ER) | payer OTHER ==
[2022-06-16 11:02] VITALS: TEMP 98.7; BMI 24.7
[2022-06-16 12:59] LABS: BASO % 0.6 % (0-2.0); EOS % 0.8 % (0-4.5); HEMATOCRIT 39.7 % (32.4-45.2); HEMOGLOBIN 12.9 GM/dL (10.7-15.3); LYMPH % 21.9 % (8-40); MCHC 32.5 g/dl (32.0-36.0); MEAN CELL VOLUME 76.9 fl (80-96); MEAN PLT VOLUME 9.1 fl (7.5-11.1); MONO % 7.3 % (3.8-10.2); NEUT % 69.4 % (42.8-82.8); PLATELET COUNT 284 10^3/uL (134-434); RBC 5.17 M/mm3 (3.60-5.2); RDW 17.9 % (11.6-15.6); WHITE BLOOD COUNT 8.8 K/mm3 (4.0-10.0)
[2022-06-16 13:05] LABS: INR 1.11 (0.83-1.09); PROTHROMBIN TIME (PATIENT) 12.8 SEC (9.7-13.0)
[2022-06-16 13:08] LABS: ACTIVATED PTT 38.1 SECONDS (25.2-36.5)
[2022-06-16 13:17] LABS: CALCIUM 9.2 mg/dL (8.5-10.1)
[2022-06-16 13:18] LABS: ALBUMIN 3.5 g/dl (3.4-5.0); BLOOD UREA NITROGEN 15.9 mg/dL (7-18)
[2022-06-16 13:21] LABS: CREATININE 0.7 mg/dL (0.55-1.3)
[2022-06-16 13:23] LABS: BILIRUBIN,TOTAL 0.6 mg/dL (0.2-1)
[2022-06-16] MEDS ORDERED: FAMOTIDINE 20 MG/50 ML IVPB 20 MG/50 ML MG IVPB ONE ×2 (13:45→13:49)
[2022-06-16] MEDS ORDERED: ONDANSETRON 4 MG/2 ML VIAL IVPUSH ONE (13:45)
[2022-06-16] MEDS ORDERED: FAMOTIDINE 10 MG/ML VIAL IVPB ONE (13:48)
[2022-06-16] MEDS ORDERED: ONDANSETRON 4 MG/2 ML VIAL ONE (13:49)
[2022-06-16 16:10] VITALS: BP 113/99; PULSE 73; RESP 16
== END 2022-06-16 16:26 | disposition home or self-care (01) ==
LOC: JER 10:16
PROC: 3E033NZ Introduction of Analgesics, Hypnotics, Sedatives into Peripheral Vein, Percutaneous Approach (ICD-10-PCS; principal; 2022-06-16)
PROC: 3E033GC Introduction of Other Therapeutic Substance into Peripheral Vein, Percutaneous Approach (ICD-10-PCS; 2022-06-16)
DX: R00.2 Palpitations (principal)
CPT/HCPCS: 36415; 71045-TC-FY; 80053; 84132; 84484; 85025; 85610; 85730; 93005; 93010; 96374; 96375; 99284-25

== ENCOUNTER 2022-07-13 20:42 | Emergency (ER) | payer OTHER ==
[2022-07-13 20:49] VITALS: PULSE 88; RESP 19; TEMP 97.5; BMI 24.9
[2022-07-13 22:03] VITALS: BP 114/77
== END 2022-07-13 22:16 | disposition home or self-care (01) ==
LOC: JER 20:42
DX: I10 Essential (primary) hypertension (principal)
CPT/HCPCS: 99283-25

== ENCOUNTER 2022-11-21 14:32 | Emergency (ER) | payer OTHER ==
[2022-11-21 14:52] VITALS: RESP 18; BMI 24.5
[2022-11-21 18:57] VITALS: BP 145/78; PULSE 72; TEMP 98.2
== END 2022-11-21 18:57 | disposition home or self-care (01) ==
LOC: JER 14:32
DX: R09.89 Other specified symptoms and signs involving the circulatory and respiratory systems (principal); R13.10 Dysphagia, unspecified
CPT/HCPCS: 99281-25

== ENCOUNTER 2024-01-18 13:29 | Emergency (ER) | payer OTHER ==
[2024-01-18 14:24] VITALS: RESP 18; BMI 25.1
[2024-01-18] MEDS ORDERED: ACETAMINOPHEN 500 MG TABLET (FP) ONE (14:31)
[2024-01-18] MEDS: ACETAMINOPHEN 325 MG TABLET (FP) PO ONE (14:40)
[2024-01-18] MEDS: HYDROCORTISONE 2.5% TOPICAL CREAM 30 GM TUBE TP ONE (16:27)
[2024-01-18] MEDS ORDERED: LIDOCAINE 2.5%/PRILOCAINE 2.5% (5 Gram/TUBE) TP ONE (16:28)
[2024-01-18] MEDS: LIDOCAINE 2.5%/PRILOCAINE 2.5% 30 GRAM TUBE TP ONE (16:30)
[2024-01-18 16:41] VITALS: BP 134/80; PULSE 68; TEMP 97.8
== END 2024-01-18 16:42 | disposition home or self-care (01) ==
LOC: JER 13:29
DX: M25.551 Pain in right hip (principal); M25.552 Pain in left hip; K64.9 Unspecified hemorrhoids
CPT/HCPCS: 72170-TC-FY; 99283-25

== ENCOUNTER 2024-02-28 18:11 | Observation (INO) | payer OTHER ==
[2024-02-28] MEDS ORDERED: KETOROLAC TROMETHAMINE 30 MG/1 ML VIAL ONE (19:51)
[2024-02-28] MEDS: KETOROLAC TROMETHAMINE 30 MG/1 ML VIAL IM ONE (19:59)
[2024-02-28] MEDS ORDERED: METHOCARBAMOL 500 MG TABLET ONE (21:01)
[2024-02-28] MEDS: METHOCARBAMOL 750 MG TABLET PO ONE ×2 (21:06→21:38)
[2024-02-28 22:47] LABS: BASO % 1.1 % (0-2.0); EOS % 1.3 % (0-4.5); HEMATOCRIT 35.5 % (32.4-45.2); HEMOGLOBIN 11.2 GM/dL (10.7-15.3); LYMPH % 26.1 % (8-40); MCH 22.7 pg (25.7-33.7); MCHC 31.5 g/dl (32.0-36.0); MEAN CELL VOLUME 72.2 fl (80-96); MEAN PLT VOLUME 7.4 fl (7.5-11.1); MONO % 6.7 % (3.8-10.2); NEUT % 64.8 % (42.8-82.8); PLATELET COUNT 319 10^3/uL (134-434); RBC 4.92 M/mm3 (3.60-5.2); WHITE BLOOD COUNT 9.9 K/mm3 (4.0-10.0)
[2024-02-28 22:52] LABS: INR 1.06 (0.83-1.09)
[2024-02-28 22:55] LABS: ACTIVATED PTT 37.4 SECONDS (25.2-36.5)
[2024-02-28 23:04] LABS: POTASSIUM 4.1 mmol/L (3.5-5.1)
[2024-02-28 23:05] LABS: ALBUMIN 3.6 g/dl (3.4-5.0); CALCIUM 9.1 mg/dL (8.5-10.1)
[2024-02-28 23:06] LABS: BLOOD UREA NITROGEN 11.8 mg/dL (7-18)
[2024-02-28 23:09] LABS: CREATININE 0.7 mg/dL (0.55-1.3)
[2024-02-28 23:10] LABS: BILIRUBIN,TOTAL 0.5 mg/dL (0.2-1); TOT PROT 7.8 g/dl (6.4-8.2)
[2024-02-29] MEDS ORDERED: DOCUSATE SODIUM 100 MG CAPSULE (FP) PO PRN (00:47)
[2024-02-29] MEDS ORDERED: ACETAMINOPHEN 1000 MG/100 ML BAG IVPB PRN (00:54)
[2024-02-29] MEDS ORDERED: morphine SULFATE 4 MG/ML VIAL ONE (01:32)
[2024-02-29] MEDS: morphine CARPU-JECT 4 MG/1 ML DISP.SYRIN IVPUSH ONE (01:46)
[2024-02-29] MEDS: morphine SULFATE 4 MG/ML VIAL IVPUSH ONE (02:26)
[2024-02-29] MEDS ORDERED: FAMOTIDINE 10 MG TABLET ONE ×2 (06:20→16:20)
[2024-02-29] MEDS: FAMOTIDINE 10 MG TABLET PO SCH (08:34)
[2024-02-29] MEDS ORDERED: KETOROLAC TROMETHAMINE 15 MG/ML VIAL ONE (09:45)
[2024-02-29] MEDS ORDERED: HEPARIN NA (PORCINE) 5,000 UNITS/ML 1ML VIAL ONE (09:45)
[2024-02-29] MEDS: HEPARIN NA (PORCINE) 5,000 UNITS/ML 1ML VIAL SQ SCH (09:55)
[2024-02-29] MEDS ORDERED: ALBUTEROL SO4 HFA INHALER IH PRN (10:05)
[2024-02-29] MEDS: LORATADINE 10 MG TABLET PO SCH (11:30)
[2024-02-29] MEDS: BUDESONIDE/FORMETEROL FUMARATE 80/4.5 mcg INHALER IH SCH (11:43)
[2024-02-29] MEDS: METHIMAZOLE 5 MG TABLET PO SCH (11:44)
[2024-02-29] MEDS: busPIRone HCL 5 MG TABLET PO SCH (14:23)
[2024-02-29 16:28] VITALS: RESP 18
[2024-02-29] MEDS: diazePAM 2 MG TABLET PO PRN (21:04)
[2024-03-01] MEDS ORDERED: ACETAMINOPHEN 325 MG TABLET (FP) PO PRN (00:47)
[2024-03-01] MEDS: KETOROLAC TROMETHAMINE 15 MG/ML VIAL IVPUSH PRN (05:35)
[2024-03-01 09:44] LABS: HEMATOCRIT 34.4 % (32.4-45.2); HEMOGLOBIN 11.1 GM/dL (10.7-15.3); MCH 23.2 pg (25.7-33.7); MCHC 32.3 g/dl (32.0-36.0); MEAN CELL VOLUME 71.6 fl (80-96); MEAN PLT VOLUME 7.8 fl (7.5-11.1); PLATELET COUNT 306 10^3/uL (134-434); RDW 19.9 % (11.6-15.6); WHITE BLOOD COUNT 6.9 K/mm3 (4.0-10.0)
[2024-03-01] MEDS: ASPIRIN COATED 81 MG TABLET.EC PO SCH (10:05)
[2024-03-01 10:09] LABS: POTASSIUM 4.5 mmol/L (3.5-5.1)
[2024-03-01 10:16] LABS: BLOOD UREA NITROGEN 14.3 mg/dL (7-18); CALCIUM 9.4 mg/dL (8.5-10.1); MAGNESIUM 2.3 mg/dL (1.8-2.4)
[2024-03-01 10:20] LABS: CREATININE 0.7 mg/dL (0.55-1.3); PHOSPHOROUS 4.1 mg/dL (2.5-4.9)
[2024-03-01] MEDS: dilTIAZem HCL 60 MG TABLET PO SCH (22:10)
[2024-03-02] MEDS ORDERED: REGADENOSON 0.4 MG/5 ML PRE-FILLED SYRINGE IVPUSH ONE (10:08)
[2024-03-02] MEDS: REGADENOSON 0.4 MG/5 ML PRE-FILLED SYRINGE IVPUSH ONE (10:47)
[2024-03-02] MEDS: AMINOPHYLLINE 250 MG/10 ML VIAL IVPUSH ONE (10:50)
[2024-03-02] MEDS ORDERED: AMINOPHYLLINE 250 MG/10 ML VIAL ONE (11:11)
[2024-03-02] MEDS: FAMOTIDINE 20 MG TABLET PO SCH (12:17)
[2024-03-02] MEDS: POLYETHYLENE GLYCOL (HEALTHYLAX) 3350 17 GM PACKET PO SCH (12:18)
[2024-03-02] MEDS ORDERED: MAG HYDROX/AL HYDROX/SIMETH 30 ML UNIT-DOSE CUP PO PRN (12:35)
[2024-03-02 16:21] VITALS: BMI 25.1
[2024-03-02 18:19] VITALS: BP 141/73; PULSE 73; TEMP 97.8
== END 2024-03-02 19:33 | disposition left against medical advice (07) ==
LOC: JER 18:11 → JERBED 22:00 → J5S 02-29 16:40
PROVIDERS: ADMIT Internal Medicine; ATTEND Family Medicine
PROC: 3E0333Z Introduction of Anti-inflammatory into Peripheral Vein, Percutaneous Approach (ICD-10-PCS; principal; 2024-02-28)
PROC: 3E033NZ Introduction of Analgesics, Hypnotics, Sedatives into Peripheral Vein, Percutaneous Approach (ICD-10-PCS; 2024-02-28)
PROC: 3E033GC Introduction of Other Therapeutic Substance into Peripheral Vein, Percutaneous Approach (ICD-10-PCS; 2024-02-28)
PROC: 3E0233Z Introduction of Anti-inflammatory into Muscle, Percutaneous Approach (ICD-10-PCS; 2024-02-28)
DX: R26.2 Difficulty in walking, not elsewhere classified (principal); R52 Pain, unspecified; M48.061 Spinal stenosis, lumbar region without neurogenic claudication; J45.909 Unspecified asthma, uncomplicated; K21.9 Gastro-esophageal reflux disease without esophagitis; E78.5 Hyperlipidemia, unspecified; I10 Essential (primary) hypertension; K22.0 Achalasia of cardia; E05.90 Thyrotoxicosis, unspecified without thyrotoxic crisis or storm; E04.1 Nontoxic single thyroid nodule; F41.9 Anxiety disorder, unspecified; M19.90 Unspecified osteoarthritis, unspecified site; M54.59 Other low back pain; G89.29 Other chronic pain; M25.551 Pain in right hip; M25.552 Pain in left hip; I25.10 Atherosclerotic heart disease of native coronary artery without angina pectoris; Z88.0 Allergy status to penicillin; Z88.2 Allergy status to sulfonamides; Z88.8 Allergy status to other drugs, medicaments and biological substances; Z91.013 Allergy to seafood
CPT/HCPCS: 36415; 72131-TC; 72170-TC-FY; 73502-TC-LT-FY; 73502-TC-RT-FY; 73562-TC-LT-FY; 73562-TC-RT-FY; 78452-TC; 80048; 80053; 82550; 83735; 84100; 85025; 85027; 85610; 85730; 93005; 93010; 93017; 93970-TC; 96372; 96374; 96375; 99285-25; A9502; G0378; J1644; J2785

== ENCOUNTER 2024-03-08 03:36 | Observation (INO) | payer OTHER ==
[2024-03-08 03:43] VITALS: BMI 24.7
[2024-03-08] MEDS ORDERED: FAMOTIDINE 20 MG/50 ML IVPB 20 MG/50 ML MG IVPB ONE ×2 (04:41→14:36)
[2024-03-08] MEDS ORDERED: MAG HYDROX/AL HYDROX/SIMETH 30 ML UNIT-DOSE CUP ONE (04:41)
[2024-03-08] MEDS ORDERED: ONDANSETRON 4 MG/2 ML VIAL ONE ×3 (04:41→23:00)
[2024-03-08] MEDS ORDERED: ACETAMINOPHEN INJECTION 100 ML IVPB ONE ×3 (04:41→23:00)
[2024-03-08] MEDS: ACETAMINOPHEN 1000 MG/100 ML BAG IVPB ONE ×2 (05:05→14:20)
[2024-03-08] MEDS: MAG HYDROX/AL HYDROX/SIMETH 30 ML UNIT-DOSE CUP PO ONE (05:05)
[2024-03-08] MEDS: FAMOTIDINE 20 MG/50 ML IVPB 20 MG/50 ML MG IVPB ONE (05:05)
[2024-03-08] MEDS: ONDANSETRON 4 MG/2 ML VIAL IVPUSH ONE (05:05)
[2024-03-08 05:14] LABS: BASO % 0.8 % (0-2.0); EOS % 1.5 % (0-4.5); HEMATOCRIT 34.3 % (32.4-45.2); HEMOGLOBIN 10.8 GM/dL (10.7-15.3); LYMPH % 14.7 % (8-40); MCH 22.9 pg (25.7-33.7); MCHC 31.4 g/dl (32.0-36.0); MEAN CELL VOLUME 72.8 fl (80-96); MEAN PLT VOLUME 7.8 fl (7.5-11.1); MONO % 5.4 % (3.8-10.2); NEUT % 77.6 % (42.8-82.8); PLATELET COUNT 290 10^3/uL (134-434); RBC 4.72 M/mm3 (3.60-5.2); WHITE BLOOD COUNT 9.8 K/mm3 (4.0-10.0)
[2024-03-08 05:32] LABS: POTASSIUM 4.1 mmol/L (3.5-5.1)
[2024-03-08 05:34] LABS: ALBUMIN 3.3 g/dl (3.4-5.0); BLOOD UREA NITROGEN 11.3 mg/dL (7-18); CALCIUM 9.1 mg/dL (8.5-10.1)
[2024-03-08 05:37] LABS: CREATININE 0.7 mg/dL (0.55-1.3)
[2024-03-08 05:41] LABS: BILIRUBIN,TOTAL 0.5 mg/dL (0.2-1); TOT PROT 7.4 g/dl (6.4-8.2)
[2024-03-08] MEDS ORDERED: morphine SULFATE 4 MG/ML VIAL ONE (06:24)
[2024-03-08] MEDS: morphine CARPU-JECT 4 MG/1 ML DISP.SYRIN IVPUSH ONE (06:43)
[2024-03-08] MEDS ORDERED: CEFEPIME 2 GM/100 ML BAG IVPB ONE (11:10)
[2024-03-08] MEDS: CEFEPIME HCL 2 GM VIAL (RESTRICTED TO ID) IVPB ONE (11:15)
[2024-03-08 12:56] LABS: PH,URINE 6.5 (5.0-8.0); URINE APPEARANCE CLEAR; URINE BILIRUBIN NEGATIVE (NEGATIVE); URINE COLOR YELLOW; URINE GLUCOSE (UA) NEGATIVE (NEGATIVE); URINE KETONE NEGATIVE (NEGATIVE); URINE LEUK ESTERASE NEGATIVE (NEGATIVE); URINE NITRITE NEGATIVE (NEGATIVE); URINE PROTEIN NEGATIVE (NEGATIVE); URINE UROBILINOGEN 0.2 mg/dL (0.2-1.0)
[2024-03-08] MEDS: ONDANSETRON PO SCH (13:34)
[2024-03-08] MEDS: FAMOTIDINE 40 MG/5 ML ORAL SUSPENSION PO SCH (13:34)
[2024-03-08] MEDS ORDERED: GABAPENTIN 300 MG CAPSULE ONE ×2 (13:38→22:31)
[2024-03-08] MEDS: METHIMAZOLE 5 MG TABLET PO SCH (14:23)
[2024-03-08] MEDS: BUSPIRONE HCL 10 MG, BUSPIRONE HCL 5 MG PO SCH (14:23)
[2024-03-08] MEDS: dilTIAZem HCL 60 MG TABLET PO SCH (14:24)
[2024-03-08] MEDS: GABAPENTIN 300 MG CAPSULE PO SCH (14:24)
[2024-03-08] MEDS: NITROGLYCERIN 0.6 MG/HR TD SCH (14:37)
[2024-03-08] MEDS: FAMOTIDINE 20 MG/50 ML IVPB 20 MG/50 ML MG IVPB SCH (16:29)
[2024-03-08] MEDS: LACTATED RINGERS SOLUTION 1,000 ML/1,000 ML INFUS.BAG IV SCH (17:15)
[2024-03-08] MEDS ORDERED: ACETAMINOPHEN 1000 MG/100 ML BAG IVPB PRN (20:20)
[2024-03-08] MEDS ORDERED: hydrOXYzine PAMOATE 25 MG CAPSULE (FP) PO PRN (22:00)
[2024-03-08] MEDS: MOMETASONE FUROATE 220 MCG/IH INHALER IH SCH (22:40)
[2024-03-08] MEDS: ONDANSETRON 4 MG/2 ML VIAL IVPB PRN (23:06)
[2024-03-09] MEDS: GABAPENTIN 250 MG/5 ML ORAL SOLUTION, 470 ML BOTTLE PO SCH (06:41)
[2024-03-09] MEDS: dilTIAZem HCL 30 MG TABLET PO SCH (06:43)
[2024-03-09 08:59] LABS: BASO % 0.6 % (0-2.0); EOS % 3.3 % (0-4.5); HEMATOCRIT 33.4 % (32.4-45.2); HEMOGLOBIN 10.6 GM/dL (10.7-15.3); LYMPH % 16.5 % (8-40); MCH 23.3 pg (25.7-33.7); MCHC 31.7 g/dl (32.0-36.0); MEAN CELL VOLUME 73.6 fl (80-96); MEAN PLT VOLUME 8.1 fl (7.5-11.1); MONO % 6.3 % (3.8-10.2); NEUT % 73.3 % (42.8-82.8); PLATELET COUNT 282 10^3/uL (134-434); RBC 4.54 M/mm3 (3.60-5.2); RDW 20.2 % (11.6-15.6); WHITE BLOOD COUNT 9.7 K/mm3 (4.0-10.0)
[2024-03-09 09:21] LABS: POTASSIUM 3.8 mmol/L (3.5-5.1)
[2024-03-09 09:27] LABS: ALBUMIN 3.2 g/dl (3.4-5.0); BLOOD UREA NITROGEN 12.2 mg/dL (7-18); CALCIUM 9.2 mg/dL (8.5-10.1); MAGNESIUM 2.2 mg/dL (1.8-2.4)
[2024-03-09 09:30] LABS: PHOSPHOROUS 3.6 mg/dL (2.5-4.9)
[2024-03-09 09:31] LABS: CREATININE 0.6 mg/dL (0.55-1.3)
[2024-03-09 09:32] LABS: BILIRUBIN,TOTAL 0.6 mg/dL (0.2-1); TOT PROT 7.1 g/dl (6.4-8.2)
[2024-03-09 10:34] VITALS: BP 128/75; PULSE 68; RESP 18; TEMP 98.2
== END 2024-03-09 14:00 | disposition home or self-care (01) ==
LOC: JER 03:36 → INTOOBSV 10:09 → JERBED 10:09 → UNDOADMOB 10:09 → JERBED 11:03 → INTOOBSV 03-09 04:14 → OBSVTOIN 03-09 04:14 → J7W 03-09 05:10
PROVIDERS: ADMIT Internal Medicine; ATTEND Internal Medicine
PROC: 3E033NZ Introduction of Analgesics, Hypnotics, Sedatives into Peripheral Vein, Percutaneous Approach (ICD-10-PCS; principal; 2024-03-08)
PROC: 3E03329 Introduction of Other Anti-infective into Peripheral Vein, Percutaneous Approach (ICD-10-PCS; 2024-03-08)
DX: K56.41 Fecal impaction (principal); R13.10 Dysphagia, unspecified; I25.10 Atherosclerotic heart disease of native coronary artery without angina pectoris; I10 Essential (primary) hypertension; K21.9 Gastro-esophageal reflux disease without esophagitis; Z83.79 Family history of other diseases of the digestive system; E78.5 Hyperlipidemia, unspecified; Z88.8 Allergy status to other drugs, medicaments and biological substances; E05.90 Thyrotoxicosis, unspecified without thyrotoxic crisis or storm; M54.9 Dorsalgia, unspecified; Z91.040 Latex allergy status; F41.9 Anxiety disorder, unspecified; K22.0 Achalasia of cardia; K22.2 Esophageal obstruction; J45.909 Unspecified asthma, uncomplicated; G89.29 Other chronic pain; E04.9 Nontoxic goiter, unspecified; R11.2 Nausea with vomiting, unspecified
CPT/HCPCS: 0241U-QW; 36415; 71250-TC; 74176-TC; 80053; 81003; 82728; 83540; 83550; 83735; 84100; 84439; 84443; 84484; 85025; 87086; 93005; 93010; 96365; 96366; 96368; 96375; 96376; 99285-25; G0378; J0131

== ENCOUNTER 2024-09-16 00:15 | Emergency (ER) | payer OTHER ==
[2024-09-16 00:34] VITALS: RESP 18; TEMP 97.7; BMI 20.9
[2024-09-16] MEDS ORDERED: LIDOCAINE VISCOUS 2% ORAL/TOP 15 ML UNIT-DOSE CUP ONE (00:48)
[2024-09-16] MEDS: LIDOCAINE VISCOUS 2% ORAL/TOP 15 ML UNIT-DOSE CUP MM ONE (00:56)
[2024-09-16] MEDS ORDERED: LORazepam 2 MG/ML SDV VIAL ONE (01:21)
[2024-09-16] MEDS ORDERED: MAG HYDROX/AL HYDROX/SIMETH 30 ML UNIT-DOSE CUP ONE (01:21)
[2024-09-16] MEDS: MAG HYDROX/AL HYDROX/SIMETH 30 ML UNIT-DOSE CUP PO ONE (01:28)
[2024-09-16] MEDS: LORazepam 2 MG/ML SDV VIAL IM ONE (01:42)
[2024-09-16 03:14] VITALS: BP 123/73; PULSE 82
== END 2024-09-16 03:16 | disposition home or self-care (01) ==
LOC: JER 00:15
PROC: 3E023GC Introduction of Other Therapeutic Substance into Muscle, Percutaneous Approach (ICD-10-PCS; principal; 2024-09-16)
DX: R09.89 Other specified symptoms and signs involving the circulatory and respiratory systems (principal)
CPT/HCPCS: 71045-TC-FY; 96372; 99284-25

== ENCOUNTER 2024-11-25 07:06 | Emergency (ER) | payer OTHER ==
[2024-11-25 07:20] VITALS: BP 146/79; PULSE 96; RESP 18; TEMP 98.4; BMI 21.1
[2024-11-25 08:25] LABS: BASO % 1.2 % (0-2.0); EOS % 1.2 % (0-4.5); HEMATOCRIT 33.5 % (32.4-45.2); HEMOGLOBIN 10.4 GM/dL (10.7-15.3); LYMPH % 24.6 % (8-40); MCH 21.9 pg (25.7-33.7); MCHC 31.1 g/dl (32.0-36.0); MEAN CELL VOLUME 70.3 fl (80-96); MEAN PLT VOLUME 7.4 fl (7.5-11.1); MONO % 7.5 % (3.8-10.2); NEUT % 65.5 % (42.8-82.8); PLATELET COUNT 308 10^3/uL (134-434); RBC 4.76 M/mm3 (3.60-5.2); WHITE BLOOD COUNT 8.8 K/mm3 (4.0-10.0)
[2024-11-25 08:31] LABS: INR 1.14 (0.83-1.09); PROTHROMBIN TIME (PATIENT) 12.4 SEC (9.7-13.0)
[2024-11-25 08:35] LABS: ACTIVATED PTT 33.2 SECONDS (25.2-36.5)
[2024-11-25 08:51] LABS: POTASSIUM 4.1 mmol/L (3.5-5.1)
[2024-11-25 08:53] LABS: ALBUMIN 3.6 g/dl (3.4-5.0); CALCIUM 9.4 mg/dL (8.5-10.1)
[2024-11-25 08:54] LABS: BLOOD UREA NITROGEN 14.5 mg/dL (7-18)
[2024-11-25 08:56] LABS: CREATININE 0.8 mg/dL (0.55-1.3)
[2024-11-25 08:58] LABS: BILIRUBIN,TOTAL 0.4 mg/dL (0.2-1); TOT PROT 7.6 g/dl (6.4-8.2)
[2024-11-25 09:05] LABS: ANISOCYTOSIS 2+
== END 2024-11-25 11:25 | disposition home or self-care (01) ==
LOC: JER 07:06
DX: R00.2 Palpitations (principal); M62.838 Other muscle spasm
CPT/HCPCS: 36415; 71045-TC-FY; 80053; 83690; 83735; 84100; 84439; 84443; 84481; 84484; 85025; 85610; 85730; 86850; 86900; 86901; 93005; 93010; 99285-25